=== PATIENT | female | born 1950 | race Caucasian/White ===

== ENCOUNTER 2022-09-24 10:57 | Outpatient (OUT) | payer MEDICARE, SELFPAY ==
--- NOTE | 2022-09-24 10:59 | VEIN_ITS ---
Patient: KENAN CHASE Exam Date: 09/24/2022 : 1950 Gender:F Ordering : DR ALFRED GRIFFITH M.D. Admission #: [id number] Family : Order #: [id number] CLICK HERE TO VIEW EXAM RADIOLOGY REPORT PROCEDURE: [facility] - OFFICE VISIT FOLLOW UP COMPARISON: None. PROGRESS NOTES: The patient reports that some improvement in left anterior espana wound, but wound has not cleared. The patient has been cleaning wound area and applying hydrocortisone cream and antibiotic cream. Physical exam demonstrates a 1.5 cm oval lesion with yellowish scab and mild surrounding erythema; no pus or drainage. IMPRESSION: 1. Since wound has persisted, patient will be placed on an antibiotic (Keflex 500 mg p.o. b.i.d. times 10 days). 2. Patient will be following up with wound clinic for left leg issues. Patient was instructed to have wound center also assess her right leg if wound is still present. Patient will follow-up with us at the veins center as needed. Nurse notes, history and physical were reviewed and confirmed, see attached forms. The nurse was present throughout the physical exam and consultation Dictated by: Kedar Reich M.D. on 09/24/2022 at 11:45 Approved by: Kedar Reich M.D. on 09/24/2022 at 11:49
== END 2022-09-24 10:58 ==
LOC: VC 10:57
PROVIDERS: PCP Radiology Diagnostic Radiology; Visit Provider Radiology Diagnostic Radiology
DX: I83.813 Varicose veins of bilateral lower extremities with pain (principal)
CPT/HCPCS: G0463

== ENCOUNTER 2022-09-30 10:51 | Outpatient (OUT) | payer MEDICARE, SELFPAY | END 2022-09-30 10:52 | disposition home or self-care (01) | LOC: WC 10:51 | PROVIDERS: PCP Family Medicine; Visit Provider Podiatrist Foot & Ankle Surgery | DX: L89.512 Pressure ulcer of right ankle, stage 2 (principal) | CPT/HCPCS: 11042; A6213 ==

== ENCOUNTER 2022-10-10 10:39 | Outpatient (OUT) | payer MEDICARE, SELFPAY | END 2022-10-10 10:40 | disposition home or self-care (01) | LOC: WC 10:39 | PROVIDERS: PCP Family Medicine; Visit Provider Podiatrist Foot & Ankle Surgery | DX: L89.512 Pressure ulcer of right ankle, stage 2 (principal); M13.80 Other specified arthritis, unspecified site; R09.89 Other specified symptoms and signs involving the circulatory and respiratory systems; K21.9 Gastro-esophageal reflux disease without esophagitis; I10 Essential (primary) hypertension; E03.9 Hypothyroidism, unspecified; I87.2 Venous insufficiency (chronic) (peripheral); W01.198A Fall on same level from slipping, tripping and stumbling with subsequent striking against other object, initial encounter | CPT/HCPCS: 97605 ==

== ENCOUNTER 2022-10-24 10:57 | Outpatient (OUT) | payer MEDICARE, SELFPAY | END 2022-10-24 10:58 | disposition home or self-care (01) | LOC: WC 10:57 | PROVIDERS: PCP Family Medicine; Visit Provider Podiatrist Foot & Ankle Surgery | DX: L89.512 Pressure ulcer of right ankle, stage 2 (principal) | CPT/HCPCS: A6213; G0463 ==

== ENCOUNTER 2022-10-31 10:15 | Outpatient (OUT) | payer MEDICARE, SELFPAY | END 2022-10-31 10:16 | disposition home or self-care (01) | LOC: WC 10:15 | PROVIDERS: PCP Family Medicine; Visit Provider Podiatrist Foot & Ankle Surgery | DX: L89.512 Pressure ulcer of right ankle, stage 2 (principal) | CPT/HCPCS: A6213; G0463 ==

== ENCOUNTER 2022-11-18 13:16 | Outpatient (OUT) | payer MEDICARE, SELFPAY | END 2022-11-18 13:17 | disposition home or self-care (01) | LOC: WC 13:16 | PROVIDERS: PCP Family Medicine; Visit Provider Podiatrist Foot & Ankle Surgery | DX: L89.512 Pressure ulcer of right ankle, stage 2 (principal) | CPT/HCPCS: A6213; G0463 ==

== ENCOUNTER 2022-11-27 11:12 | Outpatient (OUT) | payer MEDICARE, SELFPAY ==
[2022-11-27 11:45] LABS: Bacteria Urine TRACE #/HPF (NONE SEEN); Cast Seen? NONE SEEN #/LPF (NONE SEEN); Crystals Seen? None Seen #/HPF (None Seen); Mucus Urine NONE SEEN (NONE SEEN); RBC Urine 0-2 #/HPF (0-2); Squamous Epithelial Cell Urine FEW #/LPF (NONE/RARE); Urine Culture Indicated ALREADY ORDERED
== END 2022-11-27 11:13 | disposition home or self-care (01) ==
LOC: LAB 11:14
PROVIDERS: PCP Family Medicine; Visit Provider Family Medicine
DX: N39.0 Urinary tract infection, site not specified (principal)
CPT/HCPCS: 81001; 87086

== ENCOUNTER 2022-12-05 09:10 | Outpatient (OUT) | payer MEDICARE, SELFPAY | END 2022-12-05 09:11 | disposition home or self-care (01) | LOC: WC 09:10 | PROVIDERS: PCP Family Medicine; Visit Provider Podiatrist Foot & Ankle Surgery | DX: L89.512 Pressure ulcer of right ankle, stage 2 (principal) | CPT/HCPCS: 11042; A6213 ==

== ENCOUNTER 2023-01-02 10:14 | Outpatient (OUT) | payer MEDICARE, SELFPAY | END 2023-01-02 10:15 | disposition home or self-care (01) | LOC: WC 10:14 | PROVIDERS: PCP Family Medicine; Visit Provider Podiatrist Foot & Ankle Surgery | DX: L89.512 Pressure ulcer of right ankle, stage 2 (principal) | CPT/HCPCS: A6213; G0463 ==

== ENCOUNTER 2023-01-07 07:37 | Outpatient (RCR) | payer MEDICARE, SELFPAY ==
[2023-01-07 10:50] VITALS: BP 131/84; PULSE 100; RESP 20; TEMP 36.2; O2SAT 97
--- NOTE | 2023-01-07 11:08 | PC.NURSE ---
1050: Pt to [facility] amb. using walker to ambulate. Seated on edge of bed. VSS. Pt. removes bottoms and to supine position on bed. Using sterile technique, pt. straight cath'd for moderate amount clear yellow urine. Speicimen collected and sent to lab. Pt. tolerated with minimal c/o discomfort. Given wash cloth and towel to clean perineum. 1108: Pt. d/c'd amb. to home. Denies c/o.
== END 2023-01-17 23:59 | disposition home or self-care (01) ==
LOC: INF 07:37
PROVIDERS: PCP Family Medicine; Visit Provider Family Medicine
DX: R30.0 Dysuria (principal); R35.89 Other polyuria
CPT/HCPCS: 51701; 87086

== ENCOUNTER 2023-01-27 15:39 | Outpatient (OUT) | payer MEDICARE, SELFPAY | END 2023-01-27 15:40 | disposition home or self-care (01) | LOC: WC 15:39 | PROVIDERS: PCP Family Medicine; Visit Provider Podiatrist Foot & Ankle Surgery | DX: L89.512 Pressure ulcer of right ankle, stage 2 (principal); L89.892 Pressure ulcer of other site, stage 2 | CPT/HCPCS: 11042; A6213 ==

== ENCOUNTER 2023-02-03 10:18 | Outpatient (OUT) | payer MEDICARE, SELFPAY ==
--- NOTE | 2023-02-03 10:27 | MR_ITS ---
The [address] [address] Patient Name: KENAN CHASE MRN: [id number] date: 1950 Sex: F Assigned Patient Location: MRI Current Patient Location: MRI Accession/Order Number: [id number] Exam Date: 02/03/2023 10:45 Report Date: 02/03/2023 14:38 At the request of: SARA VICK Procedure: MR lumbar spine wo con Exam: MR scan of the lumbar spine without contrast. TECHNIQUE: Sagittal T1, DONNA T2, STIR, axial T1 and T2 images without contrast performed through the lumbar spine. COMPARISON: MR scan performed 12/09/2021. FINDINGS: Facet screws and Hollins rods T11, T12, L1, L3, and L4. Left lateral threaded screws and plate L2, L3. Fusion of the L4 and L5 vertebral bodies. Large air-fluid level within the disc space at L5-S1. Bilateral laminectomy defect L2, L3, L4. Bilateral laminotomy defect L2, L3, L4. Bilateral foraminal stenosis L5-S1. L5-S1: Facet arthropathy and diffuse disc bulge and trefoil thecal sac. L4-L5: No evidence of stenosis. L3-L4: No evidence of stenosis. L2-L3: No evidence of stenosis. L1-L2: No evidence of stenosis. When compared to the prior examination the air-fluid level within the disc space at L5-S1 is new. The large disc protrusion is new. MR/MR lumbar spine wo con IMPRESSION: 1. Large central disc protrusion at the L5-S1 level superimposed on facet arthropathy and trefoil thecal sac. 2. Bilateral foraminal stenosis L5-S1. 3. Extensive postsurgical change lumbar spine without central spinal canal stenosis. Electronically authenticated by: Madeleine IRAHETA Date: 02/03/2023 14:38
== END 2023-02-03 10:19 | disposition home or self-care (01) ==
LOC: MRI 10:18
PROVIDERS: PCP Family Medicine; Visit Provider Family Medicine
DX: M48.061 Spinal stenosis, lumbar region without neurogenic claudication (principal); M51.27 Other intervertebral disc displacement, lumbosacral region; M48.07 Spinal stenosis, lumbosacral region
CPT/HCPCS: 72148

== ENCOUNTER 2023-02-16 11:16 | Outpatient (OUT) | payer MEDICARE, SELFPAY | END 2023-02-16 11:17 | disposition home or self-care (01) | LOC: WC 11:17 | PROVIDERS: PCP Family Medicine; Visit Provider Physician Assistant | DX: L89.892 Pressure ulcer of other site, stage 2 (principal); L89.512 Pressure ulcer of right ankle, stage 2 | CPT/HCPCS: 11042; A6213 ==

== ENCOUNTER 2023-03-10 09:39 | Outpatient (OUT) | payer MEDICARE, SELFPAY | END 2023-03-10 09:40 | disposition home or self-care (01) | LOC: WC 09:39 | PROVIDERS: PCP Family Medicine; Visit Provider Podiatrist Foot & Ankle Surgery | DX: L89.512 Pressure ulcer of right ankle, stage 2 (principal); L84 Corns and callosities; I73.89 Other specified peripheral vascular diseases | CPT/HCPCS: 11042; A6213 ==

== ENCOUNTER 2023-04-06 13:19 | Outpatient (OUT) | payer MEDICARE, SELFPAY | END 2023-04-06 13:20 | disposition home or self-care (01) | LOC: WC 13:19 | PROVIDERS: PCP Family Medicine; Visit Provider Physician Assistant | DX: L97.512 Non-pressure chronic ulcer of other part of right foot with fat layer exposed (principal); L89.512 Pressure ulcer of right ankle, stage 2 | CPT/HCPCS: 11042; A6213 ==

== ENCOUNTER 2023-04-28 10:57 | Outpatient (OUT) | payer MEDICARE, SELFPAY ==
--- OUTSIDE RECORDS SUMMARY | 2023-04-28 11:01 | XMS_ITS | CCD ---
Author Name Unknown Address [address] [place] [address] [facility] Care Team Providers Care Auto Winder Name Role Phone Praveen Lopez Unavailable Unavailable BRUCE MATHEW Unavailable Unavailable SARA VICK Unavailable Unavailable PHYSICIAN, DEFAULT Unavailable Unavailable PHYSICIAN, DEFAULT Unavailable Unavailable SARA VICK Unavailable Unavailable Sara Vick~[phone] UNKNOWN Admitting Unavailable Sara Vick~[phone] UNKNOWN Attending Unavailable Sara Vick~[phone] UNKNOWN Referring Unavailable Sara Vick Primary Care Provider [phone] Trino Yoo Attending Provider Larry Brown Unavailable Sara Vick Primary Care Physician [phone] Lynn Salas Unavailable Unavailable Liam, Flor Unavailable Unavailable ADELE FLEMING Attending Unavailable SARA VICK Primary Care Unavailable MD Sara Vick Primary Care Provider [phone] MD Sara Vick Attending Provider DEEPALI JANSEN Consulting Unavailable DEEPALI JANSEN Admitting Unavailable DEEPALI JANSEN Attending Unavailable DR SARA OVERTON Primary Care Unavailable ADELE FLEMING Attending Unavailable ADELE FLEMING Admitting Unavailable DR SARA OVERTON Primary Care Unavailable ADELE FLEMING Admitting Unavailable ADELE FLEMING Attending Unavailable DR SARA OVERTON Primary Care Unavailable DR SARA OVERTON Consulting Unavailable NICANOR Mohan, DR RUIZ Primary Care Unavailable DR SARA OVERTON Admitting Unavailable NICANOR Mohan, DR RUIZ Attending Unavailable ANABEL, SHAWANDA Admitting Unavailable ANABEL, SHAWANDA Attending Unavailable ANABEL, SHAWANDA Consulting Unavailable HOY ., DR RUIZ Primary Care Unavailable READERSARA Consulting Unavailable HIGHLANDER, PETER D Admitting Unavailable HIGHLANDER, PETER D Attending Unavailable HOY ., DR RUIZ Primary Care Unavailable HIGHLANDER, PETER D Admitting Unavailable HIGHLANDER, PETER D Attending Unavailable HOY ., DR RUIZ Primary Care Unavailable WEST, DR ALFRED Deal Consulting Unavailable WEST, DR ALFRED Deal Admitting Unavailable WEST, DR ALFRED Deal Attending Unavailable HOY ., DR RUIZ Primary Care Unavailable WEST, DR ALFRED Deal Consulting Unavailable WEST, DR ALFRED Deal Admitting Unavailable WEST, DR ALFRED Deal Attending Unavailable HOY ., DR RUIZ Primary Care Unavailable WEST, DR ALFRED Deal Attending Unavailable WEST, DR ALFRED Deal Consulting Unavailable WEST, DR ALFRED Deal Admitting Unavailable HOY ., DR RUIZ Primary Care Unavailable WEST, DR ALFRED Deal Attending Unavailable WEST, DR ALFRED Deal Consulting Unavailable WEST, DR ALFRED Deal Admitting Unavailable HOY ., DR RUIZ Primary Care Unavailable WEST, DR ALFRED eDal Attending Unavailable WEST, DR ALFRED Deal Consulting Unavailable WEST, DR ALFRED Deal Admitting Unavailable HOY ., DR RUIZ Primary Care Unavailable WEST, DR ALFRED Deal Consulting Unavailable WEST, DR ALFRED Deal Admitting Unavailable WEST, DR ALFRED Deal Attending Unavailable HOY ., DR RUIZ Primary Care Unavailable ZIEBER, DR JULIO Wu Consulting Unavailable WEST, DR ALFRED Deal Consulting Unavailable ELZBIETA, DEEPALI Admitting Unavailable ELZBIETADEEPALI Attending Unavailable HOY ., DR RUIZ Primary Care Unavailable ELZBIETADEEPALI Consulting Unavailable HIGHLANDER, ADELE Means Attending Unavailable HIGHLANDER, PETER D Admitting Unavailable HOY ., DR RUIZ Primary Care Unavailable WEST, DR ALFRED Deal Attending Unavailable WEST, DR ALFRED Deal Consulting Unavailable WEST, DR AFLRED Deal Admitting Unavailable HOY ., DR RUIZ Primary Care Unavailable ZIEBER, DR JULIO Wu Consulting Unavailable WEST, DR ALFRED Deal Attending Unavailable WEST, DR ALFRED Deal Consulting Unavailable WEST, DR ALFRED Deal Admitting Unavailable HOY ., DR RUIZ Primary Care Unavailable REINECK, DR AKIL Salvador Consulting Unavailabl e REINECK, DR AKIL Salvador Admitting Unavailabl e REINECK, DR AKIL Salvador Attending Unavailabl e HOY ., DR RUIZ Primary Care Unavailable MARI LORENZO Consulting Unavailable HOY ., DR RUIZ Consulting Unavailable HOY ., DR SARA Admitting Unavailable HOY ., DR RUIZ Attending Unavailable HOY ., DR RUIZ Primary Care Unavailable HIGHLANDER, PETER D Admitting Unavailable HIGHLANDER, PETER D Attending Unavailable HOY ., DR RUIZ Primary Care Unavailable HIGHLANDER, PETER D Admitting Unavailable HIGHLANDER, PETER D Attending Unavailable HOY ., DR RUIZ Primary Care Unavailable HIGHLANDER, PETER D Attending Unavailable HIGHLANDER, PETER D Admitting Unavailable HOY ., DR RUIZ Primary Care Unavailable HIGHLANDER, PETER D Admitting Unavailable HIGHLANDER, PETER D Attending Unavailable HOY ., DR RUIZ Primary Care Unavailable HIGHLANDER, PETER D Admitting Unavailable HIGHLANDER, PETER D Attending Unavailable HIGHLANDER, PETER D Consulting Unavailable HOY ., DR RUIZ Primary Care Unavailable MAGNOLIA ., NIKHIL PARKS Consulting Unavailable EARL TAYLOR Consulting Unavailable GENESIS II, DENIS Consulting Unavailable ERICK ., PO Admitting Unavailable ERICK ., PO Attending Unavailable ZIEBER, DR JULIO Wu Consulting Unavailable HOY ., DR RUIZ Primary Care Unavailable ERICK ., PO Consulting Unavailable HIGHLANDER, PETER D Admitting Unavailable HIGHLANDER, PETER D Attending Unavailable HIGHLANDER, PETER D Consulting Unavailable HOY ., DR RUIZ Primary Care Unavailable HOY ., DR RUIZ Consulting Unavailable HOY ., DR RUIZ Admitting Unavailable HOY ., DR RUIZ Attending Unavailable HOY ., DR RUIZ Primary Care Unavailable HIGHLANDER, PETER D Attending Unavailable HIGHLANDER, PETER D Admitting Unavailable WEST, DR ALFRED Deal Consulting Unavailable HOY ., DR RUIZ Primary Care Unavailable ZIEBER, DR JULIO Wu Consulting Unavailable HIGHLANDER, PETER D Consulting Unavailable HIGHLANDER, PETER D Attending Unavailable HIGHLANDER, PETER D Admitting Unavailable ZIEBER, DR JULIO Wu Consulting Unavailable HOY ., DR RUIZ Primary Care Unavailable HIGHLANDER, PETER D Consulting Unavailable PERFECTO BURCH Referring Unavailable PERFECTO BURCH Attending Unavailable ASRA VIKC Primary Care Unavailable PERFECTO BURCH Attending Unavailable SARA VICK Primary Care Unavailable Sorin DICKERSON Referring Unavailable PERFECTO BURCH Attending Unavailable SARA VICK Primary Care Unavailable PERFECTO BURCH Referring Unavailable Sara Vick MD Primary Care Provider Julio Ferrara Consulting Unavailable Gunner Alcazarinder S Admitting Unavailable Francisco Alcazar S Attending Unavailable Julio Ferrara Consulting Unavailable Hepzibah, Julio Consulting Unavailable Hepzibah, Julio Consulting Unavailable Hepzibah, Julio Consulting Unavailable Hepzibah, Julio Consulting Unavailable Hepzibah, Julio Consulting Unavailable Hepzibah, Julio Consulting Unavailable Hepzibah, Julio Consulting Unavailable Wm Nagy Attending Unavailable Flavio Castillo Attending Unavailable Alley Naranjo Admitting Unavailable WindJacque cramericia Attending Unavailable Jose A Alley Referring Unavailable Dominique Shane Unavailable MD Sara Vick Primary Care Provider [phone] Larry Brown Attending Provider Sara Vick Primary Care Unavailable Larry Brown Attending Unavailable Larry Brown Admitting Unavailable Sara Vick Primary Care Unavailable Sara Vick Admitting Unavailable Sara Vick Attending Unavailable Sara Vick Primary Care Unavailable Deepali Jansen Attending Unavailable Deepali Jansen Admitting Unavailable Sara Vick Primary Care Unavailable Larry Brown Attending Unavailable Larry Brown Admitting Unavailable Unavailable Unavailable Unavailable Allergies Allergy Classification Reported Allergen(s) Allergy Type Date of Onset Reaction(s) Facility (1 source) Sulfa Antibiotics 06-19-19 18 [facility] (6 sources) Sulfonamides (Antibiotic); Translations: [SULFA (SULFONAMIDE ANTIBIOTICS)] Propensity to adverse reactions to drug (disorder) 07-17-19 07 [facility] Repository (3 sources) Sulfonamides (Antibiotic) Drug allergy (disorder) 08-02-19 10 [facility] Repository (4 sources) Sulfamethoxazole; Translations: [sulfamethoxazole ] Drug Allergy Cutaneous eruption (morphologic abnormality) [facility] Repository (2 sources) Sulfur; Translations: [Sulfur] Drug Allergy [facility] Repository (14 sources) Sulfacetamide Drug Allergy 09-19-19 Rash [employer] Other (2 sources) metroNIDAZOLE Drug Allergy 09-19-19 23 Dyspepsia [facility] Medications Current Medications Medication Drug Class(es) Dates Sig (Normalized) Sig (Original) acetaminophen 325 mg oral tablet (3 sources) Start: 09-14-2019 take 2 tablets by mouth every four hours as needed for pain Tylenol 325 mg Tab 650 mg = 2 tab(s), Oral, q4hr, PRN Breakthrough Pain, Refills(s) 0 Start Date: 09/14/19 Status: Ordered Start: 06-18-2017 take 2 tablets by mo [facility] every four hours as needed for pain Tylenol Tablet 325 MG 2 tablet Tablet Oral Give 2 tablet by mouth every 4 hours as needed for take as needed for mild pain or fever 06/18/2017 20:15:00 acetaminophen 325 mg / HYDROcodone bitartrate 5 mg oral tablet (10 sources) Opioid Agonist Start: 04-23-2023 take 1 tablet by mouth once daily as needed HYDROcodone-Acetaminophen 5-325 MG 1 tablet as needed Orally once daily (*do not fill until 04/23/22) for 30 days G89.29 Chronic pain Apr, Active Start: 03-25-2023 Hydrocodone-Ac etaminophen Active 1 TAB PO As Directed March 25, 2023 12:00am Start: 03-06-2023 take 1 tablet by donna once daily as needed HYDROcodone-Acetaminophen 5-325 MG 1 tab let as needed Orally daily (*do not fill until 03/12/2023) for 30 days Feb, Active Start: 02-10-2023 take 1 tablet by donna th every twenty-four hours HYDROcodone-Acetaminophen 5-325 MG 1 tab let as needed Orally daily for 30 days G89.29 Chronic pain Jan, Active Start: 12-12-2022 take 1 tablet by donna every twenty-four hours HYDROcodone-Acetaminophen 5-325 MG 1 tab let as needed Orally daily for 30 days Dec, Active Start: 03-08-2022 [place] 325 mg-5 mg oral tablet 1 tab(s), Oral, q4hr for pain, 12 tab(s), Refill(s) 0, [facility]/pharmacy #[id number], 172, cm, 03/08/22 13:49:00 EST, Height/Length Dosing, 103.6, kg, 03/08/22 13:49:00 EST, Weight Dosing Start Date: 03/08/22 Status: Ordered Albuterol (Eqv-Ventolin HFA) 90 mcg/inh inhalation aerosol (1 source) Start: 07-26-2022 take 2 puff(s) by inhalation every six hours Albuterol (Eqv-Ventolin HFA) 90 mcg/inh inhalation aerosol 2 puff(s), Inhalation, q6hr Shortness of breath or wheezing, Refill(s) 0 Start Date: 07/26/22 Status: Ordered alendronic acid 70 mg oral tablet (15 sources) Bisphosphonate Start: 07-08-2022 alendronate 70 MG tablet take 1 tablet by mouth once damion y Alendronate Sodium 70 MG 1 tablet 30 minutes before the first food, beverage or medicine of the day with plain water Orally Active aspirin 81 mg delayed release oral tablet (15 sources) Platelet Aggregation Inhibitor, Nonsteroidal Anti-inflammatory Drug Start: 07-27-2022 take 1 tablet by mouth once daily aspirin 81 mg Oral EC Tab 81 mg = 1 tab(s), Oral, Daily, # 30 tab(s), Refills(s) 0, Pharmacy: [facility]/pharmacy #[id number], 172.7, cm, 07/26/22 11:43:00 EDT, Height/Length Dosing, 93.5, kg, 07/27/22 10:37:00 EDT, Weight Dosing Start Date: 07/27/22 Status: Ordered Start: 05-08-2020 End: 09-10-2022 take 81 mg by mouth twice daily Aspirin Discontinued 81 MG PO Twice daily 0 May 08, 2020 12:00am September 10, 2022 10:47am Start: 05-02-2020 Aspirin 81 MG 1 tablet daily, starting day after discharge from hospital Orally twice a day for 14 days *DO NOT START PRIOR TO SURGERY. To be used post op TKA for DVT prophylaxis Apr, Not-Taking/PRN Biscolax Suppository (1 source) Start: 06-18-2017 Biscolax Suppository 1 suppository Suppository Rectal Insert 1 suppository rectally every 24 hours as needed for CONSTIPATION IF MIRALAX NOT EFFECTIVE 06/18/2017 17:15:00 cefadroxil 500 mg oral capsule (1 source) Cephalosporin Antibacterial Start: 07-26-2022 take 1 capsule by mouth every twelve hours cefadroxil 500 mg Cap 500 mg = 1 cap(s), Oral, q12hr, Refills(s) 0 Start Date: 07/26/22 Status: Ordered cetirizine hydrochloride 10 mg oral tablet (1 source) Histamine-1 Receptor Antagonist Start: 06-18-2017 take 1 tablet by mouth every twenty-four hours as needed ZyrTEC Allergy Tablet 10 MG 10 mg Tablet Oral Give 10 mg by mouth every 24 hours as needed for take as needed for allergy symptoms take as needed at bedtime 06/18/2017 20:15:00 cholecalciferol 0.025 mg oral capsule (19 sources) Vitamin D Start: 04-24-2020 take 1 capsule by mouth once daily Cholecalciferol (Vitamin D3) (Vitamin D3) 25 mcg (1,000 unit) Capsule Active 25 MCG PO Daily April 24, 2020 12:00am Start: 06-19-2017 take 1 tablet by donna once daily Vitamin D3 Tablet 2000 UNIT 1 tablet Tablet Oral Give 1 tablet by mouth one time a day for supplement 06/19/2017 9:00:00 take 1 capsule by mo [facility] every twenty-four hours Vitamin D3 50 MCG (2000 UT) 1 capsule Orally Once a day Active Collagenase 250 UNIT/GM (9 sources) Collagenase 250 UNIT/GM 1 application Externally Once a day Active cyclobenzaprine hydrochloride 10 mg oral tablet (1 source) Muscle Relaxant Start: take 1 tablet by mouth every eight hours as needed for muscle spasms Cyclobenzaprine HCl Tablet 10 MG 10 mg Tablet Oral GIVE ONE TAB BY MOUTH EVERY 8 HOURS NEEDED FOR MUSCLE SPASMS 06/18/2017 20:30:00 diclofenac sodium 75 mg delayed release oral tablet (1 source) Nonsteroidal Anti-inflammatory Drug Start: take 1 tablet by mouth twice daily Diclofenac Sodium Tablet Delayed Release 75 MG 1 tablet Tablet Delayed Release Oral GIVE ONE TAB BY MOUTH TWICE DAILY FOR ANTI INFLAMMATORY 06/19/2017 9:00:00 Diff-Stat Capsule (1 source) Start: take 1 capsule by mouth once daily Diff-Stat Capsule 1 capsule Capsule Oral Give 1 capsule orally one time a day for Prophylatic 06/19/2017 9:00:00 esomeprazole 40 mg delayed release oral capsule (12 sources) Proton Pump Inhibitor take 1 capsule by mouth every twenty-four hours NexIUM 40 MG 1 capsule Orally Once a day Active gabapentin 600 mg oral tablet (20 sources) Anti-epileptic Agent Start: 01-05-2 021 take 1200 mg by mouth twice daily Gabapentin Active 1200 MG PO Twice daily April 24, 2020 12:00am Start: 06-19-2017 take 1 tablet by donna th twice daily gabapentin 600 mg Tab 600 mg = 1 tab(s), Oral, BID Start Date: 06/26/17 Status: Ordered hydrOXYzine pamoate 25 mg oral capsule (2 sources) Antihistamine Start: 05-08-2020 take 1 capsule by mouth every six hours Hydroxyzine Pamoate (Vistaril) 25 mg capsule Active 25 MG PO Q6H May 08, 2020 12:00am lidocaine 0.05 mg/mg medicated patch (8 sources) Antiarrhythmic, Amide Local Anesthetic Start: 12-12-2022 Lidoderm 5 % 1 patch remove after 12 hours Externally Once a day for 30 days Nov, Active losartan potassium 100 mg oral tablet (20 sources) Angiotensin 2 Receptor Mike Start: 06-19-2017 take 100 mg by mouth once daily Losartan Active 100 MG PO Daily April 24, 2020 12:00am Losartan [facility] um Active meloxicam 15 mg oral tablet (20 sources) Nonsteroidal Anti-inflammatory Drug Start: 07-01-2018 take 15 mg by mouth once daily Meloxicam Active 15 MG PO Daily April 24, 2020 12:00am pantoprazole 40 mg delayed release oral tablet (20 sources) Proton Pump Inhibitor Start: 09-14-2019 take 40 mg by mouth once daily Pantoprazole Active 40 MG PO Daily April 24, 2020 12:00am Start: 06-19-2017 take 1 tablet by donna th once daily Pantoprazole Sodium Tablet Delayed Release 40 MG 40 mg Tablet Delayed Release Oral GIVE ONE TAB BY MOUTH EVERY DAY FOR ULCER MEDICATIONS 06/19/2017 9:00:00 polyethylene glycol 3350 (1 source) Osmotic Laxative Start: 06-19-2017 take 17 g by mouth once daily for constipation GlycoLax Powder 17 gram Powder Oral Give 17 gram by mouth one time a day for constipation (in Liquid) 06/19/2017 9:00:00 purified protein derivative of tuberculin (2 sources) Tuberculosis Skin Test, Skin Test Antigen Start: 06-18-2017 End: 07-02-2017 Tuberculin PPD Solution 5 UNIT/0.1ML 0.1 ml Solution Intradermal Inject 0.1 ml intradermally one time a day every 9 day(s) for PPD Test for 2 Weeks Read in 48 hours. Repeat in 9 days if no reaction. 06/18/2017 21:00:00 07/02/2017 20:59:00 Start: 06-18-2017 End: 06-20-2017 Tuberculin PPD Solution 5 UN IT/0.1ML 0.1 ml Solution Intradermal Inject 0.1 ml intradermally one time a day every 9 day(s) for PPD Test for 2 Weeks Read in 48 hours. Repeat in 9 days if no reaction. 06/18/2017 21:00:00 06/20/2017 0:07:00 Aborted levothyroxine sodium 0.125 mg oral tablet (20 sources) l-Thyroxine Start: 04-24-2020 take 125 ug by mouth once daily Levothyroxine Active 125 MCG PO Daily April 24, 2020 12:00am Start: 06-26-2017 take 1 capsule by mo [facility] once daily levothyroxine 125 mcg (0.125 mg) oral capsule 125 microgram = 1 cap(s), Oral, Daily Start Date: 06/26/17 Status: Ordered Start: 06-19-2017 take 1 tablet by donna once daily for thyroid dysfunction Synthroid Tablet 125 MCG 125 mcg Tablet Oral GIVE ONE TAB BY MOUTH EVERY DAY FOR THYROID AGENT 06/19/2017 6:00:00 take 1 tablet by donna once daily in the morning Levothyroxine Sodium 125 MCG 1 tablet in the morning on an empty stomach Orally Once a day Active tiZANidine 4 mg oral tablet (16 sources) Central alpha-2 Adrenergic Agonist Start: 07-26-2022 take 2 tablets by mouth every eight hours as needed for muscle spasms tiZANidine 4 mg Tab 8 mg = 2 tab(s), Oral, q8hr, PRN Spasm, Refills(s) 0 Start Date: 07/26/22 Status: Ordered Start: 06-19-2017 take 2 tablets by mo ut twice daily Zanaflex Tablet 4 MG 2 tablet Tablet Oral GIVE 2 TABS (8MG) BY MOUTH TWICE DAILY FOR MUSCLOSKELETAL 06/19/2017 9:00:00 take 1 capsule by mo [facility] every eight hours tiZANidine HCl 4 MG 1 capsule as needed Orally Three times a day Active traMADol hydrochloride 50 mg oral tablet (1 source) Opioid Agonist Start: 06-18-2017 take 1 tablet by mouth every twelve hours as needed for pain TraMADol HCl Tablet 50 MG 1 tablet Tablet Oral Give 1 tablet by mouth every 12 hours as needed for as needed for pain 06/18/2017 20:30:00 vitamin b12 1 mg/ml injectable solution (18 sources) Vitamin B12 Start: 04-24-2020 inject 1000 ug by subcutaneous injection every 30 days Cyanocobalamin (Vitamin B-12) Active 1000 MCG SUBCUT Q30D April 24, 2020 12:00am Start: 09-14-2019 cyanocobalamin 1000 mcg/mL Inj 1,000 microgram, IntraMuscular, qMonth, Refills(s) 0 Start Date: 09/14/19 Status: Ordered Cyanocobalamin 1 000 MCG/ML 1 ml Orally 1 x per month injection Active Completed/Discontinued Medications Medication Drug Class(es) Dates Sig (Normalized) Sig (Original) acetaminophen 325 mg / oxyCODONE hydrochloride 5 mg oral tablet (3 sources) Opioid Agonist Start: 05-08-2020 End: 09-10-2022 take 1 tablet by mouth every four to six hours Oxycodone-Acetamino phen (Percocet) 5-325 mg tablet Discontinued 1 - 2 TAB PO EVERY 4-6 HOURS 40 7 May 08, 2020 September 10, 2022 10:49am Start: 06-18-2017 take 1 tablet by donna th every six hours as needed for pain and pain, then take 2 tablets by mouth every six hours as needed for pain and pain Percocet Tablet 5-325 MG Tablet Oral Give 1 tablet by mouth every 6 hours as needed for as needed for pain do not exceed 12 tablets a day AND Give 2 tablet by mouth every 6 hours as needed for as needed for pain do not exceed 12 tablets a day 06/18/2017 20:15:00 ciprofloxacin 500 mg oral tablet (2 sources) Quinolone Antimicrobial Start: 05-07-2020 End: 09-10-2022 take 500 mg by mouth twice daily Ciprofloxacin Hcl Discontinued 500 MG PO Twice daily May 07, 2020 12:00am September 10, 2022 10:47am docusate sodium 100 mg oral capsule (2 sources) Start: 05-08-2020 End: 09-10-2022 take 1 capsule by mouth twice daily Docusate Sodium (Dok) 100 mg Capsule Discontinued 100 MG PO Twice daily 0 May 08, 2020 12:00am September 10, 2022 10:48am furosemide 20 mg oral tablet (20 sources) Loop Diuretic Start: 04-24-2020 End: 03-25-2023 Furosemide Discontinued 20 MG PO As Directed April 24, 2020 12:00am March 25, 2023 10:11am Start: 07-01-2018 take 1 tablet by donna th every other week furosemide 20 mg Tab See Instructions, 1 tab(s) Oral q 2 weeks, Refills(s) 0 Start Date: 07/01/18 Status: Ordered ibuprofen 800 mg oral tablet (4 sources) Nonsteroidal Anti-inflammatory Drug Start: 04-24-2020 End: 09-10-2022 take 800 mg by mouth four times daily Ibuprofen Discontinued 800 MG PO Four times daily April 24, 2020 12:00am September 10, 2022 10:49am Vitamin D3 1000 intl units oral tablet (2 sources) Start: 09-20-2019 take 1 tablet by mouth once daily Vitamin D3 1000 intl units oral tablet 1,000 International_Unit = 1 tab(s), Oral, Daily Start Date: 09/20/19 Status: Ordered Problems Active Problems Problem Classification Problem Date Documented Da te Episodic/Chronic Abdominal hernia (2 sources) Hiatal hernia 07-01-2013 Episodic Allergic reactions (2 sources) Vesicular eczema 09-14-2019 Episodic Anxiety disorders (4 sources) Anxiety; Translations: [Mixed anxiety and depressive disorder] 07-01-2013 Chronic Chronic ulcer of skin (16 sources) Pressure ulcer of right ankle, stage 2; Translations: [Pressure ulcer of right ankle, stage 1] Onset: 2 Chronic Complication of device; implant or graft (5 sources) Mechanical complication of internal joint prosthesis; Translations: [Pain due to internal orthopedic prosthetic devices, implants and grafts, sequela] Onset: 3 06-26-2017 Episodic Complications of surgical procedures or medical care (4 sources) Other complications of procedures, not elsewhere classified, initial encounter; Translations: [OTH COMPLICATIONS PROC NEC INITIAL] Onset: 3 Episodic Conditions associated with dizziness or vertigo (1 source) Dizziness and giddiness; Translations: [Dizziness and giddiness] Onset: 3 Episodic Deficiency and other anemia (1 source) Iron deficiency anemia; Translations: [Iron deficiency anemia, unspecified] Onset: 3 Episodic Diabetes mellitus with complications (5 sources) Type 2 diabetes mellitus with foot ulcer; Translations: [Type 2 diabetes mellitus with other skin ulcer] Onset: 3 Chronic Esophageal disorders (3 sources) Gastroesophageal reflux disease; Translations: [Gastro-esophageal reflux disease without esophagitis] Onset: 3 01-13-2017 Chronic Essential hypertension (6 sources) Hypertensive disorder; Translations: [Essential hypertension] Onset: 3 07-01-2013 Chronic Joint disorders and dislocations; trauma-related (2 sources) Dislocation of hip joint; Translations: [Unspecified dislocation of unspecified hip, initial encounter] Onset: 2 Episodic Nutritional deficiencies (2 sources) Cobalamin deficiency 09-14-2019 Episodic Osteoarthritis (17 sources) Osteoarthritis of right knee joint; Translations: [Unilateral primary osteoarthritis, right knee] Onset: 3 07-01-2013 Chronic Other aftercare (1 source) 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; Translations: [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] Onset: 3 Episodic Other bone disease and musculoskeletal deformities (2 sources) 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 Other circulatory disease (1 source) Other specified symptoms and signs involving the circulatory and respiratory systems; Translations: [OTH SPEC SX SIGNS INVLV CIRC RS] Onset: 3 Episodic Other connective tissue disease (12 sources) History of right total knee replacement; Translations: [Presence of right artificial knee joint] Chronic Other connective tissue disease (2 sources) History of total knee arthroplasty; Translations: [Presence of right artificial knee joint] 05-08-2020 Chronic Other connective tissue disease (1 source) Presence of right artificial knee joint; Translations: [PRESENCE RT ARTIFICIAL KNEE JOINT] Onset: 3 Chronic Other connective tissue disease (1 source) Presence of left artificial hip joint; Translations: [PRESENCE LEFT ARTIFICIAL HIP JOINT] Onset: 3 Chronic Other connective tissue disease (2 sources) Impingement syndrome of shoulder region 09-14-2019 Episodic Other diseases of veins and lymphatics (14 sources) Peripheral venous insufficiency; Translations: [Venous insufficiency (chronic) (peripheral)] 09-14-2019 Episodic Other diseases of veins and lymphatics (5 sources) Venous insufficiency (chronic) (peripheral); Translations: [VENOUS INSUFF CHRONIC PERIPHERAL] Onset: 3 Episodic Other fractures (12 sources) Closed fracture of one rib; Translations: [Fracture of one rib, left side, initial encounter for closed fracture] Episodic Other nervous system disorders (12 sources) Chronic pain; Translations: [Other chronic pain] Chronic Other nervous system disorders (6 sources) Other chronic pain Chronic Other nervous system disorders (2 sources) Neuropathy 10-05-2017 Chronic Other nervous system disorders (1 source) Other specified polyneuropathies; Translations: [OTHER SPECIFIED POLYNEUROPATHIES] Onset: 3 Chronic Other nervous system disorders (1 source) Other chronic pain; Translations: [Other chronic pain] Onset: 3 Chronic Other nervous system disorders (2 sources) Numbness 01-13-2017 Episodic Other non-epithelial cancer of skin (2 sources) Carcinoma in situ of skin of scalp 10-11-2019 Episodic Other non-traumatic joint disorders (1 source) Other specified arthritis, unspecified site; Translations: [OTHER SPECIFIED ARTHRITIS UNS SITE] Onset: 3 Chronic Other nutritional; endocrine; and metabolic disorders (2 sources) Body mass index 30+ - obesity 09-20-2019 Chronic Other nutritional; endocrine; and metabolic disorders (1 source) Morbid obesity; Translations: [Morbid (severe) obesity due to excess calories] Onset: 3 Chronic Other skin disorders (1 source) Disorder of the skin and subcutaneous tissue, unspecified; Translations: [DISORDER SKIN AND SUBQ TISSUE UNS] Onset: 3 Episodic Other skin disorders (1 source) Scar conditions and fibrosis of skin; Translations: [Scar conditions and fibrosis of skin] Onset: 4 Episodic Peripheral and visceral atherosclerosis (2 sources) Peripheral vascular disease 09-14-2019 Chronic Phlebitis; thrombophlebitis and thromboembolism (8 sources) Phlebitis and thrombophlebitis of superficial vessels of left lower extremity; Translations: [Phlebitis and thrombophlebitis of superficial vessels of right lower extremity] Onset: 3 Episodic Rehabilitation care; fitting of prostheses; and adjustment of devices (1 source) Procedure carried out on subject; Translations: [Encounter for fitting and adjustment of other specified devices] Onset: 3 Chronic Residual codes; unclassified (2 sources) Insomnia 09-14-2019 Episodic Residual codes; unclassified (1 source) Acquired absence of other specified parts of digestive tract; Translations: [ACQ ABSENCE OTH PART DIGESTV TRACT] Onset: 3 Episodic Rheumatoid arthritis and related disease (2 sources) Ankylosing spondylitis 09-14-2019 Chronic Spondylosis; intervertebral disc disorders; other back problems (20 sources) Solitary sacroiliitis; Translations: [Sacroiliitis, not elsewhere classified] Onset: 2 Chronic Spondylosis; intervertebral disc disorders; other back problems (20 sources) Lumbar radiculopathy; Translations: [Radiculopathy, lumbar region] Episodic Superficial injury; contusion (12 sources) Contusion of elbow; Translations: [Contusion of left elbow, initial encounter] Episodic Thyroid disorders (8 sources) Hypothyroidism; Translations: [Hypothyroidism, unspecified] Onset: 3 09-14-2019 Chronic Unclassified (3 sources) CONTACT W/AND (SUSP) EXPOS COVID-19; Translations: [CONTACT W/AND (SUSP) EXPOS COVID-19] Onset: 2 Unclassified (1 source) Low back pain, unspecified; Translations: [Low back pain, unspecified] Onset: 3 Varicose veins of lower extremity (20 sources) Pain co-occurrent and due to varicose veins of bilateral legs; Translations: [Varicose veins of bilateral lower extremities with pain] Onset: 3 09-14-2019 Episodic Comment on above: right leg Past or Other Problems Problem Classification Problem Date Documented Da te Episodic/Chronic Coagulation and hemorrhagic disorders (1 source) Spontaneous ecchymoses; Translations: [SPONTANEOUS ECCHYMOSES] Onset: 03-10-2022 Episodic Deficiency and other anemia (1 source) Anemia, unspecified; Translations: [ANEMIA UNSPECIFIED] Onset: 03-10-2022 Episodic Diabetes mellitus without complication (1 source) Other abnormal glucose; Translations: [OTHER ABNORMAL GLUCOSE] Onset: 05-24-2022 Episodic E Codes: Struck by; against (1 source) Striking against or struck by other objects, initial encounter; Translations: [STRIKING AGNST/STRUCK OTH OBJ INIT] Onset: 10-09-2021 Episodic Malaise and fatigue (1 source) Other fatigue; Translations: [OTHER FATIGUE] Onset: 05-24-2022 Episodic Open wounds of extremities (1 source) Puncture wound without foreign body of right lesser toe(s) without damage to nail, initial encounter; Translations: [PUNCT NO FB RT LSR TOE NO DM NL INT] Onset: 10-09-2021 Episodic Other circulatory disease (4 sources) Hemorrhage, not elsewhere classified; Translations: [HEMORRHAGE NOT ELSEWHERE CLASSIFIED] Onset: 03-06-2022 Episodic Other connective tissue disease (4 sources) Pain in right foot; Translations: [PAIN IN RIGHT FOOT] Onset: 04-22-2022 Episodic Other connective tissue disease (3 sources) Pain in right toe(s); Translations: [PAIN IN RIGHT TOES] Onset: 10-07-2021 Episodic Other nervous system disorders (3 sources) Anesthesia of skin; Translations: [ANESTHESIA OF SKIN] Onset: 05-21-2022 Episodic Other non-traumatic joint disorders (5 sources) Pain in right ankle and joints of right foot; Translations: [PAIN IN RIGHT ANKLE] Onset: 03-31-2022 Episodic Other screening for suspected conditions (not mental disorders or infectious disease) (1 source) Encounter for screening for malignant neoplasm of colon; Translations: [ENC SCREEN MALIG NEOPLASM COLON] Onset: 05-24-2022 Episodic Skin and subcutaneous tissue infections (1 source) Cellulitis of right lower limb; Translations: [CELLULITIS OF RIGHT LOWER LIMB] Onset: 10-09-2021 Episodic Unclassified (2 sources) herpes 07-03-2010 Unclassified (2 sources) pinched nerve in back L 4-5 07-03-2010 Unclassified (1 source) CONTACT W/AND (SUSP) EXPOS COVID-19; Translations: [CONTACT W/AND (SUSP) EXPOS COVID-19] Onset: 01-03-2022 Results Test Name Value Interpretation Reference Range Facility ED Note-Physicianon 11-26-19 ED Note-Physician [facility] Comment on above: Result Comment: Elec tronically Signed By: Jaylyn HART, Sathya Stewart\.br\Date and Time Signed: 11/22/22 14:13 EDT\.br\Electronically Co-Signed By: Flavio Castillo MD\.br\Date and Time Co-Signed: 11/25/22 13:23 EDT Consent for Treatmenton Consent for Treatment [id number]#1.00CD:127 Normal [facility] Discharge Instructionson Discharge Instructions [id number]#1.00CD:127 Normal [facility] ED Clinical Summaryon 2022 ED Clinical Summary Normal [facility] ED Patient Education Noteon 11-22-2022 ED Patient Education Note Normal [facility] ED Patient Summaryon 023 ED Patient Summary Normal [facility] Neurology Forms- Texton Neurology Forms- Text [id number]#1.00CD:127 Normal [facility] EEGon 09-11-2022 EEG Normal [facility] Comment on above: Result Comment: Elec tronically Signed By: Jonathan Powell DO\.br\Date and Time Signed: 09/11/22 10:41 EDT Consent for Treatmenton 08-19 Consent for Treatment [id number]#1.00CD:127 Normal [facility] Physician Orderon 09-03-2022 Physician Order [id number]#1.00CD:127 Normal [facility] VC CONSULT FOLLOWUPon 2022 VC CONSULT FOLLOWUP Patient: LEELEE CEDILLO Exam Date: 08/08/2022 : 1950 Gender:F Ordering : DR ALFRED UMAÑA M.D. Admission #: [id number] Family : Order #: [id number] CLICK HERE TO VIEW EXAM RADIOLOGY REPORT PROCEDURE: VEIN CENTER CONSULTATION FOLLOWUP VEIN CENTER - OFFICE VISIT FOLLOW UP COMPARISON: VC CONSULT FOLLOWUP, 06/19/2022. VC CONSULT FOLLOWUP, 06/10/2022. PROGRESS NOTES: The patient reports interval development of an area of redness pain and scab in region that underwent injection sclerotherapy. Physical exam demonstrates a 1 cm eschar anterior mid left calf with a surrounding 6 cm area of erythema. No swelling. Findings are consistent with a skin ulceration likely related to the injection sclerotherapy. This appears to be healing well without evidence cellulitis. Ultrasound demonstrates an underlying thrombosed superficial varicose vein, consistent with prior injections with micro foam chemical ablation. . The patient was given some 4 x 4 dressings and told to put a dressing over the eschar with paper tape to prevent rubbing on her compression stocking. The patient was asked to call or return to the office for any worsening of her symptoms. IMPRESSION: 1. Development of a 1 cm skin ulceration related to an injection sclerotherapy left anterior mid lower leg. No definite findings to suggest cellulitis PLAN: Follow-up as needed Nurse notes, history and physical were reviewed and confirmed, see attached forms. The nurse was present throughout the physical exam and consultation Dictated by: Alfred Umaña MD on 08/08/2022 at 10:03 Approved by: Alfred Umaña MD on 08/08/2022 at 10:59 Normal [facility] VC EXT VENOUS LT LIMITEDon 0 08-08-2022 VC EXT VENOUS LT LIMITED Patient: LEELEE CEDILLO Exam Date: 08/08/2022 : 1950 Gender:F Ordering : DR ALFRED UMAÑA M.D. Admission #: [id number] Family : Order #: [id number] CLICK HERE TO VIEW EXAM RADIOLOGY REPORT PROCEDURE: VEIN CENTER EXTREMITY VENOUS LEFT LIMITED COMPARISON: VC EXT VENOUS LT LIMITED, 06/19/2022. INDICATIONS: Phlebitis and thrombophlebitis of superficial veins of left lower extremity I80.02 TECHNIQUE: Lower extremity malin scale and Duplex Doppler evaluation of the deep venous system from the inguinal ligament through the calf veins. FINDINGS: REGION: Left lower extremity. THROMBI: Negative for DVT. Chemically induced thrombus in varicose vein along anterior left lower leg. No DVT. COMPRESSIBILITY: Non-compressible segments. FLOW: Absent flow corresponding to thrombus *Exam performed in accordance with [facility] practice guidelines- Peripheral venous ultrasound, July 14, 2009. CONCLUSION: Post ablation occlusion of the treated superficial varicose vein. No deep vein thrombus Dictated by: Alfred Umaña MD on 08/08/2022 at 09:42 Approved by: Alfred Umaña MD on 08/08/2022 at 09:43 Normal [facility] Coding Summary.on 07-29-2022 Coding Summary. Normal [facility] Insurance Correspondenceon 0 07-29-2022 Insurance Correspondence [id number]#1.00CD:127 Normal [facility] Insurance Correspondence Off iceon 07-29-2022 Insurance Correspondence Office [id number]#1.00CD:127 Normal [facility] Discharge Instructionson Discharge Instructions [id number]#1.00CD:127 Normal [facility] VyrG1rig 07-28-2022 HbA1c (Bld) [Mass fraction] 5.3 % Normal <=5.9 [facility] Comment on above: Performed By: #### 2 [id number], [id number], 1825296, 5323487, [id number], [id number] ####[facility] [address] [place] [address] Insurance Correspondenceon 0 07-28-2022 Insurance Correspondence [id number]#[id number]:127 Normal [facility] C. diff by PCRon 07-27-2022 Clostridium difficile by PCR Negative Normal Negative [facility] Comment on above: Order Comment: Order added by Discern Expert. Result Comment: This test result should be correlated with clinical presentations and medical history by a healthcare provider to determine its clinical significance. Performed By: #### 3 [id number], [id number], [id number] ####[facility] [address] [place] [address] CDiff PCRon 07-27-2022 Cdiff Specimen Acceptable Acceptable Normal [facility] Comment on above: Performed By: #### 3 [id number], [id number], [id number] ####[facility] [address] [place] [address] Order Cancelled No, PCR to follow Normal [facility] Comment on above: Performed By: #### 3 [id number], [id number], [id number] ####[facility] [address] [place] [address] CHEMISTRYOrdered By: SYSTEM SYSTEM on 07-27-2022 Anion gap [Moles/Vol] 9 mmol/L Normal 6 - 16 mEq/L [facility]isol Chloride [Moles/Vol] 106 mmol/L Normal 101 - 111 mmol/L [facility] Cholesterol [Mass/Vol] 160 mg/dL Normal 120 - 200 mg/dL [facility] Cholesterol in HDL [Mass/Vol] 52 mg/dL Invalid Interpretation Code [facility] Cholesterol in LDL [Mass/Vol] 91 mg/dL Normal <=129mg/dL [facility] Cholesterol in VLDL [Mass/Vol] 17 mg/dL Normal 7 - 40 mg/dL [facility]isol CO2 [Moles/Vol] 26 mmol/L Normal 21 - 31 mmol/L [facility] Remisol Free T4 [Mass/Vol] 1.91 ng/dL High 0.58 - 1.64 ng/dL [facility] Potassium [Moles/Vol] 4.0 mmol/L Normal 3.5 - 5.3 mmol/L [facility] Sodium [Moles/Vol] 137 mmol/L Normal 135 - 145 mmol/L [facility] Triglyceride [Mass/Vol] 83 mg/dL Normal <=149mg/dL [facility] TSH Qn 0.16 m[IU]/L Low 0.34 - 5.60 mcIU/mL [facility] Consultation Noteon 07-28-19 Consultation Note Normal [facility] Comment on above: Result Comment: Elec tronically Signed By: Smita Ramos RN\.br\Date and Time Signed: 07/27/22 07:14 EDT\.br\Electronically Co-Signed By: Jonathan Powell DO\.br\Date and Time Co-Signed: 07/27/22 10:23 EDT EMS Documentationon 07-28-19 EMS Documentation Normal [facility] EMS Documentation Normal [facility] EMS Documentation Normal [facility] Enteric Panel by PCRon 07-27 C. coli+jejuni+upsali ensis DNA VIVIANA+non-probe Ql (Stl) Not detected Normal [facility] Comment on above: Result Comment: Test ing was performed utilizing reverse cone trucker (RT), polymerase chain reaction (PCR), and array hybridization to detect specific gastrointestinal microbial nucleic acid gene sequences associated with the following pathogenic bacteria and viruses:Campylobacter Group (composed of C. coli, C. jejuni, and C. dianna), Salmonella species, Shigella species (including S. dysenteriae, S. boydii, S. sonnei and S. flexneri), Vibrio Group (composed of V. cholera and V. parahaemolyticus), Yersinia enterocolitica, Norovirus GI/GII, and Rotavirus A. In addition, EPdetects Shiga toxin 1 gene and Shiga toxin 2 gene virulence markers. Shiga toxin producing E. coli (STEC) typically harbor one or both genes that encode for Shiga toxins 1 and 2.Campylobacter group, Salmonella species, Shigella species, Vibrio group, Rotavirus A, Shiga Toxin 1, Shiga Toxin 2, Norovirus GI/GII, and Yersinia enterocolitica were tested by Verigene nulcleic acid test. Performed By: #### 3 [id number], [id number], [id number] ####[place] [address] [place] [id number] E. coli stx1+stx2 genes VIVIANA+non-probe Ql (Stl) Negative Normal [facility] Comment on above: Performed By: #### 3 [id number], [id number], [id number] ####[facility] [address] [place] [address] Enteric Panel Intrl QC Pass Normal [facility] Comment on above: Result Comment: Test ing was performed utilizing reverse cone trucker (RT), polymerase chain reaction (PCR), and array hybridization to detect specific gastrointestinal microbial nucleic acid gene sequences associated with the following pathogenic bacteria and viruses:Campylobacter Group (composed of C. coli, C. jejuni, and C. dianna), Salmonella species, Shigella species (including S. dysenteriae, S. boydii, S. sonnei and S. flexneri), Vibrio Group (composed of V. cholera and V. parahaemolyticus), Yersinia enterocolitica, Norovirus GI/GII, and Rotavirus A. In addition, EPdetects Shiga toxin 1 gene and Shiga toxin 2 gene virulence markers. Shiga toxin producing E. coli (STEC) typically harbor one or both genes that encode for Shiga toxins 1 and 2. Performed By: #### 3 [id number], [id number], [id number] ####[place] [address] Norovirus genogroup I+II RNA VIVIANA+non-probe Ql (Stl) Not detected Normal [facility] Comment on above: Performed By: #### 3 [id number], [id number], [id number] ####[place] [address] Rotavirus A RNA VIVIANA+non-probe Ql (Stl) Not detected Normal [facility] Comment on above: Performed By: #### 3 [id number], [id number], [id number] ####[place] [address] S. enterica+bongori DNA VIVIANA+non-probe Ql (Stl) Not detected Normal [facility] Comment on above: Result Comment: This test result should be correlated with clinical presentations and medical history by a healthcare provider to determine its clinical significance. Performed By: #### 3 [id number], [id number], [id number] ####[place] [id number] Shigella species+EIEC invasion plasmid antigen H ipaH gene VIVIANA+non-probe Ql (Stl) Not detected Normal [facility] Comment on above: Performed By: #### 3 [id number], [id number], [id number] ####[place] [address] V. cholerae+parahaemo lyticus+vulnificus DNA VIVIANA+non-probe Ql (Stl) Not detected Normal [facility] Comment on above: Performed By: #### 3 [id number], [id number], [id number] ####[facility] [address] [place] [address] Y. enterocolitica DNA VIVIANA+non-probe Ql (Stl) Not detected Normal [facility] Comment on above: Performed By: #### 3 [id number], [id number], [id number] ####[facility] [address] [place] [address] Free T4on 07-27-2022 Free T4 [Mass/Vol] 1.91 ng/dL High 0.58-1.64 [facility] Comment on above: Order Comment: Free T4 added by Discern Rule due to a TSH result of <0.34 or >5.60. Performed By: #### 2 473013, 0243986, 6181530, 4012807, 579418886, [id number] ####[facility] [address] [place] [address] HEMATOLOGYOrdered By: Tonya Martin on 07-27-2022 WBC corrected for nucl RBC Auto (Bld) [#/Vol] 7.8 E9/L Normal 4.0 - 11.0 E9/L [facility] HemeAuto[facility] Inpatient Clinical Summaryon 07-27-2022 Inpatient Clinical Summary Normal [facility] Inpatient Patient Summaryon 07-27-2022 Inpatient Patient Summary Normal [facility] Inpatient Patient Summary Normal [facility] Interdisciplinary Note - Oumar e Manageron 07-27-2022 Interdisciplinary Note - Dynamics Ax Solution Architect Normal [facility] Comment on above: Result Comment: Elec tronically Signed By: Tonya Matias\Date and Time Signed: 07/27/22 12:04 EDT Interdisciplinary Note - Pipe n 07-27-2022 Interdisciplinary Note - OT Normal [facility] Interdisciplinary Note - PTo n 07-27-2022 Interdisciplinary Note - PT PT eval completed; pt scores 16/24 on the AM-PAC 6-Clicks 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 Pt is able to safely perform bed <> chair transfers as she was doing prior to admission and has no further PT needs at this time. Normal [facility] Lipid Panelon 07-27-2022 Cholesterol in LDL [Mass/Vol] 91 mg/dL Normal <=129 [facility] Comment on above: Performed By: #### 2 432880, 5203907, 4673897, 9587362, 318134496, [id number] ####[facility] [address] [place] [address] Cholesterol [Mass/Vol] 160 mg/dL Normal 120-200 [facility] Comment on above: Performed By: #### 2 217566, 7310345, 3935199, 5353302, 755678538, 42419177 ####[facility] [address] [place] [address] Cholesterol in HDL [Mass/Vol] 52 mg/dL Invalid Interpretation Code [facility] Comment on above: Result Comment: HDL > or equal to 60 mg/dL: Low cardiovascular riskHDL < 40 mg/dL : High cardiovascular risk Performed By: #### 2 333669, 0909694, 1823572, 0959742, [id number], 70723102 ####[facility] [address] [place] [address] Cholesterol in VLDL [Mass/Vol] 17 mg/dL Normal 7-40 [facility] Comment on above: Performed By: #### 2 796238, 4981259, 1415267, 6271663, 312012100, 45227575 ####[facility] [address] [place] [address] Triglyceride [Mass/Vol] 83 mg/dL Normal <=149 [facility] Comment on above: Performed By: #### 2 733323, 3884382, 6190612, 9919423, 042656543, 73820820 ####[facility] [address] [place] [address] Lyteson 07-27-2022 Anion gap [Moles/Vol] 9 mmol/L Normal 6-16 [facility] Comment on above: Performed By: #### 2 686527, 4439624, 4477542, 1928753, 119141583, 16138965 ####[facility] [address] [place] [address] Chloride [Moles/Vol] 106 mmol/L Normal 101-111 [facility] Comment on above: Performed By: #### 2 141676, 4486038, 5683547, 6156142, 215316152, 58995194 ####[facility] [address] [place] [address] CO2 [Moles/Vol] 26 mmol/L Normal 21-31 [facility] Comment on above: Performed By: #### 2 142852, 9921336, 3393843, 7884535, 589848069, 36712104 ####[facility] [address] [place] [address] Potassium [Moles/Vol] 4.0 mmol/L Normal 3.5-5.3 [facility] Comment on above: Performed By: #### 2 729522, 7662399, 2584152, 9786330, 831678433, 20194257 ####[facility] [address] [place] [address] Sodium [Moles/Vol] 137 mmol/L Normal 135-145 [facility] Comment on above: Performed By: #### 2 888601, 6201375, 1538025, 6020132, 059320502, 66535717 ####[facility] [address] [place] [address] MRA Head w/o Contraston MRA Head w/o Contrast Normal [facility] MRI Brain w/o Contraston MRI Brain w/o Contrast Normal [facility] Monitor Recordon 07-27-2022 Monitor Record [id number]#[id number]:127 Normal [facility] Monitor Record [id number]#[id number]:127 Normal [facility] Patient Education - Texton 0 07-27-2022 Patient Education - Text Normal [facility] RAD - MRI Screening Formon 0 07-27-2022 RAD - MRI Screening Form [id number]#1.00CD:127 Normal [facility] TSH With T4fr Reflexon 07-27 TSH Qn 0.16 m[IU]/L Low 0.34-5.60 [facility] Comment on above: Performed By: #### 2 040412, 8001576, 6128459, 3824001, [id number], [id number] ####[facility] [address] [place] [address] Troponin 9 Hr.on 07-27-2022 Troponin I.cardiac [Mass/Vol] 6.70 pg/mL Low 10.10-27.1 0 [facility] Comment on above: Result Comment: The 95% CI (Confidence Interval) PPV (Positive Predictive Value) for myocardial infarction in females is 38 pg/mL, in males 51 pg/mL. The results should be used in conjunction with clinical conditions of myocardial infarction.(Access High Sensitivity Troponin I Instructions For Use, [employer], November 2017) Performed By: #### 1 [id number] ####[place] [address] [place] [address] WBCon 07-27-2022 WBC corrected for nucl RBC Auto (Bld) [#/Vol] 7.8 E9/L Normal 4.0-11.0 [facility] Comment on above: Performed By: #### 2 837351, 9577371, 1609894, 7947843, [id number], 86154087 ####[facility] [address] [place] [address] Auto Diffon 07-26-2022 Basophils/100 WBC (Bld) 0.5 % Normal 0.0-2.0 [facility] Comment on above: Order Comment: Order Added by Discern Expert. Performed By: #### 2 769694, 1120597, 0864296, 7713455, 90750480, [id number] ####[facility] [address] [place] [address] Basophils/Leukocyt es Auto (Bld) [Pure # fraction] 0.1 E9/L Normal 0.0-0.2 [facility] Comment on above: Order Comment: Order Added by Discern Expert. Performed By: #### 2 796143, 4474758, 6297983, 4678532, 28221497, 87040220 ####[address] [address] Eosinophils/100 WBC (Bld) 0.5 % Normal 0.0-8.0 [facility] Comment on above: Order Comment: Order Added by Discern Expert. Performed By: #### 2 978144, 2843024, 6119349, 3953185, 18631728, 81291099 ####[address] [address] Eosinophils/Leukoc ytes Auto (Bld) [Pure # fraction] 0.1 E9/L Normal 0.0-0.5 [facility] Comment on above: Order Comment: Order Added by Discern Expert. Performed By: #### 2 751091, 8392226, 7142131, 2951730, 75875279, 84733571 ####[address] [address] Lymphocytes/100 WBC (Bld) 14.5 % Normal 14.0-50.0 [facility] Comment on above: Order Comment: Order Added by Discern Expert. Performed By: #### 2 583947, 4336079, 3693283, 9497023, 35722680, 14187195 ####[address] [address] Lymphocytes/Leukoc ytes Auto (Bld) [Pure # fraction] 2.1 E9/L Normal 1.0-4.0 [facility] Comment on above: Order Comment: Order Added by Ham Expert. Performed By: #### 2 549304, 2533063, 2205386, 0035380, 67936274, 70762867 ####[address] [address] Monocytes/100 WBC (Bld) 6.5 % Normal 4.0-14.0 [facility] Comment on above: Order Comment: Order Added by Discern Expert. Performed By: #### 2 898334, 1078336, 2473307, 6332661, 66095094, 71806043 ####[facility] [address] [place] [address] Monocytes/Leukocyt es Auto (Bld) [Pure # fraction] 0.9 E9/L Normal 0.2-1.0 [facility] Comment on above: Order Comment: Order Added by Discern Expert. Performed By: #### 2 197996, 3653566, 2632269, 5760470, 46286694, 95057572 ####[facility] [address] [place] [address] Neutrophils/100 WBC (Bld) 78.0 % High 36.0-75.0 [facility] Comment on above: Order Comment: Order Added by Discern Expert. Performed By: #### 2 490014, 8444529, 0534068, 5589045, 45746467, 92015749 ####[facility] [address] [place] [address] Neutrophils/Leukoc ytes Auto (Bld) [Pure # fraction] 11.4 E9/L High 2.0-7.5 [facility] Comment on above: Order Comment: Order Added by Discern Expert. Performed By: #### 2 715979, 4381120, 3879967, 2299544, 29893820, 47184724 ####[facility] [address] [place] [address] BMPon 07-26-2022 Creatinine [Mass/Vol] 0.8 mg/dL Normal 0.5-1.3 [facility] Comment on above: Performed By: #### 2 905566, 1299976, 7190551, 1440191, 93003505, 88219102 ####[facility] [address] [place] [address] Urea nitrogen [Mass/Vol] 11 mg/dL Normal 5-21 [facility] Comment on above: Performed By: #### 2 724497, 4895307, 8565064, 3961054, 05449665, 80477455 ####[facility] [address] [place] [address] Urea nitrogen/Creatinin e [Mass ratio] 14 No Units Normal 10-20 [facility] Comment on above: Performed By: #### 2 863340, 1476673, 4631268, 0858085, 58505808, 14884911 ####[facility] [address] [place] [address] Anion gap [Moles/Vol] 13 mmol/L Normal 6-16 [facility] Comment on above: Performed By: #### 2 939027, 8059869, 4022947, 3600100, 01545027, 56506113 ####[facility] [address] [place] [address] Calcium [Mass/Vol] 9.3 mg/dL Normal 8.9-11.1 [facility] Comment on above: Performed By: #### 2 980020, 1436829, 9111500, 4689965, 66729776, 87423791 ####[facility] [address] [place] [address] Chloride [Moles/Vol] 101 mmol/L Normal 101-111 [facility] Comment on above: Performed By: #### 2 045890, 0872655, 8591512, 8636932, 74715421, 93395740 ####[facility] [address] [place] [address] CO2 [Moles/Vol] 27 mmol/L Normal 21-31 [facility] Comment on above: Performed By: #### 2 187024, 3036178, 0952295, 4745065, 13516094, 92463014 ####[facility] [address] [place] [address] Glucose [Mass/Vol] 88 mg/dL Normal 55-199 [facility] Comment on above: Result Comment: If t his glucose result represents a fasting glucose, interpretation should refer to the following reference range: 55-99 mg/dL Performed By: #### 2 068798, 0872180, 4355757, 8760584, 05742881, 13213699 ####[facility] [address] [place] [address] Potassium [Moles/Vol] 3.6 mmol/L Normal 3.5-5.3 [facility] Comment on above: Performed By: #### 2 329947, 2616270, 4775504, 0606315, 85161759, 36115392 ####[facility] [address] [place] [address] Sodium [Moles/Vol] 137 mmol/L Normal 135-145 [facility] Comment on above: Performed By: #### 2 357317, 0870583, 6097662, 9618110, 62923927, 94553884 ####[facility] [address] [place] [address] CBC w/ Auto Diffon 3 Erythrocyte distribution width (RBC) [Ratio] 13.9 % Normal 10.9-14.2 [facility] Comment on above: Performed By: #### 2 562950, 8391322, 7366050, 7222930, 89476054, 78253575 ####[address] [place] [address] Hematocrit (Bld) [Volume fraction] 47.0 % High 34.0-46.0 [facility] Comment on above: Performed By: #### 2 159131, 2836725, 0698108, 3226180, 88050824, 78607507 ####[facility] [address] [place] [address] Hemoglobin (Bld) [Mass/Vol] 15.3 g/dL Normal 12.0-16.0 [facility] Comment on above: Performed By: #### 2 243476, 2992424, 2357072, 1388758, 05932959, 35275993 ####[facility] [address] [place] [address] MCH (RBC) [Entitic mass] 29.2 pg Normal 27.0-34.0 [facility] Comment on above: Performed By: #### 2 400854, 7923911, 6964767, 8274200, 51356822, 52736880 ####[address] [address] MCHC (RBC) [Mass/Vol] 32.7 g/dL Normal 31.4-36.0 [facility] Comment on above: Performed By: #### 2 441006, 8985403, 2202220, 3247443, 72731899, 82255432 ####[address] [address] MCV (RBC) [Entitic vol] 89.3 fL Normal 80.0-100.0 [facility] Comment on above: Performed By: #### 2 768031, 1835135, 8230610, 1599301, 83809602, 18223532 ####[address] [address] Platelet mean volume (Bld) [Entitic vol] 6.7 fL Normal 6.4-10.8 [facility] Comment on above: Performed By: #### 2 819959, 6783890, 3723891, 5281421, 47558101, 49894255 ####[address] [address] Platelets (Bld) [#/Vol] 324.0 E9/L Normal 150.0-500. 0 [facility] Comment on above: Performed By: #### 2 297135, 8372358, 4732404, 5046103, 02885420, 29393496 ####[address] [address] RBC (Bld) [#/Vol] 5.3 E12/L Normal 4.3-5.9 [facility] Comment on above: Performed By: #### 2 491569, 3200693, 5388575, 8740225, 79862795, 64887629 ####[facility] [address] [place] [address] WBC corrected for nucl RBC Auto (Bld) [#/Vol] 14.6 E9/L High 4.0-11.0 [facility] Comment on above: Performed By: #### 2 181244, 9960752, 7779582, 2215683, 59737825, 65880581 ####[facility] [address] [place] [address] CHEMISTRYOrdered By: SYSTEM SYSTEM on 07-26-2022 Troponin I.cardiac [Mass/Vol] 6.70 pg/mL Low 10.10 - 27.10 pg/mL FT Remisol Troponin I.cardiac [Mass/Vol] 5.40 pg/mL Low 10.10 - 27.10 pg/mL [facility] Troponin I.cardiac [Mass/Vol] 6.00 pg/mL Low 10.10 - 27.10 pg/mL [facility] Anion gap [Moles/Vol] 13 mmol/L Normal 6 - 16 mEq/L [facility] Calcium [Mass/Vol] 9.3 mg/dL Normal 8.9 - 11. 1 mg/dL [facility] Chloride [Moles/Vol] 101 mmol/L Normal 101 - 111 mmol/L [facility] CO2 [Moles/Vol] 27 mmol/L Normal 21 - 31 mmol/L [facility] Creatinine [Mass/Vol] 0.8 mg/dL Normal 0.5 - 1.3 mg/dL [facility] GFR/1.73 sq M.predicted among blacks MDRD (S/P/Bld) [Vol rate/Area] mL/min/1.73 m2 Normal >=59mL/min /1.73 m2 FT Chem S GFR/1.73 sq M.predicted among non-blacks MDRD (S/P/Bld) [Vol rate/Area] mL/min/1.73 m2 Normal >=59mL/min /1.73 m2 [facility] Chem S Glucose [Mass/Vol] 88 mg/dL Normal 55 - 199 mg/dL [facility] Magnesium [Mass/Vol] 2.0 mg/dL Normal 1.3 - 2.4 mg/dL [facility] Remisol Potassium [Moles/Vol] 3.6 mmol/L Normal 3.5 - 5.3 mmol/L [facility] Remisol Sodium [Moles/Vol] 137 mmol/L Normal 135 - 145 mmol/L [facility] Remisol Urea nitrogen [Mass/Vol] 11 mg/dL Normal 5 - 21 mg/dL [facility] Remisol Urea nitrogen/Creatinin e [Mass ratio] 14 mg/mg Normal 10 - 20 [facility] Remisol CHEMISTRYOrdered By: Lab ROP User on 07-26-2022 Glucose [Mass/Vol] 106 mg/dL High 55 - 99 mg/dL [facility] POC Subsection Comment on above: Result Comment: Parker wills RN/ POC Device SN [id number] Invalid Interpretation Code [facility] POC Subsection POC User ID [id number] Invalid Interpretation Code [facility] POC Subsection POC Username SHANKAR ABARCA Invalid Interpretation Code [facility] POC Subsection CT Head or Brain w/o Contras ton 07-26-2022 CT Head or Brain w/o Contrast Normal [facility] Capillary Glucose POCon Glucose [Mass/Vol] 106 mg/dL High 55-99 [facility] Comment on above: Result Comment: Parker wills RN/ Performed By: #### 2 [id number] ####[facility] [address] [place] [address] Consent for Treatmenton Consent for Treatment [id number]:127 Normal [facility] ED Clinical Summaryon 2022 ED Clinical Summary Normal [facility] ED Note-Physicianon 07-27-19 ED Note-Physician Normal [facility] Comment on above: Result Comment: Elec tronically Signed By: Yaritza Cedeño PA-C\.br\Date and Time Signed: 07/26/22 14:17 EDT\.br\Electronically Co-Signed By: Lance Wu M.D.\.br\Date and Time Co-Signed: 07/26/22 15:36 EDT ED Patient Education Noteon 07-26-2022 ED Patient Education Note Normal [facility] ED Patient Summaryon 023 ED Patient Summary Normal [facility] HEMATOLOGYOrdered By: SYSTEM SYSTEM on 07-26-2022 Basophils/100 WBC (Bld) 0.5 % Normal 0.0 - 2.0 % [facility] HemeAutoSS Basophils/Leukocyt es Auto (Bld) [Pure # fraction] 0.1 E9/L Normal 0.0 - 0.2 E9/L [facility] HemeAutoSS Eosinophils/100 WBC (Bld) 0.5 % Normal 0.0 - 8.0 % [facility] HemeAutoSS Eosinophils/Leukoc ytes Auto (Bld) [Pure # fraction] 0.1 E9/L Normal 0.0 - 0.5 E9/L [facility] HemeAutoSS Lymphocytes/100 WBC (Bld) 14.5 % Normal 14.0 - 50.0 % [facility] HemeAutoSS Lymphocytes/Leukoc ytes Auto (Bld) [Pure # fraction] 2.1 E9/L Normal 1.0 - 4.0 E9/L [facility] HemeAutoSS Monocytes/100 WBC (Bld) 6.5 % Normal 4.0 - 14.0 % [facility] HemeAutoSS Monocytes/Leukocyt es Auto (Bld) [Pure # fraction] 0.9 E9/L Normal 0.2 - 1.0 E9/L [facility] HemeAutoSS Neutrophils/100 WBC (Bld) 78.0 % High 36.0 - 75.0 % [facility] HemeAutoSS Neutrophils/Leukoc ytes Auto (Bld) [Pure # fraction] 11.4 E9/L High 2.0 - 7.5 E9/L [facility] HemeAutoSS HEMATOLOGYOrdered By: Orlin Suh on 07-26-2022 Erythrocyte distribution width (RBC) [Ratio] 13.9 % Normal 10.9 - 14.2 % [facility] HemeAutoSS Hematocrit (Bld) [Volume fraction] 47.0 % High 34.0 - 46.0 % [facility] HemeAutoSS Hemoglobin (Bld) [Mass/Vol] 15.3 g/dL Normal 12.0 - 16.0 gm/dL [facility] HemeAutoSS MCH (RBC) [Entitic mass] 29.2 pg Normal 27.0 - 34.0 pg [facility] HemeAutoSS MCHC (RBC) [Mass/Vol] 32.7 g/dL Normal 31.4 - 36.0 gm/dL FT HemeAutoSS MCV (RBC) [Entitic vol] 89.3 fL Normal 80.0 - 100.0 fL [facility] HemeAutoSS Platelet mean volume (Bld) [Entitic vol] 6.7 fL Normal 6.4 - 10.8 fL [facility] HemeAutoSS Platelets (Bld) [#/Vol] 324.0 E9/L Normal 150.0 - 500.0 E9/L [facility] HemeAutoSS RBC (Bld) [#/Vol] 5.3 E12/L Normal 4.3 - 5.9 E12/L [facility] HemeAutoSS WBC corrected for nucl RBC Auto (Bld) [#/Vol] 14.6 E9/L High 4.0 - 11.0 E9/L [facility] HemeAutoSS Magnesiumon 07-26-2022 Magnesium [Mass/Vol] 2.0 mg/dL Normal 1.3-2.4 [facility] Comment on above: Performed By: #### 2 544912, 1983447, 1512140, 8936213, 80306372, 23511219 ####[facility] [address] [place] [address] Monitor Recordon 07-26-2022 Monitor Record [id number]:127 Normal [facility] Pre-Arrival Noteon 3 Pre-Arrival Note Normal [facility] Troponin 0 Hr.on 07-26-2022 Troponin I.cardiac [Mass/Vol] 6.60 pg/mL Low 10.10-27.1 0 [facility] Comment on above: Order Comment: pt st ill in imaging, will check back later [id number] 07/26/2022 12:32:06 EDT Result Comment: The 95% CI (Confidence Interval) PPV (Positive Predictive Value) for myocardial infarction in females is 38 pg/mL, in males 51 pg/mL. The results should be used in conjunction with clinical conditions of myocardial infarction.(Access High Sensitivity Troponin I Instructions For Use, Christy [employer], November 2017) Performed By: #### 2 423720, 3681450, 1048622, 9572993, 53455186, 76382157 ####[facility] [address] [place] [address] Troponin 3 Hr.on 07-26-2022 Troponin I.cardiac [Mass/Vol] 6.00 pg/mL Low 10.10-27.1 0 [facility] Comment on above: Result Comment: The 95% CI (Confidence Interval) PPV (Positive Predictive Value) for myocardial infarction in females is 38 pg/mL, in males 51 pg/mL. The results should be used in conjunction with clinical conditions of myocardial infarction.(Access High Sensitivity Troponin I Instructions For Use, [employer], November 2017) Performed By: #### 1 0297919 ####[address] [address] Troponin 6 Hr.on 07-26-2022 Troponin I.cardiac [Mass/Vol] 5.40 pg/mL Low 10.10-27.1 0 [facility] Comment on above: Result Comment: The 95% CI (Confidence Interval) PPV (Positive Predictive Value) for myocardial infarction in females is 38 pg/mL, in males 51 pg/mL. The results should be used in conjunction with clinical conditions of myocardial infarction.(Access High Sensitivity Troponin I Instructions For Use, [employer], November 2017) Performed By: #### 1 [id number] ####[address] [address] UA With Cult Reflexon 2022 Bacteria LM Ql (Urine sed) TRACE Normal Trace [facility] Comment on above: Performed By: #### 1 0326957 ####[address] [address] Bilirubin Ql (U) Negative Normal Negative [facility] Comment on above: Performed By: #### 1 6799577 ####[address] [address] Clarity (U) CLEAR Normal Clear [facility] Comment on above: Performed By: #### 1 4832905 ####[address] [address] Color (U) YELLOW Normal Yellow [facility] Comment on above: Performed By: #### 1 2332501 ####[facility] [address] [place] [address] Epithelial cells.squamous LM.HPF (Urine sed) [#/Area] 3-4 Normal 0-2 [facility] Comment on above: Performed By: #### 1 9257552 ####[facility] [address] [place] [address] Glucose Test strip (U) [Mass/Vol] Negative Normal Negative [facility] Comment on above: Performed By: #### 1 4707523 ####[facility] [address] [place] [address] Hemoglobin Ql (U) Negative Normal Negative [facility] Comment on above: Performed By: #### 1 5840453 ####[address] [address] Ketones (U) [Mass/Vol] Negative Normal Negative [facility] Comment on above: Performed By: #### 1 6977043 ####[facility] [address] [place] [address] [place].plasma/Lit hium.RBC (Bld) [Mass ratio] 0-3 Normal 0-3 [facility] Comment on above: Performed By: #### 1 8121200 ####[address] [address] Nitrite Ql (U) Negative Normal Negative [facility] Comment on above: Performed By: #### 1 9686914 ####[facility] [address] [place] [address] pH (U) 6.5 [pH] Invalid Interpretation Code 5.0-9.0 [facility] Comment on above: Performed By: #### 1 8598316 ####[facility] [address] [place] [address] Protein (U) [Mass/Vol] Negative Normal Negative [facility] Comment on above: Performed By: #### 1 4568937 ####[facility] [place] [address] Specific gravity (U) [Rel density] <=1.005 Invalid Interpretation Code 1.005-1.03 0 [facility] Comment on above: Performed By: #### 1 0284649 ####[place] [address] Type of Urine collection method Clean Catch Normal [facility] Comment on above: Performed By: #### 1 5912699 ####[place] [address] Urobilinogen Qn (U) 0.2 {Malu'U}/dL Normal 0.0-1.0 [facility] Comment on above: Performed By: #### 1 6183418 ####[place] [address] WBC Auto Ql (U) TRACE Abnormal Negative [facility] Comment on above: Performed By: #### 1 7065102 ####[place] [address] WBC LM.HPF (Urine sed) [#/Area] 0-5 Normal 0-5 [facility] Comment on above: Performed By: #### 1 8728172 ####[place] [address] URINALYSISOrdered By: Katerina Parker on 07-26-2022 Bacteria LM Ql (Urine sed) Trace /HPF Normal Trace/HPF [facility] UA Auto SS Bilirubin Ql (U) Negative (07/26/22 4:49 PM) Normal Negative [facility] UA Auto SS Clarity (U) Clear (07/26/22 4:49 PM) Normal Clear FT UA Auto SS Color (U) Yellow (07/26/22 4:49 PM) Normal Yellow [facility] UA Auto SS Epithelial cells.squamous LM.HPF (Urine sed) [#/Area] 3-4 /HPF Normal 0-2/HPF FT UA Auto SS Glucose Test strip (U) [Mass/Vol] Negative (07/26/22 4:49 PM) Normal Negative [facility] UA Auto SS Hemoglobin Ql (U) Negative (07/26/22 4:49 PM) Normal Negative [facility] UA Auto SS Ketones (U) [Mass/Vol] Negative (07/26/22 4:49 PM) Normal Negative [facility] UA Auto SS [place].plasma/Lit hium.RBC (Bld) [Mass ratio] 0-3 /HPF Normal 0-3/HPF [facility] UA Auto SS Nitrite Ql (U) Negative (07/26/22 4:49 PM) Normal Negative [facility] UA Auto SS pH (U) 6.5 *NA* (07/26/22 4:49 PM) Invalid Interpretation Code 5.0 - 9.0 [facility] UA Auto SS Protein (U) [Mass/Vol] Negative (07/26/22 4:49 PM) Normal Negative [facility] UA Auto SS Specific gravity (U) [Rel density] <=1.005 *NA* (07/26/22 4:49 PM) Invalid Interpretation Code 1.005 - 1.030 FT UA Auto SS UA Spec Desc Clean Catch (07/26/22 4:49 PM) Normal FT UA Auto SS Urobilinogen Qn (U) 0.1231444 {Malu'U}/dL Normal 0.0 - 1.0 EU/dL [facility] UA Auto SS WBC Auto Ql (U) Trace *ABN* (07/26/22 4:49 PM) Invalid Interpretation Code Negative [facility] UA Auto SS WBC LM.HPF (Urine sed) [#/Area] 0-5 /HPF Normal 0-5/HPF [facility] UA Auto SS XR Chest Single Viewon 07-26 XR Chest Single View Normal [facility] eGFRon 07-26-2022 GFR/1.73 sq M.predicted among blacks MDRD (S/P/Bld) [Vol rate/Area] mL/min/{1.73_m2} Normal >=59 [facility] Comment on above: Order Comment: Order added by Discern Expert. Result Comment: eGFR is race adjusted. AA=. Performed By: #### 2 658763, 2085281, 1192806, 9125985, 18141019, 32049446 ####[facility] [address] [place] [address] GFR/1.73 sq M.predicted among non-blacks MDRD (S/P/Bld) [Vol rate/Area] mL/min/{1.73_m2} Normal >=59 [facility] Comment on above: Order Comment: Order added by Discern Expert. Result Comment: [place] gina kidney disease could be indicated at eGFR's of less than 60 mL/min/1.73m2. Kidney failure is indicated at less than 15 mL/min/1.73m2. Performed By: #### 2 606251, 1720120, 9016959, 1198986, 03038863, 98122456 ####[facility] [address] [place] [address] SURGICAL PATH REPORTon 07-25 SURGICAL PATH REPORT [facility] Department of Pathology [address] [place] [phone] Name: LEELEE CEDILLO : 1950 Financial [id number] Number: Gender Female [facility]atio [facility] : n: Admit 71 years Attending ADELE FLEMING Age: Provider: Ordering ADELE FLEMING Provider: Consulti Surgical Pathology Report ng: ACCESSION: COLLECTED DATE/TIME: RECEIVED DATE/TIME: PATHOLOGIST: [id number] 07/24/2022 12:16 EDT 07/24/2022 12:16 EDT MICHELINE STERN MD Final Diagnosis Report for [facility] [place] [place] RIGHT ANKLE, PUNCH BIOPSY: - FRAGMENT OF FIBROSTROMAL TISSUE WITH PATCHY ACUTE AND CHRONIC INFLAMMATION AND REACTIVE CHANGES. - NO EVIDENCE OF MALIGNANCY. MICHELINE STERN PATHOLOGIST (Electronic Signature) Date Verified 07/25/2022 VB Clinical Data PRE-OP DIAGNOSIS: Not specified POST-OP DIAGNOSIS: Non-pressure chronic ulcer right ankle PROCEDURES: Surgical debridement of right ankle ulcer SPECIMEN: Right ankle punch biopsy / Ambulatory surgery Gross Description Labeled right ankle ulcer bx. Received in formalin is a single ovoid segment of yuen pink soft tissue measuring 0.5 x 0.4 x 0.4 cm. The specimen is bisected transversely and entirely submitted in one cassette. MP:alexa 07/24/2022 Tissue pathology report for: [facility], [address] [place] [address]; ____ Print 07/25/2022 15:48 EDT Number: Date/Time: [facility] Department of Pathology [address] [place] [phone] Name: LEELEE CEDILLO : 1950 Financial [id number] Number: Gender Female [facility] : n: Admit 71 years Attending ADELE FLEMING Age: Provider: Ordering ADELE FLEMING Provider: Consulti Surgical Pathology Report ng: ACCESSION: COLLECTED DATE/TIME: RECEIVED DATE/TIME: PATHOLOGIST: [id number] 07/24/2022 12:16 EDT 07/24/2022 12:16 EDT LEENA RUFF, MICHELINE Gross Description PATHOLOGY SERVICES PROVIDED BY [employer] (CLIA #[id number]) in cooperation with [facility] at [address] [place] [address] ( CLIA #[id number]) Microscopic Diagnosis The final diagnosis is based on a microscopic exam of computer help desk representative sections. Codes CPT CODE: 13262 ____ Print 07/25/2022 15:48 EDT Number: Date/Time: [facility] Comment on above: Performed By: #### 9 [id number] #### [facility] Services [address] [place] [address] Administrative Operations Coordinator: Jared Oh MD POINT OF CARE GLUCOSEon 04-0 Glucose [Mass/Vol] 114 mg/dL Critically high 74-106 [facility] Comment on above: Performed By: #### P OCGLUC #### [facility] [address] [address] [address] Salvador Yung Glucose [Mass/Vol] 112 mg/dL Critically high 74-106 [facility] Comment on above: Performed By: #### P OCGLUC #### [facility] [address] [address] [address] Salvador Yung EMS Documentationon 07-21-19 23 EMS Documentation Normal [facility] Covid-19 PCR (CVDTBH)on 06-20 SARS-CoV-2 (COVID-19) RNA VIVIANA+probe Ql (Unsp spec) Not detected Normal NOT DETECTED [facility] Comment on above: Result Comment: This test is not yet approved or cleared by the [place] FDA. When there are no FDA-approved or cleared tests available, and other criteria are met, FDA can make tests available under an emergency access mechanism called an Emergency Use Authorization (EUA). The EUA for this test is supported by the [employer] of Health and Human Service's (HHS's) declaration that circumstances exist to justify the emergency use of in vitro diagnostics for the detection and/or diagnosis of the virus that causes COVID-19. This EUA will remain in effect (meaning this test can be used) for the duration of the COVID-19 declaration justifying emergency of IVDs, unless it is terminated or revoked by FDA (after which the test may no longer be used). When diagnostic testing is negative, the possibility of a false negative should be considered in the context of a patient's recent exposures and the presence of clinical signs and symptoms consistent with SARS-CoV-2. Performed By: #### C VDTBH #### [facility] [address] [place] [address] Dr. Salvador Yung PROF CHEM 8 (BAS METB)on Anion gap [Moles/Vol] 12.0 mmol/L Normal [facility] Comment on above: Performed By: #### B MP #### [facility] [address] [place] [address] Dr. Salvador Yung Calcium [Mass/Vol] 9.4 mg/dL Normal 8.5-10.1 [facility] Comment on above: Performed By: #### B MP #### [facility] [address] [place] [address] Dr. Salvador Yung Chloride [Moles/Vol] 100 mmol/L Normal 98-107 [facility] Comment on above: Performed By: #### B MP #### [facility] [address] [place] [address] Dr. Salvador Yung CO2 [Moles/Vol] 29.8 mmol/L Normal 21.0-32.0 [facility] Comment on above: Performed By: #### B MP #### [facility] [address] [place] [address] Dr. Salvador Yung Creatinine [Mass/Vol] 0.91 mg/dL Normal 0.55-1.02 [facility] Comment on above: Performed By: #### B MP #### [facility] [address] [place] [address] Dr. Salvador Yung EGFR-AF TURKS AND CAICOS ISLANDER >60 Normal >=60 [facility] Comment on above: Performed By: #### B MP #### [facility] [address] [place] [address] Dr. Salvador Yung EGFR-NON AF TURKS AND CAICOS ISLANDER >60 Normal >=60 [facility] Comment on above: Performed By: #### B MP #### [facility] [address] [place] [address] Dr. Salvador Yung Glucose [Mass/Vol] 82 mg/dL Normal 74-106 [facility] Comment on above: Performed By: #### B MP #### [facility] [address] [place] [address] Dr. Salvador Yung Potassium [Moles/Vol] 3.8 mmol/L Normal 3.5-5.1 [facility] Comment on above: Performed By: #### B MP #### [facility] [address] [address] [address] Salvador Yung Sodium [Moles/Vol] 138 mmol/L Normal 136-145 [facility] Comment on above: Performed By: #### B MP #### [facility] [address] [place], [place] [address] Dr. Salvador Yung Urea nitrogen [Mass/Vol] 12.0 mg/dL Normal 7.0-18.0 [facility] Comment on above: Performed By: #### B MP #### [facility] [address] [address] [address] Salvador Yung Urea nitrogen/Creatinin e [Mass ratio] 13.2 mg/mg Normal [facility] Comment on above: Performed By: #### B MP #### [facility] [address] [address] [address] Salvador Yung VC INJ SCL JESSICA INSECT CONTROL AIDE VEINSon 0 07-01-2022 VC INJ SCL JESSICA INSECT CONTROL AIDE VEINS Patient: LEELEE CEDILLO Exam Date: 07/01/2022 : 1950 Gender:F Ordering : DR ALFRED UMAÑA M.D. Admission #: [id number] Family : Order #: [id number] CLICK HERE TO VIEW EXAM RADIOLOGY REPORT PROCEDURE: VEIN CENTER INJECTION SCLEROSING SOLUTION MULTIPLE VEINS SAME COMPARISON: None. INDICATIONS: Pain co-occurrent and due to varicose veins of bilateral legs i83.813 PROCEDURE NOTE: The risks and benefits of the procedure were explained at length to the patient and informed written consent was obtained. Jameson Marinelli R.N. was present and assisted. The procedure was performed under sterile technique. The patient's leg was wrapped with Coban and postprocedural verbal and written instructions provided. SCLEROSANT: 2 cc, 0.5% polidocanol VEIN(S) INJECTED: 37 veins in the left leg VISUALIZATION: Ultrasound was not used to visualize the sclerosant ANESTHESIA Supercooled air COMPLICATIONS: None CONCLUSION: 1. Technically successful sclerotherapy as described Dictated by: Julio Lobato M.D. on 07/01/2022 at 15:22 Approved by: Julio Lobato M.D. on 07/01/2022 at 15:22 Normal [facility] VC CONSULT FOLLOWUPon 2022 VC CONSULT FOLLOWUP Patient: LEELEE CEDILLO Exam Date: 06/19/2022 : 1950 Gender:F Ordering : DR ALFRED UMAÑA M.D. Admission #: [id number] Family : Order #: [id number] CLICK HERE TO VIEW EXAM RADIOLOGY REPORT PROCEDURE: VEIN CENTER CONSULTATION FOLLOWUP VEIN CENTER - OFFICE VISIT FOLLOW UP COMPARISON: VC CONSULT FOLLOWUP, 06/10/2022. VC CONSULT FOLLOWUP, 05/28/2022. PROGRESS NOTES: The patient reports no problems following micro foam chemical ablation of the left leg. The patient did wear her compression stocking. The patient did not require oral analgesics. The patient is unable to walk regularly as instructed. Physical exam demonstrates multiple thrombosed varicose veins. No areas of erythema or warmth to suggest cellulitis on either leg. No areas of active ulceration. Moderate diffuse bilateral reticular and spider veins Review of the ultrasound performed the same day demonstrates occlusive thrombus extending throughout the treated left leg varicose veins. No deep vein thrombus. The patient expressed a desire to proceed with treatment of reticular and spider veins with injection sclerotherapy. IMPRESSION: 1. Successful ablation of left leg varicose veins 2. Persistent bilateral reticular and spider veins PLAN: Injection sclerotherapy Nurse notes, history and physical were reviewed and confirmed, see attached forms. The nurse was present throughout the physical exam and consultation Dictated by: Alfred Umaña MD on 06/19/2022 at 14:15 Approved by: Alfred Umaña MD on 06/19/2022 at 14:17 Normal [facility] VC EXT VENOUS LT LIMITEDon 0 06-19-2022 VC EXT VENOUS LT LIMITED Patient: LEELEE CEDILLO Exam Date: 06/19/2022 : 1950 Gender:F Ordering : DR ALFRED UMAÑA M.D. Admission #: [id number] Family : Order #: [id number] CLICK HERE TO VIEW EXAM RADIOLOGY REPORT PROCEDURE: VEIN CENTER EXTREMITY VENOUS LEFT LIMITED COMPARISON: None. INDICATIONS: Phlebitis of superficial veins of lower extremity I80.02 TECHNIQUE: Lower extremity malin scale and Duplex Doppler evaluation of the deep venous system from the inguinal ligament through the calf veins. FINDINGS: REGION: Left lower extremity. THROMBI: Negative for DVT. Varithena induced thrombus visualized at prox/med calf and mid/med thigh. COMPRESSIBILITY: Non-compressible segments corresponding to thrombus. FLOW: Absent flow corresponding to thrombus OTHER: No patent varicose veins remain *Exam performed in accordance with [facility] practice guidelines- Peripheral venous ultrasound, July 14, 2009. CONCLUSION: Post ablation occlusion of treated left leg varicose veins Dictated by: Alfred Umaña MD on 06/19/2022 at 14:14 Approved by: Alfred Umaña MD on 06/19/2022 at 14:15 Normal [facility] VC INJ FOAM SCLERO W US MLTI on 06-13-2022 VC INJ FOAM SCLERO W US MLTI Patient: LEELEE CEDILLO Exam Date: 06/13/2022 : 1950 Gender:F Ordering : DR ALFRED UMAÑA M.D. Admission #: [id number] Family : Order #: [id number] CLICK HERE TO VIEW EXAM RADIOLOGY REPORT PROCEDURE: VEIN CENTER INJECTION FOAM SCLEROSING SOLUTION WITH ULTRASOUND MULTIPLE VEINS COMPARISON: VC INJ FOAM SCLERO W US MLTI, 06/03/2022. Pre-operative Diagnosis: CEAP class C6 venous insufficiency with pain, tenderness, edema and incompetent left saphenous vein and varicose veins, chronic venous insufficiency left leg secondary to venous incompetence Post-operative Diagnosis: CEAP class C6 venous insufficiency with pain, tenderness, edema and incompetent left saphenous vein and varicose veins, chronic venous insufficiency left leg secondary to venous incompetence Procedure Performed: 1. Ultrasound-guided microfoam chemical ablation with Varithena(r) 2. Intraoperative ultrasound guidance Physician: Alfred Umaña M.D. Anesthesia: None Indications for Procedure: Presents with 40 year history leg pain swelling varicose veins resulting in venous stasis ulcerations along the ankle. The patient referred by wound clinic. Patient failed conservative medical therapy including medical compression stockings, exercise and analgesics. Prior procedures include intravenous laser ablation. Multiple incompetent varicosities of the left leg. Duplex scan showed reflux and enlarged diameters up to 5 mm. The patient underwent informed consent including management options where the complications of infection, bleeding, pain, and skin injury were discussed. Particular attention was spent discussing thrombus extension and deep vein thrombosis as well as the possibility of pulmonary embolus and treatment with oral or injectable blood thinners. Procedure: The patient walked to the procedure room. All applicable staff donned appropriate apparel. A procedure timeout was performed to confirm correct patient, correct extremity, correct procedure, and correct room set-up including presence of all applicable supplies, devices, and drugs. A duplex ultrasound, performed by myself confirmed the location and incompetence of left leg varicose veins and their course marked on the skin together with the dilated tributaries. The extent of treatment of the vein and the associated varicosities was determined through ultrasound mapping. The patient was placed on the operating room table. The limb was prepped. The skin was punctured with a butterfly needle through the skin with the venous access needle and advanced under ultrasound guidance. The target limb was positioned at 45 degrees of elevation in relation to the torso utilizing a foam. The Varithena(r) canister was previously activated and the canister was primed and purged as required in the instructions for use. Following injections were made 6 mL aliquot of Varithena(r) was drawn into a sterile syringe. Injection into a 4 mm vein distal medial left lower leg 4 mL aliquot of Varithena(r) was drawn into a sterile syringe. Injection into a 5 mm varicose vein left medial proximal lower leg 4 mL aliquot of Varithena(r) was drawn into a sterile syringe. Injection into a 4 mm varicose vein left distal anterior thigh Varithena(r) was slowly administered at 0.5-1.0 cc/second with close observation by ultrasound of its course in the injected veins. A total volume of 14 mL of Varithena(r) was used. During administration of Varithena(r), the patient was asked to dorsiflex the ankle to limit flow of Varithena(r) into perforating veins. Once appropriate spasm had been confirmed in the treated veins, the vascular catheter was removed from the leg and light pressure was applied over the puncture site for hemostasis The common femoral and deep superficial veins were then evaluated for flow and compressibility prior to dressing placement. The lower extremity was kept elevated at 45 degrees above the horizontal and cording material was applied over the saphenous segments and tributaries to allow for eccentric compression over the target vessels including the targeted saphenous vein(s). A multilayer dressing was applied consisting of foam pads, coban and thigh-high 20-30 mm Hg compression elastic support hose were placed on the patient. The leg was lowered only after compression had been applied and the patient was immediately ambulatory. The patient ambulated 10 minutes under supervision and was without apparent concerns at time of release Post-care instructions include advising patient to keep post-treatment bandages in place and dry for 48 hours, avoid extended periods of inactivity, avoid heavy exercise for one week, wear compression stockings on the treated leg continuously for two weeks, to walk daily for 10 minutes over the next month. The patient was instructed to take an anti-inflammatory medicine as needed and to follow up for color duple (more content not included)... Normal [facility] VC CONSULT FOLLOWUPon 2022 VC CONSULT FOLLOWUP Patient: LEELEE CEDILLO Exam Date: 06/10/2022 : 1950 Gender:F Ordering : DR ALFRED UMAÑA M.D. Admission #: [id number] Family : Order #: [id number] CLICK HERE TO VIEW EXAM RADIOLOGY REPORT PROCEDURE: VEIN CENTER CONSULTATION FOLLOWUP VEIN CENTER - OFFICE VISIT FOLLOW UP COMPARISON: VC CONSULT FOLLOWUP, 05/28/2022. PROGRESS NOTES: The patient reports improvement in right leg symptoms. There has been interval reduction in varicosities. The patient has followed our recommendations to walk 20-30 minutes once or twice per day since the procedure. Physical exam demonstrates decrease in superficial varicosities of the right leg. Persistent varicosities are identified along the left leg. Review of the ultrasound performed the same day demonstrates occlusive thrombus extending throughout the treated vein, see separate report, consistent with a successful ablation. No thrombus extending into or beyond the saphenofemoral junction. The patient expressed a desire to proceed with treatment of remaining incompetent varicosities. The patient was informed that treatment was a process and would require several procedures/sessions. IMPRESSION: 1. Successful ablation of the treated right incompetent branch saphenous veins. 2. Persistent incompetent veins and lower extremity symptoms PLAN: Microfoam chemical ablation of left lower extremity incompetent branch saphenous varicosities. Nurse notes, history and physical were reviewed and confirmed, see attached forms. The nurse was present throughout the physical exam and consultation Dictated by: Julio Lobato M.D. on 06/10/2022 at 12:33 Approved by: Julio Lobato M.D. on 06/10/2022 at 12:36 Normal [facility] VC EXT VENOUS RT LIMITEDon 0 06-10-2022 VC EXT VENOUS RT LIMITED Patient: LEELEE CEDILLO Exam Date: 06/10/2022 : 1950 Gender:F Ordering : DR ALFRED UMAÑA M.D. Admission #: [id number] Family : Order #: [id number] CLICK HERE TO VIEW EXAM RADIOLOGY REPORT PROCEDURE: VEIN CENTER EXTREMITY VENOUS RIGHT LIMITED COMPARISON: VC EXT VENOUS RT LIMITED, 05/28/2022. INDICATIONS: Phlebitis of superficial veins of lower extremity I80.01 TECHNIQUE: Lower extremity malin scale and Duplex Doppler evaluation of the deep venous system from the inguinal ligament through the calf veins. FINDINGS: REGION: Right lower extremity. THROMBI: Negative for DVT. Varithena induced thrombus visualized at dist/med calf, mid/med calf, lat/dist calf, and dist/med thigh. COMPRESSIBILITY: Non-compressible AND partially compressible segments. FLOW: Areas of no flow. OTHER: No patent varicose veins remain CONCLUSION: 1. Successful post ablation occlusion of treated right leg branch saphenous varicosities. Dictated by: Julio Lobato M.D. on 06/10/2022 at 12:31 Approved by: Julio Lobato M.D. on 06/10/2022 at 12:33 Normal [facility] VC INJ FOAM SCLERO W US MLTI on 06-03-2022 VC INJ FOAM SCLERO W US MLTI Patient: LEELEE CEDILLO Exam Date: 06/03/2022 : 1950 Gender:F Ordering : DR ALFRED UMAÑA M.D. Admission #: [id number] Family : Order #: [id number] CLICK HERE TO VIEW EXAM RADIOLOGY REPORT PROCEDURE: VEIN CENTER INJECTION FOAM SCLEROSING SOLUTION WITH ULTRASOUND MULTIPLE VEINS COMPARISON: None. 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 Ultrasound-guided microfoam chemical ablation with Varithena(r) 2. Intraoperative ultrasound guidance Physician: Alfred Umaña M.D. Anesthesia: None Indications for Procedure: 71-year-old female presents with a 40 year history leg pain swelling varicose veins: And venous stasis ulceration along ankle. The patient was referred by the wound clinic. The patient failed conservative medical therapy including medical compression stockings, exercise and analgesics. Prior procedures include intravenous laser ablation Multiple incompetent varicosities of the right leg. Duplex scan showed reflux and enlarged diameters up to 6 mm. The patient underwent informed consent including management options where the complications of infection, bleeding, pain, and skin injury were discussed. Particular attention was spent discussing thrombus extension and deep vein thrombosis as well as the possibility of pulmonary embolus and treatment with oral or injectable blood thinners. Procedure: The patient walked to the procedure room. All applicable staff donned appropriate apparel. A procedure timeout was performed to confirm correct patient, correct extremity, correct procedure, and correct room set-up including presence of all applicable supplies, devices, and drugs. A duplex ultrasound, performed by myself confirmed the location and incompetence of right leg varicose veins and their course marked on the skin together with the dilated tributaries. The extent of treatment of the vein and the associated varicosities was determined through ultrasound mapping. The patient was placed on the operating room table. The limb was prepped. The skin was punctured with a butterfly needle through the skin with the venous access needle and advanced under ultrasound guidance. The target limb was positioned at 45 degrees of elevation in relation to the torso utilizing a foam pad. The Varithena(r) canister was previously activated and the canister was primed and purged as required in the instructions for use. Following injections were made: 2 mL aliquot of Varithena(r) was drawn into a sterile syringe. Injection into a 3 mm varicose vein distal medial right lower leg/ankle 3 mL aliquot of Varithena(r) was drawn into a sterile syringe. Injection into a 3 mm varicose vein mid medial right lower leg 2 mL aliquot of Varithena(r) was drawn into a sterile syringe. Injection into a 3 mm varicose vein lateral distal right leg 6 mL aliquot of Varithena(r) was drawn into a sterile syringe. Injection into a 6 mm varicose vein medial distal right thigh Varithena(r) was slowly administered at 0.5-1.0 cc/second with close observation by ultrasound of its course in the injected veins. A total volume of 13 mL of Varithena(r) was used. During administration of Varithena(r), the patient was asked to dorsiflex the ankle to limit flow of Varithena(r) into perforating veins. Once appropriate spasm had been confirmed in the treated veins, the vascular catheter was removed from the leg and light pressure was applied over the puncture site for hemostasis The common femoral and deep superficial veins were then evaluated for flow and compressibility prior to dressing placement. The lower extremity was kept elevated at 45 degrees above the horizontal and cording material was applied over the saphenous segments and tributaries to allow for eccentric compression over the target vessels including the targeted saphenous vein(s). A multilayer dressing was applied consisting of foam pads, coban and thigh-high 20-30 mm Hg compression elastic support hose were placed on the patient. The leg was lowered only after compression had been applied and the patient was immediately ambulatory. The patient ambulated 10 minutes under supervision and was without apparent concerns at time of release Post-care instructions include advising patient to keep post-treatment bandages in place and dry for 48 hours, avoid extended periods of inactivity, avoid heavy exercise for one week, wear compression stockings on the treated l (more content not included)... Normal [facility] VC CONSULT FOLLOWUPon 2022 VC CONSULT FOLLOWUP Patient: LEELEE CEDILLO Exam Date: 05/28/2022 : 1950 Gender:F Ordering : DR ALFRED UMAÑA M.D. Admission #: [id number] Family : Order #: [id number] CLICK HERE TO VIEW EXAM RADIOLOGY REPORT PROCEDURE: VEIN CENTER CONSULTATION FOLLOWUP VEIN CENTER - OFFICE VISIT FOLLOW UP COMPARISON: None. PROGRESS NOTES: The patient reports severe right hip pain following the procedure, the patient did go to the emergency room. The patient had x-rays and had no fracture or dislocation. Patient was upset ER did not performed injections. The patient subsequently was seen by her primary care physician, Dr. Hoy and had injections for the pain. Patient did wear her compression stocking. The patient had difficulty due to her pain. The patient continues to use walker and does not drive due to pain. Physical exam demonstrates no areas of bruising. No warmth or erythema to suggest cellulitis or thrombophlebitis. No active ulceration. Multiple patent varicose veins are observed. Review of the ultrasound performed the same day demonstrates occlusive thrombus extending throughout the treated right small saphenous vein with heat induced thrombus 2.6 cm from the saphenous popliteal junction. There has been extension of thrombus occluding and incompetent perforating vein which no longer needs treated. Residual varicose veins are identified measuring up to 5 mm. The patient expressed a desire to proceed with treatment of incompetent varicose veins with micro foam chemical ablation. IMPRESSION: 1. Successful ablation of the right small saphenous vein and associated incompetent perforating vein 2. Persistent right leg varicose veins PLAN: Micro foam chemical ablation right leg Nurse notes, history and physical were reviewed and confirmed, see attached forms. The nurse was present throughout the physical exam and consultation Dictated by: Alfred Umaña MD on 05/28/2022 at 11:42 Approved by: Alfred Umaañ MD on 05/28/2022 at 11:44 Normal [facility] VC EXT VENOUS RT LIMITEDon 0 05-28-2022 VC EXT VENOUS RT LIMITED Patient: LEELEE CEDILLO Exam Date: 05/28/2022 : 1950 Gender:F Ordering : DR ALFRED UMAÑA M.D. Admission #: [id number] Family : Order #: [id number] CLICK HERE TO VIEW EXAM RADIOLOGY REPORT PROCEDURE: VEIN CENTER EXTREMITY VENOUS RIGHT LIMITED COMPARISON: None. INDICATIONS: Phlebitis and thrombophlebitis of superficial veins of right lower extremity I80.01 TECHNIQUE: Lower extremity malin scale and Duplex Doppler evaluation of the deep venous system from the inguinal ligament through the calf veins. FINDINGS: REGION: Right lower extremity. THROMBI: Negative for DVT. Heat induced thrombus in right SSV 2.6 cm from SPJ and extends to distal lower leg. Thrombus in metals sales representative distal medial lower leg 2.8 mm from PTV. COMPRESSIBILITY: Non-compressible segments corresponding to thrombus. FLOW: Absent flow corresponding to thrombus. *Exam performed in accordance with [facility] practice guidelines- Peripheral venous ultrasound, July 14, 2009. CONCLUSION: Post ablation occlusion of the right small saphenous vein with heat induced thrombus 2.6 cm from the saphenous popliteal junction. Incidental occlusion of an associated incompetent perforating vein Dictated by: Alfred Umaña MD on 05/28/2022 at 11:29 Approved by: Alfred Umaña MD on 05/28/2022 at 11:30 Normal [facility] CBC AUTO DIFFon 05-21-2022 BASO # 0.1 103/ul Normal 0.0-0.1 [facility] Comment on above: Performed By: #### C BC #### [facility] [address] [place] [address] Dr. Salvador Yung Basophils/100 WBC (Bld) 0.6 % Normal 0.2-2.0 [facility] Comment on above: Performed By: #### C BC #### [facility] [address] [place] [address] Dr. Salvador Yung EO # 0.1 103/ul Normal 0.0-0.7 [facility] Comment on above: Performed By: #### C BC #### [facility] [address] [place] [address] Dr. Salvador Yung Eosinophils/100 WBC (Bld) 0.6 % Critically low 0.9-7.0 [facility] Comment on above: Performed By: #### C BC #### [facility] [address] [place] [address] Dr. Salvador Yung Erythrocyte distribution width (RBC) [Ratio] 12.4 % Normal 11.0-15.0 [facility] Comment on above: Performed By: #### C BC #### [facility] [address] [place] [address] Dr. Salvador Yung Hematocrit (Bld) [Volume fraction] 43.1 % Normal 36.0-48.0 [facility] Comment on above: Performed By: #### C BC #### [facility] [address] [place] [address] Dr. Salvador Yung Hemoglobin (Bld) [Mass/Vol] 13.8 g/dL Normal 12.0-16.0 [facility] Comment on above: Performed By: #### C BC #### [facility] [address] [place] [address] Dr. Salvador Yung IG # 0.06 10e3/ul Critically high 0.00-0.03 [facility] Comment on above: Performed By: #### C BC #### [facility] [address] [place] [address] Dr. Salvador Yung IG % 0.7 % Critically high 0.0-0.5 [facility] Comment on above: Performed By: #### C BC #### [facility] [address] [place] [address] Dr. Salvador Yung LYMPH # 1.7 103/ul Normal 1.2-3.8 [facility] Comment on above: Performed By: #### C BC #### [facility] [address] [place] [address] Dr. Salvador Yung Lymphocytes/100 WBC (Bld) 20.2 % Critically low 20.5-60.0 [facility] Comment on above: Performed By: #### C BC #### [facility] [address] [place] [address] Dr. Salvador Yung MANUAL DIFF REQ NO Normal [facility] Comment on above: Performed By: #### C BC #### [facility] [address] [place] [address] Dr. Salvador Yung MCH (RBC) [Entitic mass] 30.1 pg Normal 26.7-34.0 [facility] Comment on above: Performed By: #### C BC #### [facility] [address] [place] [address] Dr. Salvador Yung MCHC (RBC) [Mass/Vol] 32.0 g/dL Normal 29.9-35.2 [facility] Comment on above: Performed By: #### C BC #### [facility] [address] [place] [address] Dr. Salvador Yung MCV (RBC) [Entitic vol] 93.9 fL Normal 81.0-99.0 [facility] Comment on above: Performed By: #### C BC #### [facility] [address] [place] [address] Dr. Salvador Yung MONO # 0.5 103/ul Normal 0.3-0.8 [facility] Comment on above: Performed By: #### C BC #### [facility] [address] [place] [address] Dr. Salvador Yung Monocytes/100 WBC (Bld) 6.1 % Normal 1.7-12.0 [facility] Comment on above: Performed By: #### C BC #### [facility] [address] [place] [address] Dr. Salvador Yung NEUT # 6.1 103/ul Normal 1.4-6.5 [facility] Comment on above: Performed By: #### C BC #### [facility] [address] [place] [address] Dr. Salvador Yung Neutrophils/100 WBC (Bld) 71.8 % Normal 43.0-75.0 [facility] Comment on above: Performed By: #### C BC #### [facility] [address] [place] [address] Dr. Salvador Yung Platelet mean volume (Bld) [Entitic vol] 8.2 fL Critically low 9.5-13.5 [facility] Comment on above: Performed By: #### C BC #### [facility] [address] [place] [address] Dr. Salvador Yung PLT 246 103/ul Normal 150-450 [facility] Comment on above: Performed By: #### C BC #### [facility] [address] [place] [address] Dr. Salvador Yung RBC 4.59 106/ul Normal 4.20-5.40 [facility] Comment on above: Performed By: #### C BC #### [facility] [address] [place] [address] Dr. Salvador Yung WBC 8.5 103/ul Normal 4.0-11.0 [facility] Comment on above: Performed By: #### C BC #### [facility] [address] [place] [address] Dr. Salvador Yung FREE T3on 05-21-2022 FREE T3 2.14 pg/mlL Critically low 2.18-3.98 [facility] Comment on above: Performed By: #### P OCGLUC #### [facility] [address] [address] [address] Salvador Yung GLYCOHEMOGLOBIN A1Con 2022 ADA RECOMMENDATION SEE BELOW Normal [facility] Comment on above: Result Comment: ADA RECOMMENDED LIMIT 4.0 - 6.0 ADA THERAPEUTIC TARGET < 7.0 ACTION SUGGESTED > 7.0 Performed By: #### P OCGLUC #### [facility] [address] [address] [address] Salvador Yung Glucose [Mass/Vol] 100 mg/dL Normal [facility] Comment on above: Performed By: #### P OCGLUC #### [facility] [address] [place] [address] Dr. Salvador Yung HbA1c (Bld) [Mass fraction] 5.1 % Normal 4.5-6.2 [facility] Comment on above: Performed By: #### P OCGLUC #### [facility] [address] [place] [address] Dr. Salvador Yung LIPID PROFILEon 05-21-2022 CHOL-HDL RATIO NORM SEE BELOW Normal [facility] Comment on above: Result Comment: 3.3 - 4.4 LOW RISK 4.4 - 7.1 AVERAGE RISK 7.1 - 11.0 MODERATE RISK >11.0 HIGH RISK Performed By: #### P OCGLUC #### [facility] [address] [address] [address] Salvador Yung Cholesterol [Mass/Vol] 164 mg/dL Normal <=200 [facility] Comment on above: Performed By: #### P OCGLUC #### [facility] [address] [address] [address] Salvador Yung Cholesterol in HDL [Mass/Vol] 61 mg/dL Critically high 40-60 [facility] Comment on above: Performed By: #### P OCGLUC #### [facility] [address] [place] [address] Dr. Salvador Yung Cholesterol in LDL [Mass/Vol] 90.2 mg/dL Normal [facility] Comment on above: Performed By: #### P OCGLUC #### [facility] [address] [address] [address] Salvador Yung Cholesterol.total/ Cholesterol in HDL [Mass ratio] 2.7 {ratio} Normal [facility] Comment on above: Performed By: #### P OCGLUC #### [facility] [address] [address] [address] Salvador Yung HDL NORMAL > or = 60 mg/dl - LO W CARDIOVASCULAR RISK <40 mg/dl - HIGH CARDIOVASCULAR RISK Normal [facility] Comment on above: Performed By: #### P OCGLUC #### [facility] [address] [address] [address] Salvador Yung LDL CALC NORMAL SEE BELOW Normal [facility] Comment on above: Result Comment: <100 mg/dl OPTIMAL 100 - 129 mg/dl NEAR OR ABOVE OPTIMAL 130 - 159 mg/dl BORDERLINE HIGH 160 - 189 mg/dl HIGH >190 mg/dl VERY HIGH Performed By: #### P OCGLUC #### [facility] [address] [address] [address] Salvador Yung Triglyceride [Mass/Vol] 64 mg/dL Normal <=150 [facility] Comment on above: Performed By: #### P OCGLUC #### [facility] [address] [address] [address] Salvador Yung VLDL CALC 12.8 mg/dL Normal [facility] Comment on above: Performed By: #### P OCGLUC #### [facility] [address] [address] [address] Salvador Yung PROF 14(COMP METB)on 023 Albumin [Mass/Vol] 3.2 g/dL Critically low 3.4-5.0 [facility] Comment on above: Performed By: #### P OCGLUC #### [facility] [address] [address] [address] Salvador Yung Albumin/Globulin [Mass ratio] 0.7 {ratio} Normal [facility] Comment on above: Performed By: #### P OCGLUC #### [facility] [address] [address] [address] Salvador Yung ALP [Catalytic activity/Vol] 68 U/L Normal 46-116 [facility] Comment on above: Performed By: #### P OCGLUC #### [facility] [address] [place] [address] Dr. Salvador Yung ALT [Catalytic activity/Vol] 25 U/L Normal 14-59 [facility] Comment on above: Performed By: #### P OCGLUC #### [facility] [address] [place] [address] Dr. Salvador Yung Anion gap [Moles/Vol] 11.8 mmol/L Normal [facility] Comment on above: Performed By: #### P OCGLUC #### [facility] [address] [place] [address] Dr. Salvador Yung AST [Catalytic activity/Vol] 20 U/L Normal 15-37 [facility] Comment on above: Performed By: #### P OCGLUC #### [facility] [address] [place] [address] Dr. Salvador Yung Bilirubin [Mass/Vol] 0.5 mg/dL Normal 0.2-1.0 [facility] Comment on above: Performed By: #### P OCGLUC #### [facility] [address] [place] [address] Dr. Salvador Yung Calcium [Mass/Vol] 8.9 mg/dL Normal 8.5-10.1 [facility] Comment on above: Performed By: #### P OCGLUC #### [facility] [address] [place] [address] Dr. Salvador Yung Chloride [Moles/Vol] 105 mmol/L Normal 98-107 [facility] Comment on above: Performed By: #### P OCGLUC #### [facility] [address] [place] [address] Dr. Salvador Yung CO2 [Moles/Vol] 29.9 mmol/L Normal 21.0-32.0 [facility] Comment on above: Performed By: #### P OCGLUC #### [facility] [address] [place] [address] Dr. Salvador Yung Creatinine [Mass/Vol] 0.74 mg/dL Normal 0.55-1.02 [facility] Comment on above: Performed By: #### P OCGLUC #### [facility] [address] [address] [address] Salvador Yung EGFR-AF TURKS AND CAICOS ISLANDER >60 Normal >=60 [facility] Comment on above: Performed By: #### P OCGLUC #### [facility] [address] [address] [address] Salvador Yung EGFR-NON AF TURKS AND CAICOS ISLANDER >60 Normal >=60 [facility] Comment on above: Performed By: #### P OCGLUC #### [facility] [address] [place] [address] Dr. Salvador Yung Globulin (S) [Mass/Vol] 4.3 g/dL Normal [facility] Comment on above: Performed By: #### P OCGLUC #### [facility] [address] [place] [address] Dr. Salvador Yung Glucose [Mass/Vol] 88 mg/dL Normal 74-106 [facility] Comment on above: Performed By: #### P OCGLUC #### [facility] [address] [place] [address] Dr. Salvador Yung Potassium [Moles/Vol] 3.7 mmol/L Normal 3.5-5.1 [facility] Comment on above: Performed By: #### P OCGLUC #### [facility] [address] [place] [address] Dr. Salvador Yung Protein [Mass/Vol] 7.5 g/dL Normal 6.4-8.2 [facility] Comment on above: Performed By: #### P OCGLUC #### [facility] [address] [address] [address] Salvador Yung Sodium [Moles/Vol] 143 mmol/L Normal 136-145 [facility] Comment on above: Performed By: #### P OCGLUC #### [facility] [address] [place] [address] Dr. Salvador Yung Urea nitrogen [Mass/Vol] 11.0 mg/dL Normal 7.0-18.0 [facility] Comment on above: Performed By: #### P OCGLUC #### [facility] [address] [place] [address] Dr. Salvador Yung Urea nitrogen/Creatinin e [Mass ratio] 14.9 mg/mg Normal [facility] Comment on above: Performed By: #### P OCGLUC #### [facility] [address] [place] [address] Dr. Salvador Yung T4on 05-21-2022 T4 [Mass/Vol] 11.60 ug/dL Normal 4.80-13.90 [facility] Comment on above: Performed By: #### P OCGLUC #### [facility] [address] [place] [address] Dr. Salvador Yung TSHon 05-21-2022 TSH 0.165 uIU/mL Critically low 0.358-3.74 0 [facility] Comment on above: Performed By: #### P OCGLUC #### [facility] [address] [place] [address] Dr. Salvador Yung VC ENDOVENOUS ABL 1ST V RTon 05-21-2022 VC ENDOVENOUS ABL 1ST V RT Patient: LEELEE CEDILLO Exam Date: 05/21/2022 : 1950 Gender:F Ordering : DR ALFRED UMAÑA M.D. Admission #: [id number] Family : Order #: [id number] CLICK HERE TO VIEW EXAM RADIOLOGY REPORT PROCEDURE: VEIN CENTER ENDOVENOUS ABLATION FIRST VEIN RIGHT SMALL SAPHENOUS VEIN COMPARISON: None. INDICATIONS: Pain co-occurrent and due to varicose veins of bilateral legs I83.813 OPERATIVE REPORT: The risks and benefits of the procedure had been previously discussed, and were rediscussed at length. Informed written consent was obtained by me and Jameson avila. Time out procedure was performed. The right lower extremity was prepared and draped in the usual sterile fashion to allow knee flexion in the sterile field. Duplex ultrasound probe was draped in a sterile cover, sterile transmission gel was used. Venous mapping was performed with the areas of dilation and large tributaries marked. The total length was 34 cm from the entry 3 cm above the lateral malleolus to the distal thigh, this was a thigh extension. The diameter of the small saphenous vein ranged from 5-7 mm. A 30 gauge needle and 1% buffered lidocaine was used to anesthetize the entry site. A 4 mm incision was made with a scalpel and the saphenous vein was entered percutaneously under direct ultrasound guidance with a micropuncture set, 2 sticks were successful in gaining access. A micro-guide wire was inserted and the needle removed. A micro-set including a dilator was inserted over the microwire and the needle and dilator were removed. A 0.018 guide wire was inserted through the micro-set and threaded through the saphenous vein. The dilator was removed and an introducer sheath was inserted over the wire. The dilator and wire were removed and the 600 micron fiber was introduced and placed and positioned so that it extended beyond the sheath. Final position of the fiber was determined by ultrasound guidance and duplex imaging. Tumescent anesthetic was delivered by ultrasound guidance. 175 cc of fluid was delivered along the entire course of the saphenous vein. The solution consisted of 500 cc of normal saline with 20mL of 1% lidocaine and 10 mL of sodium bicarbonate. A final positioning check was made. The energy source was turned on by means of the foot pedal and the fiber and sheath were withdrawn. The total number of Joules delivered was 1623. The laser was active for 203 seconds under continuous pulse, average laser use of 8 J. Laser start time 1:41 p.m. May 21, 2022. Laser stop time 1:45 p.m. May 21, 2022. A duplex ultrasound revealed compressibility and flow at the saphenofemoral junction immediately after the procedure. Hemostasis at the access site was achieved. The skin incision of the saphenous vein was closed with a 4 x 4. A compression stocking was applied. Postop instructions were given. A follow up appointment was recommended and scheduled. The patient tolerated the procedure well and was discharged in good condition. CONCLUSION: 1. Technically successful endovenous laser ablation of the right small saphenous vein. Dictated by: Alfred Umaña MD on 05/21/2022 at 13:49 Approved by: Alfred Umaña MD on 05/21/2022 at 13:51 Normal [facility] VITAMIN D 25 OHon 05-21-2022 VIT D 25-OH 25.1 ng/mL Normal [facility] Comment on above: Performed By: #### V ITAD #### [facility] [address] [place], [place] [address] Dr. Salvador Yung VIT D RANGES SEE BELOW Normal [facility] Comment on above: Result Comment: <20 ng/mL Vit D deficient 20 - <30 ng/mL Vit D insufficient 30 - 100 ng/mL Vit D sufficient >100 ng/mL Potential Toxicity Performed By: #### V ITAD #### [facility] [address] [place], [place] [address] Dr. Salvador Yung XR HIP LT 2 3V W PELVISon XR HIP LT 2 3V W PELVIS EXAM: XR HIP LT 2 3V W PELVIS HISTORY: Pain in lower limb COMPARISON: None. TECHNIQUE: An AP view of the pelvis, and 2 additional views of the left hip are performed. FINDINGS: There has been a left total hip arthroplasty. The orthopedic hardware is intact. The bones are demineralized. There is no acute fracture. There is mild joint space narrowing within the right hip. There is partial imaging of orthopedic hardware within the lower lumbar spine. Unremarkable soft tissues. IMPRESSION: Postoperative changes to the lower lumbar spine and left hip. No acute bony abnormality. Electronically authenticated by: MARI LORENZO Date: 2022-05-21 16:26 Normal [facility] VC COMP CONSULTATIONon 05-01 VC COMP CONSULTATION Patient: LEELEE CEDILLO Exam Date: 05/01/2022 : 1950 Gender:F Ordering : DR. ADELE JimPMaribel Admission #: [id number] Family : Order #: [id number] CLICK HERE TO VIEW EXAM CORRECTION to PLAN #3. Corrected on: 05/01/2022; RADIOLOGY REPORT PROCEDURE: VC VEIN CENTER CONSULTATION VEIN CENTER - OFFICE VISIT INITIAL COMPARISON: None. PROGRESS NOTES: [age] year old female who presents with a 40 year history of dilated veins, leg pain and cramping, swelling. The patient's right leg symptoms are worse than the left. There has been a progression of symptoms recently. This increases with standing and prolonged leg dependency. The patient describes an improvement with rest and elevation. The patient denies any signs and symptoms to suggest arterial ischemia. The patient describes a family history varicose veins on maternal side. The patient has drinking and smoking history of occasional alcohol consumption. Patient has a past medical history significant for prior vein stripping, arthritis, hypertension, hypothyroidism. The patient denies a history of deep venous thrombus or pulmonary embolus. See separate history and physical for medication list. Prior vein stripping of great saphenous vein bilaterally in the with 2nd treatment in the . No prior treatment for varicose or spider veins. Current use of compression stockings. After review of nurse notes, history and physical exam I discussed at length the pathophysiology of venous hypertension and possible treatments, therapies and strategies available. We discussed at length the importance of elevating the lower extremities above the level of the heart, increased physical activity and compression stocking use. Ultrasound venous reflux study performed today was discussed at length with the patient. The report demonstrates dilated, incompetent right small saphenous vein, right lower extremity incompetent metals sales representative veins, and bilateral lower extremity incompetent branch saphenous varicosities. Absent great saphenous vein bilaterally consistent with history of prior vein stripping.. PHYSICAL EXAM: The right leg demonstrates multiple varicosities, numerous reticular and spider veins, large open lateral distal lower extremity ulceration with slightly more cephalad scabbed over wound, moderate edema at this time (patient describes much more extensive edema), mild skin discoloration. The left leg demonstrates multiple varicosities, numerous reticular and spider veins, no ulceration, mild edema, no skin discoloration. Both thighs, legs and feet were symmetrically warm to the touch. Good posterior tibial and dorsalis pedis pulses were present bilaterally. IMPRESSION: 1. Bilateral lower extremity venous insufficiency, right greater than left 2. Bilateral lower extremity varicose veins 3. Right greater than left lower extremity subcutaneous edema 4. No flow significant arterial disease 5. CEAP: C6, EC, AP, AR PLAN: 1. Continued use of compression stockings 2. Elevated legs and increased physical activity symptomatic relief 3. Endovenous laser ablation of right small saphenous vein and metals sales representative vein. 4. Microfoam chemical ablation of dilated, incompetent branch saphenous varicosities bilaterally. 5. Sclerotherapy of numerous reticular and spider veins bilaterally. Nurse notes, history and physical were reviewed and confirmed, see attached forms. The nurse was present throughout the physical exam and consultation Dictated by: Julio Lobato M.D. on 05/01/2022 at 14:29 Approved by: Julio Lobato M.D. on 05/01/2022 at 14:45 Dictated by: Julio Lobaot M.D. on 05/01/2022 at 15:27 Approved by: Julio Lobato M.D. on 05/01/2022 at 15:27 Normal [facility] VC VENOUS REFLUX SAMI LMTon 0 05-01-2022 VC VENOUS REFLUX SMAI LMT Patient: LEELEE CEDILLO Exam Date: 05/01/2022 : 1950 Gender:F Ordering : DR. ADELE FLEMING D.P.M. Admission #: [id number] Family : DR ALFRED UMAÑA M.D. Order #: [id number] CLICK HERE TO VIEW EXAM RADIOLOGY REPORT PROCEDURE: VEIN CENTER ULTRASOUND VENOUS REFLUX BILATERAL LIMTED COMPARISON: None. INDICATIONS: Pain co-occurrent and due to varicose veins of bilateral legs TECHNIQUE: Duplex imaging of the lower extremity to assess the deep and superficial venous system for the presence of deep or superficial venous incompetence and to document the location and severity of disease. The study includes evaluation of the great saphenous vein (GSV), anterior accessory saphenous vein (AASV) and small saphenous vein (SSV). Patient scanned in reverse Trendelenburg and standing. FINDINGS: RIGHT LOWER EXTREMITY: Saphenofemoral Junction Reflux: Yes 6.9mm 3.7 sec GSV: Diam (mm) Reflux/ Time (sec) Proximal Thigh N/A Mid Thigh N/A Distal Thigh N/A Prox Calf N/A Mid Calf N/A Saphenopopliteal Junction Reflux: 5.7mm Yes 2.1 SSV: Proximal Calf 5.3 Yes 1.4 Mid Calf 5.1 Yes 0.5 AASV: Not present Proximal Thigh Mid Thigh Distal Thigh Thrombi: No acute or chronic thrombus visualized Compressibility: Normal Flow: Normal Preforator: Lateral ankle (area of wound) 3.8mm with 1.2s reflux. Dist/med calf 2.8mm with 0s reflux. Mid/med calf 2.5mm with 0s reflux. Tech Note: Incompetent SPJ and SSV. GSV has been previously stripped. Patent varicose vein prox/med calf 3.5mm with 0.8s reflux. Patent varicose vein dist/med thigh 4.6mm with 0.6s reflux. Patent varicose vein mid/med thigh 7.4mm with 0.6s reflux. LEFT LOWER EXTREMITY: Saphenofemoral Junction Reflux: Yes 5.1 mm 0.4 sec GSV: Diam (mm) Reflux/Time (sec) Proximal Thigh N/A Mid Thigh N/A Distal Thigh N/A Prox Calf N/A Mid Calf N/A Saphenopopliteal Junction Relux: 4.6 mm No SSV: Proximal Calf 3.0 Yes 0.6 Mid Calf 2.8 No AASV: Proximal Thigh 3.5 Yes 0.4 Mid Thigh Distal Thigh Thrombi: No acute or chronic thrombus visualized Compressibility: Normal Flow: Normal Bareback Rider: Dist/med calf 2.6mm with 0s reflux. Mid/med calf 3.5mm with 0s reflux. Tech Note: GSV has been previously stripped. Patent varicose vein mid/med calf 2.3mm with 0.5s reflux. Patent varicose vein prox/med calf 3.4mm with 1.2s reflux. Patent varicose vein dist/med thigh 5.4mm with 0.8s reflux. CONCLUSION: 1. Dilated, incompetent right small saphenous vein. 2. Dilated, incompetent metals sales representative veins and bilateral lower extremity branch saphenous varicosities. 3. Consultation for endovenous laser ablation is recommended. Dictated by: Julio Lobato M.D. on 05/01/2022 at 14:06 Approved by: Julio Lobato M.D. on 05/01/2022 at 14:28 Normal [facility] Coding Summary.on 03-11-2022 Coding Summary. Normal [facility] ED Traumaon 03-09-2022 ED Trauma [id number]#[id number]:127 Normal [facility] Consent for Procedure/Surger yon 03-08-2022 Consent for Procedure/Surgery [id number]#[id number]:127 Normal [facility] Consent for Treatmenton 02-18 Consent for Treatment [id number]#1.00CD:127 Normal [facility] Discharge Instructionson Discharge Instructions [id number]#1.00CD:127 Normal [facility] ED Clinical Summaryon 2021 ED Clinical Summary Normal [facility] ED Note-Physicianon 03-08-20 ED Note-Physician Normal [facility] Comment on above: Result Comment: Elec tronically Signed By: Wm Nagy DO.br\Date and Time Signed: 03/08/22 21:11 EST ED Patient Education Noteon 03-08-2022 ED Patient Education Note Normal [facility] ED Patient Summaryon 022 ED Patient Summary Normal [facility] EMS Documentationon 03-08-20 EMS Documentation Normal [facility] EMS Documentation Normal [facility] Monitor Recordon 03-08-2022 Monitor Record [id number]:127 Normal [facility] Monitor Record [id number]:127 Normal [facility] Pre-Arrival Noteon Pre-Arrival Note Normal [facility] Respiratory Therapy Noteson 03-08-2022 Respiratory Therapy Notes conscious sedation on Eaton, Leelee. Used co2 monitor and one liter of 02. patient maintained 38 co2 and 99 O2. Last approx 40 min. Normal [facility] XR Hip 2-3 Views Left + Pelv yasir 03-08-2022 XR Hip 2-3 Views Left + Pelvis Normal [facility] XR Hip 2-3 Views Left + Pelvis Normal [facility] BLEEDING TIMEon 03-06-2022 BLEEDING TIME 10.5 min Critically high 1.0-8.0 [facility] Comment on above: Performed By: #### B LTM #### [facility] [address] [place] [address] Dr. Salvador Yung CBC AUTO DIFFon 03-06-2022 BASO # 0.1 103/ul Normal 0.0-0.1 [facility] Comment on above: Performed By: #### C BC #### [facility] [address] [address] [address] Salvador Yung Basophils/100 WBC (Bld) 0.7 % Normal 0.2-2.0 [facility] Comment on above: Performed By: #### C BC #### [facility] [address] [address] [address] Salvador Yung EO # 0.1 103/ul Normal 0.0-0.7 [facility] Comment on above: Performed By: #### C BC #### [facility] [address] [address] [address] Salvador Yung Eosinophils/100 WBC (Bld) 0.7 % Critically low 0.9-7.0 [facility] Comment on above: Performed By: #### C BC #### [facility] [address] [place] [address] Dr. Salvador Yung Erythrocyte distribution width (RBC) [Ratio] 12.9 % Normal 11.0-15.0 [facility] Comment on above: Performed By: #### C BC #### [facility] [address] [place] [address] Dr. Salvador Yung Hematocrit (Bld) [Volume fraction] 41.3 % Normal 36.0-48.0 [facility] Comment on above: Performed By: #### C BC #### [facility] [address] [place] [address] Dr. Salvador Yung Hemoglobin (Bld) [Mass/Vol] 13.7 g/dL Normal 12.0-16.0 [facility] Comment on above: Performed By: #### C BC #### [facility] [address] [place] [address] Dr. Salvador Yung IG # 0.05 10e3/ul Critically high 0.00-0.03 [facility] Comment on above: Performed By: #### C BC #### [facility] [address] [place] [address] Dr. Salvador Yung IG % 0.7 % Critically high 0.0-0.5 [facility] Comment on above: Performed By: #### C BC #### [facility] [address] [place] [address] Dr. Salvador Yung LYMPH # 1.4 103/ul Normal 1.2-3.8 [facility] Comment on above: Performed By: #### C BC #### [facility] [address] [place] [address] Dr. Salvador Yung Lymphocytes/100 WBC (Bld) 18.9 % Critically low 20.5-60.0 [facility] Comment on above: Performed By: #### C BC #### [facility] [address] [place] [address] Dr. Salvador Yung MANUAL DIFF REQ NO Normal [facility] Comment on above: Performed By: #### C BC #### [facility] [address] [place] [address] Dr. Salvador Yung MCH (RBC) [Entitic mass] 30.3 pg Normal 26.7-34.0 [facility] Comment on above: Performed By: #### C BC #### [facility] [address] [place] [address] Dr. Salvador Yung MCHC (RBC) [Mass/Vol] 33.2 g/dL Normal 29.9-35.2 [facility] Comment on above: Performed By: #### C BC #### [facility] [address] [place] [address] Dr. Salvador Yung MCV (RBC) [Entitic vol] 91.4 fL Normal 81.0-99.0 [facility] Comment on above: Performed By: #### C BC #### [facility] [address] [place] [address] Dr. Salvador Yung MONO # 0.7 103/ul Normal 0.3-0.8 [facility] Comment on above: Performed By: #### C BC #### [facility] [address] [place] [address] Dr. Salvador Yung Monocytes/100 WBC (Bld) 9.9 % Normal 1.7-12.0 [facility] Comment on above: Performed By: #### C BC #### [facility] [address] [place] [address] Dr. Salvador Yung NEUT # 5.2 103/ul Normal 1.4-6.5 [facility] Comment on above: Performed By: #### C BC #### [facility] [address] [place] [address] Dr. Salvador Yung Neutrophils/100 WBC (Bld) 69.1 % Normal 43.0-75.0 [facility] Comment on above: Performed By: #### C BC #### [facility] [address] [place] [address] Dr. Salvador Yung Platelet mean volume (Bld) [Entitic vol] 7.9 fL Critically low 9.5-13.5 [facility] Comment on above: Performed By: #### C BC #### [facility] [address] [place] [address] Dr. Salvador Yung PLT 223 103/ul Normal 150-450 [facility] Comment on above: Performed By: #### C BC #### [facility] [address] [place] [address] Dr. Salvador Yung RBC 4.52 106/ul Normal 4.20-5.40 [facility] Comment on above: Performed By: #### C BC #### [facility] [address] [place] [address] Dr. Salvador Yung WBC 7.5 103/ul Normal 4.0-11.0 [facility] Comment on above: Performed By: #### C BC #### [facility] [address] [place] [address] Dr. Salvador Yung IRONon 03-06-2022 Iron [Mass/Vol] 83.0 ug/dL Normal 50.0-170.0 [facility] Comment on above: Performed By: #### I ESTEFANY #### [facility] [address] [place] [address] Dr. Salvador Yung PROTIMEon 03-06-2022 INR Coag (PPP) [Relative time] 0.95 {INR} Normal [facility] Comment on above: Performed By: #### P TT, PT #### [facility] [address] [place], [place] [address] Dr. Salvador Yung INR GUIDELINES SEE BELOW Normal [facility] Comment on above: Result Comment: YOJANA RED INR: 2.0 - 3.0 CONDITIONS NOT LISTED BELOW 2.5 - 3.5 FOR PROSTHETIC HEART VALVE REPLACEMENT 2.5 - 3.5 RECURRENT THROMBOSIS Performed By: #### P TT, PT #### [facility] [address] [id number] [address] Salvador Yung PT Coag (PPP) [Time] 10.3 s Normal 9.0-11.6 [facility] Comment on above: Performed By: #### P TT, PT #### [facility] [address] [address] [address] Salvador Yung PTTon 03-06-2022 aPTT Coag (Bld) [Time] 22.1 s Critically low 22.3-36.2 [facility] Comment on above: Performed By: #### P TT, PT #### [facility] [address] [place] [address] Dr. Salvador Yung SCREENING MAMMOGRAM W/DANIEL, BILATERAL*on 02-28-2022 SCREENING MAMMOGRAM W/DANIEL, BILATERAL* CLINICAL HISTORY: Screening Mammogram COMPARISON: 02/26/2021, 11/24/2019, and 08/23/2018. TECHNIQUE: 2D and 3D Tomosynthesis of the right and left breasts was performed. FINDINGS: There are scattered fibroglandular densities within each breast, with stable asymmetry, a few small groups of microcalcifications, biopsy clips within the left breast. There are no suspicious masses, areas of suspicious microcalcifications or areas of architectural distortion identified. No evidence of skin thickening. IMPRESSION: BIRADS 2 : BENIGN FINDINGS, NORMAL INTERVAL FOLLOW UP. Board certified radiologist. Accredited by the ACR and FDA. MAMMOGRAPHY IS VERY IMPORTANT TO YOUR HEALTH. CURRENT [employer] AND [employer] AND [employer] GUIDELINES RECOMMENDS ANNUAL MAMMOGRAPHY BEGINNING AT AGE 41. THIS FACILITY USUALLY USES A REMINDER SYSTEM TO ENSURE ALL POSITIONS RECEIVED REMINDER NOTIFICATIONS AT THE TIME BASED ON THE RECOMMENDATIONS OF THIS EXAM. Report reported and signed by Julio Martines on 02/28/2022 1602 Normal [place] [employer] Covid-19 PCR (CVDTB)on 12-19 SARS-CoV-2 (COVID-19) RNA VIVIANA+probe Ql (Unsp spec) Not detected Normal NOT DETECTED [facility] Comment on above: Result Comment: This test is not yet approved or cleared by the [place] FDA. When there are no FDA-approved or cleared tests available, and other criteria are met, FDA can make tests available under an emergency access mechanism called an Emergency Use Authorization (EUA). The EUA for this test is supported by the [place] of Health and Human Service's (HHS's) declaration that circumstances exist to justify the emergency use of in vitro diagnostics for the detection and/or diagnosis of the virus that causes COVID-19. This EUA will remain in effect (meaning this test can be used) for the duration of the COVID-19 declaration justifying emergency of IVDs, unless it is terminated or revoked by FDA (after which the test may no longer be used). When diagnostic testing is negative, the possibility of a false negative should be considered in the context of a patient's recent exposures and the presence of clinical signs and symptoms consistent with SARS-CoV-2. Performed By: #### P OCGLUC #### [facility] [address] [place] [address] Dr. Salvador Yung MRI [facility] CONon 12-11-19 MRI [facility] CON HISTORY: Chronic low back pain with left leg pain. Prior low back surgery. Lumbar disc disease. MRI [facility] CON: 12/09/2021 10:11 AM EDT COMPARISON: MRI lumbar spine 12/19/2016. TECHNIQUE: Sagittal T1, T2, STIR, axial T1 and axial T2-weighted images of the lumbar spine were obtained. FINDINGS: There appears to be a mild rotatory dextroconvex scoliosis of the lumbar spine. There are postsurgical changes now seen from prior laminectomies at the L2-L3 through the L4-L5 level. There are postsurgical changes again seen from remote posterior fusion surgery at the L4-L5 level with solid osseous fusion across this disc space. There is also partial osseous fusion across the L3-L4 disc space. There are posterior rods and pedicle screws now seen at the T11, T12, L1, L3, and L4 levels. There are also intervertebral disc spacers within the T12-L1 and L2-L3 level. There has been development of reversal of the normal lumbar lordosis. No compression fracture is seen. There has been development of moderate-severe discogenic disease at the L5-S1 level with adjacent Schmorl's node deformities and a large amount of type 1 Modic endplate change at this level. There is mild prevertebral soft tissue edema. No paraspinal fluid collection is seen. The bone marrow signal intensity appears age appropriate. L1-L2 level: There is a small posterior osteophyte, but this does not appear to cause significant spinal canal stenosis or foraminal narrowing. L2-L3 level: A small left foraminal osteophyte appears to cause mild left foraminal narrowing. No right foraminal narrowing or central spinal canal stenosis is seen. L3-L4 level: No recurrent disc protrusion, spinal canal stenosis, or foraminal narrowing is seen. L4-L5 level: No recurrent disc protrusion or spinal canal stenosis is seen. A posterior osteophyte appears to combine with facet joint hypertrophy to cause mild bilateral foraminal narrowing. L5-S1 level: There is a new posterior disc bulge which appears to combine with disc space narrowing and severe facet joint arthropathy to cause severe bilateral foraminal narrowing and mild spinal canal stenosis. There are facet joint effusions bilaterally. No paraspinal fluid collection is seen. Since the prior MRI there has been development of clumping of the nerve roots within the thecal sac from the L1-L2 level through the L3-L4 level. IMPRESSION: 1. Since the prior MRI of 12/19/2016 there has been development of moderate-severe discogenic disease at the L5-S1 level with adjacent Schmorl's node deformities and a large amount of adjacent type 1 Modic endplate change which may be a source of pain. A diffuse disc bulge at this level now combines with disc space narrowing and severe facet joint arthropathy to cause severe bilateral foraminal narrowing and mild spinal canal stenosis at this level. No other spinal canal stenosis of the lumbar spine is seen. 2. There are extensive postsurgical changes from prior posterior decompression and posterior fusion surgery at the visualized T11 level through the L5 level as described above without evidence of recurrent disc protrusion or spinal canal stenosis at these levels. 3. 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 Electronically authenticated by: SARA LAUREN Date: 2021-12-10 12:11 Normal [facility] COVID-19 Positive/Negativeon 05-04-2020 COVID-19 Positive/Negative Negative Negative [facility] Comment on above: Testing for SARS-CoV -2 by RT-PCRThis test was developed and its performance characteristics determined by [employer] ([place]) and validated at the [facility]. This test has not been FDA cleared or approved. This test has been authorized by FDA under an Emergency Use Authorization (EUA). This test has been validated in accordance with the FDA's Guidance Document (Policy for Diagnostics Testing in Laboratories Certified to Perform High Complexity Testing under CLIA prior to Emergency Use Authorization for Coronavirus Disease-2019 during the Public Health Emergency) issued on July 21, 2019. This test is only authorized for the duration of time the declaration that circumstances exist justifying the authorization of the emergency use of in vitro diagnostic tests for detection of SARS-CoV-2 virus and/or diagnosis of COVID-19 infection under section 564(b)(1) of the Act, 21 U.S.C. 360bbb-3(b)(1), unless the authorization is terminated or revoked sooner. Otheron 05-04-2020 Coronavirus 2019 PCR Interp N/A [facility] Automated basophil %on 04-24 Basophils/100 WBC (Bld) 0.6 % [facility] Automated basophil counton 0 04-24-2020 Basophils (Bld) [#/Vol] 0.0 10*3/uL 0.0-0.2 [facility] Automated blood lymphocyte c ount (number/volume)on 04-24-2020 Lymphocytes (Bld) [#/Vol] 1.0 10*3/uL 1.00-4.8 [facility] Automated blood lymphocyte c ount as percentage of total leukocyteson 04-24-2020 Lymphocytes/100 WBC (Bld) 17.0 % [facility] Automated blood monocyte cou nton 04-24-2020 Monocytes (Bld) [#/Vol] 0.3 10*3/uL 0.0-0.8 [facility] Automated blood platelet cou nt (count/volume)on 04-24-2020 Platelets (Bld) [#/Vol] 224 10*3/uL 150-450 [facility] Automated blood platelet vikki n volume measurementon 04-24-2020 Platelet mean volume (Bld) [Entitic vol] 7.2 fL 6.3-10.7 [facility] Automated eosinophil %on Eosinophils/100 WBC (Bld) 3.5 % [facility] Automated eosinophil counton 04-24-2020 Eosinophils (Bld) [#/Vol] 0.2 10*3/uL 0.0-0.45 [facility] Automated erythrocyte distri bution width ratioon 04-24-2020 Erythrocyte distribution width (RBC) [Ratio] 13.0 % 11.9-15.3 [facility] Automated erythrocyte mean c orpuscular hemoglobin (mass per erythrocyte)on 04-24-2020 MCH (RBC) [Entitic mass] 27.7 pg 24.7-34.3 [facility] Automated erythrocyte mean c orpuscular hemoglobin concentration measurement (mass/volon 04-24-2020 MCHC (RBC) [Mass/Vol] 33.2 g/dL 32.0-35.0 [facility] Automated erythrocyte mean c orpuscular volumeon 04-24-2020 MCV (RBC) [Entitic vol] 83.3 fL 80-100 [facility] Automated erythrocytes count in urine sediment (number/area)on 04-24-2020 RBC Auto (Urine sed) [#/Area] None seen [HPF] [facility] Automated leukocytes count i n urine sediment (number/area)on 04-24-2020 WBC Auto (Urine sed) [#/Area] 0-1 [HPF] [facility] Automated monocyte %on 04-24 Monocytes/100 WBC (Bld) 6.1 % [facility] Automated neutrophil %on Neutrophils/100 WBC (Bld) 72.8 % [facility] Automated urine color determ inationon 04-24-2020 Color (U) Yellow Yellow [facility] Blood erythrocytes automated count (number/volume)on 04-24-2020 RBC (Bld) [#/Vol] 4.50 10*6/uL 3.60-5.00 [facility] Blood hemoglobin measurement (mass/volume)on 04-24-2020 Hemoglobin (Bld) [Mass/Vol] 12.5 g/dL 11.8-15.4 [facility] Blood leukocytes automated c ount (number/volume)on 04-24-2020 WBC (Bld) [#/Vol] 5.7 10*3/uL 3.8-11.6 [facility] Blood neutrophil count by au tomated method (number/volume)on 04-24-2020 Neutrophils (Bld) [#/Vol] 4.2 10*3/uL 1.8-7.7 [facility] Estimated glomerular filtrat ion rate (GFR) non- Americanon 04-24-2020 GFR/1.73 sq M predicted among non-blacks MDRD (S/P/Bld) [Vol rate/Area] mL/min/{1.73_m2} [facility] Hematocrit [Volume Fraction] of Blood by Automated counton 04-24-2020 Hematocrit (Bld) [Volume fraction] 37.5 % 34.0-46.4 [facility] Otheron 04-24-2020 GFR/1.73 sq M.predicted MDRD (S/P/Bld) [Vol rate/Area] mL/min/{1.73_m2} [facility] Comment on above: GFR estimated refere nce range: According to KDOQI guidelines, <60 ml/min/1.73m2 is sufficient to diagnose a patient with chronic kidney disease. Nucleated RBC/100 WBC (Bld) [Ratio] 0.1 % 0-0.5 [facility] Creatinine Clearance (Chem N/A [facility] Serum or plasma calcium kelly urement (mass/volume)on 04-24-2020 Calcium [Mass/Vol] 9.3 mg/dL 8.2-10.2 [facility] Serum or plasma chloride vikki surement (moles/volume)on 04-24-2020 Chloride [Moles/Vol] 101 mmol/L 95-114 [facility] Serum or plasma creatinine m easurement with calculation of estimated glomerular filtron 04-24-2020 Creatinine [Mass/Vol] 0.88 mg/dL 0.44-1.03 [facility] Serum or plasma glucose kelly urement (mass/volume)on 04-24-2020 Glucose [Mass/Vol] 116 mg/dL 70-100 [facility] Comment on above: ADA recommended refe rence rangeRandom Glucose Reference Range is dependent on time and content of last meal. Glucose of more than 200 mg/dL in a nonstressed, ambulatory subject supports the diagnosis of Diabetes Mellitus. Serum or plasma potassium me asurement (moles/volume)on 04-24-2020 Potassium [Moles/Vol] 3.8 mmol/L 3.5-5.1 [facility] Serum or plasma sodium measu rement (moles/volume)on 04-24-2020 Sodium [Moles/Vol] 136 mmol/L 136-146 [facility] Serum or plasma total carbon dioxide measurement (moles/volume)on 04-24-2020 CO2 [Moles/Vol] 23.1 mmol/L 22.0-30.0 [facility] Serum or plasma urea nitroge n measurement (mass/volume)on 04-24-2020 Urea nitrogen [Mass/Vol] 10 mg/dL 9-23 [facility] Specific gravity of Urine by Automated test stripon 04-24-2020 Specific gravity (U) [Rel density] 1.007 1.001-1.03 0 [facility] Squamous epithelial cells de tection in urine sediment by light microscopyon 04-24-2020 Epithelial cells.squamous LM Ql (Urine sed) None seen [HPF] [facility] Urinalysison 04-24-2020 Hyaline casts LM Ql (Urine sed) None seen [LPF] [facility] Urine bacteria detection by automated methodon 04-24-2020 Bacteria Auto Ql (U) None seen None Seen [facility] Urine clarity by refractomet ry automatedon 04-24-2020 Clarity Refractometry automated (U) Clear Clear [facility] Urine glucose measurement by automated test strip (mass/volume)on 04-24-2020 Glucose Auto test strip (U) [Mass/Vol] Normal mg/dL Normal [facility] Urine hemoglobin detection b y automated test stripon 04-24-2020 Hemoglobin Auto test strip Ql (U) Negative Negative [facility] Urine ketones measurement by automated test strip (mass/volume)on 04-24-2020 Ketones (U) [Mass/Vol] Negative Negative [facility] Urine leukocyte esterase det ection by automated test stripon 04-24-2020 Leukocyte esterase Auto test strip Ql (U) 1+ Negative [facility] Urine nitrite detection by t est stripon 04-24-2020 Nitrite Ql (U) Negative Negative [facility] Urine pH measurement by auto mated test stripon 04-24-2020 pH (U) 5.5 [pH] 5.0-9.0 [facility] Urine protein measurement by automated test strip (mass/volume)on 04-24-2020 Protein (U) [Mass/Vol] Negative Negative [facility] Urine total bilirubin detect ion by test stripon 04-24-2020 Bilirubin Ql (U) Negative Negative [facility] Urine urobilinogen measureme nt by automated test strip (mass/volume)on 04-24-2020 Urobilinogen (U) [Mass/Vol] Normal mg/dL Normal [facility] CT L-SPINE WO CONTRASTon CT L-SPINE WO CONTRAST Patient Name: LEELEE CEDILLO STUDY: CT L-SPINE WO CONTRAST;; 10/13/2018 12:05 pm INDICATION: Low back pain LUMBAGO. COMPARISON: None. ACCESSION NUMBER(S): [id number] ORDERING CLINICIAN: HAMLET GILMAN TECHNIQUE: Axial sections of the lumbar spine was performed without intravenous contrast administration. Coronal and sagittal reconstructions were performed. FINDINGS: S shaped scoliosis of the lumbar spine noted. Pre and paravertebral soft tissues are unremarkable. Pre and paravertebral soft tissues are unremarkable. 2.3 mm anterolisthesis of L1 on L2, 2.5 mm retrolisthesis of L4 on L5. Sequelae of previous transpedicular screws noted at L5. Left lateral fusion noted from L1-L3, with transversely oriented screws and vertical supporting rods with intervening metallic strut, there is bone graft in the left side of the L1 vertebral body extending into the disc space at L1-L2. Mild kyphosis noted in this region at L1-L2. The left lateral screws at the level of L1 are noted extending into the T12-L1 disc space and abutting the inferior aspect of the T12 vertebral body showing chronic endplate changes. Chronic erosions/end plate changes also noted in the superior aspect of the L1 vertebral body. L1 vertebral body shows mild chronic decrease in the height. Laminectomy changes noted from L2 L4. At T12-L1 mild degenerative changes noted without any significant central spinal canal or neural foramina stenosis. At L1-L2 chronic endplate changes noted in the inferior aspect of the L1 and superior aspect of the L2 vertebral body. Chronic decrease in the height of L2 vertebral body. Degenerative disc disease at L1-L2 noted causing mild encroachment of the spinal canal, in combination with facet joint arthropathy noted causing [id number] left neural foramina narrowing. Transpedicular screws of L2 extending into the disc space at L1-L2, right greater than the left, with lucency around the right transpedicular screw, best noted on axial slice 33, also lucency noted around the proximal portion of the left transpedicular screw, noted on axial slice 36, likely related to loosening. At L2-L3 there is a disc graft noted, disc osteophyte, scoliosis in combination with mild facet joint arthropathy noted causing moderate left lateral recess stenosis, severe left neural foramina narrowing. Mild chronic decrease in the left side of the L3 vertebral body. At L3-L4 scoliosis, mild disc osteophyte in combination noted causing mild right lateral recess stenosis, right neural foramina narrowing. At L4-L5 scoliosis, disc osteophyte, mild facet joint arthropathy in combination noted causing moderate right lateral recess, mild left lateral recess stenosis and moderate left neural foramina narrowing. At L5-S1 scoliosis, degenerated disc, mild facet joint arthropathy in combination noted causing moderate left lateral recess, left neural foramina and [id number] right neural foramina narrowing. IMPRESSION: Postoperative and degenerative changes as described above. At T12-L1, the left sided supporting screws of L1 vertebral body are extending into the disc space at T12-L1 and abutting the inferior aspect of the T12 vertebral body with chronic endplate erosive changes. The transpedicular screws near the superior aspect of the L2 vertebral body are extending into the disc space at L1-L2, with surrounding lucencies, related to loosening. Electronically signed by: PATRICIA MURRAY MD [facility] SPINE, ENTIRE THORACIC/LUMBA R, INCLUDE SKULL, CERVICAL ANSD SACRAL SPINE WHEN PERFORMED 2 OR 3 VIEWon 10-13-2018 SPINE, ENTIRE THORACIC/LUMBAR, INCLUDE SKULL, CERVICAL ANSD SACRAL SPINE WHEN PERFORMED 2 OR 3 VIEW Patient Name: LEELEE CEDILLO STUDY: SPINE, ENTIRE THORACIC/LUMBAR, INCLUDE SKULL, CERVICAL ANSD SACRAL SPINE WHEN PERFORMED 2 OR 3 VIEW; SPINE, LUMBOSACRAL CMPLT(BENDING); 10/13/2018 12:05 pm INDICATION: LUMBAGO. COMPARISON: None ACCESSION NUMBER(S): [id number]; [id number] ORDERING CLINICIAN: HAMLET GILMAN FINDINGS: Long radiograph of the thoracic and lumbar spine, frontal and lateral Lumbar spine five views Patient status post lumbar fusion. This includes posterior fusion hardware L2 to the L4 level. There is also extreme lateral fusion L1-L3 . The lateral fusion hardware looks to project through the T12-L1 disc space eroding into the T12 endplate. There is a moderate scoliosis. Focal kyphosis across the upper lumbar spine at the extreme lateral hardware noted. This is of uncertain acuity. Likely previous laminectomies L2-L4. The upper thoracic spine demonstrates a mild scoliosis but no other gross osseous abnormality. IMPRESSION: Scoliosis with lumbar fusion L1-L4. Potential hardware complication of the extreme lateral fusion from L1-L3 with the screws looking to erode into the T12-L1 disc space. There is also focal kyphosis of the upper lumbar spine at the level of the X-lat fusion. This is of uncertain acuity. Electronically signed by: ADELE BA MD [facility] SPINE, LUMBOSACRAL; CMPLT(BE NDING)on 10-13-2018 SPINE, LUMBOSACRAL; CMPLT(BENDING) Patient Name: LEELEE CEDILLO STUDY: SPINE, ENTIRE THORACIC/LUMBAR, INCLUDE SKULL, CERVICAL ANSD SACRAL SPINE WHEN PERFORMED 2 OR 3 VIEW; SPINE, LUMBOSACRAL CMPLT(BENDING); 10/13/2018 12:05 pm INDICATION: LUMBAGO. COMPARISON: None ACCESSION NUMBER(S): [id number]; [id number] ORDERING CLINICIAN: HAMLET GILMAN FINDINGS: Long radiograph of the thoracic and lumbar spine, frontal and lateral Lumbar spine five views Patient status post lumbar fusion. This includes posterior fusion hardware L2 to the L4 level. There is also extreme lateral fusion L1-L3 . The lateral fusion hardware looks to project through the T12-L1 disc space eroding into the T12 endplate. There is a moderate scoliosis. Focal kyphosis across the upper lumbar spine at the extreme lateral hardware noted. This is of uncertain acuity. Likely previous laminectomies L2-L4. The upper thoracic spine demonstrates a mild scoliosis but no other gross osseous abnormality. IMPRESSION: Scoliosis with lumbar fusion L1-L4. Potential hardware complication of the extreme lateral fusion from L1-L3 with the screws looking to erode into the T12-L1 disc space. There is also focal kyphosis of the upper lumbar spine at the level of the X-lat fusion. This is of uncertain acuity. Electronically signed by: ADELE BA MD [facility] DX-XR Knee Complete 4+ Views Left IMPORTon 01-12-2017 DX-XR Knee Complete 4+ Views Left IMPORT Images were obtained outside of [facility] [id number] Normal [facility] DX-XR Knee Complete 4+ Views Right IMPORTon 01-12-2017 DX-XR Knee Complete 4+ Views Right IMPORT Images were obtained outside of [facility] [id number] Normal [facility] DX-XR Spine Lumbosacral 2 or 3 Views IMPORTon 01-12-2017 DX-XR Spine Lumbosacral 2 or 3 Views IMPORT Images were obtained outside of [facility] [id number] [facility] CNOVon 01-07-2017 CNOV Office Visit (ALIS) LEELEE CEDILLO ([id number]) 1950 FDate Time Provider Department01/07/17 2:50 PM BRUCE MATHEW During your visit today, we recorded the following information about you: Pulse Respiration Blood pressure Weight 77/minute 20/minute 158/74 107.5 kg Height 1.753 Bay Mathew MD 01/07/2017 5:[address] [facility] SURGERY OUTPATIENT CONSULTSERVICE DATE: 01/07/2017PCP: Sara Vick [facility] PROVIDER:Sara Vick MD[address] [facility] [place] [id number] requested for an opinion regarding the evaluation and treatment ofLeelee Cedillo. My final impression and recommendations will be communicatedback to the requesting physician by way of the shared medical record or lettervia US mail.Josh Cedillo is a 66 year old female presenting alone.CHIEF COMPLAINT: Low back pain, radiating left anterior thigh pain to the kneeHISTORY OF PRESENT ILLNESSPRECIPITATING EVENT: None. She did fall and sustained rib fractures inDecember 2016DURATION OF SYMPTOMS: Initial onset of pain was in June 2016 with a repeatflareup in October 2016.The patient initially presented with lower back pain that radiates down to theleft groin and down to the anterior aspect left leg down to the knee. Pain isachy, burning and numbing at 4/10. She has numbness in both feet does notpresent for a long time due to neuropathy.PAIN EVALUATION 01/07/2017 Pain Score: 4 Pain Location: Back Description: Aching;Burning;Numbness Duration Amount of Time: 3 Duration Units: Months Frequency: Continuous Intervention: Medication;Reposition;Relaxatio n;Pillow support;PositioningPain Radiation: Low back into the anterior aspect of left thigh and kneeAggravating Factors: BENDING OVER, WALKING, STANDING, DIFFICULTY WITH SHOE ANDSOCK DONNING ON THE LEFT. She admits to all limp favoring the left lowerextremity which is ipsilateral side of the left total hip replacementAlleviating Factors: ICE, TYLENOLPain Ratio: Pain in the back is greater than in the legDERMATOMAL DISTRIBUTION:Not applicableAMBULATORY STATUS: 04/23 MILESTANDING UPRIGHT: 2 MINUTESARM WEAKNESS: NOHAND CLUMSINESS: NOHANDWRITING DIFFICULTY: LEFT, NOIMBALANCE: WORSENING SINCE October 2016FUNCTIONAL STATUS: Walk indoors, such as around the house (1.75 METs)Do light work around the house, such as dusting or washing dishes (2.70 METs)Take care of self, that is eating, dressing, bathing, using the toilet (2.75METs)Walk a block or two on level ground (2.75 METs)Do moderate work around the house such as vacuuming, sweeping floors, orcarrying in groceries (3.50 METs)PREVIOUS CONSERVATIVE TREATMENTS:PT X 7 VISITS HELPED A LITTLE SINCE NOVEMBER 2016.PREVIOUS SPINAL SURGERY:SURGERY #1: L4-[address] GILMAN 2013 FOR BACK PAIN.PED RED FLAGSYesNoYesNoYesNoNoYesYesNoN Girish No-Significant Injury to SpineNo-Use of Steroids for Prolonged DurationNo-Loss of Bowel/Bladder Control, Genital/Anal NumbnessNo-Recent Use of Intravenous (IV) DrugsYES-Difficulty Keeping Balance when WalkingNo-Progressive Weakness in Arms/LegsNo-History of Any Type of CancerYES-Unable to Find Position of ComfortYES-Pain at Night that Disturbs SleepNo-Recent Elevated Temp with Unknown CauseNo-Diagnosed with OsteoporosisNo-Unintentional Weight Loss or GainURINARY URGENCY*PED (Patient Entered Data) osteoporosis flag will display for females 55 yearsor older and males 75 years or older.ACTIVE PROBLEM LISTOther Specified Acquired HypothyroidismObesityHair LossStatus post rotator cuff surgery, rightH/O: RCT (rotator cuff tear),rightHistory of Tear of Meniscus of Knee JointStatus Post Foot SurgeryVitamin B DeficiencyHla B27 (Hla B27 Positive)Uveitis, historyAutoimmune ThyroiditisUnspecified Essential HypertensionFracture Closed, Fibula, ShaftPAST MEDICAL HISTORYDiagnosis Date- 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- Back pain- Fracture closed, fibula, shaft and ankle.- Hair loss 06/18/2011- History of tear of meniscus of knee joint 07/01/2011- HLA B27 (HLA B27 positive) 07/01/2011- Left hip pain- Obesity 06/18/2011- Other specified acquired hypothyroidism 06/18/2011- Status post foot surgery 07/01/2011 Details not available- Status post rotator cuff surgery, right 07/01/2011- Unspecified essential hypertension Essential hypertension- Unspecified hypothyroidism Hypothyroidism- Uveitis, history 07/01/2011- Vitamin B deficiency 07/01/2011 on replacement rx per EndocrinologyPAST SURGICAL HISTORYProcedure Laterality Date- BACK SURGERY HX 2013 L4-5 PSFI, [facility] GILMAN FROM [facility] IN [place]- BUNIONECTOMY, LAPIDUS-TYPE- KNEE SCOPE,DIAGNOSTIC 10/24/11 Arthroscopy, knee- LAPAROSCOPIC CHOLEYCYSTECTOMY 2003 Cholecystectomy, lap- LIGATE FALLOPIAN TUBE Tubal ligation- PAST SURGICAL HISTORY OF 2006 R foot fracture.- PAST SURGICAL HISTORY OF vein stripping about 3 times.- REPAIR ROTATOR CUFF,ACUTE 2010 Rotator cuff repair, R shoulder.- TOTAL HIP REPLACEMENT left hipFAMILY HISTORYProblem Relation Age of Onset- Breast Cancer Mother age 52- COPD Father age 75- Diabetes Brother- Hypertension Brother- Diabetes Brother- None Brother- Brain aneurysm [OTHER] Daughter age 27- None DaughterSocial History Marital status: Spouse name: Years of education: HS Number of children: 2Occupational 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 [employer]*tameka lora*Social History Main Topics Smoking status: Never Smoker Alcohol use: Yes 9.0 oz/week 6 Cans of Beer (12oz) per week Drug use: No Sexual activity: Not Currently Partners with: MaleALLERGIESAllergen Reactions- Sulfa (Sulfonamide *MEDICATIONS:pantoprazole DR (PROTONIX) 40 mg tablet Take 40 mg by mouth once daily.gabapentin (NEURONTIN) 600 mg tablet Take 600 mg by mouth twice daily.diclofenac, EC, (VOLTAREN) 75 mg EC tablet Take 75 mg by mouth twice daily.tiZANidine HCl 4 mg capsule Take 4 mg by mouth daily at bedtime.levothyroxine (SYNTHROID) 125 mcg tablet Take 1 tablet by mouth once daily.losartan 100 mg ORAL tablet Take 1 tablet by mouth once daily.REVIEW OF SYSTEMS:Review of SystemsConstitutional Negative for Fevers, Night Sweats, Weight Gain, Weight Loss and FatigueEyes Negative for Change in vison not corrected by glasses and Vision loss orchangeHent Negative for Hearing Loss, Difficulty Swallowing, Tinnitus and Recent changein speech or voiceCardiovascular Negative for Chest Pain, Lightheadedness and Leg pain with walkingRespiratory Negative for SOB at rest, SOB with exertion, Cough, Wheezing and SnoringGI Negative for Blood in Stool, Abdominal Pain, Diarrhea, Constipation,Nausea/Vomiting and HeartburnGU Negative for Urgency, Impotence, Incontinence and Sexual DysfunctionEndocrine Negative for Heat Intolerance, Excessive Thirst and Menstrual CycleIrregularitiesMusculoskele chris Positive for Stiff Joints Negative for Back Pain, Joint Swelling and Muscle PainIntegumentary Negative for Rashes, Itching, Other Lesions and Hair ChangesHeme/Lymph Positive for Swelling of Arm or Leg Negative for Prolonged Bleeding and Easy BruisingAllergy/Immunologic Negative for Nasal Congestion and Swollen NodesNeurologic Positive for Numbness/Tingling Negative for Memory Problems, Headache, Weakness, Double Vision, TroubleSwallowing and Slurred SpeechPsychiatric Negative for Stress or Conflicts, Depression, Anxiety, Irritability,Hallucinations and DelusionsPatient's Review of Systems has been reviewed with the patient and updated asappropriate.OBJECTIVE:PHYSICA L EXAMBP 158/74 Pulse 77 Resp 20 Ht 175.3 cm (5' 9ANDquot;) Wt 107.5 kg (237lb) BMI 35 kg/m3MNTGWZU APPEARANCE: Well nourished, well developed, and no apparent distress.NEURO PSYCH: Patient oriented to person, place, and time. Mood pleasant. Benignaffect.CARDIOVASCULAR: Palpable 2+ radial and 1+ dorsalis pedis pulses. No edemanoted. No varicosities.SKIN: Head, neck, trunk, and extremities dry, intact and without lesions.Well-healed lumbar incision. Right first MTP fusion incision. Post gadoliniumcontrast skin reactionLYMPHATICS: No palpable nodes in cervical or axillae areas. Groin exam deferred.MUSCULOSKELETAL VISUAL INSPECTION CERVICAL: WNL THORACIC: WNL LUMBAR: WNL with flexion 30? and extension 10? short of neutral PALPATION: SPINOUS PROCESS: No pain except for lumbosacral region. PARASPINALS: No pain.MUSCLE BULK: Normal and symmetrical in the upper ANDamp; lower extremities.MUSCLE TONE: Normal.MOTOR:5/5 in all muscles of the upper extremities5/5 in all muscle groups of the lower extremities with exception of left flexor3/5, left knee extension and flexion 4-4+, right ADF 5 minus and left is 4/5.Right EHL is not testable due to MTP fusion and left EHL 4/5.SENSORY: Normal sensory examGAIT: Normal. Unable to perform heel and toeREFLEXES: + 1 in the upper extremities. Absent DTRs in the lower extremities.PROPRIOCEPTION: Not tested.LONG TRACT SIGNS: No clonus. No Hoffmans.STRAIGHT LEG TEST: Ipsilateral: Negative. Contralateral: Negative. Positiveipsilateral left-sided femoral stretch testL'HERMITTES SIGN: Negative on the right. Negative on the left.SPURLING'S TEST: Negative on the right. Negative on the left.EXTREMITIES: No gross deformity or laxity with normal range of motion withoutpainPELVIS: No hip irritabilitySTATION: stable.ADDITIONAL LONG TRACT SIGNS: Babinski: absent Escape sign: Not performedADDITIONAL EXAMINATION:not performedWaddell Signs: not performedKP: DiminishedOAARS report was reviewed. PercocetMEDICAL RECORDSReviewed at the index visit:Progress note from Dr. Marin dated 01/02/2017 was reviewed. Mention ofappointment with Dr. Dickerson [id number]. This was her third referral as ofJanuary 20, 2017. A fourth referral was made to our office.Progress note from Dr. Marin dated December 24, 2016 regarding rash on her backand MRI findingsNEURO TESTS:NoneDATA REVIEWImaging and outside records reviewed and findings are as followsThe [facility] with and without. Status post L4-5 lumbar laminectomy withinstrumented fusion. Not mentioned left L34 disc herniation with caudalmigration affecting the left L4 root. Moderate L2-3 and moderate to severeL3-4 lumbar stenosisFisher TitusLumbar x-rays. November 29, 2016. Nonweightbearing view. Left L3-4 disc spacecollapse. Status post L L4-5 lumbar laminectomy and fusion with hispresentation. L3-4 retrolisthesis.ASSESSMENT/PLANI MPRESSION:(M51.16) Lumbar disc herniation with radiculopathy (primaryencounter diagnosis)(E53.9) Vitamin B deficiency(H20.9) Uveitis, history(Z98.890) Status post rotator cuff surgery, right(Z98.890) Status post foot surgery(E66.9) Obesity, unspecified classification, unspecified obesity type,unspecified whether serious comorbidity present(Z15.89) HLA B27 (HLA B27 positive)(Z87.828) History of tear of meniscus of knee joint(L65.9) Hair loss(Z87.39) H/O: RCT (rotator cuff tear),right(E06.3) Autoimmune thyroiditis(S82.402S) Closed fracture of shaft of left fibula, unspecified fracturemorphology, sequela(Z98.1) S/P laminectomy with spinal fusion(M25.561, M25.562, G89.29) Chronic pain of both knees(M48.06) Lumbar stenosis with neurogenic claudication(M43.10) 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 The patient is not at risk fordeveloping any major neurological deficit or bowel or bladder dysfunction basedon the current assessment.I would like her to undergo lumbar transforaminal epidurals injection of leftL4 root. If this cannot be done, L3-4 interlaminar left-sided bias injectionmay be of benefit. She had her conservative treatments fail to provide anymeaningful relief, she will recent candidate for either isolated left L3-4discectomy versus L2-4 laminectomy with discectomy following OLIF L3-4.Risks and complications of the lumbar discectomy surgery were discussedincluding but limited to bleeding, infection, damage to nerves, soft tissue,vessels, deep venous thrombosis, pulmonary embolus, heart attack, stroke,, nerve and cord injury, paralysis, worsening pain, paresthesias,weakness, durotomy, earlier degenerative disc changes, recurrent discherniation and potential resolution of the disc herniation at the time of thesurgery despite the ongoing pain, and need for further surgery.#2 BMI greater than 35Complications of being overweight was discussed including but not limited toharmful effects on cardiovascular, pulmonary, orthopedic systems includingdegenerative joint conditions, increased operative and perioperativecomplications such as wound healing as well as decreased overall quality oflife. The patient was strongly advised to work diligently on the weight loss.She was offered a weight loss clinic referral which she declined.#3 bilateral foot neuropathyObservationSylvia Nguyen is not a candidate for surgery at this time, will continue withmedical management of his/her condition and has a condition that requiresfurther workup.1. Imaging: Lumbar X-Ray2. Consults: Medical Spine Intervention3. Follow up: Following aboveSIGNATURE: Bruce Mathew MD PATIENT NAME: Leelee Alicea: January 07, 2017 : 3:17 PM PAGER:Bruce Mathew MD 01/07/2017 3:53 PM SignedLUMBAR DISC HERNIATIONReferring Provider: SARA VICK [[id number]]Allergies As of Date: 01/07/2017 Noted Allergy ReactionSULFA (SULFONAMIDE ANTIBIOTICS) 07/16/2006Date Reviewed: 01/07/2017Reviewed by: Bruce Mathew - Fully AssessedReason for Visit: Consult [173] Cmt: low back pain, numbness left leg, s/p L Lami/PSF Dr Gonzales Visit Diagnosis:Lumbar disc herniation with radiculopathy [M51.16] Other Visit Diagnoses:Vitamin B deficiency [E53.9] Uveitis, history [H20.9] Status post rotator cuff surgery, right [Z98.890] Status post foot surgery [Z98.890] Obesity, unspecified classification, unspecified obesity type, unspecified whether serious comorbidity present [E66.9] HLA B27 (HLA B27 positive) [Z15.89] History of tear of meniscus of knee joint [Z87.828] Hair loss [L65.9] H/O: RCT (rotator cuff tear),right [Z87.39] Autoimmune thyroiditis [E06.3] Closed fracture of shaft of left fibula, unspecified fracture morphology, sequela [S82.402S] S/P laminectomy with spinal fusion [Z98.1] Chronic pain of both knees [M25.561, M25.562, G89.29] Lumbar stenosis with neurogenic claudication [M48.06] Retrolisthesis of vertebrae [M43.10] BMI 35.0-35.9,adult [Z68.35]Order(s):CONSULT TO PAIN MGT ANESTHESIA [[id number]] Order #: [id number]: 1 XR LUMBAR LIMITED 2V AP/LAT [[id number]] Order #: [id number] FUTURE XR KNEE GENERAL 4V AP BOTH/PA BOTH/LAT/MERC LT [[id number]] Order #: [id number] FUTURE XR KNEE GENERAL 4V AP BOTH/PA BOTH/LAT/MERC RT [[id number]] Order #: [id number] FUTUREPrescriptions as of 01/07/2017 Sig: PANTOPRAZOLE 40 MG TABLET,DEL* Take 40 mg by mouth once damion* GABAPENTIN 600 MG TABLET Take 600 mg by mouth twice da* DICLOFENAC SODIUM 75 MG TABLE* Take 75 mg by mouth twice gwen* TIZANIDINE 4 MG CAPSULE Take 4 mg by mouth daily at b* LEVOTHYROXINE 125 MCG TABLET Take 1 tablet by mouth once d* * LOSARTAN 100 MG TABLET Take 1 tablet by mouth once d*Problem List As Of Date 01/07/2017 Noted Resolved Other specified acquired hypothyroidism [E03.8] INVALID FOR* Obesity [E66.9] INVALID FOR* Hair loss [L65.9] INVALID FOR* Status post rotator cuff surgery, right [Z98.89*INVALID FOR* H/O: RCT (rotator cuff tear),right [Z87.39] INVALID FOR* History of tear of meniscus of knee joint [Z87.*INVALID FOR* Status post foot surgery [Z98.890] INVALID FOR* More... Vitamin B deficiency [E53.9] INVALID FOR* More... HLA B27 (HLA B27 positive) [Z15.89] INVALID FOR* Uveitis, history [H20.9] INVALID FOR* Autoimmune thyroiditis [E06.3] INVALID FOR* More... Unspecified essential hypertension [I10] INVALID FOR* More... Fracture closed, fibula, shaft [S82.409A] INVALID FOR* More... Other instructions from your clinician: LUMBAR DISC HERNIATIONMedications Discontinued During This Encounter ALPRAZolam (XANAX) 0.25 mg tablet 07/03/2014 01/07/2017 Class: Historical Med Route: ORAL Sig: Take 1 tablet by mouth three times daily as needed. Disc: Reason for discontinue is not on file. esomeprazole (NEXIUM) 40 mg ORAL cap* 0 06/18/2011 01/07/2017 Class: Med Update Route: ORAL Sig: Take 1 capsule by mouth twice daily before meals. Disc: Erroneous entry Estradiol 0.5 mg ORAL tablet 0 06/18/2011 01/07/2017 Class: Med Update Route: ORAL Sig: Take 1 tablet by mouth once daily. Disc: Reason for discontinue is not on file. naproxen (NAPROSYN) 500 mg ORAL tabl* 0 06/18/2011 01/07/2017 Class: Med Update Route: ORAL Sig: Take 1 tablet by mouth twice daily as needed. FOR PAIN. TAKE WITH FOOD. Disc: Reason for discontinue is not on file. VALTREX 500 MG TAB 0 07/16/2006 01/07/2017 Class: Med Update Route: ORAL Sig: Take one(1) tablet daily. Disc: Reason for discontinue is not on file.Follow-up and Disposition History RecordedEncounter Number: [id number] Status:Closed by BRUCE MATHEW MD on 01/07/17 Normal [facility] PROGRESSon 01-07-2017 PROGRESS HNO ID: [id number] thor: Bruce MathewService: (none)Author Type: PhysicianType: Progress NotesFiled: 01/07/2017 5:15 PMNote Text:SPINE SURGERY OUTPATIENT CONSULTSERVICE DATE: 01/07/2017PCP: Sara Vick MDREFERRING PROVIDER:Sara Vick MD[address] [facility] [id number] requested for an opinion regarding the evaluation and treatmentof Leelee Cedillo. My final impression and recommendations will becommunicated back to the requesting physician by way of the shared medicalrecord or letter via US mail.Josh Cedillo is a 66 year old female presenting alone.CHIEF COMPLAINT: Low back pain, radiating left anterior thigh pain to thekneeHISTORY OF PRESENT ILLNESSPRECIPITATING EVENT: None. She did fall and sustained rib fractures inDecember 2016DURATION OF SYMPTOMS: Initial onset of pain was in June 2016 with arepeat flareup in October 2016.The patient initially presented with lower back pain that radiates down tothe left groin and down to the anterior aspect left leg down to the knee.Pain is achy, burning and numbing at 4/10. She has numbness in both feetdoes not present for a long time due to neuropathy.PAIN EVALUATION 01/07/2017 Pain Score: 4 Pain Location: Back Description: Aching;Burning;Numbness Duration Amount of Time: 3 Duration Units: Months Frequency: Continuous Intervention: Medication;Reposition;Relaxatio n;Pillow support;PositioningPain Radiation: Low back into the anterior aspect of left thigh and kneeAggravating Factors: BENDING OVER, WALKING, STANDING, DIFFICULTY WITH SHOEAND SOCK DONNING ON THE LEFT. She admits to all limp favoring the leftlower extremity which is ipsilateral side of the left total hipreplacementAlleviating Factors: ICE, TYLENOLPain Ratio: Pain in the back is greater than in the legDERMATOMAL DISTRIBUTION:Not applicableAMBULATORY STATUS: 04/23 MILESTANDING UPRIGHT: 2 MINUTESARM WEAKNESS: NOHAND CLUMSINESS: NOHANDWRITING DIFFICULTY: LEFT, NOIMBALANCE: WORSENING SINCE October 2016FUNCTIONAL STATUS: Walk indoors, such as around the house (1.75 METs)Do light work around the house, such as dusting or washing dishes (2.70METs)Take care of self, that is eating, dressing, bathing, using the toilet(2.75 METs)Walk a block or two on level ground (2.75 METs)Do moderate work around the house such as vacuuming, sweeping floors, orcarrying in groceries (3.50 METs)PREVIOUS CONSERVATIVE TREATMENTS:PT X 7 VISITS HELPED A LITTLE SINCE NOVEMBER 2016.PREVIOUS SPINAL SURGERY:SURGERY #1: L4-[address] GILMAN 2013 FOR BACK PAIN.PED RED FLAGSYesNoYesNoYesNoNoYesYesNoN Girish No-Significant Injury to SpineNo-Use of Steroids for Prolonged DurationNo-Loss of Bowel/Bladder Control, Genital/Anal NumbnessNo-Recent Use of Intravenous (IV) DrugsYES-Difficulty Keeping Balance when WalkingNo-Progressive Weakness in Arms/LegsNo-History of Any Type of CancerYES-Unable to Find Position of ComfortYES-Pain at Night that Disturbs SleepNo-Recent Elevated Temp with Unknown CauseNo-Diagnosed with OsteoporosisNo-Unintentional Weight Loss or GainURINARY URGENCY*PED (Patient Entered Data) osteoporosis flag will display for females 55years or older and males 75 years or older.ACTIVE PROBLEM LISTOther Specified Acquired HypothyroidismObesityHair LossStatus post rotator cuff surgery, rightH/O: RCT (rotator cuff tear),rightHistory of Tear of Meniscus of Knee JointStatus Post Foot SurgeryVitamin B DeficiencyHla B27 (Hla B27 Positive)Uveitis, historyAutoimmune ThyroiditisUnspecified Essential HypertensionFracture Closed, Fibula, ShaftPAST MEDICAL HISTORYDiagnosis Date- 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- Back pain- Fracture closed, fibula, shaft and ankle.- Hair loss 06/18/2011- History of tear of meniscus of knee joint 07/01/2011- HLA B27 (HLA B27 positive) 07/01/2011- Left hip pain- Obesity 06/18/2011- Other specified acquired hypothyroidism 06/18/2011- Status post foot surgery 07/01/2011 Details not available- Status post rotator cuff surgery, right 07/01/2011- Unspecified essential hypertension Essential hypertension- Unspecified hypothyroidism Hypothyroidism- Uveitis, history 07/01/2011- Vitamin B deficiency 07/01/2011 on replacement rx per EndocrinologyPAST SURGICAL HISTORYProcedure Laterality Date- BACK SURGERY HX 2013 L4-5 PSFI, DR. GILMAN FROM [facility] IN [place]- BUNIONECTOMY, LAPIDUS-TYPE- KNEE SCOPE,DIAGNOSTIC 10/24/11 Arthroscopy, knee- LAPAROSCOPIC CHOLEYCYSTECTOMY 2003 Cholecystectomy, lap- LIGATE FALLOPIAN TUBE Tubal ligation- PAST SURGICAL HISTORY OF 2006 R foot fracture.- PAST SURGICAL HISTORY OF vein stripping about 3 times.- REPAIR ROTATOR CUFF,ACUTE 2010 Rotator cuff repair, R shoulder.- TOTAL HIP REPLACEMENT left hipFAMILY HISTORYProblem Relation Age of Onset- Breast Cancer Mother age 52- COPD Father age 75- Diabetes Brother- Hypertension Brother- Diabetes Brother- None Brother- Brain aneurysm [OTHER] Daughter age 27- None DaughterSocial History Marital status: Spouse name: Years of education: HS Number of children: 2Occupational 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*Social History Main Topics Smoking status: Never Smoker Alcohol use: Yes 9.0 oz/week 6 Cans of Beer (12oz) per week Drug use: No Sexual activity: Not Currently Partners with: MaleALLERGIESAllergen Reactions- Sulfa (Sulfonamide *MEDICATIONS:pantoprazole DR (PROTONIX) 40 mg tablet Take 40 mg by mouth once daily.gabapentin (NEURONTIN) 600 mg tablet Take 600 mg by mouth twice daily.diclofenac, EC, (VOLTAREN) 75 mg EC tablet Take 75 mg by mouth twicedaily.tiZANidine HCl 4 mg capsule Take 4 mg by mouth daily at bedtime.levothyroxine (SYNTHROID) 125 mcg tablet Take 1 tablet by mouth oncedaily.losartan 100 mg ORAL tablet Take 1 tablet by mouth once daily.REVIEW OF SYSTEMS:Review of SystemsConstitutional Negative for Fevers, Night Sweats, Weight Gain, Weight Loss and FatigueEyes Negative for Change in vison not corrected by glasses and Vision loss orchangeHent Negative for Hearing Loss, Difficulty Swallowing, Tinnitus and Recentchange in speech or voiceCardiovascular Negative for Chest Pain, Lightheadedness and Leg pain with walkingRespiratory Negative for SOB at rest, SOB with exertion, Cough, Wheezing and SnoringGI Negative for Blood in Stool, Abdominal Pain, Diarrhea, Constipation,Nausea/Vomiting and HeartburnGU Negative for Urgency, Impotence, Incontinence and Sexual DysfunctionEndocrine Negative for Heat Intolerance, Excessive Thirst and Menstrual CycleIrregularitiesMusculoskele chris Positive for Stiff Joints Negative for Back Pain, Joint Swelling and Muscle PainIntegumentary Negative for Rashes, Itching, Other Lesions and Hair ChangesHeme/Lymph Positive for Swelling of Arm or Leg Negative for Prolonged Bleeding and Easy BruisingAllergy/Immunologic Negative for Nasal Congestion and Swollen NodesNeurologic Positive for Numbness/Tingling Negative for Memory Problems, Headache, Weakness, Double Vision, TroubleSwallowing and Slurred SpeechPsychiatric Negative for Stress or Conflicts, Depression, Anxiety, Irritability,Hallucinations and DelusionsPatient's Review of Systems has been reviewed with the patient and updatedas appropriate.OBJECTIVE:PHYSICAL EXAMBP 158/74 Pulse 77 Resp 20 Ht 175.3 cm (5' 9 ) Wt 107.5 kg (237lb) BMI 35 kg/t8MZVAEYI APPEARANCE: Well nourished, well developed, and no apparentdistress.NEURO PSYCH: Patient oriented to person, place, and time. Mood pleasant.Benign affect.CARDIOVASCULAR: Palpable 2+ radial and 1+ dorsalis pedis pulses. No edemanoted. No varicosities.SKIN: Head, neck, trunk, and extremities dry, intact and without lesions.Well-healed lumbar incision. Right first MTP fusion incision. Postgadolinium contrast skin reactionLYMPHATICS: No palpable nodes in cervical or axillae areas. Groin examdeferred.MUSCULOSKELETAL VISUAL INSPECTION CERVICAL: WNL THORACIC: WNL LUMBAR: WNL with flexion 30? and extension 10? short of neutral PALPATION: SPINOUS PROCESS: No pain except for lumbosacral region. PARASPINALS: No pain.MUSCLE BULK: Normal and symmetrical in the upper AND lower extremities.MUSCLE TONE: Normal.MOTOR:5/5 in all muscles of the upper extremities5/5 in all muscle groups of the lower extremities with exception of leftflexor 3/5, left knee extension and flexion 4-4+, right ADF 5 minus andleft is 4/5. Right EHL is not testable due to MTP fusion and left EHL4/5.SENSORY: Normal sensory examGAIT: Normal. Unable to perform heel and toeREFLEXES: + 1 in the upper extremities. Absent DTRs in the lowerextremities.PROPRIOCEPTION : Not tested.LONG TRACT SIGNS: No clonus. No Hoffmans.STRAIGHT LEG TEST: Ipsilateral: Negative. Contralateral: Negative.Positive ipsilateral left-sided femoral stretch testL'HERMITTES SIGN: Negative on the right. Negative on the left.SPURLING'S TEST: Negative on the right. Negative on the left.EXTREMITIES: No gross deformity or laxity with normal range of motionwithout painPELVIS: No hip irritabilitySTATION: stable.ADDITIONAL LONG TRACT SIGNS: Babinski: absent Escape sign: Not performedADDITIONAL EXAMINATION:not performedWaddell Signs: not performedKP: DiminishedOAARS report was reviewed. PercocetMEDICAL RECORDSReviewed at the index visit:Progress note from Dr. Marin dated 01/02/2017 was reviewed. Mention ofappointment with Dr. Dickerson [id number]. This was her third referral as ofJanuary 20, 2017. A fourth referral was made to our office.Progress note from Dr. Marin dated December 24, 2016 regarding rash on herback and MRI findingsNEURO TESTS:NoneDATA REVIEWImaging and outside records reviewed and findings are as followsThe [facility] with and without. Status post L4-5 lumbar laminectomywith instrumented fusion. Not mentioned left L34 disc herniation withcaudal migration affecting the left L4 root. Moderate L2-3 and moderateto severe L3-4 lumbar stenosisFisher TitusLumbar x-rays. November 29, 2016. Nonweightbearing view. Left L3-4 discspace collapse. Status post L L4-5 lumbar laminectomy and fusion with hispresentation. L3-4 retrolisthesis.ASSESSMENT/PLANI MPRESSION:(M51.16) Lumbar disc herniation with radiculopathy (primaryencounter diagnosis)(E53.9) Vitamin B deficiency(H20.9) Uveitis, history(Z98.890) Status post rotator cuff surgery, right(Z98.890) Status post foot surgery(E66.9) Obesity, unspecified classification, unspecified obesity type,unspecified whether serious comorbidity present(Z15.89) HLA B27 (HLA B27 positive)(Z87.828) History of tear of meniscus of knee joint(L65.9) Hair loss(Z87.39) H/O: RCT (rotator cuff tear),right(E06.3) Autoimmune thyroiditis(S82.402S) Closed fracture of shaft of left fibula, unspecified fracturemorphology, sequela(Z98.1) S/P laminectomy with spinal fusion(M25.561, M25.562, G89.29) Chronic pain of both knees(M48.06) Lumbar stenosis with neurogenic claudication(M43.10) 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 The patient is not atrisk for developing any major neurological deficit or bowel or bladderdysfunction based on the current assessment.I would like her to undergo lumbar transforaminal epidurals injection ofleft L4 root. If this cannot be done, L3-4 interlaminar left-sided biasinjection may be of benefit. She had her conservative treatments fail toprovide any meaningful relief, she will recent candidate for eitherisolated left L3-4 discectomy versus L2-4 laminectomy with discectomyfollowing OLIF L3-4.Risks and complications of the lumbar discectomy surgery were discussedincluding but limited to bleeding, infection, damage to nerves, softtissue, vessels, deep venous thrombosis, pulmonary embolus, heart attack,stroke, , nerve and cord injury, paralysis, worsening pain,paresthesias, weakness, durotomy, earlier degenerative disc changes,recurrent disc herniation and potential resolution of the disc herniationat the time of the surgery despite the ongoing pain, and need for furthersurgery.#2 BMI greater than 35Complications of being overweight was discussed including but not limitedto harmful effects on cardiovascular, pulmonary, orthopedic systemsincluding degenerative joint conditions, increased operative andperioperative complications such as wound healing as well as decreasedoverall quality of life. The patient was strongly advised to workdiligently on the weight loss. She was offered a weight loss clinicreferral which she declined.#3 bilateral foot neuropathyObservationSylvia Nguyen is not a candidate for surgery at this time, will continuewith medical management of his/her condition and has a condition thatrequires further workup.1. Imaging: Lumbar X-Ray2. Consults: Medical Spine Intervention3. Follow up: Following aboveSIGNATURE: Bruce Mathew MD PATIENT NAME: Leelee KamaraATE: January 07, 2017 : 3:17 PM PAGER: Normal [facility] MR-MRI L-SPINE WO/W CON IMPO RTon 12-19-2016 MR-MRI L-SPINE WO/W CON IMPORT Images were obtained outside of [facility] [id number] Normal [facility] DX-XR Hip 2-3 Views Left + P cristine IMPORTon 11-29-2016 DX-XR Hip 2-3 Views Left + Pelvis IMPORT Images were obtained outside of [facility] [id number] Normal [facility] DX-XR Spine Lumbosacral Mini mum 4 Views IMPORTon 11-29-2016 DX-XR Spine Lumbosacral Minimum 4 Views IMPORT Images were obtained outside of [facility] [id number] Normal [facility] Vital Signs Date Time Vital Sign Value Performing Clinician Facility 04-03-2023 10:15-0500 Body height 175.26 cm Larry Brown Other [facility] [employer] Other 04-03-2023 10:15-0500 Diastolic blood pressure 74 mm[Hg] Larry Brown Other [facility] Other 04-03-2023 10:15-0500 SaO2% (BldA) [Mass fraction] 99 % Larry Brown Other [facility] Other 04-03-2023 10:15-0500 Systolic blood pressure 118 mm[Hg] Larry Brown Other [facility] [employer] Other 03-25-2023 11:05-0500 Diastolic blood pressure 75 mm[Hg] MD Sara Vick Work Phone: [facility] 03-25-2023 11:05-0500 Heart rate 72 /min MD Sara Vick Work Phone: [facility] 03-25-2023 11:05-0500 Respiratory rate 18 /min MD Sara Vick Work Phone: [facility] 03-25-2023 11:05-0500 SaO2% (BldA) [Mass fraction] 97 % MD Sara Vick Work Phone: [facility] 03-25-2023 11:05-0500 Systolic blood pressure 146 mm[Hg] MD Sara Vick Work Phone: [facility] 03-25-2023 10:27-0500 Inhaled oxygen flow rate 3 L/min MD Sara Vick Work Phone: [facility] 03-25-2023 10:14-0500 Body height 173.99 cm MD Sara Vick Work Phone: [facility] 03-25-2023 10:14-0500 Body weight 88.45 kg MD Sara Vick Work Phone: [facility] 01-27-2023 14:30-0400 Body height 175.26 cm Dominique Shane Other [facility] Other 01-27-2023 14:30-0400 Diastolic blood pressure 70 mm[Hg] Dominique Shane Other [facility] Other 01-27-2023 14:30-0400 SaO2% (BldA) [Mass fraction] 98 % Dominique Shane Other [facility] Other 01-27-2023 14:30-0400 Systolic blood pressure 118 mm[Hg] Dominique Shane Other [facility] Other 01-09-2023 10:15-0400 Body height 175.26 cm Larry Brown Other [facility] Other 01-09-2023 10:15-0400 Body mass index (BMI) [Ratio] 29.56 kg/m2 Larryrandy Brown Other [facility] Other 01-09-2023 10:15-0400 Body weight 90.81 kg Larry Brown Other [facility] Other 01-09-2023 10:15-0400 Diastolic blood pressure 78 mm[Hg] Larry Brown Other [facility] Other 01-09-2023 10:15-0400 SaO2% (BldA) [Mass fraction] 98 % Larry Brown Other [facility] Other 01-09-2023 10:15-0400 Systolic blood pressure 130 mm[Hg] Larry Brown Other [facility] Other 12-12-2022 09:30-0400 Body height 175.26 cm Larry Brown Other [facility] Other 12-12-2022 09:30-0400 Body mass index (BMI) [Ratio] 29.77 kg/m2 Larry Brown Other [facility] Other 12-12-2022 09:30-0400 Body weight 91.45 kg Larry Brown Other [facility] Other 12-12-2022 09:30-0400 Diastolic blood pressure 74 mm[Hg] Larry Brown Other [facility] Other 12-12-2022 09:30-0400 SaO2% (BldA) [Mass fraction] 99 % Larry Brown Other [facility] Other 12-12-2022 09:30-0400 Systolic blood pressure 122 mm[Hg] Larry Brown Other [facility] Other 09-19-2022 12:00-0400 Body height 175.26 cm Larry Brown Other [facility] Other 09-19-2022 12:00-0400 Body mass index (BMI) [Ratio] 30.8 kg/m2 Larry Brown Other [facility] Other 09-19-2022 12:00-0400 Body weight 94.62 kg Larry Brown Other [facility] Other 09-19-2022 12:00-0400 SaO2% (BldA) [Mass fraction] 95 % Larry Brown Other [facility] [employer] Other 09-18-2022 10:40-0400 Body height 172.7 cm Perfecto Burch MD Work Phone: [facility] 09-18-2022 10:40-0400 Body mass index (BMI) [Ratio] 31.26 kg/m2 Perfecto Burch MD Work Phone: [facility] 09-18-2022 10:40-0400 Body temperature 96.4 [degF] Perfecto Burch MD Work Phone: [facility] 09-18-2022 10:40-0400 Body weight 93.26 kg Perfecto Burch MD Work Phone: [facility] 07-27-2022 15:38-0400 Hourly Rounding [facility] 07-27-2022 15:38-0400 Promise to Return [facility] 07-27-2022 14:38-0400 Hourly Rounding [facility] 07-27-2022 14:38-0400 Promise to Return [facility] 07-27-2022 13:38-0400 Hourly Rounding [facility] 07-27-2022 13:38-0400 Promise to Return [facility] 07-27-2022 12:08-0400 Heart rate 106 /min [facility] 07-27-2022 12:08-0400 SaO2% (BldA) [Mass fraction] 100 % [facility] 07-27-2022 12:07-0400 Diastolic blood pressure 79 mm[Hg] [facility] 07-27-2022 12:07-0400 Mean blood pressure 103 mm[Hg] [facility] 07-27-2022 12:07-0400 Systolic blood pressure 151 mm[Hg] [facility] 07-27-2022 12:06-0400 Body temperature 97.16 [degF] [facility] 07-27-2022 07:46-0400 Heart rate 82 /min [facility] 07-27-2022 07:46-0400 SaO2% (BldA) [Mass fraction] 97 % [facility] 07-27-2022 07:46-0400 Diastolic blood pressure 81 mm[Hg] [facility] 07-27-2022 07:46-0400 Mean blood pressure 116 mm[Hg] [facility] 07-27-2022 07:46-0400 Systolic blood pressure 186 mm[Hg] [facility] 07-27-2022 07:45-0400 Body temperature 97.52 [degF] [facility] 07-27-2022 01:46-0400 Heart rate 89 /min [facility] 07-27-2022 01:46-0400 SaO2% (BldA) [Mass fraction] 96 % [facility] 07-27-2022 01:45-0400 Diastolic blood pressure 67 mm[Hg] [facility] 07-27-2022 01:45-0400 Mean blood pressure 89 mm[Hg] [facility] 07-27-2022 01:45-0400 Systolic blood pressure 134 mm[Hg] [facility] 07-27-2022 01:45-0400 Body temperature 98.06 [degF] [facility] 07-27-2022 01:45-0400 Blood Pressure Location [facility] 07-27-2022 01:45-0400 Respiratory rate 18 /min [facility] 07-26-2022 20:00-0400 Respiratory rate 16 /min [facility] 07-26-2022 17:20-0400 Blood Pressure Location [facility] 07-26-2022 17:20-0400 Heart rate 78 /min [facility] 07-26-2022 15:30-0400 Respiratory rate 12 /min [facility] 07-26-2022 15:00-0400 Mean blood pressure 122 mm[Hg] [facility] 07-26-2022 15:00-0400 Respiratory rate 8 /min [facility] 07-26-2022 14:30-0400 Mean blood pressure 112 mm[Hg] [facility] 07-26-2022 14:30-0400 Respiratory rate 12 /min [facility] 07-26-2022 13:30-0400 Mean blood pressure 95 mm[Hg] [facility] 07-26-2022 11:35-0400 gluc 105 mg/dL [facility] 07-26-2022 11:35-0400 gluc Francisco [facility] 07-26-2022 11:35-0400 Heart rate 72 /min [facility] 07-26-2022 11:35-0400 Respiratory rate 18 /min Franciscoalberto Alc[facility] 05-02-2022 10:00-0500 Body height 175.26 cm Larry Carrilloky Other [facility] [employer] Other 05-02-2022 10:00-0500 Body mass index (BMI) [Ratio] 31.89 kg/m2 Larry Carrilloky Other [facility] Other 05-02-2022 10:00-0500 Body weight 97.98 kg Larry Carrilloky Other [facility] [facility] Other 05-02-2022 10:00-0500 Diastolic blood pressure 80 mm[Hg] Larry Brown Other [facility] [facility] Other 05-02-2022 10:00-0500 Systolic blood pressure 134 mm[Hg] Larry Brown Other [facility] Other 03-08-2022 17:00-0500 Diastolic blood pressure 117 mm[Hg] [facility] 03-08-2022 17:00-0500 Mean blood pressure 131 mm[Hg] W[facility] 03-08-2022 17:00-0500 SaO2% (BldA) [Mass fraction] 95 % [facility] 03-08-2022 17:00-0500 Systolic blood pressure 160 mm[Hg] [facility] 03-08-2022 16:30-0500 Diastolic blood pressure 85 mm[Hg] [facility] 03-08-2022 16:30-0500 Heart rate 75 /min [facility] 03-08-2022 16:30-0500 Mean blood pressure 94 mm[Hg] [facility] 03-08-2022 16:30-0500 Respiratory rate 15 /min [facility] 03-08-2022 16:30-0500 SaO2% (BldA) [Mass fraction] 98 % [facility] 03-08-2022 16:30-0500 Systolic blood pressure 112 mm[Hg] [facility] 03-08-2022 16:10-0500 Diastolic blood pressure 74 mm[Hg] [facility] 03-08-2022 16:10-0500 Heart rate 93 /min [facility] 03-08-2022 16:10-0500 Mean blood pressure 90 mm[Hg] [facility] 03-08-2022 16:10-0500 Respiratory rate 14 /min [facility] 03-08-2022 16:10-0500 SaO2% (BldA) [Mass fraction] 98 % [facility] 03-08-2022 16:10-0500 Systolic blood pressure 122 mm[Hg] [facility] 03-08-2022 15:15-0500 Respiratory rate 18 /min [facility] 03-08-2022 15:00-0500 Hourly Rounding [facility] 03-08-2022 15:00-0500 Promise to Return [facility] 03-08-2022 14:45-0500 Respiratory rate 20 /min [facility] 03-08-2022 14:15-0500 Respiratory rate 20 /min [facility] 03-08-2022 14:14-0500 Hourly Rounding [facility] 03-08-2022 14:14-0500 Promise to Return [facility] 03-08-2022 13:54-0500 Heart rate 99 /min [facility] 03-08-2022 13:37-0500 Body temperature 97.7 [degF] [facility] 03-08-2022 13:37-0500 Heart rate 104 /min [facility] 03-08-2022 13:00-0500 Hourly Rounding [facility] 03-08-2022 13:00-0500 Promise to Return [facility] 03-07-2022 11:00-0500 Body height 175.26 cm Larry Brown Other [facility] [facility] Other 03-07-2022 11:00-0500 Body mass index (BMI) [Ratio] 32.54 kg/m2 Larry Brown Other [facility] Other 03-07-2022 11:00-0500 Body weight 99.97 kg Larry Brown Other [facility] Other 03-07-2022 11:00-0500 SaO2% (BldA) [Mass fraction] 99 % Larry Brown Other [facility] Other 06-20-2017 09:19-0500 PAIN LEVEL 0 {score} Praveen Whatleypara Garnavillo Bynum 06-20-2017 06:29-0500 PAIN LEVEL 0 {score} Valdominga Whatleypara Garnavillo Bynum 06-20-2017 06:25-0500 PAIN LEVEL 6 {score} Valdominga Whatleypara Garnavillo Bynum 06-20-2017 06:21-0500 Body Temperature 98.1 [degF] Praveen Matamorosa Garnavillo Bynum 06-20-2017 06:21-0500 BP Diastolic 78 mm[Hg] Valji Chacortapara Garnavillo Bynum 06-20-2017 06:21-0500 BP Systolic 143 mm[Hg] Valji Chacortapara Garnavillo Bynum 06-20-2017 06:21-0500 Pulse (Heart Rate) 90 /min Praveen Matamorosa Celestino Vill a 06-20-2017 06:21-0500 Pulse Oximetry 99 % Valdominga Whatleypara Garnavillo Bynum 06-20-2017 06:21-0500 Respiratory Rate 20 /min Praveen Bynum 06-20-2017 00:38-0500 PAIN LEVEL 0 {score} Praveen Bynum 06-19-2017 20:44-0500 PAIN LEVEL 9 {score} Praveen Bynum 06-19-2017 20:43-0500 PAIN LEVEL 8 {score} Praveen Bynum 06-19-2017 18:47-0500 Body Temperature 97.9 [degF] Praveen Bynum 06-19-2017 18:46-0500 Body Temperature 97.9 [degF] Praveen Bynum 06-19-2017 18:46-0500 BP Diastolic 81 mm[Hg] Praveen Bynum 06-19-2017 18:46-0500 BP Systolic 144 mm[Hg] Praveen Bynum 06-19-2017 18:46-0500 Pulse (Heart Rate) 91 /min Praveen hernandez 06-19-2017 18:46-0500 Pulse Oximetry 99 % Praveen Bynum 06-19-2017 18:46-0500 Respiratory Rate 19 /min Praveen Bynum 06-19-2017 18:45-0500 Body Temperature 97.9 [degF] Praveen Bynum 06-19-2017 18:45-0500 BP Diastolic 81 mm[Hg] Praveen Bynum 06-19-2017 18:45-0500 BP Systolic 144 mm[Hg] Praveen Bynum 06-19-2017 18:45-0500 Pulse (Heart Rate) 91 /min Praveen hernandez 06-19-2017 18:45-0500 Pulse Oximetry 99 % Praveen Bynum 06-19-2017 18:45-0500 Respiratory Rate 19 /min Praveen Bynum 06-19-2017 16:04-0500 Height 175.26 cm Pravene Bynum 06-19-2017 15:43-0500 Body Temperature 98 [degF] Praveen Bynum 06-19-2017 15:43-0500 BP Diastolic 74 mm[Hg] Praveen Bynum 06-19-2017 15:43-0500 BP Systolic 140 mm[Hg] Praveen Bynum 06-19-2017 15:43-0500 Pulse (Heart Rate) 88 /min Praveen hernandez 06-19-2017 15:43-0500 Pulse Oximetry 98 % Praveen Bynum 06-19-2017 15:43-0500 Respiratory Rate 18 /min Praveen Bynum 06-19-2017 09:24-0500 PAIN LEVEL 0 {score} Praveen Bynum 06-19-2017 09:24-0500 Body Temperature 98 [degF] Praveen Bynum 06-19-2017 09:24-0500 Body Temperature 98 [degF] Praveen Bynum 06-19-2017 08:09-0500 Weight 103.69 kg Praveen Bynum 06-19-2017 08:06-0500 PAIN LEVEL 0 {score} Praveen Bynum 06-19-2017 08:05-0500 Body Temperature 98 [degF] Praveen Bynum 06-19-2017 08:05-0500 BP Diastolic 78 mm[Hg] Praveen Bynum 06-19-2017 08:05-0500 BP Systolic 152 mm[Hg] Praveen Bynum 06-19-2017 08:05-0500 Pulse (Heart Rate) 98 /min Praveen hernandez 06-19-2017 08:05-0500 Pulse Oximetry 98 % Praveen Bynum 06-19-2017 08:05-0500 Respiratory Rate 20 /min Praveen Bynum 06-19-2017 06:40-0500 PAIN LEVEL 5 {score} Praveen Bynum 06-19-2017 00:34-0500 PAIN LEVEL 0 {score} Praveen Bynum 06-19-2017 00:34-0500 PAIN LEVEL 0 {score} Praveen Bynum 06-19-2017 00:26-0500 Body Temperature 100 [degF] Praveen Bynum 06-19-2017 00:26-0500 BP Diastolic 77 mm[Hg] Praveen Bynum 06-19-2017 00:26-0500 BP Systolic 156 mm[Hg] Praveen Bynum 06-19-2017 00:26-0500 Height 162.56 cm Praveen Bynum 06-19-2017 00:26-0500 Pulse (Heart Rate) 98 /min Praveen hernandez 06-19-2017 00:26-0500 Pulse Oximetry 98 % Praveen Bynum 06-19-2017 00:26-0500 Respiratory Rate 18 /min Praveen Bynum 06-19-2017 00:26-0500 Weight 109.68 kg Praveen Bynum 06-19-2017 00:22-0500 Body Temperature 100 [degF] Praveen Bynum 06-18-2017 23:11-0500 PAIN LEVEL 3 {score} Praveen Bynum Encounters Encounter Date Encounter Type Care Provider Facility Start: 04-24-2023 ambulatory Sara Vick Facility: [facility] Start: 04-16-2023 End: 04-16-2023 ambulatory Dominique Shane Other [facility] [employer] Other Start: 04-16-2023 Telephone encounter Dominiquevanna Shane [facility] Start: 04-03-2023 End: 04-03-2023 ambulatory Larry Brown Other [employer] Other Start: 04-03-2023 Office outpatient vi sit 15 minutes Larry Brown [facility] [place] Start: 03-25-2023 (PROC) [facility] Start: 03-25-2023 End: 03-25-2023 ambulatory Sara Vick Facility:[facility] Start: 03-25-2023 End: 03-25-2023 Admission to same day surgery center MD Sara Vick Work Phone: [facility] Work Phone: Start: 03-25-2023 End: 03-25-2023 ambulatory MD Sara Vick Work Phone: [facility] Work Phone: Start: 02-10-2023 End: 02-10-2023 ambulatory Dominique Shane Other [employer] Other Start: 02-10-2023 Telephone encounter Dominique Shane [facility] Start: 01-27-2023 End: 01-27-2023 ambulatory Dominique Shane Other [employer] Other Start: 01-27-2023 Office outpatient vi sit 25 minutes Dominique Shane [facility] [place] Start: 01-27-2023 Telephone encounter Larry Stephanie [facility] Start: 01-09-2023 End: 01-09-2023 ambulatory Larry Stephanie Other [employer] Other Start: 01-09-2023 Office outpatient vi sit 25 minutes Larry Stephanie [facility] [place] Start: 12-12-2022 End: 12-12-2022 ambulatory Larry Stephanie Other [employer] Other Start: 12-12-2022 Office outpatient vi sit 25 minutes Larry Stephanie [facility] [place] Start: 11-22-2022 End: 11-22-2022 Emergency department patient visit Flavio Castillo Facility[facility] Start: 09-19-2022 End: 09-19-2022 ambulatory Larry Stephanie Other [employer] Other Start: 09-19-2022 Office outpatient vi sit 25 minutes Larry SHERWOOD [facility] [place] Start: 09-18-2022 ambulatory [facility] Start: 09-18-2022 End: 09-18-2022 Office outpatient new 30 minutes Perfecto Burch MD Work Phone: [facility] Comment on above: 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, sequela (Primary Dx) Start: 09-18-2022 End: 09-18-2022 Subsequent hospital visit by physician Perfecto Burch MD Work Phone: [facility] Start: 09-17-2022 ambulatory ADELE FLEMING Faci lity:[facility] Start: 09-10-2022 End: 09-10-2022 ambulatory Sara Vick Facility:[facility] Start: 09-09-2022 End: 09-10-2022 ambulatory ADELE FLEMING Facility: Start: 09-08-2022 End: 09-09-2022 ambulatory Alley Naranjo Facility:[facility] Start: 08-18-2022 End: 08-19-2022 ambulatory ADELE FLEMING Facility:[facility] Start: 08-13-2022 ambulatory [facility] Start: 08-12-2022 End: 08-13-2022 ambulatory ADELE FLEMING Facility:[facility] Start: 08-08-2022 End: 08-09-[address] ALFRED UMAÑA Facility: Start: 08-01-2022 End: 08-02-2022 ambulatory ADELE FLEMING Facility:[facility] Start: 07-26-2022 End: 07-27-2022 ambulatory Julio Ferrara Facility:[facility] Start: 07-26-2022 End: 07-27-2022 Observation Francisco S Otton[facility] Start: 07-25-2022 Encounter for preprocedural cardiovascular examination ADELE FLEMING [facility] Start: 07-25-2022 Encounter for preprocedural laboratory examination [facility] Start: 07-24-2022 End: 07-25-2022 ambulatory ADELE FLEMING Facility:[facility] Start: 07-24-2022 End: 07-24-2022 ambulatory ADELE Means [facility] Facility:[facility] Start: 07-18-2022 End: 07-19-2022 ambulatory ADELE Means [facility] Facility:[facility] Start: 07-18-2022 End: 07-19-2022 Encounter for preprocedural cardiovascular examination ADELE Means [facility] Facility:[facility] Start: 07-08-2022 End: 07-09-2022 ambulatory ADELE Means [facility] Facility:[facility] Start: 07-01-2022 End: 07-02-[address] ALFRED UMAÑA Facility:[facility] Start: 06-24-2022 End: 06-25-2022 [facility]ulatory [facility] Start: 06-19-2022 End: 06-20-[address] ALFRED UMAÑA Facility:[facility] Start: 06-19-2022 End: 06-19-2022 ambulatory Sara Vick Facility:[facility] Start: 06-19-2022 End: 06-19-2022 ambulatory MD Sara Vick Work Phone: [facility] Work Phone: Start: 06-19-2022 End: 06-19-2022 Discharged Recurring MD Sara Vick Work Phone: [facility] [place] Work Phone: Start: 06-13-2022 End: 06-14-[address] ALFRED UMAÑA Facility:[facility] Start: 06-10-2022 End: 06-11-[address] ALFRED UMAÑA Facility:[facility] Start: 06-09-2022 End: 06-10-2022 ambulatory ADELE FLEMING Facility:[facility] Start: 06-03-2022 End: 06-04-[address] ALFRED UMAÑA Facility:[facility] Start: 05-28-2022 End: 05-29-[address] ALFRED UMAÑA Facility:[facility] Start: 05-21-2022 End: 05-21-[address] AKIL ALEJANDRA Facility:[facility] Start: 05-21-2022 End: 05-22-[address] ALFRED UMAÑA Facility:[facility] Start: 05-21-2022 End: 05-22-[address] SARA VICK . Facility:[facility] Start: 05-02-2022 End: 05-02-2022 ambulatory Larry Stephanie Other [employer] Other Start: 05-02-2022 Office outpatient vi sit 25 minutes Larry Carrilloky [facility] [place] Start: 05-01-2022 End: 05-02-2022 ambulatory ADELE Means [facility] Facility:[facility] Start: 04-22-2022 End: 04-23-2022 ambulatory ADELE Means [facility] Facility:[facility] Start: 04-14-2022 End: 04-15-2022 ambulatory DEEPALI JANSEN Facility:[facility] Start: 04-08-2022 (PROC) PROCEDURE Larry Stephanie [facility] Start: 04-08-2022 End: 04-08-2022 ambulatory Larry Brown Other [employer] Other Start: 03-31-2022 End: 04-01-[address] ALFRED UMAÑA Facility:[facility] Start: 03-08-2022 End: 03-08-2022 Emergency department patient visit Wm Nagy Facility:[facility] Start: 03-08-2022 End: 03-08-2022 Emergency department patient visit Wm Nagy [facility] Start: 03-07-2022 End: 03-07-2022 ambulatory Larry Stephanie Other [employer] Other Start: 03-07-2022 Office consultation new/estab patient 60 min Larry Stephanie [facility] Start: 03-06-2022 End: 03-07-[address] SARA VICK . Facility:[facility] Start: 01-03-2022 End: 01-03-[address] SARA VICK . Facility:[facility] Start: 12-09-2021 End: 12-10-2021 ambulatory SHAWANDA LITTLE Facility:[facility] Start: 11-05-2021 End: 11-06-2021 ambulatory ADELE Means [facility] Facility:[facility] Start: 10-07-2021 End: 10-07-2021 ambulatory PO SUAREZ . Facility: Start: 05-04-2020 End: 05-04-2020 Patient encounter procedure Sara Hoy -Pre-Surgical Testing Start: 05-02-2020 Registered Recurring Sara Vick -P hysical Therapy [place] Start: 04-24-2020 End: 04-24-2020 Patient encounter procedure Sara Hoy -Pre-Surgical Testing Start: 02-01-2020 End: 02-01-2020 Patient encounter procedure Sara Hoy -XRay [facility] Start: 06-29-2018 Patient encounter procedure Sara~[id number] UNKNOWN Hoy Facility:[facility] Start: 12-11-2017 End: 12-12-2017 Patient encounter DEFAULT PHYSICIAN Facility:[facility] Start: 01-07-2017 End: 01-07-2017 Ambulatory BRUCE MATHEW [facility] Procedures Date Procedure Procedure Detail Performing Clinician Start: 03-25-2023 Local anesthetic sac ral epidural block MD Sara Vick Work Phone: Start: 02-01-2020 Plain X-ray of femur Do uglas Hoy Start: 02-01-2020 X-ray of right knee Juliet glas [place] Start: 05-11-2017 Injection of sacroil iac joint using fluoroscopic guidance Wm Nagy Comment on above: left ~ 80 % relief d ay 3 X2 weeks , pain starting to increase Start: 03-09-2017 Transforaminal Epidu ral Steroid Injection 2 Wm Nagy Comment on above: Bilateral L3- 50% re lief starting one week after procedure Start: 02-02-2017 Transforminal epidur al steroid injection 3 Wm Nagy Comment on above: Left L3, L4 40% reli ef for couple weeks Start: 02-09-2014 Dilation and curetta ge of uterus Wm Nagy Start: 07-25-2013 lumbar fusion L4-5 Joyce Nagy Start: 06-20-2013 Epidural injection o f lumbar spine using fluoroscopic guidance Wm Nagy Comment on above: L4-5 70-80% relief a nd lasted 1.5 weeks Start: 04-28-2013 Epidural injection o f lumbar spine using fluoroscopic guidance Verid Comment on above: L5-S1 50% relief Start: 02-21-2013 Injection of facet j oint using fluoroscopic guidance Verid Comment on above: bilateral L3-S1 FJI 50% relief Start: 01-21-2013 Injection of facet j oint using fluoroscopic guidance Verid Comment on above: bilateral L3-S1 FJI 0% relief that day, next day 40% relief and 50-60% relief Start: 01-03-2013 Epidural injection o f lumbar spine using fluoroscopic guidance Verid Comment on above: L5-S1 50% relief Start: 09-02-2012 Epidural injection o f lumbar spine using fluoroscopic guidance Verid Comment on above: L5-S1 left,, no reli ef, increased pain Start: 04-20-2011 Excision of ganglion cyst Wmkeshawn Nagy Start: 07-03-2010 Decompression of med marcus nerve Wmkeshawn Nagy Start: 07-03-2010 Repair of musculoten dinous cuff of shoulder Wmkeshawn Nagy Start: 04-20-2007 Cholecystectomy Wm lara foot surgery right x3 [place]hawn Nagy left GLORIA Wm Yakov Ligation of fallopian tube K josep Nagy Lumbar and lumbosacr al fusion by posterior technique Wm[place]hawn Nagy Comment on above: [address] Gilman, cleaned infection out 2nd surgery, infection spread removal of rib and higher fusion (3rd surgery) right knee scope wit h partial meniscectomy Wm Yakov Plan of Treatment Date Care Activity Detail Author Start: 03-25-2023 [facility] Start: 01-28-2022 COVID-19 VACCINE (5 - Booster for Pfizer series) COVID-19 VACCINE (5 - Booster for Pfizer series) [facility] Start: 08-24-2019 Screening for malign ant neoplasm of breast MAMMOGRAM SCREENING DISCUSSION [facility] Start: 12-20-2001 Zoster vaccine hzv l jane for subcutaneous use ZOSTER (SHINGLES) VACCINE (1 of 2) [facility] Start: 12-20-1996 Screening for malign ant neoplasm of colon COLORECTAL CANCER SCREENING DISCUSSION [facility] Start: 1991 Lipid panel LIPID SCREENING [facility] Start: 12-20-1972 Screening for malign ant neoplasm of cervix CERVICAL CANCER SCREENING DISCUSSION [facility] Start: 12-20-1970 Third diphtheria, tetanus and acellular pertussis (DTaP) vaccination TDAP (ADULT) [facility] Start: 1950 Hepatitis C screening HEPATITI S C VIRUS SCREENING [facility] Start: 1950 Screening for osteoporosis DEXA SCAN DISCUSSION [facility] Start: 1950 Tetanus vaccination TETANUS [facility] Patient Education Stephanie Non Diagn ostic Block [facility] Work Phone: Patient referral [facility] Work Phone: XR Knee - left 3 Views XR KNEE L EFT 3 VIEWS Imaging Routine Pain in prosthetic joint, sequela Ordered: 09/16/2022 [facility] Comment on above: Ordered: 09/16/2022 XR Pelvis and Hip - left Views XR HIP WITH PELVIS LEFT Imaging Routine Pain in prosthetic joint, sequela 09/18/2022 10:11 AM EDT [facility] Work Phone: Immunizations Immunization Date Immunization Notes Care Provider Fa cility 07-12-2020 COVID-19, mRNA, LNP- S, PF, 30 mcg/0.3 mL dose Wm Nagy [facility] Comment on above: Reason for Medicatio n: Prophylaxis 06-14-2020 COVID-19, mRNA, LNP- S, PF, 30 mcg/0.3 mL dose Wm Nagy [facility] Comment on above: Reason for Medicatio n: Prophylaxis 02-18-2018 pneumococcal polysaccharide vaccine, 23 valent Wm Nagy [facility] 06-18-2017 tuberculin skin test ; unspecified formulation Praveen Bynum 02-05-2017 pneumococcal conjuga te vaccine, 13 valent [facility] 10-20-2012 pneumococcal polysaccharide vaccine, 23 valent Wm Nagy [facility] Payers Date Payer Category Payer Private Health Insurance 2022 Self-pay [id number] 2020 Unknown [id number] 2018 Medicare MEDICARE HUMANA HMO PPO MEDICARE HU[employer]NA HMO PPO [id number] 2018-Present [address] [address] [place] [address] [id number] 1959 Private Health Insurance [id number] 1951 Unknown [id number] ..1.321051.3.579.2 .727 1951 Unknown [id number] .840.1.720966.3.579.2 .159 1951 Unknown [id number] 2.840.1.345831.3.579.2 .593 1951 Unknown [id number] .840.1.113565.3.579.2 .593 1951 Unknown [id number] 2.840.1.414072.3.579.2 .593 1951 Unknown [id number] 2.16.840.1.294830.3.579.2 .593 1951 Unknown [id number] 2.16.840.1.977748.3.579.2 .593 1951 Unknown [id number] 2.16.840.1.719871.3.579.2 .593 1951 Unknown [id number] 2.16.840.1.116141.3.579.2 .593 1951 Unknown [id number] 2.16.840.1.135163.3.579.2 .593 1951 Unknown [id number] 2.16.840.1.880495.3.579.2 .593 1951 Unknown [id number] 2.16.840.1.112651.3.579.2 .593 1951 Unknown [id number] 2.16.840.1.971658.3.579.2 .593 1951 Unknown [id number] 2.16.840.1.695133.3.579.2 .593 1951 Unknown [id number] 2.16.840.1.071174.3.579.2 .593 1951 Unknown [id number] 2.16.840.1.622042.3.579.2 .593 1951 Unknown [id number] 2.16.840.1.972412.3.579.2 .593 1951 Unknown [id number] 2.16.840.1.112764.3.579.2 .593 1951 Unknown [id number] 2.16.840.1.296103.3.579.2 .593 1951 Unknown [id number] 2.16.840.1.899109.3.579.2 .593 1951 Unknown [id number] 2.16.840.1.020931.3.579.2 .593 1951 Unknown [id number] 2.16.840.1.986370.3.579.2 .593 1951 Unknown [id number] 2.16.840.1.718084.3.579.2 .593 1951 Unknown [id number] 2.16.840.1.307860.3.579.2 .593 1951 Unknown [id number] 2.16.840.1.371293.3.579.2 .593 1951 Unknown [id number] 2.16.840.1.679489.3.579.2 .593 1951 Unknown [id number] 2.16.840.1.404220.3.579.2 .593 1951 Unknown [id number] 2.16.840.1.908480.3.579.2 .593 1951 Unknown [id number] 2.16.840.1.831345.3.579.2 .593 1951 Unknown [id number] 2.16.840.1.136505.3.579.2 .593 1951 Unknown [id number] 2.16.840.1.196390.3.579.2 .593 1951 Unknown [id number] 2.16.840.1.808191.3.579.2 .983 1951 Unknown [id number] 2.16.840.1.939336.3.579.2 .983 1951 Unknown [id number] 2.16.840.1.613076.3.579.2 .983 1951 Unknown [id number] 2.16.840.1.311804.3.579.2 .727 1951 Unknown [id number] 2.16.840.1.175914.3.579.2 .727 1951 Unknown [id number] 2.16.840.1.340737.3.579.2 .727 1951 Unknown [id number] 2.16.840.1.680479.3.579.2 .727 Unknown Unknown [id number] Unknown [id number] Unknown [id number] 2.16.840.1.417712.3.579.2 .531 Unknown [id number] 2.16.840.1.939185.3.579.2 .531 Unknown [id number] 2.16.840.1.219323.3.579.2 .531 Unknown [id number] 2.16.840.1.272568.3.579.2 .531 Social History Date Type Detail Facility Start: 06-18-2017 Unknown if ever smoked [employer] Start: 04-24-2020 End: 05-07-2020 Tobacco smoking status NHIS Never smoked tobacco (finding) [facility] Start: 1950 Sex Assigned At Female F [facility] Sex Assigned At [facility] Start: 09-18-2022 Tobacco use and exposure Smokeless tobacco non-user [facility] Start: 09-18-2022 Alcohol intake Current drinke r of alcohol (finding) [facility] Start: 09-18-2022 Alcohol Comment occasional [facility] Start: 1950 Sex Assigned At Not on file [facility] Procedure Code Equipment Code Equipment Origin al Text Equipment Identifier Dates Arthroplasty, knee, total, minimally invasive Orthopaedic cement, non-medicated [id number] FDA Start: 05-07-2020 Arthroplasty, knee, total, minimally invasive Uncoated knee femur prosthesis, metallic [id number] FDA Start: 05-07-2020 Arthroplasty, knee, total, minimally invasive Tibial insert [id number] FDA Start: 05-07-2020 Arthroplasty, knee, total, minimally invasive Uncoated knee tibia prosthesis, metallic [id number] FDA Start: 05-07-2020 Arthroplasty, knee, total, minimally invasive Polyethylene patella prosthesis ()[id number] FDA Start: 05-07-2020 Goals Date Patient Goal Desired Activity /State Functional Status Date Assessment Result Facility 07-26-2022 Functional Status No [facility] 07-26-2022 Functional Status [facility] 03-08-2022 Functional Status No [facility] Clinical Notes 10-07-2021 to 04-16-2023 Note Date & Type Note Facility 04-16-2023 Evaluation note Encounter Date Diagnosis Assessment Notes Mar, Lumbar radiculopathy (ICD-10 - M54.16) 72 year old female evaluated via telephonic call for follow up and medication refill for chronic pain. She voices complaints of low back pain with intermittent radiation down the right lower extremity. She continues taking [place] with relief and is requesting a refill of this today. I discussed different treatment options in detail with the patient. She feels medication is managing her pain and does not wish to proceed with injections at this time. I encouraged the patient to start physical therapy as previously discussed. She can also continue taking medications as prescribed and I will refill her [place] as she feels this provides an element of relief. Mar, Sacroiliitis (ICD-10 - M46.1) Stable, continue medication management for the time being. Consider SI joint injections in the future if needed Mar, Lumbosacral spondylosis (ICD-10 - M47.817) Consider proceeding with a bilateral lumbar facet medial branch nerve blocks in the future if needed. Mar, Lumbar degenerative disc disease (ICD-10 - M51.36) Stable, follow up in 2 weeks for medication refill 28 Dec, 2023 Chronic pain (ICD-10 - G89.29) Continue medication management. [facility] Other 12-15-2023 Evaluation note* Encounter Date Diagnosis Assessment Notes Treatment Notes Treatment Clinical Notes Mar, Lumbar radiculopathy (ICD-10 - M54.16) 72 year old female here for follow up status post caudal epidural steroid injection under fluoroscopic guidance. Patient reports 70% relief of her lower extremity pain following the procedure. She voices complaints of low back pain today. Clinically her back pain presents as a combination of lumbosacral spondylosis and sacroiliitis. I offered to proceed with interventional treatment options to help relieve her back pain, she would like to hold off for the time being. She can continue Hydrocodone/Acetamin ophen as needed. In the meantime I will refer her to physical therapy for core muscle strengthening. Mar, Sacroiliitis (ICD-10 - M46.1) Stable, continue medication management for the time being. Consider SI joint injections in the future if needed Mar, Lumbosacral spondylosis (ICD-10 - M47.817) Consider proceeding with a bilateral lumbar facet medial branch nerve blocks in the future if needed. Mar, Lumbar degenerative disc disease (ICD-10 - M51.36) Stable, follow up in 2 weeks for medication refill Mar, Chronic pain (ICD-10 - G89.29) Continue medication management. [facility] Other 10-24-2023 Evaluation note* Encounter Date Diagnosis Assessment Notes Treatment Notes Treatment Clinical Notes Jan, Lumbar radiculopathy (ICD-10 - M54.16) [facility] Other 10-10-2023 Evaluation note* Encounter Date Diagnosis Assessment Notes Treatment Notes Treatment Clinical Notes Jan, Lumbar radiculopathy (ICD-10 - M54.16) 72 y/o female here for follow up. She voices complaints of low back pain with radiation down bilateral lower extremities, worse on the right. She also notes significant burning pain in bilateral feet. She rates her pain 3/10 today. We discussed different treatment options and patient would like to repeat the L5 transforaminal steroid injection. She states that her foot wound is healing well, there is only a small spot now. She has not received any steroids recently. I will consult with Dr Brown regarding this. Meanwhile, I will refill her [place] as it does provide an element of relief. Jan, Sacroiliitis (ICD-10 - M46.1) Stable, continue medication management Jan, Lumbosacral spondylosis (ICD-10 - M47.817) Consider proceeding with a bilateral lumbar facet medial branch nerve blocks in the future if needed. Jan, Lumbar degenerative disc disease (ICD-10 - M51.36) Stable, follow up in 4 weeks. Jan, Chronic pain (ICD-10 - G89.29) Patient has continued need for Hydrocodone/Acetamin ophen. OARRS report processed and reviewed and shows no violations. 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 Hydrocodone/Acetamin ophen was refilled today, opioid risk assessment was done as well as pill count. Patient is compliant with opioid medication. The patient denies any opioid related side effects. [facility] Other 09-22-2023 Evaluation note* Encounter Date Diagnosis Assessment Notes Treatment Notes Treatment Clinical Notes Dec, Lumbar radiculopathy (ICD-10 - M54.16) 72 year old female here for follow up and medication refill for chronic pain. She voices complaints of low back pain with radiation down bilateral lower extremities, worse on the right. She also notes significant burning pain in bilateral feet. She notes 2 steroid injections with her PCP in the last week, she also has a healing wound to the right ankle therefore we will not proceed with any steroid injections at this time. In the meantime she can continue Hydrocodone/Aceta minophen as needed. Dec, Sacroiliitis (ICD-10 - M46.1) Stable, continue medication management Dec, Lumbosacral spondylosis (ICD-10 - M47.817) Consider proceeding with a bilateral lumbar facet medial branch nerve blocks in the future if needed. Dec, Lumbar degenerative disc disease (ICD-10 - M51.36) Stable, follow up in 4 weeks. Dec, Chronic pain (ICD-10 - G89.29) Patient has continued need for Hydrocodone/Aceta minophen. OARRS report processed and reviewed and shows no violations. Patient was educated on the risks and benefits of fdc opioid use. Hydrocodone/Aceta minophen was refilled today, opioid risk assessment was done as well as pill count. Patient is compliant with opioid medication. The patient denies any opioid related side effects. Patients last urine drug screen was positive for alcohol, she is counselled against consuming alcohol. [employer] Other 08-25-2023 Evaluation note* Encounter Date Diagnosis Assessment Notes Treatment Notes Treatment Clinical Notes Nov, Lumbar radiculopathy (ICD-10 - M54.16) 71 year old female here for follow up to discuss chronic pain. She was last seen 2.5 months ago. She voices complaints of low back pain, more on the right with radiation down the posterior aspect of bilateral lower extremities to the calves. she states her legs feel numb at night. Discussed with patient different treatment options, she continues to have an open wound although it is slowly healing. She does not return back to the wound care center until the middle of next month. In the future we can consider repeating the epidural steroid injections to help relieve her lower extremity pain. She can continue Lidocaine patches as needed. I will add a low dose of Hydrocodone/Aceta minophen as needed. Nov, Sacroiliitis (ICD-10 - M46.1) Stable, start Hydrocodone/Aceta minophen as needed Nov, Lumbosacral spondylosis (ICD-10 - M47.817) Consider proceeding with a bilateral lumbar facet medial branch nerve blocks in the future if needed. Nov, Lumbar degenerative disc disease (ICD-10 - M51.36) Stable, follow up in 4 weeks. [employer] Other 06-02-2023 Evaluation note* Encounter Date Diagnosis Assessment Notes Treatment Notes Treatment Clinical Notes Sep, Lumbar radiculopathy (ICD-10 - M54.16) 71 year old female here for follow up status post bilateral L5 transforaminal epidural steroid injection under fluoroscopic guidance. Patient reports 80% pain relief as well as improved walking, standing and daily functions following procedure. She voices complaints of low back pain today with intermittent radiation into the outer aspect of the right thigh to the knee. She currently has open areas to the bilateral lower extremities, once these are healed we can consider an SI joint injection vs a caudal epidural steroid injection. She can follow up in 1 month. Sep, Sacroiliitis (ICD-10 - M46.1) Patient currently has open areas to the bilateral lower extremties. once these are healed we can consider an SI joint injection if needed Sep, Lumbosacral spondylosis (ICD-10 - M47.817) Consider proceeding with a bilateral lumbar facet medial branch nerve blocks in the future if needed. [employer] Other 06-01-2023 History of Present illness Narrative* Connie Ramirez LPN - 09/18/2022 10:10 AM EDT Ortho Nurse - Patient Intake Room#: 1--Visit today to have left hip pain evaluated. She had a Left GLORIA done in 10-18-[address] Dickerson. She has had this hip dislocation of this hip 3 times---2017, and 03-08-2022. Her pain in this hip is 3 today. She does have a history of back problems and has had many surgeries for her back. The last surgery for her back was . Date: 09/18/2022 10:58 AM Patient: Leelee Cedillo MR#: [id number] : 1950 Age: 71 y.o. Referring Physician: Sorin Dickerson DO Insurance: Payor: MEDICARE [employer] PPO / Plan: MEDICARE [employer] HMO PPO / Product Type: *No Product type* / Chief Complaint Patient presents with Left Hip - Pain, New Patient Visit Vitals Temp 96.4 F (35.8 C) (Temporal) Ht 1.727 m (5' 8 ) Wt 93.3 kg (205 lb 9.6 oz) BMI 31.26 kg/m Pain Presence of Pain: complains of pain/discomfort Pain Location: hip, left Select Pain Scale: DVPRS (Defense and Veterans Pain Rating Scale) (Adult- Cognitively Intact) Pain Location: hip, left Select Pain Scale: DVPRS (Defense and Veterans Pain Rating Scale) (Adult- Cognitively Intact) Recent Labs No results found for: CRP No results found for: SEDRATE No results found for: WBC, WBCCOUNT, WBCFETAL, HGB, HCT, PLATELET, MCV History Past Medical History: Diagnosis Date Anemia Essential hypertension, benign GERD (gastroesophageal reflux disease) Hypothyroidism Neuropathy Past Surgical History: Procedure Laterality Date KNEE REPLACEMENT Right 04/2020 BACK SURGERY 2014 HIP REPLACEMENT Left 10/18/2012 SHOULDER SURGERY Right 2010 rotator cuff repair GALL BLADDER SURGERY 1999 BACK SURGERY [id number]- FOOT SURGERY [id number] Family History: Her family history is not on file. Social History: Her reports that she has never smoked. She has never used smokeless tobacco. She reports current alcohol use. No history on file for drug use. Additional Social History Y N Notes Do you live alone? [] [x] Who lives with you: Daughter Do you have children? [x] [] How many: 1 Do you currently work? [] [x] What type of work do you do: Do you have stairs in the home? [] [x] How many do you have to climb to enter your home: 2 What services do you currently receive at home? [] [x] Name: Do you have transportation to go to outpatient therapy if needed? [x] [] What Equipment do you have at home? [x] [] [x]Walker, []Crutches, []Commode Chair, [x]Shower []Chair, [x]cane, []bracing Are you followed by a gas regulator repairer helper? [] [x] Name: Are you followed by pain management? [x] [] Name: Dr. Low---[place] Are you followed by any other specialists? [x] [] Name: Dr. Pond-- [place] Outpatient Medications Prior to Visit Medication Sig Dispense Refill alendronate 70 MG tablet Cholecalciferol 50 MCG (1999) capsule 1 capsule. furOSEmide 20 MG tablet 1 tablet Orally Once a day as needed for 30 days gabapentin 600 MG tablet Take 1 tablet by mouth 2 times daily. Levothyroxine 125 MCG tablet 1 tablet in the morning on an empty stomach Orally Once a day for 30 day(s) losartan 100 MG tablet 1 tablet Orally Once a day for 30 day(s) Meloxicam 15 MG tablet 1 tablet Orally Once a day for 30 day(s) Pantoprazole [address] tablet DR 1 tablet Orally Once a day for 30 day(s) tizanidine 4 MG capsule Take 1 capsule by mouth. No facility-administered medications prior to visit. Allergies: She is allergic to sulfacetamide and flagyl [metronidazole]. Y N Are you allergic to any metals? [] [x] If yes, what metals: Review of Systems System Y N Symptoms Constitutional [] [x] Weight Loss [] [x] Weight Gain [] [x] Chronic Fever [] [x] Insomnia Eyes [] [x] Resent Vision Change [] [x] Cataracts [] [x] Glaucoma [] [x] Any Hx of Metal Fragments in the Eye ENT [] [x] Loss of hearing [] [x] Hearing Aids [x] [x] Seasonal Allergies [] [x] Dental Issues Cardiovascular [] [x] Chest Pain [] [x] Angina [] [x] Stent [x] [] Hypertension [] [x] Heart Murmur [] [x] Irregular Pulse [] [x] Pacemaker [] [x] Palpitations [] [x] High cholesteral Respiratory [] [x] Wheezing [] [x] Shortness of Breath [] [x] Pneumonia [] [x] Bronchitis [] [x] Sleep Apnea [] [x] COPD [] [x] Date/ LOC of last CXR: Gastrointestinal [x] [] Heartburn [x] [] Indigestion [] [x] Constipation [] [x] Ulcer [] [x] GI Stomach Bleed [] [x] Diarrhea [] [x] Colon Cancer [x] [] Acid Reflux [] [x] Blood in Stools Musculoskeletal [] [x] Arthritis [] [x] Muscle Weakness [x] [] Joint Pain [x] [] Back Pain [] [x] Fibromyalgia [] [x] Bone Infection [] [x] Swelling - Multiple Joints [] [x] Reflex Sympathetic Dystrophy Skin [] [x] Chronic Rash [x] [] Ulcers Right Lower ankle--treated [] [x] Eczema [] [x] Psoriasis [] [x] Skin Cancer [] [x] Melanoma Neurologic [] [x] Numbness [] [x] Weakness or loss of sensation in arms or legs [] [x] Leg Pain / Sciatica [] [x] Headaches [] [x] Loss of bowel or bladder control Psychiatric [] [x] Anxiety [x] [x] Claustrophobia [] [x] Other Psychiatric Problems Hematologic [] [x] Easy Bruising [] [x] Easy Bleeding [x] [] Blood Transfusion Date: 2012 Endocrine [x] [] Hypothyroid [] [x] Hyperthyroid [] [x] Hot Flashes [] [x] Hormone Replacement [] [x] Prednisone Use Does pt have dentures? no * Perfecto Burch MD - 09/18/2022 10:10 AM EDT HPI: Patient is here today for evaluation of her left hip pain. She is a new patient for me. A pleasant 71 y.o. female with a history of progressive decline, physical function and decreased quality of life secondary to the hip pain. History of left GLORIA on 10/18/[address] Dickerson, subsequent three hip dislocations - 2 dislocations in 2018 after extensive back operation as well as in 2021 after bending over the bathtub cleaning it. Reports multiple back operations with last one being in Dec, 2018. She is here today for a 2nd opinion evaluation. Her pain is a 3/10 upon exam. PHYSICAL EXAM: This is an alert, oriented, and age-appropriate female. She is in no distress. Pleasant and cooperative. EXTREMITIES: Lower extremities have no gross deformity. Normal stability. 5/5 motor. Intact sensation. Normal coordination. Skin intact. Left hip demonstrates full rotation. No lateral tenderness. No palpable defects. Lumbar pain. Contralateral hip has full and supple motion. Nopain. No impingement. No instability. Normal neurovascular status in lower extremities bilaterally. IMAGING: Plain film radiographs were reviewed. AP hip and pelvis films demonstrate a left total hiparthroplasty, component appears to be subsided since original operation, appears to be stable position with not having changed since imaging in 2017. Films also demonstrate significant posterior tilt. IMPRESSION: 1.) History of left GLORIA on 10/18/[address] Dickerson. 2.) History of three hip dislocations, left GLORIA. 3.) Spinapelvic stiffness. 4.) Known back degeneration - multiple back operations. PLAN: I reviewed my findings with Leelee. We discussed the diagnosis, radiographs, physical exam findings and treatment options. We discussed her significant posterior pelvic position and its correlation with hip dislocations. Currently, hip revision is not emergently warranted and has elevated risks of 25% for complication. Her dislocations are likely related to posterior pelvic tilt, extensive back degeneration, extreme flexing and creates episodes of instability. I encouraged her to be attentive to avoidance of specific movements or activities that creates to much flexion. Should a hip dislocation occur with no activities, then we would consider hip revision. I also encouraged her to continue back management. She understands the plan of care. All questions were answered to her satisfaction. Next appointment will be left open to her. I have reviewed the findings of my clinical staff below and agree with their assessment. Vitals: 09/18/22 1040 Temp: 96.4 degrees F (35.8 degrees C) TempSrc: Temporal Weight: 93.3 kg (205 lb 9.6 oz) Height: 1.727 m (5' 8 ) Pain Presence of Pain: complains of pain/discomfort Pain Location: hip, left Select Pain Scale: DVPRS (Defense and Veterans Pain Rating Scale) (Adult- Cognitively Intact) Pain Location: hip, left Select Pain Scale: DVPRS (Defense and Veterans Pain Rating Scale) (Adult- Cognitively Intact) Recent Labs No results found for: CRP No results found for: SEDRATE No results found for: WBC, WBCCOUNT, WBCFETAL, HGB, HCT, PLATELET, MCV Past Medical History: Diagnosis Date Anemia Essential hypertension, benign GERD (gastroesophageal reflux disease) Hypothyroidism Neuropathy Past Surgical History: Procedure Laterality Date KNEE REPLACEMENT Right 04/2020 BACK SURGERY 2014 HIP REPLACEMENT Left 10/18/2012 SHOULDER SURGERY Right 2010 rotator cuff repair GALL BLADDER SURGERY 1999 BACK SURGERY [id number]--2018 FOOT SURGERY [id number] No family history on file. Social History Socioeconomic History Marital status: Tobacco Use Smoking status: Never Smokeless tobacco: Never Vaping Use Vaping Use: Never used Substance and Sexual Activity Alcohol use: Yes Comment: occasional Current Outpatient Medications: alendronate 70 MG tablet, , Disp: , Rfl: Cholecalciferol 50 MCG (1999 [place]) capsule, 1 capsule., Disp: , Rfl: furOSEmide 20 MG tablet, 1 tablet Orally Once a day as needed for 30 days, Disp: , Rfl: gabapentin 600 MG tablet, Take 1 tablet by mouth 2 times daily., Disp: , Rfl: Levothyroxine 125 MCG tablet, 1 tablet in the morning on an empty stomach Orally Once a day for 30 day(s), Disp: , Rfl: losartan 100 MG tablet, 1 tablet Orally Once a day for 30 day(s), Disp: , Rfl: Meloxicam 15 MG tablet, 1 tablet Orally Once a day for 30 day(s), Disp: , Rfl: Pantoprazole [address] tablet DR, 1 tablet Orally Once a day for 30 day(s), Disp: , Rfl: tizanidine 4 MG capsule, Take 1 capsule by mouth., Disp: , Rfl: Allergies Allergen Reactions Sulfacetamide Rash Flagyl [Metronidazole] [facility]:Result Comment: Electronically Signed By: Rachel SALTER\.br\Date and Time Signed: 07/27/22 15:21 EDT\.br\Electronically Co-Signed By: Ottoniel RUFF, Francisco Beck\.br\Date and Time Co- Signed: 07/27/22 17:04 [id number] Hospital Discharge instructions Patient Education 07/27/2022 15:20:26 Near-Syncope Near-Syncope Near-syncope is when you suddenly feel like you might pass out (faint), but you do not actually lose consciousness. This may also be referred to as presyncope. During an episode of near-syncope, you may: Feel dizzy, weak, or light-headed. Feel nauseous. See all white or all black in your field of vision, or see spots. Have cold, clammy skin. This condition is caused by a sudden decrease in blood flow to the brain. This decrease can result from various causes, but most of those causes are not dangerous. However, near-syncope may be a signof a serious medical problem, so it is important to seek medical care. Follow these instructions at home: Medicines Take szux-[id number] and prescription medicines only as told by your health care provider. If you are taking blood pressure or heart medicine, get up slowly and take several minutes to sit and then stand. This can reduce dizziness. General instructions Pay attention to any changes in your symptoms. Talk with your health care provider about your symptoms. You may need to have testing to understandthe cause of your near-syncope. If you start to feel like you might faint, lie down right away and raise (elevate) your feet above the level of your heart. Breathe deeply and steadily. Wait until all of the symptoms have passed. Have someone stay with you until you feel stable. Do not drive, use machinery, or play sports until your health care provider says it is okay. Drink enough fluid to keep your urine pale yellow. Keep all follow-up visits as told by your health care provider. This is important. Get help right away if you: Have a seizure. Have unusual pain in your chest, abdomen, or back. Faint once or repeatedly. Have a severe headache. Are bleeding from your mouth or rectum, or you have black or tarry stool. Have a very fast or irregular heartbeat (palpitations). Are confused. Have trouble walking. Have severe weakness. Have vision problems. These symptoms may represent a serious problem that is an emergency. Do not wait to see if your symptoms will go away. Get medical help right away. Call your local emergency services (911 in the [place] Do not drive yourself to the hospital. Summary Near-syncope is when you suddenly feel like you might pass out (faint), but you do not actually lose consciousness. This condition is caused by a sudden decrease in blood flow to the brain. This decrease can result from various causes, but most of those causes are not dangerous. Near-syncope may be a sign of a serious medical problem, so it is important to seek medical care. This information is not intended to replace advice given to you by your health care provider. Make sure you discuss any questions you have with your health care provider. Document Released: 04/06/2006 Document Revised: 07/29/2019 Document Reviewed: 02/23/2019 [employer] Patient Education 2020 [employer] 07/27/2022 15:20:26 Vasovagal Syncope, Pediatric Vasovagal Syncope, Pediatric Syncope, also called fainting or passing out, is a temporary loss of consciousness. It occurs when the blood flow to the brain is reduced. Vasovagal syncope, which is also called neurocardiogenic syncope, is a fainting spell in which the blood flow to the brain is reduced because of a sudden drop in heart rate and blood pressure. Vasovagal syncope often occurs in response to fear or some other type of emotional or physical stress.. This type of fainting spell is generally considered harmless. However, injuries can occur if a child falls during a fainting spell. What are the causes? This condition is caused by a sudden decrease in blood pressure and heart rate, usually in responseto a trigger. Many factors and situations can trigger an episode. Some common triggers include: Pain. Fear. Seeing blood. This may occur during medical procedures, such as when blood is being drawn from a vein. Common activities, such as coughing, swallowing, stretching, or going to the bathroom. Emotional stress. Being in a confined space. Standing for a long time, especially in a warm environment. Lack of sleep or rest. Not eating for a long time. Not drinking enough liquids. Recent illness. Using drugs that affect blood pressure, such as alcohol, marijuana, cocaine, opiates, or inhalants. What are the signs or symptoms? Before the fainting episode, your child may: Feel dizzy or light-headed. Become pale. Sense that he or she is going to faint. Feel like the room is spinning. Only see directly ahead (tunnel vision). Feel nauseous. See spots or slowly lose vision. Hear ringing in the ears. Have a headache. Feel warm and sweaty. Feel a sensation of pins and needles. During the fainting spell, your child will generally be unconscious for no longer than a couple minutes before waking up and returning to normal. Getting up too quickly before his or her body can recover can cause your child to faint again. Some twitching or jerky movements may occur during the fainting spell. How is this diagnosed? Your child's health care provider will ask about your child's symptoms, take a medical history, andperform a physical exam. Most times, your child's health care provider will make a diagnosis based on your explanation of the event plus an electrocardiogram (ECG). Other tests may be done to rule out other causes. These may include: Blood tests. Other tests to check the heart, such as: ?Echocardiogram. ?Holter monitor. This is a wearable device that performs a prolonged ECG that monitors your child'sheart over days to weeks. ?Electrophysiology study. This tests the electrical activity of the heart to find the cause of an abnormal heart rhythm (arrhythmia) A test to check the response of your child's body to changes in position (tilt table test). This may be done when other causes have been ruled out. How is this treated? Most cases of this condition do not require treatment. Your child's health care provider may recommend ways to help your child to avoid fainting triggers and may provide home strategies to prevent fainting. These may include having your child: Drink additional fluids if he or she is exposed to a possible trigger. Add more salt to his or her diet. Sit or lie down if he or she has warning signs of an oncoming episode. Perform certain exercises. Wear compression stockings. If your child's fainting spells continue, he or she may be given medicines to help reduce further episodes of fainting. In some cases, surgery to place a pacemaker is done, but this is rare. Follow these instructions at home: Eating and drinking Have your child eat regular meals and avoid skipping meals. Have your child drink enough fluid to keep his or her urine clear or pale yellow. Have your child avoid caffeine. Increase salt in your child's diet as told by your child's health care provider. Lifestyle Have your child avoid hot tubs and saunas. Try to make sure that your child gets enough sleep at night. General instructions Teach your child to identify the warning signs of vasovagal syncope. Have your child sit or lie down at the first warning sign of a fainting spell. If sitting, your child should put his or her head down between his or her legs. If lying down, your child should swing his or her legs up in the air to increase blood flow to the brain. Tell your child to avoid prolonged standing. If your child has to stand for a long time, he or she should do movements such as: ?Crossing his or her legs. ?Flexing and stretching his or her leg muscles. ?Squatting. ?Moving his or her legs. Give aija-waa-asqaruc and prescription medicines only as told by your child's health care provider. Keep all follow-up visits as told by your child's health care provider. This is important. Get help right away if: Your child faints. Your child hits his or her head or is injured after fainting. Your child has chest pain or shortness of breath. Your child has a racing or irregular heartbeat (palpitations). Summary Syncope, also called fainting or passing out, is a temporary loss of consciousness. This condition is caused by a sudden decrease in blood pressure and heart rate, usually in responseto a trigger, such as pain, fear, or illness. Most cases of this condition do not require treatment. This information is not intended to replace advice given to you by your health care provider. Make sure you discuss any questions you have with your health care provider. Document Released: 01/13/2009 Document Revised: 03/19/2018 Document Reviewed: 05/12/2017 [employer] Patient Education 2020 [employer]. Follow Up Care 07/26/2022 11:32:57 With:Sara Vick Address: [address] [place] [phone]- Business (1) When: Unknown Comments:Call for followup appointment 7-10 days With:Josias RUFF, CARLOS Thacker Address: [address] [place] [phone]- When:2 to 4 weeks [facility]04-09-2023 Evaluation + Plan noteExtracted from: Title:Discharge Note Author:Evert SALTER Date:07/27/22 Discharge To, Anticipated II - Home with responsible caregiver Discharge Diet(s): Fat Modified- Low cholesterol (07/27/22 15:18:00) Prescriptions aspirin 81 mg Oral EC Tab, 81 mg= 1 tab(s), Oral, Daily Home Albuterol (Eqv-Ventolin HFA) 90 mcg/inh inhalation aerosol, 2 puff(s), Inhalation, q6hr, PRN alendronate 70 mg Tab, 70 mg= 1 tab(s), Oral, qWeek cefadroxil 500 mg Cap, 500 mg= 1 cap(s), Oral, q12hr cyanocobalamin 1000 mcg/mL Inj, 1000 mcg, IntraMuscular, qMonth furosemide 20 mg Tab, See Instructions gabapentin 600 mg Tab, 600 mg= 1 tab(s), Oral, BID levothyroxine 125 mcg (0.125 mg) oral capsule, 125 mcg= 1 cap(s), Oral, Daily losartan 100 mg Tab, 100 mg= 1 tab(s), Oral, Daily Mobic 15 mg Tab Pantoprazole [address] Tab, 40 mg= 1 tab(s), Oral, Daily tiZANidine 4 mg Tab, 8 mg= 2 tab(s), Oral, q8hr, PRN Tylenol 325 mg Tab, 650 mg= 2 tab(s), Oral, q4hr, PRN Vitamin D3 1000 intl units oral tablet, 1000 International_Unit= 1 tab(s), Oral, Daily With When Contact Information Sara Vick [address] [facility] [place] [address]- Business (1) Additional Instructions: Call for followup appointment 7-10 days Josias RUFF, CARLOS Thacker Within 2 to 4 weeks [address] [place] [address]- Additional Instructions: Near-Syncope Vasovagal Syncope, Pediatric Extracted from: Title:Consult Note- Neurology Author:Smita Ramos RN Date:07/27/22 ASSESSMENT: 1. Near syncope (not full syncope), seemingly vasovagal, with associated tremulousness (and nausea) or convulsive component. Triggered by act of bowel movement (Valsalva). Do not suspect cerebrovascular cause or seizure related cause. 2. CT head reveals a mall focal hypodensity of the left frontal white matter adjacent to the head of the caudate. This could represent a chronic ischemic infarction. Low suspicion that it is acute or subacute. It might bottom turning lathe turner to just be some focal white matter change. LDL 91. PLAN: 1. MRI brain without contrast. If it reveals any cerebrovascular disease then aspirin 81 mg daily should be started and there should be consideration for the remainder of the stroke work-up, including checking A1c, echocardiogram, etc. 2. MRA of head 1. Postural dizziness with presyncope (R42: Dizziness and giddiness) 2. Hypertension (I10: Essential (primary) hypertension) 3. hypothroid (E03.9: Hypothyroidism, unspecified) 4. MARIE (iron deficiency anemia) (D50.9: Iron deficiency anemia, unspecified) 5. Encounter for management of wound VAC (Z46.89: Encounter for fitting and adjustment of other specified devices) 6. Osteoarthritis (M19.90: Unspecified osteoarthritis, unspecified site) 7. Morbid obesity (E66.01: Morbid (severe) obesity due to excess calories) Dislocation, hip (S73.006A: Unspecified dislocation of unspecified hip, initial encounter) Extracted from: Title:Admission H & P Author:Pat SALTER Date:07/26/22 PLAN: 1. Postural dizziness with presyncope (R42: Dizziness and giddiness) Near syncope but no LOC. No fall. No blood thinners. ?seizure, vs vasovagal vs TIA/CVA -CT brain which showed 1.2 cm of hypoattenuation of the periventricular white matter of the left front lobe ??? chronic vs subacute ischemia -Consult neurology -MRI/MRA brain pending. -Granddaughter ? possible seizure activity as episode was witnessed by her. ?? convulsions and slummed over -EEG pending. -Seizure precautions. Neuro checks. Telemetry -Allow permissive HTN today. -Trend Troponin levels 2. Hypertension (I10: Essential (primary) hypertension) Hold Lasix for now. Losartan. 3. hypothroid (E03.9: Hypothyroidism, unspecified) Levothyroxine. TSH/T4 pending 4. MARIE (iron deficiency anemia) (D50.9: Iron deficiency anemia, unspecified) -Controlled. Hgb on admission stable. 5. Encounter for management of wound VAC (Z46.89: Encounter for fitting and adjustment of other specified devices) recent right foot surgery in [place] w/podiatry secondary to non healing food wound. Currently has wound vac intact to this operative site. 6. Osteoarthritis (M19.90: Unspecified osteoarthritis, unspecified site) osteoarthritis status post left hip replacement Has chronic back pain. 7. Morbid obesity (E66.01: Morbid (severe) obesity due to excess calories) -BMI 70.73 -[employer] on diet, exercise, weight loss and lifestyle modifications DVT Prophylaxis: SCDs. Disposition: Observation status will likely require <2 midnight stays for further work up and treatment of above. Orders: acetaminophen, 650 mg = 2 tab(s), Tab, Oral, q6hr PRN Pain, Routine, Start date 07/26/22 15:39:00 EDT Al hydroxide/Mg hydroxide/simethicone, 30 mL, Susp-Oral, Oral, q6hr PRN Indigestion, STAT, Start date 07/26/22 15:39:00 EDT hydrALAZINE, 10 mg = 0.5 mL, Injection, IV Push, q6hr PRN Other (see comment), Routine, Start date 07/26/22 15:39:00 EDT ibuprofen, 800 mg = 1 tab(s), Tab, Oral, TID PRN Pain, Routine, Start date 07/26/22 15:39:00 EDT lorazepam, 1 mg = 0.5 mL, Injection, IV Push, Once PRN Other (see comment), Routine, Start date 07/26/22 16:59:00 EDT, 07/26/22 16:59:00 EDT Sodium Chloride 0.9% intravenous solution 1,000 mL, 1,000 mL, IV, 75 mL/hr, for 1 dose(s), Stop date 07/27/22 4:56:00 EDT, Routine, Start date 07/26/22 15:39:00 EDT, 13.3 hour(s), Total volume (mL): 1,000, 211 kg, 3.18, m2 Ambulate with Assistance Below the Knee Intermittent Pneumatic Compression Device Cardiac Monitoring Communication Order Communication Order Physician to Nursing Consult to Neurology Digital Signage Comment Education Fall Risk EEG Evaluate Need For Continued Telemetry HgbA1c Intake and Output Lipid Panel MRA Head w/o Contrast MRI Brain w/ + w/o Contrast Notify Provider Vital Signs Notify Provider Vital Signs Occupational Therapy Evaluate Patient, Develop a Plan of Care and Implement Plan Physical Therapy Evaluate Patient, Develop a Plan of Care and Implement Plan Precautions Precautions Pulse Oximetry Regular Diet Resuscitation Status - Full Stroke Communication Stroke Quality Measures Troponin 3 Hr. Troponin 6 Hr. Troponin 9 Hr. TSH With T4fr Reflex UA With Cult Reflex Vital Signs Weight Extracted from: Title:ED Note Author:Yaritza Cedeño PA-C Anil e:07/26/22 1. Near syncope (R55: Syncop e and collapse) 2. Convulsion (R56.9: Unspecified convulsions) Orders: oxycodone, 5 mg = 1 tab(s), Tab, Oral, Once, Stop date 07/26/22 13:55:00 EDT, STAT, Start date 07/26/22 13:55:00 EDT, 07/26/22 13:55:00 EDT Sodium Chloride 0.9% intravenous solution 1,000 mL, 1,000 mL, IV, bolus, STAT, Start date 07/26/22 12:31:00 EDT, Total volume (mL): 1,000, Bolus Dose: 1,000 mL, 211 kg, 3.18, m2 Automated Diff Basic Metabolic Panel CBC w/ Auto Diff CT Head or Brain w/o Contrast ED Cardiac Monitoring ED Physician consult Hospitalist for continued care eGFR Magnesium Level Oxygen Saturation Oxygen Therapy Saline Lock Insert Troponin 0 Hr. XR Chest Single View 71-year-old female presents to the ED with complaint of near syncopal event, Valium for concern for convulsions and possible seizure-like activity, second episode. In the ED patient is afebrile, vital signs are stable, no acute distress. Reports that she is back to baseline at this time. Labs reviewed and noted, leukocytosis of 14.6, otherwise essentially unremarkable. EKG shows no acute ST elevation or depression. NIH stroke scale of 0. CT head does show small area of concern for subacute ischemic event versus chronic ischemia versus encephalomalacia. Recommends MRI for further evaluation. Due to the patient's presentation, second episode of this occurrence, and the abnormal CT findings I do recommend admission to the medicine team for further evaluation. Patient and hospitalist are agreeable to plan. Diagnostic Tests Pending * HgbA1c 07/27/22 [facility]04-08-2023 [facility] SpringfieldComment on above:Result Comment: Electronically Signed By: Rachel SALTER\.br\Date and Time Signed: 07/26/22 17:03 EDT\.br\Electronically Co- Signed By: Francisco Alcazar MD\.br\Date and Time Co-Signed: 07/26/22 17:46 EDT 05-02-2022 Evaluation note* Encounter Date Diagnosis Assessment Notes Treatment Notes Treatment Clinical Notes Apr, Lumbar radiculopathy (ICD-10 - M54.16) 71 year old female here for follow up status post bilateral L5 transforaminal epidural steroid injection under fluoroscopic guidance. Patient reports 60-70% pain relief as well as improved walking, standing and daily functions following procedure. She voices continued complaints of low back pain today. She notes minimal intermittent radiation down bilateral lower extremities however she feels this is tolerable at this time. Overall, she appears to be doing well. I recommend she increase her activities as tolerated. She is counseled against any excessive bending or twisting. She is advised to call the office if their pain returns. Apr, Sacroiliitis (ICD-10 - M46.1) Consider SI joint injection in the future if needed Apr, Lumbosacral spondylosis (ICD-10 - M47.817) Consider lumbar facet medial branch nerve blocks in the future if needed Apr, Chronic pain (ICD-10 - G89.29) Follow up as needed. Apr, Lumbar degenerative disc disease (ICD-10 - M51.36) Continue with current treatment plan. Apr, Miriam Mckeon has an open sore on right ankle which she states she is [facility] up [facility]. I do not recommend futher injections until this is healed to prevent further infection or complication. Her pain appears to be stable at this time. She is encouraged to call the office if her pain increases in the future. [employer] Other [phone] NotePROCEDURE: XR FOOT RT MIN 3 VIEWS, XR ANKLE RT MIN 3 VIEWS HISTORY: Pain in right foot ; follow-up lateral right foot ulcer COMPARISON: XR foot right 10/07/2021, XR ankle right 03/31/2022 FINDINGS: BONES:Prior osteotomy and bone staple repair of the first toe proximal phalanx and screw repair of the first metatarsal. Suspect remote fracture and healing of the third metatarsal. Surgical resection of the head of the second proximal phalanx versus remote trauma. SOFT TISSUES:Mild soft tissue swelling lateral to the head of the fifth metatarsal. EFFUSION:None visible. OTHER: Negative. IMPRESSION: 1. Stable surgical changes and sequela of remote trauma. 2. Mild soft tissue swelling lateral to the head of the fifth metatarsal. No convincing underlying bone abnormality to suggest osteomyelitis. Electronically authenticated by: JULIO LOBATO Date: 2022-04-23 13:00[facility]01-04[facility] NotePROCEDURE: XR FOOT RT MIN 3 VIEWS, XR ANKLE RT MIN 3 VIEWS HISTORY: Pain in right foot ; follow-up lateral right foot ulcer COMPARISON: XR foot right 10/07/2021, XR ankle right 03/31/2022 FINDINGS: BONES:Prior osteotomy and bone staple repair of the first toe proximal phalanx and screw repair of the first metatarsal. Suspect remote fracture and healing of the third metatarsal. Surgical resection of the head of the second proximal phalanx versus remote trauma. SOFT TISSUES:Mild soft tissue swelling lateral to the head of the fifth metatarsal. EFFUSION:None visible. OTHER: Negative. IMPRESSION: 1. Stable surgical changes and sequela of remote trauma. 2. Mild soft tissue swelling lateral to the head of the fifth metatarsal. No convincing underlying bone abnormality to suggest osteomyelitis. Electronically authenticated by: JULIO LOBATO Date: 2022-04-23 13:00[facility]12-12-2022 NotePROCEDURE: XR ANKLE RT MIN 3 VIEWS COMPARISON: None. HISTORY: Pain of right ankle joint FINDINGS: BONES:No acute fracture or dislocation. No focal lytic or sclerotic changes. Mild to moderate enthesopathic spurring of the calcaneus. Degenerative changes with joint space narrowing and marginal osteophyte formation SOFT TISSUES:Soft tissue calcifications and surgical clips. Defect along the lateral ankle EFFUSION:None visible. OTHER: Negative. IMPRESSION: Soft tissue injury No acute fracture or plain film evidence of osteomyelitis Electronically authenticated by: ALFRED UMAÑA Date: 2022-03-31 18:19[id number] [facility] Discharge instructions Patient Education 03/08/2022 17:44:27 How to Use a Knee Immobilizer How to Use a Knee Immobilizer A knee immobilizer is used to support and protect an injured or painful knee. You may also have to wear it after knee surgery. A knee immobilizer keeps your knee from moving or bending while it is healing. Wear and remove your knee immobilizer only as told by your health care provider. In general, your immobilizer should: Have straps, hooks, or tapes that fasten snugly around your leg. Not feel too tight or too loose. What are the risks? Generally, knee immobilizers are safe to wear. However, problems may occur, including: Skin irritation that may lead to infection. Making your condition worse if you wear the immobilizer in the wrong way. How to use a knee immobilizer Different immobilizers will have different instructions for use. Your health care provider will show you or tell you: How to put on the immobilizer. How to adjust the immobilizer. When and how often to wear the immobilizer. How to remove the immobilizer. If you will need any assistive devices in addition to the immobilizer, such as crutches or a cane. Follow these instructions at home: While resting, raise (elevate) your leg above the level of your heart. Pillows can be used for support. Doing this reduces throbbing and helps with healing. Loosen the immobilizer if your toes tingle or if you notice other symptoms or signs that it is too tight, such as: ?Swelling. ?Numbness. ?Color change in your foot or ankle. ?More pain. Keep the immobilizer clean. If the immobilizer is not waterproof: ?Do not let it get wet. ?Cover it with a watertight covering when you take a bath or a shower. If your health care provider says that you may remove the immobilizer: ?Take it off before bathing. ?Check for any skin irritation. ?Use a towel to dry the area completely before you put the immobilizer back on. Contact a health care provider if: Your knee immobilizer breaks or needs to be replaced. You have more pain or swelling in your knee, foot, or ankle. Your knee immobilizer is not helping. Your knee immobilizer makes your knee pain worse. Summary A knee immobilizer is used to support and protect an injured or painful knee. You may also have to wear it after knee surgery. Generally, knee immobilizers are safe to wear. Different immobilizers will have different instructions for use. Follow the instructions from your health care provider. Contact your health care provider if you have more swelling or pain, if your knee immobilizer breaks, or if your knee immobilizer does not help your knee pain. This information is not intended to replace advice given to you by your health care provider. Make sure you discuss any questions you have with your health care provider. Document Released: 04/06/2006 Document Revised: 04/15/2017 Document Reviewed: 03/23/2017 [employer] Patient Education 2020 [employer] 03/08/2022 17:44:27 Hip Dislocation Hip Dislocation Hip dislocation happens when the ball at the top of the thigh bone (femur) moves out of its normal position in the socket of the pelvis. This happens because of a severe force to the hip or the area that surrounds it. The hip may dislocate in a forward or backward direction. Backward dislocation (posterior dislocation) is most common. Hip dislocation may involve a broken (fractured) bone. It can also involve damage to nerves, tissues that connect bones together (ligaments), or tissues that connect muscles to bones (tendons). Hip dislocation is an emergency that requires immediate medical treatment. What are the causes? This condition is often caused by a hard, direct hit to a bent knee that forces the femur back against the hip joint. This type of injury is most commonly caused by a car crash. This injury may also be caused by: Falls, especially falls from a height. Contact sports. Industrial accidents. What increases the risk? The following factors may make you more likely to dislocate your hip: Having an artificial (prosthetic) hip. Being overweight or obese. Lacking hip strength and flexibility. Having an abnormality of the hip joint that was present at (congenital). Having a condition that causes you to be at an increased risk for falling. Participating in contact sports. What are the signs or symptoms? Symptoms of this condition may include: Severe pain in the hip area. Pain may get worse when you move or when you try to use your hip to support (bear) your weight. Not being able to move the hip. The leg on the side of the dislocated hip appearing shorter than the other leg. Inward turning of the foot on the side of the dislocated hip. Loss of feeling in the lower leg, foot, or ankle. How is this diagnosed? This condition is diagnosed based on your medical history and a physical exam. You may: Have X-rays to confirm the diagnosis. Be examined by a health care provider who specializes in bone disorders (orthopedist). How is this treated? This condition is treated by moving the ball of your femur back into your hip socket (reduction). Your health care provider may perform a reduction by hand (closed reduction) as a procedure in a hospital setting or clinic. In some cases, you may need to have surgery to move the ball of your femur back into the hip socket (surgical reduction). Your health care provider may perform surgical reduction if: You have a fracture. You have bone fragments in your joint. You have damaged blood vessels or nerves. Manual reduction was not successful. After your reduction, treatment may include: Crutches. A splint. Physical therapy to help strengthen the muscles that hold your hip joint in place. Follow these instructions at home: Medicines Take [id number] and prescription medicines only as told by your health care provider. Ask your health care provider if the medicine prescribed to you: ?Requires you to avoid driving or using heavy machinery. ?Can cause constipation. You may need to take actions to prevent or treat constipation, such as: ?Drink enough fluid to keep your urine pale yellow. ?Take [id number] or prescription medicines. ?Eat foods that are high in fiber, such as beans, whole grains, and fresh fruits and vegetables. ?Limit foods that are high in fat and processed sugars, such as fried or sweet foods. If you have a splint: Do not put pressure on any part of the splint until it is fully hardened. This may take several hours. Wear the splint as told by your health care provider. Remove it only as told by your health care provider. Loosen the splint if your toes tingle, become numb, or turn cold and blue. Keep the splint clean and dry. Check the skin around it every day. Tell your health care provider about any concerns. Bathing If the splint is not waterproof: ?Do not let it get wet. ?Cover it with a watertight covering when you take a bath or shower. Do not take baths, swim, or use a hot tub until your health care provider approves. Ask your healthcare provider if you may take showers. You may only be allowed to take sponge baths. Managing pain, stiffness, and swelling If directed, put ice on the injured area: ?If you have a removable splint, remove it as told by your health care provider. ?Put ice in a plastic bag. ?Place a towel between your skin and the bag or the splint and the bag. ?Leave the ice on for 20 minutes, 2 3 times a day. Wear compression stockings or wraps as told by your health care provider. Move your toes often to reduce stiffness and swelling. Activity Do not use your hip to bear weight until your health care provider says that you can. Use crutches or a walker as told by your health care provider. Do not lift anything that is heavier than 10 lb (4.5 kg), or the limit that you are told, until your health care provider says that it is safe. Return to your normal activities as told by your health care provider. Ask your health care provider what activities are safe for you. If physical therapy was prescribed, do exercises as told by your health care provider. Driving Ask your health care provider when it is safe to drive if you have a splint on your hip. Do not drive for 24 hours if you were given a sedative. General instructions Do not use any products that contain nicotine or tobacco, such as cigarettes, e- cigarettes, and chewing tobacco. These can delay bone healing. If you need help quitting, ask your health care provider. Keep all follow-up visits as told by your health care provider. This is important. Contact a health care provider if you have: Pain that gets worse or does not get better with medicine. Swelling or red skin on your hip area or your leg. A tingling sensation in any part of your hip, leg, or foot. Get help right away if you: Feel like your hip has dislocated again. Have severe pain in your hip or groin. Have numbness or weakness in your leg. Cannot move any part of your hip or leg. If you have symptoms of a hip dislocation, do not wait to see if the symptoms will go away. Get medical help right away. Call your local emergency services (911 in the [place] Do not drive yourself [facility]. Summary Hip dislocation happens when the ball at the top of the thigh bone (femur) moves out of its normal position in the socket of the pelvis. This condition is often caused by a hard, direct hit to a bent knee that forces the femur back against the hip joint. This condition is treated by moving the ball of your femur back into your hip socket (reduction). Hip dislocation is corrected by closed reduction or by surgery. This information is not intended to replace advice given to you by your health care provider. Make sure you discuss any questions you have with your health care provider. Document Released: 12/30/2001 Document Revised: 12/29/2018 Document Reviewed: 12/30/2018 [employer] Patient Education 2020 [employer]. Follow Up Care 03/08/2022 13:37:46 With:Sorin DICKERSON Address: [address] [place] [id number] Business (1) When:03/11/2022 17:44:09 Comments:Call to establish follow-up care. Wear brace until follow-up with orthopedic surgery. With:Sara Vick Address: [address] [place] [address] [place] [phone]- Business (1) When:03/11/2022 17:43:29 Comments:Call the office of your primary care doctor to arrange for follow-up within the above-stated timeframe. Follow-up with your primary care doctor about this ED visit. You should review your labs, imaging, and diagnoses from this ED visit with your primary care physician. If you were prescribed medications you should discuss possible side-effects and drug interactions with your pharmacist. Call 911 or go to the nearest Emergency Department if you develop any new or worsening symptoms. [facility]11-19-2022 Evaluation + Plan noteExtracted from: Title:ED Note Author:Wm Nagy DO Date:05/08/21 Dislocation, hip (S73.006A: Unspecified dislocation of unspecified hip, initial encounter) Ordered: acetaminophen-hydrocodone, 1 tab(s), Oral, q4hr for pain, 12 tab(s), Refill(s) 0, [facility]/pharmacy #[id number], 172, cm, 03/08/22 13:49:00 EST, Height/Length Dosing, 103.6, kg, 03/08/22 13:49:00 EST, Weight Dosing Orders: morphine, 4 mg = 2 mL, Injection, IV Push, Once, Stop date 03/08/22 14:14:00 EST, STAT, Start date 03/08/22 14:14:00 EST, 03/08/22 14:14:00 EST ondansetron, 4 mg = 2 mL, Injection, IV Push, Once, Stop date 03/08/22 14:14:00 EST, STAT, Start date 03/08/22 14:14:00 EST, 03/08/22 14:14:00 EST propofol, 100 mg = 10 mL, Emulsion, IV, Once, Stop date 03/08/22 15:34:00 EST, STAT, Start date 03/08/22 15:34:00 EST, 03/08/22 15:34:00 EST Sodium Chloride 0.9% intravenous solution, Soln-IV, Misc, Once, Stop date 03/08/22 15:38:30 EST, Physician Stop, 03/08/22 15:38:30 EST Sodium Chloride 0.9% intravenous solution, 1,000 mL, IV, Stop date 03/08/22 15:40:00 EST, Start date 03/08/22 15:40:00 EST Capnography XR Hip 2-3 Views Left + Pelvis XR Hip 2-3 Views Left + Pelvis [facility]11-18-2022 Evaluation note* Encounter Date Diagnosis Assessment Notes Treatment Notes Treatment Clinical Notes Feb, Chronic pain (ICD-10 - G89.29) Follow up after procedure. Feb, Lumbar radiculopathy (ICD-10 - M54.16) 71 year old female presents with complaints of low back pain with radiation down bilateral lower extremities to the feet. She states pain started 5-6 months ago with no known inciting trauma. Prior to examining the patient I reviewed recent progress notes from the refering provider, Dr. Baker. I independently reviewed her recent lumbar spine MRI which shows extensive hardware, a disc bulge at L5-S1 and advanced arthritis. History, physical examination and available images are consistent with lumbar degenerative disc disease, lumbar radiculopathy, sacroiliitis lumbosacral spondylosis. Anatomy of spine discussed in detail with patient in regards to patients condition. Discussed with patient different treatment options, patient is a candidate for an L5, S1 transforaminal epidural steroid injection bilaterally. Risks and benefits of procedure explained to patient; patient verbalizes understanding. Feb, Lumbar degenerative disc disease (ICD-10 - M51.36) Stable, proceed with treatment plan. Feb, Lumbosacral spondylosis (ICD-10 - M47.817) Consider lumbar facet medial branch nerve blocks in the future if needed Feb, Sacroiliitis (ICD-10 - M46.1) Consider SI joint injection in the future if needed Feb, Other Medical deci lidia making shows a new problem to me with further workup planned or suggested with the potential for extensive treatment options that were considered with the most applicable given this patient's situation as noted above. Treatment options considered include a combination of physical therapy approaches, pharmacologic management, and interventional procedures. Those most applicable to the patient were discussed at this time. Risk of complications and/or morbidity and mortality is high given that acute and chronic pain poses a threat to life and bodily function if undertreated, poorly treated or with failure to maintain adequate treatment and timely followup. Given the serious and fluctuating nature of pain with extensive consideration for whenever pain changes, there always remains the possibility of prolonged functional impairment requiring constant patient reassessment and high-level medical decision making. The amount and complexity of data reviewed is high given that patient labs, radiology reports, and other test were obtained, reviewed and summarized as applicable from the physician portal and/or outside medical records. Pertinent positive and negative findings were considered in medical decision-making. [employer] Other 06-20-2022 NotePROCEDURE: XR FOOT RT MIN 3 VIEWS HISTORY: Pain in third digit and, over a foot; third toe blister, erythema on dorsum of foot COMPARISON: None. FINDINGS: BONES:Bone staple within first proximal phalanx and 2 screws within first metatarsal consistent with prior surgical repair. Prior resection versus posttreatment changes involving head of the second proximal phalanx. Suspect old healed fractures of the second and third metatarsals. Moderate degenerative changes the first metatarsophalangeal joint. SOFT TISSUES:No visible soft tissue swelling. EFFUSION:None visible. OTHER: Negative. IMPRESSION: 1. Postsurgical changes, evidence remote healed trauma, and moderate degenerative joint disease. 2. No findings to account for patient's soft tissue abnormalities. Electronically authenticated by: JULIO LOBATO Date: 2021-10-07 11:44[facility] noteNo InformationNort [employer] Other Evaluation noteNo assessment information available [facility] Work Phone: Evaluation note* Diagnosis Pain in prosthetic joint, sequela- Primary [facility] - [facility]* Type Description Date Medical History DJD-spine Medical History HTN Medical History Hypothyroidism Medical History Right leg neuropathy-unclear the etiology Medical History Obesity Medical History Herpes Medical History Herniated disc w/ DJD of spine Medical History CVI Medical History pseudomonas aeruginosa Medical History c diff Surgical History cholecystectomy Surgical History Left hip replacement 10/2012 Surgical History mulitple venous interventions Surgical History mulitple podiatric procedures o n right foot Surgical History Rotator cuff surgery Surgical History Sclerotherapy right LE 02/2013 Surgical History Sclerotherapy right LE 02/2014 Surgical History right total knee arthroplasty 2 021 Surgical History back surgeries x5 [facility] gen kori gilman 2018 [employer] Other History general Narrative - Reported* Type Description Date Medical History DJD-spine Medical History HTN Medical History Hypothyroidism Medical History Right leg neuropathy-unclear the etiology Medical History Obesity Medical History Herpes Medical History Herniated disc w/ DJD of spine Medical History CVI Medical History pseudomonas aeruginosa Medical History c diff Surgical History cholecystectomy Surgical History Left hip replacement 10/2012 Surgical History mulitple venous interventions Surgical History mulitple podiatric procedures o n right foot Surgical History Rotator cuff surgery Surgical History Sclerotherapy right LE 02/2013 Surgical History Sclerotherapy right LE 02/2014 Surgical History right total knee arthroplasty 2 021 Surgical History back surgeries x5 [facility] gen boldendr gilman 2018 Hospitalization History see above [employer] Other Hospital course Narrative No data available for this section [facility] data available for this [facility] Advance Directives No Advanced Directives Records Found Directive Description Status Cardiopulmonary Resuscitation ADVANCED DIRECTIVE : CPR-Full Code Current and Verified Advance Directive Response Recorded Date/ Time Advance Directives No February 12, 2017 10:06am Advance Directive Response Recorded Date/ Time Advance Directives No February 12, 2017 11:06am Summary Purpose Family History No Family History Records Found Relationship Condition Age at Onset Recorded Date/T jessica father Pulmonary emphysema Unknown Not Specified Malignant neoplasm of breast Unknown brother Diabetes mellitus Unknown Chief Complaint and Reason for Visit Chief Complaint M17.11 Knee Pain Chief Complaint Knee Pain Post-Op R TKA Knee Pain Chief Complaint L hip Chief Complaint Back Pain Assessments No Assessments Information AvailableNo Assessments Information Available Reason for Referral Specialty Diagnoses / Procedures Referred By Contac t Referred To Contact Diagnoses Pain in prosthetic joint, sequela Procedures XR HIP WITH PELVIS LEFT Perfecto Burch MD [address] [place] [id number] Referral ID Status Reason Start Date Expiration Date V isits Requested Visits Authorized [id number] New Request 09/18/2022 10/13/2023 1 1 Specialty Diagnoses / Procedures Referred By Contac t Referred To Contact Diagnoses Pain in prosthetic joint, sequela Procedures XR KNEE LEFT 3 VIEWS Perfecto Burch MD [address] [place] [id number] Referral ID Status Reason Start Date Expiration Date V isits Requested Visits Authorized [id number] New Request 09/16/2022 10/11/2023 1 1 Additional Source Comments INFORMATION SOURCE (unrecogn ized section and content) DATE CREATED AUTHOR 10/14/2017 [facility] DATE CREATED AUTHOR AUTHOR'S ORGANIZ ATION 12/13/2017 [facility] DATE CREATED AUTHOR AUTHOR'S ORGANIZ ATION 07/10/2018 [place] [facility] DATE CREATED AUTHOR AUTHOR'S ORGANIZ ATION 02/25/2019 [facility] DATE CREATED AUTHOR AUTHOR'S ORGANIZ ATION 03/01/2022 [facility]ical Specialist DATE CREATED AUTHOR AUTHOR'S ORGANIZ ATION 07/26/2022 [facility] DATE CREATED AUTHOR AUTHOR'S ORGANIZ ATION 09/27/2022 [facility] pital DATE CREATED AUTHOR AUTHOR'S ORGANIZ ATION 09/27/2022 [facility] DATE CREATED AUTHOR AUTHOR'S ORGANIZ ATION 11/26/2022 [place] [facility] DATE CREATED AUTHOR AUTHOR'S ORGANIZ ATION 04/25/2023 [facility] REASON FOR VISIT (unrecogniz ed section and content) Specialty Diagnoses / Procedures Referred By Contac t Referred To Contact Diagnoses Pain in prosthetic joint, sequela Procedures XR HIP WITH PELVIS LEFT Perfecto Burch MD [address] [place] [address] Referral ID Status Reason Start Date Expiration Date V isits Requested Visits Authorized [id number] New Request 09/18/2022 10/13/2023 1 1 Reason Comments Pain New Patient Patient Care team informatio n (unrecognized section and content) Team Status: Active Member Role Status Dates Sara Vick MD Primary Care Provider Active Team Status: Inactive Member Role Status Dates Sara Vick MD Primary Care Provider, Attending Pr ashanti 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 Relationship Specialty Start Date End Date Sara Vick MD [address] [facility] [place] [address] PCP - General Family Medicine 04/09/22 [employer] Relationship Specialty Start Date End Date Sara Vick MD [address] [place] [address] PCP - General Family Medicine 04/09/22 Team Status: Inactive Member Role Status Dates Sara Vick MD Primary Care Provider Active Larry Brown MD Attending Provider Active Goals (unrecognized section and content) Goals may be documented in a n alternate section FOR RECORDS PERTAINING TO PATIENTS WHO ARE OR HAVE BEEN ENROLLED IN A CHEMICAL DEPENDENCY/SUBSTANCEABUSE PROGRAM, SOME INFORMATION MAY BE OMITTED. This clinical summary was aggregated from multiple sources. Caution should be exercised in using it in the provision of clinical care. This summary normalizes information from multiple sources, and as a consequence, information in this document may materially change the coding, format and clinical context of patient data. In addition, data may be omitted in some cases. CLINICAL DECISIONS SHOULD BE BASED ON THE PRIMARY CLINICAL RECORDS. [employer] provides no warranty or guarantee of the accuracy or completeness of information in this document.
== END 2023-04-28 10:58 | disposition home or self-care (01) ==
LOC: WC 10:58
PROVIDERS: PCP Family Medicine; Visit Provider Podiatrist Foot & Ankle Surgery
DX: L89.512 Pressure ulcer of right ankle, stage 2 (principal)
CPT/HCPCS: 11042

== ENCOUNTER 2023-05-22 09:30 | Outpatient (OUT) | payer MEDICARE, SELFPAY | END 2023-05-22 09:31 | disposition home or self-care (01) | LOC: WC 09:30 | PROVIDERS: PCP Family Medicine; Visit Provider Podiatrist Foot & Ankle Surgery | DX: L89.512 Pressure ulcer of right ankle, stage 2 (principal); L97.512 Non-pressure chronic ulcer of other part of right foot with fat layer exposed | CPT/HCPCS: G0463 ==

== ENCOUNTER 2023-05-26 06:53 | Outpatient (OUT) | payer MEDICARE, SELFPAY ==
--- NOTE | 2023-05-26 06:55 | US_ITS ---
The [address] [address] Patient Name: KENAN CHASE MRN: [id number] date: 1950 Sex: F Assigned Patient Location: [place] Current Patient Location: [place] Accession/Order Number: [id number] Exam Date: 05/26/2023 06:56 Report Date: 05/26/2023 08:17 At the request of: SARA VICK Procedure: US renal bladder EXAM: US renal bladder HISTORY: . Dysuria R30.0 . COMPARISON: None. TECHNIQUE: Grayscale and color imaging was performed FINDINGS: Scanning of the right kidney demonstrates right kidney measure 9.1 x 4 x 5.1 cm. Color-flow is noted. No solid renal cortical masses or hydronephrosis is noted. Left kidney measures 9.3 x 4.5 x 4.3 cm. Color-flow is noted. No solid renal cortical masses or hydronephrosis is noted. Scanning of the bladder demonstrates a normal-appearing bladder. No masses are noted. Bladder volume was 123 cc. Post void residual was 33 cc. Left ureteral jet was identified. A right ureteral jet was not appreciated. US/US renal bladder IMPRESSION: 1. Normal-appearing kidneys. 2. Normal-appearing filled bladder. 3. Post void residual was 33 cc for a post void residual of 27%. Electronically authenticated by: ALFRED MORTENSEN Date: 05/26/2023 08:17
--- OUTSIDE RECORDS SUMMARY | 2023-05-26 06:55 | XMS_ITS | CCD ---
Author Name Unknown Address [address] [place] [address] Organization [facility] Care Team Providers Care 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 Name Role Phone Praveen Lopez Unavailable Unavailable BRUCE MATHEW Unavailable Unavailable SARA VICK Unavailable Unavailable PHYSICIAN, DEFAULT Unavailable Unavailable PHYSICIAN, DEFAULT Unavailable Unavailable SARA VICK Unavailable Unavailable Sara Vick~[phone] UNKNOWN Admitting Unavailable Sara Vick~[phone] UNKNOWN Attending Unavailable Sara Vick~[phone] UNKNOWN Referring Unavailable Sara Vick Primary Care Provider Trino Yoo Attending Provider Larry Brown Unavailable Sara Vick Primary Care Physician Lynn Salas Unavailable Unavailable Liam, Flor Unavailable Unavailable ADELE FLEMING Attending Unavailable SARA VICK Primary Care Unavailable MD Sara Vick Primary Care Provider [phone] MD Sara Vick Attending Provider DEEPALI [...] PETER D Attending Unavailable HOY ., DR RUZI Primary Care Unavailable WEST, DR ALFRED [employer] Consulting Unavailable WEST, DR ALFRED Deal Admitting [...] BURCH Referring Unavailable PERFECTO BURCH Attending Unavailable SARA VICK Primary Care Unavailable PERFECTO BURCH Attending Unavailable SARA VICK Primary Care Unavailable Sorin DICKERSON Referring Unavailable PERFECTO BURCH Attending Unavailable SARA VICK Primary Care Unavailable PERFECTO BURCH Referring Unavailable Sara Vick MD Primary Care Provider Julio Ferrara Consulting Unavailable Gunner Alcazarinder S Admitting Unavailable Francisco Alcazar S Attending Unavailable Julio Ferrara Consulting Unavailable Argyle, Julio Consulting Unavailable Argyle, Julio Consulting Unavailable Argyle, Julio Consulting Unavailable Argyle, Julio Consulting Unavailable Argyle, Julio Consulting Unavailable Argyle, Julio Consulting Unavailable Argyle, Julio Consulting Unavailable Wm Nagy Attending Unavailable Flavio Castillo Attending Unavailable Windnagel, Alley Admitting Unavailable Windnagel, Alley Attending Unavailable Windnasunita, Alley Referring Unavailable Dominique Shane Unavailable MD Sara Vick Primary Care Provider [phone] MD Larry Brown Attending Provider Kiran Kessler Unavailable [phone] HAILEY Jansen Attending Provider MD Kiran Kessler Attending Provider Sara Vick Primary Care Unavailable Kiran Kessler Admitting UnavailKiran Carrero Attending Unavailabl e Sara Vick Attending Unavailable Sara Vick Admitting Unavailable Sara Vick Primary Care Unavailable Sara Vick Primary Care Unavailable Deepali Jansen Admitting Unavailable Deepali Jansen Attending Unavailable Stephanie, Larry S Admitting Unavailable Jacques Brownif S Attending Unavailable Sara Vick Primary Care Unavailable Sara Vick Primary Care Unavailable Stephanie, Larry S Admitting Unavailable Larry Brown S Attending Unavailable Unavailable Unavailable Unavailable Allergies Allergy Classification Reported Allergen(s) Allergy Type Date of Onset Reaction(s) Facility (1 source) [facility] Sulfonamides (Antibiotic); Translations: [SULFA (SULFONAMIDE ANTIBIOTICS)] Propensity to adverse reactions to drug (disorder) 07-17-19 07 [facility] [place] [facility] (3 sources) Sulfonamides (Antibiotic) Drug allergy (disorder) 08-02-19 10 [facility] Repository (4 sources) Sulfamethoxazole; Translations: [sulfamethoxazole ] Drug Allergy Cutaneous eruption (morphologic abnormality) [facility] Repository (2 sources) Sulfur; Translations: [Sulfur] Drug Allergy [facility] Repository (16 sources) Sulfacetamide Drug Allergy 09-19-19 23 Rash [place] Other (2 sources) metroNIDAZOLE Drug Allergy 09-19-19 23 Dyspepsia [facility] Medications Current Medications Medication Drug Class(es) Dates Sig (Normalized) Sig (Original) acetaminophen 325 mg oral tablet (3 sources) Start: 09-14-2019 take 2 tablets by mouth every four hours as needed for pain Tylenol 325 mg Tab 650 mg = 2 tab(s), Oral, q4hr, PRN Breakthrough Pain, Refills(s) 0 Start Date: 09/14/19 Status: Ordered Start: 06-18-2017 take 2 tablets by mo uth every four hours as needed for pain Tylenol Tablet 325 MG 2 tablet Tablet Oral Give 2 tablet by mouth every 4 hours as needed for take as needed for mild pain or fever 06/18/2017 20:15:00 acetaminophen 325 mg / HYDROcodone bitartrate 5 mg oral tablet (13 sources) Opioid Agonist Start: 05-18-2023 take 1 tablet by mouth once daily as needed HYDROcodone-Acetaminophen 5-325 MG 1 tablet as needed Orally once daily (*do not fill until 05/24/23) for 30 days G89.29 Chronic pain Apr, Active Start: 04-23-2023 take 1 tablet by donna th once daily as needed HYDROcodone-Acetaminophen 5-325 MG 1 tab let as needed Orally once daily (*do not fill until 04/23/22) for 30 days G89.29 Chronic pain Apr, Active Start: 03-25-2023 Hydrocodone-Ac etaminophen Active 1 TAB PO As Directed March 25, 2023 12:00am Start: 03-06-2023 take 1 tablet by donna th once daily as needed HYDROcodone-Acetaminophen 5-325 MG 1 tab let as needed Orally daily (*do not fill until 03/12/2023) for 30 days Feb, Active Start: 02-10-2023 take 1 tablet by donna th every twenty-four hours HYDROcodone-Acetaminophen 5-325 MG 1 tab let as needed Orally daily for 30 days G89.29 Chronic pain Jan, Active Start: 12-12-2022 take 1 tablet by donna th every twenty-four hours HYDROcodone-Acetaminophen 5-325 MG 1 tab let as needed Orally daily for 30 days Dec, Active Start: 03-08-2022 [place] 325 mg-5 mg oral tablet 1 tab(s), Oral, q4hr for pain, 12 tab(s), Refill(s) 0, [facility]/pharmacy #[id number], 172, cm, 03/08/22 13:49:00 EST, Height/Length [...] Ordered alendronic acid 70 mg oral tablet (17 sources) Bisphosphonate Start: 07-08-2022 alendronate 70 MG tablet take 1 tablet by mouth once damion y Alendronate Sodium 70 MG 1 tablet 30 minutes before the first food, beverage or medicine of the day with plain water Orally Active aspirin 81 mg delayed release oral tablet (18 sources) Platelet Aggregation Inhibitor, Nonsteroidal Anti-inflammatory Drug Start: 07-27-2022 take 1 tablet by mouth once daily aspirin 81 mg Oral EC Tab 81 mg = 1 tab(s), Oral, Daily, # 30 tab(s), Refills(s) 0, Pharmacy: [facility]/pharmacy #[id number], 172.7, cm, 07/26/22 11:43:00 EDT, Height/Length [...] 06/18/2017 20:15:00 cholecalciferol 0.025 mg oral capsule (20 sources) Vitamin D Start: 04-24-2020 take 1 [...] supplement 06/19/2017 9:00:00 take 1 capsule by [facility] every twenty-four hours Vitamin D3 50 MCG (2000 UT) 1 capsule Orally Once a day Active Collagenase 250 UNIT/GM (11 sources) Collagenase 250 UNIT/GM 1 application Externally [...] 06/19/2017 9:00:00 Diff-Stat Capsule (1 source) Start: 018 take 1 capsule by mouth once daily Diff-Stat Capsule 1 capsule Capsule Oral Give 1 capsule orally one time a day for Prophylatic 06/19/2017 9:00:00 esomeprazole 40 mg delayed release oral capsule (14 sources) Proton Pump Inhibitor take 1 capsule by mouth every twenty-four hours NexIUM 40 MG 1 capsule Orally Once a day Active gabapentin 600 mg oral tablet (20 sources) Anti-epileptic Agent Start: 021 take 1200 mg by mouth twice daily Gabapentin Active 1200 MG PO Twice daily April 24, 2020 12:00am Start: 06-19-2017 take 1 tablet by donna th twice daily gabapentin 600 mg Tab 600 mg = 1 tab(s), Oral, BID Start Date: 06/26/17 Status: Ordered hydrOXYzine pamoate 25 mg oral capsule (3 sources) Antihistamine Start: 05-08-2020 take 1 capsule by mouth every six hours Hydroxyzine Pamoate (Vistaril) 25 mg capsule Active 25 MG PO Q6H May 08, 2020 12:00am lidocaine 0.05 mg/mg medicated patch (10 sources) Antiarrhythmic, Amide Local Anesthetic Start: 12-12-2022 Lidoderm 5 % 1 patch remove after 12 hours Externally Once a day for 30 days Nov, Active losartan potassium 100 mg oral tablet (20 sources) Angiotensin 2 Receptor Mike Start: 06-19-2017 take 100 mg by mouth once daily Losartan Active 100 MG PO Daily April 24, 2020 12:00am Losartan Potassi um Active meloxicam 15 mg oral tablet [...] Start: 06-26-2017 take 1 capsule by mo [facility] once daily levothyroxine 125 mcg (0.125 mg) [...] day Active tiZANidine 4 mg oral tablet (18 sources) Central alpha-2 Adrenergic Agonist Start: 07-26-2022 take 2 tablets by mouth every eight hours as needed for muscle spasms tiZANidine 4 mg Tab 8 mg = 2 tab(s), Oral, q8hr, PRN Spasm, Refills(s) 0 Start Date: 07/26/22 Status: Ordered Start: 06-19-2017 take 2 tablets by [facility] twice daily Zanaflex Tablet 4 MG 2 tablet Tablet Oral GIVE 2 TABS (8MG) BY MOUTH TWICE DAILY FOR MUSCLOSKELETAL 06/19/2017 9:00:00 take 1 capsule by [facility] every eight hours tiZANidine HCl 4 MG [...] 20:30:00 vitamin b12 1 mg/ml injectable solution (20 sources) Vitamin B12 Start: 04-24-2020 inject 1000 [...] / oxyCODONE hydrochloride 5 mg oral tablet (4 sources) Opioid Agonist Start: 05-08-2020 End: 09-10-2022 take 1 tablet by mouth every four to six hours Oxycodone-Acetamino phen (Percocet) 5-325 mg tablet Discontinued 1 - 2 TAB PO EVERY 4-6 HOURS 40 7 May 08, 2020 September 10, 2022 10:49am Start: 06-18-2017 take 1 tablet by [facility] every six hours as needed for pain [...] 06/18/2017 20:15:00 ciprofloxacin 500 mg oral tablet (3 sources) Quinolone Antimicrobial Start: 05-07-2020 End: 09-10-2022 take 500 mg by mouth twice daily Ciprofloxacin Hcl Discontinued 500 MG PO Twice daily May 07, 2020 12:00am September 10, 2022 10:47am docusate sodium 100 mg oral capsule (3 sources) Start: 05-08-2020 End: 09-10-2022 take 1 [...] Status: Ordered ibuprofen 800 mg oral tablet (5 sources) Nonsteroidal Anti-inflammatory Drug Start: 04-24-2020 End: [...] deficiencies (2 sources) Cobalamin deficiency 09-14-2019 Episodic Open wounds of extremities (2 sources) Puncture wound without foreign body of right lesser toe(s) without damage to nail, initial encounter; Translations: [Unspecified open wound, right lower leg, initial encounter] Onset: 2 Episodic Osteoarthritis (19 sources) Osteoarthritis of right knee joint; Translations: [Unilateral primary osteoarthritis, right knee] Onset: 3 07-01-2013 Chronic Other aftercare (1 source) 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; Translations: [OTH CARPENTER/LABOR CURRENT DRUG THERAPY] Onset: 3 Episodic Other bone disease and musculoskeletal deformities (2 sources) 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 Other circulatory disease (1 source) Other specified symptoms and signs involving the circulatory and respiratory systems; Translations: [OTH SPEC SX SIGNS INVLV CIRC RS] Onset: 3 Episodic Other connective tissue disease (14 sources) History of right total knee replacement; Translations: [Presence of right artificial knee joint] Chronic Other connective tissue disease (3 sources) History of total knee arthroplasty; Translations: [...] Episodic Other diseases of veins and lymphatics (16 sources) Peripheral venous insufficiency; Translations: [Venous insufficiency (chronic) (peripheral)] 09-14-2019 Episodic Other diseases of veins and lymphatics (5 sources) Venous insufficiency (chronic) (peripheral); Translations: [VENOUS INSUFF CHRONIC PERIPHERAL] Onset: 3 Episodic Other diseases of veins and lymphatics (1 source) Other specified disorders of veins Episodic Other fractures (14 sources) Closed fracture of one rib; Translations: [Fracture of one rib, left side, initial encounter for closed fracture] Episodic Other nervous system disorders (14 sources) Chronic pain; Translations: [Other chronic pain] Chronic Other nervous system disorders (7 sources) Other chronic pain Chronic Other nervous [...] [Radiculopathy, lumbar region] Episodic Superficial injury; contusion (14 sources) Contusion of elbow; Translations: [Contusion of [...] fatigue; Translations: [OTHER FATIGUE] Onset: 05-24-2022 Episodic Other circulatory disease (4 sources) Hemorrhage, [...] Test Name Value Interpretation Reference Range Facility US arterial pvr rest Vito US arterial pvr rest LE [facility] [place] [address] Ultrasound Report Signed Patient: Leelee Cedillo MR#: [id number] 56 : 1950 Acct:[id number] Age/Sex: 72 / F ADM Date: 05/22/23 Loc: Room: Type: [employer] Attending Dr: Kiran Kessler MD Ordering Provider: Kiran Kessler MD Date of Service: 05/22/23 US/US arterial pvr rest LE: I70.213 Copies to: Kiran Kessler MD LOWER EXTREMITY SEGMENTAL ARTERIAL DOPSCAN (PVR) INDICATION: Leg pain PROCEDURE: Right arm blood pressure is 145 , left is 139 . Pressures throughout the right leg are 218 at the high thigh, at the 183 low thigh, 160 at the calf, 144 at the ankle using the posterior tibial artery, and 144 at the ankle using the dorsalis pedis artery with ankle- brachial index of 0.99 0.99 . Pressures throughout the left leg are 181 at the high thigh, at the 171 low thigh, 158 at the calf and 135 at the ankle using the posterior tibial artery, and 144 at the ankle using the dorsalis pedis artery with ankle-brachial index of 0.93 0.99 . Wave forms by plethysmography are normal. US/US arterial pvr rest LE IMPRESSION: NO HEMODYNAMICALLY SIGNIFICANT PERIPHERAL VASCULAR OCCLUSIVE DISEASE AT REST IN EITHER LOWER EXTREMITY. Impression dictated by: Drake Bates M.D.05/25/2023 10:58 AM Dictation Location: [place] [address] Tech: Katy Leone Transcribed By: LISBETH 05/25/23 1058 Dictated By: Drake Bates MD 05/25/23 1057 Signed By: 05/25/23 1058 Normal [facility] US venous duplex LE BIon US venous duplex LE BI [facility] Main [address] [address] Ultrasound Report Signed Patient: Leelee Cedillo MR#: [id number] 57 : 1950 Acct:[id number] Age/Sex: 72 / F ADM Date: 05/22/23 Loc: Room: Type: [employer] Attending Dr: Kiran Kessler MD Ordering Provider: Kiran Kessler MD Date of Service: 05/22/23 US/US venous duplex LE BI: I70.213,I83.813 Copies to: Kiran Kessler MD Bilateral lower extremity full functional venous duplex examination Indication for study: Painful varicose veins PROCEDURE: Color-flow duplex scanning is used to to interrogate the venous anatomy of both lower extremities. There is no evidence for deep vein thrombosis in either leg. Bilaterally the common femoral vein, femoral vein, and popliteal veins show good compressibility, color-flow, and augmentation. In the patient's right lower extremity there is greater than 5 seconds of reflux at the saphenofemoral junction emptying into collateral veins as the greater saphenous vein has previously been stripped. No significant doula incompetence is noted. The lesser saphenous vein also appears to been closed previously. In the patient's left lower extremity there is greater than 5 seconds of reflux in the saphenofemoral junction emptying into collaterals around a previously stripped greater saphenous vein. There is a isolated thigh varix noted which is 2 to 4 mm in diameter. The lesser saphenous vein is normal in size with no reflux. US/US venous duplex LE BI IMPRESSION: No evidence for deep vein thrombosis in either leg. There is been bilateral saphenous intervention. Post-rest also reflux into collaterals at the saphenofemoral junction. There is a solitary large varix in the left thigh noted which is 2 to 4 mm in diameter. Impression dictated by: rDake Bates M.D.05/25/2023 10:57 AM Dictation Location: [place] [address] Tech: Katy Leone Transcribed By: LISBETH 05/25/23 105 Dictated By: Drake Bates MD 05/25/23 105 Signed By: 05/25/23 1057 [facility] ED Note-Physicianon 11-26-19 ED Note-Physician [facility] Comment on above: Result Comment: Elec tronically Signed By: Sathya De La O PA-C\.br\Date and Time Signed: 11/22/22 14:13 EDT\.br\Electronically Co-Signed By: Flavio Castillo MD\.br\Date and Time Co-Signed: 11/25/22 13:23 EDT Consent for Treatmenton Consent for Treatment [id number]#1.00CD:[address] [facility] Discharge Instructionson Discharge Instructions [id number]#1.00CD:[address] [facility] ED Clinical Summaryon 2022 ED Clinical Summary [address] [facility] ED Patient Education Noteon 11-22-2022 ED Patient Education Note Normal [facility] ED Patient Summaryon 023 ED Patient Summary [facility] Neurology Forms- [facility] Neurology Forms- Text [id number]#1.00CD:127 [facility] EEGon 09-11-2022 EEG [facility] Comment on above: Result Comment: Elec tronically Signed By: Jonathan Powell DO\.br\Date and Time Signed: 09/11/22 10:41 EDT Consent for Treatmenton 08-19 Consent for Treatment [id number]#1.00CD:[address] [facility] Physician Orderon 09-03-2022 Physician Order [id number]#1.00CD:[address] [facility] VC CONSULT FOLLOWUPon 2022 VC CONSULT FOLLOWUP Patient: LEELEE CEDILLO Exam Date: 08/08/2022 : 1950 Gender:F Ordering : DR ALFRED UMAÑA M.D. Admission #: [id number] Family : Order #: [id number] CLICK HERE TO VIEW EXAM RADIOLOGY REPORT [...] Umaña MD on 08/08/2022 at 10:59 Normal [facility] VC EXT VENOUS LT LIMITEDon 0 08-08-2022 VC EXT VENOUS LT LIMITED Patient: LEELEE CEDILLO Exam Date: 08/08/2022 : 1950 Gender:F Ordering : DR ALFRED UMAÑA M.D. Admission #: [id number] Family : Order #: [id number] CLICK HERE TO VIEW EXAM RADIOLOGY REPORT [...] to thrombus *Exam performed in accordance with [facility] practice guidelines- Peripheral venous ultrasound, July 14, 2009. CONCLUSION: Post ablation occlusion of the treated superficial varicose vein. No deep vein thrombus Dictated by: Alfred Umaña MD on 08/08/2022 at 09:42 Approved by: Alfred Umaña MD on 08/08/2022 at 09:43 Normal [facility] Coding Summary.on 07-29-[address] [facility] Insurance Correspondenceon 0 07-29-2022 Insurance Correspondence [id number]#1.00CD:[address] [facility] Insurance Correspondence Off iceon 07-29-2022 Insurance Correspondence Office [id number]#1.00CD:[address] [facility] Discharge Instructionson Discharge Instructions [id number]#1.00CD:[address] [facility] [id number] 07-28-2022 HbA1c (Bld) [Mass fraction] 5.3 % Normal <=5.9 [facility] Comment on above: Performed By: #### 2 [id number], [id number], [id number] ####[facility] [address] [place] [address] Insurance Correspondenceon 0 07-28-2022 Insurance Correspondence [id number]#1.00CD:[address] [facility] C. diff by PCRon 07-27-2022 Clostridium difficile by PCR Negative Normal Negative [facility] Comment on above: Order Comment: Order added by Discern Expert. Result Comment: This test result should be correlated with clinical presentations and medical history by a healthcare provider to determine its clinical significance. Performed By: #### 3 [id number], [id number], [id number] ####[facility] [address] [place] [address] CDiff PCRon 07-27-2022 Cdiff Specimen Acceptable Acceptable Normal [facility] Comment on above: Performed By: #### 3 [id number], [id number], [id number] ####[facility] [address] [place] [address] Order Cancelled No, PCR to follow Normal [facility] Comment on above: Performed By: #### 3 [id number], [id number], [id number] ####[facility] [address] [place] [address] CHEMISTRYOrdered By: SYSTEM SYSTEM on 07-27-2022 Anion [...] Remisol Consultation Noteon 07-28-[address] [facility] Comment on above: Result Comment: Elec tronically Signed By: Smita Ramos RN\.br\Date and Time Signed: 07/27/22 07:14 EDT\.br\Electronically Co-Signed By: Jonathan Powell DO\.br\Date and Time Co-Signed: 07/27/22 10:23 EDT EMS Documentationon 07-28-[address] [facility] EMS Documentation Normal [facility] EMS Documentation Normal [facility] Enteric Panel by PCRon 07-27 C. coli+jejuni+upsali ensis DNA VIVIANA+non-probe Ql (Stl) Not detected Normal [facility] Comment on above: Result Comment: Test ing was performed utilizing reverse underwater welder (RT), polymerase chain reaction (PCR), and array [...] nulcleic acid test. Performed By: #### 3 [id number], [id number], [id number] ####[place] [address] [place] [address] E. coli stx1+stx2 genes VIVIANA+non-probe Ql (Stl) Negative Normal [facility] Comment on above: Performed By: #### 3 [id number], [id number], [id number] ####[place] [place] [address] Enteric Panel Intrl QC Pass Normal [facility] Comment on above: Result Comment: Test ing was performed utilizing reverse underwater welder (RT), polymerase chain reaction (PCR), and array [...] 1 and 2. Performed By: #### 3 [id number], [id number], [id number] ####[facility] [address] [place] [address] Norovirus genogroup I+II RNA VIVIANA+non-probe Ql (Stl) Not detected Normal [facility] Comment on above: Performed By: #### 3 [id number], [id number], [id number] ####[facility] [address] [place] [address] Rotavirus A RNA VIVIANA+non-probe Ql (Stl) Not detected Normal [facility] Comment on above: Performed By: #### 3 [id number], [id number], [id number] ####[facility] [address] [place] [address] S. enterica+bongori DNA VIVIANA+non-probe Ql (Stl) Not detected Normal [facility] Comment on above: Result Comment: This test result should be correlated with clinical presentations and medical history by a healthcare provider to determine its clinical significance. Performed By: #### 3 [id number], [id number], [id number] ####[facility] [address] [place], [place] [address] Shigella species+EIEC invasion plasmid antigen H ipaH gene VIVIANA+non-probe Ql (Stl) Not detected Normal [facility] Comment on above: Performed By: #### 3 [id number], [id number], [id number] ####[facility] [address] [place], [place] [address] V. cholerae+parahaemo lyticus+vulnificus DNA VIVIANA+non-probe Ql (Stl) Not detected Normal [facility] Comment on above: Performed By: #### 3 [id number], [id number], [id number] ####[place] [id number] Y. enterocolitica DNA VIVIANA+non-probe Ql (Stl) Not detected Normal [facility] Comment on above: Performed By: #### 3 [id number], [id number], [id number] ####[facility] [address] [place], [place] [address] Free T4on 07-27-2022 Free T4 [Mass/Vol] 1.91 ng/dL High 0.58-1.64 [facility] Comment on above: Order Comment: Free T4 added by Discern Rule due to a TSH result of <0.34 or >5.60. Performed By: #### 2 [id number], [id number], [id number], [id number], [id number], [id number] ####[place] [id number] HEMATOLOGYOrdered By: Tonya Martin on 07-27-2022 WBC corrected for nucl RBC Auto (Bld) [#/Vol] 7.8 E9/L Normal 4.0 - 11.0 E9/L [facility] HemeAutoSS Inpatient Clinical Summaryon 07-27-2022 Inpatient Clinical Summary Normal [facility] Inpatient Patient Summaryon 07-27-2022 Inpatient Patient Summary Normal [facility] Inpatient Patient Summary Normal [facility] Interdisciplinary Note - Oumar e Manageron 07-27-2022 Interdisciplinary Note - Data Entry Manager Normal [facility] Comment on above: Result Comment: Elec tronically Signed By: Tonya Matiasbr\Date and Time Signed: 07/27/22 12:04 EDT Interdisciplinary Note - Pipe n 07-27-2022 Interdisciplinary Note - OT Normal 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 Pt is able to safely perform bed <> chair transfers as she was doing prior to admission and has no further PT needs at this time. Normal [facility] Lipid Panelon 07-27-2022 Cholesterol in LDL [Mass/Vol] 91 mg/dL Normal <=129 [facility] [facility] Comment on above: Performed By: #### 2 214701, 3040621, 3723556, 6482530, 540887038, 44860986 ####[facility] [address] [place] [address] Cholesterol [Mass/Vol] 160 mg/dL Normal 120-200 [facility] Comment on above: Performed By: #### 2 410155, 2969398, 8006380, 4014115, 255711100, 51263394 ####[facility] [address] [place] [address] Cholesterol in HDL [Mass/Vol] 52 mg/dL Invalid Interpretation Code [facility] Comment on above: Result Comment: HDL > or equal to 60 mg/dL: Low cardiovascular riskHDL < 40 mg/dL : High cardiovascular risk Performed By: #### 2 728173, 8968185, 0994237, 7505105, 762463640, 23257559 ####[facility] [address] [place] [address] Cholesterol in VLDL [Mass/Vol] 17 mg/dL Normal 7-40 [facility] Comment on above: Performed By: #### 2 837783, 5097699, 4902301, 0273307, 599694695, 46110291 ####[facility] [address] [place] [address] Triglyceride [Mass/Vol] 83 mg/dL Normal <=149 [facility] Comment on above: Performed By: #### 2 153777, 2285037, 2489859, 3773601, 549569492, 93815973 ####[facility] [address] [place] [address] Lyteson 07-27-2022 Anion gap [Moles/Vol] 9 mmol/L Normal 6-16 [facility] Comment on above: Performed By: #### 2 206910, 6485751, 7419332, 9751763, 413268964, 84259422 ####[facility] [address] [place] [address] Chloride [Moles/Vol] 106 mmol/L Normal 101-111 [facility] Comment on above: Performed By: #### 2 589449, 4241734, 6366117, 5600703, 772577796, 24729130 ####[facility] [address] [place] [address] CO2 [Moles/Vol] 26 mmol/L Normal 21-31 [facility] Comment on above: Performed By: #### 2 271031, 5863349, 9606064, 9465213, 844703751, 28505446 ####[facility] [address] [place] [address] Potassium [Moles/Vol] 4.0 mmol/L Normal 3.5-5.3 [facility] Comment on above: Performed By: #### 2 530745, 4198705, 8732299, 2423227, 884596503, 06150909 ####[facility] [address] [place] [address] Sodium [Moles/Vol] 137 mmol/L Normal 135-145 [facility] Comment on above: Performed By: #### 2 796592, 2284297, 0370385, 7164946, 467752515, 34116262 ####[facility] [address] [place] [address] MRA Head w/o Contraston 04-0 MRA Head w/o Contrast Normal [facility] MRI Brain w/o Contraston MRI Brain w/o Contrast Normal [facility] Monitor Recordon 07-27-2022 Monitor Record [id number]#1.00CD:[address] [facility] Monitor Record [id number]#1.00CD:[address] [facility] Patient Education - Texton 0 07-27-2022 Patient Education - Text Normal [facility] RAD - MRI Screening Formon 0 07-27-2022 RAD - MRI Screening Form [id number]#1.00CD:[address] [facility] TSH With T4fr Reflexon 07-27 TSH Qn 0.16 m[IU]/L Low 0.34-5.60 [facility] Comment on above: Performed By: #### 2 444809, 7970811, 5575965, 0991257, 828432434, 01474296 ####[facility] [address] [place] [address] Troponin 9 Hr.on 07-27-2022 Troponin I.cardiac [Mass/Vol] 6.70 pg/mL Low 10.10-27.[address] [facility] Comment on above: Result Comment: The 95% CI (Confidence Interval) PPV (Positive Predictive Value) for myocardial infarction in females is 38 pg/mL, in males 51 pg/mL. The results should be used in conjunction with clinical conditions of myocardial infarction.([employer] High Sensitivity Troponin I Instructions For Use, Christy Larry, November 2017) Performed By: #### 1 5089594 ####[facility] [address] [place] [address] WBCon 07-27-2022 WBC corrected for nucl RBC Auto (Bld) [#/Vol] 7.8 E9/L Normal 4.0-11.0 [facility] Comment on above: Performed By: #### 2 171709, 0587840, 2785409, 6580403, 239380988, 78412412 ####[address] [place] [address] Auto Diffon 07-26-2022 Basophils/100 WBC (Bld) 0.5 % Normal 0.0-2.0 [facility] Comment on above: Order Comment: Order Added by Discern Expert. Performed By: #### 2 164648, 4285802, 8795063, 6317597, 62315794, 31804732 ####[address] [address] Basophils/Leukocyt es Auto (Bld) [Pure # fraction] 0.1 E9/L Normal 0.0-0.2 [facility] Comment on above: Order Comment: Order Added by Discern Expert. Performed By: #### 2 504793, 5850598, 3943142, 9200743, 25220977, 55585126 ####[address] [address] Eosinophils/100 WBC (Bld) 0.5 % Normal 0.0-8.0 [facility] Comment on above: Order Comment: Order Added by Discern Expert. Performed By: #### 2 631000, 5902738, 8604465, 7240595, 39078290, 14798448 ####[address] [address] Eosinophils/Leukoc ytes Auto (Bld) [Pure # fraction] 0.1 E9/L Normal 0.0-0.5 [facility] Comment on above: Order Comment: Order Added by Discern Expert. Performed By: #### 2 255516, 1384012, 6285806, 4588124, 10277518, 33092894 ####[address] [address] Lymphocytes/100 WBC (Bld) 14.5 % Normal 14.0-50.0 [facility] Comment on above: Order Comment: Order Added by Discern Expert. Performed By: #### 2 228035, 1376198, 6725522, 9641432, 22907868, 27616116 ####[address] [address] Lymphocytes/Leukoc ytes Auto (Bld) [Pure # fraction] 2.1 E9/L Normal 1.0-4.0 [facility] Comment on above: Order Comment: Order Added by Discern Expert. Performed By: #### 2 409505, 9312261, 1348443, 8244843, 35344411, 43952027 ####[address] [address] Monocytes/100 WBC (Bld) 6.5 % Normal 4.0-14.0 [facility] Comment on above: Order Comment: Order Added by Discern Expert. Performed By: #### 2 228945, 5324521, 1937520, 7781871, 19316269, 69770995 ####[address] [address] Monocytes/Leukocyt es Auto (Bld) [Pure # fraction] 0.9 E9/L Normal 0.2-1.0 [facility] Comment on above: Order Comment: Order Added by Discern Expert. Performed By: #### 2 009264, 2902064, 0729531, 4955341, 64844747, 83741343 ####[address] [address] Neutrophils/100 WBC (Bld) 78.0 % High 36.0-75.0 [facility] Comment on above: Order Comment: Order Added by Discern Expert. Performed By: #### 2 403593, 6801445, 9597008, 2164364, 76107652, 45657724 ####[address] [address] Neutrophils/Leukoc ytes Auto (Bld) [Pure # fraction] 11.4 E9/L High 2.0-7.5 [facility] Comment on above: Order Comment: Order Added by Discern Expert. Performed By: #### 2 249524, 0085283, 0078588, 1115261, 73565704, 92860591 ####[address] [place] [address] BMPon 07-26-2022 Creatinine [Mass/Vol] 0.8 mg/dL Normal 0.5-1.3 [facility] Comment on above: Performed By: #### 2 943313, 4007730, 9101872, 1334146, 37732166, 79133607 ####[facility] [address] [place] [address] Urea nitrogen [Mass/Vol] 11 mg/dL Normal 5-21 [facility] Comment on above: Performed By: #### 2 935926, 6951309, 6431480, 8643187, 90607635, 63779195 ####[facility] [address] [place] [address] Urea nitrogen/Creatinin e [Mass ratio] 14 No Units Normal 10-20 [facility] Comment on above: Performed By: #### 2 949764, 7574714, 8464758, 7753370, 64728013, 91279868 ####[facility] [address] [place] [address] Anion gap [Moles/Vol] 13 mmol/L Normal 6-16 [facility] Comment on above: Performed By: #### 2 543702, 5508828, 7691906, 8164492, 05519987, 21699938 ####[facility] [address] [place] [address] Calcium [Mass/Vol] 9.3 mg/dL Normal 8.9-11.1 [facility] Comment on above: Performed By: #### 2 467337, 9791425, 9234727, 2228661, 31635722, 10250127 ####[facility] [address] [place] [address] Chloride [Moles/Vol] 101 mmol/L Normal 101-111 [facility] Comment on above: Performed By: #### 2 052076, 0502160, 8001666, 2698112, 47381179, 56239988 ####[facility] [address] [place] [address] CO2 [Moles/Vol] 27 mmol/L Normal 21-31 [facility] Comment on above: Performed By: #### 2 636723, 0413885, 0264511, 9607496, 27623130, 35516164 ####[facility] [address] [place] [address] Glucose [Mass/Vol] 88 mg/dL Normal 55-199 [facility] Comment on above: Result Comment: If t his glucose result represents a fasting glucose, interpretation should refer to the following reference range: 55-99 mg/dL Performed By: #### 2 339185, 0616224, 9973017, 6421342, 17416966, 52489448 ####[facility] [address] [place] [address] Potassium [Moles/Vol] 3.6 mmol/L Normal 3.5-5.3 [facility] Comment on above: Performed By: #### 2 145008, 3993515, 5051853, 0984163, 90862987, 41476378 ####[facility] [address] [place] [address] Sodium [Moles/Vol] 137 mmol/L Normal 135-145 [facility] Comment on above: Performed By: #### 2 736122, 6233887, 0392267, 5746394, 34065175, 00603166 ####[facility] [address] [place] [address] CBC w/ Auto Diffon 3 Erythrocyte distribution width (RBC) [Ratio] 13.9 % Normal 10.9-14.2 [facility] Comment on above: Performed By: #### 2 119086, 5093246, 0063864, 1076740, 10277074, 51572114 ####[facility] [address] [place] [address] Hematocrit (Bld) [Volume fraction] 47.0 % High 34.0-46.0 [facility] Comment on above: Performed By: #### 2 725917, 4500195, 5537175, 0374216, 57156120, 45239558 ####[address] [address] Hemoglobin (Bld) [Mass/Vol] 15.3 g/dL Normal 12.0-16.0 [facility] Comment on above: Performed By: #### 2 072396, 3575984, 4027319, 1659769, 76406986, 86835752 ####[address] [address] MCH (RBC) [Entitic mass] 29.2 pg Normal 27.0-34.0 [facility] Comment on above: Performed By: #### 2 707875, 0538587, 1101548, 5576933, 12538507, 69129545 ####[address] [address] MCHC (RBC) [Mass/Vol] 32.7 g/dL Normal 31.4-36.0 [facility] Comment on above: Performed By: #### 2 688496, 1648886, 8998575, 9643319, 59597512, 88070797 ####[address] [address] MCV (RBC) [Entitic vol] 89.3 fL Normal 80.0-100.0 [facility] Comment on above: Performed By: #### 2 000798, 3602657, 1514807, 7624712, 90603360, 11367814 ####[address] [address] Platelet mean volume (Bld) [Entitic vol] 6.7 fL Normal 6.4-10.8 [facility] Comment on above: Performed By: #### 2 387030, 5305081, 4044631, 9437144, 53300804, 31845562 ####[address] [address] Platelets (Bld) [#/Vol] 324.0 E9/L Normal 150.0-500. 0 [facility] Comment on above: Performed By: #### 2 719605, 0853598, 6086554, 5997204, 52206571, 74123046 ####[facility] [address] [place] [address] RBC (Bld) [#/Vol] 5.3 E12/L Normal 4.3-5.9 [facility] Comment on above: Performed By: #### 2 847718, 3650839, 6226445, 0154214, 05350547, 03231019 ####[facility] [address] [place] [address] WBC corrected for nucl RBC Auto (Bld) [#/Vol] 14.6 E9/L High 4.0-11.0 [facility] Comment on above: Performed By: #### 2 833021, 0861714, 9315159, 9310052, 05348087, 25661836 ####[facility] [address] [place] [address] CHEMISTRYOrdered By: SYSTEM SYSTEM on 07-26-2022 Troponin I.cardiac [Mass/Vol] 6.70 pg/mL Low 10.10 - 27.10 pg/mL [facility] Remisol Troponin I.cardiac [Mass/Vol] 5.40 pg/mL Low 10.10 - 27.10 pg/mL [facility] Remisol Troponin I.cardiac [Mass/Vol] 6.00 pg/mL Low 10.10 - 27.10 pg/mL [facility] Anion gap [Moles/Vol] 13 mmol/L Normal 6 - 16 mEq/L [facility] Calcium [Mass/Vol] 9.3 mg/dL Normal 8.9 - 11. 1 mg/dL [facility] Chloride [Moles/Vol] 101 mmol/L Normal 101 - 111 mmol/L [facility] CO2 [Moles/Vol] 27 mmol/L Normal 21 - 31 mmol/L [facility] Creatinine [Mass/Vol] 0.8 mg/dL Normal 0.5 - 1.3 mg/dL [facility] GFR/1.73 sq M.predicted among blacks MDRD (S/P/Bld) [Vol rate/Area] mL/min/1.73 m2 Normal >=59mL/min /1.73 m2 [facility] Chem S GFR/1.73 sq M.predicted among non-blacks MDRD (S/P/Bld) [Vol rate/Area] mL/min/1.73 m2 Normal >=59mL/min /1.73 m2 [facility] Chem S Glucose [Mass/Vol] 88 mg/dL Normal 55 - 199 mg/dL [facility] Remisol Magnesium [Mass/Vol] 2.0 mg/dL Normal 1.3 - 2.4 mg/dL [facility] Remisol Potassium [Moles/Vol] 3.6 mmol/L Normal 3.5 - 5.3 mmol/L [facility] Remisol Sodium [Moles/Vol] 137 mmol/L Normal 135 - 145 mmol/L [facility] Remisol Urea nitrogen [Mass/Vol] 11 mg/dL Normal 5 - 21 mg/dL [facility] Remisol Urea nitrogen/Creatinin e [Mass ratio] 14 mg/mg Normal 10 - 20 [facility] Remisol CHEMISTRYOrdered By: Lab ROP User on 07-26-2022 Glucose [Mass/Vol] 106 mg/dL High 55 - 99 mg/dL [facility] POC Subsection Comment on above: Result Comment: Parker IGL POC Device SN [id number] Invalid Interpretation Code [facility] POC Subsection POC User ID [id number] Invalid Interpretation Code [facility] POC Subsection POC Username SHANKAR ABARCA Invalid Interpretation Code [facility] POC Subsection CT Head or Brain w/o Contras ton 07-26-2022 CT Head or Brain w/o Contrast Normal [facility] Capillary Glucose POCon Glucose [Mass/Vol] 106 mg/dL High 55-99 [facility] Comment on above: Result Comment: Parker GIL Performed By: #### 2 [id number] ####[facility] [address] [place] [address] Consent for Treatmenton Consent for Treatment [id number]#[id number]:[address] [facility] ED Clinical Summaryon 2022 ED Clinical Summary Normal [facility] ED Note-Physicianon 07-27-19 ED Note-Physician Normal [facility] Comment on above: Result Comment: Elec tronically Signed By: Yaritza Cedeño PA-C\.br\Date and Time Signed: 07/26/22 14:17 EDT\.br\Electronically Co-Signed By: Lance Wu M.D.\.br\Date and Time Co-Signed: 07/26/22 15:36 EDT ED Patient Education Noteon 07-26-2022 ED Patient Education Note Normal [facility] ED Patient Summaryon ED Patient Summary Normal [facility] HEMATOLOGYOrdered By: SYSTEM SYSTEM on 07-26-2022 Basophils/100 [...] 13.9 % Normal 10.9 - 14.2 % [facility] HemeAutoSS Hematocrit (Bld) [Volume fraction] 47.0 % High 34.0 - 46.0 % [facility] HemeAutoSS Hemoglobin (Bld) [Mass/Vol] 15.3 g/dL Normal 12.0 - 16.0 gm/dL [facility] HemeAutoSS MCH (RBC) [Entitic mass] 29.2 pg Normal 27.0 - 34.0 pg [facility] HemeAutoSS MCHC (RBC) [Mass/Vol] 32.7 g/dL Normal 31.4 - 36.0 gm/dL FT HemeAutoSS MCV (RBC) [Entitic vol] 89.3 fL Normal 80.0 - 100.0 fL [facility] HemeAutoSS Platelet mean volume (Bld) [Entitic vol] 6.7 fL Normal 6.4 - 10.8 fL [facility] HemeAutoSS Platelets (Bld) [#/Vol] 324.0 E9/L Normal 150.0 - 500.0 E9/L [facility] HemeAutoSS RBC (Bld) [#/Vol] 5.3 E12/L Normal 4.3 - 5.9 E12/L [facility] HemeAutoSS WBC corrected for nucl RBC Auto (Bld) [#/Vol] 14.6 E9/L High 4.0 - 11.0 E9/L [facility] HemeAutoSS Magnesiumon 07-26-2022 Magnesium [Mass/Vol] 2.0 mg/dL Normal 1.3-2.4 [facility] Comment on above: Performed By: #### 2 113393, 6615512, 6803791, 5364455, 06060196, 84448549 ####[facility] [address] [place] [address] Monitor Recordon 07-26-2022 Monitor Record [id number]#[id number]:[address] [facility] Pre-Arrival Noteon 3 Pre-Arrival Note Normal [facility] Troponin 0 Hr.on 07-26-2022 Troponin I.cardiac [Mass/Vol] 6.60 pg/mL Low 10.10-27.[address] [facility] Comment on above: Order Comment: pt st ill in imaging, will check back later [id number] 07/26/2022 12:32:06 EDT Result Comment: The 95% CI (Confidence Interval) PPV (Positive Predictive Value) for myocardial infarction in females is 38 pg/mL, in males 51 pg/mL. The results should be used in conjunction with clinical conditions of myocardial infarction.([employer] High Sensitivity Troponin I Instructions For Use, [employer], November 2017) Performed By: #### 2 874165, 8620050, 3985842, 1210948, 44954719, 64447632 ####[facility] [address] [place] [address] Troponin 3 Hr.on 07-26-2022 Troponin I.cardiac [Mass/Vol] 6.00 pg/mL Low 10.10-27.[address] [facility] Comment on above: Result Comment: The 95% CI (Confidence Interval) PPV (Positive Predictive Value) for myocardial infarction in females is 38 pg/mL, in males 51 pg/mL. The results should be used in conjunction with clinical conditions of myocardial infarction.([employer] High Sensitivity Troponin I Instructions For Use, [employer], November 2017) Performed By: #### 1 5137269 ####[facility] [address] [place] [address] Troponin 6 Hr.on 07-26-2022 Troponin I.cardiac [Mass/Vol] 5.40 pg/mL Low 10.10-27.[address] [facility] Comment on above: Result Comment: The 95% CI (Confidence Interval) PPV (Positive Predictive Value) for myocardial infarction in females is 38 pg/mL, in males 51 pg/mL. The results should be used in conjunction with clinical conditions of myocardial infarction.(Access High Sensitivity Troponin I Instructions For Use, [employer] 2017) Performed By: #### 1 0521862 ####[facility] [address] [place] [address] UA With Cult Reflexon 2022 Bacteria LM Ql (Urine sed) TRACE Normal Trace [facility] Comment on above: Performed By: #### 1 6116208 ####[facility] [address] [place] [address] Bilirubin Ql (U) Negative Normal Negative [facility] Comment on above: Performed By: #### 1 3414270 ####[address] [address] Clarity (U) CLEAR Normal Clear [facility] Comment on above: Performed By: #### 1 8929189 ####[address] [address] Color (U) YELLOW Normal Yellow [facility] Comment on above: Performed By: #### 1 0652563 ####[address] [address] Epithelial cells.squamous LM.HPF (Urine sed) [#/Area] 3-4 Normal 0-2 [facility] Comment on above: Performed By: #### 1 9786801 ####[address] [address] Glucose Test strip (U) [Mass/Vol] Negative Normal Negative [facility] Comment on above: Performed By: #### 1 0201194 ####[address] [address] Hemoglobin Ql (U) Negative Normal Negative [facility] Comment on above: Performed By: #### 1 5432264 ####[address] [address] Ketones (U) [Mass/Vol] Negative Normal Negative [facility] Comment on above: Performed By: #### 1 9707509 ####[facility] [address] [place] [address] Buckshot.plasma/Lit hium.RBC (Bld) [Mass ratio] 0-3 Normal 0-3 [facility] Comment on above: Performed By: #### 1 7887671 ####[address] [place] [address] Nitrite Ql (U) Negative Normal Negative [facility] Comment on above: Performed By: #### 1 3284587 ####[place] [address] pH (U) 6.5 [pH] Invalid Interpretation Code 5.0-9.0 [facility] Comment on above: Performed By: #### 1 3212758 ####[address] [address] Protein (U) [Mass/Vol] Negative Normal Negative [facility] Comment on above: Performed By: #### 1 3983391 ####[address] Specific gravity (U) [Rel density] <=1.005 Invalid Interpretation Code 1.005-1.[address] [facility] Comment on above: Performed By: #### 1 3084308 ####[place] [address] Type of Urine collection method Clean Catch Normal [facility] Comment on above: Performed By: #### 1 7858166 ####[place] Urobilinogen Qn (U) 0.2 {Malu'U}/dL Normal 0.0-1.0 [facility] Comment on above: Performed By: #### 1 2992790 ####[address] [address] WBC Auto Ql (U) TRACE Abnormal Negative [facility] Comment on above: Performed By: #### 1 8208357 ####[address] [place] [address] WBC LM.HPF (Urine sed) [#/Area] 0-5 Normal 0-5 [facility] Comment on above: Performed By: #### 1 0836140 ####[address] [address] URINALYSISOrdered By: Katerina Parker on 07-26-2022 Bacteria LM Ql (Urine sed) Trace /HPF Normal Trace/HPF [facility] UA Auto SS Bilirubin Ql (U) Negative (07/26/22 4:49 PM) Normal Negative [facility] UA Auto SS Clarity (U) Clear (07/26/22 4:49 PM) Normal Clear [facility] UA Auto SS Color (U) Yellow (07/26/22 4:49 PM) Normal Yellow [facility] UA Auto SS Epithelial cells.squamous LM.HPF (Urine sed) [#/Area] 3-4 /HPF Normal 0-2/HPF [facility] UA Auto SS Glucose Test strip (U) [Mass/Vol] Negative (07/26/22 4:49 PM) Normal Negative [facility] UA Auto SS Hemoglobin Ql (U) Negative (07/26/22 4:49 PM) Normal Negative [facility] UA Auto SS Ketones (U) [Mass/Vol] Negative (07/26/22 4:49 PM) Normal Negative [facility] UA Auto SS Buckshot.plasma/Lit hium.RBC (Bld) [Mass ratio] 0-3 /HPF Normal [...] Desc Clean Catch (07/26/22 4:49 PM) Normal [facility] UA Auto SS Urobilinogen Qn (U) 0.0136603 {Malu'U}/dL Normal 0.0 - 1.0 EU/dL [facility] UA Auto SS WBC Auto Ql (U) Trace *ABN* (07/26/22 4:49 PM) Invalid Interpretation Code Negative [facility] UA Auto SS WBC LM.HPF (Urine sed) [#/Area] 0-5 /HPF Normal 0-5/HPF [facility] UA Auto SS XR Chest Single Viewon 07-26 XR Chest Single View Normal [facility] eGFRon 07-26-2022 GFR/1.73 sq M.predicted among blacks MDRD (S/P/Bld) [Vol rate/Area] mL/min/{1.73_m2} Normal >=59 [facility] Comment on above: Order Comment: Order added by Discern Expert. Result Comment: eGFR is race adjusted. AA=. Performed By: #### 2 068094, 1897893, 2238261, 7530045, 62406455, 31490261 ####[facility] [address] [place] [address] GFR/1.73 sq M.predicted among non-blacks MDRD (S/P/Bld) [Vol rate/Area] mL/min/{1.73_m2} Normal >=59 [facility] Comment on above: Order Comment: Order added by Discern Expert. Result Comment: [employer] gina kidney disease could be indicated at eGFR's of less than 60 mL/min/1.73m2. Kidney failure is indicated at less than 15 mL/min/1.73m2. Performed By: #### 2 905398, 4122430, 0272015, 6362847, 45394410, 69102776 ####[facility] [address] [place] [address] SURGICAL PATH REPORTon 07-25 SURGICAL PATH REPORT [facility] Department of Pathology [address] [place] [phone] Name: LEELEE CEDILLO : 1950 [facility] [id number]: [address] Female [facility] : n: Admit 71 years Attending ADELE FLEMING Age: Provider: Ordering ADELE FLEMING Provider: Consulti Surgical Pathology Report ng: ACCESSION: COLLECTED DATE/TIME: RECEIVED DATE/TIME: PATHOLOGIST: [id number] 07/24/2022 12:16 EDT 07/24/2022 12:16 EDT MICHELINE STERN MD Final Diagnosis Report for [facility] [place] RIGHT ANKLE, PUNCH BIOPSY: - FRAGMENT [...] MP:alexa 07/24/2022 Tissue pathology report for: [facility], [address] [place] [address]; ____ Print 07/25/2022 15:48 EDT Number: Date/Time: [facility] Department of Pathology [address] [place] [phone] Name: LEELEE CEDILLO : 1950 [facility] [id number] Number: Gender [facility] n: Admit 71 years Attending ADELE FLEMING Age: Provider: Ordering ADELE FLEMING Provider: Consulti Surgical Pathology Report ng: ACCESSION: COLLECTED DATE/TIME: RECEIVED DATE/TIME: PATHOLOGIST: [id number] 07/24/2022 12:16 EDT 07/24/2022 12:16 EDT MICHELINE STERN MD Gross Description PATHOLOGY SERVICES PROVIDED BY [employer] (CLIA #[id number]) in cooperation with [facility] at [address] [place] [address] ( CLIA #[id number]) Microscopic Diagnosis The final diagnosis is based on a microscopic exam of automobile rental representative sections. Codes CPT CODE: 51248 ____ Print 07/25/2022 15:48 EDT Number: Date/Time: Normal [facility] Comment on above: Performed By: #### 9 [id number] #### [facility] Services [address] [id number] Anthropological Linguist: Jared Oh MD POINT OF CARE GLUCOSEon Glucose [Mass/Vol] 114 mg/dL Critically high 74-106 [facility] Comment on above: Performed By: #### P OCGLUC #### [facility] [address] [address] [address] Salvador Yung Glucose [Mass/Vol] 112 mg/dL Critically high 74-106 [facility] Comment on above: Performed By: #### P OCGLUC #### [facility] [address] [place] [address] Dr. Salvador Yung EMS Documentationon 07-21-[address] [facility] Covid-19 PCR (CVDTB)on 06-20 SARS-CoV-2 (COVID-19) RNA VIVIANA+probe Ql (Unsp spec) Not detected Normal NOT DETECTED [facility] Comment on above: Result Comment: This test is not yet approved or cleared by the [place] FDA. When there are no FDA-approved or cleared tests available, and other criteria are met, FDA can make tests available under an emergency access mechanism called an Emergency Use Authorization (EUA). The EUA for this test is supported by the [place] of Health and Human Service's (HHS's) declaration [...] consistent with SARS-CoV-2. Performed By: #### C VDTB #### [facility] [address] [place] [address] Dr. Salvador Yung PROF CHEM 8 (BAS METB)on Anion gap [Moles/Vol] 12.0 mmol/L Normal [facility] Comment on above: Performed By: #### B MP #### [facility] [address] [place] [address] Dr. Salvador Yung Calcium [Mass/Vol] 9.4 mg/dL Normal 8.5-10.1 [facility] Comment on above: Performed By: #### B MP #### [facility] [address] [place] [address] Dr. Salvador Yung Chloride [Moles/Vol] 100 mmol/L Normal 98-107 [facility] Comment on above: Performed By: #### B MP #### [facility] [address] [place] [address] Dr. Salvador Yung CO2 [Moles/Vol] 29.8 mmol/L Normal 21.0-32.0 [facility] Comment on above: Performed By: #### B MP #### [facility] [address] [place] [address] Dr. Salvador Yung Creatinine [Mass/Vol] 0.91 mg/dL Normal 0.55-1.02 [facility] Comment on above: Performed By: #### B MP #### [facility] [address] [place] [address] Dr. Salvador Yung EGFR-AF LATVIAN >60 Normal >=60 [facility] Comment on above: Performed By: #### B MP #### [facility] [address] [place] [address] Dr. Salvador Yung EGFR-NON AF LATVIAN >60 Normal >=60 [facility] Comment on above: Performed By: #### B MP #### [facility] [address] [address] [address] Salvador Yung Glucose [Mass/Vol] 82 mg/dL Normal 74-106 [facility] Comment on above: Performed By: #### B MP #### [facility] [address] [address] [address] Salvador Yung Potassium [Moles/Vol] 3.8 mmol/L Normal 3.5-5.1 [facility] Comment on above: Performed By: #### B MP #### [facility] [address] [address] [address] Salvador Yung Sodium [Moles/Vol] 138 mmol/L Normal 136-145 [facility] Comment on above: Performed By: #### B MP #### [facility] [address] [address] [address] Salvador Yung Urea nitrogen [Mass/Vol] 12.0 mg/dL Normal 7.0-18.0 [facility] Comment on above: Performed By: #### B MP #### [facility] [address] [address] [address] Salvador Yung Urea nitrogen/Creatinin e [Mass ratio] 13.2 mg/mg Normal [facility] Comment on above: Performed By: #### B MP #### [facility] [address] [address] [address] Salvador Yung VC INJ SCL JESSICA CONFIGURATION MANAGEMENT ARCHITECT VEINSon 0 07-01-2022 VC INJ SCL JESSICA [employer]URATION MANAGEMENT ARCHITECT VEINS Patient: LEELEE CEDILLO Exam Date: 07/01/2022 : 1950 Gender:F Ordering : DR ALFRED UMAÑA M.D. Admission #: [id number] Family : Order #: [id number] CLICK HERE TO VIEW EXAM RADIOLOGY REPORT [...] Lobato M.D. on 07/01/2022 at 15:22 Normal [facility] VC CONSULT FOLLOWUPon 2022 VC CONSULT FOLLOWUP Patient: LEELEE CEDILLO Exam Date: 06/19/2022 : 1950 Gender:F Ordering : DR ALFRED UMAÑA M.D. Admission #: [id number] Family : Order #: [id number] CLICK HERE TO VIEW EXAM RADIOLOGY REPORT [...] Umaña MD on 06/19/2022 at 14:17 Normal [facility] VC EXT VENOUS LT LIMITEDon 0 06-19-2022 VC EXT VENOUS LT LIMITED Patient: LEELEE CEDILLO. Exam Date: 06/19/2022 : 1950 Gender:F Ordering : DR ALFRED UMAÑA M.D. Admission #: [id number] Family : Order #: [id number] CLICK HERE TO VIEW EXAM RADIOLOGY REPORT [...] Umaña MD on 06/19/2022 at 14:15 Normal [facility] VC INJ FOAM SCLERO W US MLTI on 06-13-2022 VC INJ FOAM SCLERO W US MLTI Patient: LEELEE CEDILLO Exam Date: 06/13/2022 : 1950 Gender:F Ordering : DR ALFRED UMAÑA M.D. Admission #: [id number] Family : Order #: [id number] CLICK HERE TO VIEW EXAM RADIOLOGY REPORT [...] duple (more content not included)... Normal [facility] VC CONSULT FOLLOWUPon 2022 VC CONSULT FOLLOWUP Patient: LEELEE CEDILLO Exam Date: 06/10/2022 : 1950 Gender:F Ordering : DR ALFRED UMAÑA M.D. Admission #: [id number] Family : Order #: [id number] CLICK HERE TO VIEW EXAM RADIOLOGY REPORT [...] Julio Lobato M.D. on 06/10/2022 at 12:36 [facility] VC EXT VENOUS RT LIMITEDon 0 06-10-2022 VC EXT VENOUS RT LIMITED Patient: LEELEE CEDILLO Exam Date: 06/10/2022 : 1950 Gender:F Ordering : DR ALFRED UMAÑA M.D. Admission #: [id number] Family : Order #: [id number] CLICK HERE TO VIEW EXAM RADIOLOGY REPORT [...] Lobato M.D. on 06/10/2022 at 12:33 Normal [facility] VC INJ FOAM SCLERO W US MLTI on 06-03-2022 VC INJ FOAM SCLERO W US MLTI Patient: LEELEE CEDILLO Exam Date: 06/03/2022 : 1950 Gender:F Ordering : DR ALFRED UMAÑA M.D. Admission #: [id number] Family : Order #: [id number] CLICK HERE TO VIEW EXAM RADIOLOGY REPORT PROCEDURE: VEIN CENTER INJECTION FOAM SCLEROSING SOLUTION WITH ULTRASOUND MULTIPLE VEINS COMPARISON: None. Pre-operative Diagnosis: CEAP class C6 venous insufficiency with pain, tenderness, edema and incompetent right small saphenous vein and doula vein, incompetent varicose veins, venous insufficiency right leg secondary to venous incompetence Post-operative Diagnosis: CEAP class C6 venous insufficiency with pain, tenderness, edema and incompetent right small saphenous vein and doula vein, incompetent varicose veins, venous insufficiency right [...] l (more content not included)... Normal [facility] VC CONSULT FOLLOWUPon 2022 VC CONSULT FOLLOWUP Patient: LEELEE CEDILLO Exam Date: 05/28/2022 : 1950 Gender:F Ordering : DR ALFRED UMAÑA M.D. Admission #: [id number] Family : Order #: [id number] CLICK HERE TO VIEW EXAM RADIOLOGY REPORT [...] seen by her primary care physician, Dr. Vick and had injections for the pain. Patient [...] on 05/28/2022 at 11:42 Approved by: Alfred Umaña MD on 05/28/2022 at 11:44 Normal [facility] VC EXT VENOUS RT LIMITEDon 0 05-28-2022 VC EXT VENOUS RT LIMITED Patient: LEELEE CEDILLO Exam Date: 05/28/2022 : 1950 Gender:F Ordering : DR ALFRED UMAÑA M.D. Admission #: [id number] Family : Order #: [id number] CLICK HERE TO VIEW EXAM RADIOLOGY REPORT [...] extends to distal lower leg. Thrombus in doula distal medial lower leg 2.8 mm from PTV. COMPRESSIBILITY: Non-compressible segments corresponding to thrombus. FLOW: Absent flow corresponding to thrombus. *Exam performed in accordance with [facility] practice guidelines- Peripheral venous ultrasound, July 14, 2009. CONCLUSION: Post ablation occlusion of the right small saphenous vein with heat induced thrombus 2.6 cm from the saphenous popliteal junction. Incidental occlusion of an associated incompetent perforating vein Dictated by: Alfred Umaña MD on 05/28/2022 at 11:29 Approved by: Alfred Umaña MD on 05/28/2022 at 11:30 Normal [facility] CBC AUTO DIFFon 05-21-2022 BASO # 0.1 103/ul Normal 0.0-0.1 [facility] Comment on above: Performed By: #### C BC #### [facility] [address] [place] [address] Dr. Salvador Yung Basophils/100 WBC (Bld) 0.6 % Normal 0.2-2.0 [facility] Comment on above: Performed By: #### C BC #### [facility] [address] [place] [address] Dr. Salvador Yung EO # 0.1 103/ul Normal 0.0-0.7 [facility] Comment on above: Performed By: #### C BC #### [facility] [address] [place] [address] Dr. Salvador Yung Eosinophils/100 WBC (Bld) 0.6 % Critically low 0.9-7.0 [facility] Comment on above: Performed By: #### C BC #### [facility] [address] [place] [address] Dr. Salvador Yung Erythrocyte distribution width (RBC) [Ratio] 12.4 % Normal 11.0-15.0 [facility] Comment on above: Performed By: #### C BC #### [facility] [address] [place] [address] Dr. Salvador Yung Hematocrit (Bld) [Volume fraction] 43.1 % Normal 36.0-48.0 [facility] Comment on above: Performed By: #### C BC #### [facility] [address] [place] [address] Dr. Salvador Yung Hemoglobin (Bld) [Mass/Vol] 13.8 g/dL Normal 12.0-16.0 [facility] Comment on above: Performed By: #### C BC #### [facility] [address] [place] [address] Dr. Salvador Yung IG # 0.06 10e3/ul Critically high 0.00-0.03 [facility] Comment on above: Performed By: #### C BC #### [facility] [address] [place] [address] Dr. Salvador Yung IG % 0.7 % Critically high 0.0-0.5 [facility] Comment on above: Performed By: #### C BC #### [facility] [address] [place] [address] Dr. Salvador Yung LYMPH # 1.7 103/ul Normal 1.2-3.8 [facility] Comment on above: Performed By: #### C BC #### [facility] [address] [place] [address] Dr. Salvador Yung Lymphocytes/100 WBC (Bld) 20.2 % Critically low 20.5-60.0 [facility] Comment on above: Performed By: #### C BC #### [facility] [address] [place] [address] Dr. Salvador Yung MANUAL DIFF REQ NO Normal [facility] Comment on above: Performed By: #### C BC #### [facility] [address] [place] [address] Dr. Salvador Yung MCH (RBC) [Entitic mass] 30.1 pg Normal 26.7-34.0 [facility] Comment on above: Performed By: #### C BC #### [facility] [address] [address] [address] Salvador Yung MCHC (RBC) [Mass/Vol] 32.0 g/dL Normal 29.9-35.2 [facility] Comment on above: Performed By: #### C BC #### [facility] [address] [place] [address] Dr. Salvador Yung MCV (RBC) [Entitic vol] 93.9 fL Normal 81.0-99.0 [facility] Comment on above: Performed By: #### C BC #### [facility] [address] [place] [address] Dr. Salvador Yung MONO # 0.5 103/ul Normal 0.3-0.8 [facility] Comment on above: Performed By: #### C BC #### [facility] [address] [place] [address] Dr. Salvador Yung Monocytes/100 WBC (Bld) 6.1 % Normal 1.7-12.0 [facility] Comment on above: Performed By: #### C BC #### [facility] [address] [place] [address] Dr. Salvador Yung NEUT # 6.1 103/ul Normal 1.4-6.5 [facility] Comment on above: Performed By: #### C BC #### [facility] [address] [place] [address] Dr. Salvador Yung Neutrophils/100 WBC (Bld) 71.8 % Normal 43.0-75.0 [facility] Comment on above: Performed By: #### C BC #### [facility] [address] [place] [address] Dr. Salvador Yung Platelet mean volume (Bld) [Entitic vol] 8.2 fL Critically low 9.5-13.5 [facility] Comment on above: Performed By: #### C BC #### [facility] [address] [place] [address] Dr. Salvador Yung PLT 246 103/ul Normal 150-450 [facility] Comment on above: Performed By: #### C BC #### [facility] [address] [place] [address] Dr. Salvador Yung RBC 4.59 106/ul Normal 4.20-5.40 [facility] Comment on above: Performed By: #### C BC #### [facility] [address] [place] [address] Dr. Salvador Yung WBC 8.5 103/ul Normal 4.0-11.0 [facility] Comment on above: Performed By: #### C BC #### [facility] [address] [place] [address] Dr. Salvador Yung FREE T3on 05-21-2022 FREE T3 2.14 pg/mlL Critically low 2.18-3.98 [facility] Comment on above: Performed By: #### P OCGLUC #### [facility] [address] [place] [address] Dr. Salvador Yung GLYCOHEMOGLOBIN A1Con 2022 ADA RECOMMENDATION SEE BELOW Normal [facility] Comment on above: Result Comment: ADA RECOMMENDED LIMIT 4.0 - 6.0 ADA THERAPEUTIC TARGET < 7.0 ACTION SUGGESTED > 7.0 Performed By: #### P OCGLUC #### [facility] [address] [place] [address] Dr. Salvador Yung Glucose [Mass/Vol] 100 mg/dL Normal [facility] Comment on above: Performed By: #### P OCGLUC #### [facility] [address] [place] [address] Dr. Salvador Yung HbA1c (Bld) [Mass fraction] 5.1 % Normal 4.5-6.2 [facility] Comment on above: Performed By: #### P OCGLUC #### [facility] [address] [place] [address] Dr. Salvador Yung LIPID PROFILEon 05-21-2022 CHOL-HDL RATIO NORM SEE BELOW Normal [facility] Comment on above: Result Comment: 3.3 - 4.4 LOW RISK 4.4 - 7.1 AVERAGE RISK 7.1 - 11.0 MODERATE RISK >11.0 HIGH RISK Performed By: #### P OCGLUC #### [facility] [address] [place] [address] Dr. Salvador Yung Cholesterol [Mass/Vol] 164 mg/dL Normal <=200 [facility] Comment on above: Performed By: #### P OCGLUC #### [facility] [address] [address] [address] Salvador Yung Cholesterol in HDL [Mass/Vol] 61 mg/dL Critically high 40-60 [facility] Comment on above: Performed By: #### P OCGLUC #### [facility] [address] [address] [address] Salvador Yung Cholesterol in LDL [Mass/Vol] 90.2 mg/dL Normal [facility] Comment on above: Performed By: #### P OCGLUC #### [facility] [address] [address] [address] Salvador Yung Cholesterol.total/ Cholesterol in HDL [Mass ratio] 2.7 {ratio} Normal [facility] Comment on above: Performed By: #### P OCGLUC #### [facility] [address] [place] [address] Dr. Salvador Yung HDL NORMAL > or = 60 mg/dl - LO W CARDIOVASCULAR RISK <40 mg/dl - HIGH CARDIOVASCULAR RISK Normal [facility] Comment on above: Performed By: #### P OCGLUC #### [facility] [address] [place] [address] Dr. Salvador Yung LDL CALC NORMAL SEE BELOW Normal [facility] Comment on above: Result Comment: <100 mg/dl OPTIMAL 100 - 129 mg/dl NEAR OR ABOVE OPTIMAL 130 - 159 mg/dl BORDERLINE HIGH 160 - 189 mg/dl HIGH >190 mg/dl VERY HIGH Performed By: #### P OCGLUC #### [facility] [address] [address] [address] Salvador Yung Triglyceride [Mass/Vol] 64 mg/dL Normal <=150 [facility] Comment on above: Performed By: #### P OCGLUC #### [facility] [address] [place] [address] Dr. Salvador Yung VLDL CALC 12.8 mg/dL Normal [facility] Comment on above: Performed By: #### P OCGLUC #### [facility] [address] [address] [address] Salvador Yung PROF 14(COMP METB)on 023 Albumin [Mass/Vol] 3.2 g/dL Critically low 3.4-5.0 [facility] Comment on above: Performed By: #### P OCGLUC #### [facility] [address] [address] [address] Salvador Yung Albumin/Globulin [Mass ratio] 0.7 {ratio} Normal [facility] Comment on above: Performed By: #### P OCGLUC #### [facility] [address] [address] [address] Salvador Yung ALP [Catalytic activity/Vol] 68 U/L Normal 46-116 [facility] Comment on above: Performed By: #### P OCGLUC #### [facility] [address] [place] [address] Dr. Salvador Yung ALT [Catalytic activity/Vol] 25 U/L Normal 14-59 [facility] Comment on above: Performed By: #### P OCGLUC #### [facility] [address] [place] [address] Dr. Salvador Yung Anion gap [Moles/Vol] 11.8 mmol/L Normal [facility] Comment on above: Performed By: #### P OCGLUC #### [facility] [address] [place] [address] Dr. Salvador Yung AST [Catalytic activity/Vol] 20 U/L Normal 15-37 [facility] Comment on above: Performed By: #### P OCGLUC #### [facility] [address] [place] [address] Dr. Salvador Yung Bilirubin [Mass/Vol] 0.5 mg/dL Normal 0.2-1.0 [facility] Comment on above: Performed By: #### P OCGLUC #### [facility] [address] [place] [address] Dr. Salvador Yung Calcium [Mass/Vol] 8.9 mg/dL Normal 8.5-10.1 [facility] Comment on above: Performed By: #### P OCGLUC #### [facility] [address] [place], [place] [id number] Dr. Salvador Yung Chloride [Moles/Vol] 105 mmol/L Normal 98-107 [facility] Comment on above: Performed By: #### P OCGLUC #### [facility] [address] [address] [address] Salvador Yung CO2 [Moles/Vol] 29.9 mmol/L Normal 21.0-32.0 [facility] Comment on above: Performed By: #### P OCGLUC #### [facility] [address] [address] [address] Salvador Yung Creatinine [Mass/Vol] 0.74 mg/dL Normal 0.55-1.02 [facility] Comment on above: Performed By: #### P OCGLUC #### [facility] [address] [place] [address] Dr. Salvador Yung EGFR-AF LATVIAN >60 Normal >=60 [facility] Comment on above: Performed By: #### P OCGLUC #### [facility] [address] [address] [address] Salvador Yung EGFR-NON AF LATVIAN >60 Normal >=60 [facility] Comment on above: Performed By: #### P OCGLUC #### [facility] [address] [address] [address] Salvador Yung Globulin (S) [Mass/Vol] 4.3 g/dL Normal [facility] Comment on above: Performed By: #### P OCGLUC #### [facility] [address] [address] [address] Salvador Yung Glucose [Mass/Vol] 88 mg/dL Normal 74-106 [facility] Comment on above: Performed By: #### P OCGLUC #### [facility] [address] [address] [address] Salvador Yung Potassium [Moles/Vol] 3.7 mmol/L Normal 3.5-5.1 [facility] Comment on above: Performed By: #### P OCGLUC #### [facility] [address] [place] [address] Dr. Salvador Yung Protein [Mass/Vol] 7.5 g/dL Normal 6.4-8.2 [facility] Comment on above: Performed By: #### P OCGLUC #### [facility] [address] [place] [address] Dr. Salvador Yung Sodium [Moles/Vol] 143 mmol/L Normal 136-145 [facility] Comment on above: Performed By: #### P OCGLUC #### [facility] [address] [place] [address] Dr. Salvador Yung Urea nitrogen [Mass/Vol] 11.0 mg/dL Normal 7.0-18.0 [facility] Comment on above: Performed By: #### P OCGLUC #### [facility] [address] [place] [address] Dr. Salvador Yung Urea nitrogen/Creatinin e [Mass ratio] 14.9 mg/mg Normal [facility] Comment on above: Performed By: #### P OCGLUC #### [facility] [address] [place] [address] Dr. Salvador Yung T4on 05-21-2022 T4 [Mass/Vol] 11.60 ug/dL Normal 4.80-13.90 [facility] Comment on above: Performed By: #### P OCGLUC #### [facility] [address] [place] [address] Dr. Salvador Yung TSHon 05-21-2022 TSH 0.165 uIU/mL Critically low 0.358-3.74 0 [facility] Comment on above: Performed By: #### P OCGLUC #### [facility] [address] [place] [address] Dr. Salvador Yung VC ENDOVENOUS ABL 1ST V RTon 05-21-2022 VC ENDOVENOUS ABL 1ST V RT Patient: LEELEE CEDILLO Exam Date: 05/21/2022 : 1950 Gender:F Ordering : DR ALFRED UMAÑA M.D. Admission #: [id number] Family : Order #: [id number] CLICK HERE TO VIEW EXAM RADIOLOGY REPORT PROCEDURE: VEIN CENTER ENDOVENOUS ABLATION FIRST VEIN RIGHT SMALL SAPHENOUS VEIN COMPARISON: None. INDICATIONS: Pain co-occurrent and due to varicose veins of bilateral legs I83.813 OPERATIVE REPORT: The risks and benefits of the procedure had been previously discussed, and were rediscussed at length. Informed written consent was obtained by and Jameson avila. Time out procedure was [...] Umaña MD on 05/21/2022 at 13:51 Normal [facility] VITAMIN D 25 OHon 05-21-2022 VIT D 25-OH 25.1 ng/mL Normal [facility] Comment on above: Performed By: #### V ITAD #### [facility] [address] [place] [address] Dr. Salvador Yung VIT D RANGES SEE BELOW [facility] Comment on above: Result Comment: <20 ng/mL Vit D deficient 20 - <30 ng/mL Vit D insufficient 30 - 100 ng/mL Vit D sufficient >100 ng/mL Potential Toxicity Performed By: #### V ITAD #### [facility] [address] [place] [address] Dr. Salvador Yung XR HIP LT 2 [...] by: MARI LORENZO Date: 2022-05-21 16:26 Normal [facility] VC COMP CONSULTATIONon 05-01 VC COMP CONSULTATION Patient: LEELEE CEDILLO Exam Date: 05/01/2022 : 1950 Gender:F Ordering : DR. ADELE FLEMING DKimberleeP.MKimberlee Admission #: [id number] Family : Order #: [id number] CLICK HERE TO VIEW EXAM CORRECTION to [...] small saphenous vein, right lower extremity incompetent doula veins, and bilateral lower extremity incompetent branch [...] arterial disease 5. CEAP: C6, EC, AP, FL PLAN: 1. Continued use of compression stockings 2. Elevated legs and increased physical activity symptomatic relief 3. Endovenous laser ablation of right small saphenous vein and doula vein. 4. Microfoam chemical ablation of dilated, [...] on 05/01/2022 at 14:45 Dictated by: Julio Lobato M.D. on 05/01/2022 at 15:27 Approved by: Julio Lobato M.D. on 05/01/2022 at 15:27 Normal [facility] [facility]OUS REFLUX SAMI LMTon 0 05-01-2022 VC VENOUS REFLUX SAMI LMT Patient: LEELEE CEDILLO Exam Date: 05/01/2022 : 1950 Gender:F Ordering : DR. ADELE JimPMaribel Admission #: [id number] Family : DR ALFRED UMAÑA M.D. Order #: [id number] CLICK HERE TO VIEW EXAM RADIOLOGY REPORT [...] chronic thrombus visualized Compressibility: Normal Flow: Normal Home Care Specialist: Dist/med calf 2.6mm with 0s reflux. Mid/med calf 3.5mm with 0s reflux. Tech Note: GSV has been previously stripped. Patent varicose vein mid/med calf 2.3mm with 0.5s reflux. Patent varicose vein prox/med calf 3.4mm with 1.2s reflux. Patent varicose vein dist/med thigh 5.4mm with 0.8s reflux. CONCLUSION: 1. Dilated, incompetent right small saphenous vein. 2. Dilated, incompetent doula veins and bilateral lower extremity branch saphenous varicosities. 3. Consultation for endovenous laser ablation is recommended. Dictated by: Julio Lobato M.D. on 05/01/2022 at 14:06 Approved by: Julio Lobato M.D. on 05/01/2022 at 14:28 Normal [facility] Coding Summary.on 03-11-[address] [facility] ED Traumaon 03-09-2022 ED Trauma [id number]#[id number]:[address] [facility] Consent for Procedure/Surger yon 03-08-2022 Consent for Procedure/Surgery [id number]#[id number]:[address] [facility] Consent for Treatmenton 02-18 Consent for Treatment [id number]#1.00CD:[address] [facility] Discharge Instructionson Discharge Instructions [id number]#[id number]:[address] [facility] ED Clinical Summaryon [address] [facility] ED Note-Physicianon 03-08-20 ED Note-Physician Normal [facility] Comment on above: Result Comment: Elec tronically Signed By: Wm Nagy DO.br\Date and Time Signed: 03/08/22 21:11 EST ED Patient Education Noteon 03-08-2022 ED Patient Education Note Normal [facility] ED Patient Summaryon 0[address] [facility] EMS Documentationon 03-08-[address] [facility] EMS Documentation Normal [facility] Monitor Recordon 03-08-2022 Monitor Record [id number]#[id number]:[address] [facility] Monitor Record [id number]#1.00CD:[address] [facility] Pre-Arrival Noteon Pre-Arrival Note Normal [facility] Respiratory Therapy Noteson 03-08-2022 Respiratory Therapy Notes conscious sedation on Eaton, Leelee. Used co2 monitor and one liter of 02. patient maintained 38 co2 and 99 O2. Last approx [address] [facility] XR Hip 2-3 Views Left + Pelv yasir 03-08-2022 XR Hip 2-3 Views Left + Pelvis Normal [facility] XR Hip 2-3 Views Left + Pelvis Normal [facility] BLEEDING TIMEon 03-06-2022 BLEEDING TIME 10.5 min Critically high 1.0-8.0 [facility] Comment on above: Performed By: #### B LTM #### [facility] [address] [address] [address] Salvador Yung CBC AUTO DIFFon 03-06-2022 BASO # 0.1 103/ul Normal 0.0-0.1 [facility] Comment on above: Performed By: #### C BC #### [facility] [address] [address] [address] Salvador Yung Basophils/100 WBC (Bld) 0.7 % Normal 0.2-2.0 [facility] Comment on above: Performed By: #### C BC #### [facility] [address] [place] [address] Dr. Salvador Yung EO # 0.1 103/ul Normal 0.0-0.7 [facility] Comment on above: Performed By: #### C BC #### [facility] [address] [address] [address] Salvador Yung Eosinophils/100 WBC (Bld) 0.7 % Critically low 0.9-7.0 [facility] Comment on above: Performed By: #### C BC #### [facility] [address] [address] [address] Salvador Yung Erythrocyte distribution width (RBC) [Ratio] 12.9 % Normal 11.0-15.0 [facility] Comment on above: Performed By: #### C BC #### [facility] [address] [place] [address] Dr. Salvador Yung Hematocrit (Bld) [Volume fraction] 41.3 % Normal 36.0-48.0 [facility] Comment on above: Performed By: #### C BC #### [facility] [address] [place] [address] Dr. Salvador Yung Hemoglobin (Bld) [Mass/Vol] 13.7 g/dL Normal 12.0-16.0 [facility] Comment on above: Performed By: #### C BC #### [facility] [address] [place] [address] Dr. Salvador Yung IG # 0.05 10e3/ul Critically high 0.00-0.03 [facility] Comment on above: Performed By: #### C BC #### [facility] [address] [place] [address] Dr. Salvador Yung IG % 0.7 % Critically high 0.0-0.5 [facility] Comment on above: Performed By: #### C BC #### [facility] [address] [place] [address] Dr. Salvador Yung LYMPH # 1.4 103/ul Normal 1.2-3.8 [facility] Comment on above: Performed By: #### C BC #### [facility] [address] [place] [address] Dr. Salvador Yung Lymphocytes/100 WBC (Bld) 18.9 % Critically low 20.5-60.0 [facility] Comment on above: Performed By: #### C BC #### [facility] [address] [place] [address] Dr. Salvador Yung MANUAL DIFF REQ NO Normal [facility] Comment on above: Performed By: #### C BC #### [facility] [address] [place] [address] Dr. Salvador Yung MCH (RBC) [Entitic mass] 30.3 pg Normal 26.7-34.0 [facility] Comment on above: Performed By: #### C BC #### [facility] [address] [place] [address] Dr. Salvador Yung MCHC (RBC) [Mass/Vol] 33.2 g/dL Normal 29.9-35.2 [facility] Comment on above: Performed By: #### C BC #### [facility] [address] [place] [address] Dr. Salvador Yung MCV (RBC) [Entitic vol] 91.4 fL Normal 81.0-99.0 [facility] Comment on above: Performed By: #### C BC #### [facility] [address] [place] [address] Dr. Salvador Yung MONO # 0.7 103/ul Normal 0.3-0.8 [facility] Comment on above: Performed By: #### C BC #### [facility] [address] [place] [address] Dr. Salvador Yung Monocytes/100 WBC (Bld) 9.9 % Normal 1.7-12.0 [facility] Comment on above: Performed By: #### C BC #### [facility] [address] [place] [address] Dr. Salvador Yung NEUT # 5.2 103/ul Normal 1.4-6.5 [facility] Comment on above: Performed By: #### C BC #### [facility] [address] [place] [address] Dr. Salvador Yung Neutrophils/100 WBC (Bld) 69.1 % Normal 43.0-75.0 [facility] Comment on above: Performed By: #### C BC #### [facility] [address] [place] [address] Dr. Salvador Yung Platelet mean volume (Bld) [Entitic vol] 7.9 fL Critically low 9.5-13.5 [facility] Comment on above: Performed By: #### C BC #### [facility] [address] [place] [address] Dr. Salvador Yung PLT 223 103/ul Normal 150-450 [facility] Comment on above: Performed By: #### C BC #### [facility] [address] [place] [address] Dr. Salvador Yung RBC 4.52 106/ul Normal 4.20-5.40 [facility] Comment on above: Performed By: #### C BC #### [facility] [address] [place] [address] Dr. Salvador Yung WBC 7.5 103/ul Normal 4.0-11.0 [facility] Comment on above: Performed By: #### C BC #### [facility] [address] [place] [address] Dr. Salvador Yung IRONon 03-06-2022 Iron [Mass/Vol] 83.0 ug/dL Normal 50.0-170.0 [facility] Comment on above: Performed By: #### I ESTEFANY #### [facility] [address] [place] [address] Dr. Salvador Yung PROTIMEon 03-06-2022 INR Coag (PPP) [Relative time] 0.95 {INR} Normal [facility] Comment on above: Performed By: #### P TT, PT #### [facility] [address] [place] [address] Dr. Salvador Yung INR GUIDELINES SEE BELOW Normal [facility] Comment on above: Result Comment: YOJANA RED INR: 2.0 - 3.0 CONDITIONS NOT LISTED BELOW 2.5 - 3.5 FOR PROSTHETIC HEART VALVE REPLACEMENT 2.5 - 3.5 RECURRENT THROMBOSIS Performed By: #### P TT, PT #### [facility] [address] [place] [address] Dr. Salvador Yung PT Coag (PPP) [Time] 10.3 s Normal 9.0-11.6 [facility] Comment on above: Performed By: #### P TT, PT #### [facility] [address] [place] [address] Dr. Salvador Yung PTTon 03-06-2022 aPTT Coag (Bld) [Time] 22.1 s Critically low 22.3-36.2 [facility] Comment on above: Performed By: #### P TT, PT #### [facility] [address] [place] [address] Dr. Salvador Yung SCREENING MAMMOGRAM W/DANIEL, BILATERAL*on [...] IS VERY IMPORTANT TO YOUR HEALTH. CURRENT [employer] GUIDELINES RECOMMENDS ANNUAL MAMMOGRAPHY BEGINNING AT AGE 41. THIS FACILITY USUALLY USES A REMINDER SYSTEM TO ENSURE ALL POSITIONS RECEIVED REMINDER NOTIFICATIONS AT THE TIME BASED ON THE RECOMMENDATIONS OF THIS EXAM. Report reported and signed by Julio Martines on 02/28/2022 1602 Normal [facility] Covid-19 PCR (CVDTBH)on 12-19 SARS-CoV-2 (COVID-19) RNA VIVIANA+probe Ql (Unsp spec) Not detected Normal NOT DETECTED [facility] Comment on above: Result Comment: This test is not yet approved or cleared by the [place] FDA. When there are no FDA-approved or cleared tests available, and other criteria are met, FDA can make tests available under an emergency access mechanism called an Emergency Use Authorization (EUA). The EUA for this test is supported by the [place] of Health and Human Service's (HHS's) declaration [...] SARS-CoV-2. Performed By: #### P OCGLUC #### [facility] [address] [place] [address] Dr. Salvador Yung MRI LSKENTWOOD WO CONon 12-11-19 MRI LSPINE WO CON HISTORY: Chronic low back pain with left leg pain. Prior low back surgery. Lumbar disc disease. MRI LSPINE WO CON: 12/09/2021 10:11 AM EDT COMPARISON: MRI [...] SARA LAUREN Date: 2021-12-10 12:11 Normal [facility] COVID-19 Positive/Negativeon 05-04-2020 COVID-19 Positive/Negative Negative Negative [facility] Comment on above: Testing for SARS-CoV -2 by RT-PCRThis test was developed and its performance characteristics determined by [employer] and validated at the [facility]. This test has not been FDA cleared [...] Otheron 05-04-2020 Coronavirus 2019 PCR Interp N/A [facility] Automated basophil %on 04-24 Basophils/100 WBC (Bld) 0.6 % [facility] Automated basophil counton 0 04-24-2020 Basophils (Bld) [#/Vol] 0.0 10*3/uL 0.0-0.2 [facility] Automated blood lymphocyte c ount (number/volume)on 04-24-2020 Lymphocytes (Bld) [#/Vol] 1.0 10*3/uL 1.00-4.8 [facility] Automated blood lymphocyte c ount as percentage of total leukocyteson 04-24-2020 Lymphocytes/100 WBC (Bld) 17.0 % [facility] Automated blood monocyte cou nton 04-24-2020 Monocytes (Bld) [#/Vol] 0.3 10*3/uL 0.0-0.8 [facility] Automated blood platelet cou nt (count/volume)on 04-24-2020 Platelets (Bld) [#/Vol] 224 10*3/uL 150-450 [facility] Automated blood platelet vikki n volume measurementon 04-24-2020 Platelet mean volume (Bld) [Entitic vol] 7.2 fL 6.3-10.7 [facility] Automated eosinophil %on Eosinophils/100 WBC (Bld) 3.5 % [facility] Automated eosinophil counton 04-24-2020 Eosinophils (Bld) [#/Vol] 0.2 10*3/uL 0.0-0.45 [facility] Automated erythrocyte distri bution width ratioon 04-24-2020 Erythrocyte distribution width (RBC) [Ratio] 13.0 % 11.9-15.3 [facility] Automated erythrocyte mean c orpuscular hemoglobin (mass per erythrocyte)on 04-24-2020 MCH (RBC) [Entitic mass] 27.7 pg 24.7-34.3 [facility] Automated erythrocyte mean c orpuscular hemoglobin concentration measurement (mass/volon 04-24-2020 MCHC (RBC) [Mass/Vol] 33.2 g/dL 32.0-35.0 [facility] Automated erythrocyte mean c orpuscular volumeon 04-24-2020 MCV (RBC) [Entitic vol] 83.3 fL 80-100 [facility] Automated erythrocytes count in urine sediment (number/area)on 04-24-2020 RBC Auto (Urine sed) [#/Area] None seen [HPF] [facility] Automated leukocytes count i n urine sediment (number/area)on 04-24-2020 WBC Auto (Urine sed) [#/Area] 0-1 [HPF] [facility] Automated monocyte %on 04-24 Monocytes/100 WBC (Bld) 6.1 % [facility] Automated neutrophil %on Neutrophils/100 WBC (Bld) 72.8 % [facility] Automated urine color determ inationon 04-24-2020 Color (U) Yellow Yellow [facility] Blood erythrocytes automated count (number/volume)on 04-24-2020 RBC (Bld) [#/Vol] 4.50 10*6/uL 3.60-5.00 [facility] Blood hemoglobin measurement (mass/volume)on 04-24-2020 Hemoglobin (Bld) [Mass/Vol] 12.5 g/dL 11.8-15.4 [facility] Blood leukocytes automated c ount (number/volume)on 04-24-2020 WBC (Bld) [#/Vol] 5.7 10*3/uL 3.8-11.6 [facility] Blood neutrophil count by au tomated method (number/volume)on 04-24-2020 Neutrophils (Bld) [#/Vol] 4.2 10*3/uL 1.8-7.7 [facility] Estimated glomerular filtrat ion rate (GFR) non- Americanon 04-24-2020 GFR/1.73 sq M predicted among non-blacks MDRD (S/P/Bld) [Vol rate/Area] mL/min/{1.73_m2} [facility] Hematocrit [Volume Fraction] of Blood by Automated counton 04-24-2020 Hematocrit (Bld) [Volume fraction] 37.5 % 34.0-46.4 [facility] Otheron 04-24-2020 GFR/1.73 sq M.predicted MDRD (S/P/Bld) [Vol rate/Area] mL/min/{1.73_m2} [facility] Comment on above: GFR estimated refere nce range: According to KDOQI guidelines, <60 ml/min/1.73m2 is sufficient to diagnose a patient with chronic kidney disease. Nucleated RBC/100 WBC (Bld) [Ratio] 0.1 % 0-0.5 [facility] Creatinine Clearance (Chem N/A [facility] Serum or plasma calcium kelly urement (mass/volume)on 04-24-2020 Calcium [Mass/Vol] 9.3 mg/dL 8.2-10.2 [facility] Serum or plasma chloride vikki surement (moles/volume)on 04-24-2020 Chloride [Moles/Vol] 101 mmol/L 95-114 [facility] Serum or plasma creatinine m easurement with calculation of estimated glomerular filtron 04-24-2020 Creatinine [Mass/Vol] 0.88 mg/dL 0.44-1.03 [facility] Serum or plasma glucose kelly urement (mass/volume)on 04-24-2020 Glucose [Mass/Vol] 116 mg/dL 70-100 [facility] Comment on above: ADA recommended refe rence rangeRandom Glucose Reference Range is dependent on time and content of last meal. Glucose of more than 200 mg/dL in a nonstressed, ambulatory subject supports the diagnosis of Diabetes Mellitus. Serum or plasma potassium me asurement (moles/volume)on 04-24-2020 Potassium [Moles/Vol] 3.8 mmol/L 3.5-5.1 [facility] Serum or plasma sodium measu rement (moles/volume)on 04-24-2020 Sodium [Moles/Vol] 136 mmol/L 136-146 [facility] Serum or plasma total carbon dioxide measurement (moles/volume)on 04-24-2020 CO2 [Moles/Vol] 23.1 mmol/L 22.0-30.[address] [facility] Serum or plasma urea nitroge n measurement (mass/volume)on 04-24-2020 Urea nitrogen [Mass/Vol] 10 mg/dL 9-23 [facility] Specific gravity of Urine by Automated test stripon 04-24-2020 Specific gravity (U) [Rel density] 1.007 1.001-1.03 0 [facility] Squamous epithelial cells de tection in urine sediment by light microscopyon 04-24-2020 Epithelial cells.squamous LM Ql (Urine sed) None seen [HPF] [facility] Urinalysison 04-24-2020 Hyaline casts LM Ql (Urine sed) None seen [LPF] [facility] Urine bacteria detection by automated methodon 04-24-2020 Bacteria Auto Ql (U) None seen None Seen [facility] Urine clarity by refractomet ry automatedon 04-24-2020 Clarity Refractometry automated (U) Clear Clear [facility] Urine glucose measurement by automated test strip (mass/volume)on 04-24-2020 Glucose Auto test strip (U) [Mass/Vol] Normal mg/dL Normal [facility] Urine hemoglobin detection b y automated test stripon 04-24-2020 Hemoglobin Auto test strip Ql (U) Negative Negative [facility] Urine ketones measurement by automated test strip (mass/volume)on 04-24-2020 Ketones (U) [Mass/Vol] Negative Negative [facility] Urine leukocyte esterase det ection by automated test stripon 04-24-2020 Leukocyte esterase Auto test strip Ql (U) 1+ Negative [facility] Urine nitrite detection by t est stripon 04-24-2020 Nitrite Ql (U) Negative Negative [facility] Urine pH measurement by auto mated test stripon 04-24-2020 pH (U) 5.5 [pH] 5.0-9.0 [facility] Urine protein measurement by automated test strip (mass/volume)on 04-24-2020 Protein (U) [Mass/Vol] Negative Negative [facility] Urine total bilirubin detect ion by test stripon 04-24-2020 Bilirubin Ql (U) Negative Negative [facility] Urine urobilinogen measureme nt by automated test strip (mass/volume)on 04-24-2020 Urobilinogen (U) [Mass/Vol] Normal mg/dL Normal [facility] CT L-SPINE WO CONTRASTon CT L-SPINE WO CONTRAST Patient Name: LEELEE CEDILLO STUDY: CT L-SPINE WO CONTRAST;; 10/13/2018 12:05 pm INDICATION: Low back pain LUMBAGO. COMPARISON: None. ACCESSION NUMBER(S): [id number] ORDERING CLINICIAN: HAMLET GILMAN TECHNIQUE: Axial sections [...] combination with facet joint arthropathy noted causing zkmy-ev-mzwxyvvn left neural foramina narrowing. Transpedicular screws of [...] left lateral recess, left neural foramina and dtxv-qe-cgjprcjh right neural foramina narrowing. IMPRESSION: Postoperative and [...] loosening. Electronically signed by: PATRICIA MURRAY MD Normal [facility] SPINE, ENTIRE THORACIC/LUMBA R, INCLUDE SKULL, CERVICAL [...] pm INDICATION: LUMBAGO. COMPARISON: None ACCESSION NUMBER(S): [id number]; [id number] ORDERING CLINICIAN: HAMLET GILMAN FINDINGS: Long radiograph [...] acuity. Electronically signed by: ADELE BA MD Normal [facility] SPINE, LUMBOSACRAL; CMPLT(BE NDING)on 10-13-2018 SPINE, LUMBOSACRAL; CMPLT(BENDING) Patient Name: LEELEE CEDILLO STUDY: SPINE, ENTIRE THORACIC/LUMBAR, INCLUDE SKULL, CERVICAL ANSD SACRAL SPINE WHEN PERFORMED 2 OR 3 VIEW; SPINE, LUMBOSACRAL CMPLT(BENDING); 10/13/2018 12:05 pm INDICATION: LUMBAGO. COMPARISON: None ACCESSION NUMBER(S): [id number]; [id number] ORDERING CLINICIAN: HAMLET GILMAN FINDINGS: Long radiograph [...] acuity. Electronically signed by: ADELE BA MD Normal [facility] DX-XR Knee Complete 4+ Views Left IMPORTon 01-12-2017 DX-XR Knee Complete 4+ Views Left IMPORT Images were obtained outside of [facility] [id number] Normal [facility] DX-XR Knee Complete 4+ Views Right IMPORTon 01-12-2017 DX-XR Knee Complete 4+ Views Right IMPORT Images were obtained outside of [facility] [id number] Normal [facility] DX-XR Spine Lumbosacral 2 or 3 Views IMPORTon 01-12-2017 DX-XR Spine Lumbosacral 2 or 3 Views IMPORT Images were obtained outside of [facility] [id number] Normal [facility] CNOVon 01-07-2017 CNOV Office Visit (NEUSFT) LEELEE CEDILLO ([id number]) 1950 FDate Time Provider Department01/07/17 2:50 PM BRUCE MATHEW During your visit today, we recorded the following information about you: Pulse Respiration Blood pressure Weight 77/minute 20/minute 158/74 107.5 kg Height 1.753 Bay Mathew MD 01/07/2017 5:15 PM [facility] SURGERY OUTPATIENT CONSULTSERVICE DATE: 01/07/2017PCP: BOBO SueroLAWRENCE PROVIDER:Sara Vick [id number] [facility] [id number] requested for an opinion regarding the evaluation [...] SURGICAL HISTORYProcedure Laterality Date- BACK SURGERY HX 2014 L4-5 PSFI, [facility] 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 Mention ofappointment with Dr. Dickerson [id number]. This was her third referral as ofJanuary 20, 2017. A fourth referral was made to our office.Progress note from Dr. Marin dated December 24, 2016 regarding rash on her backand MRI findingsNEURO TESTS:NoneDATA REVIEWImaging and outside records reviewed and [facility] without. Status post [...] Medical Spine Intervention3. Follow up: Following aboveSIGNATURE: Burce Mathew MD PATIENT NAME: Leelee Alicea: January 07, 2017 : 3:17 PM PAGER:Bruce Mathew MD 01/07/2017 3:53 PM SignedLUMBAR DISC HERNIATIONReferring Provider: SARA VICK [[id number]]Allergies As of Date: 01/07/2017 Noted Allergy ReactionSULFA [...] TO PAIN MGT ANESTHESIA [[id number]] Order #: [id number]: 1 XR LUMBAR LIMITED 2V AP/LAT [[id number]] Order #: [id number] FUTURE XR KNEE GENERAL 4V AP BOTH/PA BOTH/LAT/MERC LT [[id number]] Order #: [id number] FUTURE XR KNEE GENERAL 4V AP BOTH/PA BOTH/LAT/MERC RT [[id number]] Order #: [id number] FUTUREPrescriptions as of 01/07/2017 Sig: PANTOPRAZOLE 40 [...] on file.Follow-up and Disposition History RecordedEncounter Number: [id number] Status:Closed by BRUCE MATHEW MD on 01/07/17 [facility] PROGRESSon 01-07-2017 PROGRESS HNO ID: [id number] thor: Bruce MathewService: (none)Author Type: PhysicianType: Progress NotesFiled: 01/07/2017 5:15 PMNote Text:SPINE SURGERY OUTPATIENT CONSULTSERVICE DATE: 01/07/2017PCP: BOBO SueroEFERRING PROVIDER:Sara Vick [id number] [facility] [id number] requested for an opinion regarding the evaluation [...] HX 2013 L4-5 PSFI, [facility]. 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 Mention ofappointment with Dr. Dickerson [id number]. This was her third referral as ofJanuary 20, 2017. A fourth referral was made to our office.Progress note from Dr. Marin dated December 24, 2016 regarding rash on herback and MRI findingsNEURO TESTS:NoneDATA REVIEWImaging and outside records reviewed and findings are as [facility] and without. Status post [...] Alicea: January 07, 2017 : 3:17 PM PAGER: Normal [facility] MR-MRI L-SPINE WO/W CON IMPO RTon 12-19-2016 MR-MRI L-SPINE WO/W CON IMPORT Images were obtained outside of [facility] [id number] Normal [facility] DX-XR Hip 2-3 Views Left + P cristine IMPORTon 11-29-2016 DX-XR Hip 2-3 Views Left + Pelvis IMPORT Images were obtained outside of [facility] [id number] Normal [facility] DX-XR Spine Lumbosacral Mini mum 4 Views IMPORTon 11-29-2016 DX-XR Spine Lumbosacral Minimum 4 Views IMPORT Images were obtained outside of [facility] [id number] Normal [facility] Vital Signs Date Time Vital Sign Value Performing Clinician Facility 05-15-2023 09:00-0500 Body weight 90.18 kg Larry Stephanie Other [facility] Other 05-15-2023 09:00-0500 Diastolic blood pressure 86 mm[Hg] Larry Brown Other [facility] Other 05-15-2023 09:00-0500 SaO2% (BldA) [Mass fraction] 99 % Larry Brown Other [facility] Other 05-15-2023 09:00-0500 Systolic blood pressure 148 mm[Hg] Larry Brown Other [facility] Other 05-13-2023 11:15-0500 Body height 175.26 cm Kiran Kessler Other [facility] Other 05-13-2023 11:15-0500 Body mass index (BMI) [Ratio] 29.24 kg/m2 Kiran Kessler Other [facility] Other 05-13-2023 11:15-0500 Body temperature 96.9 [degF] iKran Kessler Other [facility] Other 05-13-2023 11:15-0500 Body weight 89.81 kg Kiran Kessler Other [facility] Other 05-13-2023 11:15-0500 Diastolic blood pressure 80 mm[Hg] Kiran Kessler Other [facility] Other 05-13-2023 11:15-0500 SaO2% (BldA) [Mass fraction] 99 % Kiran Kessler Other [facility] Other 05-13-2023 11:15-0500 Systolic blood pressure 140 mm[Hg] Kiran Kessler Other [facility] Other 04-03-2023 10:15-0500 Body height 175.26 cm Larry Stephanie Other [facility] Other 04-03-2023 10:15-0500 Diastolic blood pressure 74 mm[Hg] Larry Brown Other [facility] Other 04-03-2023 10:15-0500 SaO2% (BldA) [Mass fraction] 99 % Larryrandy Brown Other [facility] Other 04-03-2023 10:15-0500 Systolic blood pressure 118 mm[Hg] Larry Brown Other [facility] Other 03-25-2023 11:05-0500 Diastolic blood pressure 75 mm[Hg] MD Sara Vick Work Phone: [facility] 03-25-2023 11:05-0500 Heart rate 72 /min MD Sara Vick Work Phone: [facility] 03-25-2023 11:05-0500 Respiratory rate 18 /min MD Sara Vick Work Phone: [facility] 03-25-2023 11:05-0500 SaO2% (BldA) [Mass fraction] 97 % MD Sara Vick Work Phone: [facility] 03-25-2023 11:05-0500 Systolic blood pressure 146 mm[Hg] MD Sara Vick Work Phone: [facility] 03-25-2023 10:27-0500 Inhaled oxygen flow rate 3 L/min MD Sara Vick Work Phone: [facility] 03-25-2023 10:14-0500 Body height 173.99 cm MD Sara Vick Work Phone: [facility] 03-25-2023 10:14-0500 Body weight 88.45 kg MD Sara Vick Work Phone: [facility] 01-27-2023 14:30-0400 Body height 175.26 cm Dominique Shane Other [facility] Other 01-27-2023 14:30-0400 Diastolic blood pressure 70 mm[Hg] Dominique Shane Other [facility] Other 01-27-2023 14:30-0400 SaO2% (BldA) [Mass fraction] 98 % Dominique Shane Other [facility] Other 01-27-2023 14:30-0400 Systolic blood pressure 118 mm[Hg] Dominique Shane Other [facility] Other 01-09-2023 10:15-0400 Body height 175.26 cm Larry Brown Other [facility] Other 01-09-2023 10:15-0400 Body mass index (BMI) [Ratio] 29.56 kg/m2 Larry Brown Other [facility] Other 01-09-2023 10:15-0400 Body weight 90.81 kg Larry Brown Other [facility] Other 01-09-2023 10:15-0400 Diastolic blood pressure 78 mm[Hg] Larry Brown Other [facility] Other 01-09-2023 10:15-0400 SaO2% (BldA) [Mass fraction] 98 % Larry Brown Other [facility] Other 01-09-2023 10:15-0400 Systolic blood pressure 130 mm[Hg] Larry Brown Other [facility] Other 12-12-2022 09:30-0400 Body height 175.26 cm Larry Brown Other [facility] Other 12-12-2022 09:30-0400 Body mass index (BMI) [Ratio] 29.77 kg/m2 Larry Brown Other [facility] Other 12-12-2022 09:30-0400 Body weight 91.45 kg Larry Brown Other [facility] Other 12-12-2022 09:30-0400 Diastolic blood pressure 74 mm[Hg] Larry Brown Other [facility] Other 12-12-2022 09:30-0400 SaO2% (BldA) [Mass fraction] 99 % Larry Brown Other [facility] Other 12-12-2022 09:30-0400 Systolic blood pressure 122 mm[Hg] Larry Brown Other [facility] Other 09-19-2022 12:00-0400 Body height 175.26 cm Larry Brown Other [facility] Other 09-19-2022 12:00-0400 Body mass index (BMI) [Ratio] 30.8 kg/m2 Larry Brown Other [facility] Other 09-19-2022 12:00-0400 Body weight 94.62 kg Larry Brown Other [facility] Other 09-19-2022 12:00-0400 SaO2% (BldA) [Mass fraction] 95 % Larry Brown Other [facility] Other 09-18-2022 10:40-0400 Body height 172.7 cm Perfecto Burch MD Work Phone: [facility] 09-18-2022 10:40-0400 Body mass index (BMI) [Ratio] 31.26 kg/m2 Perfecto Burch MD Work Phone: [facility] 09-18-2022 10:40-0400 Body temperature 96.4 [degF] Perfecto Burch MD Work Phone: [facility] 09-18-2022 10:40-0400 Body weight 93.26 kg Perfecto Burch MD Work Phone: [facility] 07-27-2022 15:38-0400 Hourly Rounding Francisco Ottoniel [facility] 07-27-2022 15:38-0400 Promise to Return Francisco Ottoniel [facility] 07-27-2022 14:38-0400 Hourly Rounding Francisco Ottoniel [facility] 07-27-2022 14:38-0400 Promise to Return Francisco Ottoniel [facility] 07-27-2022 13:38-0400 Hourly Rounding Francisco Ottoniel [facility] 07-27-2022 13:38-0400 Promise to Return Francisco Ottoniel [facility] 07-27-2022 12:08-0400 Heart rate 106 /min Francisco Ottoniel [facility] 07-27-2022 12:08-0400 SaO2% (BldA) [Mass fraction] 100 % Francisco Ottoniel [facility] 07-27-2022 12:07-0400 Diastolic blood pressure 79 mm[Hg] Francisco Ottoniel [facility] 07-27-2022 12:07-0400 Mean blood pressure 103 mm[Hg] Francisco Ottoniel [facility] 07-27-2022 12:07-0400 Systolic blood pressure 151 mm[Hg] Francisco Ottoniel [facility] 07-27-2022 12:06-0400 Body temperature 97.16 [degF] Francisco Ottoniel [facility] 07-27-2022 07:46-0400 Heart rate 82 /min Francisco Ottoniel [facility] 07-27-2022 07:46-0400 SaO2% (BldA) [Mass fraction] 97 % Francisco Ottoniel [facility] 07-27-2022 07:46-0400 Diastolic blood pressure 81 mm[Hg] Francisco Ottoniel [facility] 07-27-2022 07:46-0400 Mean blood pressure 116 mm[Hg] Francisco Ottoniel [facility] 07-27-2022 07:46-0400 Systolic blood pressure 186 mm[Hg] Francisco Ottoniel [facility] 07-27-2022 07:45-0400 Body temperature 97.52 [degF] Francisco Ottoniel [facility] 07-27-2022 01:46-0400 Heart rate 89 /min Francisco Ottoniel [facility] 07-27-2022 01:46-0400 SaO2% (BldA) [Mass fraction] 96 % Francisco Ottoniel [facility] 07-27-2022 01:45-0400 Diastolic blood pressure 67 mm[Hg] Francisco Ottoniel [facility] 07-27-2022 01:45-0400 Mean blood pressure 89 mm[Hg] Francisco Ottoniel [facility] 07-27-2022 01:45-0400 Systolic blood pressure 134 mm[Hg] Francisco Ottoniel [facility] 07-27-2022 01:45-0400 Body temperature 98.06 [degF] Francisco Ottoniel [facility] 07-27-2022 01:45-0400 Blood Pressure Location Francisco Ottoniel [facility] 07-27-2022 01:45-0400 Respiratory rate 18 /min Francisco Ottoniel [facility] 07-26-2022 20:00-0400 Respiratory rate 16 /min Francisco Ottoniel [facility] 07-26-2022 17:20-0400 Blood Pressure Location Francisco Ottoniel [facility] 07-26-2022 17:20-0400 Heart rate 78 /min Francisco Ottoniel [facility] 07-26-2022 15:30-0400 Respiratory rate 12 /min Francisco Ottoniel [facility] 07-26-2022 15:00-0400 Mean blood pressure 122 mm[Hg] Francisco Ottoniel [facility] 07-26-2022 15:00-0400 Respiratory rate 8 /min Francisco Ottoniel [facility] 07-26-2022 14:30-0400 Mean blood pressure 112 mm[Hg] Francisco Ottoniel [facility] 07-26-2022 14:30-0400 Respiratory rate 12 /min Francisco Ottoniel [facility] 07-26-2022 13:30-0400 Mean blood pressure 95 mm[Hg] Francisco Ottoniel [facility] 07-26-2022 11:35-0400 gluc 105 mg/dL Francisco Ottoniel [facility] 07-26-2022 11:35-0400 gluc Francisco Ottoniel [facility] 07-26-2022 11:35-0400 Heart rate 72 /min Francisco Ottoniel [facility] 07-26-2022 11:35-0400 Respiratory rate 18 /min Francisco Ottoniel [facility] 05-02-2022 10:00-0500 Body height 175.26 cm Larry Brown Other [facility] Other 05-02-2022 10:00-0500 Body mass index (BMI) [Ratio] 31.89 kg/m2 Larry Brown Other [facility] Other 05-02-2022 10:00-0500 Body weight 97.98 kg Larry Brown Other [facility] Other 05-02-2022 10:00-0500 Diastolic blood pressure 80 mm[Hg] Larry Brown Other [facility] Other 05-02-2022 10:00-0500 Systolic blood pressure 134 mm[Hg] Larry Brown Other [facility] Other 03-08-2022 17:00-0500 Diastolic blood pressure 117 mm[Hg] Wm Yakov [facility] 03-08-2022 17:00-0500 Mean blood pressure 131 mm[Hg] Wm Yakov [facility] 03-08-2022 17:00-0500 SaO2% (BldA) [Mass fraction] 95 % Wm Yakov [facility] 03-08-2022 17:00-0500 Systolic blood pressure 160 mm[Hg] Wm Yakov [facility] 03-08-2022 16:30-0500 Diastolic blood pressure 85 mm[Hg] Wm Yakov [facility] 03-08-2022 16:30-0500 Heart rate 75 /min Wm Yakov [facility] 03-08-2022 16:30-0500 Mean blood pressure 94 mm[Hg] Wm Yakov [facility] 03-08-2022 16:30-0500 Respiratory rate 15 /min Wm Yakov [facility] 03-08-2022 16:30-0500 SaO2% (BldA) [Mass fraction] 98 % Wm Yakov [facility] 03-08-2022 16:30-0500 Systolic blood pressure 112 mm[Hg] Wm Yakov [facility] 03-08-2022 16:10-0500 Diastolic blood pressure 74 mm[Hg] Wm Yakov [facility] 03-08-2022 16:10-0500 Heart rate 93 /min Wm Yakov [facility] 03-08-2022 16:10-0500 Mean blood pressure 90 mm[Hg] Wm Yakov [facility] 03-08-2022 16:10-0500 Respiratory rate 14 /min Wm Yakov [facility] 03-08-2022 16:10-0500 SaO2% (BldA) [Mass fraction] 98 % Wm Yakov [facility] 03-08-2022 16:10-0500 Systolic blood pressure 122 mm[Hg] Wm Yakov [facility] 03-08-2022 15:15-0500 Respiratory rate 18 /min Wm Yakov [facility] 03-08-2022 15:00-0500 Hourly Rounding Wm Yakov [facility] 03-08-2022 15:00-0500 Promise to Return Wm Yakov [facility] 03-08-2022 14:45-0500 Respiratory rate 20 /min Wm Yakov [facility] 03-08-2022 14:15-0500 Respiratory rate 20 /min Wm Yakov [facility] 03-08-2022 14:14-0500 Hourly Rounding Wm Yakov [facility] 03-08-2022 14:14-0500 Promise to Return Wm Yakov [facility] 03-08-2022 13:54-0500 Heart rate 99 /min Wm Nagy [facility] 03-08-2022 13:37-0500 Body temperature 97.7 [degF] Wm Nagy [facility] 03-08-2022 13:37-0500 Heart rate 104 /min Wm Nagy [facility] 03-08-2022 13:00-0500 Hourly Rounding Wm Nagy [facility] 03-08-2022 13:00-0500 Promise to Return Wm Nagy [facility] 03-07-2022 11:00-0500 Body height 175.26 cm Larry Brown Other [facility] Other 03-07-2022 11:00-0500 Body mass index (BMI) [Ratio] 32.54 kg/m2 Larry Brown Other [facility] Other 03-07-2022 11:00-0500 Body weight 99.97 kg Larry Brown Other [facility] Other 03-07-2022 11:00-0500 SaO2% (BldA) [Mass fraction] 99 % Larry Brown Other [facility] Other 06-20-2017 09:19-0500 PAIN LEVEL 0 {score} Praveen Bynum 06-20-2017 06:29-0500 PAIN LEVEL 0 {score} Praveen Bynum 06-20-2017 06:25-0500 PAIN LEVEL 6 {score} Praveen Bynum 06-20-2017 06:21-0500 Body Temperature 98.1 [degF] Praveen Bynum 06-20-2017 06:21-0500 BP Diastolic 78 mm[Hg] Praveen Bynum 06-20-2017 06:21-0500 BP Systolic 143 mm[Hg] Praveen Bynum 06-20-2017 06:21-0500 Pulse (Heart Rate) 90 /min Praveen hernandez 06-20-2017 06:21-0500 Pulse Oximetry 99 % Praveen Bynum 06-20-2017 06:21-0500 Respiratory Rate 20 /min Praveen Bynum 06-20-2017 00:38-0500 PAIN LEVEL 0 {score} Praveen Bynum 06-19-2017 20:44-0500 PAIN LEVEL 9 {score} Praveen Bynum 06-19-2017 20:43-0500 PAIN LEVEL 8 {score} Praveen yBnum 06-19-2017 18:47-0500 Body Temperature 97.9 [degF] Praveen [...] Praveen Bynum 06-19-2017 16:04-0500 Height 175.26 cm Praveen Bynum 06-19-2017 15:43-0500 Body Temperature 98 [degF] [...] Bynum 06-19-2017 09:24-0500 Body Temperature 98 [degF] Prvaeen Bynum 06-19-2017 08:09-0500 Weight 103.69 kg Praveen [...] Date Encounter Type Care Provider Facility Start: 05-22-2023 End: 05-22-2023 ambulatory Sara Vick Facility:[facility] Start: 05-22-2023 End: 05-22-2023 ambulatory MD Sara Vick Work Phone: [facility] Work Phone: Start: 05-22-2023 End: 05-22-2023 Patient encounter procedure MD Sara Vick Work Phone: [facility] [place] Work Phone: Start: 05-20-2023 ambulatory Sara Vick Facility: [facility] Start: 05-20-2023 Registered Recurring MD Gideon Vick Work Phone: [facility]-Clinical [employer] Special[employer] [address] Start: 05-15-2023 End: 05-15-2023 ambulatory Larry Brown Other [facility] Other Start: 05-15-2023 Office outpatient vi sit 25 minutes Larryrandy Brown [facility] [place] Start: 05-13-2023 End: 05-13-2023 ambulatory Kiran Kessler Other [facility] Other Start: 05-13-2023 Office outpatient ne w 60 minutes Kiran Kessler [facility] Start: 04-16-2023 End: 04-16-2023 ambulatory Dominique Shane Other [facility] Other Start: 04-16-2023 Telephone encounter Dominique Shane [facility] Start: 04-03-2023 End: 04-03-2023 ambulatory Larry Brown Other [facility] Other Start: 04-03-2023 Office outpatient vi sit 15 minutes Larry Stephanie [facility] [place] Start: 04-03-2023 End: 04-03-2023 Patient encounter procedure MD Sara Vick Work Phone: [facility] [place] Work Phone: Start: 03-25-2023 (PROC) PROCEDURE Larry Brown [facility] Start: 03-25-2023 End: 03-25-2023 ambulatory Sara Vick Facility:[facility] Start: 03-25-2023 End: 03-25-2023 Admission to same day surgery center MD Sara Vick Work Phone: [facility]-Digestive [facility] Work Phone: Start: 03-25-2023 End: 03-25-2023 ambulatory MD Sara Vick Work Phone: [facility] Work Phone: Start: 03-06-2023 End: 03-06-2023 Patient encounter procedure MD Sara Vick Work Phone: [facility] [place] Work Phone: Start: 02-10-2023 End: 02-10-2023 ambulatory Dominique Shane Other [facility] Other Start: 02-10-2023 Telephone encounter Dominique Shane [facility] Start: 01-27-2023 End: 01-27-2023 ambulatory Dominique Shane Other [facility] Other Start: 01-27-2023 Office outpatient vi sit 25 minutes Dominique Shane [facility] [place] Start: 01-27-2023 Telephone encounter Larryrandy Brown [facility] Start: 01-09-2023 End: 01-09-2023 ambulatory Larry Brown Other [facility] Other Start: 01-09-2023 Office outpatient vi sit 25 minutes Larryrandy Brown [facility] [place] Start: 12-12-2022 End: 12-12-2022 ambulatory Larry Brown Other [facility] Other Start: 12-12-2022 Office outpatient vi sit 25 minutes Larryrandy Brown [facility] [place] Start: 11-22-2022 End: 11-22-2022 Emergency department patient visit Flavio Castillo Facility[place] Start: 09-19-2022 End: 09-19-2022 ambulatory Larry Brown Other [facility] Other Start: 09-19-2022 Office outpatient vi sit 25 minutes Larry Stephanie [facility] [place] Start: 09-18-2022 ambulatory [facility] Start: 09-18-2022 End: 09-18-2022 Office outpatient new 30 minutes Perfecto Burch MD Work Phone: [facility] Comment on above: 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, sequela (Primary Dx) Start: 09-18-2022 End: 09-18-2022 Subsequent hospital visit by physician Perfecto Burch MD Work Phone: [facility] Start: 09-17-2022 ambulatory ADELE FLEMING Faci lity:[facility] Start: 09-10-2022 End: 09-10-2022 ambulatory Larry Brown Facility:[facility] Start: 09-09-2022 End: 09-10-2022 ambulatory ADELE FLEMING Facility:[facility] Start: 09-08-2022 End: 09-09-2022 ambulatory Alley Naranjo Facility:[facility] Start: 08-18-2022 End: 08-19-2022 ambulatory ADELE FLEMING Facility:[facility] Start: 08-13-2022 ambulatory [facility] Start: 08-12-2022 End: 08-13-2022 ambulatory ADELE FLEMING Facility:[facility] Start: 08-08-2022 End: 08-09-[address] ALFRED UMAÑA Facility:[facility] Start: 08-01-2022 End: 08-02-2022 ambulatory ADELE FLEMING Facility:[facility] Start: 07-26-2022 End: 07-27-2022 ambulatory Julio Ferrara Facility:[facility] Start: 07-26-2022 End: 07-27-2022 Observation Francisco Alcazar [facility] Start: 07-25-2022 Encounter for preprocedural cardiovascular examination ADELE FLEMING [facility] Start: 07-25-2022 Encounter for preprocedural laboratory examination ADELE FLEMING [facility] Start: 07-24-2022 End: 07-25-2022 ambulatory ADELE FLEMING Facility:[facility] Start: 07-24-2022 End: 07-24-2022 ambulatory ADELE Clary FLEMING Facility:[facility] Start: 07-18-2022 End: 07-19-2022 ambulatory ADELE FLEMING Facility:[facility] Start: 07-18-2022 End: 07-19-2022 Encounter for preprocedural cardiovascular examination ADELE FLEMING Facility:[facility] Start: 07-08-2022 End: 07-09-2022 ambulatory ADELE FLEMING Facility:[facility] Start: 07-01-2022 End: 07-02-[address] ALFRED UMAÑA Facility:[facility] Start: 06-24-2022 End: 06-25-2022 ambulatory ADELE FLEMING Facility:[facility] Start: 06-19-2022 End: 06-20-[address] ALFRED UMAÑA Facility:[facility] Start: 06-19-2022 End: 06-19-2022 ambulatory Sara Vick Facility:[facility] Start: 06-19-2022 End: 06-19-2022 ambulatory MD Sara Vick Work Phone: [facility] Work Phone: Start: 06-19-2022 End: 06-19-2022 Discharged Recurring MD Sara Vick Work Phone: [facility]-Physical Therapy [place] Work Phone: Start: 06-13-2022 End: 06-14-2022 ambulatory [...] Facility:[facility] Start: 05-02-2022 End: 05-02-2022 ambulatory Larry Brown Other [facility] Other Start: 05-02-2022 Office outpatient vi sit 25 minutes Larry Brown [facility] [place] Start: 05-01-2022 End: 05-02-2022 ambulatory ADELE Means [facility] Facility:[facility] Start: 04-22-2022 End: 04-23-2022 ambulatory [facility] Facility:[facility] Start: 04-14-2022 End: 04-15-2022 ambulatory DEEPALI JANSEN Facility:[facility] Start: 04-08-2022 (PROC) PROCEDURE Larry Brown [facility] Start: 04-08-2022 End: 04-08-2022 ambulatory Larry Brown Other [facility] Other Start: 03-31-2022 End: 04-01-[address] ALFRED UMAÑA Facility:[facility] Start: 03-08-2022 End: 03-08-2022 Emergency department patient visit Wm Nagy Facility:[facility] Start: 03-08-2022 End: 03-08-2022 Emergency department patient visit Wm Nagy [facility] Start: 03-07-2022 End: 03-07-2022 ambulatory Larry Brown Other [facility] Other Start: 03-07-2022 Office consultation new/estab patient 60 min Larry Brown [facility] [place] Start: 03-06-2022 End: 03-07-[address] SARA VICK . Facility:[facility] Start: 01-03-2022 End: 01-03-[address] SARA VICK . Facility:[facility] Start: 12-09-2021 End: 12-10-2021 ambulatory SHAWANDA LITTLE Facility:[facility] Start: 11-05-2021 End: 11-06-2021 ambulatory ADELE Clary OVIEDOJEANE Facility:[facility] Start: 10-07-2021 End: 10-07-2021 ambulatory PO SUAREZ . Facility:[facility] Start: 05-04-2020 End: 05-04-2020 Patient encounter procedure Sara Hoy -Pre-Surgical Testing Start: 05-02-2020 Registered Recurring Sara Vick -P hysical Therapy [place] Start: 04-24-2020 End: 04-24-2020 Patient encounter procedure Sara Hoy -Pre-Surgical Testing Start: 02-01-2020 End: 02-01-2020 Patient encounter procedure Sara Hoy -[facility] Start: 06-29-2018 Patient encounter procedure Sara~[id number] UNKNOWN Hoy Facility:[facility] Start: 12-11-2017 End: 12-12-2017 Patient encounter DEFAULT PHYSICIAN Facility:[facility] Start: 01-07-2017 End: 01-07-[address] [facility] [place] Procedures Date Procedure Procedure Detail Performing Clinician Start: 03-25-2023 Local anesthetic sac ral epidural block MD Sara Vick Work Phone: Start: 02-01-2020 Plain X-ray of femur Do uglas [place] Start: 02-01-2020 X-ray of right knee Juliet glas [place] Start: 05-11-2017 Injection of sacroil iac joint [...] f lumbar spine using fluoroscopic guidance Wm Yakov Comment on above: L5-S1 50% relief Start: 02-21-2013 Injection of facet j oint using fluoroscopic guidance Wm SpotMe Comment on above: bilateral L3-S1 FJI 50% relief Start: 01-21-2013 Injection of facet j oint using fluoroscopic guidance Wm Yakov Comment on above: bilateral L3-S1 FJI 0% relief that day, next day 40% relief and 50-60% relief Start: 01-03-2013 Epidural injection o f lumbar spine using fluoroscopic guidance Wm Nagy Comment on above: L5-S1 50% relief Start: 09-02-2012 Epidural injection o f lumbar spine using fluoroscopic guidance Wm Nagy Comment on above: L5-S1 left,, no reli ef, increased pain Start: 04-20-2011 Excision of ganglion cyst [place] Nagy Start: 07-03-2010 Decompression of med marcus nerve [place] Nagy Start: 07-03-2010 Repair of musculoten dinous cuff of shoulder Wm Nagy Start: 04-20-2007 Cholecystectomy Wm lara foot surgery right x3 [place] Nagy left GLORIA [place] Nagy Ligation of fallopian tube K josep Nagy Lumbar and lumbosacr al fusion by posterior technique Wm Yakov Comment on above: [address] Gilman, cleaned infection out 2nd surgery, infection spread removal of rib and higher fusion (3rd surgery) right knee scope wit h partial meniscectomy Wm Yakov Plan of Treatment Date Care Activity Detail Author Start: 05-22-2023 Pulse volume recorde r pneumoplethysmography US arterial pvr rest [facility] Start: 05-22-2023 [facility] Start: 05-22-2023 Duplex scan of lower limb vein s US venous duplex LE [facility] Start: 05-22-2023 US Lower extremity v ein - bilateral [facility] Start: 03-25-2023 [facility] Start: 01-28-2022 COVID-19 VACCINE (5 - Booster for Pfizer series) COVID-19 VACCINE (5 - Booster for Pfizer series) [facility] Start: 08-24-2019 Screening for malign ant neoplasm of breast MAMMOGRAM SCREENING DISCUSSION [facility] Start: 12-20-2001 Zoster vaccine hzv l jane for subcutaneous use ZOSTER (SHINGLES) VACCINE (1 of 2) [facility] Start: 12-20-1996 Screening for malign ant neoplasm of colon COLORECTAL CANCER SCREENING DISCUSSION [facility] Start: 1991 Lipid panel LIPID SCREENING [facility] Start: 12-20-1972 Screening for malign ant neoplasm of cervix CERVICAL CANCER SCREENING DISCUSSION [facility] Start: 12-20-1970 Third diphtheria, te tanus and acellular pertussis (DTaP) vaccination TDAP (ADULT) [facility] Start: 1950 Hepatitis C screening HEPATITI S C VIRUS SCREENING [facility] Start: 1950 Screening for osteoporosis DEX A SCAN DISCUSSION [facility] Start: 1950 Tetanus vaccination TETANUS [facility] Patient Education Stephanie Non Diagn ostic Block [facility] Work Phone: Patient referral [facility] Work Phone: XR Knee - left 3 Views XR KNEE L EFT 3 VIEWS Imaging Routine Pain in prosthetic joint, sequela Ordered: 09/16/2022 [facility] Comment on above: Ordered: 09/16/2022 XR Pelvis and Hip - left Views X R HIP WITH PELVIS LEFT Imaging Routine Pain in prosthetic joint, sequela 09/18/2022 10:11 AM EDT [facility] Work Phone: Immunizations Immunization Date Immunization Notes Care Provider Fa cility 07-12-2020 COVID-19, mRNA, LNP- S, PF, 30 mcg/0.3 mL dose Wm Nagy [facility] Comment on above: Reason for Medicatio n: Prophylaxis 06-14-2020 COVID-19, mRNA, LNP- S, PF, 30 mcg/0.3 mL dose Wm Nagy [facility] Comment on above: Reason for Medicatio n: Prophylaxis 02-18-2018 pneumococcal polysaccharide vaccine, 23 valent W[facility] [place] 06-18-2017 tuberculin skin test ; unspecified formulation Praveen Tirado Bynum 02-05-2017 pneumococcal conjuga te vaccine, 13 valent Wm Nagy [facility] 10-20-2012 pneumococcal polysaccharide vaccine, 23 valent [facility] [place] Payers Date Payer Category Payer Private Health Insurance 2022 Self-pay [id number] 2020 Unknown [id number] 2018 Medicare MEDICARE HUMANA HMO PPO MEDICARE HU[employer]NA HMO PPO [id number] 2018-Present [address] [place] [address] [id number] .[id number] 1959 Private Health Insurance [id number] 1951 Unknown [id number] 2.16.840.1.770080.3.579.2 .727 1951 Unknown [id number] 2.16.840.1.392994.3.579.2 .159 1951 Unknown [id number] 2.16.840.1.152608.3.579.2 .593 1951 Unknown [id number] 2.16.840.1.072869.3.579.2 .593 1951 Unknown [id number] 2.16.840.1.629988.3.579.2 .593 1951 Unknown [id number] 2.16.840.1.631914.3.579.2 .593 1951 Unknown [id number] 2.16.840.1.359635.3.579.2 .593 1951 Unknown [id number] 2.16.840.1.070667.3.579.2 .593 1951 Unknown [id number] 2.16.840.1.332448.3.579.2 .593 1951 Unknown [id number] 2.16.840.1.983161.3.579.2 .593 1951 Unknown [id number] 2.16.840.1.958239.3.579.2 .593 1951 Unknown [id number] 2.16.840.1.124557.3.579.2 .593 1951 Unknown [id number] 2.16.840.1.759608.3.579.2 .593 1951 Unknown [id number] 2.16.840.1.658177.3.579.2 .593 1951 Unknown [id number] 2.16.840.1.161957.3.579.2 .593 1951 Unknown [id number] 2.16.840.1.479631.3.579.2 .593 1951 Unknown [id number] 2.16.840.1.741191.3.579.2 .593 1951 Unknown [id number] 2.16.840.1.233289.3.579.2 .593 1951 Unknown [id number] 2.16.840.1.850419.3.579.2 .593 1951 Unknown [id number] 2.16.840.1.518732.3.579.2 .593 1951 Unknown [id number] 2.16.840.1.540030.3.579.2 .593 1951 Unknown [id number] 2.16.840.1.206235.3.579.2 .593 1951 Unknown [id number] 2.16.840.1.656829.3.579.2 .593 1951 Unknown [id number] 2.16.840.1.666819.3.579.2 .593 1951 Unknown [id number] 2.16.840.1.280024.3.579.2 .593 1951 Unknown [id number] 2.16.840.1.605745.3.579.2 .593 1951 Unknown [id number] 2.16.840.1.202042.3.579.2 .593 1951 Unknown [id number] 2.16.840.1.401051.3.579.2 .593 1951 Unknown [id number] 2.16.840.1.951107.3.579.2 .593 1951 Unknown [id number] 2.16.840.1.902893.3.579.2 .593 1951 Unknown [id number] 2.16.840.1.153086.3.579.2 .593 1951 Unknown [id number] 2.16.840.1.078454.3.579.2 .983 1951 Unknown [id number] 2.16.840.1.567388.3.579.2 .983 1951 Unknown [id number] 2.16.840.1.687021.3.579.2 .983 1951 Unknown [id number] 2.16.840.1.793416.3.579.2 .727 1951 Unknown [id number] 2.16.840.1.782152.3.579.2 .727 1951 Unknown [id number] 2.16.840.1.639151.3.579.2 .727 1951 Unknown [id number] 2.16840.1.419368.3.579.2 .727 Unknown Unknown [id number] Unknown [id number] Unknown [id number] 2.16840.1.207348.3.579.2 .531 Unknown [id number] 2.16840.1.609703.3.579.2 .531 Unknown [id number] 2.16840.1.706207.3.579.2 .531 Unknown [id number] 2.16840.1.685564.3.579.2 .531 Unknown [id number] 2.16840.1.404123.3.579.2 .531 Social History Date Type Detail Facility Start: 06-18-2017 Unknown if ever smoked [employer] Start: 04-24-2020 End: 05-07-2020 Tobacco smoking status NHIS Never smoked tobacco (finding) [facility] Start: 1950 Sex Assigned At Female F [facility] Sex Assigned At [facility] Start: 09-18-2022 Tobacco use and exposure Smokeless tobacco non-user [employer] Start: 09-18-2022 Alcohol intake Current drinke r of alcohol (finding) [employer] [facility] Start: 09-18-2022 Alcohol Comment occasional [facility] Start: 1950 Sex Assigned At Not on file [facility] [employer] [facility] Procedure Code Equipment Code Equipment Origin al Text Equipment Identifier Dates Arthroplasty, knee, total, minimally invasive Orthopaedic cement, non-medicated ()[id number] FDA Start: 05-07-2020 Arthroplasty, knee, total, minimally invasive Uncoated knee femur prosthesis, metallic ()[id number] FDA Start: 05-07-2020 Arthroplasty, knee, total, minimally invasive Tibial insert ()[id number] FDA Start: 05-07-2020 Arthroplasty, knee, total, minimally invasive Uncoated knee tibia prosthesis, metallic ()[id number] FDA Start: 05-07-2020 Arthroplasty, knee, total, minimally invasive Polyethylene patella prosthesis ()[id number] FDA Start: 05-07-2020 Goals Date Patient Goal Desired Activity /State Functional Status Date Assessment Result Facility 07-26-2022 Functional Status No [facility] 07-26-2022 Functional Status [facility] 03-08-2022 Functional Status No [facility] Clinical Notes 10-07-2021 to 05-15-2023 Note Date & Type Note Facility 05-15-2023 Evaluation note Encounter Date Diagnosis Assessment Notes Apr, Lumbar radiculopathy (ICD-10 - M54.16) 77 year old female here for follow up and medication refill for chronic pain. Patient voices complaints of left sided low back pain, denying radicular symptoms. Overall, she is doing very well following her recent caudal epidural steroid injection. In the future if her axial back pain persists we can consider SI vs lumbar facet medial branch RFA. In the meantime, she can continue taking [place] as needed all as well as Gabapentin as prescribed. Apr, Sacroiliitis (ICD-10 - M46.1) Stable, continue medication management for the time being. Apr, Lumbosacral spondylosis (ICD-10 - M47.817) Consider proceeding with a bilateral lumbar facet medial branch nerve blocks in the future if needed. Apr, Lumbar degenerative disc disease (ICD-10 - M51.36) Stable, follow up in 4 weeks for medication refill Apr, Chronic pain (ICD-10 - G89.29) Continue medication management. Apr, Other This documentation is being amended on 05/18/23 due to an internal data corruption event that occurred on 05/14/23. This data corruption event was NOT the result of any breach, fraud, or malicious third republican actors and no personal patient information was compromised. [facility] Other 01-24-2024 Evaluation note* Encounter Date Diagnosis Assessment Notes Treatment Notes Treatment Clinical Notes Apr, Venous stasis (ICD-10 - I87.8) Apr, Wound of right lower extremity, initial encounter (ICD-10 - S81.801A) This patient has suggested we start with arterial evaluation with PVRs to evaluate her arterial status to her lower extremities this may explain delayed wound healing as her peripheral pulses are diminished. Will also order full functional venous duplex to evaluate the valves in her legs. I will see her back and we will go over these results to formulate a plan for her care. She understands agrees with plan all questions were addressed. [facility] Other 12-28-2023 Evaluation note* Encounter Date Diagnosis Assessment Notes Treatment Notes Treatment Clinical Notes Mar, Lumbar radiculopathy (ICD-10 - M54.16) 72 year old female evaluated via telephonic call for follow up and medication refill for chronic pain. She voices complaints of low back pain with intermittent radiation down the right lower extremity. She continues taking [place] with relief and is requesting a refill of this today. I discussed different treatment options in detail with the patient. She feels medication is managing her pain and does not wish to proceed with injections at this time. I encouraged the patient to start physical therapy as previously discussed. She can also continue taking medications as prescribed and I will refill her S[place]ieve as she feels this provides an element [...] pain (ICD-10 - G89.29) Continue medication management. [facility] Other 12-15-2023 Evaluation note* Encounter Date Diagnosis [...] pain (ICD-10 - G89.29) Continue medication management. [facility] Other 10-24-2023 Evaluation note* Encounter Date Diagnosis Assessment Notes Treatment Notes Treatment Clinical Notes Jan, Lumbar radiculopathy (ICD-10 - M54.16) [facility] Other 10-10-2023 Evaluation note* Encounter Date Diagnosis [...] regarding this. Meanwhile, I will refill her S[place]ieve as it does provide an element of [...] educated on the risks and benefits of correction opioid use. Hydrocodone/Acetamin ophen was refilled today, opioid risk assessment was done as well as pill count. Patient is compliant with opioid medication. The patient denies any opioid related side effects. [facility] Other 09-22-2023 Evaluation note* Encounter Date Diagnosis [...] educated on the risks and benefits of correction opioid use. Hydrocodone/Aceta minophen was refilled today, opioid risk assessment was done as well as pill count. Patient is compliant with opioid medication. The patient denies any opioid related side effects. Patients last urine drug screen was positive for alcohol, she is counselled against consuming alcohol. [facility] Other 08-25-2023 Evaluation note* Encounter Date Diagnosis [...] M51.36) Stable, follow up in 4 weeks. [facility] Other 06-02-2023 Evaluation note* Encounter Date Diagnosis [...] nerve blocks in the future if needed. [facility] Other 06-01-2023 History of Present illness Narrative* Connie Ramirez LPN - 09/18/2022 10:10 AM EDT Ortho Nurse - Patient Intake Room#: 1--Visit today to have left hip pain evaluated. She had a Left GLORIA done in 10-18-[address] Dickerson. 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 Her pain in this hip is 3 today. She does have a history of back problems and has had many surgeries for her back. The last surgery for her back was . Date: 09/18/2022 10:58 AM Patient: Leelee Cedillo MR#: [id number] : 1950 Age: 71 y.o. Referring Physician: Sorin Dickerson DO Insurance: Payor: MEDICARE HUMANA HMO PPO / Plan: MEDICARE HUMANA HMO PPO [...] Date KNEE REPLACEMENT Right 04/2020 BACK SURGERY 2013 HIP REPLACEMENT Left 10/18/2012 SHOULDER SURGERY Right 2010 rotator cuff repair GALL BLADDER SURGERY 1999 BACK SURGERY 8-2454-8-2018- FOOT SURGERY [id number] Family History: Her family history is not [...] [x]cane, []bracing Are you followed by a spreader? [] [x] Name: Are you followed by pain management? [x] [] Name: Dr. Low---[place] Are you followed by any other specialists? [x] [] Name: Dr. Pond-- [place] [facility] Medications Prior to Visit Medication Sig Dispense Refill alendronate 70 MG tablet Cholecalciferol 50 MCG (1999 [place]) capsule 1 capsule. furOSEmide 20 MG tablet [...] back operations with last one being in Sept, 2019. She is here today for a 2nd [...] HIP REPLACEMENT Left 10/18/2012 SHOULDER SURGERY Right 2011 rotator cuff repair GALL BLADDER SURGERY 2000 BACK SURGERY 1-5299-5-2017--2018 FOOT SURGERY [id number] No family history on file. Social History Socioeconomic History Marital status: Tobacco Use Smoking status: Never Smokeless tobacco: Never Vaping Use Vaping Use: Never used Substance and Sexual Activity Alcohol use: Yes Comment: occasional Current Outpatient Medications: alendronate 70 MG tablet, , Disp: , Rfl: Cholecalciferol 50 MCG (1999) capsule, 1 capsule., Disp: , Rfl: furOSEmide [...] Rash Flagyl [Metronidazole] Dyspepsia documented in this [facility]04-09-2023 [facility]:Result Comment: Electronically Signed By: Rachel SALTER\.br\Date and Time Signed: 07/27/22 15:21 EDT\.br\Electronically Co-Signed By: Francisco Alcazar MD\.br\Date and Time Co- Signed: 07/27/22 17:04 [id number] Hospital Discharge instructions Patient Education 07/27/2022 15:20:26 [...] Follow these instructions at home: Medicines Take vpgd-dvf-ttzhkqj and prescription medicines only as told by [...] 04/06/2006 Document Revised: 07/29/2019 Document Reviewed: 02/23/2019 [employer] Patient Education 2020 [employer] 07/27/2022 15:20:26 Vasovagal Syncope, Pediatric Vasovagal Syncope, [...] ?Squatting. ?Moving his or her legs. Give omqy-kkg-pbpaiem and prescription medicines only as told by [...] 01/13/2009 Document Revised: 03/19/2018 Document Reviewed: 05/12/2017 [employer] Patient Education 2020 [employer] Follow Up Care 07/26/2022 11:32:57 With:Sara Vick Address: [address] [place] [phone]- Business (1) When: Unknown Comments:Call for followup appointment 7-10 days With:Julio Ferrara MD, NEU Address: [address] [place] [address]- When:2 to 4 weeks [facility]04-09-2023 Evaluation + Plan noteExtracted from: Title:Discharge [...] With When Contact Information Sara Vick [address] [place] [address]- Business (1) Additional Instructions: Call for followup appointment 7-10 days Josias RUFF, CARLOS Thacker Within 2 to [address] [place] [address]- Additional Instructions: Near-Syncope Vasovagal Syncope, Pediatric Extracted [...] it is acute or subacute. 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 Currently has wound vac intact to this operative site. 6. Osteoarthritis (M19.90: Unspecified osteoarthritis, unspecified site) osteoarthritis status post left hip replacement Has chronic back pain. 7. Morbid obesity (E66.01: Morbid (severe) obesity due to excess calories) -BMI 70.73 -Housing Director on diet, exercise, weight loss and lifestyle [...] plan. Diagnostic Tests Pending * HgbA1c 07/27/22 [facility]04-08-[address] [facility] [address] [facility] CenterComment on above:Result Comment: Electronically Signed By: Rachel [...] M51.36) Continue with current treatment plan. Apr, Miiram Mckeon has an open sore on right ankle which she states she is following up [facility]. I do not recommend futher injections until this is healed to prevent further infection or complication. Her pain appears to be stable at this time. She is encouraged to call the office if her pain increases in the future. [facility] Other 01-04-2023 NotePROCEDURE: XR FOOT RT MIN 3 VIEWS, [...] Electronically authenticated by: JULIO LOBATO Date: 2022-04-23 13:00[facility]01-04-2023 NotePROCEDURE: XR FOOT RT MIN 3 VIEWS, [...] Electronically authenticated by: JULIO LOBATO Date: 2022-04-23 13:00[facility]12-12-2022 NotePROCEDURE: XR ANKLE RT MIN 3 VIEWS [...] Electronically authenticated by: ALFRED UMAÑA Date: 2022-03-31 18:19[facility]11-19-2022 Hospital Discharge instructions Patient Education 03/08/2022 17:44:27 [...] 04/06/2006 Document Revised: 04/15/2017 Document Reviewed: 03/23/2017 [employer] Patient Education 2020 [employer] 03/08/2022 17:44:27 Hip Dislocation Hip Dislocation Hip [...] Follow these instructions at home: Medicines Take dkhy-vkq-kkawnuj and prescription medicines only as told by your health care provider. Ask your health care provider if the medicine prescribed to you: ?Requires you to avoid driving or using heavy machinery. ?Can cause constipation. You may need to take actions to prevent or treat constipation, such as: ?Drink enough fluid to keep your urine pale yellow. ?Take cwhc-lvz-oujljgg or prescription medicines. ?Eat foods that are [...] in the [place] Do not drive yourself [facility]. Summary Hip dislocation happens when the [...] 12/30/2001 Document Revised: 12/29/2018 Document Reviewed: 12/30/2018 [employer] Patient Education 2020 [employer] Follow Up Care 03/08/2022 13:37:46 With:Sorin DICKERSON Address: [address] [place] [id number] Business (1) When:03/11/2022 17:44:09 Comments:Call to establish follow-up care. Wear brace until follow-up with orthopedic surgery. With:Sara Vick Address: [address] [place] [address] [place] [address] Business (1) When:03/11/2022 17:43:29 Comments:Call the office [...] you develop any new or worsening symptoms. [facility]11-19-2022 Evaluation + Plan noteExtracted from: Title:ED Note Author:Wm Nagy DO Date:05/08/21 Dislocation, hip (S73.006A: Unspecified dislocation of unspecified hip, initial encounter) Ordered: acetaminophen-hydrocodone, 1 tab(s), Oral, q4hr for pain, 12 tab(s), Refill(s) 0, [id number], 172, cm, 03/08/22 13:49:00 EST, Height/Length [...] XR Hip 2-3 Views Left + Pelvis [facility]11-18-2022 Evaluation note* Encounter Date Diagnosis Assessment [...] negative findings were considered in medical decision-making. [facility] Other 06-20-2022 NotePROCEDURE: XR FOOT RT MIN [...] Electronically authenticated by: JULIO LOBATO Date: 2021-10-07 11:44[facility] noteNo InformationNortGeisinger [facility] [employer] Other Evaluation noteNo assessment information available [facility] Work Phone: Evaluation note* Diagnosis Pain in prosthetic joint, sequela- Primary documented in this encounter [facility] - Reported* Type Description Date [...] 2 021 Surgical History back surgeries x5 [facility] gen kori gilman 2018 [employer] Other Hisounh general Narrative - Reported* Type Description Date [...] 2 021 Surgical History back surgeries x5 [facility] gen kori gilman 2019 Hospitalization History see above [facility] Other Hislura general Narrative - Reported* Type Description Date [...] 2 021 Surgical History back surgeries x5 [facility] carisa-dr gilman 2018 Surgical History lazer surgery on her lt leg veins and she also had sclero tx on b/l legs 2022 Hospitalization History see above [facility] Other Hospital course Narrative No data available for this section [facility] No data available for this section [facility] Advance Directives No Advanced Directives Records [...] Complaint L hip Chief Complaint Back Pain Chief Complaint Med Refill For Chron ic Pain Back Pain Follow Up After Caudal Epidural Ankle scar therapy i70.213 i83.813 Assessments No Assessments Information AvailableNo Assessments Information Available Reason for Referral Specialty Diagnoses / Procedures Referred By Bryonac t Referred To Contact Diagnoses Pain in prosthetic joint, sequela Procedures XR HIP WITH PELVIS LEFT Perfecto Burch MD [address] [place] [address] Referral ID Status Reason Start Date Expiration Date V isits Requested Visits Authorized [id number] New Request 09/18/2022 10/13/2023 1 1 Specialty Diagnoses / Procedures Referred By Contac t Referred To Contact Diagnoses Pain in prosthetic joint, sequela Procedures XR KNEE LEFT 3 VIEWS Perfecto Burch MD [address] [place] [id number] Referral ID Status Reason Start Date Expiration Date V isits Requested Visits Authorized [id number] New Request 09/16/2022 10/11/2023 1 1 Additional Source Comments INFORMATION SOURCE (unrecogn ized section and content) DATE CREATED AUTHOR 10/14/2017 [facility] DATE CREATED AUTHOR AUTHOR'S ORGANIZ ATION 12/13/2017 [facility] DATE CREATED AUTHOR AUTHOR'S ORGANIZ ATION 07/10/[address] [facility] [facility] DATE CREATED AUTHOR AUTHOR'S ORGANIZ ATION 02/25/2019 [facility] DATE CREATED AUTHOR AUTHOR'S ORGANIZ ATION 03/01/2022 [facility] d[facility] Specialist DATE CREATED AUTHOR AUTHOR'S ORGANIZ ATION 07/26/2022 [facility] DATE CREATED AUTHOR AUTHOR'S ORGANIZ ATION 09/27/2022 [facility] DATE CREATED AUTHOR AUTHOR'S ORGANIZ ATION [facility]20[facility] DATE CREATED AUTHOR AUTHOR'S ORGANIZ ATION 11/26/2022 Ramirez Valentin [facility] DATE CREATED AUTHOR AUTHOR'S ORGANIZ ATION 05/25/[address] [facility] REASON FOR VISIT (unrecogniz ed section and content) Specialty Diagnoses / Procedures Referred By Maximiliano t Referred To Contact Diagnoses Pain in prosthetic joint, sequela Procedures XR HIP WITH PELVIS LEFT Perfecto Burch MD [address] [place] [address] Referral ID Status Reason Start Date Expiration Date V isits Requested Visits Authorized [id number] New Request 09/18/2022 10/13/2023 1 1 Reason Comments Pain New Patient Patient Care team informatio n (unrecognized section and content) Team Status: Active Member Role Status Dates Sara Vick MD Primary Care Provider Active Team Status: Inactive Member Role Status Dates Sara Vick MD Primary Care Provider, Attending Pr ashanti Active 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 Relationship Specialty Start Date End Date Sara Vick MD [address] [place] [address] [place] [address] PCP - General Family Medicine 04/09/22 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 Relationship Specialty Start Date End Date Sara Vick MD [address] [place] [address] [place] [address] PCP - General Family Medicine 04/09/22 Team Status: Inactive Member Role Status Dates Sara Vick MD Primary Care Provider Active Larry Brown MD Attending Provider Active Team Status: Inactive Member Role Status Dates Larry Brown MD Attending Provider Active Sta rt: March 06, 2023 End: March 06, 2023 Team Status: Inactive Member Role Status Dates Sara Vick MD Primary Care Provider Active Start: March 25, 2023 End: March 25, 2023 Larry Brown MD Attending Provider Active Sta rt: March 25, 2023 End: March 25, 2023 Team Status: Inactive Member Role Status Freeman Brown MD Attending Provider Active Sta rt: April 03, 2023 End: April 03, 2023 Team Status: Active Member Role Status Freeman Vick MD Primary Care Provider Active Start: May 20, 2023 Deepali Jansen PA-C Attending Provider Active Start: May 20, 2023 Team Status: Inactive Member Role Status Freeman Vcik MD Primary Care Provider Active Start: May 22, 2023 End: May 22, 2023 Kiran Kessler MD Attending Provider Active Start: May 22, 2023 End: May 22, 2023 Goals (unrecognized section and content) Goals may [...] BE BASED ON THE PRIMARY CLINICAL RECORDS. [facility] [employer] [facility]. provides no warranty or guarantee of the accuracy or completeness of information in this document.
== END 2023-05-26 06:54 | disposition home or self-care (01) ==
LOC: US 06:53
PROVIDERS: PCP Family Medicine; Visit Provider Family Medicine
DX: R30.0 Dysuria (principal)
CPT/HCPCS: 76770

== ENCOUNTER 2023-06-03 11:43 | Outpatient (OUT) | payer MEDICARE, SELFPAY ==
--- OUTSIDE RECORDS SUMMARY | 2023-06-03 11:48 | XMS_ITS | CCD ---
Author Name Unknown Address [address] [place] [address] [facility] Care Team Providers Care Color Maker Name Role Phone Praveen Lopez Unavailable Unavailable BRUCE MATHEW Unavailable Unavailable SARA VICK Unavailable Unavailable PHYSICIAN, DEFAULT Unavailable Unavailable PHYSICIAN, DEFAULT Unavailable Unavailable SARA VICK Unavailable Unavailable Sara Vick~[phone] UNKNOWN Admitting Unavailable Sara Vick~[phone] UNKNOWN Attending Unavailable Sara Vick~[phone] UNKNOWN Referring Unavailable Sara Vick Primary Care Provider Trino Yoo Attending Provider [phone] Larry Brown Unavailable Sara Vick Primary Care Physician Lynn Salas Unavailable Unavailable Liam, Flor Unavailable Unavailable ADELE FLEMING Attending Unavailable SARA VICK Primary Care Unavailable MD Sara Vick Primary Care Provider [phone] MD Sara Vick Attending Provider DEEPALI [...] S Attending Unavailable Julio Ferrara Consulting Unavailable Pierce, Julio Consulting Unavailable Pierce, Julio Consulting Unavailable Pierce, Julio Consulting Unavailable Pierce, Julio Consulting Unavailable Pierce, Julio Consulting Unavailable Pierce, Julio Consulting Unavailable Pierce, Julio Consulting Unavailable Wm Nagy Attending Unavailable Flavio Castillo Attending Unavailable Windnagel, Alley Admitting Unavailable Windnagel, Alley Attending Unavailable Windnasunita, Alley Referring Unavailable Dominique Shane Unavailable MD Sara Vick Primary Care Provider [phone] MD Larry Brown Attending Provider [phone] Kiran Kessler Unavailable HAILEY Jansen Attending Provider MD Kiran Kessler Attending Provider Sara Vick Primary Care Unavailable Deepali Jansen Admitting Unavailable Deepali Jansen Attending Unavailable Stephanie, Larry S Admitting Unavailable Larry Brown S Attending Unavailable Sara Vick Primary Care Unavailable Sara Vick Primary Care Unavailable Stephanie, Larry S Admitting Unavailable Stephanie, Larry S Attending Unavailable Sara Vick Primary Care Unavailable Kiran Kessler Admitting UnavailKiran Carrero Attending Unavailabl e Sara Vick Attending Unavailable Sara Vick M Admitting Unavailable Nicanor Sara M Primary Care Unavailable Unavailable Unavailable Unavailable Allergies Allergy Classification Reported Allergen(s) Allergy Type Date of Onset Reaction(s) Facility (1 source) Sulfa Antibiotics 06-19-19 18 [facility] (6 sources) Sulfonamides (Antibiotic); Translations: [SULFA (SULFONAMIDE ANTIBIOTICS)] Propensity to adverse reactions to drug (disorder) 07-17-19 07 Rash [facility] Repository (3 sources) Sulfonamides (Antibiotic) Drug allergy (disorder) 08-02-19 10 [facility] Repository (4 sources) Sulfamethoxazole; Translations: [sulfamethoxazole ] Drug Allergy Cutaneous eruption (morphologic abnormality) [facility] Repository (2 sources) Sulfur; Translations: [Sulfur] Drug Allergy [facility] Repository (16 sources) Sulfacetamide Drug Allergy 09-19-19 23 Rash [facility] Other (2 sources) metroNIDAZOLE Drug Allergy 09-19-19 23 Dyspepsia [facility] (1 source) Sulfacetamide Drug Allergy 05-18-19 24 [facility] Repository Medications Current Medications Medication Drug Class(es) Dates [...] for 30 days Dec, Active Start: 03-08-2022 [place] 325 mg-5 mg oral tablet 1 tab(s), Oral, q4hr for pain, 12 tab(s), Refill(s) 0, [facility]/pharmacy #[id number], 172, cm, 03/08/22 13:49:00 EST, Height/Length [...] Daily, # 30 tab(s), Refills(s) 0, Pharmacy: [facility]/pharmacy #[id number], 172.7, cm, 07/26/22 11:43:00 EDT, Height/Length [...] supplement 06/19/2017 9:00:00 take 1 capsule by [facility] every twenty-four hours Vitamin D3 50 [...] oral tablet (20 sources) Anti-epileptic Agent Start: take 1200 mg by mouth twice daily [...] 12:00am Start: 06-26-2017 take 1 capsule by [facility] once daily levothyroxine 125 mcg (0.125 [...] Start: 06-19-2017 take 2 tablets by mo [facility] twice daily Zanaflex Tablet 4 MG 2 tablet Tablet Oral GIVE 2 TABS (8MG) BY MOUTH TWICE DAILY FOR MUSCLOSKELETAL 06/19/2017 9:00:00 take 1 capsule by [facility] every eight hours tiZANidine HCl 4 [...] 10:49am Start: 06-18-2017 [facility] as needed [...] Translations: [Dizziness and giddiness] Onset: 3 Episodic Coronary atherosclerosis and other heart disease (1 source) Coronary atherosclerosis and other heart disease; Translations: [Atherosclerosis of hoh arteries of extremities with intermittent claudication, bilateral legs] Onset: 4 Deficiency and other anemia (1 source) Iron [...] 07-01-2013 Chronic Other aftercare (1 source) Other terminal worker (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) drug therapy; 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] Onset: 3 Episodic Other [...] rest Vito US arterial pvr rest LE [facility] [place] [address] Ultrasound Report Signed Patient: Leelee Cedillo MR#: [id number] 56 : 1950 Acct:[id number] Age/Sex: 72 / F ADM Date: 05/22/23 Loc: Room: Type: [facility] Attending Dr: Kiran Kessler MD Ordering Provider: [...] Drake Bates M.D.05/25/2023 10:58 AM Dictation Location: [place] [address] Tech: Katy Leone Transcribed By: LISBETH 05/25/23 1058 Dictated By: Drake Bates MD 05/25/23 1057 Signed By: 05/25/23 1058 Normal [facility] US venous duplex LE BIon US venous duplex LE BI [facility] [place] [address] Ultrasound Report Signed Patient: Leelee Cedillo MR#: [id number] 56 : 1950 Acct:[id number] Age/Sex: 72 / F ADM Date: 05/22/23 Loc: Room: Type: [facility] Attending Dr: Kiran Kessler MD Ordering Provider: [...] vein has previously been stripped. No significant buckle and button maker incompetence is noted. The lesser saphenous vein [...] 4 mm in diameter. Impression dictated by: Drake Bates M.D.05/25/2023 10:57 AM Dictation Location: [place] [address] Tech: Katy Leone Transcribed By: LISBETH 05/25/23 105 Dictated By: Drake Bates MD 05/25/23 105 Signed By: 05/25/23 105 [facility] ED Note-Physicianon 11-26-19 ED Note-Physician Normal [facility] Comment on above: Result Comment: Elec tronically Signed By: Sathya De La O PA-C\.br\Date and Time Signed: 11/22/22 14:13 EDT\.br\Electronically Co-Signed By: Flavio Castillo MD\.br\Date and Time Co-Signed: 11/25/22 13:23 EDT Consent for Treatmenton Consent for Treatment [id number]#1.00CD:127 Normal [facility] Discharge Instructionson Discharge Instructions [id number]#1.00CD:127 Normal [facility] ED Clinical Summaryon 2022 ED Clinical Summary [facility] ED Patient Education Noteon 11-22-2022 ED Patient Education Note Normal [facility] ED Patient Summaryon 023 ED Patient Summary Normal [facility] Neurology Forms- Texton Neurology Forms- Text [id number]#1.00CD:127 Normal [facility] EEGon 09-11-2022 EEG [facility] Comment on above: Result Comment: Elec tronically Signed By: Jonathan Powell DO\.br\Date and Time Signed: 09/11/22 10:41 EDT Consent for Treatmenton 08-19 Consent for Treatment [id number]#1.00CD:127 Normal [facility] Physician Orderon 09-03-2022 Physician Order [id number]#1.00CD:127 Normal [facility] VC CONSULT FOLLOWUPon 2022 VC CONSULT FOLLOWUP Patient: LEELEE CEDILLO Exam Date: 08/08/2022 : 1950 Gender:F Ordering : DR ALFRED UMAÑA M.D. Admission #: [id number] Family : Order #: [id number] CLICK HERE TO VIEW EXAM RADIOLOGY REPORT [...] Umaña MD on 08/08/2022 at 10:59 Normal [facility] VC EXT VENOUS LT LIMITEDon 0 08-08-2022 VC EXT VENOUS LT LIMITED Patient: LEELEE CEDILLO Exam Date: 08/08/2022 : 1950 Gender:F Ordering : DR ALFRED UMAÑA M.D. Admission #: [id number] Family : Order #: [id number] CLICK HERE TO VIEW EXAM RADIOLOGY REPORT [...] Umaña MD on 08/08/2022 at 09:43 Normal [facility] Coding Summary.on 07-29-2022 Coding Summary. Normal [facility] Insurance Correspondenceon 0 07-29-2022 Insurance Correspondence [id number]#1.00CD:127 Normal [facility] Insurance Correspondence Off iceon 07-29-2022 Insurance Correspondence Office [id number]#1.00CD:127 Normal [facility] Discharge Instructionson Discharge Instructions [id number]#1.00CD:127 Normal [facility] XnfH0reo 07-28-2022 HbA1c (Bld) [Mass fraction] 5.3 % Normal <=5.9 [facility] Comment on above: Performed By: #### 2 917535, 9928568, 1048969, 1520109, 667812416, 60479649 ####[facility] [address] [place] [address] Insurance Correspondenceon 0 07-28-2022 Insurance Correspondence [id number]#1.00CD:127 Normal [facility] C. diff by PCRon 07-27-2022 Clostridium difficile by PCR Negative Normal Negative [facility] Comment on above: Order Comment: Order added by Discern Expert. Result Comment: This test result should be correlated with clinical presentations and medical history by a healthcare provider to determine its clinical significance. Performed By: #### 3 [id number], [id number], [id number] ####[facility] [address] [place] [address] CDiff PCRon 07-27-2022 Cdiff Specimen Acceptable Acceptable Normal [facility] Comment on above: Performed By: #### 3 [id number], [id number], [id number] ####[facility] [address] [place] [address] Order Cancelled No, PCR to follow Normal [facility] Comment on above: Performed By: #### 3 [id number], [id number], [id number] ####[facility] [address] [place] [address] CHEMISTRYOrdered By: SYSTEM SYSTEM on 07-27-2022 Anion [...] Remisol Consultation Noteon 07-28-19 Consultation Note Normal [facility] Comment on above: Result Comment: Elec tronically Signed By: Smita Ramos RN\.br\Date and Time Signed: 07/27/22 07:14 EDT\.br\Electronically Co-Signed By: Jonathan Powell DO\.br\Date and Time Co-Signed: 07/27/22 10:23 EDT EMS Documentationon 07-28-19 EMS Documentation Normal [facility] EMS Documentation Normal [facility] EMS Documentation Normal [facility] Enteric Panel by PCRon 07-27 C. coli+jejuni+upsali ensis DNA VIVIANA+non-probe Ql (Stl) Not detected Normal [facility] Comment on above: Result Comment: Test ing was performed utilizing reverse consumer education specialist (RT), polymerase chain reaction (PCR), and array [...] nulcleic acid test. Performed By: #### 3 [id number], 4240794475, [id number] ####[place] [address] [place] [address] E. coli stx1+stx2 genes VIVIANA+non-probe Ql (Stl) Negative Normal [facility] Comment on above: Performed By: #### 3 039015469, 8077174970, [id number] ####[facility] [address] [place] [address] Enteric Panel Intrl QC Pass Normal [facility] Comment on above: Result Comment: Test ing was performed utilizing reverse consumer education specialist (RT), polymerase chain reaction (PCR), and array [...] 1 and 2. Performed By: #### 3 [id number], [id number], [id number] ####[facility] [address] [place] [address] Norovirus genogroup I+II RNA VIVIANA+non-probe Ql (Stl) Not detected Normal [facility] Comment on above: Performed By: #### 3 668952535, 8417028815, 246889268 ####[facility] [address] [place] [address] Rotavirus A RNA VIVIANA+non-probe Ql (Stl) Not detected Normal [facility] Comment on above: Performed By: #### 3 878964507, 6548251419, 658207849 ####[facility] [address] [place] [address] S. enterica+bongori DNA VIVIANA+non-probe Ql (Stl) Not detected Normal [facility] Comment on above: Result Comment: This test result should be correlated with clinical presentations and medical history by a healthcare provider to determine its clinical significance. Performed By: #### 3 [id number], 9705318193, 823522407 ####[facility] [address] [place] [address] Shigella species+EIEC invasion plasmid antigen H ipaH gene VIVIANA+non-probe Ql (Stl) Not detected Normal [facility] Comment on above: Performed By: #### 3 259297679, 6116886467, 840973657 ####[facility] [address] [place] [address] V. cholerae+parahaemo lyticus+vulnificus DNA VIVIANA+non-probe Ql (Stl) Not detected Normal [facility] Comment on above: Performed By: #### 3 148969826, 9602046436, 556356197 ####[place] [address] Y. enterocolitica DNA VIVIANA+non-probe Ql (Stl) Not detected Normal [facility] Comment on above: Performed By: #### 3 033853670, 4626622738, 012094272 ####[facility] [address] [place] [address] Free T4on 07-27-2022 Free T4 [Mass/Vol] 1.91 ng/dL High 0.58-1.64 [facility] Comment on above: Order Comment: Free T4 added by Discern Rule due to a TSH result of <0.34 or >5.60. Performed By: #### 2 863786, 8363233, 9398025, 8352205, 906948128, 77067148 ####[facility] [address] [place] [address] HEMATOLOGYOrdered By: Tonya Martin on 07-27-2022 WBC corrected for nucl RBC Auto (Bld) [#/Vol] 7.8 E9/L Normal 4.0 - 11.0 E9/L [facility] HemeAutoSS Inpatient Clinical Summaryon 04-09-2023 Inpatient Clinical Summary Normal [facility] Inpatient Patient Summaryon 07-27-2022 Inpatient Patient Summary Normal [facility] Inpatient Patient Summary Normal [facility] Interdisciplinary Note - Oumar e Manageron 07-27-2022 Interdisciplinary Note - Piano Builder Normal [facility] Comment on above: Result Comment: Elec tronically Signed By: Tonya Matias\Date and Time Signed: 07/27/22 12:04 EDT Interdisciplinary Note - Pipe n 07-27-2022 Interdisciplinary Note - OT Normal [facility] Interdisciplinary Note - PTo n 07-27-2022 Interdisciplinary Note - PT PT eval completed; pt scores 16/24 on the AM-PAC 6-Clicks 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 Pt is able to safely perform bed <> chair transfers as she was doing prior to admission and has no further PT needs at this time. Normal [facility] Lipid Panelon 07-27-2022 Cholesterol in LDL [Mass/Vol] 91 mg/dL Normal <=129 [facility] Comment on above: Performed By: #### 2 649171, 1937842, 9091966, 6414121, 827439768, 64338782 ####[facility] [address] [place] [address] Cholesterol [Mass/Vol] 160 mg/dL Normal 120-200 [facility] Comment on above: Performed By: #### 2 418019, 9355382, 4705692, 8385247, 445141021, 78379648 ####[facility] [address] [place] [address] Cholesterol in HDL [Mass/Vol] 52 mg/dL Invalid Interpretation Code [facility] Comment on above: Result Comment: HDL > or equal to 60 mg/dL: Low cardiovascular riskHDL < 40 mg/dL : High cardiovascular risk Performed By: #### 2 279525, 8728151, 0822264, 2920142, 951146257, 48799621 ####[facility] [address] [place] [address] Cholesterol in VLDL [Mass/Vol] 17 mg/dL Normal 7-40 [facility] Comment on above: Performed By: #### 2 574880, 1075351, 7083693, 6262109, 020068456, 80651538 ####[facility] [address] [place] [address] Triglyceride [Mass/Vol] 83 mg/dL Normal <=149 [facility] Comment on above: Performed By: #### 2 269061, 4124027, 3872723, 4953642, 162728760, 52793777 ####[facility] [address] [place] [address] Lyteson 07-27-2022 Anion gap [Moles/Vol] 9 mmol/L Normal 6-16 [facility] Comment on above: Performed By: #### 2 268728, 2742383, 0544452, 3835151, 773773397, 52347568 ####[facility] [address] [place] [address] Chloride [Moles/Vol] 106 mmol/L Normal 101-111 [facility] Comment on above: Performed By: #### 2 342672, 1327475, 1603169, 8687484, 124617517, 06954264 ####[facility] [address] [place] [address] CO2 [Moles/Vol] 26 mmol/L Normal 21-31 [facility] Comment on above: Performed By: #### 2 709899, 3599711, 1334763, 3031410, 603453696, 61572672 ####[facility] [address] [place] [address] Potassium [Moles/Vol] 4.0 mmol/L Normal 3.5-5.3 [facility] Comment on above: Performed By: #### 2 208163, 5675792, 4467847, 1604129, 187508544, 70729397 ####[facility] [address] [place] [address] Sodium [Moles/Vol] 137 mmol/L Normal 135-145 [facility] Comment on above: Performed By: #### 2 371477, 8463671, 6481211, 7697790, 158507626, 94971571 ####[facility] [address] [place] [address] MRA Head w/o Contraston - MRA Head w/o Contrast Normal [facility] MRI Brain w/o Contraston MRI Brain w/o Contrast Normal [facility] Monitor Recordon 07-27-2022 Monitor Record [id number]#[id number]:127 Normal [facility] Monitor Record [id number]#1.00CD:127 Normal [facility] Patient Education - Texton 0 07-27-2022 Patient Education - Text Normal [facility] RAD - MRI Screening Formon 0 07-27-2022 RAD - MRI Screening Form [id number]#[id number]:127 Normal [facility] TSH With T4fr Reflexon 07-27 TSH Qn 0.16 m[IU]/L Low 0.34-5.60 [facility] Comment on above: Performed By: #### 2 353484, 8451081, 5381750, 4862435, 014364480, 83304499 ####[facility] [address] [place] [address] Troponin 9 Hr.on 07-27-2022 Troponin I.cardiac [Mass/Vol] 6.70 pg/mL Low 10.10-27.1 0 [facility] Comment on above: Result Comment: The 95% CI (Confidence Interval) PPV (Positive Predictive Value) for myocardial infarction in females is 38 pg/mL, in males 51 pg/mL. The results should be used in conjunction with clinical conditions of myocardial infarction.(Access High Sensitivity Troponin I Instructions For Use, Christy Upton, November 2017) Performed By: #### 1 [id number] ####[facility] [address] [place] [address] WBCon 07-27-2022 WBC corrected for nucl RBC Auto (Bld) [#/Vol] 7.8 E9/L Normal 4.0-11.0 [facility] Comment on above: Performed By: #### 2 790446, 1384297, 2727467, 6224058, 475724656, 92358270 ####[facility] [address] [place] [address] Auto Diffon 07-26-2022 Basophils/100 WBC (Bld) 0.5 % Normal 0.0-2.0 [facility] Comment on above: Order Comment: Order Added by Discern Expert. Performed By: #### 2 811933, 7272834, 4634056, 8064189, 90350038, 27141749 ####[address] [address] Basophils/Leukocyt es Auto (Bld) [Pure # fraction] 0.1 E9/L Normal 0.0-0.2 [facility] Comment on above: Order Comment: Order Added by Discern Expert. Performed By: #### 2 536152, 1540608, 9700250, 4580045, 49728740, 28616030 ####[address] [address] Eosinophils/100 WBC (Bld) 0.5 % Normal 0.0-8.0 [facility] Comment on above: Order Comment: Order Added by Discern Expert. Performed By: #### 2 415694, 9364535, 5695281, 4720577, 71232243, 78179841 ####[address] [address] Eosinophils/Leukoc ytes Auto (Bld) [Pure # fraction] 0.1 E9/L Normal 0.0-0.5 [facility] Comment on above: Order Comment: Order Added by Discern Expert. Performed By: #### 2 512550, 2548146, 3455709, 4778911, 09594481, 71927266 ####[place] [address] [place] [address] Lymphocytes/100 WBC (Bld) 14.5 % Normal 14.0-50.0 [facility] Comment on above: Order Comment: Order Added by Discern Expert. Performed By: #### 2 879802, 8418753, 8908334, 1611605, 00005971, 61545044 ####[facility] [address] [place] [address] Lymphocytes/Leukoc ytes Auto (Bld) [Pure # fraction] 2.1 E9/L Normal 1.0-4.0 [facility] Comment on above: Order Comment: Order Added by Discern Expert. Performed By: #### 2 169188, 2557675, 1601013, 2150013, 45326593, 90582211 ####[place] [address] [place] [address] Monocytes/100 WBC (Bld) 6.5 % Normal 4.0-14.0 [facility] Comment on above: Order Comment: Order Added by Ham Expert. Performed By: #### 2 226007, 9692617, 8320914, 1774423, 27397239, 27744025 ####[address] [address] Monocytes/Leukocyt es Auto (Bld) [Pure # fraction] 0.9 E9/L Normal 0.2-1.0 [facility] Comment on above: Order Comment: Order Added by Ham Expert. Performed By: #### 2 153792, 4885483, 3689649, 1417350, 32292255, 46940220 ####[place] [address] [place] [address] Neutrophils/100 WBC (Bld) 78.0 % High 36.0-75.0 [facility] Comment on above: Order Comment: Order Added by Discern Expert. Performed By: #### 2 083414, 1125260, 3696498, 3738458, 10351013, 69546848 ####[place] [address] [place] [address] Neutrophils/Leukoc ytes Auto (Bld) [Pure # fraction] 11.4 E9/L High 2.0-7.5 [facility] Comment on above: Order Comment: Order Added by Discern Expert. Performed By: #### 2 629320, 7889917, 3073328, 5511257, 23328911, 83836901 ####[facility] [address] [place] [address] BMPon 07-26-2022 Creatinine [Mass/Vol] 0.8 mg/dL Normal 0.5-1.3 [facility] Comment on above: Performed By: #### 2 980305, 1571717, 7692726, 6831322, 88725828, 53107455 ####[facility] [address] [place] [address] Urea nitrogen [Mass/Vol] 11 mg/dL Normal 5-21 [facility] Comment on above: Performed By: #### 2 572883, 3367540, 4426933, 2776849, 43731855, 63427100 ####[facility] [address] [place] [address] Urea nitrogen/Creatinin e [Mass ratio] 14 No Units Normal 10-20 [facility] Comment on above: Performed By: #### 2 537789, 0269314, 5002668, 8881697, 33433649, 55842164 ####[facility] [address] [place] [address] Anion gap [Moles/Vol] 13 mmol/L Normal 6-16 [facility] Comment on above: Performed By: #### 2 255489, 8487338, 1869706, 1868425, 11264339, 07356344 ####[facility] [address] [place] [address] Calcium [Mass/Vol] 9.3 mg/dL Normal 8.9-11.1 [facility] Comment on above: Performed By: #### 2 433031, 9421618, 4839466, 5557411, 62624232, 72918665 ####[facility] [address] [place] [address] Chloride [Moles/Vol] 101 mmol/L Normal 101-111 [facility] Comment on above: Performed By: #### 2 138620, 4004472, 9367098, 4786598, 70852146, 38927679 ####[facility] [address] [place] [address] CO2 [Moles/Vol] 27 mmol/L Normal 21-31 [facility] Comment on above: Performed By: #### 2 056325, 4853240, 9078749, 2660464, 41581899, 54275805 ####[facility] [address] [place] [address] Glucose [Mass/Vol] 88 mg/dL Normal 55-199 [facility] Comment on above: Result Comment: If t his glucose result represents a fasting glucose, interpretation should refer to the following reference range: 55-99 mg/dL Performed By: #### 2 592482, 7967975, 2926022, 2858577, 21515056, 95790434 ####[facility] [address] [place] [address] Potassium [Moles/Vol] 3.6 mmol/L Normal 3.5-5.3 [facility] Comment on above: Performed By: #### 2 124499, 0976873, 4332588, 5767065, 97415138, 16536801 ####[facility] [address] [place] [address] Sodium [Moles/Vol] 137 mmol/L Normal 135-145 [facility] Comment on above: Performed By: #### 2 081503, 7387105, 7906964, 7842789, 33458922, 75208862 ####[facility] [address] [place] [address] CBC w/ Auto Diffon 3 Erythrocyte distribution width (RBC) [Ratio] 13.9 % Normal 10.9-14.2 [facility] Comment on above: Performed By: #### 2 066182, 6475077, 8540198, 4067381, 09141864, 96384275 ####[facility] [address] [place] [address] Hematocrit (Bld) [Volume fraction] 47.0 % High 34.0-46.0 [facility] Comment on above: Performed By: #### 2 [id number], 8356355, 3548646, 4657895, 10212543, 56600455 ####[facility] [address] [place] [address] Hemoglobin (Bld) [Mass/Vol] 15.3 g/dL Normal 12.0-16.0 [facility] Comment on above: Performed By: #### 2 473174, 8057020, 3532531, 6711064, 11061175, 88997978 ####[address] [address] MCH (RBC) [Entitic mass] 29.2 pg Normal 27.0-34.0 [facility] Comment on above: Performed By: #### 2 924464, 7148364, 2084907, 9864555, 13182980, 66165338 ####[address] [address] MCHC (RBC) [Mass/Vol] 32.7 g/dL Normal 31.4-36.0 [facility] Comment on above: Performed By: #### 2 426015, 4043109, 0814139, 8780367, 20368070, 46262826 ####[address] [address] MCV (RBC) [Entitic vol] 89.3 fL Normal 80.0-100.0 [facility] Comment on above: Performed By: #### 2 524541, 9707182, 4752815, 4626430, 50788418, 95763958 ####[address] [address] Platelet mean volume (Bld) [Entitic vol] 6.7 fL Normal 6.4-10.8 [facility] Comment on above: Performed By: #### 2 085032, 9931247, 5608966, 5309862, 50257455, 64023319 ####[facility] [address] [place] [address] Platelets (Bld) [#/Vol] 324.0 E9/L Normal 150.0-500. 0 [facility] Comment on above: Performed By: #### 2 731407, 0125467, 7443019, 6813112, 29864984, 99740807 ####[facility] [address] [place] [address] RBC (Bld) [#/Vol] 5.3 E12/L Normal 4.3-5.9 [facility] Comment on above: Performed By: #### 2 667448, 1050707, 0596415, 5517452, 12655538, 54407240 ####[facility] [address] [place] [address] WBC corrected for nucl RBC Auto (Bld) [#/Vol] 14.6 E9/L High 4.0-11.0 [facility] Comment on above: Performed By: #### 2 696101, 4838493, 1128783, 5539975, 54270684, 26292297 ####[facility] [address] [place] [address] CHEMISTRYOrdered By: SYSTEM SYSTEM on 07-26-2022 Troponin I.cardiac [Mass/Vol] 6.70 pg/mL Low 10.10 - 27.10 pg/mL [facility] Remisol Troponin I.cardiac [Mass/Vol] 5.40 pg/mL Low 10.10 - 27.10 pg/mL [facility] Remisol Troponin I.cardiac [Mass/Vol] 6.00 pg/mL Low 10.10 - 27.10 pg/mL [facility] Remisol Anion gap [Moles/Vol] 13 mmol/L Normal 6 - 16 mEq/L [facility] Remisol Calcium [Mass/Vol] 9.3 mg/dL Normal 8.9 - 11. 1 mg/dL [facility]isol Chloride [Moles/Vol] 101 mmol/L Normal 101 - 111 mmol/L [facility] Remisol CO2 [Moles/Vol] 27 mmol/L Normal 21 - 31 mmol/L [facility] Remisol Creatinine [Mass/Vol] 0.8 mg/dL Normal 0.5 - 1.3 mg/dL [facility] Remisol GFR/1.73 sq M.predicted among blacks MDRD (S/P/Bld) [Vol rate/Area] mL/min/1.73 m2 Normal >=59mL/min /1.73 m2 [facility] Chem S GFR/1.73 sq M.predicted among non-blacks MDRD (S/P/Bld) [Vol rate/Area] mL/min/1.73 m2 Normal >=59mL/min /1.73 m2 [facility] Chem S Glucose [Mass/Vol] 88 mg/dL Normal 55 - 199 mg/dL [facility] Remisol Magnesium [Mass/Vol] 2.0 mg/dL Normal 1.3 - 2.4 mg/dL [facility] Remisol Potassium [Moles/Vol] 3.6 mmol/L Normal 3.5 - 5.3 mmol/L [facility] Remisol Sodium [Moles/Vol] 137 mmol/L Normal 135 - 145 mmol/L [facility] Remisol Urea nitrogen [Mass/Vol] 11 mg/dL Normal 5 - 21 mg/dL [facility] Remisol Urea nitrogen/Creatinin e [Mass ratio] 14 mg/mg Normal 10 - 20 [facility] Remisol CHEMISTRYOrdered By: Lab ROP User on 07-26-2022 Glucose [Mass/Vol] 106 mg/dL High 55 - 99 mg/dL [facility] POC Subsection Comment on above: Result Comment: Parker GIL POC Device SN [id number] Invalid Interpretation Code [facility] POC Subsection POC User ID [id number] Invalid Interpretation Code [facility] POC Subsection POC Username SHANKAR ABARCA Invalid Interpretation Code [facility] POC Subsection CT Head or Brain w/o Contras ton 07-26-2022 CT Head or Brain w/o Contrast Normal [facility] Capillary Glucose POCon Glucose [Mass/Vol] 106 mg/dL High 55-99 [facility] Comment on above: Result Comment: Parker GIL Performed By: #### 2 [id number] ####[facility] [address] [place] [address] Consent for Treatmenton Consent for Treatment [id number]:127 Normal [facility] ED Clinical Summaryon 2022 ED Clinical Summary Normal [facility] ED Note-Physicianon 07-27-19 ED Note-Physician Normal [facility] Comment on above: Result Comment: Elec tronically Signed By: Yaritza Cedeño PA-C\.br\Date and Time Signed: 07/26/22 14:17 EDT\.br\Electronically Co-Signed By: Lance Wu M.D.\.br\Date and Time Co-Signed: 07/26/22 15:36 EDT ED Patient Education Noteon 07-26-2022 ED Patient Education Note Normal [facility] ED Patient Summaryon 023 ED Patient Summary Normal [facility] HEMATOLOGYOrdered By: SYSTEM SYSTEM on 07-26-2022 Basophils/100 [...] 78.0 % High 36.0 - 75.0 % FT HemeAutoSS Neutrophils/Leukoc ytes Auto (Bld) [Pure # fraction] 11.4 E9/L High 2.0 - 7.5 E9/L [facility] HemeAutoSS HEMATOLOGYOrdered By: Orlin Suh on 07-26-2022 Erythrocyte distribution width (RBC) [Ratio] 13.9 % Normal 10.9 - 14.2 % [facility] HemeAutoSS Hematocrit (Bld) [Volume fraction] 47.0 % High 34.0 - 46.0 % [facility] HemeAutoSS Hemoglobin (Bld) [Mass/Vol] 15.3 g/dL Normal 12.0 - 16.0 gm/dL FT HemeAutoSS MCH (RBC) [Entitic mass] 29.2 pg Normal 27.0 - 34.0 pg FT HemeAutoSS MCHC (RBC) [Mass/Vol] 32.7 g/dL Normal [...] 14.6 E9/L High 4.0 - 11.0 E9/L FT HemeAutoSS Magnesiumon 07-26-2022 Magnesium [Mass/Vol] 2.0 mg/dL Normal 1.3-2.4 [facility] Comment on above: Performed By: #### 2 020860, 2201052, 7394789, 0119778, 21688336, 79701834 ####[facility] [address] [place] [address] Monitor Recordon 07-26-2022 Monitor Record [id number]:127 Normal [facility] Pre-Arrival Noteon 3 Pre-Arrival Note Normal [facility] Troponin 0 Hr.on 07-26-2022 Troponin I.cardiac [Mass/Vol] 6.60 pg/mL Low 10.10-27.1 0 [facility] Comment on above: Order Comment: pt st ill in imaging, will check back later [email or web address] 07/26/2022 12:32:06 EDT Result Comment: The 95% CI (Confidence Interval) PPV (Positive Predictive Value) for myocardial infarction in females is 38 pg/mL, in males 51 pg/mL. The results should be used in conjunction with clinical conditions of myocardial infarction.(Access High Sensitivity Troponin I Instructions For Use, [employer], November 2017) Performed By: #### 2 639935, 5387930, 8112300, 1714440, 82142934, 31452725 ####[facility] [address] [place] [address] Troponin 3 Hr.on 07-26-2022 Troponin I.cardiac [Mass/Vol] 6.00 pg/mL Low 10.10-27.1 0 [facility] Comment on above: Result Comment: The 95% CI (Confidence Interval) PPV (Positive Predictive Value) for myocardial infarction in females is 38 pg/mL, in males 51 pg/mL. The results should be used in conjunction with clinical conditions of myocardial infarction.(Access High Sensitivity Troponin I Instructions For Use, [employer], November 2017) Performed By: #### 1 [id number] ####[facility] [address] [place] [address] Troponin 6 Hr.on 07-26-2022 Troponin I.cardiac [Mass/Vol] 5.40 pg/mL Low 10.10-27.1 0 [facility] Comment on above: Result Comment: The 95% CI (Confidence Interval) PPV (Positive Predictive Value) for myocardial infarction in females is 38 pg/mL, in males 51 pg/mL. The results should be used in conjunction with clinical conditions of myocardial infarction.(Access High Sensitivity Troponin I Instructions For Use, [employer], November 2017) Performed By: #### 1 [id number] ####[facility] [address] [place] [address] UA With Cult Reflexon 2022 Bacteria LM Ql (Urine sed) TRACE Normal Trace [facility] Comment on above: Performed By: #### 1 5041525 ####[facility] [address] [place] [address] Bilirubin Ql (U) Negative Normal Negative [facility] Comment on above: Performed By: #### 1 2457278 ####[address] [address] Clarity (U) CLEAR Normal Clear [facility] Comment on above: Performed By: #### 1 4890165 ####[address] [address] Color (U) YELLOW Normal Yellow [facility] Comment on above: Performed By: #### 1 5455339 ####[address] [address] Epithelial cells.squamous LM.HPF (Urine sed) [#/Area] 3-4 Normal 0-2 [facility] Comment on above: Performed By: #### 1 8271558 ####[address] [address] Glucose Test strip (U) [Mass/Vol] Negative Normal Negative [facility] Comment on above: Performed By: #### 1 [id number] ####[facility] [address] [place] [address] Hemoglobin Ql (U) Negative Normal Negative [facility] Comment on above: Performed By: #### 1 5327257 ####[facility] [address] [place] [address] Ketones (U) [Mass/Vol] Negative Normal Negative [facility] Comment on above: Performed By: #### 1 6065912 ####[address] [place] [address] [place].plasma/Lit hium.RBC (Bld) [Mass ratio] 0-3 Normal 0-3 [facility] Comment on above: Performed By: #### 1 4341743 ####[address] [address] Nitrite Ql (U) Negative Normal Negative [facility] Comment on above: Performed By: #### 1 9139142 ####[address] [address] pH (U) 6.5 [pH] Invalid Interpretation Code 5.0-9.0 [facility] Comment on above: Performed By: #### 1 2161586 ####[address] [address] Protein (U) [Mass/Vol] Negative Normal Negative [facility] Comment on above: Performed By: #### 1 1024781 ####[address] [address] Specific gravity (U) [Rel density] <=1.005 Invalid Interpretation Code 1.005-1.03 0 [facility] Comment on above: Performed By: #### 1 3241951 ####[address] [address] Type of Urine collection method Clean Catch Normal [facility] Comment on above: Performed By: #### 1 3481038 ####[address] [address] Urobilinogen Qn (U) 0.2 {Malu'U}/dL Normal 0.0-1.0 [facility] Comment on above: Performed By: #### 1 7926232 ####[address] [address] WBC Auto Ql (U) TRACE Abnormal Negative [facility] Comment on above: Performed By: #### 1 5143018 ####[address] [address] WBC LM.HPF (Urine sed) [#/Area] 0-5 Normal 0-5 [facility] Comment on above: Performed By: #### 1 6403386 ####[address] [address] URINALYSISOrdered By: Katerina Parker on 07-26-2022 Bacteria LM Ql (Urine sed) Trace /HPF Normal Trace/HPF [facility] UA Auto SS Bilirubin Ql (U) Negative [...] PM) Normal Negative [facility] UA Auto SS [place].plasma/Lit hium.RBC (Bld) [Mass ratio] 0-3 /HPF Normal [...] PM) Invalid Interpretation Code 1.005 - 1.030 [facility] UA Auto SS UA Spec Desc Clean Catch (07/26/22 4:49 PM) Normal [facility] UA Auto SS Urobilinogen Qn (U) 0.8926031 {Malu'U}/dL Normal 0.0 - 1.0 EU/dL [facility] UA Auto SS WBC Auto Ql (U) Trace *ABN* (07/26/22 4:49 PM) Invalid Interpretation Code Negative [facility] UA Auto SS WBC LM.HPF (Urine sed) [#/Area] 0-5 /HPF Normal 0-5/HPF [facility] UA Auto SS XR Chest Single Viewon 07-26 XR Chest Single View Normal [facility] eGFRon 07-26-2022 GFR/1.73 sq M.predicted among blacks MDRD (S/P/Bld) [Vol rate/Area] mL/min/{1.73_m2} Normal >=59 [facility] Comment on above: Order Comment: Order added by Discern Expert. Result Comment: eGFR is race adjusted. AA=. Performed By: #### 2 834582, 3877723, 5991386, 3557428, 46544584, 57644858 ####[facility] [address] [place] [address] GFR/1.73 sq M.predicted among non-blacks MDRD (S/P/Bld) [Vol rate/Area] mL/min/{1.73_m2} Normal >=59 [facility] Comment on above: Order Comment: Order added by Discern Expert. Result Comment: Economic Manager gina kidney disease could be indicated at eGFR's of less than 60 mL/min/1.73m2. Kidney failure is indicated at less than 15 mL/min/1.73m2. Performed By: #### 2 981607, 0007129, 1937897, 2876026, 89266024, 11349657 ####[facility] [address] [place] [address] SURGICAL PATH REPORTon 07-25 SURGICAL PATH REPORT [facility] Department of Pathology [address] [place] [phone] Name: LEELEE CEDILLO : 1950 [facility] [id number] Number: Gender [facility] n: Admit 71 years Attending ADELE FLEMING Age: Provider: Ordering ADELE FLEMING Provider: Consulti Surgical Pathology Report ng: ACCESSION: COLLECTED DATE/TIME: RECEIVED DATE/TIME: PATHOLOGIST: [id number] 07/24/2022 12:16 EDT 07/24/2022 12:16 EDT STERN MD, ZEJIN Final Diagnosis Report for [facility] [place] [place] RIGHT ANKLE, PUNCH BIOPSY: - FRAGMENT [...] MP:alexa 07/24/2022 Tissue pathology report for: [facility], [address] [place] [address]; ____ Print 07/25/2022 15:48 EDT Number: Date/Time: [facility] Department of Pathology [address] [place] [phone] Name: LEELEE CEDILLO : 1950 [facility] [id number] Number: [facility] : n: Admit 71 years Attending ADELE FLEMING Age: Provider: Ordering ADELE FLEMING Provider: Consulti Surgical Pathology Report ng: ACCESSION: COLLECTED DATE/TIME: RECEIVED DATE/TIME: PATHOLOGIST: [id number] 07/24/2022 12:16 EDT 07/24/2022 12:16 EDT MICHELINE STERN MD Gross Description PATHOLOGY SERVICES PROVIDED BY [employer] (CLIA #[id number]) in cooperation with [facility] at [address] [place] [address] ( CLIA #[id number]) Microscopic Diagnosis The final diagnosis is based on a microscopic exam of service liaison representative sections. Codes CPT CODE: 55851 ____ Print 07/25/2022 15:48 EDT Number: Date/Time: Normal [facility] Comment on above: Performed By: #### 9 [id number] #### [facility] Laboratory Services [address] [place] [address] Manganese Wheeler: Jared Oh MD POINT OF CARE GLUCOSEon 0 Glucose [Mass/Vol] 114 mg/dL Critically high 74-106 [facility] Comment on above: Performed By: #### P OCGLUC #### [facility] [address] [place] [address] Dr. Salvador Yung Glucose [Mass/Vol] 112 mg/dL Critically high 74-106 [facility] Comment on above: Performed By: #### P OCGLUC #### [facility] [address] [place] [address] Dr. Salvador Yung EMS Documentationon 07-21-19 23 EMS Documentation Normal [facility] Covid-19 PCR (CVDTBH)on 06-20 SARS-CoV-2 (COVID-19) RNA VIVIANA+probe Ql (Unsp spec) Not detected Normal NOT DETECTED [facility] Comment on above: Result Comment: This test is not yet approved or cleared by the [place] FDA. When there are no FDA-approved or cleared tests available, and other criteria are met, FDA can make tests available under an emergency access mechanism called an Emergency Use Authorization (EUA). The EUA for this test is supported by the Pre Sales Network Engineer of Health and Human Service's (HHS's) declaration [...] SARS-CoV-2. Performed By: #### C VDTB #### [facility] [address] [place] [address] Dr. Salvador Yung PROF CHEM 8 (BAS METB)on Anion gap [Moles/Vol] 12.0 mmol/L Normal [facility] Comment on above: Performed By: #### B MP #### [facility] [address] [place] [address] Dr. Salvador Yung Calcium [Mass/Vol] 9.4 mg/dL Normal 8.5-10.1 [facility] Comment on above: Performed By: #### B MP #### [facility] [address] [place] [address] Dr. Salvador Yung Chloride [Moles/Vol] 100 mmol/L Normal 98-107 [facility] Comment on above: Performed By: #### B MP #### [facility] [address] [place] [address] Dr. Salvador Yung CO2 [Moles/Vol] 29.8 mmol/L Normal 21.0-32.0 [facility] Comment on above: Performed By: #### B MP #### [facility] [address] [place] [address] Dr. Salvador Yung Creatinine [Mass/Vol] 0.91 mg/dL Normal 0.55-1.02 [facility] Comment on above: Performed By: #### B MP #### [facility] [address] [place] [address] Dr. Salvador Yung EGFR-AF FILIPINO >60 Normal >=60 [facility] Comment on above: Performed By: #### B MP #### [facility] [address] [address] [address] Salvador Yung EGFR-NON AF FILIPINO >60 Normal >=60 [facility] Comment on above: Performed By: #### B MP #### [facility] [address] [address] [address] Salvador Yung Glucose [Mass/Vol] 82 mg/dL Normal 74-106 [facility] Comment on above: Performed By: #### B MP #### [facility] [address] [address] [address] Salvador Yung Potassium [Moles/Vol] 3.8 mmol/L Normal 3.5-5.1 [facility] Comment on above: Performed By: #### B MP #### [facility] [address] [address] [address] Salvador Yung Sodium [Moles/Vol] 138 mmol/L Normal 136-145 [facility] Comment on above: Performed By: #### B MP #### [facility] [address] [address] [address] Salvador Yung Urea nitrogen [Mass/Vol] 12.0 mg/dL Normal 7.0-18.0 [facility] Comment on above: Performed By: #### B MP #### [facility] [address] [address] [address] Salvador Yung Urea nitrogen/Creatinin e [Mass ratio] 13.2 mg/mg Normal [facility] Comment on above: Performed By: #### B MP #### [facility] [address] [address] [address] Salvador Yung VC INJ SCL JESSICA PRESSURIZATION MECHANIC VEINSon 0 07-01-2022 VC INJ SCL JESSICA PRESSURIZATION MECHANIC VEINS Patient: LEELEE CEDILLO Exam Date: 07/01/2022 : 1950 Gender:F Ordering : DR ALFRED UMAÑA M.D. Admission #: [id number] Family : Order #: [id number] CLICK HERE TO VIEW EXAM RADIOLOGY REPORT [...] Lobato M.D. on 07/01/2022 at 15:22 Normal [facility] VC CONSULT FOLLOWUPon 2022 VC CONSULT FOLLOWUP Patient: LEELEE CEDILLO Exam Date: 06/19/2022 : 1950 Gender:F Ordering : DR ALFRED UMAÑA M.D. Admission #: [id number] Family : Order #: [id number] CLICK HERE TO VIEW EXAM RADIOLOGY REPORT [...] Umaña MD on 06/19/2022 at 14:17 Normal [facility] VC EXT VENOUS LT LIMITEDon 0 06-19-2022 VC EXT VENOUS LT LIMITED Patient: LEELEE CEDILLO Exam Date: 06/19/2022 : 1950 Gender:F Ordering : DR ALFRED UMAÑA M.D. Admission #: [id number] Family : Order #: [id number] CLICK HERE TO VIEW EXAM RADIOLOGY REPORT [...] Umaña MD on 06/19/2022 at 14:15 Normal [facility] VC INJ FOAM SCLERO W US MLTI on 06-13-2022 VC INJ FOAM SCLERO W US MLTI Patient: LEELEE CEDILLO Exam Date: 06/13/2022 : 1950 Gender:F Ordering : DR ALFRED UMAÑA M.D. Admission #: [id number] Family : Order #: [id number] CLICK HERE TO VIEW EXAM RADIOLOGY REPORT [...] duple (more content not included)... Normal [facility] VC CONSULT FOLLOWUPon 2022 VC CONSULT FOLLOWUP Patient: LEELEE CEDILLO Exam Date: 06/10/2022 : 1950 Gender:F Ordering : DR ALFRED UMAÑA M.D. Admission #: [id number] Family : Order #: [id number] CLICK HERE TO VIEW EXAM RADIOLOGY REPORT [...] Lobato M.D. on 06/10/2022 at 12:36 Normal [facility] VC EXT VENOUS RT LIMITEDon 0 06-10-2022 VC EXT VENOUS RT LIMITED Patient: LEELEE CEDILLO Exam Date: 06/10/2022 : 1950 Gender:F Ordering : DR ALFRED UMAÑA M.D. Admission #: [id number] Family : Order #: [id number] CLICK HERE TO VIEW EXAM RADIOLOGY REPORT [...] Lobato M.D. on 06/10/2022 at 12:33 Normal [facility] VC INJ FOAM SCLERO W US MLTI on 06-03-2022 VC INJ FOAM SCLERO W US MLTI Patient: LEELEE CEDILLO Exam Date: 06/03/2022 : 1950 Gender:F Ordering : DR ALFRED UMAÑA M.D. Admission #: [id number] Family : Order #: [id number] CLICK HERE TO VIEW EXAM RADIOLOGY REPORT PROCEDURE: VEIN CENTER INJECTION FOAM SCLEROSING SOLUTION WITH ULTRASOUND MULTIPLE VEINS COMPARISON: None. Pre-operative Diagnosis: CEAP class C6 venous insufficiency with pain, tenderness, edema and incompetent right small saphenous vein and buckle and button maker vein, incompetent varicose veins, venous insufficiency right leg secondary to venous incompetence Post-operative Diagnosis: CEAP class C6 venous insufficiency with pain, tenderness, edema and incompetent right small saphenous vein and buckle and button maker vein, incompetent varicose veins, venous insufficiency right [...] treated l (more content not included)... Normal [facility] VC CONSULT FOLLOWUPon 2022 VC CONSULT FOLLOWUP Patient: LEELEE CEDILLO Exam Date: 05/28/2022 : 1950 Gender:F Ordering : DR ALFRED UMAÑA M.D. Admission #: [id number] Family : Order #: [id number] CLICK HERE TO VIEW EXAM RADIOLOGY REPORT [...] Umaña MD on 05/28/2022 at 11:44 Normal [facility] VC EXT VENOUS RT LIMITEDon 0 05-28-2022 VC EXT VENOUS RT LIMITED Patient: LEELEE CEDILLO Exam Date: 05/28/2022 : 1950 Gender:F Ordering : DR ALFRED UMAÑA M.D. Admission #: [id number] Family : Order #: [id number] CLICK HERE TO VIEW EXAM RADIOLOGY REPORT [...] extends to distal lower leg. Thrombus in buckle and button maker distal medial lower leg 2.8 mm from [...] MD on 05/28/2022 at 11:30 Normal [facility] CBC AUTO DIFFon 05-21-2022 BASO # 0.1 103/ul Normal 0.0-0.1 [facility] Comment on above: Performed By: #### C BC #### [facility] [address] [place] [address] Dr. Salvador Yung Basophils/100 WBC (Bld) 0.6 % Normal 0.2-2.0 [facility] Comment on above: Performed By: #### C BC #### [facility] [address] [address] [address] Salvador Yung EO # 0.1 103/ul Normal 0.0-0.7 [facility] Comment on above: Performed By: #### C BC #### [facility] [address] [place] [address] Dr. Salvador Yung Eosinophils/100 WBC (Bld) 0.6 % Critically low 0.9-7.0 [facility] Comment on above: Performed By: #### C BC #### [facility] [address] [place] [address] Dr. Salvador Yung Erythrocyte distribution width (RBC) [Ratio] 12.4 % Normal 11.0-15.0 [facility] Comment on above: Performed By: #### C BC #### [facility] [address] [place] [address] Dr. Salvador Yung Hematocrit (Bld) [Volume fraction] 43.1 % Normal 36.0-48.0 [facility] Comment on above: Performed By: #### C BC #### [facility] [address] [place] [address] Dr. Salvador Yung Hemoglobin (Bld) [Mass/Vol] 13.8 g/dL Normal 12.0-16.0 [facility] Comment on above: Performed By: #### C BC #### [facility] [address] [place] [address] Dr. Salvador Yung IG # 0.06 10e3/ul Critically high 0.00-0.03 [facility] Comment on above: Performed By: #### C BC #### [facility] [address] [place] [address] Dr. Salvador Yung IG % 0.7 % Critically high 0.0-0.5 [facility] Comment on above: Performed By: #### C BC #### [facility] [address] [place] [address] Dr. Salvador Yung LYMPH # 1.7 103/ul Normal 1.2-3.8 [facility] Comment on above: Performed By: #### C BC #### [facility] [address] [place] [address] Dr. Salvador Yung Lymphocytes/100 WBC (Bld) 20.2 % Critically low 20.5-60.0 [facility] Comment on above: Performed By: #### C BC #### [facility] [address] [place] [address] Dr. Salvador Yung MANUAL DIFF REQ NO Normal [facility] Comment on above: Performed By: #### C BC #### [facility] [address] [address] [address] Salvador Yung MCH (RBC) [Entitic mass] 30.1 pg Normal 26.7-34.0 [facility] Comment on above: Performed By: #### C BC #### [facility] [address] [place] [address] Dr. Salvador Yung MCHC (RBC) [Mass/Vol] 32.0 g/dL Normal 29.9-35.2 [facility] Comment on above: Performed By: #### C BC #### [facility] [address] [place] [address] Dr. Salvador Yung MCV (RBC) [Entitic vol] 93.9 fL Normal 81.0-99.0 [facility] Comment on above: Performed By: #### C BC #### [facility] [address] [place] [address] Dr. Salvador Yung MONO # 0.5 103/ul Normal 0.3-0.8 [facility] Comment on above: Performed By: #### C BC #### [facility] [address] [place] [address] Dr. Salvador Yung Monocytes/100 WBC (Bld) 6.1 % Normal 1.7-12.0 [facility] Comment on above: Performed By: #### C BC #### [facility] [address] [place] [address] Dr. Salvador Yung NEUT # 6.1 103/ul Normal 1.4-6.5 [facility] Comment on above: Performed By: #### C BC #### [facility] [address] [place] [address] Dr. Salvador Yung Neutrophils/100 WBC (Bld) 71.8 % Normal 43.0-75.0 [facility] Comment on above: Performed By: #### C BC #### [facility] [address] [place] [address] Dr. Salvador Yung Platelet mean volume (Bld) [Entitic vol] 8.2 fL Critically low 9.5-13.5 [facility] Comment on above: Performed By: #### C BC #### [facility] [address] [address] [address] Salvador Yung PLT 246 103/ul Normal 150-450 [facility] Comment on above: Performed By: #### C BC #### [facility] [address] [address] [address] Salvador Yung RBC 4.59 106/ul Normal 4.20-5.40 [facility] Comment on above: Performed By: #### C BC #### [facility] [address] [address] [address] Salvador Yung WBC 8.5 103/ul Normal 4.0-11.0 [facility] Comment on above: Performed By: #### C BC #### [facility] [address] [place] [address] Dr. Salvador Yung FREE T3on 05-21-2022 FREE T3 2.14 pg/mlL Critically low 2.18-3.98 [facility] Comment on above: Performed By: #### P OCGLUC #### [facility] [address] [place] [address] Dr. Salvador Yung GLYCOHEMOGLOBIN A1Con 2022 ADA RECOMMENDATION SEE BELOW Normal [facility] Comment on above: Result Comment: ADA RECOMMENDED LIMIT 4.0 - 6.0 ADA THERAPEUTIC TARGET < 7.0 ACTION SUGGESTED > 7.0 Performed By: #### P OCGLUC #### [facility] [address] [place] [address] Dr. Salvador Yung Glucose [Mass/Vol] 100 mg/dL Normal [facility] Comment on above: Performed By: #### P OCGLUC #### [facility] [address] [place] [address] Dr. Salvador Yung HbA1c (Bld) [Mass fraction] 5.1 % Normal 4.5-6.2 [facility] Comment on above: Performed By: #### P OCGLUC #### [facility] [address] [place] [address] Dr. Salvador Yung LIPID PROFILEon 05-21-2022 CHOL-HDL RATIO NORM SEE BELOW Normal [facility] Comment on above: Result Comment: 3.3 - 4.4 LOW RISK 4.4 - 7.1 AVERAGE RISK 7.1 - 11.0 MODERATE RISK >11.0 HIGH RISK Performed By: #### P OCGLUC #### [facility] [address] [address] [address] Salvador Yung Cholesterol [Mass/Vol] 164 mg/dL Normal <=200 [facility] Comment on above: Performed By: #### P OCGLUC #### [facility] [address] [address] [address] Salvador Yung Cholesterol in HDL [Mass/Vol] 61 mg/dL Critically high 40-60 [facility] Comment on above: Performed By: #### P OCGLUC #### [facility] [address] [place] [address] Dr. Salvador Yung Cholesterol in LDL [Mass/Vol] 90.2 mg/dL Normal [facility] Comment on above: Performed By: #### P OCGLUC #### [facility] [address] [place] [address] Dr. Salvador Yung Cholesterol.total/ Cholesterol in HDL [Mass ratio] 2.7 {ratio} Normal [facility] Comment on above: Performed By: #### P OCGLUC #### [facility] [address] [place] [address] Dr. Salvadro Yung HDL NORMAL > or = 60 mg/dl - LO W CARDIOVASCULAR RISK <40 mg/dl - HIGH CARDIOVASCULAR RISK Normal [facility] Comment on above: Performed By: #### P OCGLUC #### [facility] [address] [address] [address] Salvador Yung LDL CALC NORMAL SEE BELOW Normal [facility] Comment on above: Result Comment: <100 mg/dl OPTIMAL 100 - 129 mg/dl NEAR OR ABOVE OPTIMAL 130 - 159 mg/dl BORDERLINE HIGH 160 - 189 mg/dl HIGH >190 mg/dl VERY HIGH Performed By: #### P OCGLUC #### [facility] [address] [place] [address] Dr. Salvador Yung Triglyceride [Mass/Vol] 64 mg/dL Normal <=150 [facility] Comment on above: Performed By: #### P OCGLUC #### [facility] [address] [address] [address] Salvador Yung VLDL CALC 12.8 mg/dL Normal [facility] Comment on above: Performed By: #### P OCGLUC #### [facility] [address] [address] [address] Salavdor Yung PROF 14(COMP METB)on 023 Albumin [Mass/Vol] 3.2 g/dL Critically low 3.4-5.0 [facility] Comment on above: Performed By: #### P OCGLUC #### [facility] [address] [address] [address] Salvador Yung Albumin/Globulin [Mass ratio] 0.7 {ratio} Normal [facility] Comment on above: Performed By: #### P OCGLUC #### [facility] [address] [place] [address] Dr. Salvador Yung ALP [Catalytic activity/Vol] 68 U/L Normal 46-116 [facility] Comment on above: Performed By: #### P OCGLUC #### [facility] [address] [place] [address] Dr. Salvador Yung ALT [Catalytic activity/Vol] 25 U/L Normal 14-59 [facility] Comment on above: Performed By: #### P OCGLUC #### [facility] [address] [place] [address] Dr. Salavdor Yung Anion gap [Moles/Vol] 11.8 mmol/L Normal [facility] Comment on above: Performed By: #### P OCGLUC #### [facility] [address] [place] [address] Dr. Salvador Yung AST [Catalytic activity/Vol] 20 U/L Normal 15-37 [facility] Comment on above: Performed By: #### P OCGLUC #### [facility] [address] [place] [address] Dr. Salvador Yung Bilirubin [Mass/Vol] 0.5 mg/dL Normal 0.2-1.0 [facility] Comment on above: Performed By: #### P OCGLUC #### [facility] [address] [place] [address] Dr. Salvador Yung Calcium [Mass/Vol] 8.9 mg/dL Normal 8.5-10.1 [facility] Comment on above: Performed By: #### P OCGLUC #### [facility] [address] [address] [address] Salvador Yung Chloride [Moles/Vol] 105 mmol/L Normal 98-107 [facility] Comment on above: Performed By: #### P OCGLUC #### [facility] [address] [address] [address] Salvador Yung CO2 [Moles/Vol] 29.9 mmol/L Normal 21.0-32.0 [facility] Comment on above: Performed By: #### P OCGLUC #### [facility] [address] [place] [address] Dr. Salvador Yung Creatinine [Mass/Vol] 0.74 mg/dL Normal 0.55-1.02 [facility] Comment on above: Performed By: #### P OCGLUC #### [facility] [address] [address] [address] Salvador Yung EGFR-AF FILIPINO >60 Normal >=60 [facility] Comment on above: Performed By: #### P OCGLUC #### [facility] [address] [address] [address] Salvador Yung EGFR-NON AF FILIPINO >60 Normal >=60 [facility] Comment on above: Performed By: #### P OCGLUC #### [facility] [address] [address] [address] Salvador Yung Globulin (S) [Mass/Vol] 4.3 g/dL Normal [facility] Comment on above: Performed By: #### P OCGLUC #### [facility] [address] [address] [address] Salvador Yung Glucose [Mass/Vol] 88 mg/dL Normal 74-106 [facility] Comment on above: Performed By: #### P OCGLUC #### [facility] [address] [address] [address] Salvador Yung Potassium [Moles/Vol] 3.7 mmol/L Normal 3.5-5.1 [facility] Comment on above: Performed By: #### P OCGLUC #### [facility] [address] [place] [address] Dr. Salvador Yung Protein [Mass/Vol] 7.5 g/dL Normal 6.4-8.2 [facility] Comment on above: Performed By: #### P OCGLUC #### [facility] [address] [place] [address] Dr. Salvador Yung Sodium [Moles/Vol] 143 mmol/L Normal 136-145 [facility] Comment on above: Performed By: #### P OCGLUC #### [facility] [address] [place] [address] Dr. Salvador Yung Urea nitrogen [Mass/Vol] 11.0 mg/dL Normal 7.0-18.0 [facility] Comment on above: Performed By: #### P OCGLUC #### [facility] [address] [place] [address] Dr. Salvador Yung Urea nitrogen/Creatinin e [Mass ratio] 14.9 mg/mg Normal [facility] Comment on above: Performed By: #### P OCGLUC #### [facility] [address] [place] [address] Dr. Salvador Yung T4on 05-21-2022 T4 [Mass/Vol] 11.60 ug/dL Normal 4.80-13.90 [facility] Comment on above: Performed By: #### P OCGLUC #### [facility] [address] [place] [address] Dr. Salvador Yung TSHon 05-21-2022 TSH 0.165 uIU/mL Critically low 0.358-3.74 0 [facility] Comment on above: Performed By: #### P OCGLUC #### [facility] [address] [place] [address] Dr. Salvador Yung VC ENDOVENOUS ABL 1ST V RTon 05-21-2022 VC ENDOVENOUS ABL 1ST V RT Patient: LEELEE CEDILLO Exam Date: 05/21/2022 : 1950 Gender:F Ordering : DR ALFRED UMAÑA M.D. Admission #: [id number] Family : Order #: [id number] CLICK HERE TO VIEW EXAM RADIOLOGY REPORT PROCEDURE: VEIN CENTER ENDOVENOUS ABLATION FIRST VEIN RIGHT SMALL SAPHENOUS VEIN COMPARISON: None. INDICATIONS: Pain co-occurrent and due to varicose veins of bilateral legs I83.813 OPERATIVE REPORT: The risks and benefits of the procedure had been previously discussed, and were rediscussed at length. Informed written consent was obtained by and Jameson Marinelli assisted. Time out procedure was performed. The right [...] MD on 05/21/2022 at 13:51 Normal [facility] VITAMIN D 25 OHon 05-21-2022 VIT D 25-OH 25.1 ng/mL Normal [facility] Comment on above: Performed By: #### V ITAD #### [facility] [address] [place] [address] Dr. Salvador Yung VIT D RANGES SEE BELOW Normal [facility] Comment on above: Result Comment: <20 ng/mL Vit D deficient 20 - <30 ng/mL Vit D insufficient 30 - 100 ng/mL Vit D sufficient >100 ng/mL Potential Toxicity Performed By: #### V ITAD #### [facility] [address] [place] [address] Dr. Salvador Yung XR HIP LT 2 [...] by: MARI LORENZO Date: 2022-05-21 16:26 Normal [facility] VC COMP CONSULTATIONon 05-01 VC COMP CONSULTATION Patient: LEELEE CEDILLO Exam Date: 05/01/2022 : 1950 Gender:F Ordering : DR. ADELE FLEMING D.P.M. Admission #: [id number] Family : Order #: [id number] CLICK HERE [...] small saphenous vein, right lower extremity incompetent buckle and button maker veins, and bilateral lower extremity incompetent branch [...] ablation of right small saphenous vein and buckle and button maker vein. 4. Microfoam chemical ablation of dilated, [...] Lobato M.D. on 05/01/2022 at 15:27 Normal [facility] VC VENOUS REFLUX SAMI LMTon 0 05-01-2022 VC VENOUS REFLUX SAMI LMT Patient: LEELEE CEDILLO Exam Date: 05/01/2022 : 1950 Gender:F Ordering : DR. ADELE FLEMING D.P.M. Admission #: [id number] Family : DR ALFRED UMAÑA M.D. Order #: [id number] CLICK HERE TO VIEW EXAM RADIOLOGY REPORT [...] chronic thrombus visualized Compressibility: Normal Flow: Normal Senior Analyst Developer: Dist/med calf 2.6mm with 0s reflux. Mid/med calf 3.5mm with 0s reflux. Tech Note: GSV has been previously stripped. Patent varicose vein mid/med calf 2.3mm with 0.5s reflux. Patent varicose vein prox/med calf 3.4mm with 1.2s reflux. Patent varicose vein dist/med thigh 5.4mm with 0.8s reflux. CONCLUSION: 1. Dilated, incompetent right small saphenous vein. 2. 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 3. Consultation for endovenous laser ablation is recommended. Dictated by: Julio Lobato M.D. on 05/01/2022 at 14:06 Approved by: Julio Lobato M.D. on 05/01/2022 at 14:28 Normal [facility] Coding Summary.on 03-11-2022 Coding Summary. Normal [facility] ED Traumaon 03-09-2022 ED Trauma [id number]#1.00CD:127 Normal [facility] Consent for Procedure/Surger yon 03-08-2022 Consent for Procedure/Surgery [id number]#1.00CD:127 Normal [facility] Consent for Treatmenton 02-18 Consent for Treatment [id number]#1.00CD:127 Normal [facility] Discharge Instructionson Discharge Instructions [id number]#1.00CD:127 Normal [facility] ED Clinical Summaryon 2021 ED Clinical Summary Normal [facility] ED Note-Physicianon 03-08-20 ED Note-Physician Normal [facility] Comment on above: Result Comment: Elec tronically Signed By: Wm Nagy DO.br\Date and Time Signed: 03/08/22 21:11 EST ED Patient Education Noteon 03-08-2022 ED Patient Education Note Normal [facility] ED Patient Summaryon 022 ED Patient Summary Normal [facility] EMS Documentationon 03-08-20 EMS Documentation Normal [facility] EMS Documentation Normal [facility] Monitor Recordon 03-08-2022 Monitor Record [id number]#1.00CD:127 Normal [facility] Monitor Record [id number]#1.00CD:127 Normal [facility] Pre-Arrival Noteon Pre-Arrival Note Normal [facility] Respiratory Therapy Noteson 03-08-2022 Respiratory Therapy Notes conscious sedation on Nguyen, Leelee. Used co2 monitor and one liter of 02. patient maintained 38 co2 and 99 O2. Last approx 40 min. Normal [facility] XR Hip 2-3 Views Left + Pelv yasir 03-08-2022 XR Hip 2-3 Views Left + Pelvis Normal [facility] XR Hip 2-3 Views Left + Pelvis Normal [facility] BLEEDING TIMEon 03-06-2022 BLEEDING TIME 10.5 min Critically high 1.0-8.0 [facility] Comment on above: Performed By: #### B LTM #### [facility] [address] [place] [address] Dr. Salvador Yung CBC AUTO DIFFon 03-06-2022 BASO # 0.1 103/ul Normal 0.0-0.1 [facility] Comment on above: Performed By: #### C BC #### [facility] [address] [place] [address] Dr. Salvador Yung Basophils/100 WBC (Bld) 0.7 % Normal 0.2-2.0 [facility] Comment on above: Performed By: #### C BC #### [facility] [address] [place] [address] Dr. Salvador Yung EO # 0.1 103/ul Normal 0.0-0.7 [facility] Comment on above: Performed By: #### C BC #### [facility] [address] [place] [address] Dr. Salvador Yung Eosinophils/100 WBC (Bld) 0.7 % Critically low 0.9-7.0 [facility] Comment on above: Performed By: #### C BC #### [facility] [address] [place] [address] Dr. Salvador Yung Erythrocyte distribution width (RBC) [Ratio] 12.9 % Normal 11.0-15.0 [facility] Comment on above: Performed By: #### C BC #### [facility] [address] [place] [address] Dr. Salvador Yung Hematocrit (Bld) [Volume fraction] 41.3 % Normal 36.0-48.0 [facility] Comment on above: Performed By: #### C BC #### [facility] [address] [address] [address] Salvador Yung Hemoglobin (Bld) [Mass/Vol] 13.7 g/dL Normal 12.0-16.0 [facility] Comment on above: Performed By: #### C BC #### [facility] [address] [address] [address] Salvador Yung IG # 0.05 10e3/ul Critically high 0.00-0.03 [facility] Comment on above: Performed By: #### C BC #### [facility] [address] [place] [address] Dr. Salvador Yung IG % 0.7 % Critically high 0.0-0.5 [facility] Comment on above: Performed By: #### C BC #### [facility] [address] [place] [address] Dr. Salvador Yung LYMPH # 1.4 103/ul Normal 1.2-3.8 [facility] Comment on above: Performed By: #### C BC #### [facility] [address] [place] [address] Dr. Salvador Yung Lymphocytes/100 WBC (Bld) 18.9 % Critically low 20.5-60.0 [facility] Comment on above: Performed By: #### C BC #### [facility] [address] [place] [address] Dr. Salvador Yung MANUAL DIFF REQ NO Normal [facility] Comment on above: Performed By: #### C BC #### [facility] [address] [place] [address] Dr. Salvador Yung MCH (RBC) [Entitic mass] 30.3 pg Normal 26.7-34.0 [facility] Comment on above: Performed By: #### C BC #### [facility] [address] [place] [address] Dr. Salvador Yung MCHC (RBC) [Mass/Vol] 33.2 g/dL Normal 29.9-35.2 [facility] Comment on above: Performed By: #### C BC #### [facility] [address] [address] [address] Salvador Yung MCV (RBC) [Entitic vol] 91.4 fL Normal 81.0-99.0 [facility] Comment on above: Performed By: #### C BC #### [facility] [address] [address] [address] Salvador Yung MONO # 0.7 103/ul Normal 0.3-0.8 [facility] Comment on above: Performed By: #### C BC #### [facility] [address] [address] [address] Salvador Yung Monocytes/100 WBC (Bld) 9.9 % Normal 1.7-12.0 [facility] Comment on above: Performed By: #### C BC #### [facility] [address] [address] [address] Salvador Yung NEUT # 5.2 103/ul Normal 1.4-6.5 [facility] Comment on above: Performed By: #### C BC #### [facility] [address] [address] [address] Salvador Yung Neutrophils/100 WBC (Bld) 69.1 % Normal 43.0-75.0 [facility] Comment on above: Performed By: #### C BC #### [facility] [address] [address] [address] Salvador Yung Platelet mean volume (Bld) [Entitic vol] 7.9 fL Critically low 9.5-13.5 [facility] Comment on above: Performed By: #### C BC #### [facility] [address] [address] [address] Salvador Yung PLT 223 103/ul Normal 150-450 [facility] Comment on above: Performed By: #### C BC #### [facility] [address] [address] [address] Salvador Yung RBC 4.52 106/ul Normal 4.20-5.40 [facility] Comment on above: Performed By: #### C BC #### [facility] [address] [place] [address] Dr. Salvador Yung WBC 7.5 103/ul Normal 4.0-11.0 [facility] Comment on above: Performed By: #### C BC #### [facility] [address] [place] [address] Dr. Salvador Yung IRONon 03-06-2022 Iron [Mass/Vol] 83.0 ug/dL Normal 50.0-170.0 [facility] Comment on above: Performed By: #### I ESTEFANY #### [facility] [address] [place] [address] Dr. Salvador Yung PROTIMEon 03-06-2022 INR Coag (PPP) [Relative time] 0.95 {INR} Normal [facility] Comment on above: Performed By: #### P TT, PT #### [facility] [address] [place] [address] Dr. Salvador Yung INR GUIDELINES SEE BELOW Normal [facility] Comment on above: Result Comment: YOJANA RED INR: 2.0 - 3.0 CONDITIONS NOT LISTED BELOW 2.5 - 3.5 FOR PROSTHETIC HEART VALVE REPLACEMENT 2.5 - 3.5 RECURRENT THROMBOSIS Performed By: #### P TT, PT #### [facility] [address] [place] [address] Dr. Salvador Yung PT Coag (PPP) [Time] 10.3 s Normal 9.0-11.6 [facility] Comment on above: Performed By: #### P TT, PT #### [facility] [address] [place] [address] Dr. Salvador Yung PTTon 03-06-2022 aPTT Coag (Bld) [Time] 22.1 s Critically low 22.3-36.2 [facility] Comment on above: Performed By: #### P TT, PT #### [facility] [address] [place] [address] Dr. Salvador Yung SCREENING MAMMOGRAM W/DANIEL, BILATERAL*on [...] IS VERY IMPORTANT TO YOUR HEALTH. CURRENT [place] [employer] GUIDELINES RECOMMENDS ANNUAL MAMMOGRAPHY BEGINNING AT AGE 41. THIS FACILITY USUALLY USES A REMINDER SYSTEM TO ENSURE ALL POSITIONS RECEIVED REMINDER NOTIFICATIONS AT THE TIME BASED ON THE RECOMMENDATIONS OF THIS EXAM. Report reported and signed by Julio Martines on 02/28/2022 1602 Normal [facility] Electrical Engineer Covid-19 PCR (CVDTBH)on 12-19 SARS-CoV-2 (COVID-19) RNA VIVIANA+probe Ql (Unsp spec) Not detected Normal NOT DETECTED [facility] Comment on above: Result Comment: This test is not yet approved or cleared by the [place] FDA. When there are no FDA-approved or cleared tests available, and other criteria are met, FDA can make tests available under an emergency access mechanism called an Emergency Use Authorization (EUA). The EUA for this test is supported by the [employer] Engineer of Health and Human Service's (HHS's) declaration [...] SARS-CoV-2. Performed By: #### P OCGLUC #### [facility] [address] [place] [address] Dr. Salvador Yung MRI LSPINE WO CONon 12-11-19 22 MRI LSPINE WO CON HISTORY: Chronic low back pain with left leg pain. Prior low back surgery. Lumbar disc disease. MRI [facility] WO CON: 12/09/2021 10:11 AM EDT COMPARISON: [...] SARA LAUREN Date: 2021-12-10 12:11 Normal [facility] COVID-19 Positive/Negativeon 05-04-2020 COVID-19 Positive/Negative Negative Negative [facility] Comment on above: Testing for SARS-CoV -2 by RT-PCRThis test was developed and its performance characteristics determined by [employer] ([employer]) and validated at the [facility]. This test has not been FDA [...] Otheron 05-04-2020 Coronavirus 2019 PCR Interp N/A [facility] Automated basophil %on 04-24 Basophils/100 WBC (Bld) 0.6 % [facility] Automated basophil counton 0 04-24-2020 Basophils (Bld) [#/Vol] 0.0 10*3/uL 0.0-0.[address] [facility] Automated blood lymphocyte c ount (number/volume)on 04-24-2020 Lymphocytes (Bld) [#/Vol] 1.0 10*3/uL 1.00-4.[address] [facility] Automated blood lymphocyte c ount as percentage of total leukocyteson 04-24-2020 Lymphocytes/100 WBC (Bld) 17.0 % [facility] Automated blood monocyte cou nton 04-24-2020 Monocytes (Bld) [#/Vol] 0.3 10*3/uL 0.0-0.[address] [facility] Automated blood platelet cou nt (count/volume)on 04-24-2020 Platelets (Bld) [#/Vol] 224 10*3/uL 150-[address] [facility] Automated blood platelet vikki n volume measurementon 04-24-2020 Platelet mean volume (Bld) [Entitic vol] 7.2 fL 6.3-10.[address] [facility] Automated eosinophil %on Eosinophils/100 WBC (Bld) 3.5 % [facility] Automated eosinophil counton 04-24-2020 Eosinophils (Bld) [#/Vol] 0.2 10*3/uL 0.0-0.[address] [facility] Automated erythrocyte distri bution width ratioon 04-24-2020 Erythrocyte distribution width (RBC) [Ratio] 13.0 % 11.9-15.[address] [facility] Automated erythrocyte mean c orpuscular hemoglobin (mass per erythrocyte)on 04-24-2020 MCH (RBC) [Entitic mass] 27.7 pg 24.7-34.[address] [facility] Automated erythrocyte mean c orpuscular hemoglobin concentration measurement (mass/volon 04-24-2020 MCHC (RBC) [Mass/Vol] 33.2 g/dL 32.0-35.[address] [facility] Automated erythrocyte mean c orpuscular volumeon 04-24-2020 MCV (RBC) [Entitic vol] 83.3 fL 80-[address] [facility] Automated erythrocytes count in urine sediment (number/area)on 04-24-2020 RBC Auto (Urine sed) [#/Area] None seen [HPF] [facility] Automated leukocytes count i n urine sediment (number/area)on 04-24-2020 WBC Auto (Urine sed) [#/Area] 0-1 [HPF] [facility] Automated monocyte %on 04-24 Monocytes/100 WBC (Bld) 6.1 % [facility] Automated neutrophil %on Neutrophils/100 WBC (Bld) 72.8 % [facility] Automated urine color determ inationon 04-24-2020 Color (U) Yellow Yellow [facility] Blood erythrocytes automated count (number/volume)on 04-24-2020 RBC (Bld) [#/Vol] 4.50 10*6/uL 3.60-5.00 [facility] Blood hemoglobin measurement (mass/volume)on 04-24-2020 Hemoglobin (Bld) [Mass/Vol] 12.5 g/dL 11.8-15.[address] [facility] Blood leukocytes automated c ount (number/volume)on 04-24-2020 WBC (Bld) [#/Vol] 5.7 10*3/uL 3.8-11.6 [facility] Blood neutrophil count by au tomated method (number/volume)on 04-24-2020 Neutrophils (Bld) [#/Vol] 4.2 10*3/uL 1.8-7.[address] [facility] Estimated glomerular filtrat ion rate (GFR) non- Americanon 04-24-2020 GFR/1.73 sq M predicted among non-blacks MDRD (S/P/Bld) [Vol rate/Area] mL/min/{1.73_m2} [facility] Hematocrit [Volume Fraction] of Blood by Automated counton 04-24-2020 Hematocrit (Bld) [Volume fraction] 37.5 % 34.0-46.[address] [facility] Otheron 04-24-2020 GFR/1.73 sq M.predicted MDRD (S/P/Bld) [Vol rate/Area] mL/min/{1.73_m2} [facility] Comment on above: GFR estimated refere nce range: According to KDOQI guidelines, <60 ml/min/1.73m2 is sufficient to diagnose a patient with chronic kidney disease. Nucleated RBC/100 WBC (Bld) [Ratio] 0.1 % 0-0.[address] [facility] Creatinine Clearance (Chem N/A [facility] Serum or plasma calcium kelly urement (mass/volume)on 04-24-2020 Calcium [Mass/Vol] 9.3 mg/dL 8.2-10.2 [facility] Serum or plasma chloride vikki surement (moles/volume)on 04-24-2020 Chloride [Moles/Vol] 101 mmol/L 95-[address] [facility] Serum or plasma creatinine m easurement with calculation of estimated glomerular filtron 04-24-2020 Creatinine [Mass/Vol] 0.88 mg/dL 0.44-1.[address] [facility] Serum or plasma glucose kelly urement (mass/volume)on 04-24-2020 Glucose [Mass/Vol] 116 mg/dL 70-100 [facility] Comment on above: ADA recommended refe rence rangeRandom Glucose Reference Range is dependent on time and content of last meal. Glucose of more than 200 mg/dL in a nonstressed, ambulatory subject supports the diagnosis of Diabetes Mellitus. Serum or plasma potassium me asurement (moles/volume)on 04-24-2020 Potassium [Moles/Vol] 3.8 mmol/L 3.5-5.[address] [facility] Serum or plasma sodium measu rement (moles/volume)on 04-24-2020 Sodium [Moles/Vol] 136 mmol/L 136-146 [facility] Serum or plasma total carbon dioxide measurement (moles/volume)on 04-24-2020 CO2 [Moles/Vol] 23.1 mmol/L 22.0-30.0 [facility] Serum or plasma urea nitroge n measurement (mass/volume)on 04-24-2020 Urea nitrogen [Mass/Vol] 10 mg/dL 9-[address] [facility] Specific gravity of Urine by Automated test stripon 04-24-2020 Specific gravity (U) [Rel density] 1.007 1.001-1.[address] [facility] Squamous epithelial cells de tection in urine sediment by light microscopyon 04-24-2020 Epithelial cells.squamous LM Ql (Urine sed) None seen [HPF] [facility] Urinalysison 04-24-2020 Hyaline casts LM Ql (Urine sed) None seen [LPF] [facility] Urine bacteria detection by automated methodon 04-24-2020 Bacteria Auto Ql (U) None seen None Seen [facility] Urine clarity by refractomet ry automatedon 04-24-2020 Clarity Refractometry automated (U) Clear Clear [facility] Urine glucose measurement by automated test strip (mass/volume)on 04-24-2020 Glucose Auto test strip (U) [Mass/Vol] Normal mg/dL Normal [facility] Urine hemoglobin detection b y automated test stripon 04-24-2020 Hemoglobin Auto test strip Ql (U) Negative Negative [facility] Urine ketones measurement by automated test strip (mass/volume)on 04-24-2020 Ketones (U) [Mass/Vol] Negative Negative [facility] Urine leukocyte esterase det ection by automated test stripon 04-24-2020 Leukocyte esterase Auto test strip Ql (U) 1+ Negative [facility] Urine nitrite detection by t est stripon 04-24-2020 Nitrite Ql (U) Negative Negative [facility] Urine pH measurement by auto mated test stripon 04-24-2020 pH (U) 5.5 [pH] 5.0-9.[address] [facility] Urine protein measurement by automated test strip (mass/volume)on 04-24-2020 Protein (U) [Mass/Vol] Negative Negative [facility] Urine total bilirubin detect ion by test stripon 04-24-2020 Bilirubin Ql (U) Negative Negative [facility] Urine urobilinogen measureme nt by automated test strip (mass/volume)on 04-24-2020 Urobilinogen (U) [Mass/Vol] Normal mg/dL Normal [facility] CT L-SPINE WO CONTRASTon CT L-SPINE WO CONTRAST Patient Name: LEELEE CEDILLO STUDY: CT L-SPINE WO CONTRAST;; 10/13/2018 12:05 pm INDICATION: Low back pain LUMBAGO. COMPARISON: None. ACCESSION NUMBER(S): [id number] ORDERING CLINICIAN: HAMLET GILMAN TECHNIQUE: Axial sections [...] combination with facet joint arthropathy noted causing ehrv-bj-[id number] left neural foramina narrowing. Transpedicular screws of [...] left lateral recess, left neural foramina and ezco-il-gzqgepzi right neural foramina narrowing. IMPRESSION: Postoperative and [...] loosening. Electronically signed by: PATRICIA MURRAY MD [facility] SPINE, ENTIRE THORACIC/LUMBA R, INCLUDE SKULL, CERVICAL [...] pm INDICATION: LUMBAGO. COMPARISON: None ACCESSION NUMBER(S): [id number]; [id number] ORDERING CLINICIAN: HAMLET GILMAN FINDINGS: Long radiograph [...] Electronically signed by: ADELE BA MD Normal [facility] SPINE, LUMBOSACRAL; CMPLT(BE NDING)on 10-13-2018 SPINE, LUMBOSACRAL; CMPLT(BENDING) Patient Name: LEELEE CEDILLO STUDY: SPINE, ENTIRE THORACIC/LUMBAR, INCLUDE SKULL, CERVICAL ANSD SACRAL SPINE WHEN PERFORMED 2 OR 3 VIEW; SPINE, LUMBOSACRAL CMPLT(BENDING); 10/13/2018 12:05 pm INDICATION: LUMBAGO. COMPARISON: None ACCESSION NUMBER(S): [id number]; [id number] ORDERING CLINICIAN: HAMLET GILMAN FINDINGS: Long radiograph [...] Electronically signed by: ADELE BA MD Normal [facility] DX-XR Knee Complete 4+ Views Left IMPORTon 01-12-2017 DX-XR Knee Complete 4+ Views Left IMPORT Images were obtained outside of [facility] [id number] [facility] DX-XR Knee Complete 4+ Views Right IMPORTon 01-12-2017 DX-XR Knee Complete 4+ Views Right IMPORT Images were obtained outside of [facility] [id number] Normal [facility] DX-XR Spine Lumbosacral 2 or 3 Views IMPORTon 01-12-2017 DX-XR Spine Lumbosacral 2 or 3 Views IMPORT Images were obtained outside of [facility] [id number] [facility] CNOVon 01-07-2017 CNOV Office Visit (NEUSMARIA D) LEELEE CEDILLO ([id number]) 1950 FDate Time Provider Department01/07/17 2:50 PM BRUCE MATHEW During your visit today, we recorded the following information about you: Pulse Respiration Blood pressure Weight 77/minute 20/minute 158/74 107.5 kg Height 1.753 Bay Mathew MD 01/07/2017 5:[address] [facility] SURGERY OUTPATIENT CONSULTSERVICE DATE: 01/07/2017PCP: BOBO SueroLAWRENCE PROVIDER:Sara Vick MD[address] [facility] [id number] requested for an opinion regarding the evaluation [...] HX 2013 L4-5 PSFI, DR. 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 Mention ofappointment with Dr. Dickerson [id number]. This was her third referral as ofJanuary 20, 2017. A fourth referral was made to our office.Progress note from Dr. Marin dated December 24, 2016 regarding rash on her backand MRI findingsNEURO TESTS:NoneDATA REVIEWImaging and outside records reviewed and findings are as followsThe [facility] with and without. Status [...] Spine Intervention3. Follow up: Following aboveSIGNATURE: Bruce Mtahew MD PATIENT NAME: Leelee KamaraATE: January 07, 2017 : 3:17 PM PAGER:Bruce Mathew MD 01/07/2017 3:53 PM SignedLUMBAR DISC HERNIATIONReferring Provider: SARA VICK [[id number]]Allergies As of Date: 01/07/2017 Noted Allergy ReactionSULFA [...] TO PAIN MGT ANESTHESIA [[id number]] Order #: [id number]: 1 XR LUMBAR LIMITED 2V AP/LAT [[id number]] Order #: [id number] FUTURE XR KNEE GENERAL 4V AP BOTH/PA BOTH/LAT/MERC LT [[id number]] Order #: [id number] FUTURE XR KNEE GENERAL 4V AP BOTH/PA BOTH/LAT/MERC RT [[id number]] Order #: [id number] FUTUREPrescriptions as of 01/07/2017 Sig: PANTOPRAZOLE [id number] [...] on file.Follow-up and Disposition History RecordedEncounter Number: [id number] Status:Closed by BRUCE MATHEW MD on 01/07/17 [facility] PROGRESSon 01-07-2017 PROGRESS HNO ID: [id number] thor: Bruce MathewService: (none)Author Type: PhysicianType: Progress NotesFiled: 01/07/2017 5:15 PMNote Text:SPINE SURGERY OUTPATIENT CONSULTSERVICE DATE: 01/07/2017PCP: BOBO SueroEFERRMYLES PROVIDER:Sara Vick MD[address] [facility] [phone] requested for an opinion regarding the evaluation [...] HX 2013 L4-5 PSFI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 Mention ofappointment with Dr. Dickerson [id number]. This was her third referral as ofJanuary 20, 2017. A fourth referral was made to our office.Progress note from Dr. Marin dated December 24, 2016 regarding rash on herback and MRI findingsNEURO TESTS:NoneDATA REVIEWImaging and outside records reviewed and findings are as followsThe [facility] with and without. Status [...] 07, 2017 : 3:17 PM PAGER: Normal [facility] MR-MRI L-SPINE WO/W CON IMPO RTon 12-19-2016 MR-MRI L-SPINE WO/W CON IMPORT Images were obtained outside of [facility] [id number] Normal [facility] DX-XR Hip 2-3 Views Left + P cristine IMPORTon 11-29-2016 DX-XR Hip 2-3 Views Left + Pelvis IMPORT Images were obtained outside of [facility] [id number] [facility] DX-XR Spine Lumbosacral Mini mum 4 Views IMPORTon 11-29-2016 DX-XR Spine Lumbosacral Minimum 4 Views IMPORT Images were obtained outside of [facility] [id number] [facility] Vital Signs Date Time Vital Sign Value Performing Clinician Facility 05-15-2023 09:00-0500 Body weight 90.18 kg Larry Brown Other [facility] Other 05-15-2023 09:00-0500 Diastolic blood pressure 86 mm[Hg] Larry Brown Other [facility] Other 05-15-2023 09:00-0500 SaO2% (BldA) [Mass fraction] 99 % Larry Brown Other [facility] Other 05-15-2023 09:00-0500 Systolic blood pressure 148 mm[Hg] Larry Brown Other [facility] Other 05-13-2023 11:15-0500 Body height 175.26 cm Kiran Kessler Other [facility] Other 05-13-2023 11:15-0500 Body mass index (BMI) [Ratio] 29.24 kg/m2 Kiran Kessler Other [facility] Other 05-13-2023 11:15-0500 Body temperature 96.9 [degF] Kiran Pineda [facility] Other 05-13-2023 11:15-0500 Body weight 89.81 kg Kiran Mendozajudy Other [facility] Other 05-13-2023 11:15-0500 Diastolic blood pressure 80 mm[Hg] Kiran Mendozajudy Other [facility] Other 05-13-2023 11:15-0500 SaO2% (BldA) [Mass fraction] 99 % Kiran Mendozajudy Other [facility] Other 05-13-2023 11:15-0500 Systolic blood pressure 140 mm[Hg] Kiran Mendozajudy Other [facility] Other 04-03-2023 10:15-0500 Body height 175.26 cm Larry Brown Other [facility] Other 04-03-2023 10:15-0500 Diastolic blood pressure 74 mm[Hg] Larry Brown Other [facility] Other 04-03-2023 10:15-0500 SaO2% (BldA) [Mass fraction] 99 % Larry Brown Other [facility] Other 04-03-2023 10:15-0500 Systolic blood pressure 118 mm[Hg] Larry Brown Other [facility] Other 03-25-2023 11:05-0500 Diastolic blood pressure 75 mm[Hg] MD Sara Vick Work Phone: [facility] 03-25-2023 11:05-0500 Heart rate 72 /min MD Sara Vick Work Phone: [facility] 03-25-2023 11:05-0500 Respiratory rate 18 /min MD Sara Vick Work Phone: [facility] 03-25-2023 11:05-0500 SaO2% (BldA) [Mass fraction] 97 % MD Sara Vick Work Phone: [facility] 03-25-2023 11:05-0500 Systolic blood pressure 146 mm[Hg] MD Sara Vick Work Phone: [facility] 03-25-2023 10:27-0500 Inhaled oxygen flow rate 3 L/min MD Sara Vick Work Phone: [facility] 03-25-2023 10:14-0500 Body height 173.99 cm MD Sara Vcik Work Phone: [facility] 03-25-2023 10:14-0500 Body weight 88.45 kg MD Sara Vick Work Phone: [facility] 01-27-2023 14:30-0400 Body height 175.26 cm Dominique Shane Other [facility] Other 01-27-2023 14:30-0400 Diastolic blood pressure 70 mm[Hg] Dominique Shane Other [facility] Other 01-27-2023 14:30-0400 SaO2% (BldA) [Mass fraction] 98 % Dominique Shane Other [facility] Other 01-27-2023 14:30-0400 Systolic blood pressure 118 mm[Hg] Dominique Shane Other [facility] Other 01-09-2023 10:15-0400 Body height 175.26 cm Larry Brown Other [facility] Other 01-09-2023 10:15-0400 Body mass index (BMI) [Ratio] 29.56 kg/m2 Larry Brown Other [facility] Other 01-09-2023 10:15-0400 Body weight 90.81 kg Larry Brown Other [facility] Other 01-09-2023 10:15-0400 Diastolic blood pressure 78 mm[Hg] Larry Stephanie Other [facility] Other 01-09-2023 10:15-0400 SaO2% (BldA) [Mass fraction] 98 % Larry Stephanie Other [facility] Other 01-09-2023 10:15-0400 Systolic blood pressure 130 mm[Hg] Larry Stephanie Other [facility] Other 12-12-2022 09:30-0400 Body height 175.26 cm Larry Brown Other [facility] Other 12-12-2022 09:30-0400 Body mass index (BMI) [Ratio] 29.77 kg/m2 Larry Brown Other [facility] Other 12-12-2022 09:30-0400 Body weight 91.45 kg Larry Brown Other [facility] Other 12-12-2022 09:30-0400 Diastolic blood pressure 74 mm[Hg] Larry Stephanie Other [facility] Other 12-12-2022 09:30-0400 SaO2% (BldA) [Mass fraction] 99 % Larry Brown Other [facility] Other 12-12-2022 09:30-0400 Systolic blood pressure 122 mm[Hg] Larry Brown Other [facility] Other 09-19-2022 12:00-0400 Body height 175.26 cm Larry Brown Other [facility] Other 09-19-2022 12:00-0400 Body mass index (BMI) [Ratio] 30.8 kg/m2 Larry Brown Other [facility] Other 09-19-2022 12:00-0400 Body weight 94.62 kg Larry Brown Other [facility] Other 09-19-2022 12:00-0400 SaO2% (BldA) [Mass fraction] 95 % Larry Brown Other [facility] Other 09-18-2022 10:40-0400 Body height 172.7 cm Perfecto Burch MD Work Phone: [facility] [employer] 09-18-2022 10:40-0400 Body mass index (BMI) [Ratio] 31.26 kg/m2 Perfecto Burch MD Work Phone: [employer] 09-18-2022 10:40-0400 Body temperature 96.4 [degF] Perfecto Burch MD Work Phone: [employer] [facility] 09-18-2022 10:40-0400 Body weight 93.26 kg Perfecto Burch MD Work Phone: [facility] 07-27-2022 15:38-0400 Hourly Rounding Francisco Alcazar [facility] 07-27-2022 15:38-0400 Promise to Return Francisco Alcazar [facility] 07-27-2022 14:38-0400 Hourly Rounding Francisco Ottoniel [facility] 07-27-2022 14:38-0400 Promise to Return Francisco Ottoniel [facility] 07-27-2022 13:38-0400 Hourly Rounding Francisco Ottoniel [facility] 07-27-2022 13:38-0400 Promise to Return Francisco Ottoniel [facility] 07-27-2022 12:08-0400 Heart rate 106 /min Francisco Ottoniel [facility] 07-27-2022 12:08-0400 SaO2% (BldA) [Mass fraction] 100 % Francisco Ottoniel [facility] 07-27-2022 12:07-0400 Diastolic blood pressure 79 mm[Hg] Francisco Ottoniel [facility] 07-27-2022 12:07-0400 Mean blood pressure 103 mm[Hg] Francisco Ottoniel [facility] 07-27-2022 12:07-0400 Systolic blood pressure 151 mm[Hg] Francisco Ottoniel [facility] 07-27-2022 12:06-0400 Body temperature 97.16 [degF] Francisco Ottoniel [facility] 07-27-2022 07:46-0400 Heart rate 82 /min Francisco Ottoniel [facility] 07-27-2022 07:46-0400 SaO2% (BldA) [Mass fraction] 97 % Francisco Ottoniel [facility] 07-27-2022 07:46-0400 Diastolic blood pressure 81 mm[Hg] Francisco Ottoniel [facility] 07-27-2022 07:46-0400 Mean blood pressure 116 mm[Hg] Francisco Ottoniel [facility] 07-27-2022 07:46-0400 Systolic blood pressure 186 mm[Hg] Francisco Ottoniel [facility] 07-27-2022 07:45-0400 Body temperature 97.52 [degF] Francisco Ottoniel [facility] 07-27-2022 01:46-0400 Heart rate 89 /min Francisco Ottoniel [facility] 07-27-2022 01:46-0400 SaO2% (BldA) [Mass fraction] 96 % Francisco Ottoniel [facility] 07-27-2022 01:45-0400 Diastolic blood pressure 67 mm[Hg] Francisco Ottoniel [facility] 07-27-2022 01:45-0400 Mean blood pressure 89 mm[Hg] Francisco Ottoniel [facility] 07-27-2022 01:45-0400 Systolic blood pressure 134 mm[Hg] Francisco Ottoniel [facility] 07-27-2022 01:45-0400 Body temperature 98.06 [degF] Francisco Ottoniel [facility] 07-27-2022 01:45-0400 Blood Pressure Location Francisco Ottoniel [facility] 07-27-2022 01:45-0400 Respiratory rate 18 /min Francisco Ottoniel [facility] 07-26-2022 20:00-0400 Respiratory rate 16 /min Francisco Ottoniel [facility] 07-26-2022 17:20-0400 Blood Pressure Location Francisco Ottoniel [facility] 07-26-2022 17:20-0400 Heart rate 78 /min Francisco Ottoniel [facility] 07-26-2022 15:30-0400 Respiratory rate 12 /min Francisco Ottoniel [facility] 07-26-2022 15:00-0400 Mean blood pressure 122 mm[Hg] Francisco Ottoniel [facility] 07-26-2022 15:00-0400 Respiratory rate 8 /min Francisco Ottoniel [facility] 07-26-2022 14:30-0400 Mean blood pressure 112 mm[Hg] Francisco Ottoniel [facility] 07-26-2022 14:30-0400 Respiratory rate 12 /min Francisco Ottoniel [facility] 07-26-2022 13:30-0400 Mean blood pressure 95 mm[Hg] Francisco Ottoniel [facility] 07-26-2022 11:35-0400 gluc 105 mg/dL Francisco Ottoniel [facility] 07-26-2022 11:35-0400 gluc Francisco Ottoniel [facility] 07-26-2022 11:35-0400 Heart rate 72 /min Francisco Ottoniel [facility] 07-26-2022 11:35-0400 Respiratory rate 18 /min Francisco Ottoniel [facility] 05-02-2022 10:00-0500 Body height 175.26 cm Larry Brown Other [facility] Other 05-02-2022 10:00-0500 Body mass index (BMI) [Ratio] 31.89 kg/m2 Larry Brown Other [facility] Other 05-02-2022 10:00-0500 Body weight 97.98 kg Larry Brown Other [facility] Other 05-02-2022 10:00-0500 Diastolic blood pressure 80 mm[Hg] Larry Brown Other [facility] Other 05-02-2022 10:00-0500 Systolic blood pressure 134 mm[Hg] Larry Brown Other [facility] Other 03-08-2022 17:00-0500 Diastolic blood pressure 117 mm[Hg] Wm Yakov [facility] 03-08-2022 17:00-0500 Mean blood pressure 131 mm[Hg] Wm Yakov [facility] 03-08-2022 17:00-0500 SaO2% (BldA) [Mass fraction] 95 % Wm Yakov [facility] 03-08-2022 17:00-0500 Systolic blood pressure 160 mm[Hg] Wm Yakov [facility] 03-08-2022 16:30-0500 Diastolic blood pressure 85 mm[Hg] Wm Yakov [facility] 03-08-2022 16:30-0500 Heart rate 75 /min Wm Yakov [facility] 03-08-2022 16:30-0500 Mean blood pressure 94 mm[Hg] Wm Yakov [facility] 03-08-2022 16:30-0500 Respiratory rate 15 /min Wm Yakov [facility] 03-08-2022 16:30-0500 SaO2% (BldA) [Mass fraction] 98 % Wm Yakov [facility] 03-08-2022 16:30-0500 Systolic blood pressure 112 mm[Hg] Wm Yakov [facility] 03-08-2022 16:10-0500 Diastolic blood pressure 74 mm[Hg] Wm Yakov [facility] 03-08-2022 16:10-0500 Heart rate 93 /min Wm Yakov [facility] 03-08-2022 16:10-0500 Mean blood pressure 90 mm[Hg] Wm Yakov [facility] 03-08-2022 16:10-0500 Respiratory rate 14 /min Wm Yakov [facility] 03-08-2022 16:10-0500 SaO2% (BldA) [Mass fraction] 98 % Wm Yakov [facility] 03-08-2022 16:10-0500 Systolic blood pressure 122 mm[Hg] Wm Yakov [facility] 03-08-2022 15:15-0500 Respiratory rate 18 /min Wm Yakov [facility] 03-08-2022 15:00-0500 Hourly Rounding Wm Yakov [facility] 03-08-2022 15:00-0500 Promise to Return Wm Yakov [facility] 03-08-2022 14:45-0500 Respiratory rate 20 /min Wm Yakov [facility] 03-08-2022 14:15-0500 Respiratory rate 20 /min Wm Yakov [facility] 03-08-2022 14:14-0500 Hourly Rounding Wm Nagy [facility] 03-08-2022 14:14-0500 Promise to Return Wm Nagy [facility] 03-08-2022 13:54-0500 Heart rate 99 /min Wm Yakov [facility] 03-08-2022 13:37-0500 Body temperature 97.7 [degF] Wm Nagy [facility] 03-08-2022 13:37-0500 Heart rate 104 /min Wm Nagy [facility] 03-08-2022 13:00-0500 Hourly Rounding Wm Nagy [facility] 03-08-2022 13:00-0500 Promise to Return Wm Nagy [facility] 03-07-2022 11:00-0500 Body height 175.26 cm Larry Stephanie Other [facility] 03-07-2022 11:00-0500 Body mass index (BMI) [Ratio] 32.54 kg/m2 Larry Brown Other [facility] Other 03-07-2022 11:00-0500 Body weight 99.97 kg Larry Brown Other [facility] Other 03-07-2022 11:00-0500 SaO2% (BldA) [Mass fraction] 99 % Larry Brown Other [facility] Other 06-20-2017 09:19-0500 PAIN LEVEL 0 {score} Praveen John Celestino Bynum 06-20-2017 06:29-0500 PAIN LEVEL 0 {score} [...] 06-19-2017 18:46-0500 BP Diastolic 81 mm[Hg] Praveen Carlsona 06-19-2017 18:46-0500 BP Systolic 144 mm[Hg] Praveen Carlsona 06-19-2017 18:46-0500 Pulse (Heart Rate) 91 /min Praveen hernandez 06-19-2017 18:46-0500 Pulse Oximetry 99 % Praveen Carlsona 06-19-2017 18:46-0500 Respiratory Rate 19 /min Praveen Carlsona 06-19-2017 18:45-0500 Body Temperature 97.9 [degF] Praveen Bynum 06-19-2017 18:45-0500 BP Diastolic 81 mm[Hg] Praveen Carlsona 06-19-2017 18:45-0500 BP Systolic 144 mm[Hg] Praveen Bynum 06-19-2017 18:45-0500 Pulse (Heart Rate) 91 /min Praveen hernandez 06-19-2017 18:45-0500 Pulse Oximetry 99 % Praveen Bynum 06-19-2017 18:45-0500 Respiratory Rate 19 /min Praveen Bynum 06-19-2017 16:04-0500 Height 175.26 cm Praveen Bynum 06-19-2017 15:43-0500 Body Temperature 98 [degF] Praveen Bynum 06-19-2017 15:43-0500 BP Diastolic 74 mm[Hg] Valji Munjapara [place] Bynum 06-19-2017 15:43-0500 BP Systolic 140 mm[Hg] [...] Start: 05-22-2023 End: 05-22-2023 ambulatory Sara Vick Facility:[facility] Start: 05-22-2023 End: 05-22-2023 ambulatory MD Sara Vick Work Phone: [facility] Work Phone: Start: 05-22-2023 End: 05-22-2023 Patient encounter procedure MD Sara Vick Work Phone: [facility] [place] Work Phone: Start: 05-20-2023 End: 05-20-2023 ambulatory Sara Vick Facility:[facility] Start: 05-20-2023 Registered Recurring MD Gideon Vick Work Phone: [facility] [employer] Start: 05-15-2023 End: 05-15-2023 ambulatory Larry Brown Other [employer] Other Start: 05-15-2023 Office outpatient vi sit 25 minutes Larry Brown [facility] [place] Start: 05-13-2023 End: 05-13-2023 ambulatory Kiran Kessler Other [facility] Other Start: 05-13-2023 Office outpatient ne w 60 minutes Kiran Kessler [facility] Start: 04-16-2023 End: 04-16-2023 ambulatory Dominique Shane Other [employer] Other Start: 04-16-2023 Telephone encounter Dominique Shane [facility] Start: 04-03-2023 End: 04-03-2023 ambulatory Larry Brown Other [employer] Other Start: 04-03-2023 Office outpatient vi sit 15 minutes Larry Stephanie [facility] [place] Start: 04-03-2023 End: 04-03-2023 Patient encounter procedure MD Sara Vick Work Phone: [facility] [place] Work Phone: Start: 03-25-2023 (PROC) PROCEDURE Larry Brown [facility] Start: 03-25-2023 End: 03-25-2023 ambulatory Sara Vick Facility:[facility] Start: 03-25-2023 End: 03-25-2023 Admission to same day surgery center MD Sara Vick Work Phone: [facility] Work Phone: Start: 03-25-2023 End: 03-25-2023 ambulatory MD Sara Vick Work Phone: [facility] Work Phone: Start: 03-06-2023 End: 03-06-2023 Patient encounter procedure MD Sara Vick Work Phone: [facility] [place] Work Phone: Start: 02-10-2023 End: 02-10-2023 ambulatory Dominique Shane Other [facility] Other Start: 02-10-2023 Telephone encounter Dominique Shane [facility] Start: 01-27-2023 End: 01-27-2023 ambulatory Dominique Shane Other [facility] Other Start: 01-27-2023 Office outpatient vi sit 25 minutes Dominique Shane [facility] [place] Start: 01-27-2023 Telephone encounter Larry Brown [facility] Start: 01-09-2023 End: 01-09-2023 ambulatory Larry Brown Other [facility] Other Start: 01-09-2023 Office outpatient vi sit 25 minutes Larry Stephanie [facility] [place] Start: 12-12-2022 End: 12-12-2022 ambulatory Larry Stephanie Other [facility] Other Start: 12-12-2022 Office outpatient vi sit 25 minutes Larry Stephanie [facility] [place] Start: 11-22-2022 End: 11-22-2022 Emergency department patient visit Flavio Castillo Facility:[facility] Start: 09-19-2022 End: 09-19-2022 ambulatory Larry Stephanie Other [facility] Other Start: 09-19-2022 Office outpatient vi sit 25 minutes Larry Stephanie [facility] [place] Start: 09-18-2022 ambulatory [facility] Start: 09-18-2022 End: 09-18-2022 Office outpatient new 30 minutes Perfecto Burch MD Work Phone: 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, sequela (Primary Dx) Start: 09-18-2022 End: 09-18-2022 Subsequent hospital visit by physician Perfecto Burch MD Work Phone: [facility] Start: 09-17-2022 ambulatory ADELE FLEMING Faci lity:[facility]1 Start: 09-10-2022 End: 09-10-2022 ambulatory Larry S Stephanie Facility:[facility] Start: 09-09-2022 End: 09-10-2022 ambulatory ADELE FLEMING Facility:[facility] Start: 09-08-2022 End: 09-09-2022 ambulatory Alley Naranjo Facility:[facility] Start: 08-18-2022 End: 08-19-2022 ambulatory ADELE FLEMING Facility:[facility] Start: 08-13-2022 ambulatory [facility] Start: 08-12-2022 End: 08-13-2022 ambulatory ADELE FLEMING Facility:[facility] Start: 08-08-2022 End: 08-09-[address] ALFRED UMAÑA Facility:[facility] Start: 08-01-2022 End: 08-02-2022 ambulatory ADELE FLEMING Facility:[facility] Start: 07-26-2022 End: 07-27-2022 ambulatory Julio Ferrara Facility:[facility] Start: 07-26-2022 End: 07-27-2022 Observation Francisco Alcazar [facility] Start: 07-25-2022 Encounter for preprocedural cardiovascular examination [facility] Start: 07-25-2022 Encounter for preprocedural laboratory examination [facility] Clary [facility] Start: 07-24-2022 End: 07-25-2022 ambulatory ADELE FLEMING Facility:[facility] Start: 07-24-2022 End: 07-24-2022 ambulatory ADELE FLEMING Facility:[facility] Start: 07-18-2022 End: 07-19-2022 ambulatory ADELE FLEMING Facility:[facility] Start: 07-18-2022 End: 07-19-2022 Encounter for preprocedural cardiovascular examination ADELE FLEMING Facility:[facility] Start: 07-08-2022 End: 07-09-2022 ambulatory ADELE FLEMING Facility:[facility] Start: 07-01-2022 End: 07-02-[address] ALFRED UMAÑA Facility:[facility] Start: 06-24-2022 End: 06-25-2022 ambulatory ADELE FLEMING Facility:[facility] Start: 06-19-2022 End: 06-20-[address] ALFRED UMAÑA Facility:[facility] Start: 06-19-2022 End: 06-19-2022 ambulatory Sara Vick Facility:[facility] Start: 06-19-2022 End: 06-19-2022 ambulatory MD Sara Vick Work Phone: [facility] Work Phone: Start: 06-19-2022 End: 06-19-2022 Discharged Recurring MD Sara Vick Work Phone: [facility]-Physical Therapy [place] Work Phone: Start: 06-13-2022 [...] 05-02-2022 End: 05-02-2022 ambulatory Larry Brown Other [facility] Other Start: 05-02-2022 Office outpatient vi sit 25 minutes Larry Brown [facility] [place] Start: 05-01-2022 End: 05-02-2022 ambulatory ADELE Means [facility] Facility:[facility] Start: 04-22-2022 End: 04-23-2022 ambulatory ADELE Means [facility] Facility:[facility] Start: 04-14-2022 End: 04-15-2022 ambulatory DEEPALI JANSEN Facility:[facility] Start: 04-08-2022 (PROC) PROCEDURE Larry Brown [facility] Start: 04-08-2022 End: 04-08-2022 ambulatory Larry Brown Other [facility] Other Start: 03-31-2022 End: 04-01-[address] ALFRED UMAÑA Facility:[facility] Start: 03-08-2022 End: 03-08-2022 Emergency department patient visit Wm Nagy Facility:[facility] Start: 03-08-2022 End: 03-08-2022 Emergency department patient visit Wm Nagy [facility] Start: 03-07-2022 End: 03-07-2022 ambulatory Larry Brown Other [place] [employer] Other Start: 03-07-2022 Office consultation new/estab patient 60 min Larryrandy Brown [facility] [place] Start: 03-06-2022 End: 03-07-[address] SARA VICK . Facility:[facility] Start: 01-03-2022 End: 01-03-[address] SARA VICK . Facility:[facility] Start: 12-09-2021 End: 12-10-2021 ambulatory SHAWANDA LITTLE Facility:[facility] Start: 11-05-2021 End: 11-06-2021 ambulatory ADELE FLEMING Facility:[facility] Start: 10-07-2021 End: 10-07-2021 ambulatory PO SUAREZ . Facility: Start: 05-04-2020 End: 05-04-2020 Patient encounter procedure Sara Hoy -Pre-Surgical Testing Start: 05-02-2020 Registered Recurring Sara Vick -P hysical Therapy [place] Start: 04-24-2020 End: 04-24-2020 Patient encounter procedure Sara Hocarolina -Pre-Surgical Testing Start: 02-01-2020 End: 02-01-2020 Patient encounter procedure Sara Hoy -XRay [facility] Start: 06-29-2018 Patient encounter procedure Sara~[id number] UNKNOWN Hoy Facility:[facility] Start: 12-11-2017 End: 12-12-2017 Patient encounter DEFAULT PHYSICIAN Facility:[facility] Start: 01-07-2017 End: 01-07-2017 Ambulatory BRUCE MATHEW [facility] [place] Procedures Date Procedure Procedure Detail Performing Clinician Start: 03-25-2023 Local anesthetic sac ral epidural block MD Sara Vick Work Phone: Start: 02-01-2020 Plain X-ray of femur Do uglas Nicanor Start: 02-01-2020 X-ray of right knee Juliet glas Nicanor Start: 05-11-2017 Injection of sacroil iac joint using fluoroscopic guidance Wm Nagy Comment on above: left ~ 80 % relief d ay 3 X2 weeks , pain starting to increase Start: 03-09-2017 Transforaminal Epidu ral Steroid Injection 2 Wm [employer] Comment on above: Bilateral L3- 50% re lief starting one week after procedure Start: 02-02-2017 Transforminal epidur al steroid injection 3 Wm [employer] Comment on above: Left L3, L4 40% reli ef for couple weeks Start: 02-09-2014 Dilation and curetta ge of uterus Mw [employer] Start: 07-25-2013 lumbar fusion L4-5 Joyce azucena [employer] Start: 06-20-2013 Epidural injection o f lumbar spine using fluoroscopic guidance [employer] Comment on above: L4-5 70-80% relief a nd lasted 1.5 weeks Start: 04-28-2013 Epidural injection o f lumbar spine using fluoroscopic guidance [employer] Comment on above: L5-S1 50% relief Start: 02-21-2013 Injection of facet j oint using fluoroscopic guidance [employer] Comment on above: bilateral L3-S1 FJI 50% relief Start: 01-21-2013 Injection of facet j oint using fluoroscopic guidance [employer] Comment on above: bilateral L3-S1 FJI 0% relief that day, next day 40% relief and 50-60% relief Start: 01-03-2013 Epidural injection o f lumbar spine using fluoroscopic guidance [employer] Comment on above: L5-S1 50% relief Start: 09-02-2012 Epidural injection o f lumbar spine using fluoroscopic guidance [employer] Comment on above: L5-S1 left,, no reli ef, increased pain Start: 04-20-2011 Excision of ganglion cyst Wm [employer] Start: 07-03-2010 Decompression of med marcus nerve Wm [employer] Start: 07-03-2010 Repair of musculoten dinous cuff of shoulder Wm Nagy Start: 04-20-2007 Cholecystectomy Wm lara foot surgery right x3 Wm Nagy left GLORIA Wm Nagy Ligation of fallopian tube K josep Nagy Lumbar and lumbosacr al fusion by posterior technique Wm Nagy Comment on above: [address] Gilman, cleaned infection out 2nd surgery, infection spread removal of rib and higher fusion (3rd surgery) right knee scope wit h partial meniscectomy Wm Nagy Plan of Treatment Date Care Activity Detail Author Start: 05-22-2023 Pulse volume recorde r pneumoplethysmography US arterial pvr rest [facility] Start: 05-22-2023 [facility] Start: 05-22-2023 Duplex scan of lower limb vein s US venous duplex LE [facility] Start: 05-22-2023 US Lower extremity v ein - bilateral [facility] Start: 03-25-2023 [facility] Start: 01-28-2022 COVID-19 VACCINE (5 - Booster for Pfizer series) COVID-19 VACCINE (5 - Booster for Pfizer series) [facility] Start: 08-24-2019 Screening for malign ant neoplasm of breast MAMMOGRAM SCREENING DISCUSSION [facility] Start: 12-20-2001 Zoster vaccine hzv l jane for subcutaneous use ZOSTER (SHINGLES) VACCINE (1 of 2) [facility] Start: 12-20-1996 Screening for malign ant neoplasm of colon COLORECTAL CANCER SCREENING DISCUSSION [facility] Start: 1991 Lipid panel LIPID SCREENING [facility] Start: 12-20-1972 Screening for malign ant neoplasm of cervix CERVICAL CANCER SCREENING DISCUSSION [facility] Start: 12-20-1970 Third diphtheria, te tanus and acellular pertussis (DTaP) vaccination TDAP (ADULT) [facility] Start: 1950 Hepatitis C screening HEPATITI S C VIRUS SCREENING [facility] Start: 1950 Screening for osteoporosis DEX A SCAN DISCUSSION [facility] Start: 1950 Tetanus vaccination TETANUS [facility] Patient Education Stephanie Non Diagn ostic Block [facility] Work Phone: Patient referral [facility] Work Phone: XR Knee - left 3 Views XR KNEE L EFT 3 VIEWS Imaging Routine Pain in prosthetic joint, sequela Ordered: 09/16/2022 [facility] Comment on above: Ordered: 09/16/2022 XR Pelvis and Hip - left Views X R HIP WITH PELVIS LEFT Imaging Routine Pain in prosthetic joint, sequela 09/18/2022 10:11 AM EDT [facility] Work Phone: Immunizations Immunization Date Immunization Notes Care Provider Fa cility 07-12-2020 COVID-19, mRNA, LNP- S, PF, 30 mcg/0.3 mL dose Wm Yakov [facility] Comment on above: Reason for Medicatio n: Prophylaxis 06-14-2020 COVID-19, mRNA, LNP- S, PF, 30 mcg/0.3 mL dose Wm Yakov [facility] Comment on above: Reason for Medicatio n: Prophylaxis 02-18-2018 pneumococcal polysaccharide vaccine, 23 valent Wm Nagy [facility] 06-18-2017 tuberculin skin test ; unspecified formulation Praveen Bynum 02-05-2017 pneumococcal conjuga te vaccine, 13 valent Wm Nagy [facility] 10-20-2012 pneumococcal polysaccharide vaccine, 23 valent Wm Nagy [facility] Payers Date Payer Category Payer Private Health Insurance 2022 Self-pay [id number] 2020 Unknown [id number] 2018 Medicare MEDICARE HU[employer]NA HMO PPO MEDICARE HU[employer]NA HMO PPO [id number] 2018-Present [address] [address] [place] [address] [id number] 1959 Private Health Insurance [id number] 1951 Unknown [id number] 2.16.840.1.762278.3.579.2 .727 1951 Unknown [id number] 2.16.840.1.033060.3.579.2 .159 1951 Unknown [id number] 2.16.840.1.149855.3.579.2 .593 1951 Unknown [id number] 2.16.840.1.425017.3.579.2 .593 1951 Unknown [id number] 2.16.840.1.409194.3.579.2 .593 1951 Unknown [id number] 2.16.840.1.115330.3.579.2 .593 1951 Unknown [id number] 2.16.840.1.552187.3.579.2 .593 1951 Unknown [id number] 2.16.840.1.553423.3.579.2 .593 1951 Unknown [id number] 2.16.840.1.792703.3.579.2 .593 1951 Unknown [id number] 2.16.840.1.367379.3.579.2 .593 1951 Unknown [id number] 2.16.840.1.528118.3.579.2 .593 1951 Unknown [id number] 2.16.840.1.027017.3.579.2 .593 1951 Unknown [id number] 2.16.840.1.690167.3.579.2 .593 1951 Unknown [id number] 2.16.840.1.072126.3.579.2 .593 1951 Unknown [id number] 2.16.840.1.532917.3.579.2 .593 1951 Unknown [id number] 2.16.840.1.044254.3.579.2 .593 1951 Unknown [id number] 2.16.840.1.300377.3.579.2 .593 1951 Unknown [id number] 2.16.840.1.052652.3.579.2 .593 1951 Unknown [id number] 2.16.840.1.180813.3.579.2 .593 1951 Unknown [id number] 2.16.840.1.946913.3.579.2 .593 1951 Unknown [id number] 2.16.840.1.286200.3.579.2 .593 1951 Unknown [id number] 2.16.840.1.918144.3.579.2 .593 1951 Unknown [id number] 2.16.840.1.959184.3.579.2 .593 1951 Unknown [id number] 2.16.840.1.482333.3.579.2 .593 1951 Unknown [id number] 2.16.840.1.809503.3.579.2 .593 1951 Unknown [id number] 2.16.840.1.521383.3.579.2 .593 1951 Unknown [id number] 2.16.840.1.373622.3.579.2 .593 1951 Unknown [id number] 2.16.840.1.007557.3.579.2 .593 1951 Unknown [id number] 2.16.840.1.071465.3.579.2 .593 1951 Unknown [id number] 2.16.840.1.707441.3.579.2 .593 1951 Unknown [id number] 2.16.840.1.832355.3.579.2 .593 1951 Unknown [id number] 2.16.840.1.355693.3.579.2 .983 1951 Unknown [id number] 2.16.840.1.190610.3.579.2 .983 1951 Unknown [id number] 2.16.840.1.178524.3.579.2 .983 1951 Unknown [id number] 2.16.840.1.862675.3.579.2 .727 1951 Unknown [id number] 2.16.840.1.502553.3.579.2 .727 1951 Unknown [id number] 2.16.840.1.501946.3.579.2 .727 1950 Unknown [id number] 2.16.840.1.527244.3.579.2 .727 Unknown Unknown [id number] Unknown [id number] Unknown [id number] 2.16.840.1.942098.3.579.2 .531 Unknown [id number] 2.16.840.1.544866.3.579.2 .531 Unknown [id number] 2.16.840.1.050860.3.579.2 .531 Unknown [id number] 2.16.840.1.935315.3.579.2 .531 Unknown [id number] 2.16.840.1.900471.3.579.2 .531 Social History Date Type Detail Facility Start: 06-18-2017 Unknown if ever smoked [employer] Start: 04-24-2020 End: 05-07-2020 Tobacco smoking status NHIS Never smoked tobacco (finding) [facility] Start: 1950 Sex Assigned At Female F [facility] Sex Assigned At [facility] Start: 09-18-2022 Tobacco use and exposure Smokeless tobacco non-user [facility] [employer] [facility] Start: 09-18-2022 Alcohol intake Current drinke r of alcohol (finding) [employer] [facility] Start: 09-18-2022 Alcohol Comment occasional [employer] [facility] Start: 1950 Sex Assigned At Not on file A [employer] [facility] Procedure Code Equipment Code Equipment Origin al Text Equipment Identifier Dates Arthroplasty, knee, total, minimally invasive Orthopaedic cement, non-medicated ()[id number] FDA Start: 05-07-2020 Arthroplasty, knee, total, minimally invasive Uncoated knee femur prosthesis, metallic ()[id number] FDA Start: 05-07-2020 Arthroplasty, knee, total, minimally invasive Tibial insert ()[id number] FDA Start: 05-07-2020 Arthroplasty, knee, total, minimally invasive Uncoated knee tibia prosthesis, metallic ()[id number] FDA Start: 05-07-2020 Arthroplasty, knee, total, minimally invasive Polyethylene patella prosthesis ()[id number] FDA Start: 05-07-2020 Goals Date Patient Goal Desired Activity /State Functional Status Date Assessment Result Facility 07-26-[address] [facility] 07-26-[address] [facility] 03-08-[address] [facility] Clinical Notes 06-20-2022 to 05-15-2023 Note Date & Type Note [...] In the meantime, she can continue taking [place] as needed all as well as Gabapentin [...] of any breach, fraud, or malicious third constitution party actors and no personal patient information was compromised. [facility] Other 01-24-2024 Evaluation note* Encounter Date Diagnosis [...] agrees with plan all questions were addressed. [facility] Other 12-28-2023 Evaluation note* Encounter Date Diagnosis Assessment Notes Treatment Notes Treatment Clinical Notes Mar, Lumbar radiculopathy (ICD-10 - M54.16) 72 year old female evaluated via telephonic call for follow up and medication refill for chronic pain. She voices complaints of low back pain with intermittent radiation down the right lower extremity. She continues taking [place] with relief and is requesting a refill of this today. I discussed different treatment options in detail with the patient. She feels medication is managing her pain and does not wish to proceed with injections at this time. I encouraged the patient to start physical therapy as previously discussed. She can also continue taking medications as prescribed and I will refill her [place] as she feels this provides an element [...] pain (ICD-10 - G89.29) Continue medication management. [facility] Other 12-15-2023 Evaluation note* Encounter Date Diagnosis [...] pain (ICD-10 - G89.29) Continue medication management. [facility] Other 10-24-2023 Evaluation note* Encounter Date Diagnosis Assessment Notes Treatment Notes Treatment Clinical Notes Jan, Lumbar radiculopathy (ICD-10 - M54.16) [facility] 10-10-2023 Evaluation note* Encounter Date Diagnosis [...] regarding this. 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 Hydrocodone/Acetamin ophen was refilled today, opioid risk assessment was done as well as pill count. Patient is compliant with opioid medication. The patient denies any opioid related side effects. [facility] Other 09-22-2023 Evaluation note* Encounter Date Diagnosis [...] educated on the risks and benefits of group home opioid use. Hydrocodone/Aceta minophen was refilled today, opioid risk assessment was done as well as pill count. Patient is compliant with opioid medication. The patient denies any opioid related side effects. Patients last urine drug screen was positive for alcohol, she is counselled against consuming alcohol. [facility] Other 08-25-2023 Evaluation note* Encounter Date Diagnosis [...] M51.36) Stable, follow up in 4 weeks. [facility] Other 06-02-2023 Evaluation note* Encounter Date Diagnosis [...] nerve blocks in the future if needed. [facility] Other 06-01-2023 History of Present illness Narrative* [...] 09/18/2022 10:58 AM Patient: Leelee Cedillo MR#: [id number] : 1950 Age: 71 y.o. Referring Physician: Sorin Dickerson DO Insurance: Payor: MEDICARE [employer]NA [employer] PPO / Plan: MEDICARE HU[employer]NA HMO PPO [...] repair GALL BLADDER SURGERY 1999 BACK SURGERY [id number]- FOOT SURGERY [id number] Family History: Her family history is not [...] [x]cane, []bracing Are you followed by a snowmaker? [] [x] Name: Are you followed by pain management? [x] [] Name: Dr. Low---Viktoria Are you followed by any other specialists? [x] [] Name: Dr. Pond-- Daisymaria r Outpatient Medications Prior to Visit Medication Sig Dispense Refill alendronate 70 MG tablet Cholecalciferol 50 MCG (2000 UT) capsule 1 capsule. furOSEmide 20 MG [...] with not having changed since imaging in 2016. Films also demonstrate significant posterior tilt. IMPRESSION: [...] repair GALL BLADDER SURGERY 1999 BACK SURGERY [id number]- FOOT SURGERY [id number] No family history on file. Social History Socioeconomic History Marital status: Tobacco Use Smoking status: Never Smokeless tobacco: Never Vaping Use Vaping Use: Never used Substance and Sexual Activity Alcohol use: Yes Comment: occasional Current Outpatient Medications: alendronate 70 MG tablet, , Disp: , Rfl: Cholecalciferol 50 MCG (2000 UT) capsule, 1 capsule., Disp: , Rfl: [...] Rash Flagyl [Metronidazole] [facility]Comment on above:Result Comment: Electronically Signed By: Rachel SALTER\.br\Date and Time Signed: 07/27/22 15:21 EDT\.br\Electronically Co-Signed By: Francisco Alcazar MD\.br\Date and Time Co- Signed: 07/27/22 17:04 [id number] Hospital Discharge instructions Patient Education 07/27/2022 15:20:26 [...] Follow these instructions at home: Medicines Take jwrc-wth-gizvmty and prescription medicines only as told by [...] 04/06/2006 Document Revised: 07/29/2019 Document Reviewed: 02/23/2019 [employer] Patient Education 2020 [employer]. 07/27/2022 15:20:26 Vasovagal Syncope, Pediatric Vasovagal Syncope, [...] ?Squatting. ?Moving his or her legs. Give nhic-nbi-erzgvtz and prescription medicines only as told by [...] 01/13/2009 Document Revised: 03/19/2018 Document Reviewed: 05/12/2017 [employer] Patient Education 2020 [employer]. Follow Up Care 07/26/2022 11:32:57 With:Sara Vick Address: [address] [place] [address]- Business (1) When: Unknown Comments:Call for followup appointment 7-10 days With:Julio Ferrara MD, NEU Address: [address] [place] [phone]- When:2 to 4 weeks [facility]04-09-2023 Evaluation + Plan noteExtracted from: Title:Discharge Note Author:LÁZARO TIAN Evert santiago Date:07/27/22 Discharge To, Anticipated II - Home [...] Oral, Daily With When Contact Information Sara Jasvircarolina [address] [place] [address] [place] [address]- Business (1) Additional Instructions: Call for followup appointment 7-10 days Julio Ferrara MD, NEU Within 2 to [address] [place] [phone]- Additional Instructions: Near-Syncope Vasovagal Syncope, Pediatric Extracted [...] it is acute or subacute. It might heel turner to just be some focal white [...] specified devices) recent right foot surgery in [place] w/podiatry secondary to non healing food wound. Currently has wound vac intact to this operative site. 6. Osteoarthritis (M19.90: Unspecified osteoarthritis, unspecified site) osteoarthritis status post left hip replacement Has chronic back pain. 7. Morbid obesity (E66.01: Morbid (severe) obesity due to excess calories) -BMI 70.73 -[place]her on diet, exercise, weight loss and lifestyle [...] plan. Diagnostic Tests Pending * HgbA1c 07/27/22 [facility]04-08-[address] Psychiatric CenterComment on above:Result Comment: Electronically Signed By: [...] if her pain increases in the future. [employer] Other [id number] NotePROCEDURE: XR FOOT RT MIN 3 VIEWS, [...] Electronically authenticated by: JULIO LOBATO Date: 2022-04-23 13:00[facility]01-04-2023 NotePROCEDURE: XR FOOT RT MIN 3 [...] Electronically authenticated by: JULIO LOBATO Date: 2022-04-23 13:00[facility]12-12-2022 NotePROCEDURE: XR ANKLE RT MIN 3 [...] authenticated by: ALFRED UMAÑA Date: 2022-03-31 18:19[id number] Hospital Discharge instructions Patient Education 03/08/2022 17:44:27 [...] 04/06/2006 Document Revised: 04/15/2017 Document Reviewed: 03/23/2017 [employer] Patient Education 2020 [employer]. 03/08/2022 17:44:27 Hip Dislocation Hip Dislocation Hip [...] Follow these instructions at home: Medicines Take qdua-hit-osgoohe and prescription medicines only as told by your health care provider. Ask your health care provider if the medicine prescribed to you: ?Requires you to avoid driving or using heavy machinery. ?Can cause constipation. You may need to take actions to prevent or treat constipation, such as: ?Drink enough fluid to keep your urine pale yellow. ?Take gkpc-olm-mhdiede or prescription medicines. ?Eat foods that are [...] in the [place] Do not drive yourself [facility]. Summary Hip dislocation happens when the ball [...] 12/30/2001 Document Revised: 12/29/2018 Document Reviewed: 12/30/2018 [employer] Patient Education [facility] Follow Up Care 03/08/2022 13:37:46 With:Sorin DICKERSON Address: [address] [place] [phone] Business (1) When:03/11/2022 17:44:09 Comments:Call to establish follow-up care. Wear brace until follow-up with orthopedic surgery. With:Sara Vick Address: [address] [place] [id number] Business (1) When:03/11/2022 17:43:29 Comments:Call the office [...] you develop any new or worsening symptoms. [facility]11-19-2022 Evaluation + Plan noteExtracted from: Title:ED Note Author:Wm Nagy DO Date:05/08/21 Dislocation, hip (S73.006A: Unspecified dislocation of unspecified hip, initial encounter) Ordered: acetaminophen-hydrocodone, 1 tab(s), Oral, q4hr for pain, 12 tab(s), Refill(s) 0, [facility]/pharmacy #[id number], 172, cm, 03/08/22 13:49:00 EST, Height/Length [...] XR Hip 2-3 Views Left + Pelvis [facility]11-18-2022 Evaluation note* Encounter Date Diagnosis Assessment Notes [...] future if needed Feb, Other Medical deci lidai making shows a new problem to me [...] negative findings were considered in medical decision-making. [facility]ame Other 06-20-2022 NotePROCEDURE: XR FOOT RT MIN [...] authenticated by: JULIO LOBATO Date: 2021-10-07 11:44[facility]Evaluation noteNo InformationNort 5app Other Evaluation noteNo assessment information available [facility] Work Phone: Evaluation note* Diagnosis Pain in prosthetic joint, sequela- [facility] - [facility] Type Description [...] 2 021 Surgical History back surgeries x5 [facility] gen kori gilman 2018 Adsame Other [facility] general Narrative - Reported* Type Description Date [...] 2 021 Surgical History back surgeries x5 [facility] gen kori gilman 2018 Hospitalization History see above Adsame Other [employer] general Narrative - Reported* Type Description Date [...] 2 021 Surgical History back surgeries x5 [facility] carisa-dr gilman 2018 Surgical History lazer surgery on her lt leg veins and she also had sclero tx on b/l legs 2022 Hospitalization History see above Adsame Other Hospital course Narrative No data available for this section [facility] No data available for this section [facility] Advance Directives No Advanced Directives Records Found [...] Referral Specialty Diagnoses / Procedures Referred By Maximiliano t Referred To Contact Diagnoses Pain in prosthetic joint, sequela Procedures XR HIP WITH PELVIS LEFT Perfecto Burch MD [address] [place] [address] Referral ID Status Reason Start Date Expiration Date V isits Requested Visits Authorized [id number] New Request 09/18/2022 10/13/2023 1 1 Specialty Diagnoses / Procedures Referred By Maximiliano t Referred To Contact Diagnoses Pain in prosthetic joint, sequela Procedures XR KNEE LEFT 3 VIEWS Perfecto Burch MD [address] [place] [id number] Referral ID Status Reason Start Date Expiration Date V isits Requested Visits Authorized [id number] New Request 09/16/2022 10/11/2023 1 1 Additional Source Comments INFORMATION SOURCE (unrecogn ized section and content) DATE CREATED AUTHOR 10/14/2017 [facility] DATE CREATED AUTHOR AUTHOR'S ORGANIZ ATION 12/13/2017 [facility] DATE CREATED AUTHOR AUTHOR'S ORGANIZ ATION 07/10/2018 Ramirez Josephine [facility] DATE CREATED AUTHOR AUTHOR'S ORGANIZ ATION 02/25/2019 [facility] ical Center DATE CREATED AUTHOR AUTHOR'S ORGANIZ ATION 03/01/2022 [facility] dical Specialist DATE CREATED AUTHOR AUTHOR'S ORGANIZ ATION 07/26/2022 [facility] DATE CREATED AUTHOR AUTHOR'S ORGANIZ ATION 09/27/2022 [facility] DATE CREATED AUTHOR AUTHOR'S ORGANIZ ATION 09/27/2022 [facility] DATE CREATED AUTHOR AUTHOR'S ORGANIZ ATION 11/26/2022 Ramirez Josephine [facility] DATE CREATED AUTHOR AUTHOR'S ORGANIZ ATION 05/29/2023 [facility] REASON FOR VISIT (unrecogniz ed section and content) Specialty Diagnoses / Procedures Referred By Maximiliano dee Referred To Contact Diagnoses Pain in prosthetic joint, sequela Procedures XR HIP WITH PELVIS LEFT Perfecto Burch MD [address] [place] [address] Referral ID Status Reason Start Date Expiration Date V isits Requested Visits Authorized [id number] New Request 09/18/2022 10/13/2023 1 1 Reason Comments Pain New Patient Patient Care team informatio n (unrecognized section and content) Team Status: Active Member Role Status Dates Sara Vick MD Primary Care Provider Active Team Status: Inactive Member Role Status Dates Sara Vick MD Primary Care Provider, Attending Alvin burrell Active Color Maker Relationship Specialty Start Date End Date Sara Vick MD [address] [place] [place] [address] PCP - General Family Medicine 04/09/22 Color Maker Relationship Specialty Start Date End Date Sara Vick MD [address] [place] [address] PCP - General Family Medicine 04/09/22 Team Status: Inactive Member Role Status Dates Sara Vick MD Primary Care Provider Active Larry Brown MD Attending Provider Active Team Status: Inactive Member Role Status Freeman Brown MD Attending Provider Active Sta rt: March 06, 2023 End: March 06, 2023 Team Status: Inactive Member Role Status Freeman Vick MD Primary Care Provider Active Start: March 25, 2023 End: March 25, 2023 Larry Brown MD Attending Provider Active Sta rt: March 25, 2023 End: March 25, 2023 Team Status: Inactive Member Role Status Freeman Brown MD Attending Provider Active Sta rt: April 03, 2023 End: April 03, 2023 Team Status: Active Member Role Status Dates Sara Vick MD Primary Care Provider Active Start: May 20, 2023 Deepali Jansen PA-C Attending Provider Active Start: May 20, 2023 Team Status: Inactive Member Role Status Freeman Vick MD Primary [...] BE BASED ON THE PRIMARY CLINICAL RECORDS. [facility] [employer] [facility]. provides no warranty or guarantee of the accuracy or completeness of information in this document.
[2023-06-03 12:15] LABS: Bilirubin Urine NEGATIVE (NEGATIVE); Blood Urine NEGATIVE (NEGATIVE); Clarity Urine CLEAR (CLEAR); Color Urine LT. YELLOW (YELLOW); Glucose Urine UA NEGATIVE (NEGATIVE); Ketones Urine NEGATIVE (NEGATIVE); Leukocyte Esterase Urine SMALL (NEGATIVE); Nitrite Urine NEGATIVE (NEGATIVE); Protein Urine NEGATIVE (NEG/TRACE); Specific Gravity Urine 1.015 (1.005-1.025); Urobilinogen Urine 0.2 EU/dL (0.2-1.0)
[2023-06-03 12:25] LABS: Bacteria Urine SMALL #/HPF (NONE SEEN); Mucus Urine NONE SEEN (NONE SEEN); RBC Urine NONE SEEN #/HPF (0-2); Squamous Epithelial Cell Urine FEW #/LPF (NONE/RARE)
== END 2023-06-03 11:44 | disposition home or self-care (01) ==
LOC: LAB 11:44
PROVIDERS: PCP Family Medicine; Visit Provider Family Medicine
DX: R30.0 Dysuria (principal)
CPT/HCPCS: 81001; 87086; 87150; 87186

== ENCOUNTER 2023-06-26 10:36 | Outpatient (OUT) | payer MEDICARE, SELFPAY ==
--- OUTSIDE RECORDS SUMMARY | 2023-06-26 10:49 | XMS_ITS | CCD ---
Author Name Unknown Address [address] [place] [address] Organization [facility] Care Team Providers Care Sonogram Technician Name Role Phone Praveen Lopez Unavailable Unavailable PHYSICIAN, DEFAULT Unavailable Unavailable PHYSICIAN, DEFAULT Unavailable Unavailable SARA VICK Unavailable Unavailable Sara Vick~[phone] UNKNOWN Admitting Unavailable Sara Vick~[phone] UNKNOWN Attending Unavailable Sara Vick~[phone] UNKNOWN Referring Unavailable Sara Vick Primary Care Provider Trino Yoo Attending Provider Larry Brown Unavailable Sara Vick Primary Care Physician Lynn Salas Unavailable Unavailable Holleran, Flor Unavailable Unavailable ADELE FLEMING Attending Unavailable SARA VICK Primary Care Unavailable MD Sara Vick Primary Care Provider [phone] MD Sara Vick Attending Provider DEEPALI JANSEN Consulting Unavailable DEEPALI JANSEN Admitting Unavailable DEEPALI JANSEN Attending Unavailable DR SARA OVERTON Primary Care Unavailable ADELE FLEMING Attending Unavailable ADELE FLEMING Admitting Unavailable NICANOR .DR RUIZ Primary Care Unavailable ADELE FLEMING Admitting Unavailable ADELE FLEMING Attending Unavailable DR SARA OVERTON Primary Care Unavailable NICANOR ., DR RUIZ Consulting Unavailable INCANOR .DR RUIZ Primary Care Unavailable NICANOR .DR RUIZ Admitting Unavailable NICANOR ., DR RUIZ Attending Unavailable SHAWANDA LITTLE Admitting Unavailable SHAWANDA LITTLE Attending Unavailable SHAWANDA LITTLE Consulting Unavailable DR SARA OVERTON Primary Care Unavailable SARA LAUREN Consulting Unavailable ADELE FLEMING Admitting Unavailable ADELE FLEMING Attending Unavailable DR SARA OVERTON Primary Care Unavailable HIGHLANDER, ADELE Means Admitting Unavailable HIGHLANDER, ADELE Means Attending Unavailable HOY ., DR RUIZ Primary [...] HOY ., DR RUIZ Primary Care Unavailable SHAHZADEBER, DR JULIO Wu Consulting Unavailable WEST, DR ALFRED Deal Consulting Unavailable ELZBIETA, DEEPALI Admitting Unavailable ELZBIETADEEPALI Attending Unavailable HOY ., DR RUIZ Primary Care Unavailable ELZBIETADEEPALI Consulting Unavailable HIGHLANDER, ADELE Means Attending Unavailable HIGHLANDER, ADELE Means Admitting Unavailable HOY ., DR RUIZ Primary Care Unavailable WEST, DR ALFRED Deal Attending Unavailable WEST, DR ALFRED Deal Consulting Unavailable WEST, DR ALFRED Deal Admitting Unavailable HOY ., DR RUIZ Primary Care Unavailable [facility], DR JULIO Wu Consulting Unavailable WEST, DR [...] ., DR RUIZ Primary Care Unavailable HIGHLANDER, ADELE Means Admitting Unavailable HIGHLANDER, ADELE Means Attending Unavailable HOY ., DR RUIZ Primary Care Unavailable HIGHLANDER, ADELE D Admitting Unavailable HIGHLANDER, PETER D Attending [...] Referring Unavailable PERFECTO BURCH Attending Unavailable SARA IVCK Primary Care Unavailable PERFECTO BURCH Attending Unavailable SARA VICK Primary Care Unavailable Sorin DICKERSON Referring Unavailable PERFECTO BURCH Attending Unavailable SARA VICK Primary Care Unavailable PERFECTO BURCH Referring Unavailable Sara Vick MD Primary Care Provider [phone] Julio Ferrara Consulting Unavailable Francisco Alcazar Admitting Unavailable Francisco Alcazar S Attending Unavailable Houston, Julio Consulting Unavailable Houston, Julio Consulting Unavailable Houston, Julio Consulting Unavailable Houston, Julio Consulting Unavailable Houston, Julio Consulting Unavailable Houston, Julio Consulting Unavailable Houston, Julio Consulting Unavailable Houston, Julio Consulting Unavailable Wm Nagy Attending Unavailable Flavio Castillo Attending Unavailable Windnagel, Alley Admitting Unavailable Windnagel, Alley Attending Unavailable Windnagel, Alley Referring Unavailable AcostaBernicegy Unavailable MD Sara Vick Primary Care Provider [phone] MD Larry Brown Attending Provider [phone] Kiran Kessler Unavailable [phone] HAILEY Jansen Attending Provider [phone] MD Kiran Kessler Attending Provider Sara Vick Primary Care Unavailable Deepali Jansen Admitting Unavailable Deepali Jansen Attending Unavailable Larry Brown Admitting Unavailable Larry Brown Attending Unavailable Sara Vick Primary Care Unavailable Sara Vick Primary Care Unavailable Larry Brown S Admitting Unavailable Larry Brown Attending Unavailable Sara Vick Primary Care Unavailable Kiran Kessler Admitting UnavailKiran Carrero Attending Unavailabl e Sara Vick Attending Unavailable Sara Vick Admitting Unavailable Sara Vick Primary Care Unavailable Sara Vick MD Primary Care Provider [phone] SARA VICK Referring Unavailable GHANSHYAM LOMBARDI Attending Unavailable SARA VICK Primary Care Unavailable SARA VICK Primary Care Unavailable ROS CEDEÑO Referring Unavailable Unavailable Unavailable Unavailable Allergies Allergy Classification Reported Allergen(s) Allergy Type Date of Onset Reaction(s) Facility (1 source) Sulfa Antibiotics 06-19-19 18 [facility] (3 sources) Sulfonamides (Antibiotic) Drug allergy (disorder) 08-02-19 10 [facility] Repository (4 sources) Sulfamethoxazole; Translations: [sulfamethoxazole ] Drug Allergy Cutaneous eruption (morphologic abnormality) [facility] Repository (2 sources) Sulfur; Translations: [Sulfur] Drug Allergy [facility] Repository (8 sources) Sulfonamides (Antibiotic); Translations: [Sulfa (Sulfonamide Antibiotics)] Allergy to substance 07-17-19 07 [facility] (16 sources) Sulfacetamide Drug Allergy 09-19-19 23 Rash [facility] Other (2 sources) metroNIDAZOLE Drug Allergy 09-19-19 23 DyspMDVIPia 20x200 (1 source) Sulfacetamide Drug Allergy 05-18-19 24 [facility] Repository Medications Current Medications Medication Drug [...] for 30 days Dec, Active Start: 03-08-2022 Jaroso 325 mg-5 mg oral tablet 1 tab(s), Oral, q4hr for pain, 12 tab(s), Refill(s) 0, [facility]/pharmacy #[id number], 172, cm, 03/08/22 13:49:00 EST, [...] Daily, # 30 tab(s), Refills(s) 0, Pharmacy: [facility]/pharmacy #[id number], 172.7, cm, 07/26/22 11:43:00 EDT, [...] 1 tablet by donna th once daily Vitamin D3 Tablet 2000 UNIT 1 tablet Tablet Oral Give 1 tablet by mouth one time a day for supplement 06/19/2017 9:00:00 take 1 capsule by mo [facility] every twenty-four hours Vitamin D3 50 MCG [...] sodium 75 mg delayed release oral tablet (3 sources) Nonsteroidal Anti-inflammatory Drug Start: take 1 tablet by mouth twice daily Diclofenac Sodium Tablet Delayed Release 75 MG 1 tablet Tablet Delayed Release Oral GIVE ONE TAB BY MOUTH TWICE DAILY FOR ANTI INFLAMMATORY 06/19/2017 9:00:00 Comment on above: Take 75 mg by mouth twice daily. Diff-Stat Capsule (1 source) Start: take 1 [...] Oral, BID Start Date: 06/26/17 Status: Ordered Comment on above: Take 600 mg by mouth twice daily. hydrOXYzine pamoate 25 mg oral capsule (3 sources) Antihistamine Start: 05-08-19 21 take 1 capsule by mouth every six hours Hydroxyzine Pamoate (Vistaril) 25 mg capsule Active 25 MG PO Q6H May 08, 2020 12:00am lidocaine 0.05 mg/mg medicated patch (10 sources) Antiarrhythmic, Amide Local Anesthetic Start: 12-13-19 23 Lidoderm 5 % 1 patch remove after 12 hours Externally Once a day for 30 days Nov, Active meloxicam 15 mg oral tablet (20 sources) Nonsteroidal Anti-inflammatory Drug Start: 07-02-19 19 take 15 mg by mouth once daily Meloxicam Active 15 MG PO Daily April 24, 2020 12:00am pantoprazole 40 mg delayed release oral tablet (20 sources) Proton Pump Inhibitor Start: 09-14-19 20 take 40 mg by mouth once daily Pantoprazole Active 40 MG PO Daily April 24, 2020 12:00am Start: 06-19-2017 take 1 tablet by donna th once daily Pantoprazole Sodium Tablet Delayed Release 40 MG 40 mg Tablet Delayed Release Oral GIVE ONE TAB BY MOUTH EVERY DAY FOR ULCER MEDICATIONS 06/19/2017 9:00:00 Comment on above: Take 40 mg by mouth once daily. polyethylene glycol 3350 (1 source) Osmotic Laxative Start: take 17 g by mouth once daily for constipation GlycoLax Powder 17 gram Powder Oral Give 17 gram by mouth one time a day for constipation (in Liquid) 06/19/2017 9:00:00 purified protein derivative of tuberculin (2 sources) Tuberculosis Skin Test, Skin Test Antigen Start: End: Tuberculin PPD Solution 5 UNIT/0.1ML 0.1 ml [...] mg oral tablet (20 sources) l-Thyroxine Start: 06-26-2017 take 1 capsule by mouth once daily levothyroxine 125 mcg (0.125 mg) oral capsule 125 microgram = 1 cap(s), Oral, Daily Start Date: 06/26/17 Status: Ordered Start: 06-19-2017 take 1 tablet by donna once daily for thyroid dysfunction Synthroid Tablet 125 MCG 125 mcg Tablet Oral GIVE ONE TAB BY MOUTH EVERY DAY FOR THYROID AGENT 06/19/2017 6:00:00 Start: 07-03-2014 take 1 tablet by mouth once da arnold levothyroxine (SYNTHROID) 125 mcg tablet Take 1 tablet by mouth once daily. 90 tablet 3 07/03/2014 Active take 1 tablet by donna th once daily in the morning Levothyroxine Sodium 125 MCG 1 tablet in the morning on an empty stomach Orally Once a day Active Comment on above: Take 1 tablet by donna th once daily. tiZANidine 4 mg oral tablet (20 sources) Central alpha-2 Adrenergic Agonist Start: 07-26-2022 take 2 tablets by mouth every eight hours as needed for muscle spasms tiZANidine 4 mg Tab 8 mg = 2 tab(s), Oral, q8hr, PRN Spasm, Refills(s) 0 Start Date: 07/26/22 Status: Ordered Start: 06-19-2017 take 2 tablets by mo uth twice daily Zanaflex Tablet 4 MG 2 tablet Tablet Oral GIVE 2 TABS (8MG) BY MOUTH TWICE DAILY FOR MUSCLOSKELETAL 06/19/2017 9:00:00 take 1 capsule by mo ut once daily at bedtime tiZANidine HCl 4 mg capsule Take 4 mg by mouth daily at bedtime. 0 Active take 1 capsule by mo uth every eight hours tiZANidine HCl 4 MG 1 capsule as needed Orally Three times a day Active Comment on above: Take 4 mg by mouth d aily at bedtime. traMADol hydrochloride 50 mg oral tablet (1 source) Opioid Agonist Start: 06-19-19 18 take 1 tablet by mouth every twelve hours as needed for pain TraMADol HCl Tablet 50 MG 1 tablet Tablet Oral Give 1 tablet by mouth every 12 hours as needed for as needed for pain 06/18/2017 20:30:00 vitamin b12 1 mg/ml injectable solution (20 sources) Vitamin B12 Start: 04-24-19 21 inject 1000 ug by subcutaneous injection every [...] Start: 07-01-2018 take 1 tablet by donna every other week furosemide 20 mg Tab See Instructions, 1 tab(s) Oral q 2 weeks, Refills(s) 0 Start Date: 07/01/18 Status: Ordered ibuprofen 800 mg oral tablet (5 sources) Nonsteroidal Anti-inflammatory Drug Start: 04-24-2020 End: 09-10-2022 take 800 mg by mouth four times daily Ibuprofen Discontinued 800 MG PO Four times daily April 24, 2020 12:00am September 10, 2022 10:49am losartan potassium 100 mg oral tablet (20 sources) Angiotensin 2 Receptor Mike Start: 06-18-2011 take 1 tablet by mouth once daily losartan 100 mg ORAL tablet Take 1 tablet by mouth once daily. 0 06/18/2011 Active Losartan America garcia Active Comment on above: Take 1 tablet by donna th once daily. Vitamin D3 1000 intl units oral tablet [...] and other heart disease; Translations: [Atherosclerosis of eyak arteries of extremities with intermittent claudication, bilateral [...] esophagitis] Onset: 3 01-13-2017 Chronic Essential hypertension (8 sources) Hypertensive disorder; Translations: [Essential hypertension] Onset: 7 07-01-2013 Chronic Joint disorders and dislocations; trauma-related (2 sources) Dislocation of hip joint; Translations: [Unspecified dislocation of unspecified hip, initial encounter] Onset: 2 Episodic Open wounds of extremities (2 sources) Puncture wound without foreign body of right lesser toe(s) without damage to nail, initial encounter; Translations: [Unspecified open wound, right lower leg, initial encounter] Onset: 2 Episodic Osteoarthritis (19 sources) Osteoarthritis of right knee joint; Translations: [Unilateral primary osteoarthritis, right knee] Onset: 3 07-01-2013 Chronic Other aftercare (1 source) Other intermediate (current) drug therapy; Translations: [OTH ASSISTED CURRENT DRUG THERAPY] Onset: 3 Episodic Other [...] to excess calories] Onset: 3 Chronic Other nutritional; endocrine; and metabolic disorders (2 sources) Obesity; Translations: [Obesity, unspecified] Onset: 2 06-18-2011 Chronic Other skin disorders (1 source) Disorder [...] sources) Lumbar radiculopathy; Translations: [Radiculopathy, lumbar region] Onset: 4 Episodic Superficial injury; contusion (14 sources) Contusion of elbow; Translations: [Contusion of left elbow, initial encounter] Episodic Thyroid disorders (12 sources) Hypothyroidism; Translations: [Hypothyroidism, unspecified] Onset: 2 09-14-2019 Chronic Unclassified (3 sources) CONTACT W/AND [...] Other Problems Problem Classification Problem Date Documented Date Episodic/Chronic Coagulation and hemorrhagic disorders (1 source) [...] AGNST/STRUCK OTH OBJ INIT] Onset: 10-09-2021 Episodic Fracture of lower limb (2 sources) Closed fracture of shaft of fibula; Translations: [Unspecified fracture of shaft of unspecified fibula, initial encounter for closed fracture] Onset: 01-07-2017 01-07-2017 Episodic Inflammation; infection of eye (except that caused by tuberculosis or sexually transmitteddisease) (2 sources) Uveitis; 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] Onset: 07-01-2011 07-01-2011 Episodic Malaise and fatigue (1 source) Other fatigue; Translations: [OTHER FATIGUE] Onset: 05-24-2022 Episodic Nutritional deficiencies (4 sources) Cobalamin deficiency; Translations: [Vitamin B deficiency] Onset: 07-01-2011 09-14-2019 Episodic Other circulatory disease (4 sources) Hemorrhage, not elsewhere classified; Translations: [HEMORRHAGE NOT ELSEWHERE CLASSIFIED] Onset: 03-06-2022 Episodic Other connective tissue disease (4 sources) Pain in right foot; Translations: [PAIN IN RIGHT FOOT] Onset: 04-22-2022 Episodic Other connective tissue disease (3 sources) Pain in right toe(s); Translations: [PAIN IN RIGHT TOES] Onset: 10-07-2021 Episodic Other connective tissue disease (2 sources) Personal history of other diseases of the musculoskeletal system and connective tissue; Translations: [Personal history of other musculoskeletal disorders] Onset: 07-01-2011 07-01-2011 Episodic Other injuries and conditions due to external causes (2 sources) H/O: knee problem; Translations: [Personal history of other (healed) physical injury and trauma] Onset: 07-01-2011 07-01-2011 Episodic Other nervous system disorders (3 sources) [...] SCREEN MALIG NEOPLASM COLON] Onset: 05-24-2022 Episodic Other skin disorders (2 sources) Loss of hair; Translations: [Nonscarring hair loss, unspecified] Onset: 06-18-2011 06-18-2011 Episodic Residual codes; unclassified (2 sources) History of operative procedure on foot; Translations: [Other specified postprocedural states] Onset: 07-01-2011 04-15-2021 Episodic Residual codes; unclassified (2 sources) Human leukocyte antigen B27 test positive; Translations: [Genetic susceptibility to other disease] Onset: 07-01-2011 07-01-2011 Episodic Skin and subcutaneous tissue infections (1 source) Cellulitis of right lower limb; Translations: [CELLULITIS OF RIGHT LOWER LIMB] Onset: 10-09-2021 Episodic Unclassified (2 sources) herpes 07-03-2010 Unclassified (2 sources) pinched nerve in back L 4-5 07-03-2010 Unclassified (1 source) CONTACT W/AND (SUSP) EXPOS COVID-19; Translations: [CONTACT W/AND (SUSP) EXPOS COVID-19] Onset: 01-03-2022 Results Test Name Value Interpretation Reference Range Facility CNOVon 06-24-2023 CNOV Office Visit ([facility] ) LEELEE CEDILLO ([id number]) 1950 F Date Time Provider Department 06/24/23 1:40 PM GHANSHYAM LOMBARDI [facility] During your visit today, we recorded the following information about you: Pulse Respiration Blood pressure Weight 93/minute 18/minute 115/56 87.4 kg Height 1.727 m Ghanshyam Lombardi MD 06/24/2023 1:45 PM Signed Staff note: Patient seen and examined Patient with severe back and leg pain Complex history of multiple spine fusion c/b infection, requiring extension surgery (lateral corpectomy) Now with MECHANICAL back pain and leg pain, worse when getting out of bed, Difficulty with walking Exam 5/5 aside from BL HF 4/5 and right DF/PF 4/5 No umn signs Areflexic Forward posture of exam Instability of gait due to pain, likely Normal UE exam Imaging reveals previous hardware and instability at 5.1 disc, kyphotic upright, 35-40 degrees lordotic supine Plan 5.1 ALIF, revision posterior We discussed the minimum criteria for elective surgery: A. Imaging fits with history and examination and has surgical correctable findings B. Conservative modalities have been trialed in a meaningful way that have failed to provide relief C. The pain is significant enough to interfere with QOL and undergoing an irreversible surgical procedure makes sense to the patient from a symptom severity standpoint A and B were confirmed by me, C was confirmed by the patient. With this in mind it is reasonable to proceed with: As above CT lumbar spine MRI thoracic spine due to severe gait instability I had a long discussion with the patient in the office today, they had many appropriate questions, all were answered to their satisfaction, no guarantees were offer nor implied in our discussion. 30 minutes spent Ghanshyam Lombardi MD Referring Provider: SARA VICK [[id number]] Allergies As of Date: 06/24/2023 Noted Allergy Reaction SULFA (SULFONAMIDE ANTIBIOTICS) 07/16/2006 Date Reviewed: 06/24/2023 Reviewed by: Kaur Manzano MA - Fully Assessed Reason for Visit: New Patient [172] Primary Visit Diagnosis:Adjacent segment disease of lumbar spine with history of fusion procedure [M51.36, Z98.1] Other Visit Diagnosis:Chronic bilateral low back pain with bilateral sciatica [M54.42, M54.41, G89.29] Order(s):MRI THORACIC SPINE WO IVCON [[id number]] Order #: [id number] FUTURE CT LUMBAR SPINE WO IVCON [[id number]] Order #: [id number] FUTURE Prescriptions as of 06/24/2023 - pantoprazole DR (PROTONIX) 40 mg tablet Take 40 mg by mouth once daily. - gabapentin (NEURONTIN) 600 mg tablet Take 600 mg by mouth twice daily. - diclofenac, EC, (VOLTAREN) 75 mg EC tablet Take 75 mg by mouth twice daily. - tiZANidine HCl 4 mg capsule Take 4 mg by mouth daily at bedtime. - levothyroxine (SYNTHROID) 125 mcg tablet Take 1 tablet by mouth once daily. - losartan 100 mg ORAL tablet Take 1 tablet by mouth once daily. Problem List As Of Date 06/24/2023 Noted Resolved Other specified acquired hypothyroidism [E03.8] 06/18/2011 Obesity [E66.9] 06/18/2011 Hair loss [L65.9] 06/18/2011 Status post rotator cuff surgery, right [Z98.89*07/01/2011 H/O: RCT (rotator cuff tear),right [Z87.39] 07/01/2011 History of tear of meniscus of knee joint [Z87.*07/01/2011 Status post foot surgery [Z98.890] 07/01/2011 Vitamin B deficiency [E53.9] 07/01/2011 HLA B27 (HLA B27 positive) [Z15.89] 07/01/2011 Uveitis, history [H20.9] 07/01/2011 Autoimmune thyroiditis [E06.3] 07/01/2011 Unspecified essential hypertension [I10] 01/07/2017 Fracture closed, fibula, shaft [S82.409A] 01/07/2017 Encounter Status:Closed by GHANSHYAM LOMBARDI on 06/24/23 Normal [facility] XR LUMBAR 4V AP/LAT/ FLEX/EX Ton 06-24-2023 XR LUMBAR 4V AP/LAT/ FLEX/EXT * * *Final Report* * * DATE OF EXAM: Jun 24 2023 12:40PM ELSA 5231 - XR LUMBAR 4V AP/LAT/ FLEX/EXT / PROCEDURE REASON: Fusion of spine of thoracolumbar region * * * * Physician Interpretation * * * * HISTORY: Fusion of spine of thoracolumbar region . TECHNIQUE: XR SCOLIOSIS 2V PA STAND/LAT, XR LUMBAR 4V AP/LAT/ FLEX/EXT Laterality: NOT APPLICABLE Number of different views (projections): 2 (accession [id number]), 4 (accession [id number]) COMPARISON: Radiographs dated 09/23/2021 RESULT: Counting reference: Lumbosacral junction. For the purposes of this report, L4-5 is considered the level of the iliac crest and there are 5 lumbar-type vertebrae. Anatomic Variants: None. Again seen are the postoperative changes with T11-L4 fusion. Hardware is intact with no evidence of loosening. No listhesis. No change in alignment of the lumbar spine with flexion or extension. No evidence of acute spinal fracture or dislocation. There are multilevel degenerative changes with disc space narrowing, marginal endplate osteophytes and facet joint hypertrophy. Partial visualization of the left total hip arthroplasty. Degenerative changes at the bilateral sacroiliac and right hip joints and pubic symphysis. No other significant abnormality. - IMPRESSION: Postoperative changes with no evidence of hardware complication. Grip Assembler: ELAINE Transcribe Date/Time: Jun 24 2023 12:52P Dictated by : LATASHA QUEZADA MD This examination was interpreted and the report reviewed and electronically signed by: LATASHA QUEZADA MD on Jun 24 2023 12:55PM EST [id number] Normal [facility] XR Lumbar spine Views W flex ion and W extensionon 06-24-2023 [facility] XR SCOLIOSIS 2V PA STAND/LAT on 06-24-2023 XR SCOLIOSIS 2V PA STAND/LAT * * *Final Report* * * DATE OF EXAM: Jun 24 2023 12:39PM ELSA 5251 - XR SCOLIOSIS 2V PA STAND/LAT / PROCEDURE REASON: Fusion of spine of thoracolumbar region * * * * Physician Interpretation * * * * HISTORY: Fusion of spine of thoracolumbar region . TECHNIQUE: XR SCOLIOSIS 2V PA STAND/LAT, XR LUMBAR 4V AP/LAT/ FLEX/EXT Laterality: NOT APPLICABLE Number of different views (projections): 2 (accession [id number]), 4 (accession [id number]) COMPARISON: Radiographs dated 09/23/2021 RESULT: Counting reference: Lumbosacral junction. For the purposes of this report, L4-5 is considered the level of the iliac crest and there are 5 lumbar-type vertebrae. Anatomic Variants: None. Again seen are the postoperative changes with T11-L4 fusion. Hardware is intact with no evidence of loosening. No listhesis. No change in alignment of the lumbar spine with flexion or extension. No evidence of acute spinal fracture or dislocation. There are multilevel degenerative changes with disc space narrowing, marginal endplate osteophytes and facet joint hypertrophy. Partial visualization of the left total hip arthroplasty. Degenerative changes at the bilateral sacroiliac and right hip joints and pubic symphysis. No other significant abnormality. - IMPRESSION: Postoperative changes with no evidence of hardware complication. Grip Assembler: PSCFranklyn Transcribe Date/Time: Jun 24 2023 12:52P Dictated by : LATASHA QUEZADA MD This examination was interpreted and the report reviewed and electronically signed by: LATASHA QUEZADA MD on Jun 24 2023 12:55PM EST [id number] Normal [facility] XR Thoracic and lumbar spine Views for scoliosis W standingon 06-24-2023 [facility] US arterial pvr rest Vito US arterial pvr rest LE [facility] [address] Ultrasound Report Signed Patient: Leelee Cedillo MR#: [id number] 56 : 1950 Acct:[id number] Age/Sex: 72 / F ADM Date: 05/22/23 Loc: Room: Type: [facility] Attending Dr: Kiran Kessler MD Ordering [...] Drake Bates M.D.05/25/2023 10:58 AM Dictation Location: [place] [address] Tech: Katy Leone Transcribed By: LISBETH 05/25/23 1058 Dictated By: Drake Bates MD 05/25/23 1057 Signed By: 05/25/23 1058 Normal [facility] US venous duplex LE BIon US venous duplex LE BI [facility] Main [place] [address] [place] [address] Ultrasound Report Signed Patient: Leelee Cedillo MR#: [id number] 57 : 1950 Acct:[id number] Age/Sex: 72 / F ADM Date: 05/22/23 Loc: Room: Type: [facility] Attending Dr: Kiran Kessler MD Ordering [...] vein has previously been stripped. No significant chalk cutter incompetence is noted. The lesser saphenous vein [...] Drake Bates M.D.05/25/2023 10:57 AM Dictation Location: [place] [address] Tech: Katy Leone Transcribed By: LISBETH 05/25/23 105 Dictated By: Drake Bates MD 05/25/23 1055 Signed By: 05/25/23 1057 [facility] ED Note-Physicianon 11-26-19 ED Note-Physician [facility] Comment on above: Result Comment: Elec tronically Signed By: Sathya De La O PA-C\.br\Date and Time Signed: 11/22/22 14:13 EDT\.br\Electronically Co-Signed By: Flavio Castillo MD\.br\Date and Time Co-Signed: 11/25/22 13:23 EDT Consent for Treatmenton Consent for Treatment [id number]#1.0 0CD:127 Normal [facility] Discharge Instructionson Discharge Instructions [id number]#1. 00CD:127 Normal [facility] ED Clinical Summaryon 2022 ED Clinical Summary Normal [facility] ED Patient Education Noteon 11-22-2022 ED Patient Education Note Normal [facility] ED Patient Summaryon 023 ED Patient Summary Normal [facility] Neurology Forms- Texton Neurology Forms- Text [id number]#1. 00CD:127 Normal [facility] EEGon 09-11-2022 EEG [facility] Comment on above: Result Comment: Elec tronically Signed By: Jonathan Powell DO\.br\Date and Time Signed: 09/11/22 10:41 EDT Consent for Treatmenton 08-19 Consent for Treatment [id number]#1.0 0CD:127 Normal [facility] Physician Orderon 09-03-2022 Physician Order [id number]#1.0 0CD:127 Normal [facility] VC CONSULT FOLLOWUPon 2022 VC CONSULT FOLLOWUP Patient: ITZEL CEDILLO Exam Date: 08/08/2022 : 1950 Gender:F Ordering : DR ALFRED UMAÑA M.D. Admission #: [id number] Family : Order #: [id number] CLICK HERE TO VIEW EXAM RADIOLOGY REPORT [...] Umaña MD on 08/08/2022 at 10:59 Normal [facility] VC EXT VENOUS LT LIMITEDon 0 08-08-2022 VC EXT VENOUS LT LIMITED Patient: LEELEE CEDILLO Exam Date: 08/08/2022 : 1950 Gender:F Ordering : DR ALFRED UMAÑA M.D. Admission #: [id number] Family : Order #: [id number] CLICK HERE TO VIEW EXAM RADIOLOGY REPORT [...] Umaña MD on 08/08/2022 at 09:43 Normal [facility] Coding Summary.on 07-29-2022 Coding Summary. Normal [facility] Insurance Correspondenceon 0 07-29-2022 Insurance Correspondence [id number]#1.0 0CD:127 Normal [facility] Insurance Correspondence Off iceon 07-29-2022 Insurance Correspondence Office [id number]#1. 00CD:127 Normal [facility] Discharge Instructionson Discharge Instructions [id number]#1. 00CD:127 Normal [facility] LbuL2mhu 07-28-2022 HbA1c (Bld) [Mass fraction] 5.3 % Normal <=5.9 [facility] Comment on above: Performed By: #### 2 207171, 4588251, 9285977, 0979156, 643031980, 27843599 ####[facility] [address] [place] [address] Insurance Correspondenceon 0 07-28-2022 Insurance Correspondence [id number]#1. 00CD:127 Normal [facility] C. diff by PCRon 07-27-2022 Clostridium difficile by PCR Negative Normal Negative [facility] Comment on above: Order Comment: Order added by Discern Expert. Result Comment: This test result should be correlated with clinical presentations and medical history by a healthcare provider to determine its clinical significance. Performed By: #### 3 [id number], [id number], [id number] ####[facility] [address] [place] [address] CDiff PCRon 07-27-2022 Cdiff Specimen Acceptable Acceptable Normal [facility] Comment on above: Performed By: #### 3 [id number], [id number], [id number] ####[facility] [address] [place] [address] Order Cancelled No, PCR to follow Normal Fi [facility] Comment on above: Performed By: #### 3 [id number], [id number], [id number] ####[facility] [address] [place] [address] CHEMISTRYOrdered By: SYSTEM SYSTEM on 07-27-2022 Anion gap [Moles/Vol] 9 mmol/L Normal 6 - 16 mEq/L [facility] Chloride [Moles/Vol] 106 mmol/L Normal 101 - 1 11 mmol/L [facility] Cholesterol [Mass/Vol] 160 mg/dL [...] T4 [Mass/Vol] 1.91 ng/dL High 0.58 - 1. 64 ng/dL [facility] Potassium [Moles/Vol] 4.0 mmol/L Normal 3.5 - 5.3 mmol/L [facility] Sodium [Moles/Vol] 137 mmol/L Normal 135 - 145 mmol/L [facility] Triglyceride [Mass/Vol] 83 mg/dL Normal <=149mg/dL [facility] TSH Qn 0.16 m[IU]/L Low 0.34 - 5.60 mcIU/mL [facility] Consultation Noteon 07-28-19 Consultation Note Normal [facility] Comment on above: Result Comment: Elec tronically Signed By: Smita Ramos RN\.br\Date and Time Signed: 07/27/22 07:14 EDT\.br\Electronically Co-Signed By: Jonathan Powell DO\.br\Date and Time Co-Signed: 07/27/22 10:23 EDT EMS Documentationon 07-28-19 EMS Documentation Normal [facility] EMS Documentation Normal [facility] EMS Documentation Normal [facility] Enteric Panel by PCRon 07-27 C. coli+jejuni+upsaliens is DNA VIVIANA+non-probe Ql (Stl) Not detected Normal [facility] Comment on above: Result Comment: Test ing was performed utilizing reverse casing trimmer (RT), polymerase chain reaction (PCR), and array [...] nulcleic acid test. Performed By: #### 3 [id number], [id number], [id number] ####[address] [place] [address] E. coli stx1+stx2 genes VIVIANA+non-probe Ql (Stl) Negative Normal [facility] Comment on above: Performed By: #### 3 [id number], [id number], 440610693 ####[address] [place] [address] Enteric Panel Intrl QC Pass Normal [facility] Comment on above: Result Comment: Test ing was performed utilizing reverse casing trimmer (RT), polymerase chain reaction (PCR), and array [...] 1 and 2. Performed By: #### 3 [id number], [id number], [id number] ####[address] [place] [address] Norovirus genogroup I+II RNA VIVIANA+non-probe Ql (Stl) Not detected Normal [facility] Comment on above: Performed By: #### 3 [id number], 3927898760, 854950669 ####[address] [place] [address] Rotavirus A RNA VIVIANA+non-probe Ql (Stl) Not detected Normal [facility] Comment on above: Performed By: #### 3 157936798, 1645653635, 096157237 ####[address] [place] [address] S. enterica+bongori DNA VIVIANA+non-probe Ql (Stl) Not detected Normal [facility] Comment on above: Result Comment: This test result should be correlated with clinical presentations and medical history by a healthcare provider to determine its clinical significance. Performed By: #### 3 [id number], [id number], [id number] ####[facility] [address] [place] [address] Shigella species+EIEC invasion plasmid antigen H ipaH gene VIVIANA+non-probe Ql (Stl) Not detected Normal [facility] Comment on above: Performed By: #### 3 [id number], 8109018817, 478936065 ####[facility] [address] [place] [address] V. cholerae+parahaemolyt icus+vulnificus DNA VIVIANA+non-probe Ql (Stl) Not detected Normal [facility] Comment on above: Performed By: #### 3 [id number], 9699041663, 258007700 ####[facility] [address] [place] [address] Y. enterocolitica DNA VIVIANA+non-probe Ql (Stl) Not detected Normal [facility] Comment on above: Performed By: #### 3 [id number], 9131156506, 672210358 ####[facility] [address] [place] [address] Free T4on 07-27-2022 Free T4 [Mass/Vol] 1.91 ng/dL High 0.58-1.64 [facility] Comment on above: Order Comment: Free T4 added by Discern Rule due to a TSH result of <0.34 or >5.60. Performed By: #### 2 108134, 2813870, 6502327, 7115256, 865709697, 60596249 ####[facility] [id number] HEMATOLOGYOrdered By: Tonya Martin on 07-27-2022 WBC corrected for nucl RBC Auto (Bld) [#/Vol] 7.8 E9/L Normal 4.0 - 11.0 E9/L [facility] HemeAutoSS Inpatient Clinical Summaryon 07-27-2022 Inpatient Clinical Summary Normal [facility] Inpatient Patient Summaryon 07-27-2022 Inpatient Patient Summary Normal [facility] Inpatient Patient Summary Normal [facility] Interdisciplinary Note - Oumar e Manageron 07-27-2022 Interdisciplinary Note - Viner Operator Normal [facility] Comment on above: Result Comment: Elec tronically Signed By: Tonya Matias\Date and Time Signed: 07/27/22 12:04 EDT Interdisciplinary Note - Pipe n 07-27-2022 Interdisciplinary Note - OT Normal [facility] Interdisciplinary Note - PTo n 07-27-2022 Interdisciplinary Note - PT PT eval completed; pt scores 16/24 on the AM-PAC 6-Clicks 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 Pt is able to safely perform bed <> chair transfers as she was doing prior to admission and has no further PT needs at this time. Normal [facility] Lipid Panelon 07-27-2022 Cholesterol in LDL [Mass/Vol] 91 mg/dL Normal <=129 [facility] Comment on above: Performed By: #### 2 359964, 6257059, 5897379, 9106033, 821667377, 76871825 ####[facility] [address] [place] [address] Cholesterol [Mass/Vol] 160 mg/dL Normal 120-200 [facility] Comment on above: Performed By: #### 2 363590, 6513343, 0133312, 4251299, 816044083, 73911123 ####[facility] [address] [place] [address] Cholesterol in HDL [Mass/Vol] 52 mg/dL Invalid Interpretation Code [facility] Comment on above: Result Comment: HDL > or equal to 60 mg/dL: Low cardiovascular riskHDL < 40 mg/dL : High cardiovascular risk Performed By: #### 2 152505, 4478875, 3077476, 2507882, 591537460, 15223890 ####[facility] [address] [place] [address] Cholesterol in VLDL [Mass/Vol] 17 mg/dL Normal 7-40 [facility] Comment on above: Performed By: #### 2 619808, 4819313, 7939996, 3968290, 719985868, 06529041 ####[facility] [address] [place] [address] Triglyceride [Mass/Vol] 83 mg/dL Normal <=149 [facility] Comment on above: Performed By: #### 2 338790, 5337658, 1102714, 1974827, 480232887, 18910895 ####[facility] [address] [place] [address] Lyteson 07-27-2022 Anion gap [Moles/Vol] 9 mmol/L Normal 6-16 [facility] Comment on above: Performed By: #### 2 223672, 4265205, 3878149, 4977752, 625391953, 99422707 ####[facility] [address] [place] [address] Chloride [Moles/Vol] 106 mmol/L Normal 101-111 [facility] Comment on above: Performed By: #### 2 708586, 1792380, 5171924, 7438333, 979367359, 80809792 ####[facility] [address] [place] [address] CO2 [Moles/Vol] 26 mmol/L Normal 21-31 [facility] Comment on above: Performed By: #### 2 358626, 9975668, 3057389, 1545683, 461334066, 14820548 ####[facility] [address] [place] [address] Potassium [Moles/Vol] 4.0 mmol/L Normal 3.5-5.3 [facility] Comment on above: Performed By: #### 2 502354, 0337149, 8965671, 0608430, 352089699, 75803872 ####[facility] [address] [place] [address] Sodium [Moles/Vol] 137 mmol/L Normal 135-145 [facility] Comment on above: Performed By: #### 2 019608, 0250941, 5980388, 9062140, 539384988, 35902055 ####[facility] [address] [place] [address] MRA Head w/o Contraston 04-0 MRA Head w/o Contrast Normal [facility] MRI Brain w/o Contraston MRI Brain w/o Contrast Normal [facility] Monitor Recordon 07-27-2022 Monitor Record [id number]#1. 00CD:127 Normal [facility] Monitor Record [id number]#1. 00CD:127 Normal [facility] Patient Education - Texton 0 07-27-2022 Patient Education - Text Normal [facility] RAD - MRI Screening Formon 0 07-27-2022 RAD - MRI Screening Form [id number]#1. 00CD:127 Normal [facility] TSH With T4fr Reflexon 07-27 TSH Qn 0.16 m[IU]/L Low 0.34-5.60 [facility] Comment on above: Performed By: #### 2 344272, 2295717, 9108136, 9619196, 058997725, 92129622 ####[facility] [address] [place] [address] Troponin 9 Hr.on 07-27-2022 Troponin I.cardiac [Mass/Vol] 6.70 pg/mL Low 10.10-27.10 [facility] Comment on above: Result Comment: The 95% CI (Confidence Interval) PPV (Positive Predictive Value) for myocardial infarction in females is 38 pg/mL, in males 51 pg/mL. The results should be used in conjunction with clinical conditions of myocardial infarction.(Access High Sensitivity Troponin I Instructions For Use, Christy Larry, November 2017) Performed By: #### 1 [id number] ####[facility] [address] [place] [address] WBCon 07-27-2022 WBC corrected for nucl RBC Auto (Bld) [#/Vol] 7.8 E9/L Normal 4.0-11.0 [facility] Comment on above: Performed By: #### 2 373436, 9315864, 4251263, 4289124, 587718644, 24810445 ####[address] [address] Auto Diffon 07-26-2022 Basophils/100 WBC (Bld) 0.5 % Normal 0.0-2.0 [facility] Comment on above: Order Comment: Order Added by Discern Expert. Performed By: #### 2 003009, 5017749, 0529473, 6587488, 85706771, 56776433 ####[address] [address] Basophils/Leukocytes Auto (Bld) [Pure # fraction] 0.1 E9/L Normal 0.0-0.2 [facility] Comment on above: Order Comment: Order Added by Discern Expert. Performed By: #### 2 831493, 0429286, 9913827, 0787939, 57384763, 44587251 ####[address] [address] Eosinophils/100 WBC (Bld) 0.5 % Normal 0.0-8.0 [facility] Comment on above: Order Comment: Order Added by Discern Expert. Performed By: #### 2 279174, 8193144, 2455422, 1320016, 26458463, 32101581 ####[address] [address] Eosinophils/Leukocyte s Auto (Bld) [Pure # fraction] 0.1 E9/L Normal 0.0-0.5 [facility] Comment on above: Order Comment: Order Added by Discern Expert. Performed By: #### 2 948555, 0129948, 7120834, 9317816, 03723595, 75075186 ####[address] [address] Lymphocytes/100 WBC (Bld) 14.5 % Normal 14.0-50.0 [facility] Comment on above: Order Comment: Order Added by Discern Expert. Performed By: #### 2 554059, 5401562, 4453318, 2233241, 79122910, 22203610 ####[address] [address] Lymphocytes/Leukocyte s Auto (Bld) [Pure # fraction] 2.1 E9/L Normal 1.0-4.0 [facility] Comment on above: Order Comment: Order Added by Discern Expert. Performed By: #### 2 021992, 5215659, 5763803, 5503563, 06824578, 76628032 ####[address] [address] Monocytes/100 WBC (Bld) 6.5 % Normal 4.0-14.0 [facility] Comment on above: Order Comment: Order Added by Discern Expert. Performed By: #### 2 732388, 0336108, 1671515, 7146305, 99287816, 69399835 ####[address] [address] Monocytes/Leukocytes Auto (Bld) [Pure # fraction] 0.9 E9/L Normal 0.2-1.0 [facility] Comment on above: Order Comment: Order Added by Discern Expert. Performed By: #### 2 212915, 8349974, 0211729, 5989376, 52387522, 48289205 ####[address] [address] Neutrophils/100 WBC (Bld) 78.0 % High 36.0-75.0 [facility] Comment on above: Order Comment: Order Added by Discern Expert. Performed By: #### 2 722335, 0760369, 6403349, 2103793, 39183721, 74709618 ####[address] [place] [address] Neutrophils/Leukocyte s Auto (Bld) [Pure # fraction] 11.4 E9/L High 2.0-7.5 [facility] Comment on above: Order Comment: Order Added by Discern Expert. Performed By: #### 2 297951, 8137143, 9795372, 5403113, 58921635, 55043004 ####[address] [place] [address] BMPon 07-26-2022 Creatinine [Mass/Vol] 0.8 mg/dL Normal 0.5-1.3 [facility] Comment on above: Performed By: #### 2 587630, 9478909, 5796200, 0890400, 53098378, 75248852 ####[facility] [address] [place] [address] Urea nitrogen [Mass/Vol] 11 mg/dL Normal 5-21 [facility] Comment on above: Performed By: #### 2 743434, 3287729, 8648789, 3094302, 10946272, 08815417 ####[facility] [address] [place] [address] Urea nitrogen/Creatinine [Mass ratio] 14 No Units Normal 10-20 [facility] Comment on above: Performed By: #### 2 048089, 7493942, 4890299, 7367257, 37135207, 59980338 ####[facility] [address] [place] [address] Anion gap [Moles/Vol] 13 mmol/L Normal 6-16 [facility] Comment on above: Performed By: #### 2 155395, 8796365, 7602242, 5433733, 39998656, 40822104 ####[facility] [address] [place] [address] Calcium [Mass/Vol] 9.3 mg/dL Normal 8.9-11.1 [facility] Comment on above: Performed By: #### 2 340296, 0400010, 4630570, 8848567, 50908628, 57875205 ####[facility] [address] [place] [address] Chloride [Moles/Vol] 101 mmol/L Normal 101-111 [facility] Comment on above: Performed By: #### 2 942046, 5531619, 3247388, 0516989, 63285007, 37824143 ####[facility] [address] [place] [address] CO2 [Moles/Vol] 27 mmol/L Normal 21-31 [facility] Comment on above: Performed By: #### 2 555326, 3907368, 1439587, 6646043, 74220368, 20157425 ####[facility] [address] [place] [address] Glucose [Mass/Vol] 88 mg/dL Normal 55-199 [facility] Comment on above: Result Comment: If t his glucose result represents a fasting glucose, interpretation should refer to the following reference range: 55-99 mg/dL Performed By: #### 2 544366, 0733366, 0111358, 6403783, 98670131, 90663897 ####[facility] [address] [place] [address] Potassium [Moles/Vol] 3.6 mmol/L Normal 3.5-5.3 [facility] Comment on above: Performed By: #### 2 023440, 9087150, 3465979, 4840113, 61415452, 30994362 ####[facility] [address] [place] [address] Sodium [Moles/Vol] 137 mmol/L Normal 135-145 [facility] Comment on above: Performed By: #### 2 757525, 6791754, 4502410, 9884391, 92876890, 48383558 ####[facility] [address] [place] [address] CBC w/ Auto Diffon 3 Erythrocyte distribution width (RBC) [Ratio] 13.9 % Normal 10.9-14.2 [facility] Comment on above: Performed By: #### 2 562128, 9359665, 5616428, 7563608, 01472129, 12175144 ####[facility] [address] [place] [address] Hematocrit (Bld) [Volume fraction] 47.0 % High 34.0-46.0 [facility] Comment on above: Performed By: #### 2 648774, 8918884, 3494021, 3559067, 61350410, 46454632 ####[address] [address] Hemoglobin (Bld) [Mass/Vol] 15.3 g/dL Normal 12.0-16.0 [facility] Comment on above: Performed By: #### 2 516687, 1486792, 0158914, 6936540, 24427436, 85336727 ####[address] [address] MCH (RBC) [Entitic mass] 29.2 pg Normal 27.0-34.0 [facility] Comment on above: Performed By: #### 2 655188, 3594359, 0036981, 8519244, 58944302, 88038634 ####[address] [address] MCHC (RBC) [Mass/Vol] 32.7 g/dL Normal 31.4-36.0 [facility] Comment on above: Performed By: #### 2 342966, 2466487, 0209343, 0731166, 67251029, 31979145 ####[address] [address] MCV (RBC) [Entitic vol] 89.3 fL Normal 80.0-100.0 [facility] Comment on above: Performed By: #### 2 209761, 7626366, 7142873, 4562845, 61534109, 62359240 ####[address] [address] Platelet mean volume (Bld) [Entitic vol] 6.7 fL Normal 6.4-10.8 [facility] Comment on above: Performed By: #### 2 086641, 7396974, 5210967, 0284787, 85503695, 74794104 ####[address] [address] Platelets (Bld) [#/Vol] 324.0 E9/L Normal 150.0-500.0 [facility] Comment on above: Performed By: #### 2 947507, 3017751, 0632910, 9255089, 82721747, 68938410 ####[facility] [address] [place] [address] RBC (Bld) [#/Vol] 5.3 E12/L Normal 4.3-5.9 [facility] Comment on above: Performed By: #### 2 677437, 4145100, 1311723, 4939883, 95058324, 98968410 ####[facility] [address] [place] [address] WBC corrected for nucl RBC Auto (Bld) [#/Vol] 14.6 E9/L High 4.0-11.0 [facility] Comment on above: Performed By: #### 2 952713, 7492854, 7853780, 8368686, 18168510, 83941939 ####[facility] [address] [place] [address] CHEMISTRYOrdered By: SYSTEM SYSTEM on 07-26-2022 Troponin I.cardiac [Mass/Vol] 6.70 pg/mL Low 10.10 - 27.10 pg/mL [facility] Troponin I.cardiac [Mass/Vol] 5.40 pg/mL Low 10.10 - 27.10 pg/mL [facility] Remisol Troponin I.cardiac [Mass/Vol] 6.00 pg/mL Low 10.10 - 27.10 pg/mL [facility] Anion gap [Moles/Vol] 13 mmol/L Normal 6 - 16 mEq/L [facility] Calcium [Mass/Vol] 9.3 mg/dL Normal 8.9 - 11. 1 mg/dL [facility] Chloride [Moles/Vol] 101 mmol/L Normal 101 - 1 11 mmol/L [facility] CO2 [Moles/Vol] 27 mmol/L Normal 21 - 31 mmol/L [facility] Creatinine [Mass/Vol] 0.8 mg/dL Normal 0.5 - 1.3 mg/dL [facility] GFR/1.73 sq M.predicted among blacks MDRD (S/P/Bld) [Vol rate/Area] mL/min/1.73 m2 Normal >=59mL/min/1 .73 m2 [facility] Chem S GFR/1.73 sq M.predicted among non-blacks MDRD (S/P/Bld) [Vol rate/Area] mL/min/1.73 m2 Normal >=59mL/min/1 .73 m2 [facility] Chem S Glucose [Mass/Vol] 88 mg/dL Normal 55 - 199 mg/dL [facility] Remisol Magnesium [Mass/Vol] 2.0 mg/dL Normal 1.3 - 2 .4 mg/dL [facility] Remisol Potassium [Moles/Vol] 3.6 mmol/L Normal 3.5 - 5.3 mmol/L [facility] Remisol Sodium [Moles/Vol] 137 mmol/L Normal 135 - 145 mmol/L [facility] Remisol Urea nitrogen [Mass/Vol] 11 mg/dL Normal 5 - 21 mg/dL [facility] Remisol Urea nitrogen/Creatinine [Mass ratio] 14 mg/mg Normal 10 - 20 [facility] Remisol CHEMISTRYOrdered By: Lab ROP User on 07-26-2022 Glucose [Mass/Vol] 106 mg/dL High 55 - 99 mg/dL [facility] POC Subsection Comment on above: Result Comment: [facility] POC Device SN [id number] Invalid Interpretation Code [facility] POC Subsection POC User ID [id number] Invalid Interpretation Code [facility] POC Subsection POC Username SHANKAR ABARCA Invalid Interpretation Code [facility] POC Subsection CT Head or Brain w/o Contras ton 07-26-2022 CT Head or Brain w/o Contrast Normal [facility] Capillary Glucose POCon Glucose [Mass/Vol] 106 mg/dL High 55-99 [facility] Comment on above: Result Comment: Parker GIL Performed By: #### 2 [id number] ####[facility] [address] [place] [address] Consent for Treatmenton Consent for Treatment [id number] 0CD:127 Normal [facility] ED Clinical Summaryon 2022 ED [facility]-19 ED Note-Physician Normal [facility] Comment on above: Result Comment: Elec tronically Signed By: Yaritza Cedeño PA-C\.br\Date and Time Signed: 07/26/22 14:17 EDT\.br\Electronically Co-Signed By: Lance Wu M.D.\.br\Date and Time Co-Signed: 07/26/22 15:36 EDT ED Patient Education Noteon 07-26-2022 ED Patient Education Note Normal [facility] ED Patient Summaryon ED Patient Summary Normal [facility] HEMATOLOGYOrdered By: SYSTEM SYSTEM on 07-26-2022 Basophils/100 WBC (Bld) 0.5 % Normal 0.0 - 2.0 % [facility] HemeAutoSS Basophils/Leukocytes Auto (Bld) [Pure # fraction] 0.1 E9/L Normal 0.0 - 0.2 E9/L [facility] HemeAutoSS Eosinophils/100 WBC (Bld) 0.5 % Normal 0.0 - 8.0 % [facility] HemeAutoSS Eosinophils/Leukocyte s Auto (Bld) [Pure # fraction] 0.1 E9/L Normal 0.0 - 0.5 E9/L [facility] HemeAutoSS Lymphocytes/100 WBC (Bld) 14.5 % Normal 14.0 - 50.0 % [facility] HemeAutoSS Lymphocytes/Leukocyte s Auto (Bld) [Pure # fraction] 2.1 E9/L Normal 1.0 - 4.0 E9/L [facility] HemeAutoSS Monocytes/100 WBC (Bld) 6.5 % Normal 4.0 - 14.0 % [facility] HemeAutoSS Monocytes/Leukocytes Auto (Bld) [Pure # fraction] 0.9 E9/L Normal 0.2 - 1.0 E9/L [facility] HemeAutoSS Neutrophils/100 WBC (Bld) 78.0 % High 36.0 - 75.0 % [facility] HemeAutoSS Neutrophils/Leukocyte s Auto (Bld) [Pure # fraction] 11.4 E9/L [...] 07-26-2022 Magnesium [Mass/Vol] 2.0 mg/dL Normal 1.3-2.4 [facility] Comment on above: Performed By: #### 2 [id number], [id number], [id number], [id number], [id number], [id number] ####[facility] [address] [place] [address] Monitor Recordon 07-26-2022 Monitor Record [id number]:127 Normal [facility] Pre-Arrival Noteon 3 Pre-Arrival Note Normal [facility] Troponin 0 Hr.on 07-26-2022 Troponin I.cardiac [Mass/Vol] 6.60 pg/mL Low 10.10-27.10 [facility] Comment on above: Order Comment: pt st ill in imaging, will check back later [id number] 07/26/2022 12:32:06 EDT Result Comment: The 95% CI (Confidence Interval) PPV (Positive Predictive Value) for myocardial infarction in females is 38 pg/mL, in males 51 pg/mL. The results should be used in conjunction with clinical conditions of myocardial infarction.(Access High Sensitivity Troponin I Instructions For Use, [employer], November 2017) Performed By: #### 2 [id number], [id number], [id number], [id number], [id number], [id number] ####[facility] [address] [place] [address] Troponin 3 Hr.on 07-26-2022 Troponin I.cardiac [Mass/Vol] 6.00 pg/mL Low 10.10-27.10 [facility] Comment on above: Result Comment: The 95% CI (Confidence Interval) PPV (Positive Predictive Value) for myocardial infarction in females is 38 pg/mL, in males 51 pg/mL. The results should be used in conjunction with clinical conditions of myocardial infarction.(Mass Mosaic High Sensitivity Troponin I Instructions For Use, [employer], November 2017) Performed By: #### 1 [id number] ####[facility] [address] [place] [address] Troponin 6 Hr.on 07-26-2022 Troponin I.cardiac [Mass/Vol] 5.40 pg/mL Low 10.10-27.10 [facility] Comment on above: Result Comment: The 95% CI (Confidence Interval) PPV (Positive Predictive Value) for myocardial infarction in females is 38 pg/mL, in males 51 pg/mL. The results should be used in conjunction with clinical conditions of myocardial infarction.(Access High Sensitivity Troponin I Instructions For Use, [employer] display technologiesNovember 2017) Performed By: #### 1 [id number] ####[facility] [address] [place] [address] UA With Cult Reflexon 2022 Bacteria LM Ql (Urine sed) TRACE Normal Trace [facility] Comment on above: Performed By: #### 1 [id number] ####[facility] [address] [place] [address] Bilirubin Ql (U) Negative Normal Negative [facility] Comment on above: Performed By: #### 1 [id number] ####[facility] [address] [place] [address] Clarity (U) CLEAR Normal Clear [facility] Comment on above: Performed By: #### 1 [id number] ####[address] [address] Color (U) YELLOW Normal Yellow [facility] Comment on above: Performed By: #### 1 [id number] ####[address] [address] Epithelial cells.squamous LM.HPF (Urine sed) [#/Area] 3-4 Normal 0-2 [facility] Comment on above: Performed By: #### 1 [id number] ####[facility] [address] [place] [address] Glucose Test strip (U) [Mass/Vol] Negative Normal Negative [facility] Comment on above: Performed By: #### 1 [id number] ####[facility] [address] [place] [address] Hemoglobin Ql (U) Negative Normal Negative [facility] Comment on above: Performed By: #### 1 [id number] ####[facility] [address] [place] [address] Ketones (U) [Mass/Vol] Negative Normal Negative [facility] Comment on above: Performed By: #### 1 [id number] ####[facility] [address] [place] [address] [place].plasma/Lithiu m.RBC (Bld) [Mass ratio] 0-3 Normal 0-3 [facility] Comment on above: Performed By: #### 1 [id number] ####[facility] [address] [place] [address] Nitrite Ql (U) Negative Normal Negative [facility] Comment on above: Performed By: #### 1 [id number] ####[place] [id number] pH (U) 6.5 [pH] Invalid Interpretation Code 5.0-9.0 [facility] Comment on above: Performed By: #### 1 [id number] ####[address] [address] Protein (U) [Mass/Vol] Negative Normal Negative [facility] Comment on above: Performed By: #### 1 [id number] ####[place] [address] Specific gravity (U) [Rel density] <=1.005 Invalid Interpretation Code 1.005-1.030 [facility] Comment on above: Performed By: #### 1 [id number] ####[address] [address] Type of Urine collection method Clean Catch Normal [facility] Comment on above: Performed By: #### 1 [id number] ####[place] [address] Urobilinogen Qn (U) 0.2 {Malu'U}/dL Normal 0.0-1.0 [facility] Comment on above: Performed By: #### 1 [id number] ####[address] [address] WBC Auto Ql (U) TRACE Abnormal Negative [facility] Comment on above: Performed By: #### 1 [id number] ####[address] [address] WBC LM.HPF (Urine sed) [#/Area] 0-5 Normal 0-5 [facility] Comment on above: Performed By: #### 1 [id number] ####[address] [address] URINALYSISOrdered By: Katerina Parker on 07-26-2022 Bacteria [...] [#/Area] 3-4 /HPF Normal 0-2/HPF [facility] UA Aut o SS Glucose Test strip (U) [Mass/Vol] Negative (07/26/22 4:49 PM) Normal Negative [facility] UA Auto SS Hemoglobin Ql (U) Negative (07/26/22 4:49 PM) Normal Negative [facility] UA Auto SS Ketones (U) [Mass/Vol] Negative (07/26/22 4:49 PM) Normal Negative [facility] UA Auto SS [place].plasma/Lithiu m.RBC (Bld) [Mass ratio] 0-3 /HPF Normal 0-3/HPF [...] [facility] UA Auto SS Urobilinogen Qn (U) 0.9683216 {Malu'U}/dL Normal 0.0 - 1.0 EU/dL [facility] UA Auto SS WBC Auto Ql (U) Trace *ABN* (07/26/22 4:49 PM) Invalid Interpretation Code Negative [facility] UA Auto SS WBC LM.HPF (Urine sed) [#/Area] 0-5 /HPF Normal 0-5/HPF [facility] UA Auto SS XR Chest Single Viewon 07-26 XR Chest Single View Normal [facility] eGFRon 07-26-2022 GFR/1.73 sq M.predicted among blacks MDRD (S/P/Bld) [Vol rate/Area] mL/min/{1.73_m2} Normal >=59 [facility] Comment on above: Order Comment: Order added by Discern Expert. Result Comment: eGFR is race adjusted. AA=. Performed By: #### 2 [id number], 1994310, 2908290, 9748511, [id number], [id number] ####[facility] [address] [place] [address] GFR/1.73 sq M.predicted among non-blacks MDRD (S/P/Bld) [Vol rate/Area] mL/min/{1.73_m2} Normal >=59 [facility] Comment on above: Order Comment: Order added by Discern Expert. Result Comment: Cotton Expert gina kidney disease could be indicated at eGFR's of less than 60 mL/min/1.73m2. Kidney failure is indicated at less than 15 mL/min/1.73m2. Performed By: #### 2 769724, 0111384, 4691030, 7992745, [id number], [id number] ####[facility] [address] [place] [address] SURGICAL PATH REPORTon 07-25 SURGICAL PATH REPORT [facility] Department of Pathology [address] [place] [id number] Name: LEELEE CEDILLO : 1950 [facility] [id number] Number: Gender Female [facility] : n: Admit 71 years Attending ADELE FLEMING Age: Provider: Ordering ADELE FLEMING Provider: Consulti Surgical Pathology Report ng: ACCESSION: COLLECTED DATE/TIME: RECEIVED DATE/TIME: PATHOLOGIST: [id number] 07/24/2022 12:16 EDT 07/24/2022 12:16 JAMEST MICHELINE STERN MD Final Diagnosis Report for [facility] [place], [place] RIGHT ANKLE, PUNCH BIOPSY: - FRAGMENT [...] MP:alexa 07/24/2022 Tissue pathology report for: [facility], [address] [place] [address]; ____ ____ Print 07/25/2022 15:48 EDT Number: Date/Time: [facility] Department of Pathology [address] [place] [id number] Name: LEELEE CEDILLO : 1950 [facility] [id number] Number: [facility] : n: Admit 71 years Attending ADELE FLEIMNG Age: Provider: Ordering ADELE FLEMING Provider: Consulti Surgical Pathology Report ng: ACCESSION: COLLECTED DATE/TIME: RECEIVED DATE/TIME: PATHOLOGIST: [id number] 07/24/2022 12:16 EDT 07/24/2022 12:16 EDT MICHELINE STERN MD Gross Description PATHOLOGY SERVICES PROVIDED BY [employer] (CLIA #[id number]) in cooperation with [facility] at [address] [place] [address] ( CLIA #[id number]) Microscopic Diagnosis The final diagnosis is based on a microscopic exam of jewelry sales representative sections. Codes CPT CODE: 01020 ____ ____ Print 07/25/2022 15:48 EDT Number: Date/Time: Normal [facility] Comment on above: Performed By: #### 9 [id number] #### [facility] Laboratory Services [address] [place] [id number] [employer] Fighter Pilot: Jared Oh MD POINT OF CARE GLUCOSEon Glucose [Mass/Vol] 114 mg/dL Critically high [address] [facility] Comment on above: Performed By: #### P OCGLUC #### [facility] Laboratory [address] [place] [address] [address] Salvador Yung Glucose [Mass/Vol] 112 mg/dL Critically high -106 [facility] Comment on above: Performed By: #### P OCGLUC #### [facility] [address] [place] [address] [address] Salvador Yung EMS Documentationon 07-21-19 23 EMS Documentation Normal [facility] Covid-19 PCR (CVDTB)on 06-20 SARS-CoV-2 (COVID-19) RNA VIVIANA+probe Ql (Unsp spec) Not detected Normal NOT DETECTED [facility] Comment on above: Result Comment: This test is not yet approved or cleared by the [place] FDA. When there are no FDA-approved or cleared tests available, and other criteria are met, FDA can make tests available under an emergency access mechanism called an Emergency Use Authorization (EUA). The EUA for this test is supported by the [employer] of Health and Human Service's (HHS's) declaration [...] SARS-CoV-2. Performed By: #### C VDTB #### [facility] [address] [place] [address] Dr. Salvador Yung PROF CHEM 8 (BAS METB)on Anion gap [Moles/Vol] 12.0 mmol/L Normal [facility] Comment on above: Performed By: #### B MP #### [facility] [address] [place] [address] Dr. Salvador Yung Calcium [Mass/Vol] 9.4 mg/dL Normal 8.5-10.1 [facility] Comment on above: Performed By: #### B MP #### [facility] [address] [place] [address] Dr. Salvador Yung Chloride [Moles/Vol] 100 mmol/L Normal 98-107 [facility] Comment on above: Performed By: #### B MP #### [facility] [address] [place] [address] Dr. Salvadro Yung CO2 [Moles/Vol] 29.8 mmol/L Normal 21.0-32.0 [facility] Comment on above: Performed By: #### B MP #### [facility] [address] [place] [address] Dr. Salvador Yung Creatinine [Mass/Vol] 0.91 mg/dL Normal 0.55-1.02 [facility] Comment on above: Performed By: #### B MP #### [facility] [address] [place] [address] Dr. Salvador Yung EGFR-AF KOSOVAN >60 Normal >=60 [facility] Comment on above: Performed By: #### B MP #### [facility] [address] [place] [address] Dr. Salvador Yung EGFR-NON AF KOSOVAN >60 Normal >=60 [facility] Comment on above: Performed By: #### B MP #### [facility] [address] [place] [address] [address] Salvador Yung Glucose [Mass/Vol] 82 mg/dL Normal 74-106 [facility] Comment on above: Performed By: #### B MP #### [facility] [address] [place] [address] [address] Salvador Yung Potassium [Moles/Vol] 3.8 mmol/L Normal 3.5-5.1 [facility] Comment on above: Performed By: #### B MP #### [facility] [address] [place] [address] [address] Salvador Yung Sodium [Moles/Vol] 138 mmol/L Normal 136-145 [facility] Comment on above: Performed By: #### B MP #### [facility] [address] [place] [address] [address] Salvador Yung Urea nitrogen [Mass/Vol] 12.0 mg/dL Normal 7.0-18.0 [facility] Comment on above: Performed By: #### B MP #### [facility] [address] [place] [address] [address] Salvador Yung Urea nitrogen/Creatinine [Mass ratio] 13.2 mg/mg Normal [facility] Comment on above: Performed By: #### B MP #### [facility] [address] [place] [address] [address] Salvador Yung VC INJ SCL JESSICA CHAIN MAKER MACHINE VEINSon 0 07-01-2022 VC INJ SCL JESSICA CHAIN MAKER MACHINE VEINS Patient: LEELEE CEDILLO Exam Date: 07/01/2022 : 1950 Gender:F Ordering : DR ALFRED UMAÑA M.D. Admission #: [id number] Family : Order #: [id number] CLICK HERE TO VIEW EXAM RADIOLOGY REPORT [...] Lobato M.D. on 07/01/2022 at 15:22 Normal [facility] VC CONSULT FOLLOWUPon 2022 VC CONSULT FOLLOWUP Patient: ITZEL CEDILLO Exam Date: 06/19/2022 : 1950 Gender:F Ordering : DR ALFRED UMAÑA M.D. Admission #: [id number] Family : Order #: [id number] CLICK HERE TO VIEW EXAM RADIOLOGY REPORT [...] Umaña MD on 06/19/2022 at 14:17 Normal [facility] VC EXT VENOUS LT LIMITEDon 0 3-02-2023 VC EXT VENOUS LT LIMITED Patient: LEELEE CEDILLO. Exam Date: 06/19/2022 : 1950 Gender:F Ordering : DR ALFRED UMAÑA M.D. Admission #: [id number] Family : Order #: [id number] CLICK HERE TO VIEW EXAM RADIOLOGY REPORT [...] Umaña MD on 06/19/2022 at 14:15 Normal [facility] VC INJ FOAM SCLERO W US MLTI on 06-13-2022 VC INJ FOAM SCLERO W US MLTI Patient: LEELEE CEDILLO Exam Date: 06/13/2022 : 1950 Gender:F Ordering : DR ALFRED UMAÑA M.D. Admission #: [id number] Family : Order #: [id number] CLICK HERE TO VIEW EXAM RADIOLOGY REPORT [...] duple (more content not included)... Normal [facility] VC CONSULT FOLLOWUPon 2022 VC CONSULT FOLLOWUP Patient: ITZEL CEDILLO Exam Date: 06/10/2022 : 1950 Gender:F Ordering : DR ALFRED UMAÑA M.D. Admission #: [id number] Family : Order #: [id number] CLICK HERE TO VIEW EXAM RADIOLOGY REPORT [...] Lobato M.D. on 06/10/2022 at 12:36 Normal [facility] VC EXT VENOUS RT LIMITEDon 0 06-10-2022 VC EXT VENOUS RT LIMITED Patient: LEELEE CEDILLO Exam Date: 06/10/2022 : 1950 Gender:F Ordering : DR ALFRED UMAÑA M.D. Admission #: [id number] Family : Order #: [id number] CLICK HERE TO VIEW EXAM RADIOLOGY REPORT [...] Lobato M.D. on 06/10/2022 at 12:33 Normal [facility] VC INJ FOAM SCLERO W US MLTI on 06-03-2022 VC INJ FOAM SCLERO W US MLTI Patient: LEELEE CEDILLO Exam Date: 06/03/2022 : 1950 Gender:F Ordering : DR ALFRED UMAÑA M.D. Admission #: [id number] Family : Order #: [id number] CLICK HERE TO VIEW EXAM RADIOLOGY REPORT PROCEDURE: VEIN CENTER INJECTION FOAM SCLEROSING SOLUTION WITH ULTRASOUND MULTIPLE VEINS COMPARISON: None. 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 Normal [facility] VC CONSULT FOLLOWUPon 2022 VC CONSULT FOLLOWUP Patient: ITZEL CEDILLOKimberlee Exam Date: 05/28/2022 : 1950 Gender:F Ordering : DR ALFRED UMAÑA M.D. Admission #: [id number] Family : Order #: [id number] CLICK HERE TO VIEW EXAM RADIOLOGY REPORT [...] the physical exam and consultation Dictated by: lAfred Umaña MD on 05/28/2022 at 11:42 Approved by: Alfred Umaña MD on 05/28/2022 at 11:44 Normal [facility] VC EXT VENOUS RT LIMITEDon 0 05-28-2022 VC EXT VENOUS RT LIMITED Patient: LEELEE CEDILLO Exam Date: 05/28/2022 : 1950 Gender:F Ordering : DR ALFRED UMAÑA M.D. Admission #: [id number] Family : Order #: [id number] CLICK HERE TO VIEW EXAM RADIOLOGY REPORT [...] extends to distal lower leg. Thrombus in chalk cutter distal medial lower leg 2.8 mm from [...] MD on 05/28/2022 at 11:30 Normal [facility] CBC AUTO DIFFon 05-21-2022 BASO # 0.1 103/ul Normal 0.0-0.1 [facility] Comment on above: Performed By: #### C BC #### [facility] [address] [place] [address] Dr. Salvador Yung Basophils/100 WBC (Bld) 0.6 % Normal 0.2-2.0 [facility] Comment on above: Performed By: #### C BC #### [facility] [address] [place] [address] Dr. Salvador Yung EO # 0.1 103/ul Normal 0.0-0.7 [facility] Comment on above: Performed By: #### C BC #### [facility] [address] [address] [address] Salvador Yung Eosinophils/100 WBC (Bld) 0.6 % Critically low 0.9-7.0 [facility] Comment on above: Performed By: #### C BC #### [facility] [address] [place] [address] Dr. Salvador Yung Erythrocyte distribution width (RBC) [Ratio] 12.4 % Normal 11.0-15.0 [facility] Comment on above: Performed By: #### C BC #### [facility] [address] [place] [address] Dr. Salvador Yung Hematocrit (Bld) [Volume fraction] 43.1 % Normal 36.0-48.0 [facility] Comment on above: Performed By: #### C BC #### [facility] [address] [place] [address] Dr. Salvador Yung Hemoglobin (Bld) [Mass/Vol] 13.8 g/dL Normal 12.0-16.0 [facility] Comment on above: Performed By: #### C BC #### [facility] [address] [place] [address] Dr. Salvador Yung IG # 0.06 10e3/ul Critically high 0.00-0.03 [facility] Comment on above: Performed By: #### C BC #### [facility] [address] [place] [address] Dr. Salvador Yung IG % 0.7 % Critically high 0.0-0.5 [facility] Comment on above: Performed By: #### C BC #### [facility] [address] [place] [address] Dr. Salvador Yung LYMPH # 1.7 103/ul Normal 1.2-3.8 [facility] Comment on above: Performed By: #### C BC #### [facility] [address] [place] [address] Dr. Salvador Yung Lymphocytes/100 WBC (Bld) 20.2 % Critically low 20.5-60.0 [facility] Comment on above: Performed By: #### C BC #### [facility] [address] [place] [address] Dr. Salvador Yung MANUAL DIFF REQ NO Normal [facility] Comment on above: Performed By: #### C BC #### [facility] [address] [place] [address] Dr. Salvador Yung MCH (RBC) [Entitic mass] 30.1 pg Normal 26.7-34.0 [facility] Comment on above: Performed By: #### C BC #### [facility] [address] [address] [address] Salvador Yung MCHC (RBC) [Mass/Vol] 32.0 g/dL Normal 29.9-35.2 [facility] Comment on above: Performed By: #### C BC #### [facility] [address] [address] [address] Salvador Yung MCV (RBC) [Entitic vol] 93.9 fL Normal 81.0-99.0 [facility] Comment on above: Performed By: #### C BC #### [facility] [address] [address] [address] Salvador Yung MONO # 0.5 103/ul Normal 0.3-0.8 [facility] Comment on above: Performed By: #### C BC #### [facility] [address] [place] [address] Dr. Salvador Yung Monocytes/100 WBC (Bld) 6.1 % Normal 1.7-12.0 [facility] Comment on above: Performed By: #### C BC #### [facility] [address] [place] [address] Dr. Salvador Yung NEUT # 6.1 103/ul Normal 1.4-6.5 [facility] Comment on above: Performed By: #### C BC #### [facility] [address] [place] [address] Dr. Salvador Yung Neutrophils/100 WBC (Bld) 71.8 % Normal 43.0-75.0 [facility] Comment on above: Performed By: #### C BC #### [facility] [address] [place] [address] Dr. Salvador Yung Platelet mean volume (Bld) [Entitic vol] 8.2 fL Critically low 9.5-13.5 [facility] Comment on above: Performed By: #### C BC #### [facility] [address] [place] [address] Dr. Salvador Yung PLT 246 103/ul Normal 150-450 [facility] Comment on above: Performed By: #### C BC #### [facility] [address] [address] [address] Salvador Yung RBC 4.59 106/ul Normal 4.20-5.40 [facility] Comment on above: Performed By: #### C BC #### [facility] [address] [address] [address] Salvador Yung WBC 8.5 103/ul Normal 4.0-11.0 [facility] Comment on above: Performed By: #### C BC #### [facility] [address] [address] [address] Salvador Yung FREE T3on 05-21-2022 FREE T3 2.14 pg/mlL Critically low 2.18-3.98 [facility] Comment on above: Performed By: #### P OCGLUC #### [facility] [address] [place] [address] Dr. Salvador Yung GLYCOHEMOGLOBIN A1Con 2022 ADA RECOMMENDATION SEE BELOW Normal [facility] Comment on above: Result Comment: ADA RECOMMENDED LIMIT 4.0 - 6.0 ADA THERAPEUTIC TARGET < 7.0 ACTION SUGGESTED > 7.0 Performed By: #### P OCGLUC #### [facility] [address] [place] [address] Dr. Salvador Yung Glucose [Mass/Vol] 100 mg/dL Normal [facility] Comment on above: Performed By: #### P OCGLUC #### [facility] [address] [place] [address] Dr. Salvador Yung HbA1c (Bld) [Mass fraction] 5.1 % Normal 4.5-6.2 [facility] Comment on above: Performed By: #### P OCGLUC #### [facility] [address] [place] [address] Dr. Salvador Yung LIPID PROFILEon 05-21-2022 CHOL-HDL RATIO NORM SEE BELOW Normal [facility] Comment on above: Result Comment: 3.3 - 4.4 LOW RISK 4.4 - 7.1 AVERAGE RISK 7.1 - 11.0 MODERATE RISK >11.0 HIGH RISK Performed By: #### P OCGLUC #### [facility] [address] [place] [address] Dr. Salvador Yung Cholesterol [Mass/Vol] 164 mg/dL Normal <=200 [facility] Comment on above: Performed By: #### P OCGLUC #### [facility] [address] [address] [address] Salvador Yung Cholesterol in HDL [Mass/Vol] 61 mg/dL Critically high 40-60 [facility] Comment on above: Performed By: #### P OCGLUC #### [facility] [address] [address] [address] Salvador Yung Cholesterol in LDL [Mass/Vol] 90.2 mg/dL Normal [facility] Comment on above: Performed By: #### P OCGLUC #### [facility] [address] [address] [address] Salvador Yung Cholesterol.total/Cho lesterol in HDL [Mass ratio] 2.7 {ratio} Normal [facility] Comment on above: Performed By: #### P OCGLUC #### [facility] [address] [address] [address] Salvador Yung HDL NORMAL > or = 60 mg/dl - LO W CARDIOVASCULAR RISK <40 mg/dl - HIGH CARDIOVASCULAR RISK Normal [facility] Comment on above: Performed By: #### P OCGLUC #### [facility] [address] [address] [address] Salvador Yung LDL CALC NORMAL SEE BELOW Normal [facility] Comment on above: Result Comment: <100 mg/dl OPTIMAL 100 - 129 mg/dl NEAR OR ABOVE OPTIMAL 130 - 159 mg/dl BORDERLINE HIGH 160 - 189 mg/dl HIGH >190 mg/dl VERY HIGH Performed By: #### P OCGLUC #### [facility] [address] [address] [address] Salvador Yung Triglyceride [Mass/Vol] 64 mg/dL Normal <=150 [facility] Comment on above: Performed By: #### P OCGLUC #### [facility] [address] [address] [address] Salvador Yung VLDL CALC 12.8 mg/dL Normal [facility] Comment on above: Performed By: #### P OCGLUC #### [facility] [address] [address] [address] Salvador Yung PROF 14(COMP METB)on 023 Albumin [Mass/Vol] 3.2 g/dL Critically low 3.4-5.0 [facility] Comment on above: Performed By: #### P OCGLUC #### [facility] [address] [place] [address] Dr. Salvador Yung Albumin/Globulin [Mass ratio] 0.7 {ratio} Normal [facility] Comment on above: Performed By: #### P OCGLUC #### [facility] [address] [place] [address] Dr. Salvador Yung ALP [Catalytic activity/Vol] 68 U/L Normal 46-116 [facility] Comment on above: Performed By: #### P OCGLUC #### [facility] [address] [place] [address] Dr. Salvador Yung ALT [Catalytic activity/Vol] 25 U/L Normal 14-59 [facility] Comment on above: Performed By: #### P OCGLUC #### [facility] [address] [place] [address] Dr. Salvador Yung Anion gap [Moles/Vol] 11.8 mmol/L Normal [facility] Comment on above: Performed By: #### P OCGLUC #### [facility] [address] [place] [address] Dr. Salvador Yung AST [Catalytic activity/Vol] 20 U/L Normal 15-37 [facility] Comment on above: Performed By: #### P OCGLUC #### [facility] [address] [place] [address] Dr. Salvador Yung Bilirubin [Mass/Vol] 0.5 mg/dL Normal 0.2-1.0 [facility] Comment on above: Performed By: #### P OCGLUC #### [facility] [address] [place] [address] Dr. Salvador Yung Calcium [Mass/Vol] 8.9 mg/dL Normal 8.5-10.1 [facility] Comment on above: Performed By: #### P OCGLUC #### [facility] [address] [address] [address] Salvador Yung Chloride [Moles/Vol] 105 mmol/L Normal 98-107 [facility] Comment on above: Performed By: #### P OCGLUC #### [facility] [address] [address] [address] Salvador Yung CO2 [Moles/Vol] 29.9 mmol/L Normal 21.0-32.0 [facility] Comment on above: Performed By: #### P OCGLUC #### [facility] [address] [address] [address] Salvador Yung Creatinine [Mass/Vol] 0.74 mg/dL Normal 0.55-1.02 [facility] Comment on above: Performed By: #### P OCGLUC #### [facility] [address] [address] [address] Salvador Yung EGFR-AF [place] >60 Normal >=60 [facility] Comment on above: Performed By: #### P OCGLUC #### [facility] [address] [address] [address] Salvador Yung EGFR-NON AF [place] >60 Normal >=60 [facility] Comment on above: Performed By: #### P OCGLUC #### [facility] [address] [address] [address] Salvador Yung Globulin (S) [Mass/Vol] 4.3 g/dL Normal [facility] Comment on above: Performed By: #### P OCGLUC #### [facility] [address] [address] [address] Salvador Yung Glucose [Mass/Vol] 88 mg/dL Normal 74-106 [facility] Comment on above: Performed By: #### P OCGLUC #### [facility] [address] [address] [address] Salvador Yung Potassium [Moles/Vol] 3.7 mmol/L Normal 3.5-5.1 [facility] Comment on above: Performed By: #### P OCGLUC #### [facility] [address] [address] [address] Salvador Yung Protein [Mass/Vol] 7.5 g/dL Normal 6.4-8.2 [facility] Comment on above: Performed By: #### P OCGLUC #### [facility] [address] [address] [address] Salvador Yung Sodium [Moles/Vol] 143 mmol/L Normal 136-145 [facility] Comment on above: Performed By: #### P OCGLUC #### [facility] [address] [address] [address] Salvador Yung Urea nitrogen [Mass/Vol] 11.0 mg/dL Normal 7.0-18.0 [facility] Comment on above: Performed By: #### P OCGLUC #### [facility] [address] [address] [address] Salvador Yung Urea nitrogen/Creatinine [Mass ratio] 14.9 mg/mg Normal [facility] Comment on above: Performed By: #### P OCGLUC #### [facility] [address] [address] [address] Salvador Yung T4on 05-21-2022 T4 [Mass/Vol] 11.60 ug/dL Normal 4.80-13.90 [facility] Comment on above: Performed By: #### P OCGLUC #### [facility] [address] [place] [address] Dr. Salvador Yung TSHon 05-21-2022 TSH 0.165 uIU/mL Critically low 0.358-3.740 [facility] Comment on above: Performed By: #### P OCGLUC #### [facility] [address] [address] [address] Salvador Yung VC ENDOVENOUS ABL 1ST V RTon 05-21-2022 VC ENDOVENOUS ABL 1ST V RT Patient: LEELEE CEDILLO Exam Date: 05/21/2022 : 1950 Gender:F Ordering : DR ALFRED UMAÑA M.D. Admission #: [id number] Family : Order #: [id number] CLICK HERE TO VIEW EXAM RADIOLOGY REPORT [...] Umaña MD on 05/21/2022 at 13:51 Normal [facility] VITAMIN D 25 OHon 05-21-2022 VIT D 25-OH 25.1 ng/mL Normal [facility] Comment on above: Performed By: #### V ITAD #### [facility] [address] [place] [address] Dr. Salvador Yung VIT D RANGES SEE BELOW [place] Comment on above: Result Comment: <20 ng/mL Vit D deficient 20 - <30 ng/mL Vit D insufficient 30 - 100 ng/mL Vit D sufficient >100 ng/mL Potential Toxicity Performed By: #### V ITAD #### [facility] [address] [place] [address] Dr. Salvador Yung XR HIP LT 2 [...] by: MARI LORENZO Date: 2022-05-21 16:26 Normal [facility] VC COMP CONSULTATIONon 05-01 VC COMP CONSULTATION Patient: REAGAN CEDILLO Exam Date: 05/01/2022 : 1950 Gender:F Ordering : DR. ADELE NailsAlaina. Admission #: [id number] Family : Order #: [id number] CLICK HERE [...] small saphenous vein, right lower extremity incompetent chalk cutter veins, and bilateral lower extremity incompetent branch [...] arterial disease 5. CEAP: C6, EC, AP, DC PLAN: 1. Continued use of compression stockings 2. Elevated legs and increased physical activity symptomatic relief 3. Endovenous laser ablation of right small saphenous vein and chalk cutter vein. 4. Microfoam chemical ablation of dilated, [...] Lobato M.D. on 05/01/2022 at 15:27 Normal [facility] VC VENOUS REFLUX SAMI LMTon 0 05-01-2022 VC VENOUS REFLUX SAMI LMT Patient: LEELEE CEDILLO Exam Date: 05/01/2022 : 1950 Gender:F Ordering : DR. ADELE FLEMING D.P.MKimberlee Admission #: [id number] Family : DR ALFRED UMAÑA M.D. Order #: [id number] CLICK HERE TO VIEW EXAM RADIOLOGY REPORT [...] chronic thrombus visualized Compressibility: Normal Flow: Normal Floor Runner: Dist/med calf 2.6mm with 0s reflux. Mid/med calf 3.5mm with 0s reflux. Tech Note: GSV has been previously stripped. Patent varicose vein mid/med calf 2.3mm with 0.5s reflux. Patent varicose vein prox/med calf 3.4mm with 1.2s reflux. Patent varicose vein dist/med thigh 5.4mm with 0.8s reflux. CONCLUSION: 1. Dilated, incompetent right small saphenous vein. 2. 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 3. Consultation for endovenous laser ablation is recommended. Dictated by: Julio Lobato M.D. on 05/01/2022 at 14:06 Approved by: Julio Lobato M.D. on 05/01/2022 at 14:28 [place] Coding Summary.on 03-11-2022 Coding Summary. Normal [facility] ED Traumaon 03-09-2022 ED Trauma [id number]#1. 00CD:127 [facility] Consent for Procedure/Surger yon 03-08-2022 Consent for Procedure/Surgery [id number]#1. 00CD:127 Normal [facility] Consent for Treatmenton 02-18 Consent for Treatment [id number]#1.0 0CD:127 [facility] Discharge Instructionson Discharge Instructions [id number]#1. 00CD:127 [facility] ED Clinical Summaryon 2021 ED Clinical Summary Normal [facility] ED Note-Physicianon 03-08-20 ED Note-Physician [facility] Comment on above: Result Comment: Elec tronically Signed By: Wm Nagy DO.br\Date and Time Signed: 03/08/22 21:11 EST ED Patient Education Noteon 03-08-2022 ED Patient Education Note Normal [facility] ED Patient Summaryon 022 ED Patient Summary [facility] EMS Documentationon 03-08-20 EMS Documentation Normal [facility] EMS Documentation Normal [facility] Monitor Recordon 03-08-2022 Monitor Record [id number]#1. 00CD:127 [facility] Monitor Record [id number]#1. 00CD:127 Normal [facility] Pre-Arrival Noteon 2 Pre-Arrival Note Normal [facility] Respiratory Therapy Noteson 03-08-2022 Respiratory Therapy Notes conscious sedation on Eaton, Leelee. Used co2 monitor and one liter of 02. patient maintained 38 co2 and 99 O2. Last approx 40 min. Normal [facility] XR Hip 2-3 Views Left + Pelv yasir 03-08-2022 XR Hip 2-3 Views Left + Pelvis Normal [facility] XR Hip 2-3 Views Left + Pelvis Normal [facility] BLEEDING TIMEon 03-06-2022 BLEEDING TIME 10.5 min Critically high 1.0-8.0 [facility] Comment on above: Performed By: #### B LTM #### [facility] [address] [place] [address] Dr. Salvador Yung CBC AUTO DIFFon 03-06-2022 BASO # 0.1 103/ul Normal 0.0-0.1 [facility] Comment on above: Performed By: #### C BC #### [facility] [address] [place] [address] Dr. Salvador Yung Basophils/100 WBC (Bld) 0.7 % Normal 0.2-2.0 [facility] Comment on above: Performed By: #### C BC #### [facility] [address] [place] [address] Dr. Salvador Yung EO # 0.1 103/ul Normal 0.0-0.7 [facility] Comment on above: Performed By: #### C BC #### [facility] [address] [place] [address] Dr. Salvador Yung Eosinophils/100 WBC (Bld) 0.7 % Critically low 0.9-7.0 [facility] Comment on above: Performed By: #### C BC #### [facility] [address] [place] [address] Dr. Salvador Yung Erythrocyte distribution width (RBC) [Ratio] 12.9 % Normal 11.0-15.0 [facility] Comment on above: Performed By: #### C BC #### [facility] [address] [place] [address] Dr. Salvador Yung Hematocrit (Bld) [Volume fraction] 41.3 % Normal 36.0-48.0 [facility] Comment on above: Performed By: #### C BC #### [facility] [address] [place] [address] Dr. Salvador Yung Hemoglobin (Bld) [Mass/Vol] 13.7 g/dL Normal 12.0-16.0 [facility] Comment on above: Performed By: #### C BC #### [facility] [address] [place] [address] Dr. Salvador Yung IG # 0.05 10e3/ul Critically high 0.00-0.03 [facility] Comment on above: Performed By: #### C BC #### [facility] [address] [place] [address] Dr. Salvador Yung IG % 0.7 % Critically high 0.0-0.5 [facility] Comment on above: Performed By: #### C BC #### [facility] [address] [place] [address] Dr. Salvador Yung LYMPH # 1.4 103/ul Normal 1.2-3.8 [facility] Comment on above: Performed By: #### C BC #### [facility] [address] [place] [address] Dr. Salvador Yung Lymphocytes/100 WBC (Bld) 18.9 % Critically low 20.5-60.0 [facility] Comment on above: Performed By: #### C BC #### [facility] [address] [place] [address] Dr. Savlador Yung MANUAL DIFF REQ NO Normal [facility] Comment on above: Performed By: #### C BC #### [facility] [address] [place] [address] Dr. Salvador Yung MCH (RBC) [Entitic mass] 30.3 pg Normal 26.7-34.0 [facility] Comment on above: Performed By: #### C BC #### [facility] [address] [place] [address] Dr. Salvador Yung MCHC (RBC) [Mass/Vol] 33.2 g/dL Normal 29.9-35.2 [facility] Comment on above: Performed By: #### C BC #### [facility] [address] [place] [address] Dr. Salvador Yung MCV (RBC) [Entitic vol] 91.4 fL Normal 81.0-99.0 [facility] Comment on above: Performed By: #### C BC #### [facility] [address] [place] [address] Dr. Salvador Yung MONO # 0.7 103/ul Normal 0.3-0.8 [facility] Comment on above: Performed By: #### C BC #### [facility] [address] [place] [address] Dr. Salvador Yung Monocytes/100 WBC (Bld) 9.9 % Normal 1.7-12.0 [facility] Comment on above: Performed By: #### C BC #### [facility] [address] [place] [address] Dr. Salvador Yung NEUT # 5.2 103/ul Normal 1.4-6.5 [facility] Comment on above: Performed By: #### C BC #### [facility] [address] [place] [address] Dr. Salvador Yung Neutrophils/100 WBC (Bld) 69.1 % Normal 43.0-75.0 [facility] Comment on above: Performed By: #### C BC #### [facility] [address] [place] [address] Dr. Salvador Yung Platelet mean volume (Bld) [Entitic vol] 7.9 fL Critically low 9.5-13.5 [facility] Comment on above: Performed By: #### C BC #### [facility] [address] [place] [address] Dr. Salvador Yung PLT 223 103/ul Normal 150-450 [facility] Comment on above: Performed By: #### C BC #### [facility] [address] [place] [address] Dr. Salvador Yung RBC 4.52 106/ul Normal 4.20-5.40 [facility] Comment on above: Performed By: #### C BC #### [facility] [address] [place] [address] Dr. Salvador Yung WBC 7.5 103/ul Normal 4.0-11.0 [facility] Comment on above: Performed By: #### C BC #### [facility] [address] [address] [address] Salvador Yung IRONon 03-06-2022 Iron [Mass/Vol] 83.0 ug/dL Normal 50.0-170.0 [facility] Comment on above: Performed By: #### I ESTEFANY #### [facility] [address] [place] [address] Dr. Salvador Yung PROTIMEon 03-06-2022 INR Coag (PPP) [Relative time] 0.95 {INR} Normal [facility] Comment on above: Performed By: #### P TT, PT #### [facility] [address] [place] [address] Dr. Salvador Yung INR GUIDELINES SEE BELOW Normal [facility] Comment on above: Result Comment: YOJANA RED INR: 2.0 - 3.0 CONDITIONS NOT LISTED BELOW 2.5 - 3.5 FOR PROSTHETIC HEART VALVE REPLACEMENT 2.5 - 3.5 RECURRENT THROMBOSIS Performed By: #### P TT, PT #### [facility] [address] [place] [address] Dr. Salvador Yung PT Coag (PPP) [Time] 10.3 s Normal 9.0-11.6 [facility] Comment on above: Performed By: #### P TT, PT #### [facility] [address] [place] [address] Dr. Salvador Yung PTTon 03-06-2022 aPTT Coag (Bld) [Time] 22.1 s Critically low 22.3-36.2 [facility] Comment on above: Performed By: #### P TT, PT #### [facility] [address] [place] [address] Dr. Salvador Yung SCREENING MAMMOGRAM W/DANIEL, BILATERAL*on [...] IS VERY IMPORTANT TO YOUR HEALTH. CURRENT [place] [employer] GUIDELINES RECOMMENDS ANNUAL MAMMOGRAPHY BEGINNING AT AGE 41. THIS FACILITY USUALLY USES A REMINDER SYSTEM TO ENSURE ALL POSITIONS RECEIVED REMINDER NOTIFICATIONS AT THE TIME BASED ON THE RECOMMENDATIONS OF THIS EXAM. Report reported and signed by Julio Martines on 02/28/2022 1602 Normal [facility] Specialist Covid-19 PCR (CVDTBH)on 12-19 SARS-CoV-2 (COVID-19) RNA VIVIANA+probe Ql (Unsp spec) Not detected Normal NOT DETECTED [facility] Comment on above: Result Comment: This test is not yet approved or cleared by the [place] FDA. When there are no FDA-approved or cleared tests available, and other criteria are met, FDA can make tests available under an emergency access mechanism called an Emergency Use Authorization (EUA). The EUA for this test is supported by the [employer] of Health and Human Service's (HHS's) declaration [...] SARS-CoV-2. Performed By: #### P OCGLUC #### [facility] [address] [place] [address] Dr. Salvador Yung MRI LSPINE WO CONon 12-11-19 MRI LSPINE WO CON [...] SARA LAUREN Date: 2021-12-10 12:11 Normal [facility] COVID-19 Positive/Negativeon 05-04-2020 COVID-19 Positive/Negative Negative Negative [facility] Comment on above: Testing for SARS-CoV -2 by RT-PCRThis test was developed and its performance characteristics determined by [employer] and validated at the [facility]. This test has not been FDA [...] Otheron 05-04-2020 Coronavirus 2019 PCR Interp N/A [facility] Automated basophil %on 04-24 Basophils/100 WBC (Bld) 0.6 % [facility] Automated basophil counton 0 04-24-2020 Basophils (Bld) [#/Vol] 0.0 10*3/uL 0.0-0.2 [facility] Automated blood lymphocyte c ount (number/volume)on 04-24-2020 Lymphocytes (Bld) [#/Vol] 1.0 10*3/uL 1.00-4.8 [facility] Automated blood lymphocyte c ount as percentage of total leukocyteson 04-24-2020 Lymphocytes/100 WBC (Bld) 17.0 % [facility] Automated blood monocyte cou nton 04-24-2020 Monocytes (Bld) [#/Vol] 0.3 10*3/uL 0.0-0.8 [facility] Automated blood platelet cou nt (count/volume)on 04-24-2020 Platelets (Bld) [#/Vol] 224 10*3/uL 150-450 [facility] Automated blood platelet vikki n volume measurementon 04-24-2020 Platelet mean volume (Bld) [Entitic vol] 7.2 fL 6.3-10.7 [facility] Automated eosinophil %on Eosinophils/100 WBC (Bld) 3.5 % [facility] Automated eosinophil counton 04-24-2020 Eosinophils (Bld) [#/Vol] 0.2 10*3/uL 0.0-0.45 [facility] Automated erythrocyte distri bution width ratioon 04-24-2020 Erythrocyte distribution width (RBC) [Ratio] 13.0 % 11.9-15.3 [facility] Automated erythrocyte mean c orpuscular hemoglobin (mass per erythrocyte)on 04-24-2020 MCH (RBC) [Entitic mass] 27.7 pg 24.7-34.3 [facility] Automated erythrocyte mean c orpuscular hemoglobin concentration measurement (mass/volon 04-24-2020 MCHC (RBC) [Mass/Vol] 33.2 g/dL 32.0-35.0 [facility] Automated erythrocyte mean c orpuscular volumeon 04-24-2020 MCV (RBC) [Entitic vol] 83.3 fL 80-100 [facility] Automated erythrocytes count in urine sediment (number/area)on 04-24-2020 RBC Auto (Urine sed) [#/Area] None seen [HPF] [facility] Automated leukocytes count i n urine sediment (number/area)on 04-24-2020 WBC Auto (Urine sed) [#/Area] 0-1 [HPF] [facility] Automated monocyte %on 04-24 Monocytes/100 WBC (Bld) 6.1 % [facility] Automated neutrophil %on Neutrophils/100 WBC (Bld) 72.8 % [facility] Automated urine color determ inationon 04-24-2020 Color (U) Yellow Yellow [facility] Blood erythrocytes automated count (number/volume)on 04-24-2020 RBC (Bld) [#/Vol] 4.50 10*6/uL 3.60-5.00 [facility] Blood hemoglobin measurement (mass/volume)on 04-24-2020 Hemoglobin (Bld) [Mass/Vol] 12.5 g/dL 11.8-15.4 [facility] Blood leukocytes automated c ount (number/volume)on 04-24-2020 WBC (Bld) [#/Vol] 5.7 10*3/uL 3.8-11.6 [facility] Blood neutrophil count by au tomated method (number/volume)on 04-24-2020 Neutrophils (Bld) [#/Vol] 4.2 10*3/uL 1.8-7.7 [facility] Estimated glomerular filtrat ion rate (GFR) non- Americanon 04-24-2020 GFR/1.73 sq M predicted among non-blacks MDRD (S/P/Bld) [Vol rate/Area] mL/min/{1.73_m2} [facility] Hematocrit [Volume Fraction] of Blood by Automated counton 04-24-2020 Hematocrit (Bld) [Volume fraction] 37.5 % 34.0-46.4 [facility] Otheron 04-24-2020 GFR/1.73 sq M.predicted MDRD (S/P/Bld) [Vol rate/Area] mL/min/{1.73_m2} [facility] Comment on above: GFR estimated refere nce range: According to KDOQI guidelines, <60 ml/min/1.73m2 is sufficient to diagnose a patient with chronic kidney disease. Nucleated RBC/100 WBC (Bld) [Ratio] 0.1 % 0-0.5 [facility] Creatinine Clearance (Chem N/A [facility] Serum or plasma calcium kelly urement (mass/volume)on 04-24-2020 Calcium [Mass/Vol] 9.3 mg/dL 8.2-10.2 [facility] Serum or plasma chloride vikki surement (moles/volume)on 04-24-2020 Chloride [Moles/Vol] 101 mmol/L 95-114 [facility] Serum or plasma creatinine m easurement with calculation of estimated glomerular filtron 04-24-2020 Creatinine [Mass/Vol] 0.88 mg/dL 0.44-1.03 [facility] Serum or plasma glucose klely urement (mass/volume)on 04-24-2020 Glucose [Mass/Vol] 116 mg/dL 70-100 [facility] Comment on above: ADA recommended refe rence rangeRandom Glucose Reference Range is dependent on time and content of last meal. Glucose of more than 200 mg/dL in a nonstressed, ambulatory subject supports the diagnosis of Diabetes Mellitus. Serum or plasma potassium me asurement (moles/volume)on 04-24-2020 Potassium [Moles/Vol] 3.8 mmol/L 3.5-5.1 [facility] Serum or plasma sodium measu rement (moles/volume)on 04-24-2020 Sodium [Moles/Vol] 136 mmol/L 136-146 [facility] Serum or plasma total carbon dioxide measurement (moles/volume)on 04-24-2020 CO2 [Moles/Vol] 23.1 mmol/L 22.0-30.0 [facility] Serum or plasma urea nitroge n measurement (mass/volume)on 04-24-2020 Urea nitrogen [Mass/Vol] 10 mg/dL 9-23 [facility] Specific gravity of Urine by Automated test stripon 04-24-2020 Specific gravity (U) [Rel density] 1.007 1.001-1.030 [facility] Squamous epithelial cells de tection in urine sediment by light microscopyon 04-24-2020 Epithelial cells.squamous LM Ql (Urine sed) None seen [HPF] [facility] Urinalysison 04-24-2020 Hyaline casts LM Ql (Urine sed) None seen [LPF] [facility] Urine bacteria detection by automated methodon 04-24-2020 Bacteria Auto Ql (U) None seen None Seen [facility] Urine clarity by refractomet ry automatedon 04-24-2020 Clarity Refractometry automated (U) Clear Clear [facility] Urine glucose measurement by automated test strip (mass/volume)on 04-24-2020 Glucose Auto test strip (U) [Mass/Vol] Normal mg/dL Normal [facility] Urine hemoglobin detection b y automated test stripon 04-24-2020 Hemoglobin Auto test strip Ql (U) Negative Negative [facility] Urine ketones measurement by automated test strip (mass/volume)on 04-24-2020 Ketones (U) [Mass/Vol] Negative Negative [facility] Urine leukocyte esterase det ection by automated test stripon 04-24-2020 Leukocyte esterase Auto test strip Ql (U) 1+ Negative [facility] Urine nitrite detection by t est stripon 04-24-2020 Nitrite Ql (U) Negative Negative [facility] Urine pH measurement by auto mated test stripon 04-24-2020 pH (U) 5.5 [pH] 5.0-9.0 [facility] Urine protein measurement by automated test strip (mass/volume)on 04-24-2020 Protein (U) [Mass/Vol] Negative Negative [facility] Urine total bilirubin detect ion by test stripon 04-24-2020 Bilirubin Ql (U) Negative Negative [facility] Urine urobilinogen measureme nt by automated test strip (mass/volume)on 04-24-2020 Urobilinogen (U) [Mass/Vol] Normal mg/dL Normal [facility] CT L-SPINE WO CONTRASTon CT L-SPINE WO CONTRAST Patient Name: LEELEE CEDILLO STUDY: CT L-SPINE WO CONTRAST;; 10/13/2018 12:05 pm INDICATION: Low back pain LUMBAGO. COMPARISON: None. ACCESSION NUMBER(S): [id number] ORDERING CLINICIAN: HAMLET GILMAN TECHNIQUE: Axial sections [...] combination with facet joint arthropathy noted causing onfe-cf-yalsqogm left neural foramina narrowing. Transpedicular screws of [...] left lateral recess, left neural foramina and wtwx-rr-dxlyhpci right neural foramina narrowing. IMPRESSION: Postoperative and [...] Electronically signed by: PATRICIA MURRAY MD Normal [facility] SPINE, ENTIRE THORACIC/LUMBA R, INCLUDE [...] pm INDICATION: LUMBAGO. COMPARISON: None ACCESSION NUMBER(S): [id number]; [id number] ORDERING CLINICIAN: HAMLET GILMAN FINDINGS: Long radiograph [...] Electronically signed by: ADELE BA MD Normal [facility] SPINE, LUMBOSACRAL; CMPLT(BE NDING)on 10-13-2018 SPINE, LUMBOSACRAL; CMPLT(BENDING) Patient Name: LEELEE CEDILLO STUDY: SPINE, ENTIRE THORACIC/LUMBAR, INCLUDE SKULL, CERVICAL ANSD SACRAL SPINE WHEN PERFORMED 2 OR 3 VIEW; SPINE, LUMBOSACRAL CMPLT(BENDING); 10/13/2018 12:05 pm INDICATION: LUMBAGO. COMPARISON: None ACCESSION NUMBER(S): [id number]; [id number] ORDERING CLINICIAN: HAMLET GILMAN FINDINGS: Long radiograph [...] Electronically signed by: ADELE BA MD Normal [facility] Vital Signs Date Time Vital Sign Value Performing Clinician Facility 06-24-2023 13:130500 Body height 172.7 cm Ghanshyam Lombardi MD Work Phone: [facility] 06-24-2023 13:13-0500 Body weight 87.4 kg Ghanshyam Lombardi MD Work Phone: [facility] 06-24-2023 13:13-0500 Diastolic blood pressure 56 mm[Hg] Ghanshyam Lombardi MD Work Phone: [facility] 06-24-2023 13:13-0500 Heart rate 93 /min Ghanshyam Lombardi MD Work Phone: [facility] 06-24-2023 13:13-0500 Respiratory rate 18 /min Ghanshyam Lombardi MD Work Phone: [facility] 06-24-2023 13:13-0500 SaO2% (BldA) [Mass fraction] 97 % Ghanshyam Lombardi MD Work Phone: [facility] 06-24-2023 13:13-0500 Systolic blood pressure 115 mm[Hg] Ghanshyam Lombardi MD Work Phone: [facility] 05-15-2023 09:00-0500 Body weight 90.18 kg Larry Stephanie Other [facility] Other 05-15-2023 09:00-0500 Diastolic blood pressure 86 mm[Hg] Larryrandy Brown Other [facility] Other 05-15-2023 09:00-0500 SaO2% (BldA) [Mass fraction] 99 % Larry Carrilloky Other [facility] Other 05-15-2023 09:00-0500 Systolic blood pressure 148 mm[Hg] Larry Stephanie Other [facility] Other 05-13-2023 11:15-0500 Body height 175.26 cm Kiran Kessler Other [facility] Other 05-13-2023 11:15-0500 Body mass index (BMI) [Ratio] 29.24 kg/m2 Kiran Kessler Other [facility] Other 05-13-2023 11:15-0500 Body temperature 96.9 [degF] Kiran Kessler Other [facility] Other 05-13-2023 11:15-0500 Body weight 89.81 kg Kiran Kessler Other [facility] Other 05-13-2023 11:15-0500 Diastolic blood pressure 80 mm[Hg] Kiran Kessler Other [facility] Other 05-13-2023 11:15-0500 SaO2% (BldA) [Mass fraction] 99 % Kiran Kessler Other [facility] Other 05-13-2023 11:15-0500 Systolic blood pressure 140 mm[Hg] Kiran Kessler Other [facility] Other 04-03-2023 10:15-0500 Body height 175.26 cm Larry Brown Other [facility] Other 04-03-2023 10:15-0500 Diastolic blood pressure 74 mm[Hg] Larry Brown Other [facility] Other 04-03-2023 10:15-0500 SaO2% (BldA) [Mass fraction] 99 % Larry Brown Other [facility] Other 04-03-2023 10:15-0500 Systolic blood pressure 118 mm[Hg] Larry Brown Other [facility] Other 03-25-2023 11:05-0500 Diastolic blood pressure 75 mm[Hg] MD Sara Vick Work Phone: [facility] 03-25-2023 11:05-0500 Heart rate 72 /min MD Sara Vick Work Phone: [facility] 03-25-2023 11:05-0500 Respiratory rate 18 /min MD Sara Vick Work Phone: [facility] 03-25-2023 11:05-0500 SaO2% (BldA) [Mass fraction] 97 % MD Sara Vick Work Phone: [facility] 03-25-2023 11:05-0500 Systolic blood pressure 146 mm[Hg] MD Sara Vick Work Phone: [facility] 03-25-2023 10:27-0500 Inhaled oxygen flow rate 3 L/min MD Sara Vick Work Phone: [facility] 03-25-2023 10:14-0500 Body height 173.99 cm MD Sara Vick Work Phone: [facility] 03-25-2023 10:14-0500 Body weight 88.45 kg MD Sara Vick Work Phone: [facility] 01-27-2023 14:30-0400 Body height 175.26 cm Dominique Shane Other [facility] Other 01-27-2023 14:30-0400 Diastolic blood pressure 70 mm[Hg] Dominique Shane Other [facility] Other 01-27-2023 14:30-0400 SaO2% (BldA) [Mass fraction] 98 % Dominique Shane Other [facility] Other 01-27-2023 14:30-0400 Systolic blood pressure 118 mm[Hg] Dominique Shane Other [facility] Other 01-09-2023 10:15-0400 Body height 175.26 cm Larry Brown Other [facility] Other 01-09-2023 10:15-0400 Body mass index (BMI) [Ratio] 29.56 kg/m2 Larry Brown Other [facility] Other 01-09-2023 10:15-0400 Body weight 90.81 kg Larry Brown Other [facility] Other 01-09-2023 10:15-0400 Diastolic blood pressure 78 mm[Hg] Larry Brown Other [facility] Other 01-09-2023 10:15-0400 SaO2% (BldA) [Mass fraction] 98 % Larry Brown Other [facility] Other 01-09-2023 10:15-0400 Systolic blood pressure 130 mm[Hg] Larry Brown Other [facility] Other 12-12-2022 09:30-0400 Body height 175.26 cm Larry Brown Other [facility] Other 12-12-2022 09:30-0400 Body mass index (BMI) [Ratio] 29.77 kg/m2 Larry Brown Other [facility] Other 12-12-2022 09:30-0400 Body weight 91.45 kg Larry Brown Other [facility] Other 12-12-2022 09:30-0400 Diastolic blood pressure 74 mm[Hg] Larry Brown Other [facility] Other 12-12-2022 09:30-0400 SaO2% (BldA) [Mass fraction] 99 % Larry Brown Other [facility] Other 12-12-2022 09:30-0400 Systolic blood pressure 122 mm[Hg] Larry Brown Other [facility] Other 09-19-2022 12:00-0400 Body height 175.26 cm Larry Brown Other [facility] Other 09-19-2022 12:00-0400 Body mass index (BMI) [Ratio] 30.8 kg/m2 Larry Brown Other [facility] Other 09-19-2022 12:00-0400 Body weight 94.62 kg Larry Brown Other [facility] Other 09-19-2022 12:00-0400 SaO2% (BldA) [Mass fraction] 95 % Larry Brown Other [employer] Other 09-18-2022 10:40-0400 Body height 172.7 cm Perfecto Burch MD Work Phone: [facility] 09-18-2022 10:40-0400 Body mass index (BMI) [Ratio] 31.26 kg/m2 Perfecto Burch MD Work Phone: [facility] 09-18-2022 10:40-0400 Body temperature 96.4 [degF] Perfecto Burch MD Work Phone: [facility] 09-18-2022 10:40-0400 Body weight 93.26 kg Perfecto Burch MD Work Phone: [facility] 07-27-2022 15:38-0400 Hourly Rounding Francisco Ottoniel [facility] 07-27-2022 15:38-0400 Promise to Return Francisco Ottoniel [facility] 07-27-2022 14:38-0400 Hourly Rounding Francisco Ottoniel [facility] 07-27-2022 14:38-0400 Promise to Return Francisco Ottoniel [facility] 07-27-2022 13:38-0400 Hourly Rounding Francisco Ottoniel [facility] 07-27-2022 13:38-0400 Promise to Return Francisco Ottoniel [facility] 07-27-2022 12:08-0400 Heart rate 106 /min Francisco Ottoniel [facility] 07-27-2022 12:08-0400 SaO2% (BldA) [Mass fraction] 100 % Francicso Ottoniel [facility] 07-27-2022 12:07-0400 Diastolic blood pressure 79 mm[Hg] Francisco Ottoniel [facility] 07-27-2022 12:07-0400 Mean blood pressure 103 mm[Hg] Francisco Ottoniel [facility] 07-27-2022 12:07-0400 Systolic blood pressure 151 mm[Hg] Francisco Ottoniel [facility] 07-27-2022 12:06-0400 Body temperature 97.16 [degF] Francisco Ottoniel [facility] 07-27-2022 07:46-0400 Heart rate 82 /min Francisco Ottoniel [facility] 07-27-2022 07:46-0400 SaO2% (BldA) [Mass fraction] 97 % Francisco Ottoniel [facility] 07-27-2022 07:46-0400 Diastolic blood pressure 81 mm[Hg] Francisco Ottoniel [facility] 07-27-2022 07:46-0400 Mean blood pressure 116 mm[Hg] Francisco Ottoniel [facility] 07-27-2022 07:46-0400 Systolic blood pressure 186 mm[Hg] Francisco Ottoniel [facility] 07-27-2022 07:45-0400 Body temperature 97.52 [degF] Francisco Ottoniel [facility] 07-27-2022 01:46-0400 Heart rate 89 /min Francisco Ottoniel [facility] 07-27-2022 01:46-0400 SaO2% (BldA) [Mass fraction] 96 % Francisco Ottoniel [facility] 07-27-2022 01:45-0400 Diastolic blood pressure 67 mm[Hg] Francisco Ottoniel [facility] 07-27-2022 01:45-0400 Mean blood pressure 89 mm[Hg] Francisco Ottoniel [facility] 07-27-2022 01:45-0400 Systolic blood pressure 134 mm[Hg] Francisco Ottoniel [facility] 07-27-2022 01:45-0400 Body temperature 98.06 [degF] Francisco Ottoniel [facility] 07-27-2022 01:45-0400 Blood Pressure Location Francisco Ottoniel [facility] 07-27-2022 01:45-0400 Respiratory rate 18 /min Francisco Ottoniel [facility] 07-26-2022 20:00-0400 Respiratory rate 16 /min Francisco Ottoniel [facility] 07-26-2022 17:20-0400 Blood Pressure Location Francisco Ottoniel [facility] 07-26-2022 17:20-0400 Heart rate 78 /min Francisco Ottoniel [facility] 07-26-2022 15:30-0400 Respiratory rate 12 /min Francisco Ottoniel [facility] 07-26-2022 15:00-0400 Mean blood pressure 122 mm[Hg] Francisco Ottoniel [facility] 07-26-2022 15:00-0400 Respiratory rate 8 /min Francisco Ottoniel [facility] 07-26-2022 14:30-0400 Mean blood pressure 112 mm[Hg] Francisco Ottoniel [facility] 07-26-2022 14:30-0400 Respiratory rate 12 /min Francisco Ottoniel [facility] 07-26-2022 13:30-0400 Mean blood pressure 95 mm[Hg] Francisco Ottoniel [facility] 07-26-2022 11:35-0400 gluc 105 mg/dL Francisco Ottoniel [facility] 07-26-2022 11:35-0400 gluc Francisco Ottoniel [facility] 07-26-2022 11:35-0400 Heart rate 72 /min Francisco Ottoniel [facility] 07-26-2022 11:35-0400 Respiratory rate 18 /min Francisco Ottoniel [facility] 05-02-2022 10:00-0500 Body height 175.26 cm Larry Brown Other [facility] Other 05-02-2022 10:00-0500 Body mass index (BMI) [Ratio] 31.89 kg/m2 Larry Carrilloky Other [facility] Other 05-02-2022 10:00-0500 Body weight 97.98 kg Larry Carrilloky Other [facility] Other 05-02-2022 10:00-0500 Diastolic blood pressure 80 mm[Hg] Larry Brown Other [facility] Other 05-02-2022 10:00-0500 Systolic blood pressure 134 mm[Hg] Larry Brown Other [facility] Other 03-08-2022 17:00-0500 Diastolic blood pressure 117 mm[Hg] Wm Yakov [facility] 03-08-2022 17:00-0500 Mean blood pressure 131 mm[Hg] Wm Yakov [facility] 03-08-2022 17:00-0500 SaO2% (BldA) [Mass fraction] 95 % Wm Yakov [facility] 03-08-2022 17:00-0500 Systolic blood pressure 160 mm[Hg] Wm Yakov [facility] 03-08-2022 16:30-0500 Diastolic blood pressure 85 mm[Hg] Wm Yakov [facility] 03-08-2022 16:30-0500 Heart rate 75 /min Wm Yakov [facility] 03-08-2022 16:30-0500 Mean blood pressure 94 mm[Hg] Wm Yakov [facility] 03-08-2022 16:30-0500 Respiratory rate 15 /min Wm Yakov [facility] 03-08-2022 16:30-0500 SaO2% (BldA) [Mass fraction] 98 % Wm Yakov [facility] 03-08-2022 16:30-0500 Systolic blood pressure 112 mm[Hg] Wm Yakov [facility] 03-08-2022 16:10-0500 Diastolic blood pressure 74 mm[Hg] Wm Yakov [facility] 03-08-2022 16:10-0500 Heart rate 93 /min Wm Yakov [facility] 03-08-2022 16:10-0500 Mean blood pressure 90 mm[Hg] Wm Yakov [facility] 03-08-2022 16:10-0500 Respiratory rate 14 /min Wm Yakov [facility] 03-08-2022 16:10-0500 SaO2% (BldA) [Mass fraction] 98 % Wm Yakov [facility] 03-08-2022 16:10-0500 Systolic blood pressure 122 mm[Hg] Wm Yakov [facility] 03-08-2022 15:15-0500 Respiratory rate 18 /min Wm Yakov [facility] 03-08-2022 15:00-0500 Hourly Rounding Wm Yakov [facility] 03-08-2022 15:00-0500 Promise to Return Wm Yakov [facility] 03-08-2022 14:45-0500 Respiratory rate 20 /min Wm Yakov [facility] 03-08-2022 14:15-0500 Respiratory rate 20 /min Wm Yakov [facility] 03-08-2022 14:14-0500 Hourly Rounding Wm Yakov [facility] 03-08-2022 14:14-0500 Promise to Return Wm Yakov [facility] 03-08-2022 13:54-0500 Heart rate 99 /min Wm Nagy [facility] 03-08-2022 13:37-0500 Body temperature 97.7 [degF] Wm Nagy [facility] 03-08-2022 13:37-0500 Heart rate 104 /min Wm Nagy [facility] 03-08-2022 13:00-0500 Hourly Rounding Wm Nagy [facility] 03-08-2022 13:00-0500 Promise to Return Wm Nagy [facility] 03-07-2022 11:00-0500 Body height 175.26 cm Larry Stephanie Other [facility] Other 03-07-2022 11:00-0500 Body mass index (BMI) [Ratio] 32.54 kg/m2 Larry Carrilloky Other [facility] Other 03-07-2022 11:00-0500 Body weight 99.97 kg Larry Stephanie Other [facility] Other 03-07-2022 11:00-0500 SaO2% (BldA) [Mass fraction] 99 % Larry Stephanie Other [facility] Other 06-20-2017 09:19-0500 PAIN LEVEL 0 {score} Praveen Bynum 06-20-2017 06:29-0500 PAIN LEVEL 0 {score} Praveen Bynum 06-20-2017 06:25-0500 PAIN LEVEL 6 {score} Praveen Carlsona 06-20-2017 06:21-0500 Body Temperature 98.1 [degF] Praveen [...] 06-19-2017 15:43-0500 BP Diastolic 74 mm[Hg] Praveen Carlsona 06-19-2017 15:43-0500 BP Systolic 140 mm[Hg] Praveen Carlsona 06-19-2017 15:43-0500 Pulse (Heart Rate) 88 /min [...] Date Encounter Type Care Provider Facility Start: 06-24-2023 End: 06-24-2023 ambulatory SARA VICK Facility: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); Chronic bilateral low back pain with bilateral sciatica Start: 06-24-2023 End: 06-24-2023 Subsequent hospital visit by physician [facility] Comment on above: 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] Start: 05-22-2023 End: 05-22-2023 ambulatory Sara Vick Facility:[facility] Start: 05-22-2023 End: 05-22-2023 ambulatory MD Sara Vick Work Phone: [facility] Work Phone: Start: 05-22-2023 End: 05-22-2023 Patient encounter procedure MD Sara Vick Work Phone: [facility] [place] Work Phone: Start: 05-20-2023 End: 05-20-2023 ambulatory Sara Vick Facility:[facility] Start: 05-20-2023 Registered Recurring MD Gideon Vick Work Phone: [facility] Supervisor [facility] Start: 05-15-2023 End: 05-15-2023 ambulatory Larry Brown Other [employer] Other Start: 05-15-2023 Office outpatient vi sit 25 minutes Larry Brown [facility] Start: 05-13-2023 End: 05-13-2023 ambulatory Kiran Kessler Other [facility] Other Start: 05-13-2023 Office outpatient ne w 60 minutes Kiran Kessler [facility] Start: 04-16-2023 End: 04-16-2023 ambulatory Dominique Shane Other [facility] Other Start: 04-16-2023 Telephone encounter Dominique Shane [facility] Start: 04-03-2023 End: 04-03-2023 ambulatory Larry Brown Other [facility] Other Start: 04-03-2023 Office outpatient vi sit 15 minutes Larry Brown [facility] Start: 04-03-2023 End: 04-03-2023 Patient encounter procedure MD Sara Vick Work Phone: [facility] Work Phone: Start: 03-25-2023 (PROC) PROCEDURE Larry Brown [facility] Start: 03-25-2023 End: 03-25-2023 ambulatory Sara Vick Facility:[facility] Start: 03-25-2023 End: 03-25-2023 Admission to same day surgery center MD Sara Vick Work Phone: [facility] Work Phone: Start: 03-25-2023 End: 03-25-2023 ambulatory MD Sara Vick Work Phone: [facility] Work Phone: Start: 03-06-2023 End: 03-06-2023 Patient encounter procedure MD Sara Vick Work Phone: [facility] Work Phone: Start: 02-10-2023 End: 02-10-2023 ambulatory Dominique Shane Other [facility] Other Start: 02-10-2023 Telephone encounter Dominique Shane [facility] Start: 01-27-2023 End: 01-27-2023 ambulatory Dominique Shane Other [facility] Other Start: 01-27-2023 Office outpatient vi sit 25 minutes Dominique Shane [facility] Start: 01-27-2023 Telephone encounter Larry Brown [facility] Start: 01-09-2023 End: 01-09-2023 ambulatory Larry Stephanie Other [facility] Other Start: 01-09-2023 Office outpatient vi sit 25 minutes Larry Stephanie [facility] Start: 12-12-2022 End: 12-12-2022 ambulatory Larry Stephanie Other [facility] Other Start: 12-12-2022 Office outpatient vi sit 25 minutes Larry Stephanie [facility] Start: 11-22-2022 End: 11-22-2022 Emergency department patient visit Flavio Castillo Facility[place] Start: 09-19-2022 End: 09-19-2022 ambulatory Larry Stephanie Other [employer] Other Start: 09-19-2022 Office outpatient vi sit 25 minutes Larry Stephanie [facility] Start: 09-18-2022 ambulatory PERFECTO BURCH [facility] Start: 09-18-2022 End: 09-18-2022 Office outpatient new 30 minutes Perfecto Burch MD Work Phone: [facility] Comment on above: 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, sequela (Primary Dx) Start: 09-18-2022 End: 09-18-2022 Subsequent hospital visit by physician Perfecto Burch MD Work Phone: [facility]iology Start: 09-17-2022 ambulatory ADELE FLEMING Faci lity:H1 Start: 09-10-2022 End: 09-10-2022 ambulatory Larry Ebony Brown Facility:[facility] Start: 09-09-2022 End: 09-10-2022 ambulatory ADELE FLEMING Facility: Start: 09-08-2022 End: 09-09-2022 ambulatory Alley Naranjo Facility[place] Start: 08-18-2022 End: 08-19-2022 ambulatory ADELE FLEMING Facility:[facility]1 Start: 08-13-2022 ambulatory [facility] Start: 08-12-2022 End: 08-13-2022 ambulatory ADELE FLEMING Facility:[facility]1 Start: 08-08-2022 End: 08-09-[address] ALFRED UMAÑA Facility:H1 Start: 08-01-2022 End: 08-02-2022 ambulatory ADELE FLEMING Facility:[facility]1 Start: 07-26-2022 End: 07-27-2022 ambulatory Julio Ferrara Facility:[facility] Start: 07-26-2022 End: 07-27-2022 Observation Francisco S Ottoniel [facility] Start: 07-25-2022 Encounter for preprocedural cardiovascular examination [facility] Clary [facility] Start: 07-25-2022 Encounter for preprocedural laboratory examination [facility] Clary [facility] Start: 07-24-2022 End: 07-25-2022 ambulatory ADELE FLEMING Facility:[facility] Start: 07-24-2022 End: 07-24-2022 ambulatory ADELE FLEMING [...] Start: 06-19-2022 End: 06-19-2022 ambulatory Sara Vick Facility:[facility] Start: 06-19-2022 End: 06-19-2022 ambulatory MD Sara Vick Work Phone: [facility] Work Phone: Start: 06-19-2022 End: 06-19-2022 Discharged Recurring MD Sara Vick Work Phone: [facility] Work Phone: Start: [...] 05-02-2022 End: 05-02-2022 ambulatory Larry Brown Other [employer] Other Start: 05-02-2022 Office outpatient vi sit 25 minutes Larry Brown [facility] [place] Start: 05-01-2022 End: 05-02-2022 ambulatory ADELE FLEMING Facility:[facility]1 Start: 04-22-2022 End: 04-23-2022 ambulatory ADELE FLEMING Facility:[facility] Start: 04-14-2022 End: 04-15-2022 ambulatory DEEPALI JANSEN Facility:[facility]1 Start: 04-08-2022 (PROC) PROCEDURE Larry Kebede [place] Start: 04-08-2022 End: 04-08-2022 ambulatory Larry Brown Other [employer] Other Start: 03-31-2022 End: 04-01-[address] ALFRED UMAÑA Facility: Start: 03-08-2022 End: 03-08-2022 Emergency department patient visit Wm Nagy Facility:[facility] Start: 03-08-2022 End: 03-08-2022 Emergency department patient visit Wm Nagy [facility] Start: 03-07-2022 End: 03-07-2022 ambulatory Larry Brown Other [facility] [employer] Other Start: 03-07-2022 Office consultation new/estab patient 60 min Larry Brown [facility] [place] Start: 03-06-2022 End: 03-07-[address] SARA VICK . Facility: Start: 01-03-2022 End: 01-03-[address] SARA VICK . Facility: Start: 12-09-2021 End: 12-10-2021 ambulatory SHAWANDA LITTLE Facility: Start: 11-05-2021 End: 11-06-2021 ambulatory ADELE FLEMING Facility: Start: 10-07-2021 End: 10-07-2021 ambulatory PO SUAREZ . Facility: Start: 05-04-2020 End: 05-04-2020 Patient encounter procedure Sara Hoy -Pre-Surgical Testing Start: 05-02-2020 Registered Recurring Sara Vick -P hysical Therapy [place] Start: 04-24-2020 End: 04-24-2020 Patient encounter procedure Sara Hoy -Pre-Surgical Testing Start: 02-01-2020 End: 02-01-2020 Patient encounter procedure Sara Hoy -XRay [facility] Start: 06-29-2018 Patient encounter procedure Sara~[id number] EMILY Tayy Facility:[facility] Start: 12-11-2017 End: 12-12-2017 Patient encounter DEFAULT PHYSICIAN Facility:[facility] Procedures Date Procedure Procedure Detail Performing Clinician Start: 06-24-2023 End: 06-24-2023 Radex spine lumbosacral minimum 4 views Ros Cedeño APRN.[employer]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 Work Phone: Start: 03-25-2023 Local anesthetic sac ral epidural block MD Sara Vick Work Phone: Start: 02-01-2020 Plain X-ray of femur Do karan Nicanor Start: 02-01-2020 X-ray of right knee Juliet penelope Vick Start: 05-11-2017 Injection of sacroil iac joint using fluoroscopic guidance Wm Yakov Comment on above: left ~ 80 % relief d ay 3 X2 weeks , pain starting to increase Start: 03-09-2017 Transforaminal Epidu ral Steroid Injection 2 Wm [employer] Comment on above: Bilateral L3- 50% re lief starting one week after procedure Start: 02-02-2017 Transforminal epidur al steroid injection 3 [employer] Comment on above: Left L3, L4 40% reli ef for couple weeks Start: 02-09-2014 Dilation and curetta ge of uterus Wm Yakov Start: 07-25-2013 lumbar fusion L4-5 Joyce zeng [employer] Start: 06-20-2013 Epidural injection o f lumbar spine using fluoroscopic guidance Daric Comment on above: L4-5 70-80% relief a nd lasted 1.5 weeks Start: 04-28-2013 Epidural injection o f lumbar spine using fluoroscopic guidance Wm J. Hilburn Comment on above: L5-S1 50% relief Start: 02-21-2013 Injection of facet j oint using fluoroscopic guidance [employer] Comment on above: bilateral L3-S1 FJI 50% relief Start: 01-21-2013 Injection of facet j oint using fluoroscopic guidance Daric Comment on above: bilateral L3-S1 FJI 0% relief that day, next day 40% relief and 50-60% relief Start: 01-03-2013 Epidural injection o f lumbar spine using fluoroscopic guidance Daric Comment on above: L5-S1 50% relief Start: 09-02-2012 Epidural injection o f lumbar spine using fluoroscopic guidance Wm Nagy Comment on above: L5-S1 left,, no reli ef, increased pain Start: 07-01-2011 History of repair of musculotendinous cuff of shoulder Status post rotator cuff surgery, right Ghanshyam Lombardi MD Work Phone: Start: 04-20-2011 Excision of ganglion cyst Wm Yakov Start: 07-03-2010 Decompression of med marcus nerve Wm Nagy Start: 07-03-2010 Repair of musculoten dinous cuff of shoulder Wmkeshawn Nagy Start: 04-20-2007 Cholecystectomy Wm Frida lara foot surgery right x3 Wm Yakov left GLORIA Wmkeshawn Nagy Ligation of fallopian tube K josep Nagy Lumbar and lumbosacr al fusion by posterior technique Wm Yakov Comment on above: [address] Gilman, cleaned infection out 2nd surgery, infection spread removal of rib and higher fusion (3rd surgery) right knee scope wit h partial meniscectomy Wm Nagy Plan of Treatment Date Care Activity Detail Author Start: 06-23-2024 BP Controlled (<130/80) BP Controlled (<130/80) [facility] Start: 05-22-2023 Pulse volume recorder pneumoplethysmography US arterial pvr rest LE [facility] Start: 05-22-2023 [facility] Start: 05-22-2023 Duplex scan of lower limb veins US venous duplex LE BI [facility] Start: 05-22-2023 US Lower extremity vein - bilateral [facility] Start: 04-20-2023 Advance Directive Discussion Advance Directive Discussion [facility] Start: 04-20-2023 Depression Assessment Depression Assessment [facility] Start: 03-25-2023 [facility] Start: 11-11-2023 Screening for malignant neoplasm of breast Mammogram Screening [facility] Start: 12-19-2022 Covid-19 Vaccine ( season) Covid-19 Vaccine ( season) [facility] Start: 12-19-2022 Influenza vaccination Influenza Vaccine (#1) [facility] Start: 01-28-2022 COVID-19 VACCINE (5 - Booster for Pfizer series) COVID-19 VACCINE (5 - Booster for Pfizer series) [facility] Start: 08-24-2019 Screening for malignant neoplasm of breast MAMMOGRAM SCREENING DISCUSSION [facility] Start: 12-20-2016 Screening for osteoporosis Bone Density Screening [facility] Start: 06-17-2014 Diabetes Screening Diabetes Screening [facility] Start: 2011 RSV Vaccine (1 - 1-dose 60+ series) RSV Vaccine (1 - 1-dose 60+ series) [facility] Start: 12-20-2001 Shingrix Vaccine (1 of 2) Shingrix Vaccine (1 of 2) [facility] Start: 12-20-2001 Zoster vaccine hzv live for subcutaneous use ZOSTER (SHINGLES) VACCINE (1 of 2) [facility] Start: 12-20-1996 Lipid panel Lipid Screening [facility] Start: 12-20-1996 Screening for malignant neoplasm of colon [facility] Start: 1991 Lipid panel LIPID SCREENING [facility] Start: 12-20-1972 Screening for malignant neoplasm of cervix CERVICAL CANCER SCREENING DISCUSSION [facility] Start: 12-20-1970 Third diphtheria, tetanus and acellular pertussis (DTaP) vaccination TDAP (ADULT) [facility] Start: 12-20-1970 Urine microalbumin profile DTaP,Tdap,Td Vaccine (1 - Tdap) [facility] Start: 12-20-1969 Annual PCP Team Chronic Disease Visit Annual PCP Team Chronic Disease Visit [facility] Start: 1950 Hepatitis C screening HEPATITIS C VIRUS SCREENING [facility] Start: 1950 Screening for osteoporosis DEXA SCAN DISCUSSION [facility] Start: 1950 Tetanus vaccination TETANUS [facility] End: 07-23-2024 CT Lumbar spine WO contrast CT LUMBAR SPINE WO IVCON Radiology Routine Chronic bilateral low back pain with bilateral sciatica 1 Occurrences starting 06/24/2023 until 07/23/2024 [facility] Work Phone: Comment on above: 1 Occurrences starting 06/24/2023 until 07/23/2024 End: 07-23-2024 MR Thoracic spine WO contrast MRI THORACIC SPINE WO IVCON Radiology Routine 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 1 Occurrences starting 06/24/2023 until 07/23/2024 [facility] Work Phone: Comment on above: 1 Occurrences starting 06/24/2023 until 07/23/2024 Patient Education Stephanie Non Diagn ostic Block [facility] Work Phone: Patient referral [facility] Work Phone: XR Knee - left 3 Views XR KNEE L EFT 3 VIEWS Imaging Routine Pain in prosthetic joint, sequela Ordered: 09/16/2022 20x200 Comment on above: Ordered: 09/16/2022 XR Pelvis and Hip - left Views X R HIP WITH PELVIS LEFT Imaging Routine Pain in prosthetic joint, sequela 09/18/2022 10:11 AM EDT 20x200 Work Phone: [facility] Immun[facility] Immunization Date Immunization Notes Care Provider [facility] 02-11-2022 influenza virus vacc ine, unspecified formulation Ghanshyam Lombardi MD Work Phone: [facility] 07-12-2020 COVID-19, mRNA, LNP- S, PF, 30 mcg/0.3 mL dose Wm Nagy [facility] Comment on above: Reason for Medicatio n: Prophylaxis 06-14-2020 COVID-19, mRNA, LNP- S, PF, 30 mcg/0.3 mL dose Wm Nagy [facility] Comment on above: Reason for Medicatio n: Prophylaxis 02-18-2018 pneumococcal polysaccharide vaccine, 23 valent Wm Nagy [facility] 06-18-2017 tuberculin skin test ; unspecified formulation Praveen Bynum 02-05-2017 pneumococcal conjuga te vaccine, 13 valantony Burk Yakov [facility] [place] 10-20-2012 pneumococcal polysaccharide vaccine, 23 valent Wm Nagy [facility] [place] Payers Date Payer Category Payer Private Health Insurance 2022 Self-pay [id number] 2020 Unknown [id number] 2018 Medicare [id number] 1959 Private Health Insurance [id number] 1951 Unknown [id number] 2.16.84 0.1.243615.3.579.2.727 1951 Unknown [id number] 2.16.8 40.1.466229.3.579.2.159 1951 Unknown [id number] 2.16.84 0.1.163728.3.579.2.593 1951 Unknown [id number] 2.16.84 0.1.131236.3.579.2.593 1951 Unknown [id number] 2.16.84 0.1.995016.3.579.2.593 1951 Unknown [id number] 2.16.84 0.1.239027.3.579.2.593 1951 Unknown [id number] 2.16.84 0.1.753570.3.579.2.593 1951 Unknown [id number] 2.16.84 0.1.474345.3.579.2.593 1951 Unknown [id number] 2.16.84 0.1.752159.3.579.2.593 1951 Unknown [id number] 2.16.84 0.1.899254.3.579.2.593 1951 Unknown [id number] 2.16.84 0.1.859431.3.579.2.593 1951 Unknown [id number] 2.16.84 0.1.541454.3.579.2.593 1951 Unknown [id number] 2.16.84 0.1.163112.3.579.2.593 1951 Unknown [id number] 2.16.84 0.1.385039.3.579.2.593 1951 Unknown [id number] 2.16.84 0.1.978889.3.579.2.593 1951 Unknown [id number] 2.16.84 0.1.591113.3.579.2.593 1951 Unknown [id number] 2.16.84 0.1.237344.3.579.2.593 1951 Unknown [id number] 2.16.84 0.1.448347.3.579.2.593 1951 Unknown [id number] 2.16.84 0.1.779773.3.579.2.593 1951 Unknown [id number] 2.16.84 0.1.413346.3.579.2.593 1951 Unknown [id number] 2.16.84 0.1.527360.3.579.2.593 1951 Unknown [id number] 2.16.84 0.1.719759.3.579.2.593 1951 Unknown [id number] 2.16.84 0.1.929904.3.579.2.593 1951 Unknown [id number] 2.16.84 0.1.757724.3.579.2.593 1951 Unknown [id number] 2.16.84 0.1.867744.3.579.2.593 1951 Unknown [id number] 2.16.84 0.1.749303.3.579.2.593 1951 Unknown [id number] 2.16.84 0.1.723646.3.579.2.593 1951 Unknown [id number] 2.16.84 0.1.902021.3.579.2.593 1951 Unknown [id number] 2.16.84 0.1.446481.3.579.2.593 1951 Unknown [id number] 2.16.84 0.1.586960.3.579.2.593 1951 Unknown [id number] 2.16.84 0.1.432684.3.579.2.593 1951 Unknown [id number] 2.16.8 40.1.366746.3.579.2.983 1951 Unknown [id number] 2.16.8 40.1.069438.3.579.2.983 1951 Unknown [id number] 2.16.8 40.1.047803.3.579.2.983 1951 Unknown [id number] 2.16.8 40.1.068976.3.579.2.727 1951 Unknown [id number] 2.16.8 40.1.089399.3.579.2.727 1951 Unknown [id number] 2.16.8 40.1.659251.3.579.2.727 1951 Unknown [id number] 2.16.8 40.1.530640.3.579.2.727 Unknown Unknown [id number] Unknown [id number] 2.16.8 40.1.979352.3.579.2.531 Unknown [id number] 2.16.8 40.1.249916.3.579.2.531 Unknown [id number] 2.16.8 40.1.629822.3.579.2.531 Unknown [id number] 2.16.8 40.1.717864.3.579.2.531 Unknown [id number] 2.16.8 40.1.945728.3.579.2.531 Social History Date Type Detail Facility Start: 06-18-2017 Unknown if ever smoked [employer] Start: 04-24-2020 End: 06-24-2023 Tobacco smoking status NHIS Never smoked tobacco (finding) [facility] Start: 1950 Sex Assigned At Female F [facility] Start: 06-24-2023 Sex Assigned At F [facility] Start: 09-18-2022 Tobacco use and exposure Smokeless tobacco non-user [facility] [facility] Start: 09-18-2022 End: 06-24-2023 Alcohol intake Current drinker of alcohol (finding) [facility] [facility] Start: 09-18-2022 Alcohol Comment occasional [employer] [facility] Start: 1950 Sex Assigned At Not on file [facility] [email or web address] Start: 06-24-2023 Alcohol intake [facility] National Score (1-100), lower number is lower risk 62 [facility] Medical Equipment Procedure Code Equipment Code Equipment Origin al Text Equipment Identifier Dates Arthroplasty, knee, total, minimally invasive Orthopaedic cement, non-medicated [id number] FDA Start: 05-07-2020 Arthroplasty, knee, total, minimally invasive Uncoated knee femur prosthesis, metallic [id number] FDA Start: 05-07-2020 Arthroplasty, knee, total, minimally invasive Tibial insert ()[id number] FDA Start: 05-07-2020 Arthroplasty, knee, total, minimally invasive Uncoated knee tibia prosthesis, metallic ()[id number] FDA Start: 05-07-2020 Arthroplasty, knee, total, minimally invasive Polyethylene patella prosthesis ()[id number] FDA Start: 05-07-2020 Goals Date Patient Goal Desired Activity /State Functional Status Date Assessment Result Facility 07-26-2022 Functional Status No [facility] 07-26-2022 Functional Status [facility] 03-08-2022 Functional Status No [facility] Clinical Notes 10-07-2021 to 06-24-2023 Ghanshyam Lombardi MD - 06/24/2023 1:40 PM EST Note Date & Type Note Facility 06-24-2023 Note HNO ID: [id number] Author: GHANSHYAM LOMBARDI MD Service: ? Author Type: Physician Type: Progress Notes Filed: 06/24/2023 13:45 Note Text: Staff note: Patient seen and examined Patient with severe back and leg pain Complex history of multiple spine fusion c/b infection, requiring extension surgery (lateral corpectomy) Now with MECHANICAL back pain and leg pain, worse when getting out of bed, Difficulty with walking Exam 5/5 aside from BL HF 4/5 and right DF/PF 4/5 No umn signs Areflexic Forward posture of exam Instability of gait due to pain, likely Normal UE exam Imaging reveals previous hardware and instability at 5.1 disc, kyphotic upright, 35-40 degrees lordotic supine Plan 5.1 ALIF, revision posterior We discussed the minimum criteria for elective surgery: A. Imaging fits with history and examination and has surgical correctable findings B. Conservative modalities have been trialed in a meaningful way that have failed to provide relief C. The pain is significant enough to interfere with QOL and undergoing an irreversible surgical procedure makes sense to the patient from a symptom severity standpoint A and B were confirmed by me, C was confirmed by the patient. With this in mind it is reasonable to proceed with: As above CT lumbar spine MRI thoracic spine due to severe gait instability I had a long discussion with the patient in the office today, they had many appropriate questions, all were answered to their satisfaction, no guarantees were offer nor implied in our discussion. 30 minutes spent Ghanshyam Lombardi MD [facility] 06-24-2023 History of Present illness Narrative Staff note: Patient seen and examined Patient with severe back and leg pain Complex history of multiple spine fusion c/b infection, requiring extension surgery (lateral corpectomy) Now with MECHANICAL back pain and leg pain, worse when getting out of bed, Difficulty with walking Exam 5/5 aside from BL HF 4/5 and right DF/PF 4/5 No umn signs Areflexic Forward posture of exam Instability of gait due to pain, likely Normal UE exam Imaging reveals previous hardware and instability at 5.1 disc, kyphotic upright, 35-40 degrees lordotic supine Plan 5.1 ALIF, revision posterior We discussed the minimum criteria for elective surgery: A. Imaging fits with history and examination and has surgical correctable findings B. Conservative modalities have been trialed in a meaningful way that have failed to provide relief C. The pain is significant enough to interfere with QOL and undergoing an irreversible surgical procedure makes sense to the patient from a symptom severity standpoint A and B were confirmed by me, C was confirmed by the patient. With this in mind it is reasonable to proceed with: As above CT lumbar spine MRI thoracic spine due to severe gait instability I had a long discussion with the patient in the office today, they had many appropriate questions, all were answered to their satisfaction, no guarantees were offer nor implied in our discussion. 30 minutes spent Ghanshyam Lombardi MD documented in this encounter [facility] 05-15-2023 Evaluation note Encounter Date Diagnosis Assessment [...] In the meantime, she can continue taking Jaroso as needed all as well as Gabapentin [...] of any breach, fraud, or malicious third libertarian actors and no personal patient information was compromised. [employer] Other 01-24-2024 Evaluation note* Encounter Date Diagnosis [...] agrees with plan all questions were addressed. [employer] Other 12-28-2023 Evaluation note* Encounter Date Diagnosis Assessment Notes Treatment Notes Treatment Clinical Notes Mar, Lumbar radiculopathy (ICD-10 - M54.16) 72 year old female evaluated via telephonic call for follow up and medication refill for chronic pain. She voices complaints of low back pain with intermittent radiation down the right lower extremity. She continues taking Jaroso with relief and is requesting a refill of this today. I discussed different treatment options in detail with the patient. She feels medication is managing her pain and does not wish to proceed with injections at this time. I encouraged the patient to start physical therapy as previously discussed. She can also continue taking medications as prescribed and I will refill her Jaroso as she feels this provides an element [...] pain (ICD-10 - G89.29) Continue medication management. [employer] Other 12-15-2023 Evaluation note* Encounter Date Diagnosis [...] pain (ICD-10 - G89.29) Continue medication management. [employer] Other 10-24-2023 Evaluation note* Encounter Date Diagnosis Assessment Notes Treatment Notes Treatment Clinical Notes Jan, Lumbar radiculopathy (ICD-10 - M54.16) [employer] Other 10-10-2023 Evaluation note* Encounter Date Diagnosis [...] regarding this. 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 Hydrocodone/Acetamin ophen was refilled today, opioid risk assessment was done as well as pill count. Patient is compliant with opioid medication. The patient denies any opioid related side effects. [employer] Other 09-22-2023 Evaluation note* Encounter Date Diagnosis [...] educated on the risks and benefits of intermediate opioid use. Hydrocodone/Aceta minophen was refilled today, opioid risk assessment was done as well as pill count. Patient is compliant with opioid medication. The patient denies any opioid related side effects. Patients last urine drug screen was positive for alcohol, she is counselled against consuming alcohol. [employer] Other 08-25-2023 Evaluation note* Encounter Date Diagnosis [...] M51.36) Stable, follow up in 4 weeks. [employer] Other 06-02-2023 Evaluation note* Encounter Date Diagnosis [...] nerve blocks in the future if needed. [employer] Other 06-01-2023 History of Present illness Narrative* [...] 09/18/2022 10:58 AM Patient: Leelee Cedillo MR#: [id number] : 1950 Age: 71 y.o. Referring Physician: Sorin Dickerson DO Insurance: Payor: MEDICARE [employer] HMO PPO / Plan[facility] / Product Type: *No Product type* [...] repair GALL BLADDER SURGERY 1999 BACK SURGERY [id number]- FOOT SURGERY [id number] Family History: Her family history is not [...] [x]cane, []bracing Are you followed by a wire wheeler? [] [x] Name: Are you followed by [...] repair GALL BLADDER SURGERY 1999 BACK SURGERY [id number]- FOOT SURGERY [id number] No family history on file. Social History [...] Rash Flagyl [Metronidazole] Dyspepsia [facility] [facility]:Result Comment: Electronically Signed By: Rachel SALTER\.br\Date and Time Signed: 07/27/22 15:21 EDT\.br\Electronically Co-Signed By: Ottoniel RUFF, Francisco Beck\.br\Date and Time Co- Signed: 07/27/22 17:04 [id number] Hospital Discharge instructions Patient Education 07/27/2022 15:20:26 [...] Follow these instructions at home: Medicines Take zibs-jqu-zdtcjqh and prescription medicines only as told by [...] 04/06/2006 Document Revised: 07/29/2019 Document Reviewed: 02/23/2019 [employer] Patient Education 2020 [employer]. 07/27/2022 15:20:26 Vasovagal Syncope, Pediatric Vasovagal Syncope, [...] ?Squatting. ?Moving his or her legs. Give rrfl-kxx-smvznmz and prescription medicines only as told by [...] 01/13/2009 Document Revised: 03/19/2018 Document Reviewed: 05/12/2017 [employer] Patient Education [employer]. Follow Up Care 07/26/2022 11:32:57 With:Sara Vick Address: [address] [place] [phone] Business (1) When: Unknown Comments:Call for followup appointment 7-10 days With:Julio Ferrara MD, NEU Address: [address] [place] [phone] When:2 to 4 weeks [facility] [facility] Evaluation + Plan noteExtracted from: Title:Discharge Note [...] Daily With When Contact Information Sara Vick [facility] [place] [address]- [facility] (1) Additional Instructions: Call for followup appointment 7-10 days Josias RUFF, CARLOS Thacker Within 2 to 4 weeks [address] [place] [address]- Additional Instructions: Near-Syncope Vasovagal Syncope, Pediatric Extracted [...] it is acute or subacute. It might hospitalist nocturnist physician to just be some focal white matter [...] specified devices) recent right foot surgery in [place] w/podiatry secondary to non healing food wound. Currently has wound vac intact to this operative site. 6. Osteoarthritis (M19.90: Unspecified osteoarthritis, unspecified site) osteoarthritis status post left hip replacement Has chronic back pain. 7. 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 Diagnostic Tests Pending * HgbA1c 07/27/22 [facility]04-08-2023 NoteFisher [facility] CenterComment on above:Result Comment: Electronically Signed [...] if her pain increases in the future. [employer] Other 01-04-2023 NotePROCEDURE: XR FOOT RT MIN [...] Electronically authenticated by: JULIO LOBATO Date: 2022-04-23 13:00[facility]01-04-2023 NotePROCEDURE: XR FOOT RT MIN 3 [...] Electronically authenticated by: JULIO LOBATO Date: 2022-04-23 13:00[facility]12-12-2022 NotePROCEDURE: XR ANKLE RT MIN 3 [...] authenticated by: ALFRED UMAÑA Date: 2022-03-31 18:19[facility] [id number] Hospital Discharge instructions Patient Education 03/08/2022 17:44:27 [...] 04/06/2006 Document Revised: 04/15/2017 Document Reviewed: 03/23/2017 [employer] Patient Education 2020 [employer]. 03/08/2022 17:44:27 Hip Dislocation Hip Dislocation Hip [...] Follow these instructions at home: Medicines Take fmhl-kjw-bckiwgn and prescription medicines only as told by your health care provider. Ask your health care provider if the medicine prescribed to you: ?Requires you to avoid driving or using heavy machinery. ?Can cause constipation. You may need to take actions to prevent or treat constipation, such as: ?Drink enough fluid to keep your urine pale yellow. ?Take tqel-jkt-dwyboza or prescription medicines. ?Eat foods that are [...] in the [place] Do not drive yourself [facility]. Summary Hip dislocation happens [...] 12/30/2001 Document Revised: 12/29/2018 Document Reviewed: 12/30/2018 [employer] Patient Education 2020 [employer]. Follow Up Care 03/08/2022 13:37:46 With:Sorin DICKERSON Address: [address] [place] [address] [address] [place] [address]- Business (1) When:03/11/2022 17:44:09 Comments:Call to establish follow-up care. Wear brace until follow-up with orthopedic surgery. With:Sara Vick Address: [facility] [facility] [place] [address]- Business (1) When:03/11/2022 17:43:29 Comments:Call the office [...] you develop any new or worsening symptoms. [facility]11-19-2022 Evaluation + Plan noteExtracted from: Title:ED Note Author:Wm Nagy DO Date:05/08/21 Dislocation, hip (S73.006A: Unspecified dislocation of unspecified hip, initial encounter) Ordered: acetaminophen-hydrocodone, 1 tab(s), Oral, q4hr for pain, 12 tab(s), Refill(s) 0, [facility]/pharmacy #[id number], 172, cm, 03/08/22 13:49:00 EST, [...] XR Hip 2-3 Views Left + Pelvis [facility]11-18-2022 Evaluation note* Encounter Date Diagnosis Assessment Notes [...] negative findings were considered in medical decision-making. [employer] Other 06-20-2022 NotePROCEDURE: XR FOOT RT MIN [...] authenticated by: JULIO LOBATO Date: 2021-10-07 11:44[facility] CenterEvaluation noteNo InformationNort License Acquisitions Other Evaluation noteNo assessment information available [facility] Work Phone: Evaluation note* Diagnosis Pain in prosthetic joint, sequela- Primary [facility] Diagnosis Adjacent segment disease of lumbar spine with history of fusion procedure- Primary Chronic bilateral low back pain with bilateral sciatica [facility] Diagnosis 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) documented in this encounter [facility] general Narrative - Reported* Type Description Date [...] 2 021 Surgical History back surgeries x5 [facility] [employer] kori gilman 2018 [employer] Other [employer] general Narrative - Reported* Type Description Date [...] 2 021 Surgical History back surgeries x5 [facility] [employer] yuandr gilman 2019 Hospitalization History see above [employer] Other [employer] general Narrative - Reported* Type Description Date [...] 2 021 Surgical History back surgeries x5 [facility] mariseladr gilman 2019 Surgical History lazer surgery on her lt leg veins and she also had sclero tx on b/l legs 2022 Hospitalization History see above [employer] Other Hospital course Narrative No data available for this section [facility] No data available for this section [facility] for referral (narrative)* Diagnostic Procedure Only (Routine) - Closed Specialty Diagnoses / Procedures Referred By Contac t Referred To Contact XR IMAGING Diagnoses Fusion of spine of thoracolumbar region Procedures XR SCOLIOSIS PA STAND/LAT 2V RADEX ENTIR THRC LMBR CRV SAC SPI W/SKULL 2/3 VW Ros Cedeño APRN.BUS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 [address] [place] [address] Xr Imaging [place] [address] Referral ID Status Reason Start Date Expiration Date V isits Requested Visits Authorized [id number] Closed Auto-Generate d Referral 02/25/2023 03/26/2024 1 1 * Diagnostic Procedure Only (Routine) - Closed Specialty Diagnoses / Procedures Referred By Maximiliano dee Referred To Contact XR IMAGING Diagnoses Fusion of spine of thoracolumbar region Procedures XR LUMBAR MOTION 4V AP/LAT/ FLEX/EXT RADEX SPINE LUMBOSACRAL MINIMUM 4 VIEWS Ros Cedeño PERSONAL CARE AIDE.BUS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 [address] [place] [phone] Xr Imaging [facility] Referral ID Status Reason Start Date Expiration Date V isits Requested Visits Authorized [id number] Closed Auto-Generate d Referral 02/25/2023 03/26/2024 1 1 [facility] for visit Narrative* Diagnostic Procedure Only (Routine) - Closed Specialty Diagnoses / Procedures Referred By Bryonac t Referred To Contact XR IMAGING Diagnoses Fusion of spine of thoracolumbar region Procedures XR SCOLIOSIS PA STAND/LAT 2V RADEX ENTIR THRC LMBR CRV SAC SPI W/SKULL 2/3 VW Ros Cedeño APRN.BUS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 [address] [place] [phone] Xr Imaging [facility]95 Referral ID Status Reason Start Date Expiration Date V isits Requested Visits Authorized [id number] Closed Auto-Generate d Referral 02/25/2023 03/26/2024 1 1 [facility] Advance Directives No Advanced [...] Referred By Contac t Referred To Contact CT IMAGING Diagnoses Chronic bilateral low back pain with bilateral sciatica Procedures CT LUMBAR SPINE WO IVCON CT LUMBAR SPINE W/O CONTRAST MATERIAL Ghanshyam Lombardi MD [address] [facility] [place] [id number] Ct Imaging [facility] Referral ID Status Reason Start Date Expiration Date Visits Requested Visits Authorized [id number] Pending Review Auto-Generat ed Referral 06/24/2023 07/23/2024 1 1 Specialty Diagnoses / Procedures Referred By Contac t Referred To Contact MR IMAGING Diagnoses 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 Procedures MRI THORACIC SPINE WO IVCON MRI SPINAL CANAL THORACIC W/O CONTRAST MATRL Ghanshyam Lombardi MD [address] [place] [address] Mr Imaging [facility]95 Referral ID Status Reason Start Date Expiration Date Visits Requested Visits Authorized [id number] Pending Review Auto-Generat ed Referral 06/24/2023 07/23/2024 1 1 Specialty Diagnoses / Procedures Referred By Contac t Referred To Contact Diagnoses Pain in prosthetic joint, sequela Procedures XR HIP WITH PELVIS LEFT Perfecto Burch MD [address] [place] [address] Referral ID Status Reason Start Date Expiration Date V isits Requested Visits Authorized [id number] New Request 09/18/2022 10/13/2023 1 1 Specialty Diagnoses / Procedures Referred By Contac t Referred To Contact Diagnoses Pain in prosthetic joint, sequela Procedures XR KNEE LEFT 3 VIEWS Perfecto Burch MD [address] [place] [address] Referral ID Status Reason Start Date Expiration Date V isits Requested Visits Authorized [id number] New Request 09/16/2022 10/11/2023 1 1 Additional Source Comments INFORMATION SOURCE (unrecogn ized section and content) DATE CREATED AUTHOR 12/13/2017 [facility] DATE CREATED AUTHOR AUTHOR'S ORGANIZ ATION 07/10/2018 [facility] DATE CREATED AUTHOR AUTHOR'S ORGANIZ ATION 02/25/2019 [facility] DATE CREATED AUTHOR AUTHOR'S ORGANIZ ATION 03/01/2022 [facility] dical Specialist DATE CREATED AUTHOR AUTHOR'S ORGANIZ ATION 07/26/2022 [facility] DATE CREATED AUTHOR AUTHOR'S ORGANIZ ATION 09/27/2022 [facility] DATE CREATED AUTHOR AUTHOR'S ORGANIZ ATION 09/27/2022 [facility] DATE CREATED AUTHOR AUTHOR'S ORGANIZ ATION 11/26/2022 [facility] DATE CREATED AUTHOR AUTHOR'S ORGANIZ ATION 05/29/2023 [facility] DATE CREATED AUTHOR AUTHOR'S ORGANIZ ATION 06/25/2023 [facility] REASON FOR VISIT (unrecogniz ed section and content) Specialty Diagnoses / Procedures Referred By Contac t Referred To Contact Diagnoses Pain in prosthetic joint, sequela Procedures XR HIP WITH PELVIS LEFT Perfecto Burch MD [address] [place] [address] Referral ID Status Reason Start Date Expiration Date V isits Requested Visits Authorized [id number] New Request 09/18/2022 10/13/2023 1 1 Reason Comments Pain New Patient Reason Comments New Patient Patient Care team informatio n (unrecognized section and content) Team Status: Active Member Role Status Dates Sara Vick MD Primary Care Provider Active Team Status: Inactive Member Role Status Dates Sara Vick MD Primary Care Provider, Attending Pr dustyer Active Sonogram Technician Relationship Specialty Start Date End Date Sara Vick MD [address] [place] [address] PCP - General Family Medicine 04/09/22 Sonogram Technician Relationship Specialty Start Date End Date Sara Vick MD [address] [place] [address] PCP - General Family Medicine 04/09/22 Team [...] May 22, 2023 End: May 22, 2023 Sonogram Technician Relationship Specialty Start Date End Date Sara Vick MD PCP - General Family Medicine 06/09/11 Sonogram Technician Relationship Specialty Start Date End Date Sara Vick MD PCP - General Family Medicine 06/09/11 Goals (unrecognized section and content) Goals may be documented in a n alternate section Source Comments (unrecognize d section and content) In the event this informatio n is protected by the Federal Confidentiality of Alcohol and Drug Abuse Patient Records regulations: The Federal rules restrict any use of the information to criminally investigate or prosecute any alcohol or drug abuse patient.[facility] the event this information is protected by the Federal Confidentiality of Alcohol and Drug Abuse Patient Records regulations: The Federal rules restrict any use of the information to criminally investigate or prosecute any alcohol or drug abuse patient.[facility] FOR RECORDS PERTAINING TO PATIENTS WHO ARE [...] BE BASED ON THE PRIMARY CLINICAL RECORDS. [facility] [employer] [facility]. provides no warranty or guarantee of the accuracy or completeness of information in this document.
== END 2023-06-26 10:37 | disposition home or self-care (01) ==
LOC: WC 10:36
PROVIDERS: PCP Family Medicine; Visit Provider Podiatrist Foot & Ankle Surgery
DX: L89.512 Pressure ulcer of right ankle, stage 2 (principal); L97.512 Non-pressure chronic ulcer of other part of right foot with fat layer exposed
CPT/HCPCS: G0463

== ENCOUNTER 2023-07-20 12:18 | Outpatient (OUT) | payer MEDICARE, SELFPAY ==
--- NOTE | 2023-07-20 12:33 | XR_ITS ---
The [address] [address] Patient Name: KENAN CHASE MRN: [id number] date: 1950 Sex: F Assigned Patient Location: [facility] Current Patient Location: Accession/Order Number: [id number] Exam Date: 07/20/2023 12:45 Report Date: 07/21/2023 08:08 At the request of: SARA VICK Procedure: XR shoulder LT min 2V PROCEDURE: XR shoulder LT min 2V HISTORY: [id number] acute left shoulder pain for several weeks; no known injury COMPARISON: None. FINDINGS: BONES:Mild narrowing of the acromioclavicular joint with prominent undersurface osteophyte. Unremarkable humeral head and glenoid. SOFT TISSUES:No visible soft tissue swelling. EFFUSION:None visible. OTHER: Negative. XR/XR shoulder LT min 2V IMPRESSION: 1. Degenerative changes of the acromioclavicular joints which would predispose to rotator cuff injury. 2. No acute bone abnormality. Electronically authenticated by: JULIO LOBATO Date: 07/21/2023 08:08
--- OUTSIDE RECORDS SUMMARY | 2023-07-20 12:36 | XMS_ITS | CCD ---
Author Organization [facility] Care Team Providers Care Criminalist Technician Name Role Phone Praveen Lopez Unavailable Unavailable PHYSICIAN, DEFAULT Unavailable Unavailable PHYSICIAN, DEFAULT Unavailable Unavailable SARA VICK Unavailable Unavailable Sara Vick~[phone] UNKNOWN Admitting Unavailable Sara Vick~[phone] UNKNOWN Attending Unavailable Sara Vick~[phone] UNKNOWN Referring Unavailable Sara Vick Primary Care Provider [phone] Trino Yoo Attending Provider [phone] Larry Brown Unavailable Sara Vick Primary Care Physician [phone] Lynn Salas Unavailable Unavailable Liam Flor Unavailable Unavailable ADELE FLEMING Attending Unavailable SARA VICK Primary Care Unavailable MD Sara Vick Primary Care Provider MD Sara Vick Attending Provider DEEPALI JANSEN Consulting Unavailable DEEPALI JANSEN Admitting Unavailable DEEPALI JANSEN Attending Unavailable DR SARA OVERTON Primary Care Unavailable ADELE FLEMING Attending Unavailable ADELE FLEMING Admitting Unavailable NICANOR ., DR RUIZ Primary Care Unavailable ADELE FLEMING Admitting Unavailable ADELE FLEMING Attending Unavailable NICANOR Mohan, DR RUIZ Primary Care Unavailable NICANOR ., DR RUIZ Consulting Unavailable NICANOR ., DR RUIZ Primary Care Unavailable NICANOR ., DR RUIZ Admitting Unavailable NICANOR Mohan, DR RUIZ Attending Unavailable SHAWANDA LITTLE Admitting Unavailable SHAWANDA LITTLE Attending Unavailable SHAWANDA LITTLE Consulting Unavailable DR SARA OVERTON Primary Care Unavailable SARA LAUREN Consulting Unavailable ADELE FLEMING Admitting Unavailable HIGHLANDER, ADELE Means Attending Unavailable HOY ., DR RUIZ Primary Care Unavailable HIGHLANDER, ADELE Means Admitting Unavailable HIGHLANDER, ADELE Means Attending Unavailable HOY ., DR RUZI Primary Care Unavailable WEST, DR ALFRED Deal [...] Unavailable WEST, DR ALFRED Deal Consulting Unavailable ELZBIETADEEPALI Admitting Unavailable ELZBIETA, DEEPALI Attending Unavailable HOY ., DR RUIZ Primary Care Unavailable DEEPALI JANSEN Consulting Unavailable HIGHLANDER, ADELE Means Attending Unavailable HIGHLANDER, ADELE Means Admitting Unavailable HOY ., DR RUIZ Primary Care Unavailable WEST, DR ALFRED Deal Attending Unavailable WEST, DR ALFRED Deal Consulting Unavailable WEST, DR ALFRED Deal Admitting Unavailable HOY ., DR RUIZ Primary Care Unavailable [facility], DR JULIO Wu Consulting Unavailable WEST, DR ALFRED Deal Attending Unavailable WEST, DR ALFRED Deal Consulting Unavailable WEST, DR ALFRED Deal Admitting Unavailable HOY ., DR RUIZ Primary Care Unavailable RACHELLEECK, DR AKIL Salvador Consulting Unavailabl e REINECK, [...] Unavailable Sara Vick MD Primary Care Provider [phone] Julio Ferrara Consulting Unavailable Francisco Alcazar S Admitting Unavailable Francisco Alcazar S Attending Unavailable Harriman, Julio Consulting Unavailable Harriman, Julio Consulting Unavailable Harriman, Julio Consulting Unavailable Harriman, Julio Consulting Unavailable Harriman, Julio Consulting Unavailable Harriman, Julio Consulting Unavailable Harriman, Julio Consulting Unavailable Harriman, Julio Consulting Unavailable Wm Nagy Attending Unavailable Flavio Castillo Attending Unavailable Alley Naranjo Admitting Unavailable Alley Naranjo Attending Unavailable Umang Naranjoa Referring Unavailable ShaneDominique Unavailable MD Sara Vick Primary Care Provider [phone] MD Larry Brown Attending Provider [phone] Kiran Kessler Unavailable HAILEY Jansen Attending Provider [phone] MD Kirna Kessler Attending Provider [phone] Sara Vick Primary Care Unavailable Deepali Jansen Admitting Unavailable Deepali Jansen Attending Unavailable Larry Brown Admitting Unavailable Larry Brown Attending Unavailable Hoy, Sara M Primary Care Unavailable Hocarolina, Sara M Primary Care Unavailable Larry Brown Admitting Unavailable Larry Brown Attending Unavailable Nicanor, Sara M Primary Care Unavailable Kiran Kessler Admitting Unavailabl Kiran Hendrix Attending Unavailabl e Hoy, Sara M Attending Unavailable Hoy, Sara M Admitting Unavailable Hoy, Sara M Primary Care Unavailable Sara Vick MD Primary Care Provider [phone] ROS CEDEÑO Referring Unavailable HOY, SARA M Primary Care Unavailable GHANSHYAM LOMBARDI Attending Unavailable HOY, SARA M Primary Care Unavailable HOY, SARA M Referring Unavailable COCOE GHANSHYAM Referring Unavailable HOY, SARA M Primary Care Unavailable ANNIE JIMENEZ Attending Unavailable Unavailable Unavailable Unavailable Allergies Allergy Classification Reported Allergen(s) Allergy Type Date of Onset Reaction(s) Facility (1 source) Sulfa Antibiotics 06-19-19 18 [facility] (3 sources) Sulfonamides (Antibiotic) Drug allergy (disorder) 08-02-19 10 [facility] Repository (4 sources) Sulfamethoxazole; Translations: [sulfamethoxazole ] Drug Allergy Cutaneous eruption (morphologic abnormality) [facility] Repository (2 sources) Sulfur; Translations: [Sulfur] Drug Allergy [facility] Repository (9 sources) Sulfonamides (Antibiotic); Translations: [Sulfa (Sulfonamide Antibiotics)] Allergy to substance 07-17-[address] [facility] (16 sources) Sulfacetamide Drug Allergy 09-19-19 23 [employer] Other (2 sources) metroNIDAZOLE Drug Allergy 09-19-19 Dyspepsia [facility] (1 source) Sulfacetamide Drug Allergy 05-18-19 [facility] Repository Medications Current Medications Medication Drug Class(es) [...] 12:00am Start: 03-06-2023 take 1 tablet by odnna th once daily as needed HYDROcodone-Acetaminophen 5-325 [...] for 30 days Dec, Active Start: 03-08-2022 Phil Campbell 325 mg-5 mg oral tablet 1 tab(s), Oral, q4hr for pain, 12 tab(s), Refill(s) 0, [id number], 172, cm, 03/08/22 13:49:00 EST, Height/Length [...] Daily, # 30 tab(s), Refills(s) 0, Pharmacy: [facility] #[id number], 172.7, cm, 07/26/22 11:43:00 EDT, Height/Length [...] 06/19/2017 9:00:00 take 1 capsule by mo [facility] every twenty-four hours Vitamin D3 50 MCG [...] sodium 75 mg delayed release oral tablet (4 sources) Nonsteroidal Anti-inflammatory Drug Start: take 1 [...] Start: 06-19-2017 take 1 tablet by donna twice daily gabapentin 600 mg Tab 600 [...] 1 tablet by donna th once daily for thyroid dysfunction Synthroid Tablet [...] Comment on above: Take 1 tablet by [facility] once daily. tiZANidine 4 mg oral tablet (20 sources) Central alpha-2 Adrenergic Agonist Start: 07-26-2022 take 2 tablets by mouth every eight hours as needed for muscle spasms tiZANidine 4 mg Tab 8 mg = 2 tab(s), Oral, q8hr, PRN Spasm, Refills(s) 0 Start Date: 07/26/22 Status: Ordered Start: 06-19-2017 take 2 tablets by [facility] daily Zanaflex Tablet 4 MG 2 tablet Tablet Oral GIVE 2 TABS (8MG) BY MOUTH TWICE DAILY FOR MUSCLOSKELETAL 06/19/2017 9:00:00 take 1 capsule by [facility] once daily at bedtime tiZANidine HCl 4 mg capsule Take 4 mg by mouth daily at bedtime. 0 Active take 1 capsule by [facility] every eight hours tiZANidine HCl 4 [...] on above: Take 1 tablet by donna once daily. 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 therapy; Translations: [OTH CUSTODIAL CURRENT DRUG THERAPY] Onset: 3 Episodic Other [...] chronic pain] Chronic Other nervous system disorders (8 sources) Other chronic pain; Translations: [Chronic bilateral low back pain with bilateral sciatica] Onset: 4 Chronic Other nervous system disorders (2 sources) [...] Chronic Other nutritional; endocrine; and metabolic disorders (3 sources) Obesity; Translations: [Obesity, unspecified] Onset: 2 [...] left elbow, initial encounter] Episodic Thyroid disorders (14 sources) Hypothyroidism; Translations: [Hypothyroidism, unspecified] Onset: 2 [...] Onset: 10-09-2021 Episodic Fracture of lower limb (3 sources) Closed fracture of shaft of fibula; Translations: [Unspecified fracture of shaft of unspecified fibula, initial encounter for closed fracture] Onset: 01-07-2017 01-07-2017 Episodic Inflammation; infection of eye (except that caused by tuberculosis or sexually transmitteddisease) (3 sources) Uveitis; 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] Onset: 07-01-2011 07-01-2011 Episodic Malaise and fatigue (1 source) Other fatigue; Translations: [OTHER FATIGUE] Onset: 05-24-2022 Episodic Nutritional deficiencies (5 sources) Cobalamin deficiency; Translations: [Vitamin B deficiency] [...] Onset: 10-07-2021 Episodic Other connective tissue disease (3 sources) Personal history of other diseases of the musculoskeletal system and connective tissue; Translations: [Personal history of other musculoskeletal disorders] Onset: 07-01-2011 07-01-2011 Episodic Other injuries and conditions due to external causes (3 sources) H/O: knee problem; Translations: [Personal history [...] COLON] Onset: 05-24-2022 Episodic Other skin disorders (3 sources) Loss of hair; Translations: [Nonscarring hair loss, unspecified] Onset: 06-18-2011 06-18-2011 Episodic Residual codes; unclassified (3 sources) History of operative procedure on foot; Translations: [Other specified postprocedural states] Onset: 07-01-2011 04-15-2021 Episodic Residual codes; unclassified (3 sources) Human leukocyte antigen B27 test positive; [...] Test Name Value Interpretation Reference Range Facility CT LUMBAR SPINE WO IVCONon 0 07-13-2023 CT LUMBAR SPINE WO IVCON * * *Final Report* * * DATE OF EXAM: Jul 13 2023 11:11AM [facility] 0508 - CT LUMBAR SPINE WO IVCON / PROCEDURE REASON: multiple diagnoses * * * * Physician Interpretation * * * * RESULT: EXAMINATION: CT LUMBAR SPINE WO IVCON CLINICAL HISTORY: Chronic bilateral low back pain with bilateral sciatica TECHNIQUE: Spiral, high resolution axial unenhanced images were obtained from the thoracolumbar junction to the sacrum with sagittal and coronal planar reconstructions. MQ: [id number]_3 CT Radiation dose: Integrated Dose-Length Product (DLP) for this visit = 937 mGy*cm. CT Dose Reduction Employed: Automated exposure control (AEC) COMPARISON: MRI lumbar spine 02/03/2023 and additional prior studies. RESULT: Counting reference: Lumbosacral junction. For the purposes of this report, L4-5 is considered the level of the iliac crest and assume there are 5 lumbar-type vertebrae. Anatomic variant: None. Preschool Special Education Teacher (topogram) images: Left femoroacetabular arthroplasty. Alignment: Mild dextrocurvature apex right at L2-3. Reversal of normal lumbar lordosis. Accentuated lordosis at L5-S1 with distraction across the anterior interspace. Bone marrow /fracture: Postsurgical change from laminectomies at L2-3, L3-4 and L4-5. Bony fusion across and L1-L2 and L3-L5 interspaces and fusion across the facet joints from T12-L5. Widened anterior interspace at L5-S1 with prominent endplate sclerosis and vacuum disc phenomenon. Prominent anterior osteophyte formation at S1-S2. Instrumented posterior fusion with bilateral pedicle screws T11-L1 and L3-L4, with fixation rods at these levels. Additionally there is left lateral approach hardware fixation at L1-2 with the superior screw extending across the L1-2 interspace. Oblique screw fixation T12-L1 with slight purchase of the superior L1 and inferior T12 and endplates. No significant periprosthetic lucency. Hardware is intact. Grafts at L2-3 interspace and along the left L1 margin. Ghost tracts at L5 bilaterally. No acute fracture. Paraspinal soft tissues: Disruption of posterior soft tissues from prior laminectomy. Atrophy of dorsal paraspinous musculature. Small hiatal hernia. Canal and foramina: Suboptimal visualization of the spinal canal due to beam hardening artifact from metallic hardware, within this constraint, following findings are identified: Lower thoracic spine: The visualized lower thoracic bony canal and foramina are patent. L1-L2: Canal and foramina are patent. L2-L3: Moderate left foraminal narrowing from facet hypertrophy. Canal and right foramen are patent. L3-L4: Mild right foraminal narrowing from facet hypertrophy. Canal and left foramen are patent. L4-L5: Mild bilateral foraminal narrowing from facet hypertrophy. Canal is patent. L5-S1: As mentioned above, prominent endplate sclerosis with accentuated lordosis and widening of the disc space anteriorly with vacuum disc phenomenon. Prominent disc osteophyte complex which is partially calcified, resulting in severe canal stenosis along with posterior ligamentous hypertrophy. Severe bilateral neural foraminal narrowing. Sacrum and iliac wings: Bone graft donor site in the bilateral laura/fascia. Mild sacroiliac degenerative joint changes bilaterally. IMPRESSION: Postsurgical changes from multilevel laminectomy and instrumented fusion as discussed, with intact hardware. Accentuated lordosis at L5-S1 with prominent endplate degenerative change, and vacuum disc phenomenon, severe canal and bilateral foraminal stenosis at L5-S1. No acute osseous abnormality. Anatomic Lumbar Variant: None. L4-5 is considered the level of the iliac crest and assume there are 5 lumbar-type vertebrae. Transcribe Date/Time: Jul 13 2023 12:05P Dictated by: MICHAEL VICTOR MD This examination was interpreted and the report reviewed and electronically signed by: MICHAEL VICTOR MD on Jul 13 2023 12:17PM EST Thank you for allowing us to participate in the care of your patient. Should there be any questions regarding this interpretation, please call [phone]. If you are unable to reach us at the number above, please feel free to contact [facility] at [phone]. [id number] Normal [facility] CT Lumbar spine WO contrasto n 07-13-2023 [facility] CNOVon 06-24-2023 CNOV Office Visit (SPNSMN ) LEELEE CEDILLO ([id number]) 1950 F Date Time Provider Department 06/24/23 [...] Ghanshyam Lombardi MD Referring Provider: SARA VICK [[id number]] Allergies As of Date: 06/24/2023 Noted Allergy Reaction SULFA (SULFONAMIDE ANTIBIOTICS) 07/16/2006 Date Reviewed: 06/24/2023 Reviewed by: Kaur Manzano MA - Fully Assessed Reason for Visit: New Patient [172] Primary Visit Diagnosis:Adjacent segment disease of lumbar spine with history of fusion procedure [M51.36, Z98.1] Other Visit Diagnosis:Chronic bilateral low back pain with bilateral sciatica [M54.42, M54.41, G89.29] Order(s):MRI THORACIC SPINE WO IVCON [[id number]] Order #: [id number] FUTURE CT LUMBAR SPINE WO IVCON [[id number]] Order #: [id number] FUTURE Prescriptions as of 06/24/2023 - pantoprazole [...] Status:Closed by GHANSHYAM LOMBARDI on 06/24/23 Normal [facility] XR LUMBAR 4V AP/LAT/ FLEX/EX Ton [...] Number of different views (projections): 2 (accession [id number]), 4 (accession [id number]) COMPARISON: Radiographs dated 09/23/2021 RESULT: Counting reference: [...] changes with no evidence of hardware complication. Camera Operator: ELAINE Transcribe Date/Time: Jun 24 2023 12:52P Dictated by : LATASHA QUEZADA MD This examination was interpreted and the report reviewed and electronically signed by: LATASHA QUEZADA MD on Jun 24 2023 12:55PM EST [id number] Normal [facility] XR Lumbar spine Views W flex ion and W extensionon 06-24-2023 [facility] XR SCOLIOSIS 2V PA STAND/LAT on 06-24-2023 [...] Number of different views (projections): 2 (accession [id number]), 4 (accession [id number]) COMPARISON: Radiographs dated 09/23/2021 RESULT: Counting reference: [...] changes with no evidence of hardware complication. Camera Operator: PSCB Transcribe Date/Time: Jun 24 2023 12:52P Dictated by : LATASHA QUEZADA MD This examination was interpreted and the report reviewed and electronically signed by: LATASHA QUEZADA MD on Jun 24 2023 12:55PM EST [id number] Normal [facility] XR Thoracic and lumbar spine Views for scoliosis W standingon 06-24-2023 [facility] US arterial pvr rest Vito US arterial pvr rest LE [facility] [place] [address] Ultrasound Report Signed Patient: Leelee Cedillo MR#: [id number] 56 : 1950 Acct:[id number] Age/Sex: 72 / F ADM Date: 05/22/23 Loc: Room: Type: [facility] Attending Dr: Kiran Kessler MD Ordering [...] Drake Bates M.D.05/25/2023 10:58 AM Dictation Location: [place] [address] Tech: Katy Leone Transcribed By: LISBETH 05/25/23 1058 Dictated By: Drake Bates MD 05/25/23 1057 Signed By: 05/25/[address] [facility] US venous duplex LE BIon US venous duplex LE BI [facility] [address] [place] [address] [place], [place] [id number] Ultrasound Report Signed Patient: Leelee Cedillo MR#: [id number] 56 : 1950 Acct:[id number] Age/Sex: 72 / F ADM Date: 05/22/23 Loc: Room: Type: [facility] Attending Dr: Kiran Kessler MD Ordering [...] vein has previously been stripped. No significant tire maker incompetence is noted. The lesser saphenous [...] Drake Bates M.D.05/25/2023 10:57 AM Dictation Location: [place] [address] Tech: Katy Leone Transcribed By: LISBETH 05/25/23 1057 Dictated By: Drake Bates MD 05/25/23 1055 Signed By: 05/25/23 1057 [facility] ED Note-Physicianon 11-26-19 ED Note-Physician Normal [facility] Comment on above: Result Comment: Elec tronically Signed By: Sathya De La O PA-C\.br\Date and Time Signed: 11/22/22 14:13 EDT\.br\Electronically Co-Signed By: Flavio Castillo MD\.br\Date and Time Co-Signed: 11/25/22 13:23 EDT Consent for Treatmenton Consent for Treatment [id number]#1.0 0CD:127 Normal [facility] Discharge Instructionson Discharge Instructions [id number]#1. 00CD:127 Normal [facility] ED Clinical Summaryon 2022 ED Clinical Summary Normal [facility] ED Patient Education Noteon 11-22-2022 ED Patient Education Note Normal [facility] ED Patient Summaryon 023 ED Patient Summary Normal [facility] Neurology Forms- [employer] Neurology Forms- Text [id number]#1. 00CD:127 Normal [facility] EEGon 09-11-2022 EEG [facility] Comment on above: Result Comment: Elec tronically Signed By: Jonathan Powell DO\.br\Date and Time Signed: 09/11/22 10:41 EDT Consent for Treatmenton 08-19 Consent for Treatment [id number]#1.0 0CD:127 Normal [facility] Physician Orderon 09-03-2022 Physician Order [id number]#1.0 0CD:127 Normal [facility] VC CONSULT FOLLOWUPon 2022 VC CONSULT FOLLOWUP Patient: ITZEL CEDILLO Exam Date: 08/08/2022 : 1950 Gender:F Ordering : DR ALFRED UMAÑA M.D. Admission #: [id number] Family : Order #: [id number] CLICK HERE TO VIEW EXAM RADIOLOGY REPORT [...] Umaña MD on 08/08/2022 at 10:59 Normal [facility] VC EXT VENOUS LT LIMITEDon 0 08-08-2022 VC EXT VENOUS LT LIMITED Patient: LEELEE CEDILLO Exam Date: 08/08/2022 : 1950 Gender:F Ordering : DR ALFRED UMAÑA M.D. Admission #: [id number] Family : Order #: [id number] CLICK HERE TO VIEW EXAM RADIOLOGY REPORT [...] Umaña MD on 08/08/2022 at 09:43 Normal [facility] Coding Summary.on 07-29-2022 Coding Summary. Normal [facility] Insurance Correspondenceon 0 07-29-2022 Insurance Correspondence [id number]#1.0 0CD:127 Normal [facility] Insurance Correspondence Off iceon 07-29-2022 Insurance Correspondence Office [id number]#1. 00CD:127 Normal [facility] Discharge Instructionson Discharge Instructions [id number]#1. 00CD:127 Normal [facility] BvpH3bkl 07-28-2022 HbA1c (Bld) [Mass fraction] 5.3 % Normal <=5.9 [facility] Comment on above: Performed By: #### 2 [id number], [id number] ####[facility] [address] [place] [address] Insurance Correspondenceon 0 07-28-2022 Insurance Correspondence [id number]#1. 00CD:127 Normal [facility] C. diff by PCRon 07-27-2022 Clostridium difficile by PCR Negative Normal Negative [facility] Comment on above: Order Comment: Order added by Discern Expert. Result Comment: This test result should be correlated with clinical presentations and medical history by a healthcare provider to determine its clinical significance. Performed By: #### 3 [id number], [id number] ####[facility] [address] [place] [address] CDiff PCRon 07-27-2022 Cdiff Specimen Acceptable Acceptable Normal [facility] Comment on above: Performed By: #### 3 [id number], [id number] ####[facility] [address] [place] [address] Order Cancelled No, PCR to follow Normal Fi [facility] Comment on above: Performed By: #### 3 [id number], [id number], [id number] ####[facility] [address] [place] [address] CHEMISTRYOrdered By: SYSTEM SYSTEM on 07-27-2022 Anion [...] 0.16 m[IU]/L Low 0.34 - 5.60 mcIU/mL [facility] [place]isol Consultation Noteon 07-28-19 Consultation Note Normal [facility] Comment on above: Result Comment: Elec tronically Signed By: Smita Ramos RN\.br\Date and Time Signed: 07/27/22 07:14 EDT\.br\Electronically Co-Signed By: Jonathan Powell DO\.br\Date and Time Co-Signed: 07/27/22 10:23 EDT EMS Documentationon 07-28-19 EMS Documentation Normal [facility] EMS Documentation Normal [facility] EMS Documentation Normal [facility] Enteric Panel by PCRon 07-27 C. coli+jejuni+upsaliens is DNA VIVIANA+non-probe Ql (Stl) Not detected Normal [facility] Comment on above: Result Comment: Test ing was performed utilizing reverse billing auditor (RT), polymerase chain reaction (PCR), and array [...] nulcleic acid test. Performed By: #### 3 [id number], [id number], [id number] ####[facility] [address] [place] [address] E. coli stx1+stx2 genes VIVIANA+non-probe Ql (Stl) Negative Normal [facility] Comment on above: Performed By: #### 3 [id number], [id number] ####[facility] [address] [place] [address] Enteric Panel Intrl QC Pass Normal [facility] Comment on above: Result Comment: Test ing was performed utilizing reverse billing auditor (RT), polymerase chain reaction (PCR), and array [...] 1 and 2. Performed By: #### 3 [id number], [id number], [id number] ####[facility] [address] [place] [address] Norovirus genogroup I+II RNA VIVIANA+non-probe Ql (Stl) Not detected Normal [facility] Comment on above: Performed By: #### 3 [id number], [id number] ####[place] [address] [place] [address] Rotavirus A RNA VIVIANA+non-probe Ql (Stl) Not detected Normal [facility] Comment on above: Performed By: #### 3 [id number], [id number], [id number] ####[place] [address] [place] [id number] S. enterica+bongori DNA VIVIANA+non-probe Ql (Stl) Not detected Normal [facility] Comment on above: Result Comment: This test result should be correlated with clinical presentations and medical history by a healthcare provider to determine its clinical significance. Performed By: #### 3 [id number], [id number], [id number] ####[facility] [address] [place] [id number] Shigella species+EIEC invasion plasmid antigen H ipaH gene VIVIANA+non-probe Ql (Stl) Not detected Normal [facility] Comment on above: Performed By: #### 3 [id number], [id number], [id number] ####[place] 7294857 V. cholerae+parahaemolyt icus+vulnificus DNA VIVIANA+non-probe Ql (Stl) Not detected Normal [facility] Comment on above: Performed By: #### 3 [id number], [id number], [id number] ####[place] 7294857 Y. enterocolitica DNA VIVIANA+non-probe Ql (Stl) Not detected Normal [facility] Comment on above: Performed By: #### 3 [id number], [id number], [id number] ####[place] 7294857 Free T4on 07-27-2022 Free T4 [Mass/Vol] 1.91 ng/dL High 0.58-1.64 [facility] Comment on above: Order Comment: Free T4 added by Discern Rule due to a TSH result of <0.34 or >5.60. Performed By: #### 2 844990, 9196965, 0615930, 9095394, 731161234, 28581952 ####[facility] [address] [place] [id number] HEMATOLOGYOrdered By: Tonya Martin on 07-27-2022 WBC corrected for nucl RBC Auto (Bld) [#/Vol] 7.8 E9/L Normal 4.0 - 11.0 E9/L [facility] HemeAutoSS Inpatient Clinical Summaryon 07-27-2022 Inpatient Clinical Summary Normal [facility] Inpatient Patient Summaryon 07-27-2022 Inpatient Patient Summary Normal [facility] Inpatient Patient Summary Normal [facility] Interdisciplinary Note - Oumar e Manageron 04-09-2023 Interdisciplinary Note - President And Chief Executive Officer Normal [facility] Comment on above: Result Comment: Elec tronically Signed By: Tonya Matias\Date and Time Signed: 07/27/22 12:04 EDT Interdisciplinary Note - Pipe n 07-27-2022 Interdisciplinary Note - OT Normal [facility] Interdisciplinary Note - PTo n 07-27-2022 Interdisciplinary Note - PT PT eval completed; pt scores 16/24 on the AM-PAC 6-Clicks 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 Pt is able to safely perform bed <> chair transfers as she was doing prior to admission and has no further PT needs at this time. Normal [facility] Lipid Panelon 07-27-2022 Cholesterol in LDL [Mass/Vol] 91 mg/dL Normal <=129 [facility] Comment on above: Performed By: #### 2 766774, 7681148, 1721861, 2971891, 138273007, 69958176 ####[facility] [address] [place] [address] Cholesterol [Mass/Vol] 160 mg/dL Normal 120-200 [facility] Comment on above: Performed By: #### 2 750070, 4870454, 0548722, 6774856, 197215362, 82113174 ####[facility] [address] [place] [address] Cholesterol in HDL [Mass/Vol] 52 mg/dL Invalid Interpretation Code [facility] Comment on above: Result Comment: HDL > or equal to 60 mg/dL: Low cardiovascular riskHDL < 40 mg/dL : High cardiovascular risk Performed By: #### 2 262460, 7394432, 5973574, 5283614, 056982995, 57977583 ####[facility] [address] [place] [address] Cholesterol in VLDL [Mass/Vol] 17 mg/dL Normal 7-40 [facility] Comment on above: Performed By: #### 2 464940, 2447742, 2442249, 2501220, 707041274, 60434735 ####[facility] [address] [place] [address] Triglyceride [Mass/Vol] 83 mg/dL Normal <=149 [facility] Comment on above: Performed By: #### 2 038607, 1065408, 4563486, 8262606, 711252737, 38514274 ####[facility] [address] [place] [address] Lyteson 07-27-2022 Anion gap [Moles/Vol] 9 mmol/L Normal 6-16 [facility] Comment on above: Performed By: #### 2 489464, 7241259, 3990788, 1163115, 634449805, 87308661 ####[facility] [address] [place] [address] Chloride [Moles/Vol] 106 mmol/L Normal 101-111 [facility] Comment on above: Performed By: #### 2 009404, 0634441, 9640589, 8200711, 940021126, 73362369 ####[facility] [address] [place] [address] CO2 [Moles/Vol] 26 mmol/L Normal 21-31 [facility] Comment on above: Performed By: #### 2 106447, 6176490, 8067915, 7171720, 403716921, 69171465 ####[facility] [address] [place] [address] Potassium [Moles/Vol] 4.0 mmol/L Normal 3.5-5.3 [facility] Comment on above: Performed By: #### 2 142108, 9097880, 8184158, 0854009, 015479573, 70888594 ####[facility] [address] [place] [address] Sodium [Moles/Vol] 137 mmol/L Normal 135-145 [facility] Comment on above: Performed By: #### 2 462264, 2037166, 9066638, 3308933, 061087098, 56565703 ####[facility] [address] [facility] [place] [address] MRA Head w/o Contraston 04-0 9-2023 MRA Head w/o Contrast Normal [facility] MRI Brain w/o Contraston MRI Brain w/o Contrast Normal [facility] Monitor Recordon 07-27-2022 Monitor Record [id number]#1. 00CD:127 Normal [facility] Monitor Record [id number]#1. 00CD:127 Normal [facility] Patient Education - Texton 0 07-27-2022 Patient Education - Text Normal [facility] RAD - MRI Screening Formon 0 07-27-2022 RAD - MRI Screening Form [id number]#1. 00CD:127 Normal [facility] TSH With T4fr Reflexon 07-27 TSH Qn 0.16 m[IU]/L Low 0.34-5.60 [facility] Comment on above: Performed By: #### 2 188600, 0280341, 6604400, 8539210, 451794389, 65268050 ####[facility] [address] [place] [address] Troponin 9 Hr.on 07-27-2022 Troponin I.cardiac [Mass/Vol] 6.70 pg/mL Low 10.10-27.10 [facility] Comment on above: Result Comment: The 95% CI (Confidence Interval) PPV (Positive Predictive Value) for myocardial infarction in females is 38 pg/mL, in males 51 pg/mL. The results should be used in conjunction with clinical conditions of myocardial infarction.([employer] High Sensitivity Troponin I Instructions For Use, Christy [place], November 2017) Performed By: #### 1 [id number] ####[facility] [address] [place] [address] WBCon 07-27-2022 WBC corrected for nucl RBC Auto (Bld) [#/Vol] 7.8 E9/L Normal 4.0-11.0 [facility] Comment on above: Performed By: #### 2 974682, 0682495, 3238523, 2663821, 657079760, 32279400 ####[place] [address] [place] [address] Auto Diffon 07-26-2022 Basophils/100 WBC (Bld) 0.5 % Normal 0.0-2.0 [facility] Comment on above: Order Comment: Order Added by Discern Expert. Performed By: #### 2 852218, 9219760, 2631957, 7969568, 89369100, 25584396 ####[address] [address] Basophils/Leukocytes Auto (Bld) [Pure # fraction] 0.1 E9/L Normal 0.0-0.2 [facility] Comment on above: Order Comment: Order Added by Discern Expert. Performed By: #### 2 460585, 9686602, 6097213, 2546953, 57187688, 70578232 ####[address] [address] Eosinophils/100 WBC (Bld) 0.5 % Normal 0.0-8.0 [facility] Comment on above: Order Comment: Order Added by Discern Expert. Performed By: #### 2 565179, 2437906, 5480834, 9408192, 05355290, 51481758 ####[address] [address] Eosinophils/Leukocyte s Auto (Bld) [Pure # fraction] 0.1 E9/L Normal 0.0-0.5 [facility] Comment on above: Order Comment: Order Added by Discern Expert. Performed By: #### 2 534006, 1178973, 7988982, 1737960, 37449924, 76005274 ####[address] [address] Lymphocytes/100 WBC (Bld) 14.5 % Normal 14.0-50.0 [facility] Comment on above: Order Comment: Order Added by Discern Expert. Performed By: #### 2 208155, 0676965, 8819764, 6310059, 23524272, 91929196 ####[address] [address] Lymphocytes/Leukocyte s Auto (Bld) [Pure # fraction] 2.1 E9/L Normal 1.0-4.0 [facility] Comment on above: Order Comment: Order Added by Discern Expert. Performed By: #### 2 675588, 7881496, 0891587, 8617921, 67182440, 12747952 ####[address] [address] Monocytes/100 WBC (Bld) 6.5 % Normal 4.0-14.0 [facility] Comment on above: Order Comment: Order Added by Discern Expert. Performed By: #### 2 388701, 9807535, 3244041, 1296796, 06995914, 18622183 ####[address] [address] Monocytes/Leukocytes Auto (Bld) [Pure # fraction] 0.9 E9/L Normal 0.2-1.0 [facility] Comment on above: Order Comment: Order Added by Discern Expert. Performed By: #### 2 202791, 0327624, 5232749, 0660958, 54115969, 64303115 ####[address] [address] Neutrophils/100 WBC (Bld) 78.0 % High 36.0-75.0 [facility] Comment on above: Order Comment: Order Added by Discern Expert. Performed By: #### 2 143786, 6291726, 9774600, 2641736, 55578168, 31618375 ####[place] [address] [place] [address] Neutrophils/Leukocyte s Auto (Bld) [Pure # fraction] 11.4 E9/L High 2.0-7.5 [facility] Comment on above: Order Comment: Order Added by Discern Expert. Performed By: #### 2 189219, 9034464, 5011591, 2740898, 92979944, 59574133 ####[facility] [address] [place] [address] BMPon 07-26-2022 Creatinine [Mass/Vol] 0.8 mg/dL Normal 0.5-1.3 [facility] Comment on above: Performed By: #### 2 971461, 5410617, 3261450, 7962446, 77067806, 85996586 ####[facility] [address] [place] [address] Urea nitrogen [Mass/Vol] 11 mg/dL Normal 5-21 [facility] Comment on above: Performed By: #### 2 718068, 3712271, 9482917, 4505984, 80588371, 04644883 ####[facility] [address] [place] [address] Urea nitrogen/Creatinine [Mass ratio] 14 No Units Normal 10-20 [facility] Comment on above: Performed By: #### 2 024938, 0766230, 0111677, 8955014, 01639453, 37218389 ####[facility] [address] [place] [address] Anion gap [Moles/Vol] 13 mmol/L Normal 6-16 [facility] Comment on above: Performed By: #### 2 552365, 5776626, 3476202, 7468339, 38533202, 64070768 ####[facility] [address] [place] [address] Calcium [Mass/Vol] 9.3 mg/dL Normal 8.9-11.1 [facility] Comment on above: Performed By: #### 2 326003, 6341345, 6039454, 1594941, 24982617, 64536710 ####[facility] [address] [place] [address] Chloride [Moles/Vol] 101 mmol/L Normal 101-111 [facility] Comment on above: Performed By: #### 2 600576, 4347031, 0163406, 3733663, 85654664, 56264871 ####[facility] [address] [place] [address] CO2 [Moles/Vol] 27 mmol/L Normal 21-31 [facility] Comment on above: Performed By: #### 2 364330, 4364061, 5628149, 5630587, 66131456, 46678934 ####[facility] [address] [place] [address] Glucose [Mass/Vol] 88 mg/dL Normal 55-199 [facility] Comment on above: Result Comment: If t his glucose result represents a fasting glucose, interpretation should refer to the following reference range: 55-99 mg/dL Performed By: #### 2 974903, 2046102, 5568439, 9145423, 73043410, 81920440 ####[facility] [address] [place] [address] Potassium [Moles/Vol] 3.6 mmol/L Normal 3.5-5.3 [place] [facility] Comment on above: Performed By: #### 2 585554, 1460443, 6266937, 9090773, 55876003, 51381823 ####[facility] [address] [place] [address] Sodium [Moles/Vol] 137 mmol/L Normal 135-145 [facility] Comment on above: Performed By: #### 2 400104, 8208940, 4453847, 9512527, 28523443, 13852217 ####[facility] [address] [place] [address] CBC w/ Auto Diffon 3 Erythrocyte distribution width (RBC) [Ratio] 13.9 % Normal 10.9-14.2 [facility] Comment on above: Performed By: #### 2 468900, 7143649, 7579000, 6379469, 67430744, 83594920 ####[facility] [address] [place] [address] Hematocrit (Bld) [Volume fraction] 47.0 % High 34.0-46.0 [facility] Comment on above: Performed By: #### 2 461812, 7627188, 7132710, 7794658, 87153467, 96005415 ####[facility] [address] [place] [address] Hemoglobin (Bld) [Mass/Vol] 15.3 g/dL Normal 12.0-16.0 [facility] Comment on above: Performed By: #### 2 445832, 5029845, 7942822, 6007328, 91175348, 19022422 ####[facility] [address] [place] [address] MCH (RBC) [Entitic mass] 29.2 pg Normal 27.0-34.0 [facility] Comment on above: Performed By: #### 2 294006, 5868264, 1623215, 5046983, 05984816, 37410138 ####[address] [address] MCHC (RBC) [Mass/Vol] 32.7 g/dL Normal 31.4-36.0 [place] [facility] Comment on above: Performed By: #### 2 170212, 5551016, 1074872, 9028111, 31860307, 51556875 ####[address] [address] MCV (RBC) [Entitic vol] 89.3 fL Normal 80.0-100.0 [facility] Comment on above: Performed By: #### 2 506034, 7786808, 1905269, 3622300, 05852397, 96686872 ####[facility] [address] [place] [address] Platelet mean volume (Bld) [Entitic vol] 6.7 fL Normal 6.4-10.8 [facility] Comment on above: Performed By: #### 2 398575, 8554621, 8658081, 6670740, 26035237, 23053328 ####[address] [address] Platelets (Bld) [#/Vol] 324.0 E9/L Normal 150.0-500.0 [facility] Comment on above: Performed By: #### 2 768831, 2450708, 2757361, 2290299, 63014809, 97045085 ####[facility] [address] [place] [address] RBC (Bld) [#/Vol] 5.3 E12/L Normal 4.3-5.9 [facility] Comment on above: Performed By: #### 2 126002, 8507328, 3563537, 8571947, 87259817, 56577829 ####[facility] [address] [place] [address] WBC corrected for nucl RBC Auto (Bld) [#/Vol] 14.6 E9/L High 4.0-11.0 [facility] Comment on above: Performed By: #### 2 117411, 6099394, 7988469, 2452086, 65927050, 39379117 ####[facility] [address] [place] [address] CHEMISTRYOrdered By: SYSTEM SYSTEM on 07-26-2022 Troponin [...] 101 - 1 11 mmol/L [facility] Remisol CO2 [Moles/Vol] 27 mmol/L Normal 21 - 31 mmol/L [facility] Remisol Creatinine [Mass/Vol] 0.8 mg/dL Normal 0.5 - 1.3 mg/dL [facility] Remisol GFR/1.73 sq M.predicted among blacks MDRD (S/P/Bld) [Vol rate/Area] mL/min/1.73 m2 Normal >=59mL/min/1 .73 m2 [facility] Chem S GFR/1.73 sq M.predicted among non-blacks MDRD (S/P/Bld) [Vol rate/Area] mL/min/1.73 m2 Normal >=59mL/min/1 .73 m2 [facility] Chem S Glucose [Mass/Vol] 88 mg/dL Normal 55 - 199 mg/dL [facility] Remisol Magnesium [Mass/Vol] 2.0 mg/dL Normal 1.3 - 2 .4 mg/dL [facility] Remisol Potassium [Moles/Vol] 3.6 mmol/L Normal 3.5 - 5.3 mmol/L [facility] Remisol Sodium [Moles/Vol] 137 mmol/L Normal 135 - 145 mmol/L [facility] Remisol Urea nitrogen [Mass/Vol] 11 mg/dL Normal 5 - 21 mg/dL [facility] Remisol Urea nitrogen/Creatinine [Mass ratio] 14 mg/mg Normal 10 - 20 [facility] Remisol CHEMISTRYOrdered By: Lab ROP User on 07-26-2022 Glucose [Mass/Vol] 106 mg/dL High 55 - 99 mg/dL [facility] POC Subsection Comment on above: Result Comment: Parker GIL POC Device SN [id number] Invalid Interpretation Code [facility] POC Subsection POC User ID [id number] Invalid Interpretation Code [facility] POC Subsection POC Username SHANKAR ABARCA Invalid Interpretation Code [facility] [place] Subsection CT Head or Brain w/o Contras ton 07-26-2022 CT Head or Brain w/o Contrast Normal [facility] Capillary Glucose POCon Glucose [Mass/Vol] 106 mg/dL High 55-99 [facility] Comment on above: Result Comment: Parker GIL Performed By: #### 2 [id number] ####[facility] [address] [place] [address] Consent for Treatmenton Consent for Treatment [id number] 0CD:127 Normal [facility] ED Clinical Summaryon 2022 ED [facility]-27-19 ED Note-Physician Normal [facility] Comment on above: Result Comment: Elec tronically Signed By: Yaritza Cedeño PA-C\.br\Date and Time Signed: 07/26/22 14:17 EDT\.br\Electronically Co-Signed By: Lance Wu M.D.\.br\Date and Time Co-Signed: 07/26/22 15:36 EDT ED Patient Education Noteon 07-26-2022 ED Patient Education Note Normal [facility] ED Patient Summaryon 023 ED Patient Summary Normal [facility] HEMATOLOGYOrdered By: SYSTEM SYSTEM on [...] 14.6 E9/L High 4.0 - 11.0 E9/L [facility] HemeAutoSS Magnesiumon 07-26-2022 Magnesium [Mass/Vol] 2.0 mg/dL Normal 1.3-2.4 [facility] Comment on above: Performed By: #### 2 956943, 2205485, 2905526, 2491740, 94820475, 17758473 ####[facility] [address] [place] [address] Monitor Recordon 07-26-2022 Monitor Record [id number]#1. 00CD:127 Normal [facility] Pre-Arrival Noteon 3 Pre-Arrival Note Normal [facility] Troponin 0 Hr.on 07-26-2022 Troponin I.cardiac [Mass/Vol] 6.60 pg/mL Low 10.10-27.10 [facility] Comment on above: Order Comment: pt st ill in imaging, will check back later [id number] 07/26/2022 12:32:06 EDT Result Comment: The 95% CI (Confidence Interval) PPV (Positive Predictive Value) for myocardial infarction in females is 38 pg/mL, in males 51 pg/mL. The results should be used in conjunction with clinical conditions of myocardial infarction.([employer] High Sensitivity Troponin I Instructions For Use, [employer], November 2017) Performed By: #### 2 890491, 8079706, 1855801, 8060150, 38370132, 68857931 ####[facility] [address] [place] [address] Troponin 3 Hr.on 07-26-2022 Troponin I.cardiac [Mass/Vol] 6.00 pg/mL Low 10.10-27.10 [facility] Comment on above: Result Comment: The 95% CI (Confidence Interval) PPV (Positive Predictive Value) for myocardial infarction in females is 38 pg/mL, in males 51 pg/mL. The results should be used in conjunction with clinical conditions of myocardial infarction.([employer] High Sensitivity Troponin I Instructions For Use, [employer], November 2017) Performed By: #### 1 [id number] ####[facility] [address] [place] [address] Troponin 6 Hr.on 07-26-2022 Troponin I.cardiac [Mass/Vol] 5.40 pg/mL Low 10.10-27.10 [facility] Comment on above: Result Comment: The 95% CI (Confidence Interval) PPV (Positive Predictive Value) for myocardial infarction in females is 38 pg/mL, in males 51 pg/mL. The results should be used in conjunction with clinical conditions of myocardial infarction.([employer] High Sensitivity Troponin I Instructions For Use, [employer] [place] 2017) Performed By: #### 1 8342857 ####[facility] [address] [place] [address] UA With Cult Reflexon 2022 Bacteria LM Ql (Urine sed) TRACE Normal Trace [facility] Comment on above: Performed By: #### 1 1000901 ####[facility] [address] [place] [address] Bilirubin Ql (U) Negative Normal Negative [facility] Comment on above: Performed By: #### 1 3616502 ####[address] [address] Clarity (U) CLEAR Normal Clear [facility] Comment on above: Performed By: #### 1 8807330 ####[address] [address] Color (U) YELLOW Normal Yellow [facility] Comment on above: Performed By: #### 1 3203098 ####[address] [address] Epithelial cells.squamous LM.HPF (Urine sed) [#/Area] 3-4 Normal 0-2 [facility] Comment on above: Performed By: #### 1 6581311 ####[address] [address] Glucose Test strip (U) [Mass/Vol] Negative Normal Negative [facility] Comment on above: Performed By: #### 1 4560546 ####[address] [address] Hemoglobin Ql (U) Negative Normal Negative [facility] Comment on above: Performed By: #### 1 0037614 ####[facility] [address] [place] [address] Ketones (U) [Mass/Vol] Negative Normal Negative [facility] Comment on above: Performed By: #### 1 4488577 ####[facility] [address] [place] [address] [place].plasma/Lithiu m.RBC (Bld) [Mass ratio] 0-3 Normal 0-3 [facility] Comment on above: Performed By: #### 1 1616889 ####[address] [place] [address] Nitrite Ql (U) Negative Normal Negative [facility] Comment on above: Performed By: #### 1 2546356 ####[address] [address] pH (U) 6.5 [pH] Invalid Interpretation Code 5.0-9.0 [facility] Comment on above: Performed By: #### 1 1734547 ####[address] [address] Protein (U) [Mass/Vol] Negative Normal Negative [facility] Comment on above: Performed By: #### 1 3074973 ####[address] [address] Specific gravity (U) [Rel density] <=1.005 Invalid Interpretation Code 1.005-1.030 [facility] Comment on above: Performed By: #### 1 2473143 ####[address] [address] Type of Urine collection method Clean Catch Normal [facility] Comment on above: Performed By: #### 1 9165300 ####[address] [address] Urobilinogen Qn (U) 0.2 {Malu'U}/dL Normal 0.0-1.0 [facility] Comment on above: Performed By: #### 1 1877322 ####[address] [address] WBC Auto Ql (U) TRACE Abnormal Negative [facility] Comment on above: Performed By: #### 1 3396819 ####[address] [address] WBC LM.HPF (Urine sed) [#/Area] 0-5 Normal 0-5 [facility] Comment on above: Performed By: #### 1 7655279 ####[address] [address] URINALYSISOrdered By: Katerina Parker on 07-26-2022 Bacteria LM Ql (Urine sed) Trace /HPF Normal Trace/HPF [facility] UA Auto SS Bilirubin Ql (U) Negative [...] PM) Normal Negative [facility] UA Auto SS [place].plasma/Lithiu m.RBC (Bld) [Mass ratio] 0-3 /HPF Normal [...] [facility] UA Auto SS Urobilinogen Qn (U) 0.5041955 {Malu'U}/dL Normal 0.0 - 1.0 EU/dL [facility] UA Auto SS WBC Auto Ql (U) Trace *ABN* (07/26/22 4:49 PM) Invalid Interpretation Code Negative [facility] UA Auto SS WBC LM.HPF (Urine sed) [#/Area] 0-5 /HPF Normal 0-5/HPF [facility] UA Auto SS XR Chest Single Viewon 07-26 XR Chest Single View Normal [facility] eGFRon 07-26-2022 GFR/1.73 sq M.predicted among blacks MDRD (S/P/Bld) [Vol rate/Area] mL/min/{1.73_m2} Normal >=59 [facility] Comment on above: Order Comment: Order added by Discern Expert. Result Comment: eGFR is race adjusted. AA=. Performed By: #### 2 [id number], [id number] ####[facility] [address] [place] [address] GFR/1.73 sq M.predicted among non-blacks MDRD (S/P/Bld) [Vol rate/Area] mL/min/{1.73_m2} Normal >=59 [facility] Comment on above: Order Comment: Order added by Discern Expert. Result Comment: Airport Operations Specialist gina kidney disease could be indicated at eGFR's of less than 60 mL/min/1.73m2. Kidney failure is indicated at less than 15 mL/min/1.73m2. Performed By: #### 2 [id number], [id number] ####[facility] [address] [place] [address] SURGICAL PATH REPORTon 07-25 SURGICAL PATH REPORT [facility] Department of Pathology [address] [place] [id number] Name: LEELEE CEDILLO : 1950 [facility] [id number] Number: Gender Female [facility] : n: Admit 71 years Attending ADELE FLEMING Age: Provider: Ordering ADELE FLEMING Provider: Consulti Surgical Pathology Report ng: ACCESSION: COLLECTED DATE/TIME: RECEIVED DATE/TIME: PATHOLOGIST: [id number] 07/24/2022 12:16 EDT 07/24/2022 12:16 EDT MICHELINE STERN MD Final Diagnosis Report for [facility] [place] RIGHT ANKLE, PUNCH BIOPSY: - FRAGMENT [...] MP:alexa 07/24/2022 Tissue pathology report for: [facility], [address] [place] [address]; ____ ____ Print 07/25/2022 15:48 EDT Number: Date/Time: [facility] Department of Pathology [address] [place] [id number] Name: LEELEE CEDILLO : 1950 [facility] [id number] Number: [facility] : n: Admit 71 years Attending ADELE FLEMING Age: Provider: Ordering ADELE FLEMING Provider: Consulti Surgical Pathology Report ng: ACCESSION: COLLECTED DATE/TIME: RECEIVED DATE/TIME: PATHOLOGIST: [id number] 07/24/2022 12:16 EDT 07/24/2022 12:16 EDT LEENA RUFF, MICHELINE Gross Description PATHOLOGY SERVICES PROVIDED BY [employer] (CLIA #[id number]) in cooperation with [facility] at [address] [place] [address] ( CLIA #[id number]) Microscopic Diagnosis The final diagnosis is based on a microscopic exam of community representative sections. Codes CPT CODE: 90328 ____ ____ Print 07/25/2022 15:48 EDT Number: Date/Time: Normal [facility] Comment on above: Performed By: #### 9 [id number] #### [facility] Laboratory Services [address] [id number] Diving Judge: Jared Oh MD POINT OF CARE GLUCOSEon Glucose [Mass/Vol] 114 mg/dL Critically high 74-106 [facility] Comment on above: Performed By: #### P OCGLUC #### [facility] [address] [address] [address] Salvador Yung Glucose [Mass/Vol] 112 mg/dL Critically high 74-106 [facility] Comment on above: Performed By: #### P OCGLUC #### [facility] [address] [address] [address] Salvador Yung EMS Documentationon 07-21-19 23 EMS Documentation Normal [facility] SARS-CoV-2 (COVID-19) RNA VIVIANA+probe Ql (Unsp spec) Not detected Normal NOT DETECTED [facility] Comment on above: Result Comment: This test is not yet approved or cleared by the [place] FDA. When there are no FDA-approved or cleared tests available, and other criteria are met, FDA can make tests available under an emergency access mechanism called an Emergency Use Authorization (EUA). The EUA for this test is supported by the [place] General Superintendent of Health and Human Service's (HHS's) declaration [...] SARS-CoV-2. Performed By: #### C VDTB #### [facility] [address] [place] [address] Dr. Salvador Yung PROF CHEM 8 (BAS METB)on Anion gap [Moles/Vol] 12.0 mmol/L Normal [facility] Comment on above: Performed By: #### B MP #### [facility] [address] [place] [address] Dr. Salvador Yung Calcium [Mass/Vol] 9.4 mg/dL Normal 8.5-10.1 [facility] Comment on above: Performed By: #### B MP #### [facility] [address] [place] [address] Dr. Salvador Yung Chloride [Moles/Vol] 100 mmol/L Normal 98-107 [facility] Comment on above: Performed By: #### B MP #### [facility] [address] [place] [address] Dr. Salvador Yung CO2 [Moles/Vol] 29.8 mmol/L Normal 21.0-32.0 [facility] Comment on above: Performed By: #### B MP #### [facility] [address] [place] [address] Dr. Salvador Yung Creatinine [Mass/Vol] 0.91 mg/dL Normal 0.55-1.02 [facility] Comment on above: Performed By: #### B MP #### [facility] [address] [place] [address] Dr. Salvador Yung EGFR-AF WALLISIAN >60 Normal >=60 [facility] Comment on above: Performed By: #### B MP #### [facility] [address] [place] [address] Dr. Salvador Yung EGFR-NON AF WALLISIAN >60 Normal >=60 [facility] Comment on above: Performed By: #### B MP #### [facility] [address] [address] [address] Salvador Yung Glucose [Mass/Vol] 82 mg/dL Normal 74-106 [facility] Comment on above: Performed By: #### B MP #### [facility] [address] [address] [address] Salvador Yung Potassium [Moles/Vol] 3.8 mmol/L Normal 3.5-5.1 [facility] Comment on above: Performed By: #### B MP #### [facility] [address] [address] [address] Salvador Yung Sodium [Moles/Vol] 138 mmol/L Normal 136-145 [facility] Comment on above: Performed By: #### B MP #### [facility] [address] [address] [address] Salvador Yung Urea nitrogen [Mass/Vol] 12.0 mg/dL Normal 7.0-18.0 [facility] Comment on above: Performed By: #### B MP #### [facility] [address] [address] [address] Salvador Yung Urea nitrogen/Creatinine [Mass ratio] 13.2 mg/mg Normal [facility] Comment on above: Performed By: #### B MP #### [facility] [address] [address] [address] Salvador Yung VC INJ SCL JESSICA PROCUREMENT OFFICER VEINSon 0 07-01-2022 VC INJ SCL JESSICA PROCUREMENT OFFICER VEINS Patient: LEELEE CEDILLO Exam Date: 07/01/2022 : 1950 Gender:F Ordering : DR ALFRED UMAÑA M.D. Admission #: [id number] Family : Order #: [id number] CLICK HERE TO VIEW EXAM RADIOLOGY REPORT [...] Lobato M.D. on 07/01/2022 at 15:22 Normal [facility] VC CONSULT FOLLOWUPon 2022 VC CONSULT FOLLOWUP Patient: ITZEL CEDILLO Exam Date: 06/19/2022 : 1950 Gender:F Ordering : DR ALFRED UMAÑA M.D. Admission #: [id number] Family : Order #: [id number] CLICK HERE TO VIEW EXAM RADIOLOGY REPORT [...] Umaña MD on 06/19/2022 at 14:17 Normal [facility] VC EXT VENOUS LT LIMITEDon 0 06-19-2022 VC EXT VENOUS LT LIMITED Patient: LEELEE CEDILLO. Exam Date: 06/19/2022 : 1950 Gender:F Ordering : DR ALFRED UMAÑA M.D. Admission #: [id number] Family : Order #: [id number] CLICK HERE TO VIEW EXAM RADIOLOGY REPORT [...] Umaña MD on 06/19/2022 at 14:15 Normal [facility] VC INJ FOAM SCLERO W US MLTI on 06-13-2022 VC INJ FOAM SCLERO W US MLTI Patient: LEELEE CEDILLO Exam Date: 06/13/2022 : 1950 Gender:F Ordering : DR ALFRED UMAÑA M.D. Admission #: [id number] Family : Order #: [id number] CLICK HERE TO VIEW EXAM RADIOLOGY REPORT [...] duple (more content not included)... Normal [facility] VC CONSULT FOLLOWUPon 2022 VC CONSULT FOLLOWUP Patient: ITZEL CEDILLO Exam Date: 06/10/2022 : 1950 Gender:F Ordering : DR ALFRED UMAÑA M.D. Admission #: [id number] Family : Order #: [id number] CLICK HERE TO VIEW EXAM RADIOLOGY REPORT [...] Lobato M.D. on 06/10/2022 at 12:36 Normal [facility] VC EXT VENOUS RT LIMITEDon 0 06-10-2022 VC EXT VENOUS RT LIMITED Patient: LEELEE CEDILLO Exam Date: 06/10/2022 : 1950 Gender:F Ordering : DR ALFRED UMAÑA M.D. Admission #: [id number] Family : Order #: [id number] CLICK HERE TO VIEW EXAM RADIOLOGY REPORT [...] Lobato M.D. on 06/10/2022 at 12:33 Normal [facility] VC INJ FOAM SCLERO W US MLTI on 06-03-2022 VC INJ FOAM SCLERO W US MLTI Patient: LEELEE CEDILLO Exam Date: 06/03/2022 : 1950 Gender:F Ordering : DR ALFRED UMAÑA M.D. Admission #: [id number] Family : Order #: [id number] CLICK HERE TO VIEW EXAM RADIOLOGY REPORT PROCEDURE: VEIN CENTER INJECTION FOAM SCLEROSING SOLUTION WITH ULTRASOUND MULTIPLE VEINS COMPARISON: None. 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 Normal [facility] VC CONSULT FOLLOWUPon 2022 VC CONSULT FOLLOWUP Patient: ITZEL CEDILLOKimberlee Exam Date: 05/28/2022 : 1950 Gender:F Ordering : DR ALFRED UMAÑA M.D. Admission #: [id number] Family : Order #: [id number] CLICK HERE TO VIEW EXAM RADIOLOGY REPORT [...] Umaña MD on 05/28/2022 at 11:44 Normal [facility] VC EXT VENOUS RT LIMITEDon 0 05-28-2022 VC EXT VENOUS RT LIMITED Patient: LEELEE CEDILLO Exam Date: 05/28/2022 : 1950 Gender:F Ordering : DR ALFRED UMAÑA M.D. Admission #: [id number] Family : Order #: [id number] CLICK HERE TO VIEW EXAM RADIOLOGY REPORT [...] extends to distal lower leg. Thrombus in tire maker distal medial lower leg 2.8 mm [...] MD on 05/28/2022 at 11:30 Normal [facility] CBC AUTO DIFFon 05-21-2022 BASO # 0.1 103/ul Normal 0.0-0.1 [facility] Comment on above: Performed By: #### C BC #### [facility] [address] [address] [address] Salvador Yung Basophils/100 WBC (Bld) 0.6 % Normal 0.2-2.0 [facility] Comment on above: Performed By: #### C BC #### [facility] [address] [address] [address] Salvador Yung EO # 0.1 103/ul Normal 0.0-0.7 [facility] Comment on above: Performed By: #### C BC #### [facility] [address] [address] [address] Salvador Yung Eosinophils/100 WBC (Bld) 0.6 % Critically low 0.9-7.0 [facility] Comment on above: Performed By: #### C BC #### [facility] [address] [address] [address] Savlador Yung Erythrocyte distribution width (RBC) [Ratio] 12.4 % Normal 11.0-15.0 [facility] Comment on above: Performed By: #### C BC #### [facility] [address] [address] [address] Salvador Yung Hematocrit (Bld) [Volume fraction] 43.1 % Normal 36.0-48.0 [facility] Comment on above: Performed By: #### C BC #### [facility] [address] [address] [address] Salvador Yung Hemoglobin (Bld) [Mass/Vol] 13.8 g/dL Normal 12.0-16.0 [facility] Comment on above: Performed By: #### C BC #### [facility] [address] [place] [address] Dr. Salvador Yung IG # 0.06 10e3/ul Critically high 0.00-0.03 [facility] Comment on above: Performed By: #### C BC #### [facility] [address] [place] [address] Dr. Salvador Yung IG % 0.7 % Critically high 0.0-0.5 [facility] Comment on above: Performed By: #### C BC #### [facility] [address] [place] [address] Dr. Salvador Yung LYMPH # 1.7 103/ul Normal 1.2-3.8 [facility] Comment on above: Performed By: #### C BC #### [facility] [address] [place] [address] Dr. Salvador Yung Lymphocytes/100 WBC (Bld) 20.2 % Critically low 20.5-60.0 [facility] Comment on above: Performed By: #### C BC #### [facility] [address] [place] [address] Dr. Salvador Yung MANUAL DIFF REQ NO Normal [facility] Comment on above: Performed By: #### C BC #### [facility] [address] [place] [address] Dr. Salvador Yung MCH (RBC) [Entitic mass] 30.1 pg Normal 26.7-34.0 [facility] Comment on above: Performed By: #### C BC #### [facility] [address] [address] [address] Salvador Yung MCHC (RBC) [Mass/Vol] 32.0 g/dL Normal 29.9-35.2 [facility] Comment on above: Performed By: #### C BC #### [facility] [address] [address] [address] Salvador Yung MCV (RBC) [Entitic vol] 93.9 fL Normal 81.0-99.0 [facility] Comment on above: Performed By: #### C BC #### [facility] [address] [place] [address] Dr. Salvador Yung MONO # 0.5 103/ul Normal 0.3-0.8 [facility] Comment on above: Performed By: #### C BC #### [facility] [address] [place] [address] Dr. Salvador Yung Monocytes/100 WBC (Bld) 6.1 % Normal 1.7-12.0 [facility] Comment on above: Performed By: #### C BC #### [facility] [address] [place] [address] Dr. Salvador Yung NEUT # 6.1 103/ul Normal 1.4-6.5 [facility] Comment on above: Performed By: #### C BC #### [facility] [address] [place] [address] Dr. Salvador Yung Neutrophils/100 WBC (Bld) 71.8 % Normal 43.0-75.0 [facility] Comment on above: Performed By: #### C BC #### [facility] [address] [place] [address] Dr. Salvador Yung Platelet mean volume (Bld) [Entitic vol] 8.2 fL Critically low 9.5-13.5 [facility] Comment on above: Performed By: #### C BC #### [facility] [address] [place] [address] Dr. Salvador Yung PLT 246 103/ul Normal 150-450 [facility] Comment on above: Performed By: #### C BC #### [facility] [address] [address] [address] Salvador Yung RBC 4.59 106/ul Normal 4.20-5.40 [facility] Comment on above: Performed By: #### C BC #### [facility] [address] [address] [address] Salvador Yung WBC 8.5 103/ul Normal 4.0-11.0 [facility] Comment on above: Performed By: #### C BC #### [facility] [address] [address] [address] Salvador Yung FREE T3on 05-21-2022 FREE T3 2.14 pg/mlL Critically low 2.18-3.98 [facility] Comment on above: Performed By: #### P OCGLUC #### [facility] [address] [place] [address] Dr. Salvador Yung GLYCOHEMOGLOBIN A1Con 2022 ADA RECOMMENDATION SEE BELOW Normal [facility] Comment on above: Result Comment: ADA RECOMMENDED LIMIT 4.0 - 6.0 ADA THERAPEUTIC TARGET < 7.0 ACTION SUGGESTED > 7.0 Performed By: #### P OCGLUC #### [facility] [address] [place] [address] Dr. Salvador Yung Glucose [Mass/Vol] 100 mg/dL Normal [facility] Comment on above: Performed By: #### P OCGLUC #### [facility] [address] [place] [address] Dr. Salvador Yung HbA1c (Bld) [Mass fraction] 5.1 % Normal 4.5-6.2 [facility] Comment on above: Performed By: #### P OCGLUC #### [facility] [address] [place] [address] Dr. Salvador uYng LIPID PROFILEon 05-21-2022 CHOL-HDL RATIO NORM SEE BELOW Normal [facility] Comment on above: Result Comment: 3.3 - 4.4 LOW RISK 4.4 - 7.1 AVERAGE RISK 7.1 - 11.0 MODERATE RISK >11.0 HIGH RISK Performed By: #### P OCGLUC #### [facility] [address] [address] [address] Salvador Yung Cholesterol [Mass/Vol] 164 mg/dL Normal <=200 [facility] Comment on above: Performed By: #### P OCGLUC #### [facility] [address] [address] [address] Salvador Yung Cholesterol in HDL [Mass/Vol] 61 mg/dL Critically high 40-60 [facility] Comment on above: Performed By: #### P OCGLUC #### [facility] [address] [address] [address] Salvador Yung Cholesterol in LDL [Mass/Vol] 90.2 mg/dL Normal [facility] Comment on above: Performed By: #### P OCGLUC #### [facility] [address] [address] [address] Salvador Yung Cholesterol.total/Cho lesterol in HDL [Mass ratio] 2.7 {ratio} Normal [facility] Comment on above: Performed By: #### P OCGLUC #### [facility] [address] [address] [address] Salvador Yung HDL NORMAL > or = 60 mg/dl - LO W CARDIOVASCULAR RISK <40 mg/dl - HIGH CARDIOVASCULAR RISK Normal [facility] Comment on above: Performed By: #### P OCGLUC #### [facility] [address] [address] [address] Salvador Yung LDL CALC NORMAL SEE BELOW Normal [facility] Comment on above: Result Comment: <100 mg/dl OPTIMAL 100 - 129 mg/dl NEAR OR ABOVE OPTIMAL 130 - 159 mg/dl BORDERLINE HIGH 160 - 189 mg/dl HIGH >190 mg/dl VERY HIGH Performed By: #### P OCGLUC #### [facility] [address] [address] [address] Salvador Yung Triglyceride [Mass/Vol] 64 mg/dL Normal <=150 [facility] Comment on above: Performed By: #### P OCGLUC #### [facility] [address] [address] [address] Salvador Yung VLDL CALC 12.8 mg/dL Normal [facility] Comment on above: Performed By: #### P OCGLUC #### [facility] [address] [address] [address] Salvador Yung PROF 14(COMP METB)on 023 Albumin [Mass/Vol] 3.2 g/dL Critically low 3.4-5.0 [facility] Comment on above: Performed By: #### P OCGLUC #### [facility] [address] [address] [address] Salvador Yung Albumin/Globulin [Mass ratio] 0.7 {ratio} Normal [facility] Comment on above: Performed By: #### P OCGLUC #### [facility] [address] [address] [address] Salvador Yung ALP [Catalytic activity/Vol] 68 U/L Normal 46-116 [facility] Comment on above: Performed By: #### P OCGLUC #### [facility] [address] [place] [address] Dr. Salvador Yung ALT [Catalytic activity/Vol] 25 U/L Normal 14-59 [facility] Comment on above: Performed By: #### P OCGLUC #### [facility] [address] [address] [address] Salvador Yung Anion gap [Moles/Vol] 11.8 mmol/L Normal [facility] Comment on above: Performed By: #### P OCGLUC #### [facility] [address] [address] [address] Salvador Yung AST [Catalytic activity/Vol] 20 U/L Normal 15-37 [facility] Comment on above: Performed By: #### P OCGLUC #### [facility] [address] [address] [address] Salvador Yung Bilirubin [Mass/Vol] 0.5 mg/dL Normal 0.2-1.0 [facility] Comment on above: Performed By: #### P OCGLUC #### [facility] [address] [address] [address] Salvador Yung Calcium [Mass/Vol] 8.9 mg/dL Normal 8.5-10.1 [facility] Comment on above: Performed By: #### P OCGLUC #### [facility] [address] [address] [address] Salvador Yung Chloride [Moles/Vol] 105 mmol/L Normal 98-107 [facility] Comment on above: Performed By: #### P OCGLUC #### [facility] [address] [address] [address] Salvador Yung CO2 [Moles/Vol] 29.9 mmol/L Normal 21.0-32.0 [facility] Comment on above: Performed By: #### P OCGLUC #### [facility] [address] [address] [address] Salvador Yung Creatinine [Mass/Vol] 0.74 mg/dL Normal 0.55-1.02 [facility] Comment on above: Performed By: #### P OCGLUC #### [facility] [address] [address] [address] Salvador Yung EGFR-AF WALLISIAN >60 Normal >=60 [facility] Comment on above: Performed By: #### P OCGLUC #### [facility] [address] [address] [address] Salvador Yung EGFR-NON AF WALLISIAN >60 Normal >=60 [facility] Comment on above: Performed By: #### P OCGLUC #### [facility] [address] [address] [address] Salvador Yung Globulin (S) [Mass/Vol] 4.3 g/dL Normal [facility] Comment on above: Performed By: #### P OCGLUC #### [facility] [address] [address] [address] Salvador Yung Glucose [Mass/Vol] 88 mg/dL Normal 74-106 [facility] Comment on above: Performed By: #### P OCGLUC #### [facility] [address] [address] [address] Salvador Yung Potassium [Moles/Vol] 3.7 mmol/L Normal 3.5-5.1 [facility] Comment on above: Performed By: #### P OCGLUC #### [facility] [address] [address] [address] Salvador Yung Protein [Mass/Vol] 7.5 g/dL Normal 6.4-8.2 [facility] Comment on above: Performed By: #### P OCGLUC #### [facility] [address] [address] [address] Salvador Yung Sodium [Moles/Vol] 143 mmol/L Normal 136-145 [facility] Comment on above: Performed By: #### P OCGLUC #### [facility] [address] [address] [address] Salvador Yung Urea nitrogen [Mass/Vol] 11.0 mg/dL Normal 7.0-18.0 [facility] Comment on above: Performed By: #### P OCGLUC #### [facility] [address] [place] [address] Dr. Salvador Yung Urea nitrogen/Creatinine [Mass ratio] 14.9 mg/mg Normal [facility] Comment on above: Performed By: #### P OCGLUC #### [facility] [address] [address] [address] Salvador Yung T4on 05-21-2022 T4 [Mass/Vol] 11.60 ug/dL Normal 4.80-13.90 [facility] Comment on above: Performed By: #### P OCGLUC #### [facility] [address] [place] [address] Dr. Salvador Yung TSHon 05-21-2022 TSH 0.165 uIU/mL Critically low 0.358-3.740 [facility] Comment on above: Performed By: #### P OCGLUC #### [facility] [address] [address] [address] Salvador Yung VC ENDOVENOUS ABL 1ST V RTon 05-21-2022 VC ENDOVENOUS ABL 1ST V RT Patient: LEELEE CEDILLO Exam Date: 05/21/2022 : 1950 Gender:F Ordering : DR ALFRED UMAÑA M.D. Admission #: [id number] Family : Order #: [id number] CLICK HERE TO VIEW EXAM RADIOLOGY REPORT [...] Umaña MD on 05/21/2022 at 13:51 Normal [facility] VITAMIN D 25 OHon 05-21-2022 VIT D 25-OH 25.1 ng/mL Normal [facility] Comment on above: Performed By: #### V ITAD #### [facility] [address] [place] [address] Dr. Salvador Yung VIT D RANGES SEE BELOW Normal [facility] Comment on above: Result Comment: <20 ng/mL Vit D deficient 20 - <30 ng/mL Vit D insufficient 30 - 100 ng/mL Vit D sufficient >100 ng/mL Potential Toxicity Performed By: #### V ITAD #### [facility] [address] [address] [address] Salvador Yung XR HIP LT 2 [...] MARI LORENZO Date: 2022-05-21 16:26 Normal [facility] VC COMP CONSULTATIONon 05-01 VC COMP CONSULTATION Patient: REAGAN CEDILLO Exam Date: 05/01/2022 : 1950 Gender:F Ordering : DR. ADELE JimPMaribel Admission #: [id number] Family : Order #: [id number] CLICK HERE [...] small saphenous vein, right lower extremity incompetent tire maker veins, and bilateral lower extremity incompetent [...] arterial disease 5. CEAP: C6, EC, AP, NH PLAN: 1. Continued use of compression stockings 2. Elevated legs and increased physical activity symptomatic relief 3. Endovenous laser ablation of right small saphenous vein and tire maker vein. 4. Microfoam chemical ablation of [...] Lobato M.D. on 05/01/2022 at 15:27 Normal [facility] VC VENOUS REFLUX SAMI LMTon 0 05-01-2022 VC VENOUS REFLUX SAMI LMT Patient: LEELEE CEDILLO Exam Date: 05/01/2022 : 1950 Gender:F Ordering : DR. ADELE FLEMING D.P.MKimberlee Admission #: [id number] Family : DR ALFRED UMAÑA M.D. Order #: [id number] CLICK HERE TO VIEW EXAM RADIOLOGY REPORT [...] chronic thrombus visualized Compressibility: Normal Flow: Normal Delivery Assistant: Dist/med calf 2.6mm with 0s reflux. Mid/med calf 3.5mm with 0s reflux. Tech Note: GSV has been previously stripped. Patent varicose vein mid/med calf 2.3mm with 0.5s reflux. Patent varicose vein prox/med calf 3.4mm with 1.2s reflux. Patent varicose vein dist/med thigh 5.4mm with 0.8s reflux. CONCLUSION: 1. Dilated, incompetent right small saphenous vein. 2. 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 3. Consultation for endovenous laser ablation is recommended. Dictated by: Julio Lobato M.D. on 05/01/2022 at 14:06 Approved by: Julio Lobato M.D. on 05/01/2022 at 14:28 Normal [facility] Coding Summary.on 03-11-2022 Coding Summary. Normal [facility] ED Traumaon 03-09-2022 ED Trauma [id number]. 00CD:127 Normal [facility] Consent for Procedure/Surger yon 03-08-2022 Consent for Procedure/Surgery [id number]#1. 00CD:127 Normal [facility] Consent for Treatmenton 02-18 Consent for Treatment [id number] 0CD:127 [facility] Discharge Instructionson Discharge Instructions [id number]#1. 00CD:127 Normal [facility] ED Clinical Summaryon 2021 ED Clinical Summary Normal [facility] ED Note-Physicianon 03-08-20 ED Note-Physician Normal [facility] Comment on above: Result Comment: Elec tronically Signed By: Wm Nagy DO.br\Date and Time Signed: 03/08/22 21:11 EST ED Patient Education Noteon 03-08-2022 ED Patient Education Note Normal [facility] ED Patient Summaryon 022 ED Patient Summary Normal [facility] EMS Documentationon 03-08-20 EMS Documentation Normal [facility] EMS Documentation Normal [facility] Monitor Recordon 03-08-2022 Monitor Record [id number]#1. 00CD:127 Normal [facility] Monitor Record [id number]#1. 00CD:127 Normal [facility] Pre-Arrival Noteon Pre-Arrival Note Normal [facility] Respiratory Therapy Noteson 03-08-2022 Respiratory Therapy Notes conscious sedation on Eaton, Leelee. Used co2 monitor and one liter of 02. patient maintained 38 co2 and 99 O2. Last approx 40 min. Normal [facility] XR Hip 2-3 Views Left + Pelv yasir 03-08-2022 XR Hip 2-3 Views Left + Pelvis Normal [facility] XR Hip 2-3 Views Left + Pelvis Normal [facility] BLEEDING TIMEon 03-06-2022 BLEEDING TIME 10.5 min Critically high 1.0-8.0 [facility] Comment on above: Performed By: #### B LTM #### [facility] [address] [address] [address] Salvador Yung CBC AUTO DIFFon 03-06-2022 BASO # 0.1 103/ul Normal 0.0-0.1 [facility] Comment on above: Performed By: #### C BC #### [facility] [address] [place] [address] Dr. Salvador Yung Basophils/100 WBC (Bld) 0.7 % Normal 0.2-2.0 [facility] Comment on above: Performed By: #### C BC #### [facility] [address] [place] [address] Dr. Salvador Yung EO # 0.1 103/ul Normal 0.0-0.7 [facility] Comment on above: Performed By: #### C BC #### [facility] [address] [place] [address] Dr. Salvador Yung Eosinophils/100 WBC (Bld) 0.7 % Critically low 0.9-7.0 [facility] Comment on above: Performed By: #### C BC #### [facility] [address] [place] [address] Dr. Salvador Yung Erythrocyte distribution width (RBC) [Ratio] 12.9 % Normal 11.0-15.0 [facility] Comment on above: Performed By: #### C BC #### [facility] [address] [place] [address] Dr. Salvador Yung Hematocrit (Bld) [Volume fraction] 41.3 % Normal 36.0-48.0 [facility] Comment on above: Performed By: #### C BC #### [facility] [address] [address] [address] Salvador Yung Hemoglobin (Bld) [Mass/Vol] 13.7 g/dL Normal 12.0-16.0 [facility] Comment on above: Performed By: #### C BC #### [facility] [address] [place] [address] Dr. Salvador Yung IG # 0.05 10e3/ul Critically high 0.00-0.03 [facility] Comment on above: Performed By: #### C BC #### [facility] [address] [place] [address] Dr. Salvador Yung IG % 0.7 % Critically high 0.0-0.5 [facility] Comment on above: Performed By: #### C BC #### [facility] [address] [place] [address] Dr. Salvador Yung LYMPH # 1.4 103/ul Normal 1.2-3.8 [facility] Comment on above: Performed By: #### C BC #### [facility] [address] [place] [address] Dr. Salvadro Yung Lymphocytes/100 WBC (Bld) 18.9 % Critically low 20.5-60.0 [facility] Comment on above: Performed By: #### C BC #### [facility] [address] [place] [address] Dr. Salvador Yung MANUAL DIFF REQ NO Normal [facility] Comment on above: Performed By: #### C BC #### [facility] [address] [place] [address] Dr. Salvador Yung MCH (RBC) [Entitic mass] 30.3 pg Normal 26.7-34.0 [facility] Comment on above: Performed By: #### C BC #### [facility] [address] [place] [address] Dr. Salvador Yung MCHC (RBC) [Mass/Vol] 33.2 g/dL Normal 29.9-35.2 [facility] Comment on above: Performed By: #### C BC #### [facility] [address] [place] [address] Dr. Salvador Yung MCV (RBC) [Entitic vol] 91.4 fL Normal 81.0-99.0 [facility] Comment on above: Performed By: #### C BC #### [facility] [address] [place] [address] Dr. Salvador Yung MONO # 0.7 103/ul Normal 0.3-0.8 [facility] Comment on above: Performed By: #### C BC #### [facility] [address] [place] [address] Dr. Salvador Yung Monocytes/100 WBC (Bld) 9.9 % Normal 1.7-12.0 [facility] Comment on above: Performed By: #### C BC #### [facility] [address] [place] [address] Dr. Salvador Yung NEUT # 5.2 103/ul Normal 1.4-6.5 [facility] Comment on above: Performed By: #### C BC #### [facility] [address] [place] [address] Dr. Salvador Yung Neutrophils/100 WBC (Bld) 69.1 % Normal 43.0-75.0 [facility] Comment on above: Performed By: #### C BC #### [facility] [address] [place] [address] Dr. Salvador Yung Platelet mean volume (Bld) [Entitic vol] 7.9 fL Critically low 9.5-13.5 [facility] Comment on above: Performed By: #### C BC #### [facility] [address] [place] [address] Dr. Salvador Yung PLT 223 103/ul Normal 150-450 [facility] Comment on above: Performed By: #### C BC #### [facility] [address] [place] [address] Dr. Salvador Yung RBC 4.52 106/ul Normal 4.20-5.40 [facility] Comment on above: Performed By: #### C BC #### [facility] [address] [place] [address] Dr. Salvador Yung WBC 7.5 103/ul Normal 4.0-11.0 [facility] Comment on above: Performed By: #### C BC #### [facility] [address] [address] [address] Salvador Yung IRONon 03-06-2022 Iron [Mass/Vol] 83.0 ug/dL Normal 50.0-170.0 [facility] Comment on above: Performed By: #### I ESTEFANY #### [facility] [address] [place] [address] Dr. Salvador Yung PROTIMEon 03-06-2022 INR Coag (PPP) [Relative time] 0.95 {INR} Normal [facility] Comment on above: Performed By: #### P TT, PT #### [facility] [address] [place] [address] Dr. Salvador Yung INR GUIDELINES SEE BELOW Normal [facility] Comment on above: Result Comment: YOJANA RED INR: 2.0 - 3.0 CONDITIONS NOT LISTED BELOW 2.5 - 3.5 FOR PROSTHETIC HEART VALVE REPLACEMENT 2.5 - 3.5 RECURRENT THROMBOSIS Performed By: #### P TT, PT #### [facility] [address] [place] [address] Dr. Salvador Yung PT Coag (PPP) [Time] 10.3 s Normal 9.0-11.6 [facility] Comment on above: Performed By: #### P TT, PT #### [facility] [address] [place] [address] Dr. Salvador Yung PTTon 03-06-2022 aPTT Coag (Bld) [Time] 22.1 s Critically low 22.3-36.2 [facility] Comment on above: Performed By: #### P TT, PT #### [facility] [address] [place] [address] Dr. Salvador Yung SCREENING MAMMOGRAM W/DANIEL, BILATERAL*on [...] IS VERY IMPORTANT TO YOUR HEALTH. CURRENT [employer] GUIDELINES RECOMMENDS ANNUAL MAMMOGRAPHY BEGINNING AT AGE 41. THIS FACILITY USUALLY USES A REMINDER SYSTEM TO ENSURE ALL POSITIONS RECEIVED REMINDER NOTIFICATIONS AT THE TIME BASED ON THE RECOMMENDATIONS OF THIS EXAM. Report reported and signed by Julio Martines on 02/28/2022 1602 Normal [facility] Special[facility] Covid-19 PCR (CVDTBH)on 12-19 SARS-CoV-2 (COVID-19) RNA VIVIANA+probe Ql (Unsp spec) Not detected Normal NOT DETECTED [facility] Comment on above: Result Comment: This test is not yet approved or cleared by the [place] FDA. When there are no FDA-approved or cleared tests available, and other criteria are met, FDA can make tests available under an emergency access mechanism called an Emergency Use Authorization (EUA). The EUA for this test is supported by the [place] [employer] Superintendent of Health and Human Service's (HHS's) declaration [...] SARS-CoV-2. Performed By: #### P OCGLUC #### [facility] [address] [place] [address] Dr. Salvador Yung MRI LSPINE WO CONon [...] SARA LAUREN Date: 2021-12-10 12:11 Normal [facility] COVID-19 Positive/Negativeon 05-04-2020 COVID-19 Positive/Negative Negative Negative [facility] Comment on above: Testing for SARS-CoV -2 by RT-PCRThis test was developed and its performance characteristics determined by [employer] [facility] and validated at the [facility]. This test has not been FDA cleared [...] Otheron 05-04-2020 Coronavirus 2019 PCR Interp N/A [facility] Automated basophil %on 04-24 Basophils/100 WBC (Bld) 0.6 % [facility] Automated basophil counton 0 04-24-2020 Basophils (Bld) [#/Vol] 0.0 10*3/uL 0.0-0.2 [facility] Automated blood lymphocyte c ount (number/volume)on 04-24-2020 Lymphocytes (Bld) [#/Vol] 1.0 10*3/uL 1.00-4.8 [facility] Automated blood lymphocyte c ount as percentage of total leukocyteson 04-24-2020 Lymphocytes/100 WBC (Bld) 17.0 % [facility] Automated blood monocyte cou nton 04-24-2020 Monocytes (Bld) [#/Vol] 0.3 10*3/uL 0.0-0.8 [facility] Automated blood platelet cou nt (count/volume)on 04-24-2020 Platelets (Bld) [#/Vol] 224 10*3/uL 150-450 [facility] Automated blood platelet vikki n volume measurementon 04-24-2020 Platelet mean volume (Bld) [Entitic vol] 7.2 fL 6.3-10.7 [facility] Automated eosinophil %on Eosinophils/100 WBC (Bld) 3.5 % [facility] Automated eosinophil counton 04-24-2020 Eosinophils (Bld) [#/Vol] 0.2 10*3/uL 0.0-0.45 [facility] Automated erythrocyte distri bution width ratioon 04-24-2020 Erythrocyte distribution width (RBC) [Ratio] 13.0 % 11.9-15.3 [facility] Automated erythrocyte mean c orpuscular hemoglobin (mass per erythrocyte)on 04-24-2020 MCH (RBC) [Entitic mass] 27.7 pg 24.7-34.3 [facility] Automated erythrocyte mean c orpuscular hemoglobin concentration measurement (mass/volon 04-24-2020 MCHC (RBC) [Mass/Vol] 33.2 g/dL 32.0-35.0 [facility] Automated erythrocyte mean c orpuscular volumeon 04-24-2020 MCV (RBC) [Entitic vol] 83.3 fL 80-100 [facility] Automated erythrocytes count in urine sediment (number/area)on 04-24-2020 RBC Auto (Urine sed) [#/Area] None seen [HPF] [facility] Automated leukocytes count i n urine sediment (number/area)on 04-24-2020 WBC Auto (Urine sed) [#/Area] 0-1 [HPF] [facility] Automated monocyte %on 04-24 Monocytes/100 WBC (Bld) 6.1 % [facility] Automated neutrophil %on Neutrophils/100 WBC (Bld) 72.8 % [facility] Automated urine color determ inationon 04-24-2020 Color (U) Yellow Yellow [facility] Blood erythrocytes automated count (number/volume)on 04-24-2020 RBC (Bld) [#/Vol] 4.50 10*6/uL 3.60-5.00 [facility] Blood hemoglobin measurement (mass/volume)on 04-24-2020 Hemoglobin (Bld) [Mass/Vol] 12.5 g/dL 11.8-15.4 [facility] Blood leukocytes automated c ount (number/volume)on 04-24-2020 WBC (Bld) [#/Vol] 5.7 10*3/uL 3.8-11.6 [facility] Blood neutrophil count by au tomated method (number/volume)on 04-24-2020 Neutrophils (Bld) [#/Vol] 4.2 10*3/uL 1.8-7.7 [facility] Estimated glomerular filtrat ion rate (GFR) non- Americanon 04-24-2020 GFR/1.73 sq M predicted among non-blacks MDRD (S/P/Bld) [Vol rate/Area] mL/min/{1.73_m2} [facility] Hematocrit [Volume Fraction] of Blood by Automated counton 04-24-2020 Hematocrit (Bld) [Volume fraction] 37.5 % 34.0-46.4 [facility] Otheron 04-24-2020 GFR/1.73 sq M.predicted MDRD (S/P/Bld) [Vol rate/Area] mL/min/{1.73_m2} [facility] Comment on above: GFR estimated refere nce range: According to KDOQI guidelines, <60 ml/min/1.73m2 is sufficient to diagnose a patient with chronic kidney disease. Nucleated RBC/100 WBC (Bld) [Ratio] 0.1 % 0-0.5 [facility] Creatinine Clearance (Chem N/A [facility] Serum or plasma calcium kelly urement (mass/volume)on 04-24-2020 Calcium [Mass/Vol] 9.3 mg/dL 8.2-10.2 [facility] Serum or plasma chloride vikki surement (moles/volume)on 04-24-2020 Chloride [Moles/Vol] 101 mmol/L 95-114 [facility] Serum or plasma creatinine m easurement with calculation of estimated glomerular filtron 04-24-2020 Creatinine [Mass/Vol] 0.88 mg/dL 0.44-1.03 [facility] Serum or plasma glucose kelly urement (mass/volume)on 04-24-2020 Glucose [Mass/Vol] 116 mg/dL 70-100 [facility] Comment on above: ADA recommended refe rence rangeRandom Glucose Reference Range is dependent on time and content of last meal. Glucose of more than 200 mg/dL in a nonstressed, ambulatory subject supports the diagnosis of Diabetes Mellitus. Serum or plasma potassium me asurement (moles/volume)on 04-24-2020 Potassium [Moles/Vol] 3.8 mmol/L 3.5-5.1 [facility] Serum or plasma sodium measu rement (moles/volume)on 04-24-2020 Sodium [Moles/Vol] 136 mmol/L 136-146 [facility] Serum or plasma total carbon dioxide measurement (moles/volume)on 04-24-2020 CO2 [Moles/Vol] 23.1 mmol/L 22.0-30.0 [facility] Serum or plasma urea nitroge n measurement (mass/volume)on 04-24-2020 Urea nitrogen [Mass/Vol] 10 mg/dL 9-23 [facility] Specific gravity of Urine by Automated test stripon 04-24-2020 Specific gravity (U) [Rel density] 1.007 1.001-1.030 [facility] Squamous epithelial cells de tection in urine sediment by light microscopyon 01-05-2021 Epithelial cells.squamous LM Ql (Urine sed) None seen [HPF] [facility] Urinalysison 04-24-2020 Hyaline casts LM Ql (Urine sed) None seen [LPF] [facility] Urine bacteria detection by automated methodon 04-24-2020 Bacteria Auto Ql (U) None seen None Seen [facility] Urine clarity by refractomet ry automatedon 04-24-2020 Clarity Refractometry automated (U) Clear Clear [facility] Urine glucose measurement by automated test strip (mass/volume)on 04-24-2020 Glucose Auto test strip (U) [Mass/Vol] Normal mg/dL Normal [facility] Urine hemoglobin detection b y automated test stripon 04-24-2020 Hemoglobin Auto test strip Ql (U) Negative Negative [facility] Urine ketones measurement by automated test strip (mass/volume)on 04-24-2020 Ketones (U) [Mass/Vol] Negative Negative [facility] Urine leukocyte esterase det ection by automated test stripon 04-24-2020 Leukocyte esterase Auto test strip Ql (U) 1+ Negative [facility] Urine nitrite detection by t est stripon 04-24-2020 Nitrite Ql (U) Negative Negative [facility] Urine pH measurement by auto mated test stripon 04-24-2020 pH (U) 5.5 [pH] 5.0-9.0 [facility] Urine protein measurement by automated test strip (mass/volume)on 04-24-2020 Protein (U) [Mass/Vol] Negative Negative [facility] Urine total bilirubin detect ion by test stripon 04-24-2020 Bilirubin Ql (U) Negative Negative [facility] Urine urobilinogen measureme nt by automated test strip (mass/volume)on 04-24-2020 Urobilinogen (U) [Mass/Vol] Normal mg/dL Normal [facility] CT L-SPINE WO CONTRASTon CT L-SPINE WO CONTRAST Patient Name: LEELEE CEDILLO STUDY: CT L-SPINE WO CONTRAST;; 10/13/2018 12:05 pm INDICATION: Low back pain LUMBAGO. COMPARISON: None. ACCESSION NUMBER(S): [id number] ORDERING CLINICIAN: HAMLET MUKUL TECHNIQUE: Axial sections of the lumbar spine [...] combination with facet joint arthropathy noted causing [id number]-[id number] left neural foramina narrowing. Transpedicular screws of [...] left lateral recess, left neural foramina and [id number] right neural foramina narrowing. IMPRESSION: Postoperative and [...] Electronically signed by: PATRICIA MURRAY MD Normal [facility] SPINE, ENTIRE THORACIC/LUMBA R, INCLUDE SKULL, CERVICAL [...] pm INDICATION: LUMBAGO. COMPARISON: None ACCESSION NUMBER(S): [id number]; [id number] ORDERING CLINICIAN: HAMLET GILMAN FINDINGS: Long radiograph [...] Electronically signed by: ADELE BA MD Normal [facility] SPINE, LUMBOSACRAL; CMPLT(BE NDING)on 10-13-2018 SPINE, LUMBOSACRAL; CMPLT(BENDING) Patient Name: LEELEE CEDILLO STUDY: SPINE, ENTIRE THORACIC/LUMBAR, INCLUDE SKULL, CERVICAL ANSD SACRAL SPINE WHEN PERFORMED 2 OR 3 VIEW; SPINE, LUMBOSACRAL CMPLT(BENDING); 10/13/2018 12:05 pm INDICATION: LUMBAGO. COMPARISON: None ACCESSION NUMBER(S): [id number]; [id number] ORDERING CLINICIAN: HAMLET GILMAN FINDINGS: Long radiograph [...] Electronically signed by: ADELE BA MD Normal [facility] Vital Signs Date Time Vital Sign Value Performing Clinician Facility 06-24-2023 13:130500 Body height 172.7 cm Ghanshyam Lombardi MD Work Phone: [facility] 06-24-2023 13:13-0500 Body weight 87.4 kg Ghanshyam Lombardi MD Work Phone: [facility] 06-24-2023 13:13-0500 Diastolic blood pressure 56 mm[Hg] Ghanshyam Lombardi MD Work Phone: [facility] 06-24-2023 13:13-0500 Heart rate 93 /min Ghanshyam Lombardi MD Work Phone: [facility] 06-24-2023 13:13-0500 Respiratory rate 18 /min Ghanshyam Lombardi MD Work Phone: [facility] 06-24-2023 13:13-0500 SaO2% (BldA) [Mass fraction] 97 % Ghanshyam Lombardi MD Work Phone: [facility] 06-24-2023 13:13-0500 Systolic blood pressure 115 mm[Hg] Ghanshyam Lombardi MD Work Phone: [facility] 05-15-2023 09:00-0500 Body weight 90.18 kg Larry Stephanie Other [facility] Other 05-15-2023 09:00-0500 Diastolic blood pressure 86 mm[Hg] Larryrandy Brown Other [facility] Other 05-15-2023 09:00-0500 SaO2% (BldA) [Mass fraction] 99 % Larry Stephanie Other [facility] Other 05-15-2023 09:00-0500 Systolic blood pressure 148 mm[Hg] Larryrandy Brown Other [facility] Other 05-13-2023 11:15-0500 Body height 175.26 cm Kiran Kessler Other [facility] Other 05-13-2023 11:15-0500 Body mass index (BMI) [Ratio] 29.24 kg/m2 Kiran Kessler Other [facility] Other 05-13-2023 11:15-0500 Body temperature 96.9 [degF] Kiran Kessler Other [facility] Other 05-13-2023 11:15-0500 Body weight 89.81 kg Kiran Kessler Other [facility] Other 05-13-2023 11:15-0500 Diastolic blood pressure 80 mm[Hg] Kiran Mendozajudy Other [facility] Other 05-13-2023 11:15-0500 SaO2% (BldA) [Mass fraction] 99 % Kiran Mendozajudy Other [facility] Other 05-13-2023 11:15-0500 Systolic blood pressure 140 mm[Hg] Kiran Mendozajudy Other [facility] Other 04-03-2023 10:15-0500 Body height 175.26 cm Larry Stephanie Other [facility] Other 04-03-2023 10:15-0500 Diastolic blood pressure 74 mm[Hg] Larry Brown Other [facility] Other 04-03-2023 10:15-0500 SaO2% (BldA) [Mass fraction] 99 % Larryrandy Brown Other [facility] Other 04-03-2023 10:15-0500 Systolic blood pressure 118 mm[Hg] Larry Brown Other [facility] Other 03-25-2023 11:05-0500 Diastolic blood pressure 75 mm[Hg] MD Sara Vick Work Phone: [facility] 03-25-2023 11:05-0500 Heart rate 72 /min MD Sara Vick Work Phone: [facility] 03-25-2023 11:05-0500 Respiratory rate 18 /min MD Sara Vick Work Phone: [facility] 03-25-2023 11:05-0500 SaO2% (BldA) [Mass fraction] 97 % MD Sara Vick Work Phone: [facility] 03-25-2023 11:05-0500 Systolic blood pressure 146 mm[Hg] MD Sara Vick Work Phone: [facility] 03-25-2023 10:27-0500 Inhaled oxygen flow rate 3 L/min MD Sara Vick Work Phone: [facility] 03-25-2023 10:14-0500 Body height 173.99 cm MD Sara Vick Work Phone: [facility] 03-25-2023 10:14-0500 Body weight 88.45 kg MD Sara Vick Work Phone: [facility] 01-27-2023 14:30-0400 Body height 175.26 cm Dominique Shane Other [facility] Other 01-27-2023 14:30-0400 Diastolic blood pressure 70 mm[Hg] Dominique Shane Other [facility] Other 01-27-2023 14:30-0400 SaO2% (BldA) [Mass fraction] 98 % Dominique Shane Other [facility] Other 01-27-2023 14:30-0400 Systolic blood pressure 118 mm[Hg] Dominique Shane Other [facility] Other 01-09-2023 10:15-0400 Body height 175.26 cm Larry Brown Other [facility] Other 01-09-2023 10:15-0400 Body mass index (BMI) [Ratio] 29.56 kg/m2 Larry Brown Other [facility] Other 01-09-2023 10:15-0400 Body weight 90.81 kg Larry Brown Other [facility] Other 01-09-2023 10:15-0400 Diastolic blood pressure 78 mm[Hg] Larry Brown Other [facility] Other 01-09-2023 10:15-0400 SaO2% (BldA) [Mass fraction] 98 % Larry Brown Other [facility] Other 01-09-2023 10:15-0400 Systolic blood pressure 130 mm[Hg] Larry Brown Other [facility] Other 12-12-2022 09:30-0400 Body height 175.26 cm Larry Brown Other [facility] Other 12-12-2022 09:30-0400 Body mass index (BMI) [Ratio] 29.77 kg/m2 Larry Brown Other [facility] Other 12-12-2022 09:30-0400 Body weight 91.45 kg Larry Brown Other [facility] Other 12-12-2022 09:30-0400 Diastolic blood pressure 74 mm[Hg] Larry Brown Other [facility] Other 12-12-2022 09:30-0400 SaO2% (BldA) [Mass fraction] 99 % Larry Brown Other [employer] Other 12-12-2022 09:30-0400 Systolic blood pressure 122 mm[Hg] Larry Brown Other [employer] Other 09-19-2022 12:00-0400 Body height 175.26 cm Larry Brown Other [facility] [employer] Other 09-19-2022 12:00-0400 Body mass index (BMI) [Ratio] 30.8 kg/m2 Larry Brown Other [facility] [employer] Other 09-19-2022 12:00-0400 Body weight 94.62 kg Larry Brown Other [facility] [employer] Other 09-19-2022 12:00-0400 SaO2% (BldA) [Mass fraction] 95 % Larry Brown Other [facility] [employer] Other 09-18-2022 10:40-0400 Body height 172.7 cm Perfecto Burch MD Work Phone: [facility] 09-18-2022 10:40-0400 Body mass index (BMI) [Ratio] 31.26 kg/m2 Perfecto Burch MD Work Phone: [facility] 09-18-2022 10:40-0400 Body temperature 96.4 [degF] Perfecto Burch MD Work Phone: [facility] 09-18-2022 10:40-0400 Body weight 93.26 kg Perfecto Burch MD Work Phone: [facility] 07-27-2022 15:38-0400 Hourly Rounding Francisco Ottoniel [facility] 07-27-2022 15:38-0400 Promise to Return Francisco Ottoniel [facility] 07-27-2022 14:38-0400 Hourly Rounding Francisco Ottoniel [facility] 07-27-2022 14:38-0400 Promise to Return Francisco Ottoniel [facility] 07-27-2022 13:38-0400 Hourly Rounding Francisco Ottoniel [facility] 07-27-2022 13:38-0400 Promise to Return Francisco Ottoniel [facility] 07-27-2022 12:08-0400 Heart rate 106 /min Francisco Ottoniel [facility] 07-27-2022 12:08-0400 SaO2% (BldA) [Mass fraction] 100 % Francisco Ottoniel [facility] 07-27-2022 12:07-0400 Diastolic blood pressure 79 mm[Hg] Francisco Ottoniel [facility] 07-27-2022 12:07-0400 Mean blood pressure 103 mm[Hg] Francisco Ottoniel [facility] 07-27-2022 12:07-0400 Systolic blood pressure 151 mm[Hg] Francisco Ottoniel [facility] 07-27-2022 12:06-0400 Body temperature 97.16 [degF] Francisco Ottoniel [facility] 07-27-2022 07:46-0400 Heart rate 82 /min Francisco Ottoniel [facility] 07-27-2022 07:46-0400 SaO2% (BldA) [Mass fraction] 97 % Francisco Ottoniel [facility] 07-27-2022 07:46-0400 Diastolic blood pressure 81 mm[Hg] Francisco Ottoniel [facility] 07-27-2022 07:46-0400 Mean blood pressure 116 mm[Hg] Francisco Ottoniel [facility] 07-27-2022 07:46-0400 Systolic blood pressure 186 mm[Hg] Francisco Ottoniel [facility] 07-27-2022 07:45-0400 Body temperature 97.52 [degF] Francisco Ottoniel [facility] 07-27-2022 01:46-0400 Heart rate 89 /min Francisco Ottoniel [facility] 07-27-2022 01:46-0400 SaO2% (BldA) [Mass fraction] 96 % Francisco Ottoniel [facility] 07-27-2022 01:45-0400 Diastolic blood pressure 67 mm[Hg] Francisco Ottoniel [facility] 07-27-2022 01:45-0400 Mean blood pressure 89 mm[Hg] Francisco Ottoniel [facility] 07-27-2022 01:45-0400 Systolic blood pressure 134 mm[Hg] Francisco Ottoniel [facility] 07-27-2022 01:45-0400 Body temperature 98.06 [degF] Francisco Ottoniel [facility] 07-27-2022 01:45-0400 Blood Pressure Location Francisco Ottoniel [facility] 07-27-2022 01:45-0400 Respiratory rate 18 /min Francisco Ottoniel [facility] 07-26-2022 20:00-0400 Respiratory rate 16 /min Francisco Ottoniel [facility] 07-26-2022 17:20-0400 Blood Pressure Location Francisco Ottoniel [facility] 07-26-2022 17:20-0400 Heart rate 78 /min Francisco Ottoniel [facility] 07-26-2022 15:30-0400 Respiratory rate 12 /min Francisco Ottoniel [facility] 07-26-2022 15:00-0400 Mean blood pressure 122 mm[Hg] Francisco Ottoniel [facility] 07-26-2022 15:00-0400 Respiratory rate 8 /min Francisco Ottoniel [facility] 07-26-2022 14:30-0400 Mean blood pressure 112 mm[Hg] Francisco Ottoniel [facility] 07-26-2022 14:30-0400 Respiratory rate 12 /min Francisco Ottoniel [facility] 07-26-2022 13:30-0400 Mean blood pressure 95 mm[Hg] Francisco Ottoniel [facility] 07-26-2022 11:35-0400 gluc 105 mg/dL Francisco Ottoniel [facility] 07-26-2022 11:35-0400 gluc Francisco Ottoniel [facility] 07-26-2022 11:35-0400 Heart rate 72 /min Francisco Ottoniel [facility] 07-26-2022 11:35-0400 Respiratory rate 18 /min Francisco Ottoniel [facility] 05-02-2022 10:00-0500 Body height 175.26 cm Larry Brown Other [facility] [employer] Other 05-02-2022 10:00-0500 Body mass index (BMI) [Ratio] 31.89 kg/m2 Larry Carrilloky Other [facility] [employer] Other 05-02-2022 10:00-0500 Body weight 97.98 kg Larry Carrilloky Other [facility] [employer] Other 05-02-2022 10:00-0500 Diastolic blood pressure 80 mm[Hg] Larry Brown Other [facility] [employer] Other 05-02-2022 10:00-0500 Systolic blood pressure 134 mm[Hg] Larry Brown Other [facility] [employer] Other 03-08-2022 17:00-0500 Diastolic blood pressure 117 mm[Hg] Wm Yakov [facility] 03-08-2022 17:00-0500 Mean blood pressure 131 mm[Hg] Wm Yakov [facility] 03-08-2022 17:00-0500 SaO2% (BldA) [Mass fraction] 95 % Wm Yakov [facility] 03-08-2022 17:00-0500 Systolic blood pressure 160 mm[Hg] Mw Yakov [facility] 03-08-2022 16:30-0500 Diastolic blood pressure 85 mm[Hg] Wm Yakov [facility] 03-08-2022 16:30-0500 Heart rate 75 /min Wm Yakov [facility] 03-08-2022 16:30-0500 Mean blood pressure 94 mm[Hg] Wm Yakov [facility] 03-08-2022 16:30-0500 Respiratory rate 15 /min Wm Yakov [facility] 03-08-2022 16:30-0500 SaO2% (BldA) [Mass fraction] 98 % Wm Yakov [facility] 03-08-2022 16:30-0500 Systolic blood pressure 112 mm[Hg] Wm Yakov [facility] 03-08-2022 16:10-0500 Diastolic blood pressure 74 mm[Hg] Wm Yakov [facility] 03-08-2022 16:10-0500 Heart rate 93 /min Wm Yakov [facility] 03-08-2022 16:10-0500 Mean blood pressure 90 mm[Hg] Wm Yakov [facility] 03-08-2022 16:10-0500 Respiratory rate 14 /min Wm Yakov [facility] 03-08-2022 16:10-0500 SaO2% (BldA) [Mass fraction] 98 % Wm Yakov [facility] 03-08-2022 16:10-0500 Systolic blood pressure 122 mm[Hg] Wm Yakov [facility] 03-08-2022 15:15-0500 Respiratory rate 18 /min Wm Yakov [facility] 03-08-2022 15:00-0500 Hourly Rounding Wm Yakov [facility] 03-08-2022 15:00-0500 Promise to Return Wm Yakov [facility] 03-08-2022 14:45-0500 Respiratory rate 20 /min Wm Yakov [facility] 03-08-2022 14:15-0500 Respiratory rate 20 /min Wm Yakov [facility] 03-08-2022 14:14-0500 Hourly Rounding Wm Yakov [facility] 03-08-2022 14:14-0500 Promise to Return Wm Yakov [facility] 03-08-2022 13:54-0500 Heart rate 99 /min Wm Nagy [facility] 03-08-2022 13:37-0500 Body temperature 97.7 [degF] Wm Nagy [facility] 03-08-2022 13:37-0500 Heart rate 104 /min Wm Nagy [facility] 03-08-2022 13:00-0500 Hourly Rounding Wm Nagy [facility] 03-08-2022 13:00-0500 Promise to Return Wm Nagy [facility] 03-07-2022 11:00-0500 Body height 175.26 cm Larry Carrilloky Other [facility] [employer] Other 03-07-2022 11:00-0500 Body mass index (BMI) [Ratio] 32.54 kg/m2 Larry Stephanie Other [employer] Other 03-07-2022 11:00-0500 Body weight 99.97 kg Larry Brown Other [employer] Other 03-07-2022 11:00-0500 SaO2% (BldA) [Mass fraction] 99 % Larry Brown Other [employer] Other 06-20-2017 09:19-0500 PAIN LEVEL 0 {score} Praveen Whatleykrissyalexys Bynum 06-20-2017 06:29-0500 PAIN LEVEL 0 {score} Praveen Lopez [place] 06-20-2017 06:25-0500 PAIN LEVEL 6 {score} Praveen Bynum 06-20-2017 06:21-0500 Body Temperature 98.1 [degF] Praveen Bnyum 06-20-2017 06:21-0500 BP Diastolic 78 mm[Hg] Praveen [...] Date Encounter Type Care Provider Facility Start: 07-15-2023 End: 07-15-2023 ambulatory ANNIE JIMENEZ Not Available Start: 07-13-2023 End: 07-13-2023 ambulatory GHANSHYAM LOMBARDI Facility:[facility] Start: 07-13-2023 End: 07-13-2023 Subsequent hospital visit by physician [facility] Dasia Work Phone: Radiology Comment on above: Chronic bilateral lo w back pain with bilateral sciatica [M54.42, M54.41, G89.29] Start: 06-29-2023 End: 06-29-2023 ambulatory ANNIE JIMENEZ Not Available Start: 06-24-2023 End: 06-24-2023 ambulatory GHANSHYAM LOMBARDI Facility:[facility] Start: 06-24-2023 End: 06-24-2023 Patient encounter procedure Ghanshyam Lombardi MD Work Phone: [facility] [place] Comment on above: 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 Start: 05-22-2023 End: 05-22-2023 ambulatory MD Sara Vick Work Phone: [facility] Work Phone: Start: 05-22-2023 End: 05-22-2023 Patient encounter procedure MD Sara Vick Work Phone: [facility]-Ultrasound [facility] [place] Work Phone: Start: 05-20-2023 End: 05-20-2023 ambulatory Sara Vick Facility:[facility] Start: 05-20-2023 Registered Recurring MD Gideon Vick Work Phone: [facility]-[employer] [address] Start: 05-15-2023 End: 05-15-2023 ambulatory Larry Brown Other [employer] Other Start: 05-15-2023 Office outpatient vi sit 25 minutes Larry Brown [facility] Start: 05-13-2023 End: 05-13-2023 ambulatory Kiran Kessler Other [employer] Other Start: 05-13-2023 Office outpatient ne w 60 minutes Kiran Kessler [facility] Start: 04-16-2023 End: 04-16-2023 ambulatory Dominique Shane Other [employer] Other Start: 04-16-2023 Telephone encounter Dominique Shane [facility] Start: 04-03-2023 End: 04-03-2023 ambulatory Larryrandy Brown Other [employer] Other Start: 04-03-2023 Office outpatient vi sit 15 minutes Larry Brown [facility] Start: 04-03-2023 End: 04-03-2023 Patient encounter procedure MD Sara Vick Work Phone: Replaced By [facility] [place] Work Phone: Start: 03-25-2023 (PROC) PROCEDURE Larry Brown [facility] Start: 03-25-2023 End: 03-25-2023 ambulatory Sara Vick Facility:[facility] Start: 03-25-2023 End: 03-25-2023 Admission to same day surgery center MD Sara Vick Work Phone: [facility]-Digestive Health Work Phone: Start: 03-25-2023 End: 03-25-2023 ambulatory MD Sara Vick Work Phone: [facility] Work Phone: Start: 03-06-2023 End: 03-06-2023 Patient encounter procedure MD Sara Vick Work Phone: Replaced By [facility] [place] Work Phone: Start: 02-10-2023 End: 02-10-2023 ambulatory Dominique Shane Other [employer] Other Start: 02-10-2023 Telephone encounter Dominique Shane [facility] Start: 01-27-2023 End: 01-27-2023 ambulatory Dominique Shane Other [employer] Other Start: 01-27-2023 Office outpatient vi sit 25 minutes Dominique Shane [facility] Start: 01-27-2023 Telephone encounter Larry Stephanie [facility] Start: 01-09-2023 End: 01-09-2023 ambulatory Larry Stephanie Other [employer] Other Start: 01-09-2023 Office outpatient vi sit 25 minutes Larry Stephanie [facility] Start: 12-12-2022 End: 12-12-2022 ambulatory Larry Stephanie Other [employer] Other Start: 12-12-2022 Office outpatient vi sit 25 minutes Larry Stephanie [facility] Start: 11-22-2022 End: 11-22-2022 Emergency department patient visit [facility] Start: 09-19-2022 End: 09-19-2022 ambulatory Larry Stephanie Other [employer] Other Start: 09-19-2022 Office outpatient vi sit 25 minutes Larry Stephanie [facility] Start: 09-18-2022 ambulatory PERFECTO BURCH [facility] Start: 09-18-2022 End: 09-18-2022 Office outpatient new 30 minutes Perfecto Burch MD Work Phone: [facility] Comment on above: 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, sequela (Primary Dx) Start: 09-18-2022 End: 09-18-2022 Subsequent hospital visit by physician Perfecto Burch MD Work Phone: [facility] Start: 09-17-2022 ambulatory ADELE FLEMING Faci lity:[facility] Start: 09-10-2022 End: 09-10-2022 ambulatory Larry Brown Facility:[facility] Start: 09-09-2022 End: 09-10-2022 ambulatory ADELE FLEMING Facility:[facility] Start: 09-08-2022 End: 09-09-2022 ambulatory Alley Naranjo [facility] Start: 08-18-2022 End: 08-19-2022 ambulatory ADELE FLEMING Facility:[facility] Start: 08-13-2022 ambulatory PERFECTO BURCH [facility] Start: 08-12-2022 End: 08-13-2022 ambulatory ADELE FLEMING Facility:[facility] Start: 08-08-2022 End: 08-09-[address] ALFRED UMAÑA Facility:[facility] Start: 08-01-2022 End: 08-02-2022 ambulatory ADELE FLEMING Facility:[facility] Start: 07-26-2022 End: 07-27-2022 ambulatory Julio Ferrara [facility] Start: 07-26-2022 End: 07-27-2022 Observation Francisco S Ottoniel [facility] Start: 07-25-2022 Encounter for preprocedural cardiovascular examination ADELE FLEMING [facility] Start: 07-25-2022 Encounter for preprocedural laboratory examination ADELE FLEMING [facility] Start: 07-24-2022 End: 07-25-2022 ambulatory ADELE [...] Start: 06-19-2022 End: 06-19-2022 ambulatory Sara Vick Facility:[facility] Start: 06-19-2022 End: 06-19-2022 ambulatory MD Sara Vick Work Phone: [facility] Work Phone: Start: 06-19-2022 End: 06-19-2022 Discharged Recurring MD Sara Vick Work Phone: [facility] [place] Work Phone: Start: 06-13-2022 End: 06-14-2022 ambulatory [...] 05-02-2022 End: 05-02-2022 ambulatory Larry Brown Other [employer] Other Start: 05-02-2022 Office outpatient vi sit 25 minutes Larry Brown [facility] [place] Start: 05-01-2022 End: 05-02-2022 ambulatory ADELE FLEMING Facility:[facility] Start: 04-22-2022 End: 04-23-2022 ambulatory ADELE FLEMING Facility:[facility] Start: 04-14-2022 End: 04-15-2022 ambulatory DEEPALI JANSEN Facility:[facility] Start: 04-08-2022 (PROC) PROCEDURE Larry Clayie [facility] Start: 04-08-2022 End: 04-08-2022 ambulatory Larry Brown Other [employer] Other Start: 03-31-2022 End: 04-01-[address] ALFRED UMAÑA Facility:[facility] Start: 03-08-2022 End: 03-08-2022 Emergency department patient visit Wm Nagy [place] Start: 03-08-2022 End: 03-08-2022 Emergency department patient visit Wm Nagy [facility] Start: 03-07-2022 End: 03-07-2022 ambulatory Larry Brown Other [employer] Other Start: 03-07-2022 Office consultation new/estab patient 60 min Larry Brown [facility] Start: 03-06-2022 End: 03-07-[address] SARA VICK . Facility:[facility] Start: 01-03-2022 End: 01-03-[address] SARA VICK . Facility:[facility] Start: 12-09-2021 End: 12-10-2021 ambulatory SHAWANDA LITTLE Facility:[facility] Start: 11-05-2021 End: 11-06-2021 ambulatory ADELE FLEMING Facility:[facility] Start: 10-07-2021 End: 10-07-2021 ambulatory PO SUAREZ . Facility:[facility] Start: 05-04-2020 End: 05-04-2020 Patient encounter procedure Sara Vick -Pre-Surgical Testing Start: 05-02-2020 Registered Recurring Sara Vick -P hysical Therapy [facility] [place] Start: 04-24-2020 End: 04-24-2020 Patient encounter procedure Sara Vick -Pre-Surgical Testing Start: 02-01-2020 End: 02-01-2020 Patient encounter procedure Sara Vick -[facility] Start: 06-29-2018 Patient encounter procedure Sara~[id number] UNKNOWN Hoy [place] Start: 12-11-2017 End: 12-12-2017 Patient encounter DEFAULT PHYSICIAN Facility:[facility] Procedures Date Procedure Procedure Detail Performing Clinician Start: 07-13-2023 Ct lumbar spine w/o contrast material Ghanshyam Lombardi MD Work Phone: Start: 06-24-2023 End: 06-24-2023 Radex spine lumbosacral minimum 4 views Ros Cedeño [employer]DIRECTOR OF [employer]UC[employer] Work Phone: Start: 03-25-2023 Local anesthetic sac [...] Yakov Comment on above: bilateral L3-S1 FJI 50% relief Start: 01-21-2013 Injection of facet j oint using fluoroscopic guidance Wm Yakov Comment on above: bilateral L3-S1 FJI 0% relief that day, next day 40% relief and 50-60% relief Start: 01-03-2013 Epidural injection o f lumbar spine using fluoroscopic guidance iPling Comment on above: L5-S1 50% relief Start: 09-02-2012 Epidural injection o f lumbar spine using fluoroscopic guidance Wm Yakov Comment on above: L5-S1 left,, no reli ef, increased pain Start: 07-01-2011 History of repair of musculotendinous cuff of shoulder Status post rotator cuff surgery, right Ghanshyam Lombardi MD Work Phone: Start: 04-20-2011 Excision of ganglion cyst [place] [...] right knee scope wit h partial meniscectomy [place] Nagy Plan of Treatment Date Care Activity Detail Author Start: 06-23-2024 BP Controlled (<130/80) BP Controlled (<130/80) [facility] Start: 05-22-2023 Pulse volume recorder pneumoplethysmography US arterial pvr rest LE [facility] Start: 05-22-2023 [facility] Start: 05-22-2023 Duplex scan of lower limb veins US venous duplex LE BI [facility] Start: 05-22-2023 US Lower extremity vein - bilateral [facility] Start: 04-20-2023 Advance Directive Discussion Advance Directive Discussion [facility] Start: 04-20-2023 Depression Assessment Depression Assessment [facility] Start: 03-25-2023 [facility] Start: 02-28-2023 Screening for malignant neoplasm of breast Mammogram Screening [facility] Start: 12-19-2022 Covid-19 Vaccine () Covid-19 Vaccine () [facility] Start: 12-19-2022 Influenza vaccination Influenza Vaccine (#1) [facility] Start: 01-28-2022 COVID-19 VACCINE (5 - Booster for Pfizer series) COVID-19 VACCINE (5 - Booster for Pfizer series) [facility] Start: 08-24-2019 Screening for malignant neoplasm of breast MAMMOGRAM SCREENING DISCUSSION [facility] Start: 12-20-2016 Screening for osteoporosis Bone Density Screening [facility] Start: 06-17-2014 Diabetes Screening Diabetes Screening [facility] Start: 2011 RSV Vaccine (1 - 1-dose 60+ series) RSV Vaccine (1 - 1-dose 60+ series) [facility] Start: 12-20-2001 Shingrix Vaccine (1 of 2) Shingrix Vaccine (1 of 2) [facility] Start: 12-20-2001 Zoster vaccine hzv live for subcutaneous use ZOSTER (SHINGLES) VACCINE (1 of 2) [facility] Start: 12-20-1996 Lipid panel Lipid Screening [facility] Start: 12-20-1996 Screening for malignant neoplasm of colon [facility] Start: 1991 Lipid panel LIPID SCREENING [facility] Start: 12-20-1972 Screening for malignant neoplasm of cervix CERVICAL CANCER SCREENING DISCUSSION [facility] Start: 12-20-1970 Third diphtheria, tetanus and acellular pertussis (DTaP) vaccination TDAP (ADULT) [facility] Start: 12-20-1970 Urine microalbumin profile DTaP,Tdap,Td Vaccine (1 - Tdap) [facility] Start: 12-20-1969 Annual PCP Team Chronic Disease Visit Annual PCP Team Chronic Disease Visit [facility] Start: 1950 Hepatitis C screening HEPATITIS C VIRUS SCREENING [facility] Start: 1950 Screening for osteoporosis DEXA SCAN DISCUSSION [facility] Start: 1950 Tetanus vaccination TETANUS [facility] End: 07-23-2024 CT Lumbar spine WO contrast CT LUMBAR SPINE WO IVCON Radiology Routine Chronic bilateral low back pain with bilateral sciatica 1 Occurrences starting 06/24/2023 until 07/23/2024 [facility] Work Phone: Comment on above: 1 Occurrences starting 06/24/2023 until 07/23/2024 End: 07-23-2024 MR Thoracic spine WO contrast MRI THORACIC SPINE WO IVCON Radiology Routine 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 1 Occurrences starting 06/24/2023 until 07/23/2024 [facility] Work Phone: Comment on above: 1 Occurrences starting 06/24/2023 until 07/23/2024 Patient Education Stephanie Non Diagn ostic Block [facility] Work Phone: Patient referral [facility] Work Phone: XR Knee - left 3 Views XR KNEE L EFT 3 VIEWS Imaging Routine Pain in prosthetic joint, sequela Ordered: 09/16/2022 [facility] Comment on above: Ordered: 09/16/2022 XR Pelvis and Hip - left Views X R HIP WITH PELVIS LEFT Imaging Routine Pain in prosthetic joint, sequela 09/18/2022 10:11 AM EDT [facility] Work Phone: [facility] Immunizations Immunization Date Immunization Notes Care Provider Fa cili 02-11-2022 influenza virus vacc ine, unspecified formulation Ghanshyam Lombardi MD Work Phone: [facility] 07-12-2020 COVID-19, mRNA, LNP- S, PF, 30 mcg/0.3 mL dose Wm Nagy [facility] Comment on above: Reason for Medicatio n: Prophylaxis 06-14-2020 COVID-19, mRNA, LNP- S, PF, 30 mcg/0.3 mL dose Wm Nagy [facility] Comment on above: Reason for Medicatio n: Prophylaxis 02-18-2018 pneumococcal polysaccharide vaccine, 23 valent Wm Nagy [facility] 06-18-2017 tuberculin skin test ; unspecified formulation Praveen Lopez [place] 02-05-2017 pneumococcal conjuga te vaccine, 13 valent Wm Nagy [facility] 10-20-2012 pneumococcal polysaccharide vaccine, 23 valent Wm Nagy [facility] Payers Date Payer Category Payer Private Health Insurance 2022 Self-pay [id number] 2020 Unknown [id number] 2018 Medicare [id number] 1959 Private Health Insurance [id number] 1951 Unknown [id number] 2.16.84 0.1.913962.3.579.2.727 1950 Unknown [id number] 2.16.8 40.1.131078.3.579.2.159 1951 Unknown [id number] 2.16.84 0.1.580409.3.579.2.593 1951 Unknown [id number] 2.16.84 0.1.905281.3.579.2.593 1951 Unknown [id number] 2.16.84 0.1.572717.3.579.2.593 1951 Unknown [id number] 2.16.84 0.1.370994.3.579.2.593 1951 Unknown [id number] 2.16.84 0.1.449148.3.579.2.593 1951 Unknown [id number] 2.16.84 0.1.578850.3.579.2.593 1951 Unknown [id number] 2.16.84 0.1.973556.3.579.2.593 1951 Unknown [id number] 2.16.84 0.1.562794.3.579.2.593 1951 Unknown [id number] 2.16.84 0.1.998596.3.579.2.593 1951 Unknown [id number] 2.16.84 0.1.635179.3.579.2.593 1951 Unknown [id number] 2.16.84 0.1.776312.3.579.2.593 1951 Unknown [id number] 2.16.84 0.1.778478.3.579.2.593 1951 Unknown [id number] 2.16.84 0.1.204429.3.579.2.593 1951 Unknown [id number] 2.16.84 0.1.775058.3.579.2.593 1951 Unknown [id number] 2.16.84 0.1.398441.3.579.2.593 1951 Unknown [id number] 2.16.84 0.1.215441.3.579.2.593 1951 Unknown [id number] 2.16.84 0.1.774078.3.579.2.593 1951 Unknown [id number] 2.16.84 0.1.187287.3.579.2.593 1951 Unknown [id number] 2.16.84 0.1.951124.3.579.2.593 1951 Unknown [id number] 2.16.84 0.1.247932.3.579.2.593 1951 Unknown [id number] 2.16.84 0.1.623890.3.579.2.593 1951 Unknown [id number] 2.16.84 0.1.706843.3.579.2.593 1951 Unknown [id number] 2.16.84 0.1.276481.3.579.2.593 1951 Unknown [id number] 2.16.84 0.1.904183.3.579.2.593 1951 Unknown [id number] 2.16.84 0.1.516629.3.579.2.593 1951 Unknown [id number] 2.16.84 0.1.301957.3.579.2.593 1951 Unknown [id number] 2.16.84 0.1.728566.3.579.2.593 1951 Unknown [id number] 2.16.84 0.1.737425.3.579.2.593 1951 Unknown [id number] 2.16.84 0.1.633459.3.579.2.593 1951 Unknown [id number] 2.16.8 40.1.260355.3.579.2.983 1951 Unknown [id number] 2.16.8 40.1.026432.3.579.2.983 1951 Unknown [id number] 2.16.8 40.1.859918.3.579.2.983 1951 Unknown [id number] 2.16.8 40.1.749948.3.579.2.727 1951 Unknown [id number] 2.16.8 40.1.392590.3.579.2.727 1951 Unknown [id number] 2.16.8 40.1.032657.3.579.2.727 1951 Unknown [id number] 2.16.8 40.1.130950.3.579.2.727 1951 Unknown [id number] 2.16.84 0.1.499732.3.579.2.1259 1951 Unknown [id number] 2.16.84 0.1.480017.3.579.2.1259 Unknown Unknown [id number] Unknown [id number] 2.16.8 40.1.152166.3.579.2.531 Unknown [id number] 2.16.8 40.1.019041.3.579.2.531 Unknown [id number] 2.16.8 40.1.293210.3.579.2.531 Unknown [id number] 2.16.8 40.1.269034.3.579.2.531 Unknown [id number] 2.16.8 40.1.832586.3.579.2.531 Social History Date Type Detail Facility Start: 06-18-2017 Unknown if ever smoked [facility] Start: 04-24-2020 End: 06-24-2023 Tobacco smoking status NHIS Never smoked tobacco (finding) [facility] Start: 1950 Sex Assigned At Female F [facility] Start: 06-24-2023 Sex Assigned At F [facility] Start: 09-18-2022 Tobacco use and exposure Smokeless tobacco non-user [facility] Start: 09-18-2022 End: 06-24-2023 Alcohol intake [facility] Start: 09-18-2022 Alcohol Comment occasional [facility] Start: 1950 Sex Assigned At Not on file [facility] Start: 06-24-2023 Alcohol intake [facility] National Score (1-100), lower number is lower risk 62 [facility] Medical Equipment Procedure Code Equipment Code Equipment Origin al Text Equipment Identifier Dates Arthroplasty, knee, total, minimally invasive Orthopaedic cement, non-medicated ()[id number] FDA Start: 05-07-2020 Arthroplasty, knee, total, minimally invasive Uncoated knee femur prosthesis, metallic ()[id number] FDA Start: 05-07-2020 Arthroplasty, knee, total, minimally invasive Tibial insert ()[id number] FDA Start: 05-07-2020 Arthroplasty, knee, total, minimally invasive Uncoated knee tibia prosthesis, metallic ()[id number] FDA Start: 05-07-2020 Arthroplasty, knee, total, minimally invasive Polyethylene patella prosthesis ()[id number] FDA Start: 05-07-2020 Goals Date Patient Goal Desired Activity /State Functional Status Date Assessment Result Facility 07-26-2022 Functional Status No [facility] 07-26-2022 Functional Status [facility] 03-08-2022 Functional Status No [facility] Clinical Notes 10-07-2021 to 07-13-2023 Torrie Abraham RT(R) - 07/13/2023 10:40 AM Ghanshyam Coto MD - 06/24/2023 1:40 PM EST Note Date & Type Note Facility 07-13-2023 Note HNO ID: [id number] Author: TORRIE ABRAHAM RT(R) Service: Radiology Author Type: Technologist Type: Progress Notes Filed: 07/13/2023 10:53 Note Text: Radiology Service Progress Note PATIENT NAME: Leelee Cedillo DATE OF SERVICE: July 13, 2023 TIME: 10:44 AM PATIENT IDENTITY VERIFICATION COMPLETED USING TWO (2) IDENTIFIERS: Name and Date of confirmed by patient verbally and Name and Date of confirmed by identification band. FALL SCREENING: Has the patient had 2 falls in the last year or 1 fall with injury or currently using an Ambulatory Assistive Device (Walker, Cane, Wheelchair, Crutches, etc.)? No PATIENT GENDER DATA: Female. status: : No status: NO. PATIENT RELEVANT IMPLANT DATA REVIEWED: Not Applicable PATIENT PRESENTS WITH AN IMPLANTABLE OR ATTACHED HOG GRADER: No RADIOLOGY DEPARTMENT: CT; Exam(s) Completed: Spine PERIPHERAL IV DATA: Not applicable SIGNED BY: RT Se(R) July 13, 2023 10:44 AM [facility] 07-13-2023 History of Present illness Narrative Radiology Service Progress Note PATIENT NAME: Leelee Cedillo DATE OF SERVICE: July 13, 2023 TIME: 10:44 AM PATIENT IDENTITY VERIFICATION COMPLETED USING TWO (2) IDENTIFIERS: Name and Date of confirmed by patient verbally and Name and Date of confirmed by identification band. FALL SCREENING: Has the patient had 2 falls in the last year or 1 fall with injury or currently using an Ambulatory Assistive Device (Walker, Cane, Wheelchair, Crutches, etc.)? No PATIENT GENDER DATA: Female. status: : No status: NO. PATIENT RELEVANT IMPLANT DATA REVIEWED: Not Applicable PATIENT PRESENTS WITH AN IMPLANTABLE OR ATTACHED HOG GRADER: No RADIOLOGY DEPARTMENT: CT; Exam(s) Completed: Spine PERIPHERAL IV DATA: Not applicable SIGNED BY: RT Se(Bryce) July 13, 2023 10:44 AM documented in this encounter [facility] 06-24-2023 Note HNO ID: [id number] Author: GHANSHYAM LOMBARDI MD Service: ? Author [...] discussion. 30 minutes spent Ghanshyam Lombardi MD [facility] 06-24-2023 History of Present illness Narrative [...] Ghanshyam Lombardi MD documented in this encounter [facility] 05-15-2023 Evaluation note Encounter Date Diagnosis Assessment [...] In the meantime, she can continue taking Phil Campbell as needed all as well as Gabapentin [...] and no personal patient information was compromised. [facility] Other 01-24-2024 Evaluation note* Encounter Date Diagnosis [...] agrees with plan all questions were addressed. [facility] Other 12-28-2023 Evaluation note* Encounter Date Diagnosis Assessment Notes Treatment Notes Treatment Clinical Notes Mar, Lumbar radiculopathy (ICD-10 - M54.16) 72 year old female evaluated via telephonic call for follow up and medication refill for chronic pain. She voices complaints of low back pain with intermittent radiation down the right lower extremity. She continues taking Phil Campbell with relief and is requesting a refill of this today. I discussed different treatment options in detail with the patient. She feels medication is managing her pain and does not wish to proceed with injections at this time. I encouraged the patient to start physical therapy as previously discussed. She can also continue taking medications as prescribed and I will refill her Phil Campbell as she feels this provides an element [...] pain (ICD-10 - G89.29) Continue medication management. [facility] Other 12-15-2023 Evaluation note* Encounter Date Diagnosis [...] pain (ICD-10 - G89.29) Continue medication management. [facility] Other 10-24-2023 Evaluation note* Encounter Date Diagnosis Assessment Notes Treatment Notes Treatment Clinical Notes Jan, Lumbar radiculopathy (ICD-10 - M54.16) [facility] Other 10-10-2023 Evaluation note* Encounter Date Diagnosis [...] regarding this. Meanwhile, I will refill her Phil Campbell as it does provide an element of [...] educated on the risks and benefits of snf opioid use. Hydrocodone/Acetamin ophen was refilled today, opioid risk assessment was done as well as pill count. Patient is compliant with opioid medication. The patient denies any opioid related side effects. [facility] Other 09-22-2023 Evaluation note* Encounter Date Diagnosis [...] educated on the risks and benefits of termite treater helper opioid use. Hydrocodone/Aceta minophen was refilled today, opioid risk assessment was done as well as pill count. Patient is compliant with opioid medication. The patient denies any opioid related side effects. Patients last urine drug screen was positive for alcohol, she is counselled against consuming alcohol. [facility] Other 08-25-2023 Evaluation note* Encounter Date Diagnosis [...] M51.36) Stable, follow up in 4 weeks. [facility] Other 06-02-2023 Evaluation note* Encounter Date Diagnosis [...] nerve blocks in the future if needed. [facility] Other 06-01-2023 History of Present illness Narrative* Connie RamirezLAZARO - 09/18/2022 10:10 AM EDT Ortho Nurse [...] 09/18/2022 10:58 AM Patient: Leelee Cedillo MR#: [id number] : 1950 Age: 71 y.o. Referring Physician: [...] repair GALL BLADDER SURGERY 1999 BACK SURGERY 6-4622-4-2018- FOOT SURGERY [id number] Family History: Her family history is not [...] [x]cane, []bracing Are you followed by a clipper counters? [] [x] Name: Are you followed by [...] repair GALL BLADDER SURGERY 1999 BACK SURGERY 9-4612-8-2017- FOOT SURGERY [id number] No family history on file. Social History [...] Rash Flagyl [Metronidazole] Dyspepsia [facility]Result Comment: Electronically Signed By: Rachel SALTER\.br\Date and Time Signed: 07/27/22 15:21 EDT\.br\Electronically Co-Signed By: Ottoniel RUFF, Francisco Beck\.br\Date and Time Co- Signed: 07/27/22 17:04 [id number] Hospital Discharge instructions Patient Education 07/27/2022 15:20:26 [...] Follow these instructions at home: Medicines Take kdnt-esc-laeznal and prescription medicines only as told by [...] 04/06/2006 Document Revised: 07/29/2019 Document Reviewed: 02/23/2019 [employer] Patient Education 2020 [employer]. 07/27/2022 15:20:26 Vasovagal Syncope, Pediatric Vasovagal Syncope, [...] ?Squatting. ?Moving his or her legs. Give mbho-qwx-ebjmxsq and prescription medicines only as told by [...] 01/13/2009 Document Revised: 03/19/2018 Document Reviewed: 05/12/2017 [employer] Patient Education 2020 [employer]. Follow Up Care 07/26/2022 11:32:57 With:Sara Nicanor Address: [address] [place] [address]- Business (1) When: Unknown Comments:Call for followup appointment 7-10 days With:Josias RUFF, CARLOS Thacker Address: [address] [place] [address]- When:2 to 4 weeks [facility]04-09-2023 Evaluation + Plan noteExtracted from: Title:Discharge Note [...] Daily With When Contact Information Sara Vick [address] [place] [phone]- Business (1) Additional Instructions: Call for followup appointment 7-10 days Josias RUFF, CARLOS Thacker Within 2 to 4 weeks [address] [place] [address]- Additional Instructions: Near-Syncope Vasovagal Syncope, Pediatric Extracted [...] is acute or subacute. It might turn down worker to just be some focal white matter [...] specified devices) recent right foot surgery in [facility]/podiatry secondary to non healing food wound. Currently has wound vac intact to this operative site. 6. Osteoarthritis (M19.90: Unspecified osteoarthritis, unspecified site) osteoarthritis status post left hip replacement Has chronic back pain. 7. Morbid obesity (E66.01: Morbid (severe) obesity due to excess calories) -BMI 70.73 -Signal Supervisor on diet, exercise, weight loss and lifestyle [...] plan. Diagnostic Tests Pending * HgbA1c 07/27/22 [facility]04-08-20[facility]Comment on above:Result Comment: Electronically Signed [...] M51.36) Continue with current treatment plan. Apr, Other Linda has an open sore on right ankle which she states she is following up [facility]. I do not recommend futher injections until this is healed to prevent further infection or complication. Her pain appears to be stable at this time. She is encouraged to call the office if her pain increases in the future. [facility] [facility] Other [id number] NotePROCEDURE: XR FOOT RT MIN 3 VIEWS, [...] Electronically authenticated by: JULIO LOBATO Date: 2022-04-23 13:00[facility]01-04-2023 NotePROCEDURE: XR FOOT RT MIN 3 [...] Electronically authenticated by: JULIO LOBATO Date: 2022-04-23 13:00[facility] [id number] NotePROCEDURE: XR ANKLE RT MIN 3 VIEWS [...] authenticated by: ALFRED UMAÑA Date: 2022-03-31 18:19[facility] [id number] Hospital Discharge instructions Patient Education 03/08/2022 17:44:27 [...] 04/06/2006 Document Revised: 04/15/2017 Document Reviewed: 03/23/2017 [employer] Patient Education 2020 [employer]acs. 03/08/2022 17:44:27 Hip Dislocation Hip Dislocation Hip [...] Follow these instructions at home: Medicines Take pili-xsr-xbyhlad and prescription medicines only as told by your health care provider. Ask your health care provider if the medicine prescribed to you: ?Requires you to avoid driving or using heavy machinery. ?Can cause constipation. You may need to take actions to prevent or treat constipation, such as: ?Drink enough fluid to keep your urine pale yellow. ?Take aryj-kml-ikdiwyb or prescription medicines. ?Eat foods that are [...] in the [place] Do not drive yourself [facility]. Summary Hip dislocation happens when the [...] 12/30/2001 Document Revised: 12/29/2018 Document Reviewed: 12/30/2018 [employer] Patient Education 2020 [employer]. Follow Up Care 03/08/2022 13:37:46 With:Sorin DICKERSON Address: [address] [place] [address] [address] [place] [address]- Business (1) When:03/11/2022 17:44:09 Comments:Call to establish follow-up care. Wear brace until follow-up with orthopedic surgery. With:Sara Vick Address: [address] [place] [address] [place] [address]- Business (1) When:03/11/2022 17:43:29 Comments:Call the office [...] you develop any new or worsening symptoms. [facility]11-19-2022 Evaluation + Plan noteExtracted from: Title:ED Note Author:Wm Nagy DO Date:05/08/21 Dislocation, hip (S73.006A: Unspecified dislocation of unspecified hip, initial encounter) Ordered: acetaminophen-hydrocodone, 1 tab(s), Oral, q4hr for pain, 12 tab(s), Refill(s) 0, [id number], 172, cm, 03/08/22 13:49:00 EST, Height/Length [...] XR Hip 2-3 Views Left + Pelvis [facility]11-18-2022 Evaluation note* Encounter Date Diagnosis Assessment Notes [...] negative findings were considered in medical decision-making. [facility] [facility] Other [id number] NotePROCEDURE: XR FOOT RT MIN 3 VIEWS [...] Electronically authenticated by: JULIO LOBATO Date: 2021-10-07 11:44[facility] noteNo InformationNort Fluid Other Evaluation noteNo assessment information available [facility] Work Phone: Evaluation note* Diagnosis Pain in prosthetic joint, sequela- Primary [facility]* Diagnosis Adjacent segment disease of lumbar spine with history of fusion procedure- Primary Chronic bilateral low back pain with bilateral sciatica documented in this encounter [facility] note* Diagnosis 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 carisa-dr gilman 2019 [place] [facility] Other History general Narrative - Reported* Type [...] 2 021 Surgical History back surgeries x5 [facility] [employer] yuandr gilman 2019 Hospitalization History see above [facility] Other Hisxonr general Narrative - Reported* Type Description Date [...] 2 021 Surgical History back surgeries x5 [facility] gen kori gilman 2018 Surgical History lazer surgery on her lt leg veins and she also had sclero tx on b/l legs 2022 Hospitalization History see above [facility] Other Hospital course Narrative No data available for this section [facility] No data available for this section [facility] for [facility] (narrative)* Diagnostic Procedure Only (Routine) - Closed Specialty Diagnoses / Procedures Referred By Maximiliano t Referred To Contact XR IMAGING Diagnoses Fusion of spine of thoracolumbar region Procedures XR SCOLIOSIS PA STAND/LAT 2V RADEX ENTIR THRC LMBR CRV SAC SPI W/SKULL 2/3 VW Ros Cedeño, ATHLETIC TRAINING INTERNSHIP.DIRECTOR OF GRADUATE MEDICAL EDUCATION [address] [place] [address] Xr [facility] [place] [address] Referral ID Status Reason Start Date Expiration Date V isits Requested Visits Authorized [id number] Closed Auto-Generate d Referral 02/25/2023 03/26/2024 1 1 * Diagnostic Procedure Only (Routine) - Closed Specialty Diagnoses / Procedures Referred By Contac t Referred To Contact XR IMAGING Diagnoses Fusion of spine of thoracolumbar region Procedures XR LUMBAR MOTION 4V AP/LAT/ FLEX/EXT RADEX SPINE LUMBOSACRAL MINIMUM 4 VIEWS Ros Cedeño APRN.DIRECTOR OF GRADUATE MEDICAL EDUCATION [address] [place] [address] X[facility] [place] [address] Referral ID Status Reason Start Date Expiration Date V isits Requested Visits Authorized [id number] Closed Auto-Generate d Referral 02/25/2023 03/26/2024 1 1 [facility]* Diagnostic Procedure Only (Routine) - Closed Specialty Diagnoses / Procedures Referred By Contac t Referred To Contact XR IMAGING Diagnoses Fusion of spine of thoracolumbar region Procedures XR SCOLIOSIS PA STAND/LAT 2V RADEX ENTIR THRC LMBR CRV SAC SPI W/SKULL 2/3 VW Ros Cedeño APRN.DIRECTOR OF GRADUATE MEDICAL EDUCATION [address] [place] [address] X[facility] [place] [address] Referral ID Status Reason Start Date Expiration Date V isits Requested Visits Authorized [id number] Closed Auto-Generate d Referral 02/25/2023 03/26/2024 1 1 [facility] Advance Directives No Advanced Directives Records Found [...] SPINE W/O CONTRAST MATERIAL Ghanshyam Lombardi MD [address] [facility] [place] [address] [facility] [place] [address] Referral ID Status Reason Start Date Expiration Date Visits Requested Visits Authorized [id number] Pending Review Auto-Generat ed Referral 06/24/2023 07/23/2024 1 1 Specialty Diagnoses / Procedures Referred By Contac t Referred To Contact MR IMAGING Diagnoses 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 Procedures MRI THORACIC SPINE WO IVCON MRI SPINAL CANAL THORACIC W/O CONTRAST MATRL Ghanshyam Lombardi MD [address] [place] [address] Mr Imaging [place] [address] Referral ID Status Reason Start Date Expiration Date Visits Requested Visits Authorized [id number] Pending Review Auto-Generat ed Referral 06/24/2023 07/23/2024 1 1 Specialty Diagnoses / Procedures Referred By Contac t Referred To Contact Diagnoses Pain in prosthetic joint, sequela Procedures XR HIP WITH PELVIS LEFT Perfecto Burch MD [address] [place] [id number] Referral ID Status Reason Start Date Expiration Date V isits Requested Visits Authorized [id number] New Request 09/18/2022 10/13/2023 1 1 Specialty Diagnoses / Procedures Referred By Contac t Referred To Contact Diagnoses Pain in prosthetic joint, sequela Procedures XR KNEE LEFT 3 VIEWS Perfecto Burch MD [address] [place] [id number] Referral ID Status Reason Start Date Expiration Date V isits Requested Visits Authorized [id number] New Request 09/16/2022 10/11/2023 1 1 Additional Source Comments INFORMATION SOURCE (unrecogn ized section and content) DATE CREATED AUTHOR 12/13/2017 [facility] DATE CREATED AUTHOR AUTHOR'S ORGANIZ ATION 07/10/2018 [place] [facility] DATE CREATED AUTHOR AUTHOR'S ORGANIZ ATION 02/25/2019 [facility] DATE CREATED AUTHOR AUTHOR'S ORGANIZ ATION 03/01/2022 [facility] dical Specialist DATE CREATED AUTHOR AUTHOR'S ORGANIZ ATION 07/26/2022 [facility] DATE CREATED AUTHOR AUTHOR'S ORGANIZ ATION 09/27/2022 [facility] DATE CREATED AUTHOR AUTHOR'S ORGANIZ ATION 09/27/2022 [facility] DATE CREATED AUTHOR AUTHOR'S ORGANIZ ATION 11/26/2022 [place] [facility] DATE CREATED AUTHOR AUTHOR'S ORGANIZ ATION 05/29/2023 [facility] DATE CREATED AUTHOR AUTHOR'S ORGANIZ ATION 07/14/2023 [facility] DATE CREATED AUTHOR AUTHOR'S ORGANIZ ATION 07/17/2023 [facility] dical Specialists EPIC REASON FOR VISIT (unrecogniz ed section and content) Specialty Diagnoses / Procedures Referred By Contac t Referred To Contact Diagnoses Pain in prosthetic joint, sequela Procedures XR HIP WITH PELVIS LEFT Perfecto Burch MD [address] [place] [address] Referral ID Status Reason Start Date Expiration Date V isits Requested Visits Authorized [id number] New Request 09/18/2022 10/13/2023 1 1 Reason Comments Pain New Patient Reason Comments New Patient Specialty Diagnoses / Procedures Referred By Contac t Referred To Contact CT IMAGING Diagnoses Chronic bilateral low back pain with bilateral sciatica Procedures CT LUMBAR SPINE WO IVCON CT LUMBAR SPINE W/O CONTRAST MATERIAL Ghanshyam Lombardi MD [address] [place] [address] [place] [address] Referral ID Status Reason Start Date Expiration Date V isits Requested Visits Authorized [id number] Closed Auto-Generate d Referral 07/11/2023 08/10/2023 2 1 Patient Care team informatio n (unrecognized section and content) Team Status: Active Member Role Status Dates Sara Vick MD Primary Care Provider Active Team Status: Inactive Member Role Status Dates Sara Vick MD Primary Care Provider, Attending Pr ovider Active Criminalist Technician Relationship Specialty Start Date End Date Sara Vick MD [address] [place] [address] PCP - General Family Medicine 04/09/22 Criminalist Technician Relationship Specialty Start Date End Date Sara Vick MD [address] [place] [address] PCP - General Family Medicine 04/09/22 Team [...] May 22, 2023 End: May 22, 2023 Criminalist Technician Relationship Specialty Start Date End Date Sara Vick MD PCP - General Family Medicine 06/09/11 Criminalist Technician Relationship Specialty Start Date End Date Sara Vick MD PCP - General Family Medicine 06/09/11 Criminalist Technician Relationship Specialty Start Date End Date [...] or prosecute any alcohol or drug abuse patient.[facility] the event this information is protected by the Federal Confidentiality of Alcohol and Drug Abuse Patient Records regulations: The Federal rules restrict any use of the information to criminally investigate or prosecute any alcohol or drug abuse patient.[facility] CampusIn the event this information is protected by the Federal Confidentiality of Alcohol and Drug Abuse Patient Records regulations: The Federal rules restrict any use of the information to criminally investigate or prosecute any alcohol or drug abuse patient.[facility] FOR RECORDS PERTAINING TO PATIENTS WHO ARE [...] BE BASED ON THE PRIMARY CLINICAL RECORDS. [facility] provides no warranty or guarantee of the accuracy or completeness of information in this document.
== END 2023-07-20 12:19 | disposition home or self-care (01) ==
LOC: RAD 12:21
PROVIDERS: PCP Family Medicine; Visit Provider Family Medicine
DX: M75.40 Impingement syndrome of unspecified shoulder (principal); M19.012 Primary osteoarthritis, left shoulder
CPT/HCPCS: 73030

== ENCOUNTER 2023-10-20 10:22 | Outpatient (OUT) | payer MEDICARE, SELFPAY ==
--- OUTSIDE RECORDS SUMMARY | 2023-10-20 10:27 | XMS_ITS ---
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 Name Role Phone Praveen Lopez Unavailable Unavailable PHYSICIAN, DEFAULT Unavailable Unavailable PHYSICIAN, DEFAULT Unavailable Unavailable SARA VICK Unavailable Unavailable Nixon Vicklas~[id number] UNKNOWN Admitting Unavailable Jasviry, Sara~[id number] UNKNOWN Attending Unavailable Sara Vick~[id number] UNKNOWN Referring Unavailable Sara Vick Primary Care Provider Trino Yoo Attending Provider Larry Brown Unavailable Sara Vick Primary Care Physician Lynn Salas Unavailable Unavailable Holleran Flor Unavailable Unavailable ADELE FLEMING Attending Unavailable SARA VICK Primary Care Unavailable MD Sara Vick Primary Care Provider [phone] MD Sara Vick Attending Provider [phone] DEEPALI JANSEN Consulting Unavailable DEEPALI JANSEN Admitting Unavailable DEEPALI JANSEN Attending Unavailable NICANOR Mohan, DR RUIZ Primary Care Unavailable ADELE FLEMING Attending Unavailable ADELE FLEMING Admitting Unavailable NICANOR ., DR RUIZ Primary Care Unavailable ADELE FLEMING Admitting Unavailable ADELE FLEMING Attending Unavailable HOY ., DR RUIZ Primary Care Unavailable NICANOR ., DR RUIZ Consulting Unavailable NICANOR ., DR RUIZ Primary Care Unavailable DR SARA OVERTON Admitting Unavailable NICANOR ., DR RUIZ Attending Unavailable SHAWANDA LITTLE Admitting Unavailable SHAWANDA LITTLE Attending Unavailable SHAWANDA LITTLE Consulting Unavailable HOCarolina ., DR RUIZ Primary Care Unavailable SARA LAUREN Consulting Unavailable BERNADETTE PETER Clary Admitting Unavailable ADELE FLEMING Attending Unavailable NICANOR ., DR RUIZ Primary Care Unavailable ADELE FLEMING Admitting Unavailable ADELE FLEMING Attending Unavailable HOY ., DR RUIZ Primary [...] HOY ., DR RUIZ Primary Care Unavailable ELZBIETA, DEEPALI Consulting Unavailable HIGHLANDER, PETER D Attending Unavailable HIGHLANDER, PETER D Admitting Unavailable HOY ., DR RUIZ Primary Care Unavailable WEST, DR ALFRED Deal Attending Unavailable WEST, DR ALFRED Deal Consulting Unavailable WEST, DR ALFRED Deal Admitting Unavailable HOY ., DR RUIZ Primary Care Unavailable ZIEB, DR JULIO Wu Consulting Unavailable WEST, DR ALFRED Deal Attending Unavailable WEST, DR ALFRED Deal Consulting Unavailable WEST, DR ALFRED Deal Admitting Unavailable HOY ., DR RUIZ Primary Care Unavailable [place], DR AKIL Salvador Consulting Unavailabl e REINHAL, DR AKIL Salvador Admitting Unavailabl e [place], DR AKIL Salvador Attending Unavailabl e NICANOR ., DR RUIZ Primary Care Unavailable MARI [...] Attending Unavailable HIGHLANDER, PETER D Admitting Unavailable MORTON, DR ALFRED Deal Consulting Unavailable HOY ., [...] Unavailable Sara Vick MD Primary Care Provider [phone] Josias Julio Consulting Unavailable Ottoniel, Francisco S Admitting Unavailable Ottoniel, Francisco S Attending Unavailable Butner, Julio Consulting Unavailable Butner, Julio Consulting Unavailable Butner, Julio Consulting Unavailable Butner, Julio Consulting Unavailable Butner, Julio Consulting Unavailable Butner, Julio Consulting Unavailable Butner, Julio Consulting Unavailable Butner, Julio Consulting Unavailable Wm Nagy Attending Unavailable Flavio Castillo Attending Unavailable Alley Naranjo Admitting Unavailable Alley Naranjo Attending Unavailable Alley Naranjo Referring Unavailable Dominique Shane Unavailable MD Sara Vick Primary Care Provider MD Larry Brown Attending Provider Kiran Kessler Unavailable HAILEY Jansen Attending Provider MD Kiran Kessler Attending Provider Sara Vick MD Primary Care Provider [phone] Sara Vick Primary Care Unavailable Larry Brown Admitting Unavailable Larry Brown Attending Unavailable Nicanor, Sara M Primary Care Unavailable Deepali Jansen Admitting Unavailable Deepali Jansen Attending Unavailable Sara Vick M Primary Care Unavailable Kiran Kessler Admitting Unavailabl e Kiran Kessler Attending Unavailabl e Sara Vick M Primary Care Unavailable Larry Brown Admitting Unavailable Larry Brown Attending Unavailable MD Sara Vick Primary Care Provider [phone] HAILEY Jansen Attending Provider MD Kiran Kessler Attending Provider PELLE GHANSHYAM Referring Unavailable HOY, SARA M Primary Care Unavailable PELLE, GHANSHYAM Referring Unavailable HOY, SARA M Primary Care Unavailable HOY, SARA M Primary Care Unavailable HOY, SARA M Referring Unavailable MEÑO LOMBARDIINIC Attending Unavailable HOY, SARA M Primary Care Unavailable ROS CEDEÑO Referring Unavailable ANNIE JIMENEZ Attending Unavailable ANNIE JIMENEZ Referring Unavailable Unavailable Unavailable Unavailable Allergies Allergy Classification Reported Allergen(s) Allergy Type Date of Onset Reaction(s) Facility (1 source) Sulfa Antibiotics 06-19-19 18 Celest[facility] (3 sources) Sulfonamides (Antibiotic) Drug allergy (disorder) 08-02-19 10 [facility] Repository (4 sources) Sulfamethoxazole; Translations: [sulfamethoxazole ] Drug Allergy Cutaneous eruption (morphologic abnormality) [facility] Repository (2 sources) Sulfur; Translations: [Sulfur] Drug Allergy [facility] Repository (11 sources) Sulfonamides (Antibiotic); Translations: [Sulfa (Sulfonamide Antibiotics)] Allergy to substance 07-17-19 07 Esteban [facility] (17 sources) Sulfacetamide Drug Allergy 09-19-19 23 Esteban [facility] Other (2 sources) [facility] Drug Allergy 09-19-19 [facility] (1 source) Sulfacetamide Drug Allergy 07-01-19 [facility] Repository Encounters Encounter Date Encounter Type Care Provider Facility Start: 08-08-2023 End: 08-08-2023 ambulatory GHANSHYAM PELLE Facility:[facility] Start: 08-08-2023 End: 08-08-2023 Subsequent hospital visit by physician Mri 6 Radio Main Q (I-Stat/1.5t/3t) Work Phone: MRI Q Comment on above: 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, Z98.1] Start: 08-07-2023 End: 08-07-2023 ambulatory MD Sara Vick Work Phone: [facility] Work Phone: Start: 08-07-2023 End: 08-07-2023 Patient encounter procedure MD Sara Vick Work Phone: Pending [facility] [place] Work Phone: Start: 08-05-2023 End: 08-06-2023 ambulatory ANNIE Rowell PRINTY Not Available Start: 07-15-2023 End: 07-15-2023 ambulatory ANNIE PRINTY Not Available Start: 07-13-2023 End: 07-13-2023 ambulatory GHANSHYAM PELLE Facility:[facility] Start: 07-13-2023 End: 07-13-2023 Subsequent hospital visit by physician Dona [facility] Dasia Work Phone: Radiology Comment on above: Chronic bilateral lo w back pain with bilateral sciatica [M54.42, M54.41, G89.29] Start: 07-01-2023 End: 07-01-2023 Patient encounter procedure MD Sara Vick Work Phone: [facility] Work Phone: Start: 06-30-2023 End: 06-30-2023 Patient encounter procedure MD Sara Vick Work Phone: [facility] Work Phone: Start: 06-29-2023 End: 06-29-2023 ambulatory ANNIE Sorin JIMENEZ Not Available Start: 06-24-2023 End: 06-24-2023 ambulatory SARA VICK Facility:[facility] Start: 06-24-2023 End: 06-24-2023 Patient encounter procedure Ghanshyam Lombardi MD Work Phone: [facility] [place] Comment on above: 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); Chronic bilateral low back pain with bilateral sciatica Start: 06-24-2023 End: 06-24-2023 Subsequent hospital visit by physician Xr Main Qb1 Radiology Comment on above: 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] Start: 05-22-2023 End: 05-22-2023 ambulatory Sara Vick Facility:[facility] Start: 05-22-2023 End: 05-22-2023 ambulatory MD Sara Vick Work Phone: [facility] Work Phone: Start: 05-22-2023 End: 05-22-2023 Patient encounter procedure MD Sara Vick Work Phone: [facility]Ultrasound [place] Work Phone: Start: 05-20-2023 End: 05-20-2023 ambulatory Sara Vick Facility:[facility] Start: 05-20-2023 End: 05-20-2023 Discharged Recurring MD Sara Vick Work Phone: [facility]-[employer] [address] Start: 05-20-2023 Registered Recurring MD Gideon Vick Work Phone: [facility] [address] Start: 05-18-2023 Patient encounter procedure MD Sara Vick Work Phone: [facility]- Start: 05-15-2023 End: 05-15-2023 ambulatory Larry Brown Other [facility] Other Start: 05-15-2023 Office outpatient vi sit 25 minutes Larryrandy Brown [facility] [place] Start: 05-15-2023 End: 05-15-2023 Patient encounter procedure MD Sara Vick Work Phone: [facility]- Start: 05-13-2023 End: 05-13-2023 ambulatory Kiran Checo Other [facility] Other Start: 05-13-2023 Office outpatient ne w 60 minutes Kiran Kessler [facility] Start: 05-13-2023 End: 05-13-2023 Patient encounter procedure MD Sara Vick Work Phone: [facility]- Start: 04-16-2023 End: 04-16-2023 ambulatory Dominique Shane Other [facility] Other Start: 04-16-2023 Telephone encounter Dominique Shane [facility] Start: 04-03-2023 End: 04-03-2023 ambulatory Larry Brown Other [facility] Other Start: 04-03-2023 Office outpatient vi sit 15 minutes Larryrandy Brown [facility] [place] Start: 04-03-2023 End: 04-03-2023 Patient encounter procedure MD Sara Vick Work Phone: [facility] [place] Work Phone: Start: 03-25-2023 (PROC) [facility] Start: 03-25-2023 End: 03-25-2023 ambulatory Sara Vick Facility:[facility] Start: 03-25-2023 End: 03-25-2023 Admission to same day surgery center MD Sara Vick Work Phone: [facility]-Digestive Health Work Phone: Start: 03-25-2023 End: 03-25-2023 ambulatory MD Sara Vick Work Phone: [facility] Work Phone: Start: 03-06-2023 End: 03-06-2023 Patient encounter procedure MD Sara Vick Work Phone: [facility] [place] Work Phone: Start: 02-10-2023 End: 02-10-2023 ambulatory Dominique Shane Other [facility] Other Start: 02-10-2023 Telephone encounter Dominique Shane [facility] Start: 01-27-2023 End: 01-27-2023 ambulatory Dominique Shane Other [facility] Other Start: 01-27-2023 Office outpatient vi sit 25 minutes Dominique Shane [facility] [place] Start: 01-27-2023 Telephone encounter Larry Stephanie [facility] Start: 01-09-2023 End: 01-09-2023 ambulatory Larry Stephanie Other [facility] Other Start: 01-09-2023 Office outpatient vi sit 25 minutes Larry Stephanie [facility] [place] Start: 12-12-2022 End: 12-12-2022 ambulatory Larry Stephanie Other [facility] Other Start: 12-12-2022 Office outpatient vi sit 25 minutes Larry Stephanie [facility] [place] Start: 11-22-2022 End: 11-22-2022 Emergency department patient visit Flavio Denis Facility:[facility] [place] Start: 09-19-2022 End: 09-19-2022 ambulatory Larry Stephanie Other [facility] Other Start: 09-19-2022 Office outpatient vi sit 25 minutes Larry [facility] [place] Start: 09-18-2022 ambulatory [facility] Start: 09-18-2022 End: 09-18-2022 Office outpatient new 30 minutes Perfecto Burch MD Work Phone: [facility] Comment on above: 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, sequela (Primary Dx) Start: 09-18-2022 End: 09-18-2022 Subsequent hospital visit by physician Perfecto Burch MD Work Phone: [facility] Start: 09-17-2022 ambulatory ADELE FLEMING Faci lity:[facility] Start: 09-10-2022 End: 09-10-2022 ambulatory Sara Vick Facility:[facility] Start: 09-09-2022 End: 09-10-2022 ambulatory ADELE FLEMING Facility:[facility] Start: 09-08-2022 End: 09-09-2022 ambulatory Alley Naranjo Facility:[facility] [place] Start: 08-18-2022 End: 08-19-2022 ambulatory ADELE FLEMING Facility:[facility] Start: 08-13-2022 ambulatory [facility] Start: 08-12-2022 End: 08-13-2022 ambulatory ADELE FLEMING Facility:[facility] Start: 08-08-2022 End: 08-09-[address] ALFRED UMAÑA Facility:[facility] Start: 08-01-2022 End: 08-02-2022 ambulatory ADELE FLEMING Facility:[facility] Start: 07-26-2022 End: 07-27-2022 ambulatory Julio Ferrara Facility:[facility] [place] Start: 07-26-2022 End: 07-27-2022 Observation Francisco Alcazar [facility] Start: 07-25-2022 Encounter for preprocedural cardiovascular examination ADELE FLEMING [facility] Start: 07-25-2022 Encounter for preprocedural laboratory examination ADELE Means [facility] Start: 07-24-2022 End: 07-25-2022 ambulatory ADELE Clary FLEMING Facility:[facility] Start: 07-24-2022 End: 07-24-2022 ambulatory ADELE Clary FLEMING Facility:[facility] Start: 07-18-2022 End: 07-19-2022 [facility] Start: 07-18-2022 End: 07-19-2022 Encounter for preprocedural cardiovascular examination ADELE FLEMING Facility:[facility] Start: 07-08-2022 End: 07-09-2022 ambulatory ADELE Clary FLEMING Facility:[facility] Start: 07-01-2022 End: 07-02-[address] ALFRED UMAÑA Facility:[facility] Start: 06-24-2022 End: 06-25-2022 ambulatory AEDLE LFEMING Facility:[facility] Start: 06-19-2022 End: 06-20-[address] ALFRED UMAÑA Facility:[facility] Start: 06-19-2022 End: 06-19-2022 ambulatory MD Sara Vick Work Phone: [facility] Work Phone: Start: 06-19-2022 End: 06-19-2022 Discharged Recurring MD Sara Vick Work Phone: [facility]Physical Therapy [place] Work Phone: Start: 06-13-2022 End: 06-14-2022 ambulatory [...] 05-02-2022 End: 05-02-2022 ambulatory Larry Brown Other [facility] Other Start: 05-02-2022 Office outpatient vi sit 25 minutes Larry Brown [facility] [place] Start: 05-01-2022 End: 05-02-2022 ambulatory ADELE Means [facility] Facility:[facility] Start: 04-22-2022 End: 04-23-2022 ambulatory ADELE Means [facility] Facility:[facility] Start: 04-14-2022 End: 04-15-2022 ambulatory DEEPALI JANSEN Facility:[facility] Start: 04-08-2022 (PROC) PROCEDURE Larry Brown [facility] Start: 04-08-2022 End: 04-08-2022 ambulatory Larry Brown Other [facility] Other Start: 03-31-2022 End: 04-01-[address] ALFRED UMAÑA Facility:[facility] Start: 03-08-2022 End: 03-08-2022 Emergency department patient visit Wm Nagy Facility:[facility] [place] Start: 03-08-2022 End: 03-08-2022 Emergency department patient visit Wm Nagy [facility] Start: 03-07-2022 End: 03-07-2022 ambulatory Larry Brown Other [facility] Other Start: 03-07-2022 Office consultation new/estab patient 60 min Larry Brown [facility] [place] Start: 03-06-2022 End: 03-07-[address] SARA VICK . Facility:[facility] Start: 01-03-2022 End: 01-03-[address] SARA VICK . Facility:[facility] Start: 12-09-2021 End: 12-10-2021 ambulatory SHAWANDA LITTLE Facility:[facility] Start: 11-05-2021 End: 11-06-2021 ambulatory ADELE Means [facility] Facility:[facility] Start: 10-07-2021 End: 10-07-2021 ambulatory PO SUAREZ . Facility: Start: 05-04-2020 End: 05-04-2020 Patient encounter procedure Sara Vick -Pre-Surgical Testing Start: 05-02-2020 Registered Recurring Sara Vick -P hysical Therapy [place] Start: 04-24-2020 End: 04-24-2020 Patient encounter procedure Sara Vick -Pre-Surgical Testing Start: 02-01-2020 End: 02-01-2020 Patient encounter procedure Sara Vick -[facility] Start: 06-29-2018 Patient encounter procedure Sara~[id number] UNKNOWN Hoy Facility:[facility] [place] Start: 12-11-2017 End: 12-12-2017 Patient encounter DEFAULT PHYSICIAN Facility:[facility] Medical Equipment Procedure Code Equipment Code Equipment Origin al Text Equipment Identifier Dates Arthroplasty, knee, total, minimally invasive Orthopaedic cement, non-medicated [id number] FDA Start: 05-07-2020 Arthroplasty, knee, total, minimally invasive Uncoated knee femur prosthesis, metallic ()[id number] FDA Start: 05-07-2020 Arthroplasty, knee, total, minimally invasive Tibial insert [id number] FDA Start: 05-07-2020 Arthroplasty, knee, total, minimally invasive Uncoated knee tibia prosthesis, metallic ()[id number] FDA Start: 05-07-2020 Arthroplasty, knee, total, minimally invasive Polyethylene patella prosthesis [id number] FDA Start: 05-07-2020 Goals Date Patient Goal Desired Activity /State Immunizations Immunization Date Immunization Notes Care Provider Marisabel sharif 02-11-2022 Influenza, injectabl e, Madin [place] Canine Kidney, preservative free, quadrivalent MD Sara Vick Work Phone: [facility] 02-11-2022 influenza virus vacc ine, unspecified formulation Ghanshyam Lombardi MD Work Phone: [facility] 12-03-2021 COVID-19 Comirnaty (Pfizer) Tri-Sucrose 12+ MD Sara Vick Work Phone: [facility] 03-25-2021 COVID-19 mRNA, Comir nicolle (Pfizer) MD Sara Vick Work Phone: [facility] 07-12-2020 COVID-19, mRNA, LNP- S, PF, 30 mcg/0.3 mL dose Wm Nagy [facility] Comment on above: Reason for Medicatio n: Prophylaxis 06-14-2020 COVID-19, mRNA, LNP- S, PF, 30 mcg/0.3 mL dose Wm Nagy [facility] Comment on above: Reason for Medicatio n: Prophylaxis 02-08-2020 Seasonal trivalent influenza vaccine, adjuvanted, preservative free MD Sara Vick Work Phone: [facility] 02-23-2018 influenza, injectabl e, madin josephine canine kidney, preservative free MD Sara Vick Work Phone: [facility] 02-18-2018 pneumococcal polysaccharide vaccine, 23 valantony Nagy [facility] 06-18-2017 tuberculin skin test ; unspecified formulation Meghandominga Whatleyjamal [facility] 02-24-2017 pneumococcal polysaccharide vaccine, 23 valent MD Sara Vick Work Phone: [facility] 02-05-2017 influenza, high dose seasonal, preservative-free MD Sara Vick Work Phone: [facility] 02-05-2017 pneumococcal conjuga te vaccine, 13 valantony Nagy [facility] 02-02-2016 influenza, seasonal, injectable, preservative free MD Sara Vick Work Phone: [facility] 10-20-2012 pneumococcal polysaccharide vaccine, 23 valantony Nagy [facility] [place] Medications Current Medications Medication Drug Class(es) Dates [...] / HYDROcodone bitartrate 5 mg oral tablet (17 sources) Opioid Agonist Start: 08-07-2023 take 1 tablet by mouth once daily Hydrocodone-Acetaminophen Active 1 TAB PO Daily 7 August 07, 2023 Start: 06-29-2023 End: 08-07-2023 take 1 tablet by mouth once daily Hydrocodone-Acetaminophen Discontinued 1 TAB PO Daily June 30, 2023 August 07, 2023 11:54am Start: 05-18-2023 take 1 tablet by donna th once [...] G89.29 Chronic pain Apr, Active Start: 03-25-2023 End: 06-29-2023 Hydrocodone-Acetaminophen Di scontinued 1 TAB PO As Directed March 25, 2023 1:00am June 29, 2023 1:17pm Start: 03-06-2023 take 1 tablet by donna th once daily as needed HYDROcodone-Acetaminophen 5-325 MG 1 tab let as needed Orally daily (*do not fill until 03/12/2023) for 30 days Feb, Active Start: 10-24-2023 take 1 tablet by donna th every twenty-four hours HYDROcodone-Acetaminophen 5-325 MG 1 tab let as needed Orally daily for 30 days G89.29 Chronic pain Jan, Active Start: 12-12-2022 take 1 tablet by donna th every twenty-four hours HYDROcodone-Acetaminophen 5-325 MG 1 tab let as needed Orally daily for 30 days Dec, Active Start: 03-08-2022 [place] 325 mg-5 mg oral tablet 1 tab(s), Oral, q4hr for pain, 12 tab(s), Refill(s) 0, [facility]/pharmacy #[id number], 172, cm, 03/08/22 13:49:00 EST, [...] Ordered alendronic acid 70 mg oral tablet (18 sources) Bisphosphonate Start: 06-29-2023 take 1 tablet by mouth once daily Alendronate Active 70 MG PO Daily June 29, 2023 12:00am [employer] tablet 30 minutes before the first food, beverage or medicine of the day with plain water Orally; Note: Source Status: Taking; Start: 07-08-2022 alendronate 70 MG tablet take 1 tablet by donna th once daily Alendronate Sodium 70 MG 1 tablet 30 minutes before the first food, beverage or medicine of the day with plain water Orally Active aspirin 81 mg delayed release oral tablet (19 sources) Platelet Aggregation Inhibitor, Nonsteroidal Anti-inflammatory Drug Start: 07-27-2022 take 1 tablet by mouth once daily aspirin 81 mg Oral EC Tab 81 mg = 1 tab(s), Oral, Daily, # 30 tab(s), Refills(s) 0, Pharmacy: [facility]/pharmacy #[id number], 172.7, cm, 07/26/22 11:43:00 EDT, Height/Length Dosing, 93.5, kg, 07/27/22 10:37:00 EDT, Weight Dosing Start Date: 07/27/22 Status: Ordered Start: 05-08-2020 End: 09-10-2022 take 81 mg by mouth twice daily Aspirin Discontinued 81 MG PO Twice daily 0 May 08, 2020 1:00am September 10, 2022 11:47am Start: 05-02-2020 Aspirin 81 MG 1 tablet [...] 25 MCG PO Daily April 24, 2020 1:00am Start: 06-19-2017 take 1 tablet by donna once daily Vitamin D3 Tablet 2000 UNIT 1 tablet Tablet Oral Give 1 tablet by mouth one time a day for supplement 06/19/2017 9:00:00 take 1 capsule by mo [facility] every twenty-four hours Vitamin D3 50 MCG (2000 UT) 1 capsule Orally Once a day Active collagenase 0.25 unt/mg topical ointment (1 source) Collagen-specific Enzyme Start: 06-29-2023 Collagenase Clostridium Histo. Active 1 APPLIC TOPICAL Daily June 29, 2023 12:00am Collagenase 250 UNIT/GM (11 sources) Collagenase 250 UNIT/GM 1 application Externally Once a day Active cyclobenzaprine hydrochloride 10 mg oral tablet (1 source) Muscle Relaxant Start: 06-18-2017 take 1 tablet by mouth every eight hours as needed for muscle spasms Cyclobenzaprine HCl Tablet 10 MG 10 mg Tablet Oral GIVE ONE TAB BY MOUTH EVERY 8 HOURS NEEDED FOR MUSCLE SPASMS 06/18/2017 20:30:00 diclofenac sodium 75 mg delayed release oral tablet (5 sources) Nonsteroidal Anti-inflammatory Drug Start: 06-19-2017 take 1 tablet by mouth twice daily Diclofenac Sodium Tablet Delayed Release 75 MG 1 tablet Tablet Delayed Release Oral GIVE ONE TAB BY MOUTH TWICE DAILY FOR ANTI INFLAMMATORY 06/19/2017 9:00:00 Comment on above: Take 75 mg by mouth twice daily. Diff-Stat Capsule (1 source) Start: 06-19-2017 take 1 capsule by mouth once daily Diff-Stat Capsule 1 capsule Capsule Oral Give 1 capsule orally one time a day for Prophylatic 06/19/2017 9:00:00 esomeprazole 40 mg delayed release oral capsule (14 sources) Proton Pump Inhibitor take 1 capsule by mouth every twenty-four hours NexIUM 40 MG 1 capsule Orally Once a day Active furosemide 20 mg oral tablet (20 sources) Loop Diuretic Start: 06-29-2023 take 1 tablet by mouth every other week Furosemide Active 20 MG PO .every 2 weeks June 29, 2023 12:00am [employer] tablet Orally every 2 weeks; Note: Source Status: Taking; Provider: Stephanie Juarez ( ) Start: 04-24-2020 End: 03-25-2023 Furosemide Discontinued 20 M G PO As Directed April 24, 2020 12:00am March 25, 2023 10:11am Start: 07-01-2018 End: 03-25-2023 Furosemide Discontinued 20 M G PO As Directed April 24, 2020 1:00am March 25, 2023 11:11am lidocaine 0.05 mg/mg medicated patch (11 sources) Antiarrhythmic, Amide Local Anesthetic Start: 06-29-2023 apply 1 dose topically once daily Lidocaine (Lidoderm) 5 % adhesive patch,medicated Active 1 PATCH TOPICAL Daily June 29, 2023 12:00am leave on most painful area for up to 12 hrs Start: 12-12-2022 Lidoderm 5 % 1 patch remove after 12 hours Externally Once a day for 30 days Nov, Active meloxicam 15 mg oral tablet (20 sources) Nonsteroidal Anti-inflammatory Drug Start: 07-01-2018 End: 06-29-2023 take 0.5-1 tablets by mouth once daily Meloxicam Active 0 PO Daily June 29, 2023 1:14pm 1/2-1 tablet orally daily; pantoprazole 40 mg delayed release oral tablet (20 sources) Proton Pump Inhibitor Start: 09-14-2019 take 40 mg by mouth once daily Pantoprazole Active 40 MG PO Daily April 24, 2020 1:00am Start: 06-19-2017 take 1 tablet by donna once daily Pantoprazole Sodium Tablet Delayed Release [...] 07/03/2014 Active take 1 tablet by donna once daily in the morning Levothyroxine Sodium 125 MCG 1 tablet in the morning on an empty stomach Orally Once a day Active Comment on above: Take 1 tablet by donna once daily. tiZANidine 4 mg oral capsule (20 sources) Central alpha-2 Adrenergic Agonist Start: 06-29-2023 take 0.5-1 tablets by mouth twice daily as needed Tizanidine Active 0 PO .COMPLEX June 29, 2023 12:00am 1/2-1 tablet orally twice daily PRN; Start: 07-26-2022 take 2 tablets by [facility] every eight hours as needed for muscle spasms tiZANidine 4 mg Tab 8 mg = 2 tab(s), Oral, q8hr, PRN Spasm, Refills(s) 0 Start Date: 07/26/22 Status: Ordered Start: 06-19-2017 take 2 tablets by mo [facility] twice daily Zanaflex Tablet 4 MG 2 tablet Tablet Oral GIVE 2 TABS (8MG) BY MOUTH TWICE DAILY FOR MUSCLOSKELETAL 06/19/2017 9:00:00 take 1 capsule by mo [facility] once daily at bedtime tiZANidine HCl 4 mg capsule Take 4 mg by mouth daily at bedtime. 0 Active take 1 capsule by mo [facility] every eight hours tiZANidine HCl [...] 1000 MCG SUBCUT Q30D April 24, 2020 1:00am Start: 09-14-2019 cyanocobalamin 1000 mcg/mL Inj 1,000 microgram, IntraMuscular, qMonth, Refills(s) 0 Start Date: 09/14/19 Status: Ordered Cyanocobalamin 1 000 MCG/ML 1 ml Orally 1 x per month injection Active Completed/Discontinued Medications Medication Drug Class(es) Dates Sig (Normalized) Sig (Original) acetaminophen 325 mg / oxyCODONE hydrochloride 5 mg oral tablet (5 sources) Opioid Agonist Start: 05-08-2020 End: 09-10-2022 take 1 tablet by mouth every four to six hours Oxycodone-Acetamino phen (Percocet) 5-325 mg tablet Discontinued 1 - 2 TAB PO EVERY 4-6 HOURS 40 7 May 08, 2020 September 10, 2022 11:49am Start: 06-18-2017 take 1 tablet by donna [...] 06/18/2017 20:15:00 ciprofloxacin 500 mg oral tablet (4 sources) Quinolone Antimicrobial Start: 05-07-2020 End: 09-10-2022 take 500 mg by mouth twice daily Ciprofloxacin Hcl Discontinued 500 MG PO Twice daily May 07, 2020 1:00am September 10, 2022 11:47am docusate sodium 100 mg oral capsule (4 sources) Start: 05-08-2020 End: 09-10-2022 take 1 capsule by mouth twice daily Docusate Sodium (Dok) 100 mg Capsule Discontinued 100 MG PO Twice daily 0 May 08, 2020 1:00am September 10, 2022 11:48am gabapentin 600 mg oral tablet (20 sources) Anti-epileptic Agent Start: 04-24-2020 End: 06-29-2023 take 1200 mg by mouth twice daily Gabapentin Discontinued 1200 MG PO Twice daily April 24, 2020 1:00am June 29, 2023 1:13pm Start: 06-19-2017 take 1 tablet by donna th twice daily Gabapentin Active 600 MG PO Twice daily June 29, 2023 12:00am [employer] tab(s) Orally bid (*do not fill until 05/31/23); Note: Source Status: Refill; Refills: 0; Comment on above: Take 600 mg by mouth twice daily. hydrOXYzine pamoate 25 mg oral capsule (4 sources) Antihistamine Start: 05-08-19 End: 06-29-19 take 1 capsule by mouth every six hours Hydroxyzine Pamoate (Vistaril) 25 mg capsule Discontinued 25 MG PO Q6H May 08, 2020 1:00am June 29, 2023 1:17pm ibuprofen 800 mg oral tablet (6 sources) Nonsteroidal Anti-inflammatory Drug Start: 04-24-19 End: 09-11-19 23 take 800 mg by mouth four times daily Ibuprofen Discontinued 800 MG PO Four times daily April 24, 2020 1:00am September 10, 2022 11:49am losartan potassium 100 mg oral tablet (20 sources) Angiotensin 2 Receptor Mike Start: 06-18-19 12 take 1 tablet by mouth once daily losartan 100 mg ORAL tablet Take 1 tablet by mouth once daily. 0 06/18/2011 Active Losartan Potassi um Active Comment on above: Take 1 tablet by donna th once daily. Vitamin D3 1000 intl units oral tablet (2 sources) Start: 09-20-2019 take 1 tablet by mouth once daily Vitamin D3 1000 intl units oral tablet 1,000 International_Unit = 1 tab(s), Oral, Daily Start Date: 09/20/19 Status: Ordered Payers Date Payer Category Payer Unknown [id number] 2022 Self-pay [id number] 2022 Unknown [id number] 2022 Private Health Insurance 2018 Medicare [id number] 1959 Private Health Insurance [id number] 1950 Unknown [id number] 2.16.84 0.1.535558.3.579.2.727 1950 Unknown [id number] 2.16.8 40.1.108883.3.579.2.159 1950 Unknown [id number] 2.16.84 0.1.632836.3.579.2.593 1950 Unknown [id number] 2.16.84 0.1.889313.3.579.2.593 1951 Unknown [id number] 2.16.84 0.1.236780.3.579.2.593 1951 Unknown [id number] 2.16.84 0.1.366418.3.579.2.593 1951 Unknown [id number] 2.16.84 0.1.732162.3.579.2.593 1951 Unknown [id number] 2.16.84 0.1.737784.3.579.2.593 1951 Unknown [id number] 2.16.84 0.1.500303.3.579.2.593 1951 Unknown [id number] 2.16.84 0.1.249331.3.579.2.593 1951 Unknown [id number] 2.16.84 0.1.267683.3.579.2.593 1951 Unknown [id number] 2.16.84 0.1.772172.3.579.2.593 1951 Unknown [id number] 2.16.84 0.1.854561.3.579.2.593 1951 Unknown [id number] 2.16.84 0.1.788458.3.579.2.593 1951 Unknown [id number] 2.16.84 0.1.774703.3.579.2.593 1951 Unknown [id number] 2.16.84 0.1.366814.3.579.2.593 1951 Unknown [id number] 2.16.84 0.1.559368.3.579.2.593 1951 Unknown [id number] 2.16.84 0.1.114519.3.579.2.593 1951 Unknown [id number] 2.16.84 0.1.864945.3.579.2.593 1951 Unknown [id number] 2.16.84 0.1.309484.3.579.2.593 1951 Unknown [id number] 2.16.84 0.1.279390.3.579.2.593 1951 Unknown [id number] 2.16.84 0.1.417249.3.579.2.593 1951 Unknown [id number] 2.16.84 0.1.813811.3.579.2.593 1951 Unknown [id number] 2.16.84 0.1.487009.3.579.2.593 1951 Unknown [id number] 2.16.84 0.1.773580.3.579.2.593 1951 Unknown [id number] 2.16.84 0.1.076931.3.579.2.593 1951 Unknown [id number] 2.16.84 0.1.928263.3.579.2.593 1951 Unknown [id number] 2.16.84 0.1.739739.3.579.2.593 1951 Unknown [id number] 2.16.84 0.1.792626.3.579.2.593 1951 Unknown [id number] 2.16.84 0.1.850625.3.579.2.593 1951 Unknown [id number] 2.16.84 0.1.686222.3.579.2.593 1951 Unknown [id number] 2.16.8 40.1.610694.3.579.2.983 1951 Unknown [id number] 2.16.8 40.1.569731.3.579.2.983 1950 Unknown [id number] 2.16.8 40.1.405973.3.579.2.983 1951 Unknown [id number] 2.16.8 40.1.530011.3.579.2.727 1951 Unknown [id number] 2.16.8 40.1.141042.3.579.2.727 1951 Unknown [id number] 2.16.8 40.1.895696.3.579.2.727 1951 Unknown [id number] 2.16.8 40.1.749786.3.579.2.727 1951 Unknown [id number] 2.16.84 0.1.524631.3.579.2.1259 1951 Unknown [id number] 2.16.84 0.1.847391.3.579.2.1259 1951 Unknown [id number] 2.16.84 0.1.801275.3.579.2.1259 Unknown Unknown [id number] Unknown [id number] 2.16.8 40.1.556324.3.579.2.531 Unknown [id number] 2.16.8 40.1.873425.3.579.2.531 Unknown [id number] 2.16.8 40.1.237572.3.579.2.531 Unknown [id number] 2.16.8 40.1.166569.3.579.2.531 Plan of Treatment Date Care Activity Detail Author Start: 08-04-2024 Screening for malignant neoplasm of breast Mammogram Screening [facility] Start: 06-23-2024 BP Controlled (<130/80) BP Controlled (<130/80) [facility] Start: 12-20-2023 Influenza vaccination Influenza Vaccine (Season Ended) [facility] Start: 05-22-2023 Pulse volume recorder pneumoplethysmography US arterial pvr rest [facility] Start: 05-22-2023 [facility] Start: 05-22-2023 Duplex scan of lower limb veins US venous duplex LE BI [facility] Start: 05-22-2023 US Lower extremity vein - bilateral [facility] Start: 04-20-2023 Advance Directive Discussion Advance Directive Discussion [facility] Start: 04-20-2023 Behavioral Health Screening Behavioral Health Screening [facility] Start: 04-20-2023 Depression Assessment Depression Assessment [facility] Start: 03-25-2023 [facility] Start: 02-28-2023 Screening for malignant neoplasm of breast Mammogram Screening [facility] Start: 12-19-2022 Covid-19 Vaccine () Covid-19 Vaccine () [facility] Start: 12-19-2022 Influenza vaccination Influenza Vaccine (#1) [facility] Start: 01-28-2022 COVID-19 VACCINE (5 - Booster for Pfizer series) COVID-19 VACCINE (5 - Booster for Pfizer series) [facility] Start: 08-24-2019 Screening for malignant neoplasm of breast MAMMOGRAM SCREENING DISCUSSION [facility] Start: 12-20-2016 Screening for osteoporosis Bone Density Screening [facility] Start: 06-17-2014 Diabetes Screening Diabetes Screening [facility] Start: 2011 RSV Vaccine (1 - 1-dose 60+ series) RSV Vaccine (1 - 1-dose 60+ series) [facility] Start: 12-20-2001 Shingrix Vaccine (1 of 2) Shingrix Vaccine (1 of 2) [facility] Start: 12-20-2001 Zoster vaccine hzv live for subcutaneous use ZOSTER (SHINGLES) VACCINE (1 of 2) [facility] Start: 12-20-1996 Lipid panel Lipid Screening [facility] Start: 12-20-1996 Screening for malignant neoplasm of colon [facility] Start: 1991 Lipid panel LIPID SCREENING [facility] Start: 12-20-1972 Screening for malignant neoplasm of cervix CERVICAL CANCER SCREENING DISCUSSION [facility] Start: 12-20-1970 Third diphtheria, tetanus and acellular pertussis (DTaP) vaccination TDAP (ADULT) [facility] Start: 12-20-1970 Urine microalbumin profile DTaP,Tdap,Td Vaccine (1 - Tdap) [facility] Start: 12-20-1969 Annual PCP Team Chronic Disease Visit Annual PCP Team Chronic Disease Visit [facility] Start: 1950 Hepatitis C screening HEPATITIS C VIRUS SCREENING [facility] Start: 1950 Screening for osteoporosis DEXA SCAN DISCUSSION [facility] Start: 1950 Tetanus vaccination TETANUS [facility] End: 07-23-2024 CT Lumbar spine WO contrast CT LUMBAR SPINE WO IVCON Radiology Routine Chronic bilateral low back pain with bilateral sciatica 1 Occurrences starting 06/24/2023 until 07/23/2024 [facility] Work Phone: Comment on above: 1 Occurrences starting 06/24/2023 until 07/23/2024 End: 07-23-2024 MR Thoracic spine WO contrast MRI THORACIC SPINE WO IVCON Radiology Routine 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 1 Occurrences starting 06/24/2023 until 07/23/2024 [facility] Work Phone: Comment on above: 1 Occurrences starting 06/24/2023 until 07/23/2024 Patient Education Stephanie Non Diagn ostic Block [facility] Work Phone: Patient referral [facility] Work Phone: XR Knee - left 3 Views XR KNEE L EFT 3 VIEWS Imaging Routine Pain in prosthetic joint, sequela Ordered: 09/16/2022 [facility] Comment on above: Ordered: 09/16/2022 XR Pelvis and Hip - left Views X R HIP WITH PELVIS LEFT Imaging Routine Pain in prosthetic joint, sequela 09/18/2022 10:11 AM EDT [facility] Work Phone: [facility] Problems Active Problems Problem Classification Problem Date [...] esophagitis] Onset: 3 01-13-2017 Chronic Essential hypertension (10 sources) Hypertensive disorder; Translations: [Essential hypertension] Onset: [...] leg, initial encounter] Onset: 2 Episodic Osteoarthritis (20 sources) Osteoarthritis of right knee joint; Translations: [Unilateral primary osteoarthritis, right knee] Onset: 3 07-01-2013 Chronic Other aftercare (1 source) Other care home (current) drug therapy; Translations: [OTH ASSISTED CURRENT [...] knee joint] Chronic Other connective tissue disease (4 sources) History of total knee arthroplasty; Translations: [...] syndrome of shoulder region 09-14-2019 Episodic Other connective tissue disease (1 source) Arthrodesis status; Translations: [Adjacent segment disease of lumbar spine with history of fusion procedure] Onset: 4 Episodic Other diseases of veins and lymphatics (17 sources) Peripheral venous insufficiency; Translations: [Venous insufficiency [...] closed fracture] Episodic Other nervous system disorders (15 sources) Chronic pain; Translations: [Other chronic pain] 08-07-2023 Chronic Other nervous system disorders (10 sources) Other chronic pain; Translations: [Other chronic pain] Onset: 4 Chronic Other nervous system disorders [...] Chronic Other nutritional; endocrine; and metabolic disorders (4 sources) Obesity; Translations: [Obesity, unspecified] Onset: 2 06-18-2011 Chronic Other skin disorders (1 source) Disorder of the skin and subcutaneous tissue, unspecified; Translations: [DISORDER SKIN AND SUBQ TISSUE UNS] Onset: 3 Episodic Other skin disorders (1 source) Scar conditions and fibrosis of skin; Translations: [Scar conditions and fibrosis of skin] Onset: 4 Episodic Peripheral and visceral atherosclerosis (3 sources) Peripheral vascular disease; Translations: [Atherosclerosis of [place] arteries of extremities with intermittent claudication, bilateral legs] Onset: 4 09-14-2019 Chronic Phlebitis; thrombophlebitis and thromboembolism (8 [...] left elbow, initial encounter] Episodic Thyroid disorders (17 sources) Hypothyroidism; Translations: [Hypothyroidism, unspecified] Onset: 2 09-14-2019 Chronic Unclassified (3 sources) CONTACT W/AND (SUSP) EXPOS COVID-19; Translations: [CONTACT W/AND (SUSP) EXPOS COVID-19] Onset: 2 Varicose veins of lower extremity (20 sources) [...] Onset: 10-09-2021 Episodic Fracture of lower limb (4 sources) Closed fracture of shaft of fibula; Translations: [Unspecified fracture of shaft of unspecified fibula, initial encounter for closed fracture] Onset: 01-07-2017 01-07-2017 Episodic Inflammation; infection of eye (except that caused by tuberculosis or sexually transmitteddisease) (4 sources) Uveitis; 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] Onset: 07-01-2011 07-01-2011 Episodic Malaise and fatigue (1 source) Other fatigue; Translations: [OTHER FATIGUE] Onset: 05-24-2022 Episodic Nutritional deficiencies (6 sources) Cobalamin deficiency; Translations: [Vitamin B deficiency] [...] Onset: 10-07-2021 Episodic Other connective tissue disease (4 sources) Personal history of other diseases of the musculoskeletal system and connective tissue; Translations: [Personal history of other musculoskeletal disorders] Onset: 07-01-2011 07-01-2011 Episodic Other injuries and conditions due to external causes (4 sources) H/O: knee problem; Translations: [Personal history [...] COLON] Onset: 05-24-2022 Episodic Other skin disorders (4 sources) Loss of hair; Translations: [Nonscarring hair loss, unspecified] Onset: 06-18-2011 06-18-2011 Episodic Residual codes; unclassified (4 sources) History of operative procedure on foot; Translations: [Other specified postprocedural states] Onset: 07-01-2011 04-15-2021 Episodic Residual codes; unclassified (4 sources) Human leukocyte antigen B27 test positive; [...] [CONTACT W/AND (SUSP) EXPOS COVID-19] Onset: 01-03-2022 Procedures Date Procedure Procedure Detail Performing Clinician Start: 08-08-2023 Mri spinal canal tho racic w/o contrast matrl Ghanshyam Lombardi MD Work Phone: Start: 07-13-2023 Ct lumbar spine w/o contrast material Ghanshyam Lombardi MD Work Phone: Start: 06-24-2023 End: 06-24-2023 Radex spine lumbosacral minimum 4 views Ros Cedeño [employer] Work Phone: Start: 05-22-2023 Pulse volume recorde r pneumoplethysmography MD Sara Vick Work Phone: Start: 05-22-2023 Duplex scan of lower limb veins MD Sara Vick Work Phone: Start: 03-25-2023 Local anesthetic sac ral epidural block MD Sara Vick Work Phone: Start: 02-01-2020 Plain X-ray of femur Do karan Vick Start: 02-01-2020 X-ray of right knee Juliet penelope Vick Start: 05-11-2017 Injection of sacroil iac joint using fluoroscopic guidance Wm Nagy Comment on above: left ~ 80 % relief d ay 3 X2 weeks , pain starting to increase Start: 03-09-2017 Transforaminal Epidu ral Steroid Injection 2 [facility] [place] Comment on above: Bilateral L3- 50% re lief starting one week after procedure Start: 02-02-2017 Transforminal epidur al steroid injection 3 Wm [place] Comment on above: Left L3, L4 40% reli ef for couple weeks Start: 02-09-2014 Dilation and curetta ge of uterus Wm Yakov Start: 07-25-2013 lumbar fusion L4-5 ULTRA Testingshahid azucena [place] Start: 06-20-2013 Epidural injection o f lumbar spine using fluoroscopic guidance [employer] Comment on above: L4-5 70-80% relief a nd lasted 1.5 weeks Start: 04-28-2013 Epidural injection o f lumbar spine using fluoroscopic guidance [facility] Comment on above: L5-S1 50% relief Start: 02-21-2013 Injection of facet j oint using fluoroscopic guidance [employer] Comment on above: bilateral L3-S1 FJI 50% relief Start: 01-21-2013 Injection of facet j oint using fluoroscopic guidance [employer] Comment on above: bilateral L3-S1 FJI 0% relief that day, next day 40% relief and 50-60% relief Start: 01-03-2013 Epidural injection o f lumbar spine using fluoroscopic guidance [employer] Comment on above: L5-S1 50% relief Start: 09-02-2012 Epidural injection o f lumbar spine using fluoroscopic guidance [employer] Comment on above: L5-S1 left,, no reli ef, increased pain Start: 07-01-2011 History of repair of musculotendinous cuff of shoulder Status post rotator cuff surgery, right Ghanshyam Lombardi MD Work Phone: Start: 04-20-2011 Excision of ganglion cyst Wm Nagy Start: 07-03-2010 Decompression of median nerve Wm Nagy Start: 07-03-2010 Repair of [...] scope wit h partial meniscectomy Wm Nagy Results Test Name Value Interpretation Reference Range Facility MR Thoracic spine WO contras ton 08-08-2023 [facility] MRI THORACIC SPINE WO IVCONo n 08-08-2023 MRI THORACIC SPINE WO IVCON * * *Final Report* * * DATE OF EXAM: Aug 08 2023 4:14PM QBM 0325 - MRI THORACIC SPINE WO IVCON / PROCEDURE REASON: multiple diagnoses * * * * Physician Interpretation * * * * EXAMINATION: MRI THORACIC SPINE WO IVCON CLINICAL HISTORY: 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 MQ: [id number] COMPARISON: CT lumbar spine dated 07/12/2023. RESULT: Counting reference: Craniocervical and lumbosacral junctions. For the purposes of this report, L4-5 is considered the level of the iliac crest and assume there are 5 lumbar-type vertebrae. Anatomic variant: None. Localizer images: Left shoulder joint effusion. Alignment: Levoscoliosis. Posterior spinal fusion hardware extending from T11 into lumbar spine partially visualized. Artifacts limit evaluation of the lower thoracic spine. Cord: The visualized cord is within normal limits of signal intensity and morphology. Bone marrow signal/fracture: Small T1 hyperintense hemangiomas of T8, T9 vertebral bodies. No evidence of pathologic marrow infiltration. No evidence of prior fracture. Thoracic paraspinal soft tissues: The paraspinal soft tissues are within normal limits. Canal and foramina: Small disc bulges at T3-T4, T4-5, T5-6, T6-T7, T7-T8, no canal or neural foraminal stenosis. The thoracic canal and foramina are patent. IMPRESSION: 1. Evaluation of the lower thoracic spine from T11 is limited due to the susceptibility artifact within of the hardware. 2. Within the limitation, no canal stenosis or neural foraminal stenosis. No cord signal abnormality. Anatomic Thoracic/Lumbar Variant: None. L4-5 is considered the level of the iliac crest and assume there are 5 lumbar-type vertebrae. Website Optimization Strategist: ELAINE Transcribe Date/Time: Aug 08 2023 9:09P Dictated by : HARRY JONES MD This examination was interpreted and the report reviewed and electronically signed by: HARRY JONES MD on Aug 08 2023 9:14PM EST [id number] Normal [facility] BI MAMMOGRAM SCREENING TOMOS YNTHESIS BILATERALon 08-05-2023 BI MAMMOGRAM SCREENING TOMOSYNTHESIS BILATERAL This is a summary report. The complete report is available in the patient's medical record. If you cannot access the medical record, please contact the sending organization for a detailed fax or copy. BI MAMMOGRAM SCREENING TOMOSYNTHESIS BILATERAL:08/05/2023 11:05 AM CLINICAL HISTORY:screen. COMPARISONS: January 23, 20262016 through February 28, 2022. TECHNIQUE: Routine full field 3D breast tomosynthesis was performed bilaterally. CAD analysis was performed and used in the interpretation. FINDINGS: Scattered fibroglandular densities are noted with stable asymmetry. There are no developing masses, suspicious microcalcifications, or areas of architectural distortion identified on today's examination. There is no significant change when compared to the prior examinations identified, given differences in technique and positioning. IMPRESSION: BI-RADS 1- NEGATIVE. ROUTINE FOLLOW-UP MAMMOGRAPHY IS SUGGESTED IN ONE YEAR. DENSITY: Scattered fibroglandular densities. Board Certified Radiologists. Accredited by the ACR and FDA. MAMMOGRAPHY IS VERY IMPORTANT TO YOUR HEALTH. THE [place] [employer] GUIDELINES RECOMMEND THAT WOMEN 40 YEARS OF AGE AND OLDER SHOULD HAVE A MAMMOGRAM EVERY YEAR. A REMINDER LETTER WILL BE SENT AT THE APPROPRIATE TIME. ELECTRONICALLY SIGNED BY: DO Umu Conklin Not Available Comment on above: Order Comment: U/S a nd spot compression if indicated CT LUMBAR SPINE WO IVCONon 0 07-13-2023 [...] are 5 lumbar-type vertebrae. Anatomic variant: None. Wire Coiner (topogram) images: Left femoroacetabular arthroplasty. Alignment: Mild [...] any questions regarding this interpretation, please call [phone]. If you are unable to reach us at the number above, please feel free to contact [facility] at [phone]. [id number] Normal [facility] CT Lumbar spine WO contrasto n 07-13-2023 [facility] CNOVon 06-24-2023 CNOV Office Visit (SPNSMN ) LEELEE CEDILLO ([id number]) 1950 F Date Time Provider Department 06/24/23 [...] Ghanshyam Lombardi MD Referring Provider: SARA VICK [[id number]] Allergies As of Date: 06/24/2023 Noted Allergy Reaction SULFA (SULFONAMIDE ANTIBIOTICS) 07/16/2006 Date Reviewed: 06/24/2023 Reviewed by: Kaur Manzano MA - Fully Assessed Reason for Visit: New Patient [[id number]] Primary Visit Diagnosis:Adjacent segment disease of lumbar spine with history of fusion procedure [M51.36, Z98.1] Other Visit Diagnosis:Chronic bilateral low back pain with bilateral sciatica [M54.42, M54.41, G89.29] Order(s):MRI THORACIC SPINE WO IVCON [[id number]] Order #: [id number] FUTURE CT LUMBAR SPINE WO IVCON [[id number]] Order #: [id number] FUTURE Prescriptions as of 06/24/2023 - pantoprazole [...] by GHANSHYAM LOMBARDI on 06/24/23 Normal [facility] No Panel Informationon 06-23 [facility] XR LUMBAR 4V AP/LAT/ FLEX/EX Ton 06-24-2023 [...] Number of different views (projections): 2 (accession [id number]), 4 (accession [id number]) COMPARISON: Radiographs dated 09/23/2021 RESULT: Counting reference: [...] changes with no evidence of hardware complication. Website Optimization Strategist: PSCB Transcribe Date/Time: Jun 24 2023 12:52P Dictated by : LATASHA QUEZADA MD This examination was interpreted and the report reviewed and electronically signed by: LATASHA QUEZADA MD on Jun 24 2023 12:55PM EST [id number] Normal [facility] XR SCOLIOSIS 2V PA STAND/LAT on [...] Number of different views (projections): 2 (accession [id number]), 4 (accession [id number]) COMPARISON: Radiographs dated 09/23/2021 RESULT: Counting reference: [...] changes with no evidence of hardware complication. Website Optimization Strategist: PSCFranklyn Transcribe Date/Time: Jun 24 2023 12:52P Dictated by : LATASHA QUEZADA MD This examination was interpreted and the report reviewed and electronically signed by: LATASHA QUEZADA MD on Jun 24 2023 12:55PM EST [id number] Normal [facility] US arterial pvr rest Vito US arterial pvr rest [facility] [place] [address] Ultrasound Report Signed Patient: Leelee Cedillo MR#: [id number] 56 : 1950 Acct:[id number] Age/Sex: 72 / F ADM Date: 05/22/23 Loc: UL Room: Type: DEP CLI Attending Dr: Kiran Kessler MD Ordering Provider: [...] Drake Bates M.D.05/25/2023 10:58 AM Dictation Location: [place] [address] Tech: Katy Leone Transcribed By: LISBETH 05/25/23 1058 Dictated By: Drake Bates MD 05/25/23 1057 Signed By: 05/25/23 1058 Normal [facility] US venous duplex LE BIon US venous duplex LE BI [facility] [place] [address] Ultrasound Report Signed Patient: Leelee Cedillo MR#: [id number] 57 : 1950 Acct:[id number] Age/Sex: 72 / F ADM Date: 05/22/23 Loc: UL Room: Type: DEP CLI Attending Dr: Kiran Kessler MD Ordering Provider: [...] vein has previously been stripped. No significant precision inspector incompetence is noted. The lesser saphenous vein [...] Drake Bates M.D.05/25/2023 10:57 AM Dictation Location: [place] [address] Tech: Katy Leone Transcribed By: LISBETH 05/25/23 1057 Dictated By: Drake Bates MD 05/25/23 1055 Signed By: 05/25/23 1057 Normal [facility] ED Note-Physicianon 11-26-19 ED Note-Physician Normal [facility] Comment on above: Result Comment: Elec tronically Signed By: Sathya De La O PA-C\.br\Date and Time Signed: 11/22/22 14:13 EDT\.br\Electronically Co-Signed By: Flavio Castillo MD\.br\Date and Time Co-Signed: 11/25/22 13:23 EDT Consent for Treatmenton Consent for Treatment [id number]#1.0 0CD:127 Normal [facility] Discharge Instructionson Discharge Instructions [id number]#1. 00CD:127 Normal [facility] ED Clinical Summaryon 2022 ED Clinical Summary Normal Stefania wu [facility] ED Patient Education Noteon 11-22-2022 ED Patient Education Note Normal [facility] ED Patient Summaryon 023 ED Patient Summary Normal [facility] Neurology Forms- Texton Neurology Forms- Text [id number]#1. 00CD:127 Normal [facility] EEGon 09-11-2022 EEG [facility] Comment on above: Result Comment: Elec tronically Signed By: Jonathan Powell DO\.br\Date and Time Signed: 09/11/22 10:41 EDT Consent for Treatmenton 08-19 Consent for Treatment [id number]#1.0 0CD:127 Normal [facility] Physician Orderon 09-03-2022 Physician Order [id number]#1.0 0CD:127 Normal [facility] VC CONSULT FOLLOWUPon 2022 VC CONSULT FOLLOWUP Patient: ITZEL CEDILLO Exam Date: 08/08/2022 : 1950 Gender:F Ordering : DR ALFRED UMAÑA M.D. Admission #: [id number] Family : Order #: [id number] CLICK HERE TO VIEW EXAM RADIOLOGY REPORT [...] Alfred Umaña MD on 08/08/2022 at 10:59 [facility] EXT VENOUS LT LIMITEDon 0 08-08-2022 VC EXT VENOUS LT LIMITED Patient: LEELEE CEDILLO Exam Date: 08/08/2022 : 1950 Gender:F Ordering : DR ALFRED UMAÑA M.D. Admission #: [id number] Family : Order #: [id number] CLICK HERE TO VIEW EXAM RADIOLOGY REPORT [...] Alfred Umaña MD on 08/08/2022 at 09:43 [facility] Coding Summary.on 07-29-2022 Coding Summary. Normal [facility] Insurance Correspondenceon 0 07-29-2022 Insurance Correspondence [id number]#1.0 0CD:127 Normal [facility] Insurance Correspondence Off iceon 07-29-2022 Insurance Correspondence Office [id number]#1. 00CD:127 Normal [facility] Discharge Instructionson Discharge Instructions [id number]#1. 00CD:127 Normal [facility] QumB5xfy 07-28-2022 HbA1c (Bld) [Mass fraction] 5.3 % Normal <=5.9 [facility] Comment on above: Performed By: #### 2 409320, 8470809, 1956614, 4630330, 092515189, 66833459 ####[facility] [address] [place] [id number] Insurance Correspondenceon 0 07-28-2022 Insurance Correspondence [id number]#1. 00CD:127 Normal [facility] C. diff by PCRon 07-27-2022 Clostridium difficile by PCR Negative Normal Negative [facility] Comment on above: Order Comment: Order added by Discern Expert. Result Comment: This test result should be correlated with clinical presentations and medical history by a healthcare provider to determine its clinical significance. Performed By: #### 3 [id number], [id number], [id number] ####[facility] [address] [place] [address] CDiff PCRon 07-27-2022 Cdiff Specimen Acceptable Acceptable Normal [facility] Comment on above: Performed By: #### 3 [id number], [id number], [id number] ####[facility] [address] [place] [address] Order Cancelled No, PCR to follow Normal [facility] Comment on above: Performed By: #### 3 [id number], [id number], 976742352 ####[facility] [address] [place] [address] CHEMISTRYOrdered By: SYSTEM SYSTEM on 07-27-2022 Anion [...] Remisol Consultation Noteon 07-28-19 Consultation Note Normal [facility] Comment on above: Result Comment: Elec tronically Signed By: Rachel MEEHAN, Smita Reardon\.br\Date and Time Signed: 07/27/22 07:14 EDT\.br\Electronically Co-Signed By: Jonathan Powell DO\.br\Date and Time Co-Signed: 07/27/22 10:23 EDT EMS Documentationon 07-28-19 EMS Documentation Normal [facility] Enteric Panel by PCRon 07-27 C. coli+jejuni+upsaliens is DNA VIVIANA+non-probe Ql (Stl) Not detected Normal [facility] Comment on above: Result Comment: Test ing was performed utilizing reverse senior clinical project manager (RT), polymerase chain reaction (PCR), and array [...] nulcleic acid test. Performed By: #### 3 [id number], [id number], 779345672 ####[facility] [address] [place] [address] E. coli stx1+stx2 genes VIVIANA+non-probe Ql (Stl) Negative Normal [facility] Comment on above: Performed By: #### 3 [id number], [id number], [id number] ####[facility] [address] [place] [address] Enteric Panel Intrl QC Pass Normal [facility] Comment on above: Result Comment: Test ing was performed utilizing reverse senior clinical project manager (RT), polymerase chain reaction (PCR), and array [...] 1 and 2. Performed By: #### 3 [id number], [id number], 054824264 ####[place] [address] [place] [address] Norovirus genogroup I+II RNA VIVIANA+non-probe Ql (Stl) Not detected Normal [facility] Comment on above: Performed By: #### 3 [id number], [id number], 982808879 ####[place] [address] Rotavirus A RNA VIVIANA+non-probe Ql (Stl) Not detected Normal [facility] Comment on above: Performed By: #### 3 [id number], [id number], 638703932 ####[place] [address] S. enterica+bongori DNA VIVIANA+non-probe Ql (Stl) Not detected Normal [facility] Comment on above: Result Comment: This test result should be correlated with clinical presentations and medical history by a healthcare provider to determine its clinical significance. Performed By: #### 3 [id number], [id number], 888995826 ####[place] [address] Shigella species+EIEC invasion plasmid antigen H ipaH gene VIVIANA+non-probe Ql (Stl) Not detected Normal [facility] Comment on above: Performed By: #### 3 [id number], 6348488126, 909924783 ####[place] [address] V. cholerae+parahaemolyt icus+vulnificus DNA VIVIANA+non-probe Ql (Stl) Not detected Normal [facility] Comment on above: Performed By: #### 3 714852320, [id number], 988193992 ####[place] [address] Y. enterocolitica DNA VIVIANA+non-probe Ql (Stl) Not detected Normal [facility] Comment on above: Performed By: #### 3 051021806, [id number], 312214550 ####[facility] [address] [place] [address] Free T4on 07-27-2022 Free T4 [Mass/Vol] 1.91 ng/dL High 0.58-1.64 [facility] Comment on above: Order Comment: Free T4 added by Discern Rule due to a TSH result of <0.34 or >5.60. Performed By: #### 2 656772, 6530749, 6035994, 4949769, 784300327, 17172632 ####[facility] [address] [place] [address] HEMATOLOGYOrdered By: Tonya Martin on 07-27-2022 WBC corrected for nucl RBC Auto (Bld) [#/Vol] 7.8 E9/L Normal 4.0 - 11.0 E9/L [facility] [place] [place] HemeAutoSS Inpatient Clinical Summaryon 07-27-2022 Inpatient Clinical Summary Normal [facility] Inpatient Patient Summaryon 07-27-2022 Inpatient Patient Summary Normal [facility] Interdisciplinary Note - Oumar e Manageron 07-27-2022 Interdisciplinary Note - Systems Mgr Normal [facility] Comment on above: Result Comment: Elec tronically Signed By: Tonya Matias\Date and Time Signed: 07/27/22 12:04 EDT Interdisciplinary Note - Pipe n 07-27-2022 Interdisciplinary Note - OT Normal [facility] Interdisciplinary Note - PTo n 07-27-2022 Interdisciplinary Note - PT PT eval completed; pt scores 16/24 on the AM-PAC 6-Clicks 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 Pt is able to safely perform bed <> chair transfers as she was doing prior to admission and has no further PT needs at this time. Normal [facility] Lipid Panelon 07-27-2022 Cholesterol [Mass/Vol] 160 mg/dL Normal 120-200 [facility] Comment on above: Performed By: #### 2 441222, 3060342, 2357959, 4643422, 981922175, 64527656 ####[facility] [address] [place] [address] Cholesterol in HDL [Mass/Vol] 52 mg/dL Invalid Interpretation Code [facility] Comment on above: Result Comment: HDL > or equal to 60 mg/dL: Low cardiovascular riskHDL < 40 mg/dL : High cardiovascular risk Performed By: #### 2 138200, 6545157, 4981534, 7916756, 550120250, 90286181 ####[facility] [address] [place] [address] Cholesterol in LDL [Mass/Vol] 91 mg/dL Normal <=129 [facility] Comment on above: Performed By: #### 2 424680, 5826892, 0079867, 8417346, 305564788, 92835651 ####[facility] [address] [place] [address] Cholesterol in VLDL [Mass/Vol] 17 mg/dL Normal 7-40 [facility] Comment on above: Performed By: #### 2 979078, 3055768, 4359822, 3415054, 739078896, 58424397 ####[facility] [address] [place] [address] Triglyceride [Mass/Vol] 83 mg/dL Normal <=149 [facility] Comment on above: Performed By: #### 2 111227, 8454521, 9024074, 2621948, 418538528, 47998065 ####[facility] [address] [place] [address] Lyteson 07-27-2022 Anion gap [Moles/Vol] 9 mmol/L Normal 6-16 [facility] Comment on above: Performed By: #### 2 815153, 9817714, 2978258, 9945468, 556044768, 32695251 ####[facility] [address] [place] [address] Chloride [Moles/Vol] 106 mmol/L Normal 101-111 [facility] Comment on above: Performed By: #### 2 449395, 9973189, 1381741, 2142520, 038529004, 60287817 ####[facility] [address] [place] [address] CO2 [Moles/Vol] 26 mmol/L Normal 21-31 [facility] Comment on above: Performed By: #### 2 881180, 3923275, 3366819, 7485209, 336366011, 80014903 ####[facility] [address] [place] [address] Potassium [Moles/Vol] 4.0 mmol/L Normal 3.5-5.3 [facility] Comment on above: Performed By: #### 2 885582, 2980222, 0677137, 2392127, 484930256, 44371246 ####[facility] [address] [place] [address] Sodium [Moles/Vol] 137 mmol/L Normal 135-145 [facility] Comment on above: Performed By: #### 2 666965, 3243493, 9901233, 2707327, 312878384, 70491405 ####[facility] [address] [place] [address] MRA Head w/o Contraston -0 MRA Head w/o Contrast Normal [facility] MRI Brain w/o Contraston MRI Brain w/o Contrast Normal [facility] Monitor Recordon 07-27-2022 Monitor Record [id number]#1. 00CD:127 Normal [facility] Monitor Record [id number]#1. 00CD:127 Normal [facility] Patient Education - Texton 0 07-27-2022 Patient Education - Text Normal [facility] RAD - MRI Screening Formon 0 07-27-2022 RAD - MRI Screening Form [id number]#1. 00CD:127 Normal [facility] TSH With T4fr Reflexon 07-27 TSH Qn 0.16 m[IU]/L Low 0.34-5.60 [facility] Comment on above: Performed By: #### 2 403938, 1698859, 8832596, 9175306, 736487577, 31188842 ####[facility] [address] [place] [address] Troponin 9 Hr.on 07-27-2022 Troponin I.cardiac [Mass/Vol] 6.70 pg/mL Low 10.10-27.10 [facility] Comment on above: Result Comment: The 95% CI (Confidence Interval) PPV (Positive Predictive Value) for myocardial infarction in females is 38 pg/mL, in males 51 pg/mL. The results should be used in conjunction with clinical conditions of myocardial infarction.(Access High Sensitivity Troponin I Instructions For Use, [employer], November 2017) Performed By: #### 1 [id number] ####[facility] [address] [place] [address] WBCon 07-27-2022 WBC corrected for nucl RBC Auto (Bld) [#/Vol] 7.8 E9/L Normal 4.0-11.0 [facility] Comment on above: Performed By: #### 2 085048, 9364290, 5197319, 9516027, 723091399, 04717456 ####[facility] [address] [place] [address] Auto Diffon 07-26-2022 Basophils/100 WBC (Bld) 0.5 % Normal 0.0-2.0 [facility] Comment on above: Order Comment: Order Added by Discern Expert. Performed By: #### 2 184506, 0121390, 7269109, 3077399, 98955806, 10935131 ####[facility] [address] [place] [address] Basophils/Leukocytes Auto (Bld) [Pure # fraction] 0.1 E9/L Normal 0.0-0.2 [facility] Comment on above: Order Comment: Order Added by Discern Expert. Performed By: #### 2 911736, 9552840, 6709115, 4977654, 78095229, 93729626 ####[address] [address] Eosinophils/100 WBC (Bld) 0.5 % Normal 0.0-8.0 [facility] Comment on above: Order Comment: Order Added by Discern Expert. Performed By: #### 2 814274, 3255281, 2357930, 6266996, 35746310, 16235699 ####[address] [address] Eosinophils/Leukocyte s Auto (Bld) [Pure # fraction] 0.1 E9/L Normal 0.0-0.5 [facility] Comment on above: Order Comment: Order Added by Discern Expert. Performed By: #### 2 710899, 6214511, 9831362, 6072964, 73668776, 95917265 ####[address] [address] Lymphocytes/100 WBC (Bld) 14.5 % Normal 14.0-50.0 [facility] Comment on above: Order Comment: Order Added by Discern Expert. Performed By: #### 2 983089, 1053625, 7619606, 6108427, 62029286, 13292268 ####[address] [address] Lymphocytes/Leukocyte s Auto (Bld) [Pure # fraction] 2.1 E9/L Normal 1.0-4.0 [facility] Comment on above: Order Comment: Order Added by Discern Expert. Performed By: #### 2 388376, 6957600, 0929597, 6184790, 78800788, 20133667 ####[address] [address] Monocytes/100 WBC (Bld) 6.5 % Normal 4.0-14.0 [facility] Comment on above: Order Comment: Order Added by Discern Expert. Performed By: #### 2 277970, 8554229, 0021563, 8145957, 84770532, 82292506 ####[place] [address] [place] [address] Monocytes/Leukocytes Auto (Bld) [Pure # fraction] 0.9 E9/L Normal 0.2-1.0 [facility] Comment on above: Order Comment: Order Added by Discern Expert. Performed By: #### 2 299352, 3666021, 2922654, 7827290, 80008139, 15513275 ####[place] [address] [place] [address] Neutrophils/100 WBC (Bld) 78.0 % High 36.0-75.0 [facility] Comment on above: Order Comment: Order Added by Discern Expert. Performed By: #### 2 946377, 0776020, 2306373, 9084857, 50221496, 31455158 ####[place] [address] [place] [address] Neutrophils/Leukocyte s Auto (Bld) [Pure # fraction] 11.4 E9/L High 2.0-7.5 [facility] Comment on above: Order Comment: Order Added by Discern Expert. Performed By: #### 2 858613, 2531978, 7769848, 4624121, 03309964, 63069811 ####[place] [address] [place] [address] BMPon 07-26-2022 Anion gap [Moles/Vol] 13 mmol/L Normal 6-16 [facility] Comment on above: Performed By: #### 2 951478, 8909476, 3027385, 0731148, 50326901, 68057056 ####[place] [address] [place] [address] Calcium [Mass/Vol] 9.3 mg/dL Normal 8.9-11.1 [facility] Comment on above: Performed By: #### 2 306568, 3100182, 4104028, 5375932, 52086077, 42255957 ####[place] [address] [place] [address] Chloride [Moles/Vol] 101 mmol/L Normal 101-111 [facility] Comment on above: Performed By: #### 2 781556, 9841945, 1698895, 4624698, 03754259, 73403426 ####[facility] [address] [place] [address] CO2 [Moles/Vol] 27 mmol/L Normal 21-31 [facility] Comment on above: Performed By: #### 2 662200, 0152234, 0713513, 6949913, 35312055, 06082474 ####[facility] [address] [place] [address] Creatinine [Mass/Vol] 0.8 mg/dL Normal 0.5-1.3 [facility] Comment on above: Performed By: #### 2 060759, 8635553, 2561519, 0617847, 23501736, 85387637 ####[facility] [address] [place] [address] Glucose [Mass/Vol] 88 mg/dL Normal 55-199 [facility] Comment on above: Result Comment: If t his glucose result represents a fasting glucose, interpretation should refer to the following reference range: 55-99 mg/dL Performed By: #### 2 202498, 3441599, 6027244, 0299849, 31011043, 76745182 ####[facility] [address] [place] [address] Potassium [Moles/Vol] 3.6 mmol/L Normal 3.5-5.3 [facility] Comment on above: Performed By: #### 2 696984, 2496336, 9765491, 2057185, 25372178, 05288528 ####[facility] [address] [place] [address] Sodium [Moles/Vol] 137 mmol/L Normal 135-145 [facility] Comment on above: Performed By: #### 2 208715, 5215124, 4977891, 1752696, 58997101, 11035367 ####[facility] [address] [place] [address] Urea nitrogen [Mass/Vol] 11 mg/dL Normal 5-21 [facility] Comment on above: Performed By: #### 2 122422, 4054287, 9514722, 6554155, 67681554, 15739322 ####[facility] [address] [place] [address] Urea nitrogen/Creatinine [Mass ratio] 14 No Units Normal 10-20 [facility] Comment on above: Performed By: #### 2 509153, 3198609, 3921142, 2689265, 80942657, 60190358 ####[facility] [address] [place] [address] CBC w/ Auto Diffon 3 Erythrocyte distribution width (RBC) [Ratio] 13.9 % Normal 10.9-14.2 [facility] Comment on above: Performed By: #### 2 113807, 6985592, 8597419, 6649453, 48233753, 23251115 ####[facility] [address] [place] [address] Hematocrit (Bld) [Volume fraction] 47.0 % High 34.0-46.0 [facility] Comment on above: Performed By: #### 2 927384, 5348713, 3081450, 1014307, 70540295, 29300611 ####[facility] [address] [place] [address] Hemoglobin (Bld) [Mass/Vol] 15.3 g/dL Normal 12.0-16.0 [facility] Comment on above: Performed By: #### 2 389250, 3046995, 6880002, 8133864, 49678814, 94159204 ####[facility] [address] [place] [address] MCH (RBC) [Entitic mass] 29.2 pg Normal 27.0-34.0 [facility] Comment on above: Performed By: #### 2 315246, 0916115, 1863037, 4377550, 31542724, 97221428 ####[address] [address] MCHC (RBC) [Mass/Vol] 32.7 g/dL Normal 31.4-36.0 [facility] Comment on above: Performed By: #### 2 806219, 7971617, 2062914, 6604887, 46465470, 99165839 ####[address] [address] MCV (RBC) [Entitic vol] 89.3 fL Normal 80.0-100.0 [facility] Comment on above: Performed By: #### 2 723233, 6656414, 1789604, 8125938, 38270671, 29609009 ####[address] [address] Platelet mean volume (Bld) [Entitic vol] 6.7 fL Normal 6.4-10.8 [facility] Comment on above: Performed By: #### 2 690220, 3597894, 5152258, 3912671, 15290363, 57927472 ####[address] [address] Platelets (Bld) [#/Vol] 324.0 E9/L Normal 150.0-500.0 [facility] Comment on above: Performed By: #### 2 235922, 4431999, 3499442, 9750208, 50946806, 29740557 ####[address] [address] RBC (Bld) [#/Vol] 5.3 E12/L Normal 4.3-5.9 [facility] Comment on above: Performed By: #### 2 905903, 9474746, 9615511, 1187355, 29770717, 85680974 ####[address] [address] WBC corrected for nucl RBC Auto (Bld) [#/Vol] 14.6 E9/L High 4.0-11.0 [facility] Comment on above: Performed By: #### 2 146262, 8003094, 2237607, 5688752, 20152946, 80941120 ####[facility] [address] [place] [address] CHEMISTRYOrdered By: SYSTEM SYSTEM on 07-26-2022 Anion gap [Moles/Vol] 13 mmol/L Normal 6 - 16 mEq/L [facility] Remisol Calcium [Mass/Vol] 9.3 mg/dL Normal 8.9 - 11. 1 mg/dL [facility] Remisol Chloride [Moles/Vol] 101 mmol/L Normal 101 - 1 11 mmol/L [facility] Remisol CO2 [Moles/Vol] 27 mmol/L Normal 21 - 31 mmol/L [facility] Remisol Creatinine [Mass/Vol] 0.8 mg/dL Normal 0.5 - 1.3 mg/dL [facility] Remisol GFR/1.73 sq M.predicted among blacks MDRD (S/P/Bld) [Vol rate/Area] mL/min/1.73 m2 Normal >=59mL/min/1 .73 m2 [facility] S GFR/1.73 sq M.predicted among non-blacks MDRD (S/P/Bld) [Vol rate/Area] mL/min/1.73 m2 Normal >=59mL/min/1 .73 m2 [facility] [place] Chem S Glucose [Mass/Vol] 88 mg/dL Normal 55 - 199 mg/dL [facility] Remisol Magnesium [Mass/Vol] 2.0 mg/dL Normal 1.3 - 2 .4 mg/dL [facility] Remisol Potassium [Moles/Vol] 3.6 mmol/L Normal 3.5 - 5.3 mmol/L [facility] Remisol Sodium [Moles/Vol] 137 mmol/L Normal 135 - 145 mmol/L [facility] Remisol Troponin I.cardiac [Mass/Vol] 6.00 pg/mL Low 10.10 - 27.10 pg/mL [facility] Remisol Troponin I.cardiac [Mass/Vol] 5.40 pg/mL Low 10.10 - 27.10 pg/mL [facility] Remisol Troponin I.cardiac [Mass/Vol] 6.70 pg/mL Low 10.10 - 27.10 pg/mL [facility] [place] Remisol Urea nitrogen [Mass/Vol] 11 mg/dL Normal 5 - 21 mg/dL [facility] [place] Remisol Urea nitrogen/Creatinine [Mass ratio] 14 mg/mg Normal 10 - 20 [facility] [place] Remisol CHEMISTRYOrdered By: Lab ROP User on 07-26-2022 Glucose [Mass/Vol] 106 mg/dL High 55 - 99 mg/dL [facility] [place] POC Subsection Comment on above: Result Comment: [place] GIL POC Device SN [id number] Invalid Interpretation Code [facility] [place] POC Subsection POC User ID [id number] Invalid Interpretation Code [facility] [place] POC Subsection POC Username SHANKAR ABARCA Invalid Interpretation Code [facility] [place] POC Subsection CT Head or Brain w/o Contras ton 07-26-2022 CT Head or Brain w/o Contrast Normal [facility] Capillary Glucose POCon Glucose [Mass/Vol] 106 mg/dL High 55-99 [facility] Comment on above: Result Comment: [facility] GIL Performed By: #### 2 [id number] ####[facility] [address] [place] [address] Consent for Treatmenton Consent for Treatment [id number]#1.0 0CD:127 Normal [facility] ED Clinical Summaryon 2022 ED Clinical Summary Normal [facility] ED Note-Physicianon 07-27-19 ED Note-Physician Normal [facility] Comment on above: Result Comment: Elec tronically Signed By: Yaritza Cedeño PA-C\.br\Date and Time Signed: 07/26/22 14:17 EDT\.br\Electronically Co-Signed By: Lance Wu M.D.\.br\Date and Time Co-Signed: 07/26/22 15:36 EDT ED Patient Education Noteon 07-26-2022 ED Patient Education Note Normal [facility] ED Patient Summaryon 023 ED Patient Summary Normal [facility] HEMATOLOGYOrdered By: SYSTEM SYSTEM on 07-26-2022 [...] 32.7 g/dL Normal 31.4 - 36.0 gm/dL [facility] HemeAutoSS MCV (RBC) [Entitic vol] 89.3 fL Normal 80.0 - 100.0 fL [facility] HemeAutoSS Platelet mean volume (Bld) [Entitic vol] 6.7 fL Normal 6.4 - 10.8 fL [facility] HemeAutoSS Platelets (Bld) [#/Vol] 324.0 E9/L Normal 150.0 - 500.0 E9/L [facility] HemeAutoSS RBC (Bld) [#/Vol] 5.3 E12/L Normal 4.3 - 5.9 E12/L [facility] HemeAutoSS WBC corrected for nucl RBC Auto (Bld) [#/Vol] 14.6 E9/L High 4.0 - 11.0 E9/L [facility] [place] HemeAutoSS Magnesiumon 07-26-2022 Magnesium [Mass/Vol] 2.0 mg/dL Normal 1.3-2.4 [facility] Comment on above: Performed By: #### 2 [id number], [id number], [id number], [id number], [id number], [id number] ####[facility] [address] [place] [address] Monitor Recordon 07-26-2022 Monitor Record [id number]. [id number]:[id number] Normal [facility] Pre-Arrival Noteon 3 Pre-Arrival Note Normal [facility] Troponin 0 Hr.on 07-26-2022 Troponin I.cardiac [Mass/Vol] 6.60 pg/mL Low 10.10-27.10 [facility] Comment on above: Order Comment: pt st ill in imaging, will check back later [id number] 07/26/2022 12:32:06 EDT Result Comment: The 95% CI (Confidence Interval) PPV (Positive Predictive Value) for myocardial infarction in females is 38 pg/mL, in males 51 pg/mL. The results should be used in conjunction with clinical conditions of myocardial infarction.(Access High Sensitivity Troponin I Instructions For Use, Christy Dahlgren, November 2017) Performed By: #### 2 [id number], [id number], [id number], [id number], [id number], [id number] ####[facility] [address] [place] [address] Troponin 3 Hr.on 07-26-2022 Troponin I.cardiac [Mass/Vol] 6.00 pg/mL Low 10.10-27.10 [facility] Comment on above: Result Comment: The 95% CI (Confidence Interval) PPV (Positive Predictive Value) for myocardial infarction in females is 38 pg/mL, in males 51 pg/mL. The results should be used in conjunction with clinical conditions of myocardial infarction.(Access High Sensitivity Troponin I Instructions For Use, dotSyntax, November 2017) Performed By: #### 1 [id number] ####[address] [address] Troponin 6 Hr.on 07-26-2022 Troponin I.cardiac [Mass/Vol] 5.40 pg/mL Low 10.10-27.10 [facility] Comment on above: Result Comment: The 95% CI (Confidence Interval) PPV (Positive Predictive Value) for myocardial infarction in females is 38 pg/mL, in males 51 pg/mL. The results should be used in conjunction with clinical conditions of myocardial infarction.([employer] High Sensitivity Troponin I Instructions For Use, dotSyntax, November 2017) Performed By: #### 1 [id number] ####[facility] [address] [place] [address] UA With Cult Reflexon 2022 Bacteria LM Ql (Urine sed) TRACE Normal Trace [facility] Comment on above: Performed By: #### 1 [id number] ####[address] [address] Bilirubin Ql (U) Negative Normal Negative [facility] Comment on above: Performed By: #### 1 [id number] ####[facility] [address] [place] [address] Clarity (U) CLEAR Normal Clear [facility] Comment on above: Performed By: #### 1 [id number] ####[address] [address] Color (U) YELLOW Normal Yellow [facility] Comment on above: Performed By: #### 1 [id number] ####[address] [address] Epithelial cells.squamous LM.HPF (Urine sed) [#/Area] 3-4 Normal 0-2 [facility] Comment on above: Performed By: #### 1 [id number] ####[facility] [address] [place] [address] Glucose Test strip (U) [Mass/Vol] Negative Normal Negative [facility] Comment on above: Performed By: #### 1 [id number] ####[facility] [address] [place] [address] Hemoglobin Ql (U) Negative Normal Negative [facility] Comment on above: Performed By: #### 1 [id number] ####[facility] [address] [place] [address] Ketones (U) [Mass/Vol] Negative Normal Negative [facility] Comment on above: Performed By: #### 1 [id number] ####[address] [place] [address] Wilber.plasma/Lithiu m.RBC (Bld) [Mass ratio] 0-3 Normal 0-3 [facility] Comment on above: Performed By: #### 1 [id number] ####[facility] [address] [place] [address] Nitrite Ql (U) Negative Normal Negative [facility] Comment on above: Performed By: #### 1 [id number] ####[address] [place] [address] pH (U) 6.5 [pH] Invalid Interpretation Code 5.0-9.0 [facility] Comment on above: Performed By: #### 1 [id number] ####[facility] [address] [place] [address] Protein (U) [Mass/Vol] Negative Normal Negative [facility] Comment on above: Performed By: #### 1 [id number] ####[address] [place] [address] Specific gravity (U) [Rel density] <=1.005 Invalid Interpretation Code 1.005-1.030 [facility] Comment on above: Performed By: #### 1 [id number] ####[facility] [address] [place] [address] Type of Urine collection method Clean Catch Normal [facility] Comment on above: Performed By: #### 1 [id number] ####[facility] [address] [place] [address]457 Urobilinogen Qn (U) 0.2 {Malu'U}/dL Normal 0.0-1.0 [facility] Comment on above: Performed By: #### 1 [id number] ####[facility] [address] [place] [address]457 WBC Auto Ql (U) TRACE Abnormal Negative [facility] Comment on above: Performed By: #### 1 [id number] ####[facility] [address] [place] [address]457 WBC LM.HPF (Urine sed) [#/Area] 0-5 Normal 0-5 [facility] Comment on above: Performed By: #### 1 [id number] ####[facility] [address] [place], [place] [address] URINALYSISOrdered By: Katerina Parker on 07-26-2022 Bacteria [...] PM) Normal Negative [facility] UA Auto SS Wilber.plasma/Lithiu m.RBC (Bld) [Mass ratio] 0-3 /HPF Normal 0-3/HPF [facility] UA Auto SS Nitrite Ql (U) Negative (07/26/22 4:49 PM) Normal Negative [facility] UA Auto SS pH (U) 6.5 *NA* (07/26/22 4:49 PM) Invalid Interpretation Code 5.0 - 9.0 [facility] UA Auto SS Protein (U) [Mass/Vol] Negative (07/26/22 4:49 PM) Normal Negative [facility] [place] UA Auto SS Specific gravity (U) [Rel density] <=1.005 *NA* (07/26/22 4:49 PM) Invalid Interpretation Code 1.005 - 1.030 [facility] [place] UA Auto SS UA Spec Desc Clean Catch (07/26/22 4:49 PM) Normal [facility] [place] UA Auto SS Urobilinogen Qn (U) 0.3078390 {Malu'U}/dL Normal 0.0 - 1.0 EU/dL [facility] [place] UA Auto SS WBC Auto Ql (U) Trace *ABN* (07/26/22 4:49 PM) Invalid Interpretation Code Negative [facility] [place] UA Auto SS WBC LM.HPF (Urine sed) [#/Area] 0-5 /HPF Normal 0-5/HPF [facility] [place] UA Auto SS XR Chest Single Viewon 07-26 XR Chest Single View Normal [facility] eGFRon 07-26-2022 GFR/1.73 sq M.predicted among blacks MDRD (S/P/Bld) [Vol rate/Area] mL/min/{1.73_m2} Normal >=59 [facility] Comment on above: Order Comment: Order added by Discern Expert. Result Comment: eGFR is race adjusted. AA=. Performed By: #### 2 [id number], [id number], 4387211, 5638884, [id number], [id number] ####[facility] [address] [place] [address] GFR/1.73 sq M.predicted among non-blacks MDRD (S/P/Bld) [Vol rate/Area] mL/min/{1.73_m2} Normal >=59 [facility] Comment on above: Order Comment: Order added by Discern Expert. Result Comment: Investigator Internal Affairs gina kidney disease could be indicated at eGFR's of less than 60 mL/min/1.73m2. Kidney failure is indicated at less than 15 mL/min/1.73m2. Performed By: #### 2 [id number], [id number], [id number], [id number], [id number], [id number] ####[facility] [address] [place] [address] SURGICAL PATH REPORTon 07-25 SURGICAL PATH REPORT [facility] Department of Pathology [address] [place] [id number] Name: LEELEE CEDILLO : 1950 [employer] [id number] Number: Gender Female Nimesh MARTINEZ OSWALDO : n: Admit 71 years Attending ADELE FLEMING Age: Provider: Ordering ADELE FLEMING Provider: Consulti Surgical Pathology Report ng: ACCESSION: COLLECTED DATE/TIME: RECEIVED DATE/TIME: PATHOLOGIST: [id number] 07/24/2022 12:16 EDT 07/24/2022 12:16 EDT MICHELINE STERN MD Final Diagnosis Report for [facility], [place] RIGHT ANKLE, PUNCH BIOPSY: - FRAGMENT [...] transversely and entirely submitted in one cassette. MP:b 07/24/2022 Tissue pathology report for: [facility], [address] [place] [address], [place], [place] [address]; ____ ____ Print 07/25/2022 15:48 EDT Number: Date/Time: [facility] Department of Pathology [id number] [place] [address] [phone] Name: LEELEE CEDILLO : 1950 [facility] [id number] Number: Gender Female Nimesh SOWEVUE : n: Admit 71 years Attending ADELE FLEMING Age: Provider: Ordering ADELE FLEMING Provider: Consulti Surgical Pathology Report ng: ACCESSION: COLLECTED DATE/TIME: RECEIVED DATE/TIME: PATHOLOGIST: [id number] 07/24/2022 12:16 EDT 07/24/2022 12:16 EDT LEENA RUFF, MICHELINE Gross Description PATHOLOGY SERVICES PROVIDED BY [employer] (CLIA #[id number]) in cooperation with [facility] at [address] [place] [address] ( CLIA #[id number]) Microscopic Diagnosis The final diagnosis is based on a microscopic exam of event representative sections. Codes CPT CODE: 72124 ____ ____ Print 07/25/2022 15:48 EDT Number: Date/Time: Normal [facility] Comment on above: Performed By: #### 9 [id number] #### [facility] [address] [place] [address] Cartridge Filler: Jared Oh MD POINT OF CARE GLUCOSEon 04-0 Glucose [Mass/Vol] 112 mg/dL Critically high 74-106 [facility] Comment on above: Performed By: #### P OCGLUC #### [facility] [address] [place] [address] Dr. Salvador Yung Glucose [Mass/Vol] 114 mg/dL Critically high 74-106 [facility] Comment on above: Performed By: #### P OCGLUC #### [facility] [address] [place], [place] [id number] Dr. Salvador Yung EMS Documentationon 07-21-19 EMS Documentation Normal [facility] Covid-19 PCR (CVDTBH)on 06-20 SARS-CoV-2 (COVID-19) RNA VIVIANA+probe Ql (Unsp spec) Not detected Normal NOT DETECTED [facility] Comment on above: Result Comment: This test is not yet approved or cleared by the [place] FDA. When there are no FDA-approved or cleared tests available, and other criteria are met, FDA can make tests available under an emergency access mechanism called an Emergency Use Authorization (EUA). The EUA for this test is supported by the Skid Wrapper of Health and Human Service's (HHS's) declaration [...] SARS-CoV-2. Performed By: #### C VDTBH #### [facility] [address] [place], [place] [address] Dr. Salvador Yung PROF CHEM 8 (BAS METB)on Anion gap [Moles/Vol] 12.0 mmol/L Normal [facility] Comment on above: Performed By: #### B MP #### [facility] [address] [place] [address] Dr. Salvador Yung Calcium [Mass/Vol] 9.4 mg/dL Normal 8.5-10.1 [facility] Comment on above: Performed By: #### B MP #### [facility] [address] [address] [address] Salvador Yung Chloride [Moles/Vol] 100 mmol/L Normal 98-107 [facility] Comment on above: Performed By: #### B MP #### [facility] [address] [address] [address] Salvador Yung CO2 [Moles/Vol] 29.8 mmol/L Normal 21.0-32.0 [facility] Comment on above: Performed By: #### B MP #### [facility] [address] [place] [address] Dr. Salvador Yung Creatinine [Mass/Vol] 0.91 mg/dL Normal 0.55-1.[address] [facility] Comment on above: Performed By: #### B MP #### [facility] [address] [address] [address] Salvador Yung EGFR-AF NORWEGIAN >60 Normal >=60 [facility] Comment on above: Performed By: #### B MP #### [facility] [address] [place] [address] Dr. Salvador Yung EGFR-NON AF NORWEGIAN >60 Normal >=60 [facility] Comment on above: Performed By: #### B MP #### [facility] [address] [address] [address] Salvador Yung Glucose [Mass/Vol] 82 mg/dL Normal 74-106 [facility] Comment on above: Performed By: #### B MP #### [facility] [address] [address] [address] Salvador Yung Potassium [Moles/Vol] 3.8 mmol/L Normal 3.5-5.1 [facility] Comment on above: Performed By: #### B MP #### [facility] [address] [place] [address] Dr. Salvador Yung Sodium [Moles/Vol] 138 mmol/L Normal 136-145 [facility] Comment on above: Performed By: #### B MP #### [facility] [address] [place], [place] [address] Dr. Salvador Yung Urea nitrogen [Mass/Vol] 12.0 mg/dL Normal 7.0-18.[address] [facility] Comment on above: Performed By: #### B MP #### [facility] [address] [place], [place] [address] Dr. Salvador Yung Urea nitrogen/Creatinine [Mass ratio] 13.2 mg/mg Normal [facility] Comment on above: Performed By: #### B MP #### [facility] [address] [place], [place] [address] Dr. Salvador Yung VC INJ SCL JESSICA RADIO REPAIRMAN VEINSon 0 07-01-2022 VC INJ SCL JESSICA RADIO REPAIRMAN VEINS Patient: LEELEE CEDILLO Exam Date: 07/01/2022 : 1950 Gender:F Ordering : DR ALFRED UMAÑA M.D. Admission #: [id number] Family : Order #: [id number] CLICK HERE TO VIEW EXAM RADIOLOGY REPORT [...] Lobato M.D. on 07/01/2022 at 15:[address] [facility] VC CONSULT FOLLOWUPon 2022 VC CONSULT FOLLOWUP Patient: ITZEL CEDILLO Exam Date: 06/19/2022 : 1950 Gender:F Ordering : DR ALFRED UMAÑA M.D. Admission #: [id number] Family : Order #: [id number] CLICK HERE TO VIEW EXAM RADIOLOGY REPORT [...] Umaña MD on 06/19/2022 at 14:[address] [facility] VC EXT VENOUS LT LIMITEDon 0 06-19-2022 VC EXT VENOUS LT LIMITED Patient: LEELEE CEDILLO Exam Date: 06/19/2022 : 1950 Gender:F Ordering : DR ALFRED UMAÑA M.D. Admission #: [id number] Family : Order #: [id number] CLICK HERE TO VIEW EXAM RADIOLOGY REPORT [...] Umaña MD on 06/19/2022 at 14:[address] [facility] VC INJ FOAM SCLERO W US MLTI on 06-13-2022 VC INJ FOAM SCLERO W US MLTI Patient: LEELEE CEDILLO Exam Date: 06/13/2022 : 1950 Gender:F Ordering : DR ALFRED UMAÑA M.D. Admission #: [id number] Family : Order #: [id number] CLICK HERE TO VIEW EXAM RADIOLOGY REPORT [...] duple (more content not included)... Normal [facility] VC CONSULT FOLLOWUPon 2022 VC CONSULT FOLLOWUP Patient: ITZEL CEDILLO SHA Fuentes Exam Date: 06/10/2022 : 1950 Gender:F Ordering : DR ALFRED UMAÑA M.D. Admission #: [id number] Family : Order #: [id number] CLICK HERE TO VIEW EXAM RADIOLOGY REPORT [...] Lobato M.D. on 06/10/2022 at 12:[address] [facility] VC EXT VENOUS RT LIMITEDon 0 06-10-2022 VC EXT VENOUS RT LIMITED Patient: EATLEELEE ROSALES Exam Date: 06/10/2022 : 1950 Gender:F Ordering : DR ALFRED UMAÑA M.D. Admission #: [id number] Family : Order #: [id number] CLICK HERE TO VIEW EXAM RADIOLOGY REPORT [...] Julio Lobato M.D. on 06/10/2022 at 12:33 [facility] VC INJ FOAM SCLERO W US MLTI on 06-03-2022 VC INJ FOAM SCLERO W US MLTI Patient: LEELEE CEDILLO Exam Date: 06/03/2022 : 1950 Gender:F Ordering : DR ALFRED UMAÑA M.D. Admission #: [id number] Family : Order #: [id number] CLICK HERE TO VIEW EXAM RADIOLOGY REPORT PROCEDURE: VEIN CENTER INJECTION FOAM SCLEROSING SOLUTION WITH ULTRASOUND MULTIPLE VEINS COMPARISON: None. Pre-operative Diagnosis: CEAP class C6 venous insufficiency with pain, tenderness, edema and incompetent right small saphenous vein and precision inspector vein, incompetent varicose veins, venous insufficiency right leg secondary to venous incompetence Post-operative Diagnosis: CEAP class C6 venous insufficiency with pain, tenderness, edema and incompetent right small saphenous vein and precision inspector vein, incompetent varicose veins, venous insufficiency right [...] l (more content not included)... Normal [facility] VC CONSULT FOLLOWUPon 2022 VC CONSULT FOLLOWUP Patient: ITZEL CEDILLO Exam Date: 05/28/2022 : 1950 Gender:F Ordering : DR ALFRED UMAÑA M.D. Admission #: [id number] Family : Order #: [id number] CLICK HERE TO VIEW EXAM RADIOLOGY REPORT [...] Umaña MD on 05/28/2022 at 11:[address] [facility] VC EXT VENOUS RT LIMITEDon 0 05-28-2022 VC EXT VENOUS RT LIMITED Patient: LEELEE CEDILLO Exam Date: 05/28/2022 : 1950 Gender:F Ordering : DR ALFRED UMAÑA M.D. Admission #: [id number] Family : Order #: [id number] CLICK HERE TO VIEW EXAM RADIOLOGY REPORT [...] extends to distal lower leg. Thrombus in precision inspector distal medial lower leg 2.8 mm from [...] MD on 05/28/2022 at 11:30 Normal [facility] CBC AUTO DIFFon 05-21-2022 BASO # 0.1 103/ul Normal 0.0-0.[address] [facility] Comment on above: Performed By: #### C BC #### [facility] [address] [place] [address] Dr. Salvador Yung Basophils/100 WBC (Bld) 0.6 % Normal 0.2-2.[address] [facility] Comment on above: Performed By: #### C BC #### [facility] [address] [address] [address] Salvador Yung EO # 0.1 103/ul Normal 0.0-0.[address] [facility] Comment on above: Performed By: #### C BC #### [facility] [address] [place] [address] Dr. Salvador Yung Eosinophils/100 WBC (Bld) 0.6 % Critically low 0.9-7.[address] [facility] Comment on above: Performed By: #### C BC #### [facility] [address] [place] [address] Dr. Salvador Yung Erythrocyte distribution width (RBC) [Ratio] 12.4 % Normal 11.0-15.[address] [facility] Comment on above: Performed By: #### C BC #### [facility] [address] [place] [address] Dr. Salvador Yung Hematocrit (Bld) [Volume fraction] 43.1 % Normal 36.0-48.[address] [facility] Comment on above: Performed By: #### C BC #### [facility] [address] [place] [address] Dr. Salvador Yung Hemoglobin (Bld) [Mass/Vol] 13.8 g/dL Normal 12.0-16.[address] [facility] Comment on above: Performed By: #### C BC #### [facility] [address] [place] [address] Dr. Salvador Yung IG # 0.06 10e3/ul Critically high 0.00-0.03 [facility] Comment on above: Performed By: #### C BC #### [facility] [address] [place] [address] Dr. Salvador Yung IG % 0.7 % Critically high 0.0-0.5 [facility] Comment on above: Performed By: #### C BC #### [facility] [address] [place] [address] Dr. Salvador Yung LYMPH # 1.7 103/ul Normal 1.2-3.[address] [facility] Comment on above: Performed By: #### C BC #### [facility] [address] [place] [address] Dr. Salvador Yung Lymphocytes/100 WBC (Bld) 20.2 % Critically low 20.5-60.[address] [facility] Comment on above: Performed By: #### C BC #### [facility] [address] [place] [address] Dr. Salvador Yung MANUAL DIFF REQ NO Normal [facility] Comment on above: Performed By: #### C BC #### [facility] [address] [place] [address] Dr. Salvador Yung MCH (RBC) [Entitic mass] 30.1 pg Normal 26.7-34.[address] [facility] Comment on above: Performed By: #### C BC #### [facility] [address] [place] [address] Dr. Salvador Yung MCHC (RBC) [Mass/Vol] 32.0 g/dL Normal 29.9-35.[address] [facility] Comment on above: Performed By: #### C BC #### [facility] [address] [place] [address] Dr. Salvador Yung MCV (RBC) [Entitic vol] 93.9 fL Normal 81.0-99.0 [facility] Comment on above: Performed By: #### C BC #### [facility] [address] [place] [address] Dr. Salvador Yung MONO # 0.5 103/ul Normal 0.3-0.[address] [facility] Comment on above: Performed By: #### C BC #### [facility] [address] [place] [address] Dr. Salvador Yung Monocytes/100 WBC (Bld) 6.1 % Normal 1.7-12.[address] [facility] Comment on above: Performed By: #### C BC #### [facility] [address] [place] [address] Dr. Salvador Yung NEUT # 6.1 103/ul Normal 1.4-6.5 [facility] Comment on above: Performed By: #### C BC #### [facility] [address] [place] [address] Dr. Salvador Yung Neutrophils/100 WBC (Bld) 71.8 % Normal 43.0-75.[address] [facility] Comment on above: Performed By: #### C BC #### [facility] [address] [place] [address] Dr. Salvador Yung Platelet mean volume (Bld) [Entitic vol] 8.2 fL Critically low 9.5-13.[address] [facility] Comment on above: Performed By: #### C BC #### [facility] [address] [place] [address] Dr. Salvador Yung PLT 246 103/ul Normal 150-450 [facility] Comment on above: Performed By: #### C BC #### [facility] [address] [place] [address] Dr. Salvador Yung RBC 4.59 106/ul Normal 4.20-5.40 [facility] Comment on above: Performed By: #### C BC #### [facility] [address] [place] [address] Dr. Salvador Yung WBC 8.5 103/ul Normal 4.0-11.0 [facility] Comment on above: Performed By: #### C BC #### [facility] [address] [place] [address] Dr. Salvador Yung FREE T3on 05-21-2022 FREE T3 2.14 pg/mlL Critically low 2.18-3.98 [facility] Comment on above: Performed By: #### P OCGLUC #### [facility] [address] [address] [address] Salvador Yung GLYCOHEMOGLOBIN A1Con 2022 ADA RECOMMENDATION SEE BELOW Normal [facility] Comment on above: Result Comment: ADA RECOMMENDED LIMIT 4.0 - 6.0 ADA THERAPEUTIC TARGET < 7.0 ACTION SUGGESTED > 7.0 Performed By: #### P OCGLUC #### [facility] [address] [address] [address] Salvador Yung Glucose [Mass/Vol] 100 mg/dL Normal [facility] Comment on above: Performed By: #### P OCGLUC #### [facility] [address] [place] [address] Dr. Salvador Yung HbA1c (Bld) [Mass fraction] 5.1 % Normal 4.5-6.[address] [facility] Comment on above: Performed By: #### P OCGLUC #### [facility] [address] [place] [address] Dr. Salvador Yung LIPID PROFILEon 05-21-2022 CHOL-HDL RATIO NORM SEE BELOW Normal [facility] Comment on above: Result Comment: 3.3 - 4.4 LOW RISK 4.4 - 7.1 AVERAGE RISK 7.1 - 11.0 MODERATE RISK >11.0 HIGH RISK Performed By: #### P OCGLUC #### [facility] [address] [place] [address] Dr. Salvador Yung Cholesterol [Mass/Vol] 164 mg/dL Normal <=[address] [facility] Comment on above: Performed By: #### P OCGLUC #### [facility] [address] [place] [address] Dr. Salvador Yung Cholesterol in HDL [Mass/Vol] 61 mg/dL Critically high 40-[address] [facility] Comment on above: Performed By: #### P OCGLUC #### [facility] [address] [place] [address] Dr. Salvador Yung Cholesterol in LDL [Mass/Vol] 90.2 mg/dL Normal [facility] Comment on above: Performed By: #### P OCGLUC #### [facility] [address] [place] [address] Dr. Salvador Yung Cholesterol.total/Cho lesterol in HDL [Mass ratio] 2.7 {ratio} Normal [facility] Comment on above: Performed By: #### P OCGLUC #### [facility] [address] [address] [address] Salvador Yung HDL NORMAL > or = 60 mg/dl - LO W CARDIOVASCULAR RISK <40 mg/dl - HIGH CARDIOVASCULAR RISK Normal [facility] Comment on above: Performed By: #### P OCGLUC #### [facility] [address] [address] [address] Salvador Yung LDL CALC NORMAL SEE BELOW Normal [facility] Comment on above: Result Comment: <100 mg/dl OPTIMAL 100 - 129 mg/dl NEAR OR ABOVE OPTIMAL 130 - 159 mg/dl BORDERLINE HIGH 160 - 189 mg/dl HIGH >190 mg/dl VERY HIGH Performed By: #### P OCGLUC #### [facility] [address] [address] [address] Salvador Yung Triglyceride [Mass/Vol] 64 mg/dL Normal <=[address] [facility] Comment on above: Performed By: #### P OCGLUC #### [facility] [address] [address] [address] Salvador Yung VLDL CALC 12.8 mg/dL Normal [facility] Comment on above: Performed By: #### P OCGLUC #### [facility] [address] [address] [address] Salvador Yung PROF 14(COMP METB)on 023 Albumin [Mass/Vol] 3.2 g/dL Critically low 3.4-5.0 Th [facility] Comment on above: Performed By: #### P OCGLUC #### [facility] [address] [address] [address] Salvador Yung Albumin/Globulin [Mass ratio] 0.7 {ratio} Normal [facility] Comment on above: Performed By: #### P OCGLUC #### [facility] [address] [address] [address] Salvador Yung ALP [Catalytic activity/Vol] 68 U/L Normal 46-[address] [facility] Comment on above: Performed By: #### P OCGLUC #### [facility] [address] [address] [address] Salvador Yung ALT [Catalytic activity/Vol] 25 U/L Normal 14-[address] [facility] Comment on above: Performed By: #### P OCGLUC #### [facility] [address] [address] [address] Salvador Yung Anion gap [Moles/Vol] 11.8 mmol/L Normal [facility] Comment on above: Performed By: #### P OCGLUC #### [facility] [address] [address] [address] Salvador Yung AST [Catalytic activity/Vol] 20 U/L Normal 15-[address] [facility] Comment on above: Performed By: #### P OCGLUC #### [facility] [address] [address] [address] Salvador Yung Bilirubin [Mass/Vol] 0.5 mg/dL Normal 0.2-1.[address] [facility] Comment on above: Performed By: #### P OCGLUC #### [facility] [address] [address] [address] Salvador Yung Calcium [Mass/Vol] 8.9 mg/dL Normal 8.5-10.1 [facility] Comment on above: Performed By: #### P OCGLUC #### [facility] [address] [address] [address] Salvador Yung Chloride [Moles/Vol] 105 mmol/L Normal 98-[address] [facility] Comment on above: Performed By: #### P OCGLUC #### [facility] [address] [address] [address] Salvador Yung CO2 [Moles/Vol] 29.9 mmol/L Normal 21.0-32.0 [facility] Comment on above: Performed By: #### P OCGLUC #### [facility] [address] [address] [address] Salvador Yung Creatinine [Mass/Vol] 0.74 mg/dL Normal 0.55-1.[address] [facility] Comment on above: Performed By: #### P OCGLUC #### [facility] [address] [address] [address] Salvador Yung EGFR-AF [place] >60 Normal >=60 [facility] Comment on above: Performed By: #### P OCGLUC #### [facility] [address] [address] [address] Salvador Yung EGFR-NON AF [place] >60 Normal >=60 [facility] Comment on above: Performed By: #### P OCGLUC #### [facility] [address] [address] [address] Salvador Yung Globulin (S) [Mass/Vol] 4.3 g/dL Normal [facility] Comment on above: Performed By: #### P OCGLUC #### [facility] [address] [address] [address] Salvador Yung Glucose [Mass/Vol] 88 mg/dL Normal 74-106 [facility] Comment on above: Performed By: #### P OCGLUC #### [facility] [address] [address] [address] Salvador Yung Potassium [Moles/Vol] 3.7 mmol/L Normal 3.5-5.[address] [facility] Comment on above: Performed By: #### P OCGLUC #### [facility] [address] [address] [address] Salvador Yung Protein [Mass/Vol] 7.5 g/dL Normal 6.4-8.2 [facility] Comment on above: Performed By: #### P OCGLUC #### [facility] [address] [address] [address] Salvador Yung Sodium [Moles/Vol] 143 mmol/L Normal 136-145 [facility] Comment on above: Performed By: #### P OCGLUC #### [facility] [address] [address] [address] Salvador Yung Urea nitrogen [Mass/Vol] 11.0 mg/dL Normal 7.0-18.[address] [facility] Comment on above: Performed By: #### P OCGLUC #### [facility] [address] [place] [address] Dr. Salvador Yung Urea nitrogen/Creatinine [Mass ratio] 14.9 mg/mg Normal [facility] Comment on above: Performed By: #### P OCGLUC #### [facility] [address] [place] [address] Dr. Salvador Yung T4on 05-21-2022 T4 [Mass/Vol] 11.60 ug/dL Normal 4.80-13.[address] [facility] Comment on above: Performed By: #### P OCGLUC #### [facility] [address] [place] [address] Dr. Salvador Yung TSHon 05-21-2022 TSH 0.165 uIU/mL Critically low 0.358-3.740 [facility] Comment on above: Performed By: #### P OCGLUC #### [facility] [address] [place] [address] Dr. Salvador Yung VC ENDOVENOUS ABL 1ST V RTon 05-21-2022 VC ENDOVENOUS ABL 1ST V RT Patient: LEELEE CEDILLO Exam Date: 05/21/2022 : 1950 Gender:F Ordering : DR ALFRED UMAÑA M.D. Admission #: [id number] Family : Order #: [id number] CLICK HERE TO VIEW EXAM RADIOLOGY REPORT [...] MD on 05/21/2022 at 13:51 Normal [facility] VITAMIN D 25 OHon 05-21-2022 VIT D 25-OH 25.1 ng/mL Normal [facility] Comment on above: Performed By: #### V ITAD #### [facility] [address] [place] [address] Dr. Salvador Yung VIT D RANGES SEE BELOW Normal [facility] Comment on above: Result Comment: <20 ng/mL Vit D deficient 20 - <30 ng/mL Vit D insufficient 30 - 100 ng/mL Vit D sufficient >100 ng/mL Potential Toxicity Performed By: #### V ITAD #### [facility] [address] [address] [address] Salvador Yung XR HIP LT 2 [...] MARI LORENZO Date: 2022-05-21 16:26 Normal [facility] VC COMP CONSULTATIONon 05-01 VC COMP CONSULTATION Patient: REAGAN CEDILLO Exam Date: 05/01/2022 : 1950 Gender:F Ordering : DR. ADELE FLEMING DKimberleePMaribel Admission #: [id number] Family : Order #: [id number] CLICK HERE [...] small saphenous vein, right lower extremity incompetent precision inspector veins, and bilateral lower extremity incompetent branch [...] arterial disease 5. CEAP: C6, EC, AP, ID PLAN: 1. Continued use of compression stockings 2. Elevated legs and increased physical activity symptomatic relief 3. Endovenous laser ablation of right small saphenous vein and precision inspector vein. 4. Microfoam chemical ablation of dilated, [...] Lobato M.D. on 05/01/2022 at 15:27 Normal [facility] VC VENOUS REFLUX SAMI LMTon 0 05-01-2022 VC VENOUS REFLUX SAMI LMT Patient: LEELEE CEDILLO Exam Date: 05/01/2022 : 1950 Gender:F Ordering : DR. ADELE JimPMaribel Admission #: [id number] Family : DR ALFRED UMAÑA M.D. Order #: [id number] CLICK HERE TO VIEW EXAM RADIOLOGY REPORT [...] chronic thrombus visualized Compressibility: Normal Flow: Normal [employer]: Dist/med calf 2.6mm with 0s reflux. Mid/med calf 3.5mm with 0s reflux. Tech Note: GSV has been previously stripped. Patent varicose vein mid/med calf 2.3mm with 0.5s reflux. Patent varicose vein prox/med calf 3.4mm with 1.2s reflux. Patent varicose vein dist/med thigh 5.4mm with 0.8s reflux. CONCLUSION: 1. Dilated, incompetent right small saphenous vein. 2. Dilated, incompetent precision inspector veins and bilateral lower extremity branch saphenous varicosities. 3. Consultation for endovenous laser ablation is recommended. Dictated by: Julio Lobato M.D. on 05/01/2022 at 14:06 Approved by: Julio Lobato M.D. on 05/01/2022 at 14:[address] [facility] Coding Summary.on 03-11-2022 Coding Summary. Normal [facility] ED Traumaon 03-09-2022 ED Trauma [id number]#1. 00CD:127 Normal [facility] Consent for Procedure/Surger yon 03-08-2022 Consent for Procedure/Surgery [id number]#1. 00CD:127 Normal [facility] Consent for Treatmenton 02-18 Consent for Treatment [id number]#1.0 0CD:127 [facility] [place] Discharge Instructionson Discharge Instructions [id number]#1. 00CD:127 Normal [facility] ED Clinical Summaryon 2021 ED Clinical Summary Normal [facility] ED Note-Physicianon 03-08-20 ED Note-Physician Normal [facility] Comment on above: Result Comment: Elec tronically Signed By: Yakov MCGINNIS, Wm Collins.br\Date and Time Signed: 03/08/22 21:11 EST ED Patient Education Noteon 03-08-2022 ED Patient Education Note Normal [facility] ED Patient Summaryon 022 ED Patient Summary Normal [facility] EMS Documentationon 03-08-20 EMS Documentation Normal [facility] Monitor Recordon 03-08-2022 Monitor Record [id number]#1. 00CD:127 Normal [facility] Monitor Record [id number]#1. 00CD:127 Normal [facility] Pre-Arrival Noteon Pre-Arrival Note Normal [facility] Respiratory Therapy Noteson 03-08-2022 Respiratory Therapy Notes conscious sedation on Eaton, Leelee. Used co2 monitor and one liter of 02. patient maintained 38 co2 and 99 O2. Last approx 40 min. Normal [facility] XR Hip 2-3 Views Left + Pelv yasir 03-08-2022 XR Hip 2-3 Views Left + Pelvis Normal [facility] XR Hip 2-3 Views Left + Pelvis Normal [facility] BLEEDING TIMEon 03-06-2022 BLEEDING TIME 10.5 min Critically high 1.0-8.0 [facility] Comment on above: Performed By: #### B LTM #### [facility] [address] [place] [address] Dr. Salvador Yung CBC AUTO DIFFon 03-06-2022 BASO # 0.1 103/ul Normal 0.0-0.[address] [facility] Comment on above: Performed By: #### C BC #### [facility] [address] [place] [address] Dr. Salvador Yung Basophils/100 WBC (Bld) 0.7 % Normal 0.2-2.[address] [facility] Comment on above: Performed By: #### C BC #### [facility] [address] [place] [address] Dr. Salvador Yung EO # 0.1 103/ul Normal 0.0-0.[address] [facility] Comment on above: Performed By: #### C BC #### [facility] [address] [place] [address] Dr. Salvador Yung Eosinophils/100 WBC (Bld) 0.7 % Critically low 0.9-7.[address] [facility] Comment on above: Performed By: #### C BC #### [facility] [address] [place] [address] Dr. Salvador Yung Erythrocyte distribution width (RBC) [Ratio] 12.9 % Normal 11.0-15.[address] [facility] Comment on above: Performed By: #### C BC #### [facility] [address] [place] [address] Dr. Salvador Yung Hematocrit (Bld) [Volume fraction] 41.3 % Normal 36.0-48.[address] [facility] Comment on above: Performed By: #### C BC #### [facility] [address] [place] [address] Dr. Salvador Yung Hemoglobin (Bld) [Mass/Vol] 13.7 g/dL Normal 12.0-16.[address] [facility] Comment on above: Performed By: #### C BC #### [facility] [address] [place] [address] Dr. Salvador Yung IG # 0.05 10e3/ul Critically high 0.00-0.03 [facility] Comment on above: Performed By: #### C BC #### [facility] [address] [place] [address] Dr. Salvador Yung IG % 0.7 % Critically high 0.0-0.5 [facility] Comment on above: Performed By: #### C BC #### [facility] [address] [place] [address] Dr. Salvador Yung LYMPH # 1.4 103/ul Normal 1.2-3.[address] [facility] Comment on above: Performed By: #### C BC #### [facility] [address] [place] [address] Dr. Salvador Yung Lymphocytes/100 WBC (Bld) 18.9 % Critically low 20.5-60.[address] [facility] Comment on above: Performed By: #### C BC #### [facility] [address] [place] [address] Dr. Salvador Yung MANUAL DIFF REQ NO Normal [facility] Comment on above: Performed By: #### C BC #### [facility] [address] [place] [address] Dr. Salvador Yung MCH (RBC) [Entitic mass] 30.3 pg Normal 26.7-34.[address] [facility] Comment on above: Performed By: #### C BC #### [facility] [address] [place] [address] Dr. Salvador Yung MCHC (RBC) [Mass/Vol] 33.2 g/dL Normal 29.9-35.[address] [facility] Comment on above: Performed By: #### C BC #### [facility] [address] [place] [address] Dr. Salvador Yung MCV (RBC) [Entitic vol] 91.4 fL Normal 81.0-99.[address] [facility] Comment on above: Performed By: #### C BC #### [facility] [address] [place] [address] Dr. Salvador Yung MONO # 0.7 103/ul Normal 0.3-0.[address] [facility] Comment on above: Performed By: #### C BC #### [facility] [address] [place] [address] Dr. Salvador Yung Monocytes/100 WBC (Bld) 9.9 % Normal 1.7-12.[address] [facility] Comment on above: Performed By: #### C BC #### [facility] [address] [place] [address] Dr. Salvador Yung NEUT # 5.2 103/ul Normal 1.4-6.[address] [facility] Comment on above: Performed By: #### C BC #### [facility] [address] [address] [address] Salvador Yung Neutrophils/100 WBC (Bld) 69.1 % Normal 43.0-75.[address] [facility] Comment on above: Performed By: #### C BC #### [facility] [address] [address] [address] Salvador Yung Platelet mean volume (Bld) [Entitic vol] 7.9 fL Critically low 9.5-13.[address] [facility] Comment on above: Performed By: #### C BC #### [facility] [address] [place] [address] Dr. Salvador Yung PLT 223 103/ul Normal 150-450 [facility] Comment on above: Performed By: #### C BC #### [facility] [address] [place] [address] Dr. Salvador Yung RBC 4.52 106/ul Normal 4.20-5.[address] [facility] Comment on above: Performed By: #### C BC #### [facility] [address] [place] [address] Dr. Salvador Yung WBC 7.5 103/ul Normal 4.0-11.0 [facility] Comment on above: Performed By: #### C BC #### [facility] [address] [place] [address] Dr. Salvador Yung IRONon 03-06-2022 Iron [Mass/Vol] 83.0 ug/dL Normal 50.0-170.0 [facility] Comment on above: Performed By: #### I ESTEFANY #### [facility] [address] [place] [address] Dr. Salvador Yung PROTIMEon 03-06-2022 INR Coag (PPP) [Relative time] 0.95 {INR} Normal [facility] Comment on above: Performed By: #### P TT, PT #### [facility] [address] [place] [address] Dr. Salvador Yung INR GUIDELINES SEE BELOW Normal [facility] Comment on above: Result Comment: YOJANA RED INR: 2.0 - 3.0 CONDITIONS NOT LISTED BELOW 2.5 - 3.5 FOR PROSTHETIC HEART VALVE REPLACEMENT 2.5 - 3.5 RECURRENT THROMBOSIS Performed By: #### P TT, PT #### [facility] [address] [place], [place] [address] Dr. Salvador Yung PT Coag (PPP) [Time] 10.3 s Normal 9.0-11.6 [facility] Comment on above: Performed By: #### P TT, PT #### [facility] [address] [place], [place] [address] Dr. Salvador Yung PTTon 03-06-2022 aPTT Coag (Bld) [Time] 22.1 s Critically low 22.3-36.[address] [facility] Comment on above: Performed By: #### P TT, PT #### [facility] [address] [place], [place] [address] Dr. Salvador Yung SCREENING MAMMOGRAM W/DANIEL, BILATERAL*on [...] IS VERY IMPORTANT TO YOUR HEALTH. CURRENT [place] [employer] GUIDELINES RECOMMENDS ANNUAL MAMMOGRAPHY BEGINNING AT AGE 40. THIS FACILITY USUALLY USES A REMINDER SYSTEM TO ENSURE ALL POSITIONS RECEIVED REMINDER NOTIFICATIONS AT THE TIME BASED ON THE RECOMMENDATIONS OF THIS EXAM. Report reported and signed by Julio Martines on 02/28/2022 1602 Normal [facility] Covid-19 PCR (CVDTBH)on 12-19 SARS-CoV-2 (COVID-19) RNA VIVIANA+probe Ql (Unsp spec) Not detected Normal NOT DETECTED [facility] Comment on above: Result Comment: This test is not yet approved or cleared by the [place] FDA. When there are no FDA-approved or cleared tests available, and other criteria are met, FDA can make tests available under an emergency access mechanism called an Emergency Use Authorization (EUA). The EUA for this test is supported by the [employer] of Health and Human Service's (HHS's) declaration [...] SARS-CoV-2. Performed By: #### P OCGLUC #### [facility] [address] [place] [address] Dr. Salvador Yung MRI [facility]ST[facility]OMA WO CONon 12-11-19 MRI [facility] WO CON HISTORY: Chronic low back pain with left leg pain. Prior low back surgery. Lumbar disc disease. MRI LSTACOMA WO CON: 12/09/2021 10:11 AM EDT COMPARISON: [...] by: SARA LAUREN Date: 2021-12-10 12:[address] [facility] COVID-19 Positive/Negativeon 05-04-2020 COVID-19 Positive/Negative Negative Negative [facility] Comment on above: Testing for SARS-CoV -2 by RT-PCRThis test was developed and its performance characteristics determined by [employer] ([employer]) and validated at the [facility]. This test has not been FDA cleared [...] Otheron 05-04-2020 Coronavirus 2019 PCR Interp N/A [facility] Automated basophil %on 04-24 Basophils/100 WBC (Bld) 0.6 % [facility] Automated basophil counton 0 04-24-2020 Basophils (Bld) [#/Vol] 0.0 10*3/uL 0.0-0.2 [facility] Automated blood lymphocyte c ount (number/volume)on 04-24-2020 Lymphocytes (Bld) [#/Vol] 1.0 10*3/uL 1.00-4.8 [facility] Automated blood lymphocyte c ount as percentage of total leukocyteson 04-24-2020 Lymphocytes/100 WBC (Bld) 17.0 % [facility] Automated blood monocyte cou nton 04-24-2020 Monocytes (Bld) [#/Vol] 0.3 10*3/uL 0.0-0.8 [facility] Automated blood platelet cou nt (count/volume)on 04-24-2020 Platelets (Bld) [#/Vol] 224 10*3/uL 150-450 [facility] Automated blood platelet vikki n volume measurementon 04-24-2020 Platelet mean volume (Bld) [Entitic vol] 7.2 fL 6.3-10.7 [facility] Automated eosinophil %on Eosinophils/100 WBC (Bld) 3.5 % [facility] Automated eosinophil counton 04-24-2020 Eosinophils (Bld) [#/Vol] 0.2 10*3/uL 0.0-0.45 [facility] Automated erythrocyte distri bution width ratioon 04-24-2020 Erythrocyte distribution width (RBC) [Ratio] 13.0 % 11.9-15.3 [facility] Automated erythrocyte mean c orpuscular hemoglobin (mass per erythrocyte)on 04-24-2020 MCH (RBC) [Entitic mass] 27.7 pg 24.7-34.3 [facility] Automated erythrocyte mean c orpuscular hemoglobin concentration measurement (mass/volon 04-24-2020 MCHC (RBC) [Mass/Vol] 33.2 g/dL 32.0-35.0 [facility] Automated erythrocyte mean c orpuscular volumeon 04-24-2020 MCV (RBC) [Entitic vol] 83.3 fL 80-100 [facility] Automated erythrocytes count in urine sediment (number/area)on 04-24-2020 RBC Auto (Urine sed) [#/Area] None seen [HPF] [facility] Automated leukocytes count i n urine sediment (number/area)on 04-24-2020 WBC Auto (Urine sed) [#/Area] 0-1 [HPF] [facility] Automated monocyte %on 04-24 Monocytes/100 WBC (Bld) 6.1 % [facility] Automated neutrophil %on Neutrophils/100 WBC (Bld) 72.8 % [facility] Automated urine color determ inationon 04-24-2020 Color (U) Yellow Yellow [facility] Blood erythrocytes automated count (number/volume)on 04-24-2020 RBC (Bld) [#/Vol] 4.50 10*6/uL 3.60-5.00 [facility] Blood hemoglobin measurement (mass/volume)on 04-24-2020 Hemoglobin (Bld) [Mass/Vol] 12.5 g/dL 11.8-15.4 [facility] Blood leukocytes automated c ount (number/volume)on 04-24-2020 WBC (Bld) [#/Vol] 5.7 10*3/uL 3.8-11.6 [facility] Blood neutrophil count by au tomated method (number/volume)on 04-24-2020 Neutrophils (Bld) [#/Vol] 4.2 10*3/uL 1.8-7.7 [facility] Estimated glomerular filtrat ion rate (GFR) non- Americanon 04-24-2020 GFR/1.73 sq M predicted among non-blacks MDRD (S/P/Bld) [Vol rate/Area] mL/min/{1.73_m2} [facility] Hematocrit [Volume Fraction] of Blood by Automated counton 04-24-2020 Hematocrit (Bld) [Volume fraction] 37.5 % 34.0-46.4 [facility] Otheron 04-24-2020 GFR/1.73 sq M.predicted MDRD (S/P/Bld) [Vol rate/Area] mL/min/{1.73_m2} [facility] Comment on above: GFR estimated refere nce range: According to KDOQI guidelines, <60 ml/min/1.73m2 is sufficient to diagnose a patient with chronic kidney disease. Nucleated RBC/100 WBC (Bld) [Ratio] 0.1 % 0-0.5 [facility] Creatinine Clearance (Chem N/A [facility] Serum or plasma calcium kelly urement (mass/volume)on 04-24-2020 Calcium [Mass/Vol] 9.3 mg/dL 8.2-10.2 [facility] Serum or plasma chloride vikki surement (moles/volume)on 04-24-2020 Chloride [Moles/Vol] 101 mmol/L 95-114 [facility] Serum or plasma creatinine m easurement with calculation of estimated glomerular filtron 04-24-2020 Creatinine [Mass/Vol] 0.88 mg/dL 0.44-1.03 [facility] Serum or plasma glucose kelly urement [...] (moles/volume)on 04-24-2020 Potassium [Moles/Vol] 3.8 mmol/L 3.5-5.1 [facility] Serum or plasma sodium measu rement (moles/volume)on 04-24-2020 Sodium [Moles/Vol] 136 mmol/L 136-146 [facility] Serum or plasma total carbon dioxide measurement (moles/volume)on 04-24-2020 CO2 [Moles/Vol] 23.1 mmol/L 22.0-30.0 [facility] Serum or plasma urea nitroge n measurement (mass/volume)on 04-24-2020 Urea nitrogen [Mass/Vol] 10 mg/dL 9-23 [facility] Specific gravity of Urine by Automated test stripon 04-24-2020 Specific gravity (U) [Rel density] 1.007 1.001-1.030 [facility] Squamous epithelial cells de tection in urine sediment by light microscopyon 04-24-2020 Epithelial cells.squamous LM Ql (Urine sed) None seen [HPF] [facility] Urinalysison 04-24-2020 Hyaline casts LM Ql (Urine sed) None seen [LPF] [facility] Urine bacteria detection by automated methodon 04-24-2020 Bacteria Auto Ql (U) None seen None Seen [facility] Urine clarity by refractomet ry automatedon 04-24-2020 Clarity Refractometry automated (U) Clear Clear [facility] Urine glucose measurement by automated test strip (mass/volume)on 04-24-2020 Glucose Auto test strip (U) [Mass/Vol] Normal mg/dL Normal [facility] Urine hemoglobin detection b y automated test stripon 04-24-2020 Hemoglobin Auto test strip Ql (U) Negative Negative [facility] Urine ketones measurement by automated test strip (mass/volume)on 04-24-2020 Ketones (U) [Mass/Vol] Negative Negative [facility] Urine leukocyte esterase det ection by automated test stripon 04-24-2020 Leukocyte esterase Auto test strip Ql (U) 1+ Negative [facility] Urine nitrite detection by t est stripon 04-24-2020 Nitrite Ql (U) Negative Negative [facility] Urine pH measurement by auto mated test stripon 04-24-2020 pH (U) 5.5 [pH] 5.0-9.0 [facility] Urine protein measurement by automated test strip (mass/volume)on 04-24-2020 Protein (U) [Mass/Vol] Negative Negative [facility] Urine total bilirubin detect ion by test stripon 04-24-2020 Bilirubin Ql (U) Negative Negative [facility] Urine urobilinogen measureme nt by automated test strip (mass/volume)on 04-24-2020 Urobilinogen (U) [Mass/Vol] Normal mg/dL Normal [facility] CT L-SPINE WO CONTRASTon CT L-SPINE WO CONTRAST Patient Name: LEELEE CEDILLO STUDY: CT L-SPINE WO CONTRAST;; 10/13/2018 12:05 pm INDICATION: Low back pain LUMBAGO. COMPARISON: None. ACCESSION NUMBER(S): [id number] ORDERING CLINICIAN: HAMLET GILMAN TECHNIQUE: Axial sections [...] combination with facet joint arthropathy noted causing [id number] left neural foramina narrowing. Transpedicular screws of [...] left lateral recess, left neural foramina and [id number] right neural foramina narrowing. IMPRESSION: Postoperative and [...] Electronically signed by: PATRICIA MURRAY MD [facility] SPINE, ENTIRE THORACIC/LUMBA R, INCLUDE SKULL, CERVICAL ANSD SACRAL SPINE WHEN PERFORMED 2 OR 3 VIEWon 10-13-2018 SPINE, ENTIRE THORACIC/LUMBAR, INCLUDE SKULL, CERVICAL ANSD SACRAL SPINE WHEN PERFORMED 2 OR 3 VIEW Patient Name: LEELEE CEDLILO STUDY: SPINE, ENTIRE THORACIC/LUMBAR, INCLUDE SKULL, CERVICAL ANSD SACRAL SPINE WHEN PERFORMED 2 OR 3 VIEW; SPINE, LUMBOSACRAL CMPLT(BENDING); 10/13/2018 12:05 pm INDICATION: LUMBAGO. COMPARISON: None ACCESSION NUMBER(S): [id number]; [id number] ORDERING CLINICIAN: HAMLET GILMAN FINDINGS: Long radiograph [...] acuity. Electronically signed by: ADELE BA MD [facility] SPINE, LUMBOSACRAL; CMPLT(BE NDING)on 10-13-2018 SPINE, LUMBOSACRAL; CMPLT(BENDING) Patient Name: LEELEE CEDILLO STUDY: SPINE, ENTIRE THORACIC/LUMBAR, INCLUDE SKULL, CERVICAL ANSD SACRAL SPINE WHEN PERFORMED 2 OR 3 VIEW; SPINE, LUMBOSACRAL CMPLT(BENDING); 10/13/2018 12:05 pm INDICATION: LUMBAGO. COMPARISON: None ACCESSION NUMBER(S): [id number]; [id number] ORDERING CLINICIAN: HAMLET GILMAN FINDINGS: Long radiograph [...] Electronically signed by: ADELE BA MD [facility] Social History Date Type Detail Facility Start: 06-24-2023 Sex Assigned At F [facility] Start: 06-24-2023 Alcohol intake [facility] Start: 09-18-2022 Tobacco use and exposure Smokeless tobacco non-user [facility] Start: 09-18-2022 End: 06-24-2023 Alcohol intake Current drinker of alcohol (finding) [facility] Start: 09-18-2022 Alcohol Comment occasional [facility] Start: 04-24-2020 End: 06-24-2023 Tobacco smoking status NHIS Never smoked tobacco (finding) [facility] Start: 06-18-2017 Unknown if ever smoked [employer] Start: 1950 Sex Assigned At Female F [facility] Start: 1950 Sex Assigned At Not on file A [employer] National Score (1-100), lower number is lower risk [facility] Vital Signs Date Time Vital Sign Value Performing Clinician Facility 08-07-2023 11:44-0400 Diastolic blood pressure 86 mm[Hg] MD Sara Vick Work Phone: [facility] 08-07-2023 11:44-0400 Heart rate 67 /min MD Sara Vick Work Phone: [facility] 08-07-2023 11:44-0400 SaO2% (BldA) [Mass fraction] 99 % MD Sara Vick Work Phone: [facility] 08-07-2023 11:44-0400 Systolic blood pressure 132 mm[Hg] MD Sara Vick Work Phone: [facility] 07-01-2023 10:26-0400 Body height 172.72 cm MD Sara Vick Work Phone: [facility] 07-01-2023 10:26-0400 Body mass index (BMI) [Ratio] 29.5 kg/m2 MD Sara Vick Work Phone: [facility] 07-01-2023 10:26-0400 Body temperature 97.2 [degF] MD Sara Vick Work Phone: [facility] 07-01-2023 [id number] Body weight 87.99 kg MD Sara Vick Work Phone: [facility] 07-01-2023 10:26-0400 Diastolic blood pressure 78 mm[Hg] MD Sara Vick Work Phone: [facility] 07-01-2023 10:26-0400 Heart rate 78 /min MD Sara Vick Work Phone: [facility] 07-01-2023 10:26-0400 SaO2% (BldA) [Mass fraction] 98 % MD Sara Vick Work Phone: [facility] 07-01-2023 10:26-0400 Systolic blood pressure 120 mm[Hg] MD Sara Vick Work Phone: [facility] 06-30-2023 14:39-0400 Diastolic blood pressure 70 mm[Hg] MD Sara Vick Work Phone: [facility] 06-30-2023 14:39-0400 Heart rate 75 /min MD Sara Vick Work Phone: [facility] 06-30-2023 14:39-0400 SaO2% (BldA) [Mass fraction] 99 % MD Sara Vick Work Phone: [facility] 06-30-2023 14:39-0400 Systolic blood pressure 110 mm[Hg] MD Sara Vick Work Phone: [facility] 06-24-2023 13:13-0500 Body height 172.7 cm Ghanshyam Lombardi MD Work Phone: [facility] 06-24-2023 13:13-0500 Body weight 87.4 kg Ghanshyam Lombardi MD Work Phone: [facility] 06-24-2023 13:13-0500 Diastolic blood pressure 56 mm[Hg] Ghanshyam Lombardi MD Work Phone: [facility] 06-24-2023 13:13-0500 Heart rate 93 /min Ghanshyam Lombardi MD Work Phone: [facility] 06-24-2023 13:13-0500 Respiratory rate 18 /min Ghanshyam Lombardi MD Work Phone: [facility] 06-24-2023 13:13-0500 SaO2% (BldA) [Mass fraction] 97 % Ghanshyam Lombardi MD Work Phone: [facility] 06-24-2023 13:13-0500 Systolic blood pressure 115 mm[Hg] Ghanshyam Lombardi MD Work Phone: [facility] 05-15-2023 09:00-0500 Body weight 90.18 kg Larry Brown Other [facility] [employer] Other 05-15-2023 09:00-0500 Body weight 90.17 kg MD Sara Vick Work Phone: [facility] 05-15-2023 09:00-0500 Diastolic blood pressure 86 mm[Hg] Larry Brown Other [facility] 05-15-2023 09:00-0500 SaO2% (BldA) [Mass fraction] 99 % Larry Brown Other [facility] [employer] Other 05-15-2023 09:00-0500 Systolic blood pressure 148 mm[Hg] Larry Brown Other [facility] 05-13-2023 11:15-0500 Body height 175.26 cm Kiran Mendozajudy Other [facility] 05-13-2023 11:15-0500 Body mass index (BMI) [Ratio] 29.24 kg/m2 Kiran Checo Other [facility] [employer] Other 05-13-2023 11:15-0500 Body temperature 96.9 [degF] Kiran Checo Other [facility] [employer] Other 05-13-2023 11:15-0500 Body weight 89.81 kg Kiran Checo Other [facility] 05-13-2023 11:15-0500 Diastolic blood pressure 80 mm[Hg] Kiran Kessler Other [facility] 05-13-2023 11:15-0500 SaO2% (BldA) [Mass fraction] 99 % Kiran Checo Other [facility] [employer] Other 05-13-2023 11:15-0500 Systolic blood pressure 140 mm[Hg] Kiran Checo Other [facility] 04-03-2023 10:15-0500 Body height 175.26 cm Larry Brown Other [employer] Other 04-03-2023 10:15-0500 Diastolic blood pressure 74 mm[Hg] Larry Brown Other [employer] Other 04-03-2023 10:15-0500 SaO2% (BldA) [Mass fraction] 99 % Larry Brown Other [employer] Other 04-03-2023 10:15-0500 Systolic blood pressure 118 mm[Hg] Larry Brown Other [facility] [employer] Other 03-25-2023 11:05-0500 Diastolic blood pressure 75 mm[Hg] MD Sara Vick Work Phone: [facility] 03-25-2023 11:05-0500 Heart rate 72 /min MD Sara Vick Work Phone: [facility] 03-25-2023 11:05-0500 Respiratory rate 18 /min MD Sara Vick Work Phone: [facility] 03-25-2023 11:05-0500 SaO2% (BldA) [Mass fraction] 97 % MD Sara Vick Work Phone: [facility] 03-25-2023 11:05-0500 Systolic blood pressure 146 mm[Hg] MD Sara Vick Work Phone: [facility] 03-25-2023 10:27-0500 Inhaled oxygen flow rate 3 L/min MD Sara Vick Work Phone: [facility] 03-25-2023 10:14-0500 Body height 173.99 cm MD Sara Vick Work Phone: [facility] 03-25-2023 10:14-0500 Body weight 88.45 kg MD Sara Vick Work Phone: [facility] 01-27-2023 14:30-0400 Body height 175.26 cm Dominique Shane Other [employer] Other 01-27-2023 14:30-0400 Diastolic blood pressure 70 mm[Hg] Dominique Shane Other [employer] Other 01-27-2023 14:30-0400 SaO2% (BldA) [Mass fraction] 98 % Dominique Shane Other [employer] Other 01-27-2023 14:30-0400 Systolic blood pressure 118 mm[Hg] Dominique Shane Other [employer] Other 01-09-2023 10:15-0400 Body height 175.26 cm Larry Brown Other [employer] Other 01-09-2023 10:15-0400 Body mass index (BMI) [Ratio] 29.56 kg/m2 Larry Brown Other [employer] Other 01-09-2023 10:15-0400 Body weight 90.81 kg Larry Brown Other [employer] Other 01-09-2023 10:15-0400 Diastolic blood pressure 78 mm[Hg] Larry Brown Other [employer] Other 01-09-2023 10:15-0400 SaO2% (BldA) [Mass fraction] 98 % Larry Brown Other [employer] Other 01-09-2023 10:15-0400 Systolic blood pressure 130 mm[Hg] Larry Brown Other [facility] Other 12-12-2022 09:30-0400 Body height 175.26 cm Larry Brown Other [employer] Other 12-12-2022 09:30-0400 Body mass index (BMI) [Ratio] 29.77 kg/m2 Larry Brown Other [employer] Other 12-12-2022 09:30-0400 Body weight 91.45 kg Larry Brown Other [employer] Other 12-12-2022 09:30-0400 Diastolic blood pressure 74 mm[Hg] Larry Brown Other [employer] Other 12-12-2022 09:30-0400 SaO2% (BldA) [Mass fraction] 99 % Larry Brown Other [employer] Other 12-12-2022 09:30-0400 Systolic blood pressure 122 mm[Hg] Larry Brown Other [employer] Other 09-19-2022 12:00-0400 Body height 175.26 cm Larry Brown Other [employer] Other 09-19-2022 12:00-0400 Body mass index (BMI) [Ratio] 30.8 kg/m2 Larry Brown Other [employer] Other 09-19-2022 12:00-0400 Body weight 94.62 kg Larry Brown Other [employer] Other 09-19-2022 12:00-0400 SaO2% (BldA) [Mass fraction] 95 % Larry Brown Other [employer] Other 09-18-2022 10:40-0400 Body height 172.7 cm Perfecto Burch MD Work Phone: [employer] 09-18-2022 10:40-0400 Body mass index (BMI) [Ratio] 31.26 kg/m2 Perfecto Burch MD Work Phone: [employer] 09-18-2022 10:40-0400 Body temperature 96.4 [degF] Perfecto Burch MD Work Phone: [employer] 09-18-2022 10:40-0400 Body weight 93.26 kg Perfecto Burch MD Work Phone: [facility] 07-27-2022 15:38-0400 Hourly Rounding [facility] 07-27-2022 15:38-0400 Promise to Return [facility] 07-27-2022 14:38-0400 Hourly Rounding [facility] 07-27-2022 14:38-0400 Promise to Return [facility] 07-27-2022 13:38-0400 Hourly Rounding [facility] 07-27-2022 13:38-0400 Promise to Return [facility] 07-27-2022 12:08-0400 Heart rate 106 /min [facility] 07-27-2022 12:08-0400 SaO2% (BldA) [Mass fraction] 100 % [facility] 07-27-2022 12:07-0400 Diastolic blood pressure 79 mm[Hg] [facility] 07-27-2022 12:07-0400 Mean blood pressure 103 mm[Hg] [facility] 07-27-2022 12:07-0400 Systolic blood pressure 151 mm[Hg] [facility] 07-27-2022 12:06-0400 Body temperature 97.16 [degF] [facility] 07-27-2022 07:46-0400 Heart rate 82 /min [facility] 07-27-2022 07:46-0400 SaO2% (BldA) [Mass fraction] 97 % [facility] 07-27-2022 07:46-0400 Diastolic blood pressure 81 mm[Hg] [facility] 07-27-2022 07:46-0400 Mean blood pressure 116 mm[Hg] [facility] 07-27-2022 07:46-0400 Systolic blood pressure 186 mm[Hg] [facility] 07-27-2022 07:45-0400 Body temperature 97.52 [degF] [facility] 07-27-2022 01:46-0400 Heart rate 89 /min [facility] 07-27-2022 01:46-0400 SaO2% (BldA) [Mass fraction] 96 % [facility] 07-27-2022 01:45-0400 Diastolic blood pressure 67 mm[Hg] [facility] 07-27-2022 01:45-0400 Mean blood pressure 89 mm[Hg] [facility] 07-27-2022 01:45-0400 Systolic blood pressure 134 mm[Hg] [facility] 07-27-2022 01:45-0400 Body temperature 98.06 [degF] [facility] 07-27-2022 01:45-0400 Blood Pressure Location [facility] 07-27-2022 01:45-0400 Respiratory rate 18 /min [facility] 07-26-2022 20:00-0400 Respiratory rate 16 /min [facility] 07-26-2022 17:20-0400 Blood Pressure Location [facility] 07-26-2022 17:20-0400 Heart rate 78 /min [facility] 07-26-2022 15:30-0400 Respiratory rate 12 /min [facility] 07-26-2022 15:00-0400 Mean blood pressure 122 mm[Hg] [facility] 07-26-2022 15:00-0400 Respiratory rate 8 /min [facility] 07-26-2022 14:30-0400 Mean blood pressure 112 mm[Hg] [facility] 07-26-2022 13:30-0400 Mean blood pressure 95 mm[Hg] [facility] 07-26-2022 11:35-0400 gluc 105 mg/dL [facility] 07-26-2022 11:35-0400 gluc [facility] 07-26-2022 11:35-0400 Heart rate 72 /min [facility] 07-26-2022 11:35-0400 Respiratory rate 18 /min [facility] 05-02-2022 10:00-0500 Body height 175.26 cm Larry Brown Other [employer] [facility] 05-02-2022 10:00-0500 Body mass index (BMI) [Ratio] 31.89 kg/m2 Larry Brown Other [employer] Other 05-02-2022 10:00-0500 Body weight 97.98 kg Larry Brown Other [employer] Other 05-02-2022 10:00-0500 Diastolic blood pressure 80 mm[Hg] Larry Brown Other [employer] Other 05-02-2022 10:00-0500 Systolic blood pressure 134 mm[Hg] Larry Brown Other [employer] Other 03-08-2022 17:00-0500 Diastolic blood pressure 117 mm[Hg] [facility] 03-08-2022 17:00-0500 Mean blood pressure 131 mm[Hg] Wm Nagy [facility] 03-08-2022 17:00-0500 SaO2% (BldA) [Mass fraction] 95 % Wm Nagy [facility] 03-08-2022 17:00-0500 Systolic blood pressure 160 mm[Hg] Wm Yakov [facility] 03-08-2022 16:30-0500 Diastolic blood pressure 85 mm[Hg] Wm Yakov [facility] 03-08-2022 16:30-0500 Heart rate 75 /min Wm Nagy [facility] 03-08-2022 16:30-0500 Mean blood pressure 94 mm[Hg] [facility] 03-08-2022 16:30-0500 Respiratory rate 15 /min [facility] 03-08-2022 16:30-0500 SaO2% (BldA) [Mass fraction] 98 % Wm Yakov [facility] 03-08-2022 16:30-0500 Systolic blood pressure 112 mm[Hg] Wm Yakov [facility] 03-08-2022 16:10-0500 Diastolic blood pressure 74 mm[Hg] Wm Yakov [facility] 03-08-2022 16:10-0500 Heart rate 93 /min W[facility] 03-08-2022 16:10-0500 Mean blood pressure 90 mm[Hg] W[facility] 03-08-2022 16:10-0500 Respiratory rate 14 /min [facility] 03-08-2022 16:10-0500 Systolic blood pressure 122 mm[Hg] W[facility] 03-08-2022 15:15-0500 Respiratory rate 18 /min W[facility] 03-08-2022 15:00-0500 Hourly Rounding Wm Yakov [facility] 03-08-2022 15:00-0500 Promise to Return Wm Yakov [facility] 03-08-2022 14:45-0500 Respiratory rate 20 /min [facility] 03-08-2022 14:14-0500 Hourly Rounding Wm Yakov [facility] 03-08-2022 14:14-0500 Promise to Return Wm Nagy [facility] 03-08-2022 13:54-0500 Heart rate 99 /min Wm Nagy [facility] 03-08-2022 13:37-0500 Body temperature 97.7 [degF] Wm Nagy [facility] 03-08-2022 13:37-0500 Heart rate 104 /min Wm Nagy [facility] 03-08-2022 13:00-0500 Hourly Rounding Wm Nagy [facility] 03-08-2022 13:00-0500 Promise to Return Wm Nagy [facility] 03-07-2022 11:00-0500 Body height 175.26 cm Larry Carrilloky Other [employer] [facility] 03-07-2022 11:00-0500 Body mass index (BMI) [Ratio] 32.54 kg/m2 Larry Carrilloky Other [employer] 03-07-2022 11:00-0500 Body weight 99.97 kg Larry Stephanie Other [employer] 03-07-2022 11:00-0500 SaO2% (BldA) [Mass fraction] 99 % Larry Carrilloky Other [employer] Other 06-20-2017 09:19-0500 PAIN LEVEL 0 {score} Praveen Lopez Celestino Bynum 06-20-2017 06:29-0500 PAIN LEVEL 0 {score} Praveen Bynum 06-20-2017 06:25-0500 PAIN LEVEL 6 {score} Praveen Bynum 06-20-2017 06:21-0500 Body Temperature 98.1 [degF] Praveen Bynum 06-20-2017 06:21-0500 BP Diastolic 78 mm[Hg] Praveen Bynum 06-20-2017 06:21-0500 BP Systolic 143 mm[Hg] Praveen Bynum 06-20-2017 06:21-0500 Pulse (Heart Rate) 90 /min Praveen reardon 06-20-2017 06:21-0500 Pulse Oximetry 99 % Praveen Bynum 06-20-2017 06:21-0500 Respiratory Rate 20 /min Praveen Bynum 06-20-2017 00:38-0500 PAIN LEVEL 0 {score} Praveen Bynum 06-19-2017 20:44-0500 PAIN LEVEL 9 {score} Praveen Carlsona 06-19-2017 20:43-0500 PAIN LEVEL 8 {score} Praveen Bynum 06-19-2017 18:47-0500 Body Temperature 97.9 [degF] Praveen Carlsona 06-19-2017 18:46-0500 BP Diastolic 81 mm[Hg] Praveen Carlsona 06-19-2017 18:46-0500 BP Systolic 144 mm[Hg] Praveen Carlsona 06-19-2017 18:46-0500 Pulse (Heart Rate) 91 /min Praveen reardon 06-19-2017 18:46-0500 Pulse Oximetry 99 % Praveen Bynum 06-19-2017 18:46-0500 Respiratory Rate 19 /min Praveen Bynum 06-19-2017 16:04-0500 Height 175.26 cm Praveen Bynum 06-19-2017 15:43-0500 Body Temperature 98 [degF] Praveen Bynum 06-19-2017 15:43-0500 BP Diastolic 74 mm[Hg] Praveen Bynum 06-19-2017 15:43-0500 BP Systolic 140 mm[Hg] Praveen Bynum 06-19-2017 15:43-0500 Pulse (Heart Rate) 88 /min Praveen reardon 06-19-2017 15:43-0500 Pulse Oximetry 98 % Praveen [...] 08:05-0500 Pulse (Heart Rate) 98 /min Praveen reardon 06-19-2017 08:05-0500 Pulse Oximetry 98 % Praveen Bynum 06-19-2017 08:05-0500 Respiratory Rate 20 /min Praveen Bynum 06-19-2017 06:40-0500 PAIN LEVEL 5 {score} Praveen Bynum 06-19-2017 00:34-0500 PAIN LEVEL 0 {score} Praveen Bynum 06-19-2017 00:26-0500 BP Diastolic 77 mm[Hg] Praveen Bynum 06-19-2017 00:26-0500 BP Systolic 156 mm[Hg] Praveen Bynum 06-19-2017 00:26-0500 Height 162.56 cm Praveen Bynum 06-19-2017 00:26-0500 Pulse (Heart Rate) 98 /min Praveen reardon 06-19-2017 00:26-0500 Pulse Oximetry 98 % Praveen yBnum 06-19-2017 00:26-0500 Respiratory Rate 18 /min Praveen Bynum 06-19-2017 00:26-0500 Weight 109.68 kg Praveen Bynum 06-19-2017 00:22-0500 Body Temperature 100 [degF] [facility] 06-18-2017 23:11-0500 PAIN LEVEL 3 {score} [facility] Functional Status Date Assessment Result Facility 07-26-2022 Functional Status No [facility] 07-26-2022 Functional Status [facility] 03-08-2022 Functional Status No [facility] Clinical Notes 10-07-2021 to 08-08-2023 Flor Ziegler, RT(R) - 08/08/2023 3:40 PM Torrie Pendleton RT(R) - 07/13/2023 10:40 AM Ghanshyam Coto MD - 06/24/2023 1:40 PM EST Note Date & Type Note Facility 08-08-2023 Note HNO ID: [id number] Author: FLOR ZIEGLER RT(R) Service: Radiology Author Type: Technologist Type: Progress Notes Filed: 08/08/2023 15:59 Note Text: Radiology Service Progress Note PATIENT NAME: Leelee Cedillo DATE OF SERVICE: August 08, 2023 TIME: 3:59 PM PATIENT IDENTITY VERIFICATION COMPLETED USING TWO (2) IDENTIFIERS: Name and Date of confirmed by patient verbally and Name and Date of confirmed by identification band. FALL SCREENING: Has the patient had 2 falls in the last year or 1 fall with injury or currently using an Ambulatory Assistive Device (Walker, Cane, Wheelchair, Crutches, etc.)? Yes, Patient High Risk for Falls What interventions were put in place to prevent falls during this visit? Non-Skid Socks Used, Yellow Falls Risk Wristband Applied, Instructed Patient to Call for Help if Needed, Offered Assistance with Transfers/Clothing, Instructed Patient to Remain Seated (Not on Exam Table) Until Exam, and Increased Observations by Caregivers PATIENT GENDER DATA: Female. status: : No status: NO. PATIENT RELEVANT IMPLANT DATA REVIEWED: Yes PATIENT PRESENTS WITH AN IMPLANTABLE OR ATTACHED COMMUNICATIONS DIRECTOR: No RADIOLOGY DEPARTMENT: MR; Exam(s) Completed: Spine: Thoracic spine PERIPHERAL IV DATA: Not applicable SIGNED BY: RT Felipa(R) August 08, 2023 3:59 PM [facility] 08-08-2023 History of Present illness Narrative Radiology Service Progress Note PATIENT NAME: Leelee Cedillo DATE OF SERVICE: August 08, 2023 TIME: 3:59 PM PATIENT IDENTITY VERIFICATION COMPLETED USING TWO (2) IDENTIFIERS: Name and Date of confirmed by patient verbally and Name and Date of confirmed by identification band. FALL SCREENING: Has the patient had 2 falls in the last year or 1 fall with injury or currently using an Ambulatory Assistive Device (Walker, Cane, Wheelchair, Crutches, etc.)? Yes, Patient High Risk for Falls What interventions were put in place to prevent falls during this visit? Non-Skid Socks Used, Yellow Falls Risk Wristband Applied, Instructed Patient to Call for Help if Needed, Offered Assistance with Transfers/Clothing, Instructed Patient to Remain Seated (Not on Exam Table) Until Exam, and Increased Observations by Caregivers PATIENT GENDER DATA: Female. status: : No status: NO. PATIENT RELEVANT IMPLANT DATA REVIEWED: Yes PATIENT PRESENTS WITH AN IMPLANTABLE OR ATTACHED COMMUNICATIONS DIRECTOR: No RADIOLOGY DEPARTMENT: MR; Exam(s) Completed: Spine: Thoracic spine PERIPHERAL IV DATA: Not applicable SIGNED BY: RT Felipa(Bryce) August 08, 2023 3:59 PM documented in this encounter [facility] 07-13-2023 Note HNO ID: [id number] Author: TORRIE ABRAHAM RT(Bryce) Service: Radiology Author Type: Technologist Type: Progress [...] PATIENT PRESENTS WITH AN IMPLANTABLE OR ATTACHED COMMUNICATIONS DIRECTOR: No RADIOLOGY DEPARTMENT: CT; Exam(s) Completed: Spine PERIPHERAL IV DATA: Not applicable SIGNED BY: RT Se(Bryce) July 13, 2023 10:44 AM [facility] 07-13-2023 History of Present illness Narrative [...] PATIENT PRESENTS WITH AN IMPLANTABLE OR ATTACHED COMMUNICATIONS DIRECTOR: No RADIOLOGY DEPARTMENT: CT; Exam(s) Completed: Spine PERIPHERAL IV DATA: Not applicable SIGNED BY: RT Se(R) July 13, 2023 10:44 AM documented in this encounter [facility] 06-24-2023 Note HNO ID: [id number] Author: GHANSHYAM LOMBARDI MD Service: ? Author [...] 30 minutes spent Ghanshyam Lombardi MD [facility] 06-24-2023 History of Present illness Narrative [...] Ghanshyam Lombardi MD documented in this encounter [facility] 05-15-2023 Evaluation note Encounter Date Diagnosis Assessment [...] In the meantime, she can continue taking [place] as needed all as well as Gabapentin [...] and no personal patient information was compromised. [facility] 01-24-2024 Evaluation note* Encounter Date Diagnosis [...] agrees with plan all questions were addressed. [facility] Other 12-28-2023 Evaluation note* Encounter Date Diagnosis Assessment Notes Treatment Notes Treatment Clinical Notes Mar, Lumbar radiculopathy (ICD-10 - M54.16) 72 year old female evaluated via telephonic call for follow up and medication refill for chronic pain. She voices complaints of low back pain with intermittent radiation down the right lower extremity. She continues taking [place] with relief and is requesting a refill of this today. I discussed different treatment options in detail with the patient. She feels medication is managing her pain and does not wish to proceed with injections at this time. I encouraged the patient to start physical therapy as previously discussed. She can also continue taking medications as prescribed and I will refill her [place] as she feels this provides an element [...] pain (ICD-10 - G89.29) Continue medication management. [facility] 12-15-2023 Evaluation note* Encounter Date Diagnosis [...] pain (ICD-10 - G89.29) Continue medication management. [facility] 10-24-2023 Evaluation note* Encounter Date Diagnosis Assessment Notes Treatment Notes Treatment Clinical Notes Jan, Lumbar radiculopathy (ICD-10 - M54.16) [facility] 10-10-2023 Evaluation note* Encounter Date Diagnosis [...] regarding this. Meanwhile, I will refill her [place] as it does provide an element of [...] educated on the risks and benefits of care home opioid use. Hydrocodone/Acetamin ophen was refilled today, opioid risk assessment was done as well as pill count. Patient is compliant with opioid medication. The patient denies any opioid related side effects. [facility] 09-22-2023 Evaluation note* Encounter Date Diagnosis [...] educated on the risks and benefits of care home opioid use. Hydrocodone/Aceta minophen was refilled today, opioid risk assessment was done as well as pill count. Patient is compliant with opioid medication. The patient denies any opioid related side effects. Patients last urine drug screen was positive for alcohol, she is counselled against consuming alcohol. [employer] Other 08-25-2023 Evaluation note* Encounter Date Diagnosis [...] M51.36) Stable, follow up in 4 weeks. [employer] Other 06-02-2023 Evaluation note* Encounter Date Diagnosis [...] nerve blocks in the future if needed. [employer] Other 06-01-2023 History of Present illness Narrative* [...] 09/18/2022 10:58 AM Patient: Leelee Cedillo MR#: [id number] : 1950 Age: 71 y.o. Referring Physician: [...] repair GALL BLADDER SURGERY 1999 BACK SURGERY 6-2502-3-2018- FOOT SURGERY [id number] Family History: Her family history is not [...] [x]cane, []bracing Are you followed by a fueler? [] [x] Name: Are you followed by [...] repair GALL BLADDER SURGERY 1999 BACK SURGERY 2-7115-2-2017- FOOT SURGERY [id number] No family history on file. Social History [...] Rash Flagyl [Metronidazole] Dyspepsia [facility]Result Comment: Electronically Signed By: Rachel SALTER\.br\Date and Time Signed: 07/27/22 15:21 EDT\.br\Electronically Co-Signed By: Francisco Alcazar MD\.br\Date and Time Co- Signed: 07/27/22 17:04 [id number] Hospital Discharge instructions Patient Education 07/27/2022 15:20:26 [...] Follow these instructions at home: Medicines Take ftcz-eqk-oepmllk and prescription medicines only as told by [...] 04/06/2006 Document Revised: 07/29/2019 Document Reviewed: 02/23/2019 [employer] Patient Education 2020 [employer] 07/27/2022 15:20:26 Vasovagal Syncope, Pediatric Vasovagal [...] ?Squatting. ?Moving his or her legs. Give qqtu-nun-hpipnfw and prescription medicines only as told by [...] 01/13/2009 Document Revised: 03/19/2018 Document Reviewed: 05/12/2017 [employer] Patient Education 2020 [employer]. Follow Up Care 07/26/2022 11:32:57 With:Sara Taycarolina Address: [address] [place] [phone]- Business (1) When: Unknown Comments:Call for followup appointment 7-10 days With:Josias RUFF, CARLOS Thacker Address: [address] [place] [address]- When:2 to 4 weeks [facility]04-09-2023 Evaluation + Plan noteExtracted from: Title:Discharge [...] Oral, Daily With When Contact Information Sara Nicanor [address] [place] [phone]- Business (1) Additional Instructions: Call for followup appointment 7-10 days Josias RUFF, CARLOS Thacker Within 2 to 4 weeks [address] [place] [address]- Additional Instructions: Near-Syncope Vasovagal Syncope, Pediatric Extracted [...] it is acute or subacute. It might returner to just be some focal white matter [...] specified devices) recent right foot surgery in [place] w/podiatry secondary to non healing food wound. Currently has wound vac intact to this operative site. 6. Osteoarthritis (M19.90: Unspecified osteoarthritis, unspecified site) osteoarthritis status post left hip replacement Has chronic back pain. 7. 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 Diagnostic Tests Pending * HgbA1c 07/27/22 [facility]04-08-2023 NoteGerman HospitalComment on above:Result Comment: Electronically Signed By: [...] if her pain increases in the future. [employer] Other [id number] NotePROCEDURE: XR FOOT RT MIN 3 VIEWS, [...] Electronically authenticated by: JULIO LOBATO Date: 2022-04-23 13:00[facility]01-04-2023 NotePROCEDURE: XR FOOT RT MIN 3 [...] Electronically authenticated by: JULIO LOBATO Date: 2022-04-23 13:00[facility]12-12-2022 NotePROCEDURE: XR ANKLE RT MIN 3 [...] authenticated by: ALFRED UMAÑA Date: 2022-03-31 18:19[facility] Discharge instructions Patient Education 03/08/2022 17:44:27 [...] 04/06/2006 Document Revised: 04/15/2017 Document Reviewed: 03/23/2017 [employer] Patient Education 2020 [employer] 03/08/2022 17:44:27 Hip Dislocation Hip Dislocation [...] Follow these instructions at home: Medicines Take gkde-wbz-qkywkhn and prescription medicines only as told by your health care provider. Ask your health care provider if the medicine prescribed to you: ?Requires you to avoid driving or using heavy machinery. ?Can cause constipation. You may need to take actions to prevent or treat constipation, such as: ?Drink enough fluid to keep your urine pale yellow. ?Take zbvh-ygk-snjoqqn or prescription medicines. ?Eat foods that are [...] in the [place] Do not drive yourself [facility]. Summary Hip dislocation happens when the ball [...] 12/30/2001 Document Revised: 12/29/2018 Document Reviewed: 12/30/2018 [employer] Patient Education 2020 [employer]. Follow Up Care 03/08/2022 13:37:46 With:Sorin DICKERSON Address: [address] [place] [phone] Business (1) When:03/11/2022 17:44:09 Comments:Call to establish follow-up care. Wear brace until follow-up with orthopedic surgery. With:Sara Vick Address: [address] [place] [address] [place] [address]- Business (1) When:03/11/2022 17:43:29 Comments:Call the office [...] you develop any new or worsening symptoms. [facility]11-19-2022 Evaluation + Plan noteExtracted from: Title:ED Note Author:Wm Nagy DO Date:05/08/21 Dislocation, hip (S73.006A: Unspecified dislocation of unspecified hip, initial encounter) Ordered: acetaminophen-hydrocodone, 1 tab(s), Oral, q4hr for pain, 12 tab(s), Refill(s) 0, [facility]/pharmacy #[id number], 172, cm, 03/08/22 13:49:00 EST, [...] XR Hip 2-3 Views Left + Pelvis [facility]11-18-2022 Evaluation note* Encounter Date Diagnosis Assessment [...] negative findings were considered in medical decision-making. [employer] Other 06-20-2022 NotePROCEDURE: XR FOOT RT MIN [...] Electronically authenticated by: JULIO LOBATO Date: 2021-10-07 11:44[facility] noteNo InformationNosaint [facility] [employer] Other Evaluation noteNo assessment information available [facility] Work Phone: Evaluation note* Diagnosis Pain in prosthetic joint, sequela- Primary [facility] Diagnosis Adjacent segment disease of lumbar spine with history of fusion procedure- Primary Chronic bilateral low back pain with bilateral sciatica documented in this encounter [place] note* Diagnosis 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) documented in this encounter [place] note* Diagnosis Chronic bilateral low back pain with bilateral sciatica documented in this encounter [place] note* Diagnosis Onset Date Resolution Status Chronic pain acute Lumbar degenerative disc disease acute Lumbar radiculopathy acute Lumbosacral spondylosis acut e Sacroiliitis acute 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 acute Chronic pain acute Lumbar degenerative disc disease acute Lumbar radiculopathy acute Lumbosacral spondylosis acut e Sacroiliitis acute [facility] Work Phone: Evaluation note* Diagnosis 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 documented in this encounter [facility] general Narrative - Reported* Type Description Date [...] 2 021 Surgical History back surgeries x5 [facility] [employer] kori gilman 2018 [employer] Other History general Narrative - Reported* Type [...] 2 021 Surgical History back surgeries x5 [facility] [employer] yuandr gilman 2019 Hospitalization History see above [facility] Other Hisjzxc general Narrative - Reported* Type Description Date [...] 2 021 Surgical History back surgeries x5 [facility] [employer] yuandr gilman 2018 Surgical History lazer surgery on her lt leg veins and she also had sclero tx on b/l legs 2022 Hospitalization History see above [facility] Other Hospital course Narrative No data available for this section [facility] No data available for this section [facility] (narrative)* Diagnostic Procedure Only (Routine) - Closed Specialty Diagnoses / Procedures Referred By Contac t Referred To Contact XR IMAGING Diagnoses Fusion of spine of thoracolumbar region Procedures XR SCOLIOSIS PA STAND/LAT 2V RADEX ENTIR THRC LMBR CRV SAC SPI W/SKULL 2/3 VW oRs Cedeño APRN.[employer] [address] [place] [id number] [place] [address] Referral ID Status Reason Start Date Expiration Date V isits Requested Visits Authorized [id number] Closed Auto-Generate d Referral 02/25/2023 03/26/2024 1 1 * Diagnostic Procedure Only (Routine) - Closed Specialty Diagnoses / Procedures [facility] Referred To Contact XR IMAGING Diagnoses Fusion of spine of thoracolumbar region Procedures XR LUMBAR MOTION 4V AP/LAT/ FLEX/EXT RADEX SPINE LUMBOSACRAL MINIMUM 4 VIEWS Ros Cedeño APRN.[employer] [address] [place] [id number] Xr Imaging [facility] Referral ID Status Reason Start Date Expiration Date V isits Requested Visits Authorized [id number] Closed Auto-Generate d Referral 02/25/2023 03/26/2024 1 1 [facility] for referral (narrative)* Diagnostic Procedure Only (Routine) - Closed Specialty Diagnoses / Procedures Referred [facility] Referred To Contact MR IMAGING Diagnoses 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 Procedures MRI THORACIC SPINE WO IVCON MRI SPINAL CANAL THORACIC W/O CONTRAST Ghanshyam Parker MD [address] [place] [address] Mr Imaging [place] [address] Referral ID Status Reason Start Date Expiration Date V isits Requested Visits Authorized [id number] Closed Auto-Generate d Referral 08/07/2023 09/07/2023 1 1 [facility] for visit Narrative* Diagnostic Procedure Only (Routine) - Closed Specialty Diagnoses / Procedures Referred By Maximiliano dee Referred To Contact XR IMAGING Diagnoses Fusion of spine of thoracolumbar region Procedures XR SCOLIOSIS PA STAND/LAT 2V RADEX ENTIR THRC LMBR CRV SAC SPI W/SKULL 2/3 VW Ros Cedeño, FORESTRY HUNTER.[employer] [address] [place] [address] Xr Imaging [place] [address] Referral ID Status Reason Start Date Expiration Date V isits Requested Visits Authorized [id number] Closed Auto-Generate d Referral 02/25/2023 03/26/2024 1 1 [facility] Advance Directives No Advanced Directives Records Found [...] of breast Unknown brother Diabetes mellitus Unknown Relationship Condition Age at Onset Recorded Date/T jessica father Pulmonary emphysema Unknown Not Specified Malignant neoplasm of breast Unknown brother Diabetes mellitus Unknown father Unknown family member Family history of other condition Unknow n Unknown Malignant neoplasm Unknown Chief Complaint and Reason for Visit Chief Complaint M17.11 Knee Pain Chief Complaint Knee Pain Post-Op R TKA Knee Pain Chief Complaint L hip Chief Complaint Back Pain Chief Complaint Med Refill For Chron ic Pain Back Pain Follow Up After Caudal Epidural Ankle scar therapy i70.213 i83.813 Chief Complaint Referred By Dr. Tiffanie Louie For Venous Med Refill Ankle scar therapy i70.213 i83.813 med refill 4 WK FOLLOW UP; PVR'S, FF ULTRASOUND DONE AT [facility] MED REFILL FOR CHRONIC PAIN Reason for Visit Chronic pain Lumbar degenerative disc disease Lumbar radiculopathy Lumbosacral spondylosis Sacroiliitis Varicose veins of bilateral lower extremities with pain Chronic pain Lumbar degenerative disc disease Lumbar radiculopathy Lumbosacral spondylosis Sacroiliitis Assessments No Assessments Information AvailableNo Assessments Information Available Reason for Referral Specialty Diagnoses / Procedures Referred By Maximiliano dee Referred To Contact CT IMAGING Diagnoses Chronic bilateral low back pain with bilateral sciatica Procedures CT LUMBAR SPINE WO IVCON CT LUMBAR SPINE W/O CONTRAST MATERIAL Ghanshyam Lombardi MD [address] [place] [address] Ct Imaging [place] [address] Referral ID Status Reason Start Date Expiration Date Visits Requested Visits Authorized [id number] Pending Review Auto-Generat ed Referral 06/24/2023 07/23/2024 1 1 Specialty Diagnoses / Procedures Referred By Contac t Referred To Contact MR IMAGING Diagnoses 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 Procedures MRI THORACIC SPINE WO IVCON MRI SPINAL CANAL THORACIC W/O CONTRAST MATRL Ghanshyam Lombardi MD [address] [place] [address] Mr Imaging [place] [address] Referral ID Status Reason Start Date Expiration Date Visits Requested Visits Authorized [id number] Pending Review Auto-Generat ed Referral 06/24/2023 07/23/2024 1 1 Specialty Diagnoses / Procedures Referred By Contac t Referred To Contact Diagnoses Pain in prosthetic joint, sequela Procedures XR HIP WITH PELVIS LEFT Perfecto Burch MD [address] [place] [address] Referral ID Status Reason Start Date Expiration Date V isits Requested Visits Authorized [id number] New Request 09/18/2022 10/13/2023 1 1 Specialty Diagnoses / Procedures Referred By Contac t Referred To Contact Diagnoses Pain in prosthetic joint, sequela Procedures XR KNEE LEFT 3 VIEWS Perfecto Burch MD [address] [place] [address] Referral ID Status Reason Start Date Expiration Date V isits Requested Visits Authorized [id number] New Request 09/16/2022 10/11/2023 1 1 Additional Source Comments INFORMATION SOURCE (unrecogn ized section and content) DATE CREATED AUTHOR 12/13/2017 [facility] DATE CREATED AUTHOR AUTHOR'S ORGANIZ ATION 07/10/2018 [facility] DATE CREATED AUTHOR AUTHOR'S ORGANIZ ATION 02/25/2019 [facility] DATE CREATED AUTHOR AUTHOR'S ORGANIZ ATION 03/01/2022 [facility] dical Specialist DATE CREATED AUTHOR AUTHOR'S ORGANIZ ATION 07/26/2022 [facility] DATE CREATED AUTHOR AUTHOR'S ORGANIZ ATION 09/27/2022 [facility] DATE CREATED AUTHOR AUTHOR'S ORGANIZ ATION 09/27/2022 [facility] DATE CREATED AUTHOR AUTHOR'S ORGANIZ ATION 11/26/2022 Ramirez Valentin [facility] ical Center DATE CREATED AUTHOR AUTHOR'S ORGANIZ ATION 07/29/2023 [facility] DATE CREATED AUTHOR AUTHOR'S ORGANIZ ATION 08/09/2023 [facility] DATE CREATED AUTHOR AUTHOR'S ORGANIZ ATION 08/09/2023 [facility] dical Specialists EPIC REASON FOR VISIT (unrecogniz ed section and content) Specialty Diagnoses / Procedures Referred By Contac t Referred To Contact Diagnoses Pain in prosthetic joint, sequela Procedures XR HIP WITH PELVIS LEFT Perfecto Burch MD [address] [place] [phone] Referral ID Status Reason Start Date Expiration Date V isits Requested Visits Authorized [id number] New Request 09/18/2022 10/13/2023 1 1 Reason Comments Pain New Patient Reason Comments New Patient Specialty Diagnoses / Procedures Referred By Contac t Referred To Contact CT IMAGING Diagnoses Chronic bilateral low back pain with bilateral sciatica Procedures CT LUMBAR SPINE WO IVCON CT LUMBAR SPINE W/O CONTRAST MATERIAL Ghanshyam Lombardi MD [address] [place] [address] Ct Imaging [place] [address] Referral ID Status Reason Start Date Expiration Date V isits Requested Visits Authorized [id number] Closed Auto-Generate d Referral 07/11/2023 08/10/2023 2 1 Specialty Diagnoses / Procedures Referred By Contac t Referred To Contact Radiology / RADIO MRI MAIN Q Diagnoses Other intervertebral disc degeneration, lumbar region Arthrodesis status Lumbago with sciatica, left side Lumbago with sciatica, right side Other chronic pain MRI Thoracic WO IVCON MRI THORACIC SPINE WO IVCON Procedures MRI SPINAL CANAL THORACIC W/O CONTRAST MATRL MRI WO CARLOS SEMAC [address] Ghanshyam Lombardi MD [address] [place] [address] Radio [facility] Main [address] [place] [phone] Referral ID Status Reason Start Date Expiration Date Visits Re quested Visits Authorized [id number] Closed 08/07/2023 09/07/2023 1 1 Patient Care team informatio n (unrecognized section and content) Team Status: Active Member Role Status Freeman Vick MD Primary Care Provider Active Team Status: Inactive Member Role Status Freeman Vick MD Primary Care Provider, Attending Pr ashanti Active 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 Start Date End Date Sara Vick MD [address] [place] [phone] PCP - General Family Medicine 04/09/22 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 Start Date End Date Sara Vick MD [address] [place] [phone] PCP - General Family Medicine 04/09/22 Team Status: Inactive Member Role Status Freeman Vick MD Primary Care Provider Active Larry [...] May 22, 2023 End: May 22, 2023 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 Start Date End Date Sara Vick MD PCP - [facility] Family Medicine 06/09/11 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 Start Date End Date Sraa Vick MD PCP - General Family Medicine 06/09/11 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 Start Date End Date Sara Vick MD PCP - [facility] Medicine 06/09/11 Team Status: Inactive Member Role Status Dates Kiran Kessler MD Attending Provider Active Start: May 13, 2023 End: May 13, 2023 Team Status: Inactive Member Role Status Dates Larry Brown MD Attending Provider Active Sta rt: May 15, 2023 End: May 15, 2023 Team Status: Active Member Role Status Dates Provider Conversion Attending Provider Active St art: May 18, 2023 Team Status: Inactive Member Role Status Dates Sara Vick MD Primary Care Provider Active Start: May 20, 2023 End: May 20, 2023 Deepali Jansen PA-C Attending Provider Active Start: May 20, 2023 End: May 20, 2023 Team Status: Inactive Member Role Status Dates Sara Vick MD Primary Care Provider Active Start: June 30, 2023 End: June 30, 2023 Dominique Shane NP Attending Provider Active Start: June 30, 2023 End: June 30, 2023 Team Status: Inactive Member Role Status Dates Sara Vick MD Primary Care Provider Active Start: July 01, 2023 End: July 01, 2023 Kiran Kessler MD Attending Provider Active Start: July 01, 2023 End: July 01, 2023 Team Status: Inactive Member Role Status Dates Sara Vick MD Primary Care Provider Active Start: August 07, 2023 End: August 07, 2023 Larry Brown MD Attending Provider Active Sta rt: August 07, 2023 End: August 07, 2023 Goals (unrecognized section and content) Goals may be documented in a n alternate section Source Comments (unrecognize d section and content) In the event this informatio n is protected by the Federal Confidentiality of Alcohol and Drug Abuse Patient Records regulations: The Federal rules restrict any use of the information to criminally investigate or prosecute any alcohol or drug abuse patient.[facility] CenterIn the event this information is protected by the Federal Confidentiality of Alcohol and Drug Abuse Patient Records regulations: The Federal rules restrict any use of the information to criminally investigate or prosecute any alcohol or drug abuse patient.[facility] CenterIn the event this information is protected by the Federal Confidentiality of Alcohol and Drug Abuse Patient Records regulations: The Federal rules restrict any use of the information to criminally investigate or prosecute any alcohol or drug abuse patient.[facility] CenterIn the event this information is protected by the Federal Confidentiality of Alcohol and Drug Abuse Patient Records regulations: The Federal rules restrict any use of the information to criminally investigate or prosecute any alcohol or drug abuse patient.[facility] FOR RECORDS PERTAINING TO PATIENTS WHO ARE [...] BE BASED ON THE PRIMARY CLINICAL RECORDS. [facility] [employer] [facility]. provides no warranty or guarantee of the accuracy or completeness of information in this document.
[2023-10-20 10:58] LABS: Basophils Percent Auto 0.5 % (0.2-2.0); Eosinophils Absolute Auto 0.1 10^3/uL (0.0-0.7); Eosinophils Percent Auto 1.3 % (0.9-7.0); Hematocrit 42.5 % (36.0-48.0); Hemoglobin 13.9 g/dL (12.0-16.0); Immature Granulocytes Abs Auto 0.04 10^3/uL (0.00-0.03); Immature Granulocytes Pct Auto 0.5 % (0.0-0.5); Lymphocytes Absolute Auto 1.8 10^3/uL (1.2-3.8); Lymphocytes Percent Auto 22.5 % (20.5-60.0); Mean Corpuscular HGB Conc 32.7 g/dL (29.9-35.2); Mean Corpuscular Hemoglobin 29.7 pg (26.7-34.0); Mean Corpuscular Volume 90.8 fL (81.0-99.0); Mean Platelet Volume 8.7 fL (9.5-13.5); Monocytes Absolute Auto 0.5 10^3/uL (0.3-0.8); Monocytes Percent Auto 6.4 % (1.7-12.0); Neutrophils Absolute Auto 5.4 10^3/uL (1.4-6.5); Neutrophils Percent Auto 68.8 % (43.0-75.0); Platelet Count 248 10^3/uL (150-450); Red Blood Count 4.68 10^6/uL (4.20-5.40); Red Cell Distribution Width 12.4 % (11.0-15.0); White Blood Count 7.8 10^3/uL (4.0-11.0)
[2023-10-20 11:13] LABS: Estimated Average Glucose 97 mg/dL
[2023-10-20 11:27] LABS: Alanine Aminotransferase 21 U/L (14-59); Albumin Globulin Ratio 0.8; Albumin Level 3.3 g/dL (3.4-5.0); Alkaline Phosphatase 76 U/L (46-116); Anion Gap 12.1; Aspartate Amino Transferase 19 U/L (15-37); BUN Creatinine Ratio 11.8; Bilirubin Total 0.5 mg/dL (0.2-1.0); Calcium 9.1 mg/dL (8.5-10.1); Carbon Dioxide 28.7 mmol/L (21.0-32.0); Chloride 103 mmol/L (98-107); Chol HDL Ratio 2.9; Cholesterol 190 mg/dL (<=200); Estimated GFR (African America >60 (>=60); Estimated GFR (Non-African Ame >60 (>=60); Free T3 2.48 pg/mL (2.18-3.98); Globulin 4.1 g/dL; Glucose 93 mg/dL (74-106); HDL Cholesterol 65 mg/dL (40-60); Potassium 3.8 mmol/L (3.5-5.1); Sodium 140 mmol/L (136-145); Total Protein 7.4 g/dL (6.4-8.2); Triglycerides 85 mg/dL (<=150)
== END 2023-10-20 10:23 | disposition home or self-care (01) ==
LOC: LAB 10:23
PROVIDERS: PCP Family Medicine; Visit Provider Family Medicine
DX: G47.00 Insomnia, unspecified (principal); E11.621 Type 2 diabetes mellitus with foot ulcer; E78.5 Hyperlipidemia, unspecified; Z12.11 Encounter for screening for malignant neoplasm of colon; T14.8XXA Other injury of unspecified body region, initial encounter; Z79.899 Other long term (current) drug therapy; E03.9 Hypothyroidism, unspecified
CPT/HCPCS: 36415; 80053; 80061; 83036; 84436; 84443; 84481; 85025

== ENCOUNTER 2024-02-15 10:29 | Outpatient (OUT) | payer MEDICARE, SELFPAY ==
[2024-02-15 11:05] LABS: Bilirubin Urine NEGATIVE (NEGATIVE); Blood Urine TRACE-I (NEGATIVE); Clarity Urine CLEAR (CLEAR); Color Urine LT. YELLOW (YELLOW); Glucose Urine UA NEGATIVE (NEGATIVE); Ketones Urine NEGATIVE (NEGATIVE); Leukocyte Esterase Urine MODERATE (NEGATIVE); Nitrite Urine NEGATIVE (NEGATIVE); Protein Urine NEGATIVE (NEG/TRACE); Urobilinogen Urine 0.2 EU/dL (0.2-1.0)
[2024-02-16 04:08] LABS: Vitamin B12 790 pg/mL (232-1245)
== END 2024-02-15 10:30 | disposition home or self-care (01) ==
LOC: LAB 10:31
PROVIDERS: PCP Family Medicine; Visit Provider Family Medicine
DX: E53.8 Deficiency of other specified B group vitamins (principal); R32 Unspecified urinary incontinence
CPT/HCPCS: 36415; 81003; 82607; 82746; 87086

== ENCOUNTER 2024-06-01 08:48 | Outpatient (OUT) | payer MEDICARE, SELFPAY | END 2024-06-01 08:49 | disposition home or self-care (01) | LOC: WC 08:49 | PROVIDERS: PCP Family Medicine; Visit Provider Physician Assistant | DX: L89.892 Pressure ulcer of other site, stage 2 (principal); L97.521 Non-pressure chronic ulcer of other part of left foot limited to breakdown of skin | CPT/HCPCS: 11043 ==

== ENCOUNTER 2024-06-15 10:10 | Outpatient (OUT) | payer MEDICARE, SELFPAY ==
--- OUTSIDE RECORDS SUMMARY | 2024-06-15 10:22 | XMS_ITS | CCD ---
Author Organization [facility] Care Team Providers Care 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 Name Role Phone Praveen Lopez Unavailable Unavailable PHYSICIAN, DEFAULT Unavailable Unavailable PHYSICIAN, DEFAULT Unavailable Unavailable SARA VICK Unavailable Unavailable Sara Vick~[phone] UNKNOWN Admitting Unavailable Sara Vick~[phone] UNKNOWN Attending Unavailable Sara Vick~[phone] UNKNOWN Referring Unavailable Sara Vick Primary Care Provider Trino Yoo Attending Provider Larry Brown Unavailable Sara Vick Primary Care Physician Lynn Salas Unavailable Unavailable Flor Wheeler Unavailable Unavailable ADELE FLEMING Attending Unavailable SARA VICK Primary Care Unavailable MD Sara Vick Primary Care Provider MD Sara Vick Attending Provider [phone] DEEPALI JANSEN Consulting Unavailable DEEPALI JANSEN Admitting Unavailable DEEPALI JANSEN Attending Unavailable DR SARA OVERTON Primary Care Unavailable ADELE FLEMING Attending Unavailable ADELE FLEMING Admitting Unavailable DR SARA OVERTON Primary Care Unavailable ADELE FLEMING Admitting Unavailable ADELE FLEMING Attending Unavailable DR SARA OVERTON Primary Care Unavailable NICANOR Mohan, DR RUIZ Consulting Unavailable NICANOR Mohan, DR RUIZ Primary Care Unavailable NICANOR Mohan, DR RUIZ Admitting Unavailable NICANOR Mohan, DR [...] Deal Consulting Unavailable ELZBIETA, DEEPALI Admitting Unavailable ELZBIETA, DEEPALI Attending Unavailable HOY ., DR RUIZ Primary Care Unavailable ELZBIETADEEPALI HANSEN Consulting Unavailable HIGHLJEANE, ADELE Means Attending Unavailable HIGHLANDER, ADELE Means Admitting Unavailable HOY ., DR RUIZ Primary Care Unavailable WEST, DR ALFRED Deal Attending Unavailable WEST, DR ALFRED Deal Consulting Unavailable WEST, DR ALFRED Deal Admitting Unavailable HOY ., DR RUIZ Primary Care Unavailable SHAHZADCHAGO, DR JULIO Wu Consulting Unavailable WEST, DR [...] HOY ., DR RUIZ Primary Care Unavailable HIGHLJEANE, ADELE Means Admitting Unavailable HIGHLANDER, ADELE Means [...] Unavailable Sara Vick MD Primary Care Provider [phone] Julio Ferrara Consulting Unavailable Francisco Alcazar S Admitting Unavailable Francisco Alcazar S Attending Unavailable Towanda, Julio Consulting Unavailable Towanda, Julio Consulting Unavailable Towanda, Julio Consulting Unavailable Towanda, Julio Consulting Unavailable Towanda, Julio Consulting Unavailable Towanda, Julio Consulting Unavailable Towanda, Julio Consulting Unavailable Towanda, Julio Consulting Unavailable Wm Nagy Attending Unavailable Flavio Castillo Attending Unavailable Alley Naranjo Admitting Unavailable Alley Naranjo Attending Unavailable Jose A, Alley Referring Unavailable Dominique Shane Unavailable MD Sara Vick Primary Care Provider MD Larry Brown Attending Provider Kiran Kessler Unavailable HAILEY Jansen Attending Provider MD Kiran Kessler Attending Provider Sara Vick MD Primary Care Provider [phone] Sara Vick Primary Care Unavailable Stephanie, Larry S Admitting Unavailable Larry Brown S Attending Unavailable Hoy, Sara M Primary Care Unavailable Deepali Jansen Admitting Unavailable Deepali Jansen Attending Unavailable Sara Vick M Primary Care Unavailable Kiran Kessler Admitting Unavailabl Kiran Hendrix Attending Unavailabl e Hoy, Sara M Primary Care Unavailable Stephanie, Larry S Admitting Unavailable Larry Brown S Attending Unavailable MD Sara Vick Primary Care Provider [phone] HAILEY Jansen Attending Provider MD Kiran Kessler Attending Provider [phone] ANNIE JIMENEZ Attending Unavailable ANNIE JIMENEZ Referring Unavailable АЛЕКСАНДР, ROS Referring Unavailable HOY, SARA M Primary Care Unavailable HOY, SARA M Primary Care Unavailable PELLE, GHANSHYAM Referring Unavailable HOY, SARA M Primary Care Unavailable PELLE, GHANSHYAM Referring Unavailable HOY, SARA M Primary Care Unavailable PELLE, GHANSHYAM Attending Unavailable HOY, SARA M Referring Unavailable HOY, SARA M Primary Care Unavailable Unavailable Unavailable Unavailable Allergies Allergy Classification Reported Allergen(s) Allergy Type Date of Onset Reaction(s) Facility (1 source) Sulfa Antibiotics 06-19-19 18 [facility] (3 sources) Sulfonamides (Antibiotic) Drug allergy (disorder) 08-02-19 10 [facility] Repository (4 sources) Sulfamethoxazole; Translations: [sulfamethoxazole ] Drug Allergy Cutaneous eruption (morphologic abnormality) [facility] (2 sources) Sulfur; Translations: [Sulfur] Drug Allergy [facility] Repository (11 sources) Sulfonamides (Antibiotic); Translations: [Sulfa (Sulfonamide Antibiotics)] Allergy to substance 07-17-19 07 Rash [facility] (17 sources) Sulfacetamide Drug Allergy 09-19-19 23 [facility] Other (2 sources) metroNIDAZOLE Drug Allergy 09-19-19 23 Dyspepsia [facility] (1 source) Sulfacetamide Drug Allergy 07-01-19 24 [facility] Repository Medications Current Medications Medication Drug [...] for 30 days Dec, Active Start: 03-08-2022 [place] 325 mg-5 mg oral tablet 1 tab(s), Oral, q4hr for pain, 12 tab(s), Refill(s) 0, [facility]/pharmacy #[id number], 172, cm, 03/08/22 13:49:00 EST, [...] 70 MG tablet take 1 tablet by once daily Alendronate Sodium 70 MG 1 [...] Daily, # 30 tab(s), Refills(s) 0, Pharmacy: [facility]/pharmacy #[id number], 172.7, cm, 07/26/22 11:43:00 EDT, [...] 06/19/2017 9:00:00 take 1 capsule by mo [facility] every twenty-four hours Vitamin D3 50 [...] 1:00am Start: 06-19-2017 take 1 tablet by [facility] once daily Pantoprazole Sodium Tablet Delayed Release [...] Skin Test, Skin Test Antigen Start: End: 03-15-2 018 Tuberculin PPD Solution 5 UNIT/0.1ML 0.1 ml [...] PRN; Start: 07-26-2022 take 2 tablets by mo [facility] every eight hours as needed for muscle spasms tiZANidine 4 mg Tab 8 mg = 2 tab(s), Oral, q8hr, PRN Spasm, Refills(s) 0 Start Date: 07/26/22 Status: Ordered Start: 06-19-2017 take 2 tablets by mo [facility] twice daily Zanaflex Tablet 4 MG 2 tablet Tablet Oral GIVE 2 TABS (8MG) BY MOUTH TWICE DAILY FOR MUSCLOSKELETAL 06/19/2017 9:00:00 take 1 capsule by [facility] once daily at bedtime tiZANidine HCl 4 mg capsule Take 4 mg by mouth daily at bedtime. 0 Active take 1 capsule by [facility] every eight hours tiZANidine HCl 4 [...] Capsule Discontinued 100 MG PO Twice daily May 08, 2020 1:00am September 10, 2022 [...] Nonsteroidal Anti-inflammatory Drug Start: 04-24-19 End: 09-11-19 take 800 mg by mouth four times daily Ibuprofen Discontinued 800 MG PO Four times daily April 24, 2020 1:00am September 10, 2022 11:49am losartan potassium 100 mg oral tablet (20 sources) Angiotensin 2 Receptor Mike Start: 06-18-19 take 1 tablet by mouth once daily losartan 100 mg ORAL tablet Take 1 tablet by mouth once daily. 0 06/18/2011 Active Losartan Sawi um Active Comment on above: Take 1 tablet by once daily. Vitamin D3 1000 intl units [...] 07-01-2013 Chronic Other aftercare (1 source) Other intermodal customer service (current) drug therapy; Translations: [OTH CHOCOLATE TEMPERER CURRENT DRUG THERAPY] Onset: 3 Episodic Other [...] sources) Peripheral vascular disease; Translations: [Atherosclerosis of algaaciq arteries of extremities with intermittent claudication, bilateral [...] MR Thoracic spine WO contras ton 08-08-2023 [facility] MRI THORACIC SPINE WO IVCONo [...] and assume there are 5 lumbar-type vertebrae. 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 THE [place] [employer] GUIDELINES RECOMMEND THAT WOMEN 40 YEARS OF AGE AND OLDER SHOULD HAVE A MAMMOGRAM EVERY YEAR. A REMINDER LETTER WILL BE SENT AT THE APPROPRIATE TIME. ELECTRONICALLY SIGNED BY: Claudia Clark, Normal Not Available Comment on above: Order Comment: U/S a nd spot compression if indicated CT LUMBAR SPINE WO IVCONon 0 07-13-2023 CT LUMBAR SPINE WO IVCON * * *Final Report* * * DATE OF EXAM: Jul 13 2023 11:11AM [facility] 0508 - CT LUMBAR SPINE WO IVCON [...] are 5 lumbar-type vertebrae. Anatomic variant: None. Rate Quoting Operator (topogram) images: Left femoroacetabular arthroplasty. Alignment: Mild [...] any questions regarding this interpretation, please call [phone]. If you are unable to reach us at the number above, please feel free to contact [facility] eRadiology at [phone]. [id number] Normal [facility] CT Lumbar spine WO contrasto n 07-13-2023 [facility] CNOVon 06-24-2023 CNOV Office Visit (SPNSMN ) LEELEE CEDILLO ([id number]) 1950 F Date Time Provider Department 06/24/23 1:40 PM GHANSHYAM LOMBARDI NSMN During your visit today, we recorded the [...] Ghanshyam Lombardi MD Referring Provider: SARA VICK [[id number]] Allergies As of Date: 06/24/2023 Noted Allergy Reaction SULFA (SULFONAMIDE ANTIBIOTICS) 07/16/2006 Date Reviewed: 06/24/2023 Reviewed by: Kaur Manzano MA - Fully Assessed Reason for Visit: New Patient [172] Primary Visit Diagnosis:Adjacent segment disease of lumbar spine with history of fusion procedure [M51.36, Z98.1] Other Visit Diagnosis:Chronic bilateral low back pain with bilateral sciatica [M54.42, M54.41, G89.29] Order(s):MRI THORACIC SPINE WO IVCON [[id number]] Order #: [id number] FUTURE CT LUMBAR SPINE WO IVCON [[id number]] Order #: [id number] FUTURE Prescriptions as of 06/24/2023 - pantoprazole [...] Number of different views (projections): 2 (accession [id number]), 4 (accession [id number]) COMPARISON: Radiographs dated 09/23/2021 RESULT: Counting reference: [...] changes with no evidence of hardware complication. 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: [facility] Transcribe Date/Time: Jun 24 2023 12:52P Dictated by : LATASHA QUEZADA MD This examination was interpreted and the report reviewed and electronically signed by: LATASHA QUEZADA MD on Jun 24 2023 12:55PM EST [id number] Normal [facility] XR Lumbar spine Views W flex ion and W extensionon 06-24-2023 [facility] XR SCOLIOSIS 2V PA STAND/LAT on 06-24-2023 [...] Number of different views (projections): 2 (accession [id number]), 4 (accession [id number]) COMPARISON: Radiographs dated 09/23/2021 RESULT: Counting reference: [...] changes with no evidence of hardware complication. 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: [employer] Transcribe Date/Time: Jun 24 2023 12:52P Dictated by : LTAASHA QUEZADA MD This examination was interpreted and the report reviewed and electronically signed by: LATASHA QUEZADA MD on Jun 24 2023 12:55PM EST [id number] Normal [facility] XR Thoracic and lumbar spine Views for scoliosis W standingon 06-24-2023 [facility] US arterial pvr rest Vito US arterial pvr rest [facility] [place] [address] Ultrasound Report Signed Patient: Leelee Cedillo MR#: [id number] 56 : 1950 Acct:[id number] Age/Sex: 72 / F ADM Date: 05/22/23 [...] Drake Bates M.D.05/25/2023 10:58 AM Dictation Location: [place] [address] Tech: Katy Leone Transcribed By: LISBETH 05/25/23 1058 Dictated By: Drake Bates MD 05/25/23 1057 Signed By: 05/25/23 1058 Normal [facility] US venous duplex LE BIon US venous duplex LE BI [facility] [place] [address] Ultrasound Report Signed Patient: Leelee Cedillo MR#: [id number] 56 : 1950 Acct:[id number] Age/Sex: 72 / F ADM Date: 05/22/23 [...] vein has previously been stripped. No significant solid waste manager incompetence is noted. The lesser saphenous vein [...] Drake Bates M.D.05/25/2023 10:57 AM Dictation Location: [place] [address] Tech: Katy Leone Transcribed By: LISBETH 05/25/23 1057 Dictated By: Drake Bates MD 05/25/23 1055 Signed By: 05/25/23 1057 Normal [facility] ED Note-Physicianon 11-26-19 ED Note-Physician Normal [facility] Comment on above: Result Comment: Elec tronically Signed By: Sathya De La O PA-C\.br\Date and Time Signed: 11/22/22 14:13 EDT\.br\Electronically Co-Signed By: Flavio Castillo MD\.br\Date and Time Co-Signed: 11/25/22 13:23 EDT Consent for Treatmenton Consent for Treatment [id number]#1.0 0CD:127 Normal [facility] Discharge Instructionson Discharge Instructions [id number]#1. 00CD:127 Normal [facility] ED Clinical Summaryon 2022 ED Clinical Summary Normal Stefania wu [facility] ED Patient Education Noteon 11-22-2022 ED Patient Education Note Normal [facility] ED Patient Summaryon 023 ED Patient Summary Normal [facility] Neurology Forms- Texton Neurology Forms- Text [id number]#1. 00CD:127 Normal [facility] EEGon 09-11-2022 EEG [facility] Comment on above: Result Comment: Elec tronically Signed By: Jonathan Powell DO\.br\Date and Time Signed: 09/11/22 10:41 EDT Consent for Treatmenton 08-19 Consent for Treatment [id number]#1.0 0CD:127 Normal [facility] Physician Orderon 09-03-2022 Physician Order [id number]#1.0 0CD:127 Normal [facility] VC CONSULT FOLLOWUPon 2022 VC CONSULT FOLLOWUP Patient: ITZEL CEDILLO Exam Date: 08/08/2022 : 1950 Gender:F Ordering : DR ALFRED UMAÑA M.D. Admission #: [id number] Family : Order #: [id number] CLICK HERE TO VIEW EXAM RADIOLOGY REPORT [...] Umaña MD on 08/08/2022 at 10:59 Normal [facility] EXT VENOUS LT LIMITEDon 0 08-08-2022 VC EXT VENOUS LT LIMITED Patient: LEELEE CEDILLO Exam Date: 08/08/2022 : 1950 Gender:F Ordering : DR ALFRED UMAÑA M.D. Admission #: [id number] Family : Order #: [id number] CLICK HERE TO VIEW EXAM RADIOLOGY REPORT [...] Umaña MD on 08/08/2022 at 09:43 Normal [facility] Coding Summary.on 07-29-2022 Coding Summary. Normal [facility] Insurance Correspondenceon 0 07-29-2022 Insurance Correspondence [id number]#1.0 0CD:127 Normal [facility] Insurance Correspondence Off iceon 07-29-2022 Insurance Correspondence Office [id number]#1. 00CD:127 Normal [facility] Discharge Instructionson Discharge Instructions [id number]#1. 00CD:127 Normal [facility] PzzF8oam 07-28-2022 HbA1c (Bld) [Mass fraction] 5.3 % Normal <=5.9 [facility] Comment on above: Performed By: #### 2 156632, 1722988, 8533230, 1696894, [id number], [id number] ####[facility] [address] [place] [address] Insurance Correspondenceon 0 07-28-2022 Insurance Correspondence [id number]#1. 00CD:127 Normal [facility] C. diff by PCRon 07-27-2022 Clostridium difficile by PCR Negative Normal Negative [facility] Comment on above: Order Comment: Order added by Discern Expert. Result Comment: This test result should be correlated with clinical presentations and medical history by a healthcare provider to determine its clinical significance. Performed By: #### 3 [id number], [id number], [id number] ####[facility] [address] [facility] [address] CDiff PCRon 07-27-2022 Cdiff Specimen Acceptable Acceptable Normal [facility] Comment on above: Performed By: #### 3 [id number], [id number], [id number] ####[facility] [address] [facility] [place] [address] Order Cancelled No, PCR to follow Normal [facility] Comment on above: Performed By: #### 3 [id number], [id number], [id number] ####[facility] [address] [place] [id number] CHEMISTRYOrdered By: SYSTEM SYSTEM on 07-27-2022 Anion [...] Remisol Consultation Noteon 07-28-19 Consultation Note Normal [facility] Comment on above: Result Comment: Elec tronically Signed By: Rachel MEEHAN, Smita Reardon\.br\Date and Time Signed: 07/27/22 07:14 EDT\.br\Electronically Co-Signed By: Jonathan Powell DO\.br\Date and Time Co-Signed: 07/27/22 10:23 EDT EMS Documentationon 07-28-19 EMS Documentation Normal [facility] EMS Documentation Normal [facility] EMS Documentation Normal [facility] Enteric Panel by PCRon 07-27 C. coli+jejuni+upsaliens is DNA VIVIANA+non-probe Ql (Stl) Not detected Normal [facility] Comment on above: Result Comment: Test ing was performed utilizing reverse interactive designer (RT), polymerase chain reaction (PCR), and array [...] nulcleic acid test. Performed By: #### 3 [id number], [id number], [id number] ####[place] [address] [place] [address] E. coli stx1+stx2 genes VIVIANA+non-probe Ql (Stl) Negative Normal [facility] Comment on above: Performed By: #### 3 [id number], [id number], [id number] ####[place] [address] [place] [address] Enteric Panel Intrl QC Pass Normal [facility] Comment on above: Result Comment: Test ing was performed utilizing reverse interactive designer (RT), polymerase chain reaction (PCR), and array [...] 1 and 2. Performed By: #### 3 [id number], [id number], [id number] ####[place] [address] Norovirus genogroup I+II RNA VIVIANA+non-probe Ql (Stl) Not detected Normal [facility] Comment on above: Performed By: #### 3 [id number], [id number], [id number] ####[place] [address] Rotavirus A RNA VIVIANA+non-probe Ql (Stl) Not detected Normal [facility] Comment on above: Performed By: #### 3 [id number], [id number], [id number] ####[place] [address] S. enterica+bongori DNA VIVIANA+non-probe Ql (Stl) Not detected Normal [facility] Comment on above: Result Comment: This test result should be correlated with clinical presentations and medical history by a healthcare provider to determine its clinical significance. Performed By: #### 3 [id number], [id number], [id number] ####[place] [address] Shigella species+EIEC invasion plasmid antigen H ipaH gene VIVIANA+non-probe Ql (Stl) Not detected Normal [facility] Comment on above: Performed By: #### 3 [id number], [id number], [id number] ####[place] [address] V. cholerae+parahaemolyt icus+vulnificus DNA VIVIANA+non-probe Ql (Stl) Not detected Normal [facility] Comment on above: Performed By: #### 3 [id number], [id number], [id number] ####[facility] [address] [place] [address] Y. enterocolitica DNA VIVIANA+non-probe Ql (Stl) Not detected Normal [facility] Comment on above: Performed By: #### 3 [id number], [id number], [id number] ####[facility] [address] [place] [address] Free T4on 07-27-2022 Free T4 [Mass/Vol] 1.91 ng/dL High 0.58-1.64 [facility] Comment on above: Order Comment: Free T4 added by Discern Rule due to a TSH result of <0.34 or >5.60. Performed By: #### 2 709138, 1840985, 1890537, 5183533, 709957126, 94893437 ####[facility] [address] [place] [address] HEMATOLOGYOrdered By: Tonya Martin on 07-27-2022 WBC corrected for nucl RBC Auto (Bld) [#/Vol] 7.8 E9/L Normal 4.0 - 11.0 E9/L [facility] HemeAutoSS Inpatient Clinical Summaryon 07-27-2022 Inpatient Clinical Summary Normal [facility] Inpatient Patient Summaryon 07-27-2022 Inpatient Patient Summary Normal [facility] Inpatient Patient Summary Normal [facility] Interdisciplinary Note - Oumar e Manageron 07-27-2022 Interdisciplinary Note - Dispatch Specialist Normal [facility] Comment on above: Result Comment: Elec tronically Signed By: Tonya Matias.alicja\Date and Time Signed: 07/27/22 12:04 EDT Interdisciplinary Note - Pipe n 07-27-2022 Interdisciplinary Note - OT Normal [facility] Interdisciplinary Note - PTo n 07-27-2022 Interdisciplinary Note - PT PT eval completed; pt scores 16/24 on the AM-PAC 6-Clicks 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 Pt is able to safely perform bed <> chair transfers as she was doing prior to admission and has no further PT needs at this time. Normal [facility] Lipid Panelon 07-27-2022 Cholesterol in LDL [Mass/Vol] 91 mg/dL Normal <=129 [facility] Comment on above: Performed By: #### 2 231263, 0257192, 4032088, 8592402, [id number], 09645839 ####[facility] [address] [place] [address] Cholesterol [Mass/Vol] 160 mg/dL Normal 120-200 [facility] Comment on above: Performed By: #### 2 622231, 0540992, 3977995, 7071751, 971599220, 02608076 ####[facility] [address] [place] [address] Cholesterol in HDL [Mass/Vol] 52 mg/dL Invalid Interpretation Code [facility] Comment on above: Result Comment: HDL > or equal to 60 mg/dL: Low cardiovascular riskHDL < 40 mg/dL : High cardiovascular risk Performed By: #### 2 235134, 8703105, 3417418, 9897307, 506453236, 94872982 ####[facility] [address] [place] [address] Cholesterol in VLDL [Mass/Vol] 17 mg/dL Normal 7-40 [facility] Comment on above: Performed By: #### 2 042396, 1520722, 0563060, 9817404, 219994604, 58832753 ####[facility] [address] [place] [address] Triglyceride [Mass/Vol] 83 mg/dL Normal <=149 [facility] Comment on above: Performed By: #### 2 318311, 8503219, 1197531, 7489893, 468945546, 11528046 ####[facility] [address] [place] [address] Lyteson 07-27-2022 Anion gap [Moles/Vol] 9 mmol/L Normal 6-16 [facility] Comment on above: Performed By: #### 2 927589, 1032555, 7551158, 3603498, 953944262, 33070616 ####[facility] [address] [place] [address] Chloride [Moles/Vol] 106 mmol/L Normal 101-111 [facility] Comment on above: Performed By: #### 2 297076, 6910895, 4690272, 2313230, 260607021, 41998426 ####[facility] [address] [place] [address] CO2 [Moles/Vol] 26 mmol/L Normal 21-31 [facility] Comment on above: Performed By: #### 2 465795, 1853227, 1551168, 9169913, 739086772, 36710673 ####[facility] [address] [place] [address] Potassium [Moles/Vol] 4.0 mmol/L Normal 3.5-5.3 [facility] Comment on above: Performed By: #### 2 772733, 7414759, 0329538, 0653419, 379313840, 09895413 ####[facility] [address] [place] [address] Sodium [Moles/Vol] 137 mmol/L Normal 135-145 [facility] Comment on above: Performed By: #### 2 048691, 7277703, 7782051, 0647199, 861351926, [id number] ####[facility] [address] [place] [address] MRA Head w/o Contraston MRA Head w/o Contrast Normal [facility] MRI Brain w/o Contraston MRI Brain w/o Contrast Normal [facility] Monitor Recordon 07-27-2022 Monitor Record [id number]#1. 00CD:127 Normal [facility] Monitor Record [id number]#1. 00CD:127 Normal [facility] Patient Education - Texton 0 07-27-2022 Patient Education - Text Normal [facility] RAD - MRI Screening Formon 0 07-27-2022 RAD - MRI Screening Form [id number]#1. 00CD:127 Normal [facility] TSH With T4fr Reflexon 07-27 TSH Qn 0.16 m[IU]/L Low 0.34-5.60 [facility] Comment on above: Performed By: #### 2 822501, 5570899, 7830069, 3869351, 609780631, 32010995 ####[facility] [address] [place] [address] Troponin 9 Hr.on 07-27-2022 Troponin I.cardiac [Mass/Vol] 6.70 pg/mL Low 10.10-27.10 [facility] Comment on above: Result Comment: The 95% CI (Confidence Interval) PPV (Positive Predictive Value) for myocardial infarction in females is 38 pg/mL, in males 51 pg/mL. The results should be used in conjunction with clinical conditions of myocardial infarction.([facility] High Sensitivity Troponin I Instructions For Use, amBX, November 2017) Performed By: #### 1 [id number] ####[facility] [address] [place] [address] WBCon 07-27-2022 WBC corrected for nucl RBC Auto (Bld) [#/Vol] 7.8 E9/L Normal 4.0-11.0 [facility] Comment on above: Performed By: #### 2 059366, 0306188, 8650633, 2405799, 291562524, 62938080 ####[facility] [address] [place] [address] Auto Diffon 07-26-2022 Basophils/100 WBC (Bld) 0.5 % Normal 0.0-2.0 [facility] Comment on above: Order Comment: Order Added by Discern Expert. Performed By: #### 2 328501, 6071728, 9195682, 3316615, 92813403, 98283531 ####[facility] [address] [place] [address] Basophils/Leukocytes Auto (Bld) [Pure # fraction] 0.1 E9/L Normal 0.0-0.2 [facility] Comment on above: Order Comment: Order Added by Discern Expert. Performed By: #### 2 881612, 6393160, 7236616, 1211321, 10704606, 33963264 ####[facility] [address] [place] [address] Eosinophils/100 WBC (Bld) 0.5 % Normal 0.0-8.0 [facility] Comment on above: Order Comment: Order Added by Discern Expert. Performed By: #### 2 541337, 5756034, 4627724, 4319021, 84992241, 67703816 ####[address] [address] Eosinophils/Leukocyte s Auto (Bld) [Pure # fraction] 0.1 E9/L Normal 0.0-0.5 [facility] Comment on above: Order Comment: Order Added by Ham Expert. Performed By: #### 2 269004, 9445013, 5882364, 4275770, 97005843, 57667625 ####[address] [address] Lymphocytes/100 WBC (Bld) 14.5 % Normal 14.0-50.0 [facility] Comment on above: Order Comment: Order Added by Ham Expert. Performed By: #### 2 941897, 5484796, 3405242, 5714211, 21553126, 30781531 ####[address] [address] Lymphocytes/Leukocyte s Auto (Bld) [Pure # fraction] 2.1 E9/L Normal 1.0-4.0 [facility] Comment on above: Order Comment: Order Added by Ham Expert. Performed By: #### 2 844598, 2207587, 4111969, 6533900, 84323627, 97879275 ####[address] [place] [address] Monocytes/100 WBC (Bld) 6.5 % Normal 4.0-14.0 [facility] Comment on above: Order Comment: Order Added by Discern Expert. Performed By: #### 2 987667, 2559666, 4974222, 5855955, 80774460, 13021746 ####[facility] [address] [place] [address] Monocytes/Leukocytes Auto (Bld) [Pure # fraction] 0.9 E9/L Normal 0.2-1.0 [facility] Comment on above: Order Comment: Order Added by Discern Expert. Performed By: #### 2 639461, 3264515, 3747372, 5567275, 30615547, 69671875 ####[facility] [address] [place] [address] Neutrophils/100 WBC (Bld) 78.0 % High 36.0-75.0 [facility] Comment on above: Order Comment: Order Added by Discern Expert. Performed By: #### 2 847468, 1830435, 9565895, 7264041, 36243110, 27704341 ####[facility] [address] [place] [address] Neutrophils/Leukocyte s Auto (Bld) [Pure # fraction] 11.4 E9/L High 2.0-7.5 [facility] Comment on above: Order Comment: Order Added by Discern Expert. Performed By: #### 2 987234, 9697126, 3399804, 5175417, 08872307, 40218437 ####[facility] [address] [place] [address] BMPon 07-26-2022 Creatinine [Mass/Vol] 0.8 mg/dL Normal 0.5-1.3 [facility] Comment on above: Performed By: #### 2 264058, 9061705, 0365784, 2655962, 39633896, 45936956 ####[facility] [address] [place] [address] Urea nitrogen [Mass/Vol] 11 mg/dL Normal 5-21 [facility] Comment on above: Performed By: #### 2 829767, 1621949, 4537120, 8792804, 67973574, 44895513 ####[facility] [address] [place] [address] Urea nitrogen/Creatinine [Mass ratio] 14 No Units Normal 10-20 [facility] Comment on above: Performed By: #### 2 902624, 0466597, 1515486, 9157928, 18214516, 69664781 ####[facility] [address] [facility] [address] Anion gap [Moles/Vol] 13 mmol/L Normal 6-16 [facility] Comment on above: Performed By: #### 2 464377, 3434692, 3230994, 8483743, 96867875, 39651439 ####[facility] [address] [place] [address] Calcium [Mass/Vol] 9.3 mg/dL Normal 8.9-11.1 [facility] Comment on above: Performed By: #### 2 222961, 9702526, 8408384, 7284382, 75450382, 51330618 ####[facility] [address] [place] [address] Chloride [Moles/Vol] 101 mmol/L Normal 101-111 [facility] Comment on above: Performed By: #### 2 813934, 6522379, 0316689, 8988898, 12916424, 66123280 ####[facility] [address] [place] [address] CO2 [Moles/Vol] 27 mmol/L Normal 21-31 [facility] Comment on above: Performed By: #### 2 880418, 1345772, 2499542, 0972679, 04341964, 31511361 ####[facility] [address] [place] [address] Glucose [Mass/Vol] 88 mg/dL Normal 55-199 [facility] Comment on above: Result Comment: If t his glucose result represents a fasting glucose, interpretation should refer to the following reference range: 55-99 mg/dL Performed By: #### 2 348424, 7701348, 3881191, 4741433, 28994204, 78051944 ####[facility] [address] [place] [address] Potassium [Moles/Vol] 3.6 mmol/L Normal 3.5-5.3 [facility] Comment on above: Performed By: #### 2 435266, 3629353, 7734189, 0376053, 11842017, 24013815 ####[facility] [address] [place] [address] Sodium [Moles/Vol] 137 mmol/L Normal 135-145 [facility] Comment on above: Performed By: #### 2 489239, 9538347, 7668708, 8919413, 73695685, 31351233 ####[address] [address] CBC w/ Auto Diffon 3 Erythrocyte distribution width (RBC) [Ratio] 13.9 % Normal 10.9-14.2 [facility] Comment on above: Performed By: #### 2 794300, 3938556, 3137454, 0801865, 44284224, 01237052 ####[facility] [address] [place] [address] Hematocrit (Bld) [Volume fraction] 47.0 % High 34.0-46.0 [facility] Comment on above: Performed By: #### 2 324322, 1455407, 5749276, 1422158, 89898708, 66361712 ####[facility] [address] [place] [address] Hemoglobin (Bld) [Mass/Vol] 15.3 g/dL Normal 12.0-16.0 [facility] Comment on above: Performed By: #### 2 599395, 9727954, 8547645, 2859271, 27264548, 57175880 ####[facility] [address] [place] [address] MCH (RBC) [Entitic mass] 29.2 pg Normal 27.0-34.0 [facility] Comment on above: Performed By: #### 2 326279, 5765699, 0695237, 2891021, 55951679, 15908878 ####[address] [address] MCHC (RBC) [Mass/Vol] 32.7 g/dL Normal 31.4-36.0 [facility] Comment on above: Performed By: #### 2 093301, 7727340, 3052570, 7785609, 25229793, 17506859 ####[address] [address] MCV (RBC) [Entitic vol] 89.3 fL Normal 80.0-100.0 [facility] Comment on above: Performed By: #### 2 718255, 5823700, 4166796, 7340931, 36084267, 67395563 ####[address] [address] Platelet mean volume (Bld) [Entitic vol] 6.7 fL Normal 6.4-10.8 [facility] Comment on above: Performed By: #### 2 483501, 2564431, 7390112, 4238530, 88977823, 24324444 ####[address] [address] Platelets (Bld) [#/Vol] 324.0 E9/L Normal 150.0-500.0 [facility] Comment on above: Performed By: #### 2 740336, 6757050, 9051267, 4791476, 96572588, 94533809 ####[address] [address] RBC (Bld) [#/Vol] 5.3 E12/L Normal 4.3-5.9 [facility] Comment on above: Performed By: #### 2 723236, 6054537, 5267119, 0272178, 54772516, 40278129 ####[facility] [address] [place] [address] WBC corrected for nucl RBC Auto (Bld) [#/Vol] 14.6 E9/L High 4.0-11.0 [facility] Comment on above: Performed By: #### 2 584041, 2982490, 2032006, 0033433, 91817657, 02704066 ####[facility] [address] [place] [address] CHEMISTRYOrdered By: SYSTEM SYSTEM on 07-26-2022 Troponin [...] Normal >=59mL/min/1 .73 m2 FT Chem S Glucose [Mass/Vol] 88 mg/dL Normal 55 - 199 mg/dL [facility] Remisol Magnesium [Mass/Vol] 2.0 mg/dL Normal 1.3 - 2 .4 mg/dL [facility] Remisol Potassium [Moles/Vol] 3.6 mmol/L Normal 3.5 - 5.3 mmol/L [facility] Remisol Sodium [Moles/Vol] 137 mmol/L Normal 135 - 145 mmol/L [facility] Remisol Urea nitrogen [Mass/Vol] 11 mg/dL Normal 5 - 21 mg/dL [facility] Remisol Urea nitrogen/Creatinine [Mass ratio] 14 mg/mg Normal 10 - 20 [facility] Remisol CHEMISTRYOrdered By: Lab ROP User on 07-26-2022 Glucose [Mass/Vol] 106 mg/dL High 55 - 99 mg/dL [facility] POC Subsection Comment on above: Result Comment: Parker wills RN/ POC Device SN [id number] Invalid Interpretation Code [facility] POC Subsection POC User ID [id number] Invalid Interpretation Code [facility] POC Subsection POC Username SHANKAR ABARCA Invalid Interpretation Code [facility] POC Subsection CT Head or Brain w/o Contras ton 07-26-2022 CT Head or Brain w/o Contrast Normal [facility] Capillary Glucose POCon Glucose [Mass/Vol] 106 mg/dL High 55-99 [facility] Comment on above: Result Comment: Parker wills RN/ Performed By: #### 2 [id number] ####[facility] [address] [place] [address] Consent for Treatmenton Consent for Treatment [id number] 0CD:127 Normal [facility] ED Clinical Summaryon 2022 ED Clinical Summary Normal [facility] ED Note-Physicianon 07-27-19 ED Note-Physician Normal [facility] Comment on above: Result Comment: Elec tronically Signed By: Yaritza Cedeño PA-C\.br\Date and Time Signed: 07/26/22 14:17 EDT\.br\Electronically Co-Signed By: Lance Wu M.D.\.br\Date and Time Co-Signed: 07/26/22 15:36 EDT ED Patient Education Noteon 07-26-2022 ED Patient Education Note Normal [facility] ED Patient Summaryon 023 ED Patient Summary Normal [facility] HEMATOLOGYOrdered By: SYSTEM SYSTEM on 07-26-2022 Basophils/100 [...] 14.6 E9/L High 4.0 - 11.0 E9/L [facility] HemeAutoSS Magnesiumon 07-26-2022 Magnesium [Mass/Vol] 2.0 mg/dL Normal 1.3-2.4 [facility] Comment on above: Performed By: #### 2 881585, 7051434, 1622298, 0022532, 00644579, 77329158 ####[facility] [address] [place] [address] Monitor Recordon 07-26-2022 Monitor Record [id number]:127 Normal [facility] Pre-Arrival Noteon 3 Pre-Arrival Note Normal [facility] Troponin 0 Hr.on 07-26-2022 Troponin I.cardiac [Mass/Vol] 6.60 pg/mL Low 10.10-27.10 [facility] Comment on above: Order Comment: pt st ill in imaging, will check back later [id number] 07/26/2022 12:32:06 EDT Result Comment: The 95% CI (Confidence Interval) PPV (Positive Predictive Value) for myocardial infarction in females is 38 pg/mL, in males 51 pg/mL. The results should be used in conjunction with clinical conditions of myocardial infarction.([facility] High Sensitivity Troponin I Instructions For Use, Christy Alrry, November 2017) Performed By: #### 2 629220, 4683816, 9826449, 3881840, 58678487, 86431432 ####[facility] [address] [place] [address] Troponin 3 Hr.on 07-26-2022 Troponin I.cardiac [Mass/Vol] 6.00 pg/mL Low 10.10-27.10 [facility] Comment on above: Result Comment: The 95% CI (Confidence Interval) PPV (Positive Predictive Value) for myocardial infarction in females is 38 pg/mL, in males 51 pg/mL. The results should be used in conjunction with clinical conditions of myocardial infarction.([facility] High Sensitivity Troponin I Instructions For Use, amBX, November 2017) Performed By: #### 1 0267063 ####[address] [address] Troponin 6 Hr.on 07-26-2022 Troponin I.cardiac [Mass/Vol] 5.40 pg/mL Low 10.10-27.10 [facility] Comment on above: Result Comment: The 95% CI (Confidence Interval) PPV (Positive Predictive Value) for myocardial infarction in females is 38 pg/mL, in males 51 pg/mL. The results should be used in conjunction with clinical conditions of myocardial infarction.([facility] High Sensitivity Troponin I Instructions For Use, amBX, November 2017) Performed By: #### 1 2085132 ####[address] [address] UA With Cult Reflexon 2022 Bacteria LM Ql (Urine sed) TRACE Normal Trace [facility] Comment on above: Performed By: #### 1 6786154 ####[address] [address] Bilirubin Ql (U) Negative Normal Negative [facility] Comment on above: Performed By: #### 1 7283523 ####[address] [address] Clarity (U) CLEAR Normal Clear [facility] Comment on above: Performed By: #### 1 8801599 ####[address] [address] Color (U) YELLOW Normal Yellow [facility] Comment on above: Performed By: #### 1 1876978 ####[facility] [address] [place] [address] Epithelial cells.squamous LM.HPF (Urine sed) [#/Area] 3-4 Normal 0-2 [facility] Comment on above: Performed By: #### 1 6532529 ####[address] [place] [address] Glucose Test strip (U) [Mass/Vol] Negative Normal Negative [facility] Comment on above: Performed By: #### 1 2479407 ####[address] [address] Hemoglobin Ql (U) Negative Normal Negative [facility] Comment on above: Performed By: #### 1 8444142 ####[address] [address] Ketones (U) [Mass/Vol] Negative Normal Negative [facility] Comment on above: Performed By: #### 1 2651048 ####[address] [address] [place].plasma/Lithiu m.RBC (Bld) [Mass ratio] 0-3 Normal 0-3 [facility] Comment on above: Performed By: #### 1 4211964 ####[address] [address] Nitrite Ql (U) Negative Normal Negative [facility] Comment on above: Performed By: #### 1 4464753 ####[address] [address] pH (U) 6.5 [pH] Invalid Interpretation Code 5.0-9.0 [facility] Comment on above: Performed By: #### 1 5797106 ####[address] [address] Protein (U) [Mass/Vol] Negative Normal Negative [facility] Comment on above: Performed By: #### 1 3682223 ####[address] [address] Specific gravity (U) [Rel density] <=1.005 Invalid Interpretation Code 1.005-1.030 [facility] Comment on above: Performed By: #### 1 2423649 ####[facility] [address] [place] [address] Type of Urine collection method Clean Catch Normal [facility] Comment on above: Performed By: #### 1 5380434 ####[facility] [address] [place] [address]57 Urobilinogen Qn (U) 0.2 {Malu'U}/dL Normal 0.0-1.0 [facility] Comment on above: Performed By: #### 1 9911963 ####[facility] [address] [place] [address] WBC Auto Ql (U) TRACE Abnormal Negative [facility] Comment on above: Performed By: #### 1 7557566 ####[place] [address] WBC LM.HPF (Urine sed) [#/Area] 0-5 Normal 0-5 [facility] Comment on above: Performed By: #### 1 4456653 ####[place] [address] URINALYSISOrdered By: Katerina Parker on 07-26-2022 Bacteria [...] PM) Normal Negative [facility] UA Auto SS [place].plasma/Lithiu m.RBC (Bld) [Mass ratio] 0-3 /HPF Normal [...] FT UA Auto SS Urobilinogen Qn (U) 0.6703310 {Malu'U}/dL Normal 0.0 - 1.0 EU/dL [facility] UA Auto SS WBC Auto Ql (U) Trace *ABN* (07/26/22 4:49 PM) Invalid Interpretation Code Negative [facility] UA Auto SS WBC LM.HPF (Urine sed) [#/Area] 0-5 /HPF Normal 0-5/HPF [facility] UA Auto SS XR Chest Single Viewon 07-26 XR Chest Single View Normal [facility] eGFRon 07-26-2022 GFR/1.73 sq M.predicted among blacks MDRD (S/P/Bld) [Vol rate/Area] mL/min/{1.73_m2} Normal >=59 [facility] Comment on above: Order Comment: Order added by Discern Expert. Result Comment: eGFR is race adjusted. AA=. Performed By: #### 2 635410, 8851051, 0725280, 7230474, 06999898, 89667376 ####[facility] [address] [place] [address] GFR/1.73 sq M.predicted among non-blacks MDRD (S/P/Bld) [Vol rate/Area] mL/min/{1.73_m2} Normal >=59 [facility] Comment on above: Order Comment: Order added by Discern Expert. Result Comment: Superintendent Tests gina kidney disease could be indicated at eGFR's of less than 60 mL/min/1.73m2. Kidney failure is indicated at less than 15 mL/min/1.73m2. Performed By: #### 2 879871, 6951743, 9705993, 7178934, 24132517, 54325426 ####[facility] [address] [place] [address] SURGICAL PATH REPORTon 07-25 SURGICAL PATH REPORT [facility] Department of Pathology [address] [place] [phone] Name: LEELEE CEDILLO : 1950 [facility] [id number] Number: Gender [facility] : n: Admit 71 years Attending ADELE FLEMING Age: Provider: Ordering ADELE FLEMING Provider: Consulti Surgical Pathology Report ng: ACCESSION: COLLECTED DATE/TIME: RECEIVED DATE/TIME: PATHOLOGIST: [id number] 07/24/2022 12:16 EDT 07/24/2022 12:16 EDT MICHELINE STERN MD Final Diagnosis Report for [facility] [place] RIGHT ANKLE, PUNCH BIOPSY: - FRAGMENT [...] MP:alexa 07/24/2022 Tissue pathology report for: [facility], [address] [place] [address]; ____ ____ Print 07/25/2022 15:48 EDT Number: Date/Time: [facility] Department of Pathology [address] [place], [place] [address] [phone] Name: LEELEE CEDILLO : 1950 [employer] [id number] Number: Gender Female [employer] OSWALDO : n: Admit 71 years Attending ADELE FLEMING Age: Provider: Ordering ADELE FLEMING Provider: Consulti Surgical Pathology Report ng: ACCESSION: COLLECTED DATE/TIME: RECEIVED DATE/TIME: PATHOLOGIST: [id number] 07/24/2022 12:16 EDT 07/24/2022 12:16 EDT LEENA RUFF, MICHELINE Gross Description PATHOLOGY SERVICES PROVIDED BY [employer] (CLIA #[id number]) in cooperation with [facility] at [address] [place] [address] ( CLIA #[id number]) Microscopic Diagnosis The final diagnosis is based on a microscopic exam of sales representative graphic art sections. Codes CPT CODE: 05193 ____ ____ Print 07/25/2022 15:48 EDT Number: Date/Time: [facility] Comment on above: Performed By: #### 9 [id number] #### [facility] Laboratory Services [address] [place] [address] Mural Artist: Jared Oh MD POINT OF CARE GLUCOSEon 04-0 Glucose [Mass/Vol] 114 mg/dL Critically high 74-106 [facility] Comment on above: Performed By: #### P OCGLUC #### [facility] [address] [place] [address] [address] Salvador Yung Glucose [Mass/Vol] 112 mg/dL Critically high 74-106 [facility] Comment on above: Performed By: #### P OCGLUC #### [facility] [address] [address] [address] Salvador Yung EMS Documentationon 07-21-19 EMS Documentation Normal [facility] Covid-19 PCR (CVDTBH)on 06-20 SARS-CoV-2 (COVID-19) RNA VIVIANA+probe Ql (Unsp spec) Not detected Normal NOT DETECTED [facility] Comment on above: Result Comment: This test is not yet approved or cleared by the [place] FDA. When there are no FDA-approved or cleared tests available, and other criteria are met, FDA can make tests available under an emergency access mechanism called an Emergency Use Authorization (EUA). The EUA for this test is supported by the [employer] Test of Health and Human Service's (HHS's) declaration [...] SARS-CoV-2. Performed By: #### C VDTBH #### [facility] [address] [place], [place] [address] Dr. Salvador Yung PROF CHEM 8 (BAS METB)on Anion gap [Moles/Vol] 12.0 mmol/L Normal [facility] Comment on above: Performed By: #### B MP #### [facility] [address] [address] [address] Salvador Yung Calcium [Mass/Vol] 9.4 mg/dL Normal 8.5-10.1 [facility] Comment on above: Performed By: #### B MP #### [facility] [address] [address] [address] Salvador Yung Chloride [Moles/Vol] 100 mmol/L Normal 98-107 [facility] Comment on above: Performed By: #### B MP #### [facility] [address] [address] [address] Salvador Yung CO2 [Moles/Vol] 29.8 mmol/L Normal 21.0-32.0 [facility] Comment on above: Performed By: #### B MP #### [facility] [address] [address] [address] Salvador Yung Creatinine [Mass/Vol] 0.91 mg/dL Normal 0.55-1.02 [facility] Comment on above: Performed By: #### B MP #### [facility] [address] [address] [address] Salvador Yung EGFR-AF VIETNAMESE >60 Normal >=60 [facility] Comment on above: Performed By: #### B MP #### [facility] [address] [address] [address] Salvadro Yung EGFR-NON AF VIETNAMESE >60 Normal >=60 [facility] Comment on above: Performed By: #### B MP #### [facility] [address] [address] [address] Salvador Yung Glucose [Mass/Vol] 82 mg/dL Normal 74-106 [facility] Comment on above: Performed By: #### B MP #### [facility] [address] [address] [address] Salvador Yung Potassium [Moles/Vol] 3.8 mmol/L Normal 3.5-5.1 [facility] Comment on above: Performed By: #### B MP #### [facility] [address] [address] [address] Salvador Yung Sodium [Moles/Vol] 138 mmol/L Normal 136-145 [facility] Comment on above: Performed By: #### B MP #### [facility] [address] [address] [address] Salvador Yung Urea nitrogen [Mass/Vol] 12.0 mg/dL Normal 7.0-18.0 [facility] Comment on above: Performed By: #### B MP #### [facility] [address] [address] [address] Salvador Yung Urea nitrogen/Creatinine [Mass ratio] 13.2 mg/mg Normal [facility] Comment on above: Performed By: #### B MP #### [facility] [address] [address] [address] Salvador Yung VC INJ SCL [facility] VEINSon 0 07-01-2022 VC INJ SCL [facility] Patient: LEELEE CEDILLO Exam Date: 07/01/2022 : 1950 Gender:F Ordering : DR ALFRED UMAÑA M.D. Admission #: [id number] Family : Order #: [id number] CLICK HERE TO VIEW EXAM RADIOLOGY REPORT [...] Lobato M.D. on 07/01/2022 at 15:22 Normal [facility] VC CONSULT FOLLOWUPon 2022 VC CONSULT FOLLOWUP Patient: ITZEL CEDILOL Exam Date: 06/19/2022 : 1950 Gender:F Ordering : DR ALFRED UMAÑA M.D. Admission #: [id number] Family : Order #: [id number] CLICK HERE TO VIEW EXAM RADIOLOGY REPORT [...] Umaña MD on 06/19/2022 at 14:17 Normal [facility] VC EXT VENOUS LT LIMITEDon 0 06-19-2022 VC EXT VENOUS LT LIMITED Patient: LEELEE CEDILLO Exam Date: 06/19/2022 : 1950 Gender:F Ordering : DR ALFRED UMAÑA M.D. Admission #: [id number] Family : Order #: [id number] CLICK HERE TO VIEW EXAM RADIOLOGY REPORT [...] Umaña MD on 06/19/2022 at 14:15 Normal [facility] VC INJ FOAM SCLERO W US MLTI on 06-13-2022 VC INJ FOAM SCLERO W US MLTI Patient: LEELEE CEDILLO Exam Date: 06/13/2022 : 1950 Gender:F Ordering : DR ALFRED UMAÑA M.D. Admission #: [id number] Family : Order #: [id number] CLICK HERE TO VIEW EXAM RADIOLOGY REPORT [...] duple (more content not included)... Normal [facility] VC CONSULT FOLLOWUPon 2022 VC CONSULT FOLLOWUP Patient: ITZEL CEDILLO Exam Date: 06/10/2022 : 1950 Gender:F Ordering : DR ALFRED UMAÑA M.D. Admission #: [id number] Family : Order #: [id number] CLICK HERE TO VIEW EXAM RADIOLOGY REPORT [...] Lobato M.D. on 06/10/2022 at 12:36 Normal [facility] VC EXT VENOUS RT LIMITEDon 0 06-10-2022 VC EXT VENOUS RT LIMITED Patient: LEELEE CEDILLO Exam Date: 06/10/2022 : 1950 Gender:F Ordering : DR ALFRED UMAÑA M.D. Admission #: [id number] Family : Order #: [id number] CLICK HERE TO VIEW EXAM RADIOLOGY REPORT [...] Lobato M.D. on 06/10/2022 at 12:33 Normal [facility] VC INJ FOAM SCLERO W US MLTI on 06-03-2022 VC INJ FOAM SCLERO W US MLTI Patient: LEELEE CEDILLO Exam Date: 06/03/2022 : 1950 Gender:F Ordering : DR ALFRED UMAÑA M.D. Admission #: [id number] Family : Order #: [id number] CLICK HERE TO VIEW EXAM RADIOLOGY REPORT PROCEDURE: VEIN CENTER INJECTION FOAM SCLEROSING SOLUTION WITH ULTRASOUND MULTIPLE VEINS COMPARISON: None. Pre-operative Diagnosis: CEAP class C6 venous insufficiency with pain, tenderness, edema and incompetent right small saphenous vein and solid waste manager vein, incompetent varicose veins, venous insufficiency right leg secondary to venous incompetence Post-operative Diagnosis: CEAP class C6 venous insufficiency with pain, tenderness, edema and incompetent right small saphenous vein and solid waste manager vein, incompetent varicose veins, venous insufficiency right [...] l (more content not included)... Normal [facility] VC CONSULT FOLLOWUPon 2022 VC CONSULT FOLLOWUP Patient: ITZEL CEDILLO Exam Date: 05/28/2022 : 1950 Gender:F Ordering : DR ALFRED UMAÑA M.D. Admission #: [id number] Family : Order #: [id number] CLICK HERE TO VIEW EXAM RADIOLOGY REPORT [...] Umaña MD on 05/28/2022 at 11:44 Normal [facility] VC EXT VENOUS RT LIMITEDon 0 05-28-2022 VC EXT VENOUS RT LIMITED Patient: LEELEE CEDILLO Exam Date: 05/28/2022 : 1950 Gender:F Ordering : DR ALFRED UMAÑA M.D. Admission #: [id number] Family : Order #: [id number] CLICK HERE TO VIEW EXAM RADIOLOGY REPORT [...] extends to distal lower leg. Thrombus in solid waste manager distal medial lower leg 2.8 mm from [...] MD on 05/28/2022 at 11:30 Normal [facility] CBC AUTO DIFFon 05-21-2022 BASO # 0.1 103/ul Normal 0.0-0.1 [facility] Comment on above: Performed By: #### C BC #### [facility] [address] [address] [address] Salvador Yung Basophils/100 WBC (Bld) 0.6 % Normal 0.2-2.0 [facility] Comment on above: Performed By: #### C BC #### [facility] [address] [place] [address] Dr. Salvador Yung EO # 0.1 103/ul Normal 0.0-0.7 [facility] Comment on above: Performed By: #### C BC #### [facility] [address] [place] [address] Dr. Salvador Yung Eosinophils/100 WBC (Bld) 0.6 % Critically low 0.9-7.0 [facility] Comment on above: Performed By: #### C BC #### [facility] [address] [place] [address] Dr. Salvador Yung Erythrocyte distribution width (RBC) [Ratio] 12.4 % Normal 11.0-15.0 [facility] Comment on above: Performed By: #### C BC #### [facility] [address] [place] [address] Dr. Salvador Yung Hematocrit (Bld) [Volume fraction] 43.1 % Normal 36.0-48.0 [facility] Comment on above: Performed By: #### C BC #### [facility] [address] [place] [address] Dr. Salvador Yung Hemoglobin (Bld) [Mass/Vol] 13.8 g/dL Normal 12.0-16.0 [facility] Comment on above: Performed By: #### C BC #### [facility] [address] [place] [address] Dr. Salvador Yung IG # 0.06 10e3/ul Critically high 0.00-0.03 [facility] Comment on above: Performed By: #### C BC #### [facility] [address] [place] [address] Dr. Salvador Yung IG % 0.7 % Critically high 0.0-0.5 [facility] Comment on above: Performed By: #### C BC #### [facility] [address] [place] [address] Dr. Salvador Yung LYMPH # 1.7 103/ul Normal 1.2-3.8 [facility] Comment on above: Performed By: #### C BC #### [facility] [address] [place] [address] Dr. Salvador Yung Lymphocytes/100 WBC (Bld) 20.2 % Critically low 20.5-60.0 [facility] Comment on above: Performed By: #### C BC #### [facility] [address] [place] [address] Dr. Salvador Yung MANUAL DIFF REQ NO Normal [facility] Comment on above: Performed By: #### C BC #### [facility] [address] [place] [address] Dr. Salvador Yung MCH (RBC) [Entitic mass] 30.1 pg Normal 26.7-34.0 [facility] Comment on above: Performed By: #### C BC #### [facility] [address] [place] [address] Dr. Salvador Yung MCHC (RBC) [Mass/Vol] 32.0 g/dL Normal 29.9-35.2 [facility] Comment on above: Performed By: #### C BC #### [facility] [address] [place] [address] Dr. Salvador Yung MCV (RBC) [Entitic vol] 93.9 fL Normal 81.0-99.0 [facility] Comment on above: Performed By: #### C BC #### [facility] [address] [place] [address] Dr. Salvador Yung MONO # 0.5 103/ul Normal 0.3-0.8 [facility] Comment on above: Performed By: #### C BC #### [facility] [address] [place] [address] Dr. Salvador Yung Monocytes/100 WBC (Bld) 6.1 % Normal 1.7-12.0 [facility] Comment on above: Performed By: #### C BC #### [facility] [address] [place] [address] Dr. Salvador Yung NEUT # 6.1 103/ul Normal 1.4-6.5 [facility] Comment on above: Performed By: #### C BC #### [facility] [address] [place] [address] Dr. Salvador Yung Neutrophils/100 WBC (Bld) 71.8 % Normal 43.0-75.0 [facility] Comment on above: Performed By: #### C BC #### [facility] [address] [place] [address] Dr. Salvador Yung Platelet mean volume (Bld) [Entitic vol] 8.2 fL Critically low 9.5-13.5 [facility] Comment on above: Performed By: #### C BC #### [facility] [address] [place] [address] Dr. Salvador Yung PLT 246 103/ul Normal 150-450 [facility] Comment on above: Performed By: #### C BC #### [facility] [address] [place] [address] Dr. Salvador Yung RBC 4.59 106/ul Normal 4.20-5.40 [facility] Comment on above: Performed By: #### C BC #### [facility] [address] [place] [address] Dr. Salvador Yung WBC 8.5 103/ul Normal 4.0-11.0 [facility] Comment on above: Performed By: #### C BC #### [facility] [address] [place] [address] Dr. Salvador Yung FREE T3on 05-21-2022 FREE T3 2.14 pg/mlL Critically low 2.18-3.98 [facility] Comment on above: Performed By: #### P OCGLUC #### [facility] [address] [address] [address] Salvador Yung GLYCOHEMOGLOBIN A1Con 2022 ADA RECOMMENDATION SEE BELOW Normal [facility] Comment on above: Result Comment: ADA RECOMMENDED LIMIT 4.0 - 6.0 ADA THERAPEUTIC TARGET < 7.0 ACTION SUGGESTED > 7.0 Performed By: #### P OCGLUC #### [facility] [address] [address] [address] Salvador Yung Glucose [Mass/Vol] 100 mg/dL Normal [facility] Comment on above: Performed By: #### P OCGLUC #### [facility] [address] [place] [address] Dr. Salvador Yung HbA1c (Bld) [Mass fraction] 5.1 % Normal 4.5-6.2 [facility] Comment on above: Performed By: #### P OCGLUC #### [facility] [address] [place] [address] Dr. Salvador Yung LIPID PROFILEon 05-21-2022 CHOL-HDL RATIO NORM SEE BELOW Normal [facility] Comment on above: Result Comment: 3.3 - 4.4 LOW RISK 4.4 - 7.1 AVERAGE RISK 7.1 - 11.0 MODERATE RISK >11.0 HIGH RISK Performed By: #### P OCGLUC #### [facility] [address] [address] [address] Salvador Yung Cholesterol [Mass/Vol] 164 mg/dL Normal <=200 [facility] Comment on above: Performed By: #### P OCGLUC #### [facility] [address] [address] [address] Salvador Yung Cholesterol in HDL [Mass/Vol] 61 mg/dL Critically high 40-60 [facility] Comment on above: Performed By: #### P OCGLUC #### [facility] [address] [address] [address] Salvador Yung Cholesterol in LDL [Mass/Vol] 90.2 mg/dL Normal [facility] Comment on above: Performed By: #### P OCGLUC #### [facility] [address] [address] [address] Salvador Yung Cholesterol.total/Cho lesterol in HDL [Mass ratio] 2.7 {ratio} Normal [facility] Comment on above: Performed By: #### P OCGLUC #### [facility] [address] [address] [address] Salvador Yung HDL NORMAL > or = 60 mg/dl - LO W CARDIOVASCULAR RISK <40 mg/dl - HIGH CARDIOVASCULAR RISK Normal [facility] Comment on above: Performed By: #### P OCGLUC #### [facility] [address] [address] [address] Salvador Yung LDL CALC NORMAL SEE BELOW Normal [facility] Comment on above: Result Comment: <100 mg/dl OPTIMAL 100 - 129 mg/dl NEAR OR ABOVE OPTIMAL 130 - 159 mg/dl BORDERLINE HIGH 160 - 189 mg/dl HIGH >190 mg/dl VERY HIGH Performed By: #### P OCGLUC #### [facility] [address] [address] [address] Salvador Yung Triglyceride [Mass/Vol] 64 mg/dL Normal <=150 [facility] Comment on above: Performed By: #### P OCGLUC #### [facility] [address] [address] [address] Salvador Yung VLDL CALC 12.8 mg/dL Normal [facility] Comment on above: Performed By: #### P OCGLUC #### [facility] [address] [address] [address] Salvador Yung PROF 14(COMP METB)on 023 Albumin [Mass/Vol] 3.2 g/dL Critically low 3.4-5.0 [facility] Comment on above: Performed By: #### P OCGLUC #### [facility] [address] [place] [address] Dr. Salvador Yung Albumin/Globulin [Mass ratio] 0.7 {ratio} Normal [facility] Comment on above: Performed By: #### P OCGLUC #### [facility] [address] [address] [address] Salvador Yung ALP [Catalytic activity/Vol] 68 U/L Normal 46-116 [facility] Comment on above: Performed By: #### P OCGLUC #### [facility] [address] [place] [address] Dr. Salvador Yung ALT [Catalytic activity/Vol] 25 U/L Normal 14-59 [facility] Comment on above: Performed By: #### P OCGLUC #### [facility] [address] [address] [address] Salvador Yung Anion gap [Moles/Vol] 11.8 mmol/L Normal [facility] Comment on above: Performed By: #### P OCGLUC #### [facility] [address] [place] [address] Dr. Salvador Yung AST [Catalytic activity/Vol] 20 U/L Normal 15-37 [facility] Comment on above: Performed By: #### P OCGLUC #### [facility] [address] [address] [address] Salvador Yung Bilirubin [Mass/Vol] 0.5 mg/dL Normal 0.2-1.0 [facility] Comment on above: Performed By: #### P OCGLUC #### [facility] [address] [place] [address] Dr. Salvador Yung Calcium [Mass/Vol] 8.9 mg/dL Normal 8.5-10.1 [facility] Comment on above: Performed By: #### P OCGLUC #### [facility] [address] [place] [address] Dr. Salvador Yung Chloride [Moles/Vol] 105 mmol/L Normal 98-107 [facility] Comment on above: Performed By: #### P OCGLUC #### [facility] [address] [place] [address] Dr. Salvador Yung CO2 [Moles/Vol] 29.9 mmol/L Normal 21.0-32.0 [facility] Comment on above: Performed By: #### P OCGLUC #### [facility] [address] [place] [address] Dr. Salvador Yung Creatinine [Mass/Vol] 0.74 mg/dL Normal 0.55-1.02 [facility] Comment on above: Performed By: #### P OCGLUC #### [facility] [address] [address] [address] Salvador Yung EGFR-AF VIET[place]ESE >60 Normal >=60 [facility] Comment on above: Performed By: #### P OCGLUC #### [facility] [address] [address] [address] Salvador Yung EGFR-NON AF VIETNAMESE >60 Normal >=60 [facility] Comment on above: Performed By: #### P OCGLUC #### [facility] [address] [address] [address] Salvador Yung Globulin (S) [Mass/Vol] 4.3 g/dL Normal [facility] Comment on above: Performed By: #### P OCGLUC #### [facility] [address] [place] [address] Dr. Salvador Yung Glucose [Mass/Vol] 88 mg/dL Normal 74-106 [facility] Comment on above: Performed By: #### P OCGLUC #### [facility] [address] [address] [address] Salvador Yung Potassium [Moles/Vol] 3.7 mmol/L Normal 3.5-5.1 [facility] Comment on above: Performed By: #### P OCGLUC #### [facility] [address] [address] [address] Salvador Yung Protein [Mass/Vol] 7.5 g/dL Normal 6.4-8.2 [facility] Comment on above: Performed By: #### P OCGLUC #### [facility] [address] [address] [address] Salvador Yung Sodium [Moles/Vol] 143 mmol/L Normal 136-145 [facility] Comment on above: Performed By: #### P OCGLUC #### [facility] [address] [address] [address] Salvador Yung Urea nitrogen [Mass/Vol] 11.0 mg/dL Normal 7.0-18.0 [facility] Comment on above: Performed By: #### P OCGLUC #### [facility] [address] [address] [address] Salvador Yung Urea nitrogen/Creatinine [Mass ratio] 14.9 mg/mg Normal [facility] Comment on above: Performed By: #### P OCGLUC #### [facility] [address] [place] [address] Dr. Salvador Yung T4on 05-21-2022 T4 [Mass/Vol] 11.60 ug/dL Normal 4.80-13.90 [facility] Comment on above: Performed By: #### P OCGLUC #### [facility] [address] [place] [address] Dr. Salvador Yung TSHon 05-21-2022 TSH 0.165 uIU/mL Critically low 0.358-3.740 [facility] Comment on above: Performed By: #### P OCGLUC #### [facility] [address] [place] [address] Dr. Salvador Yung VC ENDOVENOUS ABL 1ST V RTon 05-21-2022 VC ENDOVENOUS ABL 1ST V RT Patient: LEELEE CEDILLO Exam Date: 05/21/2022 : 1950 Gender:F Ordering : DR ALFRED UMAÑA M.D. Admission #: [id number] Family : Order #: [id number] CLICK HERE TO VIEW EXAM RADIOLOGY REPORT [...] MD on 05/21/2022 at 13:51 Normal [facility] VITAMIN D 25 OHon 05-21-2022 VIT D 25-OH 25.1 ng/mL Normal [facility] Comment on above: Performed By: #### V ITAD #### [facility] [address] [place], [place] [address] Dr. Salvador Yung VIT D RANGES SEE BELOW Normal [facility] Comment on above: Result Comment: <20 ng/mL Vit D deficient 20 - <30 ng/mL Vit D insufficient 30 - 100 ng/mL Vit D sufficient >100 ng/mL Potential Toxicity Performed By: #### V ITAD #### [facility] [address] [address] [address] Salvador Yung XR HIP LT 2 [...] MARI LORENZO Date: 2022-05-21 16:26 Normal [facility] VC COMP CONSULTATIONon 05-01 VC COMP CONSULTATION Patient: REAGAN CEDILLO Exam Date: 05/01/2022 : 1950 Gender:F Ordering : DR. ADELE FLEMING D.P.MKimberlee Admission #: [id number] Family : Order #: [id number] CLICK HERE [...] small saphenous vein, right lower extremity incompetent solid waste manager veins, and bilateral lower extremity incompetent branch [...] arterial disease 5. CEAP: C6, EC, AP, SD PLAN: 1. Continued use of compression stockings 2. Elevated legs and increased physical activity symptomatic relief 3. Endovenous laser ablation of right small saphenous vein and solid waste manager vein. 4. Microfoam chemical ablation of dilated, [...] Lobato M.D. on 05/01/2022 at 15:27 Normal [facility] VC VENOUS REFLUX SAMI LMTon 0 05-01-2022 VC VENOUS REFLUX SAMI LMT Patient: LEELEE CEDILLO Exam Date: 05/01/2022 : 1950 Gender:F Ordering : DR. ADELE FLEMING D.P.M. Admission #: [id number] Family : DR ALFRED UMAÑA M.D. Order #: [id number] CLICK HERE TO VIEW EXAM RADIOLOGY REPORT [...] chronic thrombus visualized Compressibility: Normal Flow: Normal Surgical Tech: Dist/med calf 2.6mm with 0s reflux. Mid/med calf 3.5mm with 0s reflux. Tech Note: GSV has been previously stripped. Patent varicose vein mid/med calf 2.3mm with 0.5s reflux. Patent varicose vein prox/med calf 3.4mm with 1.2s reflux. Patent varicose vein dist/med thigh 5.4mm with 0.8s reflux. CONCLUSION: 1. Dilated, incompetent right small saphenous vein. 2. 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 3. Consultation for endovenous laser ablation is recommended. Dictated by: Julio Lobato M.D. on 05/01/2022 at 14:06 Approved by: Julio Lobato M.D. on 05/01/2022 at 14:28 Normal [facility] Coding Summary.on 03-11-2022 Coding Summary. Normal [facility] ED Traumaon 03-09-2022 ED Trauma [id number]#1. 00CD:127 Normal [facility] Consent for Procedure/Surger yon 03-08-2022 Consent for Procedure/Surgery [id number]#1. 00CD:127 Normal [facility] Consent for Treatmenton 02-18 Consent for Treatment [id number] 0CD:127 Normal [facility] Discharge Instructionson Discharge Instructions [id number]#1. 00CD:127 Normal [facility] ED Clinical Summaryon 2021 ED Clinical Summary Normal [facility] ED Note-Physicianon 03-08-20 ED Note-Physician Normal [facility] Comment on above: Result Comment: Elec tronically Signed By: Wm Nagy DO.br\Date and Time Signed: 03/08/22 21:11 EST ED Patient Education Noteon 03-08-2022 ED Patient Education Note Normal [facility] ED Patient Summaryon 022 ED Patient Summary Normal [facility] EMS Documentationon 03-08-20 EMS Documentation Normal [facility] EMS Documentation Normal [facility] Monitor Recordon 03-08-2022 Monitor Record [id number]#1. 00CD:127 Normal [facility] Monitor Record [id number]#1. 00CD:127 Normal [facility] Pre-Arrival Noteon Pre-Arrival Note Normal [facility] Respiratory Therapy Noteson 03-08-2022 Respiratory Therapy Notes conscious sedation on Eaton, Leelee. Used co2 monitor and one liter of 02. patient maintained 38 co2 and 99 O2. Last approx 40 min. Normal [facility] XR Hip 2-3 Views Left + Pelv yasir 03-08-2022 XR Hip 2-3 Views Left + Pelvis Normal [facility] XR Hip 2-3 Views Left + Pelvis Normal [facility] BLEEDING TIMEon 03-06-2022 BLEEDING TIME 10.5 min Critically high 1.0-8.0 [facility] Comment on above: Performed By: #### B LTM #### [facility] [address] [place] [address] Dr. Salvador Yung CBC AUTO DIFFon 03-06-2022 BASO # 0.1 103/ul Normal 0.0-0.1 [facility] Comment on above: Performed By: #### C BC #### [facility] [address] [address] [address] Salvador Yung Basophils/100 WBC (Bld) 0.7 % Normal 0.2-2.0 [facility] Comment on above: Performed By: #### C BC #### [facility] [address] [address] [address] Salvador Yung EO # 0.1 103/ul Normal 0.0-0.7 [facility] Comment on above: Performed By: #### C BC #### [facility] [address] [address] [address] Salvador Yung Eosinophils/100 WBC (Bld) 0.7 % Critically low 0.9-7.0 [facility] Comment on above: Performed By: #### C BC #### [facility] [address] [place] [address] Dr. Salvador Yung Erythrocyte distribution width (RBC) [Ratio] 12.9 % Normal 11.0-15.0 [facility] Comment on above: Performed By: #### C BC #### [facility] [address] [place] [address] Dr. Salvador Yung Hematocrit (Bld) [Volume fraction] 41.3 % Normal 36.0-48.0 [facility] Comment on above: Performed By: #### C BC #### [facility] [address] [place] [address] Dr. Salvador Yung Hemoglobin (Bld) [Mass/Vol] 13.7 g/dL Normal 12.0-16.0 [facility] Comment on above: Performed By: #### C BC #### [facility] [address] [place] [address] Dr. Salvador Yung IG # 0.05 10e3/ul Critically high 0.00-0.03 [facility] Comment on above: Performed By: #### C BC #### [facility] [address] [place] [address] Dr. Salvador Yung IG % 0.7 % Critically high 0.0-0.5 [facility] Comment on above: Performed By: #### C BC #### [facility] [address] [place] [address] Dr. Salvador Yung LYMPH # 1.4 103/ul Normal 1.2-3.8 [facility] Comment on above: Performed By: #### C BC #### [facility] [address] [place] [address] Dr. Salvador Yung Lymphocytes/100 WBC (Bld) 18.9 % Critically low 20.5-60.0 [facility] Comment on above: Performed By: #### C BC #### [facility] [address] [place] [address] Dr. Salvador Yung MANUAL DIFF REQ NO Normal [facility] Comment on above: Performed By: #### C BC #### [facility] [address] [place] [address] Dr. Salvador Yung MCH (RBC) [Entitic mass] 30.3 pg Normal 26.7-34.0 [facility] Comment on above: Performed By: #### C BC #### [facility] [address] [place] [address] Dr. Salvador Yung MCHC (RBC) [Mass/Vol] 33.2 g/dL Normal 29.9-35.2 [facility] Comment on above: Performed By: #### C BC #### [facility] [address] [place] [address] Dr. Salvador Yung MCV (RBC) [Entitic vol] 91.4 fL Normal 81.0-99.0 [facility] Comment on above: Performed By: #### C BC #### [facility] [address] [place] [address] Dr. Salvador Yung MONO # 0.7 103/ul Normal 0.3-0.8 [facility] Comment on above: Performed By: #### C BC #### [facility] [address] [place] [address] Dr. Salvador Yung Monocytes/100 WBC (Bld) 9.9 % Normal 1.7-12.0 [facility] Comment on above: Performed By: #### C BC #### [facility] [address] [address] [address] Salvador Yung NEUT # 5.2 103/ul Normal 1.4-6.5 [facility] Comment on above: Performed By: #### C BC #### [facility] [address] [address] [address] Salvador Yung Neutrophils/100 WBC (Bld) 69.1 % Normal 43.0-75.0 [facility] Comment on above: Performed By: #### C BC #### [facility] [address] [place] [address] Dr. Salvador Yung Platelet mean volume (Bld) [Entitic vol] 7.9 fL Critically low 9.5-13.5 [facility] Comment on above: Performed By: #### C BC #### [facility] [address] [place] [address] Dr. Salvador Yung PLT 223 103/ul Normal 150-450 [facility] Comment on above: Performed By: #### C BC #### [facility] [address] [place] [address] Dr. Salvador Yung RBC 4.52 106/ul Normal 4.20-5.40 [facility] Comment on above: Performed By: #### C BC #### [facility] [address] [place] [address] Dr. Salvador Yung WBC 7.5 103/ul Normal 4.0-11.0 [facility] Comment on above: Performed By: #### C BC #### [facility] [address] [place] [address] Dr. Salvador Yung IRONon 03-06-2022 Iron [Mass/Vol] 83.0 ug/dL Normal 50.0-170.0 [facility] Comment on above: Performed By: #### I ESTEFANY #### [facility] [address] [place] [address] Dr. Salvador Yung PROTIMEon 03-06-2022 INR Coag (PPP) [Relative time] 0.95 {INR} Normal [facility] Comment on above: Performed By: #### P TT, PT #### [facility] [address] [address] [address] Salvador Yung INR GUIDELINES SEE BELOW Normal [facility] Comment on above: Result Comment: YOJANA RED INR: 2.0 - 3.0 CONDITIONS NOT LISTED BELOW 2.5 - 3.5 FOR PROSTHETIC HEART VALVE REPLACEMENT 2.5 - 3.5 RECURRENT THROMBOSIS Performed By: #### P TT, PT #### [facility] [address] [address] [address] Salvador Yung PT Coag (PPP) [Time] 10.3 s Normal 9.0-11.6 [facility] Comment on above: Performed By: #### P TT, PT #### [facility] [address] [address] [address] Salvador Yung PTTon 03-06-2022 aPTT Coag (Bld) [Time] 22.1 s Critically low 22.3-36.2 [facility] Comment on above: Performed By: #### P TT, PT #### [facility] [address] [address] [address] Salvador Yung SCREENING MAMMOGRAM W/DANIEL, BILATERAL*on [...] IS VERY IMPORTANT TO YOUR HEALTH. CURRENT [employer] GUIDELINES RECOMMENDS ANNUAL MAMMOGRAPHY BEGINNING AT AGE 41. THIS FACILITY USUALLY USES A REMINDER SYSTEM TO ENSURE ALL POSITIONS RECEIVED REMINDER NOTIFICATIONS AT THE TIME BASED ON THE RECOMMENDATIONS OF THIS EXAM. Report reported and signed by Julio Martines on 02/28/2022 1602 Normal [facility] Specialist Covid-19 PCR (CVDTBH)on 12-19 SARS-CoV-2 (COVID-19) RNA VIVIANA+probe Ql (Unsp spec) Not detected Normal NOT DETECTED [facility] Comment on above: Result Comment: This test is not yet approved or cleared by the [place] FDA. When there are no FDA-approved or cleared tests available, and other criteria are met, FDA can make tests available under an emergency access mechanism called an Emergency Use Authorization (EUA). The EUA for this test is supported by the [employer] of Health and Human Service's (HHS's) declaration [...] SARS-CoV-2. Performed By: #### P OCGLUC #### [facility] [address] [place] [address] Dr. Salvador Yung MRI [facility] CONon 12-10- 22 MRI [facility] CON HISTORY: Chronic low back pain with left leg pain. Prior low back surgery. Lumbar disc disease. MRI [facility] CON: 12/09/2021 10:11 AM EDT COMPARISON: MRI [...] SARA LAUREN Date: 2021-12-10 12:11 Normal [facility] COVID-19 Positive/Negativeon 05-04-2020 COVID-19 Positive/Negative Negative Negative [facility] Comment on above: Testing for SARS-CoV -2 by RT-PCRThis test was developed and its performance characteristics determined by [employer] and validated at the [facility]. This test has not been FDA [...] Otheron 05-04-2020 Coronavirus 2019 PCR Interp N/A [facility] Automated basophil %on 04-24 Basophils/100 WBC (Bld) 0.6 % [facility] Automated basophil counton 0 04-24-2020 Basophils (Bld) [#/Vol] 0.0 10*3/uL 0.0-0.2 [facility] Automated blood lymphocyte c ount (number/volume)on 04-24-2020 Lymphocytes (Bld) [#/Vol] 1.0 10*3/uL 1.00-4.8 [facility] Automated blood lymphocyte c ount as percentage of total leukocyteson 04-24-2020 Lymphocytes/100 WBC (Bld) 17.0 % [facility] Automated blood monocyte cou nton 04-24-2020 Monocytes (Bld) [#/Vol] 0.3 10*3/uL 0.0-0.8 [facility] Automated blood platelet cou nt (count/volume)on 04-24-2020 Platelets (Bld) [#/Vol] 224 10*3/uL 150-450 [facility] Automated blood platelet vikki n volume measurementon 04-24-2020 Platelet mean volume (Bld) [Entitic vol] 7.2 fL 6.3-10.7 [facility] Automated eosinophil %on Eosinophils/100 WBC (Bld) 3.5 % [facility] Automated eosinophil counton 04-24-2020 Eosinophils (Bld) [#/Vol] 0.2 10*3/uL 0.0-0.45 [facility] Automated erythrocyte distri bution width ratioon 04-24-2020 Erythrocyte distribution width (RBC) [Ratio] 13.0 % 11.9-15.3 [facility] Automated erythrocyte mean c orpuscular hemoglobin (mass per erythrocyte)on 04-24-2020 MCH (RBC) [Entitic mass] 27.7 pg 24.7-34.3 [facility] Automated erythrocyte mean c orpuscular hemoglobin concentration measurement (mass/volon 04-24-2020 MCHC (RBC) [Mass/Vol] 33.2 g/dL 32.0-35.0 [facility] Automated erythrocyte mean c orpuscular volumeon 04-24-2020 MCV (RBC) [Entitic vol] 83.3 fL 80-100 [facility] Automated erythrocytes count in urine sediment (number/area)on 04-24-2020 RBC Auto (Urine sed) [#/Area] None seen [HPF] [facility] Automated leukocytes count i n urine sediment (number/area)on 04-24-2020 WBC Auto (Urine sed) [#/Area] 0-1 [HPF] [facility] Automated monocyte %on 04-24 Monocytes/100 WBC (Bld) 6.1 % [facility] Automated neutrophil %on Neutrophils/100 WBC (Bld) 72.8 % [facility] Automated urine color determ inationon 04-24-2020 Color (U) Yellow Yellow [facility] Blood erythrocytes automated count (number/volume)on 04-24-2020 RBC (Bld) [#/Vol] 4.50 10*6/uL 3.60-5.00 [facility] Blood hemoglobin measurement (mass/volume)on 04-24-2020 Hemoglobin (Bld) [Mass/Vol] 12.5 g/dL 11.8-15.4 [facility] Blood leukocytes automated c ount (number/volume)on 04-24-2020 WBC (Bld) [#/Vol] 5.7 10*3/uL 3.8-11.6 [facility] Blood neutrophil count by au tomated method (number/volume)on 04-24-2020 Neutrophils (Bld) [#/Vol] 4.2 10*3/uL 1.8-7.7 [facility] Estimated glomerular filtrat ion rate (GFR) non- Americanon 04-24-2020 GFR/1.73 sq M predicted among non-blacks MDRD (S/P/Bld) [Vol rate/Area] mL/min/{1.73_m2} [facility] Hematocrit [Volume Fraction] of Blood by Automated counton 04-24-2020 Hematocrit (Bld) [Volume fraction] 37.5 % 34.0-46.4 [facility] Otheron 04-24-2020 GFR/1.73 sq M.predicted MDRD (S/P/Bld) [Vol rate/Area] mL/min/{1.73_m2} [facility] Comment on above: GFR estimated refere nce range: According to KDOQI guidelines, <60 ml/min/1.73m2 is sufficient to diagnose a patient with chronic kidney disease. Nucleated RBC/100 WBC (Bld) [Ratio] 0.1 % 0-0.5 [facility] Creatinine Clearance (Chem N/A [facility] Serum or plasma calcium kelly urement (mass/volume)on 04-24-2020 Calcium [Mass/Vol] 9.3 mg/dL 8.2-10.2 [facility] Serum or plasma chloride vikki surement (moles/volume)on 04-24-2020 Chloride [Moles/Vol] 101 mmol/L 95-114 [facility] Serum or plasma creatinine m easurement with calculation of estimated glomerular filtron 04-24-2020 Creatinine [Mass/Vol] 0.88 mg/dL 0.44-1.03 [facility] Serum or plasma glucose kelly urement (mass/volume)on 04-24-2020 Glucose [Mass/Vol] 116 mg/dL 70-100 [facility] Comment on above: ADA recommended refe rence rangeRandom Glucose Reference Range is dependent on time and content of last meal. Glucose of more than 200 mg/dL in a nonstressed, ambulatory subject supports the diagnosis of Diabetes Mellitus. Serum or plasma potassium me asurement (moles/volume)on 04-24-2020 Potassium [Moles/Vol] 3.8 mmol/L 3.5-5.1 [facility] Serum or plasma sodium measu rement (moles/volume)on 04-24-2020 Sodium [Moles/Vol] 136 mmol/L 136-146 [facility] Serum or plasma total carbon dioxide measurement (moles/volume)on 04-24-2020 CO2 [Moles/Vol] 23.1 mmol/L 22.0-30.0 [facility] Serum or plasma urea nitroge n measurement (mass/volume)on 04-24-2020 Urea nitrogen [Mass/Vol] 10 mg/dL 9-23 [facility] Specific gravity of Urine by Automated test stripon 04-24-2020 Specific gravity (U) [Rel density] 1.007 1.001-1.030 [facility] Squamous epithelial cells de tection in urine sediment by light microscopyon 04-24-2020 Epithelial cells.squamous LM Ql (Urine sed) None seen [HPF] [facility] Urinalysison 04-24-2020 Hyaline casts LM Ql (Urine sed) None seen [LPF] [facility] Urine bacteria detection by automated methodon 04-24-2020 Bacteria Auto Ql (U) None seen None Seen [facility] Urine clarity by refractomet ry automatedon 04-24-2020 Clarity Refractometry automated (U) Clear Clear [facility] Urine glucose measurement by automated test strip (mass/volume)on 04-24-2020 Glucose Auto test strip (U) [Mass/Vol] Normal mg/dL Normal [facility] Urine hemoglobin detection b y automated test stripon 04-24-2020 Hemoglobin Auto test strip Ql (U) Negative Negative [facility] Urine ketones measurement by automated test strip (mass/volume)on 04-24-2020 Ketones (U) [Mass/Vol] Negative Negative [facility] Urine leukocyte esterase det ection by automated test stripon 04-24-2020 Leukocyte esterase Auto test strip Ql (U) 1+ Negative [facility] Urine nitrite detection by t est stripon 04-24-2020 Nitrite Ql (U) Negative Negative [facility] Urine pH measurement by auto mated test stripon 04-24-2020 pH (U) 5.5 [pH] 5.0-9.0 [facility] Urine protein measurement by automated test strip (mass/volume)on 04-24-2020 Protein (U) [Mass/Vol] Negative Negative [facility] Urine total bilirubin detect ion by test stripon 04-24-2020 Bilirubin Ql (U) Negative Negative [facility] Urine urobilinogen measureme nt by automated test strip (mass/volume)on 04-24-2020 Urobilinogen (U) [Mass/Vol] Normal mg/dL Normal [facility] CT L-SPINE WO CONTRASTon CT L-SPINE WO CONTRAST Patient Name: LEELEE CEDILLO STUDY: CT L-SPINE WO CONTRAST;; 10/13/2018 12:05 pm INDICATION: Low back pain LUMBAGO. COMPARISON: None. ACCESSION NUMBER(S): [id number] ORDERING CLINICIAN: HAMLET GILMAN TECHNIQUE: Axial sections [...] combination with facet joint arthropathy noted causing [id number] left neural foramina narrowing. Transpedicular screws of [...] left lateral recess, left neural foramina and [id number] right neural foramina narrowing. IMPRESSION: Postoperative and [...] Electronically signed by: PATRICIA MURRAY MD Normal [facility] SPINE, ENTIRE THORACIC/LUMBA R, INCLUDE SKULL, CERVICAL [...] pm INDICATION: LUMBAGO. COMPARISON: None ACCESSION NUMBER(S): [id number]; [id number] ORDERING CLINICIAN: HAMLET GILMAN FINDINGS: Long radiograph [...] Electronically signed by: ADELE BA MD Normal [facility] SPINE, LUMBOSACRAL; CMPLT(BE NDING)on 10-13-2018 SPINE, LUMBOSACRAL; CMPLT(BENDING) Patient Name: LEELEE CEDILLO STUDY: SPINE, ENTIRE THORACIC/LUMBAR, INCLUDE SKULL, CERVICAL ANSD SACRAL SPINE WHEN PERFORMED 2 OR 3 VIEW; SPINE, LUMBOSACRAL CMPLT(BENDING); 10/13/2018 12:05 pm INDICATION: LUMBAGO. COMPARISON: None ACCESSION NUMBER(S): [id number]; [id number] ORDERING CLINICIAN: HAMLET GILMAN FINDINGS: Long radiograph [...] acuity. Electronically signed by: ADELE BA MD [facility] Vital Signs Date Time Vital Sign Value Performing Clinician Facility 08-07-2023 11:44-0400 Diastolic blood pressure 86 mm[Hg] MD Sara Vick Work Phone: [facility] 08-07-2023 11:44-0400 Heart rate 67 /min MD Sara Vick Work Phone: [facility] 08-07-2023 11:44-0400 SaO2% (BldA) [Mass fraction] 99 % MD Sara Vick Work Phone: [facility] 08-07-2023 11:44-0400 Systolic blood pressure 132 mm[Hg] MD Sara iVck Work Phone: [facility] 07-01-2023 10:26-0400 Body height 172.72 cm MD Sara Vick Work Phone: [facility] 07-01-2023 10:26-0400 Body mass index (BMI) [Ratio] 29.5 kg/m2 MD Sara Vick Work Phone: [facility] 07-01-2023 [id number]:[id number] Body temperature 97.2 [degF] MD Sara Vick Work Phone: [facility] 07-01-2023 10:26-040 Body weight 87.99 kg MD Sara Vick Work Phone: [facility] 07-01-2023 10:26-0400 Diastolic blood pressure 78 mm[Hg] MD Sara Vick Work Phone: [facility] 07-01-2023 10:26-0400 Heart rate 78 /min MD Sara Vick Work Phone: [facility] 07-01-2023 10:26-0400 SaO2% (BldA) [Mass fraction] 98 % MD Sara Vick Work Phone: [facility] 07-01-2023 10:26-0400 Systolic blood pressure 120 mm[Hg] MD Sara Vick Work Phone: [facility] 06-30-2023 14:39-0400 Diastolic blood pressure 70 mm[Hg] MD Sara Vick Work Phone: [facility] 06-30-2023 14:39-0400 Heart rate 75 /min MD Sara Vick Work Phone: [facility] 06-30-2023 14:39-0400 SaO2% (BldA) [Mass fraction] 99 % MD Sara Vick Work Phone: [facility] 06-30-2023 14:39-0400 Systolic blood pressure 110 mm[Hg] MD Sara Vick Work Phone: [facility] 06-24-2023 13:13-0500 Body height 172.7 cm Ghanshyam Lombardi MD Work Phone: [facility] 06-24-2023 13:13-0500 Body weight 87.4 kg Ghanshyam Lombardi MD Work Phone: [facility] 06-24-2023 13:13-0500 Diastolic blood pressure 56 mm[Hg] Ghanshyam Lombardi MD Work Phone: [facility] 06-24-2023 13:13-0500 Heart rate 93 /min Ghanshyam Lombardi MD Work Phone: [facility] 06-24-2023 13:13-0500 Respiratory rate 18 /min Ghanshyam Lombardi MD Work Phone: [facility] 06-24-2023 13:13-0500 SaO2% (BldA) [Mass fraction] 97 % Ghanshyam Lombardi MD Work Phone: [facility] 06-24-2023 13:13-0500 Systolic blood pressure 115 mm[Hg] Ghanshyam Lombardi MD Work Phone: [facility] 05-15-2023 09:00-0500 Body weight 90.18 kg Larry Brown Other [facility] [employer] Other 05-15-2023 09:00-0500 Body weight 90.17 kg MD Sara Vick Work Phone: [facility] 05-15-2023 09:00-0500 Diastolic blood pressure 86 mm[Hg] Larry Brown Other [facility] 05-15-2023 09:00-0500 SaO2% (BldA) [Mass fraction] 99 % Larryrandy Brown Other [facility] [employer] Other 05-15-2023 09:00-0500 Systolic blood pressure 148 mm[Hg] Larry Brown Other [facility] 05-13-2023 11:15-0500 Body height 175.26 cm Kiran Kessler Other [facility] 05-13-2023 11:15-0500 Body mass index (BMI) [Ratio] 29.24 kg/m2 Kiran Kessler Other [facility] [employer] Other 05-13-2023 11:15-0500 Body temperature 96.9 [degF] Kiran Kessler Other [facility] [employer] Other 05-13-2023 11:15-0500 Body weight 89.81 kg Kiran Kessler Other [facility] 05-13-2023 11:15-0500 Diastolic blood pressure 80 mm[Hg] Kiran Kessler Other [facility] 05-13-2023 11:15-0500 SaO2% (BldA) [Mass fraction] 99 % Kiran Kessler Other [facility] [employer] Other 05-13-2023 11:15-0500 Systolic blood pressure 140 mm[Hg] Kiran Kessler Other [facility] 04-03-2023 10:15-0500 Body height 175.26 cm Larry Stephanie Other [facility] [employer] Other 04-03-2023 10:15-0500 Diastolic blood pressure 74 mm[Hg] Larryrandy Brown Other [facility] [employer] Other 04-03-2023 10:15-0500 SaO2% (BldA) [Mass fraction] 99 % Larry Stephanie Other [facility] [employer] Other 04-03-2023 10:15-0500 Systolic blood pressure 118 mm[Hg] Larryrandy Brown Other [facility] [employer] Other 03-25-2023 11:05-0500 Diastolic blood pressure 75 mm[Hg] MD Sara Vick Work Phone: [facility] 03-25-2023 11:05-0500 Heart rate 72 /min MD Sara Vick Work Phone: [facility] 03-25-2023 11:05-0500 Respiratory rate 18 /min MD Sara Vick Work Phone: [facility] 03-25-2023 11:05-0500 SaO2% (BldA) [Mass fraction] 97 % MD Sara Vick Work Phone: [facility] 03-25-2023 11:05-0500 Systolic blood pressure 146 mm[Hg] MD Sara Vick Work Phone: [facility] 03-25-2023 10:27-0500 Inhaled oxygen flow rate 3 L/min MD Sara Vick Work Phone: [facility] 03-25-2023 10:14-0500 Body height 173.99 cm MD Sara Vick Work Phone: [facility] 03-25-2023 10:14-0500 Body weight 88.45 kg MD Sara Vick Work Phone: [facility] 01-27-2023 14:30-0400 Body height 175.26 cm Dominique Shane Other [employer] Other 01-27-2023 14:30-0400 Diastolic blood pressure 70 mm[Hg] Dominique Shane Other [employer] Other 01-27-2023 14:30-0400 SaO2% (BldA) [Mass fraction] 98 % Dominique Shane Other [employer] Other 01-27-2023 14:30-0400 Systolic blood pressure 118 mm[Hg] Dominique Shane Other [employer] Other 01-09-2023 10:15-0400 Body height 175.26 cm Larry Brown Other [employer] Other 01-09-2023 10:15-0400 Body mass index (BMI) [Ratio] 29.56 kg/m2 Larry Brown Other [employer] Other 01-09-2023 10:15-0400 Body weight 90.81 kg Larry Brown Other [employer] Other 01-09-2023 10:15-0400 Diastolic blood pressure 78 mm[Hg] Larry Brown Other [employer] Other 01-09-2023 10:15-0400 SaO2% (BldA) [Mass fraction] 98 % Larry Brown Other [employer] Other 01-09-2023 10:15-0400 Systolic blood pressure 130 mm[Hg] Larry Brown Other [employer] Other 12-12-2022 09:30-0400 Body height 175.26 cm Larry Brown Other [employer] Other 12-12-2022 09:30-0400 Body mass index (BMI) [Ratio] 29.77 kg/m2 Larry Brown Other [employer] Other 12-12-2022 09:30-0400 Body weight 91.45 kg Larry Brown Other [employer] Other 12-12-2022 09:30-0400 Diastolic blood pressure 74 mm[Hg] Larry Brown Other [employer] Other 12-12-2022 09:30-0400 SaO2% (BldA) [Mass fraction] 99 % Larry Brown Other [employer] Other 12-12-2022 09:30-0400 Systolic blood pressure 122 mm[Hg] Larry Brown Other [employer] Other 09-19-2022 12:00-0400 Body height 175.26 cm Larry Brown Other [employer] Other 09-19-2022 12:00-0400 Body mass index (BMI) [Ratio] 30.8 kg/m2 Larry Brown Other [employer] Other 09-19-2022 12:00-0400 Body weight 94.62 kg Larry Brown Other [employer] Other 09-19-2022 12:00-0400 SaO2% (BldA) [Mass fraction] 95 % Larry Brown Other [employer] Other 09-18-2022 10:40-0400 Body height 172.7 cm Perfecto Burch MD Work Phone: [facility] 09-18-2022 10:40-0400 Body mass index (BMI) [Ratio] 31.26 kg/m2 Perfecto Burch MD Work Phone: [facility] 09-18-2022 10:40-0400 Body temperature 96.4 [degF] Perfecto Burch MD Work Phone: [facility] 09-18-2022 10:40-0400 Body weight 93.26 kg Perfecto Burch MD Work Phone: [facility] 07-27-2022 15:38-0400 Hourly Rounding [facility] 07-27-2022 15:38-0400 Promise to Return Francisco [facility] 07-27-2022 14:38-0400 Hourly [address] [facility] 07-27-2022 14:38-0400 Promise to Return [facility] 07-27-2022 13:38-0400 Hourly Rounding [facility] 07-27-2022 13:38-0400 Promise to Return [facility] 07-27-2022 12:08-0400 Heart rate 106 /min [facility] 07-27-2022 12:08-0400 SaO2% (BldA) [Mass fraction] 100 % [facility] 07-27-2022 12:07-0400 Diastolic blood pressure 79 mm[Hg] [facility] 07-27-2022 12:07-0400 Mean blood pressure 103 mm[Hg] [facility] 07-27-2022 12:07-0400 Systolic blood pressure 151 mm[Hg] [facility] 07-27-2022 12:06-0400 Body temperature 97.16 [degF] [facility] 07-27-2022 07:46-0400 Heart rate 82 /min [facility] 07-27-2022 07:46-0400 SaO2% (BldA) [Mass fraction] 97 % [facility] 07-27-2022 07:46-0400 Diastolic blood pressure 81 mm[Hg] [facility] 07-27-2022 07:46-0400 Mean blood pressure 116 mm[Hg] [facility] 07-27-2022 07:46-0400 Systolic blood pressure 186 mm[Hg] [facility] 07-27-2022 07:45-0400 Body temperature 97.52 [degF] [facility] 07-27-2022 01:46-0400 Heart rate 89 /min [facility] 07-27-2022 01:46-0400 SaO2% (BldA) [Mass fraction] 96 % [facility] 07-27-2022 01:45-0400 Diastolic blood pressure 67 mm[Hg] [facility] 07-27-2022 01:45-0400 Mean blood pressure 89 mm[Hg] [facility] 07-27-2022 01:45-0400 Systolic blood pressure 134 mm[Hg] [facility] 07-27-2022 01:45-0400 Body temperature 98.06 [degF] [facility] 07-27-2022 01:45-0400 Blood Pressure Location [facility] 07-27-2022 01:45-0400 Respiratory rate 18 /min [facility] 07-26-2022 20:00-0400 Respiratory rate 16 /min [facility] 07-26-2022 17:20-0400 Blood Pressure Location [facility] 07-26-2022 17:20-0400 Heart rate 78 /min [facility] 07-26-2022 15:30-0400 Respiratory rate 12 /min [facility] 07-26-2022 15:00-0400 Mean blood pressure 122 mm[Hg] [facility] 07-26-2022 15:00-0400 Respiratory rate 8 /min [facility] 07-26-2022 14:30-0400 Mean blood pressure 112 mm[Hg] [facility] 07-26-2022 14:30-0400 Respiratory rate 12 /min [facility] 07-26-2022 13:30-0400 Mean blood pressure 95 mm[Hg] [facility] 07-26-2022 11:35-0400 gluc 105 mg/dL [facility] 07-26-2022 11:35-0400 gluc Francisco Ottoniel [facility] 07-26-2022 11:35-0400 Heart rate 72 /min Francisco Ottoniel [facility] 07-26-2022 11:35-0400 Respiratory rate 18 /min Francisco Ottoniel [facility] 05-02-2022 10:00-0500 Body height 175.26 cm Larry Stephanie Other [employer] [facility] [employer] Other 05-02-2022 10:00-0500 Body mass index (BMI) [Ratio] 31.89 kg/m2 Larry Brown Other [employer] Other 05-02-2022 10:00-0500 Body weight 97.98 kg Larry Brown Other [employer] Other 05-02-2022 10:00-0500 Diastolic blood pressure 80 mm[Hg] Larry Brown Other [facility] [employer] Other 05-02-2022 10:00-0500 Systolic blood pressure 134 mm[Hg] Larry Brown Other [facility] [employer] Other 03-08-2022 17:00-0500 Diastolic blood pressure 117 mm[Hg] Wm Yakov [facility] 03-08-2022 17:00-0500 Mean blood pressure 131 mm[Hg] Wm Yakov [facility] 03-08-2022 17:00-0500 SaO2% (BldA) [Mass fraction] 95 % Wm Yakov [facility] 03-08-2022 17:00-0500 Systolic blood pressure 160 mm[Hg] Wm Yakov [facility] 03-08-2022 16:30-0500 Diastolic blood pressure 85 mm[Hg] Wm Yakov [facility] 03-08-2022 16:30-0500 Heart rate 75 /min Wm Yakov [facility] 03-08-2022 16:30-0500 Mean blood pressure 94 mm[Hg] Wm Yakov [facility] 03-08-2022 16:30-0500 Respiratory rate 15 /min Wm Yakov [facility] 03-08-2022 16:30-0500 SaO2% (BldA) [Mass fraction] 98 % Wm Yakov [facility] 03-08-2022 16:30-0500 Systolic blood pressure 112 mm[Hg] Wm Yakov [facility] 03-08-2022 16:10-0500 Diastolic blood pressure 74 mm[Hg] Wm Yakov [facility] 03-08-2022 16:10-0500 Heart rate 93 /min Wm Yakov [facility] 03-08-2022 16:10-0500 Mean blood pressure 90 mm[Hg] Wm Yakov [facility] 03-08-2022 16:10-0500 Respiratory rate 14 /min Wm Yakov [facility] 03-08-2022 16:10-0500 SaO2% (BldA) [Mass fraction] 98 % Wm Yakov [facility] 03-08-2022 16:10-0500 Systolic blood pressure 122 mm[Hg] Wm Yakov [facility] 03-08-2022 15:15-0500 Respiratory rate 18 /min Wm Yakov [facility] 03-08-2022 15:00-0500 Hourly Rounding Wm Yakov [facility] 03-08-2022 15:00-0500 Promise to Return Wm Yakov [facility] 03-08-2022 14:45-0500 Respiratory rate 20 /min Wm Yakov [facility] 03-08-2022 14:15-0500 Respiratory rate 20 /min Wm Yakov [facility] 03-08-2022 14:14-0500 Hourly Rounding Wm Yakov [facility] 03-08-2022 14:14-0500 Promise to Return Wm Yakov [facility] 03-08-2022 13:54-0500 Heart rate 99 /min Wm Nagy [facility] 03-08-2022 13:37-0500 Body temperature 97.7 [degF] Wm Nagy [facility] 03-08-2022 13:37-0500 Heart rate 104 /min Wm Nagy [facility] 03-08-2022 13:00-0500 Hourly [address] Wm Nagy [facility] 03-08-2022 13:00-0500 Promise to Return Wm Nagy [facility] 03-07-2022 11:00-0500 Body height 175.26 cm Larry Carrilloky Other [employer] Other 03-07-2022 11:00-0500 Body mass index (BMI) [Ratio] 32.54 kg/m2 Larry Stephanie Other [employer] Other 03-07-2022 11:00-0500 Body weight 99.97 kg Larry Carrilloky Other [employer] Other 03-07-2022 11:00-0500 SaO2% (BldA) [Mass fraction] 99 % Larryrandy Brown Other [employer] Other 06-20-2017 09:19-0500 PAIN LEVEL 0 {score} [...] 06-19-2017 18:45-0500 BP Systolic 144 mm[Hg] Praveen Carlsona 06-19-2017 18:45-0500 Pulse (Heart Rate) 91 /min Praveen reardon 06-19-2017 18:45-0500 Pulse Oximetry 99 % Praveen Bynum 06-19-2017 18:45-0500 Respiratory Rate 19 /min Praveen Bynum 06-19-2017 16:04-0500 Height 175.26 cm Praveen Carlsona 06-19-2017 15:43-0500 Body Temperature 98 [degF] Praveen Bynum 06-19-2017 15:43-0500 BP Diastolic 74 mm[Hg] Praveen Carlsona 06-19-2017 15:43-0500 BP Systolic 140 mm[Hg] Praveen Carlsona 06-19-2017 15:43-0500 Pulse (Heart Rate) 88 /min Praveen reardon 06-19-2017 15:43-0500 Pulse Oximetry 98 % Praveen Bynum 06-19-2017 15:43-0500 Respiratory Rate 18 /min Praveen Bynum 06-19-2017 09:24-0500 PAIN LEVEL 0 {score} Praveen Carlsona 06-19-2017 09:24-0500 Body Temperature 98 [degF] Praveen [...] Date Encounter Type Care Provider Facility Start: 10-30-2023 End: 10-30-2023 ambulatory SARA VICK Facility:[facility] Start: 08-08-2023 End: 08-08-2023 ambulatory GHANSHYAM LOMBARDI Facility:[facility] Start: 08-08-2023 End: 08-08-2023 Subsequent hospital visit by physician Mri 6 Radio Main Q (I-Stat/1.5t/3t) Work Phone: MRI Q Comment on above: 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, 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] Start: 08-07-2023 End: 08-07-2023 ambulatory MD Sara Vick Work Phone: [facility] Work Phone: Start: 08-07-2023 End: 08-07-2023 Patient encounter procedure MD Sara Vick Work Phone: [facility] [place] Work Phone: Start: 08-05-2023 End: 08-06-2023 ambulatory ANNIE J PRINTY Not Available Start: 07-15-2023 End: 07-15-2023 ambulatory ANNIE PRINTY Not Available Start: 07-13-2023 End: 07-13-2023 ambulatory GHANSHYAMEVELINE LOMBARDI Facility:[facility] Start: 07-13-2023 End: 07-13-2023 Subsequent hospital visit by physician [facility] Dasia Work Phone: Radiology Comment on above: Chronic bilateral lo w back pain with bilateral sciatica [M54.42, M54.41, G89.29] Start: 07-01-2023 End: 07-01-2023 Patient encounter procedure MD Sara Vick Work Phone: [facility] Work Phone: Start: 06-30-2023 End: 06-30-2023 Patient encounter procedure MD Sara Vick Work Phone: [facility] Work Phone: Start: 06-29-2023 End: 06-29-2023 ambulatory ANNIE J PRINTY Not Available Start: 06-24-2023 End: 06-24-2023 Patient encounter procedure Ghanshyam Lombardi MD Work Phone: [facility] Comment on above: 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); Chronic bilateral low back pain with bilateral sciatica Start: 06-24-2023 End: 06-24-2023 ambulatory GHANSHYAM LOMBARDI Facility:[facility] Start: 06-24-2023 End: 06-24-2023 Subsequent hospital visit by physician Xr Main Qb1 Radiology Comment on above: 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] Start: 05-22-2023 End: 05-22-2023 ambulatory Sara Vick Facility:[facility] Start: 05-22-2023 End: 05-22-2023 ambulatory MD Saar Vick Work Phone: [facility] Work Phone: Start: 05-22-2023 End: 05-22-2023 Patient encounter procedure MD Sara Vick Work Phone: [facility]Ul[facility]ound [facility] [place] Work Phone: Start: 05-20-2023 End: 05-20-2023 ambulatory Sara Vick Facility:[facility] Start: 05-20-2023 End: 05-20-2023 Discharged Recurring MD Sara Vick Work Phone: [facility] [address] Start: 05-20-2023 Registered Recurring MD Gideon Vick Work Phone: [facility] [address] Start: 05-18-2023 Patient encounter procedure MD Sara Vick Work Phone: [facility]- Start: 05-15-2023 End: 05-15-2023 ambulatory Larry Brown Other [employer] Other Start: 05-15-2023 Office outpatient vi sit 25 minutes Larry Brown [facility] [place] Start: 05-15-2023 End: 05-15-2023 Patient encounter procedure MD Sara Vick Work Phone: [facility]- Start: 05-13-2023 End: 05-13-2023 ambulatory Kiran Kessler Other [employer] Other Start: 05-13-2023 Office outpatient ne w 60 minutes Kiran Kessler [facility] Start: 05-13-2023 End: 05-13-2023 Patient encounter procedure MD Sara Vick Work Phone: [facility]- Start: 04-16-2023 End: 04-16-2023 ambulatory Dominique Shane Other [employer] Other Start: 04-16-2023 Telephone encounter Dominique Shane [facility] Start: 04-03-2023 End: 04-03-2023 ambulatory Larry Brown Other [employer] Other Start: 04-03-2023 Office outpatient vi sit 15 minutes Larry Brown [facility] [place] Start: 04-03-2023 End: 04-03-2023 Patient encounter procedure MD Sara Vick Work Phone: [facility] [place] Work Phone: Start: 03-25-2023 (PROC) PROCEDURE Larry Brown [facility] Start: 03-25-2023 End: 03-25-2023 ambulatory Sara Vick Facility:[facility] Start: 03-25-2023 End: 03-25-2023 Admission to same day surgery center MD Sara Vick Work Phone: [facility] Work Phone: Start: 03-25-2023 End: 03-25-2023 ambulatory MD Sara Vick Work Phone: [facility] Work Phone: Start: 03-06-2023 End: 03-06-2023 Patient encounter procedure MD Sara Vick Work Phone: [facility] [place] Work Phone: Start: 02-10-2023 End: 02-10-2023 ambulatory Dominique Shane Other [employer] Other Start: 02-10-2023 Telephone encounter Dominique Shane [facility] Start: 01-27-2023 End: 01-27-2023 ambulatory Dominique Shane Other [employer] Other Start: 01-27-2023 Office outpatient vi sit 25 minutes Dominique Shane [facility] [place] Start: 01-27-2023 Telephone encounter Larry Stephanie [facility] Start: 01-09-2023 End: 01-09-2023 ambulatory Larry Stephanie Other [employer] Other Start: 01-09-2023 Office outpatient vi sit 25 minutes Larry Stephanie [facility] [place] Start: 12-12-2022 End: 12-12-2022 ambulatory Larry Stephanie Other [employer] Other Start: 12-12-2022 Office outpatient vi sit 25 minutes Larry Stephanie [facility] [place] Start: 11-22-2022 End: 11-22-2022 Emergency department patient visit [facility] Facility:[facility] Start: 09-19-2022 End: 09-19-2022 ambulatory Larry Stephanie Other [employer] Other Start: 09-19-2022 Office outpatient vi sit 25 minutes Larry Stephanie [facility] [place] Start: 09-18-2022 ambulatory PERFECTO BURCH [facility] Start: 09-18-2022 End: 09-18-2022 Office outpatient new 30 minutes Perfecto Burch MD Work Phone: [facility] Comment on above: 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, sequela (Primary Dx) Start: 09-18-2022 End: 09-18-2022 Subsequent hospital visit by physician Perfecto Burch MD Work Phone: [facility] Start: 09-17-2022 ambulatory ADELE FLEMING Faci lity:[facility] Start: 09-10-2022 End: 09-10-2022 ambulatory Sara Vick Facility:[facility] Start: 09-09-2022 End: 09-10-2022 ambulatory ADELE FLEMING Facility:[facility] Start: 09-08-2022 End: 09-09-2022 ambulatory Alley Naranjo Facility:[facility] Start: 08-18-2022 End: 08-19-2022 ambulatory ADELE FLEMING Facility:[facility] Start: 08-13-2022 ambulatory PERFECTO BURCH [facility] Start: 08-12-2022 End: 08-13-2022 ambulatory ADELE FLEMING Facility:[facility] Start: 08-08-2022 End: 08-09-[address] ALFRED UMAÑA Facility:[facility] Start: 08-01-2022 End: 08-02-2022 ambulatory ADELE FLEMING Facility:[facility] Start: 07-26-2022 End: 07-27-2022 ambulatory Julio Ferrara Facility:[facility] Start: 07-26-2022 End: 07-27-[address] [facility] Start: 07-25-2022 Encounter for preprocedural cardiovascular examination ADELE FLEMING [facility] Start: 07-25-2022 Encounter for preprocedural laboratory examination ADELE FLEMING [facility] Start: 07-24-2022 End: 07-25-2022 ambulatory [...] 06-19-2022 ambulatory MD Sara Vick Work Phone: [facility] Work Phone: Start: 06-19-2022 End: 06-19-2022 Discharged Recurring MD Sara Vick Work Phone: [facility] [place] Work Phone: Start: 06-13-2022 End: 06-14-2022 ambulatory [...] 05-02-2022 End: 05-02-2022 ambulatory Larry Brown Other [employer] Other Start: 05-02-2022 Office outpatient vi sit 25 minutes Larry Brown [facility] Start: 05-01-2022 End: 05-02-2022 ambulatory ADELE FLEMING Facility:[facility] Start: 04-22-2022 End: 04-23-2022 ambulatory ADELE FLEMING Facility:[facility] Start: 04-14-2022 End: 04-15-2022 ambulatory DEEPALI JANSEN Facility:[facility] Start: 04-08-2022 (PROC) PROCEDURE Larry Beck [facility] Start: 04-08-2022 End: 04-08-2022 ambulatory Larry Brown Other [employer] Other Start: 03-31-2022 End: 04-01-[address] ALFRED UMAÑA Facility:[facility] Start: 03-08-2022 End: 03-08-2022 Emergency department patient visit Wm Nagy Facility:[facility] Start: 03-08-2022 End: 03-08-2022 Emergency department patient visit Wm Nagy [facility] Start: 03-07-2022 End: 03-07-2022 ambulatory Larry Brown Other [employer] Other Start: 03-07-2022 Office consultation new/estab patient 60 min Larry Brown [facility] [place] Start: 03-06-2022 End: 03-07-[address] SARA VICK . Facility:[facility] Start: 01-03-2022 End: 01-03-[address] SARA VICK . Facility:[facility] Start: 12-09-2021 End: 12-10-2021 ambulatory SHAWANDA LITTLE Facility:[facility] Start: 11-05-2021 End: 11-06-2021 ambulatory ADELE Means [facility] Facility:[facility] Start: 10-07-2021 End: 10-07-2021 ambulatory PO SUAREZ . Facility:[facility] Start: 05-04-2020 End: 05-04-2020 Patient encounter procedure Sara Hoy -Pre-Surgical Testing Start: 05-02-2020 Registered Recurring Sara Vick -P hysical Therapy [place] Start: 04-24-2020 End: 04-24-2020 Patient encounter procedure Sara Hoy -Pre-Surgical Testing Start: 02-01-2020 End: 02-01-2020 Patient encounter procedure Sara Vick -XRay [facility] Start: 06-29-2018 Patient encounter procedure Sara~[id number] UNKNOWN Hoy Facility:[facility] Start: 12-11-2017 End: 12-12-2017 Patient encounter DEFAULT PHYSICIAN Facility:[facility] Procedures Date Procedure Procedure Detail Performing Clinician Start: 08-08-2023 Mri spinal canal tho racic w/o contrast matrl Ghanshyam Lombardi MD Work Phone: Start: 07-13-2023 Ct lumbar spine w/o contrast material Ghanshyam Lombardi MD Work Phone: Start: 06-24-2023 End: 06-24-2023 Radex spine lumbosacral minimum 4 views Ros Cedeño [employer] ARCHITECT.TRANSPORTATION COORDINATOR Work Phone: Start: 05-22-2023 Pulse volume recorde r pneumoplethysmography MD Sara Vick Work Phone: Start: 05-22-2023 Duplex scan of lower limb veins MD Sara Vick Work Phone: Start: 03-25-2023 Local anesthetic sac ral epidural block MD Sara Vick Work Phone: Start: 02-01-2020 Plain X-ray of femur Do karan Vick Start: 02-01-2020 X-ray of right knee Juliet Vick Start: 05-11-2017 Injection of sacroil iac [...] for malignant neoplasm of breast Mammogram Screening [facility] Start: 06-23-2024 BP Controlled (<130/80) BP Controlled (<130/80) [facility] Start: 12-20-2023 Influenza vaccination Influenza Vaccine (Season Ended) [facility] Start: 05-22-2023 Pulse volume recorder pneumoplethysmography US arterial pvr rest [facility] Start: 05-22-2023 [facility] Start: 05-22-2023 Duplex scan of lower limb veins US venous duplex LE [facility] Start: 05-22-2023 US Lower extremity vein - bilateral [facility] Start: 04-20-2023 Advance Directive Discussion Advance Directive Discussion [facility] Start: 04-20-2023 Behavioral Health Screening Behavioral Health Screening [facility] Start: 04-20-2023 Depression Assessment Depression Assessment [facility] Start: 03-25-2023 [facility] Start: 02-28-2023 Screening for malignant neoplasm of breast Mammogram Screening [facility] Start: 12-19-2022 Covid-19 Vaccine ( season) Covid-19 Vaccine () [facility] Start: 12-19-2022 Influenza vaccination Influenza Vaccine (#1) [facility] Start: 01-28-2022 COVID-19 VACCINE (5 - Booster for Pfizer series) COVID-19 VACCINE (5 - Booster for Pfizer series) [facility] Start: 08-24-2019 Screening for malignant neoplasm of breast MAMMOGRAM SCREENING DISCUSSION [facility] Start: 12-20-2016 Screening for osteoporosis Bone Density Screening [facility] Start: 06-17-2014 Diabetes Screening Diabetes Screening [facility] Start: 2011 RSV Vaccine (1 - 1-dose 60+ series) RSV Vaccine (1 - 1-dose 60+ series) [facility] Start: 12-20-2001 Shingrix Vaccine (1 of 2) Shingrix Vaccine (1 of 2) [facility] Start: 12-20-2001 Zoster vaccine hzv live for subcutaneous use ZOSTER (SHINGLES) VACCINE (1 of 2) [facility] Start: 12-20-1996 Lipid panel Lipid Screening [facility] Start: 12-20-1996 Screening for malignant neoplasm of colon [facility] Start: 1991 Lipid panel LIPID SCREENING [facility] Start: 12-20-1972 Screening for malignant neoplasm of cervix CERVICAL CANCER SCREENING DISCUSSION [facility] Start: 12-20-1970 Third diphtheria, tetanus and acellular pertussis (DTaP) vaccination TDAP (ADULT) [facility] Start: 12-20-1970 Urine microalbumin profile DTaP,Tdap,Td Vaccine (1 - Tdap) [facility] Start: 12-20-1969 Annual PCP Team Chronic Disease Visit Annual PCP Team Chronic Disease Visit [facility] Start: 1950 Hepatitis C screening HEPATITIS C VIRUS SCREENING [facility] Start: 1950 Screening for osteoporosis DEXA SCAN DISCUSSION [facility] Start: 1950 Tetanus vaccination TETANUS [facility] End: 07-23-2024 CT Lumbar spine WO contrast CT LUMBAR SPINE WO IVCON Radiology Routine Chronic bilateral low back pain with bilateral sciatica 1 Occurrences starting 06/24/2023 until 07/23/2024 [facility] Work Phone: Comment on above: 1 Occurrences starting 06/24/2023 until 07/23/2024 End: 07-23-2024 MR Thoracic spine WO contrast MRI THORACIC SPINE WO IVCON Radiology Routine 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 1 Occurrences starting 06/24/2023 until 07/23/2024 [facility] Work Phone: Comment on above: 1 Occurrences starting 06/24/2023 until 07/23/2024 Patient Education Stephanie Non Diagn ostic Block [facility] Work Phone: Patient referral [facility] Work Phone: XR Knee - left 3 Views XR KNEE L EFT 3 VIEWS Imaging Routine Pain in prosthetic joint, sequela Ordered: 09/16/2022 [facility] Comment on above: Ordered: 09/16/2022 XR Pelvis and Hip - left Views X R HIP WITH PELVIS LEFT Imaging Routine Pain in prosthetic joint, sequela 09/18/2022 10:11 AM EDT [facility] Work Phone: [facility] Immunizations Immunization Date Immunization Notes Care Provider Fa cili 02-11-2022 Influenza, injectabl e, Madin Garrett Canine Kidney, preservative free, quadrivalent MD Sara Vick Work Phone: [facility] 02-11-2022 influenza virus vacc ine, unspecified formulation Ghanshyam Lombardi MD Work Phone: [facility] 12-03-2021 COVID-19 Comirnaty (Pfizer) Tri-Sucrose 12+ MD Sara Vick Work Phone: [facility] 03-25-2021 COVID-19 mRNA, Comir nicolle (Pfizer) MD Sara Vick Work Phone: [facility] 07-12-2020 COVID-19, mRNA, LNP- S, PF, 30 mcg/0.[address] [facility] Comment on above: Reason for Medicatio n: Prophylaxis 06-14-2020 COVID-19, mRNA, LNP- S, PF, 30 mcg/0.[address] [facility] Comment on above: Reason for Medicatio n: Prophylaxis 02-08-2020 Seasonal trivalent influenza vaccine, adjuvanted, preservative free MD Sara Vick Work Phone: [facility] 02-23-2018 influenza, injectabl e, madin josephine canine kidney, preservative free MD Sara Vick Work Phone: [facility] 02-18-2018 pneumococcal polysaccharide vaccine, 23 valent W[facility] 06-18-2017 tuberculin skin test ; unspecified formulation Praveen Bynum 02-24-2017 pneumococcal polysaccharide vaccine, 23 valent MD Sara Vick Work Phone: [facility] 02-05-2017 influenza, high dose seasonal, preservative-free MD Sara Vick Work Phone: [facility] 02-05-2017 pneumococcal conjuga te vaccine, 13 valent [facility] 02-02-2016 influenza, seasonal, injectable, preservative free MD Sara Vick Work Phone: [facility] 10-20-2012 pneumococcal polysaccharide vaccine, 23 valent Wm Nagy [facility] Payers Date Payer Category Payer Unknown [id number] 2022 Self-pay [id number] 2022 Unknown [id number] 2022 Private Health Insurance 2018 Medicare [id number] 1959 Private Health Insurance [id number] 1951 Unknown [id number] 2.16.84 0.1.958756.3.579.2.727 1951 Unknown [id number] 2.16.8 40.1.136069.3.579.2.159 1951 Unknown [id number] 2.16.84 0.1.819728.3.579.2.593 1951 Unknown [id number] 2.16.84 0.1.509561.3.579.2.593 1951 Unknown [id number] 2.16.84 0.1.975347.3.579.2.593 1951 Unknown [id number] 2.16.84 0.1.867073.3.579.2.593 1951 Unknown [id number] 2.16.84 0.1.208685.3.579.2.593 1951 Unknown [id number] 2.16.84 0.1.436681.3.579.2.593 1951 Unknown [id number] 2.16.84 0.1.797006.3.579.2.593 1951 Unknown [id number] 2.16.84 0.1.849747.3.579.2.593 1951 Unknown [id number] 2.16.84 0.1.755944.3.579.2.593 1951 Unknown [id number] 2.16.84 0.1.933436.3.579.2.593 1951 Unknown [id number] 2.16.84 0.1.907707.3.579.2.593 1951 Unknown [id number] 2.16.84 0.1.600627.3.579.2.593 1951 Unknown [id number] 2.16.84 0.1.143654.3.579.2.593 1951 Unknown [id number] 2.16.84 0.1.603601.3.579.2.593 1951 Unknown [id number] 2.16.84 0.1.004375.3.579.2.593 1951 Unknown [id number] 2.16.84 0.1.769697.3.579.2.593 1951 Unknown [id number] 2.16.84 0.1.885526.3.579.2.593 1951 Unknown [id number] 2.16.84 0.1.641964.3.579.2.593 1951 Unknown [id number] 2.16.84 0.1.990585.3.579.2.593 1951 Unknown [id number] 2.16.84 0.1.009472.3.579.2.593 1951 Unknown [id number] 2.16.84 0.1.643869.3.579.2.593 1951 Unknown [id number] 2.16.84 0.1.291521.3.579.2.593 1951 Unknown [id number] 2.16.84 0.1.383591.3.579.2.593 1951 Unknown [id number] 2.16.84 0.1.340569.3.579.2.593 1951 Unknown [id number] 2.16.84 0.1.371466.3.579.2.593 1951 Unknown [id number] 2.16.84 0.1.046191.3.579.2.593 1951 Unknown [id number] 2.16.84 0.1.329320.3.579.2.593 1951 Unknown [id number] 2.16.84 0.1.649298.3.579.2.593 1951 Unknown [id number] 2.16.84 0.1.988721.3.579.2.593 1951 Unknown [id number] 2.16.8 40.1.261559.3.579.2.983 1951 Unknown [id number] 2.16.8 40.1.717014.3.579.2.983 1951 Unknown [id number] 2.16.8 40.1.359560.3.579.2.983 1951 Unknown [id number] 2.16.8 40.1.588863.3.579.2.727 1951 Unknown [id number] 2.16.8 40.1.155797.3.579.2.727 1951 Unknown [id number] 2.16.8 40.1.852190.3.579.2.727 1951 Unknown [id number] 2.16.8 40.1.065582.3.579.2.727 1951 Unknown [id number] 2.16.84 0.1.370956.3.579.2.1259 1951 Unknown [id number] 2.16.84 0.1.323688.3.579.2.1259 1951 Unknown [id number] 2.16.84 0.1.590922.3.579.2.1259 Unknown Unknown [id number] Unknown [id number] 2.16.8 40.1.564687.3.579.2.531 Unknown [id number] 2.16.8 40.1.383444.3.579.2.531 Unknown [id number] 2.16.8 40.1.698274.3.579.2.531 Unknown [id number] 2.16.8 40.1.519654.3.579.2.531 Social History Date Type Detail Facility Start: 06-18-2017 Unknown if ever smoked [facility] Start: 04-24-2020 End: 06-24-2023 Tobacco smoking status [facility] Never smoked tobacco (finding) [facility] Start: 1950 Sex Assigned At Female F [facility] Start: 06-24-2023 Sex Assigned At F [facility] Start: 09-18-2022 Tobacco use and exposure Smokeless tobacco non-user [facility] Start: 09-18-2022 End: 06-24-2023 Alcohol intake Current drinker of alcohol (finding) [facility] Start: 09-18-2022 Alcohol Comment occasional [facility] Start: 1950 Sex Assigned At Not on file [facility] Start: 06-24-2023 Alcohol intake [facility] National Score (1-100), lower number is lower risk 62 [facility] Medical Equipment Procedure Code Equipment Code Equipment Origin al Text Equipment Identifier Dates Arthroplasty, knee, total, minimally invasive Orthopaedic cement, non-medicated [id number] FDA Start: 05-07-2020 Arthroplasty, knee, total, minimally invasive Uncoated knee femur prosthesis, metallic ()[id number] FDA Start: 05-07-2020 Arthroplasty, knee, total, minimally invasive Tibial insert ()[id number] FDA Start: 05-07-2020 Arthroplasty, knee, total, minimally invasive Uncoated knee tibia prosthesis, metallic ()[id number] FDA Start: 05-07-2020 Arthroplasty, knee, total, minimally invasive Polyethylene patella prosthesis ()[id number] FDA Start: 05-07-2020 Goals Date Patient Goal Desired Activity /State Functional Status Date Assessment Result Facility 07-26-2022 Functional Status No [facility] 07-26-2022 Functional Status [facility] 03-08-2022 Functional Status No [facility] Clinical Notes 10-07-2021 to 08-08-2023 Flor Ziegler, RT(R) - 08/08/2023 3:40 PM Torrie Pendleton RT(R) - 07/13/2023 10:40 AM Ghanshyam Coto MD - 06/24/2023 1:40 PM EST Note Date & Type Note Facility 08-08-2023 History of Present illness Narrative Radiology [...] PATIENT PRESENTS WITH AN IMPLANTABLE OR ATTACHED GIN OPERATOR: No RADIOLOGY DEPARTMENT: MR; Exam(s) Completed: Spine: Thoracic spine PERIPHERAL IV DATA: Not applicable SIGNED BY: BAY Leo) August 08, 2023 3:59 PM documented in this encounter [facility] 08-08-2023 Note HNO ID: [id number] Author: FLOR ZIEGLER RT (R) Service: Radiology Author Type: Technologist Type: Progress [...] PATIENT PRESENTS WITH AN IMPLANTABLE OR ATTACHED GIN OPERATOR: No RADIOLOGY DEPARTMENT: MR; Exam(s) Completed: Spine: Thoracic spine PERIPHERAL IV DATA: Not applicable SIGNED BY: RT Felipa(R) August 08, 2023 3:59 PM [facility] 07-13-2023 History of Present illness Narrative [...] PATIENT PRESENTS WITH AN IMPLANTABLE OR ATTACHED GIN OPERATOR: No RADIOLOGY DEPARTMENT: CT; Exam(s) Completed: Spine PERIPHERAL IV DATA: Not applicable SIGNED BY: RT Se(Bryce) July 13, 2023 10:44 AM documented in this encounter [facility] 07-13-2023 Note HNO ID: [id number] Author: TORRIE ABRAHAM RT(R) Service: Radiology Author [...] PATIENT PRESENTS WITH AN IMPLANTABLE OR ATTACHED GIN OPERATOR: No RADIOLOGY DEPARTMENT: CT; Exam(s) Completed: Spine PERIPHERAL IV DATA: Not applicable SIGNED BY: TorrieRT Courtney(R) July 13, 2023 10:44 AM [facility] 06-24-2023 Note HNO ID: [id number] Author: GHANSHYAM LOMBARDI MD Service: ? Author [...] Ghanshyam Lombardi MD documented in this encounter [facility] 05-15-2023 Evaluation note Encounter Date [...] In the meantime, she can continue taking [place] as needed all as well as Gabapentin [...] and no personal patient information was compromised. [facility] Other 01-24-2024 Evaluation note* Encounter Date Diagnosis [...] agrees with plan all questions were addressed. [facility] Other 12-28-2023 Evaluation note* Encounter Date Diagnosis Assessment Notes Treatment Notes Treatment Clinical Notes Mar, Lumbar radiculopathy (ICD-10 - M54.16) 72 year old female evaluated via telephonic call for follow up and medication refill for chronic pain. She voices complaints of low back pain with intermittent radiation down the right lower extremity. She continues taking [place] with relief and is requesting a refill of this today. I discussed different treatment options in detail with the patient. She feels medication is managing her pain and does not wish to proceed with injections at this time. I encouraged the patient to start physical therapy as previously discussed. She can also continue taking medications as prescribed and I will refill her [place] as she feels this provides an element [...] pain (ICD-10 - G89.29) Continue medication management. [facility] Other 12-15-2023 Evaluation note* Encounter Date Diagnosis [...] pain (ICD-10 - G89.29) Continue medication management. [facility] Other 10-24-2023 Evaluation note* Encounter Date Diagnosis Assessment Notes Treatment Notes Treatment Clinical Notes Jan, Lumbar radiculopathy (ICD-10 - M54.16) [facility] Other 10-10-2023 Evaluation note* Encounter Date Diagnosis [...] regarding this. Meanwhile, I will refill her [place] as it does provide an element of [...] educated on the risks and benefits of intermodal customer service opioid use. Hydrocodone/Acetamin ophen was refilled today, opioid risk assessment was done as well as pill count. Patient is compliant with opioid medication. The patient denies any opioid related side effects. [facility] Other 09-22-2023 Evaluation note* Encounter Date Diagnosis [...] educated on the risks and benefits of assisted opioid use. Hydrocodone/Aceta minophen was refilled today, opioid risk assessment was done as well as pill count. Patient is compliant with opioid medication. The patient denies any opioid related side effects. Patients last urine drug screen was positive for alcohol, she is counselled against consuming alcohol. [facility] Other 08-25-2023 Evaluation note* Encounter Date Diagnosis [...] M51.36) Stable, follow up in 4 weeks. [facility] Other 06-02-2023 Evaluation note* Encounter Date Diagnosis [...] nerve blocks in the future if needed. [facility] Other 06-01-2023 History of Present illness Narrative* [...] 09/18/2022 10:58 AM Patient: Leelee Cedillo MR#: [id number] : 1950 Age: 71 y.o. Referring Physician: Sorin Dickerson DO Insurance: Payor: [facility]IC[facility] / Plan: MEDICARE [employer] HMO PPO [...] repair GALL BLADDER SURGERY 1999 BACK SURGERY [id number]- FOOT SURGERY [id number] Family History: Her family history is not [...] [x]cane, []bracing Are you followed by a electric organ assembler? [] [x] Name: Are you followed by [...] repair GALL BLADDER SURGERY 1999 BACK SURGERY [id number]- FOOT SURGERY [phone] No family history on file. Social History [...] Rash Flagyl [Metronidazole] Dyspepsia [facility]:Result Comment: Electronically Signed By: Rachel SALTER\.br\Date and Time Signed: 07/27/22 15:21 EDT\.br\Electronically Co-Signed By: Ottoniel RUFF, Francisco Beck\.br\Date and Time Co- Signed: 07/27/22 17:04 [id number] Hospital Discharge instructions Patient Education 07/27/2022 15:20:26 [...] Follow these instructions at home: Medicines Take ahin-kvj-aexxxyn and prescription medicines only as told by [...] 04/06/2006 Document Revised: 07/29/2019 Document Reviewed: 02/23/2019 [employer] Patient Education 2020 [employer] 07/27/2022 15:20:26 Vasovagal Syncope, Pediatric Vasovagal [...] ?Squatting. ?Moving his or her legs. Give bqqc-odg-rllkvzb and prescription medicines only as told by [...] 01/13/2009 Document Revised: 03/19/2018 Document Reviewed: 05/12/2017 [employer] Patient Education 2020 [employer]. Follow Up Care 07/26/2022 11:32:57 With:Sara Vick Address: [address] [place] [phone]- Business (1) When: Unknown Comments:Call for followup appointment 7-10 days With:Julio Ferrara MD, NEU Address: [address] [place] [phone]- When:[address] [facility]04-09-2023 Evaluation + Plan noteExtracted from: Title:Discharge [...] With When Contact Information Sara Vick [address] [facility] [place] [address]- Business (1) Additional Instructions: Call for followup appointment 7-10 days Josias RUFF, CARLOS Thacker Within 2 to 4 weeks [address] [place] [address]- Additional Instructions: Near-Syncope Vasovagal Syncope, Pediatric Extracted [...] it is acute or subacute. It might bucket turner to just be some focal white [...] specified devices) recent right foot surgery in [facility]/podiatry secondary to non healing food wound. Currently has wound vac intact to this operative site. 6. Osteoarthritis (M19.90: Unspecified osteoarthritis, unspecified site) osteoarthritis status post left hip replacement Has chronic back pain. 7. Morbid obesity (E66.01: Morbid (severe) obesity due to excess calories) -BMI 70.73 -Vp Of Product on diet, exercise, weight loss and lifestyle [...] plan. Diagnostic Tests Pending * HgbA1c 07/27/22 [facility]04-08-2023 [facility]Access [facility] DaytonComment on above:Result Comment: Electronically Signed By: Rachel [...] if her pain increases in the future. [facility] Other [id number] NotePROCEDURE: XR FOOT RT MIN 3 VIEWS, [...] Electronically authenticated by: JULIO LOBATO Date: 2022-04-23 13:00[facility]01-04-2023 NotePROCEDURE: XR FOOT RT MIN 3 VIEWS, [...] Electronically authenticated by: JULIO LOBATO Date: 2022-04-23 13:00[facility]12-12-2022 NotePROCEDURE: XR ANKLE RT MIN 3 VIEWS [...] Electronically authenticated by: ALFRED UMAÑA Date: 2022-03-31 18:19[facility]11-19-2022 Hospital Discharge instructions Patient Education 03/08/2022 17:44:27 [...] 04/06/2006 Document Revised: 04/15/2017 Document Reviewed: 03/23/2017 [employer] Patient Education 2020 [employer] 03/08/2022 17:44:27 Hip Dislocation Hip Dislocation [...] Follow these instructions at home: Medicines Take jlon-xmi-enbbwqw and prescription medicines only as told by your health care provider. Ask your health care provider if the medicine prescribed to you: ?Requires you to avoid driving or using heavy machinery. ?Can cause constipation. You may need to take actions to prevent or treat constipation, such as: ?Drink enough fluid to keep your urine pale yellow. ?Take rgiu-opk-kydaiew or prescription medicines. ?Eat foods that are [...] in the [place] Do not drive yourself [facility]. Summary Hip dislocation happens when the [...] 12/30/2001 Document Revised: 12/29/2018 Document Reviewed: 12/30/2018 [employer] Patient Education 2020 Stevie. Follow Up Care 03/08/2022 13:37:46 With:Sorin DICKERSON Address: [address] [place] [phone] Business (1) When:03/11/2022 17:44:09 Comments:Call to establish follow-up care. Wear brace until follow-up with orthopedic surgery. With:Sara Vick Address: [address] [place] [address] [place] [address]- Business (1) When:03/11/2022 17:43:29 Comments:Call the office [...] you develop any new or worsening symptoms. [facility]11-19-2022 Evaluation + Plan noteExtracted from: Title:ED [...] XR Hip 2-3 Views Left + Pelvis [facility]11-18-2022 Evaluation note* Encounter Date Diagnosis Assessment [...] negative findings were considered in medical decision-making. [facility] Other [id number] NotePROCEDURE: XR FOOT RT MIN 3 VIEWS [...] Electronically authenticated by: JULIO LOBATO Date: 2021-10-07 11:44[facility] CenterEvaluation noteNo InformationNort Affaredelgiorno Other Evaluation noteNo assessment information available [facility] Work Phone: Evaluation note* Diagnosis Pain in prosthetic joint, sequela- Primary [facility] Diagnosis Adjacent segment disease of lumbar spine with history of fusion procedure- Primary Chronic bilateral low back pain with bilateral sciatica [facility] Diagnosis 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) documented in this encounter [facility]* Diagnosis Chronic bilateral low back pain with bilateral sciatica documented in this encounter [facility]* Diagnosis Onset Date Resolution Status Chronic pain acute Lumbar degenerative disc disease acute Lumbar radiculopathy acute Lumbosacral spondylosis acut e Sacroiliitis acute 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 acute Chronic pain acute Lumbar degenerative disc disease acute Lumbar radiculopathy acute Lumbosacral spondylosis acut e Sacroiliitis acute [facility] Work Phone: Evaluation note* Diagnosis 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 documented in this encounter [facility] general Narrative - Reported* Type Description [...] 2 021 Surgical History back surgeries x5 [facility] yuandr gilman 2018 [facility] Other [employer] general Narrative - Reported* Type Description Date [...] 2 021 Surgical History back surgeries x5 [facility] yuandr gilman 2019 Hospitalization History see above [facility] Other [facility] general Narrative - Reported* Type Description Date [...] 2 021 Surgical History back surgeries x5 [facility] carisa-dr gilman 2018 Surgical History lazer surgery on her lt leg veins and she also had sclero tx on b/l legs 2022 Hospitalization History see above [facility] Other Hospital course Narrative No data available [facility] this section [facility] No data available [facility] this section [facility] Diagnostic Procedure Only (Routine) - Closed Specialty Diagnoses / Procedures Referred By Maximiliano dee Referred To Contact XR IMAGING Diagnoses Fusion of spine of thoracolumbar region Procedures XR SCOLIOSIS PA STAND/LAT 2V RADEX ENTIR THRC LMBR CRV SAC SPI W/SKULL 2/3 VW Ros Cedeño APRN.TRANSPORTATION COORDINATOR [address] [place] [address] Xr Imaging [place] [address] Referral ID Status Reason Start Date Expiration Date V isits Requested Visits Authorized [id number] Closed Auto-Generate d Referral 02/25/2023 03/26/2024 1 1 * Diagnostic Procedure Only (Routine) - Closed Specialty Diagnoses / Procedures Referred By Maximiliano dee Referred To Contact XR IMAGING Diagnoses Fusion of spine of thoracolumbar region Procedures XR LUMBAR MOTION 4V AP/LAT/ FLEX/EXT RADEX SPINE LUMBOSACRAL MINIMUM 4 VIEWS Ros Cedeño APRN.TRANSPORTATION COORDINATOR [address] [place] [id number] X[facility] [place] [address] Referral ID Status Reason Start Date Expiration Date V isits Requested Visits Authorized [id number] Closed Auto-Generate d Referral 02/25/2023 03/26/2024 1 1 [facility] for referral (narrative)* Diagnostic Procedure Only (Routine) - Closed Specialty Diagnoses / Procedures Referred By Maximiliano t Referred To Contact MR IMAGING Diagnoses 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 Procedures MRI THORACIC SPINE WO IVCON MRI SPINAL CANAL THORACIC W/O CONTRAST MATRL Ghanshyam Lombardi MD [address] [place] [address] Mr Imaging [place] [address] Referral ID Status Reason Start Date Expiration Date V isits Requested Visits Authorized [id number] Closed Auto-Generate d Referral 08/07/2023 09/07/2023 1 1 [facility] for visit Narrative* Diagnostic Procedure Only (Routine) - Closed Specialty Diagnoses / Procedures Referred By Maximiliano t Referred To Contact XR IMAGING Diagnoses Fusion of spine of thoracolumbar region Procedures XR SCOLIOSIS PA STAND/LAT 2V RADEX ENTIR THRC LMBR CRV SAC SPI W/SKULL 2/3 VW Ros Cedeño, [employer] ARCHITECT.TRANSPORTATION COORDINATOR [address] [place] [address] Xr Imaging [place] [address] Referral ID Status Reason Start Date Expiration Date V isits Requested Visits Authorized [id number] Closed Auto-Generate d Referral 02/25/2023 03/26/2024 1 1 [facility] Advance Directives No Advanced Directives [...] FOLLOW UP; PVR'S, FF ULTRASOUND DONE AT [facility] MED REFILL FOR CHRONIC PAIN Reason for [...] SPINE W/O CONTRAST MATERIAL Ghanshyam Lombardi MD [address] [facility] [place] [address] [facility] Referral ID Status Reason Start Date Expiration Date Visits Requested Visits Authorized [id number] Pending Review Auto-Generat ed Referral 06/24/2023 07/23/2024 1 1 Specialty Diagnoses / Procedures Referred By Contac t Referred To Contact MR IMAGING Diagnoses 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 Procedures MRI THORACIC SPINE WO IVCON MRI SPINAL CANAL THORACIC W/O CONTRAST MATRL Ghanshyam Lombardi MD [address] [place] [id number] Mr [facility] Referral ID Status Reason Start Date Expiration Date Visits Requested Visits Authorized [id number] Pending Review Auto-Generat ed Referral 06/24/2023 07/23/2024 1 1 Specialty Diagnoses / Procedures Referred By Contac t Referred To Contact Diagnoses Pain in prosthetic joint, sequela Procedures XR HIP WITH PELVIS LEFT Perfecto Burch MD [address] [place] [address] Referral ID Status Reason Start Date Expiration Date V isits Requested Visits Authorized [id number] New Request 09/18/2022 10/13/2023 1 1 Specialty Diagnoses / Procedures Referred By Contac t Referred To Contact Diagnoses Pain in prosthetic joint, sequela Procedures XR KNEE LEFT 3 VIEWS Perfecto Burch MD [address] [place] [address] Referral ID Status Reason Start Date Expiration Date V isits Requested Visits Authorized [id number] New Request 09/16/2022 10/11/2023 1 1 Additional Source Comments INFORMATION SOURCE (unrecogn ized section and content) DATE CREATED AUTHOR 12/13/2017 [facility] DATE CREATED AUTHOR AUTHOR'S ORGANIZ ATION 07/10/2018 [address] [facility] [facility] ical Center DATE CREATED AUTHOR AUTHOR'S ORGANIZ ATION 02/25/2019 [facility] ical [facility] DATE CREATED AUTHOR AUTHOR'S ORGANIZ ATION 03/01/2022 [facility] dical Specialist DATE CREATED AUTHOR AUTHOR'S ORGANIZ ATION 07/26/2022 [facility] DATE CREATED AUTHOR AUTHOR'S ORGANIZ ATION 09/27/2022 [facility] DATE CREATED AUTHOR AUTHOR'S ORGANIZ ATION 09/27/2022 [facility] DATE CREATED AUTHOR AUTHOR'S ORGANIZ ATION 11/26/2022 [address] [facility] ical Center DATE CREATED AUTHOR AUTHOR'S ORGANIZ ATION 07/29/2023 [facility] DATE CREATED AUTHOR AUTHOR'S ORGANIZ ATION 08/09/2023 [facility] dical Specialists EPIC DATE CREATED AUTHOR AUTHOR'S ORGANIZ ATION 11/05/2023 [facility] REASON FOR VISIT (unrecogniz ed section and content) Specialty Diagnoses / Procedures Referred By Contac t Referred To Contact Diagnoses Pain in prosthetic joint, sequela Procedures XR HIP WITH PELVIS LEFT Perfecto Burch MD [address] [place] [address] Referral ID Status Reason Start Date Expiration Date V isits Requested Visits Authorized [id number] New Request 09/18/2022 10/13/2023 1 1 Reason Comments Pain New Patient Reason Comments New Patient Specialty Diagnoses / Procedures Referred By Contac t Referred To Contact CT IMAGING Diagnoses Chronic bilateral low back pain with bilateral sciatica Procedures CT LUMBAR SPINE WO IVCON CT LUMBAR SPINE W/O CONTRAST MATERIAL Ghanshyam Lombardi MD [address] [place] [address] Ct Imaging [facility] Referral ID Status Reason Start Date Expiration Date V isits Requested Visits Authorized [id number] Closed Auto-Generate d Referral 07/11/2023 08/10/2023 2 1 Specialty Diagnoses / Procedures Referred By Maximiliano dee Referred To Contact Radiology / RADIO MRI MAIN Q Diagnoses Other intervertebral disc degeneration, lumbar region Arthrodesis status Lumbago with sciatica, left side Lumbago with sciatica, right side Other chronic pain MRI Thoracic WO IVCON MRI THORACIC SPINE WO IVCON Procedures MRI SPINAL CANAL THORACIC W/O CONTRAST MATRL MRI WO CARLOS SEMAC A[address] Ghanshyam Lombardi MD [address] [place] [address] Radio Mri Main [address] [place] [id number] Referral ID Status Reason Start Date Expiration Date Visits Re quested Visits Authorized [id number] Closed 08/07/2023 09/07/2023 1 1 Patient Care team informatio n (unrecognized section and content) Team Status: Active Member Role Status Dates Sara Vick MD Primary Care Provider Active Team Status: Inactive Member Role Status Dates Sara Vick MD Primary Care Provider, Attending Pr dusty Active 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 Relationship Specialty Start Date End Date Sara Vick MD [address] [place] [address] PCP - General Family Medicine 04/09/22 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 Relationship Specialty Start Date End Date Sara Vick MD [address] [place] [address] PCP - General Family Medicine 04/09/22 Team [...] May 22, 2023 End: May 22, 2023 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 Relationship Specialty Start Date End Date Sara Vick MD PCP - General Family Medicine 06/09/11 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 Relationship Specialty Start Date End Date Sara Vick MD PCP - General Family Medicine 06/09/11 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 Relationship Specialty Start Date End Date Sara Vick MD PCP - General Family Medicine 06/09/11 Team Status: Inactive Member Role [...] or prosecute any alcohol or drug abuse patient.[facility] Center[facility] the event this information is protected by the Federal Confidentiality of Alcohol and Drug Abuse Patient Records regulations: The Federal rules restrict any use of the information to criminally investigate or prosecute any alcohol or drug abuse patient.[facility] CenterIn the event this information is protected by the Federal Confidentiality of Alcohol and Drug Abuse Patient Records regulations: The Federal rules restrict any use of the information to criminally investigate or prosecute any alcohol or drug abuse patient.[facility] Center[facility] the event this information is protected by the Federal Confidentiality of Alcohol and Drug Abuse Patient Records regulations: The Federal rules restrict any use of the information to criminally investigate or prosecute any alcohol or drug abuse patient.[facility] FOR RECORDS PERTAINING TO PATIENTS [...] BE BASED ON THE PRIMARY CLINICAL RECORDS. [facility]. provides no warranty or guarantee of the accuracy or completeness of information in this document.
== END 2024-06-15 10:11 | disposition home or self-care (01) ==
LOC: WC 10:10
PROVIDERS: PCP Family Medicine; Visit Provider Physician Assistant
DX: L89.892 Pressure ulcer of other site, stage 2 (principal); L97.521 Non-pressure chronic ulcer of other part of left foot limited to breakdown of skin
CPT/HCPCS: 11042

== ENCOUNTER 2024-07-06 10:28 | Outpatient (OUT) | payer MEDICARE, SELFPAY ==
--- OUTSIDE RECORDS SUMMARY | 2024-07-06 10:43 | XMS_ITS | CCD ---
Author Organization [facility] Care Team Providers Care Retail Coordinator Name Role Phone Praveen Lopez Unavailable Unavailable PHYSICIAN, DEFAULT Unavailable Unavailable PHYSICIAN, DEFAULT Unavailable Unavailable SARA VICK Unavailable Unavailable Sara Vick~[phone] UNKNOWN Admitting Unavailable Sara Vick~[phone] UNKNOWN Attending Unavailable Sara Vick~[phone] UNKNOWN Referring Unavailable Sara Vick Primary Care Provider Trino Yoo Attending Provider [phone] Larry Brown Unavailable Sara Vick Primary Care Physician Lynn Salas Unavailable Unavailable Flor Wheeler Unavailable Unavailable ADELE FLEMING Attending Unavailable SARA VICK Primary Care Unavailable MD Sara Vick Primary Care Provider MD Sara Vick Attending Provider [phone] DEEPALI JANSEN Consulting Unavailable DEEPALI JANSEN Admitting [...] DR RUIZ Primary Care Unavailable HIGHLJEANE, ADELE Maens Admitting Unavailable HIGHLANDER, ADELE Means Attending Unavailable [...] Unavailable Sara Vick MD Primary Care Provider [phone] Julio Ferrara Consulting Unavailable Francisco Alcazar S Admitting Unavailable Francisco Alcazar S Attending Unavailable Wellington, Julio Consulting Unavailable Wellington, Julio Consulting Unavailable Wellington, Julio Consulting Unavailable Wellington, Julio Consulting Unavailable Wellington, Julio Consulting Unavailable Wellington, Julio Consulting Unavailable Wellington, Julio Consulting Unavailable Wellington, Julio Consulting Unavailable Wm Nagy Attending Unavailable Flavio Castillo Attending Unavailable Alley Naranjo Admitting Unavailable Alley Naranjo Attending Unavailable Jose A, Alley Referring Unavailable Dominique Shane Unavailable MD Sara Vick Primary Care Provider MD Larry Brown Attending Provider Kiran Kessler Unavailable HAILEY Jansen Attending Provider [phone] MD Kiran Kessler Attending Provider [phone] Sara Vick MD Primary Care Provider [phone] [...] Provider [phone] HAILEY Jansen Attending Provider [phone] MD Kiran Kessler Attending Provider ANNIE JIMENEZ Attending Unavailable ANNIE JIMENEZ Referring [...] Sulfonamides (Antibiotic) Drug allergy (disorder) 08-02-19 10 [facility] Repository (4 sources) Sulfamethoxazole; Translations: [sulfamethoxazole ] Drug Allergy Cutaneous eruption (morphologic abnormality) [facility] Repository (2 sources) Sulfur; Translations: [Sulfur] Drug Allergy [facility] Repository (11 sources) Sulfonamides (Antibiotic); Translations: [Sulfa (Sulfonamide Antibiotics)] Allergy to substance 07-17-[address] [facility] (17 sources) Sulfacetamide Drug Allergy 09-19-19 23 Gravitant Other (2 sources) metroNIDAZOLE Drug Allergy 09-19-19 23 Dyspepsia [facility] (1 source) Sulfacetamide Drug Allergy 07-01-[address] [facility] Repository Medications Current Medications Medication Drug [...] for 30 days Dec, Active Start: 03-08-2022 [place] 325 mg-5 mg oral tablet 1 tab(s), Oral, q4hr for pain, 12 tab(s), Refill(s) 0, [facility]/pharmacy #[id number], 172, cm, 03/08/22 13:49:00 EST, [...] Daily, # 30 tab(s), Refills(s) 0, Pharmacy: [facility]/pharmacy #[id number], 172.7, cm, 07/26/22 11:43:00 EDT, [...] 06/19/2017 9:00:00 take 1 capsule by mo [facility] every twenty-four hours Vitamin D3 50 MCG [...] 1:00am Start: 06-19-2017 take 1 tablet by [facility] once daily Pantoprazole Sodium Tablet Delayed [...] Start: 07-26-2022 take 2 tablets by mo [facility] every eight hours as needed for muscle spasms tiZANidine 4 mg Tab 8 mg = 2 tab(s), Oral, q8hr, PRN Spasm, Refills(s) 0 Start Date: 07/26/22 Status: Ordered Start: 06-19-2017 take 2 tablets by mo [facility] twice daily Zanaflex Tablet 4 MG 2 tablet Tablet Oral GIVE 2 TABS (8MG) BY MOUTH TWICE DAILY FOR MUSCLOSKELETAL 06/19/2017 9:00:00 take 1 capsule by [facility] once daily at bedtime tiZANidine HCl 4 mg capsule Take 4 mg by mouth daily at bedtime. 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 Adjunct Faculty Instructor: [facility] Transcribe Date/Time: Aug 08 2023 9:09P Dictated by : HARRY JONES MD This examination was interpreted and the report reviewed and electronically signed by: HARRY JONES MD on Aug 08 2023 9:14PM EST [id number] Normal [facility] BI MAMMOGRAM SCREENING TOMOS YNTHESIS BILATERALon [...] IS VERY IMPORTANT TO YOUR HEALTH. THE [employer] GUIDELINES RECOMMEND THAT WOMEN 40 [...] DATE OF EXAM: Jul 13 2023 11:11AM [facility] 0508 - CT LUMBAR SPINE WO [...] are 5 lumbar-type vertebrae. Anatomic variant: None. Guest Services Officer (topogram) images: Left femoroacetabular arthroplasty. Alignment: Mild [...] any questions regarding this interpretation, please call [phone]. If you are unable to reach us at the number above, please feel free to contact [facility] eRadiology at [phone]. [id number] Normal [facility] CT Lumbar spine WO contrasto n 07-13-2023 [facility] CNOVon 06-24-2023 CNOV Office Visit (SPNSMN ) LEELEE CEDILLO ([id number]) 1950 F Date Time Provider Department 06/24/23 [...] Ghanshyam Lombardi MD Referring Provider: SARA VICK [[id number]] Allergies As of Date: 06/24/2023 Noted Allergy Reaction SULFA (SULFONAMIDE ANTIBIOTICS) 07/16/2006 Date Reviewed: 06/24/2023 Reviewed by: Kaur Manzano MA - Fully Assessed Reason for Visit: New Patient [172] Primary Visit Diagnosis:Adjacent segment disease of lumbar spine with history of fusion procedure [M51.36, Z98.1] Other Visit Diagnosis:Chronic bilateral low back pain with bilateral sciatica [M54.42, M54.41, G89.29] Order(s):MRI THORACIC SPINE WO IVCON [[id number]] Order #: [id number] FUTURE CT LUMBAR SPINE WO IVCON [[id number]] Order #: [id number] FUTURE Prescriptions as of 06/24/2023 - pantoprazole [...] Status:Closed by GHANSHYAM LOMBARDI on 06/24/23 Normal [facility] XR LUMBAR 4V AP/LAT/ FLEX/EX Ton [...] Number of different views (projections): 2 (accession [id number]), 4 (accession [id number]) COMPARISON: Radiographs dated 09/23/2021 RESULT: Counting reference: [...] changes with no evidence of hardware complication. Adjunct Faculty Instructor: [employer] Transcribe Date/Time: Jun 24 2023 12:52P Dictated by : LATASHA QUEZADA MD This examination was interpreted and the report reviewed and electronically signed by: LATASHA QUEZADA MD on Jun 24 2023 12:55PM EST [id number] Normal [facility] XR Lumbar spine Views W flex ion and W extensionon 06-24-2023 [facility] XR SCOLIOSIS 2V PA STAND/LAT on [...] Number of different views (projections): 2 (accession [id number]), 4 (accession [id number]) COMPARISON: Radiographs dated 09/23/2021 RESULT: Counting reference: [...] changes with no evidence of hardware complication. Adjunct Faculty Instructor: [employer] Transcribe Date/Time: Jun 24 2023 12:52P Dictated by : LATASHA QUEZADA MD This examination was interpreted and the report reviewed and electronically signed by: LATASHA QUEZADA MD on Jun 24 2023 12:55PM EST [id number] Normal [facility] XR Thoracic and lumbar spine Views for scoliosis W standingon 06-24-2023 [facility] US arterial pvr rest Vito US arterial pvr rest [place] [address] Ultrasound Report Signed Patient: Leelee Cedillo MR#: [id number] 56 : 1950 Acct:[id number] Age/Sex: 72 / F ADM Date: 05/22/23 [...] Drake Bates M.D.05/25/2023 10:58 AM Dictation Location: [place] [address] Tech: Katy Leone Transcribed By: LISBETH 05/25/23 1058 Dictated By: Drake Bates MD 05/25/23 1057 Signed By: 05/25/23 1058 Normal [facility] US venous duplex LE BIon US venous duplex LE BI [facility] [place] [address] Ultrasound Report Signed Patient: Leelee Cedillo MR#: [id number] 56 : 1950 Acct:[id number] Age/Sex: 72 / F ADM Date: 05/22/23 [...] vein has previously been stripped. No significant records analysis manager incompetence is noted. The lesser saphenous [...] mm in diameter. Impression dictated by: Drake Baets M.D.05/25/2023 10:57 AM Dictation Location: [place] [address] Tech: Katy Leone Transcribed By: LISBETH 05/25/23 1057 Dictated By: Drake Bates MD 05/25/23 1055 Signed By: 05/25/23 1057 Normal [facility] ED Note-Physicianon 11-26-19 ED Note-Physician Normal [facility] Comment on above: Result Comment: Elec tronically Signed By: Sathya De La O PA-C\.br\Date and Time Signed: 11/22/22 14:13 EDT\.br\Electronically Co-Signed By: Flavio Castillo MD\.br\Date and Time Co-Signed: 11/25/22 13:23 EDT Consent for Treatmenton Consent for Treatment [id number]#1.0 0CD:127 Normal [facility] Discharge Instructionson Discharge Instructions [id number]#1. 00CD:127 Normal [facility] ED Clinical Summaryon 2022 ED Clinical Summary Normal Stefania wu [facility] ED Patient Education Noteon 11-22-2022 ED Patient Education Note Normal [facility] ED Patient Summaryon 023 ED Patient Summary Normal [facility] Neurology Forms- Texton Neurology Forms- Text [id number]#1. 00CD:127 Normal [facility] EEGon 09-11-2022 EEG [facility] Comment on above: Result Comment: Elec tronically Signed By: Jonathan Powell DO\.br\Date and Time Signed: 09/11/22 10:41 EDT Consent for Treatmenton 08-19 Consent for Treatment [id number]#1.0 0CD:127 Normal [facility] Physician Orderon 09-03-2022 Physician Order [id number]#1.0 0CD:127 Normal [facility] VC CONSULT FOLLOWUPon 2022 VC CONSULT FOLLOWUP Patient: ITZEL CEDILLO Exam Date: 08/08/2022 : 1950 Gender:F Ordering : DR ALFRED UMAÑA M.D. Admission #: [id number] Family : Order #: [id number] CLICK HERE TO VIEW EXAM RADIOLOGY REPORT [...] Umaña MD on 08/08/2022 at 10:59 Normal [facility] EXT VENOUS LT LIMITEDon 0 08-08-2022 VC EXT VENOUS LT LIMITED Patient: LEELEE CEDILLO Exam Date: 08/08/2022 : 1950 Gender:F Ordering : DR ALFRED UMAÑA M.D. Admission #: [id number] Family : Order #: [id number] CLICK HERE TO VIEW EXAM RADIOLOGY REPORT [...] Umaña MD on 08/08/2022 at 09:43 Normal [facility] Coding Summary.on 07-29-2022 Coding Summary. Normal [facility] Insurance Correspondenceon 0 07-29-2022 Insurance Correspondence [id number]#1.0 0CD:127 Normal [facility] Insurance Correspondence Off iceon 07-29-2022 Insurance Correspondence Office [id number]#1. 00CD:127 Normal [facility] Discharge Instructionson Discharge Instructions [id number]#1. 00CD:127 Normal [facility] QhsH6xyk 07-28-2022 HbA1c (Bld) [Mass fraction] 5.3 % Normal <=5.9 [facility] Comment on above: Performed By: #### 2 [id number], 3523105, 0157726, 8923047, [id number], [id number] ####[facility] [address] [place] [address] Insurance Correspondenceon 0 07-28-2022 Insurance Correspondence [id number]#1. 00CD:127 Normal [facility] C. diff by PCRon 07-27-2022 Clostridium difficile by PCR Negative Normal Negative [facility] Comment on above: Order Comment: Order added by Discern Expert. Result Comment: This test result should be correlated with clinical presentations and medical history by a healthcare provider to determine its clinical significance. Performed By: #### 3 [id number], [id number], [id number] ####[facility] [address] [facility] [address] CDiff PCRon 07-27-2022 Cdiff Specimen Acceptable Acceptable Normal [facility] Comment on above: Performed By: #### 3 [id number], [id number], [id number] ####[facility] [address] [facility] [place] [address] Order Cancelled No, PCR to follow Normal Fi [facility] Comment on above: Performed By: #### 3 [id number], [id number], [id number] ####[facility] [address] [place] [id number] CHEMISTRYOrdered By: SYSTEM SYSTEM on 07-27-2022 Anion [...] Remisol Consultation Noteon 07-28-19 Consultation Note Normal [facility] Comment on above: Result Comment: Elec tronically Signed By: Rachel MEEHAN, Smita Reardon\.br\Date and Time Signed: 07/27/22 07:14 EDT\.br\Electronically Co-Signed By: Jonathan Powell DO\.br\Date and Time Co-Signed: 07/27/22 10:23 EDT EMS Documentationon 07-28-19 EMS Documentation Normal [facility] EMS Documentation Normal [facility] EMS Documentation Normal [facility] Enteric Panel by PCRon 07-27 C. coli+jejuni+upsaliens is DNA VIVIANA+non-probe Ql (Stl) Not detected Normal [facility] Comment on above: Result Comment: Test ing was performed utilizing reverse shipping packer (RT), polymerase chain reaction (PCR), and array [...] nulcleic acid test. Performed By: #### 3 [id number], [id number], [id number] ####[place] [address] [place] [address] E. coli stx1+stx2 genes VIVIANA+non-probe Ql (Stl) Negative Normal [facility] Comment on above: Performed By: #### 3 [id number], [id number], [id number] ####[place] [address] [place] [address] Enteric Panel Intrl QC Pass Normal [facility] Comment on above: Result Comment: Test ing was performed utilizing reverse shipping packer (RT), polymerase chain reaction (PCR), and array [...] 1 and 2. Performed By: #### 3 [id number], [id number], [id number] ####[place] [address] Norovirus genogroup I+II RNA VIVIANA+non-probe Ql (Stl) Not detected Normal [facility] Comment on above: Performed By: #### 3 [id number], [id number], [id number] ####[place] [address] Rotavirus A RNA VIVIANA+non-probe Ql (Stl) Not detected Normal [facility] Comment on above: Performed By: #### 3 [id number], [id number], [id number] ####[place] [address] S. enterica+bongori DNA VIVIANA+non-probe Ql (Stl) Not detected Normal [facility] Comment on above: Result Comment: This test result should be correlated with clinical presentations and medical history by a healthcare provider to determine its clinical significance. Performed By: #### 3 [id number], [id number], [id number] ####[place] [address] Shigella species+EIEC invasion plasmid antigen H ipaH gene VIVIANA+non-probe Ql (Stl) Not detected Normal [facility] Comment on above: Performed By: #### 3 [id number], [id number], [id number] ####[place] [address] V. cholerae+parahaemolyt icus+vulnificus DNA VIVIANA+non-probe Ql (Stl) Not detected Normal [facility] Comment on above: Performed By: #### 3 [id number], [id number], [id number] ####[facility] [address] [place] [address] Y. enterocolitica DNA VIVIANA+non-probe Ql (Stl) Not detected Normal [facility] Comment on above: Performed By: #### 3 [id number], [id number], [id number] ####[facility] [address] [place] [address] Free T4on 07-27-2022 Free T4 [Mass/Vol] 1.91 ng/dL High 0.58-1.64 [facility] Comment on above: Order Comment: Free T4 added by Discern Rule due to a TSH result of <0.34 or >5.60. Performed By: #### 2 461350, 7697316, 9687351, 3084095, [id number], 67675554 ####[facility] [address] [place] [address] HEMATOLOGYOrdered By: Tonya Martin on 07-27-2022 WBC corrected for nucl RBC Auto (Bld) [#/Vol] 7.8 E9/L Normal 4.0 - 11.0 E9/L [facility] HemeAutoSS Inpatient Clinical Summaryon 07-27-2022 Inpatient Clinical Summary Normal [facility] Inpatient Patient Summaryon 07-27-2022 Inpatient Patient Summary Normal [facility] Inpatient Patient Summary Normal [facility] Interdisciplinary Note - Oumar e Manageron 07-27-2022 Interdisciplinary Note - Machine Joint Cutter Normal [facility] Comment on above: Result Comment: Elec tronically Signed By: Tonya Matias.alicja\Date and Time Signed: 07/27/22 12:04 EDT Interdisciplinary Note - Pipe n 07-27-2022 Interdisciplinary Note - OT Normal [facility] Interdisciplinary Note - PTo n 07-27-2022 Interdisciplinary Note - PT PT eval completed; pt scores 16/24 on the AM-PAC 6-Clicks 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 Pt is able to safely perform bed <> chair transfers as she was doing prior to admission and has no further PT needs at this time. Normal [facility] Lipid Panelon 07-27-2022 Cholesterol in LDL [Mass/Vol] 91 mg/dL Normal <=129 [facility] Comment on above: Performed By: #### 2 349343, 5161778, 8162549, 2527496, 582370577, [id number] ####[facility] [address] [place] [address] Cholesterol [Mass/Vol] 160 mg/dL Normal 120-200 [facility] Comment on above: Performed By: #### 2 072426, 9197311, 8473544, 0382433, 307953963, 65819457 ####[facility] [address] [place] [address] Cholesterol in HDL [Mass/Vol] 52 mg/dL Invalid Interpretation Code [facility] Comment on above: Result Comment: HDL > or equal to 60 mg/dL: Low cardiovascular riskHDL < 40 mg/dL : High cardiovascular risk Performed By: #### 2 157465, 4556391, 4169801, 1698633, 130623301, 26741224 ####[facility] [address] [place] [address] Cholesterol in VLDL [Mass/Vol] 17 mg/dL Normal 7-40 [facility] Comment on above: Performed By: #### 2 719910, 3670588, 2222093, 9273654, 413368018, 88016510 ####[facility] [address] [place] [address] Triglyceride [Mass/Vol] 83 mg/dL Normal <=149 [facility] Comment on above: Performed By: #### 2 157963, 4870839, 2256818, 2415728, 042003281, 49131214 ####[facility] [address] [place] [address] Lyteson 07-27-2022 Anion gap [Moles/Vol] 9 mmol/L Normal 6-16 [facility] Comment on above: Performed By: #### 2 392301, 9932073, 7274199, 2729949, 121640223, 57241356 ####[facility] [address] [place] [address] Chloride [Moles/Vol] 106 mmol/L Normal 101-111 [facility] Comment on above: Performed By: #### 2 743042, 6425659, 9540314, 6482588, 212058093, 14272786 ####[facility] [address] [place] [address] CO2 [Moles/Vol] 26 mmol/L Normal 21-31 [facility] Comment on above: Performed By: #### 2 070574, 3188872, 9242564, 9891550, [id number], 08317297 ####[facility] [address] [place] [address] Potassium [Moles/Vol] 4.0 mmol/L Normal 3.5-5.3 [facility] Comment on above: Performed By: #### 2 625679, 6730054, 5215483, 2714566, 934557986, 81902422 ####[facility] [address] [place] [address] Sodium [Moles/Vol] 137 mmol/L Normal 135-145 [facility] Comment on above: Performed By: #### 2 153614, 2720705, 8011659, 7076830, 303489263, 38648955 ####[facility] [address] [place] [address] MRA Head w/o Contraston MRA Head w/o Contrast Normal [facility] MRI Brain w/o Contraston MRI Brain w/o Contrast Normal [facility] Monitor Recordon 07-27-2022 Monitor Record [id number]#1. 00CD:127 Normal [facility] Monitor Record [id number]#1. 00CD:127 Normal [facility] Patient Education - Texton 0 07-27-2022 Patient Education - Text Normal [facility] RAD - MRI Screening Formon 0 07-27-2022 RAD - MRI Screening Form [id number]#1. 00CD:127 Normal [facility] TSH With T4fr Reflexon 07-27 TSH Qn 0.16 m[IU]/L Low 0.34-5.60 [facility] Comment on above: Performed By: #### 2 741199, 0047071, 1370949, 1734701, 523982749, [id number] ####[facility] [address] [place] [address] Troponin 9 Hr.on 07-27-2022 Troponin I.cardiac [Mass/Vol] 6.70 pg/mL Low 10.10-27.10 [facility] Comment on above: Result Comment: The 95% CI (Confidence Interval) PPV (Positive Predictive Value) for myocardial infarction in females is 38 pg/mL, in males 51 pg/mL. The results should be used in conjunction with clinical conditions of myocardial infarction.(Access High Sensitivity Troponin I Instructions For Use, [employer], November 2017) Performed By: #### 1 [id number] ####[facility] [address] [place] [address] WBCon 07-27-2022 WBC corrected for nucl RBC Auto (Bld) [#/Vol] 7.8 E9/L Normal 4.0-11.0 [facility] Comment on above: Performed By: #### 2 252811, 5512906, 0007702, 4714061, 426873270, 52613566 ####[facility] [address] [place] [address] Auto Diffon 07-26-2022 Basophils/100 WBC (Bld) 0.5 % Normal 0.0-2.0 [facility] Comment on above: Order Comment: Order Added by Discern Expert. Performed By: #### 2 496292, 6584076, 8110191, 9288065, [id number], 83328405 ####[facility] [address] [place] [address] Basophils/Leukocytes Auto (Bld) [Pure # fraction] 0.1 E9/L Normal 0.0-0.2 [facility] Comment on above: Order Comment: Order Added by Discern Expert. Performed By: #### 2 951054, 5582164, 2063019, 7575994, 27808705, 27212523 ####[facility] [address] [place] [address] Eosinophils/100 WBC (Bld) 0.5 % Normal 0.0-8.0 [facility] Comment on above: Order Comment: Order Added by Discern Expert. Performed By: #### 2 045146, 1426066, 7843964, 4488283, 06522918, 14746888 ####[address] [address] Eosinophils/Leukocyte s Auto (Bld) [Pure # fraction] 0.1 E9/L Normal 0.0-0.5 [facility] Comment on above: Order Comment: Order Added by Ham Expert. Performed By: #### 2 636441, 7544590, 8133064, 6928462, 69973103, 14372095 ####[address] [address] Lymphocytes/100 WBC (Bld) 14.5 % Normal 14.0-50.0 [facility] Comment on above: Order Comment: Order Added by Ham Expert. Performed By: #### 2 290103, 9745974, 5134338, 2526678, 76732068, 08926068 ####[address] [address] Lymphocytes/Leukocyte s Auto (Bld) [Pure # fraction] 2.1 E9/L Normal 1.0-4.0 [facility] Comment on above: Order Comment: Order Added by Ham Expert. Performed By: #### 2 861321, 9126052, 5411932, 3096208, 51504766, 85863396 ####[address] [place] [address] Monocytes/100 WBC (Bld) 6.5 % Normal 4.0-14.0 [facility] Comment on above: Order Comment: Order Added by Discern Expert. Performed By: #### 2 583605, 5356305, 1585295, 8570612, 38633117, 18289686 ####[facility] [address] [place] [address] Monocytes/Leukocytes Auto (Bld) [Pure # fraction] 0.9 E9/L Normal 0.2-1.0 [facility] Comment on above: Order Comment: Order Added by Discern Expert. Performed By: #### 2 037057, 7523481, 2197406, 8051313, 72184448, 53421588 ####[facility] [address] [place] [address] Neutrophils/100 WBC (Bld) 78.0 % High 36.0-75.0 [facility] Comment on above: Order Comment: Order Added by Discern Expert. Performed By: #### 2 276952, 8354884, 6214444, 7395748, 19619124, 75540225 ####[facility] [address] [place] [address] Neutrophils/Leukocyte s Auto (Bld) [Pure # fraction] 11.4 E9/L High 2.0-7.5 [facility] Comment on above: Order Comment: Order Added by Discern Expert. Performed By: #### 2 766668, 4064432, 6841186, 4865675, 11150597, 12472111 ####[facility] [address] [place] [address] BMPon 07-26-2022 Creatinine [Mass/Vol] 0.8 mg/dL Normal 0.5-1.3 [facility] Comment on above: Performed By: #### 2 885544, 2625993, 3707081, 1695823, 66921979, 49629099 ####[facility] [address] [place] [address] Urea nitrogen [Mass/Vol] 11 mg/dL Normal 5-21 [facility] Comment on above: Performed By: #### 2 288577, 6407658, 9243177, 4529612, 27849155, 39830942 ####[facility] [address] [place] [address] Urea nitrogen/Creatinine [Mass ratio] 14 No Units Normal 10-20 [facility] Comment on above: Performed By: #### 2 660402, 6149342, 0817221, 9733953, 22584575, 21472540 ####[facility] [address] [place] [address] Anion gap [Moles/Vol] 13 mmol/L Normal 6-16 [facility] Comment on above: Performed By: #### 2 814477, 1240148, 7342862, 6721640, 80328950, 94230330 ####[facility] [address] [place] [address] Calcium [Mass/Vol] 9.3 mg/dL Normal 8.9-11.1 [facility] Comment on above: Performed By: #### 2 761536, 5810952, 6666057, 2139464, 99956941, 10170763 ####[facility] [address] [place] [address] Chloride [Moles/Vol] 101 mmol/L Normal 101-111 [facility] Comment on above: Performed By: #### 2 581190, 5194473, 3595114, 8001698, 39020562, 08503234 ####[facility] [address] [place] [address] CO2 [Moles/Vol] 27 mmol/L Normal 21-31 [facility] Comment on above: Performed By: #### 2 314749, 8380722, 9123922, 0801086, 55706182, 05349107 ####[facility] [address] [place] [address] Glucose [Mass/Vol] 88 mg/dL Normal 55-199 [facility] Comment on above: Result Comment: If t his glucose result represents a fasting glucose, interpretation should refer to the following reference range: 55-99 mg/dL Performed By: #### 2 094129, 7872380, 5984232, 8630462, 39785872, 08414207 ####[facility] [address] [place] [address] Potassium [Moles/Vol] 3.6 mmol/L Normal 3.5-5.3 [facility] Comment on above: Performed By: #### 2 002074, 0231598, 0261055, 1192175, 88337588, 68393577 ####[facility] [address] [place] [address] Sodium [Moles/Vol] 137 mmol/L Normal 135-145 [facility] Comment on above: Performed By: #### 2 743700, 4041733, 0720894, 9089949, 09792712, 45745197 ####[address] [address] CBC w/ Auto Diffon 3 Erythrocyte distribution width (RBC) [Ratio] 13.9 % Normal 10.9-14.2 [facility] Comment on above: Performed By: #### 2 628170, 4204498, 7484848, 7597394, 26306242, 83266030 ####[facility] [address] [place] [address] Hematocrit (Bld) [Volume fraction] 47.0 % High 34.0-46.0 [facility] Comment on above: Performed By: #### 2 188181, 3702152, 5768985, 3523660, 59189473, 59606321 ####[facility] [address] [place] [address] Hemoglobin (Bld) [Mass/Vol] 15.3 g/dL Normal 12.0-16.0 [facility] Comment on above: Performed By: #### 2 579957, 3606054, 0341643, 0643729, 65786152, 52538723 ####[facility] [address] [place] [address] MCH (RBC) [Entitic mass] 29.2 pg Normal 27.0-34.0 [facility] Comment on above: Performed By: #### 2 769678, 3275679, 2521625, 0512235, 73861650, 61726023 ####[address] [address] MCHC (RBC) [Mass/Vol] 32.7 g/dL Normal 31.4-36.0 [facility] Comment on above: Performed By: #### 2 884578, 6919699, 4632926, 1001731, 91921684, 77299742 ####[address] [address] MCV (RBC) [Entitic vol] 89.3 fL Normal 80.0-100.0 [facility] Comment on above: Performed By: #### 2 411987, 5762827, 2834244, 2472402, 85754729, 58225982 ####[address] [address] Platelet mean volume (Bld) [Entitic vol] 6.7 fL Normal 6.4-10.8 [facility] Comment on above: Performed By: #### 2 056025, 0935510, 6132683, 9637897, 98822699, 83309567 ####[address] [address] Platelets (Bld) [#/Vol] 324.0 E9/L Normal 150.0-500.0 [facility] Comment on above: Performed By: #### 2 771176, 4266124, 9461705, 3322822, 56072567, 43175114 ####[address] [address] RBC (Bld) [#/Vol] 5.3 E12/L Normal 4.3-5.9 [facility] Comment on above: Performed By: #### 2 928237, 7930069, 0578152, 0414494, 02703427, 54209041 ####[facility] [address] [place] [address] WBC corrected for nucl RBC Auto (Bld) [#/Vol] 14.6 E9/L High 4.0-11.0 [facility] Comment on above: Performed By: #### 2 650101, 2279377, 9443582, 6421177, 80739414, 15916695 ####[facility] [address] [place] [address] CHEMISTRYOrdered By: SYSTEM SYSTEM on 07-26-2022 Troponin [...] mg/dL Normal 1.3 - 2 .4 mg/dL [facility] Remisol Potassium [Moles/Vol] 3.6 mmol/L Normal 3.5 - 5.3 mmol/L [facility] Remisol Sodium [Moles/Vol] 137 mmol/L Normal 135 - 145 mmol/L [facility] Remisol Urea nitrogen [Mass/Vol] 11 mg/dL Normal 5 - 21 mg/dL [facility] Remisol Urea nitrogen/Creatinine [Mass ratio] 14 mg/mg Normal 10 - 20 [facility] Remisol CHEMISTRYOrdered By: Lab ROP User on 07-26-2022 Glucose [Mass/Vol] 106 mg/dL High 55 - 99 mg/dL [facility] POC Subsection Comment on above: Result Comment: Parker wills RN/ POC Device SN [id number] Invalid Interpretation Code [facility] POC Subsection POC User ID [id number] Invalid Interpretation Code [facility] POC Subsection POC Username SHANKAR ABARCA Invalid Interpretation Code [facility] POC Subsection CT Head or Brain w/o Contras ton 07-26-2022 CT Head or Brain w/o Contrast Normal [facility] Capillary Glucose POCon Glucose [Mass/Vol] 106 mg/dL High 55-99 [facility] Comment on above: Result Comment: Parker wills RN/ Performed By: #### 2 [id number] ####[facility] [address] [place] [address] Consent for Treatmenton Consent for Treatment [id number] 0CD:127 Normal [facility] ED Clinical Summaryon 2022 ED Clinical Summary Normal [facility] ED Note-Physicianon 07-27-19 ED Note-Physician Normal [facility] Comment on above: Result Comment: Elec tronically Signed By: Yaritza Cedeño PA-C\.br\Date and Time Signed: 07/26/22 14:17 EDT\.br\Electronically Co-Signed By: Lance Wu M.D.\.br\Date and Time Co-Signed: 07/26/22 15:36 EDT ED Patient Education Noteon 07-26-2022 ED Patient Education Note Normal [facility] ED Patient Summaryon 023 ED Patient Summary Normal [facility] HEMATOLOGYOrdered By: SYSTEM SYSTEM on 07-26-2022 [...] 14.6 E9/L High 4.0 - 11.0 E9/L [facility] HemeAutoSS Magnesiumon 07-26-2022 Magnesium [Mass/Vol] 2.0 mg/dL Normal 1.3-2.4 [facility] Comment on above: Performed By: #### 2 243821, 3981734, 3567390, 2902284, 77071450, 29909989 ####[facility] [address] [place] [address] Monitor Recordon 07-26-2022 Monitor Record [id number]:127 Normal [facility] Pre-Arrival Noteon 3 Pre-Arrival Note Normal [facility] Troponin 0 Hr.on 07-26-2022 Troponin I.cardiac [Mass/Vol] 6.60 pg/mL Low 10.10-27.10 [facility] Comment on above: Order Comment: pt st ill in imaging, will check back later [email or web address] 07/26/2022 12:32:06 EDT Result Comment: The 95% CI (Confidence Interval) PPV (Positive Predictive Value) for myocardial infarction in females is 38 pg/mL, in males 51 pg/mL. The results should be used in conjunction with clinical conditions of myocardial infarction.(Access High Sensitivity Troponin I Instructions For Use, Christy Larry, November 2017) Performed By: #### 2 880791, 5868815, 8058499, 6905928, 00167433, 27889361 ####[facility] [address] [place] [address] Troponin 3 Hr.on 07-26-2022 Troponin I.cardiac [Mass/Vol] 6.00 pg/mL Low 10.10-27.10 [facility] Comment on above: Result Comment: The 95% CI (Confidence Interval) PPV (Positive Predictive Value) for myocardial infarction in females is 38 pg/mL, in males 51 pg/mL. The results should be used in conjunction with clinical conditions of myocardial infarction.(Access High Sensitivity Troponin I Instructions For Use, [employer], November 2017) Performed By: #### 1 2149312 ####[address] [address] Troponin 6 Hr.on 07-26-2022 Troponin I.cardiac [Mass/Vol] 5.40 pg/mL Low 10.10-27.10 [facility] Comment on above: Result Comment: The 95% CI (Confidence Interval) PPV (Positive Predictive Value) for myocardial infarction in females is 38 pg/mL, in males 51 pg/mL. The results should be used in conjunction with clinical conditions of myocardial infarction.(Access High Sensitivity Troponin I Instructions For Use, [employer], November 2017) Performed By: #### 1 1224476 ####[address] [address] UA With Cult Reflexon 2022 Bacteria LM Ql (Urine sed) TRACE Normal Trace [facility] Comment on above: Performed By: #### 1 9664679 ####[address] [address] Bilirubin Ql (U) Negative Normal Negative [facility] Comment on above: Performed By: #### 1 7686085 ####[address] [address] Clarity (U) CLEAR Normal Clear [facility] Comment on above: Performed By: #### 1 4250789 ####[address] [address] Color (U) YELLOW Normal Yellow [facility] Comment on above: Performed By: #### 1 6747870 ####[facility] [address] [place] [address] Epithelial cells.squamous LM.HPF (Urine sed) [#/Area] 3-4 Normal 0-2 [facility] Comment on above: Performed By: #### 1 6958024 ####[address] [place] [address] Glucose Test strip (U) [Mass/Vol] Negative Normal Negative [facility] Comment on above: Performed By: #### 1 0389195 ####[address] [address] Hemoglobin Ql (U) Negative Normal Negative [facility] Comment on above: Performed By: #### 1 7244100 ####[address] [address] Ketones (U) [Mass/Vol] Negative Normal Negative [facility] Comment on above: Performed By: #### 1 2549341 ####[address] [address] Goss.plasma/Lithiu m.RBC (Bld) [Mass ratio] 0-3 Normal 0-3 [facility] Comment on above: Performed By: #### 1 3781928 ####[address] [address] Nitrite Ql (U) Negative Normal Negative [facility] Comment on above: Performed By: #### 1 2240667 ####[address] [address] pH (U) 6.5 [pH] Invalid Interpretation Code 5.0-9.0 [facility] Comment on above: Performed By: #### 1 6072465 ####[address] [address] Protein (U) [Mass/Vol] Negative Normal Negative [facility] Comment on above: Performed By: #### 1 4950039 ####[address] [address] Specific gravity (U) [Rel density] <=1.005 Invalid Interpretation Code 1.005-1.030 [facility] Comment on above: Performed By: #### 1 4157889 ####[facility] [address] [place] [address] Type of Urine collection method Clean Catch Normal [facility] Comment on above: Performed By: #### 1 8036025 ####[facility] [address] Urobilinogen Qn (U) 0.2 {Malu'U}/dL Normal 0.0-1.0 [facility] Comment on above: Performed By: #### 1 7148231 ####[facility] [address] [place] [address] WBC Auto Ql (U) TRACE Abnormal Negative [facility] Comment on above: Performed By: #### 1 7751831 ####[place] [address] WBC LM.HPF (Urine sed) [#/Area] 0-5 Normal 0-5 [facility] Comment on above: Performed By: #### 1 0942100 ####[place] [address] URINALYSISOrdered By: Katerina Parker on 07-26-2022 Bacteria [...] PM) Normal Negative [facility] UA Auto SS Goss.plasma/Lithiu m.RBC (Bld) [Mass ratio] 0-3 /HPF Normal [...] FT UA Auto SS Urobilinogen Qn (U) 0.0255441 {Malu'U}/dL Normal 0.0 - 1.0 EU/dL [facility] UA Auto SS WBC Auto Ql (U) Trace *ABN* (07/26/22 4:49 PM) Invalid Interpretation Code Negative [facility] UA Auto SS WBC LM.HPF (Urine sed) [#/Area] 0-5 /HPF Normal 0-5/HPF [facility] UA Auto SS XR Chest Single Viewon 07-26 XR Chest Single View Normal [facility] eGFRon 07-26-2022 GFR/1.73 sq M.predicted among blacks MDRD (S/P/Bld) [Vol rate/Area] mL/min/{1.73_m2} Normal >=59 [facility] Comment on above: Order Comment: Order added by Discern Expert. Result Comment: eGFR is race adjusted. AA=. Performed By: #### 2 711596, 3068896, 8580879, 2798386, 59226003, 88814127 ####[facility] [address] [place] [address] GFR/1.73 sq M.predicted among non-blacks MDRD (S/P/Bld) [Vol rate/Area] mL/min/{1.73_m2} Normal >=59 [facility] Comment on above: Order Comment: Order added by Discern Expert. Result Comment: Cell Maker gina kidney disease could be indicated at eGFR's of less than 60 mL/min/1.73m2. Kidney failure is indicated at less than 15 mL/min/1.73m2. Performed By: #### 2 177146, 5723888, 2160432, 9581924, 82611801, 52499969 ####[facility] [address] [place] [address] SURGICAL PATH REPORTon 07-25 SURGICAL PATH REPORT [facility] Department of Pathology [address] [place] [id number] Name: LEELEE CEDILLO : [address] [facility] [id number] Number: Gender [facility] : n: Admit 71 years Attending ADELE FLEMING Age: Provider: Ordering ADELE FLEMING Provider: Consulti Surgical Pathology Report ng: ACCESSION: COLLECTED DATE/TIME: RECEIVED DATE/TIME: PATHOLOGIST: [id number] 07/24/2022 12:16 EDT 07/24/2022 12:16 EDT MICHELINE STERN MD Final Diagnosis Report for THE [facility], [place] RIGHT ANKLE, PUNCH BIOPSY: - FRAGMENT [...] MP:alexa 07/24/2022 Tissue pathology report for: [facility], [address] [place] [address]; ____ ____ Print 07/25/2022 15:48 EDT Number: Date/Time: [facility] Department of Pathology [address] [place], [place] [id number] Name: LEELEE CEDILLO : 1950 [employer] [id number] Number: Gender Female [employer] BASILIOFrida OSWALDO : n: Admit 71 years Attending ADELE FLEMING Age: Provider: Ordering ADELE FLEMING Provider: Consulti Surgical Pathology Report ng: ACCESSION: COLLECTED DATE/TIME: RECEIVED DATE/TIME: PATHOLOGIST: [id number] 07/24/2022 12:16 EDT 07/24/2022 12:16 EDT LEENA RUFF, MICHELINE Gross Description PATHOLOGY SERVICES PROVIDED BY [employer] (CLIA #[id number]) in cooperation with [facility] at [address] [place] [address] ( CLIA #[id number]) Microscopic Diagnosis The final diagnosis is based on a microscopic exam of agricultural sales representative sections. Codes CPT CODE: 07505 ____ ____ Print 07/25/2022 15:48 EDT Number: Date/Time: [facility] Comment on above: Performed By: #### 9 [id number] #### [facility] [address] [place] [address] Wildlife Conservation Officer: Jared Oh MD POINT OF CARE GLUCOSEon 04-0 Glucose [Mass/Vol] 114 mg/dL Critically high 74-106 [facility] Comment on above: Performed By: #### P OCGLUC #### [facility] [address] [address] [address] Salvador Yung Glucose [Mass/Vol] 112 mg/dL Critically high 74-106 [facility] Comment on above: Performed By: #### P OCGLUC #### [facility] [address] [place] [address] [address] Salvador Yung EMS Documentationon 07-21-19 EMS Documentation Normal [facility] Covid-19 PCR (CVDTBH)on 06-20 SARS-CoV-2 (COVID-19) RNA VIVIANA+probe Ql (Unsp spec) Not detected Normal NOT DETECTED [facility] Comment on above: Result Comment: This test is not yet approved or cleared by the [place] FDA. When there are no FDA-approved or cleared tests available, and other criteria are met, FDA can make tests available under an emergency access mechanism called an Emergency Use Authorization (EUA). The EUA for this test is supported by the [place] of Health and Human Service's (HHS's) declaration [...] SARS-CoV-2. Performed By: #### C VDTBH #### [facility] [address] [place], [place] [address] Dr. Salvador Yung PROF CHEM 8 (BAS METB)on Anion gap [Moles/Vol] 12.0 mmol/L Normal [facility] Comment on above: Performed By: #### B MP #### [facility] [address] [address] [address] Salvador Yung Calcium [Mass/Vol] 9.4 mg/dL Normal 8.5-10.1 [facility] Comment on above: Performed By: #### B MP #### [facility] [address] [place] [address] [address] Salvador Yung Chloride [Moles/Vol] 100 mmol/L Normal 98-[address] [facility] Comment on above: Performed By: #### B MP #### [facility] [address] [place] [address] [address] Salvador Yung CO2 [Moles/Vol] 29.8 mmol/L Normal 21.0-32.0 [facility] Comment on above: Performed By: #### B MP #### [facility] [address] [place] [address] [address] Salvador Yung Creatinine [Mass/Vol] 0.91 mg/dL Normal 0.55-1.02 [facility] Comment on above: Performed By: #### B MP #### [facility] [address] [place] [address] [address] Salvador Yung EGFR-AF BHUTANESE >60 Normal >=60 [facility] Comment on above: Performed By: #### B MP #### [facility] [address] [place] [address] [address] Salvador Yung EGFR-NON AF BHUTANESE >60 Normal >=[address] [facility] Comment on above: Performed By: #### B MP #### [facility] [address] [place] [address] [address] Salvador Yung Glucose [Mass/Vol] 82 mg/dL Normal 74-106 [facility] Comment on above: Performed By: #### B MP #### [facility] [address] [place] [address] [address] Salvador Yung Potassium [Moles/Vol] 3.8 mmol/L Normal 3.5-5.1 [facility] Comment on above: Performed By: #### B MP #### [facility] [address] [place] [address] [address] Salvador Yung Sodium [Moles/Vol] 138 mmol/L Normal 136-145 [facility] Comment on above: Performed By: #### B MP #### [facility] [address] [place] [address] [address] Salvador Yung Urea nitrogen [Mass/Vol] 12.0 mg/dL Normal 7.0-18.0 [facility] Comment on above: Performed By: #### B MP #### [facility] [address] [address] [address] Salvador Yung Urea nitrogen/Creatinine [Mass ratio] 13.2 mg/mg Normal [facility] Comment on above: Performed By: #### B MP #### [facility] [address] [address] [address] Salvador Yung VC INJ SCL JESSICA SOFTWARE APPLICATION TESTER VEINSon 0 07-01-2022 VC INJ SCL JESSICA SOFTWARE APPLICATION TESTER VEINS Patient: LEELEE CEDILLO Exam Date: 07/01/2022 : 1950 Gender:F Ordering : DR ALFRED UMAÑA M.D. Admission #: [id number] Family : Order #: [id number] CLICK HERE TO VIEW EXAM RADIOLOGY REPORT [...] Lobato M.D. on 07/01/2022 at 15:22 Normal [facility] VC CONSULT FOLLOWUPon 2022 VC CONSULT FOLLOWUP Patient: ITZEL CEDILLO Exam Date: 06/19/2022 : 1950 Gender:F Ordering : DR ALFRED UMAÑA M.D. Admission #: [id number] Family : Order #: [id number] CLICK HERE TO VIEW EXAM RADIOLOGY REPORT [...] Umaña MD on 06/19/2022 at 14:17 Normal [facility] VC EXT VENOUS LT LIMITEDon 0 06-19-2022 VC EXT VENOUS LT LIMITED Patient: LEELEE CEDILLO Exam Date: 06/19/2022 : 1950 Gender:F Ordering : DR ALFRED UMAÑA M.D. Admission #: [id number] Family : Order #: [id number] CLICK HERE TO VIEW EXAM RADIOLOGY REPORT [...] Umaña MD on 06/19/2022 at 14:15 Normal [facility] VC INJ FOAM SCLERO W US MLTI on 06-13-2022 VC INJ FOAM SCLERO W US MLTI Patient: LEELEE CEDILLO Exam Date: 06/13/2022 : 1950 Gender:F Ordering : DR ALFRED UMAÑA M.D. Admission #: [id number] Family : Order #: [id number] CLICK HERE TO VIEW EXAM RADIOLOGY REPORT [...] duple (more content not included)... Normal [facility] VC CONSULT FOLLOWUPon 2022 VC CONSULT FOLLOWUP Patient: ITZEL CEDILLO Exam Date: 06/10/2022 : 1950 Gender:F Ordering : DR ALFRED UMAÑA M.D. Admission #: [id number] Family : Order #: [id number] CLICK HERE TO VIEW EXAM RADIOLOGY REPORT [...] Lobato M.D. on 06/10/2022 at 12:36 Normal [facility] VC EXT VENOUS RT LIMITEDon 0 06-10-2022 VC EXT VENOUS RT LIMITED Patient: LEELEE CEDILLO Exam Date: 06/10/2022 : 1950 Gender:F Ordering : DR ALFRED UMAÑA M.D. Admission #: [id number] Family : Order #: [id number] CLICK HERE TO VIEW EXAM RADIOLOGY REPORT [...] Lobato M.D. on 06/10/2022 at 12:33 Normal [facility] VC INJ FOAM SCLERO W US MLTI on 06-03-2022 VC INJ FOAM SCLERO W US MLTI Patient: LEELEE CEDILLO Exam Date: 06/03/2022 : 1950 Gender:F Ordering : DR ALFRED UMAÑA M.D. Admission #: [id number] Family : Order #: [id number] CLICK HERE TO VIEW EXAM RADIOLOGY REPORT PROCEDURE: VEIN CENTER INJECTION FOAM SCLEROSING SOLUTION WITH ULTRASOUND MULTIPLE VEINS COMPARISON: None. Pre-operative Diagnosis: CEAP class C6 venous insufficiency with pain, tenderness, edema and incompetent right small saphenous vein and records analysis manager vein, incompetent varicose veins, venous insufficiency right leg secondary to venous incompetence Post-operative Diagnosis: CEAP class C6 venous insufficiency with pain, tenderness, edema and incompetent right small saphenous vein and records analysis manager vein, incompetent varicose veins, venous insufficiency [...] l (more content not included)... Normal [facility] VC CONSULT FOLLOWUPon 2022 VC CONSULT FOLLOWUP Patient: ITZEL CEDILLO Exam Date: 05/28/2022 : 1950 Gender:F Ordering : DR ALFRED UMAÑA M.D. Admission #: [id number] Family : Order #: [id number] CLICK HERE TO VIEW EXAM RADIOLOGY REPORT [...] Umaña MD on 05/28/2022 at 11:44 Normal [facility] VC EXT VENOUS RT LIMITEDon 0 05-28-2022 VC EXT VENOUS RT LIMITED Patient: LEELEE CEDILLO Exam Date: 05/28/2022 : 1950 Gender:F Ordering : DR ALFRED UMAÑA M.D. Admission #: [id number] Family : Order #: [id number] CLICK HERE TO VIEW EXAM RADIOLOGY REPORT [...] extends to distal lower leg. Thrombus in records analysis manager distal medial lower leg 2.8 mm [...] MD on 05/28/2022 at 11:[address] [facility] CBC AUTO DIFFon 05-21-2022 BASO # 0.1 103/ul Normal 0.0-0.[address] [facility] Comment on above: Performed By: #### C BC #### [facility] [address] [address] [address] Salvador Yung Basophils/100 WBC (Bld) 0.6 % Normal 0.2-2.[address] [facility] Comment on above: Performed By: #### C BC #### [facility] [address] [place] [address] Dr. Salvador Yung EO # 0.1 103/ul Normal 0.0-0.[address] [facility] Comment on above: Performed By: #### C BC #### [facility] [address] [place] [address] Dr. Salvador Yung Eosinophils/100 WBC (Bld) 0.6 % Critically low 0.9-7.[address] [facility] Comment on above: Performed By: #### C BC #### [facility] [address] [place] [address] Dr. Salvador Yung Erythrocyte distribution width (RBC) [Ratio] 12.4 % Normal 11.0-15.[address] [facility] Comment on above: Performed By: #### C BC #### [facility] [address] [place] [address] Dr. Salvador Yung Hematocrit (Bld) [Volume fraction] 43.1 % Normal 36.0-48.[address] [facility] Comment on above: Performed By: #### C BC #### [facility] [address] [place] [address] Dr. Salvador Yung Hemoglobin (Bld) [Mass/Vol] 13.8 g/dL Normal 12.0-16.[address] [facility] Comment on above: Performed By: #### C BC #### [facility] [address] [place] [address] Dr. Salvador Yung IG # 0.06 10e3/ul Critically high 0.00-0.03 [facility] Comment on above: Performed By: #### C BC #### [facility] [address] [place] [address] Dr. Salvador Yung IG % 0.7 % Critically high 0.0-0.5 [facility] Comment on above: Performed By: #### C BC #### [facility] [address] [place] [address] Dr. Salvador Yung LYMPH # 1.7 103/ul Normal 1.2-3.8 [facility] Comment on above: Performed By: #### C BC #### [facility] [address] [place] [address] Dr. Salvador Yung Lymphocytes/100 WBC (Bld) 20.2 % Critically low 20.5-60.0 [facility] Comment on above: Performed By: #### C BC #### [facility] [address] [place] [address] Dr. Salvador Yung MANUAL DIFF REQ NO Normal [facility] Comment on above: Performed By: #### C BC #### [facility] [address] [place] [address] Dr. Salvador Yung MCH (RBC) [Entitic mass] 30.1 pg Normal 26.7-34.0 [facility] Comment on above: Performed By: #### C BC #### [facility] [address] [place] [address] Dr. Salvador Yung MCHC (RBC) [Mass/Vol] 32.0 g/dL Normal 29.9-35.[address] [facility] Comment on above: Performed By: #### C BC #### [facility] [address] [place] [address] Dr. Salvador Yung MCV (RBC) [Entitic vol] 93.9 fL Normal 81.0-99.0 [facility] Comment on above: Performed By: #### C BC #### [facility] [address] [place] [address] Dr. Salvador Yung MONO # 0.5 103/ul Normal 0.3-0.8 [facility] Comment on above: Performed By: #### C BC #### [facility] [address] [place] [address] Dr. Salvador Yung Monocytes/100 WBC (Bld) 6.1 % Normal 1.7-12.0 [facility] Comment on above: Performed By: #### C BC #### [facility] [address] [place] [address] Dr. Salvador Yung NEUT # 6.1 103/ul Normal 1.4-6.[address] [facility] Comment on above: Performed By: #### C BC #### [facility] [address] [place] [address] Dr. Salvador Yung Neutrophils/100 WBC (Bld) 71.8 % Normal 43.0-75.0 [facility] Comment on above: Performed By: #### C BC #### [facility] [address] [place] [address] Dr. Salvador Yung Platelet mean volume (Bld) [Entitic vol] 8.2 fL Critically low 9.5-13.5 [facility] Comment on above: Performed By: #### C BC #### [facility] [address] [place] [address] Dr. Salvador Yung PLT 246 103/ul Normal 150-[address] [facility] Comment on above: Performed By: #### C BC #### [facility] [address] [place] [address] Dr. Salvador Yung RBC 4.59 106/ul Normal 4.20-5.[address] [facility] Comment on above: Performed By: #### C BC #### [facility] [address] [place] [address] Dr. Salvador Yung WBC 8.5 103/ul Normal 4.0-11.[address] [facility] Comment on above: Performed By: #### C BC #### [facility] [address] [place] [address] Dr. Salvador Yung FREE T3on 05-21-2022 FREE T3 2.14 pg/mlL Critically low 2.18-3.98 [facility] Comment on above: Performed By: #### P OCGLUC #### [facility] [address] [address] [address] Salvador Yung GLYCOHEMOGLOBIN A1Con 2022 ADA RECOMMENDATION SEE BELOW Normal [facility] Comment on above: Result Comment: ADA RECOMMENDED LIMIT 4.0 - 6.0 ADA THERAPEUTIC TARGET < 7.0 ACTION SUGGESTED > 7.0 Performed By: #### P OCGLUC #### [facility] [address] [address] [address] Salvador Yung Glucose [Mass/Vol] 100 mg/dL Normal [facility] Comment on above: Performed By: #### P OCGLUC #### [facility] [address] [place] [address] Dr. Salvador Yung HbA1c (Bld) [Mass fraction] 5.1 % Normal 4.5-6.2 [facility] Comment on above: Performed By: #### P OCGLUC #### [facility] [address] [place] [address] Dr. Salvador Yung LIPID PROFILEon 05-21-2022 CHOL-HDL RATIO NORM SEE BELOW Normal [facility] Comment on above: Result Comment: 3.3 - 4.4 LOW RISK 4.4 - 7.1 AVERAGE RISK 7.1 - 11.0 MODERATE RISK >11.0 HIGH RISK Performed By: #### P OCGLUC #### [facility] [address] [address] [address] Salvador Yung Cholesterol [Mass/Vol] 164 mg/dL Normal <=200 [facility] Comment on above: Performed By: #### P OCGLUC #### [facility] [address] [address] [address] Salvador Yung Cholesterol in HDL [Mass/Vol] 61 mg/dL Critically high 40-60 [facility] Comment on above: Performed By: #### P OCGLUC #### [facility] [address] [address] [address] Salvador Yung Cholesterol in LDL [Mass/Vol] 90.2 mg/dL Normal [facility] Comment on above: Performed By: #### P OCGLUC #### [facility] [address] [address] [address] Salvador Yung Cholesterol.total/Cho lesterol in HDL [Mass ratio] 2.7 {ratio} Normal [facility] Comment on above: Performed By: #### P OCGLUC #### [facility] [address] [address] [address] Salvador Yung HDL NORMAL > or = 60 mg/dl - LO W CARDIOVASCULAR RISK <40 mg/dl - HIGH CARDIOVASCULAR RISK Normal [facility] Comment on above: Performed By: #### P OCGLUC #### [facility] [address] [address] [address] Salvador Yung LDL CALC NORMAL SEE BELOW Normal [facility] Comment on above: Result Comment: <100 mg/dl OPTIMAL 100 - 129 mg/dl NEAR OR ABOVE OPTIMAL 130 - 159 mg/dl BORDERLINE HIGH 160 - 189 mg/dl HIGH >190 mg/dl VERY HIGH Performed By: #### P OCGLUC #### [facility] [address] [address] [address] Salvador Yung Triglyceride [Mass/Vol] 64 mg/dL Normal <=150 [facility] Comment on above: Performed By: #### P OCGLUC #### [facility] [address] [address] [address] Salvador Yung VLDL CALC 12.8 mg/dL Normal [facility] Comment on above: Performed By: #### P OCGLUC #### [facility] [address] [address] [address] Salvador Yung PROF 14(COMP METB)on 023 Albumin [Mass/Vol] 3.2 g/dL Critically low 3.4-5.0 [facility] Comment on above: Performed By: #### P OCGLUC #### [facility] [address] [place] [address] Dr. Salvador Yung Albumin/Globulin [Mass ratio] 0.7 {ratio} Normal [facility] Comment on above: Performed By: #### P OCGLUC #### [facility] [address] [address] [address] Salvador Yung ALP [Catalytic activity/Vol] 68 U/L Normal 46-116 [facility] Comment on above: Performed By: #### P OCGLUC #### [facility] [address] [place] [address] Dr. Salvador Yung ALT [Catalytic activity/Vol] 25 U/L Normal 14-59 [facility] Comment on above: Performed By: #### P OCGLUC #### [facility] [address] [address] [address] Salvador Yung Anion gap [Moles/Vol] 11.8 mmol/L Normal [facility] Comment on above: Performed By: #### P OCGLUC #### [facility] [address] [place] [address] Dr. Salvador Yung AST [Catalytic activity/Vol] 20 U/L Normal 15-37 [facility] Comment on above: Performed By: #### P OCGLUC #### [facility] [address] [address] [address] Salvador Yung Bilirubin [Mass/Vol] 0.5 mg/dL Normal 0.2-1.0 [facility] Comment on above: Performed By: #### P OCGLUC #### [facility] [address] [place] [address] Dr. Salvador Yung Calcium [Mass/Vol] 8.9 mg/dL Normal 8.5-10.1 [facility] Comment on above: Performed By: #### P OCGLUC #### [facility] [address] [place] [address] Dr. Salvador Yung Chloride [Moles/Vol] 105 mmol/L Normal 98-107 [facility] Comment on above: Performed By: #### P OCGLUC #### [facility] [address] [place] [address] Dr. Salvador Yung CO2 [Moles/Vol] 29.9 mmol/L Normal 21.0-32.0 [facility] Comment on above: Performed By: #### P OCGLUC #### [facility] [address] [place] [address] Dr. Salvador Yung Creatinine [Mass/Vol] 0.74 mg/dL Normal 0.55-1.[address] [facility] Comment on above: Performed By: #### P OCGLUC #### [facility] [address] [address] [address] Salvador Yung EGFR-AF BHUTANESE >60 Normal >=60 [facility] Comment on above: Performed By: #### P OCGLUC #### [facility] [address] [address] [address] Salvador Yung EGFR-NON AF BHUTANESE >60 Normal >=60 [facility] Comment on above: Performed By: #### P OCGLUC #### [facility] [address] [address] [address] Salvador Yung Globulin (S) [Mass/Vol] 4.3 g/dL Normal [facility] Comment on above: Performed By: #### P OCGLUC #### [facility] [address] [place] [address] Dr. Salvador Yung Glucose [Mass/Vol] 88 mg/dL Normal 74-106 [facility] Comment on above: Performed By: #### P OCGLUC #### [facility] [address] [address] [address] Salvador Yung Potassium [Moles/Vol] 3.7 mmol/L Normal 3.5-5.1 [facility] Comment on above: Performed By: #### P OCGLUC #### [facility] [address] [address] [address] Salvador Yung Protein [Mass/Vol] 7.5 g/dL Normal 6.4-8.2 [facility] Comment on above: Performed By: #### P OCGLUC #### [facility] [address] [address] [address] Salvador Yung Sodium [Moles/Vol] 143 mmol/L Normal 136-145 [facility] Comment on above: Performed By: #### P OCGLUC #### [facility] [address] [address] [address] Salvador Yung Urea nitrogen [Mass/Vol] 11.0 mg/dL Normal 7.0-18.0 [facility] Comment on above: Performed By: #### P OCGLUC #### [facility] [address] [address] [address] Salvador Yung Urea nitrogen/Creatinine [Mass ratio] 14.9 mg/mg Normal [facility] Comment on above: Performed By: #### P OCGLUC #### [facility] [address] [place] [address] Dr. Salvador Yung T4on 05-21-2022 T4 [Mass/Vol] 11.60 ug/dL Normal 4.80-13.90 [facility] Comment on above: Performed By: #### P OCGLUC #### [facility] [address] [place] [address] Dr. Salvador Yung TSHon 05-21-2022 TSH 0.165 uIU/mL Critically low 0.358-3.740 [facility] Comment on above: Performed By: #### P OCGLUC #### [facility] [address] [place] [address] Dr. Salvador Yung VC ENDOVENOUS ABL 1ST V RTon 05-21-2022 VC ENDOVENOUS ABL 1ST V RT Patient: LEELEE CEDILLO Exam Date: 05/21/2022 : 1950 Gender:F Ordering : DR ALFRED UMAÑA M.D. Admission #: [id number] Family : Order #: [id number] CLICK HERE TO VIEW EXAM RADIOLOGY REPORT [...] MD on 05/21/2022 at 13:[address] [facility] VITAMIN D 25 OHon 05-21-2022 VIT D 25-OH 25.1 ng/mL Normal [facility] Comment on above: Performed By: #### V ITAD #### [facility] [address] [place], [place] [address] Dr. Salvador Yung VIT D RANGES SEE BELOW Normal [facility] Comment on above: Result Comment: <20 ng/mL Vit D deficient 20 - <30 ng/mL Vit D insufficient 30 - 100 ng/mL Vit D sufficient >100 ng/mL Potential Toxicity Performed By: #### V ITAD #### [facility] [address] [address] [address] Salvador Yung XR HIP LT 2 [...] MARI LORENZO Date: 2022-05-21 16:[address] [facility] VC COMP CONSULTATIONon 05-01 VC COMP CONSULTATION Patient: REAGAN CEDILLO Exam Date: 05/01/2022 : 1950 Gender:F Ordering : DR. ADELE FLEMING D.P.MKimberlee Admission #: [id number] Family : Order #: [id number] CLICK HERE [...] small saphenous vein, right lower extremity incompetent records analysis manager veins, and bilateral lower extremity incompetent [...] arterial disease 5. CEAP: C6, EC, AP, UT PLAN: 1. Continued use of compression stockings 2. Elevated legs and increased physical activity symptomatic relief 3. Endovenous laser ablation of right small saphenous vein and records analysis manager vein. 4. Microfoam chemical ablation of [...] Lobato M.D. on 05/01/2022 at 15:27 Normal [facility] VC VENOUS REFLUX SAMI LMTon 0 05-01-2022 VC VENOUS REFLUX SAMI LMT Patient: LEELEE CEDILLO Exam Date: 05/01/2022 : 1950 Gender:F Ordering : DR. ADELE FLEMING D.P.M. Admission #: [id number] Family : DR ALFRED UMAÑA M.D. 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 Mid/med calf 3.5mm with 0s reflux. Tech Note: GSV has been previously stripped. Patent varicose vein mid/med calf 2.3mm with 0.5s reflux. Patent varicose vein prox/med calf 3.4mm with 1.2s reflux. Patent varicose vein dist/med thigh 5.4mm with 0.8s reflux. CONCLUSION: 1. Dilated, incompetent right small saphenous vein. 2. Dilated, incompetent records analysis manager veins and bilateral lower extremity branch saphenous varicosities. 3. Consultation for endovenous laser ablation is recommended. Dictated by: Julio Lobato M.D. on 05/01/2022 at 14:06 Approved by: Julio Lobato M.D. on 05/01/2022 at 14:28 Normal [facility] Coding Summary.on 03-11-2022 Coding Summary. Normal [facility] ED Traumaon 03-09-2022 ED Trauma [id number]#1. 00CD:127 Normal [facility] Consent for Procedure/Surger yon 03-08-2022 Consent for Procedure/Surgery [id number]#1. 00CD:127 Normal [facility] Consent for Treatmenton 02-18 Consent for Treatment [id number]#1.0 0CD:127 Normal [facility] Discharge Instructionson Discharge Instructions [id number]#1. 00CD:127 Normal [facility] ED Clinical Summaryon 2021 ED Clinical Summary Normal [facility] ED Note-Physicianon 03-08-20 ED Note-Physician Normal [facility] Comment on above: Result Comment: Elec tronically Signed By: Wm Nagy DO.br\Date and Time Signed: 03/08/22 21:11 EST ED Patient Education Noteon 03-08-2022 ED Patient Education Note Normal [facility] ED Patient Summaryon 022 ED Patient Summary Normal [facility] EMS Documentationon 03-08-20 EMS Documentation Normal [facility] EMS Documentation Normal [facility] Monitor Recordon 03-08-2022 Monitor Record [id number]#1. 00CD:127 Normal [facility] Monitor Record [id number]#1. 00CD:127 Normal [facility] Pre-Arrival Noteon Pre-Arrival Note Normal [facility] Respiratory Therapy Noteson 03-08-2022 Respiratory Therapy Notes conscious sedation on Eaton, Leelee. Used co2 monitor and one liter of 02. patient maintained 38 co2 and 99 O2. Last approx 40 min. Normal [facility] XR Hip 2-3 Views Left + Pelv yasir 03-08-2022 XR Hip 2-3 Views Left + Pelvis Normal [facility] XR Hip 2-3 Views Left + Pelvis Normal [facility] BLEEDING TIMEon 03-06-2022 BLEEDING TIME 10.5 min Critically high 1.0-8.0 [facility] Comment on above: Performed By: #### B LTM #### [facility] [address] [place] [address] Dr. Salvador Yung CBC AUTO DIFFon 03-06-2022 BASO # 0.1 103/ul Normal 0.0-0.1 [facility] Comment on above: Performed By: #### C BC #### [facility] [address] [address] [address] Salvador Yung Basophils/100 WBC (Bld) 0.7 % Normal 0.2-2.0 [facility] Comment on above: Performed By: #### C BC #### [facility] [address] [address] [address] Salvador Yung EO # 0.1 103/ul Normal 0.0-0.7 [facility] Comment on above: Performed By: #### C BC #### [facility] [address] [address] [address] Salvador Yung Eosinophils/100 WBC (Bld) 0.7 % Critically low 0.9-7.0 [facility] Comment on above: Performed By: #### C BC #### [facility] [address] [place] [address] Dr. Salvador Yung Erythrocyte distribution width (RBC) [Ratio] 12.9 % Normal 11.0-15.0 [facility] Comment on above: Performed By: #### C BC #### [facility] [address] [place] [address] Dr. Salvador Yung Hematocrit (Bld) [Volume fraction] 41.3 % Normal 36.0-48.0 [facility] Comment on above: Performed By: #### C BC #### [facility] [address] [place] [address] Dr. Salvador Yung Hemoglobin (Bld) [Mass/Vol] 13.7 g/dL Normal 12.0-16.0 [facility] Comment on above: Performed By: #### C BC #### [facility] [address] [place] [address] Dr. Salvador Yung IG # 0.05 10e3/ul Critically high 0.00-0.03 [facility] Comment on above: Performed By: #### C BC #### [facility] [address] [place] [address] Dr. Salvador Yung IG % 0.7 % Critically high 0.0-0.5 [facility] Comment on above: Performed By: #### C BC #### [facility] [address] [place] [address] Dr. Salvador Yung LYMPH # 1.4 103/ul Normal 1.2-3.8 [facility] Comment on above: Performed By: #### C BC #### [facility] [address] [place] [address] Dr. Salvador Yung Lymphocytes/100 WBC (Bld) 18.9 % Critically low 20.5-60.0 [facility] Comment on above: Performed By: #### C BC #### [facility] Laboratory [address] [place] [address] Dr. Salvador Yung MANUAL DIFF REQ NO Normal [facility] Comment on above: Performed By: #### C BC #### [facility] [address] [place] [address] Dr. Salvador Yung MCH (RBC) [Entitic mass] 30.3 pg Normal 26.7-34.0 [facility] Comment on above: Performed By: #### C BC #### [facility] [address] [place] [address] Dr. Salvador Yung MCHC (RBC) [Mass/Vol] 33.2 g/dL Normal 29.9-35.2 [facility] Comment on above: Performed By: #### C BC #### [facility] [address] [place] [address] Dr. Salvador Yung MCV (RBC) [Entitic vol] 91.4 fL Normal 81.0-99.0 [facility] Comment on above: Performed By: #### C BC #### [facility] [address] [place] [address] Dr. Salvador Yung MONO # 0.7 103/ul Normal 0.3-0.8 [facility] Comment on above: Performed By: #### C BC #### [facility] [address] [place] [address] Dr. Salvador Yung Monocytes/100 WBC (Bld) 9.9 % Normal 1.7-12.0 [facility] Comment on above: Performed By: #### C BC #### [facility] [address] [address] [address] Salvador Yung NEUT # 5.2 103/ul Normal 1.4-6.5 [facility] Comment on above: Performed By: #### C BC #### [facility] [address] [address] [address] Salvador Yung Neutrophils/100 WBC (Bld) 69.1 % Normal 43.0-75.0 [facility] Comment on above: Performed By: #### C BC #### [facility] [address] [place] [address] Dr. Salvador Yung Platelet mean volume (Bld) [Entitic vol] 7.9 fL Critically low 9.5-13.5 [facility] Comment on above: Performed By: #### C BC #### [facility] [address] [place] [address] Dr. Salvador Yung PLT 223 103/ul Normal 150-[address] [facility] Comment on above: Performed By: #### C BC #### [facility] [address] [place] [address] Dr. Salvador Yung RBC 4.52 106/ul Normal 4.20-5.40 [facility] Comment on above: Performed By: #### C BC #### [facility] [address] [place] [address] Dr. Salvador Yung WBC 7.5 103/ul Normal 4.0-11.[address] [facility] Comment on above: Performed By: #### C BC #### [facility] [address] [place] [address] Dr. Salvador Yung IRONon 03-06-2022 Iron [Mass/Vol] 83.0 ug/dL Normal 50.0-170.0 [facility] Comment on above: Performed By: #### I ESTEFANY #### [facility] [address] [place] [address] Dr. Salvador Yung PROTIMEon 03-06-2022 INR Coag (PPP) [Relative time] 0.95 {INR} Normal [facility] Comment on above: Performed By: #### P TT, PT #### [facility] [address] [address] [address] Salvador Yung INR GUIDELINES SEE BELOW Normal [facility] Comment on above: Result Comment: YOJANA RED INR: 2.0 - 3.0 CONDITIONS NOT LISTED BELOW 2.5 - 3.5 FOR PROSTHETIC HEART VALVE REPLACEMENT 2.5 - 3.5 RECURRENT THROMBOSIS Performed By: #### P TT, PT #### [facility] [address] [address] [address] Salvador Yung PT Coag (PPP) [Time] 10.3 s Normal 9.0-11.[address] [facility] Comment on above: Performed By: #### P TT, PT #### [facility] [address] [address] [address] Salvador Yung PTTon 03-06-2022 aPTT Coag (Bld) [Time] 22.1 s Critically low 22.3-36.2 [facility] Comment on above: Performed By: #### P TT, PT #### [facility] [address] [address] [address] Salvador Yung SCREENING MAMMOGRAM W/DANIEL, BILATERAL*on [...] IS VERY IMPORTANT TO YOUR HEALTH. CURRENT [employer] GUIDELINES RECOMMENDS ANNUAL MAMMOGRAPHY BEGINNING AT AGE 41. THIS FACILITY USUALLY USES A REMINDER SYSTEM TO ENSURE ALL POSITIONS RECEIVED REMINDER NOTIFICATIONS AT THE TIME BASED ON THE RECOMMENDATIONS OF THIS EXAM. Report reported and signed by Julio Martines on 02/28/2022 1602 Normal [facility] Covid-19 PCR (CVDTBH)on 12-19 SARS-CoV-2 (COVID-19) RNA VIVIANA+probe Ql (Unsp spec) Not detected Normal NOT DETECTED [facility] Comment on above: Result Comment: This test is not yet approved or cleared by the [place] FDA. When there are no FDA-approved or cleared tests available, and other criteria are met, FDA can make tests available under an emergency access mechanism called an Emergency Use Authorization (EUA). The EUA for this test is supported by the Director Of Maintenance of Health and Human Service's (HHS's) declaration [...] SARS-CoV-2. Performed By: #### P OCGLUC #### [facility] [address] [place] [address] Dr. Salvador Yung MRI [facility] CONon 12-10- 22 MRI [facility] CON HISTORY: Chronic low back pain with left leg pain. Prior low back surgery. Lumbar disc disease. MRI [facility] CON: 12/09/2021 10:11 AM EDT COMPARISON: MRI [...] SARA LAUREN Date: 2021-12-10 12:[address] [facility] COVID-19 Positive/Negativeon 05-04-2020 COVID-19 Positive/Negative Negative Negative [facility] Comment on above: Testing for SARS-CoV -2 by RT-PCRThis test was developed and its performance characteristics determined by [employer] and validated at the [facility]. This test has not been FDA [...] Otheron 05-04-2020 Coronavirus 2019 PCR Interp N/A [facility] Automated basophil %on 04-24 Basophils/100 WBC (Bld) 0.6 % [facility] Automated basophil counton 0 04-24-2020 Basophils (Bld) [#/Vol] 0.0 10*3/uL 0.0-0.2 [facility] Automated blood lymphocyte c ount (number/volume)on 04-24-2020 Lymphocytes (Bld) [#/Vol] 1.0 10*3/uL 1.00-4.8 [facility] Automated blood lymphocyte c ount as percentage of total leukocyteson 04-24-2020 Lymphocytes/100 WBC (Bld) 17.0 % [facility] Automated blood monocyte cou nton 04-24-2020 Monocytes (Bld) [#/Vol] 0.3 10*3/uL 0.0-0.8 [facility] Automated blood platelet cou nt (count/volume)on 04-24-2020 Platelets (Bld) [#/Vol] 224 10*3/uL 150-450 [facility] Automated blood platelet vikki n volume measurementon 04-24-2020 Platelet mean volume (Bld) [Entitic vol] 7.2 fL 6.3-10.7 [facility] Automated eosinophil %on Eosinophils/100 WBC (Bld) 3.5 % [facility] Automated eosinophil counton 04-24-2020 Eosinophils (Bld) [#/Vol] 0.2 10*3/uL 0.0-0.45 [facility] Automated erythrocyte distri bution width ratioon 04-24-2020 Erythrocyte distribution width (RBC) [Ratio] 13.0 % 11.9-15.3 [facility] Automated erythrocyte mean c orpuscular hemoglobin (mass per erythrocyte)on 04-24-2020 MCH (RBC) [Entitic mass] 27.7 pg 24.7-34.3 [facility] Automated erythrocyte mean c orpuscular hemoglobin concentration measurement (mass/volon 04-24-2020 MCHC (RBC) [Mass/Vol] 33.2 g/dL 32.0-35.0 [facility] Automated erythrocyte mean c orpuscular volumeon 04-24-2020 MCV (RBC) [Entitic vol] 83.3 fL 80-100 [facility] Automated erythrocytes count in urine sediment (number/area)on 04-24-2020 RBC Auto (Urine sed) [#/Area] None seen [HPF] [facility] Automated leukocytes count i n urine sediment (number/area)on 04-24-2020 WBC Auto (Urine sed) [#/Area] 0-1 [HPF] [facility] Automated monocyte %on 04-24 Monocytes/100 WBC (Bld) 6.1 % [facility] Automated neutrophil %on Neutrophils/100 WBC (Bld) 72.8 % [facility] Automated urine color determ inationon 04-24-2020 Color (U) Yellow Yellow [facility] Blood erythrocytes automated count (number/volume)on 04-24-2020 RBC (Bld) [#/Vol] 4.50 10*6/uL 3.60-5.00 [facility] Blood hemoglobin measurement (mass/volume)on 04-24-2020 Hemoglobin (Bld) [Mass/Vol] 12.5 g/dL 11.8-15.4 [facility] Blood leukocytes automated c ount (number/volume)on 04-24-2020 WBC (Bld) [#/Vol] 5.7 10*3/uL 3.8-11.6 [facility] Blood neutrophil count by au tomated method (number/volume)on 04-24-2020 Neutrophils (Bld) [#/Vol] 4.2 10*3/uL 1.8-7.7 [facility] Estimated glomerular filtrat ion rate (GFR) non- Americanon 04-24-2020 GFR/1.73 sq M predicted among non-blacks MDRD (S/P/Bld) [Vol rate/Area] mL/min/{1.73_m2} [facility] Hematocrit [Volume Fraction] of Blood by Automated counton 04-24-2020 Hematocrit (Bld) [Volume fraction] 37.5 % 34.0-46.4 [facility] Otheron 04-24-2020 GFR/1.73 sq M.predicted MDRD (S/P/Bld) [Vol rate/Area] mL/min/{1.73_m2} [facility] Comment on above: GFR estimated refere nce range: According to KDOQI guidelines, <60 ml/min/1.73m2 is sufficient to diagnose a patient with chronic kidney disease. Nucleated RBC/100 WBC (Bld) [Ratio] 0.1 % 0-0.5 [facility] Creatinine Clearance (Chem N/A [facility] Serum or plasma calcium kelly urement (mass/volume)on 04-24-2020 Calcium [Mass/Vol] 9.3 mg/dL 8.2-10.2 [facility] Serum or plasma chloride vikki surement (moles/volume)on 04-24-2020 Chloride [Moles/Vol] 101 mmol/L 95-114 [facility] Serum or plasma creatinine m easurement with calculation of estimated glomerular filtron 04-24-2020 Creatinine [Mass/Vol] 0.88 mg/dL 0.44-1.03 [facility] Serum or plasma glucose kelly urement (mass/volume)on 04-24-2020 Glucose [Mass/Vol] 116 mg/dL 70-100 [facility] Comment on above: ADA recommended refe rence rangeRandom Glucose Reference Range is dependent on time and content of last meal. Glucose of more than 200 mg/dL in a nonstressed, ambulatory subject supports the diagnosis of Diabetes Mellitus. Serum or plasma potassium me asurement (moles/volume)on 04-24-2020 Potassium [Moles/Vol] 3.8 mmol/L 3.5-5.1 [facility] Serum or plasma sodium measu rement (moles/volume)on 04-24-2020 Sodium [Moles/Vol] 136 mmol/L 136-146 [facility] Serum or plasma total carbon dioxide measurement (moles/volume)on 04-24-2020 CO2 [Moles/Vol] 23.1 mmol/L 22.0-30.0 [facility] Serum or plasma urea nitroge n measurement (mass/volume)on 04-24-2020 Urea nitrogen [Mass/Vol] 10 mg/dL 9-23 [facility] Specific gravity of Urine by Automated test stripon 04-24-2020 Specific gravity (U) [Rel density] 1.007 1.001-1.030 [facility] Squamous epithelial cells de tection in urine sediment by light microscopyon 04-24-2020 Epithelial cells.squamous LM Ql (Urine sed) None seen [HPF] [facility] Urinalysison 04-24-2020 Hyaline casts LM Ql (Urine sed) None seen [LPF] [facility] Urine bacteria detection by automated methodon 04-24-2020 Bacteria Auto Ql (U) None seen None Seen [facility] Urine clarity by refractomet ry automatedon 04-24-2020 Clarity Refractometry automated (U) Clear Clear [facility] Urine glucose measurement by automated test strip (mass/volume)on 04-24-2020 Glucose Auto test strip (U) [Mass/Vol] Normal mg/dL Normal [facility] Urine hemoglobin detection b y automated test stripon 04-24-2020 Hemoglobin Auto test strip Ql (U) Negative Negative [facility] Urine ketones measurement by automated test strip (mass/volume)on 04-24-2020 Ketones (U) [Mass/Vol] Negative Negative [facility] Urine leukocyte esterase det ection by automated test stripon 04-24-2020 Leukocyte esterase Auto test strip Ql (U) 1+ Negative [facility] Urine nitrite detection by t est stripon 04-24-2020 Nitrite Ql (U) Negative Negative [facility] Urine pH measurement by auto mated test stripon 04-24-2020 pH (U) 5.5 [pH] 5.0-9.0 [facility] Urine protein measurement by automated test strip (mass/volume)on 04-24-2020 Protein (U) [Mass/Vol] Negative Negative [facility] Urine total bilirubin detect ion by test stripon 04-24-2020 Bilirubin Ql (U) Negative Negative [facility] Urine urobilinogen measureme nt by automated test strip (mass/volume)on 04-24-2020 Urobilinogen (U) [Mass/Vol] Normal mg/dL Normal [facility] CT L-SPINE WO CONTRASTon CT L-SPINE WO CONTRAST Patient Name: LEELEE CEDILLO STUDY: CT L-SPINE WO CONTRAST;; 10/13/2018 12:05 pm INDICATION: Low back pain LUMBAGO. COMPARISON: None. ACCESSION NUMBER(S): [id number] ORDERING CLINICIAN: HAMLET GILMAN TECHNIQUE: Axial sections [...] combination with facet joint arthropathy noted causing [id number] left neural foramina narrowing. Transpedicular screws of [...] left lateral recess, left neural foramina and [id number] right neural foramina narrowing. IMPRESSION: Postoperative and [...] Electronically signed by: PATRICIA MURRAY MD Normal [facility] SPINE, ENTIRE THORACIC/LUMBA R, INCLUDE SKULL, CERVICAL ANSD SACRAL SPINE WHEN PERFORMED 2 OR 3 VIEWon 10-13-2018 SPINE, ENTIRE THORACIC/LUMBAR, INCLUDE SKULL, CERVICAL ANSD SACRAL SPINE WHEN PERFORMED 2 OR 3 VIEW Patient Name: ELELEE CEDILLO STUDY: SPINE, ENTIRE THORACIC/LUMBAR, INCLUDE SKULL, CERVICAL ANSD SACRAL SPINE WHEN PERFORMED 2 OR 3 VIEW; SPINE, LUMBOSACRAL CMPLT(BENDING); 10/13/2018 12:05 pm INDICATION: LUMBAGO. COMPARISON: None ACCESSION NUMBER(S): [id number]; [id number] ORDERING CLINICIAN: HAMLET GILMAN FINDINGS: Long radiograph [...] Electronically signed by: ADELE BA MD Normal [facility] SPINE, LUMBOSACRAL; CMPLT(BE NDING)on 10-13-2018 SPINE, LUMBOSACRAL; CMPLT(BENDING) Patient Name: LEELEE CEDILLO STUDY: SPINE, ENTIRE THORACIC/LUMBAR, INCLUDE SKULL, CERVICAL ANSD SACRAL SPINE WHEN PERFORMED 2 OR 3 VIEW; SPINE, LUMBOSACRAL CMPLT(BENDING); 10/13/2018 12:05 pm INDICATION: LUMBAGO. COMPARISON: None ACCESSION NUMBER(S): [id number]; [id number] ORDERING CLINICIAN: HAMLET GILMAN FINDINGS: Long radiograph [...] acuity. Electronically signed by: ADELE BA MD [facility] Vital Signs Date Time Vital Sign Value Performing Clinician Facility 08-07-2023 11:44-0400 Diastolic blood pressure 86 mm[Hg] MD Sara Vick Work Phone: [facility] 08-07-2023 11:44-0400 Heart rate 67 /min MD Sara Vick Work Phone: [facility] 08-07-2023 11:44-0400 SaO2% (BldA) [Mass fraction] 99 % MD Sara Vick Work Phone: [facility] 08-07-2023 11:44-0400 Systolic blood pressure 132 mm[Hg] MD Sara Vick Work Phone: [facility] 07-01-2023 10:26-0400 Body height 172.72 cm MD Sara Vick Work Phone: [facility] 07-01-2023 10:26-0400 Body mass index (BMI) [Ratio] 29.5 kg/m2 MD Sara Vick Work Phone: [facility] 07-01-2023 [id number] Body temperature 97.2 [degF] MD Sara Vick Work Phone: [facility] 07-01-2023 10:26-040 Body weight 87.99 kg MD Sara Vick Work Phone: [facility] 07-01-2023 10:26-0400 Diastolic blood pressure 78 mm[Hg] MD Sara Vick Work Phone: [facility] 07-01-2023 10:26-0400 Heart rate 78 /min MD Sara Vick Work Phone: [facility] 07-01-2023 10:26-0400 SaO2% (BldA) [Mass fraction] 98 % MD Sara Vick Work Phone: [facility] 07-01-2023 10:26-0400 Systolic blood pressure 120 mm[Hg] MD Sara Vick Work Phone: [facility] 06-30-2023 14:39-0400 Diastolic blood pressure 70 mm[Hg] MD Sara Vick Work Phone: [facility] 06-30-2023 14:39-0400 Heart rate 75 /min MD Sara Vick Work Phone: [facility] 06-30-2023 14:39-0400 SaO2% (BldA) [Mass fraction] 99 % MD Sara Vick Work Phone: [facility] 06-30-2023 14:39-0400 Systolic blood pressure 110 mm[Hg] MD Sara Vick Work Phone: [facility] 06-24-2023 13:13-0500 Body height 172.7 cm Ghanshyam Lombardi MD Work Phone: [facility] 06-24-2023 13:13-0500 Body weight 87.4 kg Ghanshyam Lombardi MD Work Phone: [facility] 06-24-2023 13:13-0500 Diastolic blood pressure 56 mm[Hg] Ghanshyam Lombardi MD Work Phone: [facility] 06-24-2023 13:13-0500 Heart rate 93 /min Ghanshyam Lombardi MD Work Phone: [facility] 06-24-2023 13:13-0500 Respiratory rate 18 /min Ghanshyam Lombardi MD Work Phone: [facility] 06-24-2023 13:13-0500 SaO2% (BldA) [Mass fraction] 97 % Ghanshyam Lombardi MD Work Phone: [facility] 06-24-2023 13:13-0500 Systolic blood pressure 115 mm[Hg] Ghanshyam Lombardi MD Work Phone: [facility] 05-15-2023 09:00-0500 Body weight 90.18 kg Larry Brown Other [facility] [employer] Other 05-15-2023 09:00-0500 Body weight 90.17 kg MD Sara Vick Work Phone: [facility] 05-15-2023 09:00-0500 Diastolic blood pressure 86 mm[Hg] Larry Brown Other [facility] 05-15-2023 09:00-0500 SaO2% (BldA) [Mass fraction] 99 % Larryrandy Brown Other [facility] Other 05-15-2023 09:00-0500 Systolic blood pressure 148 mm[Hg] Larry Brown Other [facility] 05-13-2023 11:15-0500 Body height 175.26 cm Kiran Kessler Other [facility] 05-13-2023 11:15-0500 Body mass index (BMI) [Ratio] 29.24 kg/m2 Kiran Kessler Other [facility] Other 05-13-2023 11:15-0500 Body temperature 96.9 [degF] Kiran Kessler Other [facility] Other 05-13-2023 11:15-0500 Body weight 89.81 kg Kiran Kessler Other [facility] 05-13-2023 11:15-0500 Diastolic blood pressure 80 mm[Hg] Kiran Kessler Other [facility] 05-13-2023 11:15-0500 SaO2% (BldA) [Mass fraction] 99 % Kiran Kessler Other [facility] Other 05-13-2023 11:15-0500 Systolic blood pressure 140 mm[Hg] Kiran Kessler Other [facility] 04-03-2023 10:15-0500 Body height 175.26 cm Larry Stephanie Other [facility] Other 04-03-2023 10:15-0500 Diastolic blood pressure 74 mm[Hg] Larryrandy Brown Other [facility] Other 04-03-2023 10:15-0500 SaO2% (BldA) [Mass fraction] 99 % Larry Stephanie Other [facility] Other 04-03-2023 10:15-0500 Systolic blood pressure 118 mm[Hg] Larryrandy Brown Other [facility] Other 03-25-2023 11:05-0500 Diastolic blood pressure 75 mm[Hg] MD Sara Vick Work Phone: [facility] 03-25-2023 11:05-0500 Heart rate 72 /min MD Sara Vick Work Phone: [facility] 03-25-2023 11:05-0500 Respiratory rate 18 /min MD Sara Vick Work Phone: [facility] 03-25-2023 11:05-0500 SaO2% (BldA) [Mass fraction] 97 % MD Sara Vick Work Phone: [facility] 03-25-2023 11:05-0500 Systolic blood pressure 146 mm[Hg] MD Sara Vick Work Phone: [facility] 03-25-2023 10:27-0500 Inhaled oxygen flow rate 3 L/min MD Sara Vick Work Phone: [facility] 03-25-2023 10:14-0500 Body height 173.99 cm MD Sara Vick Work Phone: [facility] 03-25-2023 10:14-0500 Body weight 88.45 kg MD Sara Vick Work Phone: [facility] 01-27-2023 14:30-0400 Body height 175.26 cm Dominique Shane Other [employer] Other 01-27-2023 14:30-0400 Diastolic blood pressure 70 mm[Hg] Dominique Shane Other [employer] Other 01-27-2023 14:30-0400 SaO2% (BldA) [Mass fraction] 98 % Dominique Shane Other [employer] Other 01-27-2023 14:30-0400 Systolic blood pressure 118 mm[Hg] Dominique Shane Other [employer] Other 01-09-2023 10:15-0400 Body height 175.26 cm Larry Brown Other [employer] Other 01-09-2023 10:15-0400 Body mass index (BMI) [Ratio] 29.56 kg/m2 Larry Brown Other [employer] Other 01-09-2023 10:15-0400 Body weight 90.81 kg Larry Brown Other [employer] Other 01-09-2023 10:15-0400 Diastolic blood pressure 78 mm[Hg] Larry Brown Other [employer] Other 01-09-2023 10:15-0400 SaO2% (BldA) [Mass fraction] 98 % Larry Brown Other [employer] Other 01-09-2023 10:15-0400 Systolic blood pressure 130 mm[Hg] Larry Brown Other [employer] Other 12-12-2022 09:30-0400 Body height 175.26 cm Larry Brown Other [employer] Other 12-12-2022 09:30-0400 Body mass index (BMI) [Ratio] 29.77 kg/m2 Larry Brown Other [employer] Other 12-12-2022 09:30-0400 Body weight 91.45 kg Larry Brown Other [employer] Other 12-12-2022 09:30-0400 Diastolic blood pressure 74 mm[Hg] Larry Brown Other [employer] Other 12-12-2022 09:30-0400 SaO2% (BldA) [Mass fraction] 99 % Larry Brown Other [employer] Other 12-12-2022 09:30-0400 Systolic blood pressure 122 mm[Hg] Larry Brown Other [employer] Other 09-19-2022 12:00-0400 Body height 175.26 cm Larry Brown Other [employer] Other 09-19-2022 12:00-0400 Body mass index (BMI) [Ratio] 30.8 kg/m2 Larry Brown Other [employer] Other 09-19-2022 12:00-0400 Body weight 94.62 kg Larry Brown Other [employer] Other 09-19-2022 12:00-0400 SaO2% (BldA) [Mass fraction] 95 % Larry Brown Other [employer] Other 09-18-2022 10:40-0400 Body height 172.7 cm Perfecto Burch MD Work Phone: [facility] [employer] [facility] 09-18-2022 10:40-0400 Body mass index (BMI) [Ratio] 31.26 kg/m2 Perfecto Burch MD Work Phone: [facility] [employer] [facility] 09-18-2022 10:40-0400 Body temperature 96.4 [degF] Perfecto Burch MD Work Phone: [facility] [employer] [facility] 09-18-2022 10:40-0400 Body weight 93.26 kg Perfecto Burch MD Work Phone: [facility] 07-27-2022 15:38-0400 [employer] Round[employer] Francisco Ottoniel [facility] 07-27-2022 15:38-0400 Promise to Return Francisco Ottoniel [facility] 07-27-2022 14:38-0400 Hourly Rounding Francisco Ottoniel [facility] 07-27-2022 14:38-0400 Promise to Return Francisco Ottoniel [facility] 07-27-2022 13:38-0400 Hourly Rounding Francisco Ottoniel [facility] 07-27-2022 13:38-0400 Promise to Return Francisco Ottoniel [facility] 07-27-2022 12:08-0400 Heart rate 106 /min Francisco Ottoniel [facility] 07-27-2022 12:08-0400 SaO2% (BldA) [Mass fraction] 100 % Francisco Ottoniel [facility] 07-27-2022 12:07-0400 Diastolic blood pressure 79 mm[Hg] Francisco Ottoniel [facility] 07-27-2022 12:07-0400 Mean blood pressure 103 mm[Hg] Francisco Ottoniel [facility] 07-27-2022 12:07-0400 Systolic blood pressure 151 mm[Hg] Francisco Ottoniel [facility] 07-27-2022 12:06-0400 Body temperature 97.16 [degF] Francisco Ottoniel [facility] 07-27-2022 07:46-0400 Heart rate 82 /min Francisco Ottoniel [facility] 07-27-2022 07:46-0400 SaO2% (BldA) [Mass fraction] 97 % Francisco Ottoniel [facility] 07-27-2022 07:46-0400 Diastolic blood pressure 81 mm[Hg] Francisco Ottoniel [facility] 07-27-2022 07:46-0400 Mean blood pressure 116 mm[Hg] Francisco Ottoniel [facility] 07-27-2022 07:46-0400 Systolic blood pressure 186 mm[Hg] Francisco Ottoniel [facility] 07-27-2022 07:45-0400 Body temperature 97.52 [degF] Francisco Ottoniel [facility] 07-27-2022 01:46-0400 Heart rate 89 /min Franicsco Ottoniel [facility] 07-27-2022 01:46-0400 SaO2% (BldA) [Mass fraction] 96 % Francisco Ottoniel [facility] 07-27-2022 01:45-0400 Diastolic blood pressure 67 mm[Hg] Francisco Ottoniel [facility] 07-27-2022 01:45-0400 Mean blood pressure 89 mm[Hg] Francisco Ottoniel [facility] 07-27-2022 01:45-0400 Systolic blood pressure 134 mm[Hg] Francisco Ottoniel [facility] 07-27-2022 01:45-0400 Body temperature 98.06 [degF] Francisco Ottoniel [facility] 07-27-2022 01:45-0400 Blood Pressure Location Francisco Ottoniel [facility] 07-27-2022 01:45-0400 Respiratory rate 18 /min Francisco Ottoniel [facility] 07-26-2022 20:00-0400 Respiratory rate 16 /min Francisco Ottoniel [facility] 07-26-2022 17:20-0400 Blood Pressure Location Francisco Ottoniel [facility] 07-26-2022 17:20-0400 Heart rate 78 /min Francisco Ottoniel [facility] 07-26-2022 15:30-0400 Respiratory rate 12 /min Francisco Ottoniel [facility] 07-26-2022 15:00-0400 Mean blood pressure 122 mm[Hg] Francisco Ottoniel [facility] 07-26-2022 15:00-0400 Respiratory rate 8 /min Francisco Ottoniel [facility] 07-26-2022 14:30-0400 Mean blood pressure 112 mm[Hg] Francisco Ottoniel [facility] 07-26-2022 14:30-0400 Respiratory rate 12 /min Francisco Ottoniel [facility] 07-26-2022 13:30-0400 Mean blood pressure 95 mm[Hg] Francisco Ottoniel [facility] 07-26-2022 11:35-0400 gluc 105 mg/dL Francisco Ottoniel [facility] 07-26-2022 11:35-0400 gluc Francisco Ottoniel [facility] 07-26-2022 11:35-0400 Heart rate 72 /min Francisco Ottoniel [facility] 07-26-2022 11:35-0400 Respiratory rate 18 /min Francisco Ototniel [facility] 05-02-2022 10:00-0500 Body height 175.26 cm Larry Stephanie Other [facility] [employer] Other 05-02-2022 10:00-0500 Body mass index (BMI) [Ratio] 31.89 kg/m2 Larry Brown Other [employer] Other 05-02-2022 10:00-0500 Body weight 97.98 kg Larry Brown Other [employer] Other 05-02-2022 10:00-0500 Diastolic blood pressure 80 mm[Hg] Larry Brown Other [facility] [employer] Other 05-02-2022 10:00-0500 Systolic blood pressure 134 mm[Hg] Larry Brown Other [facility] [employer] Other 03-08-2022 17:00-0500 Diastolic blood pressure 117 mm[Hg] Wm Yakov [facility] 03-08-2022 17:00-0500 Mean blood pressure 131 mm[Hg] Wm Yakov [facility] 03-08-2022 17:00-0500 SaO2% (BldA) [Mass fraction] 95 % Wm Yakov [facility] 03-08-2022 17:00-0500 Systolic blood pressure 160 mm[Hg] Wm Yakov [facility] 03-08-2022 16:30-0500 Diastolic blood pressure 85 mm[Hg] Wm Yakov [facility] 03-08-2022 16:30-0500 Heart rate 75 /min Wm Yakov [facility] 03-08-2022 16:30-0500 Mean blood pressure 94 mm[Hg] Wm Yakov [facility] 03-08-2022 16:30-0500 Respiratory rate 15 /min Wm Yakov [facility] 03-08-2022 16:30-0500 SaO2% (BldA) [Mass fraction] 98 % Wm Yakov [facility] 03-08-2022 16:30-0500 Systolic blood pressure 112 mm[Hg] Wm Yakov [facility] 03-08-2022 16:10-0500 Diastolic blood pressure 74 mm[Hg] Wm Yakov [facility] 03-08-2022 16:10-0500 Heart rate 93 /min Wm Yakov [facility] 03-08-2022 16:10-0500 Mean blood pressure 90 mm[Hg] Wm Yakov [facility] 03-08-2022 16:10-0500 Respiratory rate 14 /min Wm Yakov [facility] 03-08-2022 16:10-0500 SaO2% (BldA) [Mass fraction] 98 % Wm Yakov [facility] 03-08-2022 16:10-0500 Systolic blood pressure 122 mm[Hg] Wm Yakov [facility] 03-08-2022 15:15-0500 Respiratory rate 18 /min Wm Yakov [facility] 03-08-2022 15:00-0500 Hourly Rounding Wm Yakov [facility] 03-08-2022 15:00-0500 Promise to Return Wm Yakov [facility] 03-08-2022 14:45-0500 Respiratory rate 20 /min Wm Yakov [facility] 03-08-2022 14:15-0500 Respiratory rate 20 /min Wm Yakov [facility] 03-08-2022 14:14-0500 Hourly Rounding Wm Yakov [facility] 03-08-2022 14:14-0500 Promise to Return Wm Yakov [facility] 03-08-2022 13:54-0500 Heart rate 99 /min Wm Nagy [facility] 03-08-2022 13:37-0500 Body temperature 97.7 [degF] Wm Nagy [facility] 03-08-2022 13:37-0500 Heart rate 104 /min Wm Nagy [facility] 03-08-2022 13:00-0500 Hourly Rounding Wm Nagy [facility] 03-08-2022 13:00-0500 Promise to Return Wm Nagy [facility] 03-07-2022 11:00-0500 Body height 175.26 cm Larry Carrilloky Other [employer] Other 03-07-2022 11:00-0500 Body mass index (BMI) [Ratio] 32.54 kg/m2 Larry Stephanie Other [employer] Other 03-07-2022 11:00-0500 Body weight 99.97 kg Larry Carrilloky Other [employer] Other 03-07-2022 11:00-0500 SaO2% (BldA) [Mass fraction] 99 % Larryrandy Brown Other [employer] Other 06-20-2017 09:19-0500 PAIN LEVEL 0 {score} [...] Start: 10-30-2023 End: 10-30-2023 ambulatory SARA VICK Facility:[facility] Start: 08-08-2023 End: 08-08-2023 ambulatory GHANSHYAM LOMBARDI Facility:[facility] Start: 08-08-2023 End: 08-08-2023 Subsequent hospital visit by physician Mri 6 Radio Main Q (I-Stat/1.5t/3t) Work Phone: MRI Q Comment on above: 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, 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] Start: 08-07-2023 End: 08-07-2023 ambulatory MD Sara Vick Work Phone: [facility] Work Phone: Start: 08-07-2023 End: 08-07-2023 Patient encounter procedure MD Sara Vick Work Phone: [facility] [place] Work Phone: Start: 08-05-2023 End: 08-06-2023 ambulatory ANNIE J PRINTY Not Available Start: 07-15-2023 End: 07-15-2023 ambulatory ANNIE PRINTY Not Available Start: 07-13-2023 End: 07-13-2023 ambulatory GHANSHYAMEVELINE LOMBARDI Facility:[facility] Start: 07-13-2023 End: 07-13-2023 Subsequent hospital visit by physician [facility] D[facility] Work Phone: Radiology Comment on above: Chronic bilateral lo w back pain with bilateral sciatica [M54.42, M54.41, G89.29] Start: 07-01-2023 End: 07-01-2023 Patient encounter procedure MD Sara Vick Work Phone: [facility] Work Phone: Start: 06-30-2023 End: 06-30-2023 Patient encounter procedure MD Sara Vick Work Phone: [facility] Work Phone: Start: 06-29-2023 End: 06-29-2023 ambulatory ANNIE J PRINTY Not Available Start: 06-24-2023 End: 06-24-2023 Patient encounter procedure Ghanshyam Lombardi MD Work Phone: [facility] [place] Comment on above: 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 Start: 05-22-2023 End: 05-22-2023 ambulatory MD Sara Vick Work Phone: [facility] Work Phone: Start: 05-22-2023 End: 05-22-2023 Patient encounter procedure MD Sara Vick Work Phone: [facility]Ul[facility] [place] Work Phone: Start: 05-20-2023 End: 05-20-2023 ambulatory Sara Vick Facility:[facility] Start: 05-20-2023 End: 05-20-2023 Discharged Recurring MD Sara Vick Work Phone: [facility]-[employer] [address] Start: 05-20-2023 Registered Recurring MD Gideon Vick Work Phone: [facility] [employer] [address] Start: 05-18-2023 Patient encounter procedure MD Sara Vick Work Phone: [facility]- Start: 05-15-2023 End: 05-15-2023 ambulatory Larry Brown Other [employer] Other Start: 05-15-2023 Office outpatient vi sit 25 minutes Larry Brown [facility] [place] Start: 05-15-2023 End: 05-15-2023 Patient encounter procedure MD Sara Vick Work Phone: [facility]- Start: 05-13-2023 End: 05-13-2023 ambulatory Kiran Kessler Other [employer] Other Start: 05-13-2023 Office outpatient ne w 60 minutes Kiran Kessler [facility] Start: 05-13-2023 End: 05-13-2023 Patient encounter procedure MD Sara Vick Work Phone: [facility]- Start: 04-16-2023 End: 04-16-2023 ambulatory Dominique Shane Other [employer] Other Start: 04-16-2023 Telephone encounter Dominique Shane [facility] Start: 04-03-2023 End: 04-03-2023 ambulatory Larry Brown Other [employer] Other Start: 04-03-2023 Office outpatient vi sit 15 minutes Larry Brown [facility] [place] Start: 04-03-2023 End: 04-03-2023 Patient encounter procedure MD Sara Vick Work Phone: [facility] [place] Work Phone: Start: 03-25-2023 (PROC) PROCEDURE Larry Brown [facility] Start: 03-25-2023 End: 03-25-2023 ambulatory Sara Vick Facility:[facility] Start: 03-25-2023 End: 03-25-2023 Admission to same day surgery center MD Sara Vick Work Phone: [facility] Work Phone: Start: 03-25-2023 End: 03-25-2023 ambulatory MD Sara Vick Work Phone: [facility] Work Phone: Start: 03-06-2023 End: 03-06-2023 Patient encounter procedure MD Sara Vick Work Phone: [facility] [place] Work Phone: Start: 02-10-2023 End: 02-10-2023 ambulatory Dominique Shane Other [employer] Other Start: 02-10-2023 Telephone encounter Dominique Shane [facility] Start: 01-27-2023 End: 01-27-2023 ambulatory Dominique Shane Other [employer] Other Start: 01-27-2023 Office outpatient vi sit 25 minutes Dominique Shane [facility] [place] Start: 01-27-2023 Telephone encounter Larry Stephanie [facility] Start: 01-09-2023 End: 01-09-2023 ambulatory Larry Stephanie Other [employer] Other Start: 01-09-2023 Office outpatient vi sit 25 minutes Larry Stephanie [facility] [place] Start: 12-12-2022 End: 12-12-2022 ambulatory Larry Stephanie Other [employer] Other Start: 12-12-2022 Office outpatient vi sit 25 minutes Larry Stephanie [facility] [place] Start: 11-22-2022 End: 11-22-2022 Emergency department patient visit [facility] Facility:[facility] Start: 09-19-2022 End: 09-19-2022 ambulatory Larry Stephanie Other [employer] Other Start: 09-19-2022 Office outpatient vi sit 25 minutes Larry Stephanie [facility] [place] Start: 09-18-2022 ambulatory PERFECTO BURCH [facility] Start: 09-18-2022 End: 09-18-2022 Office outpatient new 30 minutes Perfecto Burch MD Work Phone: [facility] Comment on above: 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, sequela (Primary Dx) Start: 09-18-2022 End: 09-18-2022 Subsequent hospital visit by physician Perfecto Burch MD Work Phone: [facility] Start: 09-17-2022 ambulatory ADELE FLEMING Faci lity:[facility] Start: 09-10-2022 End: 09-10-2022 ambulatory Sara Vick Facility:[facility] Start: 09-09-2022 End: 09-10-2022 ambulatory ADELE FLEMING Facility:[facility] Start: 09-08-2022 End: 09-09-2022 ambulatory Alley Naranjo Facility:[facility] Start: 08-18-2022 End: 08-19-2022 ambulatory ADELE FLEMING Facility:[facility] Start: 08-13-2022 ambulatory PERFECTO BURHC [facility] Start: 08-12-2022 End: 08-13-2022 ambulatory ADELE FLEMING Facility:[facility] Start: 08-08-2022 End: 08-09-[address] ALFRED UMAÑA Facility:[facility] Start: 08-01-2022 End: 08-02-2022 ambulatory ADELE FLEMING Facility:[facility] Start: 07-26-2022 End: 07-27-2022 ambulatory Julio Ferrara Facility:[facility] Start: 07-26-2022 End: 07-27-2022 Observation Franciscoalberto Alcazar [facility] Start: 07-25-2022 Encounter for preprocedural cardiovascular examination ADELE FLEMING [facility] Start: 07-25-2022 Encounter for preprocedural laboratory examination ADELE FLEMING [facility] Start: 07-24-2022 End: 07-25-2022 ambulatory ADELE [...] 06-19-2022 ambulatory MD Sara Vick Work Phone: [facility] Work Phone: Start: 06-19-2022 End: 06-19-2022 Discharged Recurring MD Sara Vick Work Phone: [facility] [place] Work Phone: Start: 06-13-2022 End: 06-14-2022 ambulatory [...] 05-02-2022 End: 05-02-2022 ambulatory Larry Brown Other [employer] Other Start: 05-02-2022 Office outpatient vi sit 25 minutes Larry Brown [facility] [place] Start: 05-01-2022 End: 05-02-2022 ambulatory ADELE FLEMING Facility:[facility] Start: 04-22-2022 End: 04-23-2022 ambulatory ADELE FLEMING Facility:[facility] Start: 04-14-2022 End: 04-15-2022 ambulatory DEEPALI JANSEN Facility:[facility] Start: 04-08-2022 (PROC) PROCEDURE Larry Beck [facility] Start: 04-08-2022 End: 04-08-2022 ambulatory Larry Brown Other [employer] Other Start: 03-31-2022 End: 04-01-[address] ALFRED UMAÑA Facility:[facility] Start: 03-08-2022 End: 03-08-2022 Emergency department patient visit Wm Nagy Facility:[facility] Start: 03-08-2022 End: 03-08-2022 Emergency department patient visit Wm Nagy [facility] Start: 03-07-2022 End: 03-07-2022 ambulatory Larry Brown Other [employer] Other Start: 03-07-2022 Office consultation new/estab patient 60 min Larry Brown [facility] [place] Start: 03-06-2022 End: 03-07-[address] SARA VICK . Facility:[facility] Start: 01-03-2022 End: 01-03-[address] SARA VICK . Facility:[facility] Start: 12-09-2021 End: 12-10-2021 ambulatory SHAWANDA LITTLE Facility:[facility] Start: 11-05-2021 End: 11-06-2021 ambulatory ADELE Means [facility] Facility:[facility] Start: 10-07-2021 End: 10-07-2021 ambulatory PO SUAREZ . Facility:[facility] Start: 05-04-2020 End: 05-04-2020 Patient encounter procedure Sara Hoy -Pre-Surgical Testing Start: 05-02-2020 Registered Recurring Sara Vick -P hysical Therapy [place] Start: 04-24-2020 End: 04-24-2020 Patient encounter procedure Sara Hoy -Pre-Surgical Testing Start: 02-01-2020 End: 02-01-2020 Patient encounter procedure Sara Vick -XRay [facility] Start: 06-29-2018 Patient encounter procedure Sara~[id number] UNKNOWN Hoy Facility:[facility] Start: 12-11-2017 End: 12-12-2017 Patient encounter DEFAULT PHYSICIAN Facility:[facility] Procedures Date Procedure Procedure Detail Performing Clinician Start: 08-08-2023 Mri spinal canal tho racic w/o contrast matrl Ghanshyam Lombardi MD Work Phone: Start: 07-13-2023 Ct lumbar spine w/o contrast material Ghanshyam Lombardi MD Work Phone: Start: 06-24-2023 End: 06-24-2023 Radex spine lumbosacral minimum 4 views Ros Cedeño [employer]NAGER [employer] STUDENT [employer] Work Phone: Start: 05-22-2023 Pulse volume recorde [...] for malignant neoplasm of breast Mammogram Screening [facility] Start: 06-23-2024 BP Controlled (<130/80) BP Controlled (<130/80) [facility] Start: 12-20-2023 Influenza vaccination Influenza Vaccine (Season Ended) [facility] Start: 05-22-2023 Pulse volume recorder pneumoplethysmography US arterial pvr rest [facility] Start: 05-22-2023 [facility] Start: 05-22-2023 Duplex scan of lower limb veins US venous duplex LE [facility] Start: 05-22-2023 US Lower extremity vein - bilateral [facility] Start: 04-20-2023 Advance Directive Discussion Advance Directive Discussion [facility] Start: 04-20-2023 Behavioral Health Screening Behavioral Health Screening [facility] Start: 04-20-2023 Depression Assessment Depression Assessment [facility] Start: 03-25-2023 [facility] Start: 02-28-2023 Screening for malignant neoplasm of breast Mammogram Screening [facility] Start: 12-19-2022 Covid-19 Vaccine ( season) Covid-19 Vaccine () [facility] Start: 12-19-2022 Influenza vaccination Influenza Vaccine (#1) [facility] Start: 01-28-2022 COVID-19 VACCINE (5 - Booster for Pfizer series) COVID-19 VACCINE (5 - Booster for Pfizer series) [facility] Start: 08-24-2019 Screening for malignant neoplasm of breast MAMMOGRAM SCREENING DISCUSSION [facility] Start: 12-20-2016 Screening for osteoporosis Bone Density Screening [facility] Start: 06-17-2014 Diabetes Screening Diabetes Screening [facility] Start: 2011 RSV Vaccine (1 - 1-dose 60+ series) RSV Vaccine (1 - 1-dose 60+ series) [facility] Start: 12-20-2001 Shingrix Vaccine (1 of 2) Shingrix Vaccine (1 of 2) [facility] Start: 12-20-2001 Zoster vaccine hzv live for subcutaneous use ZOSTER (SHINGLES) VACCINE (1 of 2) [facility] Start: 12-20-1996 Lipid panel Lipid Screening [facility] Start: 12-20-1996 Screening for malignant neoplasm of colon [facility] Start: 1991 Lipid panel LIPID SCREENING [facility] Start: 12-20-1972 Screening for malignant neoplasm of cervix CERVICAL CANCER SCREENING DISCUSSION [facility] Start: 12-20-1970 Third diphtheria, tetanus and acellular pertussis (DTaP) vaccination TDAP (ADULT) [facility] Start: 12-20-1970 Urine microalbumin profile DTaP,Tdap,Td Vaccine (1 - Tdap) [facility] Start: 12-20-1969 Annual PCP Team Chronic Disease Visit Annual PCP Team Chronic Disease Visit [facility] Start: 1950 Hepatitis C screening HEPATITIS C VIRUS SCREENING [facility] Start: 1950 Screening for osteoporosis DEXA SCAN DISCUSSION [facility] Start: 1950 Tetanus vaccination TETANUS [facility] End: 07-23-2024 CT Lumbar spine WO contrast CT LUMBAR SPINE WO IVCON Radiology Routine Chronic bilateral low back pain with bilateral sciatica 1 Occurrences starting 06/24/2023 until 07/23/2024 [facility] Work Phone: Comment on above: 1 Occurrences starting 06/24/2023 until 07/23/2024 End: 07-23-2024 MR Thoracic spine WO contrast MRI THORACIC SPINE WO IVCON Radiology Routine 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 1 Occurrences starting 06/24/2023 until 07/23/2024 [facility] Work Phone: Comment on above: 1 Occurrences starting 06/24/2023 until 07/23/2024 Patient Education Stephanie Non Diagn ostic Block [facility] Work Phone: Patient referral [facility] Work Phone: XR Knee - left 3 Views XR KNEE L EFT 3 VIEWS Imaging Routine Pain in prosthetic joint, sequela Ordered: 09/16/2022 [facility] Comment on above: Ordered: 09/16/2022 XR Pelvis and Hip - left Views X R HIP WITH PELVIS LEFT Imaging Routine Pain in prosthetic joint, sequela 09/18/2022 10:11 AM EDT [facility] Work Phone: [facility] Immunizations Immunization Date Immunization Notes Care Provider Fa cili 02-11-2022 Influenza, injectabl e, Madin Alma Canine Kidney, preservative free, quadrivalent MD Sara Vick Work Phone: [facility] 02-11-2022 influenza virus vacc ine, unspecified formulation Ghanshyam Lombardi MD Work Phone: [facility] 12-03-2021 COVID-19 Comirnaty (Pfizer) Tri-Sucrose 12+ MD Sara Vick Work Phone: [facility] 03-25-2021 COVID-19 mRNA, Comir nicolle (Pfizer) MD Sara Vick Work Phone: [facility] 07-12-2020 COVID-19, mRNA, LNP- S, PF, 30 mcg/0.3 mL dose Wm Nagy [facility] Comment on above: Reason for Medicatio n: Prophylaxis 06-14-2020 COVID-19, mRNA, LNP- S, PF, 30 mcg/0.3 mL dose Wm Nagy [facility] Comment on above: Reason for Medicatio n: Prophylaxis 02-08-2020 Seasonal trivalent influenza vaccine, adjuvanted, preservative free MD Sara Vick Work Phone: [facility] 02-23-2018 influenza, injectabl e, madin josephine canine kidney, preservative free MD Sara Vick Work Phone: [facility] 02-18-2018 pneumococcal polysaccharide vaccine, 23 valent Wm Nagy [facility] [place] 06-18-2017 tuberculin skin test ; unspecified formulation Praveen Bynum 02-24-2017 pneumococcal polysaccharide vaccine, 23 valent MD Sara Vick Work Phone: [facility] 02-05-2017 influenza, high dose seasonal, preservative-free MD Sara Vick Work Phone: [facility] 02-05-2017 pneumococcal conjuga te vaccine, 13 valent Wm Nagy [facility] [place] 02-02-2016 influenza, seasonal, injectable, preservative free MD Sara Vick Work Phone: [facility] 10-20-2012 pneumococcal polysaccharide vaccine, 23 valent Wm Nagy [facility] Payers Date Payer Category Payer Unknown [id number] 2022 Self-pay [id number] 2022 Unknown [id number] 2022 Private Health Insurance 2018 Medicare [id number] 1959 Private Health Insurance [id number] 1950 Unknown [id number] 2.16.84 0.1.074956.3.579.2.727 1951 Unknown [id number] 2.16.8 40.1.553672.3.579.2.159 1951 Unknown [id number] 2.16.84 0.1.109031.3.579.2.593 1951 Unknown [id number] 2.16.84 0.1.615302.3.579.2.593 1951 Unknown [id number] 2.16.84 0.1.825174.3.579.2.593 1951 Unknown [id number] 2.16.84 0.1.354333.3.579.2.593 1951 Unknown [id number] 2.16.84 0.1.418445.3.579.2.593 1951 Unknown [id number] 2.16.84 0.1.670683.3.579.2.593 1951 Unknown [id number] 2.16.84 0.1.499186.3.579.2.593 1951 Unknown [id number] 2.16.84 0.1.036031.3.579.2.593 1951 Unknown [id number] 2.16.84 0.1.368136.3.579.2.593 1951 Unknown [id number] 2.16.84 0.1.842359.3.579.2.593 1951 Unknown [id number] 2.16.84 0.1.771157.3.579.2.593 1951 Unknown [id number] 2.16.84 0.1.420157.3.579.2.593 1951 Unknown [id number] 2.16.84 0.1.863855.3.579.2.593 1951 Unknown [id number] 2.16.84 0.1.648428.3.579.2.593 1951 Unknown [id number] 2.16.84 0.1.546384.3.579.2.593 1951 Unknown [id number] 2.16.84 0.1.683435.3.579.2.593 1951 Unknown [id number] 2.16.84 0.1.872668.3.579.2.593 1951 Unknown [id number] 2.16.84 0.1.071474.3.579.2.593 1951 Unknown [id number] 2.16.84 0.1.906847.3.579.2.593 1951 Unknown [id number] 2.16.84 0.1.960242.3.579.2.593 1951 Unknown [id number] 2.16.84 0.1.563395.3.579.2.593 1951 Unknown [id number] 2.16.84 0.1.612062.3.579.2.593 1951 Unknown [id number] 2.16.84 0.1.887716.3.579.2.593 1951 Unknown [id number] 2.16.84 0.1.032123.3.579.2.593 1951 Unknown [id number] 2.16.84 0.1.338111.3.579.2.593 1951 Unknown [id number] 2.16.84 0.1.124779.3.579.2.593 1951 Unknown [id number] 2.16.84 0.1.415100.3.579.2.593 1951 Unknown [id number] 2.16.84 0.1.466001.3.579.2.593 1951 Unknown [id number] 2.16.84 0.1.981058.3.579.2.593 1951 Unknown [id number] 2.16.8 40.1.251149.3.579.2.983 1951 Unknown [id number] 2.16.8 40.1.743519.3.579.2.983 1951 Unknown [id number] 2.16.8 40.1.140129.3.579.2.983 1951 Unknown [id number] 2.16.8 40.1.852132.3.579.2.727 1951 Unknown [id number] 2.16.8 40.1.487375.3.579.2.727 1951 Unknown [id number] 2.16.8 40.1.150643.3.579.2.727 1951 Unknown [id number] 2.16.8 40.1.921479.3.579.2.727 1951 Unknown [id number] 2.16.84 0.1.363039.3.579.2.1259 1951 Unknown [id number] 2.16.84 0.1.055539.3.579.2.1259 1951 Unknown [id number] 2.16.84 0.1.165110.3.579.2.1259 Unknown Unknown [id number] Unknown [id number] 2.16.8 40.1.931711.3.579.2.531 Unknown [id number] 2.16.8 40.1.557518.3.579.2.531 Unknown [id number] 2.16.8 40.1.733413.3.579.2.531 Unknown [id number] 2.16.8 40.1.024729.3.579.2.531 Social History Date Type Detail Facility Start: 06-18-2017 Unknown if ever smoked [employer] Start: 04-24-2020 End: 06-24-2023 Tobacco smoking status PAIS Never smoked tobacco (finding) [facility] Start: 1950 Sex Assigned At Female F [facility] Start: 06-24-2023 Sex Assigned At F [facility] Start: 09-18-2022 Tobacco use and exposure Smokeless tobacco non-user [facility] Start: 09-18-2022 End: 06-24-2023 Alcohol intake Current drinker of alcohol (finding) [facility] Start: 09-18-2022 Alcohol Comment occasional [facility] Start: 1950 Sex Assigned At Not on file [facility] Start: 06-24-2023 Alcohol intake [facility] National Score (1-100), lower number is lower risk 62 [facility] Medical Equipment Procedure Code Equipment Code Equipment Origin al Text Equipment Identifier Dates Arthroplasty, knee, total, minimally invasive Orthopaedic cement, non-medicated [id number] FDA Start: 05-07-2020 Arthroplasty, knee, total, minimally invasive Uncoated knee femur prosthesis, metallic ()[id number] FDA Start: 05-07-2020 Arthroplasty, knee, total, minimally invasive Tibial insert ()[id number] FDA Start: 05-07-2020 Arthroplasty, knee, total, minimally invasive Uncoated knee tibia prosthesis, metallic ()[id number] FDA Start: 05-07-2020 Arthroplasty, knee, total, minimally invasive Polyethylene patella prosthesis ()[id number] FDA Start: 05-07-2020 Goals Date Patient Goal Desired Activity /State Functional Status Date Assessment Result Facility 07-26-2022 Functional Status No [facility] 07-26-2022 Functional Status [facility] 03-08-2022 Functional Status No [facility] Clinical Notes 10-07-2021 to 08-08-2023 Flor [...] PATIENT PRESENTS WITH AN IMPLANTABLE OR ATTACHED SNOUT PULLER: No RADIOLOGY DEPARTMENT: MR; Exam(s) Completed: Spine: Thoracic spine PERIPHERAL IV DATA: Not applicable SIGNED BY: BAY Leo) August 08, 2023 3:59 PM documented in this encounter [facility] 08-08-2023 Note HNO ID: [id number] Author: FLOR ZIEGLER RT (R) Service: Radiology [...] PATIENT PRESENTS WITH AN IMPLANTABLE OR ATTACHED SNOUT PULLER: No RADIOLOGY DEPARTMENT: MR; Exam(s) Completed: Spine: Thoracic spine PERIPHERAL IV DATA: Not applicable SIGNED BY: RT Felipa(R) August 08, 2023 3:59 PM [facility] 07-13-2023 History of Present illness Narrative [...] PATIENT PRESENTS WITH AN IMPLANTABLE OR ATTACHED SNOUT PULLER: No RADIOLOGY DEPARTMENT: CT; Exam(s) Completed: Spine PERIPHERAL IV DATA: Not applicable SIGNED BY: RT Se(Bryce) July 13, 2023 10:44 AM documented in this encounter [facility] 07-13-2023 Note HNO ID: [id number] Author: TORRIE ABRAHAM RT(R) Service: Radiology Author [...] PATIENT PRESENTS WITH AN IMPLANTABLE OR ATTACHED SNOUT PULLER: No RADIOLOGY DEPARTMENT: CT; Exam(s) Completed: Spine PERIPHERAL IV DATA: Not applicable SIGNED BY: TorrieRT Courtney(R) July 13, 2023 10:44 AM [facility] 06-24-2023 Note HNO ID: [id number] Author: GHANSHYAM LOMBARDI MD Service: ? Author [...] discussion. 30 minutes spent Ghanshyam Lombardi MD [facility] 06-24-2023 History of Present illness Narrative [...] Ghanshyam Lombardi MD documented in this encounter [facility] 05-15-2023 Evaluation note Encounter Date Diagnosis [...] In the meantime, she can continue taking [place] as needed all as well as Gabapentin [...] and no personal patient information was compromised. [facility] Other 01-24-2024 Evaluation note* Encounter Date Diagnosis [...] agrees with plan all questions were addressed. [facility] Other 12-28-2023 Evaluation note* Encounter Date Diagnosis Assessment Notes Treatment Notes Treatment Clinical Notes Mar, Lumbar radiculopathy (ICD-10 - M54.16) 72 year old female evaluated via telephonic call for follow up and medication refill for chronic pain. She voices complaints of low back pain with intermittent radiation down the right lower extremity. She continues taking [place] with relief and is requesting a refill of this today. I discussed different treatment options in detail with the patient. She feels medication is managing her pain and does not wish to proceed with injections at this time. I encouraged the patient to start physical therapy as previously discussed. She can also continue taking medications as prescribed and I will refill her [place] as she feels this provides an element [...] pain (ICD-10 - G89.29) Continue medication management. [facility] Other 12-15-2023 Evaluation note* Encounter Date Diagnosis [...] pain (ICD-10 - G89.29) Continue medication management. [facility] Other 10-24-2023 Evaluation note* Encounter Date Diagnosis Assessment Notes Treatment Notes Treatment Clinical Notes Jan, Lumbar radiculopathy (ICD-10 - M54.16) [facility] Other 10-10-2023 Evaluation note* Encounter Date Diagnosis [...] regarding this. Meanwhile, I will refill her [place] as it does provide an element of [...] educated on the risks and benefits of nursing home opioid use. Hydrocodone/Acetamin ophen was refilled today, opioid risk assessment was done as well as pill count. Patient is compliant with opioid medication. The patient denies any opioid related side effects. [facility] Other 09-22-2023 Evaluation note* Encounter Date Diagnosis [...] educated on the risks and benefits of nursing home opioid use. Hydrocodone/Aceta minophen was refilled today, opioid risk assessment was done as well as pill count. Patient is compliant with opioid medication. The patient denies any opioid related side effects. Patients last urine drug screen was positive for alcohol, she is counselled against consuming alcohol. [facility] Other 08-25-2023 Evaluation note* Encounter Date Diagnosis [...] M51.36) Stable, follow up in 4 weeks. [facility] Other 06-02-2023 Evaluation note* Encounter Date Diagnosis [...] nerve blocks in the future if needed. [facility] Other 06-01-2023 History of Present illness Narrative* [...] 09/18/2022 10:58 AM Patient: Leelee Cedillo MR#: [id number] : 1950 Age: 71 y.o. Referring Physician: Sorin Dickerson DO Insurance: Payor[facility] / Plan: MEDICARE [employer] HMO PPO [...] repair GALL BLADDER SURGERY 1999 BACK SURGERY [id number]- FOOT SURGERY [id number] Family History: Her family history is not [...] [x]cane, []bracing Are you followed by a fruit shipper? [] [x] Name: Are you followed by [...] repair GALL BLADDER SURGERY 1999 BACK SURGERY [id number]- FOOT SURGERY [phone] No family history on file. Social History [...] Rash Flagyl [Metronidazole] Dyspepsia [facility]:Result Comment: Electronically Signed By: Rachel SALTER\.br\Date and Time Signed: 07/27/22 15:21 EDT\.br\Electronically Co-Signed By: Ottoniel RUFF, Francisco Bcek\.br\Date and Time Co- Signed: 07/27/22 17:04 [id number] Hospital Discharge instructions Patient Education 07/27/2022 15:20:26 [...] Follow these instructions at home: Medicines Take gxsn-nva-nbdjubo and prescription medicines only as told by [...] 04/06/2006 Document Revised: 07/29/2019 Document Reviewed: 02/23/2019 [employer] Patient Education 2020 [employer] 07/27/2022 15:20:26 Vasovagal Syncope, Pediatric Vasovagal [...] ?Squatting. ?Moving his or her legs. Give efvq-nql-cvjydfu and prescription medicines only as told by [...] 01/13/2009 Document Revised: 03/19/2018 Document Reviewed: 05/12/2017 [employer] Patient Education 2020 [employer]. Follow Up Care 07/26/2022 11:32:57 With:Sara Vick Address: [address] [place] [id number]- Business (1) When: Unknown Comments:Call for followup appointment 7-10 days With:Julio Ferrara MD, NEU Address: [address] [place] [address]- When:2 to [address] [facility]04-09-2023 Evaluation + Plan noteExtracted from: Title:Discharge [...] With When Contact Information Sara Vick [address] [facility] [place] [address]- Business (1) Additional Instructions: Call for followup appointment 7-10 days Josias RUFF, CARLOS Thacker Within 2 to 4 weeks [address] [place] [address]- Additional Instructions: Near-Syncope Vasovagal Syncope, Pediatric Extracted [...] it is acute or subacute. It might last turner to just be some focal white [...] specified devices) recent right foot surgery in [facility]/podiatry secondary to non healing food wound. Currently has wound vac intact to this operative site. 6. Osteoarthritis (M19.90: Unspecified osteoarthritis, unspecified site) osteoarthritis status post left hip replacement Has chronic back pain. 7. 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 Diagnostic Tests Pending * HgbA1c 07/27/[address] [facility]04-08-2023 [facility] HospitalComment on above:Result Comment: Electronically Signed By: [...] if her pain increases in the future. [facility] Other [id number] NotePROCEDURE: XR FOOT RT MIN 3 VIEWS, [...] Electronically authenticated by: JULIO LOBATO Date: 2022-04-23 13:00[facility]01-04-2023 NotePROCEDURE: XR FOOT RT MIN 3 [...] Electronically authenticated by: JULIO LOBATO Date: 2022-04-23 13:00[facility]12-12-2022 NotePROCEDURE: XR ANKLE RT MIN 3 [...] Electronically authenticated by: ALFRED UMAÑA Date: 2022-03-31 18:19[facility]11-19-2022 Hospital Discharge instructions Patient Education 03/08/2022 [...] 04/06/2006 Document Revised: 04/15/2017 Document Reviewed: 03/23/2017 [employer] Patient Education 2020 [employer] 03/08/2022 17:44:27 Hip Dislocation Hip Dislocation [...] Follow these instructions at home: Medicines Take byvj-gug-istxuuw and prescription medicines only as told by your health care provider. Ask your health care provider if the medicine prescribed to you: ?Requires you to avoid driving or using heavy machinery. ?Can cause constipation. You may need to take actions to prevent or treat constipation, such as: ?Drink enough fluid to keep your urine pale yellow. ?Take vjbv-bwc-uvqxnjb or prescription medicines. ?Eat foods that are [...] in the [place] Do not drive yourself [facility]. Summary Hip dislocation happens when the ball [...] 12/30/2001 Document Revised: 12/29/2018 Document Reviewed: 12/30/2018 [employer] Patient Education 2020 [employer]. Follow Up Care 03/08/2022 13:37:46 With:Sorin DICKERSON Address: [address] [place] [address] Business (1) When:03/11/2022 17:44:09 Comments:Call to establish follow-up care. Wear brace until follow-up with orthopedic surgery. With:Sara Vick Address: [address] [place] [address] [place] [address]- Business (1) When:03/11/2022 17:43:29 Comments:Call the office [...] you develop any new or worsening symptoms. [facility]11-19-2022 Evaluation + Plan noteExtracted from: Title:ED [...] XR Hip 2-3 Views Left + Pelvis [facility]11-18-2022 Evaluation note* Encounter Date Diagnosis Assessment [...] negative findings were considered in medical decision-making. [facility] Other [id number] NotePROCEDURE: XR FOOT RT MIN 3 VIEWS [...] Electronically authenticated by: JULIO LOBATO Date: 2021-10-07 11:44[facility] CenterEvaluation noteNo InformationNort [employer] Other Evaluation noteNo assessment information available [facility] Work Phone: Evaluation note* Diagnosis Pain in prosthetic joint, sequela- Primary [facility] Diagnosis Adjacent segment disease of lumbar spine with history of fusion procedure- Primary Chronic bilateral low back pain with bilateral sciatica [facility]* Diagnosis 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) documented [facility]* Diagnosis Chronic bilateral low back pain with bilateral sciatica documented [facility]* Diagnosis Onset Date Resolution Status Chronic pain acute Lumbar degenerative disc disease acute Lumbar radiculopathy acute Lumbosacral spondylosis acut e Sacroiliitis acute 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 acute Chronic pain acute Lumbar degenerative disc disease acute Lumbar radiculopathy acute Lumbosacral spondylosis acut e Sacroiliitis acute [facility] Work Phone: Evaluation note* Diagnosis 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 documented in this encounter [facility] general Narrative - Reported* Type Description [...] 2 021 Surgical History back surgeries x5 [facility] Acquisio yuandr gilman 2018 [facility] Other [facility] general Narrative - Reported* Type Description Date [...] 2 021 Surgical History back surgeries x5 [facility] [place] Acquisio yuandr gilman 2019 Hospitalization History see above [facility] Other [facility] general Narrative - Reported* Type Description Date [...] 2 021 Surgical History back surgeries x5 [facility] carisa-dr gilman 2018 Surgical History lazer surgery on her lt leg veins and she also had sclero tx on b/l legs 2022 Hospitalization History see above [facility] Other Hospital course Narrative No data available for this section [facility] No data available for this section [facility]Reason [facility] (narrative)* Diagnostic Procedure Only (Routine) - Closed Specialty Diagnoses / Procedures Referred By Maximiliano dee Referred To Contact XR IMAGING Diagnoses Fusion of spine of thoracolumbar region Procedures XR SCOLIOSIS PA STAND/LAT 2V RADEX ENTIR THRC LMBR CRV SAC SPI W/SKULL 2/3 VW Ros Cedeño APRN.INTERNATIONAL STUDENT ADVISOR [address] [place] [address] X[facility] [place] [address] Referral ID Status Reason Start Date Expiration Date V isits Requested Visits Authorized [id number] Closed Auto-Generate d Referral 02/25/2023 03/26/2024 1 1 * Diagnostic Procedure Only (Routine) - Closed Specialty Diagnoses / Procedures Referred By Maximiliano dee Referred To Contact XR IMAGING Diagnoses Fusion of spine of thoracolumbar region Procedures XR LUMBAR MOTION 4V AP/LAT/ FLEX/EXT RADEX SPINE LUMBOSACRAL MINIMUM 4 VIEWS Ros Cedeño APRN.INTERNATIONAL STUDENT ADVISOR [address] [place] [place] [id number] [facility] [place] [address] Referral ID Status Reason Start Date Expiration Date V isits Requested Visits Authorized [id number] Closed Auto-Generate d Referral 02/25/2023 03/26/2024 1 1 [facility] for referral (narrative)* Diagnostic Procedure Only (Routine) - Closed Specialty Diagnoses / Procedures Referred By Maximiliano t Referred To Contact MR IMAGING Diagnoses 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 Procedures MRI THORACIC SPINE WO IVCON MRI SPINAL CANAL THORACIC W/O CONTRAST MATRL Ghanshyam Lombardi MD [address] [place] [address] Mr [facility] [place] [address] Referral ID Status Reason Start Date Expiration Date V isits Requested Visits Authorized [id number] Closed Auto-Generate d Referral 08/07/2023 09/07/2023 1 1 [facility] for visit Narrative* Diagnostic Procedure Only (Routine) - Closed Specialty Diagnoses / Procedures Referred By Maximiliano t Referred To Contact XR IMAGING Diagnoses Fusion of spine of thoracolumbar region Procedures XR SCOLIOSIS PA STAND/LAT 2V RADEX ENTIR THRC LMBR CRV SAC SPI W/SKULL 2/3 VW Ros Cedeño, MANAGER [employer].INTERNATIONAL STUDENT ADVISOR [address] [place] [address] [facility] [place] [address] Referral ID Status Reason Start Date Expiration Date V isits Requested Visits Authorized [id number] Closed Auto-Generate d Referral 02/25/2023 03/26/2024 1 1 [facility] Advance Directives No Advanced Directives Records [...] FOLLOW UP; PVR'S, FF ULTRAS[facility] DONE [place] [facility] [place] Reason for [...] W/O CONTRAST MATERIAL Ghanshyam Lombardi MD [address] [place] [address] Ct Imaging [facility] Referral ID Status Reason Start Date Expiration Date Visits Requested Visits Authorized [id number] Pending Review Auto-Generat ed Referral 06/24/2023 07/23/2024 1 1 Specialty Diagnoses / Procedures Referred By Contac t Referred To Contact MR IMAGING Diagnoses 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 Procedures MRI THORACIC SPINE WO IVCON MRI SPINAL CANAL THORACIC W/O CONTRAST MATRL Ghanshyam Lombardi MD [address] [place] [id number] Mr Imaging [facility] Referral ID Status Reason Start Date Expiration Date Visits Requested Visits Authorized [id number] Pending Review Auto-Generat ed Referral 06/24/2023 07/23/2024 1 1 Specialty Diagnoses / Procedures Referred By Contac t Referred To Contact Diagnoses Pain in prosthetic joint, sequela Procedures XR HIP WITH PELVIS LEFT Perfecto Burch MD [address] [place] [address] Referral ID Status Reason Start Date Expiration Date V isits Requested Visits Authorized [id number] New Request 09/18/2022 10/13/2023 1 1 Specialty Diagnoses / Procedures Referred By Contac t Referred To Contact Diagnoses Pain in prosthetic joint, sequela Procedures XR KNEE LEFT 3 VIEWS Perfecto Burch MD [address] [place] [address] Referral ID Status Reason Start Date Expiration Date V isits Requested Visits Authorized [id number] New Request 09/16/2022 10/11/2023 1 1 Additional Source Comments INFORMATION SOURCE (unrecogn ized section and content) DATE CREATED AUTHOR 12/13/2017 [facility] DATE CREATED AUTHOR AUTHOR'S ORGANIZ ATION 07/10/2018 [place] [facility] DATE CREATED AUTHOR AUTHOR'S ORGANIZ ATION 02/25/[address] [facility] ical Center DATE CREATED AUTHOR AUTHOR'S ORGANIZ ATION 03/01/2022 [facility] Me dical Specialist DATE CREATED AUTHOR AUTHOR'S ORGANIZ ATION 07/26/2022 [facility] DATE CREATED AUTHOR AUTHOR'S ORGANIZ ATION 09/27/2022 [facility] DATE CREATED AUTHOR AUTHOR'S ORGANIZ ATION 09/27/2022 [facility] DATE CREATED AUTHOR AUTHOR'S ORGANIZ ATION 11/26/2022 [place] [facility] DATE CREATED AUTHOR AUTHOR'S ORGANIZ ATION 07/29/2023 [facility] y[facility] DATE CREATED AUTHOR AUTHOR'S ORGANIZ ATION 08/09/2023 [facility] dical Specialists EPIC DATE CREATED AUTHOR AUTHOR'S ORGANIZ ATION 11/05/2023 [facility] REASON FOR VISIT (unrecogniz ed section and content) Specialty Diagnoses / Procedures Referred By Contac t Referred To Contact Diagnoses Pain in prosthetic joint, sequela Procedures XR HIP WITH PELVIS LEFT Perfecto Burch MD [address] [place] [address] Referral ID Status Reason Start Date Expiration Date V isits Requested Visits Authorized [id number] New Request 09/18/2022 10/13/2023 1 1 Reason Comments Pain New Patient Reason Comments New Patient Specialty Diagnoses / Procedures Referred By Contac t Referred To Contact CT IMAGING Diagnoses Chronic bilateral low back pain with bilateral sciatica Procedures CT LUMBAR SPINE WO IVCON CT LUMBAR SPINE W/O CONTRAST MATERIAL Ghanshyam Lombardi MD [address] [place] [address] Ct Imaging [facility] Referral ID Status Reason Start Date Expiration Date V isits Requested Visits Authorized [id number] Closed Auto-Generate d Referral 07/11/2023 08/10/2023 2 [...] A17 300 Ghanshyam Lombardi MD [address] [place] [address] [address] [employer] [address] [place] [id number] Referral ID Status Reason Start Date Expiration Date Visits Re quested Visits Authorized [id number] Closed 08/07/2023 09/07/2023 1 1 Patient Care team informatio n (unrecognized section and content) Team Status: Active Member Role Status Dates Sara Vick MD Primary Care Provider Active Team Status: Inactive Member Role Status Dates Sara Vick MD Primary Care Provider, Attending Pr dusty Active Retail Coordinator Relationship Specialty Start Date End Date Sara Vick MD [address] [place] [address] PCP - General Family Medicine 04/09/22 Retail Coordinator Relationship Specialty Start Date End Date Sara Vick MD [address] [place] [address] PCP - General Family Medicine 04/09/22 Team [...] May 22, 2023 End: May 22, 2023 Retail Coordinator Relationship Specialty Start Date End Date Sara Vick MD PCP - General Family Medicine 06/09/11 Retail Coordinator Relationship Specialty Start Date End Date Sara Vick MD PCP - General Family Medicine 06/09/11 Retail Coordinator Relationship Specialty Start Date End Date Sara [...] 20, 2023 End: May 20, 2023 Deepali Janesn PA-C Attending Provider Active Start: May 20, [...] or prosecute any alcohol or drug abuse patient.[facility] HospitalIn the event this information is protected by the Federal Confidentiality of Alcohol and Drug Abuse Patient Records regulations: The Federal rules restrict any use of the information to criminally investigate or prosecute any alcohol or drug abuse patient.[facility] HospitalIn the event this information is protected by the Federal Confidentiality of Alcohol and Drug Abuse Patient Records regulations: The Federal rules restrict any use of the information to criminally investigate or prosecute any alcohol or drug abuse patient.[facility] HospitalIn the event this information is protected by the Federal Confidentiality of Alcohol and Drug Abuse Patient Records regulations: The Federal rules restrict any use of the information to criminally investigate or prosecute any alcohol or drug abuse patient.[facility] FOR RECORDS PERTAINING TO PATIENTS WHO [...] CLINICAL RECORDS. [facility] [employer] [facility]. provides no warranty or guarantee of the accuracy or completeness of information in this document.
== END 2024-07-06 10:29 | disposition home or self-care (01) ==
LOC: WC 10:29
PROVIDERS: PCP Family Medicine; Visit Provider Physician Assistant
DX: L89.892 Pressure ulcer of other site, stage 2 (principal); L97.521 Non-pressure chronic ulcer of other part of left foot limited to breakdown of skin
CPT/HCPCS: 11042

== ENCOUNTER 2024-07-20 08:59 | Outpatient (OUT) | payer MEDICARE, SELFPAY ==
--- OUTSIDE RECORDS SUMMARY | 2024-07-20 09:22 | XMS_ITS | CCD ---
Author Organization [facility] Care Team Providers Care Office Support Specialist Name Role Phone Praveen Lopez Unavailable Unavailable PHYSICIAN, DEFAULT Unavailable Unavailable PHYSICIAN, DEFAULT Unavailable Unavailable SARA VICK Unavailable Unavailable Sara Vick~[phone] UNKNOWN Admitting Unavailable Sara Vick~[phone] UNKNOWN Attending Unavailable Sara Vick~[phone] UNKNOWN Referring Unavailable Sara Vick Primary Care Provider Trino Yoo Attending Provider Larry Brown Unavailable Sara Vick Primary Care Physician Lynn Salas Unavailable Unavailable Flor Wheeler Unavailable Unavailable ADELE FLEMING Attending Unavailable SARA VICK Primary Care Unavailable MD Sara Vick Primary Care Provider [phone] MD Sara Vick Attending Provider DEEPALI JANSEN [...] ADELE Means Attending Unavailable HOY ., DR URIZ Primary Care Unavailable WEST, DR ALFRED Deal [...] DICKERSON Referring Unavailable PERFECTO BURCH Attending Unavailable ASRA VICK Primary Care Unavailable PERFECTO BURCH Referring Unavailable Sara Vick MD Primary Care Provider [phone] Julio Ferrara Consulting Unavailable Francisco Alcazar S Admitting Unavailable Francisco Alcazar S Attending Unavailable Petrolia, Julio Consulting Unavailable Petrolia, Julio Consulting Unavailable Petrolia, Julio Consulting Unavailable Petrolia, Julio Consulting Unavailable Petrolia, Julio Consulting Unavailable Petrolia, Julio Consulting Unavailable Petrolia, Julio Consulting Unavailable Petrolia, Julio Consulting Unavailable Wm Nagy Attending Unavailable Flavio Castillo Attending Unavailable Alley Naranjo Admitting Unavailable Alley Naranjo Attending Unavailable Jose A, Alley Referring Unavailable Dominique Shane Unavailable MD Sara Vick Primary Care Provider MD Larry Brown Attending Provider [phone] Kiran Kessler Unavailable HAILEY Jansen Attending Provider MD Kiran Kessler Attending Provider Sara Vick MD Primary Care Provider [phone] Sara Vick Primary Care Unavailable Stephanie, Larry S Admitting Unavailable Larry Brown S Attending Unavailable Hoy, Sara M Primary Care Unavailable Deepali Jansen Admitting Unavailable Deepali Jansen Attending Unavailable Sara Vcik M Primary Care Unavailable Kiran Kessler Admitting Unavailabl Kiran Hendrix Attending Unavailabl e Hoy, Sara M Primary Care Unavailable Stephanie, Larry S Admitting Unavailable Larry Brown S Attending Unavailable MD Sara Vick Primary Care Provider [phone] HAILEY Jansen Attending Provider MD Kiran Kessler Attending Provider ANNIE JIMENEZ [...] Sulfonamides (Antibiotic) Drug allergy (disorder) 08-02-19 10 [facility] Repository (4 sources) Sulfamethoxazole; Translations: [sulfamethoxazole ] Drug Allergy Cutaneous eruption (morphologic abnormality) [facility] Repository (2 sources) Sulfur; Translations: [Sulfur] Drug Allergy [facility] Repository (11 sources) Sulfonamides (Antibiotic); Translations: [Sulfa (Sulfonamide Antibiotics)] Allergy to substance 07-17-19 07 Rash [facility] (17 sources) Sulfacetamide Drug Allergy 09-19-19 23 [employer] Other (2 sources) metroNIDAZOLE Drug Allergy 09-19-19 23 Dyspepsia [facility] (1 source) Sulfacetamide Drug Allergy 07-01-19 24 [facility] Repository Medications Current Medications Medication Drug Class(es) [...] for 30 days Dec, Active Start: 03-08-2022 Colton 325 mg-5 mg oral tablet 1 tab(s), Oral, q4hr for pain, 12 tab(s), Refill(s) 0, [facility]/pharmacy #[id number], 172, cm, 03/08/22 13:49:00 EST, Height/Length [...] Daily, # 30 tab(s), Refills(s) 0, Pharmacy: [facility]/pharmacy #[id number], 172.7, cm, 07/26/22 11:43:00 EDT, Height/Length [...] 06/19/2017 9:00:00 take 1 capsule by mo [facility] every twenty-four hours Vitamin D3 50 MCG [...] 1:00am Start: 06-19-2017 take 1 tablet by [facility] once daily Pantoprazole Sodium Tablet Delayed Release [...] Start: 07-26-2022 take 2 tablets by mo [facility] every eight hours as needed for muscle spasms tiZANidine 4 mg Tab 8 mg = 2 tab(s), Oral, q8hr, PRN Spasm, Refills(s) 0 Start Date: 07/26/22 Status: Ordered Start: 06-19-2017 take 2 tablets by mo [facility] twice daily Zanaflex Tablet 4 MG 2 tablet Tablet Oral GIVE 2 TABS (8MG) BY MOUTH TWICE DAILY FOR MUSCLOSKELETAL 06/19/2017 9:00:00 take 1 capsule by [facility] once daily at bedtime tiZANidine HCl 4 mg capsule Take 4 mg by mouth daily at bedtime. 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 Embedded Systems Software Developer: [facility] Transcribe Date/Time: Aug 08 2023 9:09P Dictated by : HARRY JONES MD This examination was interpreted and the report reviewed and electronically signed by: HARRY JONES MD on Aug 08 2023 9:14PM EST [id number] Normal [facility] BI MAMMOGRAM SCREENING TOMOS YNTHESIS BILATERALon 08-05-2023 [...] IS VERY IMPORTANT TO YOUR HEALTH. THE [employer] GUIDELINES RECOMMEND THAT WOMEN 40 [...] DATE OF EXAM: Jul 13 2023 11:11AM [facility] 0508 - CT LUMBAR SPINE WO [...] are 5 lumbar-type vertebrae. Anatomic variant: None. Pile Driving Technician (topogram) images: Left femoroacetabular arthroplasty. Alignment: Mild [...] any questions regarding this interpretation, please call [phone]. If you are unable to reach us at the number above, please feel free to contact [facility] eRadiology at [phone]. [id number] Normal [facility] CT Lumbar spine WO contrasto n 07-13-2023 [facility] CNOVon 06-24-2023 CNOV Office Visit (SPNSMN ) LEELEE CEDILLO ([id number]) 1950 F Date Time Provider Department 06/24/23 [...] Ghanshyam Lombardi MD Referring Provider: SARA VICK [[id number]] Allergies As of Date: 06/24/2023 Noted Allergy Reaction SULFA (SULFONAMIDE ANTIBIOTICS) 07/16/2006 Date Reviewed: 06/24/2023 Reviewed by: Kaur Manzano MA - Fully Assessed Reason for Visit: New Patient [172] Primary Visit Diagnosis:Adjacent segment disease of lumbar spine with history of fusion procedure [M51.36, Z98.1] Other Visit Diagnosis:Chronic bilateral low back pain with bilateral sciatica [M54.42, M54.41, G89.29] Order(s):MRI THORACIC SPINE WO IVCON [[id number]] Order #: [id number] FUTURE CT LUMBAR SPINE WO IVCON [[id number]] Order #: [id number] FUTURE Prescriptions as of 06/24/2023 - pantoprazole [...] Status:Closed by GHANSHYAM LOMBARDI on 06/24/23 Normal [facility] XR LUMBAR 4V AP/LAT/ FLEX/EX [...] Number of different views (projections): 2 (accession [id number]), 4 (accession [id number]) COMPARISON: Radiographs dated 09/23/2021 RESULT: Counting reference: [...] changes with no evidence of hardware complication. Embedded Systems Software Developer: [employer] Transcribe Date/Time: Jun 24 2023 12:52P Dictated by : LATASHA QUEZADA MD This examination was interpreted and the report reviewed and electronically signed by: LATASHA QUEZADA MD on Jun 24 2023 12:55PM EST [id number] Normal [facility] XR Lumbar spine Views W flex ion and W extensionon 06-24-2023 [facility] XR SCOLIOSIS 2V PA STAND/LAT [...] Number of different views (projections): 2 (accession [id number]), 4 (accession [id number]) COMPARISON: Radiographs dated 09/23/2021 RESULT: Counting reference: [...] changes with no evidence of hardware complication. Embedded Systems Software Developer: [employer] Transcribe Date/Time: Jun 24 2023 12:52P Dictated by : LATASHA QUEZADA MD This examination was interpreted and the report reviewed and electronically signed by: LATASHA QUEZADA MD on Jun 24 2023 12:55PM EST [id number] Normal [facility] XR Thoracic and lumbar spine Views for scoliosis W standingon 06-24-2023 [facility] US arterial pvr rest Vito US arterial pvr rest [facility] [place] [address] Ultrasound Report Signed Patient: Leelee Cedillo MR#: [id number] 56 : 1950 Acct:[id number] Age/Sex: 72 / F ADM Date: 05/22/23 [...] Drake Bates M.D.05/25/2023 10:58 AM Dictation Location: [place] [address] Tech: Katy Leone Transcribed By: LISBETH 05/25/23 1058 Dictated By: Drake Bates MD 05/25/23 1057 Signed By: 05/25/23 1058 Normal [facility] US venous duplex LE BIon US venous duplex LE BI [facility] [place] [address] Ultrasound Report Signed Patient: Leelee Cedillo MR#: [id number] 56 : 1950 Acct:[id number] Age/Sex: 72 / F ADM Date: 05/22/23 [...] vein has previously been stripped. No significant ice guard tester incompetence is noted. The lesser saphenous vein [...] Drake Bates M.D.05/25/2023 10:57 AM Dictation Location: [place] [address] Tech: Katy Leone Transcribed By: LISBETH 05/25/23 1057 Dictated By: Drake Bates MD 05/25/23 1055 Signed By: 05/25/23 1057 Normal [facility] ED Note-Physicianon 11-26-19 ED Note-Physician Normal [facility] Comment on above: Result Comment: Elec tronically Signed By: Sathya De La O PA-C\.br\Date and Time Signed: 11/22/22 14:13 EDT\.br\Electronically Co-Signed By: Flavio Castillo MD\.br\Date and Time Co-Signed: 11/25/22 13:23 EDT Consent for Treatmenton Consent for Treatment [id number]#1.0 0CD:127 Normal [facility] Discharge Instructionson Discharge Instructions [id number]#1. 00CD:127 Normal [facility] ED Clinical Summaryon 2022 ED Clinical Summary Normal Stefania wu [facility] ED Patient Education Noteon 11-22-2022 ED Patient Education Note Normal [facility] ED Patient Summaryon 023 ED Patient Summary Normal [facility] Neurology Forms- [employer] Neurology Forms- Text [id number]#1. 00CD:127 Normal [facility] EEGon 09-11-2022 EEG [facility] Comment on above: Result Comment: Elec tronically Signed By: Jonathan Powell DO\.br\Date and Time Signed: 09/11/22 10:41 EDT Consent for Treatmenton 08-19 Consent for Treatment [id number]#1.0 0CD:127 Normal [facility] Physician Orderon 09-03-2022 Physician Order [id number]#1.0 0CD:127 Normal [facility] VC CONSULT FOLLOWUPon 2022 VC CONSULT FOLLOWUP Patient: ITZEL CEDILLO Exam Date: 08/08/2022 : 1950 Gender:F Ordering : DR ALFRED UMAÑA M.D. Admission #: [id number] Family : Order #: [id number] CLICK HERE TO VIEW EXAM RADIOLOGY REPORT [...] Umaña MD on 08/08/2022 at 10:59 Normal [facility] EXT VENOUS LT LIMITEDon 0 08-08-2022 VC EXT VENOUS LT LIMITED Patient: LEELEE CEDILLO Exam Date: 08/08/2022 : 1950 Gender:F Ordering : DR ALFRED UMAÑA M.D. Admission #: [id number] Family : Order #: [id number] CLICK HERE TO VIEW EXAM RADIOLOGY REPORT [...] Umaña MD on 08/08/2022 at 09:43 Normal [facility] Coding Summary.on 07-29-2022 Coding Summary. Normal [facility] Insurance Correspondenceon 0 07-29-2022 Insurance Correspondence [id number]#1.0 0CD:127 Normal [facility] Insurance Correspondence Off iceon 07-29-2022 Insurance Correspondence Office [id number]#1. 00CD:127 Normal [facility] Discharge Instructionson Discharge Instructions [id number]#1. 00CD:127 Normal [facility] DuaQ4ntu 07-28-2022 HbA1c (Bld) [Mass fraction] 5.3 % Normal <=5.9 [facility] Comment on above: Performed By: #### 2 696995, 0018594, 1929505, 4956031, [id number], 32913039 ####[facility] [address] [place] [address] Insurance Correspondenceon 0 07-28-2022 Insurance Correspondence [id number]#1. 00CD:127 Normal [facility] C. diff by PCRon 07-27-2022 Clostridium difficile by PCR Negative Normal Negative [facility] Comment on above: Order Comment: Order added by Discern Expert. Result Comment: This test result should be correlated with clinical presentations and medical history by a healthcare provider to determine its clinical significance. Performed By: #### 3 [id number], [id number], [id number] ####[facility] [address] [facility] [place] [address] CDiff PCRon 07-27-2022 Cdiff Specimen Acceptable Acceptable Normal [facility] Comment on above: Performed By: #### 3 [id number], [id number], [id number] ####[facility] [address] [facility] [place] [address] Order Cancelled No, PCR to follow Normal [facility] Comment on above: Performed By: #### 3 [id number], [id number], [id number] ####[facility] [address] [place] [id number] CHEMISTRYOrdered By: SYSTEM SYSTEM on 07-27-2022 Anion [...] Noteon 07-28-19 Consultation Note Normal [facility] Comment on above: Result Comment: Elec tronically Signed By: Rachel MEEHAN, Smita Reardon\.br\Date and Time Signed: 07/27/22 07:14 EDT\.br\Electronically Co-Signed By: Jonathan Powell DO\.br\Date and Time Co-Signed: 07/27/22 10:23 EDT EMS Documentationon 07-28-19 EMS Documentation Normal [facility] EMS Documentation Normal [facility] EMS Documentation Normal [facility] Enteric Panel by PCRon 07-27 C. coli+jejuni+upsaliens is DNA VIVIANA+non-probe Ql (Stl) Not detected Normal [facility] Comment on above: Result Comment: Test ing was performed utilizing reverse insurance agency sales manager (RT), polymerase chain reaction (PCR), and [...] nulcleic acid test. Performed By: #### 3 [id number], [id number], [id number] ####[place] [address] [place] [address] E. coli stx1+stx2 genes VIVIANA+non-probe Ql (Stl) Negative Normal [facility] Comment on above: Performed By: #### 3 [id number], [id number], [id number] ####[place] [address] [place] [address] Enteric Panel Intrl QC Pass Normal [facility] Comment on above: Result Comment: Test ing was performed utilizing reverse insurance agency sales manager (RT), polymerase chain reaction (PCR), and [...] 1 and 2. Performed By: #### 3 [id number], [id number], [id number] ####[place] [address] Norovirus genogroup I+II RNA VIVIANA+non-probe Ql (Stl) Not detected Normal [facility] Comment on above: Performed By: #### 3 [id number], [id number], 290262546 ####[place] [address] Rotavirus A RNA VIVIANA+non-probe Ql (Stl) Not detected Normal [facility] Comment on above: Performed By: #### 3 [id number], 1616242886, 865538300 ####[place] [address] S. enterica+bongori DNA VIVIANA+non-probe Ql (Stl) Not detected Normal [facility] Comment on above: Result Comment: This test result should be correlated with clinical presentations and medical history by a healthcare provider to determine its clinical significance. Performed By: #### 3 [id number], [id number], [id number] ####[place] [address] Shigella species+EIEC invasion plasmid antigen H ipaH gene VIVIANA+non-probe Ql (Stl) Not detected Normal [facility] Comment on above: Performed By: #### 3 [id number], 1239188100, 356868427 ####[place] [address] V. cholerae+parahaemolyt icus+vulnificus DNA VIVIANA+non-probe Ql (Stl) Not detected Normal [facility] Comment on above: Performed By: #### 3 [id number], [id number], 628699081 ####[facility] [address] [place] [address] Y. enterocolitica DNA VIVIANA+non-probe Ql (Stl) Not detected Normal [facility] Comment on above: Performed By: #### 3 [id number], 2098696574, 831440240 ####[facility] [address] [place] [address] Free T4on 07-27-2022 Free T4 [Mass/Vol] 1.91 ng/dL High 0.58-1.64 [facility] Comment on above: Order Comment: Free T4 added by Discern Rule due to a TSH result of <0.34 or >5.60. Performed By: #### 2 112212, 1227358, 1120426, 9409554, 855224369, 36294738 ####[facility] [address] [place] [address] HEMATOLOGYOrdered By: Tonya Martin on 07-27-2022 WBC corrected for nucl RBC Auto (Bld) [#/Vol] 7.8 E9/L Normal 4.0 - 11.0 E9/L [facility] HemeAutoSS Inpatient Clinical Summaryon 07-27-2022 Inpatient Clinical Summary Normal [facility] Inpatient Patient Summaryon 07-27-2022 Inpatient Patient Summary Normal [facility] Inpatient Patient Summary Normal [facility] Interdisciplinary Note - Oumar e Manageron 07-27-2022 Interdisciplinary Note - Research Geologist Normal [facility] Comment on above: Result Comment: Elec tronically Signed By: Tonya Matias.alicja\Date and Time Signed: 07/27/22 12:04 EDT Interdisciplinary Note - Pipe n 07-27-2022 Interdisciplinary Note - OT Normal [facility] Interdisciplinary Note - PTo n 07-27-2022 Interdisciplinary Note - PT PT eval completed; pt scores 16/24 on the AM-PAC 6-Clicks 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 Pt is able to safely perform bed <> chair transfers as she was doing prior to admission and has no further PT needs at this time. Normal [facility] Lipid Panelon 07-27-2022 Cholesterol in LDL [Mass/Vol] 91 mg/dL Normal <=129 [facility] Comment on above: Performed By: #### 2 626099, 2664950, 1025197, 9599049, 335636071, 96138484 ####[facility] [address] [place] [address] Cholesterol [Mass/Vol] 160 mg/dL Normal 120-200 [facility] Comment on above: Performed By: #### 2 542191, 0612240, 2999519, 5676799, 078596273, 51482735 ####[facility] [address] [place] [address] Cholesterol in HDL [Mass/Vol] 52 mg/dL Invalid Interpretation Code [facility] Comment on above: Result Comment: HDL > or equal to 60 mg/dL: Low cardiovascular riskHDL < 40 mg/dL : High cardiovascular risk Performed By: #### 2 440268, 8294904, 2023748, 4782794, 536290171, 44906211 ####[facility] [address] [place] [address] Cholesterol in VLDL [Mass/Vol] 17 mg/dL Normal 7-40 [facility] Comment on above: Performed By: #### 2 950749, 1595430, 3216620, 4252131, 802953447, 34058865 ####[facility] [address] [place] [address] Triglyceride [Mass/Vol] 83 mg/dL Normal <=149 [facility] Comment on above: Performed By: #### 2 916765, 8161519, 9379385, 4661439, 683340667, 36616104 ####[facility] [address] [place] [address] Lyteson 07-27-2022 Anion gap [Moles/Vol] 9 mmol/L Normal 6-16 [facility] Comment on above: Performed By: #### 2 446381, 9814423, 2525125, 4416466, 062460018, 05005047 ####[facility] [address] [place] [address] Chloride [Moles/Vol] 106 mmol/L Normal 101-111 [facility] Comment on above: Performed By: #### 2 606565, 3343578, 1121617, 3381857, 225138147, 33486435 ####[facility] [address] [place] [address] CO2 [Moles/Vol] 26 mmol/L Normal 21-31 [facility] Comment on above: Performed By: #### 2 682539, 9414802, 6109803, 9071902, 227410475, 43406601 ####[facility] [address] [place] [address] Potassium [Moles/Vol] 4.0 mmol/L Normal 3.5-5.3 [facility] Comment on above: Performed By: #### 2 472578, 8413920, 2943764, 5125564, 111060348, 26137153 ####[facility] [address] [place] [address] Sodium [Moles/Vol] 137 mmol/L Normal 135-145 [facility] Comment on above: Performed By: #### 2 411862, 2374752, 7253957, 4311015, 013687849, 03569651 ####[facility] [address] [place] [address] MRA Head w/o Contraston MRA Head w/o Contrast Normal [facility] MRI Brain w/o Contraston MRI Brain w/o Contrast Normal [facility] Monitor Recordon 07-27-2022 Monitor Record [id number]#1. 00CD:127 Normal [facility] Monitor Record [id number]#1. 00CD:127 Normal [facility] Patient Education - Texton 0 07-27-2022 Patient Education - Text Normal [facility] RAD - MRI Screening Formon 0 07-27-2022 RAD - MRI Screening Form [id number]#1. 00CD:127 Normal [facility] TSH With T4fr Reflexon 07-27 TSH Qn 0.16 m[IU]/L Low 0.34-5.60 [facility] Comment on above: Performed By: #### 2 843796, 4759989, 3896543, 8250735, 834227068, 50546633 ####[facility] [address] [place] [address] Troponin 9 Hr.on 07-27-2022 Troponin I.cardiac [Mass/Vol] 6.70 pg/mL Low 10.10-27.10 [facility] Comment on above: Result Comment: The 95% CI (Confidence Interval) PPV (Positive Predictive Value) for myocardial infarction in females is 38 pg/mL, in males 51 pg/mL. The results should be used in conjunction with clinical conditions of myocardial infarction.(Access High Sensitivity Troponin I Instructions For Use, [employer], November 2017) Performed By: #### 1 [id number] ####[facility] [address] [place] [address] WBCon 07-27-2022 WBC corrected for nucl RBC Auto (Bld) [#/Vol] 7.8 E9/L Normal 4.0-11.0 [facility] Comment on above: Performed By: #### 2 002133, 8587959, 8111201, 3883946, 277327331, 18696865 ####[facility] [address] [place] [address] Auto Diffon 07-26-2022 Basophils/100 WBC (Bld) 0.5 % Normal 0.0-2.0 [facility] Comment on above: Order Comment: Order Added by Discern Expert. Performed By: #### 2 629062, 0863003, 1999319, 4179155, 97341975, 84421599 ####[facility] [address] [place] [address] Basophils/Leukocytes Auto (Bld) [Pure # fraction] 0.1 E9/L Normal 0.0-0.2 [facility] Comment on above: Order Comment: Order Added by Discern Expert. Performed By: #### 2 958674, 6120769, 0037868, 3777426, 56410293, 48597482 ####[facility] [address] [place] [address] Eosinophils/100 WBC (Bld) 0.5 % Normal 0.0-8.0 [facility] Comment on above: Order Comment: Order Added by Discern Expert. Performed By: #### 2 883010, 3016636, 3651946, 4854129, 73907310, 04469097 ####[address] [address] Eosinophils/Leukocyte s Auto (Bld) [Pure # fraction] 0.1 E9/L Normal 0.0-0.5 [facility] Comment on above: Order Comment: Order Added by Ham Expert. Performed By: #### 2 579674, 7591216, 7020566, 6252433, 41735744, 96984692 ####[address] [address] Lymphocytes/100 WBC (Bld) 14.5 % Normal 14.0-50.0 [facility] Comment on above: Order Comment: Order Added by Ham Expert. Performed By: #### 2 741836, 7342138, 8031857, 4560775, 50007292, 70877633 ####[address] [address] Lymphocytes/Leukocyte s Auto (Bld) [Pure # fraction] 2.1 E9/L Normal 1.0-4.0 [facility] Comment on above: Order Comment: Order Added by Ham Expert. Performed By: #### 2 890535, 2725942, 7426200, 3104349, 07615810, 82879144 ####[place] [address] [place] [address] Monocytes/100 WBC (Bld) 6.5 % Normal 4.0-14.0 [facility] Comment on above: Order Comment: Order Added by Discern Expert. Performed By: #### 2 465165, 1321758, 9051790, 0881639, 90447405, 95594857 ####[facility] [address] [place] [address] Monocytes/Leukocytes Auto (Bld) [Pure # fraction] 0.9 E9/L Normal 0.2-1.0 [facility] Comment on above: Order Comment: Order Added by Discern Expert. Performed By: #### 2 718638, 1814052, 8854449, 3186992, 96090605, 82859754 ####[facility] [address] [place] [address] Neutrophils/100 WBC (Bld) 78.0 % High 36.0-75.0 [facility] Comment on above: Order Comment: Order Added by Discern Expert. Performed By: #### 2 024351, 9126940, 6497428, 1889786, 54252949, 06962890 ####[facility] [address] [place] [address] Neutrophils/Leukocyte s Auto (Bld) [Pure # fraction] 11.4 E9/L High 2.0-7.5 [facility] Comment on above: Order Comment: Order Added by Discern Expert. Performed By: #### 2 665385, 2349698, 1890749, 1050377, 90219722, 82938841 ####[facility] [address] [place] [address] BMPon 07-26-2022 Creatinine [Mass/Vol] 0.8 mg/dL Normal 0.5-1.3 [facility] Comment on above: Performed By: #### 2 817935, 9667349, 8754012, 3024599, 57435435, 71096163 ####[facility] [address] [place] [address] Urea nitrogen [Mass/Vol] 11 mg/dL Normal 5-21 [facility] Comment on above: Performed By: #### 2 497776, 7618597, 8634941, 4115518, 13930519, 48185858 ####[facility] [address] [place] [address] Urea nitrogen/Creatinine [Mass ratio] 14 No Units Normal 10-20 [facility] Comment on above: Performed By: #### 2 673779, 2873385, 5044820, 1459171, 92235559, 15187629 ####[facility] [address] [place] [address] Anion gap [Moles/Vol] 13 mmol/L Normal 6-16 [facility] Comment on above: Performed By: #### 2 963222, 4421964, 2318296, 4989076, 06567908, 33687075 ####[facility] [address] [place] [address] Calcium [Mass/Vol] 9.3 mg/dL Normal 8.9-11.1 [facility] Comment on above: Performed By: #### 2 351097, 4771307, 8932884, 8530476, 92473088, 66375140 ####[facility] [address] [place] [address] Chloride [Moles/Vol] 101 mmol/L Normal 101-111 [facility] Comment on above: Performed By: #### 2 344629, 8542188, 9819195, 8391814, 24710130, 33000218 ####[facility] [address] [place] [address] CO2 [Moles/Vol] 27 mmol/L Normal 21-31 [facility] Comment on above: Performed By: #### 2 625749, 7271747, 9501256, 3387729, 93599405, 36222847 ####[facility] [address] [place] [address] Glucose [Mass/Vol] 88 mg/dL Normal 55-199 [facility] Comment on above: Result Comment: If t his glucose result represents a fasting glucose, interpretation should refer to the following reference range: 55-99 mg/dL Performed By: #### 2 035050, 8224338, 3423097, 9184460, 03735348, 37120517 ####[facility] [address] [place] [address] Potassium [Moles/Vol] 3.6 mmol/L Normal 3.5-5.3 [facility] Comment on above: Performed By: #### 2 635374, 7216008, 6624552, 8312546, 75397489, 22875092 ####[facility] [address] [place] [address] Sodium [Moles/Vol] 137 mmol/L Normal 135-145 [facility] Comment on above: Performed By: #### 2 086156, 6598527, 0941613, 3780955, 13106218, 08697596 ####[address] [address] CBC w/ Auto Diffon 3 Erythrocyte distribution width (RBC) [Ratio] 13.9 % Normal 10.9-14.2 [facility] Comment on above: Performed By: #### 2 545606, 8250550, 1663653, 3994773, 29943739, 97244838 ####[facility] [address] [place] [address] Hematocrit (Bld) [Volume fraction] 47.0 % High 34.0-46.0 [facility] Comment on above: Performed By: #### 2 886027, 3693853, 8962433, 2879421, 10056468, 53904467 ####[facility] [address] [place] [address] Hemoglobin (Bld) [Mass/Vol] 15.3 g/dL Normal 12.0-16.0 [facility] Comment on above: Performed By: #### 2 355003, 9735463, 0587409, 8556371, 34057058, 77058169 ####[facility] [address] [place] [address] MCH (RBC) [Entitic mass] 29.2 pg Normal 27.0-34.0 [facility] Comment on above: Performed By: #### 2 307905, 1598064, 7597980, 6309206, 15127598, 66628751 ####[address] [address] MCHC (RBC) [Mass/Vol] 32.7 g/dL Normal 31.4-36.0 [facility] Comment on above: Performed By: #### 2 891077, 9379602, 9151937, 8420693, 63774586, 81661947 ####[address] [address] MCV (RBC) [Entitic vol] 89.3 fL Normal 80.0-100.0 [facility] Comment on above: Performed By: #### 2 231274, 3263638, 0164626, 5987394, 49774975, 11402162 ####[address] [address] Platelet mean volume (Bld) [Entitic vol] 6.7 fL Normal 6.4-10.8 [facility] Comment on above: Performed By: #### 2 164808, 5518149, 3409319, 8008324, 36100575, 23739456 ####[address] [address] Platelets (Bld) [#/Vol] 324.0 E9/L Normal 150.0-500.0 [facility] Comment on above: Performed By: #### 2 856543, 6720528, 9895606, 4583655, 68402104, 21464987 ####[address] [address] RBC (Bld) [#/Vol] 5.3 E12/L Normal 4.3-5.9 [facility] Comment on above: Performed By: #### 2 378200, 2394737, 7424622, 0011814, 80720201, 16292271 ####[facility] [address] [place] [address] WBC corrected for nucl RBC Auto (Bld) [#/Vol] 14.6 E9/L High 4.0-11.0 [facility] Comment on above: Performed By: #### 2 066679, 8945038, 8284039, 0456054, 25419495, 82297161 ####[facility] [address] [place] [address] CHEMISTRYOrdered By: SYSTEM SYSTEM on 07-26-2022 Troponin [...] mg/dL Normal 1.3 - 2 .4 mg/dL [facility] Remisol Potassium [Moles/Vol] 3.6 mmol/L Normal 3.5 - 5.3 mmol/L [facility] Remisol Sodium [Moles/Vol] 137 mmol/L Normal 135 - 145 mmol/L [facility] Remisol Urea nitrogen [Mass/Vol] 11 mg/dL Normal 5 - 21 mg/dL [facility] Remisol Urea nitrogen/Creatinine [Mass ratio] 14 mg/mg Normal 10 - 20 [facility] Remisol CHEMISTRYOrdered By: Lab ROP User on 07-26-2022 Glucose [Mass/Vol] 106 mg/dL High 55 - 99 mg/dL [facility] POC Subsection Comment on above: Result Comment: Parker wills RN/ POC Device SN [id number] Invalid Interpretation Code [facility] POC Subsection POC User ID [id number] Invalid Interpretation Code [facility] POC Subsection POC Username SHANKAR ABARCA Invalid Interpretation Code [facility] POC Subsection CT Head or Brain w/o Contras ton 07-26-2022 CT Head or Brain w/o Contrast Normal [facility] Capillary Glucose POCon Glucose [Mass/Vol] 106 mg/dL High 55-99 [facility] Comment on above: Result Comment: Parker wills RN/ Performed By: #### 2 [id number] ####[facility] [address] [place] [address] Consent for Treatmenton Consent for Treatment [id number] 0CD:127 Normal [facility] ED Clinical Summaryon 2022 ED Clinical Summary Normal [facility] ED Note-Physicianon 07-27-19 ED Note-Physician Normal [facility] Comment on above: Result Comment: Elec tronically Signed By: Yaritza Cedeño PA-C\.br\Date and Time Signed: 07/26/22 14:17 EDT\.br\Electronically Co-Signed By: Lance Wu M.D.\.br\Date and Time Co-Signed: 07/26/22 15:36 EDT ED Patient Education Noteon 07-26-2022 ED Patient Education Note Normal [facility] ED Patient Summaryon 023 ED Patient Summary Normal [facility] HEMATOLOGYOrdered By: SYSTEM SYSTEM on 07-26-2022 Basophils/100 [...] 14.6 E9/L High 4.0 - 11.0 E9/L [facility] HemeAutoSS Magnesiumon 07-26-2022 Magnesium [Mass/Vol] 2.0 mg/dL Normal 1.3-2.4 [facility] Comment on above: Performed By: #### 2 530399, 5568658, 8397526, 3926358, 78546342, 64305185 ####[facility] [address] [place] [address] Monitor Recordon 07-26-2022 Monitor Record [id number]. 00CD:127 Normal [facility] Pre-Arrival Noteon 3 Pre-Arrival Note Normal [facility] Troponin 0 Hr.on 07-26-2022 Troponin I.cardiac [Mass/Vol] 6.60 pg/mL Low 10.10-27.10 [facility] Comment on above: Order Comment: pt st ill in imaging, will check back later [id number] 07/26/2022 12:32:06 EDT Result Comment: The 95% CI (Confidence Interval) PPV (Positive Predictive Value) for myocardial infarction in females is 38 pg/mL, in males 51 pg/mL. The results should be used in conjunction with clinical conditions of myocardial infarction.(Access High Sensitivity Troponin I Instructions For Use, Christy Larry, November 2017) Performed By: #### 2 413579, 7929261, 4282672, 5312920, 47953109, 86815968 ####[facility] [address] [place] [address] Troponin 3 Hr.on 07-26-2022 Troponin I.cardiac [Mass/Vol] 6.00 pg/mL Low 10.10-27.10 [facility] Comment on above: Result Comment: The 95% CI (Confidence Interval) PPV (Positive Predictive Value) for myocardial infarction in females is 38 pg/mL, in males 51 pg/mL. The results should be used in conjunction with clinical conditions of myocardial infarction.(Access High Sensitivity Troponin I Instructions For Use, [employer], November 2017) Performed By: #### 1 1300241 ####[address] [address] Troponin 6 Hr.on 07-26-2022 Troponin I.cardiac [Mass/Vol] 5.40 pg/mL Low 10.10-27.10 [facility] Comment on above: Result Comment: The 95% CI (Confidence Interval) PPV (Positive Predictive Value) for myocardial infarction in females is 38 pg/mL, in males 51 pg/mL. The results should be used in conjunction with clinical conditions of myocardial infarction.(Access High Sensitivity Troponin I Instructions For Use, [employer], November 2017) Performed By: #### 1 2357967 ####[address] [address] UA With Cult Reflexon 2022 Bacteria LM Ql (Urine sed) TRACE Normal Trace [facility] Comment on above: Performed By: #### 1 7058821 ####[address] [address] Bilirubin Ql (U) Negative Normal Negative [facility] Comment on above: Performed By: #### 1 5421269 ####[address] [address] Clarity (U) CLEAR Normal Clear [facility] Comment on above: Performed By: #### 1 9633170 ####[address] [address] Color (U) YELLOW Normal Yellow [facility] Comment on above: Performed By: #### 1 9803825 ####[facility] [address] [place] [address] Epithelial cells.squamous LM.HPF (Urine sed) [#/Area] 3-4 Normal 0-2 [facility] Comment on above: Performed By: #### 1 3836720 ####[address] [place] [address] Glucose Test strip (U) [Mass/Vol] Negative Normal Negative [facility] Comment on above: Performed By: #### 1 1786332 ####[address] [address] Hemoglobin Ql (U) Negative Normal Negative [facility] Comment on above: Performed By: #### 1 6794233 ####[address] [address] Ketones (U) [Mass/Vol] Negative Normal Negative [facility] Comment on above: Performed By: #### 1 0609793 ####[address] [address] Q[place]man.plasma/Lithiu m.RBC (Bld) [Mass ratio] 0-3 Normal 0-3 [facility] Comment on above: Performed By: #### 1 9493784 ####[address] [address] Nitrite Ql (U) Negative Normal Negative [facility] Comment on above: Performed By: #### 1 9520747 ####[address] [address] pH (U) 6.5 [pH] Invalid Interpretation Code 5.0-9.0 [facility] Comment on above: Performed By: #### 1 7441551 ####[address] [address] Protein (U) [Mass/Vol] Negative Normal Negative [facility] Comment on above: Performed By: #### 1 1215727 ####[address] [address] Specific gravity (U) [Rel density] <=1.005 Invalid Interpretation Code 1.005-1.030 [facility] Comment on above: Performed By: #### 1 5017340 ####[facility] [address] [place] [address] Type of Urine collection method Clean Catch Normal [facility] Comment on above: Performed By: #### 1 8112226 ####[facility] [address] [place] [address] Urobilinogen Qn (U) 0.2 {Malu'U}/dL Normal 0.0-1.0 [facility] Comment on above: Performed By: #### 1 9121658 ####[facility] [address] [place] [address] WBC Auto Ql (U) TRACE Abnormal Negative [facility] Comment on above: Performed By: #### 1 9619676 ####[place] [address] WBC LM.HPF (Urine sed) [#/Area] 0-5 Normal 0-5 [facility] Comment on above: Performed By: #### 1 1733314 ####[place] [address] URINALYSISOrdered By: Katerina Parker on 07-26-2022 Bacteria [...] PM) Normal Negative [facility] UA Auto SS Q[place].plasma/Lithiu m.RBC (Bld) [Mass ratio] 0-3 /HPF Normal [...] FT UA Auto SS Urobilinogen Qn (U) 0.3325442 {Malu'U}/dL Normal 0.0 - 1.0 EU/dL [facility] UA Auto SS WBC Auto Ql (U) Trace *ABN* (07/26/22 4:49 PM) Invalid Interpretation Code Negative [facility] UA Auto SS WBC LM.HPF (Urine sed) [#/Area] 0-5 /HPF Normal 0-5/HPF [facility] UA Auto SS XR Chest Single Viewon 07-26 XR Chest Single View Normal [facility] eGFRon 07-26-2022 GFR/1.73 sq M.predicted among blacks MDRD (S/P/Bld) [Vol rate/Area] mL/min/{1.73_m2} Normal >=59 [facility] Comment on above: Order Comment: Order added by Discern Expert. Result Comment: eGFR is race adjusted. AA=. Performed By: #### 2 415068, 1038384, 3606635, 3415615, 59525375, 25664156 ####[facility] [address] [place] [address] GFR/1.73 sq M.predicted among non-blacks MDRD (S/P/Bld) [Vol rate/Area] mL/min/{1.73_m2} Normal >=59 [facility] Comment on above: Order Comment: Order added by Discern Expert. Result Comment: Silver Solderer gina kidney disease could be indicated at eGFR's of less than 60 mL/min/1.73m2. Kidney failure is indicated at less than 15 mL/min/1.73m2. Performed By: #### 2 137220, 7879624, 7624227, 1403986, 86072487, 85490345 ####[facility] [address] [place] [address] SURGICAL PATH REPORTon 07-25 SURGICAL PATH REPORT [facility] Department of Pathology [address] [place] [phone] Name: LEELEE CEDILLO : 1950 [facility] [id number] Number: [facility] : n: Admit 71 years Attending ADELE FLEMING Age: Provider: Ordering ADELE FLEMING Provider: Consulti Surgical Pathology Report ng: ACCESSION: COLLECTED DATE/TIME: RECEIVED DATE/TIME: PATHOLOGIST: [id number] 07/24/2022 12:16 EDT 07/24/2022 12:16 EDT MICHELINE STERN MD Final Diagnosis Report for [facility] [place] [place] RIGHT ANKLE, PUNCH BIOPSY: - FRAGMENT [...] MP:alexa 07/24/2022 Tissue pathology report for: [facility], [address] [place] [address]; ____ ____ Print 07/25/2022 15:48 EDT Number: Date/Time: [facility] Department of Pathology [address] [place], [place] [id number] Name: LEELEE CEDILLO : 1950 [employer] [id number] Number: Gender Female [employer] OSWALDO : n: Admit 71 years Attending ADELE FLEMING Age: Provider: Ordering ADELE FLEMING Provider: Consulti Surgical Pathology Report ng: ACCESSION: COLLECTED DATE/TIME: RECEIVED DATE/TIME: PATHOLOGIST: [id number] 07/24/2022 12:16 EDT 07/24/2022 12:16 EDT LEENA RUFF, MICHELINE Gross Description PATHOLOGY SERVICES PROVIDED BY [employer] (CLIA #[id number]) in cooperation with [facility] at [address] [place] [address] ( CLIA #[id number]) Microscopic Diagnosis The final diagnosis is based on a microscopic exam of 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 Codes CPT CODE: 56717 ____ ____ Print 07/25/2022 15:48 EDT Number: Date/Time: [facility] Comment on above: Performed By: #### 9 [id number] #### [facility] Laboratory Services [address] [place] [address] Computer Repair Instructor: Jared Oh MD POINT OF CARE GLUCOSEon 04-0 Glucose [Mass/Vol] 114 mg/dL Critically high 74-[address] [facility] Comment on above: Performed By: #### P OCGLUC #### [facility] [address] [address] [address] Salvador Yung Glucose [Mass/Vol] 112 mg/dL Critically high 74-[address] [facility] Comment on above: Performed By: #### P OCGLUC #### [facility] [address] [address] [address] Salvador Yung EMS Documentationon 07-21-19 EMS Documentation Normal [facility] Covid-19 PCR (CVDTBH)on 06-20 SARS-CoV-2 (COVID-19) RNA [...] for this test is supported by the [place] of Health and Human Service's (HHS's) declaration [...] SARS-CoV-2. Performed By: #### C VDTBH #### [facility] [address] [place], [place] [address] Dr. Salvador Yung PROF CHEM 8 (BAS METB)on Anion gap [Moles/Vol] 12.0 mmol/L Normal [facility] Comment on above: Performed By: #### B MP #### [facility] [address] [address] [address] Salvador Yung Calcium [Mass/Vol] 9.4 mg/dL Normal 8.5-10.1 [facility] Comment on above: Performed By: #### B MP #### [facility] [address] [address] [address] Salvador Yung Chloride [Moles/Vol] 100 mmol/L Normal 98-107 [facility] Comment on above: Performed By: #### B MP #### [facility] [address] [address] [address] Salvador Yung CO2 [Moles/Vol] 29.8 mmol/L Normal 21.0-32.0 [facility] Comment on above: Performed By: #### B MP #### [facility] [address] [address] [address] Salvadro Yung Creatinine [Mass/Vol] 0.91 mg/dL Normal 0.55-1.02 [facility] [place] Comment on above: Performed By: #### B MP #### [facility] [address] [address] [address] Salvador Yung EGFR-AF SIERRA LEONEAN >60 Normal >=60 [facility] Comment on above: Performed By: #### B MP #### [facility] [address] [address] [address] Salvador Yung EGFR-NON AF SIERRA LEONEAN >60 Normal >=60 [facility] Comment on above: Performed By: #### B MP #### [facility] [address] [address] [address] Salvador Yung Glucose [Mass/Vol] 82 mg/dL Normal 74-106 [facility] Comment on above: Performed By: #### B MP #### [facility] [address] [address] [address] Salvador Yung Potassium [Moles/Vol] 3.8 mmol/L Normal 3.5-5.1 [facility] [place] Comment on above: Performed By: #### B MP #### [facility] [address] [address] [address] Salvador Yung Sodium [Moles/Vol] 138 mmol/L Normal 136-145 [facility] Comment on above: Performed By: #### B MP #### [facility] [address] [address] [address] Salvador Yung Urea nitrogen [Mass/Vol] 12.0 mg/dL Normal 7.0-18.0 [facility] [place] Comment on above: Performed By: #### B MP #### [facility] [address] [address] [address] Salvador Yung Urea nitrogen/Creatinine [Mass ratio] 13.2 mg/mg Normal [facility] [place] Comment on above: Performed By: #### B MP #### [facility] [address] [address] [address] Salvador Yung VC INJ SCL JESSICA ANNUAL CAMPAIGN MANAGER VEINSon 0 07-01-2022 VC INJ SCL JESSICA ANNUAL CAMPAIGN MANAGER VEINS Patient: LEELEE CEDILLO Exam Date: 07/01/2022 : 1950 Gender:F Ordering : DR ALFRED UMAÑA M.D. Admission #: [id number] Family : Order #: [id number] CLICK HERE TO VIEW EXAM RADIOLOGY REPORT [...] Lobato M.D. on 07/01/2022 at 15:22 Normal [facility] [place] VC CONSULT FOLLOWUPon 2022 VC CONSULT FOLLOWUP Patient: ITZEL CEDILLO Exam Date: 06/19/2022 : 1950 Gender:F Ordering : DR ALFRED UMAÑA M.D. Admission #: [id number] Family : Order #: [id number] CLICK HERE TO VIEW EXAM RADIOLOGY REPORT [...] Umaña MD on 06/19/2022 at 14:17 Normal [facility] [place] VC EXT VENOUS LT LIMITEDon 0 06-19-2022 VC EXT VENOUS LT LIMITED Patient: LEELEE CEDILLO Exam Date: 06/19/2022 : 1950 Gender:F Ordering : DR ALFRED UMAÑA M.D. Admission #: [id number] Family : Order #: [id number] CLICK HERE TO VIEW EXAM RADIOLOGY REPORT [...] Umaña MD on 06/19/2022 at 14:15 Normal [facility] [place] VC INJ FOAM SCLERO W US MLTI on 06-13-2022 VC INJ FOAM SCLERO W US MLTI Patient: LEELEE CEDILLO Exam Date: 06/13/2022 : 1950 Gender:F Ordering : DR ALFRED UMAÑA M.D. Admission #: [id number] Family : Order #: [id number] CLICK HERE TO VIEW EXAM RADIOLOGY REPORT [...] : DR ALFRED UMAÑA M.D. Admission #: [id number] Family : Order #: [id number] CLICK HERE TO VIEW EXAM RADIOLOGY REPORT [...] Lobato M.D. on 06/10/2022 at 12:36 Normal [facility] [place] VC EXT VENOUS RT LIMITEDon 0 06-10-2022 VC EXT VENOUS RT LIMITED Patient: LEELEE CEDILLO Exam Date: 06/10/2022 : 1950 Gender:F Ordering : DR ALFRED UMAÑA M.D. Admission #: [id number] Family : Order #: [id number] CLICK HERE TO VIEW EXAM RADIOLOGY REPORT [...] Lobato M.D. on 06/10/2022 at 12:33 Normal [facility] [place] VC INJ FOAM SCLERO W US MLTI on 06-03-2022 VC INJ FOAM SCLERO W US MLTI Patient: LEELEE CEDILLO Exam Date: 06/03/2022 : 1950 Gender:F Ordering : DR ALFRED UMAÑA M.D. Admission #: [id number] Family : Order #: [id number] CLICK HERE TO VIEW EXAM RADIOLOGY REPORT PROCEDURE: VEIN CENTER INJECTION FOAM SCLEROSING SOLUTION WITH ULTRASOUND MULTIPLE VEINS COMPARISON: None. Pre-operative Diagnosis: CEAP class C6 venous insufficiency with pain, tenderness, edema and incompetent right small saphenous vein and ice guard tester vein, incompetent varicose veins, venous insufficiency right leg secondary to venous incompetence Post-operative Diagnosis: CEAP class C6 venous insufficiency with pain, tenderness, edema and incompetent right small saphenous vein and ice guard tester vein, incompetent varicose veins, venous insufficiency right [...] : DR ALFRED UMAÑA M.D. Admission #: [id number] Family : Order #: [id number] CLICK HERE TO VIEW EXAM RADIOLOGY REPORT [...] Umaña MD on 05/28/2022 at 11:44 Normal [facility] [place] VC EXT VENOUS RT LIMITEDon 0 05-28-2022 VC EXT VENOUS RT LIMITED Patient: LEELEE CEDILLO Exam Date: 05/28/2022 : 1950 Gender:F Ordering : DR ALFRED UMAÑA M.D. Admission #: [id number] Family : Order #: [id number] CLICK HERE TO VIEW EXAM RADIOLOGY REPORT [...] extends to distal lower leg. Thrombus in ice guard tester distal medial lower leg 2.8 mm from [...] BASO # 0.1 103/ul Normal 0.0-0.1 [facility] Comment on above: Performed By: #### C BC #### [facility] [address] [address] [address] Salvador Yung Basophils/100 WBC (Bld) 0.6 % Normal 0.2-2.0 [facility] Comment on above: Performed By: #### C BC #### [facility] [address] [place] [address] Dr. Salvador Yung EO # 0.1 103/ul Normal 0.0-0.7 [facility] Comment on above: Performed By: #### C BC #### [facility] [address] [place] [address] Dr. Salvador Yung Eosinophils/100 WBC (Bld) 0.6 % Critically low 0.9-7.0 [facility] Comment on above: Performed By: #### C BC #### [facility] [facility] [address] [place] [address] Dr. Salvador Yung Erythrocyte distribution width (RBC) [Ratio] 12.4 % Normal 11.0-15.0 [facility] Comment on above: Performed By: #### C BC #### [facility] [address] [place] [address] Dr. Salvador Yung Hematocrit (Bld) [Volume fraction] 43.1 % Normal 36.0-48.0 [facility] Comment on above: Performed By: #### C BC #### [facility] [address] [place] [address] Dr. Salvador Yung Hemoglobin (Bld) [Mass/Vol] 13.8 g/dL Normal 12.0-16.0 [facility] Comment on above: Performed By: #### C BC #### [facility] [address] [place] [address] Dr. Salvador Yung IG # 0.06 10e3/ul Critically high 0.00-0.03 [facility] Comment on above: Performed By: #### C BC #### [facility] [address] [place] [address] Dr. Salvador Yung IG % 0.7 % Critically high 0.0-0.5 [facility] Comment on above: Performed By: #### C BC #### [facility] [address] [place] [address] Dr. Salvador Yung LYMPH # 1.7 103/ul Normal 1.2-3.8 [facility] [place] Comment on above: Performed By: #### C BC #### [facility] [address] [place] [address] Dr. Salvador Yung Lymphocytes/100 WBC (Bld) 20.2 % Critically low 20.5-60.0 [facility] [place] Comment on above: Performed By: #### C BC #### [facility] [address] [place] [address] Dr. Salvador Yung MANUAL DIFF REQ NO Normal [facility] Comment on above: Performed By: #### C BC #### [facility] [address] [place] [address] Dr. Salvador Yung MCH (RBC) [Entitic mass] 30.1 pg Normal 26.7-34.0 [facility] [place] Comment on above: Performed By: #### C BC #### [facility] [address] [place] [address] Dr. Salvador Yung MCHC (RBC) [Mass/Vol] 32.0 g/dL Normal 29.9-35.2 [facility] Comment on above: Performed By: #### C BC #### [facility] [address] [place] [address] Dr. Salvador Yung MCV (RBC) [Entitic vol] 93.9 fL Normal 81.0-99.0 [facility] [place] Comment on above: Performed By: #### C BC #### [facility] [address] [place] [address] Dr. Salvador Yung MONO # 0.5 103/ul Normal 0.3-0.8 [facility] [place] Comment on above: Performed By: #### C BC #### [facility] [address] [place] [address] Dr. Salvador Yung Monocytes/100 WBC (Bld) 6.1 % Normal 1.7-12.0 [facility] [place] Comment on above: Performed By: #### C BC #### [facility] [address] [place] [address] Dr. Salvador Yung NEUT # 6.1 103/ul Normal 1.4-6.5 [facility] Comment on above: Performed By: #### C BC #### [facility] [address] [place] [address] Dr. Salvador Yung Neutrophils/100 WBC (Bld) 71.8 % Normal 43.0-75.0 [facility] [place] Comment on above: Performed By: #### C BC #### [facility] [address] [place] [address] Dr. Salvador Yung Platelet mean volume (Bld) [Entitic vol] 8.2 fL Critically low 9.5-13.5 [facility] [place] Comment on above: Performed By: #### C BC #### [facility] [address] [place] [address] Dr. Salvador Yung PLT 246 103/ul Normal 150-450 [facility] Comment on above: Performed By: #### C BC #### [facility] [address] [place] [address] Dr. Salvador Yung RBC 4.59 106/ul Normal 4.20-5.40 [facility] Comment on above: Performed By: #### C BC #### [facility] [address] [place] [address] Dr. Salvador Ynug WBC 8.5 103/ul Normal 4.0-11.0 [facility] Comment on above: Performed By: #### C BC #### [facility] [address] [place] [address] Dr. Salvador Yung FREE T3on 05-21-2022 FREE T3 2.14 pg/mlL Critically low 2.18-3.98 [facility] Comment on above: Performed By: #### P OCGLUC #### [facility] [address] [address] [address] Salvador Yung GLYCOHEMOGLOBIN A1Con 2022 ADA RECOMMENDATION SEE BELOW Normal [facility] Comment on above: Result Comment: ADA RECOMMENDED LIMIT 4.0 - 6.0 ADA THERAPEUTIC TARGET < 7.0 ACTION SUGGESTED > 7.0 Performed By: #### P OCGLUC #### [facility] [address] [address] [address] Salvador Yung Glucose [Mass/Vol] 100 mg/dL Normal [facility] Comment on above: Performed By: #### P OCGLUC #### [facility] [address] [place] [address] Dr. Salvador Yung HbA1c (Bld) [Mass fraction] 5.1 % Normal 4.5-6.2 [facility] [place] Comment on above: Performed By: #### P OCGLUC #### [facility] [address] [place] [address] Dr. Salvador Yung LIPID PROFILEon 05-21-2022 CHOL-HDL RATIO NORM SEE BELOW Normal [facility] Comment on above: Result Comment: 3.3 - 4.4 LOW RISK 4.4 - 7.1 AVERAGE RISK 7.1 - 11.0 MODERATE RISK >11.0 HIGH RISK Performed By: #### P OCGLUC #### [facility] [address] [address] [address] Salvador Yung Cholesterol [Mass/Vol] 164 mg/dL Normal <=200 [facility] [place] Comment on above: Performed By: #### P OCGLUC #### [facility] [address] [address] [address] Salvador Yung Cholesterol in HDL [Mass/Vol] 61 mg/dL Critically high 40-60 [facility] [place] Comment on above: Performed By: #### P OCGLUC #### [facility] [address] [address] [address] Salvador Yung Cholesterol in LDL [Mass/Vol] 90.2 mg/dL Normal [facility] [place] Comment on above: Performed By: #### P OCGLUC #### [facility] [address] [address] [address] Salvador Yung Cholesterol.total/Cho lesterol in HDL [Mass ratio] 2.7 {ratio} Normal [facility] [place] Comment on above: Performed By: #### P OCGLUC #### [facility] [address] [address] [address] Salvador Yung HDL NORMAL > or = 60 mg/dl - LO W CARDIOVASCULAR RISK <40 mg/dl - HIGH CARDIOVASCULAR RISK Normal [facility] [place] Comment on above: Performed By: #### P OCGLUC #### [facility] [address] [address] [address] Salvador Yung LDL CALC NORMAL SEE BELOW Normal [facility] Comment on above: Result Comment: <100 mg/dl OPTIMAL 100 - 129 mg/dl NEAR OR ABOVE OPTIMAL 130 - 159 mg/dl BORDERLINE HIGH 160 - 189 mg/dl HIGH >190 mg/dl VERY HIGH Performed By: #### P OCGLUC #### [facility] [address] [address] [address] Salvador Yung Triglyceride [Mass/Vol] 64 mg/dL Normal <=150 [facility] [place] Comment on above: Performed By: #### P OCGLUC #### [facility] [address] [address] [address] Salvador Yung VLDL CALC 12.8 mg/dL Normal [facility] [place] Comment on above: Performed By: #### P OCGLUC #### [facility] [address] [address] [address] Salvador Yung PROF 14(COMP METB)on 023 Albumin [Mass/Vol] 3.2 g/dL Critically low 3.4-5.0 [facility] Comment on above: Performed By: #### P OCGLUC #### [facility] [address] [place] [address] Dr. Salvador Yung Albumin/Globulin [Mass ratio] 0.7 {ratio} Normal [facility] [place] Comment on above: Performed By: #### P OCGLUC #### [facility] [address] [address] [address] Salvador Yung ALP [Catalytic activity/Vol] 68 U/L Normal 46-116 [facility] [place] Comment on above: Performed By: #### P OCGLUC #### [facility] [address] [place] [address] Dr. Salvador Yung ALT [Catalytic activity/Vol] 25 U/L Normal 14-59 [facility] [place] Comment on above: Performed By: #### P OCGLUC #### [facility] [address] [address] [address] Salvador Yung Anion gap [Moles/Vol] 11.8 mmol/L Normal [facility] Comment on above: Performed By: #### P OCGLUC #### [facility] [address] [place] [address] Dr. Salvador Yung AST [Catalytic activity/Vol] 20 U/L Normal 15-37 [facility] [place] Comment on above: Performed By: #### P OCGLUC #### [facility] [address] [address] [address] Salvador Yung Bilirubin [Mass/Vol] 0.5 mg/dL Normal 0.2-1.0 [facility] [place] Comment on above: Performed By: #### P OCGLUC #### [facility] [address] [place] [address] Dr. Salvador Yung Calcium [Mass/Vol] 8.9 mg/dL Normal 8.5-10.1 [facility] Comment on above: Performed By: #### P OCGLUC #### [facility] [address] [place] [address] Dr. Salvador Yung Chloride [Moles/Vol] 105 mmol/L Normal 98-107 [facility] Comment on above: Performed By: #### P OCGLUC #### [facility] [address] [place] [address] Dr. Salvador Yung CO2 [Moles/Vol] 29.9 mmol/L Normal 21.0-32.0 [facility] Comment on above: Performed By: #### P OCGLUC #### [facility] [address] [place] [address] Dr. Salvador Yung Creatinine [Mass/Vol] 0.74 mg/dL Normal 0.55-1.02 [facility] Comment on above: Performed By: #### P OCGLUC #### [facility] [address] [address] [address] Salvador Yung EGFR-AF [employer] >60 Normal >=60 [facility] Comment on above: Performed By: #### P OCGLUC #### [facility] [address] [address] [address] Salvador Yung EGFR-NON AF [employer] [employer] >60 Normal >=60 [facility] [place] Comment on above: Performed By: #### P OCGLUC #### [facility] [address] [address] [address] Salvador Yung Globulin (S) [Mass/Vol] 4.3 g/dL Normal [facility] [place] Comment on above: Performed By: #### P OCGLUC #### [facility] [address] [place] [address] Dr. Salvador Yung Glucose [Mass/Vol] 88 mg/dL Normal 74-106 [facility] Comment on above: Performed By: #### P OCGLUC #### [facility] [address] [address] [address] Salvador Yung Potassium [Moles/Vol] 3.7 mmol/L Normal 3.5-5.1 [facility] [place] Comment on above: Performed By: #### P OCGLUC #### [facility] [address] [address] [address] Salvador Yung Protein [Mass/Vol] 7.5 g/dL Normal 6.4-8.2 [facility] Comment on above: Performed By: #### P OCGLUC #### [facility] [address] [address] [address] Salvador Yung Sodium [Moles/Vol] 143 mmol/L Normal 136-145 [facility] Comment on above: Performed By: #### P OCGLUC #### [facility] [address] [address] [address] Salvador Yung Urea nitrogen [Mass/Vol] 11.0 mg/dL Normal 7.0-18.0 [facility] [place] Comment on above: Performed By: #### P OCGLUC #### [facility] [address] [address] [address] Salvador Yung Urea nitrogen/Creatinine [Mass ratio] 14.9 mg/mg Normal [facility] [place] Comment on above: Performed By: #### P OCGLUC #### [facility] [address] [place] [address] Dr. Salvador Yung T4on 05-21-2022 T4 [Mass/Vol] 11.60 ug/dL Normal 4.80-13.90 [facility] Comment on above: Performed By: #### P OCGLUC #### [facility] [address] [place] [address] Dr. Salvador Yung TSHon 05-21-2022 TSH 0.165 uIU/mL Critically low 0.358-3.740 [facility] Comment on above: Performed By: #### P OCGLUC #### [facility] [address] [place] [address] Dr. Salvador Yung VC ENDOVENOUS ABL 1ST V RTon 05-21-2022 VC ENDOVENOUS ABL 1ST V RT Patient: LEELEE CEDILLO Exam Date: 05/21/2022 : 1950 Gender:F Ordering : DR ALFRED UMAÑA M.D. Admission #: [id number] Family : Order #: [id number] CLICK HERE TO VIEW EXAM RADIOLOGY REPORT [...] MD on 05/21/2022 at 13:51 Normal [facility] VITAMIN D 25 OHon 05-21-2022 VIT D 25-OH 25.1 ng/mL Normal [facility] Comment on above: Performed By: #### V ITAD #### [facility] [address] [place], [place] [address] Dr. Salvador Yung VIT D RANGES SEE BELOW Normal [facility] Comment on above: Result Comment: <20 ng/mL Vit D deficient 20 - <30 ng/mL Vit D insufficient 30 - 100 ng/mL Vit D sufficient >100 ng/mL Potential Toxicity Performed By: #### V ITAD #### [facility] [address] [address] [address] Salvador Yung XR HIP LT 2 [...] : DR. ADELE FLEMING D.P.MKimberlee Admission #: [id number] Family : Order #: [id number] CLICK HERE [...] small saphenous vein, right lower extremity incompetent ice guard tester veins, and bilateral lower extremity incompetent branch [...] ablation of right small saphenous vein and ice guard tester vein. 4. Microfoam chemical ablation of dilated, [...] Lobato M.D. on 05/01/2022 at 15:27 Normal [facility] VC VENOUS REFLUX SAMI LMTon 0 05-01-2022 VC VENOUS REFLUX SAMI LMT Patient: LEELEE CEDILLO Exam Date: 05/01/2022 : 1950 Gender:F Ordering : DR. ADELE FLEMING D.P.M. Admission #: [id number] Family : DR ALFRED UMAÑA M.D. Order #: [id number] CLICK HERE TO VIEW EXAM RADIOLOGY REPORT [...] chronic thrombus visualized Compressibility: Normal Flow: Normal [employer]: Dist/med calf 2.6mm with 0s reflux. Mid/med calf 3.5mm with 0s reflux. Tech Note: GSV has been previously stripped. Patent varicose vein mid/med calf 2.3mm with 0.5s reflux. Patent varicose vein prox/med calf 3.4mm with 1.2s reflux. Patent varicose vein dist/med thigh 5.4mm with 0.8s reflux. CONCLUSION: 1. Dilated, incompetent right small saphenous vein. 2. Dilated, incompetent ice guard tester veins and bilateral lower extremity branch saphenous varicosities. 3. Consultation for endovenous laser ablation is recommended. Dictated by: Julio Lobato M.D. on 05/01/2022 at 14:06 Approved by: Julio Lobato M.D. on 05/01/2022 at 14:28 Normal [facility] [place] Coding Summary.on 03-11-2022 Coding Summary. Normal [facility] ED Traumaon 03-09-2022 ED Trauma [id number]#1. 00CD:127 Normal [facility] Consent for Procedure/Surger yon 03-08-2022 Consent for Procedure/Surgery [id number]#1. 00CD:127 Normal [facility] Consent for Treatmenton 02-18 Consent for Treatment [id number]#1.0 0CD:127 Normal [facility] Discharge Instructionson Discharge Instructions [id number]#1. 00CD:127 Normal [facility] ED Clinical Summaryon 2021 ED Clinical Summary Normal [facility] ED Note-Physicianon 03-08-20 ED Note-Physician Normal [facility] Comment on above: Result Comment: Elec tronically Signed By: Wm Nagy DO.br\Date and Time Signed: 03/08/22 21:11 EST ED Patient Education Noteon 03-08-2022 ED Patient Education Note Normal [facility] ED Patient Summaryon 022 ED Patient Summary Normal [facility] EMS Documentationon 03-08-20 EMS Documentation Normal [facility] EMS Documentation Normal [facility] Monitor Recordon 03-08-2022 Monitor Record [id number]#1. 00CD:127 Normal [facility] Monitor Record [id number]#1. 00CD:127 Normal [facility] Pre-Arrival Noteon Pre-Arrival Note Normal [facility] Respiratory Therapy Noteson 03-08-2022 Respiratory Therapy Notes conscious sedation on Eaton, Leelee. Used co2 monitor and one liter of 02. patient maintained 38 co2 and 99 O2. Last approx 40 min. Normal [facility] XR Hip 2-3 Views Left + Pelv yasir 03-08-2022 XR Hip 2-3 Views Left + Pelvis Normal [facility] XR Hip 2-3 Views Left + Pelvis Normal [facility] BLEEDING TIMEon 03-06-2022 BLEEDING TIME 10.5 min Critically high 1.0-8.0 [facility] Comment on above: Performed By: #### B LTM #### [facility] [address] [place] [address] Dr. Salvador Yung CBC AUTO DIFFon 03-06-2022 BASO # 0.1 103/ul Normal 0.0-0.1 [facility] Comment on above: Performed By: #### C BC #### [facility] [address] [address] [address] Salvador Yung Basophils/100 WBC (Bld) 0.7 % Normal 0.2-2.0 [facility] [place] Comment on above: Performed By: #### C BC #### [facility] [address] [address] [address] Salvador Yung EO # 0.1 103/ul Normal 0.0-0.7 [facility] [place] Comment on above: Performed By: #### C BC #### [facility] [address] [address] [address] Salvador Yung Eosinophils/100 WBC (Bld) 0.7 % Critically low 0.9-7.0 [facility] [place] Comment on above: Performed By: #### C BC #### [facility] [address] [place] [address] Dr. Salvador Yung Erythrocyte distribution width (RBC) [Ratio] 12.9 % Normal 11.0-15.0 [facility] [place] Comment on above: Performed By: #### C BC #### [facility] [address] [place] [address] Dr. Salvador Yung Hematocrit (Bld) [Volume fraction] 41.3 % Normal 36.0-48.0 [facility] [place] Comment on above: Performed By: #### C BC #### [facility] [address] [place] [address] Dr. Salvador Yung Hemoglobin (Bld) [Mass/Vol] 13.7 g/dL Normal 12.0-16.0 [facility] [place] Comment on above: Performed By: #### C BC #### [facility] [address] [place] [address] Dr. Salvador Yung IG # 0.05 10e3/ul Critically high 0.00-0.03 [facility] Comment on above: Performed By: #### C BC #### [facility] [address] [place] [address] Dr. Salvador Yung IG % 0.7 % Critically high 0.0-0.5 [facility] Comment on above: Performed By: #### C BC #### [facility] [address] [place] [address] Dr. Salvador Yung LYMPH # 1.4 103/ul Normal 1.2-3.8 [facility] [place] Comment on above: Performed By: #### C BC #### [facility] [address] [place] [address] Dr. Salvador Yung Lymphocytes/100 WBC (Bld) 18.9 % Critically low 20.5-60.0 [facility] [place] Comment on above: Performed By: #### C BC #### [facility] [address] [place] [address] Dr. Salvador Yung MANUAL DIFF REQ NO Normal [facility] Comment on above: Performed By: #### C BC #### [facility] [address] [place] [address] Dr. Salvador Yung MCH (RBC) [Entitic mass] 30.3 pg Normal 26.7-34.0 [facility] Comment on above: Performed By: #### C BC #### [facility] [address] [place] [address] Dr. Salvador Yung MCHC (RBC) [Mass/Vol] 33.2 g/dL Normal 29.9-35.2 [facility] [place] Comment on above: Performed By: #### C BC #### [facility] [address] [place] [address] Dr. Salvador Yung MCV (RBC) [Entitic vol] 91.4 fL Normal 81.0-99.0 [facility] [place] Comment on above: Performed By: #### C BC #### [facility] [address] [place] [address] Dr. Salvador Yung MONO # 0.7 103/ul Normal 0.3-0.8 [facility] [place] Comment on above: Performed By: #### C BC #### [facility] [address] [place] [address] Dr. Salvador Yung Monocytes/100 WBC (Bld) 9.9 % Normal 1.7-12.0 [facility] Comment on above: Performed By: #### C BC #### [facility] [address] [address] [address] Salvador Yung NEUT # 5.2 103/ul Normal 1.4-6.5 [facility] [place] Comment on above: Performed By: #### C BC #### [facility] [address] [address] [address] Salvador Yung Neutrophils/100 WBC (Bld) 69.1 % Normal 43.0-75.0 [facility] [place] Comment on above: Performed By: #### C BC #### [facility] [address] [place] [address] Dr. Salvador Yung Platelet mean volume (Bld) [Entitic vol] 7.9 fL Critically low 9.5-13.5 [facility] Comment on above: Performed By: #### C BC #### [facility] [address] [place] [address] Dr. Salvador Yung PLT 223 103/ul Normal 150-450 [facility] Comment on above: Performed By: #### C BC #### [facility] [address] [place] [address] Dr. Salvador Yung RBC 4.52 106/ul Normal 4.20-5.40 [facility] Comment on above: Performed By: #### C BC #### [facility] [address] [place] [address] Dr. Salvador Yung WBC 7.5 103/ul Normal 4.0-11.0 [facility] Comment on above: Performed By: #### C BC #### [facility] [address] [place] [address] Dr. Salvador Yung IRONon 03-06-2022 Iron [Mass/Vol] 83.0 ug/dL Normal 50.0-170.0 [facility] Comment on above: Performed By: #### I ESTEFANY #### [facility] [address] [place] [address] Dr. Salvador Yung PROTIMEon 03-06-2022 INR Coag (PPP) [Relative time] 0.95 {INR} Normal [facility] [place] Comment on above: Performed By: #### P TT, PT #### [facility] [address] [address] [address] Salvador Yung INR GUIDELINES SEE BELOW Normal [facility] Comment on above: Result Comment: YOJANA RED INR: 2.0 - 3.0 CONDITIONS NOT LISTED BELOW 2.5 - 3.5 FOR PROSTHETIC HEART VALVE REPLACEMENT 2.5 - 3.5 RECURRENT THROMBOSIS Performed By: #### P TT, PT #### [facility] [address] [address] [address] Salvador Yung PT Coag (PPP) [Time] 10.3 s Normal 9.0-11.6 [facility] Comment on above: Performed By: #### P TT, PT #### [facility] [address] [address] [address] Salvador Yung PTTon 03-06-2022 aPTT Coag (Bld) [Time] 22.1 s Critically low 22.3-36.2 [facility] Comment on above: Performed By: #### P TT, PT #### [facility] [address] [address] [address] Salvador Yung SCREENING MAMMOGRAM W/DANIEL, BILATERAL*on [...] IS VERY IMPORTANT TO YOUR HEALTH. CURRENT [employer] GUIDELINES RECOMMENDS ANNUAL MAMMOGRAPHY BEGINNING AT AGE 41. THIS FACILITY USUALLY USES A REMINDER SYSTEM TO ENSURE ALL POSITIONS RECEIVED REMINDER NOTIFICATIONS AT THE TIME BASED ON THE RECOMMENDATIONS OF THIS EXAM. Report reported and signed by Julio Martines on 02/28/2022 1602 Normal [facility] Specialist Covid-19 PCR (CVDTBH)on 12-19 SARS-CoV-2 [...] for this test is supported by the [place] of Health and Human Service's (HHS's) declaration [...] P OCGLUC #### [facility] [address] [place] [address] Dr. Salvador Yung MRI [facility] CONon 12-10- 22 MRI [facility] CON HISTORY: Chronic low back pain with left leg pain. Prior low back surgery. Lumbar disc disease. MRI [facility] CON: 12/09/2021 10:11 AM EDT [...] COVID-19 Positive/Negativeon 05-04-2020 COVID-19 Positive/Negative Negative Negative [facility] Comment on above: Testing for SARS-CoV -2 by RT-PCRThis test was developed and its performance characteristics determined by [employer] and validated at the [facility]. This test has not been FDA cleared [...] Otheron 05-04-2020 Coronavirus 2019 PCR Interp N/A [facility] Automated basophil %on 04-24 Basophils/100 WBC (Bld) 0.6 % [facility] Automated basophil counton 0 04-24-2020 Basophils (Bld) [#/Vol] 0.0 10*3/uL 0.0-0.2 [facility] Automated blood lymphocyte c ount (number/volume)on 04-24-2020 Lymphocytes (Bld) [#/Vol] 1.0 10*3/uL 1.00-4.8 [facility] Automated blood lymphocyte c ount as percentage of total leukocyteson 04-24-2020 Lymphocytes/100 WBC (Bld) 17.0 % [facility] Automated blood monocyte cou nton 04-24-2020 Monocytes (Bld) [#/Vol] 0.3 10*3/uL 0.0-0.8 [facility] Automated blood platelet cou nt (count/volume)on 04-24-2020 Platelets (Bld) [#/Vol] 224 10*3/uL 150-450 [facility] Automated blood platelet vikki n volume measurementon 04-24-2020 Platelet mean volume (Bld) [Entitic vol] 7.2 fL 6.3-10.7 [facility] Automated eosinophil %on Eosinophils/100 WBC (Bld) 3.5 % [facility] Automated eosinophil counton 04-24-2020 Eosinophils (Bld) [#/Vol] 0.2 10*3/uL 0.0-0.45 [facility] Automated erythrocyte distri bution width ratioon 04-24-2020 Erythrocyte distribution width (RBC) [Ratio] 13.0 % 11.9-15.3 [facility] Automated erythrocyte mean c orpuscular hemoglobin (mass per erythrocyte)on 04-24-2020 MCH (RBC) [Entitic mass] 27.7 pg 24.7-34.3 [facility] Automated erythrocyte mean c orpuscular hemoglobin concentration measurement (mass/volon 04-24-2020 MCHC (RBC) [Mass/Vol] 33.2 g/dL 32.0-35.0 [facility] Automated erythrocyte mean c orpuscular volumeon 04-24-2020 MCV (RBC) [Entitic vol] 83.3 fL 80-100 [facility] Automated erythrocytes count in urine sediment (number/area)on 04-24-2020 RBC Auto (Urine sed) [#/Area] None seen [HPF] [facility] Automated leukocytes count i n urine sediment (number/area)on 04-24-2020 WBC Auto (Urine sed) [#/Area] 0-1 [HPF] [facility] Automated monocyte %on 04-24 Monocytes/100 WBC (Bld) 6.1 % [facility] Automated neutrophil %on Neutrophils/100 WBC (Bld) 72.8 % [facility] Automated urine color determ inationon 04-24-2020 Color (U) Yellow Yellow [facility] Blood erythrocytes automated count (number/volume)on 04-24-2020 RBC (Bld) [#/Vol] 4.50 10*6/uL 3.60-5.00 [facility] Blood hemoglobin measurement (mass/volume)on 04-24-2020 Hemoglobin (Bld) [Mass/Vol] 12.5 g/dL 11.8-15.4 [facility] Blood leukocytes automated c ount (number/volume)on 04-24-2020 WBC (Bld) [#/Vol] 5.7 10*3/uL 3.8-11.6 [facility] Blood neutrophil count by au tomated method (number/volume)on 04-24-2020 Neutrophils (Bld) [#/Vol] 4.2 10*3/uL 1.8-7.7 [facility] Estimated glomerular filtrat ion rate (GFR) non- Americanon 04-24-2020 GFR/1.73 sq M predicted among non-blacks MDRD (S/P/Bld) [Vol rate/Area] mL/min/{1.73_m2} [facility] Hematocrit [Volume Fraction] of Blood by Automated counton 04-24-2020 Hematocrit (Bld) [Volume fraction] 37.5 % 34.0-46.4 [facility] Otheron 04-24-2020 GFR/1.73 sq M.predicted MDRD (S/P/Bld) [Vol rate/Area] mL/min/{1.73_m2} [facility] Comment on above: GFR estimated refere nce range: According to KDOQI guidelines, <60 ml/min/1.73m2 is sufficient to diagnose a patient with chronic kidney disease. Nucleated RBC/100 WBC (Bld) [Ratio] 0.1 % 0-0.5 [facility] Creatinine Clearance (Chem N/A [facility] Serum or plasma calcium kelly urement (mass/volume)on 04-24-2020 Calcium [Mass/Vol] 9.3 mg/dL 8.2-10.2 [facility] Serum or plasma chloride vikki surement (moles/volume)on 04-24-2020 Chloride [Moles/Vol] 101 mmol/L 95-114 [facility] Serum or plasma creatinine m easurement with calculation of estimated glomerular filtron 04-24-2020 Creatinine [Mass/Vol] 0.88 mg/dL 0.44-1.03 [facility] Serum or plasma glucose kelly urement (mass/volume)on 04-24-2020 Glucose [Mass/Vol] 116 mg/dL 70-100 [facility] Comment on above: ADA recommended refe rence rangeRandom Glucose Reference Range is dependent on time and content of last meal. Glucose of more than 200 mg/dL in a nonstressed, ambulatory subject supports the diagnosis of Diabetes Mellitus. Serum or plasma potassium me asurement (moles/volume)on 04-24-2020 Potassium [Moles/Vol] 3.8 mmol/L 3.5-5.1 [facility] Serum or plasma sodium measu rement (moles/volume)on 04-24-2020 Sodium [Moles/Vol] 136 mmol/L 136-146 [facility] Serum or plasma total carbon dioxide measurement (moles/volume)on 04-24-2020 CO2 [Moles/Vol] 23.1 mmol/L 22.0-30.0 [facility] Serum or plasma urea nitroge n measurement (mass/volume)on 04-24-2020 Urea nitrogen [Mass/Vol] 10 mg/dL 9-23 [facility] Specific gravity of Urine by Automated test stripon 04-24-2020 Specific gravity (U) [Rel density] 1.007 1.001-1.030 [facility] Squamous epithelial cells de tection in urine sediment by light microscopyon 04-24-2020 Epithelial cells.squamous LM Ql (Urine sed) None seen [HPF] [facility] Urinalysison 04-24-2020 Hyaline casts LM Ql (Urine sed) None seen [LPF] [facility] Urine bacteria detection by automated methodon 04-24-2020 Bacteria Auto Ql (U) None seen None Seen [facility] Urine clarity by refractomet ry automatedon 04-24-2020 Clarity Refractometry automated (U) Clear Clear [facility] Urine glucose measurement by automated test strip (mass/volume)on 04-24-2020 Glucose Auto test strip (U) [Mass/Vol] Normal mg/dL Normal [facility] Urine hemoglobin detection b y automated test stripon 04-24-2020 Hemoglobin Auto test strip Ql (U) Negative Negative [facility] Urine ketones measurement by automated test strip (mass/volume)on 04-24-2020 Ketones (U) [Mass/Vol] Negative Negative [facility] Urine leukocyte esterase det ection by automated test stripon 04-24-2020 Leukocyte esterase Auto test strip Ql (U) 1+ Negative [facility] Urine nitrite detection by t est stripon 04-24-2020 Nitrite Ql (U) Negative Negative [facility] Urine pH measurement by auto mated test stripon 04-24-2020 pH (U) 5.5 [pH] 5.0-9.0 [facility] Urine protein measurement by automated test strip (mass/volume)on 04-24-2020 Protein (U) [Mass/Vol] Negative Negative [facility] Urine total bilirubin detect ion by test stripon 04-24-2020 Bilirubin Ql (U) Negative Negative [facility] Urine urobilinogen measureme nt by automated test strip (mass/volume)on 04-24-2020 Urobilinogen (U) [Mass/Vol] Normal mg/dL Normal [facility] CT L-SPINE WO CONTRASTon CT L-SPINE WO CONTRAST Patient Name: LEELEE CEDILLO STUDY: CT L-SPINE WO CONTRAST;; 10/13/2018 12:05 pm INDICATION: Low back pain LUMBAGO. COMPARISON: None. ACCESSION NUMBER(S): [id number] ORDERING CLINICIAN: HAMLET GILMAN TECHNIQUE: Axial sections [...] combination with facet joint arthropathy noted causing [id number] left neural foramina narrowing. Transpedicular screws of [...] left lateral recess, left neural foramina and [id number] right neural foramina narrowing. IMPRESSION: Postoperative and [...] Electronically signed by: PATRICIA MURRAY MD Normal [facility] SPINE, ENTIRE THORACIC/LUMBA R, INCLUDE SKULL, [...] pm INDICATION: LUMBAGO. COMPARISON: None ACCESSION NUMBER(S): [id number]; [id number] ORDERING CLINICIAN: HAMLET GILMAN FINDINGS: Long radiograph [...] Electronically signed by: ADELE BA MD Normal [facility] SPINE, LUMBOSACRAL; CMPLT(BE NDING)on 10-13-2018 SPINE, LUMBOSACRAL; CMPLT(BENDING) Patient Name: LEELEE CEDILLO STUDY: SPINE, ENTIRE THORACIC/LUMBAR, INCLUDE SKULL, CERVICAL ANSD SACRAL SPINE WHEN PERFORMED 2 OR 3 VIEW; SPINE, LUMBOSACRAL CMPLT(BENDING); 10/13/2018 12:05 pm INDICATION: LUMBAGO. COMPARISON: None ACCESSION NUMBER(S): [id number]; [id number] ORDERING CLINICIAN: HAMLET GILMAN FINDINGS: Long radiograph [...] acuity. Electronically signed by: ADELE BA MD [facility] Vital Signs Date Time Vital Sign Value Performing Clinician Facility 08-07-2023 11:44-0400 Diastolic blood pressure 86 mm[Hg] MD Sara Vick Work Phone: [facility] 08-07-2023 11:44-0400 Heart rate 67 /min MD Sara Vick Work Phone: [facility] 08-07-2023 11:44-0400 SaO2% (BldA) [Mass fraction] 99 % MD Sara Vick Work Phone: [facility] 08-07-2023 11:44-0400 Systolic blood pressure 132 mm[Hg] MD Sara Vick Work Phone: [facility] 07-01-2023 10:26-0400 Body height 172.72 cm MD Sara Vick Work Phone: [facility] 07-01-2023 10:26-0400 Body mass index (BMI) [Ratio] 29.5 kg/m2 MD Sara Vick Work Phone: [facility] 07-01-2023 10:26040 Body temperature 97.2 [degF] MD Sara Vick Work Phone: [facility] 07-01-2023 10:26-040 Body weight 87.99 kg MD Sara Vick Work Phone: [facility] 07-01-2023 10:26-0400 Diastolic blood pressure 78 mm[Hg] MD Sara Vick Work Phone: [facility] 07-01-2023 10:26-0400 Heart rate 78 /min MD Sara Vick Work Phone: [facility] 07-01-2023 10:26-0400 SaO2% (BldA) [Mass fraction] 98 % MD Sara Vick Work Phone: [facility] 07-01-2023 10:26-0400 Systolic blood pressure 120 mm[Hg] MD Sara Vick Work Phone: [facility] 06-30-2023 14:39-0400 Diastolic blood pressure 70 mm[Hg] MD Sara Vick Work Phone: [facility] 06-30-2023 14:39-0400 Heart rate 75 /min MD Sara Vick Work Phone: [facility] 06-30-2023 14:39-0400 SaO2% (BldA) [Mass fraction] 99 % MD Sara Vick Work Phone: [facility] 06-30-2023 14:39-0400 Systolic blood pressure 110 mm[Hg] MD Sara Vick Work Phone: [facility] 06-24-2023 13:13-0500 Body height 172.7 cm Ghanshyam Lombardi MD Work Phone: [facility] 06-24-2023 13:13-0500 Body weight 87.4 kg Ghanshyam Lombardi MD Work Phone: [facility] 06-24-2023 13:13-0500 Diastolic blood pressure 56 mm[Hg] Ghanshyam Lombardi MD Work Phone: [facility] 06-24-2023 13:13-0500 Heart rate 93 /min Ghanshyam Lombardi MD Work Phone: [facility] 06-24-2023 13:13-0500 Respiratory rate 18 /min Ghanshyam Lombardi MD Work Phone: [facility] 06-24-2023 13:13-0500 SaO2% (BldA) [Mass fraction] 97 % Ghanshyam Lombardi MD Work Phone: [facility] 06-24-2023 13:13-0500 Systolic blood pressure 115 mm[Hg] Ghanshyam Lombardi MD Work Phone: [facility] 05-15-2023 09:00-0500 Body weight 90.18 kg Larry Brown Other [facility] [employer] Other 05-15-2023 09:00-0500 Body weight 90.17 kg MD Sara Vick Work Phone: [facility] 05-15-2023 09:00-0500 Diastolic blood pressure 86 mm[Hg] Larry Brown Other [facility] 05-15-2023 09:00-0500 SaO2% (BldA) [Mass fraction] 99 % Larryrandy Brown Other [facility] [employer] Other 05-15-2023 09:00-0500 Systolic blood pressure 148 mm[Hg] Larry Brown Other [facility] 05-13-2023 11:15-0500 Body height 175.26 cm Kiran Kessler Other [facility] 05-13-2023 11:15-0500 Body mass index (BMI) [Ratio] 29.24 kg/m2 Kiran Kessler Other [facility] [employer] Other 05-13-2023 11:15-0500 Body temperature 96.9 [degF] Kiran Kessler Other [facility] [employer] Other 05-13-2023 11:15-0500 Body weight 89.81 kg Kiran Kessler Other [facility] 05-13-2023 11:15-0500 Diastolic blood pressure 80 mm[Hg] Kiran Kessler Other [facility] 05-13-2023 11:15-0500 SaO2% (BldA) [Mass fraction] 99 % Kiran Kessler Other [facility] [employer] Other 05-13-2023 11:15-0500 Systolic blood pressure 140 mm[Hg] Kiran Kessler Other [facility] 04-03-2023 10:15-0500 Body height 175.26 cm Larry Stephanie Other [facility] [employer] Other 04-03-2023 10:15-0500 Diastolic blood pressure 74 mm[Hg] Larryrandy Brown Other [facility] [employer] Other 04-03-2023 10:15-0500 SaO2% (BldA) [Mass fraction] 99 % Larry Stephanie Other [facility] [employer] Other 04-03-2023 10:15-0500 Systolic blood pressure 118 mm[Hg] Larryrandy Brown Other [facility] [employer] Other 03-25-2023 11:05-0500 Diastolic blood pressure 75 mm[Hg] MD Sara Vick Work Phone: [facility] 03-25-2023 11:05-0500 Heart rate 72 /min MD Sara Vick Work Phone: [facility] 03-25-2023 11:05-0500 Respiratory rate 18 /min MD Sara Vick Work Phone: [facility] 03-25-2023 11:05-0500 SaO2% (BldA) [Mass fraction] 97 % MD Sara Vick Work Phone: [facility] 03-25-2023 11:05-0500 Systolic blood pressure 146 mm[Hg] MD Sara Vick Work Phone: [facility] 03-25-2023 10:27-0500 Inhaled oxygen flow rate 3 L/min MD Sara Vick Work Phone: [facility] 03-25-2023 10:14-0500 Body height 173.99 cm MD Sara Vick Work Phone: [facility] 03-25-2023 10:14-0500 Body weight 88.45 kg MD Sara Vick Work Phone: [facility] 01-27-2023 14:30-0400 Body height 175.26 cm Dominique Shane Other [employer] Other 01-27-2023 14:30-0400 Diastolic blood pressure 70 mm[Hg] Dominique Shane Other [employer] Other 01-27-2023 14:30-0400 SaO2% (BldA) [Mass fraction] 98 % Dominique Shane Other [employer] Other 01-27-2023 14:30-0400 Systolic blood pressure 118 mm[Hg] Dominique Shane Other [employer] Other 01-09-2023 10:15-0400 Body height 175.26 cm Larry Brown Other [employer] Other 01-09-2023 10:15-0400 Body mass index (BMI) [Ratio] 29.56 kg/m2 Larry Brown Other [employer] Other 01-09-2023 10:15-0400 Body weight 90.81 kg Larry Brown Other [employer] Other 01-09-2023 10:15-0400 Diastolic blood pressure 78 mm[Hg] Larry Brown Other [employer] Other 01-09-2023 10:15-0400 SaO2% (BldA) [Mass fraction] 98 % Larry Brown Other [employer] Other 01-09-2023 10:15-0400 Systolic blood pressure 130 mm[Hg] Larry Brown Other [employer] Other 12-12-2022 09:30-0400 Body height 175.26 cm Larry Brown Other [employer] Other 12-12-2022 09:30-0400 Body mass index (BMI) [Ratio] 29.77 kg/m2 Larry Brown Other [employer] Other 12-12-2022 09:30-0400 Body weight 91.45 kg Larry Brown Other [employer] Other 12-12-2022 09:30-0400 Diastolic blood pressure 74 mm[Hg] Larry Brown Other [employer] Other 12-12-2022 09:30-0400 SaO2% (BldA) [Mass fraction] 99 % Larry Brown Other [employer] Other 12-12-2022 09:30-0400 Systolic blood pressure 122 mm[Hg] Larry Brown Other [employer] Other 09-19-2022 12:00-0400 Body height 175.26 cm Larry Brown Other [employer] Other 09-19-2022 12:00-0400 Body mass index (BMI) [Ratio] 30.8 kg/m2 Larry Brown Other [employer] Other 09-19-2022 12:00-0400 Body weight 94.62 kg Larry Brown Other [employer] Other 09-19-2022 12:00-0400 SaO2% (BldA) [Mass fraction] 95 % Larry Brown Other [employer] Other 09-18-2022 10:40-0400 Body height 172.7 cm Perfecto Burch MD Work Phone: [facility] [email or web address] [facility] 09-18-2022 10:40-0400 Body mass index (BMI) [Ratio] 31.26 kg/m2 Perfecto Burch MD Work Phone: [facility] [email or web address] [facility] 09-18-2022 10:40-0400 Body temperature 96.4 [degF] Perfecto Burch MD Work Phone: [facility] [email or web address] [facility] 09-18-2022 10:40-0400 Body weight 93.26 kg Perfecto Burch MD Work Phone: [facility] 07-27-2022 15:38-0400 Hourly Rounding Francisco Ottoniel [facility] 07-27-2022 15:38-0400 Promise to Return Francisco Ottoniel [facility] 07-27-2022 14:38-0400 Hourly Rounding Francisco Ottoniel [facility] 07-27-2022 14:38-0400 Promise to Return Francisco Ottoniel [facility] 07-27-2022 13:38-0400 Hourly Rounding Francisco Ottoniel [facility] 07-27-2022 13:38-0400 Promise to Return Francisco Ottoniel [facility] 07-27-2022 12:08-0400 Heart rate 106 /min Francisco Ottoniel [facility] 07-27-2022 12:08-0400 SaO2% (BldA) [Mass fraction] 100 % Francisco Ottoniel [facility] 07-27-2022 12:07-0400 Diastolic blood pressure 79 mm[Hg] Francisco Ottoniel [facility] 07-27-2022 12:07-0400 Mean blood pressure 103 mm[Hg] Francisco Ottoniel [facility] 07-27-2022 12:07-0400 Systolic blood pressure 151 mm[Hg] Francisco Ottoniel [facility] 07-27-2022 12:06-0400 Body temperature 97.16 [degF] Francisco Ottoniel [facility] 07-27-2022 07:46-0400 Heart rate 82 /min Francisco Ottoniel [facility] 07-27-2022 07:46-0400 SaO2% (BldA) [Mass fraction] 97 % Francisco Ottoniel [facility] 07-27-2022 07:46-0400 Diastolic blood pressure 81 mm[Hg] Francisco Ottoniel [facility] 07-27-2022 07:46-0400 Mean blood pressure 116 mm[Hg] Francisco Ottoniel [facility] 07-27-2022 07:46-0400 Systolic blood pressure 186 mm[Hg] Francisco Ottoniel [facility] 07-27-2022 07:45-0400 Body temperature 97.52 [degF] Francisco Ottoniel [facility] 07-27-2022 01:46-0400 Heart rate 89 /min Francisco Ottoniel [facility] 07-27-2022 01:46-0400 SaO2% (BldA) [Mass fraction] 96 % Francisco Ottoinel [facility] 07-27-2022 01:45-0400 Diastolic blood pressure 67 mm[Hg] Francisco Ottoniel [facility] 07-27-2022 01:45-0400 Mean blood pressure 89 mm[Hg] Francisco Ottoniel [facility] 07-27-2022 01:45-0400 Systolic blood pressure 134 mm[Hg] Francisco Ottoniel [facility] 07-27-2022 01:45-0400 Body temperature 98.06 [degF] Francisco Ottoniel [facility] 07-27-2022 01:45-0400 Blood Pressure Location Francisco Ottoniel [facility] 07-27-2022 01:45-0400 Respiratory rate 18 /min Francisco Ottoniel [facility] 07-26-2022 20:00-0400 Respiratory rate 16 /min Francisco Ottoniel [facility] 07-26-2022 17:20-0400 Blood Pressure Location Francisco Ottoniel [facility] 07-26-2022 17:20-0400 Heart rate 78 /min Francisco Ottoniel [facility] 07-26-2022 15:30-0400 Respiratory rate 12 /min Francisco Ottoniel [facility] 07-26-2022 15:00-0400 Mean blood pressure 122 mm[Hg] Francisco Ottoniel [facility] 07-26-2022 15:00-0400 Respiratory rate 8 /min Francisco Ottoniel [facility] 07-26-2022 14:30-0400 Mean blood pressure 112 mm[Hg] Francisco Ottoniel [facility] 07-26-2022 14:30-0400 Respiratory rate 12 /min Francisco Ottoniel [facility] 07-26-2022 13:30-0400 Mean blood pressure 95 mm[Hg] Francisco Ottoniel [facility] 07-26-2022 11:35-0400 gluc 105 mg/dL Francisco Ottoniel [facility] 07-26-2022 11:35-0400 gluc Francisco Ottoniel [facility] 07-26-2022 11:35-0400 Heart rate 72 /min Francisco Ottoniel [facility] 07-26-2022 11:35-0400 Respiratory rate 18 /min Francisco Ottoniel [facility] 05-02-2022 10:00-0500 Body height 175.26 cm Larry Stephanie Other [facility] [employer] Other 05-02-2022 10:00-0500 Body mass index (BMI) [Ratio] 31.89 kg/m2 Larry Brown Other [employer] Other 05-02-2022 10:00-0500 Body weight 97.98 kg Larry Brown Other [employer] Other 05-02-2022 10:00-0500 Diastolic blood pressure 80 mm[Hg] Larry Brown Other [facility] [employer] Other 05-02-2022 10:00-0500 Systolic blood pressure 134 mm[Hg] Larry Brown Other [facility] [employer] Other 03-08-2022 17:00-0500 Diastolic blood pressure 117 mm[Hg] Wm Yakov [facility] 03-08-2022 17:00-0500 Mean blood pressure 131 mm[Hg] Wm Yakov [facility] 03-08-2022 17:00-0500 SaO2% (BldA) [Mass fraction] 95 % Mw Yakov [facility] 03-08-2022 17:00-0500 Systolic blood pressure 160 mm[Hg] Wm Yakov [facility] 03-08-2022 16:30-0500 Diastolic blood pressure 85 mm[Hg] Wm Yakov [facility] 03-08-2022 16:30-0500 Heart rate 75 /min Wm Yakov [facility] 03-08-2022 16:30-0500 Mean blood pressure 94 mm[Hg] Wm Yakov [facility] 03-08-2022 16:30-0500 Respiratory rate 15 /min Wm Yakov [facility] 03-08-2022 16:30-0500 SaO2% (BldA) [Mass fraction] 98 % Wm Yakov [facility] 03-08-2022 16:30-0500 Systolic blood pressure 112 mm[Hg] Wm Yakov [facility] 03-08-2022 16:10-0500 Diastolic blood pressure 74 mm[Hg] Wm Yakov [facility] 03-08-2022 16:10-0500 Heart rate 93 /min Wm Yakov [facility] 03-08-2022 16:10-0500 Mean blood pressure 90 mm[Hg] Wm Yakov [facility] 03-08-2022 16:10-0500 Respiratory rate 14 /min Wm Yakov [facility] 03-08-2022 16:10-0500 SaO2% (BldA) [Mass fraction] 98 % Wm Yakov [facility] 03-08-2022 16:10-0500 Systolic blood pressure 122 mm[Hg] Wm Yakov [facility] 03-08-2022 15:15-0500 Respiratory rate 18 /min Wm Yakov [facility] 03-08-2022 15:00-0500 Hourly Rounding Wm Yakov [facility] 03-08-2022 15:00-0500 Promise to Return Wm Yakov [facility] 03-08-2022 14:45-0500 Respiratory rate 20 /min Wm Yakov [facility] 03-08-2022 14:15-0500 Respiratory rate 20 /min Wm Yakov [facility] 03-08-2022 14:14-0500 Hourly Rounding Wm Yakov [facility] 03-08-2022 14:14-0500 Promise to Return Wm Yakov [facility] 03-08-2022 13:54-0500 Heart rate 99 /min Wm Nagy [facility] 03-08-2022 13:37-0500 Body temperature 97.7 [degF] Wm Nagy [facility] 03-08-2022 13:37-0500 Heart rate 104 /min Wm Nagy [facility] 03-08-2022 13:00-0500 Hourly Rounding Wm Nagy [facility] 03-08-2022 13:00-0500 Promise to Return Wm Nagy [facility] 03-07-2022 11:00-0500 Body height 175.26 cm Larry Carrilloky Other [employer] Other 03-07-2022 11:00-0500 Body mass index (BMI) [Ratio] 32.54 kg/m2 Larry Stephanie Other [employer] Other 03-07-2022 11:00-0500 Body weight 99.97 kg Larry Carrilloky Other [employer] Other 03-07-2022 11:00-0500 SaO2% (BldA) [Mass fraction] 99 % Larryrandy Brown Other [employer] Other 06-20-2017 09:19-0500 PAIN LEVEL 0 {score} [...] Start: 10-30-2023 End: 10-30-2023 ambulatory SARA VICK Facility:[facility] Start: 08-08-2023 End: 08-08-2023 ambulatory GHANSHYAM LOMBARDI Facility:[facility] Start: 08-08-2023 End: 08-08-2023 Subsequent hospital visit by physician Mri 6 Radio Main Q (I-Stat/1.5t/3t) Work Phone: MRI Q Comment on above: 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, 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] Start: 08-07-2023 End: 08-07-2023 ambulatory MD Sara Vick Work Phone: [facility] Work Phone: Start: 08-07-2023 End: 08-07-2023 Patient encounter procedure MD Sara Vick Work Phone: [facility] [place] Work Phone: Start: 08-05-2023 End: 08-06-2023 ambulatory ANNIE J PRINTY Not Available Start: 07-15-2023 End: 07-15-2023 ambulatory ANNIE PRINTY Not Available Start: 07-13-2023 End: 07-13-2023 ambulatory GHANSHYAMEVELINE LOMBARDI Facility:[facility] Start: 07-13-2023 End: 07-13-2023 Subsequent hospital visit by physician [facility] Dasia Work Phone: Radiology Comment on above: Chronic bilateral lo w back pain with bilateral sciatica [M54.42, M54.41, G89.29] Start: 07-01-2023 End: 07-01-2023 Patient encounter procedure MD Sara Vick Work Phone: [facility] Work Phone: Start: 06-30-2023 End: 06-30-2023 Patient encounter procedure MD Sara Vick Work Phone: [facility] Work Phone: Start: 06-29-2023 End: 06-29-2023 ambulatory ANNIE J PRINTY Not Available Start: 06-24-2023 End: 06-24-2023 Patient encounter procedure Ghanshyam Lombardi MD Work Phone: [facility] Comment on above: 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); Chronic bilateral low back pain with bilateral sciatica Start: 06-24-2023 End: 06-24-2023 ambulatory GHANSHYAM LOMBARDI Facility:[facility] Start: 06-24-2023 End: 06-24-2023 Subsequent hospital visit by physician Xr Main Qb1 Radiology Comment on above: 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] Start: 05-22-2023 End: 05-22-2023 ambulatory Sara Vick Facility:[facility] Start: 05-22-2023 End: 05-22-2023 ambulatory MD Sara Vick Work Phone: [facility] Work Phone: Start: 05-22-2023 End: 05-22-2023 Patient encounter procedure MD Sara Vick Work Phone: [facility]Ul[facility]ound [facility] [place] Work Phone: Start: 05-20-2023 End: 05-20-2023 ambulatory Sara Vick Facility:[facility] Start: 05-20-2023 End: 05-20-2023 Discharged Recurring MD Sara Vick Work Phone: [facility] Start: 05-20-2023 Registered Recurring MD Gideon Vick Work Phone: [facility] [address] Start: 05-18-2023 Patient encounter procedure MD Sara Vick Work Phone: [facility]- Start: 05-15-2023 End: 05-15-2023 ambulatory Larry Brown Other [employer] Other Start: 05-15-2023 Office outpatient vi sit 25 minutes Larry Brown [facility] [place] Start: 05-15-2023 End: 05-15-2023 Patient encounter procedure MD Sara Vick Work Phone: [facility]- Start: 05-13-2023 End: 05-13-2023 ambulatory Kiran Kessler Other [employer] Other Start: 05-13-2023 Office outpatient ne w 60 minutes Kiran Kessler [facility] Start: 05-13-2023 End: 05-13-2023 Patient encounter procedure MD Sara Vick Work Phone: [facility]- Start: 04-16-2023 End: 04-16-2023 ambulatory Dominique Shane Other [employer] Other Start: 04-16-2023 Telephone encounter Dominique Shane [facility] Start: 04-03-2023 End: 04-03-2023 ambulatory Larry Brown Other [employer] Other Start: 04-03-2023 Office outpatient vi sit 15 minutes Larry Brown [facility] [place] Start: 04-03-2023 End: 04-03-2023 Patient encounter procedure MD Sara Vick Work Phone: [facility] [place] Work Phone: Start: 03-25-2023 (PROC) PROCEDURE Larry Brown [facility] Start: 03-25-2023 End: 03-25-2023 ambulatory Sara Vick Facility:[facility] Start: 03-25-2023 End: 03-25-2023 Admission to same day surgery center MD Sara Vick Work Phone: [facility] Work Phone: Start: 03-25-2023 End: 03-25-2023 ambulatory MD Sara Vick Work Phone: [facility] Work Phone: Start: 03-06-2023 End: 03-06-2023 Patient encounter procedure MD Sara Vick Work Phone: [facility] [place] Work Phone: Start: 02-10-2023 End: 02-10-2023 ambulatory Dominique Shane Other [employer] Other Start: 02-10-2023 Telephone encounter Dominique Shane [facility] Start: 01-27-2023 End: 01-27-2023 ambulatory Dominique Shane Other [employer] Other Start: 01-27-2023 Office outpatient vi sit 25 minutes Dominique Shane [facility] [place] Start: 01-27-2023 Telephone encounter Larry Stephanie [facility] Start: 01-09-2023 End: 01-09-2023 ambulatory Larry Stephanie Other [employer] Other Start: 01-09-2023 Office outpatient vi sit 25 minutes Larry Stephanie [facility] [place] Start: 12-12-2022 End: 12-12-2022 ambulatory Larry Stephanie Other [employer] Other Start: 12-12-2022 Office outpatient vi sit 25 minutes Larry Stephanie [facility] [place] Start: 11-22-2022 End: 11-22-2022 Emergency department patient visit [facility] Facility:[facility] Start: 09-19-2022 End: 09-19-2022 ambulatory Larry Stephanie Other [employer] Other Start: 09-19-2022 Office outpatient vi sit 25 minutes Larry Stephanie [facility] [place] Start: 09-18-2022 ambulatory PERFECTO BURCH [facility] Start: 09-18-2022 End: 09-18-2022 Office outpatient new 30 minutes Perfecto Burch MD Work Phone: [facility] Comment on above: 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, sequela (Primary Dx) Start: 09-18-2022 End: 09-18-2022 Subsequent hospital visit by physician Perfecto Burch MD Work Phone: [facility] Start: 09-17-2022 ambulatory ADELE FLEMING Faci lity:[facility] Start: 09-10-2022 End: 09-10-2022 ambulatory Sara Vick Facility:[facility] Start: 09-09-2022 End: 09-10-2022 ambulatory ADELE FLEMING Facility:[facility] Start: 09-08-2022 End: 09-09-2022 ambulatory Alley Naranjo Facility:[facility] Start: 08-18-2022 End: 08-19-2022 ambulatory ADELE FLEMING Facility:[facility] Start: 08-13-2022 ambulatory PERFECTO BURCH [facility] Start: 08-12-2022 End: 08-13-2022 ambulatory ADELE FLEMING Facility:[facility] Start: 08-08-2022 End: 08-09-[address] ALFRED UMAÑA Facility:[facility] Start: 08-01-2022 End: 08-02-2022 ambulatory ADELE FLEMING Facility:[facility] Start: 07-26-2022 End: 07-27-2022 ambulatory Julio Ferrara Facility:[facility] Start: 07-26-2022 End: 07-27-2022 Observation Franciscoalberto Alcazar [facility] Start: 07-25-2022 Encounter for preprocedural cardiovascular examination ADELE FLEMING [facility] Start: 07-25-2022 Encounter for preprocedural laboratory examination ADELE FLEMING [facility] Start: 07-24-2022 End: 07-25-2022 ambulatory ADELE FLEMING [...] 06-19-2022 ambulatory MD Sara Vick Work Phone: [facility] Work Phone: Start: 06-19-2022 End: 06-19-2022 Discharged Recurring MD Sara Vick Work Phone: [facility] [place] Work Phone: Start: 06-13-2022 End: 06-14-2022 ambulatory [...] 05-02-2022 End: 05-02-2022 ambulatory Larry Brown Other [employer] Other Start: 05-02-2022 Office outpatient vi sit 25 minutes Larry Brown [facility] [place] Start: 05-01-2022 End: 05-02-2022 ambulatory ADELE FLEMING Facility:[facility] Start: 04-22-2022 End: 04-23-2022 ambulatory ADELE FLEMING Facility:[facility] Start: 04-14-2022 End: 04-15-2022 ambulatory DEEPALI JANSEN Facility:[facility] Start: 04-08-2022 (PROC) PROCEDURE Larry Beck [facility] Start: 04-08-2022 End: 04-08-2022 ambulatory Larry Brown Other [employer] Other Start: 03-31-2022 End: 04-01-[address] ALFRED UMAÑA Facility:[facility] Start: 03-08-2022 End: 03-08-2022 Emergency department patient visit Wm Nagy Facility:[facility] Start: 03-08-2022 End: 03-08-2022 Emergency department patient visit Wm Nagy [facility] Start: 03-07-2022 End: 03-07-2022 ambulatory Larry Brown Other [employer] Other Start: 03-07-2022 Office consultation new/estab patient 60 min Larry Brown [facility] [place] Start: 03-06-2022 End: 03-07-[address] SARA VICK . Facility:[facility] Start: 01-03-2022 End: 01-03-[address] SARA VICK . Facility:[facility] Start: 12-09-2021 End: 12-10-2021 ambulatory SHAWANDA LITTLE Facility:[facility] Start: 11-05-2021 End: 11-06-2021 ambulatory ADELE Means [facility] Facility:[facility] Start: 10-07-2021 End: 10-07-2021 ambulatory PO SUAREZ . Facility:[facility] Start: 05-04-2020 End: 05-04-2020 Patient encounter procedure Sara Hoy -Pre-Surgical Testing Start: 05-02-2020 Registered Recurring Sara Vick -P hysical Therapy [facility] [place] Start: 04-24-2020 End: 04-24-2020 Patient encounter procedure Sara Hoy -Pre-Surgical Testing Start: 02-01-2020 End: 02-01-2020 Patient encounter procedure Sara Vick -X[facility] Start: 06-29-2018 Patient encounter procedure Sara~[id number] UNKNOWN Hoy Facility:[facility] Start: 12-11-2017 End: 12-12-2017 Patient encounter DEFAULT PHYSICIAN Facility:[facility] Procedures Date Procedure Procedure Detail Performing Clinician Start: 08-08-2023 Mri spinal canal tho racic w/o contrast matrl Ghanshyam Lombardi MD Work Phone: Start: 07-13-2023 Ct lumbar spine w/o contrast material Ghanshyam Lombardi MD Work Phone: Start: 06-24-2023 End: 06-24-2023 Radex spine lumbosacral minimum 4 views Ros Cedeño [employer] Work Phone: Start: 05-22-2023 Pulse volume recorde [...] for malignant neoplasm of breast Mammogram Screening [facility] Start: 06-23-2024 BP Controlled (<130/80) BP Controlled (<130/80) [facility] Start: 12-20-2023 Influenza vaccination Influenza Vaccine (Season Ended) [facility] Start: 05-22-2023 Pulse volume recorder pneumoplethysmography US arterial pvr rest [facility] Start: 05-22-2023 [facility] Start: 05-22-2023 Duplex scan of lower limb veins US venous duplex LE [facility] Start: 05-22-2023 US Lower extremity vein - bilateral [facility] Start: 04-20-2023 Advance Directive Discussion Advance Directive Discussion [facility] Start: 04-20-2023 Behavioral Health Screening Behavioral Health Screening [facility] Start: 04-20-2023 Depression Assessment Depression Assessment [facility] Start: 03-25-2023 [facility] Start: 02-28-2023 Screening for malignant neoplasm of breast Mammogram Screening [facility] Start: 12-19-2022 Covid-19 Vaccine ( season) Covid-19 Vaccine () [facility] Start: 12-19-2022 Influenza vaccination Influenza Vaccine (#1) [facility] Start: 01-28-2022 COVID-19 VACCINE (5 - Booster for Pfizer series) COVID-19 VACCINE (5 - Booster for Pfizer series) [facility] Start: 08-24-2019 Screening for malignant neoplasm of breast MAMMOGRAM SCREENING DISCUSSION [facility] Start: 12-20-2016 Screening for osteoporosis Bone Density Screening [facility] Start: 06-17-2014 Diabetes Screening Diabetes Screening [facility] Start: 2011 RSV Vaccine (1 - 1-dose 60+ series) RSV Vaccine (1 - 1-dose 60+ series) [facility] Start: 12-20-2001 Shingrix Vaccine (1 of 2) Shingrix Vaccine (1 of 2) [facility] Start: 12-20-2001 Zoster vaccine hzv live for subcutaneous use ZOSTER (SHINGLES) VACCINE (1 of 2) [facility] Start: 12-20-1996 Lipid panel Lipid Screening [facility] Start: 12-20-1996 Screening for malignant neoplasm of colon [facility] Start: 1991 Lipid panel LIPID SCREENING [facility] Start: 12-20-1972 Screening for malignant neoplasm of cervix CERVICAL CANCER SCREENING DISCUSSION [facility] Start: 12-20-1970 Third diphtheria, tetanus and acellular pertussis (DTaP) vaccination TDAP (ADULT) [facility] Start: 12-20-1970 Urine microalbumin profile DTaP,Tdap,Td Vaccine (1 - Tdap) [facility] Start: 12-20-1969 Annual PCP Team Chronic Disease Visit Annual PCP Team Chronic Disease Visit [facility] Start: 1950 Hepatitis C screening HEPATITIS C VIRUS SCREENING [facility] Start: 1950 Screening for osteoporosis DEXA SCAN DISCUSSION [facility] Start: 1950 Tetanus vaccination TETANUS [facility] End: 07-23-2024 CT Lumbar spine WO contrast CT LUMBAR SPINE WO IVCON Radiology Routine Chronic bilateral low back pain with bilateral sciatica 1 Occurrences starting 06/24/2023 until 07/23/2024 [facility] Work Phone: Comment on above: 1 Occurrences starting 06/24/2023 until 07/23/2024 End: 07-23-2024 MR Thoracic spine WO contrast MRI THORACIC SPINE WO IVCON Radiology Routine 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 1 Occurrences starting 06/24/2023 until 07/23/2024 [facility] Work Phone: Comment on above: 1 Occurrences starting 06/24/2023 until 07/23/2024 Patient Education Stephanie Non Diagn ostic Block [facility] Work Phone: Patient referral [facility] Work Phone: XR Knee - left 3 Views XR KNEE L EFT 3 VIEWS Imaging Routine Pain in prosthetic joint, sequela Ordered: 09/16/2022 [facility] Comment on above: Ordered: 09/16/2022 XR Pelvis and Hip - left Views X R HIP WITH PELVIS LEFT Imaging Routine Pain in prosthetic joint, sequela 09/18/2022 10:11 AM EDT [facility] Work Phone: [facility] Immunizations Immunization Date Immunization Notes Care Provider Fa cili 02-11-2022 Influenza, injectabl e, Madin [place] Canine Kidney, preservative free, quadrivalent MD Sara Vick Work Phone: [facility] 02-11-2022 influenza virus vacc ine, unspecified formulation Ghanshyam Lombardi MD Work Phone: [facility] 12-03-2021 COVID-19 Comirnaty (Pfizer) Tri-Sucrose 12+ MD Sara Vick Work Phone: [facility] 03-25-2021 COVID-19 mRNA, Comir nicolle (Pfizer) MD Sara Vick Work Phone: [facility] 07-12-2020 COVID-19, mRNA, LNP- S, PF, 30 mcg/0.3 mL dose Wm Nagy [facility] Comment on above: Reason for Medicatio n: Prophylaxis 06-14-2020 COVID-19, mRNA, LNP- S, PF, 30 mcg/0.3 mL dose Wm Nagy [facility] Comment on above: Reason for Medicatio n: Prophylaxis 02-08-2020 Seasonal trivalent influenza vaccine, adjuvanted, preservative free MD Sara Vick Work Phone: [facility] 02-23-2018 influenza, injectabl e, madin josephine canine kidney, preservative free MD Sara Vick Work Phone: [facility] 02-18-2018 pneumococcal polysaccharide vaccine, 23 valent Wm Nagy [facility] 06-18-2017 tuberculin skin test ; unspecified formulation Praveen Bynum 02-24-2017 pneumococcal polysaccharide vaccine, 23 valent MD Sara Vick Work Phone: [facility] 02-05-2017 influenza, high dose seasonal, preservative-free MD Sara Vick Work Phone: [facility] 02-05-2017 pneumococcal conjuga te vaccine, 13 valent Wm Nagy [facility] 02-02-2016 influenza, seasonal, injectable, preservative free MD Sara Vick Work Phone: [facility] 10-20-2012 pneumococcal polysaccharide vaccine, 23 valent Wm Nagy [facility] Payers Date Payer Category Payer Unknown [id number] 2022 Self-pay [id number] 2022 Unknown [id number] 2022 Private Health Insurance 2018 Medicare [id number] 1959 Private Health Insurance [id number] 1950 Unknown [id number] 2.16.84 0.1.263882.3.579.2.727 1950 Unknown [id number] 2.16.8 40.1.393972.3.579.2.159 1951 Unknown [id number] 2.16.84 0.1.954411.3.579.2.593 1951 Unknown [id number] 2.16.84 0.1.545742.3.579.2.593 1951 Unknown [id number] 2.16.84 0.1.979414.3.579.2.593 1951 Unknown [id number] 2.16.84 0.1.547695.3.579.2.593 1951 Unknown [id number] 2.16.84 0.1.552458.3.579.2.593 1951 Unknown [id number] 2.16.84 0.1.241599.3.579.2.593 1951 Unknown [id number] 2.16.84 0.1.647970.3.579.2.593 1951 Unknown [id number] 2.16.84 0.1.336881.3.579.2.593 1951 Unknown [id number] 2.16.84 0.1.299526.3.579.2.593 1951 Unknown [id number] 2.16.84 0.1.650301.3.579.2.593 1951 Unknown [id number] 2.16.84 0.1.193825.3.579.2.593 1951 Unknown [id number] 2.16.84 0.1.312553.3.579.2.593 1951 Unknown [id number] 2.16.84 0.1.625257.3.579.2.593 1951 Unknown [id number] 2.16.84 0.1.040392.3.579.2.593 1951 Unknown [id number] 2.16.84 0.1.791514.3.579.2.593 1951 Unknown [id number] 2.16.84 0.1.663136.3.579.2.593 1951 Unknown [id number] 2.16.84 0.1.281153.3.579.2.593 1951 Unknown [id number] 2.16.84 0.1.080447.3.579.2.593 1951 Unknown [id number] 2.16.84 0.1.191809.3.579.2.593 1951 Unknown [id number] 2.16.84 0.1.948464.3.579.2.593 1951 Unknown [id number] 2.16.84 0.1.757180.3.579.2.593 1951 Unknown [id number] 2.16.84 0.1.511324.3.579.2.593 1951 Unknown [id number] 2.16.84 0.1.834517.3.579.2.593 1951 Unknown [id number] 2.16.84 0.1.121234.3.579.2.593 1951 Unknown [id number] 2.16.84 0.1.003163.3.579.2.593 1951 Unknown [id number] 2.16.84 0.1.287923.3.579.2.593 1951 Unknown [id number] 2.16.84 0.1.965287.3.579.2.593 1951 Unknown [id number] 2.16.84 0.1.970767.3.579.2.593 1951 Unknown [id number] 2.16.84 0.1.231883.3.579.2.593 1951 Unknown [id number] 2.16.8 40.1.597530.3.579.2.983 1951 Unknown [id number] 2.16.8 40.1.701044.3.579.2.983 1951 Unknown [id number] 2.16.8 40.1.673459.3.579.2.983 1951 Unknown [id number] 2.16.8 40.1.328829.3.579.2.727 1951 Unknown [id number] 2.16.8 40.1.066364.3.579.2.727 1951 Unknown [id number] 2.16.8 40.1.242458.3.579.2.727 1951 Unknown [id number] 2.16.8 40.1.384737.3.579.2.727 1951 Unknown [id number] 2.16.84 0.1.417878.3.579.2.1259 1951 Unknown [id number] 2.16.84 0.1.863574.3.579.2.1259 1951 Unknown [id number] 2.16.84 0.1.633560.3.579.2.1259 Unknown Unknown [id number] Unknown [id number] Unknown [id number] 2.16.8 40.1.802688.3.579.2.531 Unknown [id number] 2.16.8 40.1.282681.3.579.2.531 Unknown [id number] 2.16.8 40.1.755071.3.579.2.531 Unknown [id number] 2.16.8 40.1.477442.3.579.2.531 Social History Date Type Detail Facility Start: 06-18-2017 Unknown if ever smoked [employer] Start: 04-24-2020 End: 06-24-2023 Tobacco smoking status LAIS Never smoked tobacco (finding) [facility] Start: 1950 Sex Assigned At Female F [facility] Start: 06-24-2023 Sex Assigned [address] F [facility] Start: 09-18-2022 Tobacco use and exposure Smokeless tobacco non-user [facility] Start: 09-18-2022 End: 06-24-2023 Alcohol intake Current drinker of alcohol (finding) [facility] Start: 09-18-2022 Alcohol Comment occasional [facility] Start: 1950 Sex Assigned At Not on file [facility] Start: 06-24-2023 Alcohol intake [facility] National Score (1-100), lower number is lower risk 62 [facility] Medical Equipment Procedure Code Equipment Code Equipment Origin al Text Equipment Identifier Dates Arthroplasty, knee, total, minimally invasive Orthopaedic cement, non-medicated ()[id number] FDA Start: 05-07-2020 Arthroplasty, knee, total, minimally invasive Uncoated knee femur prosthesis, metallic ()[id number] FDA Start: 05-07-2020 Arthroplasty, knee, total, minimally invasive Tibial insert ()[id number] FDA Start: 05-07-2020 Arthroplasty, knee, total, minimally invasive Uncoated knee tibia prosthesis, metallic ()[id number] FDA Start: 05-07-2020 Arthroplasty, knee, total, minimally invasive Polyethylene patella prosthesis ()[id number] FDA Start: 05-07-2020 Goals Date Patient Goal Desired Activity /State Functional Status Date Assessment Result Facility 07-26-2022 Functional Status No [facility] 07-26-2022 Functional Status [facility] 03-08-2022 Functional Status No [facility] Clinical Notes 10-07-2021 to 08-08-2023 Flor [...] PATIENT PRESENTS WITH AN IMPLANTABLE OR ATTACHED RAG WASHER: No RADIOLOGY DEPARTMENT: MR; Exam(s) Completed: Spine: Thoracic spine PERIPHERAL IV DATA: Not applicable SIGNED BY: BAY Leo) August 08, 2023 3:59 PM documented in this encounter [facility] 08-08-2023 Note HNO ID: [id number] Author: FLOR ZIEGLER RT (R) Service: Radiology [...] PATIENT PRESENTS WITH AN IMPLANTABLE OR ATTACHED RAG WASHER: No RADIOLOGY DEPARTMENT: MR; Exam(s) Completed: Spine: Thoracic spine PERIPHERAL IV DATA: Not applicable SIGNED BY: RT Felipa(R) August 08, 2023 3:59 PM [facility] 07-13-2023 History of Present illness Narrative Radiology [...] PATIENT PRESENTS WITH AN IMPLANTABLE OR ATTACHED RAG WASHER: No RADIOLOGY DEPARTMENT: CT; Exam(s) Completed: Spine PERIPHERAL IV DATA: Not applicable SIGNED BY: RT Se(Bryce) July 13, 2023 10:44 AM documented in this encounter [facility] 07-13-2023 Note HNO ID: [id number] Author: TORRIE ABRAHAM RT(R) Service: Radiology Author [...] PATIENT PRESENTS WITH AN IMPLANTABLE OR ATTACHED RAG WASHER: No RADIOLOGY DEPARTMENT: CT; Exam(s) Completed: Spine PERIPHERAL IV DATA: Not applicable SIGNED BY: TorrieRT Courtney(R) July 13, 2023 10:44 AM [facility] 06-24-2023 Note HNO ID: [id number] Author: GHANSHYAM LOMBARDI MD Service: ? Author [...] discussion. 30 minutes spent Ghanshyam Lombardi MD [facility] 06-24-2023 History of Present illness Narrative Staff [...] Ghanshyam Lombardi MD documented in this encounter [facility] 05-15-2023 Evaluation note Encounter Date [...] In the meantime, she can continue taking Colton as needed all as well as Gabapentin [...] and no personal patient information was compromised. [employer] Other 01-24-2024 Evaluation note* Encounter Date Diagnosis [...] agrees with plan all questions were addressed. [employer] Other 12-28-2023 Evaluation note* Encounter Date Diagnosis Assessment Notes Treatment Notes Treatment Clinical Notes Mar, Lumbar radiculopathy (ICD-10 - M54.16) 72 year old female evaluated via telephonic call for follow up and medication refill for chronic pain. She voices complaints of low back pain with intermittent radiation down the right lower extremity. She continues taking Colton with relief and is requesting a refill of this today. I discussed different treatment options in detail with the patient. She feels medication is managing her pain and does not wish to proceed with injections at this time. I encouraged the patient to start physical therapy as previously discussed. She can also continue taking medications as prescribed and I will refill her Colton as she feels this provides an element [...] pain (ICD-10 - G89.29) Continue medication management. [facility] Other 12-15-2023 Evaluation note* Encounter Date Diagnosis [...] pain (ICD-10 - G89.29) Continue medication management. [facility] Other 10-24-2023 Evaluation note* Encounter Date Diagnosis Assessment Notes Treatment Notes Treatment Clinical Notes Jan, Lumbar radiculopathy (ICD-10 - M54.16) [facility] Other 10-10-2023 Evaluation note* Encounter Date Diagnosis [...] regarding this. 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 Hydrocodone/Acetamin ophen was refilled today, opioid risk assessment was done as well as pill count. Patient is compliant with opioid medication. The patient denies any opioid related side effects. 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 Hydrocodone/Aceta minophen was refilled today, opioid risk assessment was done as well as pill count. Patient is compliant with opioid medication. The patient denies any opioid related side effects. Patients last urine drug screen was positive for alcohol, she is counselled against consuming alcohol. [facility] Other 08-25-2023 Evaluation note* Encounter Date Diagnosis [...] M51.36) Stable, follow up in 4 weeks. [facility] Other 06-02-2023 Evaluation note* Encounter Date Diagnosis [...] nerve blocks in the future if needed. [facility] Other 06-01-2023 History of Present illness Narrative* [...] 09/18/2022 10:58 AM Patient: Leelee Cedillo MR#: [id number] : 1950 Age: 71 y.o. Referring Physician: Sorin Dickerson DO Insurance: Payor: [employer]ICARE [employer] PPO / Plan: MEDICARE [employer] HMO PPO [...] repair GALL BLADDER SURGERY 1999 BACK SURGERY [id number]- FOOT SURGERY [id number] Family History: Her family history is not [...] [x]cane, []bracing Are you followed by a hemotherapist? [] [x] Name: Are you followed by [...] repair GALL BLADDER SURGERY 1999 BACK SURGERY [id number]- FOOT SURGERY [phone] No family history on file. Social History [...] Rash Flagyl [Metronidazole] Dyspepsia [facility]:Result Comment: Electronically Signed By: Rachel SALTER\.br\Date and Time Signed: 07/27/22 15:21 EDT\.br\Electronically Co-Signed By: Ottoniel RUFF, Francisco Beck\.br\Date and Time Co- Signed: 07/27/22 17:04 [id number] Hospital Discharge instructions Patient Education 07/27/2022 15:20:26 [...] Follow these instructions at home: Medicines Take zpdx-chv-jsuaiub and prescription medicines only as told by [...] 04/06/2006 Document Revised: 07/29/2019 Document Reviewed: 02/23/2019 [employer] Patient Education 2020 [employer] 07/27/2022 15:20:26 Vasovagal Syncope, Pediatric Vasovagal [...] ?Squatting. ?Moving his or her legs. Give kgma-zoo-myxztxe and prescription medicines only as told by [...] 01/13/2009 Document Revised: 03/19/2018 Document Reviewed: 05/12/2017 [employer] Patient Education 2020 [employer]. Follow Up Care 07/26/2022 11:32:57 With:Sara Vick Address: [address] [place] [address]- Business (1) When: Unknown Comments:Call for followup appointment 7-10 days With:Julio Ferrara MD, NEU Address: [address] [place] [phone]- When:2 to 4 weeks [facility]04-09-2023 Evaluation + Plan noteExtracted from: Title:Discharge Note [...] With When Contact Information Sara Vick [address] [place] [address]- Business (1) Additional Instructions: Call for followup appointment 7-10 days Josias RUFF, CARLOS Thacker Within 2 to 4 weeks [address] [place] [address]- Additional Instructions: Near-Syncope Vasovagal Syncope, Pediatric Extracted [...] it is acute or subacute. It might youth probation officer to just be some focal white matter [...] devices) recent right foot surgery in [facility]/podiatry secondary to non healing food wound. Currently has wound vac intact to this operative site. 6. Osteoarthritis (M19.90: Unspecified osteoarthritis, unspecified site) osteoarthritis status post left hip replacement Has chronic back pain. 7. 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 Diagnostic Tests Pending * HgbA1c 07/27/22 [facility]04-08-20[facility] MiamisburgComment on above:Result Comment: Electronically Signed By: Rachel [...] if her pain increases in the future. [facility] Other [id number] NotePROCEDURE: XR FOOT RT MIN 3 VIEWS, [...] Electronically authenticated by: JULIO LOBATO Date: 2022-04-23 13:00[facility]01-04-2023 NotePROCEDURE: XR FOOT RT MIN 3 VIEWS, [...] Electronically authenticated by: JULIO LOBATO Date: 2022-04-23 13:00[facility]12-12-2022 NotePROCEDURE: XR ANKLE RT MIN 3 VIEWS [...] Electronically authenticated by: ALFRED UMAÑA Date: 2022-03-31 18:19[facility]11-19-2022 Hospital Discharge instructions Patient Education 03/08/2022 17:44:27 [...] 04/06/2006 Document Revised: 04/15/2017 Document Reviewed: 03/23/2017 [employer] Patient Education 2020 [employer] 03/08/2022 17:44:27 Hip Dislocation Hip Dislocation [...] Follow these instructions at home: Medicines Take cwkv-klt-lfqozfj and prescription medicines only as told by your health care provider. Ask your health care provider if the medicine prescribed to you: ?Requires you to avoid driving or using heavy machinery. ?Can cause constipation. You may need to take actions to prevent or treat constipation, such as: ?Drink enough fluid to keep your urine pale yellow. ?Take dtgs-glv-vzonpld or prescription medicines. ?Eat foods that are [...] in the [place] Do not drive yourself [facility]. Summary Hip dislocation happens when the [...] 12/30/2001 Document Revised: 12/29/2018 Document Reviewed: 12/30/2018 [employer] Patient Education 2020 [employer]. Follow Up Care 03/08/2022 13:37:46 With:Sorin DICKERSON Address: [address] [place] [phone] Business (1) When:03/11/2022 17:44:09 Comments:Call to establish follow-up care. Wear brace until follow-up with orthopedic surgery. With:Sara Vick Address: [address] [place] [address] [place] [address]- Business (1) When:03/11/2022 17:43:29 Comments:Call the office [...] you develop any new or worsening symptoms. [facility]11-19-2022 Evaluation + Plan noteExtracted from: Title:ED Note [...] XR Hip 2-3 Views Left + Pelvis [facility]11-18-2022 Evaluation note* Encounter Date Diagnosis Assessment Notes [...] negative findings were considered in medical decision-making. [facility] Other [id number] NotePROCEDURE: XR FOOT RT MIN 3 VIEWS [...] Electronically authenticated by: JULIO LOBATO Date: 2021-10-07 11:44[facility] [place] noteNo InformationNort Noemalife Other Evaluation noteNo assessment information available [facility] Work Phone: Evaluation note* Diagnosis Pain in prosthetic joint, sequela- Primary [facility] Diagnosis Adjacent segment disease of lumbar spine with history of fusion procedure- Primary Chronic bilateral low back pain with bilateral sciatica [facility] Diagnosis 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) documented in this [facility]* Diagnosis Chronic bilateral low back pain with bilateral sciatica documented in this [facility]* Diagnosis Onset Date Resolution Status Chronic pain acute Lumbar degenerative disc disease acute Lumbar radiculopathy acute Lumbosacral spondylosis acut e Sacroiliitis acute 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 acute Chronic pain acute Lumbar degenerative disc disease acute Lumbar radiculopathy acute Lumbosacral spondylosis acut e Sacroiliitis acute [facility] Work Phone: Evaluation note* Diagnosis 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 documented in [facility] general Narrative - Reported* Type Description [...] 2 021 Surgical History back surgeries x5 [facility] SFOX yuandr gilman 2018 [facility] Other [facility] general Narrative - Reported* Type Description Date [...] 2 021 Surgical History back surgeries x5 [facility] SFOX yuandr gilman 2019 Hospitalization History see above [facility] Other [facility] general Narrative - Reported* Type Description Date [...] 2 021 Surgical History back surgeries x5 [facility] carias-dr gilman 2018 Surgical History lazer surgery on her lt leg veins and she also had sclero tx on b/l legs 2022 Hospitalization History see above [facility] Other Hospital course Narrative No data available for this section [facility] No data available for this section [facility]Reason [facility] referral (narrative)* Diagnostic Procedure Only (Routine) - Closed Specialty Diagnoses / Procedures Referred By Maximiliano dee Referred To Contact XR IMAGING Diagnoses Fusion of spine of thoracolumbar region Procedures XR SCOLIOSIS PA STAND/LAT 2V RADEX ENTIR THRC LMBR CRV SAC SPI W/SKULL 2/3 VW Ros Cedeño APRN.STOCKROOM INVENTORY CLERK [address] [place] [address] Xr Imaging [place] [address] Referral ID Status Reason Start Date Expiration Date V isits Requested Visits Authorized [id number] Closed Auto-Generate d Referral 02/25/2023 03/26/2024 1 1 * Diagnostic Procedure Only (Routine) - Closed Specialty Diagnoses / Procedures Referred By Maximiliano dee Referred To Contact XR IMAGING Diagnoses Fusion of spine of thoracolumbar region Procedures XR LUMBAR MOTION 4V AP/LAT/ FLEX/EXT RADEX SPINE LUMBOSACRAL MINIMUM 4 VIEWS Ros Cedeño APRN.STOCKROOM INVENTORY CLERK [address] [place] [id number] Xr Imaging [place] [address] Referral ID Status Reason Start Date Expiration Date V isits Requested Visits Authorized [id number] Closed Auto-Generate d Referral 02/25/2023 03/26/2024 [address] [facility] for referral (narrative)* Diagnostic Procedure Only (Routine) - Closed Specialty Diagnoses / Procedures Referred By Maximiliano t Referred To Contact MR IMAGING Diagnoses 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 Procedures MRI THORACIC SPINE WO IVCON MRI SPINAL CANAL THORACIC W/O CONTRAST MATRL Ghanshyam Lombardi MD [address] [place] [address] Mr Imaging [place] [address] Referral ID Status Reason Start Date Expiration Date V isits Requested Visits Authorized [id number] Closed Auto-Generate d Referral 08/07/2023 09/07/2023 [address] [facility] for visit Narrative* Diagnostic Procedure Only (Routine) - Closed Specialty Diagnoses / Procedures Referred By Maximiliano t Referred To Contact XR IMAGING Diagnoses Fusion of spine of thoracolumbar region Procedures XR SCOLIOSIS PA STAND/LAT 2V RADEX ENTIR THRC LMBR CRV SAC SPI W/SKULL 2/3 VW Ros Cedeño, BARYTES GRINDER.STOCKROOM INVENTORY CLERK [address] [place] [address] Xr Imaging [place] [address] Referral ID Status Reason Start Date Expiration Date V isits Requested Visits Authorized [id number] Closed Auto-Generate d Referral 02/25/2023 03/26/2024 1 1 [facility] Advance Directives No Advanced Directives [...] FOLLOW UP; PVR'S, FF ULTRASOUND DONE AT [facility] MED REFILL FOR CHRONIC PAIN Reason for [...] W/O CONTRAST MATERIAL Ghanshyam Lombardi MD [address] [address] Ct Imaging [facility]95 Referral ID Status Reason Start Date Expiration Date Visits Requested Visits Authorized [id number] Pending Review Auto-Generat ed Referral 06/24/2023 07/23/2024 1 1 Specialty Diagnoses / Procedures Referred By Contac t Referred To Contact MR IMAGING Diagnoses 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 Procedures MRI THORACIC SPINE WO IVCON MRI SPINAL CANAL THORACIC W/O CONTRAST MATRL Ghanshyam Lombardi MD [address] [place] [id number] Mr Imaging [facility]95 Referral ID Status Reason Start Date Expiration Date Visits Requested Visits Authorized [id number] Pending Review Auto-Generat ed Referral 06/24/2023 07/23/2024 1 1 Specialty Diagnoses / Procedures Referred By Contac t Referred To Contact Diagnoses Pain in prosthetic joint, sequela Procedures XR HIP WITH PELVIS LEFT Perfecto Burch MD [address] [place] [address] Referral ID Status Reason Start Date Expiration Date V isits Requested Visits Authorized [id number] New Request 09/18/2022 10/13/2023 1 1 Specialty Diagnoses / Procedures Referred By Contac t Referred To Contact Diagnoses Pain in prosthetic joint, sequela Procedures XR KNEE LEFT 3 VIEWS Perfecto Burch MD [address] [place] [address] Referral ID Status Reason Start Date Expiration Date V isits Requested Visits Authorized [id number] New Request 09/16/2022 10/11/2023 1 1 Additional Source Comments INFORMATION SOURCE (unrecogn ized section and content) DATE CREATED AUTHOR 12/13/2017 [facility] DATE CREATED AUTHOR AUTHOR'S ORGANIZ ATION 07/10/2018 [place] [facility] DATE CREATED AUTHOR AUTHOR'S ORGANIZ ATION 02/25/2019 [facility] DATE CREATED AUTHOR AUTHOR'S ORGANIZ ATION 03/01/2022 [facility] DATE CREATED AUTHOR AUTHOR'S ORGANIZ ATION 07/26/2022 [facility] DATE CREATED AUTHOR AUTHOR'S ORGANIZ ATION 09/27/2022 [facility] DATE CREATED AUTHOR AUTHOR'S ORGANIZ ATION 09/27/2022 [facility] DATE CREATED AUTHOR AUTHOR'S ORGANIZ ATION 11/26/2022 [facility] [place] [facility] DATE CREATED AUTHOR AUTHOR'S ORGANIZ ATION 07/29/2023 [facility] y[facility] DATE CREATED AUTHOR AUTHOR'S ORGANIZ ATION 08/09/2023 [facility] dical Specialists EPIC DATE CREATED AUTHOR AUTHOR'S ORGANIZ ATION 11/05/2023 [facility] REASON FOR VISIT (unrecogniz ed section and content) Specialty Diagnoses / Procedures Referred By Contac t Referred To Contact Diagnoses Pain in prosthetic joint, sequela Procedures XR HIP WITH PELVIS LEFT Perfecto Burch MD [address] [place] [address] Referral ID Status Reason Start Date Expiration Date V isits Requested Visits Authorized [id number] New Request 09/18/2022 10/13/2023 1 1 Reason Comments Pain New Patient Reason Comments New Patient Specialty Diagnoses / Procedures Referred By Contac t Referred To Contact CT IMAGING Diagnoses Chronic bilateral low back pain with bilateral sciatica Procedures CT LUMBAR SPINE WO IVCON CT LUMBAR SPINE W/O CONTRAST MATERIAL Ghanshyam Lombardi MD [address] [place] [address] Ct Imaging [facility]95 Referral ID Status Reason Start Date Expiration Date V isits Requested Visits Authorized [id number] Closed Auto-Generate d Referral 07/11/2023 08/10/2023 2 [...] MATRL MRI WO CARLOS SEMAC A17 300 Ghanshaym Lombardi MD [address] [place] [address] [address] [place] [id number] Referral ID Status Reason Start Date Expiration Date Visits Re quested Visits Authorized [id number] Closed 08/07/2023 09/07/2023 1 1 Patient Care team informatio n (unrecognized section and content) Team Status: Active Member Role Status Dates Sara Vick MD Primary Care Provider Active Team Status: Inactive Member Role Status Dates Sara Vick MD Primary Care Provider, Attending Pr dusty Active Office Support Specialist Relationship Specialty Start Date End Date Sara Vick MD [address] [place] [address] PCP - General Family Medicine 04/09/22 Office Support Specialist Relationship Specialty Start Date End Date Sara Vick MD [address] [place] [address] PCP - General Family Medicine 04/09/22 Team [...] May 22, 2023 End: May 22, 2023 Office Support Specialist Relationship Specialty Start Date End Date Sara Vick MD PCP - General Family Medicine 06/09/11 Office Support Specialist Relationship Specialty Start Date End Date Sara Vick MD PCP - General Family Medicine 06/09/11 Office Support Specialist Relationship Specialty Start Date End Date Sara [...] or prosecute any alcohol or drug abuse patient.[facility] Center[facility] the event this information is protected by the Federal Confidentiality of Alcohol and Drug Abuse Patient Records regulations: The Federal rules restrict any use of the information to criminally investigate or prosecute any alcohol or drug abuse patient.[facility] CenterIn the event this information is protected by the Federal Confidentiality of Alcohol and Drug Abuse Patient Records regulations: The Federal rules restrict any use of the information to criminally investigate or prosecute any alcohol or drug abuse patient.[facility] CenterIn the event this information is protected by the Federal Confidentiality of Alcohol and Drug Abuse Patient Records regulations: The Federal rules restrict any use of the information to criminally investigate or prosecute any alcohol or drug abuse patient.[facility] FOR RECORDS PERTAINING TO PATIENTS [...] RECORDS. [facility]. provides no warranty or guarantee of the accuracy or completeness of information in this document.
== END 2024-07-20 09:00 | disposition home or self-care (01) ==
LOC: WC 09:01
PROVIDERS: PCP Family Medicine; Visit Provider Physician Assistant
DX: L89.892 Pressure ulcer of other site, stage 2 (principal)
CPT/HCPCS: 11042

== ENCOUNTER 2024-08-03 09:23 | Outpatient (OUT) | payer MEDICARE, SELFPAY ==
--- OUTSIDE RECORDS SUMMARY | 2024-08-03 09:46 | XMS_ITS | CCD ---
Author Organization [facility] Care Team Providers Care Adventure Education Teacher Name Role Phone Praveen Lopez Unavailable Unavailable PHYSICIAN, DEFAULT Unavailable Unavailable PHYSICIAN, DEFAULT Unavailable Unavailable SARA VICK Unavailable Unavailable Sara Vick~[phone] UNKNOWN Admitting Unavailable Sara Vick~[phone] UNKNOWN Attending Unavailable Sara Vick~[phone] UNKNOWN Referring Unavailable Sara Vick Primary Care Provider Trino Yoo Attending Provider Larry Brown Unavailable Sara Vick Primary Care Physician Lynn Salas Unavailable Unavailable Flor Wheeler Unavailable Unavailable ADELE FLEMING Attending Unavailable SARA VICK Primary Care Unavailable MD Sara Vick Primary Care Provider MD Sara Vick Attending Provider [phone] DEEPALI JANSEN Consulting Unavailable DEEPALI JANSEN Admitting [...] Unavailable Sara Vick MD Primary Care Provider [phone] Julio Ferrara Consulting Unavailable Francisco Alcazar S Admitting Unavailable Francisco Alcazar S Attending Unavailable Camby, Julio Consulting Unavailable Camby, Julio Consulting Unavailable Camby, Julio Consulting Unavailable Camby, Julio Consulting Unavailable Camby, Julio Consulting Unavailable Camby, Julio Consulting Unavailable Camby, Julio Consulting Unavailable Camby, Julio Consulting Unavailable Wm Nagy Attending Unavailable [...] Sulfonamides (Antibiotic) Drug allergy (disorder) 08-02-19 10 [facility] Repository (4 sources) Sulfamethoxazole; Translations: [sulfamethoxazole ] Drug Allergy Cutaneous eruption (morphologic abnormality) [facility] Repository (2 sources) Sulfur; Translations: [Sulfur] Drug Allergy [facility] Repository (11 sources) Sulfonamides (Antibiotic); Translations: [Sulfa (Sulfonamide Antibiotics)] Allergy to substance 07-17-19 07 Rash [facility] (17 sources) Sulfacetamide Drug Allergy 09-19-19 23 [facility] Other (2 sources) metroNIDAZOLE Drug Allergy 09-19-19 23 Dyspepsia [facility] (1 source) Sulfacetamide Drug Allergy 07-01-19 24 [facility] Repository Medications Current Medications Medication Drug [...] Active Start: 12-12-2022 take 1 tablet by dnona th every twenty-four hours HYDROcodone-Acetaminophen 5-325 MG 1 tab let as needed Orally daily for 30 days Dec, Active Start: 03-08-2022 [place] 325 mg-5 mg oral tablet 1 tab(s), Oral, q4hr for pain, 12 tab(s), Refill(s) 0, [facility]/pharmacy #[id number], 172, cm, 03/08/22 [...] Daily, # 30 tab(s), Refills(s) 0, Pharmacy: [facility]/pharmacy #[id number], 172.7, cm, 07/26/22 [...] 1:00am Start: 06-19-2017 take 1 tablet by [facility] once daily Pantoprazole Sodium Tablet Delayed Release [...] MUSCLOSKELETAL 06/19/2017 9:00:00 take 1 capsule by [facility] once daily at bedtime tiZANidine HCl 4 mg capsule Take 4 mg by mouth daily at bedtime. 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 Door Clamp Operator: [facility] Transcribe Date/Time: Aug 08 2023 9:09P Dictated by : HARRY JONES MD This examination was interpreted and the report reviewed and electronically signed by: HARRY JONES MD on Aug 08 2023 9:14PM EST [id number] Normal [facility] BI MAMMOGRAM SCREENING TOMOS YNTHESIS BILATERALon [...] IS VERY IMPORTANT TO YOUR HEALTH. THE [place] [employer] GUIDELINES RECOMMEND THAT WOMEN 40 [...] DATE OF EXAM: Jul 13 2023 11:11AM [facility] 0508 - CT LUMBAR SPINE WO [...] are 5 lumbar-type vertebrae. Anatomic variant: None. Supervisor [employer] (topogram) images: Left femoroacetabular arthroplasty. Alignment: Mild [...] any questions regarding this interpretation, please call [phone]. If you are unable to reach us at the number above, please feel free to contact [facility] eRadiology at [phone]. [id number] Normal [facility] CT Lumbar spine WO contrasto n 07-13-2023 [facility] CNOVon 06-24-2023 CNOV Office Visit (SPNSMN ) LEELEE CEDILLO ([id number]) 1950 F Date Time Provider Department 06/24/23 [...] Ghanshyam Lombardi MD Referring Provider: SARA VICK [[id number]] Allergies As of Date: 06/24/2023 Noted Allergy Reaction SULFA (SULFONAMIDE ANTIBIOTICS) 07/16/2006 Date Reviewed: 06/24/2023 Reviewed by: Kaur Manzano MA - Fully Assessed Reason for Visit: New Patient [172] Primary Visit Diagnosis:Adjacent segment disease of lumbar spine with history of fusion procedure [M51.36, Z98.1] Other Visit Diagnosis:Chronic bilateral low back pain with bilateral sciatica [M54.42, M54.41, G89.29] Order(s):MRI THORACIC SPINE WO IVCON [[id number]] Order #: [id number] FUTURE CT LUMBAR SPINE WO IVCON [[id number]] Order #: [id number] FUTURE Prescriptions as of 06/24/2023 - pantoprazole [...] Status:Closed by GHANSHYAM LOMBARDI on 06/24/23 Normal [facility] XR LUMBAR 4V AP/LAT/ FLEX/EX Ton [...] Number of different views (projections): 2 (accession [id number]), 4 (accession [id number]) COMPARISON: Radiographs dated 09/23/2021 RESULT: Counting reference: [...] changes with no evidence of hardware complication. Door Clamp Operator: [facility] Transcribe Date/Time: Jun 24 2023 12:52P Dictated by : LATASHA QUEZADA MD This examination was interpreted and the report reviewed and electronically signed by: LATASHA QUEZADA MD on Jun 24 2023 12:55PM EST [id number] Normal [facility] XR Lumbar spine Views W flex ion and W extensionon 06-24-2023 [facility] XR SCOLIOSIS 2V PA STAND/LAT on [...] Number of different views (projections): 2 (accession [id number]), 4 (accession [id number]) COMPARISON: Radiographs dated 09/23/2021 RESULT: Counting reference: [...] changes with no evidence of hardware complication. Door Clamp Operator: PSCB Transcribe Date/Time: Jun 24 2023 12:52P Dictated by : LATASHA QUEZADA MD This examination was interpreted and the report reviewed and electronically signed by: LATASHA QUEZADA MD on Jun 24 2023 12:55PM EST [id number] Normal [facility] XR Thoracic and lumbar spine Views for scoliosis W standingon 06-24-2023 [facility] US arterial pvr rest Vito US arterial pvr rest [facility] [place] [address] Ultrasound Report Signed Patient: Leelee Cedillo MR#: [id number] 56 : 1950 Acct:[id number] Age/Sex: 72 / F ADM Date: 05/22/23 [...] Drake Bates M.D.05/25/2023 10:58 AM Dictation Location: [place] [address] Tech: Katy Leone Transcribed By: LISBETH 05/25/23 1058 Dictated By: Drake Bates MD 05/25/23 1057 Signed By: 05/25/23 1058 Normal [facility] US venous duplex LE BIon US venous duplex LE BI [facility] [place] [address] Ultrasound Report Signed Patient: Leelee Cedillo MR#: [id number] 56 : 1950 Acct:[id number] Age/Sex: 72 / F ADM Date: 05/22/23 [...] vein has previously been stripped. No significant winder tender incompetence is noted. The lesser saphenous vein [...] Drake Bates M.D.05/25/2023 10:57 AM Dictation Location: [place] [address] Tech: Katy Leone Transcribed By: LISBETH 05/25/23 1057 Dictated By: Drake Bates MD 05/25/23 1055 Signed By: 05/25/23 1057 Normal [facility] ED Note-Physicianon 11-26-19 ED Note-Physician Normal [facility] Comment on above: Result Comment: Elec tronically Signed By: Sathya De La O PA-C\.br\Date and Time Signed: 11/22/22 14:13 EDT\.br\Electronically Co-Signed By: Flavio Castillo MD\.br\Date and Time Co-Signed: 11/25/22 13:23 EDT Consent for Treatmenton Consent for Treatment [id number]#1.0 0CD:127 Normal [facility] Discharge Instructionson Discharge Instructions [id number]#1. 00CD:127 Normal [facility] ED Clinical Summaryon 2022 ED Clinical Summary Normal Stefania wu [facility] ED Patient Education Noteon 11-22-2022 ED Patient Education Note Normal [facility] ED Patient Summaryon 023 ED Patient Summary Normal [facility] Neurology Forms- Texton Neurology Forms- Text [id number]#1. 00CD:127 Normal [facility] EEGon 09-11-2022 EEG [facility] Comment on above: Result Comment: Elec tronically Signed By: Jonathan Powell DO\.br\Date and Time Signed: 09/11/22 10:41 EDT Consent for Treatmenton 08-19 Consent for Treatment [id number]#1.0 0CD:127 Normal [facility] Physician Orderon 09-03-2022 Physician Order [id number]#1.0 0CD:127 Normal [facility] VC CONSULT FOLLOWUPon 2022 VC CONSULT FOLLOWUP Patient: ITZEL CEDILLO Exam Date: 08/08/2022 : 1950 Gender:F Ordering : DR ALFRED UMAÑA M.D. Admission #: [id number] Family : Order #: [id number] CLICK HERE TO VIEW EXAM RADIOLOGY REPORT [...] Umaña MD on 08/08/2022 at 10:59 Normal [facility] EXT VENOUS LT LIMITEDon 0 08-08-2022 VC EXT VENOUS LT LIMITED Patient: LEELEE CEDILLO Exam Date: 08/08/2022 : 1950 Gender:F Ordering : DR ALFRED UMAÑA M.D. Admission #: [id number] Family : Order #: [id number] CLICK HERE TO VIEW EXAM RADIOLOGY REPORT [...] Umaña MD on 08/08/2022 at 09:43 Normal [facility] Coding Summary.on 07-29-2022 Coding Summary. Normal [facility] Insurance Correspondenceon 0 07-29-2022 Insurance Correspondence [id number]#1.0 0CD:127 Normal [facility] Insurance Correspondence Off iceon 07-29-2022 Insurance Correspondence Office [id number]#1. 00CD:127 Normal [facility] Discharge Instructionson Discharge Instructions [id number]#1. 00CD:127 Normal [facility] LxxK2nll 07-28-2022 HbA1c (Bld) [Mass fraction] 5.3 % Normal <=5.9 [facility] Comment on above: Performed By: #### 2 605919, 2378312, 7890460, 6563396, 460256187, 98534103 ####[facility] [address] [place] [address] Insurance Correspondenceon 0 07-28-2022 Insurance Correspondence [id number]#1. 00CD:127 Normal [facility] C. diff by PCRon 07-27-2022 Clostridium difficile by PCR Negative Normal Negative [facility] Comment on above: Order Comment: Order added by Discern Expert. Result Comment: This test result should be correlated with clinical presentations and medical history by a healthcare provider to determine its clinical significance. Performed By: #### 3 [id number], [id number], [id number] ####[facility] [address] [facility] [place] [address] CDiff PCRon 07-27-2022 Cdiff Specimen Acceptable Acceptable Normal [facility] Comment on above: Performed By: #### 3 [id number], [id number], [id number] ####[facility] [address] [facility] [place] [address] Order Cancelled No, PCR to follow Normal Fi [facility] Comment on above: Performed By: #### 3 [id number], [id number], [id number] ####[facility] [address] [place] [address] CHEMISTRYOrdered By: SYSTEM SYSTEM on 07-27-2022 Anion [...] Remisol Consultation Noteon 07-28-19 Consultation Note Normal [facility] Comment on above: Result Comment: Elec tronically Signed By: Rachel MEEHAN, Smita Reardon\.br\Date and Time Signed: 07/27/22 07:14 EDT\.br\Electronically Co-Signed By: Jonathan Powell DO\.br\Date and Time Co-Signed: 07/27/22 10:23 EDT EMS Documentationon 07-28-19 EMS Documentation Normal [facility] EMS Documentation Normal [facility] EMS Documentation Normal [facility] Enteric Panel by PCRon 07-27 C. coli+jejuni+upsaliens is DNA VIVIANA+non-probe Ql (Stl) Not detected Normal [facility] Comment on above: Result Comment: Test ing was performed utilizing reverse winchman/crane operator (RT), polymerase chain reaction (PCR), and array [...] nulcleic acid test. Performed By: #### 3 [id number], [id number], [id number] ####[place] [address] [place] [address] E. coli stx1+stx2 genes VIVIANA+non-probe Ql (Stl) Negative Normal [facility] Comment on above: Performed By: #### 3 [id number], 2323133891, 758793236 ####[place] [address] [place] [address] Enteric Panel Intrl QC Pass Normal [facility] Comment on above: Result Comment: Test ing was performed utilizing reverse winchman/crane operator (RT), polymerase chain reaction (PCR), and array [...] 1 and 2. Performed By: #### 3 [id number], 0284419005, [id number] ####[place] [address] Norovirus genogroup I+II RNA VIVIANA+non-probe Ql (Stl) Not detected Normal [facility] Comment on above: Performed By: #### 3 [id number], 7203643492, 671890709 ####[place] [address] Rotavirus A RNA VIVIANA+non-probe Ql (Stl) Not detected Normal [facility] Comment on above: Performed By: #### 3 [id number], 9090413206, 075712409 ####[place] [address] S. enterica+bongori DNA VIVIANA+non-probe Ql (Stl) Not detected Normal [facility] Comment on above: Result Comment: This test result should be correlated with clinical presentations and medical history by a healthcare provider to determine its clinical significance. Performed By: #### 3 [id number], 3333775377, 886473643 ####[place] [address] Shigella species+EIEC invasion plasmid antigen H ipaH gene VIVIANA+non-probe Ql (Stl) Not detected Normal [facility] Comment on above: Performed By: #### 3 [id number], 2370470565, 772558657 ####[place] [address] V. cholerae+parahaemolyt icus+vulnificus DNA VIVIANA+non-probe Ql (Stl) Not detected Normal [facility] Comment on above: Performed By: #### 3 012683401, 3115493670, 283248591 ####[facility] [address] [place] [address] Y. enterocolitica DNA VIVIANA+non-probe Ql (Stl) Not detected Normal [facility] Comment on above: Performed By: #### 3 407473568, 8921082530, 420873882 ####[facility] [address] [place] [address] Free T4on 07-27-2022 Free T4 [Mass/Vol] 1.91 ng/dL High 0.58-1.64 [facility] Comment on above: Order Comment: Free T4 added by Discern Rule due to a TSH result of <0.34 or >5.60. Performed By: #### 2 791959, 2379142, 2173596, 3523741, 745325101, 30832613 ####[facility] [address] [place] [address] HEMATOLOGYOrdered By: Tonya Martin on 07-27-2022 WBC corrected for nucl RBC Auto (Bld) [#/Vol] 7.8 E9/L Normal 4.0 - 11.0 E9/L [facility] HemeAutoSS Inpatient Clinical Summaryon 07-27-2022 Inpatient Clinical Summary Normal [facility] Inpatient Patient Summaryon 07-27-2022 Inpatient Patient Summary Normal [facility] Inpatient Patient Summary Normal [facility] Interdisciplinary Note - Oumar e Manageron 07-27-2022 Interdisciplinary Note - Marketing Automation Manager Normal [facility] Comment on above: Result Comment: Elec tronically Signed By: Tonya Matias.alicja\Date and Time Signed: 07/27/22 12:04 EDT Interdisciplinary Note - Pipe n 07-27-2022 Interdisciplinary Note - OT Normal [facility] Interdisciplinary Note - PTo n 07-27-2022 Interdisciplinary Note - PT PT eval completed; pt scores 16/24 on the AM-PAC 6-Clicks 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 Pt is able to safely perform bed <> chair transfers as she was doing prior to admission and has no further PT needs at this time. Normal [facility] Lipid Panelon 07-27-2022 Cholesterol in LDL [Mass/Vol] 91 mg/dL Normal <=129 [facility] Comment on above: Performed By: #### 2 298745, 7142218, 8216266, 7592411, 122157750, 80518536 ####[facility] [address] [place] [address] Cholesterol [Mass/Vol] 160 mg/dL Normal 120-200 [facility] Comment on above: Performed By: #### 2 192068, 9847852, 5556084, 5700892, 668593746, 31862697 ####[facility] [address] [place] [address] Cholesterol in HDL [Mass/Vol] 52 mg/dL Invalid Interpretation Code [facility] Comment on above: Result Comment: HDL > or equal to 60 mg/dL: Low cardiovascular riskHDL < 40 mg/dL : High cardiovascular risk Performed By: #### 2 150847, 3365513, 4820961, 5728309, 950165435, 65402093 ####[facility] [address] [place] [address] Cholesterol in VLDL [Mass/Vol] 17 mg/dL Normal 7-40 [facility] Comment on above: Performed By: #### 2 599936, 2411688, 9196150, 6591302, 533526167, 06823015 ####[facility] [address] [place] [address] Triglyceride [Mass/Vol] 83 mg/dL Normal <=149 [facility] Comment on above: Performed By: #### 2 407751, 6603730, 2379065, 1449312, 161890335, 25226338 ####[facility] [address] [place] [address] Lyteson 07-27-2022 Anion gap [Moles/Vol] 9 mmol/L Normal 6-16 [facility] Comment on above: Performed By: #### 2 693720, 8259204, 1929320, 9892797, 910568466, 30783398 ####[facility] [address] [place] [address] Chloride [Moles/Vol] 106 mmol/L Normal 101-111 [facility] Comment on above: Performed By: #### 2 798497, 1201311, 4663059, 5022998, 156053130, 96551335 ####[facility] [address] [place] [address] CO2 [Moles/Vol] 26 mmol/L Normal 21-31 [facility] Comment on above: Performed By: #### 2 124428, 8033472, 3665773, 8707999, 209566400, 19971784 ####[facility] [address] [place] [address] Potassium [Moles/Vol] 4.0 mmol/L Normal 3.5-5.3 [facility] Comment on above: Performed By: #### 2 303038, 0726626, 9590465, 3128841, 661627979, 05584371 ####[facility] [address] [place] [address] Sodium [Moles/Vol] 137 mmol/L Normal 135-145 [facility] Comment on above: Performed By: #### 2 846501, 6531253, 9013760, 2092932, 825146337, 30853916 ####[facility] [address] [place] [address] MRA Head w/o Contraston MRA Head w/o Contrast Normal [facility] MRI Brain w/o Contraston MRI Brain w/o Contrast Normal [facility] Monitor Recordon 07-27-2022 Monitor Record [id number]#1. 00CD:127 Normal [facility] Monitor Record [id number]#1. 00CD:127 Normal [facility] Patient Education - Texton 0 07-27-2022 Patient Education - Text Normal [facility] RAD - MRI Screening Formon 0 07-27-2022 RAD - MRI Screening Form [id number]#1. 00CD:127 Normal [facility] TSH With T4fr Reflexon 07-27 TSH Qn 0.16 m[IU]/L Low 0.34-5.60 [facility] Comment on above: Performed By: #### 2 151361, 5168266, 4497028, 2642107, 385300587, 39765154 ####[facility] [address] [place] [address] Troponin 9 Hr.on 07-27-2022 Troponin I.cardiac [Mass/Vol] 6.70 pg/mL Low 10.10-27.10 [facility] Comment on above: Result Comment: The 95% CI (Confidence Interval) PPV (Positive Predictive Value) for myocardial infarction in females is 38 pg/mL, in males 51 pg/mL. The results should be used in conjunction with clinical conditions of myocardial infarction.(Access High Sensitivity Troponin I Instructions For Use, eyesFinder, November 2017) Performed By: #### 1 [id number] ####[facility] [address] [place] [address] WBCon 07-27-2022 WBC corrected for nucl RBC Auto (Bld) [#/Vol] 7.8 E9/L Normal 4.0-11.0 [facility] Comment on above: Performed By: #### 2 894838, 2037612, 9510158, 2590731, 539983906, 10286035 ####[facility] [address] [place] [address] Auto Diffon 07-26-2022 Basophils/100 WBC (Bld) 0.5 % Normal 0.0-2.0 [facility] Comment on above: Order Comment: Order Added by Discern Expert. Performed By: #### 2 107921, 6623817, 1788936, 8173549, 85772746, 44574790 ####[facility] [address] [place] [address] Basophils/Leukocytes Auto (Bld) [Pure # fraction] 0.1 E9/L Normal 0.0-0.2 [facility] Comment on above: Order Comment: Order Added by Discern Expert. Performed By: #### 2 694232, 8192837, 9091006, 0718785, 52436977, 13933793 ####[facility] [address] [place] [address] Eosinophils/100 WBC (Bld) 0.5 % Normal 0.0-8.0 [facility] Comment on above: Order Comment: Order Added by Discern Expert. Performed By: #### 2 697709, 1911256, 9360952, 2292712, 34271705, 15916050 ####[address] [address] Eosinophils/Leukocyte s Auto (Bld) [Pure # fraction] 0.1 E9/L Normal 0.0-0.5 [facility] Comment on above: Order Comment: Order Added by Ham Expert. Performed By: #### 2 201893, 9332475, 4793670, 6067010, 45752436, 87240719 ####[address] [address] Lymphocytes/100 WBC (Bld) 14.5 % Normal 14.0-50.0 [facility] Comment on above: Order Comment: Order Added by Ham Expert. Performed By: #### 2 936760, 4473331, 8398833, 3290431, 19994217, 98467691 ####[address] [address] Lymphocytes/Leukocyte s Auto (Bld) [Pure # fraction] 2.1 E9/L Normal 1.0-4.0 [facility] Comment on above: Order Comment: Order Added by Ham Expert. Performed By: #### 2 627712, 4544505, 2048501, 9563611, 44203533, 29244194 ####[address] [place] [address] Monocytes/100 WBC (Bld) 6.5 % Normal 4.0-14.0 [facility] Comment on above: Order Comment: Order Added by Discern Expert. Performed By: #### 2 290515, 4353587, 8541177, 9296204, 74735388, 17754524 ####[facility] [address] [place] [address] Monocytes/Leukocytes Auto (Bld) [Pure # fraction] 0.9 E9/L Normal 0.2-1.0 [facility] Comment on above: Order Comment: Order Added by Discern Expert. Performed By: #### 2 223959, 4039549, 1020685, 9826228, 48602143, 51881371 ####[facility] [address] [place] [address] Neutrophils/100 WBC (Bld) 78.0 % High 36.0-75.0 [facility] Comment on above: Order Comment: Order Added by Discern Expert. Performed By: #### 2 901981, 7822115, 9596186, 9471390, 92767121, 07391625 ####[facility] [address] [place] [address] Neutrophils/Leukocyte s Auto (Bld) [Pure # fraction] 11.4 E9/L High 2.0-7.5 [facility] Comment on above: Order Comment: Order Added by Discern Expert. Performed By: #### 2 716394, 9609649, 9944987, 3605366, 73026675, 92846380 ####[facility] [address] [place] [address] BMPon 07-26-2022 Creatinine [Mass/Vol] 0.8 mg/dL Normal 0.5-1.3 [facility] Comment on above: Performed By: #### 2 275582, 1064237, 0734192, 5846220, 79627330, 48234529 ####[facility] [address] [place] [address] Urea nitrogen [Mass/Vol] 11 mg/dL Normal 5-21 [facility] Comment on above: Performed By: #### 2 179157, 7089664, 3917997, 7837340, 11806042, 03703268 ####[facility] [address] [place] [address] Urea nitrogen/Creatinine [Mass ratio] 14 No Units Normal 10-20 [facility] Comment on above: Performed By: #### 2 391921, 6727640, 2955977, 0271405, 25160021, 71041864 ####[facility] [address] [place] [address] Anion gap [Moles/Vol] 13 mmol/L Normal 6-16 [facility] Comment on above: Performed By: #### 2 917936, 2631179, 1796018, 1366090, 94277984, 90276259 ####[facility] [address] [place] [address] Calcium [Mass/Vol] 9.3 mg/dL Normal 8.9-11.1 [facility] Comment on above: Performed By: #### 2 186455, 5069233, 4231969, 9754906, 35334733, 20467599 ####[facility] [address] [place] [address] Chloride [Moles/Vol] 101 mmol/L Normal 101-111 [facility] Comment on above: Performed By: #### 2 975321, 8581539, 4768149, 1717232, 39936614, 44797278 ####[facility] [address] [place] [address] CO2 [Moles/Vol] 27 mmol/L Normal 21-31 [facility] Comment on above: Performed By: #### 2 186857, 6786978, 8882643, 9899300, 46857660, 21183620 ####[facility] [address] [place] [address] Glucose [Mass/Vol] 88 mg/dL Normal 55-199 [facility] Comment on above: Result Comment: If t his glucose result represents a fasting glucose, interpretation should refer to the following reference range: 55-99 mg/dL Performed By: #### 2 453966, 2694178, 2788108, 2245070, 30774675, 29392874 ####[facility] [address] [place] [address] Potassium [Moles/Vol] 3.6 mmol/L Normal 3.5-5.3 [facility] Comment on above: Performed By: #### 2 196930, 0505550, 2727635, 8325200, 77821906, 30413049 ####[facility] [address] [place] [address] Sodium [Moles/Vol] 137 mmol/L Normal 135-145 [facility] Comment on above: Performed By: #### 2 669854, 9329112, 7743784, 8230567, 32457321, 30960736 ####[address] [address] CBC w/ Auto Diffon 3 Erythrocyte distribution width (RBC) [Ratio] 13.9 % Normal 10.9-14.2 [facility] Comment on above: Performed By: #### 2 631887, 2220524, 7864639, 1225201, 68186057, 53817681 ####[facility] [address] [place] [address] Hematocrit (Bld) [Volume fraction] 47.0 % High 34.0-46.0 [facility] Comment on above: Performed By: #### 2 895391, 2766349, 0443638, 7074871, 26111083, 33352961 ####[facility] [address] [place] [address] Hemoglobin (Bld) [Mass/Vol] 15.3 g/dL Normal 12.0-16.0 [facility] Comment on above: Performed By: #### 2 072004, 9500228, 5882277, 9513276, 40548448, 54520539 ####[facility] [address] [place] [address] MCH (RBC) [Entitic mass] 29.2 pg Normal 27.0-34.0 [facility] Comment on above: Performed By: #### 2 832342, 8597734, 3844805, 9599821, 31212560, 64968811 ####[address] [address] MCHC (RBC) [Mass/Vol] 32.7 g/dL Normal 31.4-36.0 [facility] Comment on above: Performed By: #### 2 946181, 7200130, 0569598, 4117033, 53090947, 23005104 ####[address] [address] MCV (RBC) [Entitic vol] 89.3 fL Normal 80.0-100.0 [facility] Comment on above: Performed By: #### 2 950169, 3881635, 7072755, 3064044, 55006743, 21500453 ####[address] [address] Platelet mean volume (Bld) [Entitic vol] 6.7 fL Normal 6.4-10.8 [facility] Comment on above: Performed By: #### 2 427745, 0482721, 6454457, 2210733, 16102614, 77011541 ####[address] [address] Platelets (Bld) [#/Vol] 324.0 E9/L Normal 150.0-500.0 [facility] Comment on above: Performed By: #### 2 564159, 1675732, 0983422, 4086727, 55482671, 83996696 ####[address] [address] RBC (Bld) [#/Vol] 5.3 E12/L Normal 4.3-5.9 [facility] Comment on above: Performed By: #### 2 938478, 9391036, 3907333, 4799620, 65863732, 83922622 ####[facility] [address] [place] [address] WBC corrected for nucl RBC Auto (Bld) [#/Vol] 14.6 E9/L High 4.0-11.0 [facility] Comment on above: Performed By: #### 2 219547, 2879891, 7783332, 9948307, 26200843, 48483856 ####[facility] [address] [place] [address] CHEMISTRYOrdered By: SYSTEM SYSTEM on 07-26-2022 Troponin [...] mg/dL Normal 1.3 - 2 .4 mg/dL [facility] Remisol Potassium [Moles/Vol] 3.6 mmol/L Normal 3.5 - 5.3 mmol/L [facility] Remisol Sodium [Moles/Vol] 137 mmol/L Normal 135 - 145 mmol/L [facility] Remisol Urea nitrogen [Mass/Vol] 11 mg/dL Normal 5 - 21 mg/dL [facility] Remisol Urea nitrogen/Creatinine [Mass ratio] 14 mg/mg Normal 10 - 20 [facility] Remisol CHEMISTRYOrdered By: Lab ROP User on 07-26-2022 Glucose [Mass/Vol] 106 mg/dL High 55 - 99 mg/dL [facility] POC Subsection Comment on above: Result Comment: Parker wills RN/ POC Device SN [id number] Invalid Interpretation Code [facility] POC Subsection POC User ID [id number] Invalid Interpretation Code [facility] POC Subsection POC Username SHANKAR ABARCA Invalid Interpretation Code [facility] POC Subsection CT Head or Brain w/o Contras ton 07-26-2022 CT Head or Brain w/o Contrast Normal [facility] Capillary Glucose POCon Glucose [Mass/Vol] 106 mg/dL High 55-99 [facility] Comment on above: Result Comment: Parker wills RN/ Performed By: #### 2 [id number] ####[facility] [address] [place] [address] Consent for Treatmenton Consent for Treatment [id number] 0CD:127 Normal [facility] ED Clinical Summaryon 2022 ED Clinical Summary Normal [facility] ED Note-Physicianon 07-27-19 ED Note-Physician Normal [facility] Comment on above: Result Comment: Elec tronically Signed By: Yaritza Cedeño PA-C\.br\Date and Time Signed: 07/26/22 14:17 EDT\.br\Electronically Co-Signed By: Lance Wu M.D.\.br\Date and Time Co-Signed: 07/26/22 15:36 EDT ED Patient Education Noteon 07-26-2022 ED Patient Education Note Normal [facility] ED Patient Summaryon 023 ED Patient Summary Normal [facility] HEMATOLOGYOrdered By: SYSTEM SYSTEM on 07-26-2022 [...] 14.6 E9/L High 4.0 - 11.0 E9/L [facility] HemeAutoSS Magnesiumon 07-26-2022 Magnesium [Mass/Vol] 2.0 mg/dL Normal 1.3-2.4 [facility] Comment on above: Performed By: #### 2 129239, 2221133, 2740889, 0912741, 25059370, 69395165 ####[facility] [address] [place] [address] Monitor Recordon 07-26-2022 Monitor Record [id number]. 00CD:127 Normal [facility] Pre-Arrival Noteon 3 Pre-Arrival Note Normal [facility] Troponin 0 Hr.on 07-26-2022 Troponin I.cardiac [Mass/Vol] 6.60 pg/mL Low 10.10-27.10 [facility] Comment on above: Order Comment: pt st ill in imaging, will check back later [id number] 07/26/2022 12:32:06 EDT Result Comment: The 95% CI (Confidence Interval) PPV (Positive Predictive Value) for myocardial infarction in females is 38 pg/mL, in males 51 pg/mL. The results should be used in conjunction with clinical conditions of myocardial infarction.(Access High Sensitivity Troponin I Instructions For Use, Christy Larry, November 2017) Performed By: #### 2 973867, 5071798, 6747087, 7777074, 68082724, 19102278 ####[facility] [address] [place] [address] Troponin 3 Hr.on 07-26-2022 Troponin I.cardiac [Mass/Vol] 6.00 pg/mL Low 10.10-27.10 [facility] Comment on above: Result Comment: The 95% CI (Confidence Interval) PPV (Positive Predictive Value) for myocardial infarction in females is 38 pg/mL, in males 51 pg/mL. The results should be used in conjunction with clinical conditions of myocardial infarction.(Access High Sensitivity Troponin I Instructions For Use, eyesFinder, November 2017) Performed By: #### 1 1285258 ####[address] [address] Troponin 6 Hr.on 07-26-2022 Troponin I.cardiac [Mass/Vol] 5.40 pg/mL Low 10.10-27.10 [facility] Comment on above: Result Comment: The 95% CI (Confidence Interval) PPV (Positive Predictive Value) for myocardial infarction in females is 38 pg/mL, in males 51 pg/mL. The results should be used in conjunction with clinical conditions of myocardial infarction.(Access High Sensitivity Troponin I Instructions For Use, eyesFinder, November 2017) Performed By: #### 1 6974202 ####[address] [address] UA With Cult Reflexon 2022 Bacteria LM Ql (Urine sed) TRACE Normal Trace [facility] Comment on above: Performed By: #### 1 5655861 ####[address] [address] Bilirubin Ql (U) Negative Normal Negative [facility] Comment on above: Performed By: #### 1 5878378 ####[address] [address] Clarity (U) CLEAR Normal Clear [facility] Comment on above: Performed By: #### 1 4858877 ####[address] [address] Color (U) YELLOW Normal Yellow [facility] Comment on above: Performed By: #### 1 1835744 ####[facility] [address] [place] [address] Epithelial cells.squamous LM.HPF (Urine sed) [#/Area] 3-4 Normal 0-2 [facility] [place] Comment on above: Performed By: #### 1 7750512 ####[address] [place] [address] Glucose Test strip (U) [Mass/Vol] Negative Normal Negative [facility] Comment on above: Performed By: #### 1 9587841 ####[address] [address] Hemoglobin Ql (U) Negative Normal Negative [facility] Comment on above: Performed By: #### 1 5831081 ####[address] [address] Ketones (U) [Mass/Vol] Negative Normal Negative [facility] Comment on above: Performed By: #### 1 0739268 ####[address] [address] Mcqueeney.plasma/Lithiu m.RBC (Bld) [Mass ratio] 0-3 Normal 0-3 [facility] Comment on above: Performed By: #### 1 0521472 ####[address] [address] Nitrite Ql (U) Negative Normal Negative [facility] Comment on above: Performed By: #### 1 4499293 ####[address] [address] pH (U) 6.5 [pH] Invalid Interpretation Code 5.0-9.0 [facility] Comment on above: Performed By: #### 1 4283840 ####[address] [address] Protein (U) [Mass/Vol] Negative Normal Negative [facility] Comment on above: Performed By: #### 1 9937552 ####[address] [address] Specific gravity (U) [Rel density] <=1.005 Invalid Interpretation Code 1.005-1.030 [facility] Comment on above: Performed By: #### 1 8021100 ####[facility] [address] [place] [address] Type of Urine collection method Clean Catch Normal [facility] Comment on above: Performed By: #### 1 3673943 ####[facility] [address] [place] [address]157 Urobilinogen Qn (U) 0.2 {Malu'U}/dL Normal 0.0-1.0 [facility] Comment on above: Performed By: #### 1 6605830 ####[facility] [address] [place] [address] WBC Auto Ql (U) TRACE Abnormal Negative [facility] Comment on above: Performed By: #### 1 9338968 ####[place] [address] WBC LM.HPF (Urine sed) [#/Area] 0-5 Normal 0-5 [facility] Comment on above: Performed By: #### 1 1240430 ####[place] [address] URINALYSISOrdered By: Katerina Parker on 07-26-2022 Bacteria [...] PM) Normal Negative [facility] UA Auto SS Mcqueeney.plasma/Lithiu m.RBC (Bld) [Mass ratio] 0-3 /HPF Normal [...] FT UA Auto SS Urobilinogen Qn (U) 0.2739254 {Malu'U}/dL Normal 0.0 - 1.0 EU/dL [facility] UA Auto SS WBC Auto Ql (U) Trace *ABN* (07/26/22 4:49 PM) Invalid Interpretation Code Negative [facility] UA Auto SS WBC LM.HPF (Urine sed) [#/Area] 0-5 /HPF Normal 0-5/HPF [facility] UA Auto SS XR Chest Single Viewon 07-26 XR Chest Single View Normal [facility] eGFRon 07-26-2022 GFR/1.73 sq M.predicted among blacks MDRD (S/P/Bld) [Vol rate/Area] mL/min/{1.73_m2} Normal >=59 [facility] Comment on above: Order Comment: Order added by Discern Expert. Result Comment: eGFR is race adjusted. AA=. Performed By: #### 2 840275, 7652724, 4796242, 8430749, 70271373, 59658863 ####[facility] [address] [place] [address] GFR/1.73 sq M.predicted among non-blacks MDRD (S/P/Bld) [Vol rate/Area] mL/min/{1.73_m2} Normal >=59 [facility] Comment on above: Order Comment: Order added by Discern Expert. Result Comment: Recruitment Assistant gina kidney disease could be indicated at eGFR's of less than 60 mL/min/1.73m2. Kidney failure is indicated at less than 15 mL/min/1.73m2. Performed By: #### 2 502143, 9271222, 5122586, 9652413, 90334343, 88123767 ####[facility] [address] [place] [address] SURGICAL PATH REPORTon 07-25 SURGICAL PATH REPORT [facility] Department of Pathology [address] [place] [id number] Name: LEELEE CEDILLO : 1950 [facility] [id number] Number: Gender [facility] : n: Admit 71 years Attending ADELE FLEMING Age: Provider: Ordering ADELE FLEMING Provider: Consulti Surgical Pathology Report ng: ACCESSION: COLLECTED DATE/TIME: RECEIVED DATE/TIME: PATHOLOGIST: [id number] 07/24/2022 12:16 EDT 07/24/2022 12:16 EDT MICHELINE STERN MD Final Diagnosis Report for [facility] [place] [place] RIGHT ANKLE, PUNCH BIOPSY: - FRAGMENT [...] MP:alexa 07/24/2022 Tissue pathology report for: [facility], [address] [place] [address]; ____ ____ Print 07/25/2022 15:48 EDT Number: Date/Time: [facility] Department of Pathology [address] [place], [place] [address] [phone] Name: LEELEE CEDILLO : 1950 [employer] [id number] Number: Gender Female [employer] [facility]WALDO : n: Admit 71 years Attending ADELE FLEMING Age: Provider: Ordering ADELE FLEMING Provider: Consulti Surgical Pathology Report ng: ACCESSION: COLLECTED DATE/TIME: RECEIVED DATE/TIME: PATHOLOGIST: [id number] 07/24/2022 12:16 EDT 07/24/2022 12:16 EDT LEENA RUFF, MICHELINE Gross Description PATHOLOGY SERVICES PROVIDED BY [employer] (CLIA #[id number]) in cooperation with [facility] at [address] [place] [address] ( CLIA #[id number]) Microscopic Diagnosis The final diagnosis is based on a microscopic 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 Codes CPT CODE: 73399 ____ ____ Print 07/25/2022 15:48 EDT Number: Date/Time: [facility] Comment on above: Performed By: #### 9 [id number] #### [facility] Laboratory Services [address] [place] [address] Saw Superintendent: Jared Oh MD POINT OF CARE GLUCOSEon 04-0 Glucose [Mass/Vol] 114 mg/dL Critically high 74-106 [facility] Comment on above: Performed By: #### P OCGLUC #### [facility] [address] [address] [address] Salvador Yung Glucose [Mass/Vol] 112 mg/dL Critically high 74-106 [facility] Comment on above: Performed By: #### P OCGLUC #### [facility] [address] [place] [address] [address] Salvador Yung EMS Documentationon 07-21-19 EMS Documentation Normal [facility] Covid-19 PCR (CVDTBH)on 06-20 SARS-CoV-2 (COVID-19) RNA VIVIANA+probe Ql (Unsp spec) Not detected Normal NOT DETECTED [facility] [place] [facility] Comment on above: Result Comment: This test is not yet approved or cleared by the [place] FDA. When there are no FDA-approved or cleared tests available, and other criteria are met, FDA can make tests available under an emergency access mechanism called an Emergency Use Authorization (EUA). The EUA for this test is supported by the [place] of Health and Human Service's (HHS's) declaration [...] SARS-CoV-2. Performed By: #### C VDTBH #### [facility] [address] [place], [place] [address] Dr. Salvador Yung PROF CHEM 8 (BAS METB)on Anion gap [Moles/Vol] 12.0 mmol/L Normal [facility] Comment on above: Performed By: #### B MP #### [facility] [address] [place] [address] [address] Salvador Yung Calcium [Mass/Vol] 9.4 mg/dL Normal 8.5-10.1 [facility] [place] [facility] Comment on above: Performed By: #### B MP #### [facility] [address] [place] [address] [address] Salvador Yung Chloride [Moles/Vol] 100 mmol/L Normal 98-107 [facility] [place] [facility] Comment on above: Performed By: #### B MP #### [facility] [address] [place] [address] [address] Salvador Yung CO2 [Moles/Vol] 29.8 mmol/L Normal 21.0-32.0 [facility] Comment on above: Performed By: #### B MP #### [facility] [address] [address] [address] Salvador Yung Creatinine [Mass/Vol] 0.91 mg/dL Normal 0.55-1.02 [facility] Comment on above: Performed By: #### B MP #### [facility] [address] [place] [address] [address] Salvador Yung EGFR-AF FRENCH >60 Normal >=60 [facility] Comment on above: Performed By: #### B MP #### [facility] [address] [address] [address] Salvador Yung EGFR-NON AF FRENCH >60 Normal >=60 [facility] [place] [facility] Comment on above: Performed By: #### B MP #### [facility] [address] [address] [address] Salvador Yung Glucose [Mass/Vol] 82 mg/dL Normal 74-106 [facility] [place] [facility] Comment on above: Performed By: #### B MP #### [facility] [address] [address] [address] Salvador Yung Potassium [Moles/Vol] 3.8 mmol/L Normal 3.5-5.1 [facility] Comment on above: Performed By: #### B MP #### [facility] [address] [address] [address] Salvador Yung Sodium [Moles/Vol] 138 mmol/L Normal 136-145 [facility] Comment on above: Performed By: #### B MP #### [facility] [address] [address] [address] Salvador Yung Urea nitrogen [Mass/Vol] 12.0 mg/dL Normal 7.0-18.0 [facility] Comment on above: Performed By: #### B MP #### [facility] [address] [place] [address] [address] Salvador Yung Urea nitrogen/Creatinine [Mass ratio] 13.2 mg/mg Normal [facility] Comment on above: Performed By: #### B MP #### [facility] [address] [place] [address] [address] 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 Admission #: [id number] Family : Order #: [id number] CLICK HERE TO VIEW EXAM RADIOLOGY REPORT [...] Lobato M.D. on 07/01/2022 at 15:22 Normal [facility] VC CONSULT FOLLOWUPon 2022 VC CONSULT FOLLOWUP Patient: ITZEL CEDILLO Exam Date: 06/19/2022 : 1950 Gender:F Ordering : DR ALFRED UMAÑA M.D. Admission #: [id number] Family : Order #: [id number] CLICK HERE TO VIEW EXAM RADIOLOGY REPORT [...] Umaña MD on 06/19/2022 at 14:17 Normal [facility] VC EXT VENOUS LT LIMITEDon 0 06-19-2022 VC EXT VENOUS LT LIMITED Patient: LEELEE CEDILLO Exam Date: 06/19/2022 : 1950 Gender:F Ordering : DR ALFRED UMAÑA M.D. Admission #: [id number] Family : Order #: [id number] CLICK HERE TO VIEW EXAM RADIOLOGY REPORT [...] Umaña MD on 06/19/2022 at 14:15 Normal [facility] VC INJ FOAM SCLERO W US MLTI on 06-13-2022 VC INJ FOAM SCLERO W US MLTI Patient: LEELEE CEDILLO Exam Date: 06/13/2022 : 1950 Gender:F Ordering : DR ALFRED UMAÑA M.D. Admission #: [id number] Family : Order #: [id number] CLICK HERE TO VIEW EXAM RADIOLOGY REPORT [...] (more content not included)... Normal [facility] [place] [facility] VC CONSULT FOLLOWUPon 2022 VC CONSULT FOLLOWUP Patient: ITZEL CEDILLO Exam Date: 06/10/2022 : 1950 Gender:F Ordering : DR ALFRED UMAÑA M.D. Admission #: [id number] Family : Order #: [id number] CLICK HERE TO VIEW EXAM RADIOLOGY REPORT [...] Lobato M.D. on 06/10/2022 at 12:36 Normal [facility] VC EXT VENOUS RT LIMITEDon 0 06-10-2022 VC EXT VENOUS RT LIMITED Patient: LEELEE CEDILLO Exam Date: 06/10/2022 : 1950 Gender:F Ordering : DR ALFRED UMAÑA M.D. Admission #: [id number] Family : Order #: [id number] CLICK HERE TO VIEW EXAM RADIOLOGY REPORT [...] Lobato M.D. on 06/10/2022 at 12:33 Normal [facility] VC INJ FOAM SCLERO W US MLTI on 06-03-2022 VC INJ FOAM SCLERO W US MLTI Patient: LEELEE CEDILLO Exam Date: 06/03/2022 : 1950 Gender:F Ordering : DR ALFRED UMAÑA M.D. Admission #: [id number] Family : Order #: [id number] CLICK HERE TO VIEW EXAM RADIOLOGY REPORT PROCEDURE: VEIN CENTER INJECTION FOAM SCLEROSING SOLUTION WITH ULTRASOUND MULTIPLE VEINS COMPARISON: None. Pre-operative Diagnosis: CEAP class C6 venous insufficiency with pain, tenderness, edema and incompetent right small saphenous vein and winder tender vein, incompetent varicose veins, venous insufficiency right leg secondary to venous incompetence Post-operative Diagnosis: CEAP class C6 venous insufficiency with pain, tenderness, edema and incompetent right small saphenous vein and winder tender vein, incompetent varicose veins, venous insufficiency right [...] (more content not included)... Normal [facility] [place] [facility] VC CONSULT FOLLOWUPon 2022 VC CONSULT FOLLOWUP Patient: ITZEL CEDILLO Exam Date: 05/28/2022 : 1950 Gender:F Ordering : DR ALFRED UMAÑA M.D. Admission #: [id number] Family : Order #: [id number] CLICK HERE TO VIEW EXAM RADIOLOGY REPORT [...] Umaña MD on 05/28/2022 at 11:44 Normal [facility] VC EXT VENOUS RT LIMITEDon 0 05-28-2022 VC EXT VENOUS RT LIMITED Patient: LEELEE CEDILLO Exam Date: 05/28/2022 : 1950 Gender:F Ordering : DR ALFRED UMAÑA M.D. Admission #: [id number] Family : Order #: [id number] CLICK HERE TO VIEW EXAM RADIOLOGY REPORT [...] extends to distal lower leg. Thrombus in winder tender distal medial lower leg 2.8 mm from [...] on 05/28/2022 at 11:30 Normal [facility] [place] [facility] CBC AUTO DIFFon 05-21-2022 BASO # 0.1 103/ul Normal 0.0-0.1 [facility] [place] [facility] Comment on above: Performed By: #### C BC #### [facility] [address] [place] [address] [address] Salvador Yung Basophils/100 WBC (Bld) 0.6 % Normal 0.2-2.0 [facility] [place] [facility] Comment on above: Performed By: #### C BC #### [facility] [address] [place] [address] Dr. Salvador Yung EO # 0.1 103/ul Normal 0.0-0.7 [facility] [place] [facility] Comment on above: Performed By: #### C BC #### [facility] [address] [place] [address] Dr. Salvador Yung Eosinophils/100 WBC (Bld) 0.6 % Critically low 0.9-7.0 [facility] [place] [facility] Comment on above: Performed By: #### C BC #### [facility] [address] [place] [address] Dr. Salvador Yung Erythrocyte distribution width (RBC) [Ratio] 12.4 % Normal 11.0-15.0 [facility] Comment on above: Performed By: #### C BC #### [facility] [address] [place] [address] Dr. Salvador Yung Hematocrit (Bld) [Volume fraction] 43.1 % Normal 36.0-48.0 [facility] Comment on above: Performed By: #### C BC #### [facility] [address] [place] [address] Dr. Salvador Yung Hemoglobin (Bld) [Mass/Vol] 13.8 g/dL Normal 12.0-16.0 [facility] Comment on above: Performed By: #### C BC #### [facility] [address] [place] [address] Dr. Salvador Yung IG # 0.06 10e3/ul Critically high 0.00-0.03 [facility] Comment on above: Performed By: #### C BC #### [facility] [address] [place] [address] Dr. Salvador Yung IG % 0.7 % Critically high 0.0-0.5 [facility] Comment on above: Performed By: #### C BC #### [facility] [address] [place] [address] Dr. Salvador Yung LYMPH # 1.7 103/ul Normal 1.2-3.8 [facility] Comment on above: Performed By: #### C BC #### [facility] [address] [place] [address] Dr. Salvador Yung Lymphocytes/100 WBC (Bld) 20.2 % Critically low 20.5-60.0 [facility] Comment on above: Performed By: #### C BC #### [facility] [address] [place] [address] Dr. Salvador Yung MANUAL DIFF REQ NO Normal [facility] Comment on above: Performed By: #### C BC #### [facility] [address] [place] [address] Dr. Salvador Yung MCH (RBC) [Entitic mass] 30.1 pg Normal 26.7-34.0 [facility] Comment on above: Performed By: #### C BC #### [facility] [address] [place] [address] Dr. Salvador Yung MCHC (RBC) [Mass/Vol] 32.0 g/dL Normal 29.9-35.2 [facility] Comment on above: Performed By: #### C BC #### [facility] [address] [place] [address] Dr. Salvador Yung MCV (RBC) [Entitic vol] 93.9 fL Normal 81.0-99.0 [facility] Comment on above: Performed By: #### C BC #### [facility] [address] [place] [address] Dr. Salvador Yung MONO # 0.5 103/ul Normal 0.3-0.8 [facility] Comment on above: Performed By: #### C BC #### [facility] [address] [place] [address] Dr. Salvador Yung Monocytes/100 WBC (Bld) 6.1 % Normal 1.7-12.0 [facility] Comment on above: Performed By: #### C BC #### [facility] [address] [place] [address] Dr. Salvador Yung NEUT # 6.1 103/ul Normal 1.4-6.5 [facility] Comment on above: Performed By: #### C BC #### [facility] [address] [place] [address] Dr. Salvador Yung Neutrophils/100 WBC (Bld) 71.8 % Normal 43.0-75.0 [facility] Comment on above: Performed By: #### C BC #### [facility] [address] [place] [address] Dr. Salvador Yung Platelet mean volume (Bld) [Entitic vol] 8.2 fL Critically low 9.5-13.5 [facility] Comment on above: Performed By: #### C BC #### [facility] [address] [place] [address] Dr. Salvador Yung PLT 246 103/ul Normal 150-450 [facility] Comment on above: Performed By: #### C BC #### [facility] [address] [place] [address] Dr. Salvador Yung RBC 4.59 106/ul Normal 4.20-5.40 [facility] Comment on above: Performed By: #### C BC #### [facility] [address] [place] [address] Dr. Salvador Yung WBC 8.5 103/ul Normal 4.0-11.0 [facility] Comment on above: Performed By: #### C BC #### [facility] [address] [place] [address] Dr. Salvador Yung FREE T3on 05-21-2022 FREE T3 2.14 pg/mlL Critically low 2.18-3.98 [facility] Comment on above: Performed By: #### P OCGLUC #### [facility] [address] [address] [address] Salvador Yung GLYCOHEMOGLOBIN A1Con 2022 ADA RECOMMENDATION SEE BELOW Normal [facility] [place] [facility] Comment on above: Result Comment: ADA RECOMMENDED LIMIT 4.0 - 6.0 ADA THERAPEUTIC TARGET < 7.0 ACTION SUGGESTED > 7.0 Performed By: #### P OCGLUC #### [facility] [address] [address] [address] Salvador Yung Glucose [Mass/Vol] 100 mg/dL Normal [facility] [place] [facility] Comment on above: Performed By: #### P OCGLUC #### [facility] [address] [place] [address] Dr. Salvador Yung HbA1c (Bld) [Mass fraction] 5.1 % Normal 4.5-6.2 [facility] Comment on above: Performed By: #### P OCGLUC #### [facility] [address] [place] [address] Dr. Salvador Yung LIPID PROFILEon 05-21-2022 CHOL-HDL RATIO NORM SEE BELOW Normal [facility] Comment on above: Result Comment: 3.3 - 4.4 LOW RISK 4.4 - 7.1 AVERAGE RISK 7.1 - 11.0 MODERATE RISK >11.0 HIGH RISK Performed By: #### P OCGLUC #### [facility] [address] [address] [address] Salvador Yung Cholesterol [Mass/Vol] 164 mg/dL Normal <=200 [facility] Comment on above: Performed By: #### P OCGLUC #### [facility] [address] [address] [address] Salvador Yung Cholesterol in HDL [Mass/Vol] 61 mg/dL Critically high 40-60 [facility] Comment on above: Performed By: #### P OCGLUC #### [facility] [address] [address] [address] Salvador Yung Cholesterol in LDL [Mass/Vol] 90.2 mg/dL Normal [facility] Comment on above: Performed By: #### P OCGLUC #### [facility] [address] [address] [address] Salvador Yung Cholesterol.total/Cho lesterol in HDL [Mass ratio] 2.7 {ratio} Normal [facility] Comment on above: Performed By: #### P OCGLUC #### [facility] [address] [address] [address] Salvador Yung HDL NORMAL > or = 60 mg/dl - LO W CARDIOVASCULAR RISK <40 mg/dl - HIGH CARDIOVASCULAR RISK Normal [facility] Comment on above: Performed By: #### P OCGLUC #### [facility] [address] [address] [address] Salvador Yung LDL CALC NORMAL SEE BELOW Normal [facility] Comment on above: Result Comment: <100 mg/dl OPTIMAL 100 - 129 mg/dl NEAR OR ABOVE OPTIMAL 130 - 159 mg/dl BORDERLINE HIGH 160 - 189 mg/dl HIGH >190 mg/dl VERY HIGH Performed By: #### P OCGLUC #### [facility] [address] [address] [address] Salvador Yung Triglyceride [Mass/Vol] 64 mg/dL Normal <=150 [facility] Comment on above: Performed By: #### P OCGLUC #### [facility] [address] [address] [address] Salvador Yung VLDL CALC 12.8 mg/dL Normal [facility] Comment on above: Performed By: #### P OCGLUC #### [facility] [address] [address] [address] Salvador Yung PROF 14(COMP METB)on 023 Albumin [Mass/Vol] 3.2 g/dL Critically low 3.4-5.0 [facility] Comment on above: Performed By: #### P OCGLUC #### [facility] [address] [place] [address] Dr. Salvador Yung Albumin/Globulin [Mass ratio] 0.7 {ratio} Normal [facility] Comment on above: Performed By: #### P OCGLUC #### [facility] [address] [address] [address] Salvador Yung ALP [Catalytic activity/Vol] 68 U/L Normal 46-116 [facility] Comment on above: Performed By: #### P OCGLUC #### [facility] [address] [place] [address] Dr. Salvador Yung ALT [Catalytic activity/Vol] 25 U/L Normal 14-59 [facility] Comment on above: Performed By: #### P OCGLUC #### [facility] [address] [address] [address] Salvador Yung Anion gap [Moles/Vol] 11.8 mmol/L Normal [facility] Comment on above: Performed By: #### P OCGLUC #### [facility] [address] [place] [address] Dr. Salvador Yung AST [Catalytic activity/Vol] 20 U/L Normal 15-37 [facility] Comment on above: Performed By: #### P OCGLUC #### [facility] [address] [address] [address] Salvador Yung Bilirubin [Mass/Vol] 0.5 mg/dL Normal 0.2-1.0 [facility] Comment on above: Performed By: #### P OCGLUC #### [facility] [address] [place] [address] Dr. Salvador Yung Calcium [Mass/Vol] 8.9 mg/dL Normal 8.5-10.1 [facility] Comment on above: Performed By: #### P OCGLUC #### [facility] [address] [place] [address] Dr. Salvador Yung Chloride [Moles/Vol] 105 mmol/L Normal 98-107 [facility] Comment on above: Performed By: #### P OCGLUC #### [facility] [address] [place] [address] Dr. Salvador Yung CO2 [Moles/Vol] 29.9 mmol/L Normal 21.0-32.0 [facility] Comment on above: Performed By: #### P OCGLUC #### [facility] [address] [place] [address] Dr. Salvador Yung Creatinine [Mass/Vol] 0.74 mg/dL Normal 0.55-1.02 [facility] Comment on above: Performed By: #### P OCGLUC #### [facility] [address] [address] [address] Salvador Yung EGFR-AF FRENCH >60 Normal >=60 [facility] Comment on above: Performed By: #### P OCGLUC #### [facility] [address] [address] [address] Salvador Yung EGFR-NON AF FRENCH >60 Normal >=60 [facility] Comment on above: Performed By: #### P OCGLUC #### [facility] [address] [address] [address] Salvador Yung Globulin (S) [Mass/Vol] 4.3 g/dL Normal [facility] Comment on above: Performed By: #### P OCGLUC #### [facility] [address] [place] [address] Dr. Salvador Yung Glucose [Mass/Vol] 88 mg/dL Normal 74-106 [facility] Comment on above: Performed By: #### P OCGLUC #### [facility] [address] [address] [address] Salvador Yung Potassium [Moles/Vol] 3.7 mmol/L Normal 3.5-5.1 [facility] Comment on above: Performed By: #### P OCGLUC #### [facility] [address] [address] [address] Salvador Yung Protein [Mass/Vol] 7.5 g/dL Normal 6.4-8.2 [facility] [place] [facility] Comment on above: Performed By: #### P OCGLUC #### [facility] [address] [address] [address] Salvador Yung Sodium [Moles/Vol] 143 mmol/L Normal 136-145 [facility] [place] [facility] Comment on above: Performed By: #### P OCGLUC #### [facility] [address] [address] [address] Salvador Yung Urea nitrogen [Mass/Vol] 11.0 mg/dL Normal 7.0-18.0 [facility] Comment on above: Performed By: #### P OCGLUC #### [facility] [address] [address] [address] Salvador Yung Urea nitrogen/Creatinine [Mass ratio] 14.9 mg/mg Normal [facility] Comment on above: Performed By: #### P OCGLUC #### [facility] [address] [place] [address] Dr. Salvador Yung T4on 05-21-2022 T4 [Mass/Vol] 11.60 ug/dL Normal 4.80-13.90 [facility] Comment on above: Performed By: #### P OCGLUC #### [facility] [address] [place] [address] Dr. Salvador Yung TSHon 05-21-2022 TSH 0.165 uIU/mL Critically low 0.358-3.740 [facility] Comment on above: Performed By: #### P OCGLUC #### [facility] [address] [place] [address] Dr. Salvador Yung VC ENDOVENOUS ABL 1ST V RTon 05-21-2022 VC ENDOVENOUS ABL 1ST V RT Patient: LEELEE CEDILLO Exam Date: 05/21/2022 : 1950 Gender:F Ordering : DR ALFRED UMAÑA M.D. Admission #: [id number] Family : Order #: [id number] CLICK HERE TO VIEW EXAM RADIOLOGY REPORT [...] MD on 05/21/2022 at 13:51 Normal [facility] VITAMIN D 25 OHon 05-21-2022 VIT D 25-OH 25.1 ng/mL Normal [facility] Comment on above: Performed By: #### V ITAD #### [facility] [address], [place] [address] Dr. Salvador Yung VIT D RANGES SEE BELOW Normal [facility] Comment on above: Result Comment: <20 ng/mL Vit D deficient 20 - <30 ng/mL Vit D insufficient 30 - 100 ng/mL Vit D sufficient >100 ng/mL Potential Toxicity Performed By: #### V ITAD #### [facility] [address] [address] [address] Salvador Yung XR HIP LT 2 [...] MARI LORENZO Date: 2022-05-21 16:26 Normal [facility] VC COMP CONSULTATIONon 05-01 VC COMP CONSULTATION Patient: REAGAN CEDILLO Exam Date: 05/01/2022 : 1950 Gender:F Ordering : DR. ADELE FLEMING D.P.MKimberlee Admission #: [id number] Family : Order #: [id number] CLICK HERE [...] small saphenous vein, right lower extremity incompetent winder tender veins, and bilateral lower extremity incompetent branch [...] arterial disease 5. CEAP: C6, EC, AP, TX PLAN: 1. Continued use of compression stockings 2. Elevated legs and increased physical activity symptomatic relief 3. Endovenous laser ablation of right small saphenous vein and winder tender vein. 4. Microfoam chemical ablation of dilated, [...] Lobato M.D. on 05/01/2022 at 15:27 Normal [facility] VC VENOUS REFLUX SAMI LMTon 0 05-01-2022 VC VENOUS REFLUX SAMI LMT Patient: LEELEE CEDILLO Exam Date: 05/01/2022 : 1950 Gender:F Ordering : DR. ADELE FLEMING D.P.M. Admission #: [id number] Family : DR ALFRED UMAÑA M.D. Order #: [id number] CLICK HERE TO VIEW EXAM RADIOLOGY REPORT [...] chronic thrombus visualized Compressibility: Normal Flow: Normal [employer] Consultant: Dist/med calf 2.6mm with 0s reflux. Mid/med calf 3.5mm with 0s reflux. Tech Note: GSV has been previously stripped. Patent varicose vein mid/med calf 2.3mm with 0.5s reflux. Patent varicose vein prox/med calf 3.4mm with 1.2s reflux. Patent varicose vein dist/med thigh 5.4mm with 0.8s reflux. CONCLUSION: 1. Dilated, incompetent right small saphenous vein. 2. 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 3. Consultation for endovenous laser ablation is recommended. Dictated by: Julio Lobato M.D. on 05/01/2022 at 14:06 Approved by: Julio Lobato M.D. on 05/01/2022 at 14:28 Normal [facility] Coding Summary.on 03-11-2022 Coding Summary. Normal [facility] ED Traumaon 03-09-2022 ED Trauma [id number]#1. 00CD:127 Normal [facility] Consent for Procedure/Surger yon 03-08-2022 Consent for Procedure/Surgery [id number]#1. 00CD:127 Normal [facility] Consent for Treatmenton 02-18 Consent for Treatment [id number] 0CD:127 Normal [facility] Discharge Instructionson Discharge Instructions [id number]#1. 00CD:127 Normal [facility] ED Clinical Summaryon 2021 ED Clinical Summary Normal [facility] ED Note-Physicianon 03-08-20 ED Note-Physician Normal [facility] Comment on above: Result Comment: Elec tronically Signed By: Wm Nagy DO.br\Date and Time Signed: 03/08/22 21:11 EST ED Patient Education Noteon 03-08-2022 ED Patient Education Note Normal [facility] ED Patient Summaryon 022 ED Patient Summary Normal [facility] EMS Documentationon 03-08-20 EMS Documentation Normal [facility] EMS Documentation Normal [facility] Monitor Recordon 03-08-2022 Monitor Record [id number]#1. 00CD:127 Normal [facility] Monitor Record [id number]#1. 00CD:127 Normal [facility] Pre-Arrival Noteon Pre-Arrival Note Normal [facility] Respiratory Therapy Noteson 03-08-2022 Respiratory Therapy Notes conscious sedation on Eaton, Leelee. Used co2 monitor and one liter of 02. patient maintained 38 co2 and 99 O2. Last approx 40 min. Normal [facility] XR Hip 2-3 Views Left + Pelv yasir 03-08-2022 XR Hip 2-3 Views Left + Pelvis Normal [facility] XR Hip 2-3 Views Left + Pelvis Normal [facility] BLEEDING TIMEon 03-06-2022 BLEEDING TIME 10.5 min Critically high 1.0-8.0 [facility] [place] [facility] Comment on above: Performed By: #### B LTM #### [facility] [address] [place] [address] Dr. Salvador Yung CBC AUTO DIFFon 03-06-2022 BASO # 0.1 103/ul Normal 0.0-0.1 [facility] Comment on above: Performed By: #### C BC #### [facility] [address] [address] [address] Salvador Yung Basophils/100 WBC (Bld) 0.7 % Normal 0.2-2.0 [facility] Comment on above: Performed By: #### C BC #### [facility] [address] [address] [address] Salvador Yung EO # 0.1 103/ul Normal 0.0-0.7 [facility] Comment on above: Performed By: #### C BC #### [facility] [address] [address] [address] Salvador Yung Eosinophils/100 WBC (Bld) 0.7 % Critically low 0.9-7.0 [facility] Comment on above: Performed By: #### C BC #### [facility] [address] [place] [address] Dr. Salvador Yung Erythrocyte distribution width (RBC) [Ratio] 12.9 % Normal 11.0-15.0 [facility] Comment on above: Performed By: #### C BC #### [facility] [address] [place] [address] Dr. Salvador Yung Hematocrit (Bld) [Volume fraction] 41.3 % Normal 36.0-48.0 [facility] Comment on above: Performed By: #### C BC #### [facility] [address] [place] [address] Dr. Salvador Yung Hemoglobin (Bld) [Mass/Vol] 13.7 g/dL Normal 12.0-16.0 [facility] Comment on above: Performed By: #### C BC #### [facility] [address] [place] [address] Dr. Salvador Yung IG # 0.05 10e3/ul Critically high 0.00-0.03 [facility] Comment on above: Performed By: #### C BC #### [facility] [address] [place] [address] Dr. Salvador Yung IG % 0.7 % Critically high 0.0-0.5 [facility] Comment on above: Performed By: #### C BC #### [facility] [address] [place] [address] Dr. Salvador Yung LYMPH # 1.4 103/ul Normal 1.2-3.8 [facility] Comment on above: Performed By: #### C BC #### [facility] [address] [place] [address] Dr. Salvador Yung Lymphocytes/100 WBC (Bld) 18.9 % Critically low 20.5-60.0 [facility] Comment on above: Performed By: #### C BC #### [facility] [address] [place] [address] Dr. Salvador Yung MANUAL DIFF REQ NO Normal [facility] Comment on above: Performed By: #### C BC #### [facility] [address] [place] [address] Dr. Salvador Yung MCH (RBC) [Entitic mass] 30.3 pg Normal 26.7-34.0 [facility] Comment on above: Performed By: #### C BC #### [facility] [address] [place] [address] Dr. Salvador Yung MCHC (RBC) [Mass/Vol] 33.2 g/dL Normal 29.9-35.2 [facility] Comment on above: Performed By: #### C BC #### [facility] [address] [place] [address] Dr. Salvador Yung MCV (RBC) [Entitic vol] 91.4 fL Normal 81.0-99.0 [facility] Comment on above: Performed By: #### C BC #### [facility] [address] [place] [address] Dr. Salvador Yung MONO # 0.7 103/ul Normal 0.3-0.8 [facility] Comment on above: Performed By: #### C BC #### [facility] [address] [place] [address] Dr. Salvador Yung Monocytes/100 WBC (Bld) 9.9 % Normal 1.7-12.0 [facility] Comment on above: Performed By: #### C BC #### [facility] [address] [address] [address] Salvador Yung NEUT # 5.2 103/ul Normal 1.4-6.5 [facility] Comment on above: Performed By: #### C BC #### [facility] [address] [address] [address] Salvador Yung Neutrophils/100 WBC (Bld) 69.1 % Normal 43.0-75.0 [facility] Comment on above: Performed By: #### C BC #### [facility] [address] [place] [address] Dr. Salvador Yung Platelet mean volume (Bld) [Entitic vol] 7.9 fL Critically low 9.5-13.5 [facility] Comment on above: Performed By: #### C BC #### [facility] [address] [place] [address] Dr. Salvador Yung PLT 223 103/ul Normal 150-450 [facility] Comment on above: Performed By: #### C BC #### [facility] [address] [place] [address] Dr. Salvador Yung RBC 4.52 106/ul Normal 4.20-5.40 [facility] Comment on above: Performed By: #### C BC #### [facility] [address] [place] [address] Dr. Salvador Yung WBC 7.5 103/ul Normal 4.0-11.0 [facility] Comment on above: Performed By: #### C BC #### [facility] [address] [place] [address] Dr. Salvador Yung IRONon 03-06-2022 Iron [Mass/Vol] 83.0 ug/dL Normal 50.0-170.0 [facility] Comment on above: Performed By: #### I ESTEFANY #### [facility] [address] [place] [address] Dr. Salvador Yung PROTIMEon 03-06-2022 INR Coag (PPP) [Relative time] 0.95 {INR} Normal [facility] Comment on above: Performed By: #### P TT, PT #### [facility] [address] [address] [address] Salvador Yung INR GUIDELINES SEE BELOW Normal [facility] Comment on above: Result Comment: YOJANA RED INR: 2.0 - 3.0 CONDITIONS NOT LISTED BELOW 2.5 - 3.5 FOR PROSTHETIC HEART VALVE REPLACEMENT 2.5 - 3.5 RECURRENT THROMBOSIS Performed By: #### P TT, PT #### [facility] [address] [address] [address] Salvador Yung PT Coag (PPP) [Time] 10.3 s Normal 9.0-11.6 [facility] Comment on above: Performed By: #### P TT, PT #### [facility] [address] [address] [address] Salvador Yung PTTon 03-06-2022 aPTT Coag (Bld) [Time] 22.1 s Critically low 22.3-36.2 [facility] Comment on above: Performed By: #### P TT, PT #### [facility] [address] [address] [address] Salvador Yung SCREENING MAMMOGRAM W/DANIEL, BILATERAL*on [...] IS VERY IMPORTANT TO YOUR HEALTH. CURRENT [employer] GUIDELINES RECOMMENDS ANNUAL MAMMOGRAPHY BEGINNING AT AGE 41. THIS FACILITY USUALLY USES A REMINDER SYSTEM TO ENSURE ALL POSITIONS RECEIVED REMINDER NOTIFICATIONS AT THE TIME BASED ON THE RECOMMENDATIONS OF THIS EXAM. Report reported and signed by Julio Martines on 02/28/2022 1602 Normal [facility] Specialist Covid-19 PCR (CVDTBH)on 12-19 SARS-CoV-2 (COVID-19) RNA VIVIANA+probe Ql (Unsp spec) Not detected Normal NOT DETECTED [facility] Comment on above: Result Comment: This test is not yet approved or cleared by the [place] FDA. When there are no FDA-approved or cleared tests available, and other criteria are met, FDA can make tests available under an emergency access mechanism called an Emergency Use Authorization (EUA). The EUA for this test is supported by the Recruitment Assistant of Health and Human Service's (HHS's) declaration [...] Performed By: #### P OCGLUC #### [facility] [address] [place] [address] Dr. Salvador Yung MRI [facility] CONon 12-10- 22 MRI [facility] CON HISTORY: Chronic low back pain with left leg pain. Prior low back surgery. Lumbar disc disease. MRI [facility] CON: 12/09/2021 10:11 AM EDT COMPARISON: [...] LAUREN Date: 2021-12-10 12:11 Normal [facility] COVID-19 Positive/Negativeon 05-04-2020 COVID-19 Positive/Negative Negative Negative [facility] Comment on above: Testing for SARS-CoV -2 by RT-PCRThis test was developed and its performance characteristics determined by [employer] and validated at the [facility]. This test has not been FDA [...] Otheron 05-04-2020 Coronavirus 2019 PCR Interp N/A [facility] Automated basophil %on 04-24 Basophils/100 WBC (Bld) 0.6 % [facility] Automated basophil counton 0 04-24-2020 Basophils (Bld) [#/Vol] 0.0 10*3/uL 0.0-0.2 [facility] Automated blood lymphocyte c ount (number/volume)on 04-24-2020 Lymphocytes (Bld) [#/Vol] 1.0 10*3/uL 1.00-4.8 [facility] Automated blood lymphocyte c ount as percentage of total leukocyteson 04-24-2020 Lymphocytes/100 WBC (Bld) 17.0 % [facility] Automated blood monocyte cou nton 04-24-2020 Monocytes (Bld) [#/Vol] 0.3 10*3/uL 0.0-0.8 [facility] Automated blood platelet cou nt (count/volume)on 04-24-2020 Platelets (Bld) [#/Vol] 224 10*3/uL 150-450 [facility] Automated blood platelet vikki n volume measurementon 04-24-2020 Platelet mean volume (Bld) [Entitic vol] 7.2 fL 6.3-10.7 [facility] Automated eosinophil %on Eosinophils/100 WBC (Bld) 3.5 % [facility] Automated eosinophil counton 04-24-2020 Eosinophils (Bld) [#/Vol] 0.2 10*3/uL 0.0-0.45 [facility] Automated erythrocyte distri bution width ratioon 04-24-2020 Erythrocyte distribution width (RBC) [Ratio] 13.0 % 11.9-15.3 [facility] Automated erythrocyte mean c orpuscular hemoglobin (mass per erythrocyte)on 04-24-2020 MCH (RBC) [Entitic mass] 27.7 pg 24.7-34.3 [facility] Automated erythrocyte mean c orpuscular hemoglobin concentration measurement (mass/volon 04-24-2020 MCHC (RBC) [Mass/Vol] 33.2 g/dL 32.0-35.0 [facility] Automated erythrocyte mean c orpuscular volumeon 04-24-2020 MCV (RBC) [Entitic vol] 83.3 fL 80-100 [facility] Automated erythrocytes count in urine sediment (number/area)on 04-24-2020 RBC Auto (Urine sed) [#/Area] None seen [HPF] [facility] Automated leukocytes count i n urine sediment (number/area)on 04-24-2020 WBC Auto (Urine sed) [#/Area] 0-1 [HPF] [facility] Automated monocyte %on 04-24 Monocytes/100 WBC (Bld) 6.1 % [facility] Automated neutrophil %on Neutrophils/100 WBC (Bld) 72.8 % [facility] Automated urine color determ inationon 04-24-2020 Color (U) Yellow Yellow [facility] Blood erythrocytes automated count (number/volume)on 04-24-2020 RBC (Bld) [#/Vol] 4.50 10*6/uL 3.60-5.00 [facility] Blood hemoglobin measurement (mass/volume)on 04-24-2020 Hemoglobin (Bld) [Mass/Vol] 12.5 g/dL 11.8-15.4 [facility] Blood leukocytes automated c ount (number/volume)on 04-24-2020 WBC (Bld) [#/Vol] 5.7 10*3/uL 3.8-11.6 [facility] Blood neutrophil count by au tomated method (number/volume)on 04-24-2020 Neutrophils (Bld) [#/Vol] 4.2 10*3/uL 1.8-7.7 [facility] Estimated glomerular filtrat ion rate (GFR) non- Americanon 04-24-2020 GFR/1.73 sq M predicted among non-blacks MDRD (S/P/Bld) [Vol rate/Area] mL/min/{1.73_m2} [facility] Hematocrit [Volume Fraction] of Blood by Automated counton 04-24-2020 Hematocrit (Bld) [Volume fraction] 37.5 % 34.0-46.4 [facility] Otheron 04-24-2020 GFR/1.73 sq M.predicted MDRD (S/P/Bld) [Vol rate/Area] mL/min/{1.73_m2} [facility] Comment on above: GFR estimated refere nce range: According to KDOQI guidelines, <60 ml/min/1.73m2 is sufficient to diagnose a patient with chronic kidney disease. Nucleated RBC/100 WBC (Bld) [Ratio] 0.1 % 0-0.5 [facility] Creatinine Clearance (Chem N/A [facility] Serum or plasma calcium kelly urement (mass/volume)on 04-24-2020 Calcium [Mass/Vol] 9.3 mg/dL 8.2-10.2 [facility] Serum or plasma chloride vikki surement (moles/volume)on 04-24-2020 Chloride [Moles/Vol] 101 mmol/L 95-114 [facility] Serum or plasma creatinine m easurement with calculation of estimated glomerular filtron 04-24-2020 Creatinine [Mass/Vol] 0.88 mg/dL 0.44-1.03 [facility] Serum or plasma glucose kelly urement (mass/volume)on 04-24-2020 Glucose [Mass/Vol] 116 mg/dL 70-100 [facility] Comment on above: ADA recommended refe rence rangeRandom Glucose Reference Range is dependent on time and content of last meal. Glucose of more than 200 mg/dL in a nonstressed, ambulatory subject supports the diagnosis of Diabetes Mellitus. Serum or plasma potassium me asurement (moles/volume)on 04-24-2020 Potassium [Moles/Vol] 3.8 mmol/L 3.5-5.1 [facility] Serum or plasma sodium measu rement (moles/volume)on 04-24-2020 Sodium [Moles/Vol] 136 mmol/L 136-146 [facility] Serum or plasma total carbon dioxide measurement (moles/volume)on 04-24-2020 CO2 [Moles/Vol] 23.1 mmol/L 22.0-30.0 [facility] Serum or plasma urea nitroge n measurement (mass/volume)on 04-24-2020 Urea nitrogen [Mass/Vol] 10 mg/dL 9-23 [facility] Specific gravity of Urine by Automated test stripon 04-24-2020 Specific gravity (U) [Rel density] 1.007 1.001-1.030 [facility] Squamous epithelial cells de tection in urine sediment by light microscopyon 04-24-2020 Epithelial cells.squamous LM Ql (Urine sed) None seen [HPF] [facility] Urinalysison 04-24-2020 Hyaline casts LM Ql (Urine sed) None seen [LPF] [facility] Urine bacteria detection by automated methodon 04-24-2020 Bacteria Auto Ql (U) None seen None Seen [facility] Urine clarity by refractomet ry automatedon 04-24-2020 Clarity Refractometry automated (U) Clear Clear [facility] Urine glucose measurement by automated test strip (mass/volume)on 04-24-2020 Glucose Auto test strip (U) [Mass/Vol] Normal mg/dL Normal [facility] Urine hemoglobin detection b y automated test stripon 04-24-2020 Hemoglobin Auto test strip Ql (U) Negative Negative [facility] Urine ketones measurement by automated test strip (mass/volume)on 04-24-2020 Ketones (U) [Mass/Vol] Negative Negative [facility] Urine leukocyte esterase det ection by automated test stripon 04-24-2020 Leukocyte esterase Auto test strip Ql (U) 1+ Negative [facility] Urine nitrite detection by t est stripon 04-24-2020 Nitrite Ql (U) Negative Negative [facility] Urine pH measurement by auto mated test stripon 04-24-2020 pH (U) 5.5 [pH] 5.0-9.0 [facility] Urine protein measurement by automated test strip (mass/volume)on 04-24-2020 Protein (U) [Mass/Vol] Negative Negative [facility] Urine total bilirubin detect ion by test stripon 04-24-2020 Bilirubin Ql (U) Negative Negative [facility] Urine urobilinogen measureme nt by automated test strip (mass/volume)on 04-24-2020 Urobilinogen (U) [Mass/Vol] Normal mg/dL Normal [facility] CT L-SPINE WO CONTRASTon CT L-SPINE WO CONTRAST Patient Name: LEELEE CEDILLO STUDY: CT L-SPINE WO CONTRAST;; 10/13/2018 12:05 pm INDICATION: Low back pain LUMBAGO. COMPARISON: None. ACCESSION NUMBER(S): [id number] ORDERING CLINICIAN: HAMLTE GILMAN TECHNIQUE: Axial sections of the lumbar [...] combination with facet joint arthropathy noted causing [id number]-lb-gcctrndl left neural foramina narrowing. Transpedicular screws of [...] left lateral recess, left neural foramina and ktwk-pl-svtvparz right neural foramina narrowing. IMPRESSION: Postoperative and [...] Electronically signed by: PATRICIA MURRAY MD Normal [facility] SPINE, ENTIRE THORACIC/LUMBA R, INCLUDE [...] pm INDICATION: LUMBAGO. COMPARISON: None ACCESSION NUMBER(S): [id number]; [id number] ORDERING CLINICIAN: HAMLET GILMAN FINDINGS: Long radiograph [...] Electronically signed by: ADELE BA MD Normal [facility] SPINE, LUMBOSACRAL; CMPLT(BE NDING)on 10-13-2018 SPINE, LUMBOSACRAL; CMPLT(BENDING) Patient Name: LEELEE CEDILLO STUDY: SPINE, ENTIRE THORACIC/LUMBAR, INCLUDE SKULL, CERVICAL ANSD SACRAL SPINE WHEN PERFORMED 2 OR 3 VIEW; SPINE, LUMBOSACRAL CMPLT(BENDING); 10/13/2018 12:05 pm INDICATION: LUMBAGO. COMPARISON: None ACCESSION NUMBER(S): [id number]; [id number] ORDERING CLINICIAN: HAMLET GILMAN FINDINGS: Long radiograph [...] acuity. Electronically signed by: ADELE BA MD [facility] Vital Signs Date Time Vital Sign Value Performing Clinician Facility 08-07-2023 11:44-0400 Diastolic blood pressure 86 mm[Hg] MD Sara Vick Work Phone: [facility] 08-07-2023 11:44-0400 Heart rate 67 /min MD Sara Vick Work Phone: [facility] 08-07-2023 11:44-0400 SaO2% (BldA) [Mass fraction] 99 % MD Sara Vick Work Phone: [facility] 08-07-2023 11:44-0400 Systolic blood pressure 132 mm[Hg] MD Sara Vick Work Phone: [facility] 07-01-2023 10:26-0400 Body height 172.72 cm MD Sara Vick Work Phone: [facility] 07-01-2023 10:26-0400 Body mass index (BMI) [Ratio] 29.5 kg/m2 MD Sara Vick Work Phone: [facility] 07-01-2023 [id number] Body temperature 97.2 [degF] MD Sara Vick Work Phone: [facility] 07-01-2023 10:26-040 Body weight 87.99 kg MD Sara Vick Work Phone: [facility] 07-01-2023 10:26-0400 Diastolic blood pressure 78 mm[Hg] MD Sara Vick Work Phone: [facility] 07-01-2023 10:26-0400 Heart rate 78 /min MD Sara Vick Work Phone: [facility] 07-01-2023 10:26-0400 SaO2% (BldA) [Mass fraction] 98 % MD Sara Vick Work Phone: [facility] 07-01-2023 10:26-0400 Systolic blood pressure 120 mm[Hg] MD Sara Vick Work Phone: [facility] 06-30-2023 14:39-0400 Diastolic blood pressure 70 mm[Hg] MD Sara Vick Work Phone: [facility] 06-30-2023 14:39-0400 Heart rate 75 /min MD Sara Vick Work Phone: [facility] 06-30-2023 14:39-0400 SaO2% (BldA) [Mass fraction] 99 % MD Sara Vick Work Phone: [facility] 06-30-2023 14:39-0400 Systolic blood pressure 110 mm[Hg] MD Sara Vick Work Phone: [facility] 06-24-2023 13:13-0500 Body height 172.7 cm Ghanshyam Lombardi MD Work Phone: [facility] 06-24-2023 13:13-0500 Body weight 87.4 kg Ghanshyam Lombardi MD Work Phone: [facility] 06-24-2023 13:13-0500 Diastolic blood pressure 56 mm[Hg] Ghanshyam Lombardi MD Work Phone: [facility] 06-24-2023 13:13-0500 Heart rate 93 /min Ghanshyam Lombardi MD Work Phone: [facility] 06-24-2023 13:13-0500 Respiratory rate 18 /min Ghanshyam Lombardi MD Work Phone: [facility] 06-24-2023 13:13-0500 SaO2% (BldA) [Mass fraction] 97 % Ghanshyam Lombardi MD Work Phone: [facility] 06-24-2023 13:13-0500 Systolic blood pressure 115 mm[Hg] Ghanshyam Lombardi MD Work Phone: [facility] 05-15-2023 09:00-0500 Body weight 90.18 kg Larry Brown Other [facility] [employer] Other 05-15-2023 09:00-0500 Body weight 90.17 kg MD Sara Vick Work Phone: [facility] 05-15-2023 09:00-0500 Diastolic blood pressure 86 mm[Hg] Larry Brown Other [facility] 05-15-2023 09:00-0500 SaO2% (BldA) [Mass fraction] 99 % Larryrandy Brown Other [facility] Other 05-15-2023 09:00-0500 Systolic blood pressure 148 mm[Hg] Larry Brown Other [facility] 05-13-2023 11:15-0500 Body height 175.26 cm Kiran Kessler Other [facility] 05-13-2023 11:15-0500 Body mass index (BMI) [Ratio] 29.24 kg/m2 Kiran Kessler Other [facility] Other 05-13-2023 11:15-0500 Body temperature 96.9 [degF] Kiran Kessler Other [facility] Other 05-13-2023 11:15-0500 Body weight 89.81 kg Kiran Kessler Other [facility] 05-13-2023 11:15-0500 Diastolic blood pressure 80 mm[Hg] Kiran Kessler Other [facility] 05-13-2023 11:15-0500 SaO2% (BldA) [Mass fraction] 99 % Kiran Kessler Other [facility] Other 05-13-2023 11:15-0500 Systolic blood pressure 140 mm[Hg] Kiran Kessler Other [facility] 04-03-2023 10:15-0500 Body height 175.26 cm Larry Stephanie Other [facility] Other 04-03-2023 10:15-0500 Diastolic blood pressure 74 mm[Hg] Larryrandy Brown Other [facility] Other 04-03-2023 10:15-0500 SaO2% (BldA) [Mass fraction] 99 % Larry Stephanie Other [facility] Other 04-03-2023 10:15-0500 Systolic blood pressure 118 mm[Hg] Larryrandy Brown Other [facility] Other 03-25-2023 11:05-0500 Diastolic blood pressure 75 mm[Hg] MD Sara Vick Work Phone: [facility] 03-25-2023 11:05-0500 Heart rate 72 /min MD Sara Vick Work Phone: [facility] 03-25-2023 11:05-0500 Respiratory rate 18 /min MD Sara Vick Work Phone: [facility] 03-25-2023 11:05-0500 SaO2% (BldA) [Mass fraction] 97 % MD Sara Vick Work Phone: [facility] 03-25-2023 11:05-0500 Systolic blood pressure 146 mm[Hg] MD Sara Vick Work Phone: [facility] 03-25-2023 10:27-0500 Inhaled oxygen flow rate 3 L/min MD Sara Vick Work Phone: [facility] 03-25-2023 10:14-0500 Body height 173.99 cm MD Sara Vick Work Phone: [facility] 03-25-2023 10:14-0500 Body weight 88.45 kg MD Sara Vick Work Phone: [facility] 01-27-2023 14:30-0400 Body height 175.26 cm Dominique Shane Other [facility] Other 01-27-2023 14:30-0400 Diastolic blood pressure 70 mm[Hg] Dominique Shane Other [facility] Other 01-27-2023 14:30-0400 SaO2% (BldA) [Mass fraction] 98 % Dominique Shane Other [facility] Other 01-27-2023 14:30-0400 Systolic blood pressure 118 mm[Hg] Dominique Shane Other [facility] Other 01-09-2023 10:15-0400 Body height 175.26 cm Larry Brown Other [facility] Other 01-09-2023 10:15-0400 Body mass index (BMI) [Ratio] 29.56 kg/m2 Larry Brown Other [facility] Other 01-09-2023 10:15-0400 Body weight 90.81 kg Larry Brown Other [facility] Other 01-09-2023 10:15-0400 Diastolic blood pressure 78 mm[Hg] Larry Brown Other [facility] Other 01-09-2023 10:15-0400 SaO2% (BldA) [Mass fraction] 98 % Larry Brown Other [facility] Other 01-09-2023 10:15-0400 Systolic blood pressure 130 mm[Hg] Larry Brown Other [facility] Other 12-12-2022 09:30-0400 Body height 175.26 cm Larry Brown Other [facility] Other 12-12-2022 09:30-0400 Body mass index (BMI) [Ratio] 29.77 kg/m2 Larry Brown Other [facility] Other 12-12-2022 09:30-0400 Body weight 91.45 kg Larry Brown Other [facility] Other 12-12-2022 09:30-0400 Diastolic blood pressure 74 mm[Hg] Larry Brown Other [facility] Other 12-12-2022 09:30-0400 SaO2% (BldA) [Mass fraction] 99 % Larry Brown Other [facility] Other 12-12-2022 09:30-0400 Systolic blood pressure 122 mm[Hg] Larry Brown Other [facility] Other 09-19-2022 12:00-0400 Body height 175.26 cm Larry Brown Other [facility] Other 09-19-2022 12:00-0400 Body mass index (BMI) [Ratio] 30.8 kg/m2 Larry Brown Other [facility] Other 09-19-2022 12:00-0400 Body weight 94.62 kg Larry Brown Other [facility] Other 09-19-2022 12:00-0400 SaO2% (BldA) [Mass fraction] 95 % Larry Brown Other [facility] Other 09-18-2022 10:40-0400 Body height 172.7 cm Perfecto Burch MD Work Phone: [facility] [employer] [facility] 09-18-2022 10:40-0400 Body mass index (BMI) [Ratio] 31.26 kg/m2 Perfecto Burch MD Work Phone: [facility] [employer] [facility] 09-18-2022 10:40-0400 Body temperature 96.4 [degF] Perfecto Burch MD Work Phone: [facility] [employer] [facility] 09-18-2022 10:40-0400 Body weight 93.26 kg Perfecto Burch MD Work Phone: [facility] 07-27-2022 15:38-0400 Hourly Rounding Francisco Ottoniel [facility] 07-27-2022 15:38-0400 Promise to Return Francisco Ottoniel [facility] 07-27-2022 14:38-0400 Hourly Rounding Francisco Ottoniel [facility] 07-27-2022 14:38-0400 Promise to Return Francisco Ottoniel [facility] 07-27-2022 13:38-0400 Hourly Rounding Francisco Ottoniel [facility] 07-27-2022 13:38-0400 Promise to Return Francisco Ottoniel [facility] 07-27-2022 12:08-0400 Heart rate 106 /min Francisco Ottoniel [facility] 07-27-2022 12:08-0400 SaO2% (BldA) [Mass fraction] 100 % Francisco Ottoniel [facility] 07-27-2022 12:07-0400 Diastolic blood pressure 79 mm[Hg] Francisco Ottoniel [facility] 07-27-2022 12:07-0400 Mean blood pressure 103 mm[Hg] Francisco Ottoniel [facility] 07-27-2022 12:07-0400 Systolic blood pressure 151 mm[Hg] Francisco Ottoniel [facility] 07-27-2022 12:06-0400 Body temperature 97.16 [degF] Francisco Ottoniel [facility] 07-27-2022 07:46-0400 Heart rate 82 /min Francisco Ottoniel [facility] 07-27-2022 07:46-0400 SaO2% (BldA) [Mass fraction] 97 % Francisco Ottoniel [facility] 07-27-2022 07:46-0400 Diastolic blood pressure 81 mm[Hg] Francisco Ottoniel [facility] 07-27-2022 07:46-0400 Mean blood pressure 116 mm[Hg] Francisco Ottoniel [facility] 07-27-2022 07:46-0400 Systolic blood pressure 186 mm[Hg] Francisco Ottoniel [facility] 07-27-2022 07:45-0400 Body temperature 97.52 [degF] Francisco Ottoniel [facility] 07-27-2022 01:46-0400 Heart rate 89 /min Francisco Ottoniel [facility] 07-27-2022 01:46-0400 SaO2% (BldA) [Mass fraction] 96 % Francisco Ottoniel [facility] 07-27-2022 01:45-0400 Diastolic blood pressure 67 mm[Hg] Francisco Ottoniel [facility] 07-27-2022 01:45-0400 Mean blood pressure 89 mm[Hg] Francisco Ottoniel [facility] 07-27-2022 01:45-0400 Systolic blood pressure 134 mm[Hg] Francisco Ottoniel [facility] 07-27-2022 01:45-0400 Body temperature 98.06 [degF] Francisco Ottoniel [facility] 07-27-2022 01:45-0400 Blood Pressure Location Francisco Ottoniel [facility] 07-27-2022 01:45-0400 Respiratory rate 18 /min Francisco Ottoniel [facility] 07-26-2022 20:00-0400 Respiratory rate 16 /min Francisco Ottoniel [facility] 07-26-2022 17:20-0400 Blood Pressure Location Francisco Ottoniel [facility] 07-26-2022 17:20-0400 Heart rate 78 /min Francisco Ottoniel [facility] 07-26-2022 15:30-0400 Respiratory rate 12 /min Francisco Ottoniel [facility] 07-26-2022 15:00-0400 Mean blood pressure 122 mm[Hg] Francisco Ottoniel [facility] 07-26-2022 15:00-0400 Respiratory rate 8 /min Francisco Ottoniel [facility] 07-26-2022 14:30-0400 Mean blood pressure 112 mm[Hg] Francisco Ottoniel [facility] 07-26-2022 14:30-0400 Respiratory rate 12 /min Francisco Ottoniel [facility] 07-26-2022 13:30-0400 Mean blood pressure 95 mm[Hg] Francisco Ottoniel [facility] 07-26-2022 11:35-0400 gluc 105 mg/dL Francisco Ottoniel [facility] 07-26-2022 11:35-0400 gluc Francisco Ottoniel [facility] 07-26-2022 11:35-0400 Heart rate 72 /min Francisco Ottoniel [facility] 07-26-2022 11:35-0400 Respiratory rate 18 /min Francisco Ottoniel [facility] 05-02-2022 10:00-0500 Body height 175.26 cm Larry Stephanie Other [employer] [facility] Other 05-02-2022 10:00-0500 Body mass index (BMI) [Ratio] 31.89 kg/m2 Larry Brown Other [facility] Other 05-02-2022 10:00-0500 Body weight 97.98 kg Larry Brown Other [facility] Other 05-02-2022 10:00-0500 Diastolic blood pressure 80 mm[Hg] Larry Brown Other [facility] Other 05-02-2022 10:00-0500 Systolic blood pressure 134 mm[Hg] Larry Brown Other [facility] Other 03-08-2022 17:00-0500 Diastolic blood pressure 117 mm[Hg] Wm Yakov [facility] 03-08-2022 17:00-0500 Mean blood pressure 131 mm[Hg] Wm Yakov [facility] 03-08-2022 17:00-0500 SaO2% (BldA) [Mass fraction] 95 % Wm Yakov [facility] 03-08-2022 17:00-0500 Systolic blood pressure 160 mm[Hg] Wm Yakov [facility] 03-08-2022 16:30-0500 Diastolic blood pressure 85 mm[Hg] Wm Yakov [facility] 03-08-2022 16:30-0500 Heart rate 75 /min Wm Yakov [facility] 03-08-2022 16:30-0500 Mean blood pressure 94 mm[Hg] Wm Yakov [facility] 03-08-2022 16:30-0500 Respiratory rate 15 /min Wm Yakov [facility] 03-08-2022 16:30-0500 SaO2% (BldA) [Mass fraction] 98 % Wm Yakov [facility] 03-08-2022 16:30-0500 Systolic blood pressure 112 mm[Hg] Wm Yakov [facility] 03-08-2022 16:10-0500 Diastolic blood pressure 74 mm[Hg] Wm Yakov [facility] 03-08-2022 16:10-0500 Heart rate 93 /min Wm Yakov [facility] 03-08-2022 16:10-0500 Mean blood pressure 90 mm[Hg] Wm Yakov [facility] 03-08-2022 16:10-0500 Respiratory rate 14 /min Wm Yakov [facility] 03-08-2022 16:10-0500 SaO2% (BldA) [Mass fraction] 98 % Wm Yakov [facility] 03-08-2022 16:10-0500 Systolic blood pressure 122 mm[Hg] Wm Yakov [facility] 03-08-2022 15:15-0500 Respiratory rate 18 /min Wm Yakov [facility] 03-08-2022 15:00-0500 Hourly Rounding Wm Yakov [facility] 03-08-2022 15:00-0500 Promise to Return Wm Yakov [facility] 03-08-2022 14:45-0500 Respiratory rate 20 /min Wm Yakov [facility] 03-08-2022 14:15-0500 Respiratory rate 20 /min Wm Yakov [facility] 03-08-2022 14:14-0500 Hourly Rounding Wm Yakov [facility] 03-08-2022 14:14-0500 Promise to Return Wm Yakov [facility] 03-08-2022 13:54-0500 Heart rate 99 /min Wm Nagy [facility] 03-08-2022 13:37-0500 Body temperature 97.7 [degF] Wm Nagy [facility] 03-08-2022 13:37-0500 Heart rate 104 /min Wm Nagy [facility] 03-08-2022 13:00-0500 Hourly Rounding Wm Nagy [facility] 03-08-2022 13:00-0500 Promise to Return Wm Nagy [facility] 03-07-2022 11:00-0500 Body height 175.26 cm Larry Carrilloky Other [facility] Other 03-07-2022 11:00-0500 Body mass index (BMI) [Ratio] 32.54 kg/m2 Larry Stephanie Other [facility] Other 03-07-2022 11:00-0500 Body weight 99.97 kg Larry Carrilloky Other [facility] Other 03-07-2022 11:00-0500 SaO2% (BldA) [Mass fraction] 99 % Larryrandy Brown Other [facility] Other 06-20-2017 09:19-0500 PAIN LEVEL 0 {score} [...] 06-19-2017 18:45-0500 BP Systolic 144 mm[Hg] Praveen Cralsona 06-19-2017 18:45-0500 Pulse (Heart Rate) 91 /min [...] Start: 10-30-2023 End: 10-30-2023 ambulatory SARA VICK Facility:[facility] Start: 08-08-2023 End: 08-08-2023 ambulatory GHANSHYAM LOMBARDI Facility:[facility] Start: 08-08-2023 End: 08-08-2023 Subsequent hospital visit by physician Mri 6 [facility] Main Q (I-Stat/1.5t/3t) Work Phone: MRI Q Comment on above: 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, 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] Start: 08-07-2023 End: 08-07-2023 ambulatory MD Sara Vick Work Phone: [facility] Work Phone: Start: 08-07-2023 End: 08-07-2023 Patient encounter procedure MD Sara Vick Work Phone: [facility] [place] Work Phone: Start: 08-05-2023 End: 08-06-2023 ambulatory ANNIE J PRINTY Not Available Start: 07-15-2023 End: 07-15-2023 ambulatory ANNIE PRINTY Not Available Start: 07-13-2023 End: 07-13-2023 ambulatory GHANSHYAMEVELINE LOMBARDI Facility:[facility] Start: 07-13-2023 End: 07-13-2023 Subsequent hospital visit by physician [facility] Work Phone: Radiology Comment on above: Chronic bilateral lo w back pain with bilateral sciatica [M54.42, M54.41, G89.29] Start: 07-01-2023 End: 07-01-2023 Patient encounter procedure MD Sara Vick Work Phone: [facility] Work Phone: Start: 06-30-2023 End: 06-30-2023 Patient encounter procedure MD Sara Vick Work Phone: [facility] Work Phone: Start: 06-29-2023 End: 06-29-2023 ambulatory ANNIE J PRINTY Not Available Start: 06-24-2023 End: 06-24-2023 Patient encounter procedure Ghanshyam Lombardi MD Work Phone: [facility] Comment on above: 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); Chronic bilateral low back pain with bilateral sciatica Start: 06-24-2023 End: 06-24-2023 ambulatory GHANSHYAM LOMBARDI Facility:[facility] Start: 06-24-2023 End: 06-24-2023 Subsequent hospital visit by physician [facility] Comment on above: 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] Start: 05-22-2023 End: 05-22-2023 ambulatory Sara Vick Facility:[facility] Start: 05-22-2023 End: 05-22-2023 ambulatory MD Sara Vick Work Phone: [facility] Work Phone: Start: 05-22-2023 End: 05-22-2023 Patient encounter procedure MD Sara Vick Work Phone: [facility]-Ultrasound [place] Work Phone: Start: 05-20-2023 End: 05-20-2023 ambulatory Sara Vick Facility:[facility] Start: 05-20-2023 End: 05-20-2023 Discharged Recurring MD Sara Vick Work Phone: [facility]-[employer] Start: 05-20-2023 Registered Recurring MD Gideon Vick Work Phone: [facility]-[employer] [address] Start: 05-18-2023 Patient encounter procedure MD Sara Vick Work Phone: [facility] Start: 05-15-2023 End: 05-15-2023 ambulatory Larry Brown Other [facility] Other Start: 05-15-2023 Office outpatient vi sit 25 minutes Larry Brown [facility] [place] Start: 05-15-2023 End: 05-15-2023 Patient encounter procedure MD Sara Vick Work Phone: [facility] Start: 05-13-2023 End: 05-13-2023 ambulatory Kiran Kessler Other [facility] Other Start: 05-13-2023 Office outpatient ne w 60 minutes Kiran Kessler [facility] Start: 05-13-2023 End: 05-13-2023 Patient encounter procedure MD Sara Vick Work Phone: [facility] Start: 04-16-2023 End: 04-16-2023 ambulatory Dominique Shane Other [facility] Other Start: 04-16-2023 Telephone encounter Dominique Shane [facility] Start: 04-03-2023 End: 04-03-2023 ambulatory Larry Brown Other [facility] Other Start: 04-03-2023 Office outpatient vi sit 15 minutes Larry Brown [facility] [place] Start: 04-03-2023 End: 04-03-2023 Patient encounter procedure MD Sara Vick Work Phone: [facility] [place] Work Phone: Start: 03-25-2023 (PROC) PROCEDURE Larry Brown [facility] Start: 03-25-2023 End: 03-25-2023 ambulatory Sara Vikc Facility:[facility] Start: 03-25-2023 End: 03-25-2023 Admission to same day surgery center MD Sara Vick Work Phone: [facility]-Digestive Health Work Phone: Start: 03-25-2023 End: 03-25-2023 ambulatory MD Sara Vick Work Phone: [facility] Work Phone: Start: 03-06-2023 End: 03-06-2023 Patient encounter procedure MD Sara Vick Work Phone: [facility] [place] Work Phone: Start: 02-10-2023 End: 02-10-2023 ambulatory Dominique Shane Other [facility] Other Start: 02-10-2023 Telephone encounter Dominique Shane [facility] Start: 01-27-2023 End: 01-27-2023 ambulatory Dominique Shane Other [facility] Other Start: 01-27-2023 Office outpatient vi sit 25 minutes Dominique Shane [facility] [place] Start: 01-27-2023 Telephone encounter Larry Stephanie [facility] Start: 01-09-2023 End: 01-09-2023 ambulatory Larry Stephanie Other [facility] Other Start: 01-09-2023 Office outpatient vi sit 25 minutes Larry Stephanie [facility] [place] Start: 12-12-2022 End: 12-12-2022 ambulatory Larry Stephanie Other [facility] Other Start: 12-12-2022 Office outpatient vi sit 25 minutes Larry Stephanie [facility] [place] Start: 11-22-2022 End: 11-22-2022 Emergency department patient visit [facility] Facility:[facility] Start: 09-19-2022 End: 09-19-2022 ambulatory Larry Stephanie Other [facility] Other Start: 09-19-2022 Office outpatient vi sit 25 minutes Larry Stephanie [facility] [place] Start: 09-18-2022 ambulatory PERFECTO BURCH [facility] Start: 09-18-2022 End: 09-18-2022 Office outpatient new 30 minutes Perfecto Burch MD Work Phone: [facility] Comment on above: 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, sequela (Primary Dx) Start: 09-18-2022 End: 09-18-2022 Subsequent hospital visit by physician Perfecto Burch MD Work Phone: [facility] Start: 09-17-2022 ambulatory ADELE FLEMING Faci lity:[facility] Start: 09-10-2022 End: 09-10-2022 ambulatory Sara Vick Facility:[facility] Start: 09-09-2022 End: 09-10-2022 ambulatory ADELE FLEMING Facility:[facility] Start: 09-08-2022 End: 09-09-2022 ambulatory Alley Naranjo Facility:[facility] Start: 08-18-2022 End: 08-19-2022 ambulatory ADELE FLEMING Facility:[facility] Start: 08-13-2022 ambulatory PERFECTO BURCH [facility] Start: 08-12-2022 End: 08-13-2022 ambulatory ADELE FLEMING Facility:[facility] Start: 08-08-2022 End: 08-09-[address] ALFRED UMAÑA Facility:[facility] Start: 08-01-2022 End: 08-02-2022 ambulatory ADELE FLEMING Facility:[facility] Start: 07-26-2022 End: 07-27-2022 ambulatory Julio Ferrara Facility:[facility] Start: 07-26-2022 End: 07-27-2022 Observation Franciscoalberto Alcazar [facility] Start: 07-25-2022 Encounter for preprocedural cardiovascular examination ADELE FLEMING [facility] Start: 07-25-2022 Encounter for preprocedural laboratory examination ADELE FLEMING [facility] Start: 07-24-2022 End: 07-25-2022 ambulatory ADELE [...] 06-19-2022 ambulatory MD Sara Vick Work Phone: [facility] Work Phone: Start: 06-19-2022 End: 06-19-2022 Discharged Recurring MD Sara Vick Work Phone: [facility]-Physical Therapy [place] Work Phone: Start: 06-13-2022 End: 06-14-2022 ambulatory [...] 05-02-2022 End: 05-02-2022 ambulatory Larry Brown Other [facility] Other Start: 05-02-2022 Office outpatient vi sit 25 minutes Larry Brown [facility] [place] Start: 05-01-2022 End: 05-02-2022 ambulatory ADELE FLEMING Facility:[facility] Start: 04-22-2022 End: 04-23-2022 ambulatory ADELE FLEMING Facility:[facility] Start: 04-14-2022 End: 04-15-2022 ambulatory DEEPALI JANSEN Facility:[facility] Start: 04-08-2022 (PROC) PROCEDURE Larry Beck [facility] Start: 04-08-2022 End: 04-08-2022 ambulatory Larry Brown Other [facility] Other Start: 03-31-2022 End: 04-01-[address] ALFRED UMAÑA Facility:[facility] Start: 03-08-2022 End: 03-08-2022 Emergency department patient visit Wm Nagy Facility:[facility] Start: 03-08-2022 End: 03-08-2022 Emergency department patient visit Wm Nagy [facility] Start: 03-07-2022 End: 03-07-2022 ambulatory Larry Brown Other [facility] Other Start: 03-07-2022 Office consultation new/estab patient 60 min Larry Brown [facility] [place] Start: 03-06-2022 End: 03-07-[address] SARA VICK . Facility:[facility] Start: 01-03-2022 End: 01-03-[address] SARA VICK . Facility:[facility] Start: 12-09-2021 End: 12-10-2021 ambulatory SHAWANDA LITTLE Facility:[facility] Start: 11-05-2021 End: 11-06-2021 ambulatory ADELE Means [facility] Facility:[facility] Start: 10-07-2021 End: 10-07-2021 ambulatory PO SUAREZ . Facility:[facility] Start: 05-04-2020 End: 05-04-2020 Patient encounter procedure Sara Hoy -Pre-Surgical Testing Start: 05-02-2020 Registered Recurring Sara Vick -P hysical Therapy [facility] Start: 04-24-2020 End: 04-24-2020 Patient encounter procedure Sara Hoy -Pre-Surgical Testing Start: 02-01-2020 End: 02-01-2020 Patient encounter procedure Sara Vick -[facility] Start: 06-29-2018 Patient encounter procedure Sara~[id number] UNKNOWN Hoy Facility: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 Work Phone: Start: 05-22-2023 Pulse volume recorde [...] Nagy Start: 07-03-2010 Decompression of median nerve mW Nagy Start: 07-03-2010 Repair of musculoten dinous [...] for malignant neoplasm of breast Mammogram Screening [facility] Start: 06-23-2024 BP Controlled (<130/80) BP Controlled (<130/80) [facility] Start: 12-20-2023 Influenza vaccination Influenza Vaccine (Season Ended) [facility] Start: 05-22-2023 Pulse volume recorder pneumoplethysmography US arterial pvr rest [facility] Start: 05-22-2023 [facility] Start: 05-22-2023 Duplex scan of lower limb veins US venous duplex LE [facility] Start: 05-22-2023 US Lower extremity vein - bilateral [facility] Start: 04-20-2023 Advance Directive Discussion Advance Directive Discussion [facility] Start: 04-20-2023 Behavioral Health Screening Behavioral Health Screening [facility] Start: 04-20-2023 Depression Assessment Depression Assessment [facility] Start: 03-25-2023 [facility] Start: 02-28-2023 Screening for malignant neoplasm of breast Mammogram Screening [facility] Start: 12-19-2022 Covid-19 Vaccine ( season) Covid-19 Vaccine () [facility] Start: 12-19-2022 Influenza vaccination Influenza Vaccine (#1) [facility] Start: 01-28-2022 COVID-19 VACCINE (5 - Booster for Pfizer series) COVID-19 VACCINE (5 - Booster for Pfizer series) [facility] Start: 08-24-2019 Screening for malignant neoplasm of breast MAMMOGRAM SCREENING DISCUSSION [facility] Start: 12-20-2016 Screening for osteoporosis Bone Density Screening [facility] Start: 06-17-2014 Diabetes Screening Diabetes Screening [facility] Start: 2011 RSV Vaccine (1 - 1-dose 60+ series) RSV Vaccine (1 - 1-dose 60+ series) [facility] Start: 12-20-2001 Shingrix Vaccine (1 of 2) Shingrix Vaccine (1 of 2) [facility] Start: 12-20-2001 Zoster vaccine hzv live for subcutaneous use ZOSTER (SHINGLES) VACCINE (1 of 2) [facility] Start: 12-20-1996 Lipid panel Lipid Screening [facility] Start: 12-20-1996 Screening for malignant neoplasm of colon [facility] Start: 1991 Lipid panel LIPID SCREENING [facility] Start: 12-20-1972 Screening for malignant neoplasm of cervix CERVICAL CANCER SCREENING DISCUSSION [facility] Start: 12-20-1970 Third diphtheria, tetanus and acellular pertussis (DTaP) vaccination TDAP (ADULT) [facility] Start: 12-20-1970 Urine microalbumin profile DTaP,Tdap,Td Vaccine (1 - Tdap) [facility] Start: 12-20-1969 Annual PCP Team Chronic Disease Visit Annual PCP Team Chronic Disease Visit [facility] Start: 1950 Hepatitis C screening HEPATITIS C VIRUS SCREENING [facility] Start: 1950 Screening for osteoporosis DEXA SCAN DISCUSSION [facility] Start: 1950 Tetanus vaccination TETANUS [facility] End: 07-23-2024 CT Lumbar spine WO contrast CT LUMBAR SPINE WO IVCON Radiology Routine Chronic bilateral low back pain with bilateral sciatica 1 Occurrences starting 06/24/2023 until 07/23/2024 [facility] Work Phone: Comment on above: 1 Occurrences starting 06/24/2023 until 07/23/2024 End: 07-23-2024 MR Thoracic spine WO contrast MRI THORACIC SPINE WO IVCON Radiology Routine 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 1 Occurrences starting 06/24/2023 until 07/23/2024 [facility] Work Phone: Comment on above: 1 Occurrences starting 06/24/2023 until 07/23/2024 Patient Education Stephanie Non Diagn ostic Block [facility] Work Phone: Patient referral [facility] Work Phone: XR Knee - left 3 Views XR KNEE L EFT 3 VIEWS Imaging Routine Pain in prosthetic joint, sequela Ordered: 09/16/2022 [facility] Comment on above: Ordered: 09/16/2022 XR Pelvis and Hip - left Views X R HIP WITH PELVIS LEFT Imaging Routine Pain in prosthetic joint, sequela 09/18/2022 10:11 AM EDT [facility] Work Phone: [facility] Immunizations Immunization Date Immunization Notes Care Provider Fa cili 02-11-2022 Influenza, injectabl e, Madin [place] Canine Kidney, preservative free, quadrivalent MD Sara Vick Work Phone: [facility] 02-11-2022 influenza virus vacc ine, unspecified formulation Ghanshyam Lombardi MD Work Phone: [facility] 12-03-2021 COVID-19 Comirnaty (Pfizer) Tri-Sucrose 12+ MD Sara Vick Work Phone: [facility] 03-25-2021 COVID-19 mRNA, Comir nicolle (Pfizer) MD Sara Vick Work Phone: [facility] 07-12-2020 COVID-19, mRNA, LNP- S, PF, 30 mcg/0.3 mL dose Wm Nagy [facility] Comment on above: Reason for Medicatio n: Prophylaxis 06-14-2020 COVID-19, mRNA, LNP- S, PF, 30 mcg/0.3 mL dose Wm Nagy [facility] Comment on above: Reason for Medicatio n: Prophylaxis 02-08-2020 Seasonal trivalent influenza vaccine, adjuvanted, preservative free MD Sara Vick Work Phone: [facility] 02-23-2018 influenza, injectabl e, madin josephine canine kidney, preservative free MD Sara Vick Work Phone: [facility] 02-18-2018 pneumococcal polysaccharide vaccine, 23 valent Wm Nagy [facility] [place] 06-18-2017 tuberculin skin test ; unspecified formulation Praveen Bynum 02-24-2017 pneumococcal polysaccharide vaccine, 23 valent MD Sara Vick Work Phone: [facility] 02-05-2017 influenza, high dose seasonal, preservative-free MD Sara Vick Work Phone: [facility] 02-05-2017 pneumococcal conjuga te vaccine, 13 valent Wm Nagy [facility] [place] 02-02-2016 influenza, seasonal, injectable, preservative free MD Sara Vick Work Phone: [facility] 10-20-2012 pneumococcal polysaccharide vaccine, 23 valent Wm Nagy [facility] Payers Date Payer Category Payer Unknown [id number] 2022 Self-pay [id number] 2022 Unknown [id number] 2022 Private Health Insurance 2018 Medicare [id number] 1959 Private Health Insurance [id number] 1950 Unknown [id number] 2.16.84 0.1.497960.3.579.2.727 1950 Unknown [id number] 2.16.8 40.1.169649.3.579.2.159 1950 Unknown [id number] 2.16.84 0.1.218166.3.579.2.593 1951 Unknown [id number] 2.16.84 0.1.781237.3.579.2.593 1951 Unknown [id number] 2.16.84 0.1.027444.3.579.2.593 1951 Unknown [id number] 2.16.84 0.1.640448.3.579.2.593 1951 Unknown [id number] 2.16.84 0.1.842880.3.579.2.593 1951 Unknown [id number] 2.16.84 0.1.531421.3.579.2.593 1951 Unknown [id number] 2.16.84 0.1.053282.3.579.2.593 1951 Unknown [id number] 2.16.84 0.1.098166.3.579.2.593 1951 Unknown [id number] 2.16.84 0.1.812142.3.579.2.593 1951 Unknown [id number] 2.16.84 0.1.120593.3.579.2.593 1951 Unknown [id number] 2.16.84 0.1.660057.3.579.2.593 1951 Unknown [id number] 2.16.84 0.1.468352.3.579.2.593 1951 Unknown [id number] 2.16.84 0.1.773832.3.579.2.593 1951 Unknown [id number] 2.16.84 0.1.342821.3.579.2.593 1951 Unknown [id number] 2.16.84 0.1.946511.3.579.2.593 1951 Unknown [id number] 2.16.84 0.1.902226.3.579.2.593 1951 Unknown [id number] 2.16.84 0.1.267439.3.579.2.593 1951 Unknown [id number] 2.16.84 0.1.960625.3.579.2.593 1951 Unknown [id number] 2.16.84 0.1.729114.3.579.2.593 1951 Unknown [id number] 2.16.84 0.1.296804.3.579.2.593 1951 Unknown [id number] 2.16.84 0.1.914846.3.579.2.593 1951 Unknown [id number] 2.16.84 0.1.795722.3.579.2.593 1951 Unknown [id number] 2.16.84 0.1.327593.3.579.2.593 1951 Unknown [id number] 2.16.84 0.1.524907.3.579.2.593 1951 Unknown [id number] 2.16.84 0.1.268091.3.579.2.593 1951 Unknown [id number] 2.16.84 0.1.892580.3.579.2.593 1951 Unknown [id number] 2.16.84 0.1.458893.3.579.2.593 1951 Unknown [id number] 2.16.84 0.1.951983.3.579.2.593 1951 Unknown [id number] 2.16.84 0.1.772704.3.579.2.593 1951 Unknown [id number] 2.16.8 40.1.212236.3.579.2.983 1951 Unknown [id number] 2.16.8 40.1.239196.3.579.2.983 1951 Unknown [id number] 2.16.8 40.1.825955.3.579.2.983 1951 Unknown [id number] 2.16.8 40.1.431902.3.579.2.727 1951 Unknown [id number] 2.16.8 40.1.660705.3.579.2.727 1951 Unknown [id number] 2.16.8 40.1.616205.3.579.2.727 1951 Unknown [id number] 2.16.8 40.1.846556.3.579.2.727 1951 Unknown [id number] 2.16.84 0.1.843841.3.579.2.1259 1951 Unknown [id number] 2.16.84 0.1.695497.3.579.2.1259 1951 Unknown [id number] 2.16.84 0.1.370929.3.579.2.1259 Unknown Unknown [id number] Unknown [id number] 2.16.8 40.1.717205.3.579.2.531 Unknown [id number] 2.16.8 40.1.577227.3.579.2.531 Unknown [id number] 2.16.8 40.1.007510.3.579.2.531 Unknown [id number] 2.16.8 40.1.749447.3.579.2.531 Social History Date Type Detail Facility Start: 06-18-2017 Unknown if ever smoked [facility] Start: 04-24-2020 End: 06-24-2023 Tobacco smoking status MOIS Never smoked tobacco (finding) [facility] Start: 1950 Sex Assigned At Female F [facility] Start: 06-24-2023 Sex Assigned At F [facility] Start: 09-18-2022 Tobacco use and exposure Smokeless tobacco non-user [facility] Start: 09-18-2022 End: 06-24-2023 Alcohol intake Current drinker of alcohol (finding) [facility] Start: 09-18-2022 Alcohol Comment occasional [facility] Start: 1950 Sex Assigned At Not on file [facility] Start: 06-24-2023 Alcohol intake [facility] National Score (1-100), lower number is lower risk 62 [facility] Medical Equipment Procedure Code Equipment Code Equipment Origin al Text Equipment Identifier Dates Arthroplasty, knee, total, minimally invasive Orthopaedic cement, non-medicated ()[id number] FDA Start: 05-07-2020 Arthroplasty, knee, total, minimally invasive Uncoated knee femur prosthesis, metallic ()[id number] FDA Start: 05-07-2020 Arthroplasty, knee, total, minimally invasive Tibial insert ()[id number] FDA Start: 05-07-2020 Arthroplasty, knee, total, minimally invasive Uncoated knee tibia prosthesis, metallic ()[id number] FDA Start: 05-07-2020 Arthroplasty, knee, total, minimally invasive Polyethylene patella prosthesis ()[id number] FDA Start: 05-07-2020 Goals Date Patient Goal Desired Activity /State Functional Status Date Assessment Result Facility 07-26-2022 Functional Status No [facility] 07-26-2022 Functional Status [facility] 03-08-2022 Functional Status No [facility] Clinical Notes 10-07-2021 to 08-08-2023 Flor Ziegler, [...] PATIENT PRESENTS WITH AN IMPLANTABLE OR ATTACHED CAPACITY MANAGER: No RADIOLOGY DEPARTMENT: MR; Exam(s) Completed: Spine: Thoracic spine PERIPHERAL IV DATA: Not applicable SIGNED BY: BAY Leo) August 08, 2023 3:59 PM documented in this encounter [facility] 08-08-2023 Note HNO ID: [id number] Author: FLOR ZIEGLER RT (R) Service: Radiology [...] PATIENT PRESENTS WITH AN IMPLANTABLE OR ATTACHED CAPACITY MANAGER: No RADIOLOGY DEPARTMENT: MR; Exam(s) Completed: Spine: Thoracic spine PERIPHERAL IV DATA: Not applicable SIGNED BY: RT Felipa(R) August 08, 2023 3:59 PM [facility] 07-13-2023 History of Present illness Narrative [...] PATIENT PRESENTS WITH AN IMPLANTABLE OR ATTACHED CAPACITY MANAGER: No RADIOLOGY DEPARTMENT: CT; Exam(s) Completed: Spine PERIPHERAL IV DATA: Not applicable SIGNED BY: RT Se(Bryce) July 13, 2023 10:44 AM documented in this encounter [facility] 07-13-2023 Note HNO ID: [id number] Author: TORRIE ABRAHAM RT(R) Service: Radiology Author [...] PATIENT PRESENTS WITH AN IMPLANTABLE OR ATTACHED CAPACITY MANAGER: No RADIOLOGY DEPARTMENT: CT; Exam(s) Completed: Spine PERIPHERAL IV DATA: Not applicable SIGNED BY: TorrieRT Courtney(R) July 13, 2023 10:44 AM [facility] 06-24-2023 Note HNO ID: [id number] Author: GHANSHYAM LOMBARDI MD Service: ? Author [...] discussion. 30 minutes spent Ghanshyam Lombardi MD [facility] 06-24-2023 History of Present illness Narrative [...] Ghanshyam Lombardi MD documented in this encounter [facility] 05-15-2023 Evaluation note Encounter Date Diagnosis [...] In the meantime, she can continue taking Austin as needed all as well as Gabapentin [...] and no personal patient information was compromised. [facility] 01-24-2024 Evaluation note* Encounter Date Diagnosis [...] agrees with plan all questions were addressed. [facility] 12-28-2023 Evaluation note* Encounter Date Diagnosis Assessment Notes Treatment Notes Treatment Clinical Notes Mar, Lumbar radiculopathy (ICD-10 - M54.16) 72 year old female evaluated via telephonic call for follow up and medication refill for chronic pain. She voices complaints of low back pain with intermittent radiation down the right lower extremity. She continues taking Austin with relief and is requesting a refill of this today. I discussed different treatment options in detail with the patient. She feels medication is managing her pain and does not wish to proceed with injections at this time. I encouraged the patient to start physical therapy as previously discussed. She can also continue taking medications as prescribed and I will refill her Austin as she feels this provides an element [...] pain (ICD-10 - G89.29) Continue medication management. [facility] 12-15-2023 Evaluation note* Encounter Date Diagnosis [...] pain (ICD-10 - G89.29) Continue medication management. [facility] 10-24-2023 Evaluation note* Encounter Date Diagnosis Assessment Notes Treatment Notes Treatment Clinical Notes Jan, Lumbar radiculopathy (ICD-10 - M54.16) [facility] 10-10-2023 Evaluation note* Encounter Date Diagnosis [...] regarding this. Meanwhile, I will refill her Austin as it does provide an element of [...] educated on the risks and benefits of shelter opioid use. Hydrocodone/Acetamin ophen was refilled today, opioid risk assessment was done as well as pill count. Patient is compliant with opioid medication. The patient denies any opioid related side effects. [facility] 09-22-2023 Evaluation note* Encounter Date Diagnosis [...] educated on the risks and benefits of shelter opioid use. Hydrocodone/Aceta minophen was refilled today, opioid risk assessment was done as well as pill count. Patient is compliant with opioid medication. The patient denies any opioid related side effects. Patients last urine drug screen was positive for alcohol, she is counselled against consuming alcohol. [facility] 08-25-2023 Evaluation note* Encounter Date Diagnosis [...] M51.36) Stable, follow up in 4 weeks. [facility] 06-02-2023 Evaluation note* Encounter Date Diagnosis [...] nerve blocks in the future if needed. [facility] 06-01-2023 History of Present illness Narrative* [...] 09/18/2022 10:58 AM Patient: Leelee Cedillo MR#: [id number] : 1950 Age: 71 y.o. Referring Physician: Sorin Dickerson DO Insurance: Payor: MEDICARE [employer] PPO / Plan: MEDICARE [employer] HMO PPO [...] repair GALL BLADDER SURGERY 1999 BACK SURGERY [id number]- FOOT SURGERY [id number] Family History: Her family history is not [...] [x]cane, []bracing Are you followed by a white goods appliance tech? [] [x] Name: Are you followed by [...] repair GALL BLADDER SURGERY 1999 BACK SURGERY [id number]- FOOT SURGERY [id number] No family history on file. Social History [...] Rash Flagyl [Metronidazole] Dyspepsia [facility] Comment: Electronically Signed By: Rachel SALTER\.br\Date and Time Signed: 07/27/22 15:21 EDT\.br\Electronically Co-Signed By: Ottoniel RUFF, Francisco Beck\.br\Date and Time Co- Signed: 07/27/22 17:04 [id number] Hospital Discharge instructions Patient Education 07/27/2022 15:20:26 [...] Follow these instructions at home: Medicines Take odsb-qmp-qmfyblx and prescription medicines only as told by [...] 04/06/2006 Document Revised: 07/29/2019 Document Reviewed: 02/23/2019 [employer] Patient Education 2020 [employer] 07/27/2022 15:20:26 Vasovagal Syncope, Pediatric Vasovagal [...] ?Squatting. ?Moving his or her legs. Give mdup-fwy-zmcgdxl and prescription medicines only as told by [...] 01/13/2009 Document Revised: 03/19/2018 Document Reviewed: 05/12/2017 [employer] Patient Education 2020 [employer]. Follow Up Care 07/26/2022 11:32:57 With:Sara Vick Address: [address] [place] [phone]- Business (1) When: Unknown Comments:Call for followup appointment 7-10 days With:Julio Ferrara MD, NEU Address: [address] [place] [phone]- When:2 to 4 weeks [facility]04-09-2023 Evaluation + Plan noteExtracted from: [...] With When Contact Information Sara Vick [address] [facility] [place] [address]- Business (1) Additional Instructions: Call for followup appointment 7-10 days Josias RUFF, CARLOS Thacker Within 2 to 4 weeks [address] [place] [address]- Additional Instructions: Near-Syncope Vasovagal Syncope, Pediatric Extracted [...] it is acute or subacute. It might returns clerk to just be some focal white matter [...] specified devices) recent right foot surgery in [facility]/podiatry secondary to non healing food wound. Currently has wound vac intact to this operative site. 6. Osteoarthritis (M19.90: Unspecified osteoarthritis, unspecified site) osteoarthritis status post left hip replacement Has chronic back pain. 7. 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 Diagnostic Tests Pending * HgbA1c 07/27/22 [facility]04-08-2023 NoteBarn[facility]ville HospitalComment on above:Result Comment: Electronically Signed By: [...] if her pain increases in the future. [employer] Other [id number] NotePROCEDURE: XR FOOT RT MIN 3 VIEWS, [...] Electronically authenticated by: JULIO LOBATO Date: 2022-04-23 13:00[facility]01-04-2023 NotePROCEDURE: XR FOOT RT MIN 3 [...] Electronically authenticated by: JULIO LOBATO Date: 2022-04-23 13:00[facility]12-12-2022 NotePROCEDURE: XR ANKLE RT MIN 3 [...] Electronically authenticated by: ALFRED UMAÑA Date: 2022-03-31 18:19[facility]11-19-2022 Hospital Discharge instructions Patient Education 03/08/2022 [...] 04/06/2006 Document Revised: 04/15/2017 Document Reviewed: 03/23/2017 [employer] Patient Education 2020 [employer] 03/08/2022 17:44:27 Hip Dislocation Hip Dislocation [...] Follow these instructions at home: Medicines Take whmw-qow-scbxrng and prescription medicines only as told by your health care provider. Ask your health care provider if the medicine prescribed to you: ?Requires you to avoid driving or using heavy machinery. ?Can cause constipation. You may need to take actions to prevent or treat constipation, such as: ?Drink enough fluid to keep your urine pale yellow. ?Take bszl-sno-wsekkxw or prescription medicines. ?Eat foods that are [...] in the [place] Do not drive yourself [facility]. Summary Hip dislocation happens when the [...] 12/30/2001 Document Revised: 12/29/2018 Document Reviewed: 12/30/2018 [employer] Patient Education 2020 [employer]. Follow Up Care 03/08/2022 13:37:46 With:Sorin DICKERSON Address: [address] [place] [phone] Business (1) When:03/11/2022 17:44:09 Comments:Call to establish follow-up care. Wear brace until follow-up with orthopedic surgery. With:Sara Vick Address: [address] [place] [address] [place] [phone]- Business (1) When:03/11/2022 17:43:29 Comments:Call the office [...] you develop any new or worsening symptoms. [facility]11-19-2022 Evaluation + Plan noteExtracted from: [...] XR Hip 2-3 Views Left + Pelvis [facility]11-18-2022 Evaluation note* Encounter Date Diagnosis [...] negative findings were considered in medical decision-making. [employer] Other [id number] NotePROCEDURE: XR FOOT RT MIN 3 VIEWS [...] Electronically authenticated by: JULIO LOBATO Date: 2021-10-07 11:44[facility] noteNo InformationNort [employer] Other Evaluation noteNo assessment information available [facility] Work Phone: Evaluation note* Diagnosis Pain in prosthetic joint, sequela- Primary [facility] Diagnosis Adjacent segment disease of lumbar spine with history of fusion procedure- Primary Chronic bilateral low back pain with bilateral sciatica [facility] Diagnosis 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) [facility] Diagnosis Chronic bilateral low back pain with bilateral sciatica [facility]* Diagnosis Onset Date Resolution Status Chronic pain acute Lumbar degenerative disc disease acute Lumbar radiculopathy acute Lumbosacral spondylosis acut e Sacroiliitis acute 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 acute Chronic pain acute Lumbar degenerative disc disease acute Lumbar radiculopathy acute Lumbosacral spondylosis acut e Sacroiliitis acute [facility] Work Phone: Evaluation note* Diagnosis 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 documented in this encounter [facility] general Narrative - Reported* Type Description [...] 2 021 Surgical History back surgeries x5 [facility] yuandr gilman 2018 [facility] Other [facility] general Narrative - Reported* Type Description Date [...] 2 021 Surgical History back surgeries x5 [facility] yuandr gilman 2019 Hospitalization History see above [facility] Other [facility] general Narrative - Reported* Type Description Date [...] 2 021 Surgical History back surgeries x5 [facility][note 3] carisa-dr gilman 2018 Surgical History lazer surgery on her lt leg veins and she also had sclero tx on b/l legs 2022 Hospitalization History see above [facility] Other Hospital course Narrative No data available for this section [facility] No data available for this section [facility] CenterReason for referral (narrative)* Diagnostic Procedure Only (Routine) - Closed Specialty Diagnoses / Procedures Referred By Maximiliano dee Referred To Contact XR IMAGING Diagnoses Fusion of spine of thoracolumbar region Procedures XR SCOLIOSIS PA STAND/LAT 2V RADEX ENTIR THRC LMBR CRV SAC SPI W/SKULL 2/3 VW Ros Cedeño APRN.ASSOCIATE DRAFTER [address] [place] [address] Xr Imaging [place] [address] Referral ID Status Reason Start Date Expiration Date V isits Requested Visits Authorized [id number] Closed Auto-Generate d Referral 02/25/2023 03/26/2024 1 1 * Diagnostic Procedure Only (Routine) - Closed Specialty Diagnoses / Procedures Referred By Maximiliano dee Referred To Contact XR IMAGING Diagnoses Fusion of spine of thoracolumbar region Procedures XR LUMBAR MOTION 4V AP/LAT/ FLEX/EXT RADEX SPINE LUMBOSACRAL MINIMUM 4 VIEWS Ros Cedeño APRN.ASSOCIATE DRAFTER [address] [place] [id number] Xr [facility] [place] [address] Referral ID Status Reason Start Date Expiration Date V isits Requested Visits Authorized [id number] Closed Auto-Generate d Referral 02/25/2023 03/26/2024 1 1 [facility] for referral (narrative)* Diagnostic Procedure Only (Routine) - Closed Specialty Diagnoses / Procedures Referred By Maximiliano t Referred To Contact MR IMAGING Diagnoses 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 Procedures MRI THORACIC SPINE WO IVCON MRI SPINAL CANAL THORACIC W/O CONTRAST MATRL Ghanshyam Lombardi MD [address] [place] [address] Mr Imaging [place] [address] Referral ID Status Reason Start Date Expiration Date V isits Requested Visits Authorized [id number] Closed Auto-Generate d Referral 08/07/2023 09/07/2023 1 1 [facility] for visit Narrative* Diagnostic Procedure Only (Routine) - Closed Specialty Diagnoses / Procedures Referred By Maximiliano t Referred To Contact XR IMAGING Diagnoses Fusion of spine of thoracolumbar region Procedures XR SCOLIOSIS PA STAND/LAT 2V RADEX ENTIR THRC LMBR CRV SAC SPI W/SKULL 2/3 VW Ros Cedeño, LINUX KERNEL DEVELOPER.ASSOCIATE DRAFTER [address] [place] [address] Xr Imaging [place] [address] Referral ID Status Reason Start Date Expiration Date V isits Requested Visits Authorized [id number] Closed Auto-Generate d Referral 02/25/2023 03/26/2024 1 1 [facility] Advance Directives No Advanced Directives Records [...] FOLLOW UP; PVR'S, FF ULTRASOUND DONE AT [facility] FOR CHRONIC PAIN [...] W/O CONTRAST MATERIAL Ghanshyam Lombardi MD [address] [facility] [place] [address] Ct Imaging [id number] Referral ID Status Reason Start Date Expiration Date Visits Requested Visits Authorized [id number] Pending Review Auto-Generat ed Referral 06/24/2023 07/23/2024 1 1 Specialty Diagnoses / Procedures Referred By Contac t Referred To Contact MR IMAGING Diagnoses 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 Procedures MRI THORACIC SPINE WO IVCON MRI SPINAL CANAL THORACIC W/O CONTRAST MATRL Ghanshyam Lombardi MD [address] [place] [phone] Mr Imaging [id number] Referral ID Status Reason Start Date Expiration Date Visits Requested Visits Authorized [id number] Pending Review Auto-Generat ed Referral 06/24/2023 07/23/2024 1 1 Specialty Diagnoses / Procedures Referred By Contac t Referred To Contact Diagnoses Pain in prosthetic joint, sequela Procedures XR HIP WITH PELVIS LEFT Perfetco Burch MD [address] [place] [address] Referral ID Status Reason Start Date Expiration Date V isits Requested Visits Authorized [id number] New Request 09/18/2022 10/13/2023 1 1 Specialty Diagnoses / Procedures Referred By Contac t Referred To Contact Diagnoses Pain in prosthetic joint, sequela Procedures XR KNEE LEFT 3 VIEWS Perfecto Burch MD [address] [place] [address] Referral ID Status Reason Start Date Expiration Date V isits Requested Visits Authorized [id number] New Request 09/16/2022 10/11/2023 1 1 Additional Source Comments INFORMATION SOURCE (unrecogn ized section and content) DATE CREATED AUTHOR 12/13/2017 [facility] DATE CREATED AUTHOR AUTHOR'S ORGANIZ ATION 07/10/2018 [place] Valentin [facility] DATE CREATED AUTHOR AUTHOR'S ORGANIZ ATION 02/25/2019 [facility] Center DATE CREATED AUTHOR AUTHOR'S ORGANIZ ATION 03/01/2022 [facility] Special[facility] DATE CREATED AUTHOR AUTHOR'S ORGANIZ ATION 07/26/2022 [facility] DATE CREATED AUTHOR AUTHOR'S ORGANIZ ATION 09/27/2022 [facility] DATE CREATED AUTHOR AUTHOR'S ORGANIZ ATION 09/27/2022 [facility] DATE CREATED AUTHOR AUTHOR'S ORGANIZ ATION 11/26/2022 [place] Valentin [facility] ical Center DATE CREATED AUTHOR AUTHOR'S ORGANIZ ATION 07/29/2023 [facility] y[facility] DATE CREATED AUTHOR AUTHOR'S ORGANIZ ATION 08/09/2023 [facility] dical Specialists EPIC DATE CREATED AUTHOR AUTHOR'S ORGANIZ ATION 11/05/2023 [facility] REASON FOR VISIT (unrecogniz ed section and content) Specialty Diagnoses / Procedures Referred By Contac t Referred To Contact Diagnoses Pain in prosthetic joint, sequela Procedures XR HIP WITH PELVIS LEFT Perfecto Burch MD [address] [place] [address] Referral ID Status Reason Start Date Expiration Date V isits Requested Visits Authorized [id number] New Request 09/18/2022 10/13/2023 1 1 Reason Comments Pain New Patient Reason Comments New Patient Specialty Diagnoses / Procedures Referred By Contac t Referred To Contact CT IMAGING Diagnoses Chronic bilateral low back pain with bilateral sciatica Procedures CT LUMBAR SPINE WO IVCON CT LUMBAR SPINE W/O CONTRAST MATERIAL Ghanshyam Lombardi MD [address] [place] [address] Ct Imaging [id number] Referral ID Status Reason Start Date Expiration Date V isits Requested Visits Authorized [id number] Closed Auto-Generate d Referral 07/11/2023 08/10/2023 2 [...] A17 300 Ghanshyam Lombardi MD [address] [place] [address] [address] [place] [id number] Referral ID Status Reason Start Date Expiration Date Visits Re quested Visits Authorized [id number] Closed 08/07/2023 09/07/2023 1 1 Patient Care team informatio n (unrecognized section and content) Team Status: Active Member Role Status Dates Sara Vick MD Primary Care Provider Active Team Status: Inactive Member Role Status Dates Sara Vick MD Primary Care Provider, Attending Pr dusty Active Adventure Education Teacher Relationship Specialty Start Date End Date Sara Vick MD [address] [place] [address] PCP - General Family Medicine 04/09/22 Adventure Education Teacher Relationship Specialty Start Date End Date Sara Vick MD [address] [place] [address] PCP - General Family Medicine 04/09/22 Team [...] May 22, 2023 End: May 22, 2023 Adventure Education Teacher Relationship Specialty Start Date End Date Sara Vick MD PCP - General Family Medicine 06/09/11 Adventure Education Teacher Relationship Specialty Start Date End Date Sara Vick MD PCP - General Family Medicine 06/09/11 Adventure Education Teacher Relationship Specialty Start Date End Date Sara [...] or prosecute any alcohol or drug abuse patient.[facility] the event this information is protected by the Federal Confidentiality of Alcohol and Drug Abuse Patient Records regulations: The Federal rules restrict any use of the information to criminally investigate or prosecute any alcohol or drug abuse patient.[facility] the event this information is protected by the Federal Confidentiality of Alcohol and Drug Abuse Patient Records regulations: The Federal rules restrict any use of the information to criminally investigate or prosecute any alcohol or drug abuse patient.[facility] the event this information is protected by the Federal Confidentiality of Alcohol and Drug Abuse Patient Records regulations: The Federal rules restrict any use of the information to criminally investigate or prosecute any alcohol or drug abuse patient.[facility] FOR RECORDS PERTAINING TO PATIENTS WHO [...] BE BASED ON THE PRIMARY CLINICAL RECORDS. [facility] [employer] [facility]. provides no warranty or guarantee of the accuracy or completeness of information in this document.
== END 2024-08-03 09:24 | disposition home or self-care (01) ==
LOC: WC 09:23
PROVIDERS: PCP Family Medicine; Visit Provider Physician Assistant
DX: L89.892 Pressure ulcer of other site, stage 2 (principal)
CPT/HCPCS: G0463

== ENCOUNTER 2024-08-30 08:51 | Outpatient (OUT) | payer MEDICARE, SELFPAY | END 2024-08-30 08:52 | disposition home or self-care (01) | LOC: WC 08:51 | PROVIDERS: PCP Family Medicine; Visit Provider Physician Assistant | DX: L89.892 Pressure ulcer of other site, stage 2 (principal) | CPT/HCPCS: G0463 ==

== ENCOUNTER 2024-10-12 08:19 | Outpatient (OUT) | payer MEDICARE, SELFPAY ==
--- OUTSIDE RECORDS SUMMARY | 2024-10-11 04:15 | XMS_ITS ---
Author Organization [facility] in [place] Address [address] [place] [address] Care Team Providers Care Door Tender Name Role Phone Nixon Carrizales Primary Care Provider [phone] Allergies Allergen (clinical drug ingredient) Drug/Non Drug Allergy documented on EMR Reaction Allergy Type Onset Date Status Substance with sulfonamide structure and antibacterial mechanism of action (substance) Sulfa Antibiotics rash Drug Allergy Active REASON FOR VISIT Bilateral leg bruising Medications Medication SIG (Take, Route, Frequency, Duration) Notes Start Date End Date Status Meloxicam 15 MG TAKE 1 TABLET EVERY DAY for 90 Active Vitamin D3 50 MCG (2000 UT) 1 capsule Or ally Once a day for 30 day(s) Active ALPRAZolam 0.25 MG 1 tablet Orally Twice a day for 30 days F41,9 10/11/2024 Active Pantoprazole Sodium 40 MG TAKE 1 TABLET EVERY DAY for 90 Active [place] & Syringes use for monthly b12 injections for 365 days 23G x 1 3ml syringe 08/16/2024 Active Losartan Potassium 100 MG 1 tablet Orall y Once a day for 30 days Active Levothyroxine Sodium 125 MCG TAKE 1 TABL ET EVERY DAY for 90 Active Gabapentin 600 MG TAKE 2 TABLETS Orall y bid for 30 days Active Cyanocobalamin 1000 MCG/ML INJECT 1ML IN TO THE MUSCLE EVERY MONTH for 90 Active Alendronate Sodium 70 MG TAKE 1 TABLET E VERY WEEK for 84 Active Accu-Chek FastClix Lancets - TEST BLOOD SUGAR EVERY DAY for 90 Active Social History Tobacco Use: Social History Observation Description Date Details (start date - stop date) Never Smoker NA - NA Tobacco Use/Smoking Question Answer Notes Patient is a nonsmoker Problems Problem Type SNOMED Code ICD Code Onset Dates Problem Status W/U Status Risk Notes Problem Easy bruising (013483750) Easy bruising (R23.8) Active confirmed Vital Signs Blood pressure systolic 142 mm Hg 10/12/19 25 Blood pressure diastolic 70 mm Hg 025 Height 68 in 10/11/2024 Weight 189.0 lbs 10/11/2024 BMI 28.73 kg/m2 10/11/2024 Encounters Encounter Location Date Provider Diagnosis [facility] [address] [place] [address] 10/11/2024 Nixon Hoy Easy bruising R23.8 ; Muscle spasm of back M62.830 ; Hypertension I10 ; DJD (degenerative joint disease) M19.90 and Controlled type 2 diabetes mellitus with diabetic polyneuropathy, unspecified whether fci insulin use E11.42 Assessments Encounter Date Diagnosis (ICD Code) Assessment Notes Treatment Notes Treatment Clinical Notes Section Notes 10/11/2024 Easy bruising (ICD-10 - R23.8) 10/11/2024 Muscle spasm of back (ICD-10 - M62.830) 10/11/2024 Hypertension (ICD-10 - I10) 10/11/2024 DJD (degenerative joint disease) (ICD-10 - M19.90) 10/11/2024 Controlled type 2 diabetes mellitus with diabetic polyneuropathy, unspecified whether terminal manager insulin use (ICD-10 - E11.42) Plan Of Treatment Medication Medication Name Sig Start Date Stop Date Notes ALPRAZolam 0.25 MG 1 tablet Orally Twice a day for 30 days 10/11/2024 Pending Test Test Name Order Date HEMOGLOBIN A1C (GLYCO) 10/11/2024 IRON, TOTAL 10/11/2024 LIPID PANEL (CHOL/TRIG/HDL/LDL) 10/12/19 25 VITAMIN D, 25 LEVEL (TOTAL) 10/11/2024 PT - INR 10/11/2024 STOOL OCCULT BLOOD 10/11/2024 PTT 10/11/2024 THYROID PANEL (T4/TSH/FREE T3) CMP (COMP MET WALSH) w/eGFR CKD-EPI 2024 CBC WITH DIFF 10/11/2024 Progress Notes * Leelee CEDILLO MDOB: 2 (73 yo F)Acc No.[id number]:10/11/2024 UNLOCKED PROGRESS NOTE Progress Note Patient: Leelee LAM Provider: Clary Carrizales ([facility])MD :1950 A ge:73 Y S ex:Female Date:10/11/2024 Address:[address] [place], [place] [id number] Check In:08:08 AM ESTCheck O ut:08:32 AM EST Subjective: * Chief Complaints: * 1 . Bilateral leg bruising. * HPI: G eneral: Lt arm - some mild brujsing - but likely worse -injured yeste legs mod to sever3 brusing - no specific injury - can b e wrose when up on feet more disssed anxiety - nee mner R ant thigh - skin tear healing back pain stable d sugars stabel htn - bp stable. * ROS: E ENT: hearing changes d enies. v isual changes d enies.?non-healing mouth sores d enies. s wollen glands or neck lumps d enies. h oarseness d enies. s ore throat d enies. d ifficulty swallowing d enies. n ose bleeds d enies. n dhruv congestion d enies. e ar ache d enies. e ar discharge?denies. r inging in ears d enies. l ight sensitivity d enies. e ye pain d enies. b lurring d enies. e ye irritation d enies. d ouble vision d enies.?vision loss d enies. G eneral/Constitutional: Sweats: D enies. F atigue d enies. S leep problems d enies. A norexia d enies. M alaise d enies. W eight loss d enies.?Fatigue or Weakness d enies. F ever or Chills d enies. C ardiovascular: Shortness of Breath w/lying flat d enies. L ightheadedness/dizziness d enies. C hest tightness/ heavy pressure d enies. S welling of legs, ankles, or feet d enies. W aking up with shortness of breath d enies. C hest pain denies. P alpitations d enies. W eight gain d enies. R espiratory: Chronic or frequent cough d enies. C oughing up blood?denies. D ifficulty breathing d enies. P roductive cough d enies. S noring?denies. S hortness of breath that awakens from sleep (PND) d enies. C hest pain d enies. S putum production d enies. W heezing d enies. [facility]. * Medical History: H TN, Thyroid, DJD (degenerative joint disease), Avascular necrosis of head of humerus, Edema, Lumbar spinal stenosis, Sciatica, Lumbar disc disease, Dyshidrotic eczema, Ankylosing spondylitis, Other peripheral vascular disease, Rectocele without uterine prolapse, Hypertension, Seasonal allergic rhinitis, Anxiety and depression, Insomnia, Thrombophlebitis of superficial vein of lower leg, Muscle spasm of back, Acute embolism and thrombosis of right peroneal vein, Varicose vein, Unspecified skin changes, Cellulitis, Over weight, Allergic arthritis of left hip, Shoulder impingement syndrome, Hair loss, Other cough, Pharyngitis, Dyspnea, COVID-19, Other peripheral vertigo, unspecified ear, Contact with and (suspected) exposure to other viral communicable diseases, Pain in left lower leg, Nevus, Osteoarthritis, unspecified osteoarthritis type, unspecified site, Acute bronchitis, Clostridioides difficile diarrhea, Deficiency of vitamin B12, Ankle edema, Acute gastroenteritis, Left hand pain, At risk for falls, Lumbar post-laminectomy syndrome, Bruising, Varicose veins of leg with pain, bilateral, Chronic venous insufficiency, Hypothyroidism, Osteoarthritis of right knee, Other osteoarthritis of spine, lumbar region, Lumbosacral neuritis, Disc displacement, lumbar, Ischemia. * Surgical History: s pine surgery 12/2018, cataract surgery 05/2021, Skin Substitute with excisional biopsy- right ankle/foot 08/10, Carpal Tunnel Release 07/03/10, D&C 02/09/14, Excision of Ganglion Cyst 2011, Knee Arthroscopy, Rt 2011, Cholecystectomy 2007, Rotator Cuff Repair, rt 2010, Meniscus Repair, Rt 2011, Revision Fusion T11-L4 , Total Knee Rt 05/10, Laser Ablation small Saphenous vein, rt 05/21/22, Venous Ablation 06/03/22, Ablation Left Varicose Veins 06/19/22, Lumbar Epidural Steroid injection, Dr. Brown . * Hospitalization/Major Diagno stic Procedure: S gregory activity- 08/10, Multiple times for surgeries , Hip dislocation 03/11. * Family History: F ather: , lung. M other: , breast, diagnosed with Other malignant neoplasm of unspecified site. B rother(s): , diagnosed with Diabetes mellitus without mention of complication, type II or unspecified type, not stated as uncontrolled. 3 brother(s) . . family hx of Diabetes, HTN, Emphysema/COPD, Breast Cancer. * Social History: T obacco Use: T obacco Use/Smoking P atient is a n onsmoker * Medications: T aking Accu-Chek FastClix Lancets(Lancets) - Miscellaneous TEST BLOOD SUGAR EVERY DAY , Taking Alendronate Sodium 70 MG Tablet TAKE 1 TABLET EVERY WEEK , Taking ALPRAZolam 0.25 MG Tablet 1 tablet Orally Twice a day F41,9, Taking Cyanocobalamin 1000 MCG/ML Solution INJECT 1ML INTO THE MUSCLE EVERY MONTH , Taking Gabapentin 600 MG Tablet TAKE 2 TABLETS Orally bid , Taking Levothyroxine Sodium 125 MCG Tablet TAKE 1 TABLET EVERY DAY , Taking Losartan Potassium 100 MG Tablet 1 tablet Orally Once a day , Taking Meloxicam 15 MG Tablet TAKE 1 TABLET EVERY DAY , Taking [place] & Syringes use for monthly b12 injections 23G x 1 3ml syringe, Taking Pantoprazole Sodium 40 MG Tablet Delayed Release TAKE 1 TABLET EVERY DAY , Taking Vitamin D3 50 MCG (2000 UT) Capsule 1 capsule Orally Once a day , Discontinued Azithromycin 250 MG Tablet as directed Orally daily , Notes to Pharmacist: take 2 tablets po on first day than 1 tablet po days 2-5, Medication List reviewed and reconciled with the patient * Allergies: S ulfa Antibiotics: rash. Objective: * Vitals: W t:189.0lbs, Ht: 68 in, BP:142/70mm Hg, BMI:28.73Index, Wt-k.73 kg. * Examination: P hysical Exam: GENERAL: w ell developed, well nourished, in no acute distress. HEAD: n ormocephalic/atraumatic. EYES: p upils equal, round and reactive to light, conjunctivae and sclerae normal. EARS: n o deformity or lesion of external ear, canals and TM appear normal bilaterally, TM's intact, not inflamed with normal light reflex, hearing grossly normal to conversational speech. NOSE: n o deformity, discharge, inflammation, or lesions.? MOUTH: m ucous membranes moist, normal oropharynx and posterior pharynx without lesions or exudates, tongue normal, dentition normal. NECK: n bobo supple, no masses or palpable cervical nodes, trachea midline, thyroid without nodules, masses, tenderness, or enlargement. CHEST: n o chest wall deformity, no chest wall tenderness.? LUNGS: n ormal respiratory effort and clear to auscultation, no wheezes, rales, or rhonchi, good air exchange. CARDIO: r egular rate and rhythm, normal S1 and S2, nor murmur, rub, or gallop. PULSES: n ormal capillary refill. ABDOMEN: s oft, non-distended, non-tender, no masses. MUSCULOSKELETAL: n o deformity or scoliosis noted, normal range of motion, joints normal, no erythema, edema, effusion, or ecchymosis. EXTREMITY: n o clubbing, cyanosis, edema, or deformity with normal ROM in both upper and lower bilateral extremities. NEUROLOGIC: g rossly normal. SKIN: n o rashes, ulcerations, or suspicious lesions. LYMPH NODES: n o cervical adenopathy, nodes normal. MENTAL STATUS: a lert and oriented x3, normal mood and affect. Assessment: * Assessment: 1. E asy bruising - R23.8 (Primary) 2 . M uscle spasm of back - M62.830? 3. H ypertension - I10 4 . D TONNY (degenerative joint disease) - M19.90 5 . C ontrolled type 2 diabetes mellitus with diabetic polyneuropathy, unspecified whether fci insulin use - E11.42 Plan: * Treatment: 2. M uscle spasm of back L AB: HEMOGLOBIN A1C (GLYCO) L AB: IRON, TOTAL L AB: LIPID PANEL (CHOL/TRIG/HDL/LDL) L AB: VITAMIN D, 25 LEVEL (TOTAL) L AB: STOOL OCCULT BLOOD L AB: THYROID PANEL (T4/TSH/FREE T3) L AB: CMP (COMP MET WALSH) w/eGFR CKD-EPI L AB: CBC WITH DIFF 3. H ypertension L AB: HEMOGLOBIN A1C (GLYCO) L AB: IRON, TOTAL L AB: LIPID PANEL (CHOL/TRIG/HDL/LDL) L AB: VITAMIN D, 25 LEVEL (TOTAL) L AB: STOOL OCCULT BLOOD L AB: THYROID PANEL (T4/TSH/FREE T3) L AB: CMP (COMP MET WALSH) w/eGFR CKD-EPI L AB: CBC WITH DIFF 4. D TONNY (degenerative joint disease) L AB: HEMOGLOBIN A1C (GLYCO) L AB: IRON, TOTAL L AB: LIPID PANEL (CHOL/TRIG/HDL/LDL) L AB: VITAMIN D, 25 LEVEL (TOTAL) L AB: STOOL OCCULT BLOOD L AB: THYROID PANEL (T4/TSH/FREE T3) L AB: CMP (COMP MET WALSH) w/eGFR CKD-EPI L AB: CBC WITH DIFF 5. C ontrolled type 2 diabetes mellitus with diabetic polyneuropathy, unspecified whether terminal manager insulin use L AB: HEMOGLOBIN A1C (GLYCO) L AB: IRON, TOTAL L AB: LIPID PANEL (CHOL/TRIG/HDL/LDL) L AB: VITAMIN D, 25 LEVEL (TOTAL) L AB: STOOL OCCULT BLOOD L AB: THYROID PANEL (T4/TSH/FREE T3) L AB: CMP (COMP MET WALSH) w/eGFR CKD-EPI L AB: CBC WITH DIFF * Preventive Medicine: Screenings/Counseling: B SD ACTION PLAN Above Normal BMI Follow-up D ietary management education, guidance, and counseling * * Electronic signature of Nixon Carrizales MD, [id number] on 10/12/2024 at 08:33 AM EDT Sign off status: Pending Visit Status: C HK (Check Out) * Provider: Clary Carrizales ([facility])MD Date: 10/11/2024 Generated for Printi ng/Faxing/eTransmitting on: 10/12/2024 08:33 AM EDT History and Physical Notes * HPI (History of Present Illness) Category Sub-Category Detail Notes Category Not es General Lt arm - some mild brujsing - but likely worse -injured yeste legs mod to sever3 brusing - no specific injury - can b e wrose when up on feet more disssed anxiety - nee mner R ant thigh - skin tear healing back pain stable d sugars stabel htn - bp stable Examination Category Sub-Category Detail Notes Category Not es Physical Exam GENERAL: well developed, well nourished, in no acute distress HEAD: normocephalic/atraum atic EYES: pupils equal, round and reactive to light, conjunctivae and sclerae normal EARS: no deformity or lesi on of external ear, canals and TM appear normal bilaterally, TM's intact, not inflamed with normal light reflex, hearing grossly normal to conversational speech NOSE: no deformity, discha rge, inflammation, or lesions MOUTH: mucous membranes nicky st, normal oropharynx and posterior pharynx without lesions or exudates, tongue normal, dentition normal NECK: neck supple, no mass es or palpable cervical nodes, trachea midline, thyroid without nodules, masses, tenderness, or enlargement CHEST: no chest wall deform ity, no chest wall tenderness LUNGS: normal respiratory e ffort and clear to auscultation, no wheezes, rales, or rhonchi, good air exchange CARDIO: regular rate and rhy thm, normal S1 and S2, nor murmur, rub, or gallop PULSES: normal capillary ref ill ABDOMEN: soft, non-distended, non-tender, no masses RECTAL: MUSCULOSKELETAL: no deformity or scol iosis noted, normal range of motion, joints normal, no erythema, edema, effusion, or ecchymosis EXTREMITY: no clubbing, cyanosi s, edema, or deformity with normal ROM in both upper and lower bilateral extremities NEUROLOGIC: grossly normal SKIN: no rashes, ulceratio ns, or suspicious lesions LYMPH NODES: no cervical adenopat hy, nodes normal MENTAL STATUS: alert and oriented x 3, normal mood and affect
--- OUTSIDE RECORDS SUMMARY | 2024-10-11 04:25 | XMS_ITS ---
Author Organization [facility] in [place] Address [address] [place] [address] Care Team Providers Care Mining Technician Name Role Phone JasvircarolinaNixon Primary Care Provider REASON FOR VISIT seated walker Medications Medication SIG (Take, Route, Frequency, Duration) Notes Start Date End Date Status Rollator 1 rollator to safely complete ADLs DX M51.36 for 365 days 10/11/2024 Active Encounters Encounter Location Date Provider Diagnosis [facility] [address] [place] [address] 10/11/2024 Nixon Carrizales Plan Of Treatment Medication Medication Name Sig Start Date Stop Date Notes Rollator 1 rollator to safely complete ADLs DX M51.36 for 365 days 10/11/2024 Progress Notes * Leelee CEDILLO MDOB: 2 (73 yo F)Acc No.[id number]:10/11/2024 Patient: Sandi JAUREGUILeelee :1950 A ge:73 Y S ex:Female Address:[address] [place] [address], [phone] * Refills Start Rollator, 1, 1 rollator to safely complete ADLs DX M51.36, 365 days, Refills=0 * true * Date: Generated for Printi ng/Faxing/eTransmitting on: 0 10/12/2024 08:32 AM EDT
--- OUTSIDE RECORDS SUMMARY | 2024-10-11 04:29 | XMS_ITS ---
Author Organization [facility] in [place] Address [address] [place] [address] Care Team Providers Care Straw Hat Machine Operator Name Role Phone JasvirNixon figueroa Primary Care Provider REASON FOR VISIT mammogram order Encounters Encounter Location Date Provider Diagnosis [facility] [address] [place] [address] 10/11/2024 Nixon Carrizales Screening for breast cancer Z12.39 Assessments Encounter Date Diagnosis (ICD Code) Assessment Notes Treatment Notes Treatment Clinical Notes Section Notes 10/11/2024 Screening for breast cancer (ICD-10 - Z12.39) Plan Of Treatment Pending Test Test Name Order Date BI MAMMOGRAM SCREENING TOMOSYNTHESIS SAMI ATERAL 10/11/2024 Progress Notes * Leelee CEDILLO MDOB: (73 yo F)Acc No.[id number]:10/11/2024 Patient: Sandi JAUREGUI Leelee Berta :1950 A ge:73 Y S ex:Female Address:[address] [place] [address], [phone] Subjective: * Chief Complaints: * M ammogram order * Medical History: * Surgical History: * Hospitalization/Major Diagno stic Procedure: * Medications: Objective: * Vitals: * Physical Examination: Assessment: * Assessment: 1. S creening for breast cancer - Z12.39 (Primary) Plan: * Treatment: * Procedure Codes: * true * Date: Generated for Printi ng/Faxing/eTransmitting on: 0 10/12/2024 08:33 AM EDT
--- OUTSIDE RECORDS SUMMARY | 2024-10-12 08:32 | XMS_ITS | Encounter Summary ---
Author Organization [facility] Address [address] [place] [address] Care Team Providers Care Sorority Mother Name Role Phone Leander Carrizales MD Primary Care Provider [phone] Source Comments In the event this information is protected by the Federal Confidentiality of Alcohol and Drug AbusePatient Records regulations: The Federal rules restrict any use of the information to criminally investigate or prosecute any alcohol or drug abuse patient.[facility] Encounter Details Date Type Department Care Team (Late st Contact Info) Description 07/29/2023 [place] [address] Provider, Ccf Questionnaire Submission Social History Tobacco Use Types Packs/Day Years Used Date Smoking Tobacco: Never Alcohol Use Standard Drinks/Week Comments Yes 6 (1 standard drink = 0.6 oz pur e alcohol) Area Deprivation Index Answer Date Doron rded National Score (1-100), lower number is lower ri sk 62 06/24/2023 State Score (1-10), lower number is lower risk 4 06/24/2023 Data from: https://www.neighborhoodatlas.medicine.[facility].edu/. 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 Answer Date of Assessment Author No 07/03/2014 8:11 AM Berta Eugene LPN * Are you blind or do you have serious difficulty seeing, even when wearing glasses? Answer Date of Assessment Author No 07/03/2014 8:11 AM Berta Eugene LPN * Do you have serious difficulty walking or climbing stairs? Answer Date of Assessment Author No 07/03/2014 8:11 AM Berta Eugene LPN * Do you have difficulty dressing or bathing? Answer Date of Assessment Author No 07/03/2014 8:11 AM Berta Eugene LPN * Because of a physical, mental, or emotional condition, do you have difficulty doing errands alone such as visiting a doctor's office or shopping? Answer Date of Assessment Author No 07/03/2014 8:11 AM Berta Eugene LPN documented as of this encounter Mental Status * Because of a physical, mental, or emotional condition, do you have serious difficulty concentrating, remembering, or making decisions? Answer Entry Date Author No 07/03/2014 8:11 AM Berta Eugene LPN documented in this encounter Plan of Treatment Not on file documented as of this encounter Visit Diagnoses Not on filedocumented in this encounter Care Teams Sorority Mother Relationship Specialty Start Date End Date Leander Carrizales MD PCP - General Family Medicine 06/09/11 documented as of this encounter
--- OUTSIDE RECORDS SUMMARY | 2024-10-12 08:32 | XMS_ITS | Encounter Summary ---
Author Organization [facility] Address [address] [place] [address] Care Team Providers Care Band Builder Name Role Phone Leander Carrizales MD Primary Care Provider [phone] Source Comments In the event this information is protected by the Federal Confidentiality of Alcohol and Drug AbusePatient Records regulations: The Federal rules restrict any use of the information to criminally investigate or prosecute any alcohol or drug abuse patient.[facility] Encounter Details Date Type Department Care Team (Late st Contact Info) Description 08/06/2023 [place] [address] Provider, Ccf Questionnaire Submission Social History Tobacco Use Types Packs/Day Years Used Date Smoking Tobacco: Never Alcohol Use Standard Drinks/Week Comments Yes 6 (1 standard drink = 0.6 oz pur e alcohol) Area Deprivation Index Answer Date Doron rded National Score (1-100), lower number is lower ri sk 62 06/24/2023 State Score (1-10), lower number is lower risk 4 06/24/2023 Data from: https://www.neighborhoodatlas.medicine.[facility].edu/. Last address used for calculation [address] [facility] 06/24/[address]23 Comments No Sex and Gender [...] on filedocumented in this encounter Care Teams Band Builder Relationship Specialty Start Date End Date Leander Carrizales MD PCP - General Family Medicine 06/09/11 documented as of this encounter
--- OUTSIDE RECORDS SUMMARY | 2024-10-12 08:32 | XMS_ITS | Clinical Summary ---
Author Organization [facility] Address [address] [place] [address] Phone Care Team Providers Care Senior Sales Engineer Name Role Phone Leander Carrizales MD Primary Care Provider [phone] Social History Tobacco Use Types Packs/Day Years Used Date Smoking Tobacco: Never Assessed Comments Unknown Sex and Gender Information Value Date Recorded Sex Assigned at Not on file Legal Sex Female 3:27 PM EST Gender Identity Not on file Sexual Orientation Not on file Plan of Treatment Not on file Care Teams Senior Sales Engineer Relationship Specialty Start Date End Date Leander Carrizales MD [address] [place] [address] PCP - General 09/22/18
--- OUTSIDE RECORDS SUMMARY | 2024-10-12 08:32 | XMS_ITS | Clinical Summary ---
Author Organization [facility] Address [address] [place] [address] Care Team Providers Care Oracle Iam Consultant Name Role Phone Leander Carrizales MD Primary Care Provider [phone] Allergies Active Allergy Reactions Criticality Noted Date Comments Metronidazole Dyspepsia Medium 09/18/2022 Sulfacetamide Rash High 09/18/2022 Medications alendronate 70 MG tablet 07/08/2022 Active Cholecalciferol 50 MCG (1999) capsule 1 capsule. Active furOSEmide 20 MG tablet 1 tablet Orally Once a day as needed for 30 days Active Levothyroxine 125 MCG tablet 1 tablet in the morning on an empty stomach Orally Once a day for 30 day(s) Active losartan 100 MG tablet 1 tablet Orally Once a day for 30 day(s) Active Meloxicam 15 MG tablet 1 tablet Orally Once a day for 30 day(s) Active Pantoprazole [address] tablet DR 1 tablet Orally Once a day for 30 day(s) Active tizanidine 4 MG capsule Take 1 capsule by mouth. Active gabapentin 600 MG tablet Take 1 tablet by mouth 2 times daily. Active Social History Tobacco Use Types Packs/Day Years Used Date Smoking Tobacco: Never Smokeless Tobacco: Never Tobacco Cessation:Counseling Given: Not Answered Alcohol Use Standard Drinks/Week Comments Yes 0 (1 standard drink = 0.6 oz pur e alcohol) occasional Comments Unknown Sex and Gender Information Value Date Recorded Sex Assigned at Not on file Legal Sex Female 1:36 PM EST Gender Identity Female 08/27/2022 11:40 AM EDT Sexual Orientation Choose not to disclose 2022 11:40 AM EDT Last Filed Vital Signs Vital Sign Reading Time Taken Comments Blood Pressure - - Pulse - - Temperature 35.8 C (96.4 F) 09/18/2022 10:40 AM EDT Respiratory Rate - - Oxygen Saturation - - Inhaled Oxygen Concentration - - Weight 93.3 kg (205 lb 9.6 oz) 09/18/2022 10:40 AM EDT Height 172.7 cm (5' 8 ) 09/18/2022 10:40 AM EDT Body Mass Index 31.26 09/18/2022 10:40 AM EDT Plan of Treatment Health Maintenance Due Date Last Done Comments DEXA SCAN DISCUSSION 1951 HEPATITIS C VIRUS SCREENING 1951 POTASSIUM 1951 TETANUS 1951 TSH 1951 TDAP (ADULT) 12/20/1970 CERVICAL CANCER SCREENING DISCUSSION 12/20/1972 LIPID SCREENING 1991 COLORECTAL CANCER SCREENING DISCUSSION 12/20/1996 ZOSTER (SHINGLES) VACCINE (1 of 2) 12/20/2001 MAMMOGRAM SCREENING DISCUSSION 02/27/2023 02/27/2022, 01/29/2021, 11/24/2019, Additional history exists COVID-19 VACCINE ( season) 2023 12/03/2021, 03/25/2021, 07/12/2020, Additional history exists INFLUENZA VACCINE (Season Ended) 2024 02/11/2022, 02/08/2020, 02/23/2018, Additional history exists RSV VACCINE (1 - 1-dose 75+ series) 12/20/2026 PNEUMOCOCCAL VACCINE SERIES Completed 02/24/2017, 1 HEP B VACCINE Aged Out No longer damaso paple based on patient's age to complete this topic Insurance MEDICARE [employer] HMO PPO Care Teams Oracle Iam Consultant Relationship Specialty Start Date End Date Leander Carrizales MD PCP - General Family Medicine 04/09/22
--- OUTSIDE RECORDS SUMMARY | 2024-10-12 08:33 | XMS_ITS | Encounter Summary ---
Author Organization [facility] Address [id number] [address] [place] [address] Care Team Providers Care Transfer Knitter Name Role Phone Unavailable Primary Care Provider Unavailabl e Encounter Details Date Type Department Care Team (Late st Contact Info) Description 12/03/2022 Orders Only [facility] [address] [place] [address] External, Scanning Provider Social History Tobacco Use Types Packs/Day Years Used Date Smoking Tobacco: Never Assessed Childcare Answer Date Recorded Childcare Unknown 09/29/2018 Employment Answer Date Recorded Employment Unknown 09/29/2018 Comments Unknown Sex and Gender Information Value Date Recorded Sex Assigned at Not on file Legal Sex Female 12:12 PM EDT Gender Identity Not on file Sexual Orientation Not on file documented as of this encounter Plan of Treatment Not on file documented as of this encounter Procedures Procedure Name Priority Date/Time Associated Diagnosis Comments VASC VENOUS DUPLEX LOWER VEIN MAPPING BILATERAL Routine 04/14/2022 3:37 PM EST documented in this encounter Results * Vas venous duplex lwr vein mapping bi (04/14/2022 3:37 PM EST) Anatomical Region Laterality Modality Vascular Bilateral Ultrasound us Scanning Provider External CV VASCULAR ORDERABLE S Final Result documented in this encounter Visit Diagnoses Not on filedocumented in this encounter
--- OUTSIDE RECORDS SUMMARY | 2024-10-12 08:33 | XMS_ITS | Patient Health Record ---
Author Organization [facility] Address [address] [place] [address] Care Team Providers Care Manufacturing Millwright Name Role Phone Dr. Uziel Kenny Primary Care Provider Reason For Referral No Information Plan Of Treatment No Information Insurance Providers Payer Name Payer Address Payer Phone Subscriber Number Group Number Insured Name Patient Relationship to Insured Coverage Start Date Coverage End Date [employer] MEDICARE PLAN [address] [address] [place] [phone] [id number] KENAN CHASE Self - patient is the insured 2 DENTAL [employer] MEDICARE [address] [address] [place] [address] [phone] [id number] KENAN CHASE Self - patient is the insured 2
--- OUTSIDE RECORDS SUMMARY | 2024-10-12 08:33 | XMS_ITS | Patient Health Record ---
Author Organization [facility] in [place] Address [address] [place] [address] Care Team Providers Care General Internal Medicine Doctor Name Role Phone Nixon Vick Primary Care Provider SARA VICK Unavailable [phone] Kingston Dash Unavailable [phone] Deepali Jansen Unavailable [phone] Trisha Mcneil Unavailable [phone] Allergies Allergen (clinical drug ingredient) Drug/Non Drug Allergy documented on EMR Reaction Allergy Type Onset Date Status Substance with sulfonamide structure and antibacterial mechanism of action (substance) Sulfa Antibiotics rash Drug Allergy Active Results Component Value Reference Range Notes FREE T3 Reviewed date:10/20/2023 09:56:00 PM Interpretation: Performing Lab: Notes/Report: [facility] , Free T3 2.48 2.18-3.98 pg/mL Performing Lab: see note ML - [facility] LB PROF 14(COMP METB) Reviewed date:10/20/2023 09:56:00 PM Interpretation: Performing Lab: Notes/Report: [facility] , Sodium 140 136-145 mmol/L Potassium 3.8 3.5-5.1 mmol/L Chloride 103 98-107 mmol/L Carbon Dioxide 28.7 21.0-32.0 mmol/L Anion Gap 12.1 Glucose 93 74-106 mg/dL Blood Urea Nitrogen 10.0 7.0-18.0 mg/dL Creatinine 0.85 0.55-1.02 mg/dL Estimated GFR ( Yun >60 >=60 Estimated GFR (Non- [place] >60 >=60 BUN Creatinine Ratio 11.8 Calcium 9.1 8.5-10.1 mg/dL Bilirubin Total 0.5 0.2-1.0 mg/dL Aspartate Amino Transferase 19 15-37 U/L Alanine Aminotransferase 21 14-59 U/L Alkaline Phosphatase 76 46-116 U/L Total Protein 7.4 6.4-8.2 g/dL Albumin Level 3.3 3.4-5.0 g/dL Globulin 4.1 Albumin Globulin Ratio 0.8 Performing Lab: see note ML - [facility] LB T4 Reviewed date:10/20/2023 09:56:00 PM Interpretation: Performing Lab: Notes/Report: [facility] , T4 Thyroxine 11.50 4.80-13.90 ug/dL Performing Lab: see note ML - [facility] LB TSH Reviewed date:10/20/2023 09:56:00 PM Interpretation: Performing Lab: Notes/Report: [facility] , Thyroid Stimulating Hormone 0.250 0.358-3.740 uIU/mL Performing Lab: see note ML - [facility] LB FOLATE Reviewed date:02/15/2024 10:02:35 PM Interpretation: Performing Lab: Notes/Report: [facility] , Folate 16.30 8.60-58.90 ng/mL Performing Lab: see note ML - [facility] LB LIPID PROFILE Reviewed date:10/20/2023 09:56:00 PM Interpretation: Performing Lab: Notes/Report: [facility] , Triglycerides 85 <=150 mg/dL Cholesterol 190 <=200 mg/dL HDL Cholesterol 65 40-60 mg/dL > or =60 mg/dl - LOW CARDIOVASCULAR RISK <40 mg/dl - HIGH CARDIOVASCULAR RISK LDL Cholesterol Calculated 108.0 <100 mg/dl OPTIMAL 100-129 mg/dl NEAR OR ABOVE OPTIMAL 130-159 mg/dl BORDERLINE HIGH 160-189 mg/dl HIGH >190 mg/dl VERY HIGH VLDL CHOLESTEROL 17.0 Chol HDL Ratio 2.9 3.3 - 4.4 LOW RISK 4.4 - 7.1 AVERAGE RISK 7.1 - 11.0 MODERATE RISK >11.0 HIGH RISK Performing Lab: see note ML - [facility] LB GLYCOHEMOGLOBIN A1C Reviewed date:10/20/2023 09:56:00 PM Interpretation: Performing Lab: Notes/Report: [facility] , Glycohemoglobin A1C 5.0 4.5-6.2 % ADA RECOMMENDED LIMIT 4.0 - 6.0 ADA THERAPEUTIC TARGET < 7.0 ACTION SUGGESTED > 7.0 Estimated Average Glucose 97 Performing Lab: see note ML - [facility] LB CBC AUTO DIFF Reviewed date:10/20/2023 09:56:00 PM Interpretation: Performing Lab: Notes/Report: [facility] , White Blood Count 7.8 4.0-11.0 10 3/uL Red Blood Count 4.68 4.20-5.40 10 6/uL Hemoglobin 13.9 12.0-16.0 g/dL Hematocrit 42.5 36.0-48.0 % Mean Corpuscular Volume 90.8 81.0-99.0 fL Mean Corpuscular Hemoglobin 29.7 26.7-34.0 pg Mean Corpuscular HGB Conc 32.7 29.9-35.2 g/dL Red Cell Distribution Width 12.4 11.0-15.0 % Platelet Count 248 150-450 10 3/uL Mean Platelet Volume 8.7 9.5-13.5 fL Neutrophils Percent Auto 68.8 43.0-75.0 % Lymphocytes Percent Auto 22.5 20.5-60.0 % Monocytes Percent Auto 6.4 1.7-12.0 % Eosinophils Percent Auto 1.3 0.9-7.0 % Basophils Percent Auto 0.5 0.2-2.0 % Immature Granulocytes Pct Auto 0.5 0.0-0.5 % Neutrophils Absolute Auto 5.4 1.4-6.5 10 3/uL Lymphocytes Absolute Auto 1.8 1.2-3.8 10 3/uL Monocytes Absolute Auto 0.5 0.3-0.8 10 3/uL Eosinophils Absolute Auto 0.1 0.0-0.7 10 3/uL Basophils Absolute Auto 0.0 0.0-0.1 10 3/uL Immature Granulocytes Abs Auto 0.04 0.00-0.03 10 3/uL Performing Lab: see note ML - [facility] LB UA DIP NONAUTO WO MICRO (810 02) - IN OFFICE Reviewed date:08/12/2024 02:12:02 PM Interpretation: Performing Lab: Notes/Report: COLOR Yellow CLARITY Clear GLUCOSE Neg BILIRUBIN Neg KETONE Neg SPECIFIC GRAVITY 1.010 BLOOD Neg PH Neg PROTEIN Neg UROBILINOGEN Neg NITRITE Neg LEUKOCYTE ESTERASE ++ COVID-19, Flu A+B IH (Not ye t reviewed by provider) Interpretation: Performing Lab: Notes/Report: COVID - FLU A - FLU B - Control + UA DIP NONAUTO WO MICRO (810 02) - IN OFFICE (Not yet reviewed by provider) Interpretation: Performing Lab: Notes/Report: COLOR yellow CLARITY clear GLUCOSE neg BILIRUBIN neg KETONE neg SPECIFIC GRAVITY 1.015 BLOOD trace PH 6 PROTEIN neg UROBILINOGEN neg NITRITE neg LEUKOCYTE ESTERASE large Urine Culture, Routine Reviewed date:02/16/2024 08:18:49 PM Interpretation: Performing Lab: Notes/Report: [facility] , Urine Culture, Routine See Below For Report Urine Culture, Routine Urine Culture, Routine Mixed urogenital camilo Urine Culture, Routine Urine Culture, Routine Less than 10,000 colonies/mL Urine Culture, Routine Urine Culture, Routine Performed at: [facility] Urine Culture, Routine Urine Culture, Routine [address] [place] [id number] Urine Culture, Routine Urine Culture, Routine Loss Control Consultant: Dwayne Marquez PhD, Phone: [phone] Urine Culture, Routine Performing Lab: see note LC - [facility] LB SEE REPORT - Airplane Refueler Id 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 YELLOW YELLOW Clarity Urine CLEAR CLEAR Specific [place] Urine 1.010 1.005-1.025 pH Urine 6.0 5.0-9.0 Protein Urine NEGATIVE NEG/TRACE mg/dL Glucose Urine UA NEGATIVE NEGATIVE mg/dL Bilirubin Urine NEGATIVE NEGATIVE Ketones Urine NEGATIVE NEGATIVE mg/dL Blood Urine TRACE-I NEGATIVE Nitrite Urine NEGATIVE NEGATIVE Urobilinogen Urine 0.2 0.2-1.0 EU/dL Leukocyte Esterase Urine MODERATE NEGATIVE Performing Lab: see note ML - [facility] LB Reason For Referral Diagnosis 1 Arthritis of lumbosa cral spine (M47.817) Diagnosis 2 Lumbar disc disease (M51.9) Diagnosis 3 Other intervertebral disc displacement, lumbar region (M51.26) Referral Organization [facility] Referring Provider First Name Nixon Referring Provider Last Name All [facility] Referred Provider Genet Morris Referred Provider Specialty Neurological Surgery Referral Priority Routine Medications Medication SIG (Take, Route, Frequency, Duration) Notes Start Date End Date Status Meloxicam 15 MG TAKE 1 TABLET EVERY DAY for 90 Active Losartan Potassium 100 MG 1 tablet Orall y Once a day for 30 days Active Levothyroxine Sodium 125 MCG TAKE 1 TABL ET EVERY DAY for 90 Active Gabapentin 600 MG TAKE 2 TABLETS Orall y bid for 30 days Active Cyanocobalamin 1000 MCG/ML INJECT 1ML IN TO THE MUSCLE EVERY MONTH for 90 Active Rollator 1 rollator to safely complete ADLs DX M51.36 for 365 days 10/11/2024 Active Alendronate Sodium 70 MG TAKE 1 TABLET E VERY WEEK for 84 Active Accu-Chek FastClix Lancets - TEST BLOOD SUGAR EVERY DAY for 90 Active Vitamin D3 50 MCG (1999 UT) 1 capsule Or ally Once a day for 30 day(s) Active ALPRAZolam 0.25 MG 1 tablet Orally Twice a day for 30 days F41,9 10/11/2024 Active Pantoprazole Sodium 40 MG TAKE 1 TABLET EVERY DAY for 90 Active Medina & Syringes use for monthly b12 injections for 365 days 23G x 1 3ml syringe 08/16/2024 Active Immunizations Vaccine Route Administration Date Status Comme nts Flu, Fluad (57834) 65 yrs and older, single-dose syringe IM Intramuscular 03/25/2024 Administered Flu, Fluad (99557) 65 yrs+, single-dose syringe (1315-3373) IM Intramuscular 01/20/2023 Administered Tdap (Adacel) IM Intramuscular 01/07/2023 Administered Social History Tobacco Use: Social History Observation Description Date Details (start date - stop date) Never Smoker NA - NA Tobacco Use/Smoking Question Answer Notes Patient is a nonsmoker Alcohol Screen (Audit-C) Question Answer Notes Did you have a drink containing alcohol in the p ast year? No Points 0 Interpretation Negative AUDIT-C (Standard) Question Answer Notes Did you have a drink containing alcohol in the p ast year? 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) Active confirmed Problem 34175962 Other disorder o f circulatory system (I99.8) Active confirmed Problem Unstageable pressure injury of right ankle (disorder) (99161076140996289) Pressure ulcer of right ankle, unspecified stage (L89.519) Active confirmed Problem 472441882 Other intervertebral disc displacement, lumbar region (M51.26) Active confirmed Problem Spasm of back muscles (999130090) Muscle spasm of back (M62.830) Active confirmed Problem Skin symptom change (275247020) Unspecified skin changes (R23.9) Active confirmed Problem Exposure to communicable disease (922018457) Contact with and (suspected) exposure to other viral communicable diseases (Z20.828) Active confirmed Problem Hypertension (22790015) Hypertension (I10) Active confirmed Problem Hypothyroidism (36210870) Hypothyroidism (E03.9) Active confirmed Problem Edema (68882473) Edema (R60.9) Active confirmed Problem Varicose vein (17594817) Varicose vein (I86.8) Active confirmed Problem Dyspnea (825578676) Dyspnea (R06.00) Active con firmed Problem Essential hypertension (41594881) Benign essential HTN (I10) Active confirmed Problem Insomnia (446050300) Insomnia (G47.00) Active confirmed Problem Acid reflux (671416409) Acid reflux (K21.9) Active confirmed Problem Urinary incontinence (872790749) Urinary incontinence (R32) Active confirmed Problem Degenerative joint disease (053841781) DJD (degenerative joint disease) (M19.90) Active confirmed Problem Lumbar post-laminectomy syndrome (336667761) Lumbar post-laminectomy syndrome (M96.1) Active confirmed Problem Sinusitis (49209693) Sinusitis (J32.9) Active confirmed Problem Disorder of lumbar disc (149133518) Lumbar disc disease (M51.9) Active confirmed Problem Pharyngitis (588587439) Pharyngitis (J02.9) Active confirmed Problem Acute bronchitis (39975199) Acute bronchitis (J20.9) Active confirmed Problem Sciatica (40190017) Sciatica (M54.30) Active co nfirmed Problem Cellulitis (792785502) Cellulitis (L03.90) Active confirmed Problem Alopecia (78072446) Hair loss (L65.9) Active co nfirmed Problem Seasonal allergic rhinitis (214784067) Seasonal allergic rhinitis (J30.2) Active confirmed Problem Pain of left hand (503399192455117) Left hand pain (M79.642) Active confirmed Problem Vitamin B12 deficiency (non anemic) (18014536) B12 deficiency (E53.8) Active confirmed Problem Foot ulcer due to type 2 diabetes mellitus (0609263669331) Type 2 diabetes mellitus with foot ulcer (E11.621) Active confirmed Problem Lumbosacral radiculopathy (0306656) Lumbosacral neuritis (M54.17) Active confirmed Problem Osteoarthritis (866304053) Osteoarthritis, unspecified osteoarthritis type, unspecified site (M19.90) Active confirmed Problem Pain in limb (90254244) Pain in left lower leg (M79.662) Active confirmed Problem Acute sinusitis (54722477) Acute sinus infection (J01.90) Active confirmed Problem Overweight (918366406) Over weight (E66.3) Active confirmed Problem Dyshidrotic eczema (629642449) Dyshidrotic eczema (L30.1) Active confirmed Problem Ankylosing spondylitis (6855876) Ankylosing spondylitis (M45.9) Active confirmed Problem Nevus (0811507957) Nevus (D22.9) Active confirm ed Problem Ankle edema (40571871) Ankle edema (R60.0) Active confirmed Problem Acute gastroenteritis (24683470) Acute gastroenteritis (K52.9) Active confirmed Problem Peripheral vascular disease (322754327) Other peripheral vascular disease (I73.89) Active confirmed Problem Lumbosacral spondylosis without myelopathy (64772088) Other osteoarthritis of spine, lumbar region (M47.896) Active confirmed Problem Delayed healing of surgical wound (finding) (823108110) Delayed surgical wound healing (T81.89XA) Active confirmed Problem Easy bruising (836657468) Easy bruising (R23.8) Active confirmed Problem Chronic venous insufficiency (37353008) Chronic venous insufficiency (I87.2) Active confirmed Problem Allergic arthritis (51733566) Allergic arthritis (M13.80) Active confirmed Problem Shoulder impingement syndrome (320816505) Shoulder impingement syndrome (M75.40) Active confirmed Problem At risk for falls (617542888) At risk for falls (Z91.81) Active confirmed Problem Vitamin B deficiency (89913159) Deficiency of vitamin B12 (E53.8) Active confirmed Problem Polyneuropathy due to type 2 diabetes mellitus (701009036) Diabetes mellitus with diabetic polyneuropathy (E11.42) Active confirmed Problem Ankle ulcer (590467899) Non-healing ulcer of ankle, right, with fat layer exposed (L97.312) Active confirmed Problem Avascular necrosis of head of humerus (370449393) Avascular necrosis of head of humerus (M87.029) Active confirmed Problem Pain co-occurrent and due to varicose veins of bilateral legs (72083379094379801) Varicose veins of leg with pain, bilateral (I83.813) Active confirmed Problem Decubitus ulcer of left foot, stage 2 (L89.892) Active confirmed Problem Arthritis of lumbosacral spine (933844775) Arthritis of lumbosacral spine (M47.817) Active confirmed Problem Peripheral venous insufficiency (77045448) Acute stasis dermatitis (I87.2) Active confirmed Problem Mixed anxiety and depressive disorder (670570593) Anxiety and depression (F41.8) Active confirmed Problem Decubitus ulcer of right ankle, stage 2 (L89.512) Active confirmed Problem Allergic arthritis of the pelvic region and thigh (921811807) Allergic arthritis of left hip (M13.852) Active confirmed Problem Decubitus ulcer of calf, stage 2, unspecified laterality (L89.892) Active confirmed Problem Bruising (318275341) Bruising (T14.8XXA) Active confirmed Problem Decubitus ulcer of right foot, stage 2 (L89.892) Active confirmed Problem Pressure ulcer o f toe of left foot, stage 2 (L89.892) Active confirmed Problem Pressure injury of right ankle, stage 1 (L89.511) Active confirmed Problem Ankle ulcer (797993633) Chronic ulcer of right ankle with fat layer exposed (L97.312) Active confirmed Problem Pressure injury of right ankle, stage 2 (L89.512) Active confirmed Problem Chronic ulcer of toe of right foot with fat layer exposed (L97.512) Active confirmed Problem Lumbar spinal stenosis (67598973) Lumbar spinal stenosis (M48.061) Active confirmed Problem Osteoarthritis of knee (718301789) Osteoarthritis of right knee (M17.11) Active confirmed Problem Acute embolism a nd thrombosis of right peroneal vein (I82.451) Active confirmed Problem Clostridial enteric disease (961701785) Clostridioides difficile diarrhea (A04.72) Active confirmed Problem COVID-19 (412556033) COVID-19 (U07.1) Active confirmed Problem Polyneuropathy due to type 2 diabetes mellitus (737575992) Controlled type 2 diabetes mellitus with diabetic polyneuropathy, unspecified whether terminal press operator insulin use (E11.42) Active confirmed Problem Herniation of rectum into vagina (126442651) Rectocele without uterine prolapse (N81.6) Active confirmed Problem Chronic ulcer of right foot (disorder) (67786298905533826) Chronic ulcer of right foot with fat layer exposed (L97.512) Active confirmed Problem Cough (finding) (67371533) Other cough (R05.8) Active confirmed Problem Thrombophlebitis of superficial veins of lower extremity (10030298) Thrombophlebitis of superficial vein of lower leg (I80.00) Active confirmed Vital Signs Heart Rate 77 /min 09/06/2024 Temperature 97.4 degrees Fahrenheit 09/06/2024 Oximetry 98 % 09/06/2024 Blood pressure diastolic 70 mm Hg 10/11/2024 Height 68 in 10/11/2024 Blood pressure systolic 142 mm Hg 10/11/2024 Weight 189.0 lbs 10/11/2024 BMI 28.73 kg/m2 10/11/2024 Encounters Encounter Location Date Provider Diagnosis [facility] [address] [place] [address] 07/29/2024 Nixon Hoy Type 2 diabetes mellitus with foot ulcer E11.621 ; Muscle spasm of back M62.830 and Lumbar post-laminectomy syndrome M96.[address] [address] 05/16/2024 Trisha Mcneil Influenza A J10.1 an d Left foot pain M79.[address] [address] 12/07/2023 Nixon Hoy Frequency of micturition R35.0 and Anxiety F41.[address] [address] 02/19/2024 Trisha Mcneil Deficiency of vitami n B12 E53.8 ; Bronchitis J40 and Cough R05.[address] [address] 08/12/2024 Nixon Hoy Frequent urination R35.0 ; Lumbar disc disease M51.9 and Lumbar post-laminectomy syndrome M96.[address] [address] 09/06/2024 Trisha Mcneil Sinusitis J32.[address] [address] 10/11/2024 Nixon Hoy Easy bruising R23.8 ; Muscle spasm of back M62.830 ; Hypertension I10 ; DJD (degenerative joint disease) M19.90 and Controlled type 2 diabetes mellitus with diabetic polyneuropathy, unspecified whether fpc insulin use E11.42 [facility] ([facility]) [address] [place] [address] [place] [address] 03/03/2024 Deepali Jansen Deficiency of vitami n B12 E53.8 ; Pain in right toe(s) M79.674 ; Pain in left toe(s) M79.675 and At risk for falls Z91.[address] [address] 03/25/2024 Nixon Hoy Deficiency of vitami n B12 E53.8 and Encounter for immunization Z23 [address] [address] 04/22/2024 Nixon Hoy Deficiency of vitami n B12 E53.8 [facility] [address] [place] [facility] [place] [address] 10/20/2023 Nixon Hoy Deficiency of vitami n B12 E53.8 [facility] [address] [place] [facility] [place] [address] 11/20/2023 Nixon Hoy Deficiency of vitami n B12 E53.8 [facility] [address] [place] [place] [address] 06/20/2024 Nixon Hoy Deficiency of vitami n B12 E53.8 [facility] [address] [place] [place] [address] 07/20/2024 Nixon Hoy Deficiency of vitami n B12 E53.8 [facility] [address] [place] [place] [address] 12/22/2023 Nixon Hoy Deficiency of vitami n B12 E53.8 [facility] [address] [place] [place] [address] 05/25/2024 Nixon Hoy Deficiency of vitami n B12 E53.8 [facility] [address] [place] [address] 01/19/2024 Nixon Hoy B12 deficiency E53.8 ; Hypertension I10 ; Hair loss L65.9 and Insomnia G47.00 [facility] [address] [place] [address] 10/19/2023 Nixon Hoy Insomnia G47.00 ; Type 2 diabetes mellitus with foot ulcer E11.621 ; Dyslipidemia E78.5 ; Encounter for Hemoccult screening Z12.11 ; Bruising T14.8XXA ; Encounter for drug therapy Z79.899 and Hypothyroidism E03.9 [facility] [address] [place] [place] [address] 10/20/2023 Nixon Hoy [facility] [address] [place] [place] [address] 10/27/2023 SARA HOY [facility] [address] [place] [facility] [place] [place] [address] 12/22/2023 Nixon Hoy [facility] [address] [place] [address] 02/09/2024 Nixon Hoy Urinary incontinence R32 [facility] [address] [place] [address] 02/16/2024 Trisha Mcneil [facility] [address] [place] [address] 02/29/2024 Nixon Hoy B12 deficiency E53.8 [facility] [address] [place] [address] 06/23/2024 Nixon Hoy B12 deficiency E53.8 [facility] [address] [place] [address] 06/28/2024 Nixon Hoy Influenza A J10.1 ; Bronchitis J40 and Frequency of micturition R35.0 [facility] [address] [place] [address] 07/29/2024 Nixon Hoy Arthritis of lumbosacral spine M47.817 and Other intervertebral disc displacement, lumbar region M51.26 [facility] [address] [place] [address] 08/12/2024 Nixon Tayy [facility] [address] [place] [address] 08/16/2024 Nixon Hoy [facility] [address] [place] [address] 10/11/2024 Nixon Tayy [address] [address] 10/11/2024 Nixon Tayy Screening for breast cancer Z12.39 Assessments Encounter Date Diagnosis (ICD Code) Assessment Notes Treatment Notes Treatment Clinical Notes Section Notes 10/20/2023 Deficiency of vitamin B12 (ICD-10 - E53.8) 11/20/2023 Deficiency of vitamin B12 (ICD-10 - E53.8) 12/07/2023 Frequency of micturition (ICD-10 - R35.0) 12/07/2023 Anxiety (ICD-10 - F41.9) 12/22/2023 Deficiency of vitamin B12 (ICD-10 - E53.8) 01/19/2024 B12 deficiency (ICD-10 - E53.8) 01/19/2024 Hypertension (ICD-10 - I10) disucsed BP - will come in next wek just to ch3eck 02/19/2024 Deficiency of vitamin B12 (ICD-10 - E53.8) 02/19/2024 Bronchitis (ICD-10 - J40) fu if not improving 03/03/2024 Deficiency of vitamin B12 (ICD-10 - E53.8) 03/03/2024 Pain in right toe(s) (ICD-10 - M79.674) 04/22/2024 Deficiency of vitamin B12 (ICD-10 - E53.8) 05/16/2024 Influenza A (ICD-10 - J10.1) rest push fluids 05/16/2024 Left foot pain (ICD-10 - M79.672) fu podiatry continue monitor if not improving with topical notify office 05/25/2024 Deficiency of vitamin B12 (ICD-10 - E53.8) 06/20/2024 Deficiency of vitamin B12 (ICD-10 - E53.8) 07/20/2024 Deficiency of vitamin B12 (ICD-10 - E53.8) 07/29/2024 Type 2 diabetes mellitus with foot ulcer (ICD-10 - E11.621) 07/29/2024 Muscle spasm of back (ICD-10 - M62.830) 03/25/2024 Deficiency of vitamin B12 (ICD-10 - E53.8) 08/12/2024 Frequent urination (ICD-10 - R35.0) 08/12/2024 Lumbar disc disease (ICD-10 - M51.9) 09/06/2024 Sinusitis (ICD-10 - J32.9) push fluids, rest if not improving, fu 10/11/2024 Easy bruising (ICD-10 - R23.8) 10/11/2024 Muscle spasm of back (ICD-10 - M62.830) 10/19/2023 Insomnia (ICD-10 - G47.00) 10/19/2023 Type 2 diabetes mellitus with foot ulcer (ICD-10 - E11.621) 02/09/2024 Urinary incontinence (ICD-10 - R32) 02/29/2024 B12 deficiency (ICD-10 - E53.8) 06/23/2024 B12 deficiency (ICD-10 - E53.8) 06/28/2024 Influenza A (ICD-10 - J10.1) 07/29/2024 Arthritis of lumbosacral spine (ICD-10 - M47.817) 07/29/2024 Other intervertebral disc displacement, lumbar region (ICD-10 - M51.26) 10/11/2024 Screening for breast cancer (ICD-10 - Z12.39) 06/28/2024 Bronchitis (ICD-10 - J40) 10/19/2023 Dyslipidemia (ICD-10 - E78.5) 10/11/2024 Hypertension (ICD-10 - I10) 08/12/2024 Lumbar post-laminectomy syndrome (ICD-10 - M96.1) 03/25/2024 Encounter for immunization (ICD-10 - Z23) 07/29/2024 Lumbar post-laminectomy syndrome (ICD-10 - M96.1) 03/03/2024 Pain in left toe(s) (ICD-10 - M79.675) 02/19/2024 Cough (ICD-10 - R05.9) 01/19/2024 Hair loss (ICD-10 - L65.9) 01/19/2024 Insomnia (ICD-10 - G47.00) 03/03/2024 At risk for falls (ICD-10 - Z91.81) 10/11/2024 DJD (degenerative joint disease) (ICD-10 - M19.90) 10/19/2023 Encounter for Hemoccult screening (ICD-10 - Z12.11) 06/28/2024 Frequency of micturition (ICD-10 - R35.0) 10/19/2023 Bruising (ICD-10 - T14.8XXA) 10/11/2024 Controlled type 2 diabetes mellitus with diabetic polyneuropathy, unspecified whether terminal press operator insulin use (ICD-10 - E11.42) 10/19/2023 Encounter for drug therapy (ICD-10 - Z79.899) 10/19/2023 Hypothyroidism (ICD-10 - E03.9) 07/29/2024 Other Recommended to rest and use a heating pad on the area. Take NSAIDs for pain as needed 08/12/2024 Other Recommended to rest and use a heating pad on the area. Take NSAIDs for pain as needed 09/06/[address] All carrasquillo LE discoloration Plan Of Treatment Pending Test Test Name Order Date CMP (COMPLETE METABOLIC PANEL) 4 UA (URINALYSIS, COMPLETE) 02/09/2024 HEMOGLOBIN A1C (GLYCO) 10/11/2024 IRON, TOTAL 10/11/2024 LIPID PANEL (CHOL/TRIG/HDL/LDL) 10/12/19 25 VITAMIN D, 25 LEVEL (TOTAL) 10/11/2024 Urinalysis Microscopic 05/22/2023 UA DIP NONAUTO WO MICRO (32927) - IN OFF ICE 12/07/2023 PT - INR 10/11/2024 COVID-19, Flu A+B IH 02/19/2024 STOOL OCCULT BLOOD 10/11/2024 CULTURE URINE 05/22/2023 CULTURE URINE 02/09/2024 OCC BLD IMMUNO SCREEN 10/19/2023 PTT 10/11/2024 VIT B12 AND FOLATE 01/19/2024 MRI LSPINE WO CON 01/07/2023 US KIDNEYS BLADDER 05/22/2023 XR SHOULDER LT 2V or > 07/20/2023 THYROID PANEL (T4/TSH/FREE T3) 5 THYROID PANEL (T4/TSH/FREE T3) 4 BI MAMMOGRAM SCREENING TOMOSYNTHESIS SAMI ATERAL 10/11/2024 CMP (COMP MET WALSH) w/eGFR CKD-EPI 2024 CBC WITH DIFF 10/11/2024 Insurance Providers Payer Name Payer Address Payer Phone Subscriber Number Group Number Insured Name Patient Relationship to Insured Coverage Start Date Coverage End Date [employer] [address] [place] [phone] [id number] Leelee Cedillo Self - patient is the insured Medications Administered Medication Instructions Date of Administration Dosage Notes Cyanocobalamin 01/20/2023 1 mL Cyanocobalamin 02/20/2023 1 mL Cyanocobalamin 03/26/2023 1 mL Cyanocobalamin 04/22/2023 1 mL Cyanocobalamin 05/22/2023 1 mL Cyanocobalamin 06/19/2023 1 mL Cyanocobalamin 07/20/2023 1 mL Cyanocobalamin 08/20/2023 1 mL Cyanocobalamin 09/21/2023 1 mL Cyanocobalamin 10/20/2023 1 mL Cyanocobalamin 11/20/2023 1 mL Cyanocobalamin 12/22/2023 1 mL Cyanocobalamin 01/19/2024 1 mL Cyanocobalamin 02/19/2024 1 mL Cyanocobalamin 03/25/2024 1 mL Cyanocobalamin 04/22/2024 1 mL Cyanocobalamin 05/25/2024 1 mL Cyanocobalamin 06/20/2024 1 mL Cyanocobalamin 07/20/2024 1 mL Kenalog-40 11/12/2022 80 mg 80 Kenalog-40 12/31/2022 120 mg Kenalog-40 01/07/2023 120 mg 120 Kenalog-40 07/20/2023 120 mg Ketorolac Tromethamine 08/25/2022 60 mg 60 Ketorolac Tromethamine 11/12/2022 60 mg 60 Ketorolac Tromethamine 12/31/2022 60 mg Ketorolac Tromethamine 01/07/2023 60 mg 60 Ketorolac Tromethamine 07/20/2023 60 mg 60 Ketorolac Tromethamine 07/29/2024 60 mg Ketorolac Tromethamine 08/12/2024 60 mg Orphenadrine Citrate 08/25/2022 60 mg 60 Orphenadrine Citrate 11/12/2022 60 mg 60 Orphenadrine Citrate 12/31/2022 60 mg Orphenadrine Citrate 01/07/2023 60 mg 60 Orphenadrine Citrate 07/20/2023 60 mg 60 Orphenadrine Citrate 07/29/2024 60 mg Orphenadrine Citrate 08/12/2024 60 mg Triamcinolone 40 mg/ml 07/29/2024 120 mg Triamcinolone 40 mg/ml 08/12/2024 120 mg Medical (General) History Medical History History ICD Code HTN Thyroid DJD (degenerative joint disease) M19.90 Avascular necrosis of head of humerus M8 7.029 Edema R60.9 Lumbar spinal stenosis M48.061 Sciatica M54.30 Lumbar disc disease M51.9 Dyshidrotic eczema L30.1 Ankylosing spondylitis M45.9 Other peripheral vascular disease I73.89 Rectocele without uterine prolapse N81.6 Hypertension I10 Seasonal allergic rhinitis J30.2 Anxiety and depression F41.8 Insomnia G47.00 Thrombophlebitis of superficial vein of lower leg I80.00 Muscle spasm of back M62.830 Acute embolism and thrombosis of right p eroneal vein I82.451 Varicose vein I86.8 Unspecified skin changes R23.9 Cellulitis L03.90 Over weight E66.3 Allergic arthritis of left hip M13.852 Shoulder impingement syndrome M75.40 Hair loss L65.9 Other cough R05.8 Pharyngitis J02.9 Dyspnea R06.00 COVID-19 U07.1 Other peripheral vertigo, unspecified ea r H81.399 Contact with and (suspected) exposure to other viral communicable diseases Z20.828 Pain in left lower leg M79.662 Nevus D22.9 Osteoarthritis, unspecified osteoarthrit is type, unspecified site M19.90 Acute bronchitis J20.9 Clostridioides difficile diarrhea A04.72 Deficiency of vitamin B12 E53.8 Ankle edema R60.0 Acute gastroenteritis K52.9 Left hand pain M79.642 At risk for falls Z91.81 Lumbar post-laminectomy syndrome M96.1 Bruising T14.8XXA Varicose veins of leg with pain, bilater al I83.813 Chronic venous insufficiency I87.2 Hypothyroidism E03.9 Osteoarthritis of right knee M17.11 Other osteoarthritis of spine, lumbar re gion M47.896 Lumbosacral neuritis M54.17 Disc displacement, lumbar M51.26 Ischemia I99.8 Surgical History Surgery Date(Month/Year) Lumbar Epidural Steroid injection, Dr. Randall carmona Ablation Left Varicose Veins 06/19/22 Venous Ablation 06/03/22 Laser Ablation small Saphenous vein, rt 05/21/22 Total Knee Rt 05/10 Revision Fusion T11-L4 Meniscus Repair, Rt 2011 Rotator Cuff Repair, rt 2010 cataract surgery 05/2021 spine surgery 12/2018 Skin Substitute with excisional biopsy- right ankle/foot 08/10 Carpal Tunnel Release 07/03/10 D&C 02/09/14 Excision of Ganglion Cyst 2011 Knee Arthroscopy, Rt 2011 Cholecystectomy 2007 Hospitalization History Reason Date(Month/Year) Hip dislocation 11/22 Multiple times for surgeries Seizure activity- 08/10
--- OUTSIDE RECORDS SUMMARY | 2024-10-12 08:33 | XMS_ITS ---
Author Organization [facility] Care Team Providers Care Cripple Worker Name Role Phone Hortensia Eugene Unavailable Unavailable Lorenzo Ellis Unavailable Unavailable Leo Soria Unavailable Unavailable Aidan, Lorena Unavailable Unavailable McNall-Vanita, Lucinda L Unavailable Unavailable DeNicola, Harshil Unavailable Unavailable Munjapara, Valdominga Unavailable Unavailable Tressa Polk Unavailable Unavailabl e Allergies and adverse reactions Code CodeSystem Substance Reaction Severity StartDate Concern Status 559478182 SNOMED CT Sulfa Antibiotics Unknown 06/18/2017 active Care Team Name Role Address Phone Organization Dates Praveen Lopez PCP [address], [place], [place], [facility], [place] (Office): : : [facility] 06/19/2017 - 06/20/2017 Hortensia Eugene [place] [address] [place], [place], [facility], [facility] (Office): : [facility] 06/19/2017 - 06/20/2017 Lorenzo Perse [place] [id number], [address], [place] (Office): : : [facility] 06/19/2017 - 06/20/2017 Leo Pandyarley [address] [place], [address], [place] (Office): [facility] 06/19/2017 - 06/20/2017 Lorena Aidan [place] [facility] [place] [address] [place], [place], [facility], [facility] (Office): : [facility] 06/19/2017 - 06/20/2017 Lucinda Khan [address] [address] [place] [address], [place], [place], [facility], [facility] (Office): : [facility] 06/19/2017 - 06/20/2017 Harshil Feliciano [address] [facility] [place] [address], [facility], [facility] (Office): : [facility] 06/19/2017 - 06/20/2017 Tressa Polk [address] [address] [place] [address], [place], [place], [facility], [place] (Office): : [facility] 06/19/2017 - 06/20/2017 Immunizations Immunization Status Vaccine Details Vaccine Code CodeSystem Date Notes Influenza completed Influenza, split virus, trivalent, injectable, contains preservative 141 CVX created date: 06/22/2017 administer ed date: 04/19/2017 Had in 2017 Pneumovax Dose 1 completed pneumococcal polysaccharide vaccine, 23 valent 33 CVX created date: 06/22/2017 administer ed date: 04/19/2017 Had in 2017 TB 2 Step Mantoux Skin Test completed tuberculin skin test; unspecified formulation lotNumber: [id number] expiry: 11/18/2018 Given 0.1 ml Left Forearm intradermally Step 1 of Multi-step 98 CVX created date: 06/19/2017 consent date: 06/19/2017 administer ed date: 06/19/2017 discharged prior to reading Mental Status Section Date Assessment Total Score Description 06/20/2017 BIMS 13 cognitively int act CAM 0 No delirium ind icated PHQ-9 01 minimal depress ion Problems Problem # Description Date of onset Resolved Date Code CodeSystem Concern Status 1 GASTRO-ESOPHAGEAL REFLUX DISEASE WITHOUT ESOPHAGITIS 06/20/[address] active 2 UNSPECIFIED OSTEOARTHRITIS, UNSPECIFIED SITE 06/20/[address] active 3 ACQUIRED ABSENCE OF OTHER SPECIFIED PARTS OF DIGESTIVE TRACT 06/18/[address] active 4 CONSTIPATION, UNSPECIFIED 06/18/[address] active 5 DORSALGIA, UNSPECIFIED 06/18/[address] active 6 ENCOUNTER FOR OTHER ORTHOPEDIC AFTERCARE 06/18/[address] active 7 ESSENTIAL (PRIMARY) HYPERTENSION 06/18/[address] active 8 HYPERLIPIDEMIA, UNSPECIFIED 06/18/[address] active 9 HYPOTHYROIDISM, UNSPECIFIED 06/18/[address] active 10 MUSCLE WEAKNESS (GENERALIZED) 06/18/[address] active 11 OBESITY, UNSPECIFIED 06/18/[address] active 12 OVERACTIVE BLADDER 06/18/2017 988321300 SNOMED C T active 13 PRESENCE OF LEFT ARTIFICIAL HIP JOINT 06/18/[address] active 14 RADICULOPATHY, LUMBAR REGION 06/18/[address] active 15 SPONDYLOSIS WITHOUT MYELOPATHY OR RADICULOPATHY, LUMBAR REGION 06/18/[address] active Reason for Referral No Reasons for Referral Entered Social History Social History Observation Description Start Date End Date Code Code System Current Smoking Status Tobacco smoking consumption unknown 489580802 SNOMED CT Sex Assigned At Female 1950 93728-9 LOINC Gender Identity Vital Signs Code Code System Vitals Name Values and Units Timing Information 11576-6 LOINC Pain Level Value=0.0 06/20/2017 9279-1 [facility] Respiratory Rate Value=20.0 Units=/m in 06/20/2017 8462-4 [facility] Blood Pressure-Diastolic Value=78 Un its=mmHg 06/20/2017 8480-6 [facility] Blood Pressure-Systolic Cepzb=027 Un its=mmHg 06/20/2017 8310-5 [facility] Body Temperature Value=98.1 Units= F 06/20/2017 8867-4 [facility] Heart rate Value=90.0 Units=/min 06/2017 44532-0 [facility] O2 % dC Oximetry Value=99.0 Units= % 06/20/2017 8302-2 [facility] Height Value=69.0 Units=Inches 06/19/2017 70569-3 [facility] Weight Kjiuo=774.6 Units=Lbs 05/2017
--- OUTSIDE RECORDS SUMMARY | 2024-10-12 08:33 | XMS_ITS | Clinical Summary ---
Author Organization [facility] Address [address] [place], [place] [address] Care Team Providers Care Public Area Attendant Name Role Phone Leander Carrizales MD Primary Care Provider [phone] Allergies Active Allergy Reactions Criticality Noted Date Comments Sulfa (Sulfonamide Antibiotics) 06/19 Medications losartan 100 mg ORAL tablet Take 1 tablet by mouth once daily. 0 06/18/2011 Active levothyroxine (SYNTHROID) 125 mcg tablet Take 1 tablet by mouth once daily. 90 tablet 3 07/03/[address] (PROTONIX) 40 mg tablet Take 40 mg by mouth once daily. Active gabapentin (NEURONTIN) 600 mg tablet Take 600 mg by mouth twice daily. Active diclofenac, EC, (VOLTAREN) 75 mg EC tablet Take 75 mg by mouth twice daily. Active tiZANidine HCl 4 mg capsule Take 4 mg by mouth daily at bedtime. Active Active Problems Problem Noted Date Diagnosed Date Unspecified essential hypertension 01/07/2017 Overview (01/07/2017): Essential hypertension Fracture closed, fibula, shaft 01/07/2017 Overview (01/07/2017): and ankle. 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 Other specified acquired hypothyroidism 06/18/19 12 Obesity 06/18/2011 Hair loss 06/18/2011 Family History Medical History Relation Comments Diabetes Brother 1 Hypertension Brother 1 Diabetes Brother 2 None Brother 3 Brain aneurysm Daughter 1 age 27 None Daughter 2 COPD Father age 75 Breast Cancer Mother age 52 Relation Status Comments Brother 1 Brother 2 Brother 3 Daughter 1 Daughter 2 Father Mother Social History Tobacco Use Types Packs/Day Years Used Date Smoking Tobacco: Never Tobacco Cessation:Counseling Given: Not Answered Alcohol Use Standard Drinks/Week Comments Yes 6 (1 standard drink = 0.6 oz pur e alcohol) Area Deprivation Index Answer Date Doron rded National Score (1-100), lower number is lower ri sk 62 06/24/2023 State Score (1-10), lower number is lower risk 4 06/24/2023 Data from: https://www.neighborhoodatlas.medicine.[facility].edu/. 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 Not on file Not on file [employer] presently Not on file Not on file Not on file Last Filed Vital Signs Vital Sign Reading Time Taken Comments Blood Pressure 115/56 06/24/2023 1:13 PM EST Pulse 93 06/24/2023 1:13 PM EST Temperature - - Respiratory Rate 18 06/24/2023 1:13 PM EST Oxygen Saturation 97% 06/24/2023 1:13 PM EST Inhaled Oxygen Concentration - - Weight 87.4 kg (192 lb 10.9 oz) 06/24/2023 1:13 PM EST Height 172.7 cm (5' 8 ) 06/24/2023 1:13 PM EST Body Mass Index 29.3 06/24/2023 1:13 PM EST Plan of Treatment Health Maintenance Due Date Last Done Comments Annual PCP Team Chronic Dise ase Visit 12/20/1969 Anxiety Screening 12/20/1969 Depression Screening 12/20/1969 DTaP,Tdap,Td Vaccine (1 - Tdap) 12/20/1970 CT Colonography 12/20/1996 Cologuard (FIT-DNA) 12/20/1996 Colonoscopy 12/20/1996 Colorectal Cancer Screening 12/20/1996 Fecal Occult Blood 12/20/1996 Lipid Screening 12/20/1996 Sigmoidoscopy 12/20/1996 Shingrix Vaccine (1 of 2) 12/20/2001 Diabetes Screening 06/17/2014 06/18/2011 Bone Density Screening 12/20/2016 Covid-19 Vaccine (5 - 2023-2 5 season) 2023 12/03/2021, 03/25/2021, 07/12/2020, Additional history exists Advance Directive Discussion 04/20/2024 Medicare Advantage Annual We llness Visit 04/20/2024 Mammogram Screening 08/04/2024 08/05/2023, 08/05/2023, 02/28/2022, Additional history exists Influenza Vaccine (Season Ended) 2024 02/11/2022, 02/08/2020, 02/23/2018, Additional history exists RSV Vaccine (1 - 1-dose 75+ series) 12/20/2026 Hepatitis C Screening Completed 07/01/2011 Pneumococcal Vaccine: 50+ Completed 2017, 04/19/2017, 02/24/2017, Additional history exists Procedures Procedure Name Priority Date/Time Associated Diagnosis Comments HEP REMOTE PANEL BL Routine 07/01/2011 1 2:59 PM EDT Uveitis, history COMPREHENSIVE METABOLIC PANEL Routine 06/18/2011 1:49 PM EST Memory changes from Last 3 Months or Most Recently Relevant to Health Maintenance Results * HEP REMOTE PANEL BL (07/01/2011 12:59 PM EDT) Hep B Core Ab, Total Negative NEGAT [facility] Hep C Antibody IA Negative NEGAT [facility] HBsAg Negative NEGAT [facility] Hep B Surface Ab, Qual Negative NEGAT [facility] Comment: A negative Hepatitis B Surface Antibody is indicative of: 1)no prior exposure to HBV, 2)lack of antibody response to an acute or chronic HBV infection, 3)lack of antibody response to HBV vaccination, or, 4)loss of immunity that followed either vaccination or infection. Blood specimen (specimen) BLOOD SPECIMEN / Unknown 07/01/2011 12:59 PM EDT 07/01/2011 1:22 PM EDT us Daniele Renae MD LABORATORY Final Resul t [facility] [address] [place] [address] * COMP METABOLIC PANEL (06/18/2011 1:49 PM EST) Protein, Total 7.4 6.0 - 8.4 g/dL [facility] Albumin 4.1 3.5 - 5.0 g/dL [facility] Calcium 9.4 8.5 - 10.5 mg/dL [facility] Bilirubin, Total 0.2 0.0 - 1.5 mg/dL [facility] Alkaline Phosphatase 75 40 - 150 U/L [facility] AST 23 7 - 40 U/L [facility] Glucose 90 65 - 100 mg/dL [facility] BUN 12 8 - 25 mg/dL [facility] Creatinine 0.80 0.70 - 1.40 mg/dL [facility] Sodium 140 132 - 148 mmol/L [facility] Potassium 3.9 3.5 - 5.0 mmol/L [facility] Chloride 106 98 - 110 mmol/L [facility] CO2 25 23 - 32 mmol/L [facility] Anion Gap 9 0 - 15 mmol/L [facility] ALT 16 0 - 45 U/L [facility] eGFR- >60 [facility] eGFR-All Other Races >[address] [facility] Comment: eGFR (Estimated GFR) Units of measure: mL/min/1.73 meters squared eGFR is derived from the reexpressed MDRD Study equation using the following parameters: serum creatinine, age, gender and race. The creatinine assay has been calibrated to be traceable to [employer]. An eGFR <60 mL/min/1.73m2 for >3 months is consistent with chronic kidney disease. Refer to KDOQI guidelines for clinical interpretation. Blood specimen (specimen) BLOOD SPECIMEN / Unknown 06/18/2011 1:49 PM EST 06/18/2011 2:03 PM EST us Rey Wu Tristanbalbir LABORATORY Final Result [facility] [address] [place] [address] from Last 3 Months or Most Recently Relevant to Health Maintenance Insurance [facility] [employer] Care Teams Public Area Attendant Relationship Specialty Start Date End Date Leander Carrizales MD PCP - General Family Medicine 06/09/11
--- OUTSIDE RECORDS SUMMARY | 2024-10-12 08:33 | XMS_ITS | Clinical Summary ---
Author Organization [employer] [facility] Address [id number] [address] [place] [address] Care Team Providers Care Bessemer Converter Operator Name Role Phone Unavailable Primary Care Provider Unavailabl e Allergies Active Allergy Reactions Criticality Noted Date Comments Metronidazole Nausea And Vomiting Medium 09/18/2022 Sulfa (Sulfonamide Antibiotics) 07/16/2006 Other Reaction(s): Rash Sulfacetamide Rash High 09/18/2022 Medications losartan (COZAAR) 100 mg tablet Take 1 tablet (100 mg total) by mouth in the morning. Active levothyroxine (SYNTHROID, LEVOTHROID) 125 MCG tablet Take 1 tablet (125 mcg total) by mouth in the morning. Active pantoprazole (PROTONIX) 40 mg EC tablet Take 1 tablet (40 mg total) by mouth in the morning. Active gabapentin (NEURONTIN) 600 mg tablet Take 1 tablet (600 mg total) by mouth in the morning and 1 tablet (600 mg total) before bedtime. Active meloxicam (MOBIC) 15 mg tablet Take 1 tablet (15 mg total) by mouth in the morning. Active cholecalciferol , vitamin D3, 5,000 units tablet Take 1 tablet (5,000 Units total) by mouth in the morning. Active furosemide (LASIX) 20 mg tablet Take 1 tablet (20 mg total) by mouth every 14 (fourteen) days. Active cyanocobalamin 1000 MCG tablet Take 1 tablet (1,000 mcg total) by mouth in the morning. Active tiZANidine (ZANAFLEX) 4 mg tablet Take 1 tablet (4 mg total) by mouth in the morning. Active alendronate (FOSAMAX) 70 mg tablet Take 1 tablet (70 mg total) by mouth every 7 days. In a.m. with water on empty stomach, nothing else by mouth and remain upright for 30min Active collagenase (SANTYL) ointment Apply 1 Application topically in the morning. 30g. Active Social History Tobacco Use Types Packs/Day Years Used Date Smoking Tobacco: Never Smokeless Tobacco: Never Tobacco Cessation:Counseling Given: No Childcare Answer Date Recorded Childcare Unknown 09/29/2018 Employment Answer Date Recorded Employment Unknown 09/29/2018 Hunger Screening Answer Date Recorded Within the past 12 months we worried whether our food would run out before we got money to buy more. Never True 12/11/2022 Within the past 12 months th e food we bought just didn't last and we didn't have money to get more. Never True 12/11/2022 Comments Unknown Sex and Gender Information Value Date Recorded Sex Assigned at Not on file Legal Sex Female 12:12 PM EDT Gender Identity Not on file Sexual Orientation Not on file Last Filed Vital Signs Vital Sign Reading Time Taken Comments Blood Pressure 117/81 12/11/2022 11:57 AM EDT Pulse 100 12/11/2022 11:57 AM EDT Temperature - - Respiratory Rate - - Oxygen Saturation - - Inhaled Oxygen Concentration - - Weight 91.4 kg (201 lb 6.4 oz) 12/11/2022 11:55 AM EDT Height 174 cm (5' 8.5 ) 12/11/2022 11:55 AM EDT Body Mass Index 30.18 12/11/2022 11:55 AM EDT Plan of Treatment Health Maintenance Due Date Last Done Comments Depression Screening 1962 DTaP,Tdap and Td Vaccines (1 - Tdap) 12/20/1970 Zoster (Shingles) Vaccine (1 of 2) 12/20/2001 Fall Risk Screening 12/20/2016 Adult BMI Screening 12/12/2023 12/11/2022 Tobacco Screening 12/12/2023 12/11/2022 COVID-19 Vaccine ( - 2023-2 5 season) 2023 12/03/2021, 03/25/2021, 07/12/2020, Additional history exists Influenza Vaccine 12/19/2024 02/11/2022, , 02/23/2018, Additional history exists Medical Devices Not on file Insurance [facility] [place] [id number]
--- OUTSIDE RECORDS SUMMARY | 2024-10-12 08:33 | XMS_ITS | Clinical Summary ---
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 Active collagenase 250 UNIT/GM ointment Apply 1 Application topically in the morning. Active gabapentin (Neurontin) 600 MG tablet Take 600 mg by mouth in the morning and 600 mg in the evening. Active furosemide (Lasix) 20 MG tablet Take 20 mg by mouth every 14 (fourteen) days Active diclofenac (Voltaren) 75 MG EC tablet Take 75 mg by mouth in the morning and 75 mg in the evening. Active cyanocobalamin (Vitamin B-12) 1000 MCG tablet Take 1,000 mcg by mouth in the morning. Active losartan (Cozaar) 100 MG tablet 1 (one) time each day at the same time Active levothyroxine (Synthroid, Levoxyl) 125 MCG tablet Take 125 mcg by mouth in the morning. Active pantoprazole (ProtoNix) 40 MG EC tablet Take 40 mg by mouth in the morning. Active meloxicam (Mobic) 15 MG tablet every 12 (twelve) hours Active tiZANidine (Zanaflex) 4 MG capsule Take 4 mg by mouth Active cholecalciferol 25 MCG (1000 UT) capsule Vitamin D3 Active cyanocobalamin (Vitamin B-12) 100 MCG tablet Vitamin B12 Act jane Accu-Chek Guide test strip 3 Active HYDROcodone-jonnie taminophen ([place]) 5-325 MG tablet TAKE 1 TABLET BY MOUTH ONCE DAILY NEEDED 4 Active Accu-Chek FastClix Lancets misc 4 Active levoFLOXacin (Levaquin) 750 MG tablet TAKE 1 TABLET BY MOUTH ONCE DAILY FOR 10 DAYS 4 Active lidocaine (Lidoderm) 5 % patch APPLY ONE PATCH TOPICALLY TO CLEAN, DRY SKIN. LEAVE ON FOR 12 HOURS THEN REMOVE. MUST WAIT AT LEAST 12 HOURS BEFORE APPLYING PATCH(ES) AGAIN. 3 Active senna (Senokot) 8.6 MG tablet Take 1 tablet by mouth 2 (two) times a day as needed for constipation 3 Active B-D 3CC LUER-OMAR SYR 22GX1 22G X 1 3 ML [facility] USE TO INJECT VITAMIN B-12 MONTHLY 3 Active Family History Medical History Relation Name Comments Emphysema Father Cancer Mother Relation Name Status Comments Father Mother Social History Tobacco Use Types Packs/Day Years Used Date Smoking Tobacco: Never Smokeless Tobacco: Never Tobacco Cessation:Counseling Given: Not Answered Alcohol Use Standard Drinks/Week Comments Yes 1 (1 standard drink = 0.6 oz pur e alcohol) Comments No Sex and Gender Information Value Date Recorded Sex Assigned at Not on file Legal Sex Female 6:58 PM EDT Gender Identity Not on file Sexual Orientation Not on file Last Filed Vital Signs Vital Sign Reading Time Taken Comments Blood Pressure 122/80 06/29/2023 11:45 AM EDT Pulse - - Temperature - - Respiratory Rate - - Oxygen Saturation - - Inhaled Oxygen Concentration - - Weight 88.2 kg (194 lb 6.4 oz) 06/29/2023 11:45 AM EDT Height 175.3 cm (5' 9 ) 03/18/2022 12:00 PM EST Body Mass Index 28.71 03/18/2022 12:00 PM EST Plan of Treatment Upcoming Encounters Date Type Department Care Team (Late st Contact Info) Description 07/03/2025 10:30 AM EDT Office Visit [facility] [address] KATEL[place] D [address] [address] Brianna Barrios DO [address] [address] Health Maintenance Due Date Last Done Comments CT Colonography 1950 Colonoscopy 1950 Colorectal Cancer Screening 1950 FIT-DNA 1950 FIT 1950 FOBT 1950 Sigmoidoscopy 1950 Mammogram 08/04/2024 08/05/2023, 02/18, 02/26/2021, Additional history exists Influenza Vaccine (Season Ended) 2024 02/11/2022, 02/08/2020, 02/23/2018, Additional history exists Pneumococcal Vaccine: 65+ Years Completed 04/19/2017, 02/24/2017, 02/05/2017 Procedures Procedure Name Priority Date/Time Associated Diagnosis Comments BI MAMMOGRAM SCREENING TOMOSYNTHESIS BILATERAL Routine 08/05/2023 11:22 AM EDT Other screening mammogram from Last 3 Months or Most Recently Relevant to Health Maintenance Results * Bilateral screening mammogram with tomosynthesis (08/05/2023 11:22 AM EDT) Anatomical Region Laterality Modality Breast Bilateral Mammography 08/05/2023 12:0 1 PM EDT Impressions 08/05/2023 12:09 PM EDT BI-RADS 1- NEGATIVE. ROUTINE FOLLOW-UP MAMMOGRAPHY IS SUGGESTED IN ONE YEAR. DENSITY: Scattered fibroglandular densities. Board Certified Radiologists. Accredited by the ACR and FDA. MAMMOGRAPHY IS VERY IMPORTANT TO YOUR HEALTH. THE [place] [employer] GUIDELINES RECOMMEND THAT WOMEN 40 YEARS OF AGE AND OLDER SHOULD HAVE A MAMMOGRAM EVERY YEAR. A REMINDER LETTER WILL BE SENT AT THE APPROPRIATE TIME. ELECTRONICALLY SIGNED BY: DO Magda Conklin 08/05/2023 12:09 PM EDT BI MAMMOGRAM SCREENING TOMOSYNTHESIS BILATERAL:08/05/2023 11:05 AM [...] identified, given differences in technique and positioning. us Scott Vasquez MD IMG BI PROCEDURES Final Result from Last 3 Months or Most Recently Relevant to Health Maintenance Insurance [id number] [employer] Care Teams Auto Clocks Repairer Relationship Specialty Start Date End Date Leander Carrizales MD PCP - General Family Medicine 06/11/23
--- OUTSIDE RECORDS SUMMARY | 2024-10-12 08:51 | XMS_ITS | CCD ---
Author Organization [facility] Cook123[facility] Care Team Providers Care Warp Tier Name Role Phone Praveen Lopez Unavailable Unavailable PHYSICIAN, DEFAULT Unavailable Unavailable PHYSICIAN, DEFAULT Unavailable Unavailable SARA VICK Unavailable Unavailable Sara Vick~[phone] UNKNOWN Admitting Unavailable Sara Vick~[phone] UNKNOWN Attending Unavailable Sara Vick~[phone] UNKNOWN Referring Unavailable Sara Vick Primary Care Provider Trino Yoo Attending Provider [phone] Larry Brown Unavailable Sara Vick Primary [...] DR ALFRED Deal Consulting Unavailable WEST, DR ALRFED Deal Admitting Unavailable HOY ., DR RUIZ [...] Unavailable Sara Vick MD Primary Care Provider [phone] Julio Ferrara Consulting Unavailable Francisco Alcazar S Admitting Unavailable Francisco Alcazar S Attending Unavailable [place], Julio Consulting Unavailable [place], Julio Consulting Unavailable [place], Julio Consulting Unavailable [place], Julio Consulting Unavailable [place], Julio Consulting Unavailable [place], Julio Consulting Unavailable [place], Julio Consulting Unavailable [place], Julio Consulting Unavailable Wm Nagy Attending Unavailable [...] [phone] HAILEY Jansen Attending Provider [phone] MD Kiran Kessler Attending Provider ANNIE JIMENEZ [...] Sulfonamides (Antibiotic) Drug allergy (disorder) 08-02-19 10 [facility] Repository (4 sources) Sulfamethoxazole; Translations: [sulfamethoxazole ] Drug Allergy Cutaneous eruption (morphologic abnormality) [facility] Repository (2 sources) Sulfur; Translations: [Sulfur] Drug Allergy [facility] Repository (11 sources) Sulfonamides (Antibiotic); Translations: [Sulfa (Sulfonamide Antibiotics)] Allergy to substance 07-17-19 07 Rash [facility] (17 sources) Sulfacetamide Drug Allergy 09-19-19 23 i[facility]gree Other (2 sources) metroNIDAZOLE Drug Allergy 09-19-19 23 Dyspepsia [facility] (1 source) Sulfacetamide Drug Allergy 07-01-19 24 [facility] Repository Medications Current Medications Medication Drug [...] for 30 days Dec, Active Start: 03-08-2022 [place] 325 mg-5 mg oral tablet 1 tab(s), Oral, q4hr for pain, 12 tab(s), Refill(s) 0, [facility]/pharmacy #[id number], 172, cm, 03/08/22 13:49:00 [...] Daily, # 30 tab(s), Refills(s) 0, Pharmacy: [facility]/pharmacy #[id number], 172.7, cm, 07/26/22 11:43:00 [...] 9:00:00 take 1 capsule by mo [facility] every twenty-four hours Vitamin D3 [...] 1:00am Start: 06-19-2017 take 1 tablet by [facility] once daily Pantoprazole Sodium Tablet [...] Start: 07-26-2022 take 2 tablets by mo [facility] every eight hours as needed for muscle spasms tiZANidine 4 mg Tab 8 mg = 2 tab(s), Oral, q8hr, PRN Spasm, Refills(s) 0 Start Date: 07/26/22 Status: Ordered Start: 06-19-2017 take 2 tablets by mo [facility] twice daily Zanaflex Tablet 4 MG 2 tablet Tablet Oral GIVE 2 TABS (8MG) BY MOUTH TWICE DAILY FOR MUSCLOSKELETAL 06/19/2017 9:00:00 take 1 capsule by [facility] once daily at bedtime tiZANidine HCl 4 mg capsule Take 4 mg by mouth daily at bedtime. 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 Head Porter [facility] Transcribe Date/Time: Aug 08 2023 9:09P Dictated by : HARRY JONES MD This examination was interpreted and the report reviewed and electronically signed by: HARRY JONES MD on Aug 08 2023 9:14PM EST [id number] Normal [facility] BI MAMMOGRAM SCREENING TOMOS YNTHESIS [...] IS VERY IMPORTANT TO YOUR HEALTH. THE [employer] GUIDELINES RECOMMEND THAT WOMEN 40 [...] are 5 lumbar-type vertebrae. Anatomic variant: None. 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 Alignment: Mild [...] any questions regarding this interpretation, please call [phone]. If you are unable to reach us at the number above, please feel free to contact [facility] eRadiology at [phone]. [id number] Normal [facility] CT Lumbar spine WO contrasto n 07-13-2023 [facility] CNOVon 06-24-2023 CNOV Office Visit (SPNSMN ) LEELEE CEDILLO ([id number]) 1950 F Date Time Provider Department 06/24/23 [...] Ghanshyam Lombardi MD Referring Provider: SARA VICK [[id number]] Allergies As of Date: 06/24/2023 Noted Allergy Reaction SULFA (SULFONAMIDE ANTIBIOTICS) 07/16/2006 Date Reviewed: 06/24/2023 Reviewed by: Kaur Manzano MA - Fully Assessed Reason for Visit: New Patient [172] Primary Visit Diagnosis:Adjacent segment disease of lumbar spine with history of fusion procedure [M51.36, Z98.1] Other Visit Diagnosis:Chronic bilateral low back pain with bilateral sciatica [M54.42, M54.41, G89.29] Order(s):MRI THORACIC SPINE WO IVCON [[id number]] Order #: [id number] FUTURE CT LUMBAR SPINE WO IVCON [[id number]] Order #: [id number] FUTURE Prescriptions as of 06/24/2023 - pantoprazole [...] Status:Closed by GHANSHYAM LOMBARDI on 06/24/23 Normal [facility] XR LUMBAR 4V AP/LAT/ FLEX/EX [...] Number of different views (projections): 2 (accession [id number]), 4 (accession [id number]) COMPARISON: Radiographs dated 09/23/2021 RESULT: Counting reference: [...] changes with no evidence of hardware complication. Head Porter Baggage: [facility] Transcribe Date/Time: Jun 24 2023 12:52P Dictated by : LATASHA QUEZADA MD This examination was interpreted and the report reviewed and electronically signed by: LATASHA QUEZADA MD on Jun 24 2023 12:55PM EST [id number] Normal [facility] XR Lumbar spine Views W flex ion and W extensionon 06-24-2023 [facility] XR SCOLIOSIS 2V PA STAND/LAT [...] Number of different views (projections): 2 (accession [id number]), 4 (accession [id number]) COMPARISON: Radiographs dated 09/23/2021 RESULT: Counting reference: [...] changes with no evidence of hardware complication. Head Porter Baggage: PSCB Transcribe Date/Time: Jun 24 2023 12:52P Dictated by : LATASHA QUEZADA MD This examination was interpreted and the report reviewed and electronically signed by: LATASHA QUEZADA MD on Jun 24 2023 12:55PM EST [id number] Normal [facility] XR Thoracic and lumbar spine Views for scoliosis W standingon 06-24-2023 [facility] US arterial pvr rest Vito US arterial pvr rest [facility] [place] [address] Ultrasound Report Signed Patient: Leelee Cedillo MR#: [id number] 56 : 1950 Acct:[id number] Age/Sex: 72 / F ADM Date: 05/22/23 [...] Drake Bates M.D.05/25/2023 10:58 AM Dictation Location: [place] [address] Tech: Katy Leone Transcribed By: LISBETH 05/25/23 1058 Dictated By: Drake Bates MD 05/25/23 1057 Signed By: 05/25/23 1058 Normal [facility] US venous duplex LE BIon US venous duplex LE BI [facility] [place] [address] Ultrasound Report Signed Patient: Leelee Cedillo MR#: [id number] 56 : 1950 Acct:[id number] Age/Sex: 72 / F ADM Date: 05/22/23 Loc: UL Room: Type: DEP CLI Attending Dr: Kiran Ksesler MD Ordering Provider: Kiran Kessler MD Date [...] vein has previously been stripped. 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 The lesser saphenous vein [...] Drake Bates M.D.05/25/2023 10:57 AM Dictation Location: [place] [address] Tech: Katy Leone Transcribed By: LISBETH 05/25/23 1057 Dictated By: Drake Bates MD 05/25/23 1055 Signed By: 05/25/23 1057 Normal [facility] ED Note-Physicianon 11-26-19 ED Note-Physician Normal [facility] Comment on above: Result Comment: Elec tronically Signed By: Sathya De La O PA-C\.br\Date and Time Signed: 11/22/22 14:13 EDT\.br\Electronically Co-Signed By: Flavio Castillo MD\.br\Date and Time Co-Signed: 11/25/22 13:23 EDT Consent for Treatmenton Consent for Treatment [id number]#1.0 0CD:127 Normal [facility] Discharge Instructionson Discharge Instructions [id number]#1. 00CD:127 Normal [facility] ED Clinical Summaryon 2022 ED Clinical Summary Normal Stefania wu [facility] ED Patient Education Noteon 11-22-2022 ED Patient Education Note Normal [facility] ED Patient Summaryon 023 ED Patient Summary Normal [facility] Neurology Forms- Texton Neurology Forms- Text [id number]#1. 00CD:127 Normal [facility] EEGon 09-11-2022 EEG [facility] Comment on above: Result Comment: Elec tronically Signed By: Jonathan Powell DO\.br\Date and Time Signed: 09/11/22 10:41 EDT Consent for Treatmenton 08-19 Consent for Treatment [id number]#1.0 0CD:127 Normal [facility] Physician Orderon 09-03-2022 Physician Order [id number]#1.0 0CD:127 Normal [facility] VC CONSULT FOLLOWUPon 2022 VC CONSULT FOLLOWUP Patient: ITZEL CEDILLO Exam Date: 08/08/2022 : 1950 Gender:F Ordering : DR ALFRED UMAÑA M.D. Admission #: [id number] Family : Order #: [id number] CLICK HERE TO VIEW EXAM RADIOLOGY REPORT [...] Umaña MD on 08/08/2022 at 10:59 Normal [facility] EXT VENOUS LT LIMITEDon 0 08-08-2022 VC EXT VENOUS LT LIMITED Patient: LEELEE CEDILLO Exam Date: 08/08/2022 : 1950 Gender:F Ordering : DR ALFRED UMAÑA M.D. Admission #: [id number] Family : Order #: [id number] CLICK HERE TO VIEW EXAM RADIOLOGY REPORT [...] Umaña MD on 08/08/2022 at 09:43 Normal [facility] Coding Summary.on 07-29-2022 Coding Summary. Normal [facility] Insurance Correspondenceon 0 07-29-2022 Insurance Correspondence [id number]#1.0 0CD:127 Normal [facility] Insurance Correspondence Off iceon 07-29-2022 Insurance Correspondence Office [id number]#1. 00CD:127 Normal [facility] Discharge Instructionson Discharge Instructions [id number]#1. 00CD:127 Normal [facility] [id number] 07-28-2022 HbA1c (Bld) [Mass fraction] 5.3 % Normal <=5.9 [facility] Comment on above: Performed By: #### 2 575418, 2696487, 9087285, 7377268, 046754170, 89009474 ####[facility] [address] [place] [address] Insurance Correspondenceon 0 07-28-2022 Insurance Correspondence [id number]#1. 00CD:127 Normal [facility] C. diff by PCRon 07-27-2022 Clostridium difficile by PCR Negative Normal Negative [facility] Comment on above: Order Comment: Order added by Discern Expert. Result Comment: This test result should be correlated with clinical presentations and medical history by a healthcare provider to determine its clinical significance. Performed By: #### 3 [id number], [id number], [id number] ####[facility] [address] [facility] [place] [address] CDiff PCRon 07-27-2022 Cdiff Specimen Acceptable Acceptable Normal [facility] Comment on above: Performed By: #### 3 [id number], [id number], [id number] ####[facility] [address] [facility] [place] [address] Order Cancelled No, PCR to follow Normal [facility] Comment on above: Performed By: #### 3 [id number], [id number], 734885948 ####[facility] [address] [place] [id number] CHEMISTRYOrdered By: SYSTEM SYSTEM on 07-27-2022 Anion [...] Remisol Consultation Noteon 07-28-19 Consultation Note Normal [facility] Comment on above: Result Comment: Elec tronically Signed By: Rachel MEEHAN, Smita Reardon\.br\Date and Time Signed: 07/27/22 07:14 EDT\.br\Electronically Co-Signed By: Jonathan Powell DO\.br\Date and Time Co-Signed: 07/27/22 10:23 EDT EMS Documentationon 07-28-19 EMS Documentation Normal [facility] EMS Documentation Normal [facility] EMS Documentation Normal [facility] Enteric Panel by PCRon 07-27 C. coli+jejuni+upsaliens is DNA VIVIANA+non-probe Ql (Stl) Not detected Normal [facility] Comment on above: Result Comment: Test ing was performed utilizing reverse resource conservation specialist (RT), polymerase chain reaction (PCR), and [...] nulcleic acid test. Performed By: #### 3 [id number], [id number], [id number] ####[place] [address] [place] [address] E. coli stx1+stx2 genes VIVIANA+non-probe Ql (Stl) Negative Normal [facility] Comment on above: Performed By: #### 3 [id number], [id number], 130146850 ####[place] [address] [place] [address] Enteric Panel Intrl QC Pass Normal [facility] Comment on above: Result Comment: Test ing was performed utilizing reverse resource conservation specialist (RT), polymerase chain reaction (PCR), and [...] 1 and 2. Performed By: #### 3 [id number], [id number], 877365181 ####[place] [address] Norovirus genogroup I+II RNA VIVIANA+non-probe Ql (Stl) Not detected Normal [facility] Comment on above: Performed By: #### 3 [id number], 7975073224, 999659124 ####[place] [address] Rotavirus A RNA VIVIANA+non-probe Ql (Stl) Not detected Normal [facility] Comment on above: Performed By: #### 3 [id number], 9457865836, 395989940 ####[place] [address] S. enterica+bongori DNA VIVIANA+non-probe Ql (Stl) Not detected Normal [facility] Comment on above: Result Comment: This test result should be correlated with clinical presentations and medical history by a healthcare provider to determine its clinical significance. Performed By: #### 3 [id number], 2252608783, [id number] ####[place] [address] Shigella species+EIEC invasion plasmid antigen H ipaH gene VIVIANA+non-probe Ql (Stl) Not detected Normal [facility] Comment on above: Performed By: #### 3 [id number], 6850961583, 712961916 ####[place] [address] V. cholerae+parahaemolyt icus+vulnificus DNA VIVIANA+non-probe Ql (Stl) Not detected Normal [facility] Comment on above: Performed By: #### 3 [id number], 9719745643, 939900675 ####[facility] [address] [place] [address] Y. enterocolitica DNA VIVIANA+non-probe Ql (Stl) Not detected Normal [facility] Comment on above: Performed By: #### 3 [id number], 9201667767, 381873789 ####[facility] [address] [place] [address] Free T4on 07-27-2022 Free T4 [Mass/Vol] 1.91 ng/dL High 0.58-1.64 [facility] Comment on above: Order Comment: Free T4 added by Discern Rule due to a TSH result of <0.34 or >5.60. Performed By: #### 2 068036, 9261821, 4081407, 7919625, 463162387, 37932906 ####[facility] [address] [place] [address] HEMATOLOGYOrdered By: Tonya Martin on 07-27-2022 WBC corrected for nucl RBC Auto (Bld) [#/Vol] 7.8 E9/L Normal 4.0 - 11.0 E9/L [facility] HemeAutoSS Inpatient Clinical Summaryon 07-27-2022 Inpatient Clinical Summary Normal [facility] Inpatient Patient Summaryon 07-27-2022 Inpatient Patient Summary Normal [facility] Inpatient Patient Summary Normal [facility] Interdisciplinary Note - Oumar e Manageron 07-27-2022 Interdisciplinary Note - Biblical Languages Professor Normal [facility] Comment on above: Result Comment: Elec tronically Signed By: Tonya Matias.alicja\Date and Time Signed: 07/27/22 12:04 EDT Interdisciplinary Note - Pipe n 07-27-2022 Interdisciplinary Note - OT Normal [facility] Interdisciplinary Note - PTo n 07-27-2022 Interdisciplinary Note - PT PT eval completed; pt scores 16/24 on the AM-PAC 6-Clicks 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 Pt is able to safely perform bed <> chair transfers as she was doing prior to admission and has no further PT needs at this time. Normal [facility] Lipid Panelon 07-27-2022 Cholesterol in LDL [Mass/Vol] 91 mg/dL Normal <=129 [facility] Comment on above: Performed By: #### 2 850336, 8854183, 9885127, 4571886, 080746215, 71092833 ####[facility] [address] [place] [address] Cholesterol [Mass/Vol] 160 mg/dL Normal 120-200 [facility] Comment on above: Performed By: #### 2 582270, 8895632, 1934809, 7603726, 279427832, 93029389 ####[facility] [address] [place] [address] Cholesterol in HDL [Mass/Vol] 52 mg/dL Invalid Interpretation Code [facility] Comment on above: Result Comment: HDL > or equal to 60 mg/dL: Low cardiovascular riskHDL < 40 mg/dL : High cardiovascular risk Performed By: #### 2 185352, 2039468, 0685754, 9285589, 802649803, 57802249 ####[facility] [address] [place] [address] Cholesterol in VLDL [Mass/Vol] 17 mg/dL Normal 7-40 [facility] Comment on above: Performed By: #### 2 917359, 5117468, 8310348, 6949752, 976985279, 15988517 ####[facility] [address] [place] [address] Triglyceride [Mass/Vol] 83 mg/dL Normal <=149 [facility] Comment on above: Performed By: #### 2 713216, 3862768, 2594307, 2179956, 111232472, 90488732 ####[facility] [address] [place] [address] Lyteson 07-27-2022 Anion gap [Moles/Vol] 9 mmol/L Normal 6-16 [facility] Comment on above: Performed By: #### 2 228881, 8079835, 8880823, 6072289, 547966718, 19499889 ####[facility] [address] [place] [address] Chloride [Moles/Vol] 106 mmol/L Normal 101-111 [facility] Comment on above: Performed By: #### 2 533030, 0048205, 2218683, 4317877, 324455689, 18260779 ####[facility] [address] [place] [address] CO2 [Moles/Vol] 26 mmol/L Normal 21-31 [facility] Comment on above: Performed By: #### 2 277179, 5818629, 2334953, 8732753, 867170884, 20442833 ####[facility] [address] [place] [address] Potassium [Moles/Vol] 4.0 mmol/L Normal 3.5-5.3 [facility] Comment on above: Performed By: #### 2 209452, 0672265, 6835697, 7644589, 894252892, 83754019 ####[facility] [address] [place] [address] Sodium [Moles/Vol] 137 mmol/L Normal 135-145 [facility] Comment on above: Performed By: #### 2 533407, 7747111, 9819651, 4407426, 185327521, 08383971 ####[facility] [address] [place] [address] MRA Head w/o Contraston MRA Head w/o Contrast Normal [facility] MRI Brain w/o Contraston MRI Brain w/o Contrast Normal [facility] Monitor Recordon 07-27-2022 Monitor Record [id number]#1. 00CD:127 Normal [facility] Monitor Record [id number]#1. 00CD:127 Normal [facility] Patient Education - Texton 0 07-27-2022 Patient Education - Text Normal [facility] RAD - MRI Screening Formon 0 07-27-2022 RAD - MRI Screening Form [id number]#1. 00CD:127 Normal [facility] TSH With T4fr Reflexon 07-27 TSH Qn 0.16 m[IU]/L Low 0.34-5.60 [facility] Comment on above: Performed By: #### 2 719965, 6669443, 7205454, 8572946, 717387461, 25101719 ####[facility] [address] [place] [address] Troponin 9 Hr.on 07-27-2022 Troponin I.cardiac [Mass/Vol] 6.70 pg/mL Low 10.10-27.10 [facility] Comment on above: Result Comment: The 95% CI (Confidence Interval) PPV (Positive Predictive Value) for myocardial infarction in females is 38 pg/mL, in males 51 pg/mL. The results should be used in conjunction with clinical conditions of myocardial infarction.(Access High Sensitivity Troponin I Instructions For Use, [employer], November 2017) Performed By: #### 1 [id number] ####[facility] [address] [place] [address] WBCon 07-27-2022 WBC corrected for nucl RBC Auto (Bld) [#/Vol] 7.8 E9/L Normal 4.0-11.0 [facility] Comment on above: Performed By: #### 2 825842, 4238766, 3407679, 0152063, 751619183, 70072259 ####[facility] [address] [place] [address] Auto Diffon 07-26-2022 Basophils/100 WBC (Bld) 0.5 % Normal 0.0-2.0 [facility] Comment on above: Order Comment: Order Added by Discern Expert. Performed By: #### 2 172058, 6666982, 3547239, 1488621, 90200867, 27343776 ####[facility] [address] [place] [address] Basophils/Leukocytes Auto (Bld) [Pure # fraction] 0.1 E9/L Normal 0.0-0.2 [facility] Comment on above: Order Comment: Order Added by Discern Expert. Performed By: #### 2 957936, 3927567, 4025552, 7605078, 99581252, 28476269 ####[facility] [address] [place] [address] Eosinophils/100 WBC (Bld) 0.5 % Normal 0.0-8.0 [facility] Comment on above: Order Comment: Order Added by Discern Expert. Performed By: #### 2 567039, 4074260, 2107078, 0284775, 13261078, 94200685 ####[address] [address] Eosinophils/Leukocyte s Auto (Bld) [Pure # fraction] 0.1 E9/L Normal 0.0-0.5 [facility] Comment on above: Order Comment: Order Added by Ham Expert. Performed By: #### 2 300009, 8325055, 6528402, 3155057, 48576392, 57821015 ####[address] [address] Lymphocytes/100 WBC (Bld) 14.5 % Normal 14.0-50.0 [facility] Comment on above: Order Comment: Order Added by Ham Expert. Performed By: #### 2 512828, 5352655, 9281603, 2230238, 18035291, 16627021 ####[address] [address] Lymphocytes/Leukocyte s Auto (Bld) [Pure # fraction] 2.1 E9/L Normal 1.0-4.0 [facility] Comment on above: Order Comment: Order Added by Ham Expert. Performed By: #### 2 581031, 9732214, 1464808, 6652423, 21659990, 74452926 ####[place] [address] [place] [address] Monocytes/100 WBC (Bld) 6.5 % Normal 4.0-14.0 [facility] Comment on above: Order Comment: Order Added by Discern Expert. Performed By: #### 2 180102, 2337095, 6534464, 5232848, 83039249, 04461310 ####[facility] [address] [place] [address] Monocytes/Leukocytes Auto (Bld) [Pure # fraction] 0.9 E9/L Normal 0.2-1.0 [facility] Comment on above: Order Comment: Order Added by Discern Expert. Performed By: #### 2 106563, 8045933, 4306472, 8555868, 52222739, 66913480 ####[facility] [address] [place] [address] Neutrophils/100 WBC (Bld) 78.0 % High 36.0-75.0 [facility] Comment on above: Order Comment: Order Added by Discern Expert. Performed By: #### 2 660307, 7036080, 0361160, 7362553, 20887413, 76494405 ####[facility] [address] [place] [address] Neutrophils/Leukocyte s Auto (Bld) [Pure # fraction] 11.4 E9/L High 2.0-7.5 [facility] Comment on above: Order Comment: Order Added by Discern Expert. Performed By: #### 2 376131, 4132449, 2941642, 3394987, 88880207, 31076674 ####[facility] [address] [place] [address] BMPon 07-26-2022 Creatinine [Mass/Vol] 0.8 mg/dL Normal 0.5-1.3 [facility] Comment on above: Performed By: #### 2 191792, 2346011, 7999812, 9068321, 02192920, 32822948 ####[facility] [address] [place] [address] Urea nitrogen [Mass/Vol] 11 mg/dL Normal 5-21 [facility] Comment on above: Performed By: #### 2 148812, 8846897, 1449096, 0383219, 50147124, 26512899 ####[facility] [address] [place] [address] Urea nitrogen/Creatinine [Mass ratio] 14 No Units Normal 10-20 [facility] Comment on above: Performed By: #### 2 112517, 4761241, 8183430, 3014925, 67455840, 53604255 ####[facility] [address] [place] [address] Anion gap [Moles/Vol] 13 mmol/L Normal 6-16 [facility] Comment on above: Performed By: #### 2 008506, 4028211, 0649983, 7579085, 76746649, 48726503 ####[facility] [address] [place] [address] Calcium [Mass/Vol] 9.3 mg/dL Normal 8.9-11.1 [facility] Comment on above: Performed By: #### 2 340255, 8566917, 9814326, 2337659, 35064479, 09804487 ####[facility] [address] [place] [address] Chloride [Moles/Vol] 101 mmol/L Normal 101-111 [facility] Comment on above: Performed By: #### 2 918263, 0757493, 8497404, 5567603, 77738815, [id number] ####[facility] [address] [place] [address] CO2 [Moles/Vol] 27 mmol/L Normal 21-31 [facility] Comment on above: Performed By: #### 2 651986, 3288119, 9706786, 2026156, 84675955, 92874633 ####[facility] [address] [place] [address] Glucose [Mass/Vol] 88 mg/dL Normal 55-199 [facility] Comment on above: Result Comment: If t his glucose result represents a fasting glucose, interpretation should refer to the following reference range: 55-99 mg/dL Performed By: #### 2 481318, 6547736, 3533226, 1305174, 72022255, 32618904 ####[facility] [address] [place] [address] Potassium [Moles/Vol] 3.6 mmol/L Normal 3.5-5.3 [facility] Comment on above: Performed By: #### 2 694182, 4751979, 5945807, 4750564, 71437026, 69181398 ####[facility] [address] [place] [address] Sodium [Moles/Vol] 137 mmol/L Normal 135-145 [facility] Comment on above: Performed By: #### 2 154288, 1555002, 3298474, 9879333, 99998188, 69082375 ####[address] [address] CBC w/ Auto Diffon 3 Erythrocyte distribution width (RBC) [Ratio] 13.9 % Normal 10.9-14.2 [facility] Comment on above: Performed By: #### 2 734404, 9739532, 3769324, 0237058, 36679826, 91321768 ####[facility] [address] [place] [address] Hematocrit (Bld) [Volume fraction] 47.0 % High 34.0-46.0 [facility] Comment on above: Performed By: #### 2 823634, 1575466, 9470816, 4867473, 95958586, 85116332 ####[facility] [address] [place] [address] Hemoglobin (Bld) [Mass/Vol] 15.3 g/dL Normal 12.0-16.0 [facility] Comment on above: Performed By: #### 2 543042, 6348334, 7639493, 6679880, 18789888, 89254527 ####[facility] [address] [place] [address] MCH (RBC) [Entitic mass] 29.2 pg Normal 27.0-34.0 [facility] Comment on above: Performed By: #### 2 769749, 5180082, 2334391, 3052781, 89207755, 06785185 ####[address] [address] MCHC (RBC) [Mass/Vol] 32.7 g/dL Normal 31.4-36.0 [facility] Comment on above: Performed By: #### 2 218687, 6075402, 4346706, 0551240, 55699024, 65246149 ####[address] [address] MCV (RBC) [Entitic vol] 89.3 fL Normal 80.0-100.0 [facility] Comment on above: Performed By: #### 2 332774, 0697147, 8086737, 8706675, 03177445, 21948562 ####[address] [address] Platelet mean volume (Bld) [Entitic vol] 6.7 fL Normal 6.4-10.8 [facility] Comment on above: Performed By: #### 2 262356, 0882182, 3260547, 2173199, 44918170, 79888139 ####[address] [address] Platelets (Bld) [#/Vol] 324.0 E9/L Normal 150.0-500.0 [facility] Comment on above: Performed By: #### 2 012076, 9318199, 1391790, 1173307, 72383950, 73723640 ####[address] [address] RBC (Bld) [#/Vol] 5.3 E12/L Normal 4.3-5.9 [facility] Comment on above: Performed By: #### 2 407294, 3122165, 6962989, 9558170, 28831093, 96867598 ####[facility] [address] [place] [address] WBC corrected for nucl RBC Auto (Bld) [#/Vol] 14.6 E9/L High 4.0-11.0 [facility] Comment on above: Performed By: #### 2 565491, 4016985, 4495304, 6469181, 55911425, 99322425 ####[facility] [address] [place] [address] CHEMISTRYOrdered By: SYSTEM SYSTEM on 07-26-2022 Troponin [...] mg/dL Normal 1.3 - 2 .4 mg/dL [facility] Remisol Potassium [Moles/Vol] 3.6 mmol/L Normal 3.5 - 5.3 mmol/L [facility] Remisol Sodium [Moles/Vol] 137 mmol/L Normal 135 - 145 mmol/L [facility] Remisol Urea nitrogen [Mass/Vol] 11 mg/dL Normal 5 - 21 mg/dL [facility] Remisol Urea nitrogen/Creatinine [Mass ratio] 14 mg/mg Normal 10 - 20 [facility] Remisol CHEMISTRYOrdered By: Lab ROP User on 07-26-2022 Glucose [Mass/Vol] 106 mg/dL High 55 - 99 mg/dL [facility] POC Subsection Comment on above: Result Comment: Parker wills RN/ POC Device SN [id number] Invalid Interpretation Code [facility] POC Subsection POC User ID [id number] Invalid Interpretation Code [facility] POC Subsection POC Username SHANKAR ABARCA Invalid Interpretation Code [facility] POC Subsection CT Head or Brain w/o Contras ton 07-26-2022 CT Head or Brain w/o Contrast Normal [facility] Capillary Glucose POCon Glucose [Mass/Vol] 106 mg/dL High 55-99 [facility] Comment on above: Result Comment: Parker wills RN/ Performed By: #### 2 [id number] ####[facility] [address] [place] [address] Consent for Treatmenton Consent for Treatment [id number] 0CD:127 Normal [facility] ED Clinical Summaryon 2022 ED Clinical Summary Normal [facility] ED Note-Physicianon 07-27-19 ED Note-Physician Normal [facility] Comment on above: Result Comment: Elec tronically Signed By: Yaritza Cedeño PA-C\.br\Date and Time Signed: 07/26/22 14:17 EDT\.br\Electronically Co-Signed By: Lance Wu M.D.\.br\Date and Time Co-Signed: 07/26/22 15:36 EDT ED Patient Education Noteon 07-26-2022 ED Patient Education Note Normal [facility] ED Patient Summaryon 023 ED Patient Summary Normal [facility] HEMATOLOGYOrdered By: SYSTEM SYSTEM on 07-26-2022 Basophils/100 [...] 14.6 E9/L High 4.0 - 11.0 E9/L [facility] HemeAutoSS Magnesiumon 07-26-2022 Magnesium [Mass/Vol] 2.0 mg/dL Normal 1.3-2.4 [facility] Comment on above: Performed By: #### 2 103156, 0258588, 2203780, 1440111, 56139935, 51396341 ####[facility] [address] [place] [address] Monitor Recordon 07-26-2022 Monitor Record [id number]. 00CD:127 Normal [facility] Pre-Arrival Noteon 3 Pre-Arrival Note Normal [facility] Troponin 0 Hr.on 07-26-2022 Troponin I.cardiac [Mass/Vol] 6.60 pg/mL Low 10.10-27.10 [facility] Comment on above: Order Comment: pt st ill in imaging, will check back later [id number] 07/26/2022 12:32:06 EDT Result Comment: The 95% CI (Confidence Interval) PPV (Positive Predictive Value) for myocardial infarction in females is 38 pg/mL, in males 51 pg/mL. The results should be used in conjunction with clinical conditions of myocardial infarction.(Access High Sensitivity Troponin I Instructions For Use, Christy Larry, November 2017) Performed By: #### 2 223631, 9014039, 6312602, 6736892, 56658362, 80284262 ####[facility] [address] [place] [address] Troponin 3 Hr.on 07-26-2022 Troponin I.cardiac [Mass/Vol] 6.00 pg/mL Low 10.10-27.10 [facility] Comment on above: Result Comment: The 95% CI (Confidence Interval) PPV (Positive Predictive Value) for myocardial infarction in females is 38 pg/mL, in males 51 pg/mL. The results should be used in conjunction with clinical conditions of myocardial infarction.(Access High Sensitivity Troponin I Instructions For Use, [employer], November 2017) Performed By: #### 1 [id number] ####[address] [address] Troponin 6 Hr.on 07-26-2022 Troponin I.cardiac [Mass/Vol] 5.40 pg/mL Low 10.10-27.10 [facility] Comment on above: Result Comment: The 95% CI (Confidence Interval) PPV (Positive Predictive Value) for myocardial infarction in females is 38 pg/mL, in males 51 pg/mL. The results should be used in conjunction with clinical conditions of myocardial infarction.(Access High Sensitivity Troponin I Instructions For Use, [employer], November 2017) Performed By: #### 1 8942658 ####[address] [address] UA With Cult Reflexon 2022 Bacteria LM Ql (Urine sed) TRACE Normal Trace [facility] Comment on above: Performed By: #### 1 8253852 ####[address] [address] Bilirubin Ql (U) Negative Normal Negative [facility] Comment on above: Performed By: #### 1 7244841 ####[address] [address] Clarity (U) CLEAR Normal Clear [facility] Comment on above: Performed By: #### 1 0075726 ####[address] [address] Color (U) YELLOW Normal Yellow [facility] Comment on above: Performed By: #### 1 7394340 ####[facility] [address] [place] [address] Epithelial cells.squamous LM.HPF (Urine sed) [#/Area] 3-4 Normal 0-2 [facility] Comment on above: Performed By: #### 1 8584544 ####[address] [place] [address] Glucose Test strip (U) [Mass/Vol] Negative Normal Negative [facility] Comment on above: Performed By: #### 1 9051858 ####[address] [address] Hemoglobin Ql (U) Negative Normal Negative [facility] Comment on above: Performed By: #### 1 5352955 ####[address] [address] Ketones (U) [Mass/Vol] Negative Normal Negative [facility] Comment on above: Performed By: #### 1 2681965 ####[address] [address] Talmo.plasma/Lithiu m.RBC (Bld) [Mass ratio] 0-3 Normal 0-3 [facility] Comment on above: Performed By: #### 1 9358167 ####[address] [address] Nitrite Ql (U) Negative Normal Negative [facility] Comment on above: Performed By: #### 1 3090254 ####[address] [address] pH (U) 6.5 [pH] Invalid Interpretation Code 5.0-9.0 [facility] Comment on above: Performed By: #### 1 9650592 ####[address] [address] Protein (U) [Mass/Vol] Negative Normal Negative [facility] Comment on above: Performed By: #### 1 7632287 ####[address] [address] Specific gravity (U) [Rel density] <=1.005 Invalid Interpretation Code 1.005-1.030 [facility] Comment on above: Performed By: #### 1 1570746 ####[facility] [address] [place] [address] Type of Urine collection method Clean Catch Normal [facility] Comment on above: Performed By: #### 1 1920845 ####[facility] [address] [place] [address]57 Urobilinogen Qn (U) 0.2 {Malu'U}/dL Normal 0.0-1.0 [facility] Comment on above: Performed By: #### 1 0995663 ####[facility] [address] [place] [address] WBC Auto Ql (U) TRACE Abnormal Negative [facility] Comment on above: Performed By: #### 1 1662205 ####[place] [address] WBC LM.HPF (Urine sed) [#/Area] 0-5 Normal 0-5 [facility] Comment on above: Performed By: #### 1 0912108 ####[place] [address] URINALYSISOrdered By: Katerina Parker on 07-26-2022 Bacteria [...] PM) Normal Negative [facility] UA Auto SS Talmo.plasma/Lithiu m.RBC (Bld) [Mass ratio] 0-3 /HPF Normal [...] FT UA Auto SS Urobilinogen Qn (U) 0.3993465 {Malu'U}/dL Normal 0.0 - 1.0 EU/dL [facility] UA Auto SS WBC Auto Ql (U) Trace *ABN* (07/26/22 4:49 PM) Invalid Interpretation Code Negative [facility] UA Auto SS WBC LM.HPF (Urine sed) [#/Area] 0-5 /HPF Normal 0-5/HPF [facility] UA Auto SS XR Chest Single Viewon 07-26 XR Chest Single View Normal [facility] eGFRon 07-26-2022 GFR/1.73 sq M.predicted among blacks MDRD (S/P/Bld) [Vol rate/Area] mL/min/{1.73_m2} Normal >=59 [facility] Comment on above: Order Comment: Order added by Discern Expert. Result Comment: eGFR is race adjusted. AA=. Performed By: #### 2 604496, 2917479, 1718535, 9189802, 69600287, 68117107 ####[facility] [address] [place] [address] GFR/1.73 sq M.predicted among non-blacks MDRD (S/P/Bld) [Vol rate/Area] mL/min/{1.73_m2} Normal >=59 [facility] Comment on above: Order Comment: Order added by Discern Expert. Result Comment: Collaborating Supervising Physician gina kidney disease could be indicated at eGFR's of less than 60 mL/min/1.73m2. Kidney failure is indicated at less than 15 mL/min/1.73m2. Performed By: #### 2 464323, 2942906, 2344974, 3007471, 05192590, 93780705 ####[facility] [address] [place] [address] SURGICAL PATH REPORTon 07-25 SURGICAL PATH REPORT [facility] Department of Pathology [address] [place] [phone] Name: LEELEE CEDILLO : 1950 [facility] [id number] Number: [facility] : n: Admit 71 years Attending ADELE FLEMING Age: Provider: Ordering ADELE FLEMING Provider: Consulti Surgical Pathology Report ng: ACCESSION: COLLECTED DATE/TIME: RECEIVED DATE/TIME: PATHOLOGIST: [id number] 07/24/2022 12:16 EDT 07/24/2022 12:16 EDT MICHELINE STERN MD Final Diagnosis Report for [facility] [place], [place] RIGHT ANKLE, PUNCH BIOPSY: - FRAGMENT [...] MP:alexa 07/24/2022 Tissue pathology report for: [facility], [address] [place] [address]; ____ ____ Print 07/25/2022 15:48 EDT Number: Date/Time: [facility] Department of Pathology [address] [place], [place] [id number] Name: LEELEE CEDILLO : 1950 [employer] [id number] Number: Gender Female [employer] [facility]WALDO : n: Admit 71 years Attending ADELE FLEMING Age: Provider: Ordering ADELE FLEMING Provider: Consulti Surgical Pathology Report ng: ACCESSION: COLLECTED DATE/TIME: RECEIVED DATE/TIME: PATHOLOGIST: [id number] 07/24/2022 12:16 EDT 07/24/2022 12:16 EDT LEENA RUFF, MICHELINE Gross Description PATHOLOGY SERVICES PROVIDED BY [employer] (CLIA #[id number]) in cooperation with [facility] at [address] [place] [address] ( CLIA #[id number]) Microscopic Diagnosis The final diagnosis is based on a microscopic exam of customer field representative sections. Codes CPT CODE: 19636 ____ ____ Print 07/25/2022 15:48 EDT Number: Date/Time: [facility] Comment on above: Performed By: #### 9 [id number] #### [facility] Laboratory Services [address] [place] [address] Prepper: Jared Oh MD POINT OF CARE GLUCOSEon 04-0 Glucose [Mass/Vol] 114 mg/dL Critically high 74-[address] [facility] Comment on above: Performed By: #### P OCGLUC #### [facility] [address] [address] [address] Salvador Yung Glucose [Mass/Vol] 112 mg/dL Critically high 74-[address] [facility] Comment on above: Performed By: #### P OCGLUC #### [facility] [address] [address] [address] Salvador Yung EMS Documentationon 07-21-19 EMS Documentation Normal [facility] Covid-19 PCR (CVDTBH)on 06-20 SARS-CoV-2 (COVID-19) RNA [...] for this test is supported by the [place] of Health and Human Service's (HHS's) declaration [...] VDTBH #### [facility] [address] [place], [place] [address] Dr. Salvador Yung PROF CHEM 8 (BAS METB)on Anion gap [Moles/Vol] 12.0 mmol/L Normal [facility] Comment on above: Performed By: #### B MP #### [facility] [address] [address] [address] Salvador Yung Calcium [Mass/Vol] 9.4 mg/dL Normal 8.5-10.1 [facility] Comment on above: Performed By: #### B MP #### [facility] [address] [address] [address] Salvador Yung Chloride [Moles/Vol] 100 mmol/L Normal 98-107 [facility] Comment on above: Performed By: #### B MP #### [facility] [address] [address] [address] Salvador Yung CO2 [Moles/Vol] 29.8 mmol/L Normal 21.0-32.0 [facility] Comment on above: Performed By: #### B MP #### [facility] [address] [address] [address] Salvador Yung Creatinine [Mass/Vol] 0.91 mg/dL Normal 0.55-1.02 [facility] Comment on above: Performed By: #### B MP #### [facility] [address] [address] [address] Salvador Yung EGFR-AF VINCENTIAN >60 Normal >=60 [facility] Comment on above: Performed By: #### B MP #### [facility] [address] [address] [address] Salvador Yung EGFR-NON AF VINCENTIAN >60 Normal >=60 [facility] Comment on above: Performed By: #### B MP #### [facility] [address] [address] [address] Salvador Yung Glucose [Mass/Vol] 82 mg/dL Normal 74-106 [facility] Comment on above: Performed By: #### B MP #### [facility] [address] [address] [address] Salvador Yung Potassium [Moles/Vol] 3.8 mmol/L Normal 3.5-5.1 [facility] Comment on above: Performed By: #### B MP #### [facility] [address] [address] [address] Salvador Yung Sodium [Moles/Vol] 138 mmol/L Normal 136-145 [facility] Comment on above: Performed By: #### B MP #### [facility] [address] [address] [address] Salvador Yung Urea nitrogen [Mass/Vol] 12.0 mg/dL Normal 7.0-18.0 [facility] Comment on above: Performed By: #### B MP #### [facility] [address] [address] [address] Salvador Yung Urea nitrogen/Creatinine [Mass ratio] 13.2 mg/mg Normal [facility] Comment on above: Performed By: #### B MP #### [facility] [address] [address] [address] Salvador Yung VC INJ SCL JESSICA NATURE PHOTOGRAPHER VEINSon 0 07-01-2022 VC INJ SCL JESSICA NATURE PHOTOGRAPHER VEINS Patient: LEELEE CEDILLO Exam Date: 07/01/2022 : 1950 Gender:F Ordering : DR ALFRED UMAÑA M.D. Admission #: [id number] Family : Order #: [id number] CLICK HERE TO VIEW EXAM RADIOLOGY REPORT [...] Lobato M.D. on 07/01/2022 at 15:22 Normal [facility] VC CONSULT FOLLOWUPon 2022 VC CONSULT FOLLOWUP Patient: ITZEL CEDILLO Exam Date: 06/19/2022 : 1950 Gender:F Ordering : DR ALFRED UMAÑA M.D. Admission #: [id number] Family : Order #: [id number] CLICK HERE TO VIEW EXAM RADIOLOGY REPORT [...] Umaña MD on 06/19/2022 at 14:17 Normal [facility] VC EXT VENOUS LT LIMITEDon 0 06-19-2022 VC EXT VENOUS LT LIMITED Patient: LEELEE CEDILLO Exam Date: 06/19/2022 : 1950 Gender:F Ordering : DR ALFRED UMAÑA M.D. Admission #: [id number] Family : Order #: [id number] CLICK HERE TO VIEW EXAM RADIOLOGY REPORT [...] Umaña MD on 06/19/2022 at 14:15 Normal [facility] VC INJ FOAM SCLERO W US MLTI on 06-13-2022 VC INJ FOAM SCLERO W US MLTI Patient: LEELEE CEDILLO Exam Date: 06/13/2022 : 1950 Gender:F Ordering : DR ALFRED UMAÑA M.D. Admission #: [id number] Family : Order #: [id number] CLICK HERE TO VIEW EXAM RADIOLOGY REPORT [...] : DR ALFRED UMAÑA M.D. Admission #: [id number] Family : Order #: [id number] CLICK HERE TO VIEW EXAM RADIOLOGY REPORT [...] Lobato M.D. on 06/10/2022 at 12:36 Normal [facility] VC EXT VENOUS RT LIMITEDon 0 06-10-2022 VC EXT VENOUS RT LIMITED Patient: LEELEE CEDILLO Exam Date: 06/10/2022 : 1950 Gender:F Ordering : DR ALFRED UMAÑA M.D. Admission #: [id number] Family : Order #: [id number] CLICK HERE TO VIEW EXAM RADIOLOGY REPORT [...] Lobato M.D. on 06/10/2022 at 12:33 Normal [facility] VC INJ FOAM SCLERO W US MLTI on 06-03-2022 VC INJ FOAM SCLERO W US MLTI Patient: LEELEE CEDILLO Exam Date: 06/03/2022 : 1950 Gender:F Ordering : DR ALFRED UMAÑA M.D. Admission #: [id number] Family : Order #: [id number] CLICK HERE TO VIEW EXAM RADIOLOGY REPORT PROCEDURE: VEIN CENTER INJECTION FOAM SCLEROSING SOLUTION WITH ULTRASOUND MULTIPLE VEINS COMPARISON: None. 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 Admission #: [id number] Family : Order #: [id number] CLICK HERE TO VIEW EXAM RADIOLOGY REPORT [...] Umaña MD on 05/28/2022 at 11:44 Normal [facility] VC EXT VENOUS RT LIMITEDon 0 05-28-2022 VC EXT VENOUS RT LIMITED Patient: LEELEE CEDILLO Exam Date: 05/28/2022 : 1950 Gender:F Ordering : DR ALFRED UMAÑA M.D. Admission #: [id number] Family : Order #: [id number] CLICK HERE TO VIEW EXAM RADIOLOGY REPORT [...] extends to distal lower leg. Thrombus in field crop ii farmworker distal medial lower leg 2.8 mm from [...] BC #### [facility] [address] [address] [address] Salvador Yung Basophils/100 WBC (Bld) 0.6 % Normal 0.2-2.0 [facility] Comment on above: Performed By: #### C BC #### [facility] [address] [place] [address] Dr. Salvador Ynug EO # 0.1 103/ul Normal 0.0-0.7 [facility] Comment on above: Performed By: #### C BC #### [facility] [address] [place] [address] Dr. Salvador Yung Eosinophils/100 WBC (Bld) 0.6 % Critically low 0.9-7.0 [facility] Comment on above: Performed By: #### C BC #### [facility] [address] [place] [address] Dr. Salvador Yung Erythrocyte distribution width (RBC) [Ratio] 12.4 % Normal 11.0-15.0 [facility] Comment on above: Performed By: #### C BC #### [facility] [address] [place] [address] Dr. Salvador Yung Hematocrit (Bld) [Volume fraction] 43.1 % Normal 36.0-48.0 [facility] Comment on above: Performed By: #### C BC #### [facility] [address] [place] [address] Dr. Salvador Yung Hemoglobin (Bld) [Mass/Vol] 13.8 g/dL Normal 12.0-16.0 [facility] Comment on above: Performed By: #### C BC #### [facility] [address] [place] [address] Dr. Salvador Yung IG # 0.06 10e3/ul Critically high 0.00-0.03 [facility] Comment on above: Performed By: #### C BC #### [facility] [address] [place] [address] Dr. Salvador Yung IG % 0.7 % Critically high 0.0-0.5 [facility] Comment on above: Performed By: #### C BC #### [facility] [address] [place] [address] Dr. Salvador Yung LYMPH # 1.7 103/ul Normal 1.2-3.8 [facility] Comment on above: Performed By: #### C BC #### [facility] [address] [place] [address] Dr. Salvador Yung Lymphocytes/100 WBC (Bld) 20.2 % Critically low 20.5-60.0 [facility] Comment on above: Performed By: #### C BC #### [facility] [address] [place] [address] Dr. Salvador Yung MANUAL DIFF REQ NO Normal [facility] Comment on above: Performed By: #### C BC #### [facility] [address] [place] [address] Dr. Salvador Yung MCH (RBC) [Entitic mass] 30.1 pg Normal 26.7-34.0 [facility] Comment on above: Performed By: #### C BC #### [facility] [address] [place] [address] Dr. Salvador Yung MCHC (RBC) [Mass/Vol] 32.0 g/dL Normal 29.9-35.2 [facility] Comment on above: Performed By: #### C BC #### [facility] [address] [place] [address] Dr. Salvador Yung MCV (RBC) [Entitic vol] 93.9 fL Normal 81.0-99.0 [facility] Comment on above: Performed By: #### C BC #### [facility] [address] [place] [address] Dr. Salvador Yung MONO # 0.5 103/ul Normal 0.3-0.8 [facility] Comment on above: Performed By: #### C BC #### [facility] [address] [place] [address] Dr. Salvador Yung Monocytes/100 WBC (Bld) 6.1 % Normal 1.7-12.0 [facility] Comment on above: Performed By: #### C BC #### [facility] [address] [place] [address] Dr. Salvador Yung NEUT # 6.1 103/ul Normal 1.4-6.5 [facility] Comment on above: Performed By: #### C BC #### [facility] [address] [place] [address] Dr. Salvador Yung Neutrophils/100 WBC (Bld) 71.8 % Normal 43.0-75.0 [facility] Comment on above: Performed By: #### C BC #### [facility] [address] [place] [address] Dr. Salvador Yung Platelet mean volume (Bld) [Entitic vol] 8.2 fL Critically low 9.5-13.5 [facility] Comment on above: Performed By: #### C BC #### [facility] [address] [place] [address] Dr. Salvador Yung PLT 246 103/ul Normal 150-450 [facility] Comment on above: Performed By: #### C BC #### [facility] [address] [place] [address] Dr. Salvador Yung RBC 4.59 106/ul Normal 4.20-5.40 [facility] Comment on above: Performed By: #### C BC #### [facility] [address] [place] [address] Dr. Salvador Yung WBC 8.5 103/ul Normal 4.0-11.0 [facility] Comment on above: Performed By: #### C BC #### [facility] [address] [place] [address] Dr. Salvador Yung FREE T3on 05-21-2022 FREE T3 2.14 pg/mlL Critically low 2.18-3.98 [facility] Comment on above: Performed By: #### P OCGLUC #### [facility] [address] [address] [address] Salvador Yung GLYCOHEMOGLOBIN A1Con 2022 ADA RECOMMENDATION SEE BELOW Normal [facility] Comment on above: Result Comment: ADA RECOMMENDED LIMIT 4.0 - 6.0 ADA THERAPEUTIC TARGET < 7.0 ACTION SUGGESTED > 7.0 Performed By: #### P OCGLUC #### [facility] [address] [address] [address] Salvador Yung Glucose [Mass/Vol] 100 mg/dL Normal [facility] Comment on above: Performed By: #### P OCGLUC #### [facility] [address] [place] [address] Dr. Salvador Yung HbA1c (Bld) [Mass fraction] 5.1 % Normal 4.5-6.2 [facility] Comment on above: Performed By: #### P OCGLUC #### [facility] [address] [place] [address] Dr. Salvador Yung LIPID PROFILEon 05-21-2022 CHOL-HDL RATIO NORM SEE BELOW Normal [facility] Comment on above: Result Comment: 3.3 - 4.4 LOW RISK 4.4 - 7.1 AVERAGE RISK 7.1 - 11.0 MODERATE RISK >11.0 HIGH RISK Performed By: #### P OCGLUC #### [facility] [address] [address] [address] Salvador Yung Cholesterol [Mass/Vol] 164 mg/dL Normal <=200 [facility] Comment on above: Performed By: #### P OCGLUC #### [facility] [address] [address] [address] Salvador Yung Cholesterol in HDL [Mass/Vol] 61 mg/dL Critically high 40-60 [facility] Comment on above: Performed By: #### P OCGLUC #### [facility] [address] [address] [address] Salvador Yung Cholesterol in LDL [Mass/Vol] 90.2 mg/dL Normal [facility] Comment on above: Performed By: #### P OCGLUC #### [facility] [address] [address] [address] Salvador Yung Cholesterol.total/Cho lesterol in HDL [Mass ratio] 2.7 {ratio} Normal [facility] Comment on above: Performed By: #### P OCGLUC #### [facility] [address] [address] [address] Salvador Yung HDL NORMAL > or = 60 mg/dl - LO W CARDIOVASCULAR RISK <40 mg/dl - HIGH CARDIOVASCULAR RISK Normal [facility] Comment on above: Performed By: #### P OCGLUC #### [facility] [address] [address] [address] Salvador Yung LDL CALC NORMAL SEE BELOW Normal [facility] Comment on above: Result Comment: <100 mg/dl OPTIMAL 100 - 129 mg/dl NEAR OR ABOVE OPTIMAL 130 - 159 mg/dl BORDERLINE HIGH 160 - 189 mg/dl HIGH >190 mg/dl VERY HIGH Performed By: #### P OCGLUC #### [facility] [address] [address] [address] Salvador Yung Triglyceride [Mass/Vol] 64 mg/dL Normal <=150 [facility] Comment on above: Performed By: #### P OCGLUC #### [facility] [address] [address] [address] Salvador Yung VLDL CALC 12.8 mg/dL Normal [facility] Comment on above: Performed By: #### P OCGLUC #### [facility] [address] [address] [address] Salvador Yung PROF 14(COMP METB)on 023 Albumin [Mass/Vol] 3.2 g/dL Critically low 3.4-5.0 [facility] Comment on above: Performed By: #### P OCGLUC #### [facility] [address] [place] [address] Dr. Salvador Yung Albumin/Globulin [Mass ratio] 0.7 {ratio} Normal [facility] Comment on above: Performed By: #### P OCGLUC #### [facility] [address] [address] [address] Salvador Yung ALP [Catalytic activity/Vol] 68 U/L Normal 46-116 [facility] Comment on above: Performed By: #### P OCGLUC #### [facility] [address] [place] [address] Dr. Salvador Yung ALT [Catalytic activity/Vol] 25 U/L Normal 14-59 [facility] Comment on above: Performed By: #### P OCGLUC #### [facility] [address] [address] [address] Salvador Yung Anion gap [Moles/Vol] 11.8 mmol/L Normal [facility] Comment on above: Performed By: #### P OCGLUC #### [facility] [address] [place] [address] Dr. Salvador Yung AST [Catalytic activity/Vol] 20 U/L Normal 15-37 [facility] Comment on above: Performed By: #### P OCGLUC #### [facility] [address] [address] [address] Salvador Yung Bilirubin [Mass/Vol] 0.5 mg/dL Normal 0.2-1.0 [facility] Comment on above: Performed By: #### P OCGLUC #### [facility] [address] [place] [address] Dr. Salvador Yung Calcium [Mass/Vol] 8.9 mg/dL Normal 8.5-10.1 [facility] Comment on above: Performed By: #### P OCGLUC #### [facility] [address] [place] [address] Dr. Salvador Yung Chloride [Moles/Vol] 105 mmol/L Normal 98-107 [facility] Comment on above: Performed By: #### P OCGLUC #### [facility] [address] [place] [address] Dr. Salvador Yung CO2 [Moles/Vol] 29.9 mmol/L Normal 21.0-32.0 [facility] Comment on above: Performed By: #### P OCGLUC #### [facility] [address] [place] [address] Dr. Salvador Yung Creatinine [Mass/Vol] 0.74 mg/dL Normal 0.55-1.02 [facility] Comment on above: Performed By: #### P OCGLUC #### [facility] [address] [address] [address] Salvador Yung EGFR-AF VINCENTIAN >60 Normal >=60 [facility] Comment on above: Performed By: #### P OCGLUC #### [facility] [address] [address] [address] Salvador Yung EGFR-NON AF VINCENTIAN >60 Normal >=60 [facility] Comment on above: Performed By: #### P OCGLUC #### [facility] [address] [address] [address] Salvador Yung Globulin (S) [Mass/Vol] 4.3 g/dL Normal [facility] Comment on above: Performed By: #### P OCGLUC #### [facility] [address] [place] [address] Dr. Salvador Yung Glucose [Mass/Vol] 88 mg/dL Normal 74-106 [facility] Comment on above: Performed By: #### P OCGLUC #### [facility] [address] [address] [address] Salvador Yung Potassium [Moles/Vol] 3.7 mmol/L Normal 3.5-5.1 [facility] Comment on above: Performed By: #### P OCGLUC #### [facility] [address] [address] [address] Salvador Yung Protein [Mass/Vol] 7.5 g/dL Normal 6.4-8.2 [facility] Comment on above: Performed By: #### P OCGLUC #### [facility] [address] [address] [address] Salvador Yung Sodium [Moles/Vol] 143 mmol/L Normal 136-145 [facility] Comment on above: Performed By: #### P OCGLUC #### [facility] [address] [address] [address] Salvador Yung Urea nitrogen [Mass/Vol] 11.0 mg/dL Normal 7.0-18.0 [facility] Comment on above: Performed By: #### P OCGLUC #### [facility] [address] [address] [address] Salvador Yung Urea nitrogen/Creatinine [Mass ratio] 14.9 mg/mg Normal [facility] Comment on above: Performed By: #### P OCGLUC #### [facility] [address] [place] [address] Dr. Salvador Yung T4on 05-21-2022 T4 [Mass/Vol] 11.60 ug/dL Normal 4.80-13.90 [facility] Comment on above: Performed By: #### P OCGLUC #### [facility] [address] [place] [address] Dr. Salvador Yung TSHon 05-21-2022 TSH 0.165 uIU/mL Critically low 0.358-3.740 [facility] Comment on above: Performed By: #### P OCGLUC #### [facility] [address] [place] [address] Dr. Salvador Yung VC ENDOVENOUS ABL 1ST V RTon 05-21-2022 VC ENDOVENOUS ABL 1ST V RT Patient: LEELEE CEDILLO Exam Date: 05/21/2022 : 1950 Gender:F Ordering : DR ALFRED UMAÑA M.D. Admission #: [id number] Family : Order #: [id number] CLICK HERE TO VIEW EXAM RADIOLOGY REPORT [...] ITAD #### [facility] [address] [place], [place] [address] Dr. Salvador Yung VIT D RANGES SEE BELOW Normal [facility] Comment on above: Result Comment: <20 ng/mL Vit D deficient 20 - <30 ng/mL Vit D insufficient 30 - 100 ng/mL Vit D sufficient >100 ng/mL Potential Toxicity Performed By: #### V ITAD #### [facility] [address] [address] [address] Salvador Yung XR HIP LT 2 [...] acute bony abnormality. Electronically authenticated by: MARI LOREZNO Date: 2022-05-21 16:26 Normal [facility] VC COMP CONSULTATIONon 05-01 VC COMP CONSULTATION Patient: REAGAN CEDILLO Exam Date: 05/01/2022 : 1950 Gender:F Ordering : DR. 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 CEAP: C6, EC, AP, OR PLAN: 1. Continued use of compression stockings 2. Elevated legs and increased physical activity symptomatic relief 3. Endovenous laser ablation of right small saphenous vein and field crop ii farmworker vein. 4. Microfoam chemical ablation of dilated, [...] Lobato M.D. on 05/01/2022 at 15:27 Normal [facility] VC VENOUS REFLUX SAMI LMTon 0 05-01-2022 VC VENOUS REFLUX SAMI LMT Patient: LEELEE CEDILLO Exam Date: 05/01/2022 : 1950 Gender:F Ordering : DR. ADELE FLEMING D.P.M. Admission #: [id number] Family : DR ALFRED UMAÑA M.D. Order #: [id number] CLICK HERE TO VIEW EXAM RADIOLOGY REPORT [...] chronic thrombus visualized Compressibility: Normal Flow: Normal [employer] Sheriff: Dist/med calf 2.6mm with 0s reflux. Mid/med calf 3.5mm with 0s reflux. Tech Note: GSV has been previously stripped. Patent varicose vein mid/med calf 2.3mm with 0.5s reflux. Patent varicose vein prox/med calf 3.4mm with 1.2s reflux. Patent varicose vein dist/med thigh 5.4mm with 0.8s reflux. CONCLUSION: 1. Dilated, incompetent right small saphenous vein. 2. Dilated, incompetent field crop ii farmworker veins and bilateral lower extremity branch saphenous varicosities. 3. Consultation for endovenous laser ablation is recommended. Dictated by: Julio Lobato M.D. on 05/01/2022 at 14:06 Approved by: Julio Lobato M.D. on 05/01/2022 at 14:28 Normal [facility] Coding Summary.on 03-11-2022 Coding Summary. Normal [facility] ED Traumaon 03-09-2022 ED Trauma [id number]#1. 00CD:127 Normal [facility] Consent for Procedure/Surger yon 03-08-2022 Consent for Procedure/Surgery [id number]#1. 00CD:127 Normal [facility] Consent for Treatmenton 02-18 Consent for Treatment [id number]#1.0 0CD:127 Normal [facility] Discharge Instructionson Discharge Instructions [id number]#1. 00CD:127 Normal [facility] ED Clinical Summaryon 2021 ED Clinical Summary Normal [facility] ED Note-Physicianon 03-08-20 ED Note-Physician Normal [facility] Comment on above: Result Comment: Elec tronically Signed By: Wm Nagy DO.br\Date and Time Signed: 03/08/22 21:11 EST ED Patient Education Noteon 03-08-2022 ED Patient Education Note Normal [facility] ED Patient Summaryon 022 ED Patient Summary Normal [facility] EMS Documentationon 03-08-20 EMS Documentation Normal [facility] EMS Documentation Normal [facility] Monitor Recordon 03-08-2022 Monitor Record [id number]#1. 00CD:127 Normal [facility] Monitor Record [id number]#1. 00CD:127 Normal [facility] Pre-Arrival Noteon Pre-Arrival Note Normal [facility] Respiratory Therapy Noteson 03-08-2022 Respiratory Therapy Notes conscious sedation on Eaton, Leelee. Used co2 monitor and one liter of 02. patient maintained 38 co2 and 99 O2. Last approx 40 min. Normal [facility] XR Hip 2-3 Views Left + Pelv yasir 03-08-2022 XR Hip 2-3 Views Left + Pelvis Normal [facility] XR Hip 2-3 Views Left + Pelvis Normal [facility] BLEEDING TIMEon 03-06-2022 BLEEDING TIME 10.5 min Critically high 1.0-8.0 [facility] Comment on above: Performed By: #### B LTM #### [facility] [address] [place] [address] Dr. Salvador Yung CBC AUTO DIFFon 03-06-2022 BASO # 0.1 103/ul Normal 0.0-0.1 [facility] Comment on above: Performed By: #### C BC #### [facility] [address] [address] [address] Salvador Yung Basophils/100 WBC (Bld) 0.7 % Normal 0.2-2.0 [facility] Comment on above: Performed By: #### C BC #### [facility] [address] [address] [address] Salvador Yung EO # 0.1 103/ul Normal 0.0-0.7 [facility] Comment on above: Performed By: #### C BC #### [facility] [address] [address] [address] Salvador Yung Eosinophils/100 WBC (Bld) 0.7 % Critically low 0.9-7.0 [facility] Comment on above: Performed By: #### C BC #### [facility] [address] [place] [address] Dr. Salvador Yung Erythrocyte distribution width (RBC) [Ratio] 12.9 % Normal 11.0-15.0 [facility] Comment on above: Performed By: #### C BC #### [facility] [address] [place] [address] Dr. Salvador Yung Hematocrit (Bld) [Volume fraction] 41.3 % Normal 36.0-48.0 [facility] Comment on above: Performed By: #### C BC #### [facility] [address] [place] [address] Dr. Salvador Yung Hemoglobin (Bld) [Mass/Vol] 13.7 g/dL Normal 12.0-16.0 [facility] Comment on above: Performed By: #### C BC #### [facility] [address] [place] [address] Dr. Salvador Yung IG # 0.05 10e3/ul Critically high 0.00-0.03 [facility] Comment on above: Performed By: #### C BC #### [facility] [address] [place] [address] Dr. Salvador Yung IG % 0.7 % Critically high 0.0-0.5 [facility] Comment on above: Performed By: #### C BC #### [facility] [address] [place] [address] Dr. Salvador Yung LYMPH # 1.4 103/ul Normal 1.2-3.8 [facility] Comment on above: Performed By: #### C BC #### [facility] [address] [place] [address] Dr. Salvador Yung Lymphocytes/100 WBC (Bld) 18.9 % Critically low 20.5-60.0 [facility] Comment on above: Performed By: #### C BC #### [facility] [address] [place] [address] Dr. Salvador Yung MANUAL DIFF REQ NO Normal [facility] Comment on above: Performed By: #### C BC #### [facility] [address] [place] [address] Dr. Salvador Yung MCH (RBC) [Entitic mass] 30.3 pg Normal 26.7-34.0 [facility] Comment on above: Performed By: #### C BC #### [facility] [address] [place] [address] Dr. Salvador Yung MCHC (RBC) [Mass/Vol] 33.2 g/dL Normal 29.9-35.2 [facility] Comment on above: Performed By: #### C BC #### [facility] [address] [place] [address] Dr. Salvador Yung MCV (RBC) [Entitic vol] 91.4 fL Normal 81.0-99.0 [facility] Comment on above: Performed By: #### C BC #### [facility] [address] [place] [address] Dr. Salvador Yung MONO # 0.7 103/ul Normal 0.3-0.8 [facility] Comment on above: Performed By: #### C BC #### [facility] [address] [place] [address] Dr. Salvador Yung Monocytes/100 WBC (Bld) 9.9 % Normal 1.7-12.0 [facility] Comment on above: Performed By: #### C BC #### [facility] [address] [address] [address] Salvador Yung NEUT # 5.2 103/ul Normal 1.4-6.5 [facility] Comment on above: Performed By: #### C BC #### [facility] [address] [address] [address] Salvador Yung Neutrophils/100 WBC (Bld) 69.1 % Normal 43.0-75.0 [facility] Comment on above: Performed By: #### C BC #### [facility] [address] [place] [address] Dr. Salvador Yung Platelet mean volume (Bld) [Entitic vol] 7.9 fL Critically low 9.5-13.5 [facility] Comment on above: Performed By: #### C BC #### [facility] [address] [place] [address] Dr. Salvador Yung PLT 223 103/ul Normal 150-450 [facility] Comment on above: Performed By: #### C BC #### [facility] [address] [place] [address] Dr. Salvador Yung RBC 4.52 106/ul Normal 4.20-5.40 [facility] Comment on above: Performed By: #### C BC #### [facility] [address] [place] [address] Dr. Salvador Yung WBC 7.5 103/ul Normal 4.0-11.0 [facility] Comment on above: Performed By: #### C BC #### [facility] [address] [place] [address] Dr. Salvador Yung IRONon 03-06-2022 Iron [Mass/Vol] 83.0 ug/dL Normal 50.0-170.0 [facility] Comment on above: Performed By: #### I ESTEFANY #### [facility] [address] [place] [address] Dr. Salvador Yung PROTIMEon 03-06-2022 INR Coag (PPP) [Relative time] 0.95 {INR} Normal [facility] Comment on above: Performed By: #### P TT, PT #### [facility] [address] [address] [address] Salvador Yung INR GUIDELINES SEE BELOW Normal [facility] Comment on above: Result Comment: YOJANA RED INR: 2.0 - 3.0 CONDITIONS NOT LISTED BELOW 2.5 - 3.5 FOR PROSTHETIC HEART VALVE REPLACEMENT 2.5 - 3.5 RECURRENT THROMBOSIS Performed By: #### P TT, PT #### [facility] [address] [address] [address] Salvador Yung PT Coag (PPP) [Time] 10.3 s Normal 9.0-11.6 [facility] Comment on above: Performed By: #### P TT, PT #### [facility] [address] [address] [address] Salvador Yung PTTon 03-06-2022 aPTT Coag (Bld) [Time] 22.1 s Critically low 22.3-36.2 [facility] Comment on above: Performed By: #### P TT, PT #### [facility] [address] [address] [address] Salvador Yung SCREENING MAMMOGRAM W/DANIEL, BILATERAL*on [...] IS VERY IMPORTANT TO YOUR HEALTH. CURRENT [employer] GUIDELINES RECOMMENDS ANNUAL MAMMOGRAPHY BEGINNING AT AGE 41. THIS FACILITY USUALLY USES A REMINDER SYSTEM TO ENSURE ALL POSITIONS RECEIVED REMINDER NOTIFICATIONS AT THE TIME BASED ON THE RECOMMENDATIONS OF THIS EXAM. Report reported and signed by Julio aMrtines on 02/28/2022 1602 Normal [facility] Covid-19 PCR (CVDTBH)on 12-19 [...] for this test is supported by the [place] of Health and Human Service's (HHS's) declaration [...] P OCGLUC #### [facility] [address] [place] [address] Dr. Salvador Yung MRI [facility] CONon 12-10- 22 MRI [facility] CON HISTORY: Chronic low back pain with left leg pain. Prior low back surgery. Lumbar disc disease. MRI [facility] CON: 12/09/2021 10:11 AM EDT COMPARISON: MRI [...] Positive/Negativeon 05-04-2020 COVID-19 Positive/Negative Negative Negative [facility] Comment on above: Testing for SARS-CoV -2 by RT-PCRThis test was developed and its performance characteristics determined by [employer] ([employer]) and validated at the [facility] [place] [facility]. This test has not been FDA [...] 05-04-2020 Coronavirus 2019 PCR Interp N/A [facility] Automated basophil %on 04-24 Basophils/100 WBC (Bld) 0.6 % [facility] Automated basophil counton 0 04-24-2020 Basophils (Bld) [#/Vol] 0.0 10*3/uL 0.0-0.2 [facility] Automated blood lymphocyte c ount (number/volume)on 04-24-2020 Lymphocytes (Bld) [#/Vol] 1.0 10*3/uL 1.00-4.8 [facility] Automated blood lymphocyte c ount as percentage of total leukocyteson 04-24-2020 Lymphocytes/100 WBC (Bld) 17.0 % [facility] Automated blood monocyte cou nton 04-24-2020 Monocytes (Bld) [#/Vol] 0.3 10*3/uL 0.0-0.8 [facility] Automated blood platelet cou nt (count/volume)on 04-24-2020 Platelets (Bld) [#/Vol] 224 10*3/uL 150-450 [facility] Automated blood platelet vikki n volume measurementon 04-24-2020 Platelet mean volume (Bld) [Entitic vol] 7.2 fL 6.3-10.7 [facility] Automated eosinophil %on Eosinophils/100 WBC (Bld) 3.5 % [facility] Automated eosinophil counton 04-24-2020 Eosinophils (Bld) [#/Vol] 0.2 10*3/uL 0.0-0.45 [facility] Automated erythrocyte distri bution width ratioon 04-24-2020 Erythrocyte distribution width (RBC) [Ratio] 13.0 % 11.9-15.3 [facility] Automated erythrocyte mean c orpuscular hemoglobin (mass per erythrocyte)on 04-24-2020 MCH (RBC) [Entitic mass] 27.7 pg 24.7-34.3 [facility] Automated erythrocyte mean c orpuscular hemoglobin concentration measurement (mass/volon 04-24-2020 MCHC (RBC) [Mass/Vol] 33.2 g/dL 32.0-35.0 [facility] Automated erythrocyte mean c orpuscular volumeon 04-24-2020 MCV (RBC) [Entitic vol] 83.3 fL 80-100 [facility] Automated erythrocytes count in urine sediment (number/area)on 04-24-2020 RBC Auto (Urine sed) [#/Area] None seen [HPF] [facility] Automated leukocytes count i n urine sediment (number/area)on 04-24-2020 WBC Auto (Urine sed) [#/Area] 0-1 [HPF] [facility] Automated monocyte %on 04-24 Monocytes/100 WBC (Bld) 6.1 % [facility] Automated neutrophil %on Neutrophils/100 WBC (Bld) 72.8 % [facility] Automated urine color determ inationon 04-24-2020 Color (U) Yellow Yellow [facility] Blood erythrocytes automated count (number/volume)on 04-24-2020 RBC (Bld) [#/Vol] 4.50 10*6/uL 3.60-5.00 [facility] Blood hemoglobin measurement (mass/volume)on 04-24-2020 Hemoglobin (Bld) [Mass/Vol] 12.5 g/dL 11.8-15.4 [facility] Blood leukocytes automated c ount (number/volume)on 04-24-2020 WBC (Bld) [#/Vol] 5.7 10*3/uL 3.8-11.6 [facility] Blood neutrophil count by au tomated method (number/volume)on 04-24-2020 Neutrophils (Bld) [#/Vol] 4.2 10*3/uL 1.8-7.7 [facility] Estimated glomerular filtrat ion rate (GFR) non- Americanon 04-24-2020 GFR/1.73 sq M predicted among non-blacks MDRD (S/P/Bld) [Vol rate/Area] mL/min/{1.73_m2} [facility] Hematocrit [Volume Fraction] of Blood by Automated counton 04-24-2020 Hematocrit (Bld) [Volume fraction] 37.5 % 34.0-46.4 [facility] Otheron 04-24-2020 GFR/1.73 sq M.predicted MDRD (S/P/Bld) [Vol rate/Area] mL/min/{1.73_m2} [facility] Comment on above: GFR estimated refere nce range: According to KDOQI guidelines, <60 ml/min/1.73m2 is sufficient to diagnose a patient with chronic kidney disease. Nucleated RBC/100 WBC (Bld) [Ratio] 0.1 % 0-0.5 [facility] Creatinine Clearance (Chem N/A [facility] Serum or plasma calcium kelly urement (mass/volume)on 04-24-2020 Calcium [Mass/Vol] 9.3 mg/dL 8.2-10.2 [facility] Serum or plasma chloride vikki surement (moles/volume)on 04-24-2020 Chloride [Moles/Vol] 101 mmol/L 95-114 [facility] Serum or plasma creatinine m easurement with calculation of estimated glomerular filtron 04-24-2020 Creatinine [Mass/Vol] 0.88 mg/dL 0.44-1.03 [facility] Serum or plasma glucose kelly urement (mass/volume)on 04-24-2020 Glucose [Mass/Vol] 116 mg/dL 70-100 [facility] Comment on above: ADA recommended refe rence rangeRandom Glucose Reference Range is dependent on time and content of last meal. Glucose of more than 200 mg/dL in a nonstressed, ambulatory subject supports the diagnosis of Diabetes Mellitus. Serum or plasma potassium me asurement (moles/volume)on 04-24-2020 Potassium [Moles/Vol] 3.8 mmol/L 3.5-5.1 [facility] Serum or plasma sodium measu rement (moles/volume)on 04-24-2020 Sodium [Moles/Vol] 136 mmol/L 136-146 [facility] Serum or plasma total carbon dioxide measurement (moles/volume)on 04-24-2020 CO2 [Moles/Vol] 23.1 mmol/L 22.0-30.0 [facility] Serum or plasma urea nitroge n measurement (mass/volume)on 04-24-2020 Urea nitrogen [Mass/Vol] 10 mg/dL 9-23 [facility] Specific gravity of Urine by Automated test stripon 04-24-2020 Specific gravity (U) [Rel density] 1.007 1.001-1.030 [facility] Squamous epithelial cells de tection in urine sediment by light microscopyon 04-24-2020 Epithelial cells.squamous LM Ql (Urine sed) None seen [HPF] [facility] Urinalysison 04-24-2020 Hyaline casts LM Ql (Urine sed) None seen [LPF] [facility] Urine bacteria detection by automated methodon 04-24-2020 Bacteria Auto Ql (U) None seen None Seen [facility] Urine clarity by refractomet ry automatedon 04-24-2020 Clarity Refractometry automated (U) Clear Clear [facility] Urine glucose measurement by automated test strip (mass/volume)on 04-24-2020 Glucose Auto test strip (U) [Mass/Vol] Normal mg/dL Normal [facility] Urine hemoglobin detection b y automated test stripon 04-24-2020 Hemoglobin Auto test strip Ql (U) Negative Negative [facility] Urine ketones measurement by automated test strip (mass/volume)on 04-24-2020 Ketones (U) [Mass/Vol] Negative Negative [facility] Urine leukocyte esterase det ection by automated test stripon 04-24-2020 Leukocyte esterase Auto test strip Ql (U) 1+ Negative [facility] Urine nitrite detection by t est stripon 04-24-2020 Nitrite Ql (U) Negative Negative [facility] Urine pH measurement by auto mated test stripon 04-24-2020 pH (U) 5.5 [pH] 5.0-9.0 [facility] Urine protein measurement by automated test strip (mass/volume)on 04-24-2020 Protein (U) [Mass/Vol] Negative Negative [facility] Urine total bilirubin detect ion by test stripon 04-24-2020 Bilirubin Ql (U) Negative Negative [facility] Urine urobilinogen measureme nt by automated test strip (mass/volume)on 04-24-2020 Urobilinogen (U) [Mass/Vol] Normal mg/dL Normal [facility] CT L-SPINE WO CONTRASTon CT L-SPINE WO CONTRAST Patient Name: LEELEE CEDILLO STUDY: CT L-SPINE WO CONTRAST;; 10/13/2018 12:05 pm INDICATION: Low back pain LUMBAGO. COMPARISON: None. ACCESSION NUMBER(S): [id number] ORDERING CLINICIAN: HAMLET GILMAN TECHNIQUE: Axial sections [...] combination with facet joint arthropathy noted causing [id number]-oh-[id number] left neural foramina narrowing. Transpedicular screws of [...] left lateral recess, left neural foramina and vkty-el-trmmpyln right neural foramina narrowing. IMPRESSION: Postoperative and [...] Electronically signed by: PATRICIA MURRAY MD Normal [facility] SPINE, ENTIRE THORACIC/LUMBA R, INCLUDE [...] pm INDICATION: LUMBAGO. COMPARISON: None ACCESSION NUMBER(S): [id number]; [id number] ORDERING CLINICIAN: HAMLET GILMAN FINDINGS: Long radiograph [...] Electronically signed by: ADELE BA MD Normal [facility] SPINE, LUMBOSACRAL; CMPLT(BE NDING)on 10-13-2018 SPINE, LUMBOSACRAL; CMPLT(BENDING) Patient Name: LEELEE CEDILLO STUDY: SPINE, ENTIRE THORACIC/LUMBAR, INCLUDE SKULL, CERVICAL ANSD SACRAL SPINE WHEN PERFORMED 2 OR 3 VIEW; SPINE, LUMBOSACRAL CMPLT(BENDING); 10/13/2018 12:05 pm INDICATION: LUMBAGO. COMPARISON: None ACCESSION NUMBER(S): [id number]; [id number] ORDERING CLINICIAN: HAMLET GILMAN FINDINGS: Long radiograph [...] acuity. Electronically signed by: ADELE BA MD [facility] Vital Signs Date Time Vital Sign Value Performing Clinician Facility 08-07-2023 11:44-0400 Diastolic blood pressure 86 mm[Hg] MD Sara Vick Work Phone: [facility] 08-07-2023 11:44-0400 Heart rate 67 /min MD Sara Vick Work Phone: [facility] 08-07-2023 11:44-0400 SaO2% (BldA) [Mass fraction] 99 % MD Sara Vick Work Phone: [facility] 08-07-2023 11:44-0400 Systolic blood pressure 132 mm[Hg] MD Sara Vick Work Phone: [facility] 07-01-2023 10:26-0400 Body height 172.72 cm MD Sara Vick Work Phone: [facility] 07-01-2023 10:26-0400 Body mass index (BMI) [Ratio] 29.5 kg/m2 MD Sara Vick Work Phone: [facility] 07-01-2023 [id number] Body temperature 97.2 [degF] MD Sara Vick Work Phone: [facility] 07-01-2023 10:26-040 Body weight 87.99 kg MD Sara Vick Work Phone: [facility] 07-01-2023 10:26-0400 Diastolic blood pressure 78 mm[Hg] MD Sara Vick Work Phone: [facility] 07-01-2023 10:26-0400 Heart rate 78 /min MD Sara Vick Work Phone: [facility] 07-01-2023 10:26-0400 SaO2% (BldA) [Mass fraction] 98 % MD Sara Vick Work Phone: [facility] 07-01-2023 10:26-0400 Systolic blood pressure 120 mm[Hg] MD Sara Vick Work Phone: [facility] 06-30-2023 14:39-0400 Diastolic blood pressure 70 mm[Hg] MD Sara Vick Work Phone: [facility] 06-30-2023 14:39-0400 Heart rate 75 /min MD Sara Vick Work Phone: [facility] 06-30-2023 14:39-0400 SaO2% (BldA) [Mass fraction] 99 % MD Sara Vick Work Phone: [facility] 06-30-2023 14:39-0400 Systolic blood pressure 110 mm[Hg] MD Sara Vick Work Phone: [facility] 06-24-2023 13:13-0500 Body height 172.7 cm Ghanshyam Lombardi MD Work Phone: [facility] 06-24-2023 13:13-0500 Body weight 87.4 kg Ghanshyam Lombardi MD Work Phone: [facility] 06-24-2023 13:13-0500 Diastolic blood pressure 56 mm[Hg] Ghanshyam Lombardi MD Work Phone: [facility] 06-24-2023 13:13-0500 Heart rate 93 /min Ghanshyam Lombardi MD Work Phone: [facility] 06-24-2023 13:13-0500 Respiratory rate 18 /min Ghanshyam Lombardi MD Work Phone: [facility] 06-24-2023 13:13-0500 SaO2% (BldA) [Mass fraction] 97 % Ghanshyam Lombardi MD Work Phone: [facility] 06-24-2023 13:13-0500 Systolic blood pressure 115 mm[Hg] Ghanshyam Lombardi MD Work Phone: [facility] 05-15-2023 09:00-0500 Body weight 90.18 kg Larry Brown Other [facility] [employer] Other 05-15-2023 09:00-0500 Body weight 90.17 kg MD Sara Vick Work Phone: [facility] 05-15-2023 09:00-0500 Diastolic blood pressure 86 mm[Hg] Larry Brown Other [facility] 05-15-2023 09:00-0500 SaO2% (BldA) [Mass fraction] 99 % Larryrandy Brown Other [facility] [employer] Other 05-15-2023 09:00-0500 Systolic blood pressure 148 mm[Hg] Larry Brown Other [facility] 05-13-2023 11:15-0500 Body height 175.26 cm Kiran Kessler Other [facility] 05-13-2023 11:15-0500 Body mass index (BMI) [Ratio] 29.24 kg/m2 Kiran Kessler Other [facility] Other 05-13-2023 11:15-0500 Body temperature 96.9 [degF] Kiran Kessler Other [facility] Other 05-13-2023 11:15-0500 Body weight 89.81 kg Kiran Kessler Other [facility] 05-13-2023 11:15-0500 Diastolic blood pressure 80 mm[Hg] Kiran Kessler Other [facility] 05-13-2023 11:15-0500 SaO2% (BldA) [Mass fraction] 99 % Kiran Kessler Other [facility] Other 05-13-2023 11:15-0500 Systolic blood pressure 140 mm[Hg] Kiran Kessler Other [facility] 04-03-2023 10:15-0500 Body height 175.26 cm Larry Stephanie Other [facility] Other 04-03-2023 10:15-0500 Diastolic blood pressure 74 mm[Hg] Larryrandy Brown Other [facility] Other 04-03-2023 10:15-0500 SaO2% (BldA) [Mass fraction] 99 % Larry Stephanie Other [facility] Other 04-03-2023 10:15-0500 Systolic blood pressure 118 mm[Hg] Larryrandy Brown Other [facility] Other 03-25-2023 11:05-0500 Diastolic blood pressure 75 mm[Hg] MD Sara Vick Work Phone: [facility] 03-25-2023 11:05-0500 Heart rate 72 /min MD Sara Vick Work Phone: [facility] 03-25-2023 11:05-0500 Respiratory rate 18 /min MD Sara Vick Work Phone: [facility] 03-25-2023 11:05-0500 SaO2% (BldA) [Mass fraction] 97 % MD Sara Vick Work Phone: [facility] 03-25-2023 11:05-0500 Systolic blood pressure 146 mm[Hg] MD Sara Vick Work Phone: [facility] 03-25-2023 10:27-0500 Inhaled oxygen flow rate 3 L/min MD Sara Vick Work Phone: [facility] 03-25-2023 10:14-0500 Body height 173.99 cm MD Sara Vick Work Phone: [facility] 03-25-2023 10:14-0500 Body weight 88.45 kg MD Sara Vick Work Phone: [facility] 01-27-2023 14:30-0400 Body height 175.26 cm Dominique Shane Other [employer] Other 01-27-2023 14:30-0400 Diastolic blood pressure 70 mm[Hg] Dominique Shane Other [employer] Other 01-27-2023 14:30-0400 SaO2% (BldA) [Mass fraction] 98 % Dominique Shane Other [employer] Other 01-27-2023 14:30-0400 Systolic blood pressure 118 mm[Hg] Dominique Shane Other [employer] Other 01-09-2023 10:15-0400 Body height 175.26 cm Larry Brown Other [employer] Other 01-09-2023 10:15-0400 Body mass index (BMI) [Ratio] 29.56 kg/m2 Larry Bronw Other [employer] Other 01-09-2023 10:15-0400 Body weight 90.81 kg Larry Brown Other [employer] Other 01-09-2023 10:15-0400 Diastolic blood pressure 78 mm[Hg] Larry Brown Other [employer] Other 01-09-2023 10:15-0400 SaO2% (BldA) [Mass fraction] 98 % Larry Brown Other [employer] Other 01-09-2023 10:15-0400 Systolic blood pressure 130 mm[Hg] Larry Brown Other [employer] Other 12-12-2022 09:30-0400 Body height 175.26 cm Larry Brown Other [employer] Other 12-12-2022 09:30-0400 Body mass index (BMI) [Ratio] 29.77 kg/m2 Larry Brown Other [employer] Other 12-12-2022 09:30-0400 Body weight 91.45 kg Larry Brown Other [employer] Other 12-12-2022 09:30-0400 Diastolic blood pressure 74 mm[Hg] Larry Brown Other [employer] Other 12-12-2022 09:30-0400 SaO2% (BldA) [Mass fraction] 99 % Larry Brown Other [employer] Other 12-12-2022 09:30-0400 Systolic blood pressure 122 mm[Hg] Larry Brown Other [employer] Other 09-19-2022 12:00-0400 Body height 175.26 cm Larry Brown Other [employer] Other 09-19-2022 12:00-0400 Body mass index (BMI) [Ratio] 30.8 kg/m2 Larry Brown Other [employer] Other 09-19-2022 12:00-0400 Body weight 94.62 kg Larry Brown Other [employer] Other 09-19-2022 12:00-0400 SaO2% (BldA) [Mass fraction] 95 % Larry Brown Other [employer] Other 09-18-2022 10:40-0400 Body height 172.7 cm Perfecto Burch MD Work Phone: [facility] [employer] [facility] 09-18-2022 10:40-0400 Body mass index (BMI) [Ratio] 31.26 kg/m2 Perfecto Burch MD Work Phone: [facility] [employer] [facility] 09-18-2022 10:40-0400 Body temperature 96.4 [degF] Perfecto Burch MD Work Phone: [facility] [employer] [facility] 09-18-2022 10:40-0400 Body weight 93.26 kg Perfecto Burch MD Work Phone: [facility] 07-27-2022 15:38-0400 Hourly Rounding [facility] 07-27-2022 15:38-0400 Promise to Return [facility] 07-27-2022 14:38-0400 Hourly Rounding [facility] 07-27-2022 14:38-0400 Promise to Return [facility] 07-27-2022 13:38-0400 Hourly Rounding [facility] 07-27-2022 13:38-0400 Promise to Return [facility] 07-27-2022 12:08-0400 Heart rate 106 /min [facility] 07-27-2022 12:08-0400 SaO2% (BldA) [Mass fraction] 100 % [facility] 07-27-2022 12:07-0400 Diastolic blood pressure 79 mm[Hg] [facility] 07-27-2022 12:07-0400 Mean blood pressure 103 mm[Hg] [facility] 07-27-2022 12:07-0400 Systolic blood pressure 151 mm[Hg] [facility] 07-27-2022 12:06-0400 Body temperature 97.16 [degF] [facility] 07-27-2022 07:46-0400 Heart rate 82 /min [facility] 07-27-2022 07:46-0400 SaO2% (BldA) [Mass fraction] 97 % [facility] 07-27-2022 07:46-0400 Diastolic blood pressure 81 mm[Hg] [facility] 07-27-2022 07:46-0400 Mean blood pressure 116 mm[Hg] [facility] 07-27-2022 07:46-0400 Systolic blood pressure 186 mm[Hg] [facility] 07-27-2022 07:45-0400 Body temperature 97.52 [degF] [facility] 07-27-2022 01:46-0400 Heart rate 89 /min [facility] 07-27-2022 01:46-0400 SaO2% (BldA) [Mass fraction] 96 % [facility] 07-27-2022 01:45-0400 Diastolic blood pressure 67 mm[Hg] [facility] 07-27-2022 01:45-0400 Mean blood pressure 89 mm[Hg] [facility] 07-27-2022 01:45-0400 Systolic blood pressure 134 mm[Hg] [facility] 07-27-2022 01:45-0400 Body temperature 98.06 [degF] [facility] 07-27-2022 01:45-0400 Blood Pressure Location [facility] 07-27-2022 01:45-0400 Respiratory rate 18 /min [facility] 07-26-2022 20:00-0400 Respiratory rate 16 /min [facility] 07-26-2022 17:20-0400 Blood Pressure Location [facility] 07-26-2022 17:20-0400 Heart rate 78 /min [facility] 07-26-2022 15:30-0400 Respiratory rate 12 /min [facility] 07-26-2022 15:00-0400 Mean blood pressure 122 mm[Hg] [facility] 07-26-2022 15:00-0400 Respiratory rate 8 /min [facility] 07-26-2022 14:30-0400 Mean blood pressure 112 mm[Hg] [facility] 07-26-2022 14:30-0400 Respiratory rate 12 /min [facility] 07-26-2022 13:30-0400 Mean blood pressure 95 mm[Hg] [facility] 07-26-2022 11:35-0400 gluc 105 mg/dL [facility] 07-26-2022 11:35-0400 gluc [facility] 07-26-2022 11:35-0400 Heart rate 72 /min [facility] 07-26-2022 11:35-0400 Respiratory rate 18 /min [facility] 05-02-2022 10:00-0500 Body height 175.26 cm Larry Stephanie Other [employer] [employer] Other 05-02-2022 10:00-0500 Body mass index (BMI) [Ratio] 31.89 kg/m2 Larry Brown Other [employer] Other 05-02-2022 10:00-0500 Body weight 97.98 kg Larry Brown Other [employer] Other 05-02-2022 10:00-0500 Diastolic blood pressure 80 mm[Hg] Larry Brown Other [facility] Other 05-02-2022 10:00-0500 Systolic blood pressure 134 mm[Hg] Larry Brown Other [facility] Other 03-08-2022 17:00-0500 Diastolic blood pressure 117 mm[Hg] [facility] 03-08-2022 17:00-0500 Mean blood pressure 131 mm[Hg] [facility] 03-08-2022 17:00-0500 SaO2% (BldA) [Mass fraction] 95 % [facility] 03-08-2022 17:00-0500 Systolic blood pressure 160 mm[Hg] [facility] 03-08-2022 16:30-0500 Diastolic blood pressure 85 mm[Hg] [facility] 03-08-2022 16:30-0500 Heart rate 75 /min [facility] 03-08-2022 16:30-0500 Mean blood pressure 94 mm[Hg] [facility] 03-08-2022 16:30-0500 Respiratory rate 15 /min [facility] 03-08-2022 16:30-0500 SaO2% (BldA) [Mass fraction] 98 % [facility] 03-08-2022 16:30-0500 Systolic blood pressure 112 mm[Hg] [facility] 03-08-2022 16:10-0500 Diastolic blood pressure 74 mm[Hg] [facility] 03-08-2022 16:10-0500 Heart rate 93 /min [facility] 03-08-2022 16:10-0500 Mean blood pressure 90 mm[Hg] [facility] 03-08-2022 16:10-0500 Respiratory rate 14 /min [facility] 03-08-2022 16:10-0500 SaO2% (BldA) [Mass fraction] 98 % [facility] 03-08-2022 16:10-0500 Systolic blood pressure 122 mm[Hg] [facility] 03-08-2022 15:15-0500 Respiratory rate 18 /min [facility] 03-08-2022 15:00-0500 Hourly Rounding [facility] 03-08-2022 15:00-0500 Promise to Return [facility] 03-08-2022 14:45-0500 Respiratory rate 20 /min [facility] 03-08-2022 14:15-0500 Respiratory rate 20 /min [facility] 03-08-2022 14:14-0500 Hourly Rounding [facility] 03-08-2022 14:14-0500 Promise to Return [facility] 03-08-2022 13:54-0500 Heart rate 99 /min Wm Nagy [facility] 03-08-2022 13:37-0500 Body temperature 97.7 [degF] Wm [facility]y [facility] 03-08-2022 13:37-0500 Heart rate 104 /min Wm [facility]y [facility] 03-08-2022 13:00-0500 Hourly Rounding Wm [facility]y [facility] 03-08-2022 13:00-0500 Promise to Return Wm Nagy [facility] 03-07-2022 11:00-0500 Body height 175.26 cm Larry Carrilloky Other [employer] Other 03-07-2022 11:00-0500 Body mass index (BMI) [Ratio] 32.54 kg/m2 Larry Stephanie Other [employer] Other 03-07-2022 11:00-0500 Body weight 99.97 kg Larry Carrilloky Other [employer] Other 03-07-2022 11:00-0500 SaO2% (BldA) [Mass fraction] 99 % Larryrandy Brown Other [employer] Other 06-20-2017 09:19-0500 PAIN LEVEL 0 {score} [...] 06-19-2017 18:47-0500 Body Temperature 97.9 [degF] Praveen Byunm 06-19-2017 18:46-0500 Body Temperature 97.9 [degF] Praveen Bnyum 06-19-2017 18:46-0500 BP Diastolic 81 mm[Hg] Praveen [...] 06-19-2017 00:26-0500 BP Diastolic 77 mm[Hg] Praveen yBnum 06-19-2017 00:26-0500 BP Systolic 156 mm[Hg] Praveen [...] Start: 10-30-2023 End: 10-30-2023 ambulatory SARA VICK Facility:[facility] Start: 08-08-2023 End: 08-08-2023 ambulatory GHANSHYAM LOMBARDI Facility:[facility] Start: 08-08-2023 End: 08-08-2023 Subsequent hospital visit by physician Mri 6 Radio Main Q (I-Stat/1.5t/3t) Work Phone: MRI Q Comment on above: 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, 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] Start: 08-07-2023 End: 08-07-2023 ambulatory MD Sara Vick Work Phone: [facility] Work Phone: Start: 08-07-2023 End: 08-07-2023 Patient encounter procedure MD Sara Vick Work Phone: [facility] [place] Work Phone: Start: 08-05-2023 End: 08-06-2023 ambulatory ANNIE J PRINTY Not Available Start: 07-15-2023 End: 07-15-2023 ambulatory ANNIE PRINTY Not Available Start: 07-13-2023 End: 07-13-2023 ambulatory GHANSHYAMEVELINE LOMBARDI Facility:[facility] Start: 07-13-2023 End: 07-13-2023 Subsequent hospital visit by physician [facility] D[facility] Work Phone: Radiology Comment on above: Chronic bilateral lo w back pain with bilateral sciatica [M54.42, M54.41, G89.29] Start: 07-01-2023 End: 07-01-2023 Patient encounter procedure MD Sara Vick Work Phone: [facility] Work Phone: Start: 06-30-2023 End: 06-30-2023 Patient encounter procedure MD Sara Vick Work Phone: [facility] Work Phone: Start: 06-29-2023 End: 06-29-2023 ambulatory ANNIE J PRINTY Not Available Start: 06-24-2023 End: 06-24-2023 Patient encounter procedure Ghanshyam Lombardi MD Work Phone: [facility] [place] Comment on above: 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); Chronic bilateral low back pain with bilateral sciatica Start: 06-24-2023 End: 06-24-2023 ambulatory GHANSHYAM LOMBARDI Facility:[facility] Start: 06-24-2023 End: 06-24-2023 Subsequent hospital visit by physician Xr Main Qb1 Radiology Comment on above: 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] Start: 05-22-2023 End: 05-22-2023 ambulatory Sara Vick Facility:[facility] Start: 05-22-2023 End: 05-22-2023 ambulatory MD Sara Vick Work Phone: [facility] Work Phone: Start: 05-22-2023 End: 05-22-2023 Patient encounter procedure MD Sara Vick Work Phone: [facility] [place] Work Phone: Start: 05-20-2023 End: 05-20-2023 ambulatory Sara Vick Facility:[facility] Start: 05-20-2023 End: 05-20-2023 Discharged Recurring MD Sara Vick Work Phone: [facility] [address] Start: 05-20-2023 Registered Recurring MD Gideon Vick Work Phone: [facility] [address] Start: 05-18-2023 Patient encounter procedure MD Sara Vick Work Phone: [facility]- Start: 05-15-2023 End: 05-15-2023 ambulatory Larry Brown Other [employer] Other Start: 05-15-2023 Office outpatient vi sit 25 minutes Larry Brown [facility] [place] Start: 05-15-2023 End: 05-15-2023 Patient encounter procedure MD Sara Vick Work Phone: [facility]- Start: 05-13-2023 End: 05-13-2023 ambulatory Kiran Kessler Other [employer] Other Start: 05-13-2023 Office outpatient ne w 60 minutes Kiran Kessler [facility] Start: 05-13-2023 End: 05-13-2023 Patient encounter procedure MD Sara Vick Work Phone: [facility]- Start: 04-16-2023 End: 04-16-2023 ambulatory Dominique Shane Other [employer] Other Start: 04-16-2023 Telephone encounter Dominique Shane [facility] Start: 04-03-2023 End: 04-03-2023 ambulatory Larry Brown Other [employer] Other Start: 04-03-2023 Office outpatient vi sit 15 minutes Larry Brown [facility] [place] Start: 04-03-2023 End: 04-03-2023 Patient encounter procedure MD Sara Vick Work Phone: [facility] [place] Work Phone: Start: 03-25-2023 (PROC) PROCEDURE Larry Brown [facility] Start: 03-25-2023 End: 03-25-2023 ambulatory Sara Vick Facility:[facility] Start: 03-25-2023 End: 03-25-2023 Admission to same day surgery center MD Sara Vick Work Phone: [facility] Work Phone: Start: 03-25-2023 End: 03-25-2023 ambulatory MD Sara Vick Work Phone: [facility] Work Phone: Start: 03-06-2023 End: 03-06-2023 Patient encounter procedure MD Sara Vick Work Phone: [facility] [place] Work Phone: Start: 02-10-2023 End: 02-10-2023 ambulatory Dominique Shane Other [employer] Other Start: 02-10-2023 Telephone encounter Dominique Shane [facility] Start: 01-27-2023 End: 01-27-2023 ambulatory Dominique Shane Other [employer] Other Start: 01-27-2023 Office outpatient vi sit 25 minutes Dominique Shane [facility] [place] Start: 01-27-2023 Telephone encounter Larry Stephanie [facility] Start: 01-09-2023 End: 01-09-2023 ambulatory Larry Stephanie Other [employer] Other Start: 01-09-2023 Office outpatient vi sit 25 minutes Larry Stephanie [facility] [place] Start: 12-12-2022 End: 12-12-2022 ambulatory Larry Stephanie Other [employer] Other Start: 12-12-2022 Office outpatient vi sit 25 minutes Larry Stephanie [facility] [place] Start: 11-22-2022 End: 11-22-2022 Emergency department patient visit [facility] Facility:[facility] Start: 09-19-2022 End: 09-19-2022 ambulatory Larry Stephanie Other [employer] Other Start: 09-19-2022 Office outpatient vi sit 25 minutes Larry Stephanie [facility] [place] Start: 09-18-2022 ambulatory PERFECTO BURCH [facility] Start: 09-18-2022 End: 09-18-2022 Office outpatient new 30 minutes Perfecto Burch MD Work Phone: [facility] Comment on above: 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, sequela (Primary Dx) Start: 09-18-2022 End: 09-18-2022 Subsequent hospital visit by physician Perfecto Burch MD Work Phone: [facility] Start: 09-17-2022 ambulatory ADELE FLEMING Faci lity:[facility] Start: 09-10-2022 End: 09-10-2022 ambulatory Sara Vick Facility:[facility] Start: 09-09-2022 End: 09-10-2022 ambulatory ADELE FLEMING Facility:[facility] Start: 09-08-2022 End: 09-09-2022 ambulatory Alley Naranjo Facility:[facility] Start: 08-18-2022 End: 08-19-2022 ambulatory ADELE FLEMING Facility:[facility] Start: 08-13-2022 ambulatory PERFECTO BURCH [facility] Start: 08-12-2022 End: 08-13-2022 ambulatory ADELE FLEMING Facility:[facility] Start: 08-08-2022 End: 08-09-[address] ALFRED UMAÑA Facility:[facility] Start: 08-01-2022 End: 08-02-2022 ambulatory ADELE FLEMING Facility:[facility] Start: 07-26-2022 End: 07-27-2022 ambulatory Julio Ferrara Facility:[facility] Start: 07-26-2022 End: 07-27-2022 Observation Franciscoalberto Alcazar [facility] Start: 07-25-2022 Encounter for preprocedural cardiovascular examination ADELE FLEMING [facility] Start: 07-25-2022 Encounter for preprocedural laboratory examination ADELE FLEMING [facility] Start: 07-24-2022 End: 07-25-2022 ambulatory DAELE FLEMING Facility:[facility] Start: 07-24-2022 End: 07-24-2022 ambulatory [...] 06-19-2022 ambulatory MD Sara Vick Work Phone: [facility] Work Phone: Start: 06-19-2022 End: 06-19-2022 Discharged Recurring MD Sara Vick Work Phone: [facility] [place] Work Phone: Start: 06-13-2022 End: 06-14-2022 ambulatory [...] 05-02-2022 End: 05-02-2022 ambulatory Larry Brown Other [employer] Other Start: 05-02-2022 Office outpatient vi sit 25 minutes Larry Brown [facility] [place] Start: 05-01-2022 End: 05-02-2022 ambulatory ADELE FLEMING Facility:[facility] Start: 04-22-2022 End: 04-23-2022 ambulatory ADELE FLEMING Facility:[facility] Start: 04-14-2022 End: 04-15-2022 ambulatory DEEPALI JANSEN Facility:[facility] Start: 04-08-2022 (PROC) PROCEDURE Larry Beck [facility] Start: 04-08-2022 End: 04-08-2022 ambulatory Larry Brown Other [employer] Other Start: 03-31-2022 End: 04-01-[address] ALFRED UMAÑA Facility:[facility] Start: 03-08-2022 End: 03-08-2022 Emergency department patient visit Wm Nagy Facility:[facility] Start: 03-08-2022 End: 03-08-2022 Emergency department patient visit Wm Nagy [facility] Start: 03-07-2022 End: 03-07-2022 ambulatory Larry Brown Other [employer] Other Start: 03-07-2022 Office consultation new/estab patient 60 min Larry Brown [facility] [place] Start: 03-06-2022 End: 03-07-[address] SARA VICK . Facility:[facility] Start: 01-03-2022 End: 01-03-[address] SARA VICK . Facility:[facility] Start: 12-09-2021 End: 12-10-2021 ambulatory SHAWANDA LITTLE Facility:[facility] Start: 11-05-2021 End: 11-06-2021 ambulatory ADELE Means [facility] Facility:[facility] Start: 10-07-2021 End: 10-07-2021 ambulatory PO SUAREZ . Facility:[facility] Start: 05-04-2020 End: 05-04-2020 Patient encounter procedure Sara Hoy -Pre-Surgical Testing Start: 05-02-2020 Registered Recurring Sara Vick -P hysical Therapy [facility] [place] Start: 04-24-2020 End: 04-24-2020 Patient encounter procedure Sara Hoy -Pre-Surgical Testing Start: 02-01-2020 End: 02-01-2020 Patient encounter procedure Sara Vick -[facility] Start: 06-29-2018 Patient encounter procedure Sara~[id number] UNKNOWN Hoy Facility:[facility] Start: 12-11-2017 End: 12-12-2017 Patient encounter DEFAULT PHYSICIAN Facility:[facility] Procedures Date Procedure Procedure Detail Performing Clinician Start: 08-08-2023 Mri spinal canal tho racic w/o contrast matrl Ghanshyam Lombardi MD Work Phone: Start: 07-13-2023 Ct lumbar spine w/o contrast material Ghanshyam Lombardi MD Work Phone: Start: 06-24-2023 End: 06-24-2023 Radex spine lumbosacral minimum 4 views 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: Start: 05-22-2023 Pulse volume recorde [...] for malignant neoplasm of breast Mammogram Screening [facility] Start: 06-23-2024 BP Controlled (<130/80) BP Controlled (<130/80) [facility] Start: 12-20-2023 Influenza vaccination Influenza Vaccine (Season Ended) [facility] Start: 05-22-2023 Pulse volume recorder pneumoplethysmography US arterial pvr rest [facility] Start: 05-22-2023 [facility] Start: 05-22-2023 Duplex scan of lower limb veins US venous duplex LE [facility] Start: 05-22-2023 US Lower extremity vein - bilateral [facility] Start: 04-20-2023 Advance Directive Discussion Advance Directive Discussion [facility] Start: 04-20-2023 Behavioral Health Screening Behavioral Health Screening [facility] Start: 04-20-2023 Depression Assessment Depression Assessment [facility] Start: 03-25-2023 [facility] Start: 02-28-2023 Screening for malignant neoplasm of breast Mammogram Screening [facility] Start: 12-19-2022 Covid-19 Vaccine ( season) Covid-19 Vaccine () [facility] Start: 12-19-2022 Influenza vaccination Influenza Vaccine (#1) [facility] Start: 01-28-2022 COVID-19 VACCINE (5 - Booster for Pfizer series) COVID-19 VACCINE (5 - Booster for Pfizer series) [facility] Start: 08-24-2019 Screening for malignant neoplasm of breast MAMMOGRAM SCREENING DISCUSSION [facility] Start: 12-20-2016 Screening for osteoporosis Bone Density Screening [facility] Start: 06-17-2014 Diabetes Screening Diabetes Screening [facility] Start: 2011 RSV Vaccine (1 - 1-dose 60+ series) RSV Vaccine (1 - 1-dose 60+ series) [facility] Start: 12-20-2001 Shingrix Vaccine (1 of 2) Shingrix Vaccine (1 of 2) [facility] Start: 12-20-2001 Zoster vaccine hzv live for subcutaneous use ZOSTER (SHINGLES) VACCINE (1 of 2) [facility] Start: 12-20-1996 Lipid panel Lipid Screening [facility] Start: 12-20-1996 Screening for malignant neoplasm of colon [facility] Start: 1991 Lipid panel LIPID SCREENING [facility] Start: 12-20-1972 Screening for malignant neoplasm of cervix CERVICAL CANCER SCREENING DISCUSSION [facility] Start: 12-20-1970 Third diphtheria, tetanus and acellular pertussis (DTaP) vaccination TDAP (ADULT) [facility] Start: 12-20-1970 Urine microalbumin profile DTaP,Tdap,Td Vaccine (1 - Tdap) [facility] Start: 12-20-1969 Annual PCP Team Chronic Disease Visit Annual PCP Team Chronic Disease Visit [facility] Start: 1950 Hepatitis C screening HEPATITIS C VIRUS SCREENING [facility] Start: 1950 Screening for osteoporosis DEXA SCAN DISCUSSION [facility] Start: 1950 Tetanus vaccination TETANUS [facility] End: 07-23-2024 CT Lumbar spine WO contrast CT LUMBAR SPINE WO IVCON Radiology Routine Chronic bilateral low back pain with bilateral sciatica 1 Occurrences starting 06/24/2023 until 07/23/2024 [facility] Work Phone: Comment on above: 1 Occurrences starting 06/24/2023 until 07/23/2024 End: 07-23-2024 MR Thoracic spine WO contrast MRI THORACIC SPINE WO IVCON Radiology Routine 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 1 Occurrences starting 06/24/2023 until 07/23/2024 [facility] Work Phone: Comment on above: 1 Occurrences starting 06/24/2023 until 07/23/2024 Patient Education Stephanie Non Diagn ostic Block [facility] Work Phone: Patient referral [facility] Work Phone: XR Knee - left 3 Views XR KNEE L EFT 3 VIEWS Imaging Routine Pain in prosthetic joint, sequela Ordered: 09/16/2022 [facility] Comment on above: Ordered: 09/16/2022 XR Pelvis and Hip - left Views X R HIP WITH PELVIS LEFT Imaging Routine Pain in prosthetic joint, sequela 09/18/2022 10:11 AM EDT [facility] Work Phone[facility] Immunizations Immunization Date Immunization Notes Care Provider Fa cili 02-11-2022 Influenza, injectabl e, Madin [place] Canine Kidney, preservative free, quadrivalent MD Sara Vick Work Phone: [facility] 02-11-2022 influenza virus vacc ine, unspecified formulation Ghanshyam Lombardi MD Work Phone: [facility] 12-03-2021 COVID-19 Comirnaty (Pfizer) Tri-Sucrose 12+ MD Sara Vick Work Phone: [facility] 03-25-2021 COVID-19 mRNA, Comir nicolle (Pfizer) MD Sara Vick Work Phone: [facility] 07-12-2020 COVID-19, mRNA, LNP- S, PF, 30 mcg/0.3 mL dose Wm Nagy [facility] Comment on above: Reason for Medicatio n: Prophylaxis 06-14-2020 COVID-19, mRNA, LNP- S, PF, 30 mcg/0.3 mL dose Wm Nagy [facility] Comment on above: Reason for Medicatio n: Prophylaxis 02-08-2020 Seasonal trivalent influenza vaccine, adjuvanted, preservative free MD Sara Vick Work Phone: [facility] 02-23-2018 influenza, injectabl e, madin josephine canine kidney, preservative free MD Sara Vick Work Phone: [facility] 02-18-2018 pneumococcal polysaccharide vaccine, 23 valent W[facility] Nagy [facility] 06-18-2017 tuberculin skin test ; unspecified formulation Praveen Bynum 02-24-2017 pneumococcal polysaccharide vaccine, 23 valent MD Sara Vick Work Phone: [facility] 02-05-2017 influenza, high dose seasonal, preservative-free MD Sara Vick Work Phone: [facility] 02-05-2017 pneumococcal conjuga te vaccine, 13 valent [facility] 02-02-2016 influenza, seasonal, injectable, preservative free MD Sara Vick Work Phone: [facility] 10-20-2012 pneumococcal polysaccharide vaccine, 23 valent Wm Nagy [facility] Payers Date Payer Category Payer Unknown [id number] 2022 Self-pay [id number] 2022 Unknown [id number] 2022 Private Health Insurance 2018 Medicare [id number] 1959 Private Health Insurance [id number] 1950 Unknown [id number] 2.16.84 0.1.452321.3.579.2.727 1950 Unknown [id number] 2.16.8 40.1.455110.3.579.2.159 1951 Unknown [id number] 2.16.84 0.1.838271.3.579.2.593 1951 Unknown [id number] 2.16.84 0.1.767160.3.579.2.593 1951 Unknown [id number] 2.16.84 0.1.558755.3.579.2.593 1951 Unknown [id number] 2.16.84 0.1.852976.3.579.2.593 1951 Unknown [id number] 2.16.84 0.1.660237.3.579.2.593 1951 Unknown [id number] 2.16.84 0.1.027075.3.579.2.593 1951 Unknown [id number] 2.16.84 0.1.180250.3.579.2.593 1951 Unknown [id number] 2.16.84 0.1.211154.3.579.2.593 1951 Unknown [id number] 2.16.84 0.1.223562.3.579.2.593 1951 Unknown [id number] 2.16.84 0.1.444894.3.579.2.593 1951 Unknown [id number] 2.16.84 0.1.111299.3.579.2.593 1951 Unknown [id number] 2.16.84 0.1.984640.3.579.2.593 1951 Unknown [id number] 2.16.84 0.1.510467.3.579.2.593 1951 Unknown [id number] 2.16.84 0.1.612798.3.579.2.593 1951 Unknown [id number] 2.16.84 0.1.080649.3.579.2.593 1951 Unknown [id number] 2.16.84 0.1.722668.3.579.2.593 1951 Unknown [id number] 2.16.84 0.1.663402.3.579.2.593 1951 Unknown [id number] 2.16.84 0.1.534114.3.579.2.593 1951 Unknown [id number] 2.16.84 0.1.438037.3.579.2.593 1951 Unknown [id number] 2.16.84 0.1.912442.3.579.2.593 1951 Unknown [id number] 2.16.84 0.1.634847.3.579.2.593 1951 Unknown [id number] 2.16.84 0.1.338585.3.579.2.593 1951 Unknown [id number] 2.16.84 0.1.515049.3.579.2.593 1951 Unknown [id number] 2.16.84 0.1.998830.3.579.2.593 1951 Unknown [id number] 2.16.84 0.1.434932.3.579.2.593 1951 Unknown [id number] 2.16.84 0.1.955665.3.579.2.593 1951 Unknown [id number] 2.16.84 0.1.670842.3.579.2.593 1951 Unknown [id number] 2.16.84 0.1.800574.3.579.2.593 1951 Unknown [id number] 2.16.84 0.1.618806.3.579.2.593 1951 Unknown [id number] 2.16.8 40.1.804268.3.579.2.983 1951 Unknown [id number] 2.16.8 40.1.182580.3.579.2.983 1951 Unknown [id number] 2.16.8 40.1.868070.3.579.2.983 1951 Unknown [id number] 2.16.8 40.1.476672.3.579.2.727 1951 Unknown [id number] 2.16.8 40.1.024319.3.579.2.727 1951 Unknown [id number] 2.16.8 40.1.937246.3.579.2.727 1951 Unknown [id number] 2.16.8 40.1.604835.3.579.2.727 1951 Unknown [id number] 2.16.84 0.1.917785.3.579.2.1259 1951 Unknown [id number] 2.16.84 0.1.593016.3.579.2.1259 1951 Unknown [id number] 2.16.84 0.1.566734.3.579.2.1259 Unknown Unknown [id number] Unknown [id number] 2.16.8 40.1.708179.3.579.2.531 Unknown [id number] 2.16.8 40.1.560437.3.579.2.531 Unknown [id number] 2.16.8 40.1.530131.3.579.2.531 Unknown [id number] 2.16.8 40.1.543451.3.579.2.531 Social History Date Type Detail Facility Start: 06-18-2017 Unknown if ever smoked [employer] Start: 04-24-2020 End: 06-24-2023 Tobacco smoking status FLIS Never smoked tobacco (finding) [facility] Start: 1950 Sex Assigned At Female F [facility] Start: 06-24-2023 Sex Assigned At F [facility] Start: 09-18-2022 Tobacco use and exposure Smokeless tobacco non-user [facility] Start: 09-18-2022 End: 06-24-2023 Alcohol intake Current drinker of alcohol (finding) [facility] Start: 09-18-2022 Alcohol Comment occasional [facility] Start: 1950 Sex Assigned At Not on file [facility] Start: 06-24-2023 Alcohol intake [facility] National Score (1-100), lower number is lower risk 62 [facility] Medical Equipment Procedure Code Equipment Code Equipment Origin al Text Equipment Identifier Dates Arthroplasty, knee, total, minimally invasive Orthopaedic cement, non-medicated [id number] FDA Start: 05-07-2020 Arthroplasty, knee, total, minimally invasive Uncoated knee femur prosthesis, metallic ()[id number] FDA Start: 05-07-2020 Arthroplasty, knee, total, minimally invasive Tibial insert ()[id number] FDA Start: 05-07-2020 Arthroplasty, knee, total, minimally invasive Uncoated knee tibia prosthesis, metallic ()[id number] FDA Start: 05-07-2020 Arthroplasty, knee, total, minimally invasive Polyethylene patella prosthesis ()[id number] FDA Start: 05-07-2020 Goals Date Patient Goal Desired Activity /State Functional Status Date Assessment Result Facility 07-26-2022 Functional Status No [facility] 07-26-2022 Functional Status [facility] 03-08-2022 Functional Status No [facility] Clinical Notes 10-07-2021 to 08-08-2023 [...] PATIENT PRESENTS WITH AN IMPLANTABLE OR ATTACHED SPECIAL EDUCATION PRESCHOOL TEACHER: No RADIOLOGY DEPARTMENT: MR; Exam(s) Completed: Spine: Thoracic spine PERIPHERAL IV DATA: Not applicable SIGNED BY: BAY Leo) August 08, 2023 3:59 PM documented in this encounter [facility] 08-08-2023 Note HNO ID: [id number] Author: FLOR ZIEGLER RT (R) Service: Radiology [...] PATIENT PRESENTS WITH AN IMPLANTABLE OR ATTACHED SPECIAL EDUCATION PRESCHOOL TEACHER: No RADIOLOGY DEPARTMENT: MR; Exam(s) Completed: Spine: Thoracic spine PERIPHERAL IV DATA: Not applicable SIGNED BY: RT Felipa(R) August 08, 2023 3:59 PM [facility] 07-13-2023 History of Present illness [...] PATIENT PRESENTS WITH AN IMPLANTABLE OR ATTACHED SPECIAL EDUCATION PRESCHOOL TEACHER: No RADIOLOGY DEPARTMENT: CT; Exam(s) Completed: Spine PERIPHERAL IV DATA: Not applicable SIGNED BY: RT Se(Bryce) July 13, 2023 10:44 AM documented in this encounter [facility] 07-13-2023 Note HNO ID: [id number] Author: TORRIE ABRAHAM RT(R) Service: Radiology Author [...] PATIENT PRESENTS WITH AN IMPLANTABLE OR ATTACHED SPECIAL EDUCATION PRESCHOOL TEACHER: No RADIOLOGY DEPARTMENT: CT; Exam(s) Completed: Spine PERIPHERAL IV DATA: Not applicable SIGNED BY: TorrieRT Courtney(R) July 13, 2023 10:44 AM [facility] 06-24-2023 Note HNO ID: [id number] Author: GHANSHYAM LOMBARDI MD Service: ? Author [...] discussion. 30 minutes spent Ghanshyam Lombardi MD [facility] 06-24-2023 History of Present illness [...] Ghanshyam Lombardi MD documented in this encounter [facility] 05-15-2023 Evaluation note Encounter Date [...] In the meantime, she can continue taking Hull as needed all as well as Gabapentin [...] and no personal patient information was compromised. [employer] Other 01-24-2024 Evaluation note* Encounter Date Diagnosis [...] agrees with plan all questions were addressed. [employer] Other 12-28-2023 Evaluation note* Encounter Date Diagnosis Assessment Notes Treatment Notes Treatment Clinical Notes Mar, Lumbar radiculopathy (ICD-10 - M54.16) 72 year old female evaluated via telephonic call for follow up and medication refill for chronic pain. She voices complaints of low back pain with intermittent radiation down the right lower extremity. She continues taking Hull with relief and is requesting a refill of this today. I discussed different treatment options in detail with the patient. She feels medication is managing her pain and does not wish to proceed with injections at this time. I encouraged the patient to start physical therapy as previously discussed. She can also continue taking medications as prescribed and I will refill her Hull as she feels this provides an element [...] pain (ICD-10 - G89.29) Continue medication management. [facility] Other 12-15-2023 Evaluation note* Encounter Date Diagnosis [...] pain (ICD-10 - G89.29) Continue medication management. [facility] Other 10-24-2023 Evaluation note* Encounter Date Diagnosis Assessment Notes Treatment Notes Treatment Clinical Notes Jan, Lumbar radiculopathy (ICD-10 - M54.16) [facility] Other 10-10-2023 Evaluation note* Encounter Date Diagnosis [...] regarding this. 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 Hydrocodone/Acetamin ophen was refilled today, opioid risk assessment was done as well as pill count. Patient is compliant with opioid medication. The patient denies any opioid related side effects. 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 Hydrocodone/Aceta minophen was refilled today, opioid risk assessment was done as well as pill count. Patient is compliant with opioid medication. The patient denies any opioid related side effects. Patients last urine drug screen was positive for alcohol, she is counselled against consuming alcohol. [facility] Other 08-25-2023 Evaluation note* Encounter Date Diagnosis [...] M51.36) Stable, follow up in 4 weeks. [facility] Other 06-02-2023 Evaluation note* Encounter Date Diagnosis [...] nerve blocks in the future if needed. [facility] Other 06-01-2023 History of Present illness Narrative* [...] 09/18/2022 10:58 AM Patient: Leelee Cedillo MR#: [id number] : 1950 Age: 71 y.o. Referring Physician: Sorin Dickerson DO Insurance: Pay[facility] P[facility] / Plan: MEDICARE [employer] HMO [...] repair GALL BLADDER SURGERY 1999 BACK SURGERY [id number]- FOOT SURGERY [id number] Family History: Her family history is not [...] [x]cane, []bracing Are you followed by a international broadcast music librarian? [] [x] Name: Are you followed by [...] repair GALL BLADDER SURGERY 1999 BACK SURGERY [id number]- FOOT SURGERY [id number] No family history on file. Social History [...] Rash Flagyl [Metronidazole] Dyspepsia [facility]Result Comment: Electronically Signed By: Rachel SALTER\.br\Date and Time Signed: 07/27/22 15:21 EDT\.br\Electronically Co-Signed By: Ottoniel RUFF, Francisco Beck\.br\Date and Time Co- Signed: 07/27/22 17:04 [id number] Hospital Discharge instructions Patient Education 07/27/2022 15:20:26 [...] Follow these instructions at home: Medicines Take ltbo-aoq-znoimyg and prescription medicines only as told by [...] 04/06/2006 Document Revised: 07/29/2019 Document Reviewed: 02/23/2019 [employer] Patient Education 2020 [employer] 07/27/2022 15:20:26 Vasovagal Syncope, Pediatric Vasovagal [...] ?Squatting. ?Moving his or her legs. Give nhkp-srn-yrvinwi and prescription medicines only as told by [...] 01/13/2009 Document Revised: 03/19/2018 Document Reviewed: 05/12/2017 [employer] Patient Education 2020 [employer]. Follow Up Care 07/26/2022 11:32:57 With:Sara Vick Address: [address] [place] [phone] Business (1) When: Unknown Comments:Call for followup appointment 7-10 days With:Julio Ferrara MD, NEU Address: [address] [place] [address]- When:2 to 4 weeks [facility]04-09-2023 Evaluation + Plan noteExtracted from: [...] With When Contact Information Sara Vick [address] [place] [address]- Business (1) Additional Instructions: Call for followup appointment 7-10 days Josias RUFF, CARLOS Thacker Within 2 to 4 weeks [address] [place] [address]- Additional Instructions: Near-Syncope Vasovagal Syncope, Pediatric Extracted [...] it is acute or subacute. It might box turner to just be some focal white [...] specified devices) recent right foot surgery in [facility]/podiatry secondary to non healing food wound. Currently has wound vac intact to this operative site. 6. Osteoarthritis (M19.90: Unspecified osteoarthritis, unspecified site) osteoarthritis status post left hip replacement Has chronic back pain. 7. Morbid obesity (E66.01: Morbid (severe) obesity due to excess calories) -BMI 70.73 -Library Cataloging Technician on diet, exercise, weight loss and lifestyle [...] plan. Diagnostic Tests Pending * HgbA1c 07/27/22 [facility]04-08-2023 NoteMercy HealthComment on above:Result Comment: Electronically Signed By: Rachel [...] if her pain increases in the future. [employer] Other [id number] NotePROCEDURE: XR FOOT RT MIN 3 VIEWS, [...] Electronically authenticated by: JULIO LOBATO Date: 2022-04-23 13:00[facility]01-04-2023 NotePROCEDURE: XR FOOT RT MIN 3 VIEWS, [...] Electronically authenticated by: JULIO LOBATO Date: 2022-04-23 13:00[facility]12-12-2022 NotePROCEDURE: XR ANKLE RT MIN 3 VIEWS [...] Electronically authenticated by: ALFRED UMAÑA Date: 2022-03-31 18:19[facility]11-19-2022 Hospital Discharge instructions Patient Education 03/08/2022 17:44:27 [...] 04/06/2006 Document Revised: 04/15/2017 Document Reviewed: 03/23/2017 [employer] Patient Education 2020 [employer] 03/08/2022 17:44:27 Hip Dislocation Hip Dislocation [...] Follow these instructions at home: Medicines Take qtkv-ayh-cdxmklb and prescription medicines only as told by your health care provider. Ask your health care provider if the medicine prescribed to you: ?Requires you to avoid driving or using heavy machinery. ?Can cause constipation. You may need to take actions to prevent or treat constipation, such as: ?Drink enough fluid to keep your urine pale yellow. ?Take dgkh-ark-yqhivrj or prescription medicines. ?Eat foods that are [...] in the [place] Do not drive yourself [facility]. Summary Hip dislocation happens when the ball [...] 12/30/2001 Document Revised: 12/29/2018 Document Reviewed: 12/30/2018 [employer] Patient Education 2020 [employer]. Follow Up Care 03/08/2022 13:37:46 With:Sorin DICKERSON Address: [address] [place] [address] Business (1) When:03/11/2022 17:44:09 Comments:Call to establish follow-up care. Wear brace until follow-up with orthopedic surgery. With:Sara Vick Address: [address] [place] [address] [place] [address]- Business (1) When:03/11/2022 17:43:29 Comments:Call the office [...] you develop any new or worsening symptoms. [facility]11-19-2022 Evaluation + Plan noteExtracted from: [...] XR Hip 2-3 Views Left + Pelvis [facility]11-18-2022 Evaluation note* Encounter Date Diagnosis [...] negative findings were considered in medical decision-making. [employer] Other [id number] NotePROCEDURE: XR FOOT RT MIN 3 VIEWS [...] Electronically authenticated by: JULIO LOBATO Date: 2021-10-07 11:44[facility] noteNo InformationN[facility] Other Evaluation noteNo assessment information available [facility] Work Phone: Evaluation note* Diagnosis Pain in prosthetic joint, sequela- Primary [facility] Diagnosis Adjacent segment disease of lumbar spine with history of fusion procedure- Primary Chronic bilateral low back pain with bilateral sciatica [facility] this [facility] [place] [facility] Diagnosis 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) documented in this encounter [facility] [place] [facility]* Diagnosis Chronic bilateral low back pain with bilateral sciatica documented in this encounter [facility] [place] [facility]* Diagnosis Onset Date Resolution Status Chronic pain acute Lumbar degenerative disc disease acute Lumbar radiculopathy acute Lumbosacral spondylosis acut e Sacroiliitis acute 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 [employer] yuandr gilman 2018 [employer] Other [employer] general Narrative - Reported* Type Description Date [...] 2 021 Surgical History back surgeries x5 [facility] [employer] yuandr gilman 2019 Hospitalization History see above [employer] Other Hisrovw general Narrative - Reported* Type Description Date [...] 2 021 Surgical History back surgeries x5 [facility] carisa-dr gilman 2018 Surgical History lazer surgery on her lt leg veins and she also had sclero tx on b/l legs 2022 Hospitalization History see above [employer] Other Hospital course Narrative No data available for this section [facility] No data available for this section [facility] (narrative)* Diagnostic Procedure Only (Routine) - Closed Specialty Diagnoses / Procedures Referred By Maximiliano dee Referred To Contact XR IMAGING Diagnoses Fusion of spine of thoracolumbar region Procedures XR SCOLIOSIS PA STAND/LAT 2V RADEX ENTIR THRC LMBR CRV SAC SPI W/SKULL 2/3 VW Ros Cedeño APRN.NETWORK SYSTEMS OPERATOR [address] [place] [address] Xr [facility] [place] [address] Referral ID Status Reason Start Date Expiration Date V isits Requested Visits Authorized [id number] Closed Auto-Generate d Referral 02/25/2023 03/26/2024 1 1 * Diagnostic Procedure Only (Routine) - Closed Specialty Diagnoses / Procedures Referred By Maximiliano dee Referred To Contact XR IMAGING Diagnoses Fusion of spine of thoracolumbar region Procedures XR LUMBAR MOTION 4V AP/LAT/ FLEX/EXT RADEX SPINE LUMBOSACRAL MINIMUM 4 VIEWS Ros Cedeño APRN.NETWORK SYSTEMS OPERATOR [address] [place] [id number] X[facility] [place] [address] Referral ID Status Reason Start Date Expiration Date V isits Requested Visits Authorized [id number] Closed Auto-Generate d Referral 02/25/2023 03/26/2024 1 1 [facility] for referral (narrative)* Diagnostic Procedure Only (Routine) - Closed Specialty Diagnoses / Procedures Referred By Maximiliano t Referred To Contact MR IMAGING Diagnoses 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 Procedures MRI THORACIC SPINE WO IVCON MRI SPINAL CANAL THORACIC W/O CONTRAST MATRL Ghanshyam Lombardi MD [address] [place] [address] Mr Imaging [place] [address] Referral ID Status Reason Start Date Expiration Date V isits Requested Visits Authorized [id number] Closed Auto-Generate d Referral 08/07/2023 09/07/2023 1 1 [facility] for visit Narrative* Diagnostic Procedure Only (Routine) - Closed Specialty Diagnoses / Procedures Referred By Maximiliano t Referred To Contact XR IMAGING Diagnoses Fusion of spine of thoracolumbar region Procedures XR SCOLIOSIS PA STAND/LAT 2V RADEX ENTIR THRC LMBR CRV SAC SPI W/SKULL 2/3 VW Ros Cedeño, ROCK CRUSHING MACHINE OPERATOR.NETWORK SYSTEMS OPERATOR [address] [place] [address] X[facility] [place] [address] Referral ID Status Reason Start Date Expiration Date V isits Requested Visits Authorized [id number] Closed Auto-Generate d Referral 02/25/2023 03/26/2024 1 1 [facility] Advance Directives No Advanced Directives [...] FOLLOW UP; PVR'S, FF ULTRASOUND DONE AT [facility] MED REFILL FOR CHRONIC [...] W/O CONTRAST MATERIAL Ghanshyam Lombardi MD [address] [facility] [place] [address] Ct Imaging [facility] Referral ID Status Reason Start Date Expiration Date Visits Requested Visits Authorized [id number] Pending Review Auto-Generat ed Referral 06/24/2023 07/23/2024 1 1 Specialty Diagnoses / Procedures Referred By Contac t Referred To Contact MR IMAGING Diagnoses 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 Procedures MRI THORACIC SPINE WO IVCON MRI SPINAL CANAL THORACIC W/O CONTRAST MATRL Ghanshyam Lombardi MD [address] [place] [id number] Mr Imaging [facility] Referral ID Status Reason Start Date Expiration Date Visits Requested Visits Authorized [id number] Pending Review Auto-Generat ed Referral 06/24/2023 07/23/2024 1 1 Specialty Diagnoses / Procedures Referred By Contac t Referred To Contact Diagnoses Pain in prosthetic joint, sequela Procedures XR HIP WITH PELVIS LEFT Perfecto Burch MD [address] [place] [address] Referral ID Status Reason Start Date Expiration Date V isits Requested Visits Authorized [id number] New Request 09/18/2022 10/13/2023 1 1 Specialty Diagnoses / Procedures Referred By Contac t Referred To Contact Diagnoses Pain in prosthetic joint, sequela Procedures XR KNEE LEFT 3 VIEWS Perfecto Burch MD [address] [place] [address] Referral ID Status Reason Start Date Expiration Date V isits Requested Visits Authorized [id number] New Request 09/16/2022 10/11/2023 1 1 Additional Source Comments INFORMATION SOURCE (unrecogn ized section and content) DATE CREATED AUTHOR 12/13/2017 [facility] DATE CREATED AUTHOR AUTHOR'S ORGANIZ ATION 07/10/2018 [facility] DATE CREATED AUTHOR AUTHOR'S ORGANIZ ATION 02/25/2019 [facility] DATE CREATED AUTHOR AUTHOR'S ORGANIZ ATION 03/01/2022 [facility] DATE CREATED AUTHOR AUTHOR'S ORGANIZ ATION 07/26/2022 [facility] DATE CREATED AUTHOR AUTHOR'S ORGANIZ ATION 09/27/2022 [facility] DATE CREATED AUTHOR AUTHOR'S ORGANIZ ATION 09/27/2022 [facility] DATE CREATED AUTHOR AUTHOR'S ORGANIZ ATION 11/26/2022 [facility] DATE CREATED AUTHOR AUTHOR'S ORGANIZ ATION 07/29/2023 [facility] y[facility] DATE CREATED AUTHOR AUTHOR'S ORGANIZ ATION 08/09/[address] [facility] dical Specialists EPIC DATE CREATED AUTHOR AUTHOR'S ORGANIZ ATION 11/05/2023 [facility] REASON FOR VISIT (unrecogniz ed section and content) Specialty Diagnoses / Procedures Referred By Contac t Referred To Contact Diagnoses Pain in prosthetic joint, sequela Procedures XR HIP WITH PELVIS LEFT Perfecto Burch MD [address] [place] [address] Referral ID Status Reason Start Date Expiration Date V isits Requested Visits Authorized [id number] New Request 09/18/2022 10/13/2023 1 1 Reason Comments Pain New Patient Reason Comments New Patient Specialty Diagnoses / Procedures Referred By Contac t Referred To Contact CT IMAGING Diagnoses Chronic bilateral low back pain with bilateral sciatica Procedures CT LUMBAR SPINE WO IVCON CT LUMBAR SPINE W/O CONTRAST MATERIAL Ghanshyam Lombardi MD [address] [place] [address] Ct Imaging [facility] Referral ID Status Reason Start Date Expiration Date V isits Requested Visits Authorized [id number] Closed Auto-Generate d Referral 07/11/2023 08/10/2023 2 [...] A17 300 Ghanshyam Lombardi MD [address] [place] [address] Radio M[facility] Main [address] [place] [id number] Referral ID Status Reason Start Date Expiration Date Visits Re quested Visits Authorized [id number] Closed 08/07/2023 09/07/2023 1 1 Patient Care team informatio n (unrecognized section and content) Team Status: Active Member Role Status Dates Sara Vick MD Primary Care Provider Active Team Status: Inactive Member Role Status Dates Sara Vick MD Primary Care Provider, Attending Pr dusty Active Warp Tier Relationship Specialty Start Date End Date Sara Vick MD [address] [place] [address] PCP - General Family Medicine 04/09/22 Warp Tier Relationship Specialty Start Date End Date Sara Vick MD [address] [place] [address] PCP - General Family Medicine 04/09/22 Team [...] May 22, 2023 End: May 22, 2023 Warp Tier Relationship Specialty Start Date End Date Sara Vick MD PCP - General Family Medicine 06/09/11 Warp Tier Relationship Specialty Start Date End Date Sara Vick MD PCP - General Family Medicine 06/09/11 Warp Tier Relationship Specialty Start Date End Date Sara [...] or prosecute any alcohol or drug abuse patient.[facility] CenterIn the event this information is protected by the Federal Confidentiality of Alcohol and Drug Abuse Patient Records regulations: The Federal rules restrict any use of the information to criminally investigate or prosecute any alcohol or drug abuse patient.[facility] Center[facility] the event this information is protected by the Federal Confidentiality of Alcohol and Drug Abuse Patient Records regulations: The Federal rules restrict any use of the information to criminally investigate or prosecute any alcohol or drug abuse patient.[facility] CenterIn the event this information is protected by the Federal Confidentiality of Alcohol and Drug Abuse Patient Records regulations: The Federal rules restrict any use of the information to criminally investigate or prosecute any alcohol or drug abuse patient.[facility] FOR RECORDS PERTAINING TO PATIENTS [...] RECORDS. [facility]. provides no warranty or guarantee of the accuracy or completeness of information in this document.
[2024-10-12 08:56] LABS: Basophils Percent Auto 0.5 % (0.2-2.0); Eosinophils Absolute Auto 0.1 10^3/uL (0.0-0.7); Eosinophils Percent Auto 1.2 % (0.9-7.0); Hematocrit 39.5 % (36.0-48.0); Hemoglobin 13.6 g/dL (12.0-16.0); Immature Granulocytes Abs Auto 0.05 10^3/uL (0.00-0.03); Immature Granulocytes Pct Auto 0.6 % (0.0-0.5); Lymphocytes Absolute Auto 1.6 10^3/uL (1.2-3.8); Lymphocytes Percent Auto 18.7 % (20.5-60.0); Mean Corpuscular HGB Conc 34.4 g/dL (29.9-35.2); Mean Corpuscular Hemoglobin 31.1 pg (26.7-34.0); Mean Corpuscular Volume 90.2 fL (81.0-99.0); Mean Platelet Volume 8.2 fL (9.5-13.5); Monocytes Absolute Auto 0.5 10^3/uL (0.3-0.8); Monocytes Percent Auto 5.6 % (1.7-12.0); Neutrophils Absolute Auto 6.3 10^3/uL (1.4-6.5); Neutrophils Percent Auto 73.4 % (43.0-75.0); Platelet Count 233 10^3/uL (150-450); Red Blood Count 4.38 10^6/uL (4.20-5.40); White Blood Count 8.6 10^3/uL (4.0-11.0)
[2024-10-12 09:15] LABS: INR 0.97; Partial Thromboplastin Time 25.9 sec (22.3-36.2); Prothrombin Time 10.3 sec (9.0-11.6)
[2024-10-12 10:20] LABS: Alanine Aminotransferase 19 U/L (14-59); Albumin Globulin Ratio 0.8; Albumin Level 3.2 g/dL (3.4-5.0); Alkaline Phosphatase 94 U/L (46-116); Aspartate Amino Transferase 17 U/L (15-37); BUN Creatinine Ratio 21.8; Bilirubin Total 0.4 mg/dL (0.2-1.0); Calcium 9.5 mg/dL (8.5-10.1); Chloride 105 mmol/L (98-107); Chol HDL Ratio 2.5; Cholesterol 159 mg/dL (<=200); Estimated GFR (African America >60 (>=60 mL/min/1.73m^2); Estimated GFR (Non-African Ame >60 (>=60 mL/min/1.73m^2); Globulin 4.2 g/dL; Glucose 89 mg/dL (74-106); HDL Cholesterol 64 mg/dL (40-60); Sodium 141 mmol/L (136-145); Thyroid Stimulating Hormone 0.581 uIU/mL (0.358-3.740); Total Protein 7.4 g/dL (6.4-8.2); Triglycerides 62 mg/dL (<=150); VLDL CHOLESTEROL 12.4 mg/dL
[2024-10-12 13:12] LABS: Estimated Average Glucose 105 mg/dL; Glycohemoglobin A1C 5.3 % (4.5-6.2)
== END 2024-10-12 08:20 | disposition home or self-care (01) ==
PROVIDERS: PCP Family Medicine; Visit Provider Family Medicine
DX: R23.8 Other skin changes (principal); M62.830 Muscle spasm of back; I10 Essential (primary) hypertension; M19.90 Unspecified osteoarthritis, unspecified site; E11.42 Type 2 diabetes mellitus with diabetic polyneuropathy; E78.5 Hyperlipidemia, unspecified; Z12.12 Encounter for screening for malignant neoplasm of rectum; D64.9 Anemia, unspecified; E03.9 Hypothyroidism, unspecified; E55.9 Vitamin D deficiency, unspecified; R53.83 Other fatigue
CPT/HCPCS: 36415; 80053; 80061; 82306; 83036; 83540; 84436; 84443; 84481; 85025; 85610; 85730

== ENCOUNTER 2024-10-12 13:57 | Outpatient (OUT) | payer MEDICARE, SELFPAY ==
--- OUTSIDE RECORDS SUMMARY | 2024-10-12 14:00 | XMS_ITS | Clinical Summary ---
Author Organization [facility] Address [address] [place] [address] Phone Care Team Providers Care Mainframe Programmer Analyst Name Role Phone Leander Carrizales MD Primary Care Provider [phone] Social History Tobacco Use Types Packs/Day Years Used Date Smoking Tobacco: Never Assessed Comments Unknown Sex and Gender Information Value Date Recorded Sex Assigned at Not on file Legal Sex Female 3:27 PM EST Gender Identity Not on file Sexual Orientation Not on file Plan of Treatment Not on file Care Teams Mainframe Programmer Analyst Relationship Specialty Start Date End Date Leander Carrizales MD [address] [place] [address] PCP - General 09/22/18
--- OUTSIDE RECORDS SUMMARY | 2024-10-12 14:00 | XMS_ITS | Encounter Summary ---
Author Organization [facility] Address [address] [place] [address] Care Team Providers Care Health Plan Specialist Name Role Phone Leander Carrizales MD Primary Care Provider [phone] Source Comments In the event this information is protected by the Federal Confidentiality of Alcohol and Drug AbusePatient Records regulations: The Federal rules restrict any use of the information to criminally investigate or prosecute any alcohol or drug abuse patient.[facility] Encounter Details Date Type Department Care Team (Late st Contact Info) Description 08/06/2023 [place] [address] Provider, Ccf Questionnaire Submission Social History Tobacco Use Types Packs/Day Years Used Date Smoking Tobacco: Never Alcohol Use Standard Drinks/Week Comments Yes 6 (1 standard drink = 0.6 oz pur e alcohol) Area Deprivation Index Answer Date Doron rded National Score (1-100), lower number is lower ri sk 62 06/24/2023 State Score (1-10), lower number is lower risk 4 06/24/2023 Data from: https://www.neighborhoodatlas.medicine.[facility].edu/. Last address used for calculation [address] [facility] 06/24/2023 Comments No Sex and Gender Information [...] on filedocumented in this encounter Care Teams Health Plan Specialist Relationship Specialty Start Date End Date Leander Carrizales MD PCP - General Family Medicine 06/09/11 documented as of this encounter
--- OUTSIDE RECORDS SUMMARY | 2024-10-12 14:00 | XMS_ITS | Encounter Summary ---
Author Organization [facility] Address [id number] [address] [place] [address] Care Team Providers Care Edm Operator Name Role Phone Unavailable Primary Care Provider Unavailabl e Encounter Details Date Type Department Care Team (Late st Contact Info) Description 12/04/2022 Orders Only [facility] [address] [place] [address] External, Scanning Provider Social History Tobacco Use [...] Name Priority Date/Time Associated Diagnosis Comments VASC ARTERIAL DOPPLER LOWER BILATERAL MULTI LEVEL/PVR Routine 04/14/2022 8:23 AM EST documented in this encounter Results * Vas art doppler lwr bilat mult lev/PVR (04/14/2022 8:23 AM EST) Anatomical Region Laterality Modality Vascular Bilateral Ultrasound us Scanning Provider External CV VASCULAR ORDERABLE S Final Result documented in this encounter Visit Diagnoses Not on filedocumented in this encounter
--- OUTSIDE RECORDS SUMMARY | 2024-10-12 14:00 | XMS_ITS | Clinical Summary ---
Author Organization [facility] Address [address] [place] [address] Care Team Providers Care Med Specialist Name Role Phone Leander Carrizales MD Primary Care Provider [phone] Allergies Active Allergy Reactions Criticality Noted Date [...] B VACCINE Aged Out No longer damaso apple based on patient's age to complete this topic Insurance MEDICARE [employer] HMO PPO Care Teams Med Specialist Relationship Specialty Start Date End Date Leander Carrizales MD PCP - General Family Medicine 04/09/22
--- OUTSIDE RECORDS SUMMARY | 2024-10-12 14:00 | XMS_ITS | Encounter Summary ---
Author Organization [facility] Address [address] [place], [place] [id number] Care Team Providers Care Barrel Cap Setter Name Role Phone Leander Carrizales MD Primary Care Provider [phone] Source Comments In the event this information is protected by the Federal Confidentiality of Alcohol and Drug AbusePatient Records regulations: The Federal rules restrict any use of the information to criminally investigate or prosecute any alcohol or drug abuse patient.[facility] Reason for Referral * Diagnostic Procedure Only (Routine) - Closed Specialty Diagnoses / Procedures Referred By Contac t Referred To Contact XR IMAGING Diagnoses Fusion of spine of thoracolumbar region Procedures XR SCOLIOSIS PA STAND/LAT 2V RADEX ENTIR THRC LMBR CRV SAC SPI W/SKULL 2/3 VW Antonietta Cedeño APRN.RES COUNSELOR [address] [place] [address] Phone: tel: fax: XR IMAGING [facility]95 Referral ID Status Reason Start Date Expiration Date V isits Requested Visits Authorized [id number] Closed Auto-Generate d Referral 02/25/2023 03/26/2024 1 1 * Diagnostic Procedure Only (Routine) - Closed Specialty Diagnoses / Procedures Referred By Contac t Referred To Contact XR IMAGING Diagnoses Fusion of spine of thoracolumbar region Procedures XR LUMBAR MOTION 4V AP/LAT/ FLEX/EXT RADEX SPINE LUMBOSACRAL MINIMUM 4 VIEWS Antonietta Cedeño APRN.CNP [address] [place] [address] Phone: tel: fax: [place] [address] Referral ID Status Reason Start Date Expiration Date V isits Requested Visits Authorized [id number] Closed Auto-Generate d Referral 02/25/2023 03/26/2024 1 1 Encounter Details Date Type Department Care Team (Late st Contact Info) Description 02/20/2023 Abstract Neurology [address] [place] [id number] (Hist), Unk Pcp Social History Tobacco Use Types Packs/Day Years [...] of Assessment Author No 07/03/2014 8:11 AM Ivy Eugene LPN * Do you have serious [...] on file documented as of this encounter Results * XR LUMBAR MOTION 4V AP/LAT/ FLEX/EXT (06/24/2023 12:40 PM EST) Anatomical Region Laterality Modality L-spine Other 06/24/2023 12:4 0 PM EST Impressions 06/24/2023 12:58 PM EST IMPRESSION: Postoperative changes with no evidence of hardware complication. Fitter/Welder: ELAINE Transcribe Date/Time: Jun 24 2023 12:52P Dictated by : LATASHA QUEZADA MD This examination was interpreted and the report reviewed and electronically signed by: LATASHA QUEZADA MD on Jun 24 2023 12:55PM EST Narrative 06/24/2023 12:58 PM EST * * *Final Report* * * DATE [...] Number of different views (projections): 2 (accession [id number]), 4 (accession [id number]) COMPARISON: Radiographs dated 09/23/2021 RESULT: Counting reference: [...] and pubic symphysis. No other significant abnormality. Procedure Note Provider, [facility] [place] - 06/24/2023 * * *Final Report* * * DATE [...] Number of different views (projections): 2 (accession [id number]), 4 (accession [id number]) COMPARISON: Radiographs dated 09/23/2021 RESULT: Counting reference: [...] and pubic symphysis. No other significant abnormality. IMPRESSION IMPRESSION: Postoperative changes with no evidence of hardware complication. Fitter/Welder: ELAINE Transcribe Date/Time: Jun 24 2023 12:52P Dictated by : LATASHA QUEZADA MD This examination was interpreted and the report reviewed and electronically signed by: LATASHA QUEZADA MD on Jun 24 2023 12:55PM EST Antonietta Cedeño HABITAT BIOLOGIST.SARTHAK FREDERICK-PAMA Final Re sult * XR SCOLIOSIS PA STAND/LAT 2V (06/24/2023 12:39 PM EST) Anatomical Region Laterality Modality Spine Other 06/24/2023 12:3 9 PM EST Impressions 06/24/2023 12:58 PM EST IMPRESSION: Postoperative changes with no evidence of hardware complication. Fitter/Welder: PSCB Transcribe Date/Time: Jun 24 2023 12:52P Dictated by : LATASHA QUEZADA MD This examination was interpreted and the report reviewed and electronically signed by: LATASHA QUEZADA MD on Jun 24 2023 12:55PM EST Narrative 06/24/2023 12:58 PM EST * * *Final Report* * * DATE [...] Number of different views (projections): 2 (accession [id number]), 4 (accession [id number]) COMPARISON: Radiographs dated 09/23/2021 RESULT: Counting reference: [...] and pubic symphysis. No other significant abnormality. Procedure Note Provider, [facility] [place] - 06/24/2023 * * *Final Report* * * DATE [...] Number of different views (projections): 2 (accession [id number]), 4 (accession [id number]) COMPARISON: Radiographs dated 09/23/2021 RESULT: Counting reference: [...] and pubic symphysis. No other significant abnormality. IMPRESSION IMPRESSION: Postoperative changes with no evidence of hardware complication. 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
--- OUTSIDE RECORDS SUMMARY | 2024-10-12 14:00 | XMS_ITS | Encounter Summary ---
Author Organization [facility] Address [address] [place] [address] Care Team Providers Care Irrigating Pump Operator Name Role Phone Leander Carrizales MD Primary Care Provider [phone] Source Comments In the event this information is protected by the Federal Confidentiality of Alcohol and Drug AbusePatient Records regulations: The Federal rules restrict any use of the information to criminally investigate or prosecute any alcohol or drug abuse patient.[facility] Encounter Details Date Type Department Care Team (Late st Contact Info) Description 07/29/2023 [place] [address] Provider, Ccf Questionnaire Submission Social History Tobacco Use Types Packs/Day Years Used Date Smoking Tobacco: Never Alcohol Use Standard Drinks/Week Comments Yes 6 (1 standard drink = 0.6 oz pur e alcohol) Area Deprivation Index Answer Date Doron rded National Score (1-100), lower number is lower ri sk 62 06/24/2023 State Score (1-10), lower number is lower risk 4 06/24/2023 Data from: https://www.neighborhoodatlas.medicine.[facility].edu/. Last address used for calculation [address] [facility] 06/24/2023 Comments No Sex and Gender Information [...] on filedocumented in this encounter Care Teams Irrigating Pump Operator Relationship Specialty Start Date End Date Leander Carrizales MD PCP - General Family Medicine 06/09/11 documented as of this encounter
--- OUTSIDE RECORDS SUMMARY | 2024-10-12 14:01 | XMS_ITS ---
Author Organization [facility] Care Team Providers Care Kst Operator Name Role Phone Hortensia Eugene Unavailable Unavailable Lorenzo Ellis Unavailable Unavailable Leo Soria Unavailable Unavailable Aidan, Lorena Unavailable Unavailable McNall-Vanita, Lucinda L Unavailable Unavailable DeNicola, Harshil Unavailable Unavailable Munjapara, Valdominga Unavailable Unavailable Tressa Polk Unavailable Unavailabl e Allergies and adverse reactions Code CodeSystem Substance Reaction Severity StartDate Concern Status [id number] SNOMED CT Sulfa Antibiotics Unknown 06/18/2017 active Care Team Name Role Address Phone Organization Dates Praveen Lopez PCP [address], [place], [place], [facility], [place] (Office): : : [facility] 06/19/2017 - 06/20/2017 Hortensia Eugene [place] [address] [address] [place], [place], [facility], [facility] (Office): : [facility] 06/19/2017 - 06/20/2017 Lorenzo Perse [place] [address], [address], [place] (Office): : : [facility] 06/19/2017 - 06/20/2017 Leo Pandyarley [address] [place], [address], [place] (Office): [facility] 06/19/2017 - 06/20/2017 Lorena Aidan [facility] [address] [place], [place], [facility], [facility] (Office): : [facility] 06/19/2017 - 06/20/2017 Lucinda Khan [address] [place] [address], [place], [place], [facility], [facility] (Office): : [facility] 06/19/2017 - 06/20/2017 [facility]arshil [facility] [address] [facility] [address], [facility], [facility] (Office): : [facility] 06/19/2017 - 06/20/2017 Tressa Polk [id number] [place] [address], [place], [place], [facility], [place] (Office): : [facility] 06/19/2017 - 06/20/2017 Immunizations Immunization Status [...] completed tuberculin skin test; unspecified formulation lotNumber: [id number] expiry: 11/18/2018 Given 0.1 ml Left Forearm [...] 1 GASTRO-ESOPHAGEAL REFLUX DISEASE WITHOUT ESOPHAGITIS 06/20/[id number] active 2 UNSPECIFIED OSTEOARTHRITIS, UNSPECIFIED SITE 06/20/[address] active 3 ACQUIRED ABSENCE OF OTHER SPECIFIED PARTS OF DIGESTIVE TRACT 06/18/[address] active 4 CONSTIPATION, UNSPECIFIED 06/18/[address] active 5 DORSALGIA, UNSPECIFIED 06/18/[address] active 6 ENCOUNTER FOR OTHER ORTHOPEDIC AFTERCARE 06/18/[address] active 7 ESSENTIAL (PRIMARY) HYPERTENSION 06/18/[address] active 8 HYPERLIPIDEMIA, UNSPECIFIED 06/18/[address] active 9 HYPOTHYROIDISM, UNSPECIFIED 06/18/[address] active 10 MUSCLE WEAKNESS (GENERALIZED) 06/18/[address] active 11 OBESITY, UNSPECIFIED 06/18/[address] active 12 OVERACTIVE BLADDER 06/18/2017 914289619 SNOMED C T active 13 PRESENCE OF LEFT ARTIFICIAL HIP JOINT 06/18/[address] active 14 RADICULOPATHY, LUMBAR REGION 06/18/[address] active 15 SPONDYLOSIS WITHOUT MYELOPATHY OR RADICULOPATHY, LUMBAR REGION 06/18/[address] active Reason for Referral No Reasons for Referral Entered Social History Social History Observation Description Start Date End Date Code Code System Current Smoking Status Tobacco smoking consumption unknown 798847460 SNOMED CT Sex Assigned At Female 1950 54416-6 LOINC Gender Identity Vital Signs Code Code System Vitals Name Values and Units Timing Information 72439-8 LOINC Pain Level Value=0.0 06/20/2017 9279-1 [facility] Respiratory Rate Value=20.0 Units=/m in 06/20/2017 8462-4 [facility] Blood Pressure-Diastolic Value=78 Un its=mmHg 06/20/2017 8480-6 [facility] Blood Pressure-Systolic Nhbyd=143 Un its=mmHg 06/20/2017 8310-5 [facility] Body Temperature Value=98.1 Units= F 06/20/2017 8867-4 [facility] Heart rate Value=90.0 Units=/min 06/2017 83462-0 [facility] O2 % dC Oximetry Value=99.0 Units= % 06/20/2017 8302-2 [facility] Height Value=69.0 Units=Inches 06/19/2017 72550-9 [facility] Weight Bohyf=560.6 Units=Lbs 05/2017
--- OUTSIDE RECORDS SUMMARY | 2024-10-12 14:01 | XMS_ITS | Clinical Summary ---
Author Organization [facility] Address [address] [place] [address] Care Team Providers Care Hammer Driver Name Role Phone Leander Carrizales MD Primary Care Provider [phone] Allergies Active Allergy Reactions Criticality Noted Date [...] Guide test strip 3 Active HYDROcodone-jonnie taminophen ([place]) 5-325 MG tablet TAKE 1 TABLET BY [...] SYR 22GX1 22G X 1 3 ML [facility] USE TO INJECT VITAMIN B-12 [...] EDT Office Visit [facility] [address] [place] [address] KATELIN D [address] [address] Brianna Barrios DO [address] [place] [address] [address] Health Maintenance Due Date Last [...] IS VERY IMPORTANT TO YOUR HEALTH. THE [employer] GUIDELINES RECOMMEND THAT WOMEN 40 [...] Most Recently Relevant to Health Maintenance Insurance [id number] [employer] Care Teams Hammer Driver Relationship Specialty Start Date End Date Leander Carrizales MD PCP - General Family Medicine 06/11/23
--- OUTSIDE RECORDS SUMMARY | 2024-10-12 14:01 | XMS_ITS | Clinical Summary ---
Author Organization [facility] Address [id number] [address] [place] [address] Care Team Providers Care Unemployment Insurance Director Name Role Phone Unavailable Primary Care Provider [...] exists Medical Devices Not on file Insurance [facility] [place] [address]
--- OUTSIDE RECORDS SUMMARY | 2024-10-12 14:01 | XMS_ITS | Clinical Summary ---
Author Organization [facility] Address [address] [place], [place] [address] Care Team Providers Care Safety Engineer Name Role Phone Leander Carrizales MD Primary Care Provider [phone] Allergies Active Allergy Reactions Criticality Noted Date [...] is lower risk 4 06/24/2023 Data from: https://www.neighborhoodatlas.[facility].edu/. Last address used for calculation 60 [...] Hep B Core Ab, Total Negative NEGAT [facility] Hep C Antibody IA Negative NEGAT [facility] HBsAg Negative NEGAT [facility] Hep B Surface Ab, Qual Negative NEGAT [facility] Comment: A negative Hepatitis [...] Daniele Renae MD LABORATORY Final Resul t [facility] [address] [place] [address] * COMP METABOLIC PANEL (06/18/2011 1:49 PM EST) Protein, Total 7.4 6.0 - 8.4 g/dL [facility] Albumin 4.1 3.5 - 5.0 g/dL [facility] Calcium 9.4 8.5 - 10.5 mg/dL [facility] Bilirubin, Total 0.2 0.0 - 1.5 mg/dL [facility] Alkaline Phosphatase 75 40 - 150 U/L [facility] AST 23 7 - 40 U/L [facility] Glucose 90 65 - 100 mg/dL [facility] BUN 12 8 - 25 mg/dL [facility] Creatinine 0.80 0.70 - 1.40 mg/dL [facility] Sodium 140 132 - 148 mmol/L [facility] Potassium 3.9 3.5 - 5.0 mmol/L [facility] Chloride 106 98 - 110 mmol/L [facility] CO2 25 23 - 32 mmol/L [facility] Anion Gap 9 0 - 15 mmol/L [facility] ALT 16 0 - 45 U/L [facility] eGFR- >60 [facility] eGFR-All Other Races >60 . [facility] Comment: eGFR (Estimated GFR) Units of measure: mL/min/1.73 meters squared eGFR is derived from the reexpressed MDRD Study equation using the following parameters: serum creatinine, age, gender and race. The creatinine assay has been calibrated to be traceable to [employer] [employer]. An eGFR <60 mL/min/1.73m2 for >3 months is consistent with chronic kidney disease. Refer to KDOQI guidelines for clinical interpretation. Blood specimen (specimen) BLOOD SPECIMEN / Unknown 06/18/2011 1:49 PM EST 06/18/2011 2:03 PM EST us Rey Wu [facility] LABORATORY Final Result [facility] [address] [place] [address] from Last 3 Months or Most Recently Relevant to Health Maintenance Insurance [facility] MEDICARE Care Teams Safety Engineer Relationship Specialty Start Date End Date Leander Carrizales MD PCP - General Family Medicine 06/09/11
--- OUTSIDE RECORDS SUMMARY | 2024-10-12 14:01 | XMS_ITS | Encounter Summary ---
Author Organization [facility] Address [id number] [address] [place] [address] Care Team Providers Care Pantry Cook Name Role Phone Unavailable Primary Care Provider Unavailabl e Encounter Details Date Type Department Care Team (Late st Contact Info) Description 12/03/2022 Orders Only [facility] [address] [place] [address] External, Scanning Provider Social History Tobacco Use [...]
== END 2024-10-12 13:58 | disposition home or self-care (01) ==
LOC: WC 13:58
PROVIDERS: PCP Family Medicine; Visit Provider Physician Assistant
DX: R23.8 Other skin changes (principal); M62.830 Muscle spasm of back; I10 Essential (primary) hypertension; M19.90 Unspecified osteoarthritis, unspecified site; E11.42 Type 2 diabetes mellitus with diabetic polyneuropathy; E78.5 Hyperlipidemia, unspecified; Z12.12 Encounter for screening for malignant neoplasm of rectum; D64.9 Anemia, unspecified; E03.9 Hypothyroidism, unspecified; E55.9 Vitamin D deficiency, unspecified; R53.83 Other fatigue; L89.892 Pressure ulcer of other site, stage 2
CPT/HCPCS: 11056; 36415; 80053; 80061; 82306; 83036; 83540; 84436; 84443; 84481; 85025; 85610; 85730

== ENCOUNTER 2024-11-16 09:21 | Outpatient (OUT) | payer MEDICARE, SELFPAY | END 2024-11-16 09:22 | disposition home or self-care (01) | LOC: WC 09:21 | PROVIDERS: PCP Family Medicine; Visit Provider Physician Assistant | DX: L84 Corns and callosities (principal); I73.89 Other specified peripheral vascular diseases | CPT/HCPCS: 11056 ==

== ENCOUNTER 2024-12-07 08:57 | Outpatient (OUT) | payer MEDICARE, SELFPAY ==
--- OUTSIDE RECORDS SUMMARY | 2024-11-16 07:15 | XMS_ITS ---
Author Organization [facility] in [place] Address [address] [place] [address] Care Team Providers Care Communication Center Operator Name Role Phone Nixon Carrizales Primary Care Provider [phone] Allergies Allergen (clinical drug ingredient) Drug/Non Drug Allergy documented on EMR Reaction Allergy Type Onset Date Status Substance with sulfonamide structure and antibacterial mechanism of action (substance) Sulfa Antibiotics rash Drug Allergy Active Results Component Value Reference Range Notes UA DIP NONAUTO WO MICRO (810 02) - IN OFFICE (Not yet reviewed by provider) Interpretation: Performing Lab: Notes/Report: COLOR yellow CLARITY clear GLUCOSE n BILIRUBIN n KETONE n SPECIFIC GRAVITY 1.010 BLOOD +++ PH 6 PROTEIN 15 UROBILINOGEN n NITRITE n LEUKOCYTE ESTERASE 500++ REASON FOR VISIT uti- cant control her urine, urinary urgency, Lower back pain and spams in the legs when laying down at night Medications Medication SIG (Take, Route, Frequency, Duration) Notes Start Date End Date Status Pantoprazole Sodium 40 MG TAKE 1 TABLET EVERY DAY for 90 Active [place] & Syringes use for monthly b12 injections for 365 days 23G x 1 3ml syringe 08/16/2024 Active Meloxicam 15 MG TAKE 1 TABLET EVERY DAY for 90 Active Vitamin D3 50 MCG (2000 UT) 1 capsule Or ally Once a day for 30 day(s) Active Rollator 1 rollator to safely complete ADLs DX M51.36 for 365 days 10/11/2024 Active Levothyroxine Sodium 125 MCG TAKE 1 TABL ET EVERY DAY for 90 Active Gabapentin 600 MG TAKE 2 TABLETS Orall y bid for 30 days Active Cyanocobalamin 1000 MCG/ML INJECT 1ML IN TO THE MUSCLE EVERY MONTH for 90 Active Losartan Potassium 100 MG 1 tablet Orall y Once a day for 30 days Active Pyridium 200 MG 1 tablet after meals Orally Three times a day for 2 days 11/16/2024 Active ALPRAZolam 0.25 MG 1 tablet Orally Twice a day for 30 days F41,9 10/11/2024 Active Cefdinir 300 MG 2 capsule Orally onc e a day for 10 days 11/16/2024 Active Alendronate Sodium 70 MG TAKE 1 TABLET E VERY WEEK for 84 Active Accu-Chek FastClix Lancets - TEST BLOOD SUGAR EVERY DAY for 90 Active Social History Tobacco Use: Social History Observation Description Date Details (start date - stop date) Never Smoker NA - NA Tobacco Use/Smoking Question Answer Notes Patient is a nonsmoker Vital Signs Weight 193.2 lbs 11/16/2024 Height 68 in 11/16/2024 Blood pressure systolic 126 mm Hg 11/17/19 25 Blood pressure diastolic 70 mm Hg 025 BMI 29.37 kg/m2 11/16/2024 Encounters Encounter Location Date Provider Diagnosis [facility] [address] [place] [address] 11/16/2024 Nixon Carrizales UTI (urinary tract infection) N39.0 and Muscle spasm of back M62.830 Assessments Encounter Date Diagnosis (ICD Code) Assessment Notes Treatment Notes Treatment Clinical Notes Section Notes 11/16/2024 UTI (urinary tract infection) (ICD-10 - N39.0) 11/16/2024 Muscle spasm of back (ICD-10 - M62.830) Plan Of Treatment Medication Medication Name Sig Start Date Stop Date Notes Pyridium 200 MG 1 tablet after meals Orally Three times a day for 2 days 11/16/2024 Cefdinir 300 MG 2 capsule Orally once a day for 10 days Pending Test Test Name Order Date UA DIP NONAUTO WO MICRO (25037) - IN OFF ICE 11/16/2024 Next Appt Details Provider Name:Nixon Carrizales, 09:45:00 AM, [address] [place], [address], Medications Administered Medication Instructions Date of Administration Dosage Notes Triamcinolone 40 mg/ml 11/16/2024 120 mg Ketorolac Tromethamine 11/16/2024 60 mg Orphenadrine Citrate 11/16/2024 60 mg Progress Notes * Leelee CEDILLO MDOB: 2 (73 yo F)Acc No.[id number]:11/16/2024 Progress Note Patient: Leelee LAM Provider: Clary Carrizales ([facility])MD :1950 A ge:73 Y S ex:Female Date:11/16/2024 Address:[address] [place], [place] [id number] Check In:11:05 AM ESTCheck O ut:11:48 AM EST Subjective: * Chief Complaints: * U ti- cant control her urine, urinary urgencyLower back pain and spams in the legs when laying down at night * HPI: G eneral: back pain feels ldiff thatn prev back pa - likely pyelonphritis. * ROS: E ENT: hearing changes d [...] production d enies. W heezing d enies. M usculoskeletal: Joint pain d enies. J oint Fluid d enies. B ack pain d enies. K nee pain d enies. N bobo pain d enies. J oint Stiffness d enies. M uscle cramps d enies. W eakness of muscles d enies. A rthritis d enies. M uscle aches d enies. P ain in shoulder(s) d enies. S wollen joints d enies. 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 Modified On:08/22/2022U Status:confirmed M51.9 Lumbar disc disease Modified On:11/12/2022 Status:confirmed J02.9 Pharyngitis Modified On:08/22/2022U Status:confirmed J20.9 Acute bronchitis Modified On:08/22/2022U Status:confirmed M54.30 Sciatica Modified On:08/22/2022 Status:confirmed L03.90 Cellulitis Modified On:08/22/2022 Status:confirmed L65.9 Hair loss Modified On:08/22/2022 Status:confirmed J30.2 Seasonal allergic rh initis Modified On:08/22/2022 Status:confirmed M79.642 Left hand pain Modified On:08/22/2022 Status:confirmed M54.17 Lumbosacral neuritis Modified On:08/22/2022 Status:confirmed M19.90 Osteoarthritis, unsp ecified osteoarthritis type, unspecified site Modified On:08/22/2022 Status:confirmed M79.662 Pain in left lower l eg Modified On:07/20/2023 Status:confirmed E66.3 Over weight Modified On:08/22/2022 Status:confirmed L30.1 Dyshidrotic eczema Modified On:08/22/2022 Status:confirmed M45.9 Ankylosing spondylit is Modified On:08/22/2022 Status:confirmed D22.9 Nevus Modified On:08/22/2022 Status:confirmed R60.0 Ankle edema Modified On:08/22/2022 Status:confirmed K52.9 Acute gastroenteriti s Modified On:08/22/2022 Status:confirmed I73.89 Other peripheral vas cular disease Modified On:08/22/2022 Status:confirmed M47.896 Other osteoarthritis of spine, lumbar region Modified On:08/22/2022 Status:confirmed I87.2 Chronic venous insuf ficiency Modified On:08/22/2022 Status:confirmed R60.9 Edema Modified On:08/22/2022 Status:confirmed I86.8 Varicose vein Modified On:08/22/2022 Status:confirmed R06.00 Dyspnea Modified On:08/22/2022 Status:confirmed M75.40 Shoulder impingement syndrome Modified On:07/20/2023 Status:confirmed Z91.81 At risk for falls Modified On:08/22/2022 Status:confirmed E53.8 Deficiency of vitami n B12 Modified On:07/20/2023 Status:confirmed G47.00 Insomnia Modified On:08/22/2022 Status:confirmed 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 Modified On:08/22/2022U Status:confirmed 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, bilateral Modified On:08/22/2022 Status:confirmed F41.8 Anxiety and depressi on Modified On:08/22/2022 Status:confirmed 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 Modified On:08/22/2022 Status:confirmed T14.8XXA Bruising Modified On:08/22/2022 Status:confirmed M48.061 Lumbar spinal stenos is Modified On:01/07/2023 Status:confirmed M17.11 Osteoarthritis of ri ght knee Modified On:08/22/2022 Status:confirmed I82.451 Acute embolism and t hrombosis of right peroneal vein Modified On:08/22/2022 Status:confirmed A04.72 Clostridioides diffi cile diarrhea Modified On:08/22/2022 Status:confirmed U07.1 COVID-19 Modified On:08/22/2022 Status:confirmed N81.6 Rectocele without ut erine prolapse Modified On:08/22/2022 Status:confirmed R05.8 Other cough Modified On:08/22/2022 Status:confirmed I80.00 Thrombophlebitis of superficial vein of lower leg Modified On:08/22/2022U Status:confirmed L89.519 Pressure ulcer of ri ght ankle, unspecified stage Modified On:08/02/2022 Status:confirmed I67.82 Cerebral ischemia Modified On:08/07/2022U Status:confirmed L97.312 Non-healing ulcer of ankle, right, with fat layer exposed Modified On:10/30/2022U Status:confirmed 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, unspecified whether salvage determiner insulin use Modified On:08/09/2022U Status:confirmed E11.621 Type 2 diabetes lisandro itus with foot ulcer Modified On:10/30/2022U Status:confirmed 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 Modified On:08/11/2022U Status:confirmed K21.9 Acid reflux Modified On:08/11/2022U Status:confirmed I10 Benign essential HTN Modified On:08/11/2022U Status:confirmed I87.2 Acute stasis dermati tis Modified On:08/11/2022U Status:confirmed E03.9 Hypothyroidism Modified On:08/11/2022U Status:confirmed L97.312 Chronic ulcer of rig ht ankle with fat layer exposed Modified On:08/29/2022U Status:confirmed R55 Syncope and collapse Modified On:08/25/2022U Status:confirmed I99.8 Other disorder of ci rculatory system Modified On:08/26/2022U Status:confirmed T81.89XA Delayed surgical wou nd healing Modified On:08/29/2022U Status:confirmed L89.512 Decubitus ulcer of r ight ankle, stage 2 Modified On:09/18/2022U Status:confirmed L89.511 Pressure injury of r ight ankle, stage 1 Modified On:09/18/2022U Status:confirmed E11.42 Diabetes mellitus wi th diabetic polyneuropathy Modified On:10/30/2022U Status:confirmed J01.90 Acute sinus infectio n Modified On:02/20/2023U Status:confirmed L89.892 Decubitus ulcer of c custodial, stage 2, unspecified laterality Modified On:03/03/2023U Status:confirmed M51.26 Other intervertebral disc displacement, lumbar region Modified On:04/16/2023U Status:confirmed L97.512 Chronic ulcer of rig ht foot with fat layer exposed Modified On:07/13/2023U Status:confirmed L89.512 Pressure injury of r ight ankle, stage 2 Modified On:07/13/2023U Status:confirmed L97.512 Chronic ulcer of toe of right foot with fat layer exposed Modified On:02/21/2024W/U Status:confirmed M47.817 Arthritis of lumbosa cral spine Modified On:08/11/2023U Status:confirmed E53.8 B12 deficiency Modified On:01/19/2024/U Status:confirmed R32 Urinary incontinence Modified On:02/10/2024U Status:confirmed L89.892 Pressure ulcer of to e of left foot, stage 2 Modified On:07/29/2024/U Status:confirmed L89.892 Decubitus ulcer of l eft foot, stage 2 Modified On:07/29/2024/U Status:confirmed J32.9 Sinusitis Modified On:09/06/2024U Status:confirmed L89.892 Decubitus ulcer of r ight foot, stage 2 Modified On:09/09/2024/U Status:confirmed R23.8 Easy bruising Modified On:10/11/2024U Status:confirmed I73.89 Other peripheral vas cular diseases Modified On:10/31/2024U Status:confirmed * Medical History: * Surgical History: s pine surgery 12/2018cataract surgery kin Substitute with excisional biopsy- right ankle/foot 08/10Carpal Tunnel Release 07/03/10D&C 02/09/14Excision of Ganglion Cyst 2011Kn Arthroscopy, Rt 2011Cholecystectomy 2008Rotator Cuff Repair, rt 2010Meniscus Repair, Rt 2011Revision Fusion T11-L4 Total Knee Rt 05/10Laser Ablation small Saphenous vein, rt 05/21/22Venous Ablation 06/03/22Ablation Left Varicose Veins 06/19/22Lumbar Epidural Steroid injection, Dr. Brown * Hospitalization/Major Diagno stic Procedure: S eizure activity- 08/10Multiple times for surgeries Hip dislocation 03/11 * Family History: F ather: , lung. [...] is a n onsmoker * Medications: T akingAccu-Chek FastClix Lancets(Lancets) - Miscellaneous TEST BLOOD SUGAR EVERY DAY Alendronate Sodium 70 MG Tablet TAKE 1 TABLET EVERY WEEK ALPRAZolam 0.25 MG Tablet 1 tablet Orally Twice a day F41,9Cyanocobalamin 1000 MCG/ML Solution INJECT 1ML INTO THE MUSCLE EVERY MONTH Gabapentin 600 MG Tablet TAKE 2 TABLETS Orally bid Levothyroxine Sodium 125 MCG Tablet TAKE 1 TABLET EVERY DAY Losartan Potassium 100 MG Tablet 1 tablet Orally Once a day Meloxicam 15 MG Tablet TAKE 1 TABLET EVERY DAY [employer] [employer] Syringes use for monthly b12 injections 23G x 1 3ml syringePantoprazole Sodium 40 MG Tablet Delayed Release TAKE 1 TABLET EVERY DAY Rollator 1 rollator to safely complete ADLs DX M51.36 Vitamin D3 50 MCG (2000 UT) Capsule 1 capsule Orally Once a day Medication List reviewed and reconciled with the patientTaking Accu- Chek FastClix Lancets(Lancets) - Miscellaneous TEST BLOOD SUGAR EVERY DAY Taking Alendronate Sodium 70 MG Tablet TAKE 1 TABLET EVERY WEEK Taking ALPRAZolam 0.25 MG Tablet 1 tablet Orally Twice a day F41,9Taking Cyanocobalamin 1000 MCG/ML Solution INJECT 1ML INTO THE MUSCLE EVERY MONTH Taking Gabapentin 600 MG Tablet TAKE 2 TABLETS Orally bid Taking Levothyroxine Sodium 125 MCG Tablet TAKE 1 TABLET EVERY DAY Taking Losartan Potassium 100 MG Tablet 1 tablet Orally Once a day Taking Meloxicam 15 MG Tablet TAKE 1 TABLET EVERY DAY Taking [place] & Syringes use for monthly b12 injections 23G x 1 3ml syringeTaking Pantoprazole Sodium 40 MG Tablet Delayed Release TAKE 1 TABLET EVERY DAY Taking Rollator 1 rollator to safely complete ADLs DX M51.36 Taking Vitamin D3 50 MCG (2000 UT) Capsule 1 capsule Orally Once a day Medication List reviewed and reconciled with the patient * Allergies: S ulfa Antibiotics: rashno[Allergies Verified] Objective: * Vitals: W t:193.2lbs, Ht: 68 in, BP:126/70mm Hg, BMI:29.37Index, Wt-k.63 kg. * Examination: P hysical Exam: GENERAL: [...] mood and affect. Assessment: * Assessment: 1. U TI (urinary tract infection) - N39.0 (Primary) 2 . M uscle spasm of back - M62.830 Plan: * Treatment: * Therapeutic Injections: Triamcinolone 40 mg/ml : 120 mg (Route: Intramuscular) given by Liat Ambrose SA on right gluteus (Muscle spasm of back) Ketorolac Tromethamine : 60 mg (Route: Intramuscular) given by Liat Ambrose , on left gluteus (Muscle spasm of back) Orphenadrine Citrate : 60 mg (Route: Intramuscular) given by Liat Ambrose , on left gluteus (Muscle spasm of back) * Labs: * L ab: UA DIP NONAUTO WO MICRO (59288) - IN OFFICE (Collection Date & Time - 11/16/2024) Value Reference Range C OLOR yellow * C LARITY clear * G LUCOSE n * B ILIRUBIN n * K ETONE n * S PECIFIC GRAVITY 1.010 * B LOOD +++ * P H 6 * P ROTEIN 15 * U ROBILINOGEN n * N ITRITE n * L EUKOCYTE ESTERASE 500++ * Procedure Codes: 9 6372 THERAP.INJ. OF MED. INTRAMUSCULAR OR [id number] TMC ACET,PER 10MG., Units: 12.00 J1885 TORADOL, PER 15 MG, Units: 4.00 , Modifiers: JZ J2360 NORFLEX,UP TO 60MG.15795 URINALYSIS WO MICRO * Preventive Medicine: Screenings/Counseling: B IL ACTION PLAN Above Normal BMI Follow-up D ietary management education, guidance, and counseling * * Sign off status: Completed Visit Status: C HK (Check Out) true * Provider: Clary Carrizales ([facility])MD Date: 0 11/16/2024 Generated for Printi ng/Faxing/eTransmitting on: 0 12/07/2024 09:01 AM EDT History and Physical Notes * HPI (History of Present Illness) Category Sub-Category Detail Notes Category Not es General back pain feels ldiff thatn prev back pa - likely pyelonphritis Examination Category Sub-Category Detail Notes Category Not [...]
--- OUTSIDE RECORDS SUMMARY | 2024-11-21 10:07 | XMS_ITS ---
Author Organization [facility] in [place] Address [address] [place] [address] Care Team Providers Care Video Games Storywriter Name Role Phone Nixon Carrizales Primary Care Provider REASON FOR VISIT muscle relaxer Medications Medication SIG (Take, Route, Fr equency, Duration) Notes Start Date End Date Status Baclofen 20 MG 1 tab Orally qhs 11/21/2024 Active Encounters Encounter Location Date Provider Diagnosis [facility] [place] [address] [place] [address] 11/21/2024 Nixon Carrizales Plan Of Treatment Medication Medication Name Sig Start Date Stop Date Notes Baclofen 20 MG 1 tab Orally qhs 11/21/2024 Next Appt Details Provider Name:Nixon Carrizales, 09:45:00 AM, [address] [place], [address], Progress Notes * Leelee CEDILLO MDOB: 2 (73 yo F)Acc No.[id number]:11/21/2024 Patient: Mariusz LAMdavid Hampton :1950 A ge:73 Y S ex:Female Address:[address] [place] [address], [address] * Refills Start Baclofen Tablet, 20 MG, Orally, 30, 1 tab, qhs, Refills=3 * true * Date: Generated for Printi ng/Faxing/eTransmitting on: 0 12/07/2024 09:00 AM EDT
--- OUTSIDE RECORDS SUMMARY | 2024-11-28 07:00 | XMS_ITS ---
Author Organization [facility] in [place] Address [address] [place] [address] Care Team Providers Care Graduate Rn Name Role Phone Nixon Carrizales Primary Care [...] 1 TABLET EVERY DAY for 90 Active [employer] Syringes use for monthly b12 injections [...] Problem Status W/U Status Risk Notes Problem 749740786 Frequency of micturition (R35.0) Active confirmed Problem 61663282 Acute bronchitis (466.0) Active confirmed Problem Recurrent urinary tract infection (768517529) Recurrent UTI (N39.0) Active confirmed Vital Signs Weight 190.8 lbs 11/28/2024 Height 68 in 11/28/2024 Blood pressure systolic 148 mm Hg 11/29/19 25 Blood pressure diastolic 76 mm Hg 025 BMI 29.01 kg/m2 11/28/2024 Encounters Encounter Location Date Provider Diagnosis [facility] Medicine [address] [place] [address] 11/28/2024 Nixon [place] Frequency of micturition R35.0 ; Acute bronchitis [...] Order Date UA DIP NONAUTO WO MICRO (16039) - IN OFF ICE 11/28/2024 Next Appt Details Provider Name:Nixon Carrizales, 09:45:00 AM, [address] [place], [address], Progress Notes * Leelee CEDILLO MDOB: (73 yo F)Acc No.[id number]:11/28/2024 Progress Note Patient: Sandi JAUREGUI Leelee Berta Provider: Clary Carrizales ([facility])MD :1950 A ge:73 Y S ex:Female Date:11/28/2024 Address:[address] [place], [place] [address] Check In:10:47 AM ESTCheck O ut:11:30 AM [...] exposure to other viral communicable diseases Modified On:08/22/2022 Status:confirmed I10 Hypertension Modified On:07/20/2023 Status:confirmed M19.90 DJD (degenerative diana int disease) Modified On:07/20/2023 Status:confirmed 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 Modified On:08/22/2022 Status:confirmed M51.9 Lumbar disc disease Modified On:11/12/2022 Status:confirmed J02.9 Pharyngitis Modified On:08/22/2022 Status:confirmed J20.9 [...] Modified On:08/22/2022 Status:confirmed R60.0 Ankle edema Modified On:08/22/2022U Status:confirmed K52.9 Acute gastroenteriti s Modified On:08/22/2022 Status:confirmed I73.89 Other peripheral vas cular disease Modified On:08/22/2022U Status:confirmed M47.896 Other osteoarthritis of spine, lumbar [...] Modified On:08/22/2022 Status:confirmed L89.519 Pressure ulcer of ri ght ankle, unspecified stage Modified On:08/02/2022U Status:confirmed I67.82 Cerebral ischemia Modified On:08/07/2022U Status:confirmed L97.312 Non-healing ulcer of ankle, right, with fat layer exposed Modified On:10/30/2022U Status:confirmed 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, unspecified whether long-term insulin use Modified On:08/09/2022U Status:confirmed E11.621 Type 2 diabetes lisandro itus with foot ulcer Modified On:10/30/2022U Status:confirmed 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 Modified On:08/11/2022 Status:confirmed K21.9 Acid reflux Modified On:08/11/2022 Status:confirmed I10 Benign essential HTN Modified On:08/11/2022 Status:confirmed I87.2 Acute stasis dermati tis Modified On:08/11/2022 Status:confirmed E03.9 Hypothyroidism Modified On:08/11/2022U Status:confirmed L97.312 Chronic ulcer of rig ht ankle with fat layer exposed Modified On:08/29/2022U Status:confirmed R55 Syncope and collapse Modified On:08/25/2022 Status:confirmed I99.8 Other disorder of ci rculatory [...] On:02/20/2023U Status:confirmed L89.892 Decubitus ulcer of c zion, stage 2, unspecified laterality Modified On:03/03/2023U Status:confirmed M51.26 Other intervertebral disc displacement, lumbar region Modified On:12/28/2023W/U Status:confirmed L97.512 Chronic ulcer of rig ht [...] Tunnel Release 07/03/10D&C 02/09/14Excision of Ganglion Cyst 2012Knee Arthroscopy, Rt 2012Cholecystectomy 2008Rotator Cuff Repair, rt 2010Meniscus Repair, Rt 2011Revision Fusion T11-L4 Total Knee Rt 05/10Laser Ablation small Saphenous vein, rt 05/21/22Venous Ablation 06/03/22Ablation Left Varicose Veins 06/19/22Lumbar Epidural Steroid injection, Dr. Brown * Hospitalization/Major Diagno stic Procedure: Ebony jenkins activity- 08/10Multiple times for surgeries Hip dislocation [...] MG Tablet TAKE 1 TABLET EVERY DAY Rand & Syringes use for monthly b12 injections 23G x 1 3ml syringePantoprazole Sodium 40 MG Tablet Delayed Release TAKE 1 TABLET EVERY DAY Rollator 1 rollator to safely complete ADLs DX M51.36 Vitamin D3 50 MCG (1999 UT) Capsule 1 capsule Orally Once a [...] Tablet TAKE 1 TABLET EVERY DAY Taking Rand & Syringes use for monthly b12 injections 23G x 1 3ml syringeTaking Pantoprazole Sodium 40 MG Tablet Delayed Release TAKE 1 TABLET EVERY DAY Taking Rollator 1 rollator to safely complete ADLs DX M51.36 Taking Vitamin D3 50 MCG (1999 UT) Capsule 1 capsule Orally Once a [...] L ab: UA DIP NONAUTO WO MICRO (01328) - IN OFFICE (Collection Date & Time [...] WO MICRO * Preventive Medicine: Screenings/Counseling: B PR ACTION PLAN Above Normal BMI Follow-up D ietary management education, guidance, and counseling See treatment section of progress note for complete details of management plan. F ALL RISK SCREENING Fall Risk Assessment: N o falls in the past year * * Sign off status: Completed Visit Status: C HK (Check Out) true * Provider: Clary Carrizales ([facility])MD Date: 11/28/2024 Generated for Uday zuluaga/Kristian/Deni on: 12/07/2024 09:00 AM EDT
--- OUTSIDE RECORDS SUMMARY | 2024-12-07 08:59 | XMS_ITS | Encounter Summary ---
Author Organization [facility] Address [address] [place] [address] Care Team Providers Care Photo Print Specialist Name Role Phone Leander Carrizales MD Primary Care Provider [phone] Source Comments In the event this information is protected by the Federal Confidentiality of Alcohol and Drug AbusePatient Records regulations: The Federal rules restrict any use of the information to criminally investigate or prosecute any alcohol or drug abuse patient.[facility] Encounter Details Date Type Department Care Team (Late st Contact Info) Description 08/06/2023 [place] [address] Provider, Ccf Questionnaire Submission Social History Tobacco Use Types Packs/Day Years Used Date Smoking Tobacco: Never Alcohol Use Standard Drinks/Week Comments Yes 6 (1 standard drink = 0.6 oz pur e alcohol) Area Deprivation Index Answer Date Doron rded National Score (1-100), lower number is lower ri sk 62 06/24/2023 State Score (1-10), lower number is lower risk 4 06/24/2023 Data from: https://www.neighborhoodatlas.medicine.[facility].edu/. 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 Answer Date of Assessment Author No 07/03/2014 8:11 AM Ivy Eugene LPN * Are you blind or [...] on filedocumented in this encounter Care Teams Photo Print Specialist Relationship Specialty Start Date End Date Leander Carrizales MD PCP - General Family Medicine 06/09/11 documented as of this encounter
--- OUTSIDE RECORDS SUMMARY | 2024-12-07 08:59 | XMS_ITS | Clinical Summary ---
[facility] Organization [facility] Address [address] [place] [address] Care Team Providers Care Associate Marketing Manager Name Role Phone Leander Carrizales MD Primary Care Provider [phone] Allergies Active Allergy Reactions Criticality Noted Date [...] 03/25/2021, 07/12/2020, Additional history exists INFLUENZA VACCINE (#1) 2024 , 02/08/2020, 02/23/2018, Additional history exists RSV VACCINE (1 - 1-dose 75+ series) 12/20/2026 PNEUMOCOCCAL VACCINE SERIES Completed 02/24/2017, 1 HEP B VACCINE Aged Out No longer damaso apple based on patient's age to complete this topic Insurance Medicare [employer] HMO PPO Care Teams Associate Marketing Manager Relationship Specialty Start Date End Date Leander Carrizales MD PCP - General Family Medicine 04/09/22
--- OUTSIDE RECORDS SUMMARY | 2024-12-07 08:59 | XMS_ITS | Clinical Summary ---
Author Organization [facility] Address [address] [place] [address] Phone Care Team Providers Care Perioperative Manager Name Role Phone Leander Carrizales MD Primary Care Provider [phone] Social History Tobacco Use Types Packs/Day Years Used Date Smoking Tobacco: Never Assessed Comments Unknown Sex and Gender Information Value Date Recorded Sex Assigned at Not on file Legal Sex Female 3:27 PM EST Gender Identity Not on file Sexual Orientation Not on file Plan of Treatment Not on file Care Teams Perioperative Manager Relationship Specialty Start Date End Date Leander Carrizales MD [address] [place] [address] PCP - General 09/22/18
--- OUTSIDE RECORDS SUMMARY | 2024-12-07 08:59 | XMS_ITS | Encounter Summary ---
Author Organization [facility] Address [address] [place] [address] Care Team Providers Care Public Relations Supervisor Name Role Phone Leander Carrizales MD Primary Care Provider [phone] Source Comments In the event this information is protected by the Federal Confidentiality of Alcohol and Drug AbusePatient Records regulations: The Federal rules restrict any use of the information to criminally investigate or prosecute any alcohol or drug abuse patient.[facility] Encounter Details Date Type Department Care Team (Late st Contact Info) Description 07/29/2023 [place] [address] Provider, Ccf Questionnaire Submission Social History Tobacco Use Types Packs/Day Years Used Date Smoking Tobacco: Never Alcohol Use Standard Drinks/Week Comments Yes 6 (1 standard drink = 0.6 oz pur e alcohol) Area Deprivation Index Answer Date Doron rded National Score (1-100), lower number is lower ri sk 62 06/24/2023 State Score (1-10), lower number is lower risk 4 06/24/2023 Data from: https://www.neighborhoodatlas.medicine.[facility].edu/. Last address used for calculation [address] [facility] 06/24/2023 Comments No Sex and Gender Information [...] on filedocumented in this encounter Care Teams Public Relations Supervisor Relationship Specialty Start Date End Date Leander Carrizales MD PCP - General Family Medicine 06/09/11 documented as of this encounter
--- OUTSIDE RECORDS SUMMARY | 2024-12-07 08:59 | XMS_ITS | Encounter Summary ---
Author Organization [facility] Address [address] [place], [place] [id number] Care Team Providers Care Rangeland Management Specialist Name Role Phone Leander Carrizales MD Primary Care Provider [phone] Source Comments In the event this information is protected by the Federal Confidentiality of Alcohol and Drug AbusePatient Records regulations: The Federal rules restrict any use of the information to criminally investigate or prosecute any alcohol or drug abuse patient.[facility] Reason for Referral * Diagnostic Procedure Only (Routine) - Closed Specialty Diagnoses / Procedures Referred By Contac t Referred To Contact XR IMAGING Diagnoses Fusion of spine of thoracolumbar region Procedures XR SCOLIOSIS PA STAND/LAT 2V RADEX ENTIR THRC LMBR CRV SAC SPI W/SKULL 2/3 VW Antonietta Cedeño APRN.ENVIRONMENTAL SOLUTIONS ENGINEER [address] [place] [address] Phone: tel: fax: XR IMAGING [facility] Referral ID Status Reason Start Date Expiration Date V isits Requested Visits Authorized [id number] Closed Auto-Generate d Referral 02/25/2023 03/26/2024 1 1 * Diagnostic Procedure Only (Routine) - Closed Specialty Diagnoses / Procedures Referred By Contac t Referred To Contact XR IMAGING Diagnoses Fusion of spine of thoracolumbar region Procedures XR LUMBAR MOTION 4V AP/LAT/ FLEX/EXT RADEX SPINE LUMBOSACRAL MINIMUM 4 VIEWS Antonietta Cedeño APRN.CNP [address] [place] [address] Phone: tel: fax: [place] [phone] Referral ID Status Reason Start Date Expiration Date V isits Requested Visits Authorized [id number] Closed Auto-Generate d Referral 02/25/2023 03/26/2024 1 1 Encounter Details Date Type Department Care Team (Late st Contact Info) Description 02/20/2023 Abstract Neurology [address] [place] [id number] (Hist), Unk Pcp Social History Tobacco Use [...] changes with no evidence of hardware complication. Library Circulation Clerk: ELAINE Transcribe Date/Time: Jun 24 2023 12:52P [...] Number of different views (projections): 2 (accession [id number]), 4 (accession [id number]) COMPARISON: Radiographs dated 09/23/2021 RESULT: Counting reference: [...] No other significant abnormality. Procedure Note Provider, [facility] [place] - 06/24/2023 * * *Final Report* * [...] Number of different views (projections): 2 (accession [id number]), 4 (accession [id number]) COMPARISON: Radiographs dated 09/23/2021 RESULT: Counting reference: [...] changes with no evidence of hardware complication. Library Circulation Clerk: ELAINE Transcribe Date/Time: Jun 24 2023 12:52P Dictated by : LATASHA QUEZADA MD This examination was interpreted and the report reviewed and electronically signed by: LATASHA QUEZADA MD on Jun 24 2023 12:55PM EST Antonietta Beck Davidson WONG.SARTHAK FREDERICK-PAMAlexys Final Re sult * XR SCOLIOSIS PA STAND/LAT 2V (06/24/2023 12:39 PM EST) Anatomical Region Laterality Modality Spine Other 06/24/2023 12:3 9 PM EST Impressions 06/24/2023 12:58 PM EST IMPRESSION: Postoperative changes with no evidence of hardware complication. Library Circulation Clerk: PSCB Transcribe Date/Time: Jun 24 2023 12:52P [...] Number of different views (projections): 2 (accession [id number]), 4 (accession [id number]) COMPARISON: Radiographs dated 09/23/2021 RESULT: Counting reference: [...] No other significant abnormality. Procedure Note Provider, [facility] [place] - 06/24/2023 * * *Final Report* * [...] Number of different views (projections): 2 (accession [id number]), 4 (accession [id number]) COMPARISON: Radiographs dated 09/23/2021 RESULT: Counting reference: [...] changes with no evidence of hardware complication. 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
--- OUTSIDE RECORDS SUMMARY | 2024-12-07 09:00 | XMS_ITS | Clinical Summary ---
Author Organization [facility] Address [facility]-[id number] [address] [place] [address] Care Team Providers Care Electrolysis Operator Name Role Phone Unavailable Primary Care [...] exists Medical Devices Not on file Insurance [facility] MEDICARE
--- OUTSIDE RECORDS SUMMARY | 2024-12-07 09:00 | XMS_ITS | Encounter Summary ---
Author Organization [facility] [employer] [facility] [employer] Address [id number] [address] [place] [address] Care Team Providers Care Manager Restaurant Name Role Phone Unavailable Primary Care Provider Unavailabl e Encounter Details Date Type Department Care Team (Late st Contact Info) Description 12/04/2022 Orders Only [facility] [address] [place] [address] External, Scanning Provider Social History Tobacco Use [...]
--- OUTSIDE RECORDS SUMMARY | 2024-12-07 09:01 | XMS_ITS | Encounter Summary ---
Author Organization [facility] [employer] Address [id number] [address] [place] [address] Care Team Providers Care Methods And Procedures Analyst Name Role Phone Unavailable Primary Care Provider Unavailabl e Encounter Details Date Type Department Care Team (Late st Contact Info) Description 12/03/2022 Orders Only [facility] [address] [place] [address] External, Scanning Provider Social History Tobacco Use [...]
--- OUTSIDE RECORDS SUMMARY | 2024-12-07 09:01 | XMS_ITS | Patient Health Record ---
Author Organization [employer] Address [address] [place] [address] Care Team Providers Care Barrel Stave Inspector Name Role Phone Dr. Uziel Kenny Primary Care Provider [phone] Reason For Referral No Information Plan Of Treatment No Information Insurance Providers Payer Name Payer Address Payer Phone Subscriber Number Group Number Insured Name Patient Relationship to Insured Coverage Start Date Coverage End Date [employer] MED[employer]ARE PLAN [address] [address] [place] [address] [id number] KENAN CHASE Self - patient is the insured 2 DENTAL [employer] MEDICARE [address] [address] [place] [address] [phone] [id number] KENAN CHASE Self - patient is the insured 2
--- OUTSIDE RECORDS SUMMARY | 2024-12-07 09:01 | XMS_ITS | Clinical Summary ---
Author Organization [facility] Address [address] [place], [place] [id number] Care Team Providers Care Food Clerk Name Role Phone Leander Carrizales MD Primary Care Provider [phone] Allergies Active Allergy Reactions Criticality Noted Date [...] is lower risk 4 06/24/2023 Data from: https://www.neighborhoodatlas.medicine.[email or web address].edu/. Last address used for calculation 60 [...] Screening 06/17/2014 06/18/2011 Bone Density Screening 12/20/2016 Advance Directive Discussion 04/20/2024 Medicare Advantage Annual We llness Visit 04/20/2024 Mammogram Screening 08/04/2024 08/05/2023, 08/05/2023, 02/28/2022, Additional history exists Influenza Vaccine (#1) 2024 , 02/08/2020, 02/23/2018, Additional history exists RSV Vaccine [...] Hep B Core Ab, Total Negative NEGAT [facility] Hep C Antibody IA Negative NEGAT [facility] HBsAg Negative NEGAT [facility] Hep B Surface Ab, Qual Negative NEGAT [facility] Comment: A negative Hepatitis [...] Daniele Renae MD LABORATORY Final Resul t [facility] [address] [place] [address] * COMP METABOLIC PANEL (06/18/2011 1:49 PM EST) Protein, Total 7.4 6.0 - 8.4 g/dL [facility] Albumin 4.1 3.5 - 5.0 g/dL [facility] Calcium 9.4 8.5 - 10.5 mg/dL [facility] Bilirubin, Total 0.2 0.0 - 1.5 mg/dL [facility] Alkaline Phosphatase 75 40 - 150 U/L [facility] AST 23 7 - 40 U/L [facility] Glucose 90 65 - 100 mg/dL [facility] BUN 12 8 - 25 mg/dL [facility] Creatinine 0.80 0.70 - 1.40 mg/dL [facility] Sodium 140 132 - 148 mmol/L [facility] Potassium 3.9 3.5 - 5.0 mmol/L [facility] Chloride 106 98 - 110 mmol/L [facility] CO2 25 23 - 32 mmol/L [facility] Anion Gap 9 0 - 15 mmol/L [facility] ALT 16 0 - 45 U/L [facility] eGFR- >60 [facility] eGFR-All Other Races >60 . [facility] Comment: eGFR (Estimated GFR) Units of measure: mL/min/1.73 meters squared eGFR is derived from the reexpressed MDRD Study equation using the following parameters: serum creatinine, age, gender and race. The creatinine assay has been calibrated to be traceable to IDMS. An eGFR <60 mL/min/1.73m2 for >3 months is consistent with chronic kidney disease. Refer to KDOQI guidelines for clinical interpretation. Blood specimen (specimen) BLOOD SPECIMEN / Unknown 06/18/2011 1:49 PM EST 06/18/2011 2:03 PM EST us Rey Mejia LABORATORY Final Result [facility] [address] [place] [address] from Last 3 Months or Most Recently Relevant to Health Maintenance Insurance [facility] MEDICARE Care Teams Food Clerk Relationship Specialty Start Date End Date Leander Carrizales MD PCP - General Family Medicine 06/09/11
--- OUTSIDE RECORDS SUMMARY | 2024-12-07 09:02 | XMS_ITS | Clinical Summary ---
Author Organization [facility] Address [address] [place] [address] Care Team Providers Care Anesthesiology Resident Name Role Phone Leander Carrizales MD Primary Care Provider [phone] Allergies Active Allergy Reactions Criticality Noted Date [...] B-12) 100 MCG tablet Vitamin B12 Act ajne Accu-Chek Guide test strip 3 Active HYDROcodone-jonnie taminophen ([place]) 5-325 MG tablet TAKE 1 TABLET BY [...] SYR 22GX1 22G X 1 3 [facility] VITAMIN B-12 MONTHLY 3 [...] Care Team (Late st Contact Info) Description 12/09/2024 8:00 AM EDT Ancillary Procedure [facility] [place] [facility] [address] [place] [address] [place] [address] 07/03/2025 10:30 AM EDT Office Visit [facility] [address] [place] [facility] [address] [place] [phone] Brianna Barrios DO [address] [facility] [address] [place] [phone] Health Maintenance Due Date Last Done Comments CT Colonography 1951 Colonoscopy 1950 Colorectal Cancer Screening 1950 FIT-DNA 1950 FIT 1950 FOBT 1950 Sigmoidoscopy 1950 Mammogram 08/04/2024 08/05/2023, 02/18, 02/26/2021, Additional history exists Influenza Vaccine (#1) 2024 , 02/08/2020, 02/23/2018, Additional history exists Pneumococcal Vaccine: [...] IS VERY IMPORTANT TO YOUR HEALTH. THE [employer] GUIDELINES RECOMMEND THAT WOMEN 40 [...] Most Recently Relevant to Health Maintenance Insurance [facility] MEDICARE ADVANTAGE Care Teams Anesthesiology Resident Relationship Specialty Start Date End Date Leander Carrizales MD PCP - General Family Medicine 06/11/23
--- OUTSIDE RECORDS SUMMARY | 2024-12-07 09:02 | XMS_ITS | Patient Health Record ---
Author Organization [facility] [place] Address [address] [place] [address] Care Team Providers Care Answering Service Operator Name Role Phone Nixon Carrizales Primary Care Provider [phone] [place] Dash Unavailable [phone] Deepali Jansen Unavailable [phone] Trisha Mcneil Unavailable [phone] Allergies Allergen (clinical drug ingredient) Drug/Non Drug Allergy documented on EMR Reaction Allergy Type Onset Date Status Substance with sulfonamide structure and antibacterial mechanism of action (substance) Sulfa Antibiotics rash Drug Allergy Active Results Component Value Reference Range Notes PTT Reviewed date:10/12/2024 09:00:49 PM Interpretation: Performing Lab: Notes/Report: [facility] , Partial Thromboplastin Time 25.9 22.3-36.2 sec Performing Lab: see note ML - [facility] LB UA DIP NONAUTO WO MICRO (810 02) - IN OFFICE (Not yet reviewed by provider) Interpretation: Performing Lab: Notes/Report: COLOR yellow CLARITY clear GLUCOSE n BILIRUBIN n KETONE n SPECIFIC GRAVITY 1.010 BLOOD +++ PH 6 PROTEIN 15 UROBILINOGEN n NITRITE n LEUKOCYTE ESTERASE 500++ UA DIP NONAUTO WO MICRO (810 02) - IN OFFICE (Not yet reviewed by provider) Interpretation: Performing Lab: Notes/Report: COLOR yellow CLARITY clear GLUCOSE neg BILIRUBIN neg KETONE neg SPECIFIC GRAVITY 1010 BLOOD ++ PH 5 PROTEIN neg UROBILINOGEN neg NITRITE neg LEUKOCYTE ESTERASE large FREE T3 Reviewed date:10/12/2024 09:00:49 PM Interpretation: Performing Lab: Notes/Report: [facility] , Free T3 2.10 2.18-3.98 pg/mL Performing Lab: see note ML - [facility] LB GLYCOHEMOGLOBIN A1C Reviewed date:10/12/2024 09:00:49 PM Interpretation: Performing Lab: Notes/Report: [facility] , Glycohemoglobin A1C 5.3 4.5-6.2 % > 7.0 ADA RECOMMENDED LIMIT 4.0 - 6.0 ADA THERAPEUTIC TARGET < 7.0 ACTION SUGGESTED Estimated Average Glucose 105 Performing Lab: see note ML - [facility] LB IRON Reviewed date:10/12/2024 09:00:49 PM Interpretation: Performing Lab: Notes/Report: [facility] , Iron 99.0 50.0-170.0 ug/dL Performing Lab: see note ML - [facility] LB LIPID PROFILE Reviewed date:10/12/2024 09:00:49 PM Interpretation: Performing Lab: Notes/Report: [facility] , Triglycerides 62 <=150 mg/dL Cholesterol 159 <=200 mg/dL HDL Cholesterol 64 40-60 mg/dL > or =60 mg/dl - LOW CARDIOVASCULAR RISK <40 mg/dl - HIGH CARDIOVASCULAR RISK LDL Cholesterol Calculated 83.0 160-189 mg/dl HIGH <100 mg/dl OPTIMAL 130-159 mg/dl BORDERLINE HIGH >190 mg/dl VERY HIGH 100-129 mg/dl NEAR OR ABOVE OPTIMAL VLDL CHOLESTEROL 12.4 Chol HDL Ratio 2.5 4.4 - 7.1 AVERAGE RISK 3.3 - 4.4 LOW RISK 7.1 - 11.0 MODERATE RISK >11.0 HIGH RISK Performing Lab: see note ML - [facility] LB PROF 14(COMP METB) Reviewed date:10/12/2024 09:00:49 PM Interpretation: Performing Lab: Notes/Report: [facility] , Sodium 141 136-145 mmol/L Potassium 4.0 3.5-5.1 mmol/L Chloride 105 98-107 mmol/L Carbon Dioxide 31.0 21.0-32.0 mmol/L Anion Gap 9.0 Glucose 89 74-106 mg/dL Blood Urea Nitrogen 19.0 7.0-18.0 mg/dL Creatinine 0.87 0.55-1.02 mg/dL Estimated GFR ( Yun >60 >=60 mL/min/1.73m 2 Estimated GFR (Non- [place] >60 >=60 mL/min/1.73m 2 BUN Creatinine Ratio 21.8 Calcium 9.5 8.5-10.1 mg/dL Bilirubin Total 0.4 0.2-1.0 mg/dL Aspartate Amino Transferase 17 15-37 U/L Alanine Aminotransferase 19 14-59 U/L Alkaline Phosphatase 94 46-116 U/L Total Protein 7.4 6.4-8.2 g/dL Albumin Level 3.2 3.4-5.0 g/dL Globulin 4.2 Albumin Globulin Ratio 0.8 Performing Lab: see note ML - [facility] LB T4 Reviewed date:10/12/2024 09:00:49 PM Interpretation: Performing Lab: Notes/Report: [facility] , T4 Thyroxine 11.10 4.80-13.90 ug/dL Performing Lab: see note ML - [facility] LB TSH Reviewed date:10/12/2024 09:00:49 PM Interpretation: Performing Lab: Notes/Report: [facility] , Thyroid Stimulating Hormone 0.581 0.358-3.740 uIU/mL Performing Lab: see note ML - [facility] LB VITAMIN D 25 [place] Reviewed date:10/12/2024 09:00:49 PM Interpretation: Performing Lab: Notes/Report: [facility] , Vitamin D 35.0 <20 ng/mL Vit D deficient >100 ng/mL Potential Toxicity 20-<30 ng/mL Vit D insufficient 30-100 ng/mL Vit D sufficient Performing Lab: see note - [facility] LB CBC AUTO DIFF Reviewed date:10/12/2024 09:00:49 PM Interpretation: Performing Lab: Notes/Report: [facility] , White Blood Count 8.6 4.0-11.0 10 3/uL Red Blood Count 4.38 4.20-5.40 10 6/uL Hemoglobin 13.6 12.0-16.0 g/dL Hematocrit 39.5 36.0-48.0 % Mean Corpuscular Volume 90.2 81.0-99.0 fL Mean Corpuscular Hemoglobin 31.1 26.7-34.0 pg Mean Corpuscular HGB Conc 34.4 29.9-35.2 g/dL Red Cell Distribution Width 13.0 11.0-15.0 % Platelet Count 233 150-450 10 3/uL Mean Platelet Volume 8.2 9.5-13.5 fL Neutrophils Percent Auto 73.4 43.0-75.0 % Lymphocytes Percent Auto 18.7 20.5-60.0 % Monocytes Percent Auto 5.6 1.7-12.0 % Eosinophils Percent Auto 1.2 0.9-7.0 % Basophils Percent Auto 0.5 0.2-2.0 % Immature Granulocytes Pct Auto 0.6 0.0-0.5 % Neutrophils Absolute Auto 6.3 1.4-6.5 10 3/uL Lymphocytes Absolute Auto 1.6 1.2-3.8 10 3/uL Monocytes Absolute Auto 0.5 0.3-0.8 10 3/uL Eosinophils Absolute Auto 0.1 0.0-0.7 10 3/uL Basophils Absolute Auto 0.0 0.0-0.1 10 3/uL Immature Granulocytes Abs Auto 0.05 0.00-0.03 10 3/uL Performing Lab: see note [facility] LB Urine Culture, Routine Reviewed date:02/16/2024 08:18:49 PM Interpretation: Performing Lab: Notes/Report: [facility] , Urine Culture, Routine See Below For Report Urine Culture, Routine Urine Culture, Routine Mixed urogenital camilo Urine Culture, Routine Urine Culture, Routine Less than 10,000 colonies/mL Urine Culture, Routine Urine Culture, Routine Performed at: [facility] Urine Culture, Routine Urine Culture, Routine [address] [place] [id number] Urine Culture, Routine Urine Culture, Routine Apartment Manager: Dwayne Marquez PhD, Phone: [phone] Urine Culture, Routine Performing Lab: see note [facility] LB SEE REPORT - Engine Head Repairer Id information not found for OBX-specific email producer legend Vitamin B12 Reviewed date:02/16/2024 08:08:35 PM Interpretation: Performing Lab: Notes/Report: [facility] , Vitamin B12 255 525-0054 pg/mL Performed at: [address] [id number] Apartment Manager: Dwayne Marquez PhD, Phone: [phone] Performing Lab: see note [facility] LB FOLATE Reviewed date:02/15/2024 10:02:35 PM Interpretation: Performing Lab: Notes/Report: [facility] , Folate 16.30 8.60-58.90 ng/mL Performing Lab: see note - [facility] LB UA DIP NONAUTO WO MICRO (810 02) - IN OFFICE Reviewed date:08/12/2024 02:12:02 PM Interpretation: Performing Lab: Notes/Report: COLOR Yellow CLARITY Clear GLUCOSE Neg BILIRUBIN Neg KETONE Neg SPECIFIC GRAVITY 1.010 BLOOD Neg PH Neg PROTEIN Neg UROBILINOGEN Neg NITRITE Neg LEUKOCYTE ESTERASE ++ COVID-19, Flu A+B IH Reviewed date:10/12/2024 09:00:49 PM Interpretation: Performing Lab: Notes/Report: COVID - FLU A - FLU B - Control + UA RANDOM Reviewed date:02/16/2024 08:18:57 PM Interpretation: Performing Lab: Notes/Report: [facility] , Color Urine LT. YELLOW YELLOW Clarity Urine CLEAR CLEAR Specific [place] Urine 1.010 1.005-1.025 pH Urine 6.0 5.0-9.0 Protein Urine NEGATIVE NEG/TRACE mg/dL Glucose Urine UA NEGATIVE NEGATIVE mg/dL Bilirubin Urine NEGATIVE NEGATIVE Ketones Urine NEGATIVE NEGATIVE mg/dL Blood Urine TRACE-I NEGATIVE Nitrite Urine NEGATIVE NEGATIVE Urobilinogen Urine 0.2 0.2-1.0 EU/dL Leukocyte Esterase Urine MODERATE NEGATIVE Performing Lab: see note ML - [facility] LB Prothrombin Time INR Reviewed date:10/12/2024 09:00:49 PM Interpretation: Performing Lab: Notes/Report: [facility] , Prothrombin Time 10.3 9.0-11.6 sec INR 0.97 2.5-3.5 FOR PROSTHETIC HEART VALVE REPLACEMENT 2.0-3.0 CONDITIONS NOT LISTED BELOW 2.5-3.5 RECURRENT THROMBOSIS DESIRED INR: Performing Lab: see note ML - [facility] LB Reason For Referral Diagnosis 1 Arthritis of lumbosa cral spine (M47.817) Diagnosis 2 Lumbar disc disease (M51.9) Diagnosis 3 Other intervertebral disc displacement, lumbar region (M51.26) Referral Organization [facility] Referring Provider First Name Nixon Referring Provider Last Name All [facility] Referred Provider Genet Morris Referred Provider Specialty Neurological Surgery Referral Priority Routine Medications Medication SIG (Take, Route, Frequency, Duration) Notes Start Date End Date Status Losartan Potassium 100 MG 1 tablet Orall [...] TABLET E VERY WEEK for 84 Active Vitamin D3 50 MCG (1999 UT) 1 capsule Or ally Once a day for 30 day(s) Active Accu-Chek FastClix Lancets - TEST BLOOD SUGAR EVERY DAY for 90 Active Rollator 1 rollator to safely complete ADLs DX M51.36 for 365 days 10/11/2024 Active levoFLOXacin 750 MG 1 tablet Orally Once a day for 10 day(s) 11/28/2024 Active Pantoprazole Sodium 40 MG TAKE 1 TABLET EVERY DAY for 90 Active [place] & Syringes use for monthly b12 injections for 365 days 23G x 1 3ml syringe 08/16/2024 Active Meloxicam 15 MG TAKE 1 TABLET EVERY DAY for 90 Active Triamcinolone Acetonide 0.1 % 1 application Externally bid 11/28/2024 Active Benzonatate 200 MG 1 capsule Orally Thr ee times a day for 7 days 11/28/2024 Active Immunizations Vaccine Route Administration Date Status Comme nts Flu, Fluad (90574) 65 yrs and older, single-dose syringe () IM Intramuscular 03/25/2024 Administered Flu, Fluad (21894) 65 yrs+, single-dose syringe (8725-4355) IM Intramuscular 01/20/2023 Administered Tdap (Adacel) IM [...] Problem Status W/U Status Risk Notes Problem 65000808 Acute bronchitis (466.0) Active confirmed Problem Syncope and collapse (637724520) Syncope and collapse (R55) Active confirmed Problem Peripheral vertigo (15068235) Other peripheral vertigo, unspecified ear (H81.399) Active confirmed Problem 150864525 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) Active confirmed Problem 58715521 Other disorder o f circulatory system (I99.8) Active confirmed Problem Unstageable pressure injury of right ankle (disorder) (33710393179846442) Pressure ulcer of right ankle, unspecified stage (L89.519) Active confirmed Problem 475557854 Other intervertebral disc displacement, lumbar region (M51.26) Active confirmed Problem Spasm of back muscles (840538205) Muscle spasm of back (M62.830) Active confirmed Problem Skin symptom change (651993807) Unspecified skin changes (R23.9) Active confirmed Problem 867789675 Frequency of micturition (R35.0) Active confirmed Problem Exposure to communicable disease (443171268) Contact with and (suspected) exposure to other viral communicable diseases (Z20.828) Active confirmed Problem Recurrent urinary tract infection (853435336) Recurrent UTI (N39.0) Active confirmed Problem Hypertension (18351106) Hypertension (I10) Active confirmed Problem Hypothyroidism (49681579) Hypothyroidism (E03.9) Active confirmed Problem Edema (33164670) Edema (R60.9) Active confirmed Problem Varicose vein (34199211) Varicose vein (I86.8) Active confirmed Problem Dyspnea (308388878) Dyspnea (R06.00) Active con firmed Problem Essential hypertension (88470557) Benign essential HTN (I10) Active confirmed Problem Insomnia (475091826) Insomnia (G47.00) Active confirmed Problem Acid reflux (609761782) Acid reflux (K21.9) Active confirmed Problem Urinary incontinence (036806609) Urinary incontinence (R32) Active confirmed Problem Degenerative joint disease (296717248) DJD (degenerative joint disease) (M19.90) Active confirmed Problem Lumbar post-laminectomy syndrome (217991312) Lumbar post-laminectomy syndrome (M96.1) Active confirmed Problem Sinusitis (47716156) Sinusitis (J32.9) Active confirmed Problem Disorder of lumbar disc (830519751) Lumbar disc disease (M51.9) Active confirmed Problem Pharyngitis (193243145) Pharyngitis (J02.9) Active confirmed Problem Acute bronchitis (63533253) Acute bronchitis (J20.9) Active confirmed Problem Sciatica (24159084) Sciatica (M54.30) Active co nfirmed Problem Cellulitis (623406165) Cellulitis (L03.90) Active confirmed Problem Alopecia (80694691) Hair loss (L65.9) Active co nfirmed Problem Seasonal allergic rhinitis (170050398) Seasonal allergic rhinitis (J30.2) Active confirmed Problem Pain of left hand (704924981219315) Left hand pain (M79.642) Active confirmed Problem Vitamin B12 deficiency (non anemic) (36372492) B12 deficiency (E53.8) Active confirmed Problem Foot ulcer due to type 2 diabetes mellitus (8456933248660) Type 2 diabetes mellitus with foot ulcer (E11.621) Active confirmed Problem Lumbosacral radiculopathy (4159617) Lumbosacral neuritis (M54.17) Active confirmed Problem Osteoarthritis (535069572) Osteoarthritis, unspecified osteoarthritis type, unspecified site (M19.90) Active confirmed Problem Pain in limb (82074711) Pain in left lower leg (M79.662) Active confirmed Problem Acute sinusitis (38161134) Acute sinus infection (J01.90) Active confirmed Problem Overweight (352397710) Over weight (E66.3) Active confirmed Problem Dyshidrotic eczema (654113963) Dyshidrotic eczema (L30.1) Active confirmed Problem Ankylosing spondylitis (2088536) Ankylosing spondylitis (M45.9) Active confirmed Problem Nevus (5499814430) Nevus (D22.9) Active confirm ed Problem Ankle edema (28465577) Ankle edema (R60.0) Active confirmed Problem Acute gastroenteritis (66782799) Acute gastroenteritis (K52.9) Active confirmed Problem Peripheral vascular disease (715494013) Other peripheral vascular disease (I73.89) Active confirmed Problem Lumbosacral spondylosis without myelopathy (92621176) Other osteoarthritis of spine, lumbar region (M47.896) Active confirmed Problem Delayed healing of surgical wound (finding) (190273402) Delayed surgical wound healing (T81.89XA) Active confirmed Problem Easy bruising (955294741) Easy bruising (R23.8) Active confirmed Problem Chronic venous insufficiency (23752380) Chronic venous insufficiency (I87.2) Active confirmed Problem Allergic arthritis (71241423) Allergic arthritis (M13.80) Active confirmed Problem Peripheral vascular disease (279192150) Other peripheral vascular diseases (I73.89) Active confirmed Problem Shoulder impingement syndrome (688658908) Shoulder impingement syndrome (M75.40) Active confirmed Problem At risk for falls (536963365) At risk for falls (Z91.81) Active confirmed Problem Vitamin B deficiency (91268762) Deficiency of vitamin B12 (E53.8) Active confirmed Problem Polyneuropathy due to type 2 diabetes mellitus (549612491) Diabetes mellitus with diabetic polyneuropathy (E11.42) Active confirmed Problem Ankle ulcer (906261659) Non-healing ulcer of ankle, right, with fat layer exposed (L97.312) Active confirmed Problem Avascular necrosis of head of humerus (471931809) Avascular necrosis of head of humerus (M87.029) Active confirmed Problem Pain co-occurrent and due to varicose veins of bilateral legs (71678462120486342) Varicose veins of leg with pain, bilateral (I83.813) Active confirmed Problem Decubitus ulcer of left foot, stage 2 (L89.892) Active confirmed Problem Arthritis of lumbosacral spine (673672402) Arthritis of lumbosacral spine (M47.817) Active confirmed Problem Peripheral venous insufficiency (40977973) Acute stasis dermatitis (I87.2) Active confirmed Problem Mixed anxiety and depressive disorder (159905096) Anxiety and depression (F41.8) Active confirmed Problem Decubitus ulcer of right ankle, stage 2 (L89.512) Active confirmed Problem Allergic arthritis of the pelvic region and thigh (228526914) Allergic arthritis of left hip (M13.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) Active confirmed Problem Decubitus ulcer of calf, stage 2, unspecified laterality (L89.892) Active confirmed Problem Bruising (959684713) Bruising (T14.8XXA) Active confirmed Problem Decubitus ulcer of right foot, stage 2 (L89.892) Active confirmed Problem Pressure ulcer o f toe of left foot, stage 2 (L89.892) Active confirmed Problem Pressure injury of right ankle, stage 1 (L89.511) Active confirmed Problem Ankle ulcer (216826578) Chronic ulcer of right ankle with fat layer exposed (L97.312) Active confirmed Problem Pressure injury of right ankle, stage 2 (L89.512) Active confirmed Problem Chronic ulcer of toe of right foot with fat layer exposed (L97.512) Active confirmed Problem Lumbar spinal stenosis (55470510) Lumbar spinal stenosis (M48.061) Active confirmed Problem Osteoarthritis of knee (972932800) Osteoarthritis of right knee (M17.11) Active confirmed Problem Acute embolism a nd thrombosis of right peroneal vein (I82.451) Active confirmed Problem Clostridial enteric disease (936483562) Clostridioides difficile diarrhea (A04.72) Active confirmed Problem COVID-19 (470634384) COVID-19 (U07.1) Active confirmed Problem Polyneuropathy due to type 2 diabetes mellitus (940882342) Controlled type 2 diabetes mellitus with diabetic polyneuropathy, unspecified whether mcfp insulin use (E11.42) Active confirmed Problem Herniation of rectum into vagina (661914363) Rectocele without uterine prolapse (N81.6) Active confirmed Problem Chronic ulcer of right foot (disorder) (91349549745952681) Chronic ulcer of right foot with fat layer exposed (L97.512) Active confirmed Problem Cough (finding) (80756821) Other cough (R05.8) Active confirmed Problem Thrombophlebitis of superficial veins of lower extremity (11958949) Thrombophlebitis of superficial vein of lower leg (I80.00) Active confirmed Vital Signs Heart Rate 77 /min 09/06/2024 Temperature 97.4 degrees Fahrenheit 09/06/2024 Oximetry 98 % 09/06/2024 Blood pressure diastolic 76 mm Hg 11/28/2024 Height 68 in 11/28/2024 Blood pressure systolic 148 mm Hg 11/28/2024 Weight 190.8 lbs 11/28/2024 BMI 29.01 kg/m2 11/28/2024 Encounters Encounter Location Date Provider Diagnosis Outside Access [address] [place] [address] 08/12/2024 Nixon Carrizales [facility] [address] [place] [facility] [place] [place] [address] 08/16/[address] [facility] [address] [facility] [place] [address] 10/11/[address] [facility] [address] [facility] [place] [address] 10/11/2024 Nixon Hoy Screening for breast cancer Z12.39 [facility] [address] [facility] [place] [address] 10/12/2024 Nixon Jasviry [facility] [address] [place] [facility] [place] [place] [address] 11/21/[address] [facility] [address] [facility] [place] [address] 02/09/2024 Nixon Hoy Urinary incontinence R32 [facility] [address] [facility] [place] [address] 02/16/[address] [facility] [address] [facility] [place] [address] 02/29/2024 Nixon Hoy B12 deficiency E53.8 [facility] [address] [facility] [place] [address] 06/23/2024 Nixon Hoy B12 deficiency E53.8 [facility] [address] [facility] [place] [address] 06/28/2024 Nixon Hoy Influenza A J10.1 ; Bronchitis J40 and Frequency of micturition R35.0 [facility] [address] [facility] [place] [address] 07/29/2024 Nixon Hoy Arthritis of lumbosacral spine M47.817 and Other intervertebral disc displacement, lumbar region M51.26 [facility] [address] [facility] [place] [address] 12/22/[address] [facility] [address] [facility] [place] [address] 01/19/2024 Nixon Hoy B12 deficiency E53.8 ; Hypertension I10 ; Hair loss L65.9 and Insomnia G47.00 [address] [place] [address] 02/19/2024 Trisha Mcneil Deficiency of vitami n B12 E53.8 ; Bronchitis J40 and Cough R05.[address] [address] 08/12/2024 Nixon Hoy Frequent urination R35.0 ; Lumbar disc disease M51.9 and Lumbar post-laminectomy syndrome M96.[address] [address] 09/06/2024 Trisha Mcneil Sinusitis J32.[address] [address] 10/11/2024 Nixon Hoy Easy bruising R23.8 ; Muscle spasm of back M62.830 ; Hypertension I10 ; DJD (degenerative joint disease) M19.90 and Controlled type 2 diabetes mellitus with diabetic polyneuropathy, 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 [facility] (PODIATRY) [address] [place] [address] [place] [address] 03/03/2024 Deepali Jansen Deficiency of vitami n B12 E53.8 ; Pain in right toe(s) M79.674 ; Pain in left toe(s) M79.675 and At risk for falls Z91.[address] [address] 11/16/2024 Nixno Hoy UTI (urinary tract infection) N39.0 and Muscle spasm of back M62.[address] [address] 05/16/2024 Trisha Mcneil Influenza A J10.1 an d Left foot pain M79.[address] [address] 07/29/2024 Nixon Hoy Type 2 diabetes mellitus with foot ulcer E11.621 ; Muscle spasm of back M62.830 and Lumbar post-laminectomy syndrome M96.1 [facility] [address] [facility] [place] [address] 11/28/2024 Nixon Hoy Frequency of micturition R35.0 ; Acute bronchitis 466.0 and Recurrent UTI N39.0 [facility] [address] [facility] [place] [address] 12/22/2023 Nixon Hoy Deficiency of vitami n B12 E53.8 [facility] [address] [facility] [place] [address] 03/25/2024 Nixon Hoy Deficiency of vitami n B12 E53.8 and Encounter for immunization Z23 [facility] [address] [place] [address] 04/22/2024 Nixon Hoy Deficiency of vitami n B12 E53.[address] [place] [address] 05/25/2024 Nixon Hoy Deficiency of vitami n B12 E53.8 [address] [place] [address] 06/20/2024 Nixon Hoy Deficiency of vitami n B12 E53.[address] [address] 07/20/2024 Nixon Hoy Deficiency of vitami n B12 E53.8 Assessments Encounter Date Diagnosis (ICD Code) Assessment Notes Treatment Notes Treatment Clinical Notes Section Notes 12/22/2023 Deficiency of vitamin B12 (ICD-10 - [...] Muscle spasm of back (ICD-10 - M62.830) 11/16/2024 UTI (urinary tract infection) (ICD-10 - N39.0) 11/16/2024 Muscle spasm of back (ICD-10 - M62.830) 11/28/2024 Frequency of micturition (ICD-10 - R35.0) 11/28/2024 Acute bronchitis (ICD9-CM - 466.0) 02/09/2024 Urinary incontinence (ICD-10 - R32) 02/29/2024 B12 deficiency (ICD-10 - E53.8) 06/23/2024 B12 deficiency (ICD-10 - E53.8) 06/28/2024 Influenza A (ICD-10 - J10.1) 07/29/2024 Arthritis of lumbosacral spine (ICD-10 - M47.817) 07/29/2024 Other intervertebral disc displacement, lumbar region (ICD-10 - M51.26) 10/11/2024 Screening for breast cancer (ICD-10 - Z12.39) 06/28/2024 Bronchitis (ICD-10 - J40) 11/28/2024 Recurrent UTI (ICD-10 - N39.0) 10/11/2024 Hypertension (ICD-10 - I10) 08/12/2024 Lumbar [...] DJD (degenerative joint disease) (ICD-10 - M19.90) 06/28/2024 Frequency of micturition (ICD-10 - R35.0) 10/11/2024 Controlled type 2 diabetes mellitus with diabetic polyneuropathy, unspecified whether mcfp insulin use (ICD-10 - E11.42) 07/29/2024 Other Recommended to rest and use a heating pad on the area. Take NSAIDs for pain as needed 08/12/2024 Other Recommended to rest and use a heating pad on the area. Take NSAIDs for pain as needed 09/06/2024 Other woody carrasquillo LE discoloration Plan Of Treatment Pending Test Test Name Order Date CMP (COMPLETE METABOLIC PANEL) UA (URINALYSIS, COMPLETE) 02/09/2024 HEMOGLOBIN A1C (GLYCO) 10/11/2024 IRON, TOTAL 10/11/2024 LIPID PANEL (CHOL/TRIG/HDL/LDL) 10/12/19 25 VITAMIN D, 25 LEVEL (TOTAL) 10/11/2024 Urinalysis Microscopic 05/22/2023 UA DIP NONAUTO WO MICRO (50889) - IN OFF ICE 11/16/2024 UA DIP NONAUTO WO MICRO (07172) - IN OFF ICE 11/28/2024 PT - INR 10/11/2024 STOOL OCCULT BLOOD 10/11/2024 CULTURE URINE 05/22/2023 CULTURE URINE 02/09/2024 OCC BLD IMMUNO SCREEN 10/19/2023 VIT B12 AND FOLATE 01/19/2024 MRI LSPINE WO CON 01/07/2023 US KIDNEYS BLADDER 05/22/2023 XR SHOULDER LT 2V or > 07/20/2023 THYROID PANEL (T4/TSH/FREE T3) THYROID PANEL (T4/TSH/FREE T3) BI MAMMOGRAM SCREENING TOMOSYNTHESIS SAMI ATERAL 10/11/2024 CMP (COMP MET [facility]) w/eGFR CKD-EPI 2024 CBC WITH DIFF 10/11/2024 Next Appt Details Provider Name:Nixon Hampton Jasvircarolina, 09:45:00 AM, [address] [place], [address], Insurance Providers Payer Name Payer Address Payer Phone Subscriber Number Group Number Insured Name Patient Relationship to Insured Coverage Start Date Coverage End Date [employer] [address] [place] [phone] [id number] Leelee Cedillo Self - patient is the [...] 60 mg Ketorolac Tromethamine 08/12/2024 60 mg Ketorolac Tromethamine 11/16/2024 60 mg Orphenadrine Citrate 08/25/2022 60 mg 60 Orphenadrine Citrate 11/12/2022 60 mg 60 Orphenadrine Citrate 12/31/2022 60 mg Orphenadrine Citrate 01/07/2023 60 mg 60 Orphenadrine Citrate 07/20/2023 60 mg 60 Orphenadrine Citrate 07/29/2024 60 mg Orphenadrine Citrate 08/12/2024 60 mg Orphenadrine Citrate 11/16/2024 60 mg Triamcinolone 40 mg/ml 07/29/2024 120 mg Triamcinolone 40 mg/ml 08/12/2024 120 mg Triamcinolone 40 mg/ml 11/16/2024 120 mg Medical (General) History Medical History [...] M51.26 Ischemia I99.8 Surgical History Surgery Date(Month/Year) Rotator Cuff Repair, rt 2010 Cholecystectomy 2007 Lumbar Epidural Steroid injection, Dr. 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
--- OUTSIDE RECORDS SUMMARY | 2024-12-07 09:11 | XMS_ITS | CCD ---
Author Organization [facility] Care Team Providers Care Lamp Cleaner Name Role Phone Praveen Lopez Unavailable Unavailable PHYSICIAN, DEFAULT Unavailable Unavailable PHYSICIAN, DEFAULT Unavailable Unavailable SARA VICK Unavailable Unavailable Sara Vick~[phone] UNKNOWN Admitting Unavailable Sara Vick~[phone] UNKNOWN Attending Unavailable Sara Vick~[phone] UNKNOWN Referring Unavailable Sara Vick Primary Care Provider [phone] Trino Yoo Attending Provider Larry Brown Unavailable Sara Vick Primary Care Physician [phone] Lynn Salas Unavailable Unavailable Flor Wheeler Unavailable Unavailable ADELE FLEMING Attending Unavailable SARA VICK Primary Care Unavailable MD Sara Vick Primary Care Provider MD Sara Vick Attending Provider [phone] DEEPALI JANSEN Consulting Unavailable DEEPALI JANSEN Admitting Unavailable DEEPALI JANSEN Attending Unavailable DR SARA OVERTON Primary Care Unavailable ADELE FLEMING Attending Unavailable ADELE FLEMING Admitting Unavailable NICANOR Mohan, DR RUIZ Primary Care [...] HOY ., DR RUZI Primary Care Unavailable HIGHLANDER, PETER D Admitting Unavailable HIGHLANDER, PETER D Attending Unavailable HIGHLANDER, PETER D Consulting Unavailable HOY ., DR RUIZ Primary Care Unavailable MAGNOLIA ., NIKHLI PARKS Consulting Unavailable EARL TAYLOR Consulting Unavailable [...] Unavailable Sara Vick MD Primary Care Provider [phone] Julio Ferrara Consulting Unavailable Francisco Alcazar S Admitting Unavailable Francisco Alcazar S Attending Unavailable Arkoma, Julio Consulting Unavailable Arkoma, Julio Consulting Unavailable Arkoma, Julio Consulting Unavailable Arkoma, Julio Consulting Unavailable Ark[place], Julio Consulting Unavailable Ark[place], Julio Consulting Unavailable Ark[place], Julio Consulting Unavailable [place], Julio Consulting Unavailable Wm Nagy Attending Unavailable Flavio Castillo Attending Unavailable Alley Naranjo Admitting Unavailable Alely Naranjo Attending Unavailable Jose A, Alley Referring Unavailable Dominique Shane Unavailable MD Sara Vick Primary Care Provider MD Larry Brown Attending Provider Kiran Kessler Unavailable HAILEY Jansen Attending Provider [phone] MD Kiran Kessler Attending Provider Sara Vick [...] Sara Vick Primary Care Provider [phone] HIALEY Jansen Attending Provider MD Kiran Kessler Attending [...] Sulfonamides (Antibiotic) Drug allergy (disorder) 08-02-19 10 [facility] Repository (4 sources) Sulfamethoxazole; Translations: [sulfamethoxazole ] Drug Allergy Cutaneous eruption (morphologic abnormality) [facility] Repository (2 sources) Sulfur; Translations: [Sulfur] Drug Allergy [facility] Repository (11 sources) Sulfonamides (Antibiotic); Translations: [Sulfa (Sulfonamide Antibiotics)] Allergy to substance 07-17-19 07 Rash [facility] (17 sources) Sulfacetamide Drug Allergy 09-19-19 23 [facility] Other (2 sources) metroNIDAZOLE Drug Allergy 09-19-19 23 Dyspepsia [facility] (1 source) Sulfacetamide Drug Allergy 07-01-19 24 [facility] Repository Medications Current Medications Medication Drug Class(es) [...] for 30 days Dec, Active Start: 03-08-2022 Progreso 325 mg-5 mg oral tablet 1 tab(s), [...] 06/19/2017 9:00:00 take 1 capsule by mo [facility] every twenty-four hours Vitamin D3 50 [...] 1:00am Start: 06-19-2017 take 1 tablet by [facility] once daily Pantoprazole Sodium Tablet Delayed Release [...] Start: 07-26-2022 take 2 tablets by mo [facility] every eight hours as needed for muscle spasms tiZANidine 4 mg Tab 8 mg = 2 tab(s), Oral, q8hr, PRN Spasm, Refills(s) 0 Start Date: 07/26/22 Status: Ordered Start: 06-19-2017 take 2 tablets by mo [facility] twice daily Zanaflex Tablet 4 MG 2 tablet Tablet Oral GIVE 2 TABS (8MG) BY MOUTH TWICE DAILY FOR MUSCLOSKELETAL 06/19/2017 9:00:00 take 1 capsule by [facility] once daily at bedtime tiZANidine HCl 4 mg capsule Take 4 mg by mouth daily at bedtime. 0 Active take 1 capsule by [facility] every eight hours tiZANidine HCl 4 [...] 07-01-2013 Chronic Other aftercare (1 source) Other long-term (current) drug therapy; Translations: [OTH SLURRY MAN CURRENT DRUG THERAPY] Onset: 3 Episodic Other [...] sources) Peripheral vascular disease; Translations: [Atherosclerosis of [place] arteries of extremities with intermittent claudication, bilateral [...] MR Thoracic spine WO contras ton 08-08-2023 [facility] MRI THORACIC SPINE WO IVCONo n [...] and assume there are 5 lumbar-type vertebrae. Forensic Engineer: [facility] Transcribe Date/Time: Aug 08 2023 9:09P Dictated by : AHRRY JONES MD This examination was interpreted and the report reviewed and electronically signed by: HARRY JONES MD on Aug 08 2023 9:14PM EST [id number] Normal [facility] BI MAMMOGRAM SCREENING TOMOS YNTHESIS BILATERALon [...] IS VERY IMPORTANT TO YOUR HEALTH. THE [employer] GUIDELINES RECOMMEND THAT WOMEN 40 [...] DATE OF EXAM: Jul 13 2023 11:11AM [facility] 0508 - CT LUMBAR SPINE WO [...] are 5 lumbar-type vertebrae. Anatomic variant: None. Bead Flipper (topogram) images: Left femoroacetabular arthroplasty. Alignment: Mild [...] any questions regarding this interpretation, please call [phone]. If you are unable to reach us at the number above, please feel free to contact [facility] eRadiology at [phone]. [id number] Normal [facility] CT Lumbar spine WO contrasto n 07-13-2023 [facility] CNOVon 06-24-2023 CNOV Office Visit (SPNSMN ) LEELEE CEDILLO ([id number]) 1950 F Date Time Provider Department 06/24/23 [...] Ghanshyam Lombardi MD Referring Provider: SARA VICK [[id number]] Allergies As of Date: 06/24/2023 Noted Allergy Reaction SULFA (SULFONAMIDE ANTIBIOTICS) 07/16/2006 Date Reviewed: 06/24/2023 Reviewed by: Kaur Manzano MA - Fully Assessed Reason for Visit: New Patient [172] Primary Visit Diagnosis:Adjacent segment disease of lumbar spine with history of fusion procedure [M51.36, Z98.1] Other Visit Diagnosis:Chronic bilateral low back pain with bilateral sciatica [M54.42, M54.41, G89.29] Order(s):MRI THORACIC SPINE WO IVCON [[id number]] Order #: [id number] FUTURE CT LUMBAR SPINE WO IVCON [[id number]] Order #: [id number] FUTURE Prescriptions as of 06/24/2023 - pantoprazole [...] Status:Closed by GHANSHYAM LOMBARDI on 06/24/23 Normal [facility] XR LUMBAR 4V AP/LAT/ FLEX/EX Ton [...] Number of different views (projections): 2 (accession [id number]), 4 (accession [id number]) COMPARISON: Radiographs dated 09/23/2021 RESULT: Counting reference: [...] changes with no evidence of hardware complication. Forensic Engineer: [facility] Transcribe Date/Time: Jun 24 2023 12:52P Dictated by : LATASHA QUEZADA MD This examination was interpreted and the report reviewed and electronically signed by: LATASHA QUEZADA MD on Jun 24 2023 12:55PM EST [id number] Normal [facility] XR Lumbar spine Views W flex ion and W extensionon 06-24-2023 [facility] XR SCOLIOSIS 2V PA STAND/LAT on [...] Number of different views (projections): 2 (accession [id number]), 4 (accession [id number]) COMPARISON: Radiographs dated 09/23/2021 RESULT: Counting reference: [...] changes with no evidence of hardware complication. Forensic Engineer: [facility] Transcribe Date/Time: Jun 24 2023 12:52P Dictated by : LATASHA QUEZADA MD This examination was interpreted and the report reviewed and electronically signed by: LATASHA QUEZADA MD on Jun 24 2023 12:55PM EST [id number] Normal [facility] XR Thoracic and lumbar spine Views for scoliosis W standingon 06-24-2023 [facility] US arterial pvr rest Vito US arterial pvr rest [facility] [place] [address] Ultrasound Report Signed Patient: Leelee Cedillo MR#: [id number] 56 : 1950 Acct:[id number] Age/Sex: 72 / F ADM Date: 05/22/23 [...] Drake Bates M.D.05/25/2023 10:58 AM Dictation Location: [place] [address] Tech: Katy Leone Transcribed By: LISBETH 05/25/23 1058 Dictated By: Drake Bates MD 05/25/23 1057 Signed By: 05/25/23 1058 Normal [facility] US venous duplex LE BIon US venous duplex LE BI [facility] [place] [address] Ultrasound Report Signed Patient: Leelee Cedillo MR#: [id number] 56 : 1950 Acct:[id number] Age/Sex: 72 / F ADM Date: 05/22/23 [...] vein has previously been stripped. No significant knockup worker incompetence is noted. The lesser saphenous vein [...] 4 mm in diameter. Impression dictated by: Darke Bates M.D.05/25/2023 10:57 AM Dictation Location: [place] [address] Tech: Katy Leone Transcribed By: LISBETH 05/25/23 1057 Dictated By: Drake Bates MD 05/25/23 1055 Signed By: 05/25/23 1057 Normal [facility] ED Note-Physicianon 11-26-19 ED Note-Physician Normal [facility] Comment on above: Result Comment: Elec tronically Signed By: Sathya De La O PA-C\.br\Date and Time Signed: 11/22/22 14:13 EDT\.br\Electronically Co-Signed By: Flavio Castillo MD\.br\Date and Time Co-Signed: 11/25/22 13:23 EDT Consent for Treatmenton Consent for Treatment [id number]#1.0 0CD:127 Normal [facility] Discharge Instructionson Discharge Instructions [id number]#1. 00CD:127 Normal [facility] ED Clinical Summaryon 2022 ED Clinical Summary Normal Stefania wu [facility] ED Patient Education Noteon 11-22-2022 ED Patient Education Note Normal [facility] ED Patient Summaryon 023 ED Patient Summary Normal [facility] Neurology Forms- Texton Neurology Forms- Text [id number]#1. 00CD:127 Normal [facility] EEGon 09-11-2022 EEG [facility] Comment on above: Result Comment: Elec tronically Signed By: Jonathan Powell DO\.br\Date and Time Signed: 09/11/22 10:41 EDT Consent for Treatmenton 08-19 Consent for Treatment [id number]#1.0 0CD:127 Normal [facility] Physician Orderon 09-03-2022 Physician Order [id number]#1.0 0CD:127 Normal [facility] VC CONSULT FOLLOWUPon 2022 VC CONSULT FOLLOWUP Patient: ITZEL CEDILLO Exam Date: 08/08/2022 : 1950 Gender:F Ordering : DR ALFRED UMAÑA M.D. Admission #: [id number] Family : Order #: [id number] CLICK HERE TO VIEW EXAM RADIOLOGY REPORT [...] Umaña MD on 08/08/2022 at 10:59 Normal [facility] EXT VENOUS LT LIMITEDon 0 08-08-2022 VC EXT VENOUS LT LIMITED Patient: LEELEE CEDILLO Exam Date: 08/08/2022 : 1950 Gender:F Ordering : DR ALFRED UMAÑA M.D. Admission #: [id number] Family : Order #: [id number] CLICK HERE TO VIEW EXAM RADIOLOGY REPORT [...] Umaña MD on 08/08/2022 at 09:43 Normal [facility] Coding Summary.on 07-29-2022 Coding Summary. Normal [facility] Insurance Correspondenceon 0 07-29-2022 Insurance Correspondence [id number]#1.0 0CD:127 Normal [facility] Insurance Correspondence Off iceon 07-29-2022 Insurance Correspondence Office [id number]#1. 00CD:127 Normal [facility] Discharge Instructionson Discharge Instructions [id number]#1. 00CD:127 Normal [facility] KtbF0exi 07-28-2022 HbA1c (Bld) [Mass fraction] 5.3 % Normal <=5.9 [facility] Comment on above: Performed By: #### 2 450911, 8831349, 4804827, 0718158, [id number], 98539184 ####[facility] [address] [place] [address] Insurance Correspondenceon 0 07-28-2022 Insurance Correspondence [id number]#1. 00CD:127 Normal [facility] C. diff by PCRon 07-27-2022 Clostridium difficile by PCR Negative Normal Negative [facility] Comment on above: Order Comment: Order added by Discern Expert. Result Comment: This test result should be correlated with clinical presentations and medical history by a healthcare provider to determine its clinical significance. Performed By: #### 3 [id number], [id number], [id number] ####[facility] [address] [facility] [place] [address] CDiff PCRon 07-27-2022 Cdiff Specimen Acceptable Acceptable Normal [facility] Comment on above: Performed By: #### 3 [id number], [id number], [id number] ####[facility] [address] [facility] [place] [address] Order Cancelled No, PCR to follow Normal [facility] Comment on above: Performed By: #### 3 [id number], [id number], [id number] ####[facility] [address] [place] [id number] CHEMISTRYOrdered By: SYSTEM SYSTEM on 07-27-2022 Anion [...] Remisol Consultation Noteon 07-28-19 Consultation Note Normal [facility] Comment on above: Result Comment: Elec tronically Signed By: Rachel MEEHAN, Smita Reardon\.br\Date and Time Signed: 07/27/22 07:14 EDT\.br\Electronically Co-Signed By: Jonathan Powell DO\.br\Date and Time Co-Signed: 07/27/22 10:23 EDT EMS Documentationon 07-28-19 EMS Documentation Normal [facility] EMS Documentation Normal [facility] EMS Documentation Normal [facility] Enteric Panel by PCRon 07-27 C. coli+jejuni+upsaliens is DNA VIVIANA+non-probe Ql (Stl) Not detected Normal [facility] Comment on above: Result Comment: Test ing was performed utilizing reverse carton forming machine tender (RT), polymerase chain reaction (PCR), and array [...] nulcleic acid test. Performed By: #### 3 [id number], [id number], [id number] ####[place] [address] [place] [address] E. coli stx1+stx2 genes VIVIANA+non-probe Ql (Stl) Negative Normal [facility] Comment on above: Performed By: #### 3 [id number], [id number], [id number] ####[place] [address] [place] [address] Enteric Panel Intrl QC Pass Normal [facility] Comment on above: Result Comment: Test ing was performed utilizing reverse carton forming machine tender (RT), polymerase chain reaction (PCR), and array [...] 1 and 2. Performed By: #### 3 [id number], [id number], [id number] ####[place] [address] Norovirus genogroup I+II RNA VIVIANA+non-probe Ql (Stl) Not detected Normal [facility] Comment on above: Performed By: #### 3 [id number], [id number], [id number] ####[place] [address] Rotavirus A RNA VIVIANA+non-probe Ql (Stl) Not detected Normal [facility] Comment on above: Performed By: #### 3 [id number], [id number], [id number] ####[place] [address] S. enterica+bongori DNA VIVIANA+non-probe Ql (Stl) Not detected Normal [facility] Comment on above: Result Comment: This test result should be correlated with clinical presentations and medical history by a healthcare provider to determine its clinical significance. Performed By: #### 3 [id number], [id number], [id number] ####[place] [address] Shigella species+EIEC invasion plasmid antigen H ipaH gene VIVIANA+non-probe Ql (Stl) Not detected Normal [facility] Comment on above: Performed By: #### 3 [id number], [id number], [id number] ####[place] [address] V. cholerae+parahaemolyt icus+vulnificus DNA VIVIANA+non-probe Ql (Stl) Not detected Normal [facility] Comment on above: Performed By: #### 3 [id number], [id number], [id number] ####[facility] [address] [place] [address] Y. enterocolitica DNA VIVIANA+non-probe Ql (Stl) Not detected Normal [facility] Comment on above: Performed By: #### 3 [id number], 8856925166, 071479856 ####[facility] [address] [place] [address] Free T4on 07-27-2022 Free T4 [Mass/Vol] 1.91 ng/dL High 0.58-1.64 [facility] Comment on above: Order Comment: Free T4 added by Discern Rule due to a TSH result of <0.34 or >5.60. Performed By: #### 2 913982, 4082925, 8027550, 4642707, 848332022, 85277022 ####[facility] [address] [place] [address] HEMATOLOGYOrdered By: Tonya Martin on 07-27-2022 WBC corrected for nucl RBC Auto (Bld) [#/Vol] 7.8 E9/L Normal 4.0 - 11.0 E9/L [facility] HemeAutoSS Inpatient Clinical Summaryon 07-27-2022 Inpatient Clinical Summary Normal [facility] Inpatient Patient Summaryon 07-27-2022 Inpatient Patient Summary Normal [facility] Inpatient Patient Summary Normal [facility] Interdisciplinary Note - Oumar e Manageron 07-27-2022 Interdisciplinary Note - Rn Labor Delivery Normal [facility] Comment on above: Result Comment: Elec tronically Signed By: Tonya Matias.alicja\Date and Time Signed: 07/27/22 12:04 EDT Interdisciplinary Note - Pipe n 07-27-2022 Interdisciplinary Note - OT Normal [facility] Interdisciplinary Note - PTo n 07-27-2022 Interdisciplinary Note - PT PT eval completed; pt scores 16/24 on the AM-PAC 6-Clicks 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 Pt is able to safely perform bed <> chair transfers as she was doing prior to admission and has no further PT needs at this time. Normal [facility] Lipid Panelon 07-27-2022 Cholesterol in LDL [Mass/Vol] 91 mg/dL Normal <=129 [facility] Comment on above: Performed By: #### 2 805494, 2599576, 0243238, 0706659, 838440190, 84543295 ####[facility] [address] [place] [address] Cholesterol [Mass/Vol] 160 mg/dL Normal 120-200 [facility] Comment on above: Performed By: #### 2 667277, 5293120, 2250313, 1669134, 348648899, 15181475 ####[facility] [address] [place] [address] Cholesterol in HDL [Mass/Vol] 52 mg/dL Invalid Interpretation Code [facility] Comment on above: Result Comment: HDL > or equal to 60 mg/dL: Low cardiovascular riskHDL < 40 mg/dL : High cardiovascular risk Performed By: #### 2 592264, 3761192, 3007963, 3856609, 614917670, 63135897 ####[facility] [address] [place] [address] Cholesterol in VLDL [Mass/Vol] 17 mg/dL Normal 7-40 [facility] Comment on above: Performed By: #### 2 809731, 0862326, 2324968, 7800185, 028773124, 30869316 ####[facility] [address] [place] [address] Triglyceride [Mass/Vol] 83 mg/dL Normal <=149 [facility] Comment on above: Performed By: #### 2 289412, 2913606, 9128420, 0913781, 174742360, 95892185 ####[facility] [address] [place] [address] Lyteson 07-27-2022 Anion gap [Moles/Vol] 9 mmol/L Normal 6-16 [facility] Comment on above: Performed By: #### 2 818891, 0577358, 1259640, 5476688, 211058650, 43178864 ####[facility] [address] [place] [address] Chloride [Moles/Vol] 106 mmol/L Normal 101-111 [facility] Comment on above: Performed By: #### 2 829585, 9785201, 7125592, 6643701, 088068250, 00197743 ####[facility] [address] [place] [address] CO2 [Moles/Vol] 26 mmol/L Normal 21-31 [facility] Comment on above: Performed By: #### 2 376841, 6103135, 1862765, 6563926, 003741065, 16297874 ####[facility] [address] [place] [address] Potassium [Moles/Vol] 4.0 mmol/L Normal 3.5-5.3 [facility] Comment on above: Performed By: #### 2 215589, 6554598, 8566429, 3270242, 731751455, 53153036 ####[facility] [address] [place] [address] Sodium [Moles/Vol] 137 mmol/L Normal 135-145 [facility] Comment on above: Performed By: #### 2 282756, 3192911, 0612825, 9994249, 558233273, 24978717 ####[facility] [address] [place] [address] MRA Head w/o Contraston MRA Head w/o Contrast Normal [facility] MRI Brain w/o Contraston MRI Brain w/o Contrast Normal [facility] Monitor Recordon 07-27-2022 Monitor Record [id number]#1. 00CD:127 Normal [facility] Monitor Record [id number]#1. 00CD:127 Normal [facility] Patient Education - Texton 0 07-27-2022 Patient Education - Text Normal [facility] RAD - MRI Screening Formon 0 07-27-2022 RAD - MRI Screening Form [id number]#1. 00CD:127 Normal [facility] TSH With T4fr Reflexon 07-27 TSH Qn 0.16 m[IU]/L Low 0.34-5.60 [facility] Comment on above: Performed By: #### 2 524370, 6570925, 1949203, 0518126, 915798417, 93481296 ####[facility] [address] [place] [address] Troponin 9 Hr.on 07-27-2022 Troponin I.cardiac [Mass/Vol] 6.70 pg/mL Low 10.10-27.10 [facility] Comment on above: Result Comment: The 95% CI (Confidence Interval) PPV (Positive Predictive Value) for myocardial infarction in females is 38 pg/mL, in males 51 pg/mL. The results should be used in conjunction with clinical conditions of myocardial infarction.(Access High Sensitivity Troponin I Instructions For Use, [employer], November 2017) Performed By: #### 1 [id number] ####[facility] [address] [place] [address] WBCon 07-27-2022 WBC corrected for nucl RBC Auto (Bld) [#/Vol] 7.8 E9/L Normal 4.0-11.0 [facility] Comment on above: Performed By: #### 2 566170, 4713106, 8235606, 7424323, 417585529, 45823421 ####[facility] [address] [place] [address] Auto Diffon 07-26-2022 Basophils/100 WBC (Bld) 0.5 % Normal 0.0-2.0 [facility] Comment on above: Order Comment: Order Added by Discern Expert. Performed By: #### 2 526533, 0393764, 8547968, 5961647, 54853646, 34430479 ####[facility] [address] [place] [address] Basophils/Leukocytes Auto (Bld) [Pure # fraction] 0.1 E9/L Normal 0.0-0.2 [facility] Comment on above: Order Comment: Order Added by Discern Expert. Performed By: #### 2 064412, 1086810, 5769423, 2926279, 49018478, 79517479 ####[facility] [address] [place] [address] Eosinophils/100 WBC (Bld) 0.5 % Normal 0.0-8.0 [facility] Comment on above: Order Comment: Order Added by Discern Expert. Performed By: #### 2 096369, 1695400, 1085376, 6188364, 57270949, 30732868 ####[address] [address] Eosinophils/Leukocyte s Auto (Bld) [Pure # fraction] 0.1 E9/L Normal 0.0-0.5 [facility] Comment on above: Order Comment: Order Added by Ham Expert. Performed By: #### 2 864270, 5948308, 2997703, 4929357, 39404858, 87973113 ####[address] [address] Lymphocytes/100 WBC (Bld) 14.5 % Normal 14.0-50.0 [facility] Comment on above: Order Comment: Order Added by Ham Expert. Performed By: #### 2 596275, 4977121, 5216306, 8733331, 88505715, 95972969 ####[address] [address] Lymphocytes/Leukocyte s Auto (Bld) [Pure # fraction] 2.1 E9/L Normal 1.0-4.0 [facility] Comment on above: Order Comment: Order Added by Ham Expert. Performed By: #### 2 813823, 9064754, 3454645, 0672009, 41929413, 43458968 ####[place] [address] [place] [address] Monocytes/100 WBC (Bld) 6.5 % Normal 4.0-14.0 [facility] Comment on above: Order Comment: Order Added by Discern Expert. Performed By: #### 2 376091, 3005813, 5518898, 0506014, 23489853, 03723732 ####[facility] [address] [place] [address] Monocytes/Leukocytes Auto (Bld) [Pure # fraction] 0.9 E9/L Normal 0.2-1.0 [facility] Comment on above: Order Comment: Order Added by Discern Expert. Performed By: #### 2 926540, 1358930, 3407811, 0604459, 28636809, 98543010 ####[facility] [address] [place] [address] Neutrophils/100 WBC (Bld) 78.0 % High 36.0-75.0 [facility] Comment on above: Order Comment: Order Added by Discern Expert. Performed By: #### 2 854782, 1854953, 5348766, 5662005, 41347992, 47165669 ####[facility] [address] [place] [address] Neutrophils/Leukocyte s Auto (Bld) [Pure # fraction] 11.4 E9/L High 2.0-7.5 [facility] Comment on above: Order Comment: Order Added by Discern Expert. Performed By: #### 2 687139, 0946480, 3909937, 1251671, 03265242, 89178085 ####[facility] [address] [place] [address] BMPon 07-26-2022 Creatinine [Mass/Vol] 0.8 mg/dL Normal 0.5-1.3 [facility] Comment on above: Performed By: #### 2 507387, 0031737, 9705589, 6874706, 71501576, 58398823 ####[facility] [address] [place] [address] Urea nitrogen [Mass/Vol] 11 mg/dL Normal 5-21 [facility] Comment on above: Performed By: #### 2 405179, 4204665, 4043245, 1792103, 17962935, 92539644 ####[facility] [address] [place] [address] Urea nitrogen/Creatinine [Mass ratio] 14 No Units Normal 10-20 [facility] Comment on above: Performed By: #### 2 996306, 4815527, 8474238, 2495663, 76062117, 42433892 ####[facility] [address] [place] [address] Anion gap [Moles/Vol] 13 mmol/L Normal 6-16 [facility] Comment on above: Performed By: #### 2 949654, 2916938, 4404166, 3400332, 63583898, 77866198 ####[facility] [address] [place] [address] Calcium [Mass/Vol] 9.3 mg/dL Normal 8.9-11.1 [facility] Comment on above: Performed By: #### 2 076250, 8982624, 7708113, 7961053, 90051824, 81645189 ####[facility] [address] [place] [address] Chloride [Moles/Vol] 101 mmol/L Normal 101-111 [facility] Comment on above: Performed By: #### 2 281556, 7768209, 1488418, 9027254, 77628805, 31348188 ####[facility] [address] [place] [address] CO2 [Moles/Vol] 27 mmol/L Normal 21-31 [facility] Comment on above: Performed By: #### 2 460386, 7963505, 2229885, 7875330, 96181483, 85642683 ####[facility] [address] [place] [address] Glucose [Mass/Vol] 88 mg/dL Normal 55-199 [facility] Comment on above: Result Comment: If t his glucose result represents a fasting glucose, interpretation should refer to the following reference range: 55-99 mg/dL Performed By: #### 2 907081, 1077908, 9857647, 0788383, 03287311, 63227646 ####[facility] [address] [place] [address] Potassium [Moles/Vol] 3.6 mmol/L Normal 3.5-5.3 [facility] Comment on above: Performed By: #### 2 720643, 1576310, 8157465, 3064208, 34541678, 47117561 ####[facility] [address] [place] [address] Sodium [Moles/Vol] 137 mmol/L Normal 135-145 [facility] Comment on above: Performed By: #### 2 939505, 7600007, 7943804, 0573575, 52801628, 23453720 ####[address] [address] CBC w/ Auto Diffon 3 Erythrocyte distribution width (RBC) [Ratio] 13.9 % Normal 10.9-14.2 [facility] Comment on above: Performed By: #### 2 475201, 7769071, 0300715, 6932032, 48069050, 53207024 ####[facility] [address] [place] [address] Hematocrit (Bld) [Volume fraction] 47.0 % High 34.0-46.0 [facility] Comment on above: Performed By: #### 2 765593, 0422740, 2354016, 9316696, 32741899, 50079624 ####[facility] [address] [place] [address] Hemoglobin (Bld) [Mass/Vol] 15.3 g/dL Normal 12.0-16.0 [facility] Comment on above: Performed By: #### 2 386387, 1211605, 9247299, 7899151, 21724985, 71428770 ####[facility] [address] [place] [address] MCH (RBC) [Entitic mass] 29.2 pg Normal 27.0-34.0 [facility] Comment on above: Performed By: #### 2 560641, 4325415, 3414343, 6766145, 14602351, 97168504 ####[address] [address] MCHC (RBC) [Mass/Vol] 32.7 g/dL Normal 31.4-36.0 [facility] Comment on above: Performed By: #### 2 413941, 1637401, 3048022, 4694405, 55311374, 03497371 ####[address] [address] MCV (RBC) [Entitic vol] 89.3 fL Normal 80.0-100.0 [facility] Comment on above: Performed By: #### 2 046031, 1858603, 5268630, 4872713, 21394390, 36132935 ####[address] [address] Platelet mean volume (Bld) [Entitic vol] 6.7 fL Normal 6.4-10.8 [facility] Comment on above: Performed By: #### 2 971489, 2900467, 9813840, 8132577, 36075015, 71958610 ####[address] [address] Platelets (Bld) [#/Vol] 324.0 E9/L Normal 150.0-500.0 [facility] Comment on above: Performed By: #### 2 995485, 4173900, 3128789, 1615285, 84609447, 79668212 ####[address] [address] RBC (Bld) [#/Vol] 5.3 E12/L Normal 4.3-5.9 [facility] Comment on above: Performed By: #### 2 861833, 6062284, 9378083, 0915700, 42002609, 15093690 ####[facility] [address] [place] [address] WBC corrected for nucl RBC Auto (Bld) [#/Vol] 14.6 E9/L High 4.0-11.0 [facility] Comment on above: Performed By: #### 2 173682, 9743417, 3305911, 4289696, 02437893, 61439518 ####[facility] [address] [place] [address] CHEMISTRYOrdered By: SYSTEM SYSTEM on 07-26-2022 Troponin [...] mg/dL Normal 1.3 - 2 .4 mg/dL [facility] Remisol Potassium [Moles/Vol] 3.6 mmol/L Normal 3.5 - 5.3 mmol/L [facility] Remisol Sodium [Moles/Vol] 137 mmol/L Normal 135 - 145 mmol/L [facility] Remisol Urea nitrogen [Mass/Vol] 11 mg/dL Normal 5 - 21 mg/dL [facility] Remisol Urea nitrogen/Creatinine [Mass ratio] 14 mg/mg Normal 10 - 20 [facility] Remisol CHEMISTRYOrdered By: Lab ROP User on 07-26-2022 Glucose [Mass/Vol] 106 mg/dL High 55 - 99 mg/dL [facility] POC Subsection Comment on above: Result Comment: Parker wills RN/ POC Device SN [id number] Invalid Interpretation Code [facility] POC Subsection POC User ID [id number] Invalid Interpretation Code [facility] POC Subsection POC Username SHANKAR ABARCA Invalid Interpretation Code [facility] POC Subsection CT Head or Brain w/o Contras ton 07-26-2022 CT Head or Brain w/o Contrast Normal [facility] Capillary Glucose POCon Glucose [Mass/Vol] 106 mg/dL High 55-99 [facility] Comment on above: Result Comment: Parker wills RN/ Performed By: #### 2 [id number] ####[facility] [address] [place] [address] Consent for Treatmenton Consent for Treatment [id number] 0CD:127 Normal [facility] ED Clinical Summaryon 2022 ED Clinical Summary Normal [facility] ED Note-Physicianon 07-27-19 ED Note-Physician Normal [facility] Comment on above: Result Comment: Elec tronically Signed By: Yaritza Cedeño PA-C\.br\Date and Time Signed: 07/26/22 14:17 EDT\.br\Electronically Co-Signed By: Lance Wu M.D.\.br\Date and Time Co-Signed: 07/26/22 15:36 EDT ED Patient Education Noteon 07-26-2022 ED Patient Education Note Normal [facility] ED Patient Summaryon 023 ED Patient Summary Normal [facility] HEMATOLOGYOrdered By: SYSTEM SYSTEM on 07-26-2022 [...] 14.6 E9/L High 4.0 - 11.0 E9/L [facility] HemeAutoSS Magnesiumon 07-26-2022 Magnesium [Mass/Vol] 2.0 mg/dL Normal 1.3-2.4 [facility] Comment on above: Performed By: #### 2 683018, 8227335, 8401029, 0663742, 82814620, 53083832 ####[facility] [address] [place] [address] Monitor Recordon 07-26-2022 Monitor Record [id number]:127 Normal [facility] Pre-Arrival Noteon 3 Pre-Arrival Note Normal [facility] Troponin 0 Hr.on 07-26-2022 Troponin I.cardiac [Mass/Vol] 6.60 pg/mL Low 10.10-27.10 [facility] Comment on above: Order Comment: pt st ill in imaging, will check back later [id number] 07/26/2022 12:32:06 EDT Result Comment: The 95% CI (Confidence Interval) PPV (Positive Predictive Value) for myocardial infarction in females is 38 pg/mL, in males 51 pg/mL. The results should be used in conjunction with clinical conditions of myocardial infarction.(Access High Sensitivity Troponin I Instructions For Use, Christy Larry, November 2017) Performed By: #### 2 226019, 8525705, 9559884, 6977862, 26838549, 22356104 ####[facility] [address] [place] [address] Troponin 3 Hr.on 07-26-2022 Troponin I.cardiac [Mass/Vol] 6.00 pg/mL Low 10.10-27.10 [facility] Comment on above: Result Comment: The 95% CI (Confidence Interval) PPV (Positive Predictive Value) for myocardial infarction in females is 38 pg/mL, in males 51 pg/mL. The results should be used in conjunction with clinical conditions of myocardial infarction.(Access High Sensitivity Troponin I Instructions For Use, [email or web address], November 2017) Performed By: #### 1 2498454 ####[address] [address] Troponin 6 Hr.on 07-26-2022 Troponin I.cardiac [Mass/Vol] 5.40 pg/mL Low 10.10-27.10 [facility] Comment on above: Result Comment: The 95% CI (Confidence Interval) PPV (Positive Predictive Value) for myocardial infarction in females is 38 pg/mL, in males 51 pg/mL. The results should be used in conjunction with clinical conditions of myocardial infarction.(Access High Sensitivity Troponin I Instructions For Use, [email or web address], November 2017) Performed By: #### 1 6520651 ####[address] [address] UA With Cult Reflexon 2022 Bacteria LM Ql (Urine sed) TRACE Normal Trace [facility] Comment on above: Performed By: #### 1 4883173 ####[address] [address] Bilirubin Ql (U) Negative Normal Negative [facility] Comment on above: Performed By: #### 1 3889071 ####[address] [address] Clarity (U) CLEAR Normal Clear [facility] Comment on above: Performed By: #### 1 5507851 ####[address] [address] Color (U) YELLOW Normal Yellow [facility] Comment on above: Performed By: #### 1 0188418 ####[facility] [address] [place] [address] Epithelial cells.squamous LM.HPF (Urine sed) [#/Area] 3-4 Normal 0-2 [facility] Comment on above: Performed By: #### 1 5917453 ####[address] [place] [address] Glucose Test strip (U) [Mass/Vol] Negative Normal Negative [facility] Comment on above: Performed By: #### 1 1511058 ####[address] [address] Hemoglobin Ql (U) Negative Normal Negative [facility] Comment on above: Performed By: #### 1 0040819 ####[address] [address] Ketones (U) [Mass/Vol] Negative Normal Negative [facility] Comment on above: Performed By: #### 1 9140398 ####[address] [address] [place].plasma/Lithiu m.RBC (Bld) [Mass ratio] 0-3 Normal 0-3 [facility] Comment on above: Performed By: #### 1 1609015 ####[address] [address] Nitrite Ql (U) Negative Normal Negative [facility] Comment on above: Performed By: #### 1 9814214 ####[address] [address] pH (U) 6.5 [pH] Invalid Interpretation Code 5.0-9.0 [facility] Comment on above: Performed By: #### 1 5803075 ####[address] [address] Protein (U) [Mass/Vol] Negative Normal Negative [facility] Comment on above: Performed By: #### 1 9179043 ####[address] [address] Specific gravity (U) [Rel density] <=1.005 Invalid Interpretation Code 1.005-1.030 [facility] Comment on above: Performed By: #### 1 2204407 ####[facility] [address] [place] [address] Type of Urine collection method Clean Catch Normal [facility] Comment on above: Performed By: #### 1 9866937 ####[facility] [address] [place] 5029857 Urobilinogen Qn (U) 0.2 {Malu'U}/dL Normal 0.0-1.0 [facility] Comment on above: Performed By: #### 1 1901730 ####[facility] [address] [place] [address] WBC Auto Ql (U) TRACE Abnormal Negative [facility] Comment on above: Performed By: #### 1 6005184 ####[place] [address] WBC LM.HPF (Urine sed) [#/Area] 0-5 Normal 0-5 [facility] Comment on above: Performed By: #### 1 3670560 ####[place] [address] URINALYSISOrdered By: Katerina Parker on 07-26-2022 Bacteria [...] PM) Normal Negative [facility] UA Auto SS [place].plasma/Lithiu m.RBC (Bld) [Mass ratio] 0-3 /HPF Normal [...] FT UA Auto SS Urobilinogen Qn (U) 0.8721317 {Malu'U}/dL Normal 0.0 - 1.0 EU/dL [facility] UA Auto SS WBC Auto Ql (U) Trace *ABN* (07/26/22 4:49 PM) Invalid Interpretation Code Negative [facility] UA Auto SS WBC LM.HPF (Urine sed) [#/Area] 0-5 /HPF Normal 0-5/HPF [facility] UA Auto SS XR Chest Single Viewon 07-26 XR Chest Single View Normal [facility] eGFRon 07-26-2022 GFR/1.73 sq M.predicted among blacks MDRD (S/P/Bld) [Vol rate/Area] mL/min/{1.73_m2} Normal >=59 [facility] Comment on above: Order Comment: Order added by Discern Expert. Result Comment: eGFR is race adjusted. AA=. Performed By: #### 2 507184, 1577141, 2162751, 7479113, 21563568, 33771959 ####[facility] [address] [place] [address] GFR/1.73 sq M.predicted among non-blacks MDRD (S/P/Bld) [Vol rate/Area] mL/min/{1.73_m2} Normal >=59 [facility] Comment on above: Order Comment: Order added by Discern Expert. Result Comment: [employer] Appl[employer] Salesperson gina kidney disease could be indicated at eGFR's of less than 60 mL/min/1.73m2. Kidney failure is indicated at less than 15 mL/min/1.73m2. Performed By: #### 2 898356, 5685312, 5538047, 1479245, 35607842, 31895083 ####[facility] [address] [place] [address] SURGICAL PATH REPORTon 07-25 SURGICAL PATH REPORT [facility] Department of Pathology [address] [place] [id number] Name: LEELEE CEDILLO : 1950 Merged [facility] [id number] Number: [facility] : n: Admit 71 years Attending ADELE FLEMING Age: Provider: Ordering ADELE FLEMING Provider: Consulti Surgical Pathology Report ng: ACCESSION: COLLECTED DATE/TIME: RECEIVED DATE/TIME: PATHOLOGIST: [id number] 07/24/2022 12:16 EDT 07/24/2022 12:16 EDT MICHELINE STERN MD Final Diagnosis Report for [facility] [place] RIGHT ANKLE, PUNCH BIOPSY: - FRAGMENT [...] MP:alexa 07/24/2022 Tissue pathology report for: [facility], [address] [place] [address]; ____ ____ Print 07/25/2022 15:48 EDT Number: Date/Time: [facility] Department of Pathology [address] [place], [place] [id number] [phone] Name: LEELEE CEDILLO : 1950 Financial [id number] Number: Gender Female [employer] [facility]WALDO : n: Admit 71 years Attending ADELE FLEMING Age: Provider: Ordering ADELE FLEMING Provider: Consulti Surgical Pathology Report ng: ACCESSION: COLLECTED DATE/TIME: RECEIVED DATE/TIME: PATHOLOGIST: [id number] 07/24/2022 12:16 EDT 07/24/2022 12:16 EDT LEENA RUFF, MICHELINE Gross Description PATHOLOGY SERVICES PROVIDED BY [employer] (CLIA #[id number]) in cooperation with [facility] at [address] [place] [address] ( CLIA #[id number]) Microscopic Diagnosis The final diagnosis is based on a microscopic exam of tax compliance representative sections. Codes CPT CODE: 84899 ____ ____ Print 07/25/2022 15:48 EDT Number: Date/Time: [facility] Comment on above: Performed By: #### 9 [id number] #### [facility] Laboratory Services [address] [place] [address] [employer] Distributor: Jared Oh MD POINT OF CARE GLUCOSEon 04-0 Glucose [Mass/Vol] 114 mg/dL Critically high 74-106 [facility] Comment on above: Performed By: #### P OCGLUC #### [facility] [address] [place] [address] [address] Salvador Yung Glucose [Mass/Vol] 112 mg/dL Critically high 74-106 [facility] Comment on above: Performed By: #### P OCGLUC #### [facility] [address] [place] [address] [address] Salvador Yung EMS Documentationon 07-21-19 EMS Documentation Normal [facility] Covid-19 PCR (CVDTBH)on 06-20 SARS-CoV-2 (COVID-19) RNA VIVIANA+probe Ql (Unsp spec) Not detected Normal NOT DETECTED [facility] Comment on above: Result Comment: This test is not yet approved or cleared by the [place] FDA. When there are no FDA-approved or cleared tests available, and other criteria are met, FDA can make tests available under an emergency access mechanism called an Emergency Use Authorization (EUA). The EUA for this test is supported by the Tools Developer of Health and Human Service's (HHS's) declaration [...] SARS-CoV-2. Performed By: #### C VDTBH #### [facility] [address] [place], [place] [address] Dr. Salvador Yung PROF CHEM 8 (BAS METB)on Anion gap [Moles/Vol] 12.0 mmol/L Normal [facility] Comment on above: Performed By: #### B MP #### [facility] [address] [place] [address] [address] Salvador Yung Calcium [Mass/Vol] 9.4 mg/dL Normal 8.5-10.1 [facility] Comment on above: Performed By: #### B MP #### [facility] [address] [place] [address] [address] Salvador Yung Chloride [Moles/Vol] 100 mmol/L Normal 98-107 [facility] Comment on above: Performed By: #### B MP #### [facility] [address] [place] [address] [address] Salvador Yung CO2 [Moles/Vol] 29.8 mmol/L Normal 21.0-32.0 [facility] Comment on above: Performed By: #### B MP #### [facility] [address] [place] [address] [address] Salvador Yung Creatinine [Mass/Vol] 0.91 mg/dL Normal 0.55-1.02 [facility] Comment on above: Performed By: #### B MP #### [facility] [address] [place] [address] [address] Salvador Yung EGFR-AF ECUADOREAN >60 Normal >=60 [facility] Comment on above: Performed By: #### B MP #### [facility] [address] [place] [address] [address] Salvador Yung EGFR-NON AF ECUADOREAN >60 Normal >=60 [facility] Comment on above: Performed By: #### B MP #### [facility] [address] [place] [address] [address] Salvador Yung Glucose [Mass/Vol] 82 mg/dL Normal 74-106 [facility] Comment on above: Performed By: #### B MP #### [facility] [address] [place] [address] [address] Salvador Yung Potassium [Moles/Vol] 3.8 mmol/L Normal 3.5-5.1 [facility] Comment on above: Performed By: #### B MP #### [facility] [address] [place] [address] [address] Salvador Yung Sodium [Moles/Vol] 138 mmol/L Normal 136-145 [facility] Comment on above: Performed By: #### B MP #### [facility] [address] [place] [address] [address] Salvador Yung Urea nitrogen [Mass/Vol] 12.0 mg/dL Normal 7.0-18.0 [facility] Comment on above: Performed By: #### B MP #### [facility] [address] [place] [address] [address] Salvador Yung Urea nitrogen/Creatinine [Mass ratio] 13.2 mg/mg Normal [facility] Comment on above: Performed By: #### B MP #### [facility] [address] [place] [address] [address] Salvador Yung VC INJ SCL JESSICA COMPUTER TECHNICAL SPECIALIST VEINSon 0 07-01-2022 VC INJ SCL JESSICA COMPUTER TECHNICAL SPECIALIST VEINS Patient: LEELEE CEDILLO Exam Date: 07/01/2022 : 1950 Gender:F Ordering : DR ALFRED UMAÑA M.D. Admission #: [id number] Family : Order #: [id number] CLICK HERE TO VIEW EXAM RADIOLOGY REPORT [...] Lobato M.D. on 07/01/2022 at 15:22 Normal [facility] VC CONSULT FOLLOWUPon 2022 VC CONSULT FOLLOWUP Patient: ITZEL CEDILLO Exam Date: 06/19/2022 : 1950 Gender:F Ordering : DR ALFRED UMAÑA M.D. Admission #: [id number] Family : Order #: [id number] CLICK HERE TO VIEW EXAM RADIOLOGY REPORT [...] Umaña MD on 06/19/2022 at 14:17 Normal [facility] VC EXT VENOUS LT LIMITEDon 0 06-19-2022 VC EXT VENOUS LT LIMITED Patient: LEELEE CEDILLO Exam Date: 06/19/2022 : 1950 Gender:F Ordering : DR ALFRED UMAÑA M.D. Admission #: [id number] Family : Order #: [id number] CLICK HERE TO VIEW EXAM RADIOLOGY REPORT [...] Umaña MD on 06/19/2022 at 14:15 Normal [facility] VC INJ FOAM SCLERO W US MLTI on 06-13-2022 VC INJ FOAM SCLERO W US MLTI Patient: LEELEE CEDILLO Exam Date: 06/13/2022 : 1950 Gender:F Ordering : DR ALFRED UMAÑA M.D. Admission #: [id number] Family : Order #: [id number] CLICK HERE TO VIEW EXAM RADIOLOGY REPORT [...] duple (more content not included)... Normal [facility] VC CONSULT FOLLOWUPon 2022 VC CONSULT FOLLOWUP Patient: ITZEL CEDILLO Exam Date: 06/10/2022 : 1950 Gender:F Ordering : DR ALFRED UMAÑA M.D. Admission #: [id number] Family : Order #: [id number] CLICK HERE TO VIEW EXAM RADIOLOGY REPORT [...] Lobato M.D. on 06/10/2022 at 12:36 Normal [facility] VC EXT VENOUS RT LIMITEDon 0 06-10-2022 VC EXT VENOUS RT LIMITED Patient: LEELEE CEDILLO Exam Date: 06/10/2022 : 1950 Gender:F Ordering : DR ALFRED UMAÑA M.D. Admission #: [id number] Family : Order #: [id number] CLICK HERE TO VIEW EXAM RADIOLOGY REPORT [...] Lobato M.D. on 06/10/2022 at 12:33 Normal [facility] VC INJ FOAM SCLERO W US MLTI on 06-03-2022 VC INJ FOAM SCLERO W US MLTI Patient: LEELEE CEDILLO Exam Date: 06/03/2022 : 1950 Gender:F Ordering : DR ALFRED UMAÑA M.D. Admission #: [id number] Family : Order #: [id number] CLICK HERE TO VIEW EXAM RADIOLOGY REPORT PROCEDURE: VEIN CENTER INJECTION FOAM SCLEROSING SOLUTION WITH ULTRASOUND MULTIPLE VEINS COMPARISON: None. Pre-operative Diagnosis: CEAP class C6 venous insufficiency with pain, tenderness, edema and incompetent right small saphenous vein and knockup worker vein, incompetent varicose veins, venous insufficiency right leg secondary to venous incompetence Post-operative Diagnosis: CEAP class C6 venous insufficiency with pain, tenderness, edema and incompetent right small saphenous vein and knockup worker vein, incompetent varicose veins, venous insufficiency right [...] l (more content not included)... Normal [facility] VC CONSULT FOLLOWUPon 2022 VC CONSULT FOLLOWUP Patient: ITZEL CEDILLO Exam Date: 05/28/2022 : 1950 Gender:F Ordering : DR ALFRED UMAÑA M.D. Admission #: [id number] Family : Order #: [id number] CLICK HERE TO VIEW EXAM RADIOLOGY REPORT [...] Umaña MD on 05/28/2022 at 11:44 Normal [facility] VC EXT VENOUS RT LIMITEDon 0 05-28-2022 VC EXT VENOUS RT LIMITED Patient: LEELEE CEDILLO Exam Date: 05/28/2022 : 1950 Gender:F Ordering : DR ALFRED UMAÑA M.D. Admission #: [id number] Family : Order #: [id number] CLICK HERE TO VIEW EXAM RADIOLOGY REPORT [...] extends to distal lower leg. Thrombus in knockup worker distal medial lower leg 2.8 mm from [...] MD on 05/28/2022 at 11:30 Normal [facility] CBC AUTO DIFFon 05-21-2022 BASO # 0.1 103/ul Normal 0.0-0.1 [facility] Comment on above: Performed By: #### C BC #### [facility] [address] [place] [address] [address] Salvador Yung Basophils/100 WBC (Bld) 0.6 % Normal 0.2-2.0 [facility] Comment on above: Performed By: #### C BC #### [facility] [address] [place] [address] Dr. Salvador Yung EO # 0.1 103/ul Normal 0.0-0.7 [facility] Comment on above: Performed By: #### C BC #### [facility] [address] [place] [address] Dr. Salvador Yung Eosinophils/100 WBC (Bld) 0.6 % Critically low 0.9-7.0 [facility] Comment on above: Performed By: #### C BC #### [facility] [address] [place] [address] Dr. Salvador Yung Erythrocyte distribution width (RBC) [Ratio] 12.4 % Normal 11.0-15.0 [facility] Comment on above: Performed By: #### C BC #### [facility] [address] [place] [address] Dr. Salvador Yung Hematocrit (Bld) [Volume fraction] 43.1 % Normal 36.0-48.0 [facility] Comment on above: Performed By: #### C BC #### [facility] [address] [place] [address] Dr. Salvador Yung Hemoglobin (Bld) [Mass/Vol] 13.8 g/dL Normal 12.0-16.0 [facility] Comment on above: Performed By: #### C BC #### [facility] [address] [place] [address] Dr. Salvador Yung IG # 0.06 10e3/ul Critically high 0.00-0.[address] [facility] Comment on above: Performed By: #### C BC #### [facility] [address] [place] [address] Dr. Salvador Yung IG % 0.7 % Critically high 0.0-0.5 [facility] Comment on above: Performed By: #### C BC #### [facility] [address] [place] [address] Dr. Salvador Yung LYMPH # 1.7 103/ul Normal 1.2-3.8 [facility] Comment on above: Performed By: #### C BC #### [facility] [address] [place] [address] Dr. Salvador Yung Lymphocytes/100 WBC (Bld) 20.2 % Critically low 20.5-60.0 [facility] Comment on above: Performed By: #### C BC #### [facility] [address] [place] [address] Dr. Salvador Yung MANUAL DIFF REQ NO Normal [facility] Comment on above: Performed By: #### C BC #### [facility] [address] [place] [address] Dr. Salvador Yung MCH (RBC) [Entitic mass] 30.1 pg Normal 26.7-34.0 [facility] Comment on above: Performed By: #### C BC #### [facility] [address] [place] [address] Dr. Salvador Yung MCHC (RBC) [Mass/Vol] 32.0 g/dL Normal 29.9-35.2 [facility] Comment on above: Performed By: #### C BC #### [facility] [address] [place] [address] Dr. Salvador Yung MCV (RBC) [Entitic vol] 93.9 fL Normal 81.0-99.0 [facility] Comment on above: Performed By: #### C BC #### [facility] [address] [place] [address] Dr. Salvador Yung MONO # 0.5 103/ul Normal 0.3-0.8 [facility] Comment on above: Performed By: #### C BC #### [facility] [address] [place] [address] Dr. Salvador Yung Monocytes/100 WBC (Bld) 6.1 % Normal 1.7-12.0 [facility] Comment on above: Performed By: #### C BC #### [facility] [address] [place] [address] Dr. Salvador Yung NEUT # 6.1 103/ul Normal 1.4-6.5 [facility] Comment on above: Performed By: #### C BC #### [facility] [address] [place] [address] Dr. Salvador Yung Neutrophils/100 WBC (Bld) 71.8 % Normal 43.0-75.0 [facility] Comment on above: Performed By: #### C BC #### [facility] [address] [place] [address] Dr. Salvador Yung Platelet mean volume (Bld) [Entitic vol] 8.2 fL Critically low 9.5-13.5 [facility] Comment on above: Performed By: #### C BC #### [facility] [address] [place] [address] Dr. Salvador Yung PLT 246 103/ul Normal 150-450 [facility] Comment on above: Performed By: #### C BC #### [facility] [address] [place] [address] Dr. Salvador Yung RBC 4.59 106/ul Normal 4.20-5.40 [facility] Comment on above: Performed By: #### C BC #### [facility] [address] [place] [address] Dr. Salvador Yung WBC 8.5 103/ul Normal 4.0-11.0 [facility] Comment on above: Performed By: #### C BC #### [facility] [address] [place] [address] Dr. Salvador Yung FREE T3on 05-21-2022 FREE T3 2.14 pg/mlL Critically low 2.18-3.98 [facility] Comment on above: Performed By: #### P OCGLUC #### [facility] [address] [address] [address] Salvador Yung GLYCOHEMOGLOBIN A1Con 2022 ADA RECOMMENDATION SEE BELOW Normal [facility] Comment on above: Result Comment: ADA RECOMMENDED LIMIT 4.0 - 6.0 ADA THERAPEUTIC TARGET < 7.0 ACTION SUGGESTED > 7.0 Performed By: #### P OCGLUC #### [facility] [address] [address] [address] Salvador Yung Glucose [Mass/Vol] 100 mg/dL Normal [facility] Comment on above: Performed By: #### P OCGLUC #### [facility] [address] [place] [address] Dr. Salvador Yung HbA1c (Bld) [Mass fraction] 5.1 % Normal 4.5-6.2 [facility] Comment on above: Performed By: #### P OCGLUC #### [facility] [address] [place] [address] Dr. Salvador Yung LIPID PROFILEon 05-21-2022 CHOL-HDL RATIO NORM SEE BELOW Normal [facility] Comment on above: Result Comment: 3.3 - 4.4 LOW RISK 4.4 - 7.1 AVERAGE RISK 7.1 - 11.0 MODERATE RISK >11.0 HIGH RISK Performed By: #### P OCGLUC #### [facility] [address] [address] [address] Salvador Yung Cholesterol [Mass/Vol] 164 mg/dL Normal <=200 [facility] Comment on above: Performed By: #### P OCGLUC #### [facility] [address] [address] [address] Salvador Yung Cholesterol in HDL [Mass/Vol] 61 mg/dL Critically high 40-60 [facility] Comment on above: Performed By: #### P OCGLUC #### [facility] [address] [address] [address] Salvador Yung Cholesterol in LDL [Mass/Vol] 90.2 mg/dL Normal [facility] Comment on above: Performed By: #### P OCGLUC #### [facility] [address] [address] [address] Salvador Yung Cholesterol.total/Cho lesterol in HDL [Mass ratio] 2.7 {ratio} Normal [facility] Comment on above: Performed By: #### P OCGLUC #### [facility] [address] [address] [address] Salvador Yung HDL NORMAL > or = 60 mg/dl - LO W CARDIOVASCULAR RISK <40 mg/dl - HIGH CARDIOVASCULAR RISK Normal [facility] Comment on above: Performed By: #### P OCGLUC #### [facility] [address] [address] [address] Salvador Yung LDL CALC NORMAL SEE BELOW Normal [facility] Comment on above: Result Comment: <100 mg/dl OPTIMAL 100 - 129 mg/dl NEAR OR ABOVE OPTIMAL 130 - 159 mg/dl BORDERLINE HIGH 160 - 189 mg/dl HIGH >190 mg/dl VERY HIGH Performed By: #### P OCGLUC #### [facility] [address] [address] [address] Salvador Yung Triglyceride [Mass/Vol] 64 mg/dL Normal <=150 [facility] Comment on above: Performed By: #### P OCGLUC #### [facility] [address] [address] [address] Salvador Yung VLDL CALC 12.8 mg/dL Normal [facility] Comment on above: Performed By: #### P OCGLUC #### [facility] [address] [address] [address] Salvador Yung PROF 14(COMP METB)on 023 Albumin [Mass/Vol] 3.2 g/dL Critically low 3.4-5.[address] [facility] Comment on above: Performed By: #### P OCGLUC #### [facility] [address] [place] [address] Dr. Salvador Yung Albumin/Globulin [Mass ratio] 0.7 {ratio} Normal [facility] Comment on above: Performed By: #### P OCGLUC #### [facility] [address] [address] [address] Salvador Yung ALP [Catalytic activity/Vol] 68 U/L Normal 46-116 [facility] Comment on above: Performed By: #### P OCGLUC #### [facility] [address] [place] [address] Dr. Salvador Yung ALT [Catalytic activity/Vol] 25 U/L Normal 14-59 [facility] Comment on above: Performed By: #### P OCGLUC #### [facility] [address] [address] [address] Salvador Yung Anion gap [Moles/Vol] 11.8 mmol/L Normal [facility] Comment on above: Performed By: #### P OCGLUC #### [facility] [address] [place] [address] Dr. Salvador Yung AST [Catalytic activity/Vol] 20 U/L Normal 15-37 [facility] Comment on above: Performed By: #### P OCGLUC #### [facility] [address] [address] [address] Salvador Yung Bilirubin [Mass/Vol] 0.5 mg/dL Normal 0.2-1.0 [facility] Comment on above: Performed By: #### P OCGLUC #### [facility] [address] [place] [address] Dr. Salvador Yung Calcium [Mass/Vol] 8.9 mg/dL Normal 8.5-10.1 [facility] Comment on above: Performed By: #### P OCGLUC #### [facility] [address] [place] [address] Dr. Salvador Yung Chloride [Moles/Vol] 105 mmol/L Normal 98-107 [facility] Comment on above: Performed By: #### P OCGLUC #### [facility] [address] [place] [address] Dr. Salvador Yung CO2 [Moles/Vol] 29.9 mmol/L Normal 21.0-32.0 [facility] Comment on above: Performed By: #### P OCGLUC #### [facility] [address] [place] [address] Dr. Salvador Yung Creatinine [Mass/Vol] 0.74 mg/dL Normal 0.55-1.02 [facility] Comment on above: Performed By: #### P OCGLUC #### [facility] [address] [address] [address] Salvador Yung EGFR-AF [place]UADOREAN >60 Normal >=60 [facility] Comment on above: Performed By: #### P OCGLUC #### [facility] [address] [address] [address] Salvador Yung EGFR-NON AF [place]UADOREAN >60 Normal >=60 [facility] Comment on above: Performed By: #### P OCGLUC #### [facility] [address] [address] [address] Salvador Yung Globulin (S) [Mass/Vol] 4.3 g/dL Normal [facility] Comment on above: Performed By: #### P OCGLUC #### [facility] [address] [place] [address] Dr. Salvador Yung Glucose [Mass/Vol] 88 mg/dL Normal 74-106 [facility] Comment on above: Performed By: #### P OCGLUC #### [facility] [address] [address] [address] Salvador Yung Potassium [Moles/Vol] 3.7 mmol/L Normal 3.5-5.1 [facility] Comment on above: Performed By: #### P OCGLUC #### [facility] [address] [address] [address] Salvador Yung Protein [Mass/Vol] 7.5 g/dL Normal 6.4-8.2 [facility] Comment on above: Performed By: #### P OCGLUC #### [facility] [address] [address] [address] Salvador Yung Sodium [Moles/Vol] 143 mmol/L Normal 136-145 [facility] Comment on above: Performed By: #### P OCGLUC #### [facility] [address] [address] [address] Salvador Yung Urea nitrogen [Mass/Vol] 11.0 mg/dL Normal 7.0-18.0 [facility] Comment on above: Performed By: #### P OCGLUC #### [facility] [address] [address] [address] Salvador Yung Urea nitrogen/Creatinine [Mass ratio] 14.9 mg/mg Normal [facility] Comment on above: Performed By: #### P OCGLUC #### [facility] [address] [place] [address] Dr. Salvador Yung T4on 05-21-2022 T4 [Mass/Vol] 11.60 ug/dL Normal 4.80-13.90 [facility] Comment on above: Performed By: #### P OCGLUC #### [facility] [address] [place] [address] Dr. Salvador Yung TSHon 05-21-2022 TSH 0.165 uIU/mL Critically low 0.358-3.[address] [facility] Comment on above: Performed By: #### P OCGLUC #### [facility] [address] [place] [address] Dr. Salvador Yung VC ENDOVENOUS ABL 1ST V RTon 05-21-2022 VC ENDOVENOUS ABL 1ST V RT Patient: LEELEE CEDILLO Exam Date: 05/21/2022 : 1950 Gender:F Ordering : DR ALFRED UMAÑA M.D. Admission #: [id number] Family : Order #: [id number] CLICK HERE TO VIEW EXAM RADIOLOGY REPORT [...] MD on 05/21/2022 at 13:51 Normal [facility] VITAMIN D 25 OHon 05-21-2022 VIT D 25-OH 25.1 ng/mL Normal [facility] Comment on above: Performed By: #### V ITAD #### [facility] [address] [place], [place] [address] Dr. Salvador Yung VIT D RANGES SEE BELOW Normal [facility] Comment on above: Result Comment: <20 ng/mL Vit D deficient 20 - <30 ng/mL Vit D insufficient 30 - 100 ng/mL Vit D sufficient >100 ng/mL Potential Toxicity Performed By: #### V ITAD #### [facility] [address] [address] [address] Salvador Yung XR HIP LT 2 [...] MARI LORENZO Date: 2022-05-21 16:26 Normal [facility] VC COMP CONSULTATIONon 05-01 VC COMP CONSULTATION Patient: REAGAN CEDILLO Exam Date: 05/01/2022 : 1950 Gender:F Ordering : DR. ADELE FLEMING D.P.MKimberlee Admission #: [id number] Family : Order #: [id number] CLICK HERE [...] small saphenous vein, right lower extremity incompetent knockup worker veins, and bilateral lower extremity incompetent branch [...] arterial disease 5. CEAP: C6, EC, AP, IN PLAN: 1. Continued use of compression stockings 2. Elevated legs and increased physical activity symptomatic relief 3. Endovenous laser ablation of right small saphenous vein and knockup worker vein. 4. Microfoam chemical ablation of dilated, [...] Lobato M.D. on 05/01/2022 at 15:27 Normal [facility] VC VENOUS REFLUX SAMI LMTon 0 05-01-2022 VC VENOUS REFLUX SAMI LMT Patient: LEELEE CEDILLO Exam Date: 05/01/2022 : 1950 Gender:F Ordering : DR. ADELE FLEMING D.P.M. Admission #: [id number] Family : DR ALFRED UMAÑA M.D. Order #: [id number] CLICK HERE TO VIEW EXAM RADIOLOGY REPORT [...] chronic thrombus visualized Compressibility: Normal Flow: Normal [employer]: Dist/med calf 2.6mm with 0s reflux. Mid/med calf 3.5mm with 0s reflux. Tech Note: GSV has been previously stripped. Patent varicose vein mid/med calf 2.3mm with 0.5s reflux. Patent varicose vein prox/med calf 3.4mm with 1.2s reflux. Patent varicose vein dist/med thigh 5.4mm with 0.8s reflux. CONCLUSION: 1. Dilated, incompetent right small saphenous vein. 2. 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 3. Consultation for endovenous laser ablation is recommended. Dictated by: Julio Lobato M.D. on 05/01/2022 at 14:06 Approved by: Julio Lobato M.D. on 05/01/2022 at 14:28 Normal [facility] Coding Summary.on 03-11-2022 Coding Summary. Normal [facility] ED Traumaon 03-09-2022 ED Trauma [id number]#1. 00CD:127 Normal [facility] Consent for Procedure/Surger yon 03-08-2022 Consent for Procedure/Surgery [id number]#1. 00CD:127 Normal [facility] Consent for Treatmenton 02-18 Consent for Treatment [id number] 0CD:127 Normal [facility] Discharge Instructionson Discharge Instructions [id number]#1. 00CD:127 Normal [facility] ED Clinical Summaryon 2021 ED Clinical Summary Normal [facility] ED Note-Physicianon 03-08-20 ED Note-Physician Normal [facility] Comment on above: Result Comment: Elec tronically Signed By: Wm Nagy DO.br\Date and Time Signed: 03/08/22 21:11 EST ED Patient Education Noteon 03-08-2022 ED Patient Education Note Normal [facility] ED Patient Summaryon 022 ED Patient Summary Normal [facility] EMS Documentationon 03-08-20 EMS Documentation Normal [facility] EMS Documentation Normal [facility] Monitor Recordon 03-08-2022 Monitor Record [id number]#1. 00CD:127 Normal [facility] Monitor Record [id number]#1. 00CD:127 Normal [facility] Pre-Arrival Noteon Pre-Arrival Note Normal [facility] Respiratory Therapy Noteson 03-08-2022 Respiratory Therapy Notes conscious sedation on Eaton, Leelee. Used co2 monitor and one liter of 02. patient maintained 38 co2 and 99 O2. Last approx 40 min. Normal [facility] XR Hip 2-3 Views Left + Pelv yasir 03-08-2022 XR Hip 2-3 Views Left + Pelvis Normal [facility] XR Hip 2-3 Views Left + Pelvis Normal [facility] BLEEDING TIMEon 03-06-2022 BLEEDING TIME 10.5 min Critically high 1.0-8.0 [facility] Comment on above: Performed By: #### B LTM #### [facility] [address] [place] [address] Dr. Salvador Yung CBC AUTO DIFFon 03-06-2022 BASO # 0.1 103/ul Normal 0.0-0.1 [facility] Comment on above: Performed By: #### C BC #### [facility] [address] [address] [address] Salvador Yung Basophils/100 WBC (Bld) 0.7 % Normal 0.2-2.0 [facility] Comment on above: Performed By: #### C BC #### [facility] [address] [address] [address] Salvador Yung EO # 0.1 103/ul Normal 0.0-0.7 [facility] Comment on above: Performed By: #### C BC #### [facility] [address] [address] [address] Salvador Yung Eosinophils/100 WBC (Bld) 0.7 % Critically low 0.9-7.0 [facility] Comment on above: Performed By: #### C BC #### [facility] [address] [place] [address] Dr. Salvador Yung Erythrocyte distribution width (RBC) [Ratio] 12.9 % Normal 11.0-15.0 [facility] Comment on above: Performed By: #### C BC #### [facility] [address] [place] [address] Dr. Salvador Yung Hematocrit (Bld) [Volume fraction] 41.3 % Normal 36.0-48.0 [facility] Comment on above: Performed By: #### C BC #### [facility] [address] [place] [address] Dr. Salvador Yung Hemoglobin (Bld) [Mass/Vol] 13.7 g/dL Normal 12.0-16.0 [facility] Comment on above: Performed By: #### C BC #### [facility] [address] [place] [address] Dr. Salvador Yung IG # 0.05 10e3/ul Critically high 0.00-0.[address] [facility] Comment on above: Performed By: #### C BC #### [facility] [address] [place] [address] Dr. Salvador Yung IG % 0.7 % Critically high 0.0-0.5 [facility] Comment on above: Performed By: #### C BC #### [facility] [address] [place] [address] Dr. Salvador Yung LYMPH # 1.4 103/ul Normal 1.2-3.8 [facility] Comment on above: Performed By: #### C BC #### [facility] [address] [place] [address] Dr. Salvador Yung Lymphocytes/100 WBC (Bld) 18.9 % Critically low 20.5-60.0 [facility] Comment on above: Performed By: #### C BC #### [facility] [address] [place] [address] Dr. Salvador Yung MANUAL DIFF REQ NO Normal [facility] Comment on above: Performed By: #### C BC #### [facility] [address] [place] [address] Dr. Salvador Yung MCH (RBC) [Entitic mass] 30.3 pg Normal 26.7-34.0 [facility] Comment on above: Performed By: #### C BC #### [facility] [address] [place] [address] Dr. Salvador Yung MCHC (RBC) [Mass/Vol] 33.2 g/dL Normal 29.9-35.2 [facility] Comment on above: Performed By: #### C BC #### [facility] [address] [place] [address] Dr. Salvador Yung MCV (RBC) [Entitic vol] 91.4 fL Normal 81.0-99.0 [facility] Comment on above: Performed By: #### C BC #### [facility] [address] [place] [address] Dr. Salvador Yung MONO # 0.7 103/ul Normal 0.3-0.8 [facility] Comment on above: Performed By: #### C BC #### [facility] [address] [place] [address] Dr. Salvador Yung Monocytes/100 WBC (Bld) 9.9 % Normal 1.7-12.0 [facility] Comment on above: Performed By: #### C BC #### [facility] [address] [address] [address] Salvador Yung NEUT # 5.2 103/ul Normal 1.4-6.5 [facility] Comment on above: Performed By: #### C BC #### [facility] [address] [address] [address] Salvador Yung Neutrophils/100 WBC (Bld) 69.1 % Normal 43.0-75.0 [facility] Comment on above: Performed By: #### C BC #### [facility] [address] [place] [address] Dr. Salvador Yung Platelet mean volume (Bld) [Entitic vol] 7.9 fL Critically low 9.5-13.5 [facility] Comment on above: Performed By: #### C BC #### [facility] [address] [place] [address] Dr. Salvador Yung PLT 223 103/ul Normal 150-450 [facility] Comment on above: Performed By: #### C BC #### [facility] [address] [place] [address] Dr. Salvador Yung RBC 4.52 106/ul Normal 4.20-5.40 [facility] Comment on above: Performed By: #### C BC #### [facility] [address] [place] [address] Dr. Salvador Yung WBC 7.5 103/ul Normal 4.0-11.0 [facility] Comment on above: Performed By: #### C BC #### [facility] [address] [place] [address] Dr. Salvador Yung IRONon 03-06-2022 Iron [Mass/Vol] 83.0 ug/dL Normal 50.0-170.0 [facility] Comment on above: Performed By: #### I ESTEFANY #### [facility] [address] [place] [address] Dr. Salvador Yung PROTIMEon 03-06-2022 INR Coag (PPP) [Relative time] 0.95 {INR} Normal [facility] Comment on above: Performed By: #### P TT, PT #### [facility] [address] [address] [address] Salvador Yung INR GUIDELINES SEE BELOW Normal [facility] Comment on above: Result Comment: YOJANA RED INR: 2.0 - 3.0 CONDITIONS NOT LISTED BELOW 2.5 - 3.5 FOR PROSTHETIC HEART VALVE REPLACEMENT 2.5 - 3.5 RECURRENT THROMBOSIS Performed By: #### P TT, PT #### [facility] [address] [address] [address] Salvador Yung PT Coag (PPP) [Time] 10.3 s Normal 9.0-11.6 [facility] Comment on above: Performed By: #### P TT, PT #### [facility] [address] [address] [address] Salvador Yung PTTon 03-06-2022 aPTT Coag (Bld) [Time] 22.1 s Critically low 22.3-36.2 [facility] Comment on above: Performed By: #### P TT, PT #### [facility] [address] [address] [address] Salvador Yung SCREENING MAMMOGRAM W/DANIEL, BILATERAL*on [...] IS VERY IMPORTANT TO YOUR HEALTH. CURRENT [place] [employer] GUIDELINES RECOMMENDS ANNUAL MAMMOGRAPHY BEGINNING AT AGE 41. THIS FACILITY USUALLY USES A REMINDER SYSTEM TO ENSURE ALL POSITIONS RECEIVED REMINDER NOTIFICATIONS AT THE TIME BASED ON THE RECOMMENDATIONS OF THIS EXAM. Report reported and signed by Julio Martines on 02/28/2022 1602 Normal [facility] Covid-19 PCR (CVDTBH)on 12-19 SARS-CoV-2 (COVID-19) RNA VIVIANA+probe Ql (Unsp spec) Not detected Normal NOT DETECTED [facility] Comment on above: Result Comment: This test is not yet approved or cleared by the [place] FDA. When there are no FDA-approved or cleared tests available, and other criteria are met, FDA can make tests available under an emergency access mechanism called an Emergency Use Authorization (EUA). The EUA for this test is supported by the [place] of Health and Human Service's (HHS's) declaration [...] SARS-CoV-2. Performed By: #### P OCGLUC #### [facility] [address] [place] [address] Dr. Salvador Yung MRI [facility] CONon 12-10- 22 MRI [facility] CON HISTORY: Chronic low back pain with left leg pain. Prior low back surgery. Lumbar disc disease. MRI [facility] CON: 12/09/2021 10:11 AM EDT COMPARISON: MRI [...] SARA LAUREN Date: 2021-12-10 12:11 Normal [facility] COVID-19 Positive/Negativeon 05-04-2020 COVID-19 Positive/Negative Negative Negative [facility] Comment on above: Testing for SARS-CoV -2 by RT-PCRThis test was developed and its performance characteristics determined by [employer] ([employer]) and validated at the [facility]. This test has not been FDA cleared [...] 04-24-2020 MCHC (RBC) [Mass/Vol] 33.2 g/dL 32.0-35.0 [facility] Automated erythrocyte mean c orpuscular volumeon 04-24-2020 [...] 04-24-2020 RBC (Bld) [#/Vol] 4.50 10*6/uL 3.60-5.00 [facility] Blood hemoglobin measurement (mass/volume)on 04-24-2020 Hemoglobin (Bld) [Mass/Vol] 12.5 g/dL 11.8-15.4 [facility] Blood leukocytes automated c ount (number/volume)on 04-24-2020 WBC (Bld) [#/Vol] 5.7 10*3/uL 3.8-11.6 [facility] Blood neutrophil count by au tomated [...] (mass/volume)on 04-24-2020 Calcium [Mass/Vol] 9.3 mg/dL 8.2-10.2 [facility] Serum or plasma chloride vikki surement (moles/volume)on 04-24-2020 Chloride [Moles/Vol] 101 mmol/L 95-114 [facility] Serum or plasma creatinine m easurement with calculation of estimated glomerular filtron 04-24-2020 Creatinine [Mass/Vol] 0.88 mg/dL 0.44-1.03 [facility] Serum or plasma glucose kelly urement (mass/volume)on 04-24-2020 Glucose [Mass/Vol] 116 mg/dL 70-100 [facility] Comment on above: ADA recommended refe rence rangeRandom Glucose Reference Range is dependent on time and content of last meal. Glucose of more than 200 mg/dL in a nonstressed, ambulatory subject supports the diagnosis of Diabetes Mellitus. Serum or plasma potassium me asurement (moles/volume)on 04-24-2020 Potassium [Moles/Vol] 3.8 mmol/L 3.5-5.1 [facility] Serum or plasma sodium measu rement (moles/volume)on 04-24-2020 Sodium [Moles/Vol] 136 mmol/L 136-146 [facility] Serum or plasma total carbon dioxide measurement (moles/volume)on 04-24-2020 CO2 [Moles/Vol] 23.1 mmol/L 22.0-30.0 [facility] Serum or plasma urea nitroge n measurement (mass/volume)on 04-24-2020 Urea nitrogen [Mass/Vol] 10 mg/dL 9-23 [facility] Specific gravity of Urine by Automated test stripon 04-24-2020 Specific gravity (U) [Rel density] 1.007 1.001-1.030 [facility] Squamous [...] Auto Ql (U) None seen None Seen [facility] Urine clarity by refractomet ry automatedon [...] Bilirubin Ql (U) Negative Negative [facility] Urine urobilinogen measureme nt by automated test strip (mass/volume)on 04-24-2020 Urobilinogen (U) [Mass/Vol] Normal mg/dL Normal [facility] CT L-SPINE WO CONTRASTon CT L-SPINE WO CONTRAST Patient Name: LEELEE CEDILLO STUDY: CT L-SPINE WO CONTRAST;; 10/13/2018 12:05 pm INDICATION: Low back pain LUMBAGO. COMPARISON: None. ACCESSION NUMBER(S): [id number] ORDERING CLINICIAN: HAMLET GILMAN TECHNIQUE: Axial sections [...] combination with facet joint arthropathy noted causing [id number] left neural foramina narrowing. Transpedicular screws of [...] left lateral recess, left neural foramina and [id number] right neural foramina narrowing. IMPRESSION: Postoperative and [...] Electronically signed by: PATRICIA MURRAY MD [facility] SPINE, ENTIRE THORACIC/LUMBA R, INCLUDE SKULL, [...] pm INDICATION: LUMBAGO. COMPARISON: None ACCESSION NUMBER(S): [id number]; [id number] ORDERING CLINICIAN: HAMLET GILMAN FINDINGS: Long radiograph [...] Electronically signed by: ADELE BA MD [facility] SPINE, LUMBOSACRAL; CMPLT(BE NDING)on 10-13-2018 SPINE, LUMBOSACRAL; CMPLT(BENDING) Patient Name: LEELEE CEDILLO STUDY: SPINE, ENTIRE THORACIC/LUMBAR, INCLUDE SKULL, CERVICAL ANSD SACRAL SPINE WHEN PERFORMED 2 OR 3 VIEW; SPINE, LUMBOSACRAL CMPLT(BENDING); 10/13/2018 12:05 pm INDICATION: LUMBAGO. COMPARISON: None ACCESSION NUMBER(S): [id number]; [id number] ORDERING CLINICIAN: HAMLET GILMAN FINDINGS: Long radiograph [...] acuity. Electronically signed by: ADELE BA MD [facility] Vital Signs Date Time Vital Sign Value Performing Clinician Facility 08-07-2023 11:44-0400 Diastolic blood pressure 86 mm[Hg] MD Sara Vick Work Phone: [facility] 08-07-2023 11:44-0400 Heart rate 67 /min MD Sara Vick Work Phone: [facility] 08-07-2023 11:44-0400 SaO2% (BldA) [Mass fraction] 99 % MD Sara Vick Work Phone: [facility] 08-07-2023 11:44-0400 Systolic blood pressure 132 mm[Hg] MD Sara Vick Work Phone: [facility] 07-01-2023 10:26-0400 Body height 172.72 cm MD Sara Vick Work Phone: [facility] 07-01-2023 10:26-0400 Body mass index (BMI) [Ratio] 29.5 kg/m2 MD Sara Vick Work Phone: [facility] 07-01-2023 [id number] Body temperature 97.2 [degF] MD Sara Vick Work Phone: [facility] 07-01-2023 10:26-040 Body weight 87.99 kg MD Sara Vick Work Phone: [facility] 07-01-2023 10:26-0400 Diastolic blood pressure 78 mm[Hg] MD Sara Vick Work Phone: [facility] 07-01-2023 10:26-0400 Heart rate 78 /min MD Sara Vick Work Phone: [facility] 07-01-2023 10:26-0400 SaO2% (BldA) [Mass fraction] 98 % MD Sara Vick Work Phone: [facility] 07-01-2023 10:26-0400 Systolic blood pressure 120 mm[Hg] MD Sara Vick Work Phone: [facility] 06-30-2023 14:39-0400 Diastolic blood pressure 70 mm[Hg] MD Sara Vick Work Phone: [facility] 06-30-2023 14:39-0400 Heart rate 75 /min MD Sara Vick Work Phone: [facility] 06-30-2023 14:39-0400 SaO2% (BldA) [Mass fraction] 99 % MD Sara Vick Work Phone: [facility] 06-30-2023 14:39-0400 Systolic blood pressure 110 mm[Hg] MD Sara Vick Work Phone: [facility] 06-24-2023 13:13-0500 Body height 172.7 cm Ghanshyam Lombardi MD Work Phone: [facility] 06-24-2023 13:13-0500 Body weight 87.4 kg Ghanshyam Lombardi MD Work Phone: [facility] 06-24-2023 13:13-0500 Diastolic blood pressure 56 mm[Hg] Ghanshyam Lombardi MD Work Phone: [facility] 06-24-2023 13:13-0500 Heart rate 93 /min Ghanshyam Lombardi MD Work Phone: [facility] 06-24-2023 13:13-0500 Respiratory rate 18 /min Ghanshyam Lombardi MD Work Phone: [facility] 06-24-2023 13:13-0500 SaO2% (BldA) [Mass fraction] 97 % Ghanshyam Lombardi MD Work Phone: [facility] 06-24-2023 13:13-0500 Systolic blood pressure 115 mm[Hg] Ghanshyam Lombardi MD Work Phone: [facility] 05-15-2023 09:00-0500 Body weight 90.18 kg Larry Brown Other [facility] [employer] Other 05-15-2023 09:00-0500 Body weight 90.17 kg MD Sara Vick Work Phone: [facility] 05-15-2023 09:00-0500 Diastolic blood pressure 86 mm[Hg] Larry Brown Other [facility] 05-15-2023 09:00-0500 SaO2% (BldA) [Mass fraction] 99 % Larryrandy Brown Other [facility] [employer] Other 05-15-2023 09:00-0500 Systolic blood pressure 148 mm[Hg] Larry Brown Other [facility] 05-13-2023 11:15-0500 Body height 175.26 cm Kiran Kessler Other [facility] 05-13-2023 11:15-0500 Body mass index (BMI) [Ratio] 29.24 kg/m2 Kiran Kessler Other [facility] [employer] Other 05-13-2023 11:15-0500 Body temperature 96.9 [degF] Kiran Kessler Other [facility] [employer] Other 05-13-2023 11:15-0500 Body weight 89.81 kg Kiran Kessler Other [facility] 05-13-2023 11:15-0500 Diastolic blood pressure 80 mm[Hg] Kiran Kessler Other [facility] 05-13-2023 11:15-0500 SaO2% (BldA) [Mass fraction] 99 % Kiran Kessler Other [facility] [employer] Other 05-13-2023 11:15-0500 Systolic blood pressure 140 mm[Hg] Kiran Kessler Other [facility] 04-03-2023 10:15-0500 Body height 175.26 cm Larry Stephanie Other [facility] [employer] Other 04-03-2023 10:15-0500 Diastolic blood pressure 74 mm[Hg] Larryrandy Brown Other [facility] [employer] Other 04-03-2023 10:15-0500 SaO2% (BldA) [Mass fraction] 99 % Larry Stephanie Other [facility] [employer] Other 04-03-2023 10:15-0500 Systolic blood pressure 118 mm[Hg] Larryrandy Brown Other [facility] [employer] Other 03-25-2023 11:05-0500 Diastolic blood pressure 75 mm[Hg] MD Sara Vick Work Phone: [facility] 03-25-2023 11:05-0500 Heart rate 72 /min MD Sara Vick Work Phone: [facility] 03-25-2023 11:05-0500 Respiratory rate 18 /min MD Sara Vick Work Phone: [facility] 03-25-2023 11:05-0500 SaO2% (BldA) [Mass fraction] 97 % MD Sara Vcik Work Phone: [facility] 03-25-2023 11:05-0500 Systolic blood pressure 146 mm[Hg] MD Sara Vick Work Phone: [facility] 03-25-2023 10:27-0500 Inhaled oxygen flow rate 3 L/min MD Sara Vick Work Phone: [facility] 03-25-2023 10:14-0500 Body height 173.99 cm MD Sara Vick Work Phone: [facility] 03-25-2023 10:14-0500 Body weight 88.45 kg MD Sara Vick Work Phone: [facility] 01-27-2023 14:30-0400 Body height 175.26 cm Dominique Shane Other [employer] Other 01-27-2023 14:30-0400 Diastolic blood pressure 70 mm[Hg] Dominique Shane Other [employer] Other 01-27-2023 14:30-0400 SaO2% (BldA) [Mass fraction] 98 % Dominique Shane Other [employer] Other 01-27-2023 14:30-0400 Systolic blood pressure 118 mm[Hg] Dominique Shane Other [employer] Other 01-09-2023 10:15-0400 Body height 175.26 cm Larry Brown Other [employer] Other 01-09-2023 10:15-0400 Body mass index (BMI) [Ratio] 29.56 kg/m2 Larry Brown Other [employer] Other 01-09-2023 10:15-0400 Body weight 90.81 kg Larry Brown Other [employer] Other 01-09-2023 10:15-0400 Diastolic blood pressure 78 mm[Hg] Larry Brown Other [employer] Other 01-09-2023 10:15-0400 SaO2% (BldA) [Mass fraction] 98 % Larry Brown Other [employer] Other 01-09-2023 10:15-0400 Systolic blood pressure 130 mm[Hg] Larry Brown Other [employer] Other 12-12-2022 09:30-0400 Body height 175.26 cm Larry Brown Other [employer] Other 12-12-2022 09:30-0400 Body mass index (BMI) [Ratio] 29.77 kg/m2 Larry Brown Other [employer] Other 12-12-2022 09:30-0400 Body weight 91.45 kg Larry Brown Other [employer] Other 12-12-2022 09:30-0400 Diastolic blood pressure 74 mm[Hg] Larry Brown Other [employer] Other 12-12-2022 09:30-0400 SaO2% (BldA) [Mass fraction] 99 % Larry Brown Other [employer] Other 12-12-2022 09:30-0400 Systolic blood pressure 122 mm[Hg] Larry Brown Other [employer] Other 09-19-2022 12:00-0400 Body height 175.26 cm Larry Brown Other [employer] Other 09-19-2022 12:00-0400 Body mass index (BMI) [Ratio] 30.8 kg/m2 Larry Brown Other [employer] Other 09-19-2022 12:00-0400 Body weight 94.62 kg Larry Brown Other [employer] Other 09-19-2022 12:00-0400 SaO2% (BldA) [Mass fraction] 95 % Larry Brown Other [employer] Other 09-18-2022 10:40-0400 Body height 172.7 cm Perfecto Burch MD Work Phone: [facility] 09-18-2022 10:40-0400 Body mass index (BMI) [Ratio] 31.26 kg/m2 Perfecto Burch MD Work Phone: [facility] [facility] 09-18-2022 10:40-0400 Body temperature 96.4 [degF] Perfecto Burch MD Work Phone: [facility] 09-18-2022 10:40-0400 Body weight 93.26 kg Perfecto Burch MD Work Phone: [facility] 07-27-2022 15:38-0400 Hourly Rounding [facility] 07-27-2022 15:38-0400 Promise to Return [facility] 07-27-2022 14:38-0400 Hourly Rounding [facility] 07-27-2022 14:38-0400 Promise to Return [facility] 07-27-2022 13:38-0400 Hourly Rounding [facility] 07-27-2022 13:38-0400 Promise to Return [facility] 07-27-2022 12:08-0400 Heart rate 106 /min [facility] 07-27-2022 12:08-0400 SaO2% (BldA) [Mass fraction] 100 % [facility] 07-27-2022 12:07-0400 Diastolic blood pressure 79 mm[Hg] [facility] 07-27-2022 12:07-0400 Mean blood pressure 103 mm[Hg] [facility] 07-27-2022 12:07-0400 Systolic blood pressure 151 mm[Hg] [facility] 07-27-2022 12:06-0400 Body temperature 97.16 [degF] [facility] 07-27-2022 07:46-0400 Heart rate 82 /min [facility] 07-27-2022 07:46-0400 SaO2% (BldA) [Mass fraction] 97 % [facility] 07-27-2022 07:46-0400 Diastolic blood pressure 81 mm[Hg] [facility] 07-27-2022 07:46-0400 Mean blood pressure 116 mm[Hg] [facility] 07-27-2022 07:46-0400 Systolic blood pressure 186 mm[Hg] [facility] 07-27-2022 07:45-0400 Body temperature 97.52 [degF] [facility] 07-27-2022 01:46-0400 Heart rate 89 /min [facility] 07-27-2022 01:46-0400 SaO2% (BldA) [Mass fraction] 96 % [facility] 07-27-2022 01:45-0400 Diastolic blood pressure 67 mm[Hg] [facility] 07-27-2022 01:45-0400 Mean blood pressure 89 mm[Hg] [facility] 07-27-2022 01:45-0400 Systolic blood pressure 134 mm[Hg] [facility] 07-27-2022 01:45-0400 Body temperature 98.06 [degF] [facility] 07-27-2022 01:45-0400 Blood Pressure Location [facility] 07-27-2022 01:45-0400 Respiratory rate 18 /min [facility] 07-26-2022 20:00-0400 Respiratory rate 16 /min [facility] 07-26-2022 17:20-0400 Blood Pressure Location [facility] 07-26-2022 17:20-0400 Heart rate 78 /min [facility] 07-26-2022 15:30-0400 Respiratory rate 12 /min [facility] 07-26-2022 15:00-0400 Mean blood pressure 122 mm[Hg] [facility] 07-26-2022 15:00-0400 Respiratory rate 8 /min [facility] 07-26-2022 14:30-0400 Mean blood pressure 112 mm[Hg] [facility] 07-26-2022 14:30-0400 Respiratory rate 12 /min [facility] 07-26-2022 13:30-0400 Mean blood pressure 95 mm[Hg] [facility] 07-26-2022 11:35-0400 gluc 105 mg/dL [facility] 07-26-2022 11:35-0400 gluc [facility] 07-26-2022 11:35-0400 Heart rate 72 /min [facility] 07-26-2022 11:35-0400 Respiratory rate 18 /min [facility] 05-02-2022 10:00-0500 Body height 175.26 cm Larry Stephanie Other [email or web address] [facility] [employer] Other 05-02-2022 10:00-0500 Body mass index (BMI) [Ratio] 31.89 kg/m2 Larry Brown Other [employer] Other 05-02-2022 10:00-0500 Body weight 97.98 kg Larry Brown Other [employer] Other 05-02-2022 10:00-0500 Diastolic blood pressure 80 mm[Hg] Larry Brown Other [facility] [employer] Other 05-02-2022 10:00-0500 Systolic blood pressure 134 mm[Hg] Larry Brown Other [facility] [employer] Other 03-08-2022 17:00-0500 Diastolic blood pressure 117 mm[Hg] [facility] 03-08-2022 17:00-0500 Mean blood pressure 131 mm[Hg] [facility] 03-08-2022 17:00-0500 SaO2% (BldA) [Mass fraction] 95 % [facility] 03-08-2022 17:00-0500 Systolic blood pressure 160 mm[Hg] [facility] 03-08-2022 16:30-0500 Diastolic blood pressure 85 mm[Hg] [facility] 03-08-2022 16:30-0500 Heart rate 75 /min [facility] 03-08-2022 16:30-0500 Mean blood pressure 94 mm[Hg] [facility] 03-08-2022 16:30-0500 Respiratory rate 15 /min [facility] 03-08-2022 16:30-0500 SaO2% (BldA) [Mass fraction] 98 % [facility] 03-08-2022 16:30-0500 Systolic blood pressure 112 mm[Hg] [facility] 03-08-2022 16:10-0500 Diastolic blood pressure 74 mm[Hg] [facility] 03-08-2022 16:10-0500 Heart rate 93 /min [facility] 03-08-2022 16:10-0500 Mean blood pressure 90 mm[Hg] [facility] 03-08-2022 16:10-0500 Respiratory rate 14 /min [facility] 03-08-2022 16:10-0500 SaO2% (BldA) [Mass fraction] 98 % [facility] 03-08-2022 16:10-0500 Systolic blood pressure 122 mm[Hg] [facility] 03-08-2022 15:15-0500 Respiratory rate 18 /min [facility] 03-08-2022 15:00-0500 Hourly Rounding [facility] 03-08-2022 15:00-0500 Promise to Return [facility] 03-08-2022 14:45-0500 Respiratory rate 20 /min [facility] 03-08-2022 14:15-0500 Respiratory rate 20 /min [facility] 03-08-2022 14:14-0500 Hourly Rounding [facility] 03-08-2022 14:14-0500 Promise to Return [facility] 03-08-2022 13:54-0500 Heart rate 99 /min W[facility] 03-08-2022 13:37-0500 Body temperature 97.7 [degF] [facility] 03-08-2022 13:37-0500 Heart rate 104 /min [facility] 03-08-2022 13:00-0500 Hourly Rounding W[facility] 03-08-2022 13:00-0500 Promise to Return Wm [facility] 03-07-2022 11:00-0500 Body height 175.26 cm Larry Carrilloky Other [employer] Other 03-07-2022 11:00-0500 Body mass index (BMI) [Ratio] 32.54 kg/m2 Larry Stephanie Other [employer] Other 03-07-2022 11:00-0500 Body weight 99.97 kg Larry Carrilloky Other [employer] Other 03-07-2022 11:00-0500 SaO2% (BldA) [Mass fraction] 99 % Larryrandy Brown Other [employer] Other 06-20-2017 09:19-0500 PAIN LEVEL 0 {score} [...] Start: 10-30-2023 End: 10-30-2023 ambulatory SARA VICK Facility:[facility] Start: 08-08-2023 End: 08-08-2023 ambulatory GHANSHYAM LOMBARDI Facility:[facility] Start: 08-08-2023 End: 08-08-2023 Subsequent hospital visit by physician Mri 6 Radio Main Q (I-Stat/1.5t/3t) Work Phone: MRI Q Comment on above: 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, 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] Start: 08-07-2023 End: 08-07-2023 ambulatory MD Sara Vick Work Phone: [facility] Work Phone: Start: 08-07-2023 End: 08-07-2023 Patient encounter procedure MD Sara Vick Work Phone: [facility] [place] Work Phone: Start: 08-05-2023 End: 08-06-2023 ambulatory ANNIE J PRINTY Not Available Start: 07-15-2023 End: 07-15-2023 ambulatory ANNIE PRINTY Not Available Start: 07-13-2023 End: 07-13-2023 ambulatory GHANSHYAMEVELINE LOMBARDI Facility:[facility] Start: 07-13-2023 End: 07-13-2023 Subsequent hospital visit by physician [facility] D[facility] Work Phone: Radiology Comment on above: Chronic bilateral lo w back pain with bilateral sciatica [M54.42, M54.41, G89.29] Start: 07-01-2023 End: 07-01-2023 Patient encounter procedure MD Sara Vick Work Phone: [facility] Work Phone: Start: 06-30-2023 End: 06-30-2023 Patient encounter procedure MD Sara Vick Work Phone: [facility] Work Phone: Start: 06-29-2023 End: 06-29-2023 ambulatory ANNIE J PRINTY Not Available Start: 06-24-2023 End: 06-24-2023 Patient encounter procedure Ghanshyam Lombardi MD Work Phone: [facility] [place] Comment on above: 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); Chronic bilateral low back pain with bilateral sciatica Start: 06-24-2023 End: 06-24-2023 ambulatory GHANSHYAM LOMBARDI Facility:[facility] Start: 06-24-2023 End: 06-24-2023 Subsequent hospital visit by physician [facility] Radiology Comment on above: 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] Start: 05-22-2023 End: 05-22-2023 ambulatory Sara Vick Facility:[facility] Start: 05-22-2023 End: 05-22-2023 ambulatory MD Sara Vick Work Phone: [facility] Work Phone: Start: 05-22-2023 End: 05-22-2023 Patient encounter procedure MD Sara Vick Work Phone: [facility]Ultrasound Main [place] Work Phone: Start: 05-20-2023 End: 05-20-2023 ambulatory Sara Vick Facility:[facility] Start: 05-20-2023 End: 05-20-2023 Discharged Recurring MD Sara Vick Work Phone: [facility] [address] Start: 05-20-2023 Registered Recurring MD Gideon Vick Work Phone: [facility] [address] Start: 05-18-2023 Patient encounter procedure MD Sara Vick Work Phone: [facility]- Start: 05-15-2023 End: 05-15-2023 ambulatory Larry Brown Other [employer] Other Start: 05-15-2023 Office outpatient vi sit 25 minutes Larry Brown [facility] [place] Start: 05-15-2023 End: 05-15-2023 Patient encounter procedure MD Sara Vick Work Phone: [facility]- Start: 05-13-2023 End: 05-13-2023 ambulatory Kiran Kessler Other [employer] Other Start: 05-13-2023 Office outpatient ne w 60 minutes Kiran Kessler [facility] Start: 05-13-2023 End: 05-13-2023 Patient encounter procedure MD Sara Vick Work Phone: [facility]- Start: 04-16-2023 End: 04-16-2023 ambulatory Dominique Shane Other [employer] Other Start: 04-16-2023 Telephone encounter Dominique Shane [facility] Start: 04-03-2023 End: 04-03-2023 ambulatory Larry Brown Other [employer] Other Start: 04-03-2023 Office outpatient vi sit 15 minutes Larry Brown [facility] [place] Start: 04-03-2023 End: 04-03-2023 Patient encounter procedure MD Sara Vick Work Phone: [facility] [place] Work Phone: Start: 03-25-2023 (PROC) PROCEDURE Larry Brown [facility] Start: 03-25-2023 End: 03-25-2023 ambulatory Sara Vick Facility:[facility] Start: 03-25-2023 End: 03-25-2023 Admission to same day surgery center MD Sara Vick Work Phone: [facility] Work Phone: Start: 03-25-2023 End: 03-25-2023 ambulatory MD Sara Vick Work Phone: [facility] Work Phone: Start: 03-06-2023 End: 03-06-2023 Patient encounter procedure MD Sara Vick Work Phone: [facility] [place] Work Phone: Start: 02-10-2023 End: 02-10-2023 ambulatory Dominique Shane Other [employer] Other Start: 02-10-2023 Telephone encounter Dominique Shane [facility] Start: 01-27-2023 End: 01-27-2023 ambulatory Dominique Shane Other [employer] Other Start: 01-27-2023 Office outpatient vi sit 25 minutes Dominique Shane [facility] [place] Start: 01-27-2023 Telephone encounter Larry Stephanie [facility] Start: 01-09-2023 End: 01-09-2023 ambulatory Larry Stephanie Other [employer] Other Start: 01-09-2023 Office outpatient vi sit 25 minutes Larry Stephanie [facility] [place] Start: 12-12-2022 End: 12-12-2022 ambulatory Larry Stephanie Other [employer] Other Start: 12-12-2022 Office outpatient vi sit 25 minutes Larry Stephanie [facility] [place] Start: 11-22-2022 End: 11-22-2022 Emergency department patient visit [facility] Facility:[facility] Start: 09-19-2022 End: 09-19-2022 ambulatory Larry Stephanie Other [facility] Other Start: 09-19-2022 Office outpatient vi sit 25 minutes Larry Stephanie [facility] [place] Start: 09-18-2022 ambulatory PERFECTO BURCH [facility] Start: 09-18-2022 End: 09-18-2022 Office outpatient new 30 minutes Perfecto Burch MD Work Phone: [facility] Comment on above: 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, sequela (Primary Dx) Start: 09-18-2022 End: 09-18-2022 Subsequent hospital visit by physician Perfecto Burch MD Work Phone: [facility] Start: 09-17-2022 ambulatory ADELE FLEMING Faci lity:[facility]1 Start: 09-10-2022 End: 09-10-2022 ambulatory Sara Vick Facility:[facility] Start: 09-09-2022 End: 09-10-2022 ambulatory ADELE FLEMING Facility:[facility] Start: 09-08-2022 End: 09-09-2022 ambulatory Alley Naranjo Facility:[facility] Start: 08-18-2022 End: 08-19-2022 ambulatory ADELE FLEMING Facility:[facility] Start: 08-13-2022 ambulatory PERFECTO BURCH [facility] Start: 08-12-2022 End: 08-13-2022 ambulatory ADELE FLEMING Facility:[facility] Start: 08-08-2022 End: 08-09-[address] ALFRED UMAÑA Facility:[facility] Start: 08-01-2022 End: 08-02-2022 ambulatory ADELE FLEMING Facility:[facility] Start: 07-26-2022 End: 07-27-2022 ambulatory Julio Ferrara Facility:[facility] Start: 07-26-2022 End: 07-27-2022 Observation Franciscoalberto Alcazar [facility] Start: 07-25-2022 Encounter for preprocedural cardiovascular examination ADELE FLEMING [facility] Start: 07-25-2022 Encounter for preprocedural laboratory examination ADELE FLEMING [facility] Start: 07-24-2022 End: 07-25-2022 ambulatory ADELE [...] 06-19-2022 ambulatory MD Sara Vick Work Phone: [facility] Work Phone: Start: 06-19-2022 End: 06-19-2022 Discharged Recurring MD Sara Vick Work Phone: [facility] [place] Work Phone: Start: 06-13-2022 End: 06-14-2022 ambulatory [...] 05-02-2022 End: 05-02-2022 ambulatory Larry Brown Other [employer] Other Start: 05-02-2022 Office outpatient vi sit 25 minutes Larry Brown [facility] [place] Start: 05-01-2022 End: 05-02-2022 ambulatory ADELE FLEMING Facility:[facility] Start: 04-22-2022 End: 04-23-2022 ambulatory ADELE FLEMING Facility:[facility] Start: 04-14-2022 End: 04-15-2022 ambulatory DEEPALI JANSEN Facility:[facility] Start: 04-08-2022 (PROC) PROCEDURE Larry Beck [facility] Start: 04-08-2022 End: 04-08-2022 ambulatory Larry Brown Other [facility] Other Start: 03-31-2022 End: 04-01-[address] ALFRED UMAÑA Facility:[facility] Start: 03-08-2022 End: 03-08-2022 Emergency department patient visit Wm Nagy Facility:[facility] Start: 03-08-2022 End: 03-08-2022 Emergency department patient visit Wm Nagy [facility] Start: 03-07-2022 End: 03-07-2022 ambulatory Larry Brown Other [employer] Other Start: 03-07-2022 Office consultation new/estab patient 60 min Larry Brown [facility] [place] Start: 03-06-2022 End: 03-07-[address] SARA VICK . Facility:[facility] Start: 01-03-2022 End: 01-03-[address] SARA VICK . Facility:[facility] Start: 12-09-2021 End: 12-10-2021 ambulatory SHAWANDA LITTLE Facility:[facility] Start: 11-05-2021 End: 11-06-2021 ambulatory ADELE Means [facility] Facility:[facility] Start: 10-07-2021 End: 10-07-2021 ambulatory PO SUAREZ . Facility:[facility] Start: 05-04-2020 End: 05-04-2020 Patient encounter procedure Sara Hoy -Pre-Surgical Testing Start: 05-02-2020 Registered Recurring Sara Vick -P hysical Therapy [place] Start: 04-24-2020 End: 04-24-2020 Patient encounter procedure Sara Hoy -Pre-Surgical Testing Start: 02-01-2020 End: 02-01-2020 Patient encounter procedure Sara Vick -[facility] Start: 06-29-2018 Patient encounter procedure Sara~[id number] UNKNOWN Hoy Facility:[facility] Start: 12-11-2017 End: 12-12-2017 Patient encounter DEFAULT PHYSICIAN Facility:[facility] Procedures Date Procedure Procedure Detail Performing Clinician Start: 08-08-2023 Mri spinal canal tho racic w/o contrast matrl Ghanshyam Lombardi MD Work Phone: Start: 07-13-2023 Ct lumbar spine w/o contrast material Ghanshyam Lombardi MD Work Phone: Start: 06-24-2023 End: 06-24-2023 Radex spine lumbosacral minimum 4 views 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: Start: 05-22-2023 Pulse volume recorde r pneumoplethysmography MD Sara Vick Work Phone: Start: 05-22-2023 Duplex scan of lower limb veins MD Saar Vick Work Phone: Start: 03-25-2023 Local anesthetic [...] neoplasm of breast Mammogram Screening [facility] Start: 06-23-2024 BP Controlled (<130/80) BP Controlled (<130/80) [facility] Start: 12-20-2023 Influenza vaccination Influenza Vaccine (Season Ended) [facility] Start: 05-22-2023 Pulse volume recorder pneumoplethysmography US arterial pvr rest [facility] Start: 05-22-2023 [facility] Start: 05-22-2023 Duplex scan of lower limb veins US venous duplex LE [facility] Start: 05-22-2023 US Lower extremity vein - bilateral [facility] Start: 04-20-2023 Advance Directive Discussion Advance Directive Discussion [facility] Start: 04-20-2023 Behavioral Health Screening Behavioral Health Screening [facility] Start: 04-20-2023 Depression Assessment Depression Assessment [facility] Start: 03-25-2023 [facility] Start: 02-28-2023 Screening for malignant neoplasm of breast Mammogram Screening [facility] Start: 12-19-2022 Covid-19 Vaccine ( season) Covid-19 Vaccine () [facility] Start: 12-19-2022 Influenza vaccination Influenza Vaccine (#1) [facility] Start: 01-28-2022 COVID-19 VACCINE (5 - Booster for Pfizer series) COVID-19 VACCINE (5 - Booster for Pfizer series) [facility] Start: 08-24-2019 Screening for malignant neoplasm of breast MAMMOGRAM SCREENING DISCUSSION [facility] Start: 12-20-2016 Screening for osteoporosis Bone Density Screening [facility] Start: 06-17-2014 Diabetes Screening Diabetes Screening [facility] Start: 2011 RSV Vaccine (1 - 1-dose 60+ series) RSV Vaccine (1 - 1-dose 60+ series) [facility] Start: 12-20-2001 Shingrix Vaccine (1 of 2) Shingrix Vaccine (1 of 2) [facility] Start: 12-20-2001 Zoster vaccine hzv live for subcutaneous use ZOSTER (SHINGLES) VACCINE (1 of 2) [facility] Start: 12-20-1996 Lipid panel Lipid Screening [facility] Start: 12-20-1996 Screening for malignant neoplasm of colon [facility] Start: 1991 Lipid panel LIPID SCREENING [facility] Start: 12-20-1972 Screening for malignant neoplasm of cervix CERVICAL CANCER SCREENING DISCUSSION [facility] Start: 12-20-1970 Third diphtheria, tetanus and acellular pertussis (DTaP) vaccination TDAP (ADULT) [facility] Start: 12-20-1970 Urine microalbumin profile DTaP,Tdap,Td Vaccine (1 - Tdap) [facility] Start: 12-20-1969 Annual PCP Team Chronic Disease Visit Annual PCP Team Chronic Disease Visit [facility] Start: 1950 Hepatitis C screening HEPATITIS C VIRUS SCREENING [facility] Start: 1950 Screening for osteoporosis DEXA SCAN DISCUSSION [facility] Start: 1950 Tetanus vaccination TETANUS [facility] End: 07-23-2024 CT Lumbar spine WO contrast CT LUMBAR SPINE WO IVCON Radiology Routine Chronic bilateral low back pain with bilateral sciatica 1 Occurrences starting 06/24/2023 until 07/23/2024 [facility] Work Phone: Comment on above: 1 Occurrences starting 06/24/2023 until 07/23/2024 End: 07-23-2024 MR Thoracic spine WO contrast MRI THORACIC SPINE WO IVCON Radiology Routine 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 1 Occurrences starting 06/24/2023 until 07/23/2024 [facility] Work Phone: Comment on above: 1 Occurrences starting 06/24/2023 until 07/23/2024 Patient Education Stephanie Non Diagn ostic Block [facility] Work Phone: Patient referral [facility] Work Phone: XR Knee - left 3 Views XR KNEE L EFT 3 VIEWS Imaging Routine Pain in prosthetic joint, sequela Ordered: 09/16/2022 [facility] Comment on above: Ordered: 09/16/2022 XR Pelvis and Hip - left Views X R HIP WITH PELVIS LEFT Imaging Routine Pain in prosthetic joint, sequela 09/18/2022 10:11 AM EDT [facility] Work Phone: [facility] Immunizations Immunization Date Immunization Notes Care Provider Fa cili 02-11-2022 Influenza, injectabl e, Madin Hillary Canine Kidney, preservative free, quadrivalent MD Sara Vick Work Phone: [facility] 02-11-2022 influenza virus vacc ine, unspecified formulation Ghanshyam Lombardi MD Work Phone: [facility] 12-03-2021 COVID-19 Comirnaty (Pfizer) Tri-Sucrose 12+ MD Sara Vick Work Phone: [facility] 03-25-2021 COVID-19 mRNA, Comir nicolle (Pfizer) MD Sara Vick Work Phone: [facility] 07-12-2020 COVID-19, mRNA, LNP- S, PF, 30 mcg/0.3 mL dose Wm Nagy [facility] Comment on above: Reason for Medicatio n: Prophylaxis 06-14-2020 COVID-19, mRNA, LNP- S, PF, 30 mcg/0.3 mL dose Wm Nagy [facility] Comment on above: Reason for Medicatio n: Prophylaxis 02-08-2020 Seasonal trivalent influenza vaccine, adjuvanted, preservative free MD Sara Vick Work Phone: [facility] 02-23-2018 influenza, injectabl e, madin hillary canine kidney, preservative free MD Sara Vick Work Phone: [facility] 02-18-2018 pneumococcal polysaccharide vaccine, 23 valent Wm Nagy [facility] 06-18-2017 tuberculin skin test ; unspecified formulation Praveen Bynum 02-24-2017 pneumococcal polysaccharide vaccine, 23 valent MD Sara Vick Work Phone: [facility] 02-05-2017 influenza, high dose seasonal, preservative-free MD Sara Vick Work Phone: [facility] 02-05-2017 pneumococcal conjuga te vaccine, 13 valent [facility] 02-02-2016 influenza, seasonal, injectable, preservative free MD Sara Vick Work Phone: [facility] 10-20-2012 pneumococcal polysaccharide vaccine, 23 valent Wm Nagy [facility] Payers Date Payer Category Payer Unknown [id number] 2022 Self-pay [id number] 2022 Unknown [id number] 2022 Private Health Insurance 2018 Medicare [id number] 1959 Private Health Insurance [id number] 1950 Unknown [id number] 2.16.84 0.1.337342.3.579.2.727 1950 Unknown [id number] 2.16.8 40.1.491881.3.579.2.159 1950 Unknown [id number] 2.16.84 0.1.822707.3.579.2.593 1951 Unknown [id number] 2.16.84 0.1.990642.3.579.2.593 1951 Unknown [id number] 2.16.84 0.1.511206.3.579.2.593 1951 Unknown [id number] 2.16.84 0.1.025124.3.579.2.593 1951 Unknown [id number] 2.16.84 0.1.594514.3.579.2.593 1951 Unknown [id number] 2.16.84 0.1.823133.3.579.2.593 1951 Unknown [id number] 2.16.84 0.1.162546.3.579.2.593 1951 Unknown [id number] 2.16.84 0.1.500521.3.579.2.593 1951 Unknown [id number] 2.16.84 0.1.518840.3.579.2.593 1951 Unknown [id number] 2.16.84 0.1.530725.3.579.2.593 1951 Unknown [id number] 2.16.84 0.1.019308.3.579.2.593 1951 Unknown [id number] 2.16.84 0.1.667746.3.579.2.593 1951 Unknown [id number] 2.16.84 0.1.210321.3.579.2.593 1951 Unknown [id number] 2.16.84 0.1.078419.3.579.2.593 1951 Unknown [id number] 2.16.84 0.1.205794.3.579.2.593 1951 Unknown [id number] 2.16.84 0.1.517563.3.579.2.593 1951 Unknown [id number] 2.16.84 0.1.517982.3.579.2.593 1951 Unknown [id number] 2.16.84 0.1.199706.3.579.2.593 1951 Unknown [id number] 2.16.84 0.1.251540.3.579.2.593 1951 Unknown [id number] 2.16.84 0.1.358560.3.579.2.593 1951 Unknown [id number] 2.16.84 0.1.805404.3.579.2.593 1951 Unknown [id number] 2.16.84 0.1.409466.3.579.2.593 1951 Unknown [id number] 2.16.84 0.1.032292.3.579.2.593 1951 Unknown [id number] 2.16.84 0.1.402554.3.579.2.593 1951 Unknown [id number] 2.16.84 0.1.026328.3.579.2.593 1951 Unknown [id number] 2.16.84 0.1.701865.3.579.2.593 1951 Unknown [id number] 2.16.84 0.1.418159.3.579.2.593 1951 Unknown [id number] 2.16.84 0.1.935252.3.579.2.593 1951 Unknown [id number] 2.16.84 0.1.187669.3.579.2.593 1951 Unknown [id number] 2.16.8 40.1.434201.3.579.2.983 1951 Unknown [id number] 2.16.8 40.1.668542.3.579.2.983 1951 Unknown [id number] 2.16.8 40.1.200765.3.579.2.983 1951 Unknown [id number] 2.16.8 40.1.046345.3.579.2.727 1951 Unknown [id number] 2.16.8 40.1.742155.3.579.2.727 1951 Unknown [id number] 2.16.8 40.1.918958.3.579.2.727 1951 Unknown [id number] 2.16.8 40.1.386520.3.579.2.727 1951 Unknown [id number] 2.16.84 0.1.909134.3.579.2.1259 1951 Unknown [id number] 2.16.84 0.1.392930.3.579.2.1259 1951 Unknown [id number] 2.16.84 0.1.817403.3.579.2.1259 Unknown Unknown [id number] Unknown [id number] Unknown [id number] 2.16.8 40.1.839000.3.579.2.531 Unknown [id number] 2.16.8 40.1.221881.3.579.2.531 Unknown [id number] 2.16.8 40.1.120644.3.579.2.531 Unknown [id number] 2.16.8 40.1.620186.3.579.2.531 Social History Date Type Detail Facility Start: 06-18-2017 Unknown if ever smoked [facility] Start: 04-24-2020 End: 06-24-2023 Tobacco smoking status INIS Never smoked tobacco (finding) [facility] Start: 1950 Sex Assigned At Female F [facility] Start: 06-24-2023 Sex Assigned At F [facility] Start: 09-18-2022 Tobacco use and exposure Smokeless tobacco non-user [facility] Start: 09-18-2022 End: 06-24-2023 Alcohol intake Current drinker of alcohol (finding) [facility] Start: 09-18-2022 Alcohol Comment occasional [facility] Start: 1950 Sex Assigned At Not on file A [facility] Start: 06-24-2023 Alcohol intake [facility] National Score (1-100), lower number is lower risk 62 [facility] Medical Equipment Procedure Code Equipment Code Equipment Origin al Text Equipment Identifier Dates Arthroplasty, knee, total, minimally invasive Orthopaedic cement, non-medicated ()[id number] FDA Start: 05-07-2020 Arthroplasty, knee, total, minimally invasive Uncoated knee femur prosthesis, metallic ()[id number] FDA Start: 05-07-2020 Arthroplasty, knee, total, minimally invasive Tibial insert ()[id number] FDA Start: 05-07-2020 Arthroplasty, knee, total, minimally invasive Uncoated knee tibia prosthesis, metallic ()[id number] FDA Start: 05-07-2020 Arthroplasty, knee, total, minimally invasive Polyethylene patella prosthesis ()[id number] FDA Start: 05-07-2020 Goals Date Patient Goal Desired Activity /State Functional Status Date Assessment Result Facility 07-26-2022 Functional Status No [facility] 07-26-2022 Functional Status [facility] 03-08-2022 Functional Status No [facility] Clinical Notes 10-07-2021 to 08-08-2023 Flor [...] PATIENT PRESENTS WITH AN IMPLANTABLE OR ATTACHED BOTTLING MACHINE OPERATOR: No RADIOLOGY DEPARTMENT: MR; Exam(s) Completed: Spine: Thoracic spine PERIPHERAL IV DATA: Not applicable SIGNED BY: BAY Leo) August 08, 2023 3:59 PM documented in this encounter [facility] 08-08-2023 Note HNO ID: [id number] Author: FLOR ZIEGLER RT (R) Service: Radiology [...] PATIENT PRESENTS WITH AN IMPLANTABLE OR ATTACHED BOTTLING MACHINE OPERATOR: No RADIOLOGY DEPARTMENT: MR; Exam(s) Completed: Spine: Thoracic spine PERIPHERAL IV DATA: Not applicable SIGNED BY: RT Felipa(R) August 08, 2023 3:59 PM [facility] 07-13-2023 History of Present illness Narrative [...] PATIENT PRESENTS WITH AN IMPLANTABLE OR ATTACHED BOTTLING MACHINE OPERATOR: No RADIOLOGY DEPARTMENT: CT; Exam(s) Completed: Spine PERIPHERAL IV DATA: Not applicable SIGNED BY: RT Se(Bryce) July 13, 2023 10:44 AM documented in this encounter [facility] 07-13-2023 Note HNO ID: [id number] Author: TORRIE ABRAHAM RT(R) Service: Radiology Author [...] PATIENT PRESENTS WITH AN IMPLANTABLE OR ATTACHED BOTTLING MACHINE OPERATOR: No RADIOLOGY DEPARTMENT: CT; Exam(s) Completed: Spine PERIPHERAL IV DATA: Not applicable SIGNED BY: TorrieRT Courtney(R) July 13, 2023 10:44 AM [facility] 06-24-2023 Note HNO ID: [id number] Author: GHANSHYAM LOMBARDI MD Service: ? Author [...] discussion. 30 minutes spent Ghanshyam Lombardi MD [facility] 06-24-2023 History of Present illness Narrative [...] MD documented in this encounter [facility] 05-15-2023 Evaluation note Encounter Date Diagnosis [...] In the meantime, she can continue taking Progreso as needed all as well as Gabapentin [...] of any breach, fraud, or malicious third democrat actors and no personal patient information was compromised. [facility] Other 01-24-2024 Evaluation note* Encounter Date Diagnosis [...] agrees with plan all questions were addressed. [facility] Other 12-28-2023 Evaluation note* Encounter Date Diagnosis Assessment Notes Treatment Notes Treatment Clinical Notes Mar, Lumbar radiculopathy (ICD-10 - M54.16) 72 year old female evaluated via telephonic call for follow up and medication refill for chronic pain. She voices complaints of low back pain with intermittent radiation down the right lower extremity. She continues taking Progreso with relief and is requesting a refill of this today. I discussed different treatment options in detail with the patient. She feels medication is managing her pain and does not wish to proceed with injections at this time. I encouraged the patient to start physical therapy as previously discussed. She can also continue taking medications as prescribed and I will refill her Progreso as she feels this provides an element [...] pain (ICD-10 - G89.29) Continue medication management. [facility] Other 12-15-2023 Evaluation note* Encounter Date Diagnosis [...] pain (ICD-10 - G89.29) Continue medication management. [facility] Other 10-24-2023 Evaluation note* Encounter Date Diagnosis Assessment Notes Treatment Notes Treatment Clinical Notes Jan, Lumbar radiculopathy (ICD-10 - M54.16) [facility] 10-10-2023 Evaluation note* Encounter Date Diagnosis [...] regarding this. Meanwhile, I will refill her Progreso as it does provide an element of [...] educated on the risks and benefits of long-term opioid use. Hydrocodone/Acetamin ophen was refilled today, opioid risk assessment was done as well as pill count. Patient is compliant with opioid medication. The patient denies any opioid related side effects. [facility] Other 09-22-2023 Evaluation note* Encounter Date Diagnosis [...] educated on the risks and benefits of long-term opioid use. Hydrocodone/Aceta minophen was refilled today, opioid risk assessment was done as well as pill count. Patient is compliant with opioid medication. The patient denies any opioid related side effects. Patients last urine drug screen was positive for alcohol, she is counselled against consuming alcohol. [facility] Other 08-25-2023 Evaluation note* Encounter Date Diagnosis [...] M51.36) Stable, follow up in 4 weeks. [facility] Other 06-02-2023 Evaluation note* Encounter Date Diagnosis [...] nerve blocks in the future if needed. [facility] Other 06-01-2023 History of Present illness Narrative* [...] 09/18/2022 10:58 AM Patient: Leelee Cedillo MR#: [id number] : 1950 Age: 71 y.o. Referring Physician: [...] repair GALL BLADDER SURGERY 1999 BACK SURGERY [id number]- FOOT SURGERY [id number] Family History: Her family history is not [...] [x]cane, []bracing Are you followed by a batchmaker? [] [x] Name: Are you followed by [...] repair GALL BLADDER SURGERY 1999 BACK SURGERY [id number]- FOOT SURGERY [id number] No family history on file. Social History [...] [Metronidazole] [facility]ps[facility]Result Comment: Electronically Signed By: Rachel SALTER\.br\Date and Time Signed: 07/27/22 15:21 EDT\.br\Electronically Co-Signed By: Ottoniel RUFF, Francisco Beck\.br\Date and Time Co- Signed: 07/27/22 17:04 [id number] Hospital Discharge instructions Patient Education 07/27/2022 15:20:26 [...] Follow these instructions at home: Medicines Take zmpn-ito-qvaohqa and prescription medicines only as told by [...] 04/06/2006 Document Revised: 07/29/2019 Document Reviewed: 02/23/2019 [employer] Patient Education 2020 [employer] 07/27/2022 15:20:26 Vasovagal Syncope, Pediatric Vasovagal [...] ?Squatting. ?Moving his or her legs. Give whci-gzd-ikxgsmv and prescription medicines only as told by [...] 01/13/2009 Document Revised: 03/19/2018 Document Reviewed: 05/12/2017 [employer] Patient Education 2020 [employer]. Follow Up Care 07/26/2022 11:32:57 With:Sara Vick Address: [address] [place] [address]- Business (1) When: Unknown Comments:Call for followup appointment 7-10 days With:Julio Ferrara MD, NEU Address: [address] [place] [address]- When:2 to 4 weeks [facility]04-09-2023 Evaluation + Plan noteExtracted from: Title:Discharge [...] With When Contact Information Sara Vick [address] [facility] [place] [address]- Business (1) Additional Instructions: Call for followup appointment 7-10 days Josias RUFF, CARLOS Thacker Within 2 to 4 weeks [address] [place] [address]- Additional Instructions: Near-Syncope Vasovagal Syncope, Pediatric Extracted [...] it is acute or subacute. It might sheet turner to just be some focal white [...] specified devices) recent right foot surgery in [facility]/podiatry secondary to non healing food wound. Currently has wound vac intact to this operative site. 6. Osteoarthritis (M19.90: Unspecified osteoarthritis, unspecified site) osteoarthritis status post left hip replacement Has chronic back pain. 7. Morbid obesity (E66.01: Morbid (severe) obesity due to excess calories) -BMI 70.73 -Senior Analytic Consultant on diet, exercise, weight loss and lifestyle [...] plan. Diagnostic Tests Pending * HgbA1c 07/27/22 [facility]04-08-2023 [facility]Park[facility] HospitalComment on above:Result Comment: Electronically Signed By: [...] if her pain increases in the future. [employer] Other [id number] NotePROCEDURE: XR FOOT RT MIN 3 VIEWS, [...] Electronically authenticated by: JULIO LOBATO Date: 2022-04-23 13:00[facility]01-04-2023 NotePROCEDURE: XR FOOT RT MIN 3 [...] Electronically authenticated by: JULIO LOBATO Date: 2022-04-23 13:00[facility]12-12-2022 NotePROCEDURE: XR ANKLE RT MIN 3 [...] Electronically authenticated by: ALFRED UMAÑA Date: 2022-03-31 18:19[facility]11-19-2022 Hospital Discharge instructions Patient Education 03/08/2022 [...] 04/06/2006 Document Revised: 04/15/2017 Document Reviewed: 03/23/2017 [employer] Patient Education 2020 [employer] 03/08/2022 17:44:27 Hip Dislocation Hip Dislocation [...] Follow these instructions at home: Medicines Take qasz-nwr-slppxix and prescription medicines only as told by your health care provider. Ask your health care provider if the medicine prescribed to you: ?Requires you to avoid driving or using heavy machinery. ?Can cause constipation. You may need to take actions to prevent or treat constipation, such as: ?Drink enough fluid to keep your urine pale yellow. ?Take tpcl-lwt-sqrecfw or prescription medicines. ?Eat foods that are [...] in the [place] Do not drive yourself [facility]. Summary Hip dislocation happens when the [...] 12/30/2001 Document Revised: 12/29/2018 Document Reviewed: 12/30/2018 [employer] Patient Education 2020 [employer]. Follow Up Care 03/08/2022 13:37:46 With:Sorin DICKERSON Address: [address] [place] [id number] Business (1) When:03/11/2022 17:44:09 Comments:Call to establish follow-up care. Wear brace until follow-up with orthopedic surgery. With:Sara Vick Address: [address] [place] [address] [address] [place] [address]- Business (1) When:03/11/2022 17:43:29 Comments:Call the office [...] you develop any new or worsening symptoms. [facility]11-19-2022 Evaluation + Plan noteExtracted from: Title:ED [...] XR Hip 2-3 Views Left + Pelvis [facility]11-18-2022 Evaluation note* Encounter Date Diagnosis Assessment [...] negative findings were considered in medical decision-making. [employer] Other [id number] NotePROCEDURE: XR FOOT RT MIN 3 VIEWS [...] Electronically authenticated by: JULIO LOBATO Date: 2021-10-07 11:44[facility] note[facility] InformationNort [employer] Other Evaluation noteNo assessment information available [facility] Work Phone: Evaluation note* Diagnosis Pain in prosthetic joint, sequela- Primary [facility] Diagnosis Adjacent segment disease of lumbar spine with history of fusion procedure- Primary Chronic bilateral low back pain with bilateral sciatica [facility] Diagnosis 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) [facility] Diagnosis Chronic bilateral low back pain with bilateral sciatica [facility]* Diagnosis Onset Date Resolution Status Chronic pain acute Lumbar degenerative disc disease acute Lumbar radiculopathy acute Lumbosacral spondylosis acut e Sacroiliitis acute 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 acute Chronic pain acute Lumbar degenerative disc disease acute Lumbar radiculopathy acute Lumbosacral spondylosis acut e Sacroiliitis acute [facility] Work Phone: Evaluation note* Diagnosis 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 documented in this encounter [facility] general Narrative - Reported* Type Description Date [...] 021 Surgical History back surgeries x5 [facility] [employer] yuandr gilmna 2018 [employer] Other [facility] general Narrative - Reported* Type Description Date [...] 021 Surgical History back surgeries x5 [facility] [employer] yuandr gilman 2019 Hospitalization History see above [employer] Other [facility] general Narrative - Reported* Type Description Date [...] 2 021 Surgical History back surgeries x5 [facility] carisa-dr gilman 2018 Surgical History lazer surgery on her lt leg veins and she also had sclero tx on b/l legs 2022 Hospitalization History see above [employer] Other Hospital course Narrative No data available for this section [facility] No data available for this section [facility])* Diagnostic Procedure Only (Routine) - Closed Specialty Diagnoses / Procedures Referred By Maximiliano dee Referred To Contact XR IMAGING Diagnoses Fusion of spine of thoracolumbar region Procedures XR SCOLIOSIS PA STAND/LAT 2V RADEX ENTIR THRC LMBR CRV SAC SPI W/SKULL 2/3 VW Ros Cedeño APRN.MANGLE FEEDER [address] [place] [address] Xr [facility] [place] [address] Referral ID Status Reason Start Date Expiration Date V isits Requested Visits Authorized [id number] Closed Auto-Generate d Referral 02/25/2023 03/26/2024 1 1 * Diagnostic Procedure Only (Routine) - Closed Specialty Diagnoses / Procedures Referred By Maximiliano dee Referred To Contact XR IMAGING Diagnoses Fusion of spine of thoracolumbar region Procedures XR LUMBAR MOTION 4V AP/LAT/ FLEX/EXT RADEX SPINE LUMBOSACRAL MINIMUM 4 VIEWS Ros Cedeño APRN.MANGLE [employer]EDER [address] [place] [place] [phone] X[facility] [place] [address] Referral ID Status Reason Start Date Expiration Date V isits Requested Visits Authorized [id number] Closed Auto-Generate d Referral 02/25/2023 03/26/2024 1 1 [facility] for referral (narrative)* Diagnostic Procedure Only (Routine) - Closed Specialty Diagnoses / Procedures Referred By Maximiliano t Referred To Contact MR IMAGING Diagnoses 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 Procedures MRI THORACIC SPINE WO IVCON MRI SPINAL CANAL THORACIC W/O CONTRAST MATRL Ghanshyam Lombardi MD [address] [place] [address] Mr [facility] [place] [address] Referral ID Status Reason Start Date Expiration Date V isits Requested Visits Authorized [id number] Closed Auto-Generate d Referral 08/07/2023 09/07/2023 1 1 [facility] for visit Narrative* Diagnostic Procedure Only (Routine) - Closed Specialty Diagnoses / Procedures Referred By Maximiliano t Referred To Contact XR IMAGING Diagnoses Fusion of spine of thoracolumbar region Procedures XR SCOLIOSIS PA STAND/LAT 2V RADEX ENTIR THRC LMBR CRV SAC SPI W/SKULL 2/3 VW Ros Cedeño, COMMANDING OFFICER [employer]MANGLE FEEDER [address] [place] [address] X[facility] [place] [address] Referral ID Status Reason Start Date Expiration Date V isits Requested Visits Authorized [id number] Closed Auto-Generate d Referral 02/25/2023 03/26/2024 1 1 [facility] Advance Directives No Advanced Directives Records [...] FOLLOW UP; PVR'S, FF ULTRAS[place] [facility] [place] Reason for [...] W/O CONTRAST MATERIAL Ghanshyam Lombardi MD [address] [facility] [place] [address] Ct Imaging [facility] Referral ID Status Reason Start Date Expiration Date Visits Requested Visits Authorized [id number] Pending Review Auto-Generat ed Referral 06/24/2023 07/23/2024 1 1 Specialty Diagnoses / Procedures Referred By Contac t Referred To Contact MR IMAGING Diagnoses 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 Procedures MRI THORACIC SPINE WO IVCON MRI SPINAL CANAL THORACIC W/O CONTRAST MATRL Ghanshyam Lombardi MD [address] [place] [phone] Mr [facility] Referral ID Status Reason Start Date Expiration Date Visits Requested Visits Authorized [id number] Pending Review Auto-Generat ed Referral 06/24/2023 07/23/2024 1 1 Specialty Diagnoses / Procedures Referred By Contac t Referred To Contact Diagnoses Pain in prosthetic joint, sequela Procedures XR HIP WITH PELVIS LEFT Perfecto Burch MD [address] [place] [id number] Referral ID Status Reason Start Date Expiration Date V isits Requested Visits Authorized [id number] New Request 09/18/2022 10/13/2023 1 1 Specialty Diagnoses / Procedures Referred By Contac t Referred To Contact Diagnoses Pain in prosthetic joint, sequela Procedures XR KNEE LEFT 3 VIEWS Perfecto Burch MD [address] [place] [id number] Referral ID Status Reason Start Date Expiration Date V isits Requested Visits Authorized [id number] New Request 09/16/2022 10/11/2023 1 1 Additional Source Comments INFORMATION SOURCE (unrecogn ized section and content) DATE CREATED AUTHOR 12/13/2017 [facility] DATE CREATED AUTHOR AUTHOR'S ORGANIZ ATION 07/10/2018 [place] [facility] DATE CREATED AUTHOR AUTHOR'S ORGANIZ ATION 02/25/2019 [facility] ical Center DATE CREATED AUTHOR AUTHOR'S ORGANIZ ATION 03/01/2022 [facility] DATE CREATED AUTHOR AUTHOR'S ORGANIZ ATION 07/26/2022 [facility] DATE CREATED AUTHOR AUTHOR'S ORGANIZ ATION 09/27/2022 [facility] DATE CREATED AUTHOR AUTHOR'S ORGANIZ ATION 09/27/2022 [facility] DATE CREATED AUTHOR AUTHOR'S ORGANIZ ATION 11/26/2022 [place] [facility] DATE CREATED AUTHOR AUTHOR'S ORGANIZ ATION 07/29/2023 [facility] DATE CREATED AUTHOR AUTHOR'S ORGANIZ ATION 08/09/2023 [facility] d[facility] Specialists EPIC DATE CREATED AUTHOR AUTHOR'S ORGANIZ ATION 11/05/2023 [facility] REASON FOR VISIT (unrecogniz ed section and content) Specialty Diagnoses / Procedures Referred By Contac t Referred To Contact Diagnoses Pain in prosthetic joint, sequela Procedures XR HIP WITH PELVIS LEFT Perfecto Burch MD [address] [place] [address] Referral ID Status Reason Start Date Expiration Date V isits Requested Visits Authorized [id number] New Request 09/18/2022 10/13/2023 1 1 Reason Comments Pain New Patient Reason Comments New Patient Specialty Diagnoses / Procedures Referred By Contac t Referred To Contact CT IMAGING Diagnoses Chronic bilateral low back pain with bilateral sciatica Procedures CT LUMBAR SPINE WO IVCON CT LUMBAR SPINE W/O CONTRAST MATERIAL Ghanshyam Lombardi MD [address] [place] [address] Ct Imaging [facility] Referral ID Status Reason Start Date Expiration Date V isits Requested Visits Authorized [id number] Closed Auto-Generate d Referral 07/11/2023 08/10/2023 2 [...] A17 300 Ghanshyam Lombardi MD [address] [place] [address] [address] [facility] [address] [place] [phone] Referral ID Status Reason Start Date Expiration Date Visits Re quested Visits Authorized [id number] Closed 08/07/2023 09/07/2023 1 1 Patient Care team informatio n (unrecognized section and content) Team Status: Active Member Role Status Dates Sara Vick MD Primary Care Provider Active Team Status: Inactive Member Role Status Dates Sara Vick MD Primary Care Provider, Attending Pr dusty Active Lamp Cleaner Relationship Specialty Start Date End Date Sara Vick MD [address] [place] [address] PCP - General Family Medicine 04/09/22 Lamp Cleaner Relationship Specialty Start Date End Date Sara Vick MD [address] [place] [address] PCP - General Family Medicine 04/09/22 Team [...] May 22, 2023 End: May 22, 2023 Lamp Cleaner Relationship Specialty Start Date End Date Sara Vick MD PCP - General Family Medicine 06/09/11 Lamp Cleaner Relationship Specialty Start Date End Date Sara Vick MD PCP - General Family Medicine 06/09/11 Lamp Cleaner Relationship Specialty Start Date End Date Sara [...] any alcohol or drug abuse patient.[facility] the event this information is protected by the Federal Confidentiality of Alcohol and Drug Abuse Patient Records regulations: The Federal rules restrict any use of the information to criminally investigate or prosecute any alcohol or drug abuse patient.[facility] the event this information is protected by the Federal Confidentiality of Alcohol and Drug Abuse Patient Records regulations: The Federal rules restrict any use of the information to criminally investigate or prosecute any alcohol or drug abuse patient.[facility] the event this information is protected by the Federal Confidentiality of Alcohol and Drug Abuse Patient Records regulations: The Federal rules restrict any use of the information to criminally investigate or prosecute any alcohol or drug abuse patient.[facility] FOR RECORDS PERTAINING TO PATIENTS WHO [...] BE BASED ON THE PRIMARY CLINICAL RECORDS. [facility] [employer] [facility]. provides no warranty or guarantee of the accuracy or completeness of information in this document.
== END 2024-12-07 08:58 | disposition home or self-care (01) ==
LOC: WC 08:58
PROVIDERS: PCP Family Medicine; Visit Provider Physician Assistant
DX: R23.8 Other skin changes (principal); I10 Essential (primary) hypertension; M62.830 Muscle spasm of back; M19.90 Unspecified osteoarthritis, unspecified site; E11.42 Type 2 diabetes mellitus with diabetic polyneuropathy; E78.5 Hyperlipidemia, unspecified; Z12.12 Encounter for screening for malignant neoplasm of rectum; D64.9 Anemia, unspecified; E03.9 Hypothyroidism, unspecified; E55.9 Vitamin D deficiency, unspecified; R53.83 Other fatigue; L84 Corns and callosities; I73.89 Other specified peripheral vascular diseases; L97.412 Non-pressure chronic ulcer of right heel and midfoot with fat layer exposed
CPT/HCPCS: G0328; G0463

== ENCOUNTER 2024-12-07 09:32 | Outpatient (REF) | payer MEDICARE, SELFPAY ==
--- OUTSIDE RECORDS SUMMARY | 2024-12-07 09:48 | XMS_ITS | CCD ---
Author Organization [facility] Care Team Providers Care Rpg Programmer Analyst Name Role Phone Praveen Lopez Unavailable Unavailable PHYSICIAN, DEFAULT Unavailable Unavailable PHYSICIAN, DEFAULT Unavailable Unavailable SARA VICK Unavailable Unavailable Sara Vick~[phone] UNKNOWN Admitting Unavailable Sara Vick~[phone] UNKNOWN Attending Unavailable Sara Vick~[phone] UNKNOWN Referring Unavailable Sara Vick Primary Care Provider Trino Yoo Attending Provider Larry Brown Unavailable Sara Vick Primary Care Physician Lynn Salas Unavailable Unavailable Flor Wheeler Unavailable Unavailable ADELE FLEMING Attending Unavailable SARA VICK Primary Care Unavailable MD Sara Vick Primary Care Provider MD Sara Vick Attending Provider [phone] DEEPALI JANSEN Consulting Unavailable DEEPALI JANSEN Admitting [...] Unavailable Sara Vick MD Primary Care Provider [phone] Julio Ferrara Consulting Unavailable Francisco Alcazar S Admitting Unavailable Francisco Alcazar S Attending Unavailable [place], Julio Consulting Unavailable [place], Julio Consulting Unavailable [place], Julio Consulting Unavailable [place], Julio Consulting Unavailable [place], Julio Consulting Unavailable [place], Julio Consulting Unavailable [place], Julio Consulting Unavailable [place], Julio Consulting Unavailable Wm Nagy Attending Unavailable [...] Primary Care Unavailable Kiran Kessler Admitting Unavailabl Kirna Hendrix Attending Unavailabl e Hoy, Sara M [...] Sulfonamides (Antibiotic) Drug allergy (disorder) 08-02-19 10 [facility] Repository (4 sources) Sulfamethoxazole; Translations: [sulfamethoxazole ] Drug Allergy Cutaneous eruption (morphologic abnormality) [facility] Repository (2 sources) Sulfur; Translations: [Sulfur] Drug Allergy [facility] Repository (11 sources) Sulfonamides (Antibiotic); Translations: [Sulfa (Sulfonamide Antibiotics)] Allergy to substance 07-17-19 07 Rash [facility] (17 sources) Sulfacetamide Drug Allergy 09-19-19 23 [facility] Other (2 sources) metroNIDAZOLE Drug Allergy 09-19-19 23 Dyspepsia [facility] (1 source) Sulfacetamide Drug Allergy 07-01-19 24 [facility] Repository Medications Current Medications Medication Drug Class(es) [...] for 30 days Dec, Active Start: 03-08-2022 [place] 325 mg-5 mg oral tablet 1 tab(s), Oral, q4hr for pain, 12 tab(s), Refill(s) 0, [facility]/pharmacy #[id number], 172, cm, 03/08/22 13:49:00 EST, Height/Length [...] # 30 tab(s), Refills(s) 0, Pharmacy: [facility]/pharmacy #[id number], 172.7, cm, 07/26/22 11:43:00 EDT, Height/Length [...] 06/19/2017 9:00:00 take 1 capsule by [facility] every twenty-four hours Vitamin D3 50 MCG [...] 1:00am Start: 06-19-2017 take 1 tablet by [facility] once daily Pantoprazole Sodium Tablet Delayed Release [...] Start: 07-26-2022 take 2 tablets by [facility] every eight hours as needed for muscle spasms tiZANidine 4 mg Tab 8 mg = 2 tab(s), Oral, q8hr, PRN Spasm, Refills(s) 0 Start Date: 07/26/22 Status: Ordered Start: 06-19-2017 take 2 tablets by [facility] twice daily Zanaflex Tablet 4 MG 2 tablet Tablet Oral GIVE 2 TABS (8MG) BY MOUTH TWICE DAILY FOR MUSCLOSKELETAL 06/19/2017 9:00:00 take 1 capsule by [facility] once daily at bedtime tiZANidine HCl 4 mg capsule Take 4 mg by mouth daily at bedtime. 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 THE [place] [employer] GUIDELINES RECOMMEND THAT WOMEN 40 [...] EXAM: Jul 13 2023 11:11AM [facility] 0508 - CT LUMBAR SPINE WO [...] are 5 lumbar-type vertebrae. Anatomic variant: None. Tong Hooker (topogram) images: Left femoroacetabular arthroplasty. Alignment: Mild [...] any questions regarding this interpretation, please call [phone]. If you are unable to reach us at the number above, please feel free to contact [facility] eRadiology at [phone]. [id number] Normal [facility] CT Lumbar spine WO contrasto n 07-13-2023 [facility] CNOVon 06-24-2023 CNOV Office Visit (SPNSMN ) LEELEE CEDILLO ([id number]) 1950 F Date Time Provider Department 06/24/23 [...] Ghanshyam Lombardi MD Referring Provider: SARA VICK [[id number]] Allergies As of Date: 06/24/2023 Noted Allergy Reaction SULFA (SULFONAMIDE ANTIBIOTICS) 07/16/2006 Date Reviewed: 06/24/2023 Reviewed by: Kaur Manzano MA - Fully Assessed Reason for Visit: New Patient [172] Primary Visit Diagnosis:Adjacent segment disease of lumbar spine with history of fusion procedure [M51.36, Z98.1] Other Visit Diagnosis:Chronic bilateral low back pain with bilateral sciatica [M54.42, M54.41, G89.29] Order(s):MRI THORACIC SPINE WO IVCON [[id number]] Order #: [id number] FUTURE CT LUMBAR SPINE WO IVCON [[id number]] Order #: [id number] FUTURE Prescriptions as of 06/24/2023 - pantoprazole [...] Status:Closed by GHANSHYAM LOMBARDI on 06/24/23 Normal [facility] XR LUMBAR 4V AP/LAT/ FLEX/EX Ton [...] Number of different views (projections): 2 (accession [id number]), 4 (accession [id number]) COMPARISON: Radiographs dated 09/23/2021 RESULT: Counting reference: [...] changes with no evidence of hardware complication. 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 Head Assembler: [facility] Transcribe Date/Time: Jun 24 2023 12:52P Dictated by : LATASHA QUEZADA MD This examination was interpreted and the report reviewed and electronically signed by: LATASHA QUEZADA MD on Jun 24 2023 12:55PM EST [id number] Normal [facility] XR Lumbar spine Views W flex ion and W extensionon 06-24-2023 [facility] XR SCOLIOSIS 2V PA STAND/LAT on 06-24-2023 [...] Number of different views (projections): 2 (accession [id number]), 4 (accession [id number]) COMPARISON: Radiographs dated 09/23/2021 RESULT: Counting reference: [...] changes with no evidence of hardware complication. Cylinder Head Assembler: PSCB Transcribe Date/Time: Jun 24 2023 12:52P Dictated by : LATASHA QUEZADA MD This examination was interpreted and the report reviewed and electronically signed by: LATASHA QUEZADA MD on Jun 24 2023 12:55PM EST [id number] Normal [facility] XR Thoracic and lumbar spine Views for scoliosis W standingon 06-24-2023 [facility] US arterial pvr rest Vito US arterial pvr rest [facility] [place] [address] Ultrasound Report Signed Patient: Leelee Cedillo MR#: [id number] 56 : 1950 Acct:[id number] Age/Sex: 72 / F ADM Date: 05/22/23 [...] Drake Bates M.D.05/25/2023 10:58 AM Dictation Location: [place] [address] Tech: Katy Leone Transcribed By: LISBETH 05/25/23 1058 Dictated By: Drake Bates MD 05/25/23 1057 Signed By: 05/25/23 1058 Normal [facility] US venous duplex LE BIon US venous duplex LE BI [facility] [place] [address] Ultrasound Report Signed Patient: Leelee Cedillo MR#: [id number] 56 : 1950 Acct:[id number] Age/Sex: 72 / F ADM Date: 05/22/23 [...] vein has previously been stripped. No significant felt puller incompetence is noted. The lesser saphenous vein [...] Drake Bates M.D.05/25/2023 10:57 AM Dictation Location: [place] [address] Tech: Katy Leone Transcribed By: LISBETH 05/25/23 1057 Dictated By: Drake Bates MD 05/25/23 1055 Signed By: 05/25/23 1057 Normal [facility] ED Note-Physicianon 11-26-19 ED Note-Physician Normal [facility] Comment on above: Result Comment: Elec tronically Signed By: Sathya De La O PA-C\.br\Date and Time Signed: 11/22/22 14:13 EDT\.br\Electronically Co-Signed By: Flavio Castillo MD\.br\Date and Time Co-Signed: 11/25/22 13:23 EDT Consent for Treatmenton Consent for Treatment [id number]#1.0 0CD:127 Normal [facility] Discharge Instructionson Discharge Instructions [id number]#1. 00CD:127 Normal [facility] ED Clinical Summaryon 2022 ED Clinical Summary Normal Stefania wu [facility] ED Patient Education Noteon 11-22-2022 ED Patient Education Note Normal [facility] ED Patient Summaryon 023 ED Patient Summary Normal [facility] Neurology Forms- Texton Neurology Forms- Text [id number]#1. 00CD:127 Normal [facility] EEGon 09-11-2022 EEG [facility] Comment on above: Result Comment: Elec tronically Signed By: Jonathan Powell DO\.br\Date and Time Signed: 09/11/22 10:41 EDT Consent for Treatmenton 08-19 Consent for Treatment [id number]#1.0 0CD:127 Normal [facility] Physician Orderon 09-03-2022 Physician Order [id number]#1.0 0CD:127 Normal [facility] VC CONSULT FOLLOWUPon 2022 VC CONSULT FOLLOWUP Patient: ITZEL CEDILLO Exam Date: 08/08/2022 : 1950 Gender:F Ordering : DR ALFRED UMAÑA M.D. Admission #: [id number] Family : Order #: [id number] CLICK HERE TO VIEW EXAM RADIOLOGY REPORT [...] Umaña MD on 08/08/2022 at 10:59 Normal [facility] EXT VENOUS LT LIMITEDon 0 08-08-2022 VC EXT VENOUS LT LIMITED Patient: LEELEE CEDILLO Exam Date: 08/08/2022 : 1950 Gender:F Ordering : DR ALFRED UMAÑA M.D. Admission #: [id number] Family : Order #: [id number] CLICK HERE TO VIEW EXAM RADIOLOGY REPORT [...] Umaña MD on 08/08/2022 at 09:43 Normal [facility] Coding Summary.on 07-29-2022 Coding Summary. Normal [facility] Insurance Correspondenceon 0 07-29-2022 Insurance Correspondence [id number]#1.0 0CD:127 Normal [facility] Insurance Correspondence Off iceon 07-29-2022 Insurance Correspondence Office [id number]#1. 00CD:127 Normal [facility] Discharge Instructionson Discharge Instructions [id number]#1. 00CD:127 Normal [facility] IhrB6stv 07-28-2022 HbA1c (Bld) [Mass fraction] 5.3 % Normal <=5.9 [facility] Comment on above: Performed By: #### 2 546274, 8929088, 6584547, 4200404, [id number], [id number] ####[facility] [address] [place] [address] Insurance Correspondenceon 0 07-28-2022 Insurance Correspondence [id number]#1. 00CD:127 Normal [facility] C. diff by PCRon 07-27-2022 Clostridium difficile by PCR Negative Normal Negative [facility] Comment on above: Order Comment: Order added by Discern Expert. Result Comment: This test result should be correlated with clinical presentations and medical history by a healthcare provider to determine its clinical significance. Performed By: #### 3 [id number], [id number], [id number] ####[facility] [address] [place] [address] CDiff PCRon 07-27-2022 Cdiff Specimen Acceptable Acceptable Normal [facility] Comment on above: Performed By: #### 3 [id number], [id number], [id number] ####[facility] [address] [place] [address] Order Cancelled No, PCR to follow Normal [facility] Comment on above: Performed By: #### 3 [id number], [id number], [id number] ####[facility] [address] [place] [id number] CHEMISTRYOrdered By: SYSTEM SYSTEM on 07-27-2022 Anion [...] Noteon 07-28-19 Consultation Note Normal [facility] Comment on above: Result Comment: Elec tronically Signed By: Rachel MEEHAN, Smita Reardon\.br\Date and Time Signed: 07/27/22 07:14 EDT\.br\Electronically Co-Signed By: Jonathan Powell DO\.br\Date and Time Co-Signed: 07/27/22 10:23 EDT EMS Documentationon 07-28-19 EMS Documentation Normal [facility] EMS Documentation Normal [facility] EMS Documentation Normal [facility] Enteric Panel by PCRon 07-27 C. coli+jejuni+upsaliens is DNA VIVIANA+non-probe Ql (Stl) Not detected Normal [facility] Comment on above: Result Comment: Test ing was performed utilizing reverse horticultural manager (RT), polymerase chain reaction (PCR), and [...] nulcleic acid test. Performed By: #### 3 [id number], [id number], [id number] ####[place] [address] [place] [address] E. coli stx1+stx2 genes VIVIANA+non-probe Ql (Stl) Negative Normal [facility] Comment on above: Performed By: #### 3 [id number], [id number], [id number] ####[place] [address] [place] [address] Enteric Panel Intrl QC Pass Normal [facility] Comment on above: Result Comment: Test ing was performed utilizing reverse horticultural manager (RT), polymerase chain reaction (PCR), and [...] 1 and 2. Performed By: #### 3 [id number], [id number], [id number] ####[place] [id number] Norovirus genogroup I+II RNA VIVIANA+non-probe Ql (Stl) Not detected Normal [facility] Comment on above: Performed By: #### 3 [id number], [id number], [id number] ####[place] [id number] Rotavirus A RNA VIVIANA+non-probe Ql (Stl) Not detected Normal [facility] Comment on above: Performed By: #### 3 [id number], [id number], [id number] ####[place] [address] S. enterica+bongori DNA VIVIANA+non-probe Ql (Stl) Not detected Normal [facility] Comment on above: Result Comment: This test result should be correlated with clinical presentations and medical history by a healthcare provider to determine its clinical significance. Performed By: #### 3 [id number], [id number], [id number] ####[place] [id number] Shigella species+EIEC invasion plasmid antigen H ipaH gene VIVIANA+non-probe Ql (Stl) Not detected Normal [facility] Comment on above: Performed By: #### 3 [id number], [id number], [id number] ####[place] [address] V. cholerae+parahaemolyt icus+vulnificus DNA VIVIANA+non-probe Ql (Stl) Not detected Normal [facility] Comment on above: Performed By: #### 3 [id number], [id number], [id number] ####[facility] [address] [place] [address] Y. enterocolitica DNA VIVIANA+non-probe Ql (Stl) Not detected Normal [facility] Comment on above: Performed By: #### 3 [id number], [id number], [id number] ####[facility] [address] [place] [address] Free T4on 07-27-2022 Free T4 [Mass/Vol] 1.91 ng/dL High 0.58-1.64 [facility] Comment on above: Order Comment: Free T4 added by Discern Rule due to a TSH result of <0.34 or >5.60. Performed By: #### 2 504432, 2758214, 2560295, 0903913, 214209022, 85491862 ####[facility] [address] [place] [address] HEMATOLOGYOrdered By: Tonya Martin on 07-27-2022 WBC corrected for nucl RBC Auto (Bld) [#/Vol] 7.8 E9/L Normal 4.0 - 11.0 E9/L [facility] HemeAutoSS Inpatient Clinical Summaryon 07-27-2022 Inpatient Clinical Summary Normal [facility] Inpatient Patient Summaryon 07-27-2022 Inpatient Patient Summary Normal [facility] Inpatient Patient Summary Normal [facility] Interdisciplinary Note - Oumar e Manageron 07-27-2022 Interdisciplinary Note - Care Services Manager Normal [facility] Comment on above: Result Comment: Elec tronically Signed By: Tonya Matias.alicja\Date and Time Signed: 07/27/22 12:04 EDT Interdisciplinary Note - Pipe n 07-27-2022 Interdisciplinary Note - OT Normal [facility] Interdisciplinary Note - PTo n 07-27-2022 Interdisciplinary Note - PT PT eval completed; pt scores 16/24 on the AM-PAC 6-Clicks 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 Pt is able to safely perform bed <> chair transfers as she was doing prior to admission and has no further PT needs at this time. Normal [facility] Lipid Panelon 07-27-2022 Cholesterol in LDL [Mass/Vol] 91 mg/dL Normal <=129 [facility] Comment on above: Performed By: #### 2 347814, 5616771, 6058129, 6025353, 100788391, 48496204 ####[facility] [address] [place] [address] Cholesterol [Mass/Vol] 160 mg/dL Normal 120-200 [facility] Comment on above: Performed By: #### 2 937006, 3574322, 5848477, 0136794, 356424445, 78379126 ####[facility] [address] [place] [address] Cholesterol in HDL [Mass/Vol] 52 mg/dL Invalid Interpretation Code [facility] Comment on above: Result Comment: HDL > or equal to 60 mg/dL: Low cardiovascular riskHDL < 40 mg/dL : High cardiovascular risk Performed By: #### 2 684654, 3077964, 1937795, 8268830, 891075280, 76152561 ####[facility] [address] [place] [address] Cholesterol in VLDL [Mass/Vol] 17 mg/dL Normal 7-40 [facility] Comment on above: Performed By: #### 2 585570, 2827475, 6017487, 5650150, 971997838, 94784584 ####[facility] [address] [place] [address] Triglyceride [Mass/Vol] 83 mg/dL Normal <=149 [facility] Comment on above: Performed By: #### 2 458291, 6582304, 8317939, 4386685, 232517804, 71452267 ####[facility] [address] [place] [address] Lyteson 07-27-2022 Anion gap [Moles/Vol] 9 mmol/L Normal 6-16 [facility] Comment on above: Performed By: #### 2 922268, 0498681, 0798340, 9340016, 990285782, 82104921 ####[facility] [address] [place] [address] Chloride [Moles/Vol] 106 mmol/L Normal 101-111 [facility] Comment on above: Performed By: #### 2 212893, 1437707, 0474539, 3432502, 646763704, 79765062 ####[facility] [address] [place] [address] CO2 [Moles/Vol] 26 mmol/L Normal 21-31 [facility] Comment on above: Performed By: #### 2 592304, 8321034, 4250116, 5710235, 262460232, 05008174 ####[facility] [address] [place] [address] Potassium [Moles/Vol] 4.0 mmol/L Normal 3.5-5.3 [facility] Comment on above: Performed By: #### 2 163581, 0649599, 8597572, 7391240, 169355060, 43884769 ####[facility] [address] [place] [address] Sodium [Moles/Vol] 137 mmol/L Normal 135-145 [facility] Comment on above: Performed By: #### 2 425235, 4439208, 9358888, 7244322, 012175606, 00536506 ####[facility] [address] [place] [address] MRA Head w/o Contraston MRA Head w/o Contrast Normal [facility] MRI Brain w/o Contraston MRI Brain w/o Contrast Normal [facility] Monitor Recordon 07-27-2022 Monitor Record [id number]#1. 00CD:127 Normal [facility] Monitor Record [id number]#1. 00CD:127 Normal [facility] Patient Education - Texton 0 07-27-2022 Patient Education - Text Normal [facility] RAD - MRI Screening Formon 0 07-27-2022 RAD - MRI Screening Form [id number]#1. 00CD:127 Normal [facility] TSH With T4fr Reflexon 07-27 TSH Qn 0.16 m[IU]/L Low 0.34-5.60 [facility] Comment on above: Performed By: #### 2 994978, 0145326, 4270265, 1701442, 554655454, 38570280 ####[facility] [address] [place] [address] Troponin 9 Hr.on 07-27-2022 Troponin I.cardiac [Mass/Vol] 6.70 pg/mL Low 10.10-27.10 [facility] Comment on above: Result Comment: The 95% CI (Confidence Interval) PPV (Positive Predictive Value) for myocardial infarction in females is 38 pg/mL, in males 51 pg/mL. The results should be used in conjunction with clinical conditions of myocardial infarction.(Access High Sensitivity Troponin I Instructions For Use, [employer], November 2017) Performed By: #### 1 [id number] ####[facility] [address] [place] [address] WBCon 07-27-2022 WBC corrected for nucl RBC Auto (Bld) [#/Vol] 7.8 E9/L Normal 4.0-11.0 [facility] Comment on above: Performed By: #### 2 621659, 8719160, 1369808, 4121889, 927354605, 02906703 ####[facility] [address] [place] [address] Auto Diffon 07-26-2022 Basophils/100 WBC (Bld) 0.5 % Normal 0.0-2.0 [facility] Comment on above: Order Comment: Order Added by Discern Expert. Performed By: #### 2 399871, 6018758, 4120197, 2805321, 84786569, 51043219 ####[facility] [address] [place] [address] Basophils/Leukocytes Auto (Bld) [Pure # fraction] 0.1 E9/L Normal 0.0-0.2 [facility] Comment on above: Order Comment: Order Added by Discern Expert. Performed By: #### 2 366148, 0614925, 3789229, 7989339, 94323449, 17834181 ####[facility] [address] [place] [address] Eosinophils/100 WBC (Bld) 0.5 % Normal 0.0-8.0 [facility] Comment on above: Order Comment: Order Added by Discern Expert. Performed By: #### 2 825815, 8807915, 9581352, 1426266, 44499433, 62833427 ####[address] [address] Eosinophils/Leukocyte s Auto (Bld) [Pure # fraction] 0.1 E9/L Normal 0.0-0.5 [facility] Comment on above: Order Comment: Order Added by Ham Expert. Performed By: #### 2 660808, 3011423, 2393017, 2758488, 35161659, 51547621 ####[address] [address] Lymphocytes/100 WBC (Bld) 14.5 % Normal 14.0-50.0 [facility] Comment on above: Order Comment: Order Added by Ham Expert. Performed By: #### 2 514815, 0113756, 8077117, 1935698, 99948790, 91978525 ####[address] [address] Lymphocytes/Leukocyte s Auto (Bld) [Pure # fraction] 2.1 E9/L Normal 1.0-4.0 [facility] Comment on above: Order Comment: Order Added by Ham Expert. Performed By: #### 2 107968, 1733129, 5493284, 7628338, 59711399, 10757886 ####[address] [place] [address] Monocytes/100 WBC (Bld) 6.5 % Normal 4.0-14.0 [facility] Comment on above: Order Comment: Order Added by Discern Expert. Performed By: #### 2 435742, 9991497, 3076973, 7783128, 44625157, 26471813 ####[facility] [address] [place] [address] Monocytes/Leukocytes Auto (Bld) [Pure # fraction] 0.9 E9/L Normal 0.2-1.0 [facility] Comment on above: Order Comment: Order Added by Discern Expert. Performed By: #### 2 914600, 6788655, 9747844, 3562543, 29796976, 82527445 ####[facility] [address] [place] [address] Neutrophils/100 WBC (Bld) 78.0 % High 36.0-75.0 [facility] Comment on above: Order Comment: Order Added by Discern Expert. Performed By: #### 2 607525, 8772863, 7388662, 8176700, 01705143, 00132894 ####[facility] [address] [place] [address] Neutrophils/Leukocyte s Auto (Bld) [Pure # fraction] 11.4 E9/L High 2.0-7.5 [facility] Comment on above: Order Comment: Order Added by Discern Expert. Performed By: #### 2 087863, 1891256, 3682288, 1126112, 89381364, 57576753 ####[facility] [address] [place] [address] BMPon 07-26-2022 Creatinine [Mass/Vol] 0.8 mg/dL Normal 0.5-1.3 [facility] Comment on above: Performed By: #### 2 649431, 1025250, 8263461, 5504608, 40735936, 64633759 ####[facility] [address] [place] [address] Urea nitrogen [Mass/Vol] 11 mg/dL Normal 5-21 [facility] Comment on above: Performed By: #### 2 467894, 0132686, 6106502, 1693435, 96536669, 06288622 ####[facility] [address] [place] [address] Urea nitrogen/Creatinine [Mass ratio] 14 No Units Normal 10-20 [facility] Comment on above: Performed By: #### 2 725869, 7352420, 3568451, 7780349, 42947141, 16475957 ####[facility] [address] [place] [address] Anion gap [Moles/Vol] 13 mmol/L Normal 6-16 [facility] Comment on above: Performed By: #### 2 929651, 0266899, 6768604, 2508756, 34667177, 76970108 ####[facility] [address] [place] [address] Calcium [Mass/Vol] 9.3 mg/dL Normal 8.9-11.1 [facility] Comment on above: Performed By: #### 2 628354, 4075567, 7344860, 0307964, 22891330, 49241245 ####[facility] [address] [place] [address] Chloride [Moles/Vol] 101 mmol/L Normal 101-111 [facility] Comment on above: Performed By: #### 2 807170, 5853853, 5755164, 4697108, 27516682, 15242082 ####[facility] [address] [place] [address] CO2 [Moles/Vol] 27 mmol/L Normal 21-31 [facility] Comment on above: Performed By: #### 2 482838, 5690493, 8721463, 5497805, 79786020, 65034297 ####[facility] [address] [place] [address] Glucose [Mass/Vol] 88 mg/dL Normal 55-199 [facility] Comment on above: Result Comment: If t his glucose result represents a fasting glucose, interpretation should refer to the following reference range: 55-99 mg/dL Performed By: #### 2 878981, 8697624, 1455827, 7797152, 22789292, 79422098 ####[facility] [address] [place] [address] Potassium [Moles/Vol] 3.6 mmol/L Normal 3.5-5.3 [facility] Comment on above: Performed By: #### 2 086937, 7083480, 8420321, 8965301, 65957454, 08656684 ####[facility] [address] [place] [address] Sodium [Moles/Vol] 137 mmol/L Normal 135-145 [facility] Comment on above: Performed By: #### 2 691494, 6957055, 1206130, 5733366, 65568700, 09524608 ####[address] [address] CBC w/ Auto Diffon 3 Erythrocyte distribution width (RBC) [Ratio] 13.9 % Normal 10.9-14.2 [facility] Comment on above: Performed By: #### 2 143222, 9807919, 0165018, 9889048, 65543627, 96191611 ####[facility] [address] [place] [address] Hematocrit (Bld) [Volume fraction] 47.0 % High 34.0-46.0 [facility] Comment on above: Performed By: #### 2 067663, 9240169, 5780246, 1445777, 29855164, 14659625 ####[facility] [address] [place] [address] Hemoglobin (Bld) [Mass/Vol] 15.3 g/dL Normal 12.0-16.0 [facility] Comment on above: Performed By: #### 2 800035, 8680942, 5643339, 3983343, 15615033, 05558785 ####[facility] [address] [place] [address] MCH (RBC) [Entitic mass] 29.2 pg Normal 27.0-34.0 [facility] Comment on above: Performed By: #### 2 465522, 2453939, 5346570, 1045364, 27645384, 82897284 ####[address] [address] MCHC (RBC) [Mass/Vol] 32.7 g/dL Normal 31.4-36.0 [facility] Comment on above: Performed By: #### 2 326016, 7714914, 9102237, 6438555, 02430488, 16761351 ####[address] [address] MCV (RBC) [Entitic vol] 89.3 fL Normal 80.0-100.0 [facility] Comment on above: Performed By: #### 2 383596, 4036309, 5730967, 2006720, 51511546, 63151377 ####[address] [address] Platelet mean volume (Bld) [Entitic vol] 6.7 fL Normal 6.4-10.8 [facility] Comment on above: Performed By: #### 2 615964, 7345306, 2041463, 6142809, 96917373, 81169595 ####[address] [address] Platelets (Bld) [#/Vol] 324.0 E9/L Normal 150.0-500.0 [facility] Comment on above: Performed By: #### 2 998117, 6561210, 2711085, 7227991, 86684697, 47405275 ####[address] [address] RBC (Bld) [#/Vol] 5.3 E12/L Normal 4.3-5.9 [facility] Comment on above: Performed By: #### 2 013456, 7881366, 8937445, 7303801, 54670392, 16019299 ####[facility] [address] [place] [address] WBC corrected for nucl RBC Auto (Bld) [#/Vol] 14.6 E9/L High 4.0-11.0 [facility] Comment on above: Performed By: #### 2 519411, 9479101, 5696876, 1548437, 58056966, 62706336 ####[facility] [address] [place] [address] CHEMISTRYOrdered By: SYSTEM SYSTEM on 07-26-2022 Troponin [...] mg/dL Normal 1.3 - 2 .4 mg/dL [facility] Remisol Potassium [Moles/Vol] 3.6 mmol/L Normal 3.5 - 5.3 mmol/L [facility] Remisol Sodium [Moles/Vol] 137 mmol/L Normal 135 - 145 mmol/L [facility] Remisol Urea nitrogen [Mass/Vol] 11 mg/dL Normal 5 - 21 mg/dL [facility] Remisol Urea nitrogen/Creatinine [Mass ratio] 14 mg/mg Normal 10 - 20 [facility] Remisol CHEMISTRYOrdered By: Lab ROP User on 07-26-2022 Glucose [Mass/Vol] 106 mg/dL High 55 - 99 mg/dL [facility] POC Subsection Comment on above: Result Comment: Parker wills RN/ POC Device SN [id number] Invalid Interpretation Code [facility] POC Subsection POC User ID [id number] Invalid Interpretation Code [facility] POC Subsection POC Username SHANKAR ABARCA Invalid Interpretation Code [facility] POC Subsection CT Head or Brain w/o Contras ton 07-26-2022 CT Head or Brain w/o Contrast Normal [facility] Capillary Glucose POCon Glucose [Mass/Vol] 106 mg/dL High 55-99 [facility] Comment on above: Result Comment: Parker wills RN/ Performed By: #### 2 [id number] ####[facility] [address] [place] [address] Consent for Treatmenton Consent for Treatment [id number] 0CD:127 Normal [facility] ED Clinical Summaryon 2022 ED Clinical Summary Normal [facility] ED Note-Physicianon 07-27-19 ED Note-Physician Normal [facility] Comment on above: Result Comment: Elec tronically Signed By: Yaritza Cedeño PA-C\.br\Date and Time Signed: 07/26/22 14:17 EDT\.br\Electronically Co-Signed By: Lance Wu M.D.\.br\Date and Time Co-Signed: 07/26/22 15:36 EDT ED Patient Education Noteon 07-26-2022 ED Patient Education Note Normal [facility] ED Patient Summaryon 023 ED Patient Summary Normal [facility] HEMATOLOGYOrdered By: SYSTEM SYSTEM on [...] 14.6 E9/L High 4.0 - 11.0 E9/L [facility] HemeAutoSS Magnesiumon 07-26-2022 Magnesium [Mass/Vol] 2.0 mg/dL Normal 1.3-2.4 [facility] Comment on above: Performed By: #### 2 925477, 2988594, 6672599, 7501724, 05839292, 94262016 ####[facility] [address] [place] [address] Monitor Recordon 07-26-2022 Monitor Record [id number]. 00CD:127 Normal [facility] Pre-Arrival Noteon 3 Pre-Arrival Note Normal [facility] Troponin 0 Hr.on 07-26-2022 Troponin I.cardiac [Mass/Vol] 6.60 pg/mL Low 10.10-27.10 [facility] Comment on above: Order Comment: pt st ill in imaging, will check back later [id number] 07/26/2022 12:32:06 EDT Result Comment: The 95% CI (Confidence Interval) PPV (Positive Predictive Value) for myocardial infarction in females is 38 pg/mL, in males 51 pg/mL. The results should be used in conjunction with clinical conditions of myocardial infarction.(Access High Sensitivity Troponin I Instructions For Use, Christy Larry, November 2017) Performed By: #### 2 261295, 5280306, 8684253, 2612797, 29838068, 35997905 ####[facility] [address] [place] [address] Troponin 3 Hr.on 07-26-2022 Troponin I.cardiac [Mass/Vol] 6.00 pg/mL Low 10.10-27.10 [facility] Comment on above: Result Comment: The 95% CI (Confidence Interval) PPV (Positive Predictive Value) for myocardial infarction in females is 38 pg/mL, in males 51 pg/mL. The results should be used in conjunction with clinical conditions of myocardial infarction.(Access High Sensitivity Troponin I Instructions For Use, [email or web address], November 2017) Performed By: #### 1 4174369 ####[address] [address] Troponin 6 Hr.on 07-26-2022 Troponin I.cardiac [Mass/Vol] 5.40 pg/mL Low 10.10-27.10 [facility] Comment on above: Result Comment: The 95% CI (Confidence Interval) PPV (Positive Predictive Value) for myocardial infarction in females is 38 pg/mL, in males 51 pg/mL. The results should be used in conjunction with clinical conditions of myocardial infarction.(Access High Sensitivity Troponin I Instructions For Use, [employer], November 2017) Performed By: #### 1 5461693 ####[address] [address] UA With Cult Reflexon 2022 Bacteria LM Ql (Urine sed) TRACE Normal Trace [facility] Comment on above: Performed By: #### 1 1476309 ####[address] [address] Bilirubin Ql (U) Negative Normal Negative [facility] Comment on above: Performed By: #### 1 2192442 ####[address] [address] Clarity (U) CLEAR Normal Clear [facility] Comment on above: Performed By: #### 1 9958800 ####[address] [address] Color (U) YELLOW Normal Yellow [facility] Comment on above: Performed By: #### 1 4346881 ####[facility] [address] [place] [address] Epithelial cells.squamous LM.HPF (Urine sed) [#/Area] 3-4 Normal 0-2 [facility] Comment on above: Performed By: #### 1 3033114 ####[address] [place] [address] Glucose Test strip (U) [Mass/Vol] Negative Normal Negative [facility] Comment on above: Performed By: #### 1 6250610 ####[address] [address] Hemoglobin Ql (U) Negative Normal Negative [facility] Comment on above: Performed By: #### 1 6031900 ####[address] [address] Ketones (U) [Mass/Vol] Negative Normal Negative [facility] Comment on above: Performed By: #### 1 1103455 ####[address] [address] [place].plasma/Lithiu m.RBC (Bld) [Mass ratio] 0-3 Normal 0-3 [facility] Comment on above: Performed By: #### 1 8098879 ####[address] [address] Nitrite Ql (U) Negative Normal Negative [facility] Comment on above: Performed By: #### 1 2176200 ####[address] [address] pH (U) 6.5 [pH] Invalid Interpretation Code 5.0-9.0 [facility] Comment on above: Performed By: #### 1 2954504 ####[address] [address] Protein (U) [Mass/Vol] Negative Normal Negative [facility] Comment on above: Performed By: #### 1 7754733 ####[address] [address] Specific gravity (U) [Rel density] <=1.005 Invalid Interpretation Code 1.005-1.030 [facility] Comment on above: Performed By: #### 1 9986964 ####[facility] [address] [place] [address] Type of Urine collection method Clean Catch Normal [facility] Comment on above: Performed By: #### 1 2652009 ####[facility] [address] Urobilinogen Qn (U) 0.2 {Malu'U}/dL Normal 0.0-1.0 [facility] Comment on above: Performed By: #### 1 6879176 ####[facility] [address] [place] [address] WBC Auto Ql (U) TRACE Abnormal Negative [facility] Comment on above: Performed By: #### 1 2306114 ####[place] [id number] WBC LM.HPF (Urine sed) [#/Area] 0-5 Normal 0-5 [facility] Comment on above: Performed By: #### 1 1928762 ####[place] [id number] URINALYSISOrdered By: Katerina Parker on 07-26-2022 Bacteria [...] PM) Normal Negative [facility] UA Auto SS [place].plasma/Lithiu m.RBC (Bld) [Mass ratio] 0-3 /HPF Normal [...] FT UA Auto SS Urobilinogen Qn (U) 0.0995853 {Malu'U}/dL Normal 0.0 - 1.0 EU/dL [facility] UA Auto SS WBC Auto Ql (U) Trace *ABN* (07/26/22 4:49 PM) Invalid Interpretation Code Negative [facility] UA Auto SS WBC LM.HPF (Urine sed) [#/Area] 0-5 /HPF Normal 0-5/HPF [facility] UA Auto SS XR Chest Single Viewon 07-26 XR Chest Single View Normal [facility] eGFRon 07-26-2022 GFR/1.73 sq M.predicted among blacks MDRD (S/P/Bld) [Vol rate/Area] mL/min/{1.73_m2} Normal >=59 [facility] Comment on above: Order Comment: Order added by Discern Expert. Result Comment: eGFR is race adjusted. AA=. Performed By: #### 2 418575, 6539031, 6361955, 6174323, 04890669, 91312782 ####[facility] [address] [place] [address] GFR/1.73 sq M.predicted among non-blacks MDRD (S/P/Bld) [Vol rate/Area] mL/min/{1.73_m2} Normal >=59 [facility] Comment on above: Order Comment: Order added by Discern Expert. Result Comment: Table Lever Operator gina kidney disease could be indicated at eGFR's of less than 60 mL/min/1.73m2. Kidney failure is indicated at less than 15 mL/min/1.73m2. Performed By: #### 2 755108, 5529382, 1427298, 7309239, 42145310, 58506445 ####[facility] [address] [place] [address] SURGICAL PATH REPORTon 07-25 SURGICAL PATH REPORT [facility] Department of Pathology [address] [place] [phone] Name: LEELEE CEDILLO : 1950 [facility] [id number] Number: [facility] : n: Admit 71 years Attending ADELE FLEMING Age: Provider: Ordering ADELE FLEMING Provider: Consulti Surgical Pathology Report ng: ACCESSION: COLLECTED DATE/TIME: RECEIVED DATE/TIME: PATHOLOGIST: [id number] 07/24/2022 12:16 EDT 07/24/2022 12:16 EDT MICHELINE [...] 07/24/2022 Tissue pathology report for: [facility], [address] [place] [address]; ____ ____ Print 07/25/2022 15:48 EDT Number: Date/Time: [facility] Department of Pathology [address] [place], [place] [address] [phone] Name: LEELEE CEDILLO : 1950 [employer] [id number] Number: Gender Female [employer] [facility]ALDO : n: Admit 71 years Attending ADELE FLEMING Age: Provider: Ordering ADELE FLEMING Provider: Consulti Surgical Pathology Report ng: ACCESSION: COLLECTED DATE/TIME: RECEIVED DATE/TIME: PATHOLOGIST: [id number] 07/24/2022 12:16 EDT 07/24/2022 12:16 EDT LEENA RUFF, MICHELINE Gross Description PATHOLOGY SERVICES PROVIDED BY [email or web address] (CLIA #[id number]) in cooperation with [facility] at [address] [place] [address] ( CLIA #[id number]) Microscopic Diagnosis The final diagnosis is based on a microscopic exam of business representative sections. Codes CPT CODE: 87937 ____ ____ Print 07/25/2022 15:48 EDT Number: Date/Time: [facility] Comment on above: Performed By: #### 9 [id number] #### [facility] Laboratory Services [address] [place] [address] Collection Analyst: Jared Oh MD POINT OF CARE GLUCOSEon 04-0 Glucose [Mass/Vol] 114 mg/dL Critically high 74-106 [facility] Comment on above: Performed By: #### P OCGLUC #### [facility] [address] [address] [address] Salvador Yung Glucose [Mass/Vol] 112 mg/dL Critically high 74-106 [facility] Comment on above: Performed By: #### P OCGLUC #### [facility] [address] [address] [address] Salvador Yung EMS Documentationon 07-21-19 EMS Documentation Normal [facility] Covid-19 PCR (CVDTBH)on 06-20 SARS-CoV-2 (COVID-19) RNA VIVIANA+probe Ql (Unsp spec) Not detected Normal NOT DETECTED [facility] Comment on above: Result Comment: This test is not yet approved or cleared by the [place] FDA. When there are no FDA-approved or cleared tests available, and other criteria are met, FDA can make tests available under an emergency access mechanism called an Emergency Use Authorization (EUA). The EUA for this test is supported by the Computer Repair Instructor of Health and Human Service's (HHS's) declaration [...] SARS-CoV-2. Performed By: #### C VDTBH #### [facility] [address] [place], [place] [address] Dr. Salvador Yung PROF CHEM 8 (BAS METB)on Anion gap [Moles/Vol] 12.0 mmol/L Normal [facility] Comment on above: Performed By: #### B MP #### [facility] [address] [address] [address] Salvador Yung Calcium [Mass/Vol] 9.4 mg/dL Normal 8.5-10.1 [facility] Comment on above: Performed By: #### B MP #### [facility] [address] [address] [address] Salvador Yung Chloride [Moles/Vol] 100 mmol/L Normal 98-107 [facility] Comment on above: Performed By: #### B MP #### [facility] [address] [address] [address] Salvador Yung CO2 [Moles/Vol] 29.8 mmol/L Normal 21.0-32.0 [facility] Comment on above: Performed By: #### B MP #### [facility] [address] [address] [address] Salvador Yung Creatinine [Mass/Vol] 0.91 mg/dL Normal 0.55-1.02 [facility] Comment on above: Performed By: #### B MP #### [facility] [address] [address] [address] Salvador Yung EGFR-AF [place] >60 Normal >=60 [facility] Comment on above: Performed By: #### B MP #### [facility] [address] [address] [address] Salvador Yung EGFR-NON AF [place] >60 Normal >=60 [facility] Comment on above: Performed By: #### B MP #### [facility] [address] [address] [address] Salvador Yung Glucose [Mass/Vol] 82 mg/dL Normal 74-106 [facility] Comment on above: Performed By: #### B MP #### [facility] [address] [address] [address] Salvador Yung Potassium [Moles/Vol] 3.8 mmol/L Normal 3.5-5.1 [facility] [place] Comment on above: Performed By: #### B MP #### [facility] [address] [address] [address] Salvador Yung Sodium [Moles/Vol] 138 mmol/L Normal 136-145 [facility] Comment on above: Performed By: #### B MP #### [facility] [address] [address] [address] Salvador Yung Urea nitrogen [Mass/Vol] 12.0 mg/dL Normal 7.0-18.0 [facility] [place] Comment on above: Performed By: #### B MP #### [facility] [address] [address] [address] Salvador Yung Urea nitrogen/Creatinine [Mass ratio] 13.2 mg/mg Normal [facility] [place] Comment on above: Performed By: #### B MP #### [facility] [address] [address] [address] Salvador Yugn VC INJ SCL JESSICA YARN REWINDER VEINSon 0 07-01-2022 VC INJ SCL JESSICA YARN REWINDER VEINS Patient: LEELEE CEDILLO Exam Date: 07/01/2022 : 1950 Gender:F Ordering : DR ALFRED UMAÑA M.D. Admission #: [id number] Family : Order #: [id number] CLICK HERE TO VIEW EXAM RADIOLOGY REPORT [...] Lobato M.D. on 07/01/2022 at 15:22 Normal [facility] [place] VC CONSULT FOLLOWUPon 2022 VC CONSULT FOLLOWUP Patient: ITZEL CEDILLO Exam Date: 06/19/2022 : 1950 Gender:F Ordering : DR ALFRED UMAÑA M.D. Admission #: [id number] Family : Order #: [id number] CLICK HERE TO VIEW EXAM RADIOLOGY REPORT [...] Umaña MD on 06/19/2022 at 14:17 Normal [facility] [place] VC EXT VENOUS LT LIMITEDon 0 06-19-2022 VC EXT VENOUS LT LIMITED Patient: LEELEE CEDILLO Exam Date: 06/19/2022 : 1950 Gender:F Ordering : DR ALFRED UMAÑA M.D. Admission #: [id number] Family : Order #: [id number] CLICK HERE TO VIEW EXAM RADIOLOGY REPORT [...] Umaña MD on 06/19/2022 at 14:15 Normal [facility] [place] VC INJ FOAM SCLERO W US MLTI on 06-13-2022 VC INJ FOAM SCLERO W US MLTI Patient: LEELEE CEDILLO Exam Date: 06/13/2022 : 1950 Gender:F Ordering : DR ALFRED UMAÑA M.D. Admission #: [id number] Family : Order #: [id number] CLICK HERE TO VIEW EXAM RADIOLOGY REPORT [...] duple (more content not included)... Normal [facility] VC CONSULT FOLLOWUPon 2022 VC CONSULT FOLLOWUP Patient: ITZEL CEDILLO Exam Date: 06/10/2022 : 1950 Gender:F Ordering : DR ALFRED UMAÑA M.D. Admission #: [id number] Family : Order #: [id number] CLICK HERE TO VIEW EXAM RADIOLOGY REPORT [...] Lobato M.D. on 06/10/2022 at 12:36 Normal [facility] [place] VC EXT VENOUS RT LIMITEDon 0 06-10-2022 VC EXT VENOUS RT LIMITED Patient: LEELEE CEDILLO Exam Date: 06/10/2022 : 1950 Gender:F Ordering : DR ALFRED UMAÑA M.D. Admission #: [id number] Family : Order #: [id number] CLICK HERE TO VIEW EXAM RADIOLOGY REPORT [...] Lobato M.D. on 06/10/2022 at 12:33 Normal [facility] [place] VC INJ FOAM SCLERO W US MLTI on 06-03-2022 VC INJ FOAM SCLERO W US MLTI Patient: LEELEE CEDILLO Exam Date: 06/03/2022 : 1950 Gender:F Ordering : DR ALFRED UMAÑA M.D. Admission #: [id number] Family : Order #: [id number] CLICK HERE TO VIEW EXAM RADIOLOGY REPORT PROCEDURE: VEIN CENTER INJECTION FOAM SCLEROSING SOLUTION WITH ULTRASOUND MULTIPLE VEINS COMPARISON: None. Pre-operative Diagnosis: CEAP class C6 venous insufficiency with pain, tenderness, edema and incompetent right small saphenous vein and felt puller vein, incompetent varicose veins, venous insufficiency right leg secondary to venous incompetence Post-operative Diagnosis: CEAP class C6 venous insufficiency with pain, tenderness, edema and incompetent right small saphenous vein and felt puller vein, incompetent varicose veins, venous insufficiency right [...] l (more content not included)... Normal [facility] VC CONSULT FOLLOWUPon 2022 VC CONSULT FOLLOWUP Patient: ITZEL CEDILLO Exam Date: 05/28/2022 : 1950 Gender:F Ordering : DR ALFRED UMAÑA M.D. Admission #: [id number] Family : Order #: [id number] CLICK HERE TO VIEW EXAM RADIOLOGY REPORT [...] Umaña MD on 05/28/2022 at 11:44 Normal [facility] [place] VC EXT VENOUS RT LIMITEDon 0 05-28-2022 VC EXT VENOUS RT LIMITED Patient: LEELEE CEDILLO Exam Date: 05/28/2022 : 1950 Gender:F Ordering : DR ALFRED UMAÑA M.D. Admission #: [id number] Family : Order #: [id number] CLICK HERE TO VIEW EXAM RADIOLOGY REPORT [...] extends to distal lower leg. Thrombus in felt puller distal medial lower leg 2.8 mm from [...] MD on 05/28/2022 at 11:30 Normal [facility] CBC AUTO DIFFon 05-21-2022 BASO # 0.1 103/ul Normal 0.0-0.1 [facility] Comment on above: Performed By: #### C BC #### [facility] [address] [address] [address] Salvador Yung Basophils/100 WBC (Bld) 0.6 % Normal 0.2-2.0 [facility] Comment on above: Performed By: #### C BC #### [facility] [address] [place] [address] Dr. Salvador Yung EO # 0.1 103/ul Normal 0.0-0.7 [facility] Comment on above: Performed By: #### C BC #### [facility] [address] [place] [address] Dr. Salvador Yung Eosinophils/100 WBC (Bld) 0.6 % Critically low 0.9-7.0 [facility] Comment on above: Performed By: #### C BC #### [facility] [address] [place] [address] Dr. Salvador Yung Erythrocyte distribution width (RBC) [Ratio] 12.4 % Normal 11.0-15.0 [facility] Comment on above: Performed By: #### C BC #### [facility] [address] [place] [address] Dr. Salvador Yung Hematocrit (Bld) [Volume fraction] 43.1 % Normal 36.0-48.0 [facility] Comment on above: Performed By: #### C BC #### [facility] [address] [place] [address] Dr. Salvador Yung Hemoglobin (Bld) [Mass/Vol] 13.8 g/dL Normal 12.0-16.0 [facility] Comment on above: Performed By: #### C BC #### [facility] [address] [place] [address] Dr. Salvador Yung IG # 0.06 10e3/ul Critically high 0.00-0.03 [facility] Comment on above: Performed By: #### C BC #### [facility] [address] [place] [address] Dr. Salvador Yung IG % 0.7 % Critically high 0.0-0.5 [facility] Comment on above: Performed By: #### C BC #### [facility] [address] [place] [address] Dr. Salvador Yung LYMPH # 1.7 103/ul Normal 1.2-3.8 [facility] [place] Comment on above: Performed By: #### C BC #### [facility] [address] [place] [address] Dr. Salvador Yung Lymphocytes/100 WBC (Bld) 20.2 % Critically low 20.5-60.0 [facility] [place] Comment on above: Performed By: #### C BC #### [facility] [address] [place] [address] Dr. Salvador Yung MANUAL DIFF REQ NO Normal [facility] Comment on above: Performed By: #### C BC #### [facility] [address] [place] [address] Dr. Salvador Yung MCH (RBC) [Entitic mass] 30.1 pg Normal 26.7-34.0 [facility] [place] Comment on above: Performed By: #### C BC #### [facility] [address] [place] [address] Dr. Salvador Yung MCHC (RBC) [Mass/Vol] 32.0 g/dL Normal 29.9-35.2 [facility] Comment on above: Performed By: #### C BC #### [facility] [address] [place] [address] Dr. Salvador Yung MCV (RBC) [Entitic vol] 93.9 fL Normal 81.0-99.0 [facility] [place] Comment on above: Performed By: #### C BC #### [facility] [address] [place] [address] Dr. Salvador Yung MONO # 0.5 103/ul Normal 0.3-0.8 [facility] [place] Comment on above: Performed By: #### C BC #### [facility] [address] [place] [address] Dr. Salvador Yung Monocytes/100 WBC (Bld) 6.1 % Normal 1.7-12.0 [facility] [place] Comment on above: Performed By: #### C BC #### [facility] [address] [place] [address] Dr. Salvador Yung NEUT # 6.1 103/ul Normal 1.4-6.5 [facility] Comment on above: Performed By: #### C BC #### [facility] [address] [place] [address] Dr. Salvador Yung Neutrophils/100 WBC (Bld) 71.8 % Normal 43.0-75.0 [facility] [place] Comment on above: Performed By: #### C BC #### [facility] [address] [place] [address] Dr. Salvador Yung Platelet mean volume (Bld) [Entitic vol] 8.2 fL Critically low 9.5-13.5 [facility] [place] Comment on above: Performed By: #### C BC #### [facility] [address] [place] [address] Dr. Salvador Yung PLT 246 103/ul Normal 150-450 [facility] Comment on above: Performed By: #### C BC #### [facility] [address] [place] [address] Dr. Salvador Yung RBC 4.59 106/ul Normal 4.20-5.40 [facility] Comment on above: Performed By: #### C BC #### [facility] [address] [place] [address] Dr. Salvador Yung WBC 8.5 103/ul Normal 4.0-11.0 [facility] Comment on above: Performed By: #### C BC #### [facility] [address] [place] [address] Dr. Salvador Yung FREE T3on 05-21-2022 FREE T3 2.14 pg/mlL Critically low 2.18-3.98 [facility] Comment on above: Performed By: #### P OCGLUC #### [facility] [address] [address] [address] Salvador Yung GLYCOHEMOGLOBIN A1Con 2022 ADA RECOMMENDATION SEE BELOW Normal [facility] Comment on above: Result Comment: ADA RECOMMENDED LIMIT 4.0 - 6.0 ADA THERAPEUTIC TARGET < 7.0 ACTION SUGGESTED > 7.0 Performed By: #### P OCGLUC #### [facility] [address] [address] [address] Salvador Yung Glucose [Mass/Vol] 100 mg/dL Normal [facility] Comment on above: Performed By: #### P OCGLUC #### [facility] [address] [place] [address] Dr. Salvador Yung HbA1c (Bld) [Mass fraction] 5.1 % Normal 4.5-6.2 [facility] [place] Comment on above: Performed By: #### P OCGLUC #### [facility] [address] [place] [address] Dr. Salvador Yung LIPID PROFILEon 05-21-2022 CHOL-HDL RATIO NORM SEE BELOW Normal [facility] Comment on above: Result Comment: 3.3 - 4.4 LOW RISK 4.4 - 7.1 AVERAGE RISK 7.1 - 11.0 MODERATE RISK >11.0 HIGH RISK Performed By: #### P OCGLUC #### [facility] [address] [address] [address] Salvador Yung Cholesterol [Mass/Vol] 164 mg/dL Normal <=200 [facility] [place] Comment on above: Performed By: #### P OCGLUC #### [facility] [address] [address] [address] Salvador uYng Cholesterol in HDL [Mass/Vol] 61 mg/dL Critically high 40-60 [facility] [place] Comment on above: Performed By: #### P OCGLUC #### [facility] [address] [address] [address] Salvador Yung Cholesterol in LDL [Mass/Vol] 90.2 mg/dL Normal [facility] [place] Comment on above: Performed By: #### P OCGLUC #### [facility] [address] [address] [address] Salvador Yung Cholesterol.total/Cho lesterol in HDL [Mass ratio] 2.7 {ratio} Normal [facility] [place] Comment on above: Performed By: #### P OCGLUC #### [facility] [address] [address] [address] Salvador Yung HDL NORMAL > or = 60 mg/dl - LO W CARDIOVASCULAR RISK <40 mg/dl - HIGH CARDIOVASCULAR RISK Normal [facility] [place] Comment on above: Performed By: #### P OCGLUC #### [facility] [address] [address] [address] Salvador Yung LDL CALC NORMAL SEE BELOW Normal [facility] Comment on above: Result Comment: <100 mg/dl OPTIMAL 100 - 129 mg/dl NEAR OR ABOVE OPTIMAL 130 - 159 mg/dl BORDERLINE HIGH 160 - 189 mg/dl HIGH >190 mg/dl VERY HIGH Performed By: #### P OCGLUC #### [facility] [address] [address] [address] Salvador Yung Triglyceride [Mass/Vol] 64 mg/dL Normal <=150 [facility] [place] Comment on above: Performed By: #### P OCGLUC #### [facility] [address] [address] [address] Salvador Yung VLDL CALC 12.8 mg/dL Normal [facility] [place] Comment on above: Performed By: #### P OCGLUC #### [facility] [address] [address] [address] Salvador Yung PROF 14(COMP METB)on 023 Albumin [Mass/Vol] 3.2 g/dL Critically low 3.4-5.0 [facility] Comment on above: Performed By: #### P OCGLUC #### [facility] [address] [place] [address] Dr. Salvador Yung Albumin/Globulin [Mass ratio] 0.7 {ratio} Normal [facility] [place] Comment on above: Performed By: #### P OCGLUC #### [facility] [address] [address] [address] Salvador Yung ALP [Catalytic activity/Vol] 68 U/L Normal 46-116 [facility] [place] Comment on above: Performed By: #### P OCGLUC #### [facility] [address] [place] [address] Dr. Salvador Yung ALT [Catalytic activity/Vol] 25 U/L Normal 14-59 [facility] [place] Comment on above: Performed By: #### P OCGLUC #### [facility] [address] [address] [address] Salvador Yung Anion gap [Moles/Vol] 11.8 mmol/L Normal [facility] Comment on above: Performed By: #### P OCGLUC #### [facility] [address] [place] [address] Dr. Salvador Yung AST [Catalytic activity/Vol] 20 U/L Normal 15-37 [facility] [place] Comment on above: Performed By: #### P OCGLUC #### [facility] [address] [address] [address] Salvador Yung Bilirubin [Mass/Vol] 0.5 mg/dL Normal 0.2-1.0 [facility] [place] Comment on above: Performed By: #### P OCGLUC #### [facility] [address] [place] [address] Dr. Salvador Yung Calcium [Mass/Vol] 8.9 mg/dL Normal 8.5-10.1 [facility] Comment on above: Performed By: #### P OCGLUC #### [facility] [address] [place] [address] Dr. Salvador Yung Chloride [Moles/Vol] 105 mmol/L Normal 98-107 [facility] [place] Comment on above: Performed By: #### P OCGLUC #### [facility] [address] [place] [address] Dr. Salvador Yung CO2 [Moles/Vol] 29.9 mmol/L Normal 21.0-32.0 [facility] Comment on above: Performed By: #### P OCGLUC #### [facility] [address] [place] [address] Dr. Salvador Yung Creatinine [Mass/Vol] 0.74 mg/dL Normal 0.55-1.02 [facility] Comment on above: Performed By: #### P OCGLUC #### [facility] [address] [address] [address] Salvador Yung EGFR-AF [place] >60 Normal >=60 [facility] Comment on above: Performed By: #### P OCGLUC #### [facility] [address] [address] [address] Salvador Yung EGFR-NON AF [place] >60 Normal >=60 [facility] [place] Comment on above: Performed By: #### P OCGLUC #### [facility] [address] [address] [address] Salvador Yung Globulin (S) [Mass/Vol] 4.3 g/dL Normal [facility] [place] Comment on above: Performed By: #### P OCGLUC #### [facility] [address] [place] [address] Dr. Salvador Yung Glucose [Mass/Vol] 88 mg/dL Normal 74-106 [facility] Comment on above: Performed By: #### P OCGLUC #### [facility] [address] [address] [address] Salvador Yung Potassium [Moles/Vol] 3.7 mmol/L Normal 3.5-5.1 [facility] [place] Comment on above: Performed By: #### P OCGLUC #### [facility] [address] [address] [address] Salvador Yung Protein [Mass/Vol] 7.5 g/dL Normal 6.4-8.2 [facility] Comment on above: Performed By: #### P OCGLUC #### [facility] [address] [address] [address] Salvador Yung Sodium [Moles/Vol] 143 mmol/L Normal 136-145 [facility] Comment on above: Performed By: #### P OCGLUC #### [facility] [address] [address] [address] Salvador Yung Urea nitrogen [Mass/Vol] 11.0 mg/dL Normal 7.0-18.0 [facility] [place] Comment on above: Performed By: #### P OCGLUC #### [facility] [address] [address] [address] Salvador Yung Urea nitrogen/Creatinine [Mass ratio] 14.9 mg/mg Normal [facility] [place] Comment on above: Performed By: #### P OCGLUC #### [facility] [address] [place] [address] Dr. Salvador Yung T4on 05-21-2022 T4 [Mass/Vol] 11.60 ug/dL Normal 4.80-13.90 [facility] Comment on above: Performed By: #### P OCGLUC #### [facility] [address] [place] [address] Dr. Salvador Yung TSHon 05-21-2022 TSH 0.165 uIU/mL Critically low 0.358-3.740 [facility] Comment on above: Performed By: #### P OCGLUC #### [facility] [address] [place] [address] Dr. Salvador Yung VC ENDOVENOUS ABL 1ST V RTon 05-21-2022 VC ENDOVENOUS ABL 1ST V RT Patient: LEELEE CEDILLO Exam Date: 05/21/2022 : 1950 Gender:F Ordering : DR ALFRED UMAÑA M.D. Admission #: [id number] Family : Order #: [id number] CLICK HERE TO VIEW EXAM RADIOLOGY REPORT [...] MD on 05/21/2022 at 13:51 Normal [facility] VITAMIN D 25 OHon 05-21-2022 VIT D 25-OH 25.1 ng/mL Normal [facility] Comment on above: Performed By: #### V ITAD #### [facility] [address] [place], [place] [address] Dr. Salvador Yung VIT D RANGES SEE BELOW Normal [facility] [place] Comment on above: Result Comment: <20 ng/mL Vit D deficient 20 - <30 ng/mL Vit D insufficient 30 - 100 ng/mL Vit D sufficient >100 ng/mL Potential Toxicity Performed By: #### V ITAD #### [facility] [address] [address] [address] Salvador Yung XR HIP LT 2 [...] MARI LORENZO Date: 2022-05-21 16:26 Normal [facility] VC COMP CONSULTATIONon 05-01 VC COMP CONSULTATION Patient: REAGAN CEDILLO Exam Date: 05/01/2022 : 1950 Gender:F Ordering : DR. ADELE FLEMING D.P.MKimberlee Admission #: [id number] Family : Order #: [id number] CLICK HERE [...] small saphenous vein, right lower extremity incompetent felt puller veins, and bilateral lower extremity incompetent branch [...] arterial disease 5. CEAP: C6, EC, AP, [place] PLAN: 1. Continued use of compression stockings 2. Elevated legs and increased physical activity symptomatic relief 3. Endovenous laser ablation of right small saphenous vein and felt puller vein. 4. Microfoam chemical ablation of dilated, [...] Lobato M.D. on 05/01/2022 at 15:27 Normal [facility] [place] VC VENOUS REFLUX SAMI LMTon 0 05-01-2022 VC VENOUS REFLUX SAMI LMT Patient: LEELEE CEDILLO Exam Date: 05/01/2022 : 1950 Gender:F Ordering : DR. ADEEL FLEMING D.P.M. Admission #: [id number] Family : DR ALFRED UMAÑA M.D. Order #: [id number] CLICK HERE TO VIEW EXAM RADIOLOGY REPORT [...] chronic thrombus visualized Compressibility: Normal Flow: Normal Custodial Worker: Dist/med calf 2.6mm with 0s reflux. Mid/med calf 3.5mm with 0s reflux. Tech Note: GSV has been previously stripped. Patent varicose vein mid/med calf 2.3mm with 0.5s reflux. Patent varicose vein prox/med calf 3.4mm with 1.2s reflux. Patent varicose vein dist/med thigh 5.4mm with 0.8s reflux. CONCLUSION: 1. Dilated, incompetent right small saphenous vein. 2. 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 3. Consultation for endovenous laser ablation is recommended. Dictated by: Julio Lobato M.D. on 05/01/2022 at 14:06 Approved by: Julio Lobato M.D. on 05/01/2022 at 14:28 Normal [facility] [place] Coding Summary.on 03-11-2022 Coding Summary. Normal [facility] ED Traumaon 03-09-2022 ED Trauma [id number]#1. 00CD:127 Normal [facility] Consent for Procedure/Surger yon 03-08-2022 Consent for Procedure/Surgery [id number]#1. 00CD:127 Normal [facility] Consent for Treatmenton 02-18 Consent for Treatment [id number]#1.0 0CD:127 Normal [facility] Discharge Instructionson Discharge Instructions [id number]#1. 00CD:127 Normal [facility] ED Clinical Summaryon 2021 ED Clinical Summary Normal [facility] ED Note-Physicianon 03-08-20 ED Note-Physician Normal [facility] Comment on above: Result Comment: Elec tronically Signed By: Wm Nagy DO.br\Date and Time Signed: 03/08/22 21:11 EST ED Patient Education Noteon 03-08-2022 ED Patient Education Note Normal [facility] ED Patient Summaryon 022 ED Patient Summary Normal [facility] EMS Documentationon 03-08-20 EMS Documentation Normal [facility] EMS Documentation Normal [facility] Monitor Recordon 03-08-2022 Monitor Record [id number]#1. 00CD:127 Normal [facility] Monitor Record [id number]#1. 00CD:127 Normal [facility] Pre-Arrival Noteon Pre-Arrival Note Normal [facility] Respiratory Therapy Noteson 03-08-2022 Respiratory Therapy Notes conscious sedation on Eaton, Leelee. Used co2 monitor and one liter of 02. patient maintained 38 co2 and 99 O2. Last approx 40 min. Normal [facility] XR Hip 2-3 Views Left + Pelv yasir 03-08-2022 XR Hip 2-3 Views Left + Pelvis Normal [facility] XR Hip 2-3 Views Left + Pelvis Normal [facility] BLEEDING TIMEon 03-06-2022 BLEEDING TIME 10.5 min Critically high 1.0-8.0 [facility] Comment on above: Performed By: #### B LTM #### [facility] [address] [place] [address] Dr. Salvador Yung CBC AUTO DIFFon 03-06-2022 BASO # 0.1 103/ul Normal 0.0-0.1 [facility] Comment on above: Performed By: #### C BC #### [facility] [address] [address] [address] Salvador Yung Basophils/100 WBC (Bld) 0.7 % Normal 0.2-2.0 [facility] [place] Comment on above: Performed By: #### C BC #### [facility] [address] [address] [address] Salvador Yung EO # 0.1 103/ul Normal 0.0-0.7 [facility] [place] Comment on above: Performed By: #### C BC #### [facility] [address] [address] [address] Salvador Yung Eosinophils/100 WBC (Bld) 0.7 % Critically low 0.9-7.0 [facility] [place] Comment on above: Performed By: #### C BC #### [facility] [address] [place] [address] Dr. Salvador Yung Erythrocyte distribution width (RBC) [Ratio] 12.9 % Normal 11.0-15.0 [facility] [place] Comment on above: Performed By: #### C BC #### [facility] [address] [place] [address] Dr. Salvador Yung Hematocrit (Bld) [Volume fraction] 41.3 % Normal 36.0-48.0 [facility] [place] Comment on above: Performed By: #### C BC #### [facility] [address] [place] [address] Dr. Salvador Yung Hemoglobin (Bld) [Mass/Vol] 13.7 g/dL Normal 12.0-16.0 [facility] [place] Comment on above: Performed By: #### C BC #### [facility] [address] [place] [address] Dr. Salvador Yung IG # 0.05 10e3/ul Critically high 0.00-0.03 [facility] Comment on above: Performed By: #### C BC #### [facility] [address] [place] [address] Dr. Salvador Yung IG % 0.7 % Critically high 0.0-0.5 [facility] Comment on above: Performed By: #### C BC #### [facility] [address] [place] [address] Dr. Salvador Yung LYMPH # 1.4 103/ul Normal 1.2-3.8 [facility] [place] Comment on above: Performed By: #### C BC #### [facility] [address] [place] [address] Dr. Salvador Yung Lymphocytes/100 WBC (Bld) 18.9 % Critically low 20.5-60.0 [facility] [place] Comment on above: Performed By: #### C BC #### [facility] [address] [place] [address] Dr. Salvador Yung MANUAL DIFF REQ NO Normal [facility] Comment on above: Performed By: #### C BC #### [facility] [address] [place] [address] Dr. Salvador Yung MCH (RBC) [Entitic mass] 30.3 pg Normal 26.7-34.0 [facility] [place] Comment on above: Performed By: #### C BC #### [facility] [address] [place] [address] Dr. Salvador Yung MCHC (RBC) [Mass/Vol] 33.2 g/dL Normal 29.9-35.2 [facility] [place] Comment on above: Performed By: #### C BC #### [facility] [address] [place] [address] Dr. Salvador Yung MCV (RBC) [Entitic vol] 91.4 fL Normal 81.0-99.0 [facility] [place] Comment on above: Performed By: #### C BC #### [facility] [address] [place] [address] Dr. Salvador Yung MONO # 0.7 103/ul Normal 0.3-0.8 [facility] [place] Comment on above: Performed By: #### C BC #### [facility] [address] [place] [address] Dr. Salvador Yugn Monocytes/100 WBC (Bld) 9.9 % Normal 1.7-12.0 [facility] [place] Comment on above: Performed By: #### C BC #### [facility] [address] [address] [address] Salvador Yung NEUT # 5.2 103/ul Normal 1.4-6.5 [facility] [place] Comment on above: Performed By: #### C BC #### [facility] [address] [address] [address] Salvador Yung Neutrophils/100 WBC (Bld) 69.1 % Normal 43.0-75.0 [facility] [place] Comment on above: Performed By: #### C BC #### [facility] [address] [place] [address] Dr. Salvador Yung Platelet mean volume (Bld) [Entitic vol] 7.9 fL Critically low 9.5-13.5 [facility] [place] Comment on above: Performed By: #### C BC #### [facility] [address] [place] [address] Dr. Salvador Yung PLT 223 103/ul Normal 150-450 [facility] Comment on above: Performed By: #### C BC #### [facility] [address] [place] [address] Dr. Salvador Yung RBC 4.52 106/ul Normal 4.20-5.40 [facility] [place] Comment on above: Performed By: #### C BC #### [facility] [address] [place] [address] Dr. Salvador Yung WBC 7.5 103/ul Normal 4.0-11.0 [facility] Comment on above: Performed By: #### C BC #### [facility] [address] [place] [address] Dr. Salvador Yung IRONon 03-06-2022 Iron [Mass/Vol] 83.0 ug/dL Normal 50.0-170.0 [facility] Comment on above: Performed By: #### I ESTEFANY #### [facility] [address] [place] [address] Dr. Salvador Yung PROTIMEon 03-06-2022 INR Coag (PPP) [Relative time] 0.95 {INR} Normal [facility] [place] Comment on above: Performed By: #### P TT, PT #### [facility] [address] [address] [address] Salvador Yung INR GUIDELINES SEE BELOW Normal The [facility] Comment on above: Result Comment: YOJANA RED INR: 2.0 - 3.0 CONDITIONS NOT LISTED BELOW 2.5 - 3.5 FOR PROSTHETIC HEART VALVE REPLACEMENT 2.5 - 3.5 RECURRENT THROMBOSIS Performed By: #### P TT, PT #### [facility] [address] [address] [address] Salvador Yung PT Coag (PPP) [Time] 10.3 s Normal 9.0-11.6 [facility] Comment on above: Performed By: #### P TT, PT #### [facility] [address] [address] [address] Salvador Yung PTTon 03-06-2022 aPTT Coag (Bld) [Time] 22.1 s Critically low 22.3-36.2 [facility] Comment on above: Performed By: #### P TT, PT #### [facility] [address] [address] [address] Salvador Yung SCREENING MAMMOGRAM W/DANIEL, BILATERAL*on [...] IS VERY IMPORTANT TO YOUR HEALTH. CURRENT [employer] GUIDELINES RECOMMENDS ANNUAL MAMMOGRAPHY BEGINNING AT AGE 41. THIS FACILITY USUALLY USES A REMINDER SYSTEM TO ENSURE ALL POSITIONS RECEIVED REMINDER NOTIFICATIONS AT THE TIME BASED ON THE RECOMMENDATIONS OF THIS EXAM. Report reported and signed by Julio Martines on 02/28/2022 1602 Normal [facility] Specialist Covid-19 PCR (CVDTBH)on 12-19 SARS-CoV-2 (COVID-19) RNA VIVIANA+probe Ql (Unsp spec) Not detected Normal NOT DETECTED [facility] Comment on above: Result Comment: This test is not yet approved or cleared by the [place] FDA. When there are no FDA-approved or cleared tests available, and other criteria are met, FDA can make tests available under an emergency access mechanism called an Emergency Use Authorization (EUA). The EUA for this test is supported by the [place] of Health and Human Service's (HHS's) declaration [...] SARS-CoV-2. Performed By: #### P OCGLUC #### [facility] [address] [place] [address] Dr. Salvador Yung MRI [facility] CONon 12-10- 22 MRI [facility] CON HISTORY: Chronic low back pain with left leg pain. Prior low back surgery. Lumbar disc disease. MRI [facility] CON: 12/09/2021 10:11 AM EDT [...] SARA LAUREN Date: 2021-12-10 12:11 Normal [facility] COVID-19 Positive/Negativeon 05-04-2020 COVID-19 Positive/Negative Negative Negative [facility] Comment on above: Testing for SARS-CoV -2 by RT-PCRThis test was developed and its performance characteristics determined by [employer] and validated at the [facility]. This test has not been FDA cleared [...] Otheron 05-04-2020 Coronavirus 2019 PCR Interp N/A [facility] Automated basophil %on 04-24 Basophils/100 WBC (Bld) 0.6 % [facility] Automated basophil counton 0 04-24-2020 Basophils (Bld) [#/Vol] 0.0 10*3/uL 0.0-0.2 [facility] Automated blood lymphocyte c ount (number/volume)on 04-24-2020 Lymphocytes (Bld) [#/Vol] 1.0 10*3/uL 1.00-4.8 [facility] Automated blood lymphocyte c ount as percentage of total leukocyteson 04-24-2020 Lymphocytes/100 WBC (Bld) 17.0 % [facility] Automated blood monocyte cou nton 04-24-2020 Monocytes (Bld) [#/Vol] 0.3 10*3/uL 0.0-0.8 [facility] Automated blood platelet cou nt (count/volume)on 04-24-2020 Platelets (Bld) [#/Vol] 224 10*3/uL 150-450 [facility] Automated blood platelet vikki n volume measurementon 04-24-2020 Platelet mean volume (Bld) [Entitic vol] 7.2 fL 6.3-10.7 [facility] Automated eosinophil %on Eosinophils/100 WBC (Bld) 3.5 % [facility] Automated eosinophil counton 04-24-2020 Eosinophils (Bld) [#/Vol] 0.2 10*3/uL 0.0-0.45 [facility] Automated erythrocyte distri bution width ratioon 04-24-2020 Erythrocyte distribution width (RBC) [Ratio] 13.0 % 11.9-15.3 [facility] Automated erythrocyte mean c orpuscular hemoglobin (mass per erythrocyte)on 04-24-2020 MCH (RBC) [Entitic mass] 27.7 pg 24.7-34.3 [facility] Automated erythrocyte mean c orpuscular hemoglobin concentration measurement (mass/volon 04-24-2020 MCHC (RBC) [Mass/Vol] 33.2 g/dL 32.0-35.0 [facility] Automated erythrocyte mean c orpuscular volumeon 04-24-2020 MCV (RBC) [Entitic vol] 83.3 fL 80-100 [facility] Automated erythrocytes count in urine sediment (number/area)on 04-24-2020 RBC Auto (Urine sed) [#/Area] None seen [HPF] [facility] Automated leukocytes count i n urine sediment (number/area)on 04-24-2020 WBC Auto (Urine sed) [#/Area] 0-1 [HPF] [facility] Automated monocyte %on 04-24 Monocytes/100 WBC (Bld) 6.1 % [facility] Automated neutrophil %on Neutrophils/100 WBC (Bld) 72.8 % [facility] Automated urine color determ inationon 04-24-2020 Color (U) Yellow Yellow [facility] Blood erythrocytes automated count (number/volume)on 04-24-2020 RBC (Bld) [#/Vol] 4.50 10*6/uL 3.60-5.00 [facility] Blood hemoglobin measurement (mass/volume)on 04-24-2020 Hemoglobin (Bld) [Mass/Vol] 12.5 g/dL 11.8-15.4 [facility] Blood leukocytes automated c ount (number/volume)on 04-24-2020 WBC (Bld) [#/Vol] 5.7 10*3/uL 3.8-11.6 [facility] Blood neutrophil count by au tomated method (number/volume)on 04-24-2020 Neutrophils (Bld) [#/Vol] 4.2 10*3/uL 1.8-7.7 [facility] Estimated glomerular filtrat ion rate (GFR) non- Americanon 04-24-2020 GFR/1.73 sq M predicted among non-blacks MDRD (S/P/Bld) [Vol rate/Area] mL/min/{1.73_m2} [facility] Hematocrit [Volume Fraction] of Blood by Automated counton 04-24-2020 Hematocrit (Bld) [Volume fraction] 37.5 % 34.0-46.4 [facility] Otheron 04-24-2020 GFR/1.73 sq M.predicted MDRD (S/P/Bld) [Vol rate/Area] mL/min/{1.73_m2} [facility] Comment on above: GFR estimated refere nce range: According to KDOQI guidelines, <60 ml/min/1.73m2 is sufficient to diagnose a patient with chronic kidney disease. Nucleated RBC/100 WBC (Bld) [Ratio] 0.1 % 0-0.5 [facility] Creatinine Clearance (Chem N/A [facility] Serum or plasma calcium kelly urement (mass/volume)on 04-24-2020 Calcium [Mass/Vol] 9.3 mg/dL 8.2-10.2 [facility] Serum or plasma chloride vikki surement (moles/volume)on 04-24-2020 Chloride [Moles/Vol] 101 mmol/L 95-114 [facility] Serum or plasma creatinine m easurement with calculation of estimated glomerular filtron 04-24-2020 Creatinine [Mass/Vol] 0.88 mg/dL 0.44-1.03 [facility] Serum or plasma glucose kelly urement (mass/volume)on 04-24-2020 Glucose [Mass/Vol] 116 mg/dL 70-100 [facility] Comment on above: ADA recommended refe rence rangeRandom Glucose Reference Range is dependent on time and content of last meal. Glucose of more than 200 mg/dL in a nonstressed, ambulatory subject supports the diagnosis of Diabetes Mellitus. Serum or plasma potassium me asurement (moles/volume)on 04-24-2020 Potassium [Moles/Vol] 3.8 mmol/L 3.5-5.1 [facility] Serum or plasma sodium measu rement (moles/volume)on 04-24-2020 Sodium [Moles/Vol] 136 mmol/L 136-146 [facility] Serum or plasma total carbon dioxide measurement (moles/volume)on 04-24-2020 CO2 [Moles/Vol] 23.1 mmol/L 22.0-30.0 [facility] Serum or plasma urea nitroge n measurement (mass/volume)on 04-24-2020 Urea nitrogen [Mass/Vol] 10 mg/dL 9-23 [facility] Specific gravity of Urine by Automated test stripon 04-24-2020 Specific gravity (U) [Rel density] 1.007 1.001-1.030 [facility] Squamous epithelial cells de tection in urine sediment by light microscopyon 04-24-2020 Epithelial cells.squamous LM Ql (Urine sed) None seen [HPF] [facility] Urinalysison 04-24-2020 Hyaline casts LM Ql (Urine sed) None seen [LPF] [facility] Urine bacteria detection by automated methodon 04-24-2020 Bacteria Auto Ql (U) None seen None Seen [facility] Urine clarity by refractomet ry automatedon 04-24-2020 Clarity Refractometry automated (U) Clear Clear [facility] Urine glucose measurement by automated test strip (mass/volume)on 04-24-2020 Glucose Auto test strip (U) [Mass/Vol] Normal mg/dL Normal [facility] Urine hemoglobin detection b y automated test stripon 04-24-2020 Hemoglobin Auto test strip Ql (U) Negative Negative [facility] Urine ketones measurement by automated test strip (mass/volume)on 04-24-2020 Ketones (U) [Mass/Vol] Negative Negative [facility] Urine leukocyte esterase det ection by automated test stripon 04-24-2020 Leukocyte esterase Auto test strip Ql (U) 1+ Negative [facility] Urine nitrite detection by t est stripon 04-24-2020 Nitrite Ql (U) Negative Negative [facility] Urine pH measurement by auto mated test stripon 04-24-2020 pH (U) 5.5 [pH] 5.0-9.0 [facility] Urine protein measurement by automated test strip (mass/volume)on 04-24-2020 Protein (U) [Mass/Vol] Negative Negative [facility] Urine total bilirubin detect ion by test stripon 04-24-2020 Bilirubin Ql (U) Negative Negative [facility] Urine urobilinogen measureme nt by automated test strip (mass/volume)on 04-24-2020 Urobilinogen (U) [Mass/Vol] Normal mg/dL Normal [facility] CT L-SPINE WO CONTRASTon CT L-SPINE WO CONTRAST Patient Name: LEELEE ECDILLO STUDY: CT L-SPINE WO CONTRAST;; 10/13/2018 12:05 pm INDICATION: Low back pain LUMBAGO. COMPARISON: None. ACCESSION NUMBER(S): [id number] ORDERING CLINICIAN: HAMLET GILMAN TECHNIQUE: Axial sections [...] combination with facet joint arthropathy noted causing [id number] left neural foramina narrowing. Transpedicular screws of [...] left lateral recess, left neural foramina and [id number]-rq-[id number] right neural foramina narrowing. IMPRESSION: Postoperative and [...] pm INDICATION: LUMBAGO. COMPARISON: None ACCESSION NUMBER(S): [id number]; [id number] ORDERING CLINICIAN: HAMLET GILMAN FINDINGS: Long radiograph [...] pm INDICATION: LUMBAGO. COMPARISON: None ACCESSION NUMBER(S): [id number]; [id number] ORDERING CLINICIAN: HAMLET GILMAN FINDINGS: Long radiograph [...] acuity. Electronically signed by: ADELE BA MD [facility] Vital Signs Date Time Vital Sign Value Performing Clinician Facility 08-07-2023 11:44-0400 Diastolic blood pressure 86 mm[Hg] MD Sara Vick Work Phone: [facility] 08-07-2023 11:44-0400 Heart rate 67 /min MD Sara Vick Work Phone: [facility] 08-07-2023 11:44-0400 SaO2% (BldA) [Mass fraction] 99 % MD Sara Vick Work Phone: [facility] 08-07-2023 11:44-0400 Systolic blood pressure 132 mm[Hg] MD Sara Vick Work Phone: [facility] 07-01-2023 10:26-0400 Body height 172.72 cm MD Sara Vick Work Phone: [facility] 07-01-2023 10:26-0400 Body mass index (BMI) [Ratio] 29.5 kg/m2 MD Sara Vick Work Phone: [facility] 07-01-2023 [id number] Body temperature 97.2 [degF] MD Sara Vick Work Phone: [facility] 07-01-2023 10:26-040 Body weight 87.99 kg MD Sara Vick Work Phone: [facility] 07-01-2023 10:26-0400 Diastolic blood pressure 78 mm[Hg] MD Sara Vick Work Phone: [facility] 07-01-2023 10:26-0400 Heart rate 78 /min MD Sara Vick Work Phone: [facility] 07-01-2023 10:26-0400 SaO2% (BldA) [Mass fraction] 98 % MD Sara Vick Work Phone: [facility] 07-01-2023 10:26-0400 Systolic blood pressure 120 mm[Hg] MD Sara Vick Work Phone: [facility] 06-30-2023 14:39-0400 Diastolic blood pressure 70 mm[Hg] MD Sara Vick Work Phone: [facility] 06-30-2023 14:39-0400 Heart rate 75 /min MD Sara Vick Work Phone: [facility] 06-30-2023 14:39-0400 SaO2% (BldA) [Mass fraction] 99 % MD Sara Vick Work Phone: [facility] 06-30-2023 14:39-0400 Systolic blood pressure 110 mm[Hg] MD Sara Vick Work Phone: [facility] 06-24-2023 13:13-0500 Body height 172.7 cm Ghanshyam Lombardi MD Work Phone: [facility] 06-24-2023 13:13-0500 Body weight 87.4 kg Ghanshyam Lombardi MD Work Phone: [facility] [place] 06-24-2023 13:13-0500 Diastolic blood pressure 56 mm[Hg] Ghanshyam Lombardi MD Work Phone: [facility] [place] 06-24-2023 13:13-0500 Heart rate 93 /min Ghanshyam Lombardi MD Work Phone: [facility] [place] 06-24-2023 13:13-0500 Respiratory rate 18 /min Ghanshyam Lombardi MD Work Phone: [facility] [place] 06-24-2023 13:13-0500 SaO2% (BldA) [Mass fraction] 97 % Ghanshyam Lombardi MD Work Phone: [facility] [place] 06-24-2023 13:13-0500 Systolic blood pressure 115 mm[Hg] Ghanshyam Lombardi MD Work Phone: [facility] [place] 05-15-2023 09:00-0500 Body weight 90.18 kg Larry Brown Other [facility] [employer] Other 05-15-2023 09:00-0500 Body weight 90.17 kg MD Sara Vick Work Phone: [facility] 05-15-2023 09:00-0500 Diastolic blood pressure 86 mm[Hg] Larry Brown Other [facility] 05-15-2023 09:00-0500 SaO2% (BldA) [Mass fraction] 99 % Larryrandy Brown Other [facility] [employer] Other 05-15-2023 09:00-0500 Systolic blood pressure 148 mm[Hg] Larry Brown Other [facility] 05-13-2023 11:15-0500 Body height 175.26 cm Kiran Kessler Other [facility] 05-13-2023 11:15-0500 Body mass index (BMI) [Ratio] 29.24 kg/m2 Kiran Kessler Other [facility] [employer] Other 05-13-2023 11:15-0500 Body temperature 96.9 [degF] Kiran Kessler Other [facility] [employer] Other 05-13-2023 11:15-0500 Body weight 89.81 kg Kiran Kessler Other [facility] 05-13-2023 11:15-0500 Diastolic blood pressure 80 mm[Hg] Kiran Kessler Other [facility] 05-13-2023 11:15-0500 SaO2% (BldA) [Mass fraction] 99 % Kiran Kessler Other [facility] [employer] Other 05-13-2023 11:15-0500 Systolic blood pressure 140 mm[Hg] Kiran Kessler Other [facility] 04-03-2023 10:15-0500 Body height 175.26 cm Larry Stephanie Other [facility] [employer] Other 04-03-2023 10:15-0500 Diastolic blood pressure 74 mm[Hg] Alrryrandy Brown Other [facility] [employer] Other 04-03-2023 10:15-0500 SaO2% (BldA) [Mass fraction] 99 % Larry Stephanie Other [facility] [employer] Other 04-03-2023 10:15-0500 Systolic blood pressure 118 mm[Hg] Larryrandy Brown Other [facility] [employer] Other 03-25-2023 11:05-0500 Diastolic blood pressure 75 mm[Hg] MD Sara Vick Work Phone: [facility] 03-25-2023 11:05-0500 Heart rate 72 /min MD Sara Vick Work Phone: [facility] 03-25-2023 11:05-0500 Respiratory rate 18 /min MD Sara Vick Work Phone: [facility] 03-25-2023 11:05-0500 SaO2% (BldA) [Mass fraction] 97 % MD Sara Vick Work Phone: [facility] 03-25-2023 11:05-0500 Systolic blood pressure 146 mm[Hg] MD Sara Vick Work Phone: [facility] 03-25-2023 10:27-0500 Inhaled oxygen flow rate 3 L/min MD Sara Vick Work Phone: [facility] 03-25-2023 10:14-0500 Body height 173.99 cm MD Sara Vick Work Phone: [facility] 03-25-2023 10:14-0500 Body weight 88.45 kg MD Sara Vick Work Phone: [facility] 01-27-2023 14:30-0400 Body height 175.26 cm Dominique Shane Other [email or web address] Other 01-27-2023 14:30-0400 Diastolic blood pressure 70 mm[Hg] Dominique Shane Other [email or web address] Other 01-27-2023 14:30-0400 SaO2% (BldA) [Mass fraction] 98 % Dominique Shane Other [email or web address] Other 01-27-2023 14:30-0400 Systolic blood pressure 118 mm[Hg] Dominique Shane Other [email or web address] Other 01-09-2023 10:15-0400 Body height 175.26 cm Larry Brown Other [email or web address] Other 01-09-2023 10:15-0400 Body mass index (BMI) [Ratio] 29.56 kg/m2 Larry Brown Other [email or web address] Other 01-09-2023 10:15-0400 Body weight 90.81 kg Larry Brown Other [email or web address] Other 01-09-2023 10:15-0400 Diastolic blood pressure 78 mm[Hg] Larry Brown Other [email or web address] Other 01-09-2023 10:15-0400 SaO2% (BldA) [Mass fraction] 98 % Larry Brown Other [email or web address] Other 01-09-2023 10:15-0400 Systolic blood pressure 130 mm[Hg] Larry Brown Other [email or web address] Other 12-12-2022 09:30-0400 Body height 175.26 cm Larry Brown Other [email or web address] Other 12-12-2022 09:30-0400 Body mass index (BMI) [Ratio] 29.77 kg/m2 Larry Brown Other [email or web address] Other 12-12-2022 09:30-0400 Body weight 91.45 kg Larry Brown Other [email or web address] Other 12-12-2022 09:30-0400 Diastolic blood pressure 74 mm[Hg] Larry Brown Other [email or web address] Other 12-12-2022 09:30-0400 SaO2% (BldA) [Mass fraction] 99 % Larry Brown Other [email or web address] Other 12-12-2022 09:30-0400 Systolic blood pressure 122 mm[Hg] Larry Brown Other [email or web address] Other 09-19-2022 12:00-0400 Body height 175.26 cm Larry Brown Other [email or web address] Other 09-19-2022 12:00-0400 Body mass index (BMI) [Ratio] 30.8 kg/m2 Larry Brown Other [email or web address] Other 09-19-2022 12:00-0400 Body weight 94.62 kg Larry Brown Other [email or web address] Other 09-19-2022 12:00-0400 SaO2% (BldA) [Mass fraction] 95 % Larry Brown Other [email or web address] Other 09-18-2022 10:40-0400 Body height 172.7 cm Perfecto Burch MD Work Phone: [facility] 09-18-2022 10:40-0400 Body mass index (BMI) [Ratio] 31.26 kg/m2 Perfecto Burch MD Work Phone: [facility] 09-18-2022 10:40-0400 Body temperature 96.4 [degF] Perfecto Burch MD Work Phone: [facility] 09-18-2022 10:40-0400 Body weight 93.26 kg Perfecto Burch MD Work Phone: [facility] 07-27-2022 15:38-0400 Hourly Rounding Francisco Ottoniel [...] 07-26-2022 11:35-0400 gluc 105 mg/dL Francisco Ottoniel [facility] 07-26-2022 11:35-0400 gluc Francisco Ottoniel [facility] 07-26-2022 11:35-0400 Heart rate 72 /min Francisco Ottoniel [facility] 07-26-2022 11:35-0400 Respiratory rate 18 /min Francisco Ottoniel [facility] 05-02-2022 10:00-0500 Body height 175.26 cm Larry Stephanie Other [employer] [facility] [employer] Other 05-02-2022 10:00-0500 Body mass index (BMI) [Ratio] 31.89 kg/m2 Larry Brown Other [email or web address] Other 05-02-2022 10:00-0500 Body weight 97.98 kg Larry Brown Other [email or web address] Other 05-02-2022 10:00-0500 Diastolic blood pressure 80 mm[Hg] Larry Brown Other [facility] [employer] Other 05-02-2022 10:00-0500 Systolic blood pressure 134 mm[Hg] Larry Brown Other [facility] [employer] Other 03-08-2022 17:00-0500 Diastolic blood pressure 117 [...] Body height 175.26 cm Larry Carrilloky Other [email or web address] Other 03-07-2022 11:00-0500 Body mass index (BMI) [Ratio] 32.54 kg/m2 Larry Stephanie Other [email or web address] Other 03-07-2022 11:00-0500 Body weight 99.97 kg Larry Carrilloky Other [email or web address] Other 03-07-2022 11:00-0500 SaO2% (BldA) [Mass fraction] 99 % Larryrandy Brown Other [email or web address] Other 06-20-2017 09:19-0500 PAIN LEVEL 0 {score} [...] 10-30-2023 End: 10-30-2023 ambulatory SARA VICK Facility:[facility] Start: 08-08-2023 End: 08-08-2023 ambulatory GHANSHYAM LOMBARDI Facility:[facility] Start: 08-08-2023 End: 08-08-2023 Subsequent hospital visit by physician Mri 6 Radio Main Q (I-Stat/1.5t/3t) Work Phone: MRI [facility] Comment on above: 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, 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] Start: 08-07-2023 End: 08-07-2023 ambulatory MD Sara Vick Work Phone: [facility] Work Phone: Start: 08-07-2023 End: 08-07-2023 Patient encounter procedure MD Sara Vick Work Phone: [facility] [place] Work Phone: Start: 08-05-2023 End: 08-06-2023 ambulatory ANNIE J PRINTY Not Available Start: 07-15-2023 End: 07-15-2023 ambulatory ANNIE PRINTY Not Available Start: 07-13-2023 End: 07-13-2023 ambulatory GHANSHYAMEVELINE LOMBARDI Facility:[facility] Start: 07-13-2023 End: 07-13-2023 Subsequent hospital visit by physician [facility] Work Phone: Radiology Comment on above: Chronic bilateral lo w back pain with bilateral sciatica [M54.42, M54.41, G89.29] Start: 07-01-2023 End: 07-01-2023 Patient encounter procedure MD Sara Vick Work Phone: [facility] Work Phone: Start: 06-30-2023 End: 06-30-2023 Patient encounter procedure MD Sara Vick Work Phone: [facility] Work Phone: Start: 06-29-2023 End: 06-29-2023 ambulatory ANNIE J PRINTY Not Available Start: 06-24-2023 End: 06-24-2023 Patient encounter procedure Ghanshyam Lombardi MD Work Phone: [facility] [place] Comment on above: 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); Chronic bilateral low back pain with bilateral sciatica Start: 06-24-2023 End: 06-24-2023 ambulatory GHANSHYAM LOMBARDI Facility:[facility] Start: 06-24-2023 End: 06-24-2023 Subsequent hospital visit by physician [facility]iology Comment on above: 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] Start: 05-22-2023 End: 05-22-2023 ambulatory Sara Vick Facility:[facility] Start: 05-22-2023 End: 05-22-2023 ambulatory MD Sara Vick Work Phone: [facility] Work Phone: Start: 05-22-2023 End: 05-22-2023 Patient encounter procedure MD Sara Vick Work Phone: [facility] [place] Work Phone: Start: 05-20-2023 End: 05-20-2023 ambulatory Sara Vick Facility:[facility] Start: 05-20-2023 End: 05-20-2023 Discharged Recurring MD Sara Vick Work Phone: [facility] [facility] Manager Assistant [address] Start: 05-20-2023 Registered Recurring MD Gideon Vick Work Phone: [facility] Manager Assistant [address] Start: 05-18-2023 Patient encounter procedure MD Sara Vick Work Phone: [facility]- Start: 05-15-2023 End: 05-15-2023 ambulatory Larry Brown Other [email or web address] Other Start: 05-15-2023 Office outpatient vi sit 25 minutes Larry Brown [facility] [place] Start: 05-15-2023 End: 05-15-2023 Patient encounter procedure MD Sara Vick Work Phone: [facility]- Start: 05-13-2023 End: 05-13-2023 ambulatory Kiran Kessler Other [email or web address] Other Start: 05-13-2023 Office outpatient ne w 60 minutes Kiran Kessler [facility] Start: 05-13-2023 End: 05-13-2023 Patient encounter procedure MD Sara Vick Work Phone: [facility]- Start: 04-16-2023 End: 04-16-2023 ambulatory Dominique Shane Other [email or web address] Other Start: 04-16-2023 Telephone encounter Dominique Shane [facility] Start: 04-03-2023 End: 04-03-2023 ambulatory Larry Brown Other [email or web address] Other Start: 04-03-2023 Office outpatient vi sit 15 minutes Larry Brown [facility] [place] Start: 04-03-2023 End: 04-03-2023 Patient encounter procedure MD Sara Vick Work Phone: [facility] [place] Work Phone: Start: 03-25-2023 (PROC) PROCEDURE Larry Brown [facility] Start: 03-25-2023 End: 03-25-2023 ambulatory Sara Vick Facility:[facility] Start: 03-25-2023 End: 03-25-2023 Admission to same day surgery center MD Sara Vick Work Phone: [facility] Work Phone: Start: 03-25-2023 End: 03-25-2023 ambulatory MD Sara Vick Work Phone: [facility] Work Phone: Start: 03-06-2023 End: 03-06-2023 Patient encounter procedure MD Sara Vick Work Phone: [facility] [place] Work Phone: Start: 02-10-2023 End: 02-10-2023 ambulatory Dominique Shane Other [email or web address] Other Start: 02-10-2023 Telephone encounter Dominique Shane [facility] Start: 01-27-2023 End: 01-27-2023 ambulatory Odminique Shane Other [email or web address] Other Start: 01-27-2023 Office outpatient vi sit 25 minutes Dominique Shane [facility] [place] Start: 01-27-2023 Telephone encounter Larry Stephanie [facility] Start: 01-09-2023 End: 01-09-2023 ambulatory Larry Stephanie Other [email or web address] Other Start: 01-09-2023 Office outpatient vi sit 25 minutes Larry Stephanie [facility] [place] Start: 12-12-2022 End: 12-12-2022 ambulatory Larry Stephanie Other [email or web address] Other Start: 12-12-2022 Office outpatient vi sit 25 minutes Larry Stephanie [facility] [place] Start: 11-22-2022 End: 11-22-2022 [facility] Start: 09-19-2022 End: 09-19-2022 ambulatory Larry Stephanie Other [email or web address] Other Start: 09-19-2022 Office outpatient vi sit 25 minutes Larry Stephanie [facility] [place] Start: 09-18-2022 ambulatory PERFECTO BURCH [facility] Start: 09-18-2022 End: 09-18-2022 Office outpatient new 30 minutes Perfecto Burch MD Work Phone: [facility] Comment on above: 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, sequela (Primary Dx) Start: 09-18-2022 End: 09-18-2022 Subsequent hospital visit by physician Perfecto Burch MD Work Phone: [facility] Start: 09-17-2022 ambulatory ADELE FLEMING Faci lity:[facility] Start: 09-10-2022 End: 09-10-2022 ambulatory Sara Vick Facility:[facility] Start: 09-09-2022 End: 09-10-2022 ambulatory ADELE FLEMING Facility:[facility] Start: 09-08-2022 End: 09-09-2022 ambulatory Alley Naranjo Facility:[facility] Start: 08-18-2022 End: 08-19-2022 ambulatory ADELE FLEMING Facility:[facility] Start: 08-13-2022 ambulatory PERFECTO BURCH [facility] Start: 08-12-2022 End: 08-13-2022 ambulatory ADELE FLEMING Facility:[facility] Start: 08-08-2022 End: 08-09-[address] ALFRED UMAÑA Facility:[facility] Start: 08-01-2022 End: 08-02-2022 ambulatory ADELE FLEMING Facility:[facility] Start: 07-26-2022 End: 07-27-2022 ambulatory Julio Ferrara Facility:[facility] Start: 07-26-2022 End: 07-27-2022 Observation Franciscoalberto Alcazar [facility] Start: 07-25-2022 Encounter for preprocedural cardiovascular examination ADELE FLEMING [facility] Start: 07-25-2022 Encounter for preprocedural laboratory examination ADELE FLEMING [facility] Start: 07-24-2022 End: 07-25-2022 ambulatory ADELE [...] 06-19-2022 ambulatory MD Sara Vick Work Phone: [facility] Work Phone: Start: 06-19-2022 End: 06-19-2022 Discharged Recurring MD Sara Vick Work Phone: [facility] [place] Work Phone: Start: 06-13-2022 End: 06-14-2022 ambulatory [...] 05-02-2022 End: 05-02-2022 ambulatory Larry Brown Other [email or web address] Other Start: 05-02-2022 Office outpatient vi sit 25 minutes Larry Brown [facility] [place] Start: 05-01-2022 End: 05-02-2022 ambulatory ADELE FLEMING Facility:[facility] Start: 04-22-2022 End: 04-23-2022 ambulatory ADELE FLEMING Facility:[facility] Start: 04-14-2022 End: 04-15-2022 ambulatory DEEPALI JANSEN Facility:[facility] Start: 04-08-2022 (PROC) PROCEDURE Larry Beck [facility] Start: 04-08-2022 End: 04-08-2022 ambulatory Larry Brown Other [email or web address] Other Start: 03-31-2022 End: 04-01-[address] ALFRED UMAÑA Facility:[facility] Start: 03-08-2022 End: 03-08-2022 Emergency department patient visit Wm Nagy Facility:[facility] Start: 03-08-2022 End: 03-08-2022 Emergency department patient visit Wm Nagy [facility] Start: 03-07-2022 End: 03-07-2022 ambulatory Larry Brown Other [email or web address] Other Start: 03-07-2022 Office consultation new/estab patient 60 min Larry Brown [facility] [place] Start: 03-06-2022 End: 03-07-[address] SARA VICK . Facility:[facility] Start: 01-03-2022 End: 01-03-[address] SARA VICK . Facility:[facility] Start: 12-09-2021 End: 12-10-2021 ambulatory SHAWANDA LITTLE Facility:[facility] Start: 11-05-2021 End: 11-06-2021 ambulatory ADELE Means [facility] Facility:[facility] Start: 10-07-2021 End: 10-07-2021 ambulatory PO SUAREZ . Facility:[facility] Start: 05-04-2020 End: 05-04-2020 Patient encounter procedure Sara Hoy -Pre-Surgical Testing Start: 05-02-2020 Registered Recurring Sara Vick -P hysical Therapy [facility] [place] Start: 04-24-2020 End: 04-24-2020 Patient encounter procedure Sara Hoy -Pre-Surgical Testing Start: 02-01-2020 End: 02-01-2020 Patient encounter procedure Sara Vick -X[facility] Start: 06-29-2018 Patient encounter procedure Sara~[id number] UNKNOWN Hoy Facility:[facility] Start: 12-11-2017 End: 12-12-2017 Patient encounter DEFAULT PHYSICIAN Facility:[facility] Procedures Date Procedure Procedure Detail Performing Clinician Start: 08-08-2023 Mri spinal canal tho racic w/o contrast matrl Ghanshyam Lombardi MD Work Phone: Start: 07-13-2023 Ct lumbar spine w/o contrast material Ghanshyam Lombardi MD Work Phone: Start: 06-24-2023 End: 06-24-2023 Radex spine lumbosacral minimum 4 views Ros 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 Work Phone: Start: 05-22-2023 Pulse volume recorde [...] for malignant neoplasm of breast Mammogram Screening [facility] Start: 06-23-2024 BP Controlled (<130/80) BP Controlled (<130/80) [facility] Start: 12-20-2023 Influenza vaccination Influenza Vaccine (Season Ended) [facility] Start: 05-22-2023 Pulse volume recorder pneumoplethysmography US arterial pvr rest [facility] Start: 05-22-2023 [facility] Start: 05-22-2023 Duplex scan of lower limb veins US venous duplex LE [facility] Start: 05-22-2023 US Lower extremity vein - bilateral [facility] Start: 04-20-2023 Advance Directive Discussion Advance Directive Discussion [facility] Start: 04-20-2023 Behavioral Health Screening Behavioral Health Screening [facility] Start: 04-20-2023 Depression Assessment Depression Assessment [facility] Start: 03-25-2023 [facility] Start: 02-28-2023 Screening for malignant neoplasm of breast Mammogram Screening [facility] Start: 12-19-2022 Covid-19 Vaccine ( season) Covid-19 Vaccine () [facility] Start: 12-19-2022 Influenza vaccination Influenza Vaccine (#1) [facility] Start: 01-28-2022 COVID-19 VACCINE (5 - Booster for Pfizer series) COVID-19 VACCINE (5 - Booster for Pfizer series) [facility] Start: 08-24-2019 Screening for malignant neoplasm of breast MAMMOGRAM SCREENING DISCUSSION [facility] Start: 12-20-2016 Screening for osteoporosis Bone Density Screening [facility] Start: 06-17-2014 Diabetes Screening Diabetes Screening [facility] Start: 2011 RSV Vaccine (1 - 1-dose 60+ series) RSV Vaccine (1 - 1-dose 60+ series) [facility] Start: 12-20-2001 Shingrix Vaccine (1 of 2) Shingrix Vaccine (1 of 2) [facility] Start: 12-20-2001 Zoster vaccine hzv live for subcutaneous use ZOSTER (SHINGLES) VACCINE (1 of 2) [facility] Start: 12-20-1996 Lipid panel Lipid Screening [facility] Start: 12-20-1996 Screening for malignant neoplasm of colon [facility] Start: 1991 Lipid panel LIPID SCREENING [facility] Start: 12-20-1972 Screening for malignant neoplasm of cervix CERVICAL CANCER SCREENING DISCUSSION [facility] Start: 12-20-1970 Third diphtheria, tetanus and acellular pertussis (DTaP) vaccination TDAP (ADULT) [facility] Start: 12-20-1970 Urine microalbumin profile DTaP,Tdap,Td Vaccine (1 - Tdap) [facility] Start: 12-20-1969 Annual PCP Team Chronic Disease Visit Annual PCP Team Chronic Disease Visit [facility] Start: 1950 Hepatitis C screening HEPATITIS C VIRUS SCREENING [facility] Start: 1950 Screening for osteoporosis DEXA SCAN DISCUSSION [facility] Start: 1950 Tetanus vaccination TETANUS [facility] End: 07-23-2024 CT Lumbar spine WO contrast CT LUMBAR SPINE WO IVCON Radiology Routine Chronic bilateral low back pain with bilateral sciatica 1 Occurrences starting 06/24/2023 until 07/23/2024 [facility] Work Phone: Comment on above: 1 Occurrences starting 06/24/2023 until 07/23/2024 End: 07-23-2024 MR Thoracic spine WO contrast MRI THORACIC SPINE WO IVCON Radiology Routine 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 1 Occurrences starting 06/24/2023 until 07/23/2024 [facility] Work Phone: Comment on above: 1 Occurrences starting 06/24/2023 until 07/23/2024 Patient Education Stephanie Non Diagn ostic Block [facility] Work Phone: Patient referral [facility] Work Phone: XR Knee - left 3 Views XR KNEE L EFT 3 VIEWS Imaging Routine Pain in prosthetic joint, sequela Ordered: 09/16/2022 [facility] Comment on above: Ordered: 09/16/2022 XR Pelvis and Hip - left Views X R HIP WITH PELVIS LEFT Imaging Routine Pain in prosthetic joint, sequela 09/18/2022 10:11 AM EDT [facility] Work Phone: [facility] Immunizations Immunization Date Immunization Notes Care Provider Fa cili 02-11-2022 Influenza, injectabl e, Madin Hillary Canine Kidney, preservative free, quadrivalent MD Sara Vick Work Phone: [facility] 02-11-2022 influenza virus vacc ine, unspecified formulation Ghanshyam Lombardi MD Work Phone: [facility] 12-03-2021 COVID-19 Comirnaty (Pfizer) Tri-Sucrose 12+ MD Sara Vick Work Phone: [facility] 03-25-2021 COVID-19 mRNA, Comir nicolle (Pfizer) MD Sara Vick Work Phone: [facility] 07-12-2020 COVID-19, mRNA, LNP- S, PF, 30 mcg/0.3 mL dose Wm Nagy [facility] Comment on above: Reason for Medicatio n: Prophylaxis 06-14-2020 COVID-19, mRNA, LNP- S, PF, 30 mcg/0.3 mL dose Wm Nagy [facility] Comment on above: Reason for Medicatio n: Prophylaxis 02-08-2020 Seasonal trivalent influenza vaccine, adjuvanted, preservative free MD Sara Vick Work Phone: [facility] 02-23-2018 influenza, injectabl e, madin hillary canine kidney, preservative free MD Sara Vick Work Phone: [facility] 02-18-2018 pneumococcal polysaccharide vaccine, 23 valent W[facility] Nagy [facility] 06-18-2017 tuberculin skin test ; unspecified formulation Praveen Bynum 02-24-2017 pneumococcal polysaccharide vaccine, 23 valent MD Sara Vick Work Phone: [facility] 02-05-2017 influenza, high dose seasonal, preservative-free MD Sara Vick Work Phone: [facility] 02-05-2017 pneumococcal conjuga te vaccine, 13 valent [facility] 02-02-2016 influenza, seasonal, injectable, preservative free MD Sara Vick Work Phone: [facility] 10-20-2012 pneumococcal polysaccharide vaccine, 23 valent Wm Nagy [facility] Payers Date Payer Category Payer Unknown [id number] 2022 Self-pay [id number] 2022 Unknown [id number] 2022 Private Health Insurance 2018 Medicare [id number] 1959 Private Health Insurance [id number] 1950 Unknown [id number] 2.16.84 0.1.806863.3.579.2.727 1950 Unknown [id number] 2.16.8 40.1.905563.3.579.2.159 1951 Unknown [id number] 2.16.84 0.1.157800.3.579.2.593 1951 Unknown [id number] 2.16.84 0.1.668900.3.579.2.593 1951 Unknown [id number] 2.16.84 0.1.345128.3.579.2.593 1951 Unknown [id number] 2.16.84 0.1.322004.3.579.2.593 1951 Unknown [id number] 2.16.84 0.1.204547.3.579.2.593 1951 Unknown [id number] 2.16.84 0.1.828376.3.579.2.593 1951 Unknown [id number] 2.16.84 0.1.174036.3.579.2.593 1951 Unknown [id number] 2.16.84 0.1.700749.3.579.2.593 1951 Unknown [id number] 2.16.84 0.1.760371.3.579.2.593 1951 Unknown [id number] 2.16.84 0.1.189917.3.579.2.593 1951 Unknown [id number] 2.16.84 0.1.393161.3.579.2.593 1951 Unknown [id number] 2.16.84 0.1.130382.3.579.2.593 1951 Unknown [id number] 2.16.84 0.1.481285.3.579.2.593 1951 Unknown [id number] 2.16.84 0.1.032729.3.579.2.593 1951 Unknown [id number] 2.16.84 0.1.262754.3.579.2.593 1951 Unknown [id number] 2.16.84 0.1.004499.3.579.2.593 1951 Unknown [id number] 2.16.84 0.1.406011.3.579.2.593 1951 Unknown [id number] 2.16.84 0.1.503819.3.579.2.593 1951 Unknown [id number] 2.16.84 0.1.067557.3.579.2.593 1951 Unknown [id number] 2.16.84 0.1.627769.3.579.2.593 1951 Unknown [id number] 2.16.84 0.1.685344.3.579.2.593 1951 Unknown [id number] 2.16.84 0.1.406493.3.579.2.593 1951 Unknown [id number] 2.16.84 0.1.687609.3.579.2.593 1951 Unknown [id number] 2.16.84 0.1.678362.3.579.2.593 1951 Unknown [id number] 2.16.84 0.1.596257.3.579.2.593 1951 Unknown [id number] 2.16.84 0.1.710357.3.579.2.593 1951 Unknown [id number] 2.16.84 0.1.792368.3.579.2.593 1951 Unknown [id number] 2.16.84 0.1.898204.3.579.2.593 1951 Unknown [id number] 2.16.84 0.1.733323.3.579.2.593 1951 Unknown [id number] 2.16.8 40.1.008194.3.579.2.983 1951 Unknown [id number] 2.16.8 40.1.321889.3.579.2.983 1951 Unknown [id number] 2.16.8 40.1.425353.3.579.2.983 1951 Unknown [id number] 2.16.8 40.1.063263.3.579.2.727 1951 Unknown [id number] 2.16.8 40.1.582487.3.579.2.727 1951 Unknown [id number] 2.16.8 40.1.318545.3.579.2.727 1951 Unknown [id number] 2.16.8 40.1.487981.3.579.2.727 1951 Unknown [id number] 2.16.84 0.1.590739.3.579.2.1259 1951 Unknown [id number] 2.16.84 0.1.303601.3.579.2.1259 1951 Unknown [id number] 2.16.84 0.1.529696.3.579.2.1259 Unknown Unknown [id number] Unknown [id number] 2.16.8 40.1.950998.3.579.2.531 Unknown [id number] 2.16.8 40.1.320804.3.579.2.531 Unknown [id number] 2.16.8 40.1.364690.3.579.2.531 Unknown [id number] 2.16.8 40.1.650718.3.579.2.531 Social History Date Type Detail Facility Start: 06-18-2017 Unknown if ever smoked [facility] Start: 04-24-2020 End: 06-24-2023 Tobacco smoking status WIIS Never smoked tobacco (finding) [facility] Start: 1950 Sex Assigned At Female F [facility] Start: 06-24-2023 Sex Assigned At F [facility] Start: 09-18-2022 Tobacco use and exposure Smokeless tobacco non-user [facility] Start: 09-18-2022 End: 06-24-2023 Alcohol intake Current drinker of alcohol (finding) [facility] Start: 09-18-[address] [facility] Start: 1950 Sex Assigned At Not on file [facility] [employer] [facility] Start: 06-24-2023 Alcohol intake [facility] National Score (1-100), lower number is lower risk 62 [facility] Medical Equipment Procedure Code Equipment Code Equipment Origin al Text Equipment Identifier Dates Arthroplasty, knee, total, minimally invasive Orthopaedic cement, non-medicated [id number] FDA Start: 05-07-2020 Arthroplasty, knee, total, minimally invasive Uncoated knee femur prosthesis, metallic ()[id number] FDA Start: 05-07-2020 Arthroplasty, knee, total, minimally invasive Tibial insert ()[id number] FDA Start: 05-07-2020 Arthroplasty, knee, total, minimally invasive Uncoated knee tibia prosthesis, metallic ()[id number] FDA Start: 05-07-2020 Arthroplasty, knee, total, minimally invasive Polyethylene patella prosthesis ()[id number] FDA Start: 05-07-2020 Goals Date Patient Goal Desired Activity /State Functional Status Date Assessment Result Facility 07-26-[address] [facility] 07-26-[address] [facility] 03-08-[address] [facility] Clinical Notes 10-07-2021 to 08-08-2023 Flor [...] PATIENT PRESENTS WITH AN IMPLANTABLE OR ATTACHED ECHO VASCULAR TECHNOLOGIST: No RADIOLOGY DEPARTMENT: MR; Exam(s) Completed: Spine: Thoracic spine PERIPHERAL IV DATA: Not applicable SIGNED BY: BAY Leo) August 08, 2023 3:59 PM documented in this encounter [facility] 08-08-2023 Note HNO ID: [id number] Author: FLOR ZIEGLER RT (R) Service: Radiology [...] PATIENT PRESENTS WITH AN IMPLANTABLE OR ATTACHED ECHO VASCULAR TECHNOLOGIST: No RADIOLOGY DEPARTMENT: MR; Exam(s) Completed: Spine: Thoracic spine PERIPHERAL IV DATA: Not applicable SIGNED BY: RT Felipa(R) August 08, 2023 3:59 PM [facility] 07-13-2023 History of Present illness Narrative [...] PATIENT PRESENTS WITH AN IMPLANTABLE OR ATTACHED ECHO VASCULAR TECHNOLOGIST: No RADIOLOGY DEPARTMENT: CT; Exam(s) Completed: Spine PERIPHERAL IV DATA: Not applicable SIGNED BY: RT Se(Bryce) July 13, 2023 10:44 AM documented in this encounter [facility] 07-13-2023 Note HNO ID: [id number] Author: TORRIE ABRAHAM RT(R) Service: Radiology Author [...] PATIENT PRESENTS WITH AN IMPLANTABLE OR ATTACHED ECHO VASCULAR TECHNOLOGIST: No RADIOLOGY DEPARTMENT: CT; Exam(s) Completed: Spine PERIPHERAL IV DATA: Not applicable SIGNED BY: TorrieRT Courtney(R) July 13, 2023 10:44 AM [facility] 06-24-2023 Note HNO ID: [id number] Author: GHANSHYAM LOMBARDI MD Service: ? Author [...] discussion. 30 minutes spent Ghanshyam Lombardi MD [facility] 06-24-2023 History of Present illness Narrative [...] Ghanshyam Lombardi MD documented in this encounter [facility] 05-15-2023 Evaluation note Encounter Date Diagnosis Assessment [...] In the meantime, she can continue taking Lodi as needed all as well as Gabapentin [...] and no personal patient information was compromised. [email or web address] Other 01-24-2024 Evaluation note* Encounter Date Diagnosis [...] agrees with plan all questions were addressed. [email or web address] Other 12-28-2023 Evaluation note* Encounter Date Diagnosis Assessment Notes Treatment Notes Treatment Clinical Notes Mar, Lumbar radiculopathy (ICD-10 - M54.16) 72 year old female evaluated via telephonic call for follow up and medication refill for chronic pain. She voices complaints of low back pain with intermittent radiation down the right lower extremity. She continues taking Lodi with relief and is requesting a refill of this today. I discussed different treatment options in detail with the patient. She feels medication is managing her pain and does not wish to proceed with injections at this time. I encouraged the patient to start physical therapy as previously discussed. She can also continue taking medications as prescribed and I will refill her Lodi as she feels this provides an element [...] pain (ICD-10 - G89.29) Continue medication management. [email or web address] Other 12-15-2023 Evaluation note* Encounter Date Diagnosis [...] pain (ICD-10 - G89.29) Continue medication management. [email or web address] Other 10-24-2023 Evaluation note* Encounter Date Diagnosis Assessment Notes Treatment Notes Treatment Clinical Notes Jan, Lumbar radiculopathy (ICD-10 - M54.16) [email or web address] Other 10-10-2023 Evaluation note* Encounter Date Diagnosis [...] regarding this. Meanwhile, I will refill her Lodi as it does provide an element of [...] educated on the risks and benefits of halfway opioid use. Hydrocodone/Acetamin ophen was refilled today, opioid risk assessment was done as well as pill count. Patient is compliant with opioid medication. The patient denies any opioid related side effects. [email or web address] Other 09-22-2023 Evaluation note* Encounter Date Diagnosis [...] educated on the risks and benefits of halfway opioid use. Hydrocodone/Aceta minophen was refilled today, opioid risk assessment was done as well as pill count. Patient is compliant with opioid medication. The patient denies any opioid related side effects. Patients last urine drug screen was positive for alcohol, she is counselled against consuming alcohol. [email or web address] Other 08-25-2023 Evaluation note* Encounter Date Diagnosis [...] M51.36) Stable, follow up in 4 weeks. [email or web address] Other 06-02-2023 Evaluation note* Encounter Date Diagnosis [...] nerve blocks in the future if needed. [email or web address] Other 06-01-2023 History of Present illness Narrative* [...] 09/18/2022 10:58 AM Patient: Leelee Cedillo MR#: [id number] : 1950 Age: 71 y.o. Referring Physician: Sorin Dickerson DO Insurance: Payor: [facility] / Plan: MEDICARE [employer] HMO PPO [...] repair GALL BLADDER SURGERY 1999 BACK SURGERY 6-2633-5-2017- FOOT SURGERY [id number] Family History: Her family history is not [...] [x]cane, []bracing Are you followed by a english language learner teacher? [] [x] Name: Are you followed by [...] repair GALL BLADDER SURGERY 1999 BACK SURGERY 3-8217-5-2017- FOOT SURGERY [id number] No family history on file. Social History [...] Rash Flagyl [Metronidazole] Dyspepsia [facility] German HospitalComment on above:Result Comment: Electronically Signed By: Rachel SALTER\.br\Date and Time Signed: 07/27/22 15:21 EDT\.br\Electronically Co-Signed By: Ottoniel RUFF, Francisco Beck\.br\Date and Time Co- Signed: 07/27/22 17:04 [id number] Hospital Discharge instructions Patient Education 07/27/2022 15:20:26 [...] Follow these instructions at home: Medicines Take yqml-qmn-ykizmic and prescription medicines only as told by [...] 04/06/2006 Document Revised: 07/29/2019 Document Reviewed: 02/23/2019 [employer] Patient Education 2020 [employer] 07/27/2022 15:20:26 Vasovagal Syncope, Pediatric Vasovagal [...] ?Squatting. ?Moving his or her legs. Give lwti-eic-hfttmpu and prescription medicines only as told by [...] 01/13/2009 Document Revised: 03/19/2018 Document Reviewed: 05/12/2017 [employer] Patient Education 2020 [employer]. Follow Up Care 07/26/2022 11:32:57 With:Sara Vick Address: [address] [place] [address]- Business (1) When: Unknown Comments:Call for followup appointment 7-10 days With:Julio Ferrara MD, NEU Address: [address] [place] [address]- When:2 to 4 weeks [facility]04-09-2023 [...] With When Contact Information Sara Vick [address] [facility] [place] [address]- Business (1) Additional Instructions: Call for followup appointment 7-10 days Josias RUFF, CARLOS Thacker Within 2 to 4 weeks [address] [place] [address]- Additional Instructions: Near-Syncope Vasovagal Syncope, Pediatric Extracted [...] it is acute or subacute. It might electrode turner and finisher to just be some focal white matter [...] specified devices) recent right foot surgery in [facility]/podiatry secondary to non healing food wound. Currently has wound vac intact to this operative site. 6. Osteoarthritis (M19.90: Unspecified osteoarthritis, unspecified site) osteoarthritis status post left hip replacement Has chronic back pain. 7. Morbid obesity (E66.01: Morbid (severe) obesity due to excess calories) -BMI 70.73 -Airborne Weapons Technical Manager on diet, exercise, weight loss and lifestyle [...] Pending * HgbA1c 07/27/22 [facility]04-08-2023 NoteUniversity Hospitals Portage Medical CenterComment on above:Result Comment: Electronically Signed [...] if her pain increases in the future. [email or web address] Other [id number] NotePROCEDURE: XR FOOT RT MIN 3 VIEWS, [...] Electronically authenticated by: JULIO LOBATO Date: 2022-04-23 13:00[facility]01-04-2023 NotePROCEDURE: XR FOOT RT MIN 3 [...] Electronically authenticated by: JULIO LOBATO Date: 2022-04-23 13:00[facility]12-12-2022 NotePROCEDURE: XR ANKLE RT MIN 3 [...] Electronically authenticated by: ALFRED UMAÑA Date: 2022-03-31 18:19[facility]11-19-2022 Hospital Discharge instructions Patient Education 03/08/2022 [...] 04/06/2006 Document Revised: 04/15/2017 Document Reviewed: 03/23/2017 [employer] Patient Education 2020 [employer] 03/08/2022 17:44:27 Hip Dislocation Hip Dislocation [...] Follow these instructions at home: Medicines Take sgag-vwj-gfcouzw and prescription medicines only as told by your health care provider. Ask your health care provider if the medicine prescribed to you: ?Requires you to avoid driving or using heavy machinery. ?Can cause constipation. You may need to take actions to prevent or treat constipation, such as: ?Drink enough fluid to keep your urine pale yellow. ?Take gpwt-tly-offgucl or prescription medicines. ?Eat foods that are [...] in the [place] Do not drive yourself [facility]. Summary Hip dislocation happens when the [...] 12/30/2001 Document Revised: 12/29/2018 Document Reviewed: 12/30/2018 [employer] Patient Education 2020 [employer]. Follow Up Care 03/08/2022 13:37:46 With:Sorin DICKERSON Address: [address] [place] [address] Business (1) When:03/11/2022 17:44:09 Comments:Call to establish follow-up care. Wear brace until follow-up with orthopedic surgery. With:Sara Vick Address: [address] [place] [address] [place] [address]- Business (1) When:03/11/2022 17:43:29 Comments:Call the office [...] negative findings were considered in medical decision-making. [email or web address] Other [id number] NotePROCEDURE: XR FOOT RT MIN 3 VIEWS [...] Electronically authenticated by: JULIO LOBATO Date: 2021-10-07 11:44[facility] noteNo InformationNort Mfuse Other Evaluation noteNo assessment information available [facility] Work Phone: Evaluation note* Diagnosis Pain in prosthetic joint, sequela- Primary [facility] Diagnosis Adjacent segment disease of lumbar spine with history of fusion procedure- Primary Chronic bilateral low back pain with bilateral sciatica documented [facility] Diagnosis 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) documented in this [facility]* Diagnosis Chronic bilateral low back pain with bilateral sciatica documented in this [facility]* Diagnosis Onset Date Resolution Status Chronic pain acute Lumbar degenerative disc disease acute Lumbar radiculopathy acute Lumbosacral spondylosis acut e Sacroiliitis acute 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 acute Chronic pain acute Lumbar degenerative disc disease acute Lumbar radiculopathy acute Lumbosacral spondylosis acut e Sacroiliitis acute [facility] Work Phone: Evaluation note* Diagnosis 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 documented in this encounter [facility] general Narrative - Reported* Type Description Date [...] 2 021 Surgical History back surgeries x5 [facility] [employer] yuandr gilman 2018 [email or web address] Other HisBoonty general Narrative - Reported* Type Description Date [...] 2 021 Surgical History back surgeries x5 [facility] [employer] yuandr gilman 2019 Hospitalization History see above [email or web address] Other Hisoaiw general Narrative - Reported* Type Description Date [...] History back surgeries x5 [facility] carisa-dr gilman 2018 Surgical History lazer surgery on her lt leg veins and she also had sclero tx on b/l legs 2022 Hospitalization History see above [email or web address] Other Hospital course Narrative No data available [...] SAC SPI W/SKULL 2/3 VW Ros Cedeño APRN.ADJUNCT INSTRUCTOR IN ECONOMICS [address] [place] [address] X[facility] [place] [address] Referral ID Status Reason Start Date Expiration Date V isits Requested Visits Authorized [id number] Closed Auto-Generate d Referral 02/25/2023 03/26/2024 1 1 * Diagnostic Procedure Only (Routine) - Closed Specialty Diagnoses / Procedures Referred By Maximiliano dee Referred To Contact XR IMAGING Diagnoses Fusion of spine of thoracolumbar region Procedures XR LUMBAR MOTION 4V AP/LAT/ FLEX/EXT RADEX SPINE LUMBOSACRAL MINIMUM 4 VIEWS Ros Cedeño APRN.ADJUNCT INSTRUCTOR IN ECONOMICS [address] [place] [phone] X[facility] [place] [address] Referral ID Status Reason Start Date Expiration Date V isits Requested Visits Authorized [id number] Closed Auto-Generate d Referral 02/25/2023 03/26/2024 1 1 [facility] for referral (narrative)* Diagnostic Procedure Only (Routine) - Closed Specialty Diagnoses / Procedures Referred By Maximiliano t Referred To Contact MR IMAGING Diagnoses 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 Procedures MRI THORACIC SPINE WO IVCON MRI SPINAL CANAL THORACIC W/O CONTRAST MATRL Ghanshyam Lombardi MD [address] [place] [address] Mr Imaging [place] [address] Referral ID Status Reason Start Date Expiration Date V isits Requested Visits Authorized [id number] Closed Auto-Generate d Referral 08/07/2023 09/07/2023 1 1 [facility] for visit Narrative* Diagnostic Procedure Only (Routine) - Closed Specialty Diagnoses / Procedures Referred By Maximiliano t Referred To Contact XR IMAGING Diagnoses Fusion of spine of thoracolumbar region Procedures XR SCOLIOSIS PA STAND/LAT 2V RADEX ENTIR THRC LMBR CRV SAC SPI W/SKULL 2/3 VW Ros Cedeño, 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 [address] [place] [address] X[facility] [place] [address] Referral ID Status Reason Start Date Expiration Date V isits Requested Visits Authorized [id number] Closed Auto-Generate d Referral 02/25/2023 03/26/2024 1 1 [facility] Advance Directives No Advanced Directives Records Found [...] FOLLOW UP; PVR'S, FF ULTRASOUND DONE AT [facility] MED REFILL FOR CHRONIC PAIN Reason for [...] W/O CONTRAST MATERIAL Ghanshyam Lombardi MD [address] [facility] [place] [address] Ct Imaging [facility]95 Referral ID Status Reason Start Date Expiration Date Visits Requested Visits Authorized [id number] Pending Review Auto-Generat ed Referral 06/24/2023 07/23/2024 1 1 Specialty Diagnoses / Procedures Referred By Contac t Referred To Contact MR IMAGING Diagnoses 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 Procedures MRI THORACIC SPINE WO IVCON MRI SPINAL CANAL THORACIC W/O CONTRAST MATRL Ghanshyam Lombardi MD [address] [place] [phone] Mr Imaging [facility]95 Referral ID Status Reason Start Date Expiration Date Visits Requested Visits Authorized [id number] Pending Review Auto-Generat ed Referral 06/24/2023 07/23/2024 1 1 Specialty Diagnoses / Procedures Referred By Contac t Referred To Contact Diagnoses Pain in prosthetic joint, sequela Procedures XR HIP WITH PELVIS LEFT Perfecto Burch MD [address] [place] [address] Referral ID Status Reason Start Date Expiration Date V isits Requested Visits Authorized [id number] New Request 09/18/2022 10/13/2023 1 1 Specialty Diagnoses / Procedures Referred By Contac t Referred To Contact Diagnoses Pain in prosthetic joint, sequela Procedures XR KNEE LEFT 3 VIEWS Perfecto Burch MD [address] [place] [address] Referral ID Status Reason Start Date Expiration Date V isits Requested Visits Authorized [id number] New Request 09/16/2022 10/11/2023 1 1 Additional Source Comments INFORMATION SOURCE (unrecogn ized section and content) DATE CREATED AUTHOR 12/13/2017 [facility] DATE CREATED AUTHOR AUTHOR'S ORGANIZ ATION 07/10/2018 [facility] DATE CREATED AUTHOR AUTHOR'S ORGANIZ ATION 02/25/2019 [facility] ical Center DATE CREATED AUTHOR AUTHOR'S ORGANIZ ATION 03/01/2022 [facility] Specialist DATE CREATED AUTHOR AUTHOR'S ORGANIZ ATION 07/26/2022 [facility] DATE CREATED AUTHOR AUTHOR'S ORGANIZ ATION 09/27/2022 [facility] DATE CREATED AUTHOR AUTHOR'S ORGANIZ ATION 09/27/2022 [facility] DATE CREATED AUTHOR AUTHOR'S ORGANIZ ATION 11/26/2022 [facility] DATE CREATED AUTHOR AUTHOR'S ORGANIZ ATION 07/29/2023 [facility] DATE CREATED AUTHOR AUTHOR'S ORGANIZ ATION 08/09/2023 [facility] d[facility] Specialists EPIC DATE CREATED AUTHOR AUTHOR'S ORGANIZ ATION 11/05/2023 [facility] REASON FOR VISIT (unrecogniz ed section and content) Specialty Diagnoses / Procedures Referred By Contac t Referred To Contact Diagnoses Pain in prosthetic joint, sequela Procedures XR HIP WITH PELVIS LEFT Perfecto Burch MD [address] [place] [address] Referral ID Status Reason Start Date Expiration Date V isits Requested Visits Authorized [id number] New Request 09/18/2022 10/13/2023 1 1 Reason Comments Pain New Patient Reason Comments New Patient Specialty Diagnoses / Procedures Referred By Contac t Referred To Contact CT IMAGING Diagnoses Chronic bilateral low back pain with bilateral sciatica Procedures CT LUMBAR SPINE WO IVCON CT LUMBAR SPINE W/O CONTRAST MATERIAL Ghanshyam Lombardi MD [address] [place] [address] Ct Imaging [facility]95 Referral ID Status Reason Start Date Expiration Date V isits Requested Visits Authorized [id number] Closed Auto-Generate d Referral 07/11/2023 08/10/2023 2 [...] A17 300 Ghanshyam Lombardi MD [address] [place] [address] Radio [facility] Main [address] [place] [phone] Referral ID Status Reason Start Date Expiration Date Visits Re quested Visits Authorized [id number] Closed 08/07/2023 09/07/2023 1 1 Patient Care team informatio n (unrecognized section and content) Team Status: Active Member Role Status Dates Sara Vick MD Primary Care Provider Active Team Status: Inactive Member Role Status Dates Sara Vick MD Primary Care Provider, Attending Pr dusty Active Rpg Programmer Analyst Relationship Specialty Start Date End Date Sara Vick MD [address] [place] [address] PCP - General Family Medicine 04/09/22 Rpg Programmer Analyst Relationship Specialty Start Date End Date Sara Vick MD [address] [place] [address] PCP - General Family Medicine 04/09/22 Team [...] Team Status: Inactive Member Role Status Dates Laryr Brown MD Attending Provider Active Sta rt: [...] May 22, 2023 End: May 22, 2023 Rpg Programmer Analyst Relationship Specialty Start Date End Date Sara Vick MD PCP - General Family Medicine 06/09/11 Rpg Programmer Analyst Relationship Specialty Start Date End Date Sara Vick MD PCP - General Family Medicine 06/09/11 Rpg Programmer Analyst Relationship Specialty Start Date End Date Sara [...] or prosecute any alcohol or drug abuse patient.[facility] the event this information is protected by the Federal Confidentiality of Alcohol and Drug Abuse Patient Records regulations: The Federal rules restrict any use of the information to criminally investigate or prosecute any alcohol or drug abuse patient.[facility] the event this information is protected by the Federal Confidentiality of Alcohol and Drug Abuse Patient Records regulations: The Federal rules restrict any use of the information to criminally investigate or prosecute any alcohol or drug abuse patient.[facility] the event this information is protected by the Federal Confidentiality of Alcohol and Drug Abuse Patient Records regulations: The Federal rules restrict any use of the information to criminally investigate or prosecute any alcohol or drug abuse patient.[facility] FOR RECORDS PERTAINING TO PATIENTS WHO ARE [...] BE BASED ON THE PRIMARY CLINICAL RECORDS. [facility] [employer] [facility]. provides no warranty or guarantee of the accuracy or completeness of information in this document.
== END 2024-12-07 09:33 | disposition home or self-care (01) ==
LOC: LAB 09:32
PROVIDERS: PCP Family Medicine; Visit Provider Family Medicine
DX: R23.8 Other skin changes (principal); M62.830 Muscle spasm of back; I10 Essential (primary) hypertension; M19.90 Unspecified osteoarthritis, unspecified site; E11.42 Type 2 diabetes mellitus with diabetic polyneuropathy; E78.5 Hyperlipidemia, unspecified; Z12.12 Encounter for screening for malignant neoplasm of rectum; D64.9 Anemia, unspecified; E03.9 Hypothyroidism, unspecified; E55.9 Vitamin D deficiency, unspecified; R53.83 Other fatigue
CPT/HCPCS: G0328

== ENCOUNTER 2024-12-09 11:14 | Outpatient (OUT) | payer MEDICARE, SELFPAY ==
--- OUTSIDE RECORDS SUMMARY | 2024-11-28 07:00 | XMS_ITS ---
Author Organization [facility] in [place] Address [address] [place] [address] Care Team Providers Care Proj Engineer Name Role Phone Nixon Carrizales Primary Care Provider Allergies Allergen (clinical drug ingredient) Drug/Non Drug [...] neg BILIRUBIN neg KETONE neg SPECIFIC GRAVITY 1010 BLOOD ++ PH 5 PROTEIN neg UROBILINOGEN neg NITRITE neg LEUKOCYTE ESTERASE large REASON FOR VISIT Presetns to office alone for c/o coughing up green phlegm x1 week, Completed atb 3 days ago for UTI. Follow up urine done Medications Medication SIG (Take, Route, Frequency, Duration) Notes Start Date End Date Status Triamcinolone Acetonide 0.1 % 1 application Externally bid 11/28/2024 Active Benzonatate 200 MG 1 capsule Orally Thr ee times a day for 7 days 11/28/2024 Active Vitamin D3 50 MCG (1999 UT) 1 capsule Or ally Once a day for 30 day(s) Active Meloxicam 15 MG TAKE 1 TABLET EVERY DAY for 90 Active Losartan Potassium 100 MG 1 tablet Orall y Once a day for 30 days Active Rollator 1 rollator to safely complete ADLs DX M51.36 for 365 days 10/11/2024 Active Pantoprazole Sodium 40 MG TAKE 1 TABLET EVERY DAY for 90 Active [employer] & Syringes use for monthly b12 injections for 365 days 23G x 1 3ml syringe 08/16/2024 Active Levothyroxine Sodium 125 MCG TAKE 1 TABL ET EVERY DAY for 90 Active Gabapentin 600 MG TAKE 2 TABLETS Orall y bid for 30 days Active Cyanocobalamin 1000 MCG/ML INJECT 1ML IN TO THE MUSCLE EVERY MONTH for 90 Active Baclofen 20 MG 1 tab Orally qhs 11/21/2024 Active ALPRAZolam 0.25 MG 1 tablet Orally Twice a day for 30 days F41,9 10/11/2024 Active Alendronate Sodium 70 MG TAKE 1 TABLET E VERY WEEK for 84 Active Accu-Chek FastClix Lancets - TEST BLOOD SUGAR EVERY DAY for 90 Active levoFLOXacin 750 MG 1 tablet Orally Once a day for 10 day(s) 11/28/2024 Active Social History Tobacco Use: Social History Observation Description Date Details (start date - stop date) Never Smoker NA - NA Tobacco Use/Smoking Question Answer Notes Patient is a nonsmoker AUDIT-C (Standard) Question Answer Notes Did you have a drink containing alcohol in the p ast year? No Points 0 Interpretation Negative Problems Problem Type SNOMED Code ICD Code Onset Dates Problem Status W/U Status Risk Notes Problem Recurrent urinary tract infection (789636043) Recurrent UTI (N39.0) Active confirmed Problem 80705523 Acute bronchitis (466.0) Active confirmed Problem 931269347 Frequency of micturition (R35.0) Active confirmed Vital Signs Weight 190.8 lbs 11/28/2024 Height 68 in 11/28/2024 Blood pressure systolic 148 mm Hg 11/29/19 25 Blood pressure diastolic 76 mm Hg 025 BMI 29.01 kg/m2 11/28/2024 Encounters Encounter Location Date Provider Diagnosis [facility] Medicine [address] [place] [address] 11/28/2024 Nixon Hoy Frequency of micturition R35.0 ; Acute bronchitis 466.0 and Recurrent UTI N39.0 Assessments Encounter Date Diagnosis (ICD Code) Assessment Notes Treatment Notes Treatment Clinical Notes Section Notes 11/28/2024 Frequency of micturition (ICD-10 - R35.0) 11/28/2024 Acute bronchitis (ICD9-CM - 466.0) 11/28/2024 Recurrent UTI (ICD-10 - N39.0) Plan Of Treatment Medication Medication Name Sig Start Date Stop Date Notes Triamcinolone Acetonide 0.1 % 1 application Externally bid 11/28/2024 Benzonatate 200 MG 1 capsule Orally Thr ee times a day for 7 days 11/28/2024 levoFLOXacin 750 MG 1 tablet Orally Once a day for 10 day(s) 11/28/2024 Pending Test Test Name Order Date UA DIP NONAUTO WO MICRO (80434) - IN OFF ICE 11/28/2024 Progress Notes * Leelee CEDILLO MDOB: 2 (73 yo F)Acc No.[id number]:11/28/2024 Progress Note Patient: Leelee LAM Provider: Clary Carrizales ([facility])MD :1950 A ge:73 Y S ex:Female Date:11/28/2024 Address:[address] [place], [place] [id number] Check In:10:47 AM ESTCheck O ut:11:30 AM EST Subjective: * Chief Complaints: * P resetns to office alone for c/o coughing up green phlegm x1 weekCompleted atb 3 days ago for UTI. Follow up urine done * Active Problem List H81.399 Other peripheral [...] On:08/22/2022U Status:confirmed M51.9 Lumbar disc disease Modified On:11/12/2022U Status:confirmed J02.9 Pharyngitis Modified On:08/22/2022 Status:confirmed J20.9 Acute bronchitis Modified On:08/22/2022 Status:confirmed M54.30 Sciatica Modified On:08/22/2022 Status:confirmed L03.90 [...] vein Modified On:08/22/2022 Status:confirmed R06.00 Dyspnea Modified On:05/05/2023W/U Status:confirmed M75.40 Shoulder impingement syndrome Modified On:07/20/2023 Status:confirmed Z91.81 At risk for falls Modified On:08/22/2022 Status:confirmed E53.8 Deficiency of vitami n B12 Modified On:07/20/2023 Status:confirmed G47.00 Insomnia Modified On:08/22/2022 Status:confirmed 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 Modified On:08/22/2022 Status:confirmed 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, bilateral Modified On:08/22/2022 Status:confirmed F41.8 Anxiety and depressi on Modified On:08/22/2022 Status:confirmed 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 Modified On:08/22/2022 Status:confirmed T14.8XXA Bruising Modified On:08/22/2022 Status:confirmed M48.061 Lumbar spinal stenos is Modified On:01/07/2023 Status:confirmed M17.11 [facility] Modified On:08/22/2022 Status:confirmed I82.451 Acute embolism and t hrombosis of right peroneal vein Modified On:08/22/2022 Status:confirmed A04.72 Clostridioides diffi cile diarrhea Modified On:08/22/2022 Status:confirmed U07.1 COVID-19 Modified On:08/22/2022 Status:confirmed N81.6 Rectocele without ut erine prolapse Modified On:08/22/2022 Status:confirmed R05.8 Other cough Modified On:08/22/2022 Status:confirmed I80.00 Thrombophlebitis of superficial vein of lower leg Modified On:08/22/2022 Status:confirmed L89.519 [facility], unspecified stage Modified On:08/02/2022U Status:confirmed I67.82 Cerebral ischemia Modified On:08/07/2022U Status:confirmed L97.312 Non-healing ulcer of ankle, right, with fat layer exposed Modified On:10/30/2022U Status:confirmed 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, unspecified whether oysterman insulin use Modified On:08/09/2022U Status:confirmed E11.621 Type [...] On:02/20/2023U Status:confirmed L89.892 Decubitus ulcer of c half-way, stage 2, unspecified laterality Modified On:03/03/2023U Status:confirmed M51.26 Other intervertebral disc displacement, lumbar region Modified On:04/16/2023U Status:confirmed L97.512 Chronic ulcer of rig ht foot with fat layer exposed Modified On:07/13/2023U Status:confirmed L89.512 Pressure injury of r ight ankle, stage 2 Modified On:07/13/2023/U Status:confirmed L97.512 Chronic ulcer of toe of right foot with fat layer exposed Modified On:06/10/2023U Status:confirmed M47.817 Arthritis of lumbosa cral spine Modified On:08/11/2023U Status:confirmed E53.8 B12 deficiency Modified On:01/19/2024U Status:confirmed R32 Urinary incontinence Modified On:02/10/2024U Status:confirmed L89.892 Pressure ulcer of to e of left foot, stage 2 Modified On:07/29/2024U Status:confirmed L89.892 Decubitus ulcer of l eft foot, stage 2 Modified On:07/29/2024U Status:confirmed J32.9 Sinusitis Modified On:09/06/2024U Status:confirmed L89.892 Decubitus ulcer of r ight foot, stage 2 Modified On:09/09/2024U Status:confirmed R23.8 Easy bruising Modified On:10/11/2024U Status:confirmed I73.89 Other peripheral vas cular diseases Modified On:10/31/2024U Status:confirmed N39.0 Recurrent UTI Modified On:11/28/2024U Status:confirmed 466.0 Acute bronchitis Modified On:11/28/2024U Status:confirmed R35.0 Frequency of micturi tion Modified On:11/28/2024U Status:confirmed * Medical History: * Surgical History: s pine surgery 12/2018cataract surgery kin Substitute with excisional biopsy- right ankle/foot 08/10Carpal Tunnel Release 07/03/10D&C 02/09/14Excision of Ganglion Cyst 2011Knee Arthroscopy, Rt 2011Cholecystectomy 2008Rotator Cuff Repair, rt 2010Meniscus Repair, Rt 2012Revision Fusion T11-L4 Total Knee Rt 05/10Laser Ablation small Saphenous vein, rt 05/21/22Venous Ablation 06/03/22Ablation Left Varicose Veins 06/19/22Lumbar Epidural Steroid injection, Dr. Brown * Hospitalization/Major Diagno stic Procedure: S gregory activity- 08/10Multiple times for surgeries Hip dislocation [...] Use/Smoking P atient is a n onsmoker D rug/Alcohol: A MIREYA-C (Standard) D id you have a drink containing alcohol in the past year? N o P oints 0 I nterpretation N egative * Medications: T akingAccu-Chek FastClix Lancets(Lancets) - Miscellaneous TEST BLOOD SUGAR EVERY DAY Alendronate Sodium 70 MG Tablet TAKE 1 TABLET EVERY WEEK ALPRAZolam 0.25 MG Tablet 1 tablet Orally Twice a day F41,9Baclofen 20 MG Tablet 1 tab Orally qhs Cyanocobalamin 1000 MCG/ML Solution INJECT 1ML INTO THE MUSCLE EVERY MONTH Gabapentin 600 MG Tablet TAKE 2 TABLETS Orally bid Levothyroxine Sodium 125 MCG Tablet TAKE 1 TABLET EVERY DAY Losartan Potassium 100 MG Tablet 1 tablet Orally Once a day Meloxicam 15 MG Tablet TAKE 1 TABLET EVERY DAY [employer] Syringes use for monthly b12 injections 23G x 1 3ml syringePantoprazole Sodium 40 MG Tablet Delayed Release TAKE 1 TABLET EVERY DAY Rollator 1 rollator to safely complete ADLs DX M51.36 Vitamin D3 50 MCG (2000 UT) Capsule 1 capsule Orally Once a day Taking Accu-Chek FastClix Lancets(Lancets) - Miscellaneous TEST BLOOD SUGAR EVERY DAY Taking Alendronate Sodium 70 MG Tablet TAKE 1 TABLET EVERY WEEK Taking ALPRAZolam 0.25 MG Tablet 1 tablet Orally Twice a day F41,9Taking Baclofen 20 MG Tablet 1 tab Orally qhs Taking Cyanocobalamin 1000 MCG/ML Solution INJECT 1ML INTO THE MUSCLE EVERY MONTH Taking Gabapentin 600 MG Tablet TAKE 2 TABLETS Orally bid Taking Levothyroxine Sodium 125 MCG Tablet TAKE 1 TABLET EVERY DAY Taking Losartan Potassium 100 MG Tablet 1 tablet Orally Once a day Taking Meloxicam 15 MG Tablet TAKE 1 TABLET EVERY DAY Taking [employer] Syringes use for monthly b12 injections 23G x 1 3ml syringeTaking Pantoprazole Sodium 40 MG Tablet Delayed Release TAKE 1 TABLET EVERY DAY Taking Rollator 1 rollator to safely complete ADLs DX M51.36 Taking Vitamin D3 50 MCG (1999) Capsule 1 capsule Orally Once a day DiscontinuedCefdinir 300 MG Capsule 2 capsule Orally once a day Pyridium(Phenazopyridine HCl) 200 MG Tablet 1 tablet after meals Orally Three times a day Medication List reviewed and reconciled with the patientDiscontinued Cefdinir 300 MG Capsule 2 capsule Orally once a day Discontinued Pyridium(Phenazopyridine HCl) 200 MG Tablet 1 tablet after meals Orally Three times a day Medication List reviewed and reconciled with the patient * Allergies: S ulfa Antibiotics: rashno[Allergies Verified] Objective: * Vitals: W t:190.8lbs, Ht: 68 in, BP:148/76mm Hg, BMI:29.01Index, Wt-k.55 kg. Assessment: * Assessment: 1. F requency of micturition - R35.0 (Primary) 2 . A cute bronchitis - 466.0 3 . R ecurrent UTI - N39.0 Plan: * Treatment: * Labs: * L ab: UA DIP NONAUTO WO MICRO (58415) - IN OFFICE (Collection Date & Time - 11/28/2024) Value Reference Range C OLOR yellow * C LARITY clear * G LUCOSE neg * B ILIRUBIN neg * K ETONE neg * S PECIFIC GRAVITY 1010 * B LOOD ++ * P H 5 * P ROTEIN neg * U ROBILINOGEN neg * N ITRITE neg * L EUKOCYTE ESTERASE large * Procedure Codes: 8 1002 URINALYSIS WO MICRO * Preventive Medicine: Screenings/Counseling: B ND ACTION PLAN Above Normal BMI Follow-up D ietary management education, guidance, and counseling See treatment section of progress note for complete details of management plan. F ALL RISK SCREENING Fall Risk Assessment: N o falls in the past year * * Sign off status: Completed Visit Status: C HK (Check Out) true * Provider: Clary Carrizales ([facility])MD Date: 0 11/28/2024 Generated for Uday zuluaga/Kristian/Lavonneitting on: 0 12/09/2024 11:20 AM EDT
--- OUTSIDE RECORDS SUMMARY | 2024-12-07 08:57 | XMS_ITS ---
Author Organization [facility] in [place] Address [address] [place] [address] Care Team Providers Care Barrel Repairer Name Role Phone Nixon Carrizales Primary Care Provider REASON FOR VISIT + occult stool Encounters Encounter Location Date Provider Diagnosis [facility] [address] [place] [address] 12/07/2024 Nixon Carrizales Plan Of Treatment No Information Progress Notes * Leelee CEDILLO MDOB: 2 (73 yo F)Acc No.[id number]:12/07/2024 Patient: Sandi JAUREGUI Leelee Hampton :1950 A ge:73 Y S ex:Female Address:[address] [place] [address], [address] * true * Date: Generated for Uday zuluaga/Kristian/eTransmitting on: 0 12/09/2024 11:20 AM EDT
--- OUTSIDE RECORDS SUMMARY | 2024-12-09 05:45 | XMS_ITS ---
Author Organization [facility] [place] Address [address] [place] [address] Care Team Providers Care It Service Delivery Manager Name Role Phone Nixon Carrizales Primary Care [...] CLARITY clear GLUCOSE neg BILIRUBIN neg KETONE trace SPECIFIC GRAVITY 1.015 BLOOD trace PH 5 PROTEIN trace UROBILINOGEN neg NITRITE neg LEUKOCYTE ESTERASE trace Reason For Referral Reason + FH also Diagnosis 1 Blood in stool (K92. 1) Referral Organization [facility] Medicine Referring Provider First Name Nixon Referring Provider Last Name All Referring Provider Speciality Family Med rosita Referred Provider Judson Barrios Referred Provider Specialty General Surg sal Referral Priority Routine REASON FOR VISIT Presents to office alone to recheck urine. Finished the ATB, C/o swelling to right foot for the past couple. No pain, Pain in left groin and left thigh for at least 2 weeks, Discuss results of occultblood Medications Medication SIG (Take, Route, Frequency, Duration) Notes Start Date End Date Status Meloxicam 15 MG TAKE 1 TABLET EVERY DAY for 90 Active [place] & Syringes use for monthly b12 injections for 365 days 23G x 1 3ml syringe 08/16/2024 Active Pantoprazole Sodium 40 MG TAKE 1 TABLET EVERY DAY for 90 Active Levothyroxine Sodium 125 MCG TAKE 1 TABL ET EVERY DAY for 90 Active Losartan Potassium 100 MG 1 tablet Orall y Once a day for 30 days Active Baclofen 20 MG 1 tab Orally qhs 11/21/2024 Active Gabapentin 600 MG TAKE 2 TABLETS Orall y bid for 30 days Active Benzonatate 200 MG 1 capsule Orally [address] ee times a day for 7 days 11/28/2024 Active Cyanocobalamin 1000 MCG/ML INJECT 1ML IN TO THE MUSCLE EVERY MONTH for 90 Active ALPRAZolam 0.25 MG 1 tablet Orally Twice a day for 30 days F41,9 10/11/2024 Active Triamcinolone Acetonide 0.1 % 1 application Externally bid 11/28/2024 Active Accu-Chek FastClix Lancets - TEST BLOOD [place] EVERY DAY for Active Alendronate Sodium 70 MG TAKE 1 TABLET E VERY WEEK for Active Vitamin D3 50 MCG (1999 UT) 1 capsule Or ally Once a day for 30 day(s) Active Rollator 1 rollator to safely complete ADLs DX M51.36 for 365 days 10/11/2024 Active Social History Tobacco Use: Social History Observation Description Date Details (start date - stop date) Never Smoker NA - NA Tobacco Use/Smoking Question Answer Notes Patient is a nonsmoker AUDIT-C (Standard) Question Answer Notes Did you have a drink containing alcohol in the p ast year? No Points 0 Interpretation Negative Vital Signs Weight 189.8 lbs 12/09/2024 Height 68 in 12/09/2024 Blood pressure systolic 134 mm Hg 12/10/19 25 Blood pressure diastolic 78 mm Hg 025 Temperature 98.2 degrees Fahrenheit 12/10/19 25 BMI 28.86 kg/m2 12/09/2024 Encounters Encounter Location Date Provider Diagnosis [facility] Medicine [address] [place] [address] 12/09/2024 Nixon Hoy UTI (urinary tract infection) N39.0 and Blood in stool K92.1 Assessments Encounter Date Diagnosis (ICD Code) Assessment Notes Treatment Notes Treatment Clinical Notes Section Notes 12/09/2024 UTI (urinary tract infection) (ICD-10 - N39.0) 12/09/2024 Blood in stool (ICD-10 - K92.1) Plan Of Treatment Pending Test Test Name Order Date Urinalysis Microscopic 12/09/2024 UA DIP NONAUTO WO MICRO (91586) - IN OFF ICE 12/09/2024 CULTURE URINE 12/09/2024 Referrals Referral Date Details 12/09/2024 12/09/2024, + FH als Judson thomas Medications Administered Medication Instructions Date of Administration Dosage Notes Triamcinolone 40 mg/ml 12/09/2024 120 mg Progress Notes * RENALeelee MDOB: 2 (73 yo F)Acc No.[id number]:12/09/2024 UNLOCKED PROGRESS NOTE Progress Note Patient: Leelee LAM Provider: Clary Carrizales ([facility])MD :1950 A ge:73 Y S ex:Female Date:12/09/2024 Address:[address] [place], [place] [phone] Check In:09:36 AM ESTCheck O ut:10:36 AM EST Subjective: * Chief Complaints: * 1 . Presents to office alone to recheck urine. Finished the ATB. 2. C/o swelling to right foot for the past couple. No pain. 3. Pain in left groin and left thigh for at least 2 weeks. 4. Discuss results of occult blood. * HPI: G eneral: R foot swelign some better today uti symtposm gone - u/a pretty clera checking sample at [facility] left groin and pain intop Left thigh. * Medical History: H [place], Thyroid, DJD [...] I nterpretation N egative * Medications: T aking Accu-Chek Fast[employer]ix Lancets(Lancets) - Miscellaneous TEST BLOOD SUGAR EVERY DAY , Taking Alendronate Sodium 70 MG Tablet TAKE 1 TABLET EVERY WEEK , Taking ALPRAZolam 0.25 MG Tablet 1 tablet Orally Twice a day F41,9, Taking Baclofen 20 MG Tablet 1 tab Orally qhs , Taking Benzonatate 200 MG Capsule 1 capsule Orally Three times a day , Taking Cyanocobalamin 1000 MCG/ML Solution INJECT 1ML INTO THE MUSCLE EVERY MONTH , Taking Gabapentin 600 MG Tablet TAKE 2 TABLETS Orally bid , Taking Levothyroxine Sodium 125 MCG Tablet TAKE 1 TABLET EVERY DAY , Taking Losartan Potassium 100 MG Tablet 1 tablet Orally Once a day , Taking Meloxicam 15 MG Tablet TAKE 1 TABLET EVERY DAY , Taking [place] & Syringes use for monthly b12 injections 23G x 1 3ml syringe, Taking Pantoprazole Sodium 40 MG Tablet Delayed Release TAKE 1 TABLET EVERY DAY , Taking Rollator 1 rollator to safely complete ADLs DX M51.36 , Taking Triamcinolone Acetonide 0.1 % Cream 1 application Externally bid , Taking Vitamin D3 50 MCG (1999) Capsule 1 capsule Orally Once a day , Discontinued levoFLOXacin 750 MG Tablet 1 tablet Orally Once a day , Medication List reviewed and reconciled with the patient * Allergies: S ulfa Antibiotics: rash. Objective: * Vitals: W t:189.8lbs, Ht: 68 in, BP:134/78mm Hg, Temp:98.2F, BMI:28.86Index, Wt-k.09 kg. Assessment: * Assessment: 1. U TI (urinary tract infection) - N39.0 (Primary) 2 . B lood in stool - K92.1 Plan: * Treatment: 2. B lood in stool Referral To:Judson Barrios General Surgery Reason:+ FH also * Therapeutic Injections: Triamcinolone 40 mg/ml : 120 mg (Route: Intramuscular) given by Liat Ambrose SA on left gluteus (UTI (urinary tract infection)) * Labs: * L ab: UA DIP NONAUTO WO MICRO (11899) - IN OFFICE (Collection Date & Time - 12/09/2024) Value Reference Range C OLOR yellow * C LARITY clear * G LUCOSE neg * B ILIRUBIN neg * K ETONE trace * S PECIFIC GRAVITY 1.015 * B LOOD trace * P H 5 * P ROTEIN trace * U ROBILINOGEN neg * N ITRITE neg * L EUKOCYTE ESTERASE trace * Procedure Codes: 9 6372 THERAP.INJ. OF MED. INTRAMUSCULAR OR SUBCUTANEOUS, J3301 TMC ACET,PER 10MG., 3078F DIAST BP < 80 MM HG, 3075F SYST BP GE 130 - 139MM HG, [address] URINALYSIS WO MICRO * * Electronic signature of Nixon Carrizales MD, [id number] on 12/09/2024 at 11:21 AM EDT Sign off status: Pending Visit Status: C HK (Check Out) * Provider: Clary Carrizales ([facility])MD Date: 0 12/09/2024 Generated for Printi ng/Faxing/eTransmitting on: 0 12/09/2024 11:21 AM EDT History and Physical Notes * HPI (History of Present Illness) Category Sub-Category Detail Notes Category Not es General R foot swelign some better today uti symtposm gone - u/a pretty clera checking sample at [facility] left groin and pain intop Left thigh Consultation Request Notes Referral Date Referring Provider Referred Provider Not es 12/09/2024 Nixon Carrizales Michael + also
--- OUTSIDE RECORDS SUMMARY | 2024-12-09 11:20 | XMS_ITS | Encounter Summary ---
Author Organization [facility] Address [address] [place] [address] Care Team Providers Care Engine Test Cell Technician Name Role Phone Leander Carrizales MD Primary Care Provider [phone] Source Comments In the event this information is protected by the Federal Confidentiality of Alcohol and Drug AbusePatient Records regulations: The Federal rules restrict any use of the information to criminally investigate or prosecute any alcohol or drug abuse patient.[facility] Encounter Details Date Type Department Care Team (Late st Contact Info) Description 08/06/2023 [place] [address] Provider, Ccf Questionnaire Submission Social History Tobacco Use Types Packs/Day Years Used Date Smoking Tobacco: Never Alcohol Use Standard Drinks/Week Comments Yes 6 (1 standard drink = 0.6 oz pur e alcohol) Area Deprivation Index Answer Date Doron rded National Score (1-100), lower number is lower ri sk 62 06/24/2023 State Score (1-10), lower number is lower risk 4 06/24/2023 Data from: https://www.neighborhoodatlas.medicine.[facility].edu/. Last address used for calculation [address] [facility] 06/24/2023 Comments No Sex and Gender [...] on filedocumented in this encounter Care Teams Engine Test Cell Technician Relationship Specialty Start Date End Date Leander Carrizales MD PCP - General Family Medicine 06/09/11 documented as of this encounter
--- OUTSIDE RECORDS SUMMARY | 2024-12-09 11:20 | XMS_ITS | Encounter Summary ---
Author Organization [facility] Address [address] [place] [address] Care Team Providers Care Licensed Bondsman Name Role Phone Leander Carrizales MD Primary Care Provider [phone] Encounter Details Date Type Department Care Team (Latest Contact Info) Description 12/08/2024 Travel Social History Tobacco Use Types Packs/Day Years Used Date Smoking Tobacco: Never Smokeless Tobacco: Never Alcohol Use Standard Drinks/Week Comments Yes 1 (1 standard drink = 0.6 oz pur e alcohol) Comments No Sex and Gender Information Value Date Recorded Sex Assigned at Not on file Legal Sex Female 6:58 PM EDT Gender Identity Not on file Sexual Orientation Not on file documented as of this encounter Plan of Treatment Upcoming Encounters Date Type Department Care Team (Late st Contact Info) Description 12/20/2024 5:30 PM EDT Ancillary Procedure [facility] [address] [facility] [address] [place] [phone] 07/03/2025 10:30 AM EDT Office Visit [facility] [address] [place] D [address] [phone] Brianna Barrios DO [address] [phone] documented as of this encounter Visit Diagnoses Not on filedocumented in this encounter Care Teams Licensed Bondsman Relationship Specialty Start Date End Date Leander Carrizales MD [address] [place] [id number] PCP - General Family Medicine 06/11/23 documented as of this encounter
--- OUTSIDE RECORDS SUMMARY | 2024-12-09 11:20 | XMS_ITS | Encounter Summary ---
Author Organization [facility] Address [facility] [id number] [address] [place] [address] Care Team Providers Care A Class Lineman Name Role Phone Unavailable Primary Care Provider Unavailabl e Encounter Details Date Type Department Care Team (Late st Contact Info) Description 12/04/2022 Orders Only [facility] [address] [place] [address] External, Scanning Provider Social History Tobacco Use [...]
--- OUTSIDE RECORDS SUMMARY | 2024-12-09 11:20 | XMS_ITS | Clinical Summary ---
Author Organization [facility] Address [address] [place] [address] Phone Care Team Providers Care Flight Attendant Inflight Services Name Role Phone Leander Carrizales MD Primary Care Provider [phone] Social History Tobacco Use Types Packs/Day Years Used Date Smoking Tobacco: Never Assessed Comments Unknown Sex and Gender Information Value Date Recorded Sex Assigned at Not on file Legal Sex Female 3:27 PM EST Gender Identity Not on file Sexual Orientation Not on file Plan of Treatment Not on file Care Teams Flight Attendant Inflight Services Relationship Specialty Start Date End Date Leander Carrizales MD [address] [place] [address] PCP - General 09/22/18
--- OUTSIDE RECORDS SUMMARY | 2024-12-09 11:20 | XMS_ITS | Clinical Summary ---
Author Organization [facility] Address [address] [place] [address] Care Team Providers Care Block Sealer Name Role Phone Leander Carrizales MD Primary Care Provider [phone] Allergies Active Allergy Reactions Criticality Noted Date [...] Insurance Medicare [employer] H[employer] PPO Care Teams Block Sealer Relationship Specialty Start Date End Date Leander Carrizales MD PCP - General Family Medicine 04/09/22
--- OUTSIDE RECORDS SUMMARY | 2024-12-09 11:20 | XMS_ITS | Encounter Summary ---
Author Organization [facility] Address [address] [place] [address] Care Team Providers Care Stamping Operator Name Role Phone Leander Carrizales MD Primary Care Provider [phone] Source Comments In the event this information is protected by the Federal Confidentiality of Alcohol and Drug AbusePatient Records regulations: The Federal rules restrict any use of the information to criminally investigate or prosecute any alcohol or drug abuse patient.[facility] Encounter Details Date Type Department Care Team (Late st Contact Info) Description 07/29/2023 [place] [address] Provider, Ccf Questionnaire Submission Social History Tobacco Use Types Packs/Day Years Used Date Smoking Tobacco: Never Alcohol Use Standard Drinks/Week Comments Yes 6 (1 standard drink = 0.6 oz pur e alcohol) Area Deprivation Index Answer Date Doron rded National Score (1-100), lower number is lower ri sk 62 06/24/2023 State Score (1-10), lower number is lower risk 4 06/24/2023 Data from: https://www.neighborhoodatlas.medicine.[facility].edu/. Last address used for calculation [address] [facility] 06/24/2023 Comments No Sex and Gender [...] on filedocumented in this encounter Care Teams Stamping Operator Relationship Specialty Start Date End Date Leander Carrizales MD PCP - General Family Medicine 06/09/11 documented as of this encounter
--- OUTSIDE RECORDS SUMMARY | 2024-12-09 11:21 | XMS_ITS | Patient Health Record ---
Author Organization [facility] [place] Address [address] [place] [address] Care Team Providers Care Piping Manager Name Role Phone iNxon Carrizales Primary Care Provider Kingston Dash Unavailable [phone] Deepali Jansen Unavailable [phone] Trisha Mcneil Unavailable [phone] Allergies Allergen (clinical drug ingredient) Drug/Non Drug [...] UROBILINOGEN neg NITRITE neg LEUKOCYTE ESTERASE trace COVID-19, Flu A+B IH Reviewed date:10/12/2024 09:00:49 [...] UROBILINOGEN Neg NITRITE Neg LEUKOCYTE ESTERASE ++ PTT Reviewed date:10/12/2024 09:00:49 PM Interpretation: Performing Lab: Notes/Report: [facility] , Partial Thromboplastin Time 25.9 22.3-36.2 sec Performing Lab: see note ML - [facility] LB UA DIP NONAUTO WO MICRO [...] UROBILINOGEN neg NITRITE neg LEUKOCYTE ESTERASE large FOLATE Reviewed date:02/15/2024 10:02:35 PM Interpretation: Performing Lab: Notes/Report: [facility] , Folate 16.30 8.60-58.90 ng/mL Performing Lab: see note ML - [facility] LB CBC AUTO DIFF Reviewed date:10/12/2024 09:00:49 PM Interpretation: Performing Lab: Notes/Report: [facility] , White Blood Count 8.6 4.0-11.0 10 [...] 3/uL Performing Lab: see note ML - [facility] FREE T3 Reviewed date:10/12/2024 09:00:49 PM Interpretation: Performing Lab: Notes/Report: [facility] , Free T3 2.10 2.18-3.98 pg/mL Performing Lab: see note ML - [facility] IRON Reviewed date:10/12/2024 09:00:49 PM Interpretation: Performing Lab: Notes/Report: [facility] , Iron 99.0 50.0-170.0 ug/dL Performing Lab: see note ML - [facility] LB LIPID PROFILE Reviewed date:10/12/2024 09:00:49 PM Interpretation: Performing Lab: Notes/Report: [facility] , Triglycerides 62 <=150 mg/dL Cholesterol 159 <=200 mg/dL HDL Cholesterol 64 40-60 mg/dL > or =60 mg/dl - LOW CARDIOVASCULAR RISK <40 mg/dl - HIGH CARDIOVASCULAR RISK LDL Cholesterol Calculated 83.0 <100 mg/dl OPTIMAL 100-129 mg/dl NEAR OR ABOVE OPTIMAL 130-159 mg/dl BORDERLINE HIGH 160-189 mg/dl HIGH >190 mg/dl VERY HIGH VLDL CHOLESTEROL 12.4 Chol HDL Ratio 2.5 3.3 - 4.4 LOW RISK 4.4 - 7.1 AVERAGE RISK 7.1 - 11.0 MODERATE RISK >11.0 HIGH RISK Performing Lab: see note ML - [facility] LB PROF 14(COMP METB) Reviewed date:10/12/2024 09:00:49 PM Interpretation: Performing Lab: Notes/Report: [facility] , Sodium 141 136-145 mmol/L Potassium 4.0 [...] 0.8 Performing Lab: see note ML - [facility] LB T4 Reviewed date:10/12/2024 09:00:49 PM Interpretation: Performing Lab: Notes/Report: [facility] , T4 Thyroxine 11.10 4.80-13.90 ug/dL Performing Lab: see note ML - [facility] LB TSH Reviewed date:10/12/2024 09:00:49 PM Interpretation: Performing Lab: Notes/Report: [facility] , Thyroid Stimulating Hormone 0.581 0.358-3.740 uIU/mL Performing Lab: see note ML - [facility] LB VITAMIN D 25 [place] Reviewed date:10/12/2024 09:00:49 PM Interpretation: Performing Lab: Notes/Report: [facility] , Vitamin D 35.0 <20 ng/mL Vit D deficient 20-<30 ng/mL Vit D insufficient 30-100 ng/mL Vit D sufficient >100 ng/mL Potential Toxicity Performing Lab: see note ML - [facility] LB Occult Blood* Reviewed date:12/07/2024 12:58:25 PM Interpretation: Performing Lab: Notes/Report: [facility] , Occult Blood Positive Performing Lab: see note ML - [facility] LB GLYCOHEMOGLOBIN A1C Reviewed date:10/12/2024 09:00:49 PM Interpretation: Performing Lab: Notes/Report: [facility] , Glycohemoglobin A1C 5.3 4.5-6.2 % ADA RECOMMENDED LIMIT 4.0 - 6.0 ADA THERAPEUTIC TARGET < 7.0 ACTION SUGGESTED > 7.0 Estimated Average Glucose 105 Performing Lab: see note ML - [facility] LB Urine Culture, Routine Reviewed date:02/16/2024 08:18:49 PM Interpretation: Performing Lab: Notes/Report: [facility] , Urine Culture, Routine See Below For Report Urine Culture, Routine Urine Culture, Routine Mixed urogenital camilo Urine Culture, Routine Urine Culture, Routine Less than 10,000 colonies/mL Urine Culture, Routine Urine Culture, Routine Performed at: [facility] Urine Culture, Routine Urine Culture, Routine [address] [place] [id number] Urine Culture, Routine Urine Culture, Routine Machine Striper: Dwayne Marquez PhD, Phone: [phone] Urine Culture, Routine Performing Lab: see note [facility] LB SEE REPORT - Cable Reeler Id information not found for OBX-specific oil producer legend Vitamin B12 Reviewed date:02/16/2024 08:08:35 PM Interpretation: Performing Lab: Notes/Report: [facility] , Vitamin B12 740 538-0379 pg/mL Performed at: [address] [id number] Machine Striper: Dwayne Marquez PhD, Phone: [phone] Performing Lab: see note [facility] LB UA RANDOM Reviewed date:02/16/2024 08:18:57 PM Interpretation: Performing Lab: Notes/Report: [facility] , Color Urine LT. YELLOW YELLOW Clarity Urine CLEAR CLEAR Specific [place] Urine 1.010 1.005-1.025 pH Urine 6.0 5.0-9.0 Protein Urine NEGATIVE NEG/TRACE mg/dL Glucose Urine UA NEGATIVE NEGATIVE mg/dL Bilirubin Urine NEGATIVE NEGATIVE Ketones Urine NEGATIVE NEGATIVE mg/dL Blood Urine TRACE-I NEGATIVE Nitrite Urine NEGATIVE NEGATIVE Urobilinogen Urine 0.2 0.2-1.0 EU/dL Leukocyte Esterase Urine MODERATE NEGATIVE Performing Lab: see note - [facility] LB Prothrombin Time INR Reviewed date:10/12/2024 09:00:49 PM Interpretation: Performing Lab: Notes/Report: [facility] , Prothrombin Time 10.3 9.0-11.6 sec INR 0.97 DESIRED INR: 2.0-3.0 CONDITIONS NOT LISTED BELOW 2.5-3.5 FOR PROSTHETIC HEART VALVE REPLACEMENT 2.5-3.5 RECURRENT THROMBOSIS Performing Lab: see note ML - [facility] LB Reason For Referral Diagnosis 1 Arthritis of lumbosa cral spine (M47.817) Diagnosis 2 Lumbar disc disease (M51.9) Diagnosis 3 Other intervertebral disc displacement, lumbar region (M51.26) Referral Organization [facility] Referring Provider First Name Nixon Referring Provider Last Name All Referring Provider Speciality [facility] Referred Provider Genet Morris Referred Provider Specialty Neurological Surgery Referral Priority Routine Reason + FH also Diagnosis 1 Blood in stool (K92. 1) Referral Organization [facility] Referring Provider First Name Nixon Referring Provider Last Name All Referring Provider Speciality [facility] Referred Provider Judson Barrios Referred Provider Specialty General Surg sal Referral Priority Routine Medications Medication SIG (Take, Route, Frequency, Duration) Notes Start Date End Date Status Gabapentin 600 MG TAKE 2 TABLETS Orall y bid for 30 days Active Benzonatate 200 MG 1 capsule Orally Thr ee times a day for 7 days 11/28/2024 Active Vitamin D3 50 MCG (1999 UT) 1 capsule Or ally Once a day for 30 day(s) Active Cyanocobalamin 1000 MCG/ML INJECT 1ML IN TO THE MUSCLE EVERY MONTH for 90 Active Levothyroxine Sodium 125 MCG TAKE 1 TABL ET EVERY DAY for 90 Active Losartan Potassium 100 MG 1 tablet Orall y Once a day for 30 days Active Meloxicam 15 MG TAKE 1 TABLET EVERY DAY for 90 Active ALPRAZolam 0.25 MG 1 tablet Orally Twice a day for 30 days F41,9 10/11/2024 Active Rollator 1 rollator to safely complete ADLs DX M51.36 for 365 days 10/11/2024 Active Baclofen 20 MG 1 tab Orally qhs 11/21/2024 Active Triamcinolone Acetonide 0.1 % 1 application Externally bid 11/28/2024 Active Accu-Chek FastClix Lancets - TEST BLOOD SUGAR EVERY DAY for 90 Active [place] [employer] Syringes use for monthly b12 injections for 365 days 23G x 1 3ml syringe 08/16/2024 Active Alendronate Sodium 70 MG TAKE 1 TABLET E VERY WEEK for 84 Active Pantoprazole Sodium 40 MG TAKE 1 TABLET EVERY DAY for 90 Active Immunizations Vaccine Route Administration Date Status Comme nts Flu, Fluad (34726) 65 yrs and older, single-dose syringe (4633-5866) IM Intramuscular 03/25/2024 Administered Flu, Fluad (84863) 65 yrs+, single-dose syringe (8492-7324) IM Intramuscular 01/20/2023 Administered Tdap (Adacel) IM [...] Problem Status W/U Status Risk Notes Problem 29937680 Acute bronchitis (466.0) Active confirmed Problem Syncope and collapse (968299698) Syncope and collapse (R55) Active confirmed Problem Peripheral vertigo (82203107) Other peripheral vertigo, unspecified ear (H81.399) Active confirmed Problem 819297831 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) Active confirmed Problem 62928059 Other disorder o f circulatory system (I99.8) Active confirmed Problem Unstageable pressure injury of right ankle (disorder) (94971803538771978) Pressure ulcer of right ankle, unspecified stage (L89.519) Active confirmed Problem 982073904 Other intervertebral disc displacement, lumbar region (M51.26) Active confirmed Problem Spasm of back muscles (746185710) Muscle spasm of back (M62.830) Active confirmed Problem Skin symptom change (681045613) Unspecified skin changes (R23.9) Active confirmed Problem 645101959 Frequency of micturition (R35.0) Active confirmed Problem Exposure to communicable disease (080485999) Contact with and (suspected) exposure to other viral communicable diseases (Z20.828) Active confirmed Problem Recurrent urinary tract infection (408339442) Recurrent UTI (N39.0) Active confirmed Problem Hypertension (49559028) Hypertension (I10) Active confirmed Problem Hypothyroidism (14376579) Hypothyroidism (E03.9) Active confirmed Problem Edema (02714615) Edema (R60.9) Active confirmed Problem Varicose vein (31437181) Varicose vein (I86.8) Active confirmed Problem Dyspnea (585632605) Dyspnea (R06.00) Active con firmed Problem Essential hypertension (89973407) Benign essential HTN (I10) Active confirmed Problem Insomnia (749500159) Insomnia (G47.00) Active confirmed Problem Acid reflux (352321002) Acid reflux (K21.9) Active confirmed Problem Urinary incontinence (497255764) Urinary incontinence (R32) Active confirmed Problem Degenerative joint disease (643014504) DJD (degenerative joint disease) (M19.90) Active confirmed Problem Lumbar post-laminectomy syndrome (870209317) Lumbar post-laminectomy syndrome (M96.1) Active confirmed Problem Sinusitis (86340319) Sinusitis (J32.9) Active confirmed Problem Disorder of lumbar disc (067361520) Lumbar disc disease (M51.9) Active confirmed Problem Pharyngitis (097890578) Pharyngitis (J02.9) Active confirmed Problem Acute bronchitis (28615607) Acute bronchitis (J20.9) Active confirmed Problem Sciatica (46569081) Sciatica (M54.30) Active co nfirmed Problem Cellulitis (710958648) Cellulitis (L03.90) Active confirmed Problem Alopecia (35953222) Hair loss (L65.9) Active co nfirmed Problem Seasonal allergic rhinitis (849808186) Seasonal allergic rhinitis (J30.2) Active confirmed Problem Pain of left hand (919894774939972) Left hand pain (M79.642) Active confirmed Problem Vitamin B12 deficiency (non anemic) (67503797) B12 deficiency (E53.8) Active confirmed Problem Foot ulcer due to type 2 diabetes mellitus (8311127911568) Type 2 diabetes mellitus with foot ulcer (E11.621) Active confirmed Problem Lumbosacral radiculopathy (6136569) Lumbosacral neuritis (M54.17) Active confirmed Problem Osteoarthritis (998985772) Osteoarthritis, unspecified osteoarthritis type, unspecified site (M19.90) Active confirmed Problem Pain in limb (89103704) Pain in left lower leg (M79.662) Active confirmed Problem Acute sinusitis (45322712) Acute sinus infection (J01.90) Active confirmed Problem Overweight (954841781) Over weight (E66.3) Active confirmed Problem Dyshidrotic eczema (877493507) Dyshidrotic eczema (L30.1) Active confirmed Problem Ankylosing spondylitis (2608413) Ankylosing spondylitis (M45.9) Active confirmed Problem Nevus (8487247338) Nevus (D22.9) Active confirm ed Problem Ankle edema (03155184) Ankle edema (R60.0) Active confirmed Problem Acute gastroenteritis (74315128) Acute gastroenteritis (K52.9) Active confirmed Problem Peripheral vascular disease (946313146) Other peripheral vascular disease (I73.89) Active confirmed Problem Lumbosacral spondylosis without myelopathy (72583611) Other osteoarthritis of spine, lumbar region (M47.896) Active confirmed Problem Delayed healing of surgical wound (finding) (635238307) Delayed surgical wound healing (T81.89XA) Active confirmed Problem Easy bruising (305937576) Easy bruising (R23.8) Active confirmed Problem Chronic venous insufficiency (09411176) Chronic venous insufficiency (I87.2) Active confirmed Problem Allergic arthritis (43739278) Allergic arthritis (M13.80) Active confirmed Problem Peripheral vascular disease (904518291) Other peripheral vascular diseases (I73.89) Active confirmed Problem Shoulder impingement syndrome (846511091) Shoulder impingement syndrome (M75.40) Active confirmed Problem At risk for falls (842451567) At risk for falls (Z91.81) Active confirmed Problem Vitamin B deficiency (26707749) Deficiency of vitamin B12 (E53.8) Active confirmed Problem Polyneuropathy due to type 2 diabetes mellitus (444569525) Diabetes mellitus with diabetic polyneuropathy (E11.42) Active confirmed Problem Ankle ulcer (689012540) Non-healing ulcer of ankle, right, with fat layer exposed (L97.312) Active confirmed Problem Avascular necrosis of head of humerus (491058088) Avascular necrosis of head of humerus (M87.029) Active confirmed Problem Pain co-occurrent and due to varicose veins of bilateral legs (44475529531822812) Varicose veins of leg with pain, bilateral (I83.813) Active confirmed Problem Decubitus ulcer of left foot, stage 2 (L89.892) Active confirmed Problem Arthritis of lumbosacral spine (405832589) Arthritis of lumbosacral spine (M47.817) Active confirmed Problem Peripheral venous insufficiency (90614450) Acute stasis dermatitis (I87.2) Active confirmed Problem Mixed anxiety and depressive disorder (263453850) Anxiety and depression (F41.8) Active confirmed Problem Decubitus ulcer of right ankle, stage 2 (L89.512) Active confirmed Problem Allergic arthritis of the pelvic region and thigh (949646266) Allergic arthritis of left hip (M13.852) Active confirmed Problem Decubitus ulcer of calf, stage 2, unspecified laterality (L89.892) Active confirmed Problem Bruising (216655683) Bruising (T14.8XXA) Active confirmed Problem Decubitus ulcer of right foot, stage 2 (L89.892) Active confirmed Problem Pressure ulcer o f toe of left foot, stage 2 (L89.892) Active confirmed Problem Pressure injury of right ankle, stage 1 (L89.511) Active confirmed Problem Ankle ulcer (028085218) Chronic ulcer of right ankle with fat layer exposed (L97.312) Active confirmed Problem Pressure injury of right ankle, stage 2 (L89.512) Active confirmed Problem Chronic ulcer of toe of right foot with fat layer exposed (L97.512) Active confirmed Problem Lumbar spinal stenosis (05095691) Lumbar spinal stenosis (M48.061) Active confirmed Problem Osteoarthritis of knee (825482313) Osteoarthritis of right knee (M17.11) Active confirmed Problem Acute embolism a nd thrombosis of right peroneal vein (I82.451) Active confirmed Problem Clostridial enteric disease (724039477) Clostridioides difficile diarrhea (A04.72) Active confirmed Problem COVID-19 (280911945) COVID-19 (U07.1) Active confirmed Problem Polyneuropathy due to type 2 diabetes mellitus (576939204) Controlled type 2 diabetes mellitus with diabetic polyneuropathy, unspecified whether residential insulin use (E11.42) Active confirmed Problem Herniation of rectum into vagina (485156412) Rectocele without uterine prolapse (N81.6) Active confirmed Problem Chronic ulcer of right foot (disorder) (39377624242501801) Chronic ulcer of right foot with fat layer exposed (L97.512) Active confirmed Problem Cough (finding) (76984836) Other cough (R05.8) Active confirmed Problem Thrombophlebitis of superficial veins of lower extremity (59557907) Thrombophlebitis of superficial vein of lower leg (I80.00) Active confirmed Vital Signs Heart Rate 77 /min 09/06/2024 Temperature 98.2 degrees Fahrenheit 12/09/2024 Oximetry 98 % 09/06/2024 Blood pressure diastolic 78 mm Hg 12/09/2024 Height 68 in 12/09/2024 Blood pressure systolic 134 mm Hg 12/09/2024 Weight 189.8 lbs 12/09/2024 BMI 28.86 kg/m2 12/09/2024 Encounters Encounter Location Date Provider Diagnosis [facility] [address] [place] [address] 12/07/2024 Nixon Carrizales [facility] [address] [place] [address] 08/12/2024 Nixon Carrizales [facility] [address] [facility] [place] [address] 08/16/2024 Nixon Carrizales [facility] [address] [place] [address] 10/11/2024 Nixon Tayy [facility] [address] [facility] [place] [address] 10/11/2024 Nixon Carrizales Screening for breast cancer Z12.39 [facility] [address] [facility] [place] [address] 10/12/2024 Nixon Carrizales [facility] [address] [place] [address] 11/21/2024 Nixon Tayy [facility] [address] [facility] [place] [address] 02/09/2024 Nixon Carrizales Urinary incontinence R32 [facility] [address] [facility] [place] [address] 02/16/2024 Trisha Mcneil [facility] [address] [facility] [place] [address] 02/29/2024 Nixon Hoy B12 deficiency E53.8 [facility] [address] [facility] [place] [address] 06/23/2024 Nixon Hoy B12 deficiency E53.[address] [address] 06/28/2024 Nixon Hoy Influenza A J10.1 ; Bronchitis J40 and Frequency of micturition R35.[address] [address] 07/29/2024 Nixon Hoy Arthritis of lumbosacral spine M47.817 and Other intervertebral disc displacement, lumbar region M51.[address] [address] 12/22/2023 Nixon Hoy [address] [address] 01/19/2024 Nixon Hoy B12 deficiency E53.8 ; Hypertension I10 ; Hair loss L65.9 and Insomnia G47.00 [facility] ([facility] [address] [place] [address] [place] [address] 03/03/2024 Deepali Jansen Deficiency of vitami n B12 E53.8 ; Pain in right toe(s) M79.674 ; Pain in left toe(s) M79.675 and At risk for falls Z91.[address] [address] 11/16/2024 Nixon Hoy UTI (urinary tract infection) N39.0 and Muscle spasm of back M62.[address] [address] 12/09/2024 Nixon Hoy UTI (urinary tract infection) N39.0 and Blood in stool K92.[address] [address] 02/19/2024 Trisha Mcneil Deficiency of vitami n B12 E53.8 ; Bronchitis J40 and Cough R05.[address] [address] 08/12/2024 Nixon Hoy Frequent urination R35.0 ; Lumbar disc disease M51.9 and Lumbar post-laminectomy syndrome M96.1 [address] [place] [address] 09/06/2024 Trisha Tarun Sinusitis J32.[address] [address] 10/11/2024 Nixon Hoy Easy bruising R23.8 ; Muscle spasm of back M62.830 ; Hypertension I10 ; DJD (degenerative joint disease) M19.90 and Controlled type 2 diabetes mellitus with diabetic polyneuropathy, unspecified whether residential insulin use E11.[address] [address] 05/16/2024 Trisha Mcneil Influenza A J10.1 an d Left foot pain M79.[address] [address] 07/29/2024 Nixon Hoy Type 2 diabetes mellitus with foot ulcer E11.621 ; Muscle spasm of back M62.830 and Lumbar post-laminectomy syndrome M96.[address] [address] 11/28/2024 Nixon Hoy Frequency of micturition R35.0 ; Acute bronchitis 466.0 and Recurrent UTI N39.[address] [address] 12/22/2023 Nixon Hoy Deficiency of vitami n B12 E53.[address] [address] 03/25/2024 Nixon Hoy Deficiency of vitami n B12 E53.8 and Encounter for immunization Z23 [address] [address] 04/22/2024 Nixon Hoy Deficiency of vitami n B12 E53.[address] [address] 05/25/2024 Nixon Hoy Deficiency of vitami n B12 E53.[address] [address] 06/20/2024 Nixon Hoy Deficiency of vitami n B12 E53.8 [facility] [address] [place] [address] 07/20/2024 Nixon Carrizales Deficiency of vitami n B12 E53.8 Assessments [...] Muscle spasm of back (ICD-10 - M62.830) 12/09/2024 UTI (urinary tract infection) (ICD-10 - N39.0) 12/09/2024 Blood in stool (ICD-10 - K92.1) 11/16/2024 UTI (urinary tract infection) (ICD-10 - [...] diabetes mellitus with diabetic polyneuropathy, unspecified whether gauge checker insulin use (ICD-10 - E11.42) 07/29/2024 Other [...] 25 LEVEL (TOTAL) 10/11/2024 Urinalysis Microscopic 05/22/2023 Urinalysis Microscopic 12/09/2024 UA DIP NONAUTO WO MICRO (87133) - IN OFF ICE 12/09/2024 UA DIP NONAUTO WO MICRO (07275) - IN OFF ICE 11/16/2024 UA DIP NONAUTO WO MICRO (92012) - IN OFF ICE 11/28/2024 PT - INR 10/11/2024 STOOL OCCULT BLOOD 10/11/2024 CULTURE URINE 05/22/2023 CULTURE URINE 12/09/2024 CULTURE URINE 02/09/2024 OCC BLD IMMUNO SCREEN [...] End Date [employer] [address] [place] [address] [phone] Leelee Cedillo Self - patient is the [...] mg Triamcinolone 40 mg/ml 11/16/2024 120 mg Triamcinolone 40 mg/ml 12/09/2024 120 mg Medical (General) History Medical History [...] Rt 2011 Rotator Cuff Repair, rt 2010 Cholecystectomy 2007 Knee Arthroscopy, Rt 2011 Excision of Ganglion Cyst 2012 D&C 02/09/14 Carpal Tunnel Release 07/03/10 Skin Substitute with excisional biopsy- right ankle/foot 08/10 cataract surgery 05/2021 spine surgery 12/2018 Hospitalization History Reason Date(Month/Year) Seizure activity- 08/10 Hip dislocation 03/11 Multiple times for surgeries
--- OUTSIDE RECORDS SUMMARY | 2024-12-09 11:21 | XMS_ITS | Encounter Summary ---
Author Organization [facility] Address [id number] [address] [place] [address] Care Team Providers Care Gut Sorter Name Role Phone Unavailable Primary Care Provider Unavailabl e Encounter Details Date Type Department Care Team (Late st Contact Info) Description 12/03/2022 Orders Only [facility] [address] [place] [address] External, Scanning Provider Social History Tobacco Use [...]
--- OUTSIDE RECORDS SUMMARY | 2024-12-09 11:21 | XMS_ITS | Clinical Summary ---
Author Organization [facility] Address [address] [place], [place] [id number] Care Team Providers Care Engineering Intern Name Role Phone Leander Carrizales MD Primary Care Provider [phone] Allergies Active Allergy Reactions Criticality Noted Date [...] is lower risk 4 06/24/2023 Data from: [email or web address].medicine.[email or web address].[email or web address] Last address used for calculation 60 [...] Core Ab, Total Negative NEGAT [facility] Hep C Antibody IA Negative NEGAT [facility] HBsAg Negative NEGAT [facility] Hep B Surface Ab, Qual Negative NEGAT [facility] Comment: A negative Hepatitis [...] Daniele Renae MD LABORATORY Final Resul t [facility] [address] [place] [address] * COMP METABOLIC PANEL (06/18/2011 1:49 PM EST) Protein, Total 7.4 6.0 - 8.4 g/dL [facility] Albumin 4.1 3.5 - 5.0 g/dL [facility] Calcium 9.4 8.5 - 10.5 mg/dL [facility] Bilirubin, Total 0.2 0.0 - 1.5 mg/dL [facility] Alkaline Phosphatase 75 40 - 150 U/L [facility] AST 23 7 - 40 U/L [facility] Glucose 90 65 - 100 mg/dL [facility] BUN 12 8 - 25 mg/dL [facility] Creatinine 0.80 0.70 - 1.40 mg/dL [facility] Sodium 140 132 - 148 mmol/L [facility] Potassium 3.9 3.5 - 5.0 mmol/L [facility] Chloride 106 98 - 110 mmol/L [facility] CO2 25 23 - 32 mmol/L [facility] Anion Gap 9 0 - 15 mmol/L [facility] ALT 16 0 - 45 U/L [facility] eGFR- >60 [facility] eGFR-All Other Races >60 . [facility] Comment: eGFR (Estimated GFR) Units [...] EST us [facility] Final Result [facility] [address] [place] [address] from Last 3 Months or Most Recently Relevant to Health Maintenance Insurance [facility] MEDICARE Care Teams Engineering Intern Relationship Specialty Start Date End Date Leander Carrizales MD PCP - General Family Medicine 06/09/11
--- OUTSIDE RECORDS SUMMARY | 2024-12-09 11:21 | XMS_ITS | Clinical Summary ---
Author Organization [facility] Address [address] [place] [address] Care Team Providers Care Analytic Programmer Name Role Phone Leander Carrizales MD Primary Care Provider [phone] Allergies Active Allergy Reactions Criticality Noted Date [...] Guide test strip 3 Active HYDROcodone-jonnie taminophen ([place]) 5-325 MG tablet TAKE 1 TABLET BY [...] SYR 22GX1 22G X 1 3 ML misc USE TO INJECT VITAMIN B-12 MONTHLY 3 Active Encounters Date Type Department Care Team Description 12/08/2024 Travel from Last 3 Months Family History Medical History Relation Name Comments [...] Procedure [facility] [address] [place] [address] 07/03/2025 10:30 AM EDT Office Visit [facility] [address] [place] [facility] [address] [place] [id number] Brianna Barrios, [address] [facility] [address] [place] [id number] Health Maintenance Due Date Last Done Comments [...] IS VERY IMPORTANT TO YOUR HEALTH. [employer] GUIDELINES RECOMMEND THAT WOMEN 40 [...] identified, given differences in technique and positioning. Scott Vasquez MD IMG BI PROCEDURES Final Result from Last 3 Months or Most Recently Relevant to Health Maintenance Insurance [employer] Care Teams Analytic Programmer Relationship Specialty Start Date End Date Leander Carrizales MD [address] [place] [id number] PCP - General Family Medicine 06/11/23
--- OUTSIDE RECORDS SUMMARY | 2024-12-09 11:21 | XMS_ITS | Patient Health Record ---
Author Organization [facility] Address [address] [place] [address] Care Team Providers Care Granite Installer Name Role Phone Dr. Uziel Kenny Primary Care Provider Reason For Referral No Information Plan Of Treatment No Information Insurance Providers Payer Name Payer Address Payer Phone Subscriber Number Group Number Insured Name Patient Relationship to Insured Coverage Start Date Coverage End Date [employer] MED[employer]ARE PLAN [address] [address] [place] [address] [phone] [id number] KENAN CHASE Self - patient is the insured 2 DENTAL [employer] MEDICARE [address] [address] [place] [address] [id number] KENAN CHASE Self - patient is the insured 2
--- OUTSIDE RECORDS SUMMARY | 2024-12-09 11:21 | XMS_ITS | Clinical Summary ---
Author Organization [employer] Address [id number] [address] [place] [address] Care Team Providers Care News Reel Cameraman Name Role Phone Unavailable Primary Care Provider [...] exists Medical Devices Not on file Insurance [facility] MEDICARE
--- OUTSIDE RECORDS SUMMARY | 2024-12-09 11:24 | XMS_ITS | CCD ---
Author Organization [facility] Care Team Providers Care Cupola Tapper Helper Name Role Phone Praveen Lopez Unavailable Unavailable PHYSICIAN, DEFAULT Unavailable Unavailable PHYSICIAN, DEFAULT Unavailable Unavailable SAAR VICK Unavailable Unavailable Sara [phone] UNKNOWN Admitting Unavailable Sara [phone] UNKNOWN Attending Unavailable Sara [phone] UNKNOWN Referring Unavailable Sara Vick Primary Care [...] Unavailable HIGHLANDER, PETER D Consulting Unavailable PERFECTO BRUCH Referring Unavailable PERFECTO BURCH Attending Unavailable SARA VICK Primary Care Unavailable PERFECTO BURCH Attending Unavailable SARA VICK Primary Care Unavailable Sorin DICKERSON Referring Unavailable PERFECTO BURCH Attending Unavailable SARA VICK Primary Care Unavailable PERFECTO BURCH Referring Unavailable Sara Vick MD Primary Care Provider [phone] Julio Ferrara Consulting Unavailable Francisco Alcazar S Admitting Unavailable Francisco Alcazar S Attending Unavailable Campbell, Julio Consulting Unavailable Campbell, Julio Consulting Unavailable Campbell, Julio Consulting Unavailable Campbell, Julio Consulting Unavailable Campbell, Julio Consulting Unavailable Campbell, Julio Consulting Unavailable Campbell, Julio Consulting Unavailable Campbell, Julio Consulting Unavailable Wm Nagy Attending Unavailable [...] [phone] HAILEY Jansen Attending Provider [phone] MD Kiran Kessler Attending Provider ANNIE JIMENEZ [...] Sulfonamides (Antibiotic) Drug allergy (disorder) 08-02-19 10 [facility] Repository (4 sources) Sulfamethoxazole; Translations: [sulfamethoxazole ] Drug Allergy Cutaneous eruption (morphologic abnormality) [facility] Repository (2 sources) Sulfur; Translations: [Sulfur] Drug Allergy [facility] Repository (11 sources) Sulfonamides (Antibiotic); Translations: [Sulfa (Sulfonamide Antibiotics)] Allergy to substance 07-17-19 07 Rash [facility] (17 sources) Sulfacetamide Drug Allergy 09-19-19 23 [employer] Other (2 sources) metroNIDAZOLE Drug Allergy 09-19-19 23 Dyspepsia [facility] (1 source) Sulfacetamide Drug Allergy 07-01-19 24 [facility] Repository Medications Current Medications Medication [...] for 30 days Dec, Active Start: 03-08-2022 [place] 325 mg-5 mg oral tablet 1 tab(s), Oral, q4hr for pain, 12 tab(s), Refill(s) 0, [facility]/pharmacy #[id number], 172, cm, 03/08/22 13:49:00 EST, [...] Daily, # 30 tab(s), Refills(s) 0, Pharmacy: [facility]/pharmacy #[id number], 172.7, cm, 07/26/22 11:43:00 EDT, [...] 06/19/2017 9:00:00 take [address] [facility] every twenty-four hours Vitamin D3 50 MCG [...] 06-19-2017 take 1 tablet by [facility] once daily Pantoprazole Sodium Tablet Delayed Release [...] Start: 07-26-2022 take [address] [facility] every eight hours as needed for muscle spasms tiZANidine 4 mg Tab 8 mg = 2 tab(s), Oral, q8hr, PRN Spasm, Refills(s) 0 Start Date: 07/26/22 Status: Ordered Start: 06-19-2017 take [address] [facility] twice daily Zanaflex Tablet 4 MG 2 tablet Tablet Oral GIVE 2 TABS (8MG) BY MOUTH TWICE DAILY FOR MUSCLOSKELETAL 06/19/2017 9:00:[address] [facility] once daily at bedtime tiZANidine HCl 4 mg capsule Take 4 mg by mouth daily at bedtime. 0 Active take [address] [facility] every eight hours tiZANidine HCl [...] 07-01-2013 Chronic Other aftercare (1 source) Other usp (current) drug therapy; Translations: [OTH DUST SAMPLER CURRENT DRUG THERAPY] Onset: 3 Episodic Other [...] sources) Peripheral vascular disease; Translations: [Atherosclerosis of [place] arteries of extremities with intermittent claudication, bilateral [...] ton 08-08-2023 [facility] MRI THORACIC SPINE WO IVCONo n 08-08-2023 [...] and assume there are 5 lumbar-type vertebrae. Dry Man[facility] Transcribe Date/Time: Aug 08 2023 9:09P Dictated by : HARRY JONES MD This examination was interpreted and the report reviewed and electronically signed by: HARRY JONES MD on Aug 08 2023 9:14PM EST [id number] Normal [facility] BI MAMMOGRAM SCREENING TOMOS YNTHESIS BILATERALon [...] IS VERY IMPORTANT TO YOUR HEALTH. THE [employer] GUIDELINES RECOMMEND THAT WOMEN 40 [...] OF EXAM: Jul 13 2023 11:11AM [facility] 0508 - CT LUMBAR [...] are 5 lumbar-type vertebrae. Anatomic variant: None. Heater Worker (topogram) images: Left femoroacetabular arthroplasty. Alignment: Mild [...] any questions regarding this interpretation, please call [phone]. If you are unable to reach us at the number above, please feel free to contact [facility] eRadiology at [phone]. [id number] Normal [facility] CT Lumbar spine WO contrasto n 07-13-2023 [facility] CNOVon 06-24-2023 CNOV Office Visit (SPNSMN ) LEELEE CEDILLO ([id number]) 1950 F Date Time Provider Department 06/24/23 [...] Ghanshyam Lombardi MD Referring Provider: SARA VICK [[id number]] Allergies As of Date: 06/24/2023 Noted Allergy Reaction SULFA (SULFONAMIDE ANTIBIOTICS) 07/16/2006 Date Reviewed: 06/24/2023 Reviewed by: Kaur Manzano MA - Fully Assessed Reason for Visit: New Patient [172] Primary Visit Diagnosis:Adjacent segment disease of lumbar spine with history of fusion procedure [M51.36, Z98.1] Other Visit Diagnosis:Chronic bilateral low back pain with bilateral sciatica [M54.42, M54.41, G89.29] Order(s):MRI THORACIC SPINE WO IVCON [[id number]] Order #: [id number] FUTURE CT LUMBAR SPINE WO IVCON [[id number]] Order #: [id number] FUTURE Prescriptions as of 06/24/2023 - pantoprazole [...] Status:Closed by GHANSHYAM LOMBARDI on 06/24/23 Normal [facility] XR LUMBAR 4V AP/LAT/ FLEX/EX Ton [...] Number of different views (projections): 2 (accession [id number]), 4 (accession [id number]) COMPARISON: Radiographs dated 09/23/2021 RESULT: Counting reference: [...] changes with no evidence of hardware complication. Dry Man: PSCB Transcribe Date/Time: Jun 24 2023 12:52P Dictated by : LATASHA QUEZADA MD This examination was interpreted and the report reviewed and electronically signed by: LATASHA QUEZADA MD on Jun 24 2023 12:55PM EST [id number] Normal [facility] XR Lumbar spine Views W flex ion and W extensionon 06-24-2023 [facility] XR SCOLIOSIS 2V PA STAND/LAT on 06-24-2023 [...] Number of different views (projections): 2 (accession [id number]), 4 (accession [id number]) COMPARISON: Radiographs dated 09/23/2021 RESULT: Counting reference: [...] changes with no evidence of hardware complication. Dry Man: PSCB Transcribe Date/Time: Jun 24 2023 12:52P Dictated by : LATASHA QUEZADA MD This examination was interpreted and the report reviewed and electronically signed by: LATASHA QUEZADA MD on Jun 24 2023 12:55PM EST [id number] Normal [facility] XR Thoracic and lumbar spine Views for scoliosis W standingon 06-24-2023 [facility] US arterial pvr rest Vito US arterial pvr rest [facility] [place] [address] Ultrasound Report Signed Patient: Leelee Cedillo MR#: [id number] 56 : 1950 Acct:[id number] Age/Sex: 72 / F ADM Date: 05/22/23 [...] Drake Bates M.D.05/25/2023 10:58 AM Dictation Location: [place] [address] Tech: Katy Leone Transcribed By: LISBETH 05/25/23 1058 Dictated By: Drake Bates MD 05/25/23 1057 Signed By: 05/25/23 1058 Normal [facility] US venous duplex LE BIon US venous duplex LE BI [facility] [place] [address] Ultrasound Report Signed Patient: Leelee Cedillo MR#: [id number] 56 : 1950 Acct:[id number] Age/Sex: 72 / F ADM Date: 05/22/23 [...] vein has previously been stripped. No significant movie writer incompetence is noted. The lesser saphenous vein [...] Drake Bates M.D.05/25/2023 10:57 AM Dictation Location: [place] [address] Tech: Katy Leone Transcribed By: LISBETH 05/25/23 1057 Dictated By: Drake Bates MD 05/25/23 1055 Signed By: 05/25/23 1057 Normal [facility] ED Note-Physicianon 11-26-19 ED Note-Physician Normal [facility] Comment on above: Result Comment: Elec tronically Signed By: Sathya De La O PA-C\.br\Date and Time Signed: 11/22/22 14:13 EDT\.br\Electronically Co-Signed By: Flavio Castillo MD\.br\Date and Time Co-Signed: 11/25/22 13:23 EDT Consent for Treatmenton Consent for Treatment [id number]#1.0 0CD:127 Normal [facility] Discharge Instructionson Discharge Instructions [id number]#1. 00CD:127 Normal [facility] ED Clinical Summaryon 2022 ED Clinical Summary Normal Stefania wu [facility] ED Patient Education Noteon 11-22-2022 ED Patient Education Note Normal [facility] ED Patient Summaryon 023 ED Patient Summary Normal [facility] Neurology Forms- Texton Neurology Forms- Text [id number]#1. 00CD:127 Normal [facility] EEGon 09-11-2022 EEG [facility] Comment on above: Result Comment: Elec tronically Signed By: Jonathan Powell DO\.br\Date and Time Signed: 09/11/22 10:41 EDT Consent for Treatmenton 08-19 Consent for Treatment [id number]#1.0 0CD:127 Normal [facility] Physician Orderon 09-03-2022 Physician Order [id number]#1.0 0CD:127 Normal [facility] VC CONSULT FOLLOWUPon 2022 VC CONSULT FOLLOWUP Patient: ITZEL CEDILLO Exam Date: 08/08/2022 : 1950 Gender:F Ordering : DR ALFRED UMAÑA M.D. Admission #: [id number] Family : Order #: [id number] CLICK HERE TO VIEW EXAM RADIOLOGY REPORT [...] on 08/08/2022 at 10:59 Normal [facility] EXT VENOUS LT LIMITEDon 0 08-08-2022 VC EXT VENOUS LT LIMITED Patient: LEELEE CEDILLO Exam Date: 08/08/2022 : 1950 Gender:F Ordering : DR ALFRED UMAÑA M.D. Admission #: [id number] Family : Order #: [id number] CLICK HERE TO VIEW EXAM RADIOLOGY REPORT [...] Umaña MD on 08/08/2022 at 09:43 Normal [facility] Coding Summary.on 07-29-2022 Coding Summary. Normal [facility] Insurance Correspondenceon 0 07-29-2022 Insurance Correspondence [id number]#1.0 0CD:127 Normal [facility] Insurance Correspondence Off iceon 07-29-2022 Insurance Correspondence Office [id number]#1. 00CD:127 Normal [facility] Discharge Instructionson Discharge Instructions [id number]#1. 00CD:127 Normal [facility] NdcB9oza 07-28-2022 HbA1c (Bld) [Mass fraction] 5.3 % Normal <=5.9 [facility] Comment on above: Performed By: #### 2 333601, 6092988, 1072215, 9672602, 657081598, 36426435 ####[facility] [address] [place] [address] Insurance Correspondenceon 0 07-28-2022 Insurance Correspondence [id number]#1. 00CD:127 Normal [facility] C. diff by PCRon 07-27-2022 Clostridium difficile by PCR Negative Normal Negative [facility] Comment on above: Order Comment: Order added by Discern Expert. Result Comment: This test result should be correlated with clinical presentations and medical history by a healthcare provider to determine its clinical significance. Performed By: #### 3 [id number], [id number], [id number] ####[facility] [address] [place] [address] CDiff PCRon 07-27-2022 Cdiff Specimen Acceptable Acceptable Normal [facility] Comment on above: Performed By: #### 3 [id number], [id number], [id number] ####[facility] [address] [place] [address] Order Cancelled No, PCR to follow Normal [facility] Comment on above: Performed By: #### 3 [id number], [id number], [id number] ####[facility] [address] [place] [id number] CHEMISTRYOrdered By: SYSTEM SYSTEM on 07-27-2022 Anion [...] Remisol Consultation Noteon 07-28-19 Consultation Note Normal [facility] Comment on above: Result Comment: Elec tronically Signed By: Rachel MEEHAN, Smita Reardon\.br\Date and Time Signed: 07/27/22 07:14 EDT\.br\Electronically Co-Signed By: Jonathan Powell DO\.br\Date and Time Co-Signed: 07/27/22 10:23 EDT EMS Documentationon 07-28-19 EMS Documentation Normal [facility] EMS Documentation Normal [facility] EMS Documentation Normal [facility] Enteric Panel by PCRon 07-27 C. coli+jejuni+upsaliens is DNA VIVIANA+non-probe Ql (Stl) Not detected Normal [facility] Comment on above: Result Comment: Test ing was performed utilizing reverse conveyor system operator (RT), polymerase chain reaction (PCR), and [...] nulcleic acid test. Performed By: #### 3 [id number], [id number], [id number] ####[place] [address] [place] [address] E. coli stx1+stx2 genes VIVIANA+non-probe Ql (Stl) Negative Normal [facility] Comment on above: Performed By: #### 3 [id number], [id number], [id number] ####[place] [address] [place] [address] Enteric Panel Intrl QC Pass Normal [facility] Comment on above: Result Comment: Test ing was performed utilizing reverse conveyor system operator (RT), polymerase chain reaction (PCR), and [...] 1 and 2. Performed By: #### 3 [id number], [id number], [id number] ####[place] [address] Norovirus genogroup I+II RNA VIVIANA+non-probe Ql (Stl) Not detected Normal [facility] Comment on above: Performed By: #### 3 [id number], [id number], [id number] ####[place] [address] Rotavirus A RNA VIVIANA+non-probe Ql (Stl) Not detected Normal [facility] Comment on above: Performed By: #### 3 [id number], 4274483793, 667199084 ####[place] [address] S. enterica+bongori DNA VIVIANA+non-probe Ql (Stl) Not detected Normal [facility] Comment on above: Result Comment: This test result should be correlated with clinical presentations and medical history by a healthcare provider to determine its clinical significance. Performed By: #### 3 [id number], [id number], [id number] ####[place] [address] Shigella species+EIEC invasion plasmid antigen H ipaH gene VIVIANA+non-probe Ql (Stl) Not detected Normal [facility] Comment on above: Performed By: #### 3 [id number], 7274743843, 059648105 ####[place] [address] V. cholerae+parahaemolyt icus+vulnificus DNA VIVIANA+non-probe Ql (Stl) Not detected Normal [facility] Comment on above: Performed By: #### 3 [id number], 2638100948, 807039573 ####[facility] [address] [place] [address] Y. enterocolitica DNA VIVIANA+non-probe Ql (Stl) Not detected Normal [facility] Comment on above: Performed By: #### 3 [id number], [id number], 281569990 ####[facility] [address] [place] [address] Free T4on 07-27-2022 Free T4 [Mass/Vol] 1.91 ng/dL High 0.58-1.64 [facility] Comment on above: Order Comment: Free T4 added by Discern Rule due to a TSH result of <0.34 or >5.60. Performed By: #### 2 222865, 7113394, 1187525, 3912676, 640713922, 94387188 ####[facility] [address] [place] [address] HEMATOLOGYOrdered By: Tonya Martin on 07-27-2022 WBC corrected for nucl RBC Auto (Bld) [#/Vol] 7.8 E9/L Normal 4.0 - 11.0 E9/L [facility] HemeAutoSS Inpatient Clinical Summaryon 07-27-2022 Inpatient Clinical Summary Normal [facility] Inpatient Patient Summaryon 07-27-2022 Inpatient Patient Summary Normal [facility] Inpatient Patient Summary Normal [facility] Interdisciplinary Note - Oumar e Manageron 07-27-2022 Interdisciplinary Note - Registered Nurse Teacher Normal [facility] Comment on above: Result Comment: Elec tronically Signed By: Tonya Matias.alicja\Date and Time Signed: 07/27/22 12:04 EDT Interdisciplinary Note - Pipe n 07-27-2022 Interdisciplinary Note - OT Normal [facility] Interdisciplinary Note - PTo n 07-27-2022 Interdisciplinary Note - PT PT eval completed; pt scores 16/24 on the AM-PAC 6-Clicks 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 Pt is able to safely perform bed <> chair transfers as she was doing prior to admission and has no further PT needs at this time. Normal [facility] Lipid Panelon 07-27-2022 Cholesterol in LDL [Mass/Vol] 91 mg/dL Normal <=129 [facility] Comment on above: Performed By: #### 2 788088, 2445535, 1400075, 3013846, 258075757, 90101140 ####[facility] [address] [place] [address] Cholesterol [Mass/Vol] 160 mg/dL Normal 120-200 [facility] Comment on above: Performed By: #### 2 207610, 5367019, 4328149, 8780826, 496035792, 37031435 ####[facility] [address] [place] [address] Cholesterol in HDL [Mass/Vol] 52 mg/dL Invalid Interpretation Code [facility] Comment on above: Result Comment: HDL > or equal to 60 mg/dL: Low cardiovascular riskHDL < 40 mg/dL : High cardiovascular risk Performed By: #### 2 646988, 7456354, 2940094, 1462214, 724361035, 55395450 ####[facility] [address] [place] [address] Cholesterol in VLDL [Mass/Vol] 17 mg/dL Normal 7-40 [facility] Comment on above: Performed By: #### 2 178800, 1016647, 4391077, 5997130, 280770308, 67508089 ####[facility] [address] [place] [address] Triglyceride [Mass/Vol] 83 mg/dL Normal <=149 [facility] Comment on above: Performed By: #### 2 438700, 5181311, 4257315, 5976354, 702394681, 04762630 ####[facility] [address] [place] [address] Lyteson 07-27-2022 Anion gap [Moles/Vol] 9 mmol/L Normal 6-16 [facility] Comment on above: Performed By: #### 2 265371, 0071041, 9519304, 6102930, 832913167, 90760458 ####[facility] [address] [place] [address] Chloride [Moles/Vol] 106 mmol/L Normal 101-111 [facility] Comment on above: Performed By: #### 2 186515, 5610358, 7631097, 6765751, 990754620, 88670884 ####[facility] [address] [place] [address] CO2 [Moles/Vol] 26 mmol/L Normal 21-31 [facility] Comment on above: Performed By: #### 2 278057, 0144761, 6309247, 0165265, 452194329, 73853700 ####[facility] [address] [place] [address] Potassium [Moles/Vol] 4.0 mmol/L Normal 3.5-5.3 [facility] Comment on above: Performed By: #### 2 261625, 3841351, 8818314, 0321023, 960709529, 44097468 ####[facility] [address] [place] [address] Sodium [Moles/Vol] 137 mmol/L Normal 135-145 [facility] Comment on above: Performed By: #### 2 054392, 6914549, 9859389, 2381059, 955913586, 75620434 ####[facility] [address] [place] [address] MRA Head w/o Contraston MRA Head w/o Contrast Normal [facility] MRI Brain w/o Contraston MRI Brain w/o Contrast Normal [facility] Monitor Recordon 07-27-2022 Monitor Record [id number]#1. 00CD:127 Normal [facility] Monitor Record [id number]#1. 00CD:127 Normal [facility] Patient Education - Texton 0 07-27-2022 Patient Education - Text Normal [facility] RAD - MRI Screening Formon 0 07-27-2022 RAD - MRI Screening Form [id number]#1. 00CD:127 Normal [facility] TSH With T4fr Reflexon 07-27 TSH Qn 0.16 m[IU]/L Low 0.34-5.60 [facility] Comment on above: Performed By: #### 2 179119, 2039021, 2488438, 2175738, 424382471, 65297836 ####[facility] [address] [place] [address] Troponin 9 Hr.on 07-27-2022 Troponin I.cardiac [Mass/Vol] 6.70 pg/mL Low 10.10-27.10 [facility] Comment on above: Result Comment: The 95% CI (Confidence Interval) PPV (Positive Predictive Value) for myocardial infarction in females is 38 pg/mL, in males 51 pg/mL. The results should be used in conjunction with clinical conditions of myocardial infarction.(Access High Sensitivity Troponin I Instructions For Use, [employer], November 2017) Performed By: #### 1 [id number] ####[facility] [address] [place] [address] WBCon 07-27-2022 WBC corrected for nucl RBC Auto (Bld) [#/Vol] 7.8 E9/L Normal 4.0-11.0 [facility] Comment on above: Performed By: #### 2 286099, 1808009, 5437066, 1546481, 080622109, 34717868 ####[facility] [address] [place] [address] Auto Diffon 07-26-2022 Basophils/100 WBC (Bld) 0.5 % Normal 0.0-2.0 [facility] Comment on above: Order Comment: Order Added by Discern Expert. Performed By: #### 2 476080, 2913678, 1162568, 0402436, 03027660, 81933645 ####[facility] [address] [place] [address] Basophils/Leukocytes Auto (Bld) [Pure # fraction] 0.1 E9/L Normal 0.0-0.2 [facility] Comment on above: Order Comment: Order Added by Discern Expert. Performed By: #### 2 319462, 5548260, 0208865, 8964664, 95341829, 35723588 ####[facility] [address] [place] [address] Eosinophils/100 WBC (Bld) 0.5 % Normal 0.0-8.0 [facility] Comment on above: Order Comment: Order Added by Discern Expert. Performed By: #### 2 000016, 4628279, 1790193, 4854462, 61781192, 23891946 ####[address] [address] Eosinophils/Leukocyte s Auto (Bld) [Pure # fraction] 0.1 E9/L Normal 0.0-0.5 [facility] Comment on above: Order Comment: Order Added by Ham Expert. Performed By: #### 2 222552, 2749051, 0767337, 5482771, 61718657, 73711878 ####[address] [address] Lymphocytes/100 WBC (Bld) 14.5 % Normal 14.0-50.0 [facility] Comment on above: Order Comment: Order Added by Ham Expert. Performed By: #### 2 693972, 3375054, 1773242, 1855815, 95192997, 78862326 ####[address] [address] Lymphocytes/Leukocyte s Auto (Bld) [Pure # fraction] 2.1 E9/L Normal 1.0-4.0 [facility] Comment on above: Order Comment: Order Added by Ham Expert. Performed By: #### 2 680596, 5743327, 1251730, 4909301, 02301588, 75011714 ####[place] [place] [address] Monocytes/100 WBC (Bld) 6.5 % Normal 4.0-14.0 [facility] Comment on above: Order Comment: Order Added by Discern Expert. Performed By: #### 2 306326, 0406675, 7892780, 5876204, 76162881, 81564102 ####[facility] [address] [place] [address] Monocytes/Leukocytes Auto (Bld) [Pure # fraction] 0.9 E9/L Normal 0.2-1.0 [facility] Comment on above: Order Comment: Order Added by Discern Expert. Performed By: #### 2 382428, 0056192, 3244245, 8604914, 71293187, 19706212 ####[facility] [address] [place] [address] Neutrophils/100 WBC (Bld) 78.0 % High 36.0-75.0 [facility] Comment on above: Order Comment: Order Added by Discern Expert. Performed By: #### 2 656848, 1168224, 1589706, 3314087, 19090347, 30637319 ####[facility] [address] [place] [address] Neutrophils/Leukocyte s Auto (Bld) [Pure # fraction] 11.4 E9/L High 2.0-7.5 [facility] Comment on above: Order Comment: Order Added by Discern Expert. Performed By: #### 2 277559, 2609441, 9084078, 6649139, 25361643, 23096507 ####[facility] [address] [place] [address] BMPon 07-26-2022 Creatinine [Mass/Vol] 0.8 mg/dL Normal 0.5-1.3 [facility] Comment on above: Performed By: #### 2 668186, 7578348, 0915213, 5935620, 77436199, 45015123 ####[facility] [address] [place] [address] Urea nitrogen [Mass/Vol] 11 mg/dL Normal 5-21 [facility] Comment on above: Performed By: #### 2 778844, 1733062, 7294383, 7733111, 10249164, 52313717 ####[facility] [address] [place] [address] Urea nitrogen/Creatinine [Mass ratio] 14 No Units Normal 10-20 [facility] Comment on above: Performed By: #### 2 971744, 1299434, 0303674, 2365414, 79794684, 57282211 ####[facility] [address] [facility] [place] [address] Anion gap [Moles/Vol] 13 mmol/L Normal 6-16 [facility] Comment on above: Performed By: #### 2 359758, 5406446, 6059131, 5159908, 86602894, 32133004 ####[facility] [address] [place] [address] Calcium [Mass/Vol] 9.3 mg/dL Normal 8.9-11.1 [facility] Comment on above: Performed By: #### 2 767189, 3373063, 8262115, 4212489, 73781778, 47706364 ####[facility] [address] [place] [address] Chloride [Moles/Vol] 101 mmol/L Normal 101-111 [facility] Comment on above: Performed By: #### 2 670528, 5920405, 6098288, 1170672, 14966951, 89898490 ####[facility] [address] [place] [address] CO2 [Moles/Vol] 27 mmol/L Normal 21-31 [facility] Comment on above: Performed By: #### 2 929504, 6383124, 6942674, 8322192, 75052878, 16691760 ####[facility] [address] [place] [address] Glucose [Mass/Vol] 88 mg/dL Normal 55-199 [facility] Comment on above: Result Comment: If t his glucose result represents a fasting glucose, interpretation should refer to the following reference range: 55-99 mg/dL Performed By: #### 2 294109, 3461989, 5270181, 9690896, 28844799, 32176463 ####[facility] [address] [place] [address] Potassium [Moles/Vol] 3.6 mmol/L Normal 3.5-5.3 [facility] Comment on above: Performed By: #### 2 153843, 8740407, 0205186, 2273669, 70476929, 34950723 ####[facility] [address] [place] [address] Sodium [Moles/Vol] 137 mmol/L Normal 135-145 [facility] Comment on above: Performed By: #### 2 206448, 0922910, 8440680, 4231185, 95619719, 04157170 ####[address] [address] CBC w/ Auto Diffon 3 Erythrocyte distribution width (RBC) [Ratio] 13.9 % Normal 10.9-14.2 [facility] Comment on above: Performed By: #### 2 299646, 7959790, 8127418, 9753569, 35007474, 50487358 ####[facility] [address] [place] [address] Hematocrit (Bld) [Volume fraction] 47.0 % High 34.0-46.0 [facility] Comment on above: Performed By: #### 2 394198, 4284329, 4565634, 7284178, 27578326, 09571807 ####[facility] [address] [place] [address] Hemoglobin (Bld) [Mass/Vol] 15.3 g/dL Normal 12.0-16.0 [facility] Comment on above: Performed By: #### 2 958840, 6887259, 9764343, 4673490, 41121801, 42292319 ####[facility] [address] [place] [address] MCH (RBC) [Entitic mass] 29.2 pg Normal 27.0-34.0 [facility] Comment on above: Performed By: #### 2 799244, 7024278, 8374308, 6510983, 92124690, 26174846 ####[address] [address] MCHC (RBC) [Mass/Vol] 32.7 g/dL Normal 31.4-36.0 [facility] Comment on above: Performed By: #### 2 275617, 7212869, 2860914, 1844565, 80936293, 07778725 ####[address] [address] MCV (RBC) [Entitic vol] 89.3 fL Normal 80.0-100.0 [facility] Comment on above: Performed By: #### 2 294259, 6483868, 1182107, 9149714, 92152865, 12869743 ####[address] [address] Platelet mean volume (Bld) [Entitic vol] 6.7 fL Normal 6.4-10.8 [facility] Comment on above: Performed By: #### 2 347267, 9322424, 2200391, 8380880, 42478355, 89091997 ####[address] [address] Platelets (Bld) [#/Vol] 324.0 E9/L Normal 150.0-500.0 [facility] Comment on above: Performed By: #### 2 956598, 8572842, 1360568, 1381679, 37909636, 62815475 ####[address] [address] RBC (Bld) [#/Vol] 5.3 E12/L Normal 4.3-5.9 [facility] Comment on above: Performed By: #### 2 683987, 5746001, 7690213, 1819133, 52654189, 60000295 ####[facility] [address] [place] [address] WBC corrected for nucl RBC Auto (Bld) [#/Vol] 14.6 E9/L High 4.0-11.0 [facility] Comment on above: Performed By: #### 2 137375, 7297004, 5561981, 3174243, 67922175, 57073059 ####[facility] [address] [place] [address] CHEMISTRYOrdered By: SYSTEM SYSTEM on 07-26-2022 Troponin [...] mg/dL Normal 1.3 - 2 .4 mg/dL [facility] Remisol Potassium [Moles/Vol] 3.6 mmol/L Normal 3.5 - 5.3 mmol/L [facility] Remisol Sodium [Moles/Vol] 137 mmol/L Normal 135 - 145 mmol/L [facility] Remisol Urea nitrogen [Mass/Vol] 11 mg/dL Normal 5 - 21 mg/dL [facility] Remisol Urea nitrogen/Creatinine [Mass ratio] 14 mg/mg Normal 10 - 20 [facility] Remisol CHEMISTRYOrdered By: Lab ROP User on 07-26-2022 Glucose [Mass/Vol] 106 mg/dL High 55 - 99 mg/dL [facility] POC Subsection Comment on above: Result Comment: Parker wills RN/ POC Device SN [id number] Invalid Interpretation Code [facility] POC Subsection POC User ID [id number] Invalid Interpretation Code [facility] POC Subsection POC Username SHANKAR ABARCA Invalid Interpretation Code [facility] POC Subsection CT Head or Brain w/o Contras ton 07-26-2022 CT Head or Brain w/o Contrast Normal [facility] Capillary Glucose POCon Glucose [Mass/Vol] 106 mg/dL High 55-99 [facility] Comment on above: Result Comment: Parker wills RN/ Performed By: #### 2 [id number] ####[facility] [address] [place] [address] Consent for Treatmenton Consent for Treatment [id number] 0CD:127 Normal [facility] ED Clinical Summaryon 2022 ED Clinical Summary Normal [facility] ED Note-Physicianon 07-27-19 ED Note-Physician Normal [facility] Comment on above: Result Comment: Elec tronically Signed By: Yaritza Cedeño PA-C\.br\Date and Time Signed: 07/26/22 14:17 EDT\.br\Electronically Co-Signed By: Lance Wu M.D.\.br\Date and Time Co-Signed: 07/26/22 15:36 EDT ED Patient Education Noteon 07-26-2022 ED Patient Education Note Normal [facility] ED Patient Summaryon 023 ED Patient Summary Normal [facility] HEMATOLOGYOrdered By: SYSTEM SYSTEM on 07-26-2022 [...] 14.6 E9/L High 4.0 - 11.0 E9/L [facility] HemeAutoSS Magnesiumon 07-26-2022 Magnesium [Mass/Vol] 2.0 mg/dL Normal 1.3-2.4 [facility] Comment on above: Performed By: #### 2 883083, 2456931, 1447960, 5457829, 82768629, 57831396 ####[facility] [address] [place] [address] Monitor Recordon 07-26-2022 Monitor Record [id number]. [id number]:127 Normal [facility] Pre-Arrival Noteon 3 Pre-Arrival Note Normal [facility] Troponin 0 Hr.on 07-26-2022 Troponin I.cardiac [Mass/Vol] 6.60 pg/mL Low 10.10-27.10 [facility] Comment on above: Order Comment: pt st ill in imaging, will check back later [id number] 07/26/2022 12:32:06 EDT Result Comment: The 95% CI (Confidence Interval) PPV (Positive Predictive Value) for myocardial infarction in females is 38 pg/mL, in males 51 pg/mL. The results should be used in conjunction with clinical conditions of myocardial infarction.(Access High Sensitivity Troponin I Instructions For Use, Christy Larry, November 2017) Performed By: #### 2 035044, 7518769, 4494988, 5965962, 47911741, 19789115 ####[facility] [address] [place] [address] Troponin 3 Hr.on 07-26-2022 Troponin I.cardiac [Mass/Vol] 6.00 pg/mL Low 10.10-27.10 [facility] Comment on above: Result Comment: The 95% CI (Confidence Interval) PPV (Positive Predictive Value) for myocardial infarction in females is 38 pg/mL, in males 51 pg/mL. The results should be used in conjunction with clinical conditions of myocardial infarction.(Access High Sensitivity Troponin I Instructions For Use, [employer], November 2017) Performed By: #### 1 [id number] ####[address] [address] Troponin 6 Hr.on 07-26-2022 Troponin I.cardiac [Mass/Vol] 5.40 pg/mL Low 10.10-27.10 [facility] Comment on above: Result Comment: The 95% CI (Confidence Interval) PPV (Positive Predictive Value) for myocardial infarction in females is 38 pg/mL, in males 51 pg/mL. The results should be used in conjunction with clinical conditions of myocardial infarction.(Access High Sensitivity Troponin I Instructions For Use, [employer], November 2017) Performed By: #### 1 8436963 ####[address] [address] UA With Cult Reflexon 2022 Bacteria LM Ql (Urine sed) TRACE Normal Trace [facility] Comment on above: Performed By: #### 1 8245957 ####[address] [address] Bilirubin Ql (U) Negative Normal Negative [facility] Comment on above: Performed By: #### 1 5767810 ####[address] [address] Clarity (U) CLEAR Normal Clear [facility] Comment on above: Performed By: #### 1 2470652 ####[address] [address] Color (U) YELLOW Normal Yellow [facility] Comment on above: Performed By: #### 1 7783237 ####[facility] [address] [place] [address] Epithelial cells.squamous LM.HPF (Urine sed) [#/Area] 3-4 Normal 0-2 [facility] Comment on above: Performed By: #### 1 0019097 ####[address] [place] [address] Glucose Test strip (U) [Mass/Vol] Negative Normal Negative [facility] Comment on above: Performed By: #### 1 1203310 ####[address] [address] Hemoglobin Ql (U) Negative Normal Negative [facility] Comment on above: Performed By: #### 1 4748777 ####[address] [address] Ketones (U) [Mass/Vol] Negative Normal Negative [facility] Comment on above: Performed By: #### 1 9854549 ####[address] [address] [place].plasma/Lithiu m.RBC (Bld) [Mass ratio] 0-3 Normal 0-3 [facility] Comment on above: Performed By: #### 1 4126967 ####[address] [address] Nitrite Ql (U) Negative Normal Negative [facility] Comment on above: Performed By: #### 1 2042228 ####[address] [address] pH (U) 6.5 [pH] Invalid Interpretation Code 5.0-9.0 [facility] Comment on above: Performed By: #### 1 2508737 ####[address] [address] Protein (U) [Mass/Vol] Negative Normal Negative [facility] Comment on above: Performed By: #### 1 0275981 ####[address] [address] Specific gravity (U) [Rel density] <=1.005 Invalid Interpretation Code 1.005-1.030 [facility] Comment on above: Performed By: #### 1 2673582 ####[facility] [address] [place] [address] Type of Urine collection method Clean Catch Normal [facility] Comment on above: Performed By: #### 1 0930714 ####[facility] [address] [place] [address]33157 Urobilinogen Qn (U) 0.2 {Malu'U}/dL Normal 0.0-1.0 [facility] Comment on above: Performed By: #### 1 4841197 ####[facility] [address] [place] [address] WBC Auto Ql (U) TRACE Abnormal Negative [facility] Comment on above: Performed By: #### 1 9533328 ####[place] [address] WBC LM.HPF (Urine sed) [#/Area] 0-5 Normal 0-5 [facility] Comment on above: Performed By: #### 1 5036894 ####[place] [address] URINALYSISOrdered By: Katerina Parker on 07-26-2022 Bacteria [...] PM) Normal Negative [facility] UA Auto SS [place].plasma/Lithiu m.RBC (Bld) [Mass ratio] 0-3 /HPF Normal [...] FT UA Auto SS Urobilinogen Qn (U) 0.5671701 {Malu'U}/dL Normal 0.0 - 1.0 EU/dL [facility] UA Auto SS WBC Auto Ql (U) Trace *ABN* (07/26/22 4:49 PM) Invalid Interpretation Code Negative [facility] UA Auto SS WBC LM.HPF (Urine sed) [#/Area] 0-5 /HPF Normal 0-5/HPF [facility] UA Auto SS XR Chest Single Viewon 07-26 XR Chest Single View Normal [facility] eGFRon 07-26-2022 GFR/1.73 sq M.predicted among blacks MDRD (S/P/Bld) [Vol rate/Area] mL/min/{1.73_m2} Normal >=59 [facility] Comment on above: Order Comment: Order added by Discern Expert. Result Comment: eGFR is race adjusted. AA=. Performed By: #### 2 729077, 3114735, 3078497, 4903444, 83401384, 19516020 ####[facility] [address] [place] [address] GFR/1.73 sq M.predicted among non-blacks MDRD (S/P/Bld) [Vol rate/Area] mL/min/{1.73_m2} Normal >=59 [facility] Comment on above: Order Comment: Order added by Discern Expert. Result Comment: [employer]er gina kidney disease could be indicated at eGFR's of less than 60 mL/min/1.73m2. Kidney failure is indicated at less than 15 mL/min/1.73m2. Performed By: #### 2 748762, 8983568, 3471614, 4871785, 83556059, 40262439 ####[facility] [address] [place] [address] SURGICAL PATH REPORTon 07-25 SURGICAL PATH REPORT [facility] Department of Pathology [address] [place] [id number] Name: LEELEE CEDILLO : 1950 [facility] [id number] Number: [facility] : n: Admit 71 years Attending ADELE FLEMING Age: Provider: Ordering ADELE FLEMING Provider: Consulti Surgical Pathology Report ng: ACCESSION: COLLECTED DATE/TIME: RECEIVED DATE/TIME: PATHOLOGIST: [id number] 07/24/2022 12:16 EDT 07/24/2022 12:16 EDT MICHELINE STERN MD Final Diagnosis Report for [facility] [place] [place] RIGHT ANKLE, PUNCH BIOPSY: - FRAGMENT [...] MP:alexa 07/24/2022 Tissue pathology report for: [facility], [address] [place] [address]; ____ ____ Print 07/25/2022 15:48 EDT Number: Date/Time: [facility] Department of Pathology [address] [place], [place] [id number] Name: LEELEE CEDILLO : 1950 [employer] [id number] Number: Gender Female [employer] BASILIOFrida OSWALDO : n: Admit 71 years Attending ADELE FLEMING Age: Provider: Ordering ADELE FLEMING Provider: Consulti Surgical Pathology Report ng: ACCESSION: COLLECTED DATE/TIME: RECEIVED DATE/TIME: PATHOLOGIST: [id number] 07/24/2022 12:16 EDT 07/24/2022 12:16 EDT LEENA RUFF, MICHELINE Gross Description PATHOLOGY SERVICES PROVIDED BY [employer] (CLIA #[id number]) in cooperation with [facility] at [address] [place] [address] ( CLIA #[id number]) Microscopic Diagnosis The final diagnosis is based on a microscopic exam of sales representative womens health sections. Codes CPT CODE: 19923 ____ ____ Print 07/25/2022 15:48 EDT Number: Date/Time: [facility] Comment on above: Performed By: #### 9 [id number] #### [facility] [address] [place] [address] Lubrication Worker: Jared Oh MD POINT OF CARE GLUCOSEon 04-0 Glucose [Mass/Vol] 114 mg/dL Critically high 74-106 [facility] Comment on above: Performed By: #### P OCGLUC #### [facility] [address] [place] [address] [address] Salvador Yung Glucose [Mass/Vol] 112 mg/dL Critically high 74-106 [facility] Comment on above: Performed By: #### P OCGLUC #### [facility] [address] [place] [address] [address] Salvador Yung EMS Documentationon 07-21-19 EMS Documentation Normal [facility] Covid-19 PCR (CVDTBH)on 06-20 SARS-CoV-2 (COVID-19) RNA VIVIANA+probe Ql (Unsp spec) Not detected Normal NOT DETECTED [facility] Comment on above: Result Comment: This test is not yet approved or cleared by the [place] FDA. When there are no FDA-approved or cleared tests available, and other criteria are met, FDA can make tests available under an emergency access mechanism called an Emergency Use Authorization (EUA). The EUA for this test is supported by the Director Of Logistics of Health and Human Service's (HHS's) declaration [...] SARS-CoV-2. Performed By: #### C VDTBH #### [facility] [address] [place], [place] [address] Dr. Salvador Yung PROF CHEM 8 (BAS METB)on Anion gap [Moles/Vol] 12.0 mmol/L Normal [facility] Comment on above: Performed By: #### B MP #### [facility] [address] [place] [address] [address] Salvador Yung Calcium [Mass/Vol] 9.4 mg/dL Normal 8.5-10.[address] [facility] Comment on above: Performed By: #### B MP #### [facility] [address] [place] [address] [address] Salvador Yung Chloride [Moles/Vol] 100 mmol/L Normal 98-107 [facility] Comment on above: Performed By: #### B MP #### [facility] [address] [place] [address] [address] Salvador Yung CO2 [Moles/Vol] 29.8 mmol/L Normal 21.0-32.[address] [facility] Comment on above: Performed By: #### B MP #### [facility] [address] [place] [address] [address] Salvador Yung Creatinine [Mass/Vol] 0.91 mg/dL Normal 0.55-1.02 [facility] Comment on above: Performed By: #### B MP #### [facility] [address] [place] [address] [address] Salvador Yung EGFR-AF EQUATORIAL GUINEAN >60 Normal >=60 [facility] Comment on above: Performed By: #### B MP #### [facility] [address] [place] [address] [address] Salvador Yung EGFR-NON AF EQUATORIAL GUINEAN >60 Normal >=60 [facility] Comment on above: Performed By: #### B MP #### [facility] [address] [place] [address] [address] Salvador Yung Glucose [Mass/Vol] 82 mg/dL Normal 74-[address] [facility] Comment on above: Performed By: #### B MP #### [facility] [address] [place] [address] [address] Salvador Yung Potassium [Moles/Vol] 3.8 mmol/L Normal 3.5-5.1 [facility] Comment on above: Performed By: #### B MP #### [facility] [address] [place] [address] [address] Salvador Yung Sodium [Moles/Vol] 138 mmol/L Normal 136-145 [facility] Comment on above: Performed By: #### B MP #### [facility] [address] [place] [address] [address] Salvador Yung Urea nitrogen [Mass/Vol] 12.0 mg/dL Normal 7.0-18.0 [facility] Comment on above: Performed By: #### B MP #### [facility] [address] [place] [address] [address] Salvador Yung Urea nitrogen/Creatinine [Mass ratio] 13.2 mg/mg Normal [facility] Comment on above: Performed By: #### B MP #### [facility] [address] [place] [address] [address] Salvador Yung VC INJ SCL JESSICA MOVIE THEATER USHER VEINSon 0 07-01-2022 VC INJ SCL JESSICA MOVIE THEATER USHER VEINS Patient: LEELEE CEDILLO Exam Date: 07/01/2022 : 1950 Gender:F Ordering : DR ALFRED UMAÑA M.D. Admission #: [id number] Family : Order #: [id number] CLICK HERE TO VIEW EXAM RADIOLOGY REPORT [...] Lobato M.D. on 07/01/2022 at 15:22 Normal [facility] VC CONSULT FOLLOWUPon 2022 VC CONSULT FOLLOWUP Patient: ITZEL CEDILLO Exam Date: 06/19/2022 : 1950 Gender:F Ordering : DR ALFRED UMAÑA M.D. Admission #: [id number] Family : Order #: [id number] CLICK HERE TO VIEW EXAM RADIOLOGY REPORT [...] Umaña MD on 06/19/2022 at 14:17 Normal [facility] VC EXT VENOUS LT LIMITEDon 0 06-19-2022 VC EXT VENOUS LT LIMITED Patient: LEELEE CEDILLO Exam Date: 06/19/2022 : 1950 Gender:F Ordering : DR ALFRED UMAÑA M.D. Admission #: [id number] Family : Order #: [id number] CLICK HERE TO VIEW EXAM RADIOLOGY REPORT [...] Umaña MD on 06/19/2022 at 14:15 Normal [facility] VC INJ FOAM SCLERO W US MLTI on 06-13-2022 VC INJ FOAM SCLERO W US MLTI Patient: LEELEE CEDILLO Exam Date: 06/13/2022 : 1950 Gender:F Ordering : DR ALFRED UMAÑA M.D. Admission #: [id number] Family : Order #: [id number] CLICK HERE TO VIEW EXAM RADIOLOGY REPORT [...] duple (more content not included)... Normal [facility] VC CONSULT FOLLOWUPon 2022 VC CONSULT FOLLOWUP Patient: ITZEL CEDILLO Exam Date: 06/10/2022 : 1950 Gender:F Ordering : DR ALFRED UMAÑA M.D. Admission #: [id number] Family : Order #: [id number] CLICK HERE TO VIEW EXAM RADIOLOGY REPORT [...] physical exam and consultation Dictated by: Julio Lobaot M.D. on 06/10/2022 at 12:33 Approved by: Julio Lobato M.D. on 06/10/2022 at 12:36 Normal [facility] VC EXT VENOUS RT LIMITEDon 0 06-10-2022 VC EXT VENOUS RT LIMITED Patient: LEELEE CEDILLO Exam Date: 06/10/2022 : 1950 Gender:F Ordering : DR ALFRED UMAÑA M.D. Admission #: [id number] Family : Order #: [id number] CLICK HERE TO VIEW EXAM RADIOLOGY REPORT [...] Lobato M.D. on 06/10/2022 at 12:33 Normal [facility] VC INJ FOAM SCLERO W US MLTI on 06-03-2022 VC INJ FOAM SCLERO W US MLTI Patient: LEELEE CEDILLO Exam Date: 06/03/2022 : 1950 Gender:F Ordering : DR ALFRED UMAÑA M.D. Admission #: [id number] Family : Order #: [id number] CLICK HERE TO VIEW EXAM RADIOLOGY REPORT PROCEDURE: VEIN CENTER INJECTION FOAM SCLEROSING SOLUTION WITH ULTRASOUND MULTIPLE VEINS COMPARISON: None. Pre-operative Diagnosis: CEAP class C6 venous insufficiency with pain, tenderness, edema and incompetent right small saphenous vein and movie writer vein, incompetent varicose veins, venous insufficiency right leg secondary to venous incompetence Post-operative Diagnosis: CEAP class C6 venous insufficiency with pain, tenderness, edema and incompetent right small saphenous vein and movie writer vein, incompetent varicose veins, venous insufficiency right [...] l (more content not included)... Normal [facility] VC CONSULT FOLLOWUPon 2022 VC CONSULT FOLLOWUP Patient: ITZEL CEDILLO Exam Date: 05/28/2022 : 1950 Gender:F Ordering : DR ALFRED UMAÑA M.D. Admission #: [id number] Family : Order #: [id number] CLICK HERE TO VIEW EXAM RADIOLOGY REPORT [...] Umaña MD on 05/28/2022 at 11:44 Normal [facility] VC EXT VENOUS RT LIMITEDon 0 05-28-2022 VC EXT VENOUS RT LIMITED Patient: LEELEE CEDILLO Exam Date: 05/28/2022 : 1950 Gender:F Ordering : DR ALFRED UMAÑA M.D. Admission #: [id number] Family : Order #: [id number] CLICK HERE TO VIEW EXAM RADIOLOGY REPORT [...] extends to distal lower leg. Thrombus in movie writer distal medial lower leg 2.8 mm from [...] MD on 05/28/2022 at 11:30 Normal [facility] CBC AUTO DIFFon 05-21-2022 BASO # 0.1 103/ul Normal 0.0-0.1 [facility] Comment on above: Performed By: #### C BC #### [facility] [address] [place] [address] [address] Salvador Yung Basophils/100 WBC (Bld) 0.6 % Normal 0.2-2.0 [facility] Comment on above: Performed By: #### C BC #### [facility] [address] [place] [address] Dr. Salvador Yung EO # 0.1 103/ul Normal 0.0-0.7 [facility] Comment on above: Performed By: #### C BC #### [facility] [address] [place] [address] Dr. Salvador Yung Eosinophils/100 WBC (Bld) 0.6 % Critically low 0.9-7.0 [facility] Comment on above: Performed By: #### C BC #### [facility] [address] [place] [address] Dr. Salvador Yung Erythrocyte distribution width (RBC) [Ratio] 12.4 % Normal 11.0-15.0 [facility] Comment on above: Performed By: #### C BC #### [facility] [address] [place] [address] Dr. Salvador Yung Hematocrit (Bld) [Volume fraction] 43.1 % Normal 36.0-48.0 [facility] Comment on above: Performed By: #### C BC #### [facility] [address] [place] [address] Dr. Salvador Yung Hemoglobin (Bld) [Mass/Vol] 13.8 g/dL Normal 12.0-16.0 [facility] Comment on above: Performed By: #### C BC #### [facility] [address] [place] [address] Dr. Salvador Yung IG # 0.06 10e3/ul Critically high 0.00-0.03 [facility] Comment on above: Performed By: #### C BC #### [facility] [address] [place] [address] Dr. Salvador Yung IG % 0.7 % Critically high 0.0-0.5 [facility] Comment on above: Performed By: #### C BC #### [facility] [address] [place] [address] Dr. Salvador Yung LYMPH # 1.7 103/ul Normal 1.2-3.8 [facility] Comment on above: Performed By: #### C BC #### [facility] [address] [place] [address] Dr. Salvador Yung Lymphocytes/100 WBC (Bld) 20.2 % Critically low 20.5-60.0 [facility] Comment on above: Performed By: #### C BC #### [facility] [address] [place] [address] Dr. Salvador Yung MANUAL DIFF REQ NO Normal [facility] Comment on above: Performed By: #### C BC #### [facility] [address] [place] [address] Dr. Salvador Yung MCH (RBC) [Entitic mass] 30.1 pg Normal 26.7-34.0 [facility] Comment on above: Performed By: #### C BC #### [facility] [address] [place] [address] Dr. Salvador Yung MCHC (RBC) [Mass/Vol] 32.0 g/dL Normal 29.9-35.2 [facility] Comment on above: Performed By: #### C BC #### [facility] [address] [place] [address] Dr. Salvador Yung MCV (RBC) [Entitic vol] 93.9 fL Normal 81.0-99.0 [facility] Comment on above: Performed By: #### C BC #### [facility] [address] [place] [address] Dr. Salvador Yung MONO # 0.5 103/ul Normal 0.3-0.8 [facility] Comment on above: Performed By: #### C BC #### [facility] [address] [place] [address] Dr. Salvador Yung Monocytes/100 WBC (Bld) 6.1 % Normal 1.7-12.0 [facility] Comment on above: Performed By: #### C BC #### [facility] [address] [place] [address] Dr. Salvador Yung NEUT # 6.1 103/ul Normal 1.4-6.5 [facility] Comment on above: Performed By: #### C BC #### [facility] [address] [place] [address] Dr. Salvador Yung Neutrophils/100 WBC (Bld) 71.8 % Normal 43.0-75.0 [facility] Comment on above: Performed By: #### C BC #### [facility] [address] [place] [address] Dr. Salvador Yung Platelet mean volume (Bld) [Entitic vol] 8.2 fL Critically low 9.5-13.5 [facility] Comment on above: Performed By: #### C BC #### [facility] [address] [place] [address] Dr. Salvador Yung PLT 246 103/ul Normal 150-450 [facility] Comment on above: Performed By: #### C BC #### [facility] [address] [place] [address] Dr. Salvador Yung RBC 4.59 106/ul Normal 4.20-5.40 [facility] Comment on above: Performed By: #### C BC #### [facility] [address] [place] [address] Dr. Salvador Yung WBC 8.5 103/ul Normal 4.0-11.0 [facility] Comment on above: Performed By: #### C BC #### [facility] [address] [place] [address] Dr. Salvador Yung FREE T3on 05-21-2022 FREE T3 2.14 pg/mlL Critically low 2.18-3.98 [place] Comment on above: Performed By: #### P OCGLUC #### [facility] [address] [address] [address] Salvador Yung GLYCOHEMOGLOBIN A1Con 2022 ADA RECOMMENDATION SEE BELOW Normal [facility] Comment on above: Result Comment: ADA RECOMMENDED LIMIT 4.0 - 6.0 ADA THERAPEUTIC TARGET < 7.0 ACTION SUGGESTED > 7.0 Performed By: #### P OCGLUC #### [facility] [address] [address] [address] Salvador Yung Glucose [Mass/Vol] 100 mg/dL Normal [facility] Comment on above: Performed By: #### P OCGLUC #### [facility] [address] [place] [address] Dr. Salvador Yung HbA1c (Bld) [Mass fraction] 5.1 % Normal 4.5-6.2 [facility] Comment on above: Performed By: #### P OCGLUC #### [facility] [address] [place] [address] Dr. Salvador Yung LIPID PROFILEon 05-21-2022 CHOL-HDL RATIO NORM SEE BELOW Normal [facility] Comment on above: Result Comment: 3.3 - 4.4 LOW RISK 4.4 - 7.1 AVERAGE RISK 7.1 - 11.0 MODERATE RISK >11.0 HIGH RISK Performed By: #### P OCGLUC #### [facility] [address] [address] [address] Salvador Yung Cholesterol [Mass/Vol] 164 mg/dL Normal <=200 [facility] Comment on above: Performed By: #### P OCGLUC #### [facility] [address] [address] [address] Salvador Yung Cholesterol in HDL [Mass/Vol] 61 mg/dL Critically high 40-60 [facility] Comment on above: Performed By: #### P OCGLUC #### [facility] [address] [address] [address] Salvador Yung Cholesterol in LDL [Mass/Vol] 90.2 mg/dL Normal [facility] Comment on above: Performed By: #### P OCGLUC #### [facility] [address] [address] [address] Salvador Yung Cholesterol.total/Cho lesterol in HDL [Mass ratio] 2.7 {ratio} Normal [facility] Comment on above: Performed By: #### P OCGLUC #### [facility] [address] [address] [address] Salvador Yung HDL NORMAL > or = 60 mg/dl - LO W CARDIOVASCULAR RISK <40 mg/dl - HIGH CARDIOVASCULAR RISK Normal [facility] Comment on above: Performed By: #### P OCGLUC #### [facility] [address] [address] [address] Salvador Yung LDL CALC NORMAL SEE BELOW Normal [place] Comment on above: Result Comment: <100 mg/dl OPTIMAL 100 - 129 mg/dl NEAR OR ABOVE OPTIMAL 130 - 159 mg/dl BORDERLINE HIGH 160 - 189 mg/dl HIGH >190 mg/dl VERY HIGH Performed By: #### P OCGLUC #### [facility] [address] [address] [address] Salvador Yung Triglyceride [Mass/Vol] 64 mg/dL Normal <=150 [facility] Comment on above: Performed By: #### P OCGLUC #### [facility] [address] [address] [address] Salvador Yung VLDL CALC 12.8 mg/dL Normal [facility] Comment on above: Performed By: #### P OCGLUC #### [facility] [address] [address] [address] Salvador Yung PROF 14(COMP METB)on 023 Albumin [Mass/Vol] 3.2 g/dL Critically low 3.4-5.0 Th [facility] Comment on above: Performed By: #### P OCGLUC #### [facility] [address] [place] [address] Dr. Salvador Yung Albumin/Globulin [Mass ratio] 0.7 {ratio} Normal [facility] Comment on above: Performed By: #### P OCGLUC #### [facility] [address] [address] [address] Salvador Yung ALP [Catalytic activity/Vol] 68 U/L Normal 46-116 [facility] Comment on above: Performed By: #### P OCGLUC #### [facility] [address] [place] [address] Dr. Salvador Yung ALT [Catalytic activity/Vol] 25 U/L Normal 14-59 [facility] Comment on above: Performed By: #### P OCGLUC #### [facility] [address] [address] [address] Salvador Yung Anion gap [Moles/Vol] 11.8 mmol/L Normal [facility] Comment on above: Performed By: #### P OCGLUC #### [facility] [address] [place] [address] Dr. Salvador Yung AST [Catalytic activity/Vol] 20 U/L Normal 15-37 [facility] Comment on above: Performed By: #### P OCGLUC #### [facility] [address] [address] [address] Salvador Yung Bilirubin [Mass/Vol] 0.5 mg/dL Normal 0.2-1.0 [facility] Comment on above: Performed By: #### P OCGLUC #### [facility] [address] [place] [address] Dr. Salvador Yung Calcium [Mass/Vol] 8.9 mg/dL Normal 8.5-10.1 [facility] Comment on above: Performed By: #### P OCGLUC #### [facility] [address] [place] [address] Dr. Salvador Yung Chloride [Moles/Vol] 105 mmol/L Normal 98-107 [facility] Comment on above: Performed By: #### P OCGLUC #### [facility] [address] [place] [address] Dr. Salvador Yung CO2 [Moles/Vol] 29.9 mmol/L Normal 21.0-32.[address] [facility] Comment on above: Performed By: #### P OCGLUC #### [facility] [address] [place] [address] Dr. Salvador Yung Creatinine [Mass/Vol] 0.74 mg/dL Normal 0.55-1.02 [facility] Comment on above: Performed By: #### P OCGLUC #### [facility] [address] [address] [address] Salvador Yung EGFR-AF EQUATORIAL GUINEAN >60 Normal >=[address] [facility] Comment on above: Performed By: #### P OCGLUC #### [facility] [address] [address] [address] Salvador Yung EGFR-NON AF EQUATORIAL GUINEAN >60 Normal >=60 [facility] Comment on above: Performed By: #### P OCGLUC #### [facility] [address] [address] [address] Salvador Yung Globulin (S) [Mass/Vol] 4.3 g/dL Normal [facility] Comment on above: Performed By: #### P OCGLUC #### [facility] [address] [place] [address] Dr. Salvador Yung Glucose [Mass/Vol] 88 mg/dL Normal 74-106 [facility] Comment on above: Performed By: #### P OCGLUC #### [facility] [address] [address] [address] Salvador Yung Potassium [Moles/Vol] 3.7 mmol/L Normal 3.5-5.1 [facility] Comment on above: Performed By: #### P OCGLUC #### [facility] [address] [address] [address] Salvador Yung Protein [Mass/Vol] 7.5 g/dL Normal 6.4-8.[address] [facility] Comment on above: Performed By: #### P OCGLUC #### [facility] [address] [address] [address] Salvador Yung Sodium [Moles/Vol] 143 mmol/L Normal 136-[address] [facility] Comment on above: Performed By: #### P OCGLUC #### [facility] [address] [address] [address] Salvador Yung Urea nitrogen [Mass/Vol] 11.0 mg/dL Normal 7.0-18.0 [facility] Comment on above: Performed By: #### P OCGLUC #### [facility] [address] [address] [address] Salvador Yung Urea nitrogen/Creatinine [Mass ratio] 14.9 mg/mg Normal [facility] Comment on above: Performed By: #### P OCGLUC #### [facility] [address] [place] [address] Dr. Salvador Yung T4on 05-21-2022 T4 [Mass/Vol] 11.60 ug/dL Normal 4.80-13.90 [facility] Comment on above: Performed By: #### P OCGLUC #### [facility] [address] [place] [address] Dr. Salvador Yung TSHon 05-21-2022 TSH 0.165 uIU/mL Critically low 0.358-3.740 [facility] Comment on above: Performed By: #### P OCGLUC #### [facility] [address] [place] [address] Dr. Salvador Yung VC ENDOVENOUS ABL 1ST V RTon 05-21-2022 VC ENDOVENOUS ABL 1ST V RT Patient: LEELEE CEDILLO Exam Date: 05/21/2022 : 1950 Gender:F Ordering : DR ALFRED UMAÑA M.D. Admission #: [id number] Family : Order #: [id number] CLICK HERE TO VIEW EXAM RADIOLOGY REPORT [...] MD on 05/21/2022 at 13:51 Normal [facility] VITAMIN D 25 OHon 05-21-2022 VIT D 25-OH 25.1 ng/mL Normal [facility] Comment on above: Performed By: #### V ITAD #### [facility] [address] [place], [place] [address] Dr. Salvador Yung VIT D RANGES SEE BELOW Normal [facility] Comment on above: Result Comment: <20 ng/mL Vit D deficient 20 - <30 ng/mL Vit D insufficient 30 - 100 ng/mL Vit D sufficient >100 ng/mL Potential Toxicity Performed By: #### V ITAD #### [facility] [address] [address] [address] Salvador Yung XR HIP LT 2 [...] MARI LORENZO Date: 2022-05-21 16:26 Normal [facility] VC COMP CONSULTATIONon 05-01 VC COMP CONSULTATION Patient: REAGAN CEDILLO Exam Date: 05/01/2022 : 1950 Gender:F Ordering : DR. ADELE FLEMING D.P.MKimberlee Admission #: [id number] Family : Order #: [id number] CLICK HERE [...] small saphenous vein, right lower extremity incompetent movie writer veins, and bilateral lower extremity incompetent branch [...] ablation of right small saphenous vein and movie writer vein. 4. Microfoam chemical ablation of dilated, [...] Lobato M.D. on 05/01/2022 at 15:27 Normal [facility] VC VENOUS REFLUX SAMI LMTon 0 05-01-2022 VC VENOUS REFLUX SAMI LMT Patient: LEELEE CEDILLO Exam Date: 05/01/2022 : 1950 Gender:F Ordering : DR. ADELE FLEMING D.P.M. Admission #: [id number] Family : DR ALFRED UMAÑA M.D. Order #: [id number] CLICK HERE TO VIEW EXAM RADIOLOGY REPORT [...] chronic thrombus visualized Compressibility: Normal Flow: Normal [employer]: Dist/med calf 2.6mm with 0s reflux. Mid/med calf 3.5mm with 0s reflux. Tech Note: GSV has been previously stripped. Patent varicose vein mid/med calf 2.3mm with 0.5s reflux. Patent varicose vein prox/med calf 3.4mm with 1.2s reflux. Patent varicose vein dist/med thigh 5.4mm with 0.8s reflux. CONCLUSION: 1. Dilated, incompetent right small saphenous vein. 2. 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 3. Consultation for endovenous laser ablation is recommended. Dictated by: Julio Lobato M.D. on 05/01/2022 at 14:06 Approved by: Julio Lobato M.D. on 05/01/2022 at 14:28 Normal [facility] Coding Summary.on 03-11-2022 Coding Summary. Normal [facility] ED Traumaon 03-09-2022 ED Trauma [id number]#1. 00CD:127 Normal [facility] Consent for Procedure/Surger yon 03-08-2022 Consent for Procedure/Surgery [id number]#1. 00CD:127 Normal [facility] Consent for Treatmenton 02-18 Consent for Treatment [id number] 0CD:127 Normal [facility] Discharge Instructionson Discharge Instructions [id number]#1. 00CD:127 Normal [facility] ED Clinical Summaryon 2021 ED Clinical Summary Normal [facility] ED Note-Physicianon 03-08-20 ED Note-Physician Normal [facility] Comment on above: Result Comment: Elec tronically Signed By: Wm Nagy DO.br\Date and Time Signed: 03/08/22 21:11 EST ED Patient Education Noteon 03-08-2022 ED Patient Education Note Normal [facility] ED Patient Summaryon 022 ED Patient Summary Normal [facility] EMS Documentationon 03-08-20 EMS Documentation Normal [facility] EMS Documentation Normal [facility] Monitor Recordon 03-08-2022 Monitor Record [id number]#1. 00CD:127 Normal [facility] Monitor Record [id number]#1. 00CD:127 Normal [facility] Pre-Arrival Noteon Pre-Arrival Note Normal [facility] Respiratory Therapy Noteson 03-08-2022 Respiratory Therapy Notes conscious sedation on Eaton, Leelee. Used co2 monitor and one liter of 02. patient maintained 38 co2 and 99 O2. Last approx 40 min. Normal [facility] XR Hip 2-3 Views Left + Pelv yasir 03-08-2022 XR Hip 2-3 Views Left + Pelvis Normal [facility] XR Hip 2-3 Views Left + Pelvis Normal [facility] BLEEDING TIMEon 03-06-2022 BLEEDING TIME 10.5 min Critically high 1.0-8.[address] [facility] Comment on above: Performed By: #### B LTM #### [facility] [address] [place] [address] Dr. Salvador Yung CBC AUTO DIFFon 03-06-2022 BASO # 0.1 103/ul Normal 0.0-0.1 [facility] Comment on above: Performed By: #### C BC #### [facility] [address] [address] [address] Salvador Yung Basophils/100 WBC (Bld) 0.7 % Normal 0.2-2.0 [facility] Comment on above: Performed By: #### C BC #### [facility] [address] [address] [address] Salvador Yung EO # 0.1 103/ul Normal 0.0-0.7 [facility] Comment on above: Performed By: #### C BC #### [facility] [address] [address] [address] Salvador Yung Eosinophils/100 WBC (Bld) 0.7 % Critically low 0.9-7.0 [facility] Comment on above: Performed By: #### C BC #### [facility] [address] [place] [address] Dr. Salvador Yung Erythrocyte distribution width (RBC) [Ratio] 12.9 % Normal 11.0-15.0 [facility] Comment on above: Performed By: #### C BC #### [facility] [address] [place] [address] Dr. Salvador Yung Hematocrit (Bld) [Volume fraction] 41.3 % Normal 36.0-48.0 [facility] Comment on above: Performed By: #### C BC #### [facility] [address] [place] [address] Dr. Salvador Yung Hemoglobin (Bld) [Mass/Vol] 13.7 g/dL Normal 12.0-16.0 [facility] Comment on above: Performed By: #### C BC #### [facility] [address] [place] [address] Dr. Salvador Yung IG # 0.05 10e3/ul Critically high 0.00-0.03 [facility] Comment on above: Performed By: #### C BC #### [facility] [address] [place] [address] Dr. Salvador Yung IG % 0.7 % Critically high 0.0-0.5 [place] Comment on above: Performed By: #### C BC #### [facility] [address] [place] [address] Dr. Salvador Yung LYMPH # 1.4 103/ul Normal 1.2-3.8 [facility] Comment on above: Performed By: #### C BC #### [facility] [address] [place] [address] Dr. Salvador Yung Lymphocytes/100 WBC (Bld) 18.9 % Critically low 20.5-60.0 [facility] Comment on above: Performed By: #### C BC #### [facility] [address] [place] [address] Dr. Salvador Yung MANUAL DIFF REQ NO Normal [place] Comment on above: Performed By: #### C BC #### [facility] [address] [place] [address] Dr. Salvador Yung MCH (RBC) [Entitic mass] 30.3 pg Normal 26.7-34.0 [facility] Comment on above: Performed By: #### C BC #### [facility] [address] [place] [address] Dr. Salvador Yung MCHC (RBC) [Mass/Vol] 33.2 g/dL Normal 29.9-35.2 [facility] Comment on above: Performed By: #### C BC #### [facility] [address] [place] [address] Dr. Salvador Yung MCV (RBC) [Entitic vol] 91.4 fL Normal 81.0-99.0 [facility] Comment on above: Performed By: #### C BC #### [facility] [address] [place] [address] Dr. Salvador Yung MONO # 0.7 103/ul Normal 0.3-0.8 [facility] Comment on above: Performed By: #### C BC #### [facility] [address] [place] [address] Dr. Salvador Yung Monocytes/100 WBC (Bld) 9.9 % Normal 1.7-12.0 [facility] Comment on above: Performed By: #### C BC #### [facility] [address] [address] [address] Salvador Yung NEUT # 5.2 103/ul Normal 1.4-6.5 [facility] Comment on above: Performed By: #### C BC #### [facility] [address] [address] [address] Salvador Yung Neutrophils/100 WBC (Bld) 69.1 % Normal 43.0-75.0 [facility] Comment on above: Performed By: #### C BC #### [facility] [address] [place] [address] Dr. Salvador Yung Platelet mean volume (Bld) [Entitic vol] 7.9 fL Critically low 9.5-13.5 [facility] Comment on above: Performed By: #### C BC #### [facility] [address] [place] [address] Dr. Salvador Yung PLT 223 103/ul Normal 150-450 [facility] Comment on above: Performed By: #### C BC #### [facility] [address] [place] [address] Dr. Salvador Yung RBC 4.52 106/ul Normal 4.20-5.40 [facility] Comment on above: Performed By: #### C BC #### [facility] [address] [place] [address] Dr. Salvador Yung WBC 7.5 103/ul Normal 4.0-11.0 [facility] Comment on above: Performed By: #### C BC #### [facility] [address] [place] [address] Dr. Salvador Yung IRONon 03-06-2022 Iron [Mass/Vol] 83.0 ug/dL Normal 50.0-170.0 [facility] Comment on above: Performed By: #### I ESTEFANY #### [facility] [address] [place] [address] Dr. Salvador Yung PROTIMEon 03-06-2022 INR Coag (PPP) [Relative time] 0.95 {INR} Normal [facility] Comment on above: Performed By: #### P TT, PT #### [facility] [address] [address] [address] Salvador Yung INR GUIDELINES SEE BELOW Normal [facility] Comment on above: Result Comment: YOJANA RED INR: 2.0 - 3.0 CONDITIONS NOT LISTED BELOW 2.5 - 3.5 FOR PROSTHETIC HEART VALVE REPLACEMENT 2.5 - 3.5 RECURRENT THROMBOSIS Performed By: #### P TT, PT #### [facility] [address] [address] [address] Salvador Yung PT Coag (PPP) [Time] 10.3 s Normal 9.0-11.6 [facility] Comment on above: Performed By: #### P TT, PT #### [facility] [address] [address] [address] Salvador Yung PTTon 03-06-2022 aPTT Coag (Bld) [Time] 22.1 s Critically low 22.3-36.2 [facility] Comment on above: Performed By: #### P TT, PT #### [facility] [address] [address] [address] Salvador Yung SCREENING MAMMOGRAM W/DANIEL, BILATERAL*on [...] IS VERY IMPORTANT TO YOUR HEALTH. CURRENT EQUATORIAL GUINEAN [employer]LEGE OF [employer]IOLOGY AND NATIONAL COMPREHENSIVE [employer]WORK GUIDELINES RECOMMENDS ANNUAL MAMMOGRAPHY BEGINNING AT AGE 41. THIS FACILITY USUALLY USES A REMINDER SYSTEM TO ENSURE ALL POSITIONS RECEIVED REMINDER NOTIFICATIONS AT THE TIME BASED ON THE RECOMMENDATIONS OF THIS EXAM. Report reported and signed by Julio Martines on 02/28/2022 1602 Normal [facility] Specialist Covid-19 PCR (CVDTBH)on 12-19 SARS-CoV-2 (COVID-19) RNA VIVIANA+probe Ql (Unsp spec) Not detected Normal NOT DETECTED [facility] Comment on above: Result Comment: This test is not yet approved or cleared by the [place] FDA. When there are no FDA-approved or cleared tests available, and other criteria are met, FDA can make tests available under an emergency access mechanism called an Emergency Use Authorization (EUA). The EUA for this test is supported by the [place] of Health and Human Service's (HHS's) declaration [...] SARS-CoV-2. Performed By: #### P OCGLUC #### [facility] [address] [place] [address] Dr. Salvador Yung MRI [facility] CONon 12-10- 22 MRI [facility] CON HISTORY: Chronic low back pain with left leg pain. Prior low back surgery. Lumbar disc disease. MRI [facility] CON: 12/09/2021 10:11 AM [...] SARA LAUREN Date: 2021-12-10 12:11 Normal [facility] COVID-19 Positive/Negativeon 05-04-2020 COVID-19 Positive/Negative Negative Negative [facility] Comment on above: Testing for SARS-CoV -2 by RT-PCRThis test was developed and its performance characteristics determined by [employer] and validated at the [facility]. This test has not been [...] Otheron 05-04-2020 Coronavirus 2019 PCR Interp N/A [facility] Automated basophil %on 04-24 Basophils/100 WBC (Bld) 0.6 % [facility] Automated basophil counton 0 04-24-2020 Basophils (Bld) [#/Vol] 0.0 10*3/uL 0.0-0.2 [facility] Automated blood lymphocyte c ount (number/volume)on 04-24-2020 Lymphocytes (Bld) [#/Vol] 1.0 10*3/uL 1.00-4.8 [facility] Automated blood lymphocyte c ount as percentage of total leukocyteson 04-24-2020 Lymphocytes/100 WBC (Bld) 17.0 % [facility] Automated blood monocyte cou nton 04-24-2020 Monocytes (Bld) [#/Vol] 0.3 10*3/uL 0.0-0.8 [facility] Automated blood platelet cou nt (count/volume)on 04-24-2020 Platelets (Bld) [#/Vol] 224 10*3/uL 150-450 [facility] Automated blood platelet vikki n volume measurementon 04-24-2020 Platelet mean volume (Bld) [Entitic vol] 7.2 fL 6.3-10.7 [facility] Automated eosinophil %on Eosinophils/100 WBC (Bld) 3.5 % [facility] Automated eosinophil counton 04-24-2020 Eosinophils (Bld) [#/Vol] 0.2 10*3/uL 0.0-0.45 [facility] Automated erythrocyte distri bution width ratioon 04-24-2020 Erythrocyte distribution width (RBC) [Ratio] 13.0 % 11.9-15.3 [facility] Automated erythrocyte mean c orpuscular hemoglobin (mass per erythrocyte)on 04-24-2020 MCH (RBC) [Entitic mass] 27.7 pg 24.7-34.3 [facility] Automated erythrocyte mean c orpuscular hemoglobin concentration measurement (mass/volon 04-24-2020 MCHC (RBC) [Mass/Vol] 33.2 g/dL 32.0-35.0 [facility] Automated erythrocyte mean c orpuscular volumeon 04-24-2020 MCV (RBC) [Entitic vol] 83.3 fL 80-100 [facility] Automated erythrocytes count in urine sediment (number/area)on 04-24-2020 RBC Auto (Urine sed) [#/Area] None seen [HPF] [facility] Automated leukocytes count i n urine sediment (number/area)on 04-24-2020 WBC Auto (Urine sed) [#/Area] 0-1 [HPF] [facility] Automated monocyte %on 04-24 Monocytes/100 WBC (Bld) 6.1 % [facility] Automated neutrophil %on Neutrophils/100 WBC (Bld) 72.8 % [facility] Automated urine color determ inationon 04-24-2020 Color (U) Yellow Yellow [facility] [facility] Blood erythrocytes automated count (number/volume)on 04-24-2020 RBC (Bld) [#/Vol] 4.50 10*6/uL 3.60-5.00 [facility] Blood hemoglobin measurement (mass/volume)on 04-24-2020 Hemoglobin (Bld) [Mass/Vol] 12.5 g/dL 11.8-15.4 [facility] Blood leukocytes automated c ount (number/volume)on 04-24-2020 WBC (Bld) [#/Vol] 5.7 10*3/uL 3.8-11.6 [facility] Blood neutrophil count by au tomated method (number/volume)on 04-24-2020 Neutrophils (Bld) [#/Vol] 4.2 10*3/uL 1.8-7.7 [facility] Estimated glomerular filtrat ion rate (GFR) non- Americanon 04-24-2020 GFR/1.73 sq M predicted among non-blacks MDRD (S/P/Bld) [Vol rate/Area] mL/min/{1.73_m2} [facility] Hematocrit [Volume Fraction] of Blood by Automated counton 04-24-2020 Hematocrit (Bld) [Volume fraction] 37.5 % 34.0-46.4 [facility] Otheron 04-24-2020 GFR/1.73 sq M.predicted MDRD (S/P/Bld) [Vol rate/Area] mL/min/{1.73_m2} [facility] Comment on above: GFR estimated refere nce range: According to KDOQI guidelines, <60 ml/min/1.73m2 is sufficient to diagnose a patient with chronic kidney disease. Nucleated RBC/100 WBC (Bld) [Ratio] 0.1 % 0-0.5 [facility] Creatinine Clearance (Chem N/A [facility] Serum or plasma calcium kelly urement (mass/volume)on 04-24-2020 Calcium [Mass/Vol] 9.3 mg/dL 8.2-10.2 [facility] Serum or plasma chloride vikki surement (moles/volume)on 04-24-2020 Chloride [Moles/Vol] 101 mmol/L 95-[address] [facility] Serum or plasma creatinine m easurement with calculation of estimated glomerular filtron 04-24-2020 Creatinine [Mass/Vol] 0.88 mg/dL 0.44-1.03 [facility] Serum or plasma glucose kelly urement (mass/volume)on 04-24-2020 Glucose [Mass/Vol] 116 mg/dL 70-100 [facility] Comment on above: ADA recommended refe rence rangeRandom Glucose Reference Range is dependent on time and content of last meal. Glucose of more than 200 mg/dL in a nonstressed, ambulatory subject supports the diagnosis of Diabetes Mellitus. Serum or plasma potassium me asurement (moles/volume)on 04-24-2020 Potassium [Moles/Vol] 3.8 mmol/L 3.5-5.1 [facility] Serum or plasma sodium measu rement (moles/volume)on 04-24-2020 Sodium [Moles/Vol] 136 mmol/L 136-146 [facility] Serum or plasma total carbon dioxide measurement (moles/volume)on 04-24-2020 CO2 [Moles/Vol] 23.1 mmol/L 22.0-30.0 [facility] Serum or plasma urea nitroge n measurement (mass/volume)on 04-24-2020 Urea nitrogen [Mass/Vol] 10 mg/dL 9-23 [facility] Specific gravity of Urine by Automated test stripon 04-24-2020 Specific gravity (U) [Rel density] 1.007 1.001-1.030 [facility] Squamous epithelial cells de tection in urine sediment by light microscopyon 04-24-2020 Epithelial cells.squamous LM Ql (Urine sed) None seen [HPF] [facility] Urinalysison 04-24-2020 Hyaline casts LM Ql (Urine sed) None seen [LPF] [facility] Urine bacteria detection by automated methodon 04-24-2020 Bacteria Auto Ql (U) None seen None Seen [facility] Urine clarity by refractomet ry automatedon 04-24-2020 Clarity Refractometry automated (U) Clear Clear [facility] Urine glucose measurement by automated test strip (mass/volume)on 04-24-2020 Glucose Auto test strip (U) [Mass/Vol] Normal mg/dL Normal [facility] Urine hemoglobin detection b y automated test stripon 04-24-2020 Hemoglobin Auto test strip Ql (U) Negative Negative [facility] Urine ketones measurement by automated test strip (mass/volume)on 04-24-2020 Ketones (U) [Mass/Vol] Negative Negative [facility] Urine leukocyte esterase det ection by automated test stripon 04-24-2020 Leukocyte esterase Auto test strip Ql (U) 1+ Negative [facility] Urine nitrite detection by t est stripon 04-24-2020 Nitrite Ql (U) Negative Negative [facility] Urine pH measurement by auto mated test stripon 04-24-2020 pH (U) 5.5 [pH] 5.0-9.0 [facility] Urine protein measurement by automated test strip (mass/volume)on 04-24-2020 Protein (U) [Mass/Vol] Negative Negative [facility] Urine total bilirubin detect ion by test stripon 04-24-2020 Bilirubin Ql (U) Negative Negative [facility] Urine urobilinogen measureme nt by automated test strip (mass/volume)on 04-24-2020 Urobilinogen (U) [Mass/Vol] Normal mg/dL Normal [facility] CT L-SPINE WO CONTRASTon CT L-SPINE WO CONTRAST Patient Name: LEELEE CEDILLO STUDY: CT L-SPINE WO CONTRAST;; 10/13/2018 12:05 pm INDICATION: Low back pain LUMBAGO. COMPARISON: None. ACCESSION NUMBER(S): [id number] ORDERING CLINICIAN: HAMLET GILMAN TECHNIQUE: Axial sections [...] combination with facet joint arthropathy noted causing [id number] left neural foramina narrowing. Transpedicular screws of [...] left lateral recess, left neural foramina and [id number] right neural foramina narrowing. IMPRESSION: Postoperative and [...] Electronically signed by: PATRICIA MURRAY MD Normal [facility] SPINE, ENTIRE THORACIC/LUMBA R, INCLUDE SKULL, [...] pm INDICATION: LUMBAGO. COMPARISON: None ACCESSION NUMBER(S): [id number]; [id number] ORDERING CLINICIAN: HAMLET GILMAN FINDINGS: Long radiograph [...] Electronically signed by: ADELE BA MD Normal [facility] SPINE, LUMBOSACRAL; CMPLT(BE NDING)on 10-13-2018 SPINE, LUMBOSACRAL; CMPLT(BENDING) Patient Name: LEELEE CEDILLO STUDY: SPINE, ENTIRE THORACIC/LUMBAR, INCLUDE SKULL, CERVICAL ANSD SACRAL SPINE WHEN PERFORMED 2 OR 3 VIEW; SPINE, LUMBOSACRAL CMPLT(BENDING); 10/13/2018 12:05 pm INDICATION: LUMBAGO. COMPARISON: None ACCESSION NUMBER(S): [id number]; [id number] ORDERING CLINICIAN: HAMLET GILMAN FINDINGS: Long radiograph [...] acuity. Electronically signed by: ADELE BA MD [facility] Vital Signs Date Time Vital Sign Value Performing Clinician Facility 08-07-2023 11:44-0400 Diastolic blood pressure 86 mm[Hg] MD Sara Vick Work Phone: [facility] 08-07-2023 11:44-0400 Heart rate 67 /min MD Sara Vick Work Phone: [facility] 08-07-2023 11:44-0400 SaO2% (BldA) [Mass fraction] 99 % MD Sara Vick Work Phone: [facility] 08-07-2023 11:44-0400 Systolic blood pressure 132 mm[Hg] MD Sara Vick Work Phone: [facility] 07-01-2023 10:26-0400 Body height 172.72 cm MD Sara Vick Work Phone: [facility] 07-01-2023 10:26-0400 Body mass index (BMI) [Ratio] 29.5 kg/m2 MD Sara Vick Work Phone: [facility] 07-01-2023 [id number] Body temperature 97.2 [degF] MD Sara Vick Work Phone: [facility] 07-01-2023 10:26-040 Body weight 87.99 kg MD Sara Vick Work Phone: [facility] 07-01-2023 10:26-0400 Diastolic blood pressure 78 mm[Hg] MD Sara Vick Work Phone: [facility] 07-01-2023 10:26-0400 Heart rate 78 /min MD Sara Vick Work Phone: [facility] 07-01-2023 10:26-0400 SaO2% (BldA) [Mass fraction] 98 % MD Sara Vick Work Phone: [facility] 07-01-2023 10:26-0400 Systolic blood pressure 120 mm[Hg] MD Sara Vick Work Phone: [facility] 06-30-2023 14:39-0400 Diastolic blood pressure 70 mm[Hg] MD Sara Vick Work Phone: [facility] 06-30-2023 14:39-0400 Heart rate 75 /min MD Sara Vick Work Phone: [facility] 06-30-2023 14:39-0400 SaO2% (BldA) [Mass fraction] 99 % MD Sara Vick Work Phone: [facility] 06-30-2023 14:39-0400 Systolic blood pressure 110 mm[Hg] MD Sara Vick Work Phone: [facility] 06-24-2023 13:13-0500 Body height 172.7 cm Ghanshyam Lombardi MD Work Phone: [facility] 06-24-2023 13:13-0500 Body weight 87.4 kg Ghanshyam Lombardi MD Work Phone: [facility] 06-24-2023 13:13-0500 Diastolic blood pressure 56 mm[Hg] Ghanshyam Lombardi MD Work Phone: [facility] 06-24-2023 13:13-0500 Heart rate 93 /min Ghanshyam Lombardi MD Work Phone: [facility] 06-24-2023 13:13-0500 Respiratory rate 18 /min Ghanshyam Lombardi MD Work Phone: [facility] 06-24-2023 13:13-0500 SaO2% (BldA) [Mass fraction] 97 % Ghanshyam Lombardi MD Work Phone: [facility] 06-24-2023 13:13-0500 Systolic blood pressure 115 mm[Hg] Ghanshyam Lombardi MD Work Phone: [facility] 05-15-2023 09:00-0500 Body weight 90.18 kg Larry Brown Other [facility] [employer] Other 05-15-2023 09:00-0500 Body weight 90.17 kg MD Sara Vick Work Phone: [facility] 05-15-2023 09:00-0500 Diastolic blood pressure 86 mm[Hg] Larry Brown Other [facility] 05-15-2023 09:00-0500 SaO2% (BldA) [Mass fraction] 99 % Larryrandy Brown Other [facility] [employer] Other 05-15-2023 09:00-0500 Systolic blood pressure 148 mm[Hg] Larry Brown Other [facility] 05-13-2023 11:15-0500 Body height 175.26 cm Kiran Kessler Other [facility] 05-13-2023 11:15-0500 Body mass index (BMI) [Ratio] 29.24 kg/m2 Kiran Kessler Other [facility] [employer] Other 05-13-2023 11:15-0500 Body temperature 96.9 [degF] Kiran Kessler Other [facility] [employer] Other 05-13-2023 11:15-0500 Body weight 89.81 kg Kiran Kessler Other [facility] 05-13-2023 11:15-0500 Diastolic blood pressure 80 mm[Hg] Kiran Kessler Other [facility] 05-13-2023 11:15-0500 SaO2% (BldA) [Mass fraction] 99 % Kiran Kessler Other [facility] [employer] Other 05-13-2023 11:15-0500 Systolic blood pressure 140 mm[Hg] Kiran Kessler Other [facility] 04-03-2023 10:15-0500 Body height 175.26 cm Larry Stephanie Other [facility] [employer] Other 04-03-2023 10:15-0500 Diastolic blood pressure 74 mm[Hg] Larryrandy Brown Other [facility] [employer] Other 04-03-2023 10:15-0500 SaO2% (BldA) [Mass fraction] 99 % Larry Stephanie Other [facility] [employer] Other 04-03-2023 10:15-0500 Systolic blood pressure 118 mm[Hg] Larryrandy Brown Other [facility] [employer] Other 03-25-2023 11:05-0500 Diastolic blood pressure 75 mm[Hg] MD Sara Vick Work Phone: [facility] 03-25-2023 11:05-0500 Heart rate 72 /min MD Sara Vick Work Phone: [facility] 03-25-2023 11:05-0500 Respiratory rate 18 /min MD Sara Vick Work Phone: [facility] 03-25-2023 11:05-0500 SaO2% (BldA) [Mass fraction] 97 % MD Sara Vick Work Phone: [facility] 03-25-2023 11:05-0500 Systolic blood pressure 146 mm[Hg] MD Sara Vick Work Phone: [facility] 03-25-2023 10:27-0500 Inhaled oxygen flow rate 3 L/min MD Sara Vick Work Phone: [facility] 03-25-2023 10:14-0500 Body height 173.99 cm MD Sara Vick Work Phone: [facility] 03-25-2023 10:14-0500 Body weight 88.45 kg MD Sara Vick Work Phone: [facility] 01-27-2023 14:30-0400 Body height 175.26 cm Dominique Shane Other [facility] Other 01-27-2023 14:30-0400 Diastolic blood pressure 70 mm[Hg] Dominique Shane Other [facility] Other 01-27-2023 14:30-0400 SaO2% (BldA) [Mass fraction] 98 % Dominique Shane Other [facility] Other 01-27-2023 14:30-0400 Systolic blood pressure 118 mm[Hg] Dominique Shane Other [facility] Other 01-09-2023 10:15-0400 Body height 175.26 cm Larry Brown Other [facility] Other 01-09-2023 10:15-0400 Body mass index (BMI) [Ratio] 29.56 kg/m2 Larry Brown Other [facility] Other 01-09-2023 10:15-0400 Body weight 90.81 kg Larry Brown Other [facility] Other 01-09-2023 10:15-0400 Diastolic blood pressure 78 mm[Hg] Larry Brown Other [facility] Other 01-09-2023 10:15-0400 SaO2% (BldA) [Mass fraction] 98 % Larry Brown Other [facility] Other 01-09-2023 10:15-0400 Systolic blood pressure 130 mm[Hg] Larry Brown Other [facility] Other 12-12-2022 09:30-0400 Body height 175.26 cm Larry Brown Other [facility] Other 12-12-2022 09:30-0400 Body mass index (BMI) [Ratio] 29.77 kg/m2 Larry Brown Other [facility] Other 12-12-2022 09:30-0400 Body weight 91.45 kg Larry Brown Other [facility] Other 12-12-2022 09:30-0400 Diastolic blood pressure 74 mm[Hg] Larry Brown Other [facility] Other 12-12-2022 09:30-0400 SaO2% (BldA) [Mass fraction] 99 % Larry Brown Other [facility] Other 12-12-2022 09:30-0400 Systolic blood pressure 122 mm[Hg] Larry Brown Other [facility] Other 09-19-2022 12:00-0400 Body height 175.26 cm Larry Brown Other [facility] Other 09-19-2022 12:00-0400 Body mass index (BMI) [Ratio] 30.8 kg/m2 Larry Brown Other [facility] Other 09-19-2022 12:00-0400 Body weight 94.62 kg aLrry Brown Other [facility] Other 09-19-2022 12:00-0400 SaO2% (BldA) [Mass fraction] 95 % Larry Brown Other [facility] Other 09-18-2022 10:40-0400 Body height 172.7 cm Perfecto Burch MD Work Phone: [facility] [employer] [facility] 09-18-2022 10:40-0400 Body mass index (BMI) [Ratio] 31.26 kg/m2 Perfecto Burch MD Work Phone: [facility] [employer] [facility] 09-18-2022 10:40-0400 Body temperature 96.4 [degF] Perfecto Burch MD Work Phone: [facility] [employer] [facility] 09-18-2022 10:40-0400 Body weight 93.26 kg Perfecto Burch MD Work Phone: [facility] 07-27-2022 15:38-0400 Hourly Rounding [facility] 07-27-2022 15:38-0400 Promise to Return [facility] 07-27-2022 14:38-0400 Hourly Rounding [facility] 07-27-2022 14:38-0400 Promise to Return [facility] 07-27-2022 13:38-0400 Hourly Rounding [facility] 07-27-2022 13:38-0400 Promise to Return [facility] 07-27-2022 12:08-0400 Heart rate 106 /min [facility] 07-27-2022 12:08-0400 SaO2% (BldA) [Mass fraction] 100 % [facility] 07-27-2022 12:07-0400 Diastolic blood pressure 79 mm[Hg] [facility] 07-27-2022 12:07-0400 Mean blood pressure 103 mm[Hg] [facility] 07-27-2022 12:07-0400 Systolic blood pressure 151 mm[Hg] [facility] 07-27-2022 12:06-0400 Body temperature 97.16 [degF] [facility] 07-27-2022 07:46-0400 Heart rate 82 /min [facility] 07-27-2022 07:46-0400 SaO2% (BldA) [Mass fraction] 97 % [facility] 07-27-2022 07:46-0400 Diastolic blood pressure 81 mm[Hg] [facility] 07-27-2022 07:46-0400 Mean blood pressure 116 mm[Hg] [facility] 07-27-2022 07:46-0400 Systolic blood pressure 186 mm[Hg] [facility] 07-27-2022 07:45-0400 Body temperature 97.52 [degF] [facility] 07-27-2022 01:46-0400 Heart rate 89 /min [facility] 07-27-2022 01:46-0400 SaO2% (BldA) [Mass fraction] 96 % [facility] 07-27-2022 01:45-0400 Diastolic blood pressure 67 mm[Hg] [facility] 07-27-2022 01:45-0400 Mean blood pressure 89 mm[Hg] [facility] 07-27-2022 01:45-0400 Systolic blood pressure 134 mm[Hg] [facility] 07-27-2022 01:45-0400 Body temperature 98.06 [degF] [facility] 07-27-2022 01:45-0400 Blood Pressure Location [facility] 07-27-2022 01:45-0400 Respiratory rate 18 /min [facility] 07-26-2022 20:00-0400 Respiratory rate 16 /min [facility] 07-26-2022 17:20-0400 Blood Pressure Location [facility] 07-26-2022 17:20-0400 Heart rate 78 /min [facility] 07-26-2022 15:30-0400 Respiratory rate 12 /min [facility] 07-26-2022 15:00-0400 Mean blood pressure 122 mm[Hg] [facility] 07-26-2022 15:00-0400 Respiratory rate 8 /min [facility] 07-26-2022 14:30-0400 Mean blood pressure 112 mm[Hg] [facility] 07-26-2022 14:30-0400 Respiratory rate 12 /min [facility] 07-26-2022 13:30-0400 Mean blood pressure 95 mm[Hg] [facility] 07-26-2022 11:35-0400 gluc 105 mg/dL [facility] 07-26-2022 11:35-0400 gluc [facility] 07-26-2022 11:35-0400 Heart rate 72 /min [facility] 07-26-2022 11:35-0400 Respiratory rate 18 /min [facility] 05-02-2022 10:00-0500 Body height 175.26 cm Larry Stephanie Other [employer] [facility] [employer] Other 05-02-2022 10:00-0500 Body mass index (BMI) [Ratio] 31.89 kg/m2 Larry Brown Other [facility] Other 05-02-2022 10:00-0500 Body weight 97.98 kg Larry Brown Other [facility] Other 05-02-2022 10:00-0500 Diastolic blood pressure 80 mm[Hg] Larry Brown Other [facility] [employer] Other 05-02-2022 10:00-0500 Systolic blood pressure 134 mm[Hg] Larry Brown Other [facility] [employer] Other 03-08-2022 17:00-0500 Diastolic blood pressure 117 mm[Hg] [facility] 03-08-2022 17:00-0500 Mean blood pressure 131 mm[Hg] [facility] 03-08-2022 17:00-0500 SaO2% (BldA) [Mass fraction] 95 % [facility] 03-08-2022 17:00-0500 Systolic blood pressure 160 mm[Hg] [facility] 03-08-2022 16:30-0500 Diastolic blood pressure 85 mm[Hg] [facility] 03-08-2022 16:30-0500 Heart rate 75 /min [facility] 03-08-2022 16:30-0500 Mean blood pressure 94 mm[Hg] [facility] 03-08-2022 16:30-0500 Respiratory rate 15 /min [facility] 03-08-2022 16:30-0500 SaO2% (BldA) [Mass fraction] 98 % [facility] 03-08-2022 16:30-0500 Systolic blood pressure 112 mm[Hg] [facility] 03-08-2022 16:10-0500 Diastolic blood pressure 74 mm[Hg] [facility] 03-08-2022 16:10-0500 Heart rate 93 /min [facility] 03-08-2022 16:10-0500 Mean blood pressure 90 mm[Hg] [facility] 03-08-2022 16:10-0500 Respiratory rate 14 /min [facility] 03-08-2022 16:10-0500 SaO2% (BldA) [Mass fraction] 98 % [facility] 03-08-2022 16:10-0500 Systolic blood pressure 122 mm[Hg] [facility] 03-08-2022 15:15-0500 Respiratory rate 18 /min [facility] 03-08-2022 15:00-0500 Hourly Rounding [facility] 03-08-2022 15:00-0500 Promise to Return [facility] 03-08-2022 14:45-0500 Respiratory rate 20 /min [facility] 03-08-2022 14:15-0500 Respiratory rate 20 /min [facility] 03-08-2022 14:14-0500 Hourly Rounding [facility] 03-08-2022 14:14-0500 Promise to Return [facility] 03-08-2022 13:54-0500 Heart rate 99 /min Wm Nag[facility] 03-08-2022 13:37-0500 Body temperature 97.7 [degF] Wm [facility] 03-08-2022 13:37-0500 Heart rate 104 /min Wm Nag[facility] 03-08-2022 13:00-0500 Hourly Rounding Wm Nag[facility] 03-08-2022 13:00-0500 Promise to Return Wm Nag[facility] 03-07-2022 11:00-0500 Body height 175.26 cm Larry Carrilloky Other [facility] Other 03-07-2022 11:00-0500 Body mass index (BMI) [Ratio] 32.54 kg/m2 Larry Stephanie Other [facility] Other 03-07-2022 11:00-0500 Body weight 99.97 kg Larry Carrilloky Other [facility] Other 03-07-2022 11:00-0500 SaO2% (BldA) [Mass fraction] 99 % Larryrandy Brown Other [facility] Other 06-20-2017 09:19-0500 PAIN LEVEL 0 {score} [...] Start: 10-30-2023 End: 10-30-2023 ambulatory SARA VICK Facility:[facility] Start: 08-08-2023 End: 08-08-2023 ambulatory GHANSHYAM LOMBARDI Facility:[facility] Start: 08-08-2023 End: 08-08-2023 Subsequent hospital visit by physician Mri 6 Radio Main Q (I-Stat/1.5t/3t) Work Phone: MRI Q Comment on above: 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, 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] Start: 08-07-2023 End: 08-07-2023 ambulatory MD Sara Vick Work Phone: [facility] Work Phone: Start: 08-07-2023 End: 08-07-2023 Patient encounter procedure MD Sara Vick Work Phone: [facility] Work Phone: Start: 08-05-2023 End: 08-06-2023 ambulatory ANNIE J PRINTY Not Available Start: 07-15-2023 End: 07-15-2023 ambulatory ANNIE PRINTY Not Available Start: 07-13-2023 End: 07-13-2023 ambulatory GHANSHYAMEVELINE LOMBARDI Facility:[facility] Start: 07-13-2023 End: 07-13-2023 Subsequent hospital visit by physician [facility] Work Phone: Radiology Comment on above: [...] procedure Ghanshyam Lombardi MD Work Phone: [facility] Comment on above: 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); Chronic bilateral low back pain with bilateral sciatica Start: 06-24-2023 End: 06-24-2023 ambulatory GHANSHYAM LOMBARDI Facility:[facility] Start: 06-24-2023 End: 06-24-2023 Subsequent hospital visit by physician Xr [facility] Qb1 Radiology Comment on above: 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] Start: 05-22-2023 End: 05-22-2023 ambulatory Sara Vick Facility:[facility] Start: 05-22-2023 End: 05-22-2023 ambulatory MD Sara Vick Work Phone: [facility] Work Phone: Start: 05-22-2023 End: 05-22-2023 Patient encounter procedure MD Sara Vick Work Phone: [facility]Ultras[facility] [place] Work Phone: Start: 05-20-2023 End: 05-20-2023 ambulatory Sara Vick Facility:[facility] Start: 05-20-2023 End: 05-20-2023 Discharged Recurring MD Sara Vick Work Phone: [facility] [address] Start: 05-20-2023 Registered Recurring MD Gideon Vick Work Phone: [facility] [address] Start: 05-18-2023 Patient encounter procedure MD Sara Vick Work Phone: [facility]- Start: 05-15-2023 End: 05-15-2023 ambulatory Larry Brown Other [facility] Other Start: 05-15-2023 Office outpatient vi sit 25 minutes Larry Brown [facility] Start: 05-15-2023 End: 05-15-2023 Patient encounter procedure MD Sara Vick Work Phone: [facility]- Start: 05-13-2023 End: 05-13-2023 ambulatory Kiran Kessler Other [facility] Other Start: 05-13-2023 Office outpatient ne w 60 minutes Kiran Kessler [facility] Start: 05-13-2023 End: 05-13-2023 Patient encounter procedure MD Sara Vick Work Phone: [facility]- Start: 04-16-2023 End: 04-16-2023 ambulatory Dominique Shane Other [facility] Other Start: 04-16-2023 Telephone encounter Dominique Shane [facility] [facility] Start: 04-03-2023 End: 04-03-2023 ambulatory Larry Brown Other [facility] Other Start: 04-03-2023 Office outpatient vi sit 15 minutes Larry Brown [facility] Start: 04-03-2023 End: 04-03-2023 Patient encounter procedure MD Sara Vick Work Phone: [facility] Work Phone: Start: 03-25-2023 (PROC) PROCEDURE Larry Brown [facility] Start: 03-25-2023 End: 03-25-2023 ambulatory Sara Vick Facility:[facility] Start: 03-25-2023 End: 03-25-2023 Admission to same day surgery center MD Sara Vick Work Phone: [facility] Work Phone: Start: 03-25-2023 End: 03-25-2023 ambulatory MD Sara Vick Work Phone: [facility] Work Phone: Start: 03-06-2023 End: 03-06-2023 Patient encounter procedure MD Sara Vick Work Phone: [facility] Work Phone: Start: 02-10-2023 End: 02-10-2023 ambulatory Dominique Shane Other [facility] Other Start: 02-10-2023 Telephone encounter Dominique Shane [facility] Start: 01-27-2023 End: 01-27-2023 ambulatory Dominique Shane Other [facility] Other Start: 01-27-2023 Office outpatient vi sit 25 minutes Dominique Shane [facility] Start: 01-27-2023 Telephone encounter Larry Stephanie [facility] Start: 01-09-2023 End: 01-09-2023 ambulatory Larry Stephanie Other [facility] Other Start: 01-09-2023 Office outpatient vi sit 25 minutes Larry Stephanie [facility] Start: 12-12-2022 End: 12-12-2022 ambulatory Larry Stephanie Other [facility] Other Start: 12-12-2022 Office outpatient vi sit 25 minutes Larry Stephanie [facility] Start: 11-22-2022 End: 11-22-2022 Emergency department [facility] Start: 09-19-2022 End: 09-19-2022 ambulatory Larry Stephanie Other [facility] Other Start: 09-19-2022 Office outpatient vi sit 25 minutes Larry Stephanie [facility] Start: 09-18-2022 ambulatory PERFECTO BURCH [facility] Start: 09-18-2022 End: 09-18-2022 Office outpatient new 30 minutes Perfecto Burch MD Work Phone: [facility] Comment on above: 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, sequela (Primary Dx) Start: 09-18-2022 End: 09-18-2022 Subsequent hospital visit by physician Perfecto Burch MD Work Phone: [facility] Start: 09-17-2022 ambulatory ADELE FLEMING Faci lity:[facility] Start: 09-10-2022 End: 09-10-2022 ambulatory Sara Vick Facility:[facility] Start: 09-09-2022 End: 09-10-2022 ambulatory ADELE FLEMING Facility:[facility] Start: 09-08-2022 End: 09-09-2022 ambulatory Alley Naranjo Facility:[facility] Start: 08-18-2022 End: 08-19-2022 ambulatory ADELE FLEMING Facility:[facility] Start: 08-13-2022 ambulatory PERFECTO BURCH [facility] Start: 08-12-2022 End: 08-13-2022 ambulatory ADELE FLEMING Facility:[facility] Start: 08-08-2022 End: 08-09-[address] ALFRED UMAÑA Facility:[facility] Start: 08-01-2022 End: 08-02-2022 ambulatory ADELE FLEMING Facility:[facility] Start: 07-26-2022 End: 07-27-2022 ambulatory Julio Ferrara Facility:[facility] Start: 07-26-2022 End: 07-27-2022 Observation Franciscoalberto Alcazar [facility] Start: 07-25-2022 Encounter for preprocedural cardiovascular examination ADELE FLEMING [facility] Start: 07-25-2022 Encounter for preprocedural laboratory examination ADELE FLEMING [facility] Start: 07-24-2022 End: 07-25-2022 ambulatory ADELE [...] 06-19-2022 ambulatory MD Sara Vick Work Phone: [facility] Work Phone: Start: 06-19-2022 End: 06-19-2022 Discharged Recurring MD Sara Vick Work Phone: [facility] Work Phone: Start: 06-13-2022 End: 06-14-2022 ambulatory [...] 05-02-2022 End: 05-02-2022 ambulatory Larry Brown Other [facility] Other Start: 05-02-2022 Office outpatient vi sit 25 minutes Larry Brown [facility] Start: 05-01-2022 End: 05-02-2022 ambulatory ADELE FLEMING Facility:[facility] Start: 04-22-2022 End: 04-23-2022 ambulatory ADELE FLEMING Facility:[facility] Start: 04-14-2022 End: 04-15-2022 ambulatory DEEPALI JANSEN Facility:[facility] Start: 04-08-2022 (PROC) PROCEDURE Larry Beck [facility] Start: 04-08-2022 End: 04-08-2022 ambulatory Larry Brown Other [facility] Other Start: 03-31-2022 End: 04-01-[address] ALFRED UMAÑA Facility:[facility] Start: 03-08-2022 End: 03-08-2022 Emergency department patient visit Wm Nagy Facility:[facility] Start: 03-08-2022 End: 03-08-2022 Emergency department patient visit Wm Nagy [facility] Start: 03-07-2022 End: 03-07-2022 ambulatory Larry Brown Other [facility] Other Start: 03-07-2022 Office consultation new/estab patient 60 min Larry Brown [facility] Start: 03-06-2022 End: 03-07-[address] SARA VICK . Facility:[facility] Start: 01-03-2022 End: 01-03-[address] SARA VICK . Facility:[facility] Start: 12-09-2021 End: 12-10-2021 ambulatory SHAWANDA LITTLE Facility:[facility] Start: 11-05-2021 End: 11-06-2021 ambulatory AEDLE Means [facility] Facility:[facility] Start: 10-07-2021 End: 10-07-2021 ambulatory PO SUAREZ . Facility:[facility] Start: 05-04-2020 End: 05-04-2020 Patient encounter procedure Sara Hoy -Pre-Surgical Testing Start: 05-02-2020 Registered Recurring Sara Vick -P hysical Therapy [facility] [place] Start: 04-24-2020 End: 04-24-2020 Patient encounter procedure Sara Hoy -Pre-Surgical Testing Start: 02-01-2020 End: 02-01-2020 Patient encounter procedure Sara Vick -[facility] Start: 06-29-2018 Patient encounter procedure Sara~[id number] UNKNOWN Hoy Facility:[facility] Start: 12-11-2017 End: 12-12-2017 Patient encounter DEFAULT PHYSICIAN Facility:[facility] Procedures Date Procedure Procedure Detail Performing Clinician Start: 08-08-2023 Mri spinal canal tho racic w/o contrast matrl Ghanshyam Lombardi MD Work Phone: Start: 07-13-2023 Ct lumbar spine w/o contrast material Ghanshyam Lombardi MD Work Phone: Start: 06-24-2023 End: 06-24-2023 Radex spine lumbosacral minimum 4 views Ros Cedeño ASSISTANT DIRECTOR.FUEL AGENT Work Phone: Start: 05-22-2023 Pulse volume recorde [...] Mammogram Screening [facility] Start: 06-23-2024 BP Controlled (<130/80) BP Controlled (<130/80) [facility] Start: 12-20-2023 Influenza vaccination Influenza Vaccine (Season Ended) [facility] Start: 05-22-2023 Pulse volume recorder pneumoplethysmography US arterial pvr rest [facility] Start: 05-22-2023 [facility] Start: 05-22-2023 Duplex scan of lower limb veins US venous duplex LE [facility] Start: 05-22-2023 US Lower extremity vein - bilateral [facility] Start: 04-20-2023 Advance Directive Discussion Advance Directive Discussion [facility] Start: 04-20-2023 Behavioral Health Screening Behavioral Health Screening [facility] Start: 04-20-2023 Depression Assessment Depression Assessment [facility] Start: 03-25-2023 [facility] Start: 02-28-2023 Screening for malignant neoplasm of breast Mammogram Screening [facility] Start: 12-19-2022 Covid-19 Vaccine ( season) Covid-19 Vaccine () [facility] Start: 12-19-2022 Influenza vaccination Influenza Vaccine (#1) [facility] Start: 01-28-2022 COVID-19 VACCINE (5 - Booster for Pfizer series) COVID-19 VACCINE (5 - Booster for Pfizer series) [facility] Start: 08-24-2019 Screening for malignant neoplasm of breast MAMMOGRAM SCREENING DISCUSSION [facility] Start: 12-20-2016 Screening for osteoporosis Bone Density Screening [facility] Start: 06-17-2014 Diabetes Screening Diabetes Screening [facility] Start: 2011 RSV Vaccine (1 - 1-dose 60+ series) RSV Vaccine (1 - 1-dose 60+ series) [facility] Start: 12-20-2001 Shingrix Vaccine (1 of 2) Shingrix Vaccine (1 of 2) [facility] Start: 12-20-2001 Zoster vaccine hzv live for subcutaneous use ZOSTER (SHINGLES) VACCINE (1 of 2) [facility] Start: 12-20-1996 Lipid panel Lipid Screening [facility] Start: 12-20-1996 Screening for malignant neoplasm of colon [facility] Start: 1991 Lipid panel LIPID SCREENING [facility] Start: 12-20-1972 Screening for malignant neoplasm of cervix CERVICAL CANCER SCREENING DISCUSSION [facility] Start: 12-20-1970 Third diphtheria, tetanus and acellular pertussis (DTaP) vaccination TDAP (ADULT) [facility] Start: 12-20-1970 Urine microalbumin profile DTaP,Tdap,Td Vaccine (1 - Tdap) [facility] Start: 12-20-1969 Annual PCP Team Chronic Disease Visit Annual PCP Team Chronic Disease Visit [facility] Start: 1950 Hepatitis C screening HEPATITIS C VIRUS SCREENING [facility] Start: 1950 Screening for osteoporosis DEXA SCAN DISCUSSION [facility] Start: 1950 Tetanus vaccination TETANUS [facility] End: 07-23-2024 CT Lumbar spine WO [...] Patient Education Stephanie Non Diagn ostic Block [facility] Work Phone: Patient referral [facility] Work Phone: XR Knee - left 3 Views XR KNEE L EFT 3 VIEWS Imaging Routine Pain in prosthetic joint, sequela Ordered: 09/16/2022 [facility] Comment on above: Ordered: 09/16/2022 XR Pelvis and Hip - left Views X R HIP WITH PELVIS LEFT Imaging Routine Pain in prosthetic joint, sequela 09/18/2022 10:11 AM EDT [facility] Work Phone: [facility] Immunizations Immunization Date Immunization Notes Care Provider Fa cili 02-11-2022 Influenza, injectabl e, Madin Hillary Canine Kidney, preservative free, quadrivalent MD Sara Vick Work Phone: [facility] 02-11-2022 influenza virus vacc ine, unspecified formulation Ghanshyam Lombardi MD Work Phone: [facility] 12-03-2021 COVID-19 Comirnaty (Pfizer) Tri-Sucrose 12+ MD Sara Vick Work Phone: [facility] 03-25-2021 COVID-19 mRNA, Comir nicolle (Pfizer) MD Sara Vick Work Phone: [facility] 07-12-2020 COVID-19, mRNA, LNP- S, PF, 30 mcg/0.3 mL dose Wm Nagy [facility] Comment on above: Reason for Medicatio n: Prophylaxis 06-14-2020 COVID-19, mRNA, LNP- S, PF, 30 mcg/0.3 mL dose Wm Nagy [facility] Comment on above: Reason for Medicatio n: Prophylaxis 02-08-2020 Seasonal trivalent influenza vaccine, adjuvanted, preservative free MD Sara Vick Work Phone: [facility] 02-23-2018 influenza, injectabl e, madin hillary canine kidney, preservative free MD Sara Vick Work Phone: [facility] 02-18-2018 pneumococcal polysaccharide vaccine, 23 valent [facility] 06-18-2017 tuberculin skin test ; unspecified formulation Praveen Bynum 02-24-2017 pneumococcal polysaccharide vaccine, 23 valent MD Sara Vick Work Phone: [facility] 02-05-2017 influenza, high dose seasonal, preservative-free MD Sara Vick Work Phone: [facility] 02-05-2017 pneumococcal conjuga te vaccine, 13 valent [facility] 02-02-2016 influenza, seasonal, injectable, preservative free MD Sara Vick Work Phone: [facility] 10-20-2012 pneumococcal polysaccharide vaccine, 23 valent W[facility] Nagy [facility] Payers Date Payer Category Payer Unknown [id number] 2022 Self-pay [id number] 2022 Unknown [id number] 2022 Private Health Insurance 2018 Medicare [id number] 1959 Private Health Insurance [id number] 1950 Unknown [id number] 2.16.84 0.1.199731.3.579.2.727 1950 Unknown [id number] 2.16.8 40.1.088150.3.579.2.159 1950 Unknown [id number] 2.16.84 0.1.444099.3.579.2.593 1950 Unknown [id number] 2.16.84 0.1.308680.3.579.2.593 1950 Unknown [id number] 2.16.84 0.1.322531.3.579.2.593 1951 Unknown [id number] 2.16.84 0.1.226733.3.579.2.593 1951 Unknown [id number] 2.16.84 0.1.301025.3.579.2.593 1951 Unknown [id number] 2.16.84 0.1.677944.3.579.2.593 1951 Unknown [id number] 2.16.84 0.1.153665.3.579.2.593 1951 Unknown [id number] 2.16.84 0.1.549701.3.579.2.593 1951 Unknown [id number] 2.16.84 0.1.673783.3.579.2.593 1951 Unknown [id number] 2.16.84 0.1.687746.3.579.2.593 1951 Unknown [id number] 2.16.84 0.1.978377.3.579.2.593 1951 Unknown [id number] 2.16.84 0.1.868332.3.579.2.593 1951 Unknown [id number] 2.16.84 0.1.675437.3.579.2.593 1951 Unknown [id number] 2.16.84 0.1.384828.3.579.2.593 1951 Unknown [id number] 2.16.84 0.1.874375.3.579.2.593 1951 Unknown [id number] 2.16.84 0.1.516333.3.579.2.593 1951 Unknown [id number] 2.16.84 0.1.905249.3.579.2.593 1951 Unknown [id number] 2.16.84 0.1.824694.3.579.2.593 1951 Unknown [id number] 2.16.84 0.1.143048.3.579.2.593 1951 Unknown [id number] 2.16.84 0.1.151150.3.579.2.593 1951 Unknown [id number] 2.16.84 0.1.224213.3.579.2.593 1951 Unknown [id number] 2.16.84 0.1.760851.3.579.2.593 1951 Unknown [id number] 2.16.84 0.1.686061.3.579.2.593 1951 Unknown [id number] 2.16.84 0.1.852345.3.579.2.593 1951 Unknown [id number] 2.16.84 0.1.304643.3.579.2.593 1951 Unknown [id number] 2.16.84 0.1.399455.3.579.2.593 1951 Unknown [id number] 2.16.84 0.1.011352.3.579.2.593 1951 Unknown [id number] 2.16.84 0.1.632441.3.579.2.593 1951 Unknown [id number] 2.16.84 0.1.820531.3.579.2.593 1951 Unknown [id number] 2.16.8 40.1.499228.3.579.2.983 1951 Unknown [id number] 2.16.8 40.1.643189.3.579.2.983 1951 Unknown [id number] 2.16.8 40.1.229607.3.579.2.983 1951 Unknown [id number] 2.16.8 40.1.003985.3.579.2.727 1951 Unknown [id number] 2.16.8 40.1.960696.3.579.2.727 1951 Unknown [id number] 2.16.8 40.1.259145.3.579.2.727 1951 Unknown [id number] 2.16.8 40.1.798349.3.579.2.727 1951 Unknown [id number] 2.16.84 0.1.091879.3.579.2.1259 1951 Unknown [id number] 2.16.84 0.1.158670.3.579.2.1259 1951 Unknown [id number] 2.16.84 0.1.806129.3.579.2.1259 Unknown Unknown [id number] Unknown [id number] 2.16.8 40.1.214784.3.579.2.531 Unknown [id number] 2.16.8 40.1.444805.3.579.2.531 Unknown [id number] 2.16.8 40.1.127657.3.579.2.531 Unknown [id number] 2.16.8 40.1.769794.3.579.2.531 Social History Date Type Detail Facility Start: 06-18-2017 Unknown if ever smoked [facility] Start: 04-24-2020 End: 06-24-2023 Tobacco smoking status FLIS Never smoked tobacco (finding) [facility] Start: 1950 Sex Assigned At Female F [facility] Start: 06-24-2023 Sex Assigned At F [facility] Start: 09-18-2022 Tobacco use and exposure Smokeless tobacco non-user [facility] Start: 09-18-2022 End: 06-24-2023 Alcohol intake Current drinker of alcohol (finding) [facility] Start: 09-18-2022 Alcohol Comment occasional [facility] Start: 1950 Sex Assigned At Not on file [facility] Start: 06-24-[address] [facility] National Score (1-100), lower number is lower risk 62 [facility] Medical Equipment Procedure Code Equipment Code Equipment Origin al Text Equipment Identifier Dates Arthroplasty, knee, total, minimally invasive Orthopaedic cement, non-medicated [id number] FDA Start: 05-07-2020 Arthroplasty, knee, total, minimally invasive Uncoated knee femur prosthesis, metallic ()[id number] FDA Start: 05-07-2020 Arthroplasty, knee, total, minimally invasive Tibial insert ()[id number] FDA Start: 05-07-2020 Arthroplasty, knee, total, minimally invasive Uncoated knee tibia prosthesis, metallic ()[id number] FDA Start: 05-07-2020 Arthroplasty, knee, total, minimally invasive Polyethylene patella prosthesis ()[id number] FDA Start: 05-07-2020 Goals Date Patient Goal Desired Activity /State Functional Status Date Assessment Result Facility 07-26-[address] [facility] 07-26-[address] [facility] 03-08-[address] [facility] Clinical Notes 10-07-2021 to 08-08-2023 Flor [...] PATIENT PRESENTS WITH AN IMPLANTABLE OR ATTACHED CARTOONIST SPECIAL EFFECTS: No RADIOLOGY DEPARTMENT: MR; Exam(s) Completed: Spine: Thoracic spine PERIPHERAL IV DATA: Not applicable SIGNED BY: BAY Leo) August 08, 2023 3:59 PM documented in this encounter [facility] 08-08-2023 Note HNO ID: [id number] Author: FLOR ZIEGLER RT (R) Service: Radiology [...] PATIENT PRESENTS WITH AN IMPLANTABLE OR ATTACHED CARTOONIST SPECIAL EFFECTS: No RADIOLOGY DEPARTMENT: MR; Exam(s) Completed: Spine: Thoracic spine PERIPHERAL IV DATA: Not applicable SIGNED BY: RT Felipa(R) August 08, 2023 3:59 PM [facility] 07-13-2023 History of Present illness Narrative [...] PATIENT PRESENTS WITH AN IMPLANTABLE OR ATTACHED CARTOONIST SPECIAL EFFECTS: No RADIOLOGY DEPARTMENT: CT; Exam(s) Completed: Spine PERIPHERAL IV DATA: Not applicable SIGNED BY: RT Se(Bryce) July 13, 2023 10:44 AM documented in this encounter [facility] 07-13-2023 Note HNO ID: [id number] Author: TORRIE ABRAHAM RT(R) Service: Radiology Author [...] PATIENT PRESENTS WITH AN IMPLANTABLE OR ATTACHED CARTOONIST SPECIAL EFFECTS: No RADIOLOGY DEPARTMENT: CT; Exam(s) Completed: Spine PERIPHERAL IV DATA: Not applicable SIGNED BY: TorrieRT Courtney(R) July 13, 2023 10:44 AM [facility] 06-24-2023 Note HNO ID: [id number] Author: GHANSHYAM LOMBARDI MD Service: ? Author [...] discussion. 30 minutes spent Ghanshyam Lombardi MD [facility] 06-24-2023 History of Present illness Narrative [...] this encounter [facility] 05-15-2023 Evaluation note Encounter Date Diagnosis Assessment [...] In the meantime, she can continue taking Garfield as needed all as well as Gabapentin [...] of any breach, fraud, or malicious third alliance party actors and no personal patient information was compromised. [facility] 01-24-2024 Evaluation note* Encounter Date Diagnosis [...] agrees with plan all questions were addressed. [facility] 12-28-2023 Evaluation note* Encounter Date Diagnosis Assessment Notes Treatment Notes Treatment Clinical Notes Mar, Lumbar radiculopathy (ICD-10 - M54.16) 72 year old female evaluated via telephonic call for follow up and medication refill for chronic pain. She voices complaints of low back pain with intermittent radiation down the right lower extremity. She continues taking Garfield with relief and is requesting a refill of this today. I discussed different treatment options in detail with the patient. She feels medication is managing her pain and does not wish to proceed with injections at this time. I encouraged the patient to start physical therapy as previously discussed. She can also continue taking medications as prescribed and I will refill her Garfield as she feels this provides an element [...] pain (ICD-10 - G89.29) Continue medication management. [facility] 12-15-2023 Evaluation note* Encounter Date Diagnosis [...] pain (ICD-10 - G89.29) Continue medication management. [facility] 10-24-2023 Evaluation note* Encounter Date Diagnosis Assessment Notes Treatment Notes Treatment Clinical Notes Jan, Lumbar radiculopathy (ICD-10 - M54.16) [facility] 10-10-2023 Evaluation note* Encounter Date Diagnosis [...] regarding this. Meanwhile, I will refill her Garfield as it does provide an element of [...] educated on the risks and benefits of usp opioid use. Hydrocodone/Acetamin ophen was refilled today, opioid risk assessment was done as well as pill count. Patient is compliant with opioid medication. The patient denies any opioid related side effects. [facility] 09-22-2023 Evaluation note* Encounter Date Diagnosis [...] educated on the risks and benefits of usp opioid use. Hydrocodone/Aceta minophen was refilled today, opioid risk assessment was done as well as pill count. Patient is compliant with opioid medication. The patient denies any opioid related side effects. Patients last urine drug screen was positive for alcohol, she is counselled against consuming alcohol. [facility] 08-25-2023 Evaluation note* Encounter Date Diagnosis [...] M51.36) Stable, follow up in 4 weeks. [facility] 06-02-2023 Evaluation note* Encounter Date Diagnosis [...] nerve blocks in the future if needed. [facility] 06-01-2023 History of Present illness Narrative* [...] 09/18/2022 10:58 AM Patient: Leelee Cedillo MR#: [id number] : 1950 Age: 71 y.o. Referring Physician: Sorin Dickerson DO Insurance: Pay[facility] / Plan: MEDICARE [employer] HMO [...] repair GALL BLADDER SURGERY 1999 BACK SURGERY [id number]- FOOT SURGERY [id number] Family History: Her family history is not [...] [x]cane, []bracing Are you followed by a hydropulper? [] [x] Name: Are you followed by [...] repair GALL BLADDER SURGERY 1999 BACK SURGERY [id number]- FOOT SURGERY [phone] No family history on file. Social History [...] Rash Flagyl [Metronidazole] Dyspepsia [facility]Result Comment: Electronically Signed By: Rachel SALTER\.br\Date and Time Signed: 07/27/22 15:21 EDT\.br\Electronically Co-Signed By: Ottoniel RUFF, Francisco Beck\.br\Date and Time Co- Signed: 07/27/22 17:04 [id number] Hospital Discharge instructions Patient Education 07/27/2022 15:20:26 [...] Follow these instructions at home: Medicines Take ckmg-gha-gfxaazb and prescription medicines only as told by [...] 04/06/2006 Document Revised: 07/29/2019 Document Reviewed: 02/23/2019 [employer] Patient Education 2020 [employer] 07/27/2022 15:20:26 Vasovagal Syncope, Pediatric Vasovagal [...] ?Squatting. ?Moving his or her legs. Give enqz-qyg-hsyobpn and prescription medicines only as told by [...] 01/13/2009 Document Revised: 03/19/2018 Document Reviewed: 05/12/2017 [employer] Patient Education 2020 [employer]. Follow Up Care 07/26/2022 11:32:57 With:Sara Vick Address: [address] [place] [address]- Business (1) When: Unknown Comments:Call for followup appointment 7-10 days With:Julio Ferrara MD, [facility] Address: [address] [place] [address]- When:2 to 4 weeks [facility]04-09-2023 Evaluation + Plan noteExtracted from: [...] With When Contact Information Sara Vick [address] [place] [address]- Business (1) Additional Instructions: Call for followup appointment 7-10 days Josias RUFF, CARLOS Thacker Within 2 to 4 weeks [address] [place] [address]- Additional Instructions: Near-Syncope Vasovagal Syncope, Pediatric Extracted [...] it is acute or subacute. 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 Currently has wound vac intact to this operative site. 6. Osteoarthritis (M19.90: Unspecified osteoarthritis, unspecified site) osteoarthritis status post left hip replacement Has chronic back pain. 7. Morbid obesity (E66.01: Morbid (severe) obesity due to excess calories) -BMI 70.73 -Cardiology Manager on diet, exercise, weight loss and [...] plan. Diagnostic Tests Pending * HgbA1c 07/27/22 [facility]04-08-2023 NoteLima City HospitalComment on above:Result Comment: Electronically Signed By: [...] if her pain increases in the future. [employer] Other [id number] NotePROCEDURE: XR FOOT RT MIN 3 VIEWS, [...] Electronically authenticated by: JULIO LOBATO Date: 2022-04-23 13:00[facility]01-04-2023 NotePROCEDURE: XR FOOT RT MIN [...] Electronically authenticated by: JULIO LOBATO Date: 2022-04-23 13:00[facility]12-12-2022 NotePROCEDURE: XR ANKLE RT MIN [...] Electronically authenticated by: ALFRED UMAÑA Date: 2022-03-31 18:19[facility]11-19-2022 Hospital Discharge instructions Patient Education 03/08/2022 [...] 04/06/2006 Document Revised: 04/15/2017 Document Reviewed: 03/23/2017 [employer] Patient Education 2020 [employer] 03/08/2022 17:44:27 Hip Dislocation Hip Dislocation [...] Follow these instructions at home: Medicines Take rowc-nak-wtosnyy and prescription medicines only as told by your health care provider. Ask your health care provider if the medicine prescribed to you: ?Requires you to avoid driving or using heavy machinery. ?Can cause constipation. You may need to take actions to prevent or treat constipation, such as: ?Drink enough fluid to keep your urine pale yellow. ?Take nvod-zta-bqxdwwp or prescription medicines. ?Eat foods that are [...] in the [place] Do not drive [facility]. Summary Hip dislocation happens when the [...] 12/30/2001 Document Revised: 12/29/2018 Document Reviewed: 12/30/2018 [employer] Patient Education 2020 [employer]. Follow Up Care 03/08/2022 13:37:46 With:Sorin DICKERSON Address: [address] [place] [address] Business (1) When:03/11/2022 17:44:09 Comments:Call to establish follow-up care. Wear brace until follow-up with orthopedic surgery. With:Sara Vick Address: [address] [place] [address] [address] [address] [place] [address]- Business (1) When:03/11/2022 17:43:29 Comments:Call the office [...] you develop any new or worsening symptoms. [facility]11-19-2022 Evaluation + Plan noteExtracted from: [...] XR Hip 2-3 Views Left + Pelvis [facility]11-18-2022 Evaluation note* Encounter Date Diagnosis [...] negative findings were considered in medical decision-making. [employer] Other [id number] NotePROCEDURE: XR FOOT RT MIN 3 VIEWS [...] Electronically authenticated by: JULIO LOBATO Date: 2021-10-07 11:44[facility] noteNo InformationNort [employer] 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) documented in this [facility] [place] [facility]* Diagnosis Chronic bilateral low back pain with bilateral sciatica documented [facility] this [facility] [place] [facility]* Diagnosis Onset Date Resolution Status Chronic pain acute Lumbar degenerative disc disease acute Lumbar radiculopathy acute Lumbosacral spondylosis acut e Sacroiliitis acute 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 acute Chronic pain acute Lumbar degenerative disc disease acute Lumbar radiculopathy acute Lumbosacral spondylosis acut e Sacroiliitis acute [facility] Work Phone: Evaluation note* Diagnosis 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 documented in this encounter [facility] general Narrative - Reported* Type Description Date [...] 2 021 Surgical History back surgeries x5 [facility] [employer] yuandr gilman 2018 [employer] Other [employer] general Narrative - Reported* Type Description Date [...] 2 021 Surgical History back surgeries x5 [facility] [employer] yuandr gilman 2019 Hospitalization History see above [employer] Other Hiscunp general Narrative - Reported* Type Description Date [...] 021 Surgical History back surgeries x5 [facility] carisa-dr gilman 2018 Surgical History lazer surgery on her lt leg veins and she also had sclero tx on b/l legs 2022 Hospitalization History see above [employer] Other Hospital course Narrative No data available for this section [facility] No data available for this section [facility] (n[facility]ative)* Diagnostic Procedure Only (Routine) - Closed Specialty Diagnoses / Procedures Referred By Maximiliano dee Referred To Contact XR IMAGING Diagnoses Fusion of spine of thoracolumbar region Procedures XR SCOLIOSIS PA STAND/LAT 2V RADEX ENTIR THRC LMBR CRV SAC SPI W/SKULL 2/3 VW Ros Cedeño APRN.FUEL AGENT [address] [place] [address] X[facility] [place] [address] Referral ID Status Reason Start Date Expiration Date V isits Requested Visits Authorized [id number] Closed Auto-Generate d Referral 02/25/2023 03/26/2024 1 1 * Diagnostic Procedure Only (Routine) - Closed Specialty Diagnoses / Procedures Referred By Maximiliano dee Referred To Contact XR IMAGING Diagnoses Fusion of spine of thoracolumbar region Procedures XR LUMBAR MOTION 4V AP/LAT/ FLEX/EXT RADEX SPINE LUMBOSACRAL MINIMUM 4 VIEWS Ros Cedeño APRN.FUEL AGENT [address] [place] [id number] Xr [facility] [place] [address] Referral ID Status Reason Start Date Expiration Date V isits Requested Visits Authorized [id number] Closed Auto-Generate d Referral 02/25/2023 03/26/2024 1 1 [facility] for referral (narrative)* Diagnostic Procedure Only (Routine) - Closed Specialty Diagnoses / Procedures Referred By Maximiliano t Referred To Contact MR IMAGING Diagnoses 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 Procedures MRI THORACIC SPINE WO IVCON MRI SPINAL CANAL THORACIC W/O CONTRAST MATRL Ghanshyam Lombardi MD [address] [place] [address] Mr Imaging [place] [address] Referral ID Status Reason Start Date Expiration Date V isits Requested Visits Authorized [id number] Closed Auto-Generate d Referral 08/07/2023 09/07/2023 1 1 [facility] for visit Narrative* Diagnostic Procedure Only (Routine) - Closed Specialty Diagnoses / Procedures Referred By Maximiliano t Referred To Contact XR IMAGING Diagnoses Fusion of spine of thoracolumbar region Procedures XR SCOLIOSIS PA STAND/LAT 2V RADEX ENTIR THRC LMBR CRV SAC SPI W/SKULL 2/3 VW Ros Cedeño, ASSISTANT DIRECTOR.FUEL AGENT [address] [place] [address] Xr Imaging [place] [address] Referral ID Status Reason Start Date Expiration Date V isits Requested Visits Authorized [id number] Closed Auto-Generate d Referral 02/25/2023 03/26/2024 1 1 [facility] Advance Directives No Advanced Directives Records Found [...] FOLLOW UP; PVR'S, FF ULTRASOUND DONE AT [facility] MED REFILL FOR CHRONIC PAIN Reason for [...] W/O CONTRAST MATERIAL Ghanshyam Lombardi MD [address] [place] [address] Ct Imaging [facility]95 Referral ID Status Reason Start Date Expiration Date Visits Requested Visits Authorized [id number] Pending Review Auto-Generat ed Referral 06/24/2023 07/23/2024 1 1 Specialty Diagnoses / Procedures Referred By Contac t Referred To Contact MR IMAGING Diagnoses 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 Procedures MRI THORACIC SPINE WO IVCON MRI SPINAL CANAL THORACIC W/O CONTRAST MATRL Ghanshyam Lombardi MD [address] [place] [id number] Mr Imaging [facility]95 Referral ID Status Reason Start Date Expiration Date Visits Requested Visits Authorized [id number] Pending Review Auto-Generat ed Referral 06/24/2023 07/23/2024 1 1 Specialty Diagnoses / Procedures Referred By Contac t Referred To Contact Diagnoses Pain in prosthetic joint, sequela Procedures XR HIP WITH PELVIS LEFT Perfecto Burch MD [address] [place] [address] Referral ID Status Reason Start Date Expiration Date V isits Requested Visits Authorized [id number] New Request 09/18/2022 10/13/2023 1 1 Specialty Diagnoses / Procedures Referred By Contac t Referred To Contact Diagnoses Pain in prosthetic joint, sequela Procedures XR KNEE LEFT 3 VIEWS Perfecto Burch MD [address] [place] [address] Referral ID Status Reason Start Date Expiration Date V isits Requested Visits Authorized [id number] New Request 09/16/2022 10/11/2023 1 1 Additional Source Comments INFORMATION SOURCE (unrecogn ized section and content) DATE CREATED AUTHOR 12/13/2017 [facility] DATE CREATED AUTHOR AUTHOR'S ORGANIZ ATION 07/10/2018 Leslie Bulloch [facility] DATE CREATED AUTHOR AUTHOR'S ORGANIZ ATION 02/25/2019 [facility] DATE CREATED AUTHOR AUTHOR'S ORGANIZ ATION 03/01/2022 [facility]ical Specialist DATE CREATED AUTHOR AUTHOR'S ORGANIZ ATION 07/26/2022 [facility] DATE CREATED AUTHOR AUTHOR'S ORGANIZ ATION 09/27/2022 [facility] DATE CREATED AUTHOR AUTHOR'S ORGANIZ ATION 09/27/2022 [facility] DATE CREATED AUTHOR AUTHOR'S ORGANIZ ATION 11/26/2022 Leslie Bulloch [facility] DATE CREATED AUTHOR AUTHOR'S ORGANIZ ATION 07/29/2023 [facility] DATE CREATED AUTHOR AUTHOR'S ORGANIZ ATION 08/09/2023 [facility] dical Specialists EPIC DATE CREATED AUTHOR AUTHOR'S ORGANIZ ATION 11/05/2023 [facility] REASON FOR VISIT (unrecogniz ed section and content) Specialty Diagnoses / Procedures Referred By Contac t Referred To Contact Diagnoses Pain in prosthetic joint, sequela Procedures XR HIP WITH PELVIS LEFT Perfecto Burch MD [address] [place] [address] Referral ID Status Reason Start Date Expiration Date V isits Requested Visits Authorized [id number] New Request 09/18/2022 10/13/2023 1 1 Reason Comments Pain New Patient Reason Comments New Patient Specialty Diagnoses / Procedures Referred By Contac t Referred To Contact CT IMAGING Diagnoses Chronic bilateral low back pain with bilateral sciatica Procedures CT LUMBAR SPINE WO IVCON CT LUMBAR SPINE W/O CONTRAST MATERIAL Ghanshyam Lombardi MD [address] [place] [address] Ct Imaging [facility]95 Referral ID Status Reason Start Date Expiration Date V isits Requested Visits Authorized [id number] Closed Auto-Generate d Referral 07/11/2023 08/10/2023 2 [...] A17 300 Ghanshyam Lombardi MD [address] [place] [address] [address] [facility] [address] [place] [id number] Referral ID Status Reason Start Date Expiration Date Visits Re quested Visits Authorized [id number] Closed 08/07/2023 09/07/2023 1 1 Patient Care team informatio n (unrecognized section and content) Team Status: Active Member Role Status Dates Sara Vick MD Primary Care Provider Active Team Status: Inactive Member Role Status Dates Sara Vick MD Primary Care Provider, Attending Pr dusty Active Cupola Tapper Helper Relationship Specialty Start Date End Date Sara Vick MD [address] [place] [address] PCP - General Family Medicine 04/09/22 Cupola Tapper Helper Relationship Specialty Start Date End Date Sara Vick MD [address] [place] [address] PCP - General Family Medicine 04/09/22 Team [...] May 22, 2023 End: May 22, 2023 Cupola Tapper Helper Relationship Specialty Start Date End Date Sara Vick MD PCP - General Family Medicine 06/09/11 Cupola Tapper Helper Relationship Specialty Start Date End Date Sara Vick MD PCP - General Family Medicine 06/09/11 Cupola Tapper Helper Relationship Specialty Start Date End Date Sara [...] drug abuse patient.[facility] the event this information is protected by the Federal Confidentiality of Alcohol and Drug Abuse Patient Records regulations: The Federal rules restrict any use of the information to criminally investigate or prosecute any alcohol or drug abuse patient.[facility] the event this information is protected by the Federal Confidentiality of Alcohol and Drug Abuse Patient Records regulations: The Federal rules restrict any use of the information to criminally investigate or prosecute any alcohol or drug abuse patient.[facility] the event this information is protected by the Federal Confidentiality of Alcohol and Drug Abuse Patient Records regulations: The Federal rules restrict any use of the information to criminally investigate or prosecute any alcohol or drug abuse patient.[facility] FOR RECORDS PERTAINING TO PATIENTS WHO ARE [...] BE BASED ON THE PRIMARY CLINICAL RECORDS. [facility] [employer] [facility]. provides no warranty or guarantee of the accuracy or completeness of information in this document.
[2024-12-09 11:39] LABS: Glucose Urine UA NEGATIVE (NEGATIVE)
[2024-12-09 12:50] LABS: Cast Seen? NONE SEEN #/LPF (NONE SEEN); Crystals Seen? None Seen #/HPF (None Seen)
== END 2024-12-09 11:15 | disposition home or self-care (01) ==
PROVIDERS: PCP Family Medicine; Visit Provider Family Medicine
DX: N39.0 Urinary tract infection, site not specified (principal)
CPT/HCPCS: 81001; 87086; 87088; 87186

== ENCOUNTER 2024-12-20 12:13 | Outpatient (OUT) | payer MEDICARE, SELFPAY ==
--- NOTE | 2024-12-20 12:21 | XR_ITS ---
The [address] [address] Patient Name: KENAN CHASE MRN: [id number] date: 1950 Sex: F Assigned Patient Location: [facility] Current Patient Location: [facility] Accession/Order Number: [id number] Exam Date: 12/20/2024 12:26 Report Date: 12/20/2024 12:56 At the request of: SARA VICK MD Procedure: XR lumbar spine min 4V CLINICAL HISTORY: acute bronchitis. Acute on chronic back and bilateral hip pain. No reported injury. Previous left hip replacement. ADULT PELVIS WITH BILATERAL HIPS - 5 views COMPARISON: 05/21/2022 AP view of the pelvis as well as AP and frog-lateral views of both hips were obtained. A left hip prosthesis is again visualized. The hardware appears intact and unchanged from the prior. No acute fracture or dislocation is noted. The right hip joint space is maintained and minor degenerative change is seen. There is sclerosis at the SI joints. Dextroscoliotic curvature as well as postoperative changes are seen at the lower imaged lumbar spine. The soft tissues are unremarkable. XR/XR chest 2V IMPRESSION: POSTOPERATIVE CHANGES, DESCRIBED. NO ACUTE PLAIN FILM FINDINGS. LUMBAR SPINE - 4 views COMPARISON: 09/23/2021 and MRI 02/03/2023 AP, lateral and both oblique views were obtained. There is osteopenia. Multilevel laminectomy and fusion is present from T11 through L4 with posterior rods and pedicle screws skipping the L2 level. There are lateral rods and screws at L1-2 on the left. As visualized, the hardware appears intact and unchanged from the prior. There is reversal of the normal lumbar lordosis. No developing compression fractures or change in alignment are seen. There is disc space narrowing at L4-5 and the lumbosacral junction where there is endplate sclerosis and subchondral cystic change, also seen on the MRI. The SI joints show mild sclerosis. There is atherosclerotic plaque at the aorta. IMPRESSION: MULTILEVEL POSTOPERATIVE CHANGES, SIMILAR THE PRIOR. LOSS OF NORMAL LUMBAR LORDOSIS AND DEGENERATIVE CHANGES. PA AND LATERAL CHEST: COMPARISON: None There is shallow inspiration. There is no focal parenchymal consolidation, effusion or pneumothorax. The cardiac, hilar and mediastinal silhouettes are within normal limits. There is no vascular congestion. The visualized bony thorax is intact. Thoracolumbar fusion hardware is seen. IMPRESSION: NO ACUTE CARDIOPULMONARY ABNORMALITY. Impression dictated by: Ina Loredo M.D. 12/20/2024 12:56 PM Dictation Location: [facility] Electronically authenticated by: [id number] Y Date: 12/20/2024 12:56
--- NOTE | 2024-12-20 12:21 | XR_ITS ---
The [address] [address] Patient Name: KENAN CHASE MRN: [id number] date: 1950 Sex: F Assigned Patient Location: [facility] Current Patient Location: [facility] Accession/Order Number: [id number] Exam Date: 12/20/2024 12:26 Report Date: 12/20/2024 12:56 At the request of: SARA VICK MD Procedure: XR lumbar spine min 4V CLINICAL HISTORY: acute bronchitis. Acute on chronic back and bilateral hip pain. No reported injury. Previous left hip replacement. ADULT PELVIS WITH BILATERAL HIPS - 5 views COMPARISON: 05/21/2022 AP view of the pelvis as well as AP and frog-lateral views of both hips were obtained. A left hip prosthesis is again visualized. The hardware appears intact and unchanged from the prior. No acute fracture or dislocation is noted. The right hip joint space is maintained and minor degenerative change is seen. There is sclerosis at the SI joints. Dextroscoliotic curvature as well as postoperative changes are seen at the lower imaged lumbar spine. The soft tissues are unremarkable. XR/XR lumbar spine min 4V IMPRESSION: POSTOPERATIVE CHANGES, DESCRIBED. NO ACUTE PLAIN FILM FINDINGS. LUMBAR SPINE - 4 views COMPARISON: 09/23/2021 and MRI 02/03/2023 AP, lateral and both oblique views were obtained. There is osteopenia. Multilevel laminectomy and fusion is present from T11 through L4 with posterior rods and pedicle screws skipping the L2 level. There are lateral rods and screws at L1-2 on the left. As visualized, the hardware appears intact and unchanged from the prior. There is reversal of the normal lumbar lordosis. No developing compression fractures or change in alignment are seen. There is disc space narrowing at L4-5 and the lumbosacral junction where there is endplate sclerosis and subchondral cystic change, also seen on the MRI. The SI joints show mild sclerosis. There is atherosclerotic plaque at the aorta. IMPRESSION: MULTILEVEL POSTOPERATIVE CHANGES, SIMILAR THE PRIOR. LOSS OF NORMAL LUMBAR LORDOSIS AND DEGENERATIVE CHANGES. PA AND LATERAL CHEST: COMPARISON: None There is shallow inspiration. There is no focal parenchymal consolidation, effusion or pneumothorax. The cardiac, hilar and mediastinal silhouettes are within normal limits. There is no vascular congestion. The visualized bony thorax is intact. Thoracolumbar fusion hardware is seen. IMPRESSION: NO ACUTE CARDIOPULMONARY ABNORMALITY. Impression dictated by: Ina Loredo M.D. 12/20/2024 12:56 PM Dictation Location: [facility] Electronically authenticated by: [id number] Y Date: 12/20/2024 12:56
--- NOTE | 2024-12-20 12:21 | XR_ITS ---
The [address] [address] Patient Name: KENAN CHASE MRN: [id number] date: 1950 Sex: F Assigned Patient Location: [facility] Current Patient Location: [facility] Accession/Order Number: [id number] Exam Date: 12/20/2024 12:26 Report Date: 12/20/2024 12:56 At the request of: SARA VICK MD Procedure: XR lumbar spine min 4V CLINICAL HISTORY: acute bronchitis. Acute on chronic back and bilateral hip pain. No reported injury. Previous left hip replacement. ADULT PELVIS WITH BILATERAL HIPS - 5 views COMPARISON: 05/21/2022 AP view of the pelvis as well as AP and frog-lateral views of both hips were obtained. A left hip prosthesis is again visualized. The hardware appears intact and unchanged from the prior. No acute fracture or dislocation is noted. The right hip joint space is maintained and minor degenerative change is seen. There is sclerosis at the SI joints. Dextroscoliotic curvature as well as postoperative changes are seen at the lower imaged lumbar spine. The soft tissues are unremarkable. XR/XR hip BI w PEL 1V IMPRESSION: POSTOPERATIVE CHANGES, DESCRIBED. NO ACUTE PLAIN FILM FINDINGS. LUMBAR SPINE - 4 views COMPARISON: 09/23/2021 and MRI 02/03/2023 AP, lateral and both oblique views were obtained. There is osteopenia. Multilevel laminectomy and fusion is present from T11 through L4 with posterior rods and pedicle screws skipping the L2 level. There are lateral rods and screws at L1-2 on the left. As visualized, the hardware appears intact and unchanged from the prior. There is reversal of the normal lumbar lordosis. No developing compression fractures or change in alignment are seen. There is disc space narrowing at L4-5 and the lumbosacral junction where there is endplate sclerosis and subchondral cystic change, also seen on the MRI. The SI joints show mild sclerosis. There is atherosclerotic plaque at the aorta. IMPRESSION: MULTILEVEL POSTOPERATIVE CHANGES, SIMILAR THE PRIOR. LOSS OF NORMAL LUMBAR LORDOSIS AND DEGENERATIVE CHANGES. PA AND LATERAL CHEST: COMPARISON: None There is shallow inspiration. There is no focal parenchymal consolidation, effusion or pneumothorax. The cardiac, hilar and mediastinal silhouettes are within normal limits. There is no vascular congestion. The visualized bony thorax is intact. Thoracolumbar fusion hardware is seen. IMPRESSION: NO ACUTE CARDIOPULMONARY ABNORMALITY. Impression dictated by: Ina Loredo M.D. 12/20/2024 12:56 PM Dictation Location: [facility] Electronically authenticated by: [id number] Y Date: 12/20/2024 12:56
--- OUTSIDE RECORDS SUMMARY | 2024-12-20 12:22 | XMS_ITS | CCD ---
Author Organization [facility] Care Team Providers Care Attendant Arcade Name Role Phone Praveen Lopez Unavailable Unavailable PHYSICIAN, DEFAULT Unavailable Unavailable PHYSICIAN, DEFAULT Unavailable Unavailable SARA VICK Unavailable Unavailable Sara Vick~[phone] UNKNOWN Admitting Unavailable Sara Vick~[phone] UNKNOWN Attending Unavailable Sara Vick~[phone] UNKNOWN Referring Unavailable Sara Vick Primary Care Provider Trino Yoo Attending Provider [phone] Larry Brown Unavailable Sara Vick Primary Care Physician Lynn Salas Unavailable Unavailable Liam Flor Unavailable [...] Unavailable NICANOR Mohan, DR RUIZ Admitting Unavailable DR SARA OVERTON Attending Unavailable SHAWANDA LITTLE Admitting Unavailable SHAWANDA LITTLE Attending Unavailable SHAWANDA LITTLE Consulting Unavailable NICANOR Mohan, DR RUIZ Primary Care Unavailable SARA LAUREN Consulting Unavailable HIGHLANDER, ADELE Means Admitting Unavailable HIGHLANDER, [...] ALFRED Deal Consulting Unavailable ELZBIETADEEPALI Admitting Unavailable ELZBIETADEEPALI Attending Unavailable HOY ., DR RUIZ Primary Care Unavailable ELZBIETADEEPALI Consulting Unavailable HIGHLANDER, ADELE Means Attending Unavailable HIGHLANDER, ADELE Means Admitting Unavailable HOY ., DR RUIZ Primary Care Unavailable WEST, DR ALFRED Deal Attending Unavailable WEST, DR ALFRED Deal Consulting Unavailable WEST, DR ALFRED Deal Admvictoriano Unavailable HOY ., DR RUIZ Primary Care Unavailable SHAHZADEBER, DR JULIO Wu Consulting Unavailable WEST, DR AFLRED Deal Attending Unavailable WEST, DR ALFRED Deal Consulting Unavailable WEST, DR ALFRED Deal Admitting Unavailable HOY ., DR RUIZ Primary Care Unavailable RACHELLEECK, DR AKIL Salvador Consulting Unavailabl e REINECK, DR AKIL Salvador Admitting Unavailabl e REINECK, DR AKIL Salvador Attending Unavailabl e HOY ., DR RUIZ Primary Care Unavailable MARI LORENZO Consulting Unavailable HOY ., DR URIZ Consulting Unavailable HOY ., DR RUIZ Admitting [...] Unavailable MAGNOLIA ., NIKHIL PARKS Consulting Unavailable SHARP, EARL Consulting Unavailable GENESIS II, DENIS Consulting Unavailable [...] Unavailable Sara Vick MD Primary Care Provider [phone] Dominique Shane Unavailable MD Sara Vick Primary Care Provider [phone] MD Larry Brown Attending Provider Kiran Kessler Unavailable HAILEY Jansen Attending Provider [phone] MD Kiran Kessler Attending Provider Sara Vick MD Primary Care Provider MD Sara Vick Primary Care Provider [phone] HAILEY Jansen Attending Provider [phone] MD Kiran Kessler Attending Provider ANNIE JIMENEZ Attending Unavailable ANNIE JIMENEZ Referring Unavailable DAVIDSON, ROS Referring Unavailable HOY, SARA M Primary Care Unavailable SARA VICK M Primary Care Unavailable PELLE, GHANSHYAM Referring Unavailable HOY, SARA M Primary Care Unavailable PELLE, GHANSHYAM Referring Unavailable HOY, SARA M Primary Care Unavailable PELLE, GHANSHYAM Attending Unavailable SARA VICK M Referring Unavailable SARA VICK Primary Care Unavailable Sara Vick MD Primary Care Provider [phone] Sara Vick MD Attending Provider Sara Vick Attending Unavailable Sara Vick Primary Care Unavailable Sara Vick Admitting Unavailable Judson SAXENA Attending Unavailable Nixon Vicklas Referring Unavailable Unavailable Unavailable Unavailable Allergies Allergy Classification Reported Allergen(s) Allergy Type Date of Onset Reaction(s) Facility (1 source) Sulfa Antibiotics 06-19-19 18 [facility] (3 sources) Sulfonamides (Antibiotic) Drug allergy (disorder) 08-02-19 10 [facility] [place] Repository (4 sources) Sulfamethoxazole; Translations: [sulfamethoxazole ] Drug Allergy Cutaneous eruption (morphologic abnormality) [facility] [place] Repository (2 sources) Sulfur; Translations: [Sulfur] Drug Allergy [facility] [place] Repository (12 sources) Sulfonamides (Antibiotic); Translations: [SULFA (SULFONAMIDE ANTIBIOTICS)] Allergy to substance 07-17-19 07 [facility] (18 sources) Sulfacetamide Drug Allergy 09-19-19 23 [place] Other (2 sources) metroNIDAZOLE Drug Allergy 09-19-19 23 [facility] (1 source) Sulfacetamide Drug Allergy 08-07-19 24 [facility] Repository Medications Current Medications Medication Drug Class(es) Dates Sig (Normalized) Sig (Original) acetaminophen 325 mg oral tablet (3 sources) Start: 09-14-2019 take 2 tablets by mouth every four hours as needed for pain Tylenol 325 mg Tab 650 mg = 2 tab(s), Oral, q4hr, PRN Breakthrough Pain, Refills(s) 0 Start Date: 09/14/19 Status: Ordered Start: 06-18-2017 take 2 tablets by mo [facility] every four hours as needed for pain Tylenol Tablet 325 MG 2 tablet Tablet Oral Give 2 tablet by mouth every 4 hours as needed for take as needed for mild pain or fever 06/18/2017 20:15:00 Albuterol (Eqv-Ventolin HFA) 90 mcg/inh inhalation aerosol (1 source) Start: 07-26-2022 take 2 puff(s) by inhalation every six hours Albuterol (Eqv-Ventolin HFA) 90 mcg/inh inhalation aerosol 2 puff(s), Inhalation, q6hr Shortness of breath or wheezing, Refill(s) 0 Start Date: 07/26/22 Status: Ordered alendronic acid 70 mg oral tablet (19 sources) Bisphosphonate Start: 06-29-2023 take 1 tablet by mouth once daily Start: 07-08-2022 alendronate 70 MG tablet take 1 tablet by [facility] once daily Alendronate Sodium 70 MG 1 tablet 30 minutes before the first food, beverage or medicine of the day with plain water Orally Active aspirin 81 mg delayed release oral tablet (20 sources) Platelet Aggregation Inhibitor, Nonsteroidal Anti-inflammatory Drug Start: 07-27-2022 take 1 tablet by mouth once daily aspirin 81 mg Oral EC Tab 81 mg = 1 tab(s), Oral, Daily, # 30 tab(s), Refills(s) 0, Pharmacy: [facility]/pharmacy #[id number], 172.7, cm, 07/26/22 11:43:00 EDT, Height/Length Dosing, 93.5, kg, 07/27/22 10:37:00 EDT, Weight Dosing Start Date: 07/27/22 Status: Ordered Start: 05-08-2020 End: 09-10-2022 take 1 tablet by mouth twice daily Aspirin 81 mg Tablet,Delayed Release (Dr/Ec) Discontinued 81 MG PO Twice daily 0 [...] take 1 capsule by mouth once daily Start: 06-19-2017 take 1 tablet by donna once daily Vitamin D3 Tablet 2000 UNIT 1 tablet Tablet Oral Give 1 tablet by mouth one time a day for supplement 06/19/2017 9:00:00 take 1 capsule by [facility] every twenty-four hours Vitamin D3 50 MCG (1999 UT) 1 capsule Orally Once a day Active collagenase 0.25 unt/mg topical ointment (2 sources) Collagen-specific Enzyme Start: 06-29-2023 Collagenase 250 UNIT/GM (11 sources) Collagenase 250 [...] 1 tablet by mouth every other week Start: 04-24-2020 End: 03-25-2023 Furosemide Discontinued 20 M G PO As Directed April 24, 2020 12:00am March 25, 2023 10:11am Start: 07-01-2018 End: 03-25-2023 Furosemide 20 mg Tablet Disc ontinued 20 MG PO As Directed April 24, 2020 1:00am March 25, 2023 11:11am lidocaine 0.05 mg/mg medicated patch (12 sources) Antiarrhythmic, Amide Local Anesthetic Start: 06-29-2023 apply 1 dose topically once daily as needed Start: 12-12-2022 Lidoderm 5 % 1 patch remove after 12 hours Externally Once a day for 30 days Nov, Active losartan potassium 100 mg oral tablet (20 sources) Angiotensin 2 Receptor Mike Start: 06-18-2011 take 1 tablet by mouth once daily Losartan Potassi um Active Comment on above: Take 1 tablet by donna th once daily. pantoprazole 40 mg delayed release oral tablet (20 sources) Proton Pump Inhibitor Start: 09-14-2019 take 1 tablet by mouth once daily Start: 06-19-2017 take 1 tablet by donna [...] 1 tablet by mouth once da arnold take 1 tablet by donna th once daily in the morning Levothyroxine Sodium 125 MCG 1 tablet in the morning on an empty stomach Orally Once a day Active Comment on above: Take 1 tablet by donna th once daily. tiZANidine 4 mg oral capsule (20 sources) Central alpha-2 Adrenergic Agonist Start: 06-29-2023 take 0.5-1 tablets by mouth twice daily as needed Start: 07-26-2022 take 2 tablets by mo [facility] every eight hours as needed for muscle spasms tiZANidine 4 mg Tab 8 mg = 2 tab(s), Oral, q8hr, PRN Spasm, Refills(s) 0 Start Date: 07/26/22 Status: Ordered Start: 06-19-2017 take 2 tablets by [facility] twice daily Zanaflex Tablet 4 MG 2 tablet Tablet Oral GIVE 2 TABS (8MG) BY MOUTH TWICE DAILY FOR MUSCLOSKELETAL 06/19/2017 9:00:00 take 1 capsule by [facility] once daily at bedtime tiZANidine HCl 4 mg capsule Take 4 mg by mouth daily at bedtime. 0 Active take 1 capsule by [facility] every eight hours tiZANidine HCl 4 MG 1 capsule as needed Orally Three times a day Active Comment on above: Take 4 mg by mouth d aily at bedtime. traMADol hydrochloride 50 mg oral tablet (1 source) Opioid Agonist Start: take 1 tablet by mouth every twelve hours as needed for pain TraMADol HCl Tablet 50 MG 1 tablet Tablet Oral Give 1 tablet by mouth every 12 hours as needed for as needed for pain 06/18/2017 20:30:00 vitamin b12 1 mg/ml injectable solution (20 sources) Vitamin B12 Start: inject 1000 ug by subcutaneous injection every 30 days Start: 04-24-2020 inject 1000 ug by lopez bcutaneous injection every 30 days Cyanocobalamin (Vitamin B-12) Active 1000 MCG SUBCUT Q30D April 24, 2020 1:00am Start: 09-14-2019 cyanocobalamin 1000 mcg/mL Inj 1,000 microgram, IntraMuscular, qMonth, Refills(s) 0 Start Date: 09/14/19 Status: Ordered Cyanocobalamin 1 000 MCG/ML 1 ml Orally 1 x per month injection Active Completed/Discontinued Medications Medication Drug Class(es) Dates Sig (Normalized) Sig (Original) acetaminophen 325 mg / HYDROcodone bitartrate 5 mg oral tablet (20 sources) Opioid Agonist Start: 06-29-2023 End: 08-07-2023 take 1 tablet by mouth once daily as needed for pain Hydrocodone-Acetami nophen 5-325 mg tablet Discontinued 1 TAB PO Daily as needed for Pain June 30, 2023 August 07, 2023 11:54am [...] Apr, Active Start: 03-25-2023 End: 06-29-2023 Hydrocodone-Acetaminophen 5- 325 mg tablet Discontinued 1 TAB PO As Directed as needed for Pain March 25, 2023 1:00am June 29, 2023 [...] for 30 days Dec, Active Start: 03-08-2022 [place] 325 mg-5 mg oral tablet 1 tab(s), Oral, q4hr for pain, 12 tab(s), Refill(s) 0, [facility]/pharmacy #[id number], 172, cm, 03/08/22 13:49:00 EST, Height/Length Dosing, 103.6, kg, 03/08/22 13:49:00 EST, Weight Dosing Start Date: 03/08/22 Status: Ordered acetaminophen 325 mg / oxyCODONE hydrochloride 5 mg oral tablet (6 sources) Opioid Agonist Start: 05-08-2020 End: 09-10-2022 take 1 tablet by mouth every four to six hours as needed for pain Oxycodone-Acetaminophen (Percocet) 5-325 mg tablet Discontinued 1 - 2 TAB PO EVERY 4-6 HOURS as needed for pain 40 7 May 08, 2020 September 10, [...] 06/18/2017 20:15:00 ciprofloxacin 500 mg oral tablet (5 sources) Quinolone Antimicrobial Start: 05-07-2020 End: 09-10-2022 take 1 tablet by mouth twice daily Ciprofloxacin Hcl 500 mg Tablet Discontinued 500 MG PO Twice daily May 07, 2020 1:00am September 10, 2022 11:47am docusate sodium 100 mg oral capsule (5 sources) Start: 05-08-2020 End: 09-10-2022 take 1 capsule by mouth twice daily Docusate Sodium (Dok) 100 mg Capsule Discontinued 100 MG PO Twice daily May 08, 2020 1:00am September 10, 2022 11:48am gabapentin 600 mg oral tablet (20 sources) Anti-epileptic Agent Start: 04-24-2020 End: 06-29-2023 take 2 tablets by mouth twice daily Gabapentin 600 mg Tablet Discontinued 1200 MG PO Twice daily April 24, 2020 1:00am June 29, 2023 1:13pm Start: 04-24-2020 End: 06-29-2023 take 1200 mg by mouth twice daily Gabapentin Discontinued 1200 MG PO Twice daily April 24, 2020 1:00am June 29, 2023 1:13pm Start: 06-19-2017 take 1 tablet by donna th twice daily Comment on above: Take 600 mg by mouth twice daily. hydrOXYzine pamoate 25 mg oral capsule (5 sources) Antihistamine Start: 05-08-19 End: 06-29-19 take 1 capsule by mouth every six hours as needed for muscle spasms Hydroxyzine Pamoate (Vistaril) 25 mg capsule Discontinued 25 MG PO Q6H as needed for spasms May 08, 2020 1:00am June 29, 2023 1:17pm ibuprofen 800 mg oral tablet (7 sources) Nonsteroidal Anti-inflammatory Drug Start: 04-24-19 End: 09-11-19 23 take 1 tablet by mouth four times daily as needed for pain Ibuprofen 800 mg Tablet Discontinued 800 MG PO Four times daily as needed for Pain April 24, 2020 1:00am September 10, 2022 11:49am meloxicam 15 mg oral tablet (20 sources) Nonsteroidal Anti-inflammatory Drug Start: 07-02-19 End: 06-29-19 24 take 1 tablet by mouth once daily Meloxicam 15 mg Tablet Discontinued 15 MG PO Daily April 24, 2020 1:00am June 29, 2023 1:17pm Vitamin D3 1000 intl units oral tablet (2 sources) Start: 09-20-19 take 1 tablet by mouth once daily [...] Other long-term (current) drug therapy; Translations: [OTH ASSISTED CURRENT [...] knee joint] Chronic Other connective tissue disease (5 sources) History of total knee arthroplasty; Translations: [...] Episodic Other diseases of veins and lymphatics (18 sources) Peripheral venous insufficiency; Translations: [Venous insufficiency [...] closed fracture] Episodic Other nervous system disorders (16 sources) Chronic pain; Translations: [Other chronic pain] [...] AND SUBQ TISSUE UNS] Onset: 3 Episodic Peripheral and visceral atherosclerosis (2 sources) [...] left elbow, initial encounter] Episodic Thyroid disorders (18 sources) Hypothyroidism; Translations: [Hypothyroidism, unspecified] Onset: 2 [...] Test Name Value Interpretation Reference Range Facility Urine Cultureon 12-09-2024 Bacteria identified Cx Nom (U) ORGANISM: Escherichia coli (O:ESCCOL) [place] Count 15,000 ORGANISM: Methicillin Resis Staph Aureus (O:MRSA) [place] Count 75,000 Aerobic BEATRIZ Charge (NMIC56) --- SUSCEPTIBILITY -- ORGANISM: O:ESCCOL ANTIBIOTIC INTERPRETATION BEATRIZ Amikacin S <16 Amoxacillin/K Clavulanate S <8 Ampicillin S <8 Ampicillin/Sulbactam S <4 Aztreonam S <4 Cefazolin S <2 Cefepime S <2 Ceftazidime S <1 Ceftazidime/Avibactam S <4 Ceftolozane/Tazobactam S <2 Ceftriaxone S <1 Cefuroxime I 16 Ciprofloxacin R >2 Ertapenem S <0.5 Gentamicin S <2 Levofloxacin R >4 Meropenem S <1 Meropenem/Vaborbactam S <2 Nitrofurantoin S <32 Piperacillin/Tazobacta m S <8 Tetracycline S <4 Tigecycline S <2 Tobramycin S <2 Trimethoprim/Sulfameth oxazole S <0.5 Aerobic BEATRIZ Charge (PCMIC38) --- SUSCEPTIBILITY -- ORGANISM: O:MRSA ANTIBIOTIC INTERPRETATION BEATRIZ Ceftaroline S <0.5 Daptomycin S <0.5 Linezolid S 2 Nitrofurantoin S <32 Oxacillin R >2 Penicillin R >2 Tetracycline S <4 Trimethoprim/Sulfameth oxazole S <0.5 Vancomycin S 1 S = SUSCEPTIBLE I = INTERMEDIATE R = RESISTANT BLANK = DATA NOT AVAILABLE, OR DRUG NOT ADVISABLE OR TESTED R* = RESISTANCE DUE TO EXTENDED SPECTRUM BETA-LACTAMASES ESBL = EXTENDED SPECTRUM BETA-LACTAMASE TFG = THYMIDINE-DEPENDENT STRAIN JOSÉ ANTONIO = BETA-LACTAMASE POSITIVE IB = INDUCIBLE BETA-LACTAMASE. APPEARS IN PLACE OF 'S' WITH SPECIES KNOWN TO POSSESS INDUCIBLE BETA-LACTAMASES. POTENTIALLY THEY MAY BECOME RESISTANT TO ALL B-LACTAM DRUGS. PERFORMED BY: [place] [address] PATHOLOGIST JUICE STANDARDIZER FRANKLYN MARIE M.D. Normal [facility] Comment on above: Performed By: #### C UU #### [address] MR Thoracic spine WO contras ton 08-08-2023 [facility] MRI THORACIC SPINE WO IVCONo n 08-08-2023 MRI THORACIC SPINE WO IVCON * * *Final Report* * * DATE OF EXAM: Aug 08 2023 4:14PM [facility] 0325 - MRI THORACIC SPINE WO IVCON [...] and assume there are 5 lumbar-type vertebrae. Electrical Maintenance Supervisor: [facility] Transcribe Date/Time: Aug 08 2023 9:09P Dictated by : HARRY JONES MD This examination was interpreted and the report reviewed and electronically signed by: HARRY JONES MD on Aug 08 2023 9:14PM EST [id number] Normal [facility] BI MAMMOGRAM SCREENING TOMOS YNTHESIS BILATERALon 08-05-2023 [...] IS VERY IMPORTANT TO YOUR HEALTH. THE [employer] GUIDELINES RECOMMEND THAT WOMEN 40 YEARS OF AGE AND OLDER SHOULD HAVE A MAMMOGRAM EVERY YEAR. A REMINDER LETTER WILL BE SENT AT THE APPROPRIATE TIME. ELECTRONICALLY SIGNED BY: Claudia Clark, DO Normal Not Available Comment on above: Order Comment: U/S a nd spot compression if indicated CT LUMBAR SPINE WO IVCONon 0 07-13-2023 CT LUMBAR SPINE WO IVCON * * *Final Report* * * DATE OF EXAM: Jul 13 2023 11:11AM [facility] 0508 - CT LUMBAR SPINE [...] are 5 lumbar-type vertebrae. Anatomic variant: None. Rn Procedures (topogram) images: Left femoroacetabular arthroplasty. Alignment: Mild [...] any questions regarding this interpretation, please call [phone]. If you are unable to reach us at the number above, please feel free to contact [facility] eRadiology at [phone]. [id number] Normal [facility] CT Lumbar spine WO contrasto n 07-13-2023 [facility] CNOVon 06-24-2023 CNOV Office Visit (SPNSMN ) LEELEE CEDILLO ([id number]) 1950 F Date Time Provider Department 06/24/23 [...] Ghanshyam Lombardi MD Referring Provider: SARA VICK [[id number]] Allergies As of Date: 06/24/2023 Noted Allergy Reaction SULFA (SULFONAMIDE ANTIBIOTICS) 07/16/2006 Date Reviewed: 06/24/2023 Reviewed by: Kaur Manzano MA - Fully Assessed Reason for Visit: New Patient [172] Primary Visit Diagnosis:Adjacent segment disease of lumbar spine with history of fusion procedure [M51.36, Z98.1] Other Visit Diagnosis:Chronic bilateral low back pain with bilateral sciatica [M54.42, M54.41, G89.29] Order(s):MRI THORACIC SPINE WO IVCON [5452642] Order #: [id number] FUTURE CT LUMBAR SPINE WO IVCON [[id number]] Order #: [id number] FUTURE Prescriptions as of 06/24/2023 - pantoprazole [...] Status:Closed by GHANSHYAM LOMBARDI on 06/24/23 Normal [facility] XR LUMBAR 4V AP/LAT/ FLEX/EX Ton 06-24-2023 [...] Number of different views (projections): 2 (accession [id number]), 4 (accession [id number]) COMPARISON: Radiographs dated 09/23/2021 RESULT: Counting reference: [...] changes with no evidence of hardware complication. Electrical Maintenance Supervisor: ELAINE Transcribe Date/Time: Jun 24 2023 12:52P Dictated by : LATASHA QUEZDAA MD This examination was interpreted and the report reviewed and electronically signed by: LATASHA QUEZADA MD on Jun 24 2023 12:55PM EST [id number] Normal [facility] XR Lumbar spine Views W flex ion and W extensionon 06-24-2023 [facility] XR SCOLIOSIS 2V PA STAND/LAT on [...] Number of different views (projections): 2 (accession [id number]), 4 (accession [id number]) COMPARISON: Radiographs dated 09/23/2021 RESULT: Counting reference: [...] changes with no evidence of hardware complication. Electrical Maintenance Supervisor: ELAINE Transcribe Date/Time: Jun 24 2023 12:52P Dictated by : LATASHA QUEZADA MD This examination was interpreted and the report reviewed and electronically signed by: LATASHA QUEZADA MD on Jun 24 2023 12:55PM EST [id number] [facility] Thor[facility] and lumbar spine Views for scoliosis W standingon 06-24-2023 [facility] VC CONSULT FOLLOWUPon 2022 VC CONSULT FOLLOWUP Patient: ITZEL CEDILLO Exam Date: 08/08/2022 : 1950 Gender:F Ordering : DR ALFRED UMAÑA M.D. Admission #: [id number] Family : Order #: [id number] CLICK HERE TO VIEW EXAM RADIOLOGY REPORT [...] Umaña MD on 08/08/2022 at 10:59 Normal [facility] VC EXT VENOUS LT LIMITEDon 0 08-08-2022 VC EXT VENOUS LT LIMITED Patient: LEELEE CEDILLO Exam Date: 08/08/2022 : 1950 Gender:F Ordering : DR ALFRED UMAÑA M.D. Admission #: [id number] Family : Order #: [id number] CLICK HERE TO VIEW EXAM RADIOLOGY REPORT [...] on 08/08/2022 at 09:42 Approved by: Alfred mUaña MD on 08/08/2022 at 09:43 Normal [facility] CHEMISTRYOrdered By: SYSTEM SYSTEM on 07-27-2022 Anion [...] Low 0.34 - 5.60 mcIU/mL [facility] Remisol HEMATOLOGYOrdered By: Tonya Martin on 07-27-2022 WBC corrected for nucl RBC Auto (Bld) [#/Vol] 7.8 E9/L Normal 4.0 - 11.0 E9/L [facility] HemeAutoSS CHEMISTRYOrdered By: SYSTEM SYSTEM on 07-26-2022 Troponin [...] rate/Area] mL/min/1.73 m2 Normal >=59mL/min/1 .73 m2 [facility] Chem S Glucose [Mass/Vol] 88 mg/dL Normal 55 - 199 mg/dL [facility] Remisol Magnesium [Mass/Vol] 2.0 mg/dL Normal 1.3 - 2 .4 mg/dL [facility] Potassium [Moles/Vol] 3.6 mmol/L Normal 3.5 - 5.3 mmol/L [facility] Sodium [Moles/Vol] 137 mmol/L Normal 135 - 145 mmol/L [facility] Urea nitrogen [Mass/Vol] 11 mg/dL Normal 5 - 21 mg/dL [facility] Remisol Urea nitrogen/Creatinine [Mass ratio] 14 mg/mg Normal 10 - 20 [facility] Remisol CHEMISTRYOrdered By: Lab ROP User on 07-26-2022 Glucose [Mass/Vol] 106 mg/dL High 55 - 99 mg/dL [facility] POC Subsection Comment on above: Result Comment: Parker wills RN/ POC Device SN [id number] Invalid Interpretation Code [facility] POC Subsection POC User ID [id number] Invalid Interpretation Code [facility] POC Subsection POC Username SHANKAR ABARCA Invalid Interpretation Code [facility] POC Subsection HEMATOLOGYOrdered By: SYSTEM SYSTEM on 07-26-2022 Basophils/100 [...] 6.7 fL Normal 6.4 - 10.8 fL [facility] HemeAutoSS Platelets (Bld) [#/Vol] 324.0 E9/L Normal 150.0 - 500.0 E9/L [facility] HemeAutoSS RBC (Bld) [#/Vol] 5.3 E12/L Normal 4.3 - 5.9 E12/L [facility] HemeAutoSS WBC corrected for nucl RBC Auto (Bld) [#/Vol] 14.6 E9/L High 4.0 - 11.0 E9/L [facility] HemeAutoSS URINALYSISOrdered By: Katerina Parker on 07-26-2022 Bacteria [...] PM) Normal Negative [facility] UA Auto SS Steele.plasma/Lithiu m.RBC (Bld) [Mass ratio] 0-3 /HPF Normal [...] [facility] UA Auto SS Urobilinogen Qn (U) 0.4965775 {Malu'U}/dL Normal 0.0 - 1.0 EU/dL [facility] UA Auto SS WBC Auto Ql (U) Trace *ABN* (07/26/22 4:49 PM) Invalid Interpretation Code Negative [facility] UA Auto SS WBC LM.HPF (Urine sed) [#/Area] 0-5 /HPF Normal 0-5/HPF [facility] UA Auto SS SURGICAL PATH REPORTon 07-25 SURGICAL PATH REPORT [facility] Department of Pathology [address] [place] [phone] Name: LEELEE CEDILLO : 1950 [facility] [id number] Number: Gender Female [facility] : n: Admit 71 years Attending ADELE FLEMING Age: Provider: Ordering ADELE FLEMING Provider: Consulti Surgical Pathology Report ng: ACCESSION: COLLECTED DATE/TIME: RECEIVED DATE/TIME: PATHOLOGIST: [id number] 07/24/2022 12:16 EDT 07/24/2022 12:16 EDT MICHELINE STERN MD Final Diagnosis Report for [facility] [place] RIGHT ANKLE, PUNCH BIOPSY: - FRAGMENT [...] MP:alexa 07/24/2022 Tissue pathology report for: [facility], [address] [place] [address]; ____ ____ Print 07/25/2022 15:48 EDT Number: Date/Time: [facility] Department of Pathology [address] [place] [phone] Name: LEELEE CEDILLO : 1950 [facility] [id number] Number: Gender Female Locatio [facility] : n: Admit 71 years Attending ADELE FLEMING Age: Provider: Ordering ADELE FLEMING Provider: Consulti Surgical Pathology Report ng: ACCESSION: COLLECTED DATE/TIME: RECEIVED DATE/TIME: PATHOLOGIST: [id number] 07/24/2022 12:16 EDT 07/24/2022 12:16 EDT MICHELINE STERN MD Gross Description PATHOLOGY SERVICES PROVIDED BY [facility] (CLIA #[id number]) in cooperation with [facility] at [address] [place] [address] ( CLIA #[id number]) Microscopic Diagnosis The final diagnosis is based on a microscopic exam of front office representative sections. Codes CPT CODE: 63368 ____ ____ Print 07/25/2022 15:48 EDT Number: Date/Time: Normal [facility] Comment on above: Performed By: #### [id number] #### [facility] Services [id number] [id number] Customer Project Manager: Jared Oh MD POINT OF CARE GLUCOSEon 04-0 Glucose [Mass/Vol] 114 mg/dL Critically high 74-106 [facility] Comment on above: Performed By: #### P OCGLUC #### [facility] [address] [address] [address] Salvador Yung Glucose [Mass/Vol] 112 mg/dL Critically high 74-106 [facility] Comment on above: Performed By: #### P OCGLUC #### [facility] [address] [address] [address] Salvador [facility]ung [facility] SARS-CoV-2 (COVID-19) RNA VIVIANA+probe Ql (Unsp spec) Not detected Normal NOT DETECTED [facility] Comment on above: Result Comment: This test is not yet approved or cleared by the [place] FDA. When there are no FDA-approved or cleared tests available, and other criteria are met, FDA can make tests available under an emergency access mechanism called an Emergency Use Authorization (EUA). The EUA for this test is supported by the [place] of Health and Human Service's (HHS's) declaration [...] SARS-CoV-2. Performed By: #### C VDTB #### [facility] [address] [place] [address] Dr. Salvador Yung PROF CHEM 8 (BAS METB)on Anion gap [Moles/Vol] 12.0 mmol/L Normal [facility] Comment on above: Performed By: #### B MP #### [facility] [address] [place] [address] Dr. Salvador Yung Calcium [Mass/Vol] 9.4 mg/dL Normal 8.5-10.1 [facility] Comment on above: Performed By: #### B MP #### [facility] [address] [place] [address] Dr. Salvador Yung Chloride [Moles/Vol] 100 mmol/L Normal 98-107 [facility] Comment on above: Performed By: #### B MP #### [facility] [address] [place] [address] Dr. Salvador Yung CO2 [Moles/Vol] 29.8 mmol/L Normal 21.0-32.0 [facility] Comment on above: Performed By: #### B MP #### [facility] [address] [place] [address] Dr. Salvador Yung Creatinine [Mass/Vol] 0.91 mg/dL Normal 0.55-1.02 [facility] Comment on above: Performed By: #### B MP #### [facility] [address] [place] [address] Dr. Salvador Yugn EGFR-AF BULGARIAN >60 Normal >=60 [facility] Comment on above: Performed By: #### B MP #### [facility] [address] [place] [address] Dr. Salvador Yung EGFR-NON AF BULGARIAN >60 Normal >=60 [facility] Comment on above: Performed By: #### B MP #### [facility] [address] [address] [address] Salvador Yung Glucose [Mass/Vol] 82 mg/dL Normal 74-106 [facility] Comment on above: Performed By: #### B MP #### [facility] [address] [address] [address] Salvador Yung Potassium [Moles/Vol] 3.8 mmol/L Normal 3.5-5.1 [facility] Comment on above: Performed By: #### B MP #### [facility] [address] [address] [address] Salvador Yung Sodium [Moles/Vol] 138 mmol/L Normal 136-145 [facility] Comment on above: Performed By: #### B MP #### [facility] [address] [address] [address] Salvador Yung Urea nitrogen [Mass/Vol] 12.0 mg/dL Normal 7.0-18.0 [facility] Comment on above: Performed By: #### B MP #### [facility] [address] [address] [address] Salvador Yung Urea nitrogen/Creatinine [Mass ratio] 13.2 mg/mg Normal [facility] Comment on above: Performed By: #### B MP #### [facility] [address] [address] [address] Salvador Yung VC INJ SCL JESSICA DERRICK HAND VEINSon 0 07-01-2022 VC INJ SCL JESSICA DERRICK HAND VEINS Patient: LEELEE CEDILLO Exam Date: 07/01/2022 : 1950 Gender:F Ordering : DR ALFRED UMAÑA M.D. Admission #: [id number] Family : Order #: [id number] CLICK HERE TO VIEW EXAM RADIOLOGY REPORT [...] on 07/01/2022 at 15:22 Normal [facility] VC CONSULT FOLLOWUPon 2022 VC CONSULT FOLLOWUP Patient: ITZEL CEDILLO Exam Date: 06/19/2022 : 1950 Gender:F Ordering : DR ALFRED UMAÑA M.D. Admission #: [id number] Family : Order #: [id number] CLICK HERE TO VIEW EXAM RADIOLOGY REPORT [...] on 06/19/2022 at 14:17 Normal [facility] VC EXT VENOUS LT LIMITEDon 0 06-19-2022 VC EXT VENOUS LT LIMITED Patient: LEELEE CEDILLO. Exam Date: 06/19/2022 : 1950 Gender:F Ordering : DR ALFRED UMAÑA M.D. Admission #: [id number] Family : Order #: [id number] CLICK HERE TO VIEW EXAM RADIOLOGY REPORT [...] Umaña MD on 06/19/2022 at 14:15 Normal [facility] VC INJ FOAM SCLERO W US MLTI on 06-13-2022 VC INJ FOAM SCLERO W US MLTI Patient: LEELEE CEDILLO Exam Date: 06/13/2022 : 1950 Gender:F Ordering : DR ALFRED UMAÑA M.D. Admission #: [id number] Family : Order #: [id number] CLICK HERE TO VIEW EXAM RADIOLOGY REPORT [...] (more content not included)... Normal [facility] VC CONSULT FOLLOWUPon 2022 VC CONSULT FOLLOWUP Patient: ITZEL CEDILLO Exam Date: 06/10/2022 : 1950 Gender:F Ordering : DR ALFRED UMAÑA M.D. Admission #: [id number] Family : Order #: [id number] CLICK HERE TO VIEW EXAM RADIOLOGY REPORT [...] on 06/10/2022 at 12:36 Normal [facility] VC EXT VENOUS RT LIMITEDon 0 06-10-2022 VC EXT VENOUS RT LIMITED Patient: LEELEE CEDILLO Exam Date: 06/10/2022 : 1950 Gender:F Ordering : DR ALFRED UMAÑA M.D. Admission #: [id number] Family : Order #: [id number] CLICK HERE TO VIEW EXAM RADIOLOGY REPORT [...] on 06/10/2022 at 12:33 Normal [facility] VC INJ FOAM SCLERO W US MLTI on 06-03-2022 VC INJ FOAM SCLERO W US MLTI Patient: LEELEE CEDILLO Exam Date: 06/03/2022 : 1950 Gender:F Ordering : DR ALFRED UMAÑA M.D. Admission #: [id number] Family : Order #: [id number] CLICK HERE TO VIEW EXAM RADIOLOGY REPORT PROCEDURE: VEIN CENTER INJECTION FOAM SCLEROSING SOLUTION WITH ULTRASOUND MULTIPLE VEINS COMPARISON: None. 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 Normal [facility] VC CONSULT FOLLOWUPon 2022 VC CONSULT FOLLOWUP Patient: ITZEL CEDILLOKimberlee Exam Date: 05/28/2022 : 1950 Gender:F Ordering : DR ALFRED UMAÑA M.D. Admission #: [id number] Family : Order #: [id number] CLICK HERE TO VIEW EXAM RADIOLOGY REPORT [...] on 05/28/2022 at 11:44 Normal [facility] VC EXT VENOUS RT LIMITEDon 0 05-28-2022 VC EXT VENOUS RT LIMITED Patient: LEELEE CEDILLO Exam Date: 05/28/2022 : 1950 Gender:F Ordering : DR ALFRED UMAÑA M.D. Admission #: [id number] Family : Order #: [id number] CLICK HERE TO VIEW EXAM RADIOLOGY REPORT [...] extends to distal lower leg. Thrombus in pest control service technician distal medial lower leg 2.8 mm from [...] on 05/28/2022 at 11:30 Normal [facility] CBC AUTO DIFFon 05-21-2022 BASO # 0.1 103/ul Normal 0.0-0.1 [facility] Comment on above: Performed By: #### C BC #### [facility] [address] [place] [address] Dr. Salvador Yung Basophils/100 WBC (Bld) 0.6 % Normal 0.2-2.0 [facility] Comment on above: Performed By: #### C BC #### [facility] [address] [place] [address] Dr. Salvador Yung EO # 0.1 103/ul Normal 0.0-0.7 [facility] Comment on above: Performed By: #### C BC #### [facility] [address] [address] [address] Salvador Yung Eosinophils/100 WBC (Bld) 0.6 % Critically low 0.9-7.0 [facility] Comment on above: Performed By: #### C BC #### [facility] [address] [place] [address] Dr. Salvador Yung Erythrocyte distribution width (RBC) [Ratio] 12.4 % Normal 11.0-15.0 [facility] Comment on above: Performed By: #### C BC #### [facility] [address] [place] [address] Dr. Salvador Yung Hematocrit (Bld) [Volume fraction] 43.1 % Normal 36.0-48.0 [facility] Comment on above: Performed By: #### C BC #### [facility] [address] [place] [address] Dr. Salvador Yung Hemoglobin (Bld) [Mass/Vol] 13.8 g/dL Normal 12.0-16.0 [facility] Comment on above: Performed By: #### C BC #### [facility] [address] [place] [address] Dr. Salvador Yung IG # 0.06 10e3/ul Critically high 0.00-0.03 [facility] Comment on above: Performed By: #### C BC #### [facility] [address] [place] [address] Dr. Salvador Yung IG % 0.7 % Critically high 0.0-0.5 [facility] Comment on above: Performed By: #### C BC #### [facility] [address] [place] [address] Dr. Salvador Yung LYMPH # 1.7 103/ul Normal 1.2-3.8 [facility] Comment on above: Performed By: #### C BC #### [facility] [address] [place] [address] Dr. Salvador Yung Lymphocytes/100 WBC (Bld) 20.2 % Critically low 20.5-60.0 [facility] Comment on above: Performed By: #### C BC #### [facility] [address] [place] [address] Dr. Salvador Yung MANUAL DIFF REQ NO Normal [facility] Comment on above: Performed By: #### C BC #### [facility] [address] [place] [address] Dr. Salvador Yung MCH (RBC) [Entitic mass] 30.1 pg Normal 26.7-34.0 [facility] Comment on above: Performed By: #### C BC #### [facility] [address] [address] [address] Salvador Yung MCHC (RBC) [Mass/Vol] 32.0 g/dL Normal 29.9-35.2 [facility] Comment on above: Performed By: #### C BC #### [facility] [address] [address] [address] Salvador Yung MCV (RBC) [Entitic vol] 93.9 fL Normal 81.0-99.0 [facility] Comment on above: Performed By: #### C BC #### [facility] [address] [address] [address] Salvador Yung MONO # 0.5 103/ul Normal 0.3-0.8 [facility] Comment on above: Performed By: #### C BC #### [facility] [address] [place] [address] Dr. Salvador Yung Monocytes/100 WBC (Bld) 6.1 % Normal 1.7-12.0 [facility] Comment on above: Performed By: #### C BC #### [facility] [address] [place] [address] Dr. Salvador Yung NEUT # 6.1 103/ul Normal 1.4-6.5 [facility] Comment on above: Performed By: #### C BC #### [facility] [address] [place] [address] Dr. Salvador Yung Neutrophils/100 WBC (Bld) 71.8 % Normal 43.0-75.0 [facility] Comment on above: Performed By: #### C BC #### [facility] [address] [place] [address] Dr. Salvador Yung Platelet mean volume (Bld) [Entitic vol] 8.2 fL Critically low 9.5-13.5 [facility] Comment on above: Performed By: #### C BC #### [facility] [address] [place] [address] Dr. Salvador Yung PLT 246 103/ul Normal 150-450 [facility] Comment on above: Performed By: #### C BC #### [facility] [address] [address] [address] Salvador Yung RBC 4.59 106/ul Normal 4.20-5.40 [facility] Comment on above: Performed By: #### C BC #### [facility] [address] [address] [address] Salvador Yung WBC 8.5 103/ul Normal 4.0-11.0 [facility] Comment on above: Performed By: #### C BC #### [facility] [address] [address] [address] Salvador Yung FREE T3on 05-21-2022 FREE T3 2.14 pg/mlL Critically low 2.18-3.98 [facility] Comment on above: Performed By: #### P OCGLUC #### [facility] [address] [place] [address] Dr. Salvador Yung GLYCOHEMOGLOBIN A1Con 2022 ADA RECOMMENDATION SEE BELOW Normal The [facility] Comment on above: Result Comment: ADA RECOMMENDED LIMIT 4.0 - 6.0 ADA THERAPEUTIC TARGET < 7.0 ACTION SUGGESTED > 7.0 Performed By: #### P OCGLUC #### [facility] [address] [address] [address] Salvador Yung Glucose [Mass/Vol] 100 mg/dL Normal [facility] Comment on above: Performed By: #### P OCGLUC #### [facility] [address] [address] [address] Salvador Yung HbA1c (Bld) [Mass fraction] 5.1 % Normal 4.5-6.2 [facility] Comment on above: Performed By: #### P OCGLUC #### [facility] [address] [address] [address] Salvador Yung LIPID PROFILEon 05-21-2022 CHOL-HDL RATIO NORM SEE BELOW Normal [facility] Comment on above: Result Comment: 3.3 - 4.4 LOW RISK 4.4 - 7.1 AVERAGE RISK 7.1 - 11.0 MODERATE RISK >11.0 HIGH RISK Performed By: #### P OCGLUC #### [facility] [address] [place] [address] Dr. Salvador Yung Cholesterol [Mass/Vol] 164 mg/dL Normal <=200 [facility] Comment on above: Performed By: #### P OCGLUC #### [facility] [address] [address] [address] Salvador Yung Cholesterol in HDL [Mass/Vol] 61 mg/dL Critically high 40-60 [facility] Comment on above: Performed By: #### P OCGLUC #### [facility] [address] [address] [address] Salvador Yung Cholesterol in LDL [Mass/Vol] 90.2 mg/dL Normal [facility] Comment on above: Performed By: #### P OCGLUC #### [facility] [address] [address] [address] Salvador Yung Cholesterol.total/Cho lesterol in HDL [Mass ratio] 2.7 {ratio} Normal [facility] Comment on above: Performed By: #### P OCGLUC #### [facility] [address] [address] [address] Salvador Yung HDL NORMAL > or = 60 mg/dl - LO W CARDIOVASCULAR RISK <40 mg/dl - HIGH CARDIOVASCULAR RISK Normal [facility] Comment on above: Performed By: #### P OCGLUC #### [facility] [address] [address] [address] Salvador Yung LDL CALC NORMAL SEE BELOW Normal [facility] Comment on above: Result Comment: <100 mg/dl OPTIMAL 100 - 129 mg/dl NEAR OR ABOVE OPTIMAL 130 - 159 mg/dl BORDERLINE HIGH 160 - 189 mg/dl HIGH >190 mg/dl VERY HIGH Performed By: #### P OCGLUC #### [facility] [address] [address] [address] Salvador Yung Triglyceride [Mass/Vol] 64 mg/dL Normal <=150 [facility] Comment on above: Performed By: #### P OCGLUC #### [facility] [address] [address] [address] Salvador Yung VLDL CALC 12.8 mg/dL Normal [facility] Comment on above: Performed By: #### P OCGLUC #### [facility] [address] [address] [address] Salvador Yung PROF 14(COMP METB)on 023 Albumin [Mass/Vol] 3.2 g/dL Critically low 3.4-5.0 [facility] Comment on above: Performed By: #### P OCGLUC #### [facility] [address] [address] [address] Salvador Yung Albumin/Globulin [Mass ratio] 0.7 {ratio} Normal [facility] Comment on above: Performed By: #### P OCGLUC #### [facility] [address] [place] [address] Dr. Salvador Yung ALP [Catalytic activity/Vol] 68 U/L Normal 46-116 [facility] Comment on above: Performed By: #### P OCGLUC #### [facility] [address] [place] [address] Dr. Salvador Yung ALT [Catalytic activity/Vol] 25 U/L Normal 14-59 [facility] Comment on above: Performed By: #### P OCGLUC #### [facility] [address] [place] [address] Dr. Salvador Yung Anion gap [Moles/Vol] 11.8 mmol/L Normal [facility] Comment on above: Performed By: #### P OCGLUC #### [facility] [address] [place] [address] Dr. Salvador Yung AST [Catalytic activity/Vol] 20 U/L Normal 15-37 [facility] Comment on above: Performed By: #### P OCGLUC #### [facility] [address] [place] [address] Dr. Salvador Yung Bilirubin [Mass/Vol] 0.5 mg/dL Normal 0.2-1.0 [facility] Comment on above: Performed By: #### P OCGLUC #### [facility] [address] [place] [address] Dr. Salvador uYng Calcium [Mass/Vol] 8.9 mg/dL Normal 8.5-10.1 [facility] Comment on above: Performed By: #### P OCGLUC #### [facility] [address] [address] [address] Salvador Yung Chloride [Moles/Vol] 105 mmol/L Normal 98-107 [facility] Comment on above: Performed By: #### P OCGLUC #### [facility] [address] [address] [address] Salvador Yung CO2 [Moles/Vol] 29.9 mmol/L Normal 21.0-32.0 [facility] Comment on above: Performed By: #### P OCGLUC #### [facility] [address] [address] [address] Salvador Yung Creatinine [Mass/Vol] 0.74 mg/dL Normal 0.55-1.02 [facility] Comment on above: Performed By: #### P OCGLUC #### [facility] [address] [address] [address] Salvador Yung EGFR-AF BULGARIAN >60 Normal >=60 [facility] Comment on above: Performed By: #### P OCGLUC #### [facility] [address] [address] [address] Salvador Yung EGFR-NON AF BULGARIAN >60 Normal >=60 [facility] Comment on above: Performed By: #### P OCGLUC #### [facility] [address] [address] [address] Salvador Yung Globulin (S) [Mass/Vol] 4.3 g/dL Normal [facility] Comment on above: Performed By: #### P OCGLUC #### [facility] [address] [address] [address] Salvador Yung Glucose [Mass/Vol] 88 mg/dL Normal 74-106 [facility] Comment on above: Performed By: #### P OCGLUC #### [facility] [address] [address] [address] Salvador Yung Potassium [Moles/Vol] 3.7 mmol/L Normal 3.5-5.1 [facility] Comment on above: Performed By: #### P OCGLUC #### [facility] [address] [address] [address] Salvador Yung Protein [Mass/Vol] 7.5 g/dL Normal 6.4-8.2 [facility] Comment on above: Performed By: #### P OCGLUC #### [facility] [address] [address] [address] Salvador Yung Sodium [Moles/Vol] 143 mmol/L Normal 136-145 [facility] Comment on above: Performed By: #### P OCGLUC #### [facility] [address] [address] [address] Salvador Yung Urea nitrogen [Mass/Vol] 11.0 mg/dL Normal 7.0-18.0 [facility] Comment on above: Performed By: #### P OCGLUC #### [facility] [address] [place] [address] Dr. Salvador Yung Urea nitrogen/Creatinine [Mass ratio] 14.9 mg/mg Normal [facility] Comment on above: Performed By: #### P OCGLUC #### [facility] [address] [address] [address] Salvador Yung T4on 05-21-2022 T4 [Mass/Vol] 11.60 ug/dL Normal 4.80-13.90 [facility] Comment on above: Performed By: #### P OCGLUC #### [facility] [address] [place] [address] Dr. Salvador Yung TSHon 05-21-2022 TSH 0.165 uIU/mL Critically low 0.358-3.740 [facility] Comment on above: Performed By: #### P OCGLUC #### [facility] [address] [place] [address] Dr. Salvador Yung VC ENDOVENOUS ABL 1ST V RTon 05-21-2022 VC ENDOVENOUS ABL 1ST V RT Patient: LEELEE CEDILLO Exam Date: 05/21/2022 : 1950 Gender:F Ordering : DR ALFRED UMAÑA M.D. Admission #: [id number] Family : Order #: [id number] CLICK HERE TO VIEW EXAM RADIOLOGY REPORT [...] Umaña MD on 05/21/2022 at 13:51 Normal [facility] VITAMIN D 25 OHon 05-21-2022 VIT D 25-OH 25.1 ng/mL Normal [facility] Comment on above: Performed By: #### V ITAD #### [facility] [address] [place] [address] Dr. Salvador Yung VIT D RANGES SEE BELOW [facility] Comment on above: Result Comment: <20 ng/mL Vit D deficient 20 - <30 ng/mL Vit D insufficient 30 - 100 ng/mL Vit D sufficient >100 ng/mL Potential Toxicity Performed By: #### V ITAD #### [facility] [address] [place] [address] Dr. Salvador Yung XR HIP LT 2 [...] by: MARI LORENZO Date: 2022-05-21 16:26 Normal [facility] VC COMP CONSULTATIONon 05-01 VC COMP CONSULTATION Patient: REAGAN CEDILLO Exam Date: 05/01/2022 : 1950 Gender:F Ordering : DR. ADELE FLEMING D.P.M. 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 CEAP: C6, EC, AP, NV PLAN: 1. Continued use of compression stockings 2. Elevated legs and increased physical activity symptomatic relief 3. Endovenous laser ablation of right small saphenous vein and pest control service technician vein. 4. Microfoam chemical ablation of dilated, [...] on 05/01/2022 at 15:27 Normal [facility] VC VENOUS REFLUX SAMI LMTon 0 05-01-2022 VC VENOUS REFLUX SAMI LMT Patient: LEELEE CEDILLO Exam Date: 05/01/2022 : 1950 Gender:F Ordering : DR. ADLEE FLEMING D.P.MKimberlee Admission #: [id number] Family : DR ALFRED UMAÑA M.D. 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 Mid/med calf 3.5mm with 0s reflux. Tech Note: GSV has been previously stripped. Patent varicose vein mid/med calf 2.3mm with 0.5s reflux. Patent varicose vein prox/med calf 3.4mm with 1.2s reflux. Patent varicose vein dist/med thigh 5.4mm with 0.8s reflux. CONCLUSION: 1. Dilated, incompetent right small saphenous vein. 2. Dilated, incompetent pest control service technician veins and bilateral lower extremity branch saphenous varicosities. 3. Consultation for endovenous laser ablation is recommended. Dictated by: Julio Lobato M.D. on 05/01/2022 at 14:06 Approved by: Julio Lobato M.D. on 05/01/2022 at 14:28 Normal [facility] BLEEDING TIMEon 11-17-2022 BLEEDING TIME 10.5 min Critically high 1.0-8.0 The [facility] Comment on above: Performed By: #### B LTM #### [facility] Laboratory [address] [place] [address] Dr. Salvador Yung CBC AUTO DIFFon 03-06-2022 BASO # 0.1 103/ul Normal 0.0-0.1 [facility] Comment on above: Performed By: #### C BC #### [facility] [address] [place] [address] Dr. Salvador Yung Basophils/100 WBC (Bld) 0.7 % Normal 0.2-2.0 [facility] Comment on above: Performed By: #### C BC #### [facility] [address] [place] [address] Dr. Salvador Yung EO # 0.1 103/ul Normal 0.0-0.7 [facility] Comment on above: Performed By: #### C BC #### [facility] [address] [place] [address] Dr. Salvador Yung Eosinophils/100 WBC (Bld) 0.7 % Critically low 0.9-7.0 [facility] Comment on above: Performed By: #### C BC #### [facility] [address] [place] [address] Dr. Salvador Yung Erythrocyte distribution width (RBC) [Ratio] 12.9 % Normal 11.0-15.0 [facility] Comment on above: Performed By: #### C BC #### [facility] [address] [place] [address] Dr. Salvador Yung Hematocrit (Bld) [Volume fraction] 41.3 % Normal 36.0-48.0 [facility] Comment on above: Performed By: #### C BC #### [facility] [address] [place] [address] Dr. Salvador Yung Hemoglobin (Bld) [Mass/Vol] 13.7 g/dL Normal 12.0-16.0 [facility] Comment on above: Performed By: #### C BC #### [facility] [address] [address] [address] Salvador Yung IG # 0.05 10e3/ul Critically high 0.00-0.03 [facility] Comment on above: Performed By: #### C BC #### [facility] [address] [place] [address] Dr. Salvador Yung IG % 0.7 % Critically high 0.0-0.5 [facility] Comment on above: Performed By: #### C BC #### [facility] [address] [place] [address] Dr. Salvador Yung LYMPH # 1.4 103/ul Normal 1.2-3.8 [facility] Comment on above: Performed By: #### C BC #### [facility] [address] [place] [address] Dr. Salvador Yung Lymphocytes/100 WBC (Bld) 18.9 % Critically low 20.5-60.0 [facility] Comment on above: Performed By: #### C BC #### [facility] [address] [place] [address] Dr. Salvador Yung MANUAL DIFF REQ NO Normal [facility] Comment on above: Performed By: #### C BC #### [facility] [address] [place] [address] Dr. Salvador Yung MCH (RBC) [Entitic mass] 30.3 pg Normal 26.7-34.0 [facility] Comment on above: Performed By: #### C BC #### [facility] [address] [place] [address] Dr. Salvador Yung MCHC (RBC) [Mass/Vol] 33.2 g/dL Normal 29.9-35.2 [facility] Comment on above: Performed By: #### C BC #### [facility] [address] [place] [address] Dr. Salvador Yung MCV (RBC) [Entitic vol] 91.4 fL Normal 81.0-99.0 [facility] Comment on above: Performed By: #### C BC #### [facility] [address] [place] [address] Dr. Salvador Yung MONO # 0.7 103/ul Normal 0.3-0.8 [facility] Comment on above: Performed By: #### C BC #### [facility] [address] [place] [address] Dr. Salvador Yung Monocytes/100 WBC (Bld) 9.9 % Normal 1.7-12.0 [facility] Comment on above: Performed By: #### C BC #### [facility] [address] [place] [address] Dr. Salvador Yung NEUT # 5.2 103/ul Normal 1.4-6.5 [facility] Comment on above: Performed By: #### C BC #### [facility] [address] [place] [address] Dr. Salvador Yung Neutrophils/100 WBC (Bld) 69.1 % Normal 43.0-75.0 [facility] Comment on above: Performed By: #### C BC #### [facility] [address] [place] [address] Dr. Salvador Yung Platelet mean volume (Bld) [Entitic vol] 7.9 fL Critically low 9.5-13.5 [facility] Comment on above: Performed By: #### C BC #### [facility] [address] [place] [address] Dr. Salvador Yung PLT 223 103/ul Normal 150-450 [facility] Comment on above: Performed By: #### C BC #### [facility] [address] [place] [address] Dr. Salvador Yung RBC 4.52 106/ul Normal 4.20-5.40 [facility] Comment on above: Performed By: #### C BC #### [facility] [address] [place] [address] Dr. Salvador Yung WBC 7.5 103/ul Normal 4.0-11.0 [facility] Comment on above: Performed By: #### C BC #### [facility] [address] [place] [address] Dr. Salvador Yung IRONon 03-06-2022 Iron [Mass/Vol] 83.0 ug/dL Normal 50.0-170.0 [facility] Comment on above: Performed By: #### I ESTEFANY #### [facility] [address] [place] [address] Dr. Salvador Yung PROTIMEon 03-06-2022 INR Coag (PPP) [Relative time] 0.95 {INR} Normal [facility] Comment on above: Performed By: #### P TT, PT #### [facility] [address] [place] [address] Dr. Salvador Yung INR GUIDELINES SEE BELOW Normal [facility] Comment on above: Result Comment: YOJANA RED INR: 2.0 - 3.0 CONDITIONS NOT LISTED BELOW 2.5 - 3.5 FOR PROSTHETIC HEART VALVE REPLACEMENT 2.5 - 3.5 RECURRENT THROMBOSIS Performed By: #### P TT, PT #### [facility] [address] [place] [address] Dr. Salvador Yung PT Coag (PPP) [Time] 10.3 s Normal 9.0-11.6 [facility] Comment on above: Performed By: #### P TT, PT #### [facility] [address] [place] [address] Dr. Salvador Yung PTTon 03-06-2022 aPTT Coag (Bld) [Time] 22.1 s Critically low 22.3-36.2 [facility] Comment on above: Performed By: #### P TT, PT #### [facility] [address] [place] [address] Dr. Salvador Yung SCREENING MAMMOGRAM W/DANIEL, BILATERAL*on [...] IS VERY IMPORTANT TO YOUR HEALTH. CURRENT [employer] GUIDELINES RECOMMENDS ANNUAL MAMMOGRAPHY BEGINNING AT AGE 41. THIS FACILITY USUALLY USES A REMINDER SYSTEM TO ENSURE ALL POSITIONS RECEIVED REMINDER NOTIFICATIONS AT THE TIME BASED ON THE RECOMMENDATIONS OF THIS EXAM. Report reported and signed by Julio Martines on 02/28/2022 1602 Normal [facility] Specialist Covid-19 PCR (CVDTBH)on 12-19 SARS-CoV-2 (COVID-19) RNA VIVIANA+probe Ql (Unsp spec) Not detected Normal NOT DETECTED [facility] Comment on above: Result Comment: This test is not yet approved or cleared by the [place] FDA. When there are no FDA-approved or cleared tests available, and other criteria are met, FDA can make tests available under an emergency access mechanism called an Emergency Use Authorization (EUA). The EUA for this test is supported by the [place] of Health and Human Service's (HHS's) declaration [...] Performed By: #### P OCGLUC #### [facility] [address] [place] [address] Dr. Salvador Yung MRI LSPINE WO CONon 12-11-19 MRI LSCAMDEN WO CON HISTORY: Chronic low back pain [...] LAUREN Date: 2021-12-10 12:11 Normal [facility] COVID-19 Positive/Negativeon 05-04-2020 COVID-19 Positive/Negative Negative Negative [facility] Comment on above: Testing for SARS-CoV -2 by RT-PCRThis test was developed and its performance characteristics determined by [employer] ([employer]) and validated at the [facility]. This test has not been FDA [...] Otheron 05-04-2020 Coronavirus 2019 PCR Interp N/A [facility] Automated basophil %on 04-24 Basophils/100 WBC (Bld) 0.6 % [facility] Automated basophil counton 0 04-24-2020 Basophils (Bld) [#/Vol] 0.0 10*3/uL 0.0-0.2 [facility] Automated blood lymphocyte c ount (number/volume)on 04-24-2020 Lymphocytes (Bld) [#/Vol] 1.0 10*3/uL 1.00-4.8 [facility] Automated blood lymphocyte c ount as percentage of total leukocyteson 04-24-2020 Lymphocytes/100 WBC (Bld) 17.0 % [facility] Automated blood monocyte cou nton 04-24-2020 Monocytes (Bld) [#/Vol] 0.3 10*3/uL 0.0-0.8 [facility] Automated blood platelet cou nt (count/volume)on 04-24-2020 Platelets (Bld) [#/Vol] 224 10*3/uL 150-450 [facility] Automated blood platelet vikki n volume measurementon 04-24-2020 Platelet mean volume (Bld) [Entitic vol] 7.2 fL 6.3-10.7 [facility] Automated eosinophil %on Eosinophils/100 WBC (Bld) 3.5 % [facility] Automated eosinophil counton 04-24-2020 Eosinophils (Bld) [#/Vol] 0.2 10*3/uL 0.0-0.45 [facility] Automated erythrocyte distri bution width ratioon 04-24-2020 Erythrocyte distribution width (RBC) [Ratio] 13.0 % 11.9-15.3 [facility] Automated erythrocyte mean c orpuscular hemoglobin (mass per erythrocyte)on 04-24-2020 MCH (RBC) [Entitic mass] 27.7 pg 24.7-34.3 [facility] Automated erythrocyte mean c orpuscular hemoglobin concentration measurement (mass/volon 04-24-2020 MCHC (RBC) [Mass/Vol] 33.2 g/dL 32.0-35.0 [facility] Automated erythrocyte mean c orpuscular volumeon 04-24-2020 MCV (RBC) [Entitic vol] 83.3 fL 80-100 [facility] Automated erythrocytes count in urine sediment (number/area)on 04-24-2020 RBC Auto (Urine sed) [#/Area] None seen [HPF] [facility] Automated leukocytes count i n urine sediment (number/area)on 04-24-2020 WBC Auto (Urine sed) [#/Area] 0-1 [HPF] [facility] Automated monocyte %on 04-24 Monocytes/100 WBC (Bld) 6.1 % [facility] Automated neutrophil %on Neutrophils/100 WBC (Bld) 72.8 % [facility] Automated urine color determ inationon 04-24-2020 Color (U) Yellow Yellow [facility] Blood erythrocytes automated count (number/volume)on 04-24-2020 RBC (Bld) [#/Vol] 4.50 10*6/uL 3.60-5.00 [facility] Blood hemoglobin measurement (mass/volume)on 04-24-2020 Hemoglobin (Bld) [Mass/Vol] 12.5 g/dL 11.8-15.4 [facility] Blood leukocytes automated c ount (number/volume)on 04-24-2020 WBC (Bld) [#/Vol] 5.7 10*3/uL 3.8-11.6 [facility] Blood neutrophil count by au tomated method (number/volume)on 04-24-2020 Neutrophils (Bld) [#/Vol] 4.2 10*3/uL 1.8-7.7 [facility] Estimated glomerular filtrat ion rate (GFR) non- Americanon 04-24-2020 GFR/1.73 sq M predicted among non-blacks MDRD (S/P/Bld) [Vol rate/Area] mL/min/{1.73_m2} [facility] Hematocrit [Volume Fraction] of Blood by Automated counton 04-24-2020 Hematocrit (Bld) [Volume fraction] 37.5 % 34.0-46.4 [facility] Otheron 04-24-2020 GFR/1.73 sq M.predicted MDRD (S/P/Bld) [Vol rate/Area] mL/min/{1.73_m2} [facility] Comment on above: GFR estimated refere nce range: According to KDOQI guidelines, <60 ml/min/1.73m2 is sufficient to diagnose a patient with chronic kidney disease. Nucleated RBC/100 WBC (Bld) [Ratio] 0.1 % 0-0.5 [facility] Creatinine Clearance (Chem N/A [facility] Serum or plasma calcium kelly urement (mass/volume)on 04-24-2020 Calcium [Mass/Vol] 9.3 mg/dL 8.2-10.2 [facility] Serum or plasma chloride vikki surement (moles/volume)on 04-24-2020 Chloride [Moles/Vol] 101 mmol/L 95-114 [facility] Serum or plasma creatinine m easurement with calculation of estimated glomerular filtron 04-24-2020 Creatinine [Mass/Vol] 0.88 mg/dL 0.44-1.03 [facility] Serum or plasma glucose kelly urement (mass/volume)on 04-24-2020 Glucose [Mass/Vol] 116 mg/dL 70-100 [facility] Comment on above: ADA recommended refe rence rangeRandom Glucose Reference Range is dependent on time and content of last meal. Glucose of more than 200 mg/dL in a nonstressed, ambulatory subject supports the diagnosis of Diabetes Mellitus. Serum or plasma potassium me asurement (moles/volume)on 04-24-2020 Potassium [Moles/Vol] 3.8 mmol/L 3.5-5.1 [facility] Serum or plasma sodium measu rement (moles/volume)on 04-24-2020 Sodium [Moles/Vol] 136 mmol/L 136-146 [facility] Serum or plasma total carbon dioxide measurement (moles/volume)on 04-24-2020 CO2 [Moles/Vol] 23.1 mmol/L 22.0-30.0 [facility] Serum or plasma urea nitroge n measurement (mass/volume)on 04-24-2020 Urea nitrogen [Mass/Vol] 10 mg/dL 9-23 [facility] Specific gravity of Urine by Automated test stripon 04-24-2020 Specific gravity (U) [Rel density] 1.007 1.001-1.030 [facility] Squamous epithelial cells de tection in urine sediment by light microscopyon 04-24-2020 Epithelial cells.squamous LM Ql (Urine sed) None seen [HPF] [facility] Urinalysison 04-24-2020 Hyaline casts LM Ql (Urine sed) None seen [LPF] [facility] Urine bacteria detection by automated methodon 04-24-2020 Bacteria Auto Ql (U) None seen None Seen [facility] Urine clarity by refractomet ry automatedon 04-24-2020 Clarity Refractometry automated (U) Clear Clear [facility] Urine glucose measurement by automated test strip (mass/volume)on 04-24-2020 Glucose Auto test strip (U) [Mass/Vol] Normal mg/dL Normal [facility] Urine hemoglobin detection b y automated test stripon 04-24-2020 Hemoglobin Auto test strip Ql (U) Negative Negative [facility] Urine ketones measurement by automated test strip (mass/volume)on 04-24-2020 Ketones (U) [Mass/Vol] Negative Negative [facility] Urine leukocyte esterase det ection by automated test stripon 04-24-2020 Leukocyte esterase Auto test strip Ql (U) 1+ Negative [facility] Urine nitrite detection by t est stripon 04-24-2020 Nitrite Ql (U) Negative Negative [facility] Urine pH measurement by auto mated test stripon 04-24-2020 pH (U) 5.5 [pH] 5.0-9.0 [facility] Urine protein measurement by automated test strip (mass/volume)on 04-24-2020 Protein (U) [Mass/Vol] Negative Negative [facility] Urine total bilirubin detect ion by test stripon 04-24-2020 Bilirubin Ql (U) Negative Negative [facility] Urine urobilinogen measureme nt by automated test strip (mass/volume)on 04-24-2020 Urobilinogen (U) [Mass/Vol] Normal mg/dL Normal [facility] CT L-SPINE WO CONTRASTon CT L-SPINE WO CONTRAST Patient Name: LEELEE CEDILLO STUDY: CT L-SPINE WO CONTRAST;; 10/13/2018 12:05 pm INDICATION: Low back pain LUMBAGO. COMPARISON: None. ACCESSION NUMBER(S): [id number] ORDERING CLINICIAN: HAMLET GILMAN TECHNIQUE: Axial sections [...] combination with facet joint arthropathy noted causing [id number] left neural foramina narrowing. Transpedicular screws of [...] left lateral recess, left neural foramina and [id number] right neural foramina narrowing. IMPRESSION: Postoperative and [...] Electronically signed by: PATRICIA MURRAY MD Normal [facility] SPINE, ENTIRE THORACIC/LUMBA R, INCLUDE [...] pm INDICATION: LUMBAGO. COMPARISON: None ACCESSION NUMBER(S): [id number]; [id number] ORDERING CLINICIAN: HAMLET GILMAN FINDINGS: Long radiograph [...] Electronically signed by: ADELE BA MD Normal [facility] SPINE, LUMBOSACRAL; CMPLT(BE NDING)on 10-13-2018 SPINE, LUMBOSACRAL; CMPLT(BENDING) Patient Name: LEELEE CEDILLO STUDY: SPINE, ENTIRE THORACIC/LUMBAR, INCLUDE SKULL, CERVICAL ANSD SACRAL SPINE WHEN PERFORMED 2 OR 3 VIEW; SPINE, LUMBOSACRAL CMPLT(BENDING); 10/13/2018 12:05 pm INDICATION: LUMBAGO. COMPARISON: None ACCESSION NUMBER(S): [id number]; [id number] ORDERING CLINICIAN: HAMLET GILMAN FINDINGS: Long radiograph [...] Electronically signed by: ADELE BA MD Normal [facility] Vital Signs Date Time Vital Sign Value Performing Clinician Facility 08-07-2023 11:44-0400 Diastolic blood pressure 86 mm[Hg] MD Sara Vick Work Phone: [facility] 08-07-2023 11:44-0400 Heart rate 67 /min MD Sara Vick Work Phone: [facility] 08-07-2023 11:44-0400 SaO2% (BldA) [Mass fraction] 99 % MD Sara Vick Work Phone: [facility] 08-07-2023 11:44-0400 Systolic blood pressure 132 mm[Hg] MD Sara Vick Work Phone: [facility] 07-01-2023 10:26-0400 Body height 172.72 cm MD Sara Vick Work Phone: [facility] 07-01-2023 10:26-0400 Body mass index (BMI) [Ratio] 29.5 kg/m2 MD Sara Vick Work Phone: [facility] 07-01-2023 10:26-0400 Body temperature 97.2 [degF] MD Sara Vick Work Phone: [facility] 07-01-2023 10:26-0400 Body weight 87.99 kg MD Sara Vick Work Phone: [facility] 07-01-2023 10:26-0400 Diastolic blood pressure 78 mm[Hg] MD Sara Vick Work Phone: [facility] 07-01-2023 10:26-0400 Heart rate 78 /min MD Sara Vick Work Phone: [facility] 07-01-2023 10:26-0400 SaO2% (BldA) [Mass fraction] 98 % MD Sara Vick Work Phone: [facility] 07-01-2023 10:26-0400 Systolic blood pressure 120 mm[Hg] MD Sara Vick Work Phone: [facility] 06-30-2023 14:39-0400 Diastolic blood pressure 70 mm[Hg] MD Sara Vick Work Phone: [facility] 06-30-2023 14:39-0400 Heart rate 75 /min MD Sara Vick Work Phone: [facility] 06-30-2023 14:39-0400 SaO2% (BldA) [Mass fraction] 99 % MD Sara Vick Work Phone: [facility] 06-30-2023 14:39-0400 Systolic blood pressure 110 mm[Hg] MD Sara Vick Work Phone: [facility] 06-24-2023 13:13-0500 Body height 172.7 cm Ghanshyam Lombardi MD Work Phone: [facility] 06-24-2023 13:13-0500 Body weight 87.4 kg Ghanshyam Lombardi MD Work Phone: [facility] 06-24-2023 13:13-0500 Diastolic blood pressure 56 mm[Hg] Ghanshyam Lombardi MD Work Phone: [facility] 06-24-2023 13:13-0500 Heart rate 93 /min Ghanshyam Lombardi MD Work Phone: [facility] 06-24-2023 13:13-0500 Respiratory rate 18 /min Ghanshyam Lombardi MD Work Phone: [facility] 06-24-2023 13:13-0500 SaO2% (BldA) [Mass fraction] 97 % Ghanshyam Lombardi MD Work Phone: [facility] 06-24-2023 13:13-0500 Systolic blood pressure 115 mm[Hg] Ghanshyam Lombardi MD Work Phone: [facility] 05-15-2023 09:00-0500 Body weight 90.18 kg Larry Brown Other [facility] [employer] Other 05-15-2023 09:00-0500 Body weight 90.17 kg MD Sara Vick Work Phone: [facility] 05-15-2023 09:00-0500 Diastolic blood pressure 86 mm[Hg] Larry Brown Other [facility] 05-15-2023 09:00-0500 SaO2% (BldA) [Mass fraction] 99 % Larry Brown Other [facility] [employer] Other 05-15-2023 09:00-0500 Systolic blood pressure 148 mm[Hg] Larry Brown Other [facility] 05-13-2023 11:15-0500 Body height 175.26 cm Kiran Kessler Other [facility] 05-13-2023 11:15-0500 Body mass index (BMI) [Ratio] 29.24 kg/m2 Kiran Kessler Other [employer] Other 05-13-2023 11:15-0500 Body temperature 96.9 [degF] Kiran Mendozajudy Other [employer] Other 05-13-2023 11:15-0500 Body weight 89.81 kg Kiran Mendozajudy Other [facility] 05-13-2023 11:15-0500 Diastolic blood pressure 80 mm[Hg] Kiran Checo Other [facility] 05-13-2023 11:15-0500 SaO2% (BldA) [Mass fraction] 99 % Kiran Checo Other [employer] Other 05-13-2023 11:15-0500 Systolic blood pressure 140 mm[Hg] Kiran Checo Other [facility] 04-03-2023 10:15-0500 Body height 175.26 cm Larry Brown Other [employer] Other 04-03-2023 10:15-0500 Diastolic blood pressure 74 mm[Hg] Larry Brown Other [employer] Other 04-03-2023 10:15-0500 SaO2% (BldA) [Mass fraction] 99 % Larry Brown Other [employer] Other 04-03-2023 10:15-0500 Systolic blood pressure 118 mm[Hg] Larry Brown Other [employer] Other 03-25-2023 11:05-0500 Diastolic blood pressure 75 mm[Hg] MD Sara Vick Work Phone: [facility] 03-25-2023 11:05-0500 Heart rate 72 /min MD Sara Vick Work Phone: [facility] 03-25-2023 11:05-0500 Respiratory rate 18 /min MD Sara Vikc Work Phone: [facility] 03-25-2023 11:05-0500 SaO2% (BldA) [Mass fraction] 97 % MD Sara Vick Work Phone: [facility] 03-25-2023 11:05-0500 Systolic blood pressure 146 mm[Hg] MD Sara Vick Work Phone: [facility] 03-25-2023 10:27-0500 Inhaled oxygen flow rate 3 L/min MD Sara Vick Work Phone: [facility] 03-25-2023 10:14-0500 Body height 173.99 cm MD Sara Vick Work Phone: [facility] 03-25-2023 10:14-0500 Body weight 88.45 kg MD Sara Vick Work Phone: [facility] 01-27-2023 14:30-0400 Body height 175.26 cm Dominique Shane Other [employer] Other 01-27-2023 14:30-0400 Diastolic blood pressure 70 mm[Hg] Dominique Shane Other [employer] Other 01-27-2023 14:30-0400 SaO2% (BldA) [Mass fraction] 98 % Dominique Shane Other [employer] Other 01-27-2023 14:30-0400 Systolic blood pressure 118 mm[Hg] Dominique Shane Other [employer] Other 01-09-2023 10:15-0400 Body height 175.26 cm Larry Brown Other [employer] Other 01-09-2023 10:15-0400 Body mass index (BMI) [Ratio] 29.56 kg/m2 Larryrandy Brown Other [employer] Other 01-09-2023 10:15-0400 Body weight 90.81 kg Larryrandy Brown Other [employer] Other 01-09-2023 10:15-0400 Diastolic blood pressure 78 mm[Hg] Larry Stephanie Other [employer] Other 01-09-2023 10:15-0400 SaO2% (BldA) [Mass fraction] 98 % Larry Stephanie Other [employer] Other 01-09-2023 10:15-0400 Systolic blood pressure 130 mm[Hg] Larry Stephanie Other [employer] Other 12-12-2022 09:30-0400 Body height 175.26 cm Larry Brown Other [employer] Other 12-12-2022 09:30-0400 Body mass index (BMI) [Ratio] 29.77 kg/m2 Larry Brown Other [employer] Other 12-12-2022 09:30-0400 Body weight 91.45 kg Larry Stephanie Other [employer] Other 12-12-2022 09:30-0400 Diastolic blood pressure 74 mm[Hg] Larry Stephanie Other [employer] Other 12-12-2022 09:30-0400 SaO2% (BldA) [Mass fraction] 99 % Larry Stephanie Other [employer] Other 12-12-2022 09:30-0400 Systolic blood pressure 122 mm[Hg] Larry Brown Other [employer] Other 09-19-2022 12:00-0400 Body height 175.26 cm Larry Brown Other [employer] Other 09-19-2022 12:00-0400 Body mass index (BMI) [Ratio] 30.8 kg/m2 Larry Brown Other [employer] Other 09-19-2022 12:00-0400 Body weight 94.62 kg Larry Brown Other [employer] Other 09-19-2022 12:00-0400 SaO2% (BldA) [Mass fraction] 95 % Larry Brown Other [employer] Other 09-18-2022 10:40-0400 Body height 172.7 cm Perfecto Burch MD Work Phone: [employer] 09-18-2022 10:40-0400 Body mass index (BMI) [Ratio] 31.26 kg/m2 Perfecto Burch MD Work Phone: [facility] 09-18-2022 10:40-0400 Body temperature 96.4 [degF] Perfecto uBrch MD Work Phone: [facility] 09-18-2022 10:40-0400 Body weight 93.26 kg Perfecto Burch MD Work Phone: [employer] 07-27-2022 15:38-0400 Hourly Rounding Francisco Alcazar [facility] 07-27-2022 15:38-0400 Promise to Return Francisco Ottoniel [facility] 07-27-2022 14:38-0400 Hourly Rounding Francisco Ottoniel [facility] 07-27-2022 14:38-0400 Promise to Return Francisco Ottoniel [facility] 07-27-2022 13:38-0400 Hourly Rounding Francisco Ottoniel [facility] 07-27-2022 13:38-0400 Promise to Return Francisco Ottoniel [facility] 07-27-2022 12:08-0400 Heart rate 106 /min Francisco Ottoniel [facility] 07-27-2022 12:08-0400 SaO2% (BldA) [Mass fraction] 100 % Francisco Ottoniel [facility] 07-27-2022 12:07-0400 Diastolic blood pressure 79 mm[Hg] Francisco Ottoniel [facility] 07-27-2022 12:07-0400 Mean blood pressure 103 mm[Hg] Francisco Ottoniel [facility] 07-27-2022 12:07-0400 Systolic blood pressure 151 mm[Hg] Francisco Ottoniel [facility] 07-27-2022 12:06-0400 Body temperature 97.16 [degF] Francisco Ottoniel [facility] 07-27-2022 07:46-0400 Heart rate 82 /min Francisco Ottoniel [facility] 07-27-2022 07:46-0400 SaO2% (BldA) [Mass fraction] 97 % Francisco Ottoniel [facility] 07-27-2022 07:46-0400 Diastolic blood pressure 81 mm[Hg] Francisco Ottoniel [facility] 07-27-2022 07:46-0400 Mean blood pressure 116 mm[Hg] Francisco Ottoniel [facility] 07-27-2022 07:46-0400 Systolic blood pressure 186 mm[Hg] Francisco Ottoniel [facility] 07-27-2022 07:45-0400 Body temperature 97.52 [degF] Francisco Ottoniel [facility] 07-27-2022 01:46-0400 Heart rate 89 /min Francisco Ottoniel [facility] 07-27-2022 01:46-0400 SaO2% (BldA) [Mass fraction] 96 % Francisco Ottoniel [facility] 07-27-2022 01:45-0400 Diastolic blood pressure 67 mm[Hg] Francisco Otton[facility] 07-27-2022 01:45-0400 Mean blood pressure 89 mm[Hg] Francisco Otton[facility] 07-27-2022 01:45-0400 Systolic blood pressure 134 mm[Hg] Francisco Ottoniel [facility] 07-27-2022 01:45-0400 Body temperature 98.06 [degF] Francisco Otton[facility] 07-27-2022 01:45-0400 Blood Pressure Location Francisco Ottoniel [facility] 07-27-2022 01:45-0400 Respiratory rate 18 /min Francicso Ottoniel [facility] 07-26-2022 20:00-0400 Respiratory rate 16 /min Francisco Otton[facility] 07-26-2022 17:20-0400 Blood Pressure Location Francisco Ottoniel [facility] 07-26-2022 17:20-0400 Heart rate 78 /min Francisco Otton[facility] 07-26-2022 15:30-0400 Respiratory rate 12 /min Francisco Otton[facility] 07-26-2022 15:00-0400 Mean blood pressure 122 mm[Hg] Francisco Otton[facility] 07-26-2022 15:00-0400 Respiratory rate 8 /min Francisco Ottoniel [facility] 07-26-2022 14:30-0400 Mean blood pressure 112 mm[Hg] Francisco Otton[facility] 07-26-2022 14:30-0400 Respiratory rate 12 /min Francisco Ottoniel [facility] 07-26-2022 13:30-0400 Mean blood pressure 95 mm[Hg] Francisco Otton[facility] 07-26-2022 11:35-0400 gluc 105 mg/dL Francisco Ottoniel [facility] 07-26-2022 11:35-0400 gluc Francisco Ottoniel [facility] 07-26-2022 11:35-0400 Heart rate 72 /min Francisco Otton[facility] 07-26-2022 11:35-0400 Respiratory rate 18 /min Francisco Otton[facility] 05-02-2022 10:00-0500 Body height 175.26 cm Larry Brown Other [employer] Other 05-02-2022 10:00-0500 Body mass index (BMI) [Ratio] 31.89 kg/m2 Larry Brown Other [facility] [employer] Other 05-02-2022 10:00-0500 Body weight 97.98 kg Larry Brown Other [facility] [employer] Other 05-02-2022 10:00-0500 Diastolic blood pressure 80 mm[Hg] Larry Brown Other [facility] [employer] Other 05-02-2022 10:00-0500 Systolic blood pressure 134 mm[Hg] Larry Brown Other [facility] [employer] Other 03-08-2022 17:00-0500 Diastolic blood pressure 117 mm[Hg] Wm Yakov [facility] 03-08-2022 17:00-0500 Mean blood pressure 131 mm[Hg] Wm Yakov [facility] 03-08-2022 17:00-0500 SaO2% (BldA) [Mass fraction] 95 % Wm Yakov [facility] 03-08-2022 17:00-0500 Systolic blood pressure 160 mm[Hg] Wm Yakov [facility] 03-08-2022 16:30-0500 Diastolic blood pressure 85 mm[Hg] Wm Yakov [facility] 03-08-2022 16:30-0500 Heart rate 75 /min Wm Yakov [facility] 03-08-2022 16:30-0500 Mean blood pressure 94 mm[Hg] Wm Yakov [facility] 03-08-2022 16:30-0500 Respiratory rate 15 /min Wm Yakov [facility] 03-08-2022 16:30-0500 SaO2% (BldA) [Mass fraction] 98 % Wm Yakov [facility] 03-08-2022 16:30-0500 Systolic blood pressure 112 mm[Hg] Wm Yakov [facility] 03-08-2022 16:10-0500 Diastolic blood pressure 74 mm[Hg] Wm Yakov [facility] 03-08-2022 16:10-0500 Heart rate 93 /min Wm Yakov [facility] 03-08-2022 16:10-0500 Mean blood pressure 90 mm[Hg] Wm Yakov [facility] 03-08-2022 16:10-0500 Respiratory rate 14 /min Wm Yakov [facility] 03-08-2022 16:10-0500 SaO2% (BldA) [Mass fraction] 98 % Wm Yakov [facility] 03-08-2022 16:10-0500 Systolic blood pressure 122 mm[Hg] Wm Yakov [facility] 03-08-2022 15:15-0500 Respiratory rate 18 /min Wm Yakov [facility] 03-08-2022 15:00-0500 Hourly Rounding Wm Yakov [facility] 03-08-2022 15:00-0500 Promise to Return Wm Yakov [facility] 03-08-2022 14:45-0500 Respiratory rate 20 /min Wm Yakov [facility] 03-08-2022 14:15-0500 Respiratory rate 20 /min Wm Yakov [facility] 03-08-2022 14:14-0500 Hourly Rounding Wm Nagy [facility] 03-08-2022 14:14-0500 Promise to Return Wm Nagy [facility] 03-08-2022 13:54-0500 Heart rate 99 /min Wm Yakov [facility] 03-08-2022 13:37-0500 Body temperature 97.7 [degF] Wm Nagy [facility] 03-08-2022 13:37-0500 Heart rate 104 /min Wm Nagy [facility] 03-08-2022 13:00-0500 Hourly Rounding Wm Nagy [facility] 03-08-2022 13:00-0500 Promise to Return Wm Nagy [facility] 03-07-2022 11:00-0500 Body height 175.26 cm Larry Brown Other [facility] [employer] Other 03-07-2022 11:00-0500 Body mass index (BMI) [Ratio] 32.54 kg/m2 Larry Brown Other [facility] Other 03-07-2022 11:00-0500 Body weight 99.97 kg Larry Brown Other [employer] Other 03-07-2022 11:00-0500 SaO2% (BldA) [Mass fraction] 99 % Larry Brown Other [employer] Other 06-20-2017 09:19-0500 PAIN LEVEL 0 {score} [...] 06-19-2017 18:45-0500 Respiratory Rate 19 /min Praveen Carlsona 06-19-2017 16:04-0500 Height 175.26 cm Praveen Carlsona 06-19-2017 15:43-0500 Body Temperature 98 [degF] Praveen Carlsona 06-19-2017 15:43-0500 BP Diastolic 74 mm[Hg] Praveen [...] Date Encounter Type Care Provider Facility Start: 12-27-2024 ambulatory Judson SAXENA Facility : [place] Start: 12-12-2024 ambulatory Judson SAXENA Facility:[facility] [place] Start: 12-09-2024 End: 12-09-2024 ambulatory Sara Vick MD Work Phone: [facility] Work Phone: Start: 12-09-2024 End: 12-09-2024 Departed Referred Sara Hampton MD -LAB [facility] Start: 10-30-2023 End: 10-30-2023 ambulatory SARA VICK [...] 08-07-2023 ambulatory MD Sara Vick Work Phone: [facility] Work Phone: Start: 08-07-2023 End: 08-07-2023 Patient encounter procedure MD Sara Vick Work Phone: [facility] [place] Work Phone: Start: 08-05-2023 End: 08-06-2023 ambulatory ANNIE Rowell PRINTRichard Not Available Start: 07-15-2023 End: 07-15-2023 ambulatory ANNIE JIMENEZ Not Available Start: 07-13-2023 End: 07-13-2023 ambulatory [facility] Facility:[facility] Start: 07-13-2023 End: 07-13-2023 Subsequent hospital visit by physician Dona [facility] Dasia Work Phone: Radiology Comment on above: Chronic bilateral lo w back pain with bilateral sciatica [M54.42, M54.41, G89.29] Start: 07-01-2023 End: 07-01-2023 Patient encounter procedure MD Sara Vick Work Phone: [facility] Work Phone: Start: 06-30-2023 End: 06-30-2023 Patient encounter procedure MD Sara Vick Work Phone: [facility] Work Phone: Start: 06-29-2023 End: 06-29-2023 ambulatory ANNIE JIMENEZ Not Available Start: 06-24-2023 End: 06-24-2023 Patient encounter procedure Ghanshyam Lombardi MD Work Phone: [facility] [place] Comment on above: 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); Chronic bilateral low back pain with bilateral sciatica Start: 06-24-2023 End: 06-24-2023 ambulatory [facility] Facility:[facility] Start: 06-24-2023 End: 06-24-2023 Subsequent hospital visit by physician [facility] Comment on above: 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] Start: 05-22-2023 End: 05-22-2023 ambulatory MD Sara Vick Work Phone: [facility] Work Phone: Start: 05-22-2023 End: 05-22-2023 Patient encounter procedure MD Sara Vick Work Phone: [facility]Ultrasound [facility] [place] Work Phone: Start: 05-20-2023 End: 05-20-2023 Discharged Recurring MD Sara Vick Work Phone: [facility] [address] Start: 05-20-2023 Registered Recurring MD Gideon Vick Work Phone: [facility] [address] Start: 05-18-2023 Patient encounter procedure MD Sara Solomon Phone: [facility]- Start: 05-15-2023 End: 05-15-2023 ambulatory Larryrandy Brown Other [facility] [employer] Other Start: 05-15-2023 Office outpatient vi sit 25 minutes Larryrandy Brown [facility] [place] Start: 05-15-2023 End: 05-15-2023 Patient encounter procedure MD Sara Vick Work Phone: [facility]- Start: 05-13-2023 End: 05-13-2023 ambulatory Kiran Kessler Other [facility] [employer] Other Start: 05-13-2023 Office outpatient ne w 60 minutes Kiran Kessler [facility] Start: 05-13-2023 End: 05-13-2023 Patient encounter procedure MD Sara Solomon Phone: [facility]- Start: 04-16-2023 End: 04-16-2023 ambulatory Dominique Shane Other [facility] Other Start: 04-16-2023 Telephone encounter Dominique Shane [facility] Start: 04-03-2023 End: 04-03-2023 ambulatory Larry Stephanie Other [employer] Other Start: 04-03-2023 Office outpatient vi sit 15 minutes Larryrandy Brown [facility] [place] Start: 04-03-2023 End: 04-03-2023 Patient encounter procedure MD Sara Vick Work Phone: [facility] [place] Work Phone: Start: 12-06-2023 (PROC) PROCEDURE Larryrandy Brown [facility] Start: 03-25-2023 End: 03-25-2023 Admission to same day surgery center MD Sara Vick Work Phone: [facility]Dig[facility] Work Phone: Start: 03-25-2023 End: 03-25-2023 ambulatory MD Sara Vick Work Phone: [facility] Work Phone: Start: 03-06-2023 End: 03-06-2023 Patient encounter procedure MD Sara Vick Work Phone: [facility] [place] Work Phone: Start: 02-10-2023 End: 02-10-2023 ambulatory Dominique Shane Other [employer] Other Start: 02-10-2023 Telephone encounter Dominique Shane [facility] Start: 01-27-2023 End: 01-27-2023 ambulatory Dominique Shane Other [employer] Other Start: 01-27-2023 Office outpatient vi sit 25 minutes Dominique Shane [facility] [place] Start: 01-27-2023 Telephone encounter Larry Stephanie [facility] Start: 01-09-2023 End: 01-09-2023 ambulatory Larry Stephanie Other [facility] Other Start: 01-09-2023 Office outpatient vi sit 25 minutes Larry Stephanie [facility] [place] Start: 12-12-2022 End: 12-12-2022 ambulatory Larry Stephanie Other [employer] Other Start: 12-12-2022 Office outpatient vi sit 25 minutes Larry Stephanie [facility] [place] Start: 09-19-2022 End: 09-19-2022 ambulatory Larry Stephanie Other [employer] Other Start: 09-19-2022 Office outpatient vi sit 25 minutes Larry [facility] [place] Start: 09-18-[address] [facility] Start: 09-18-2022 End: 09-18-2022 Office outpatient new 30 minutes Perfecto Burch MD Work Phone: [facility] Comment on above: 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, sequela (Primary Dx) Start: 09-18-2022 End: 09-18-2022 Subsequent hospital visit by physician Perfecto Burch MD Work Phone: [facility] Radiology Start: 09-17-2022 ambulatory ADELE FLEMING Faci lity:[facility] Start: 09-09-2022 End: 09-10-2022 ambulatory ADELE FLEMING Facility:[facility] Start: 08-18-2022 End: 08-19-2022 ambulatory ADELE FLEMING Facility:[facility] Start: 08-13-[address] [facility] Start: 08-12-2022 End: 08-13-2022 ambulatory ADELE FLEMING Facility:[facility] Start: 08-08-2022 End: 08-09-[address] ALFRED UMAÑA Facility:[facility] Start: 08-01-2022 End: 08-02-2022 ambulatory ADELE FLEMING Facility:[facility] Start: 07-26-2022 End: 07-27-2022 Observation Franciscoalberto Alcazar [facility] Start: 07-25-2022 Encounter for preprocedural cardiovascular examination ADELE FLEMING [facility] Start: 07-25-2022 Encounter for preprocedural laboratory examination ADELE FLEMING [facility] Start: 07-24-2022 End: 07-25-2022 ambulatory ADELE FLEMING Facility:[facility] Start: 07-24-2022 End: 07-24-2022 ambulatory ADELE FLEMING Facility:[facility] Start: 07-18-2022 End: 07-19-2022 ambulatory ADELE FLEMING Facility:[facility] Start: 07-18-2022 End: 04-01-2023 Encounter for preprocedural cardiovascular examination ADELE FLEMING Facility:[facility] Start: 07-08-2022 End: 07-09-2022 ambulatory ADELE FLEMING Facility:[facility] Start: 07-01-2022 End: 07-02-[address] ALFRED UMAÑA Facility:[facility] Start: 06-24-2022 End: 06-25-2022 ambulatory ADELE FLEMING Facility:[facility] Start: 06-19-2022 End: 06-20-[address] ALFRED UMAÑA Facility:[facility] Start: 06-19-2022 End: 06-19-2022 ambulatory MD Sara Vick Work Phone: [facility] Work Phone: Start: 06-19-2022 End: 06-19-2022 Discharged Recurring MD Sara Vick Work Phone: [facility]-Physical Therapy [place] Work Phone: Start: 06-13-2022 End: 06-14-2022 ambulatory [...] 05-02-2022 End: 05-02-2022 ambulatory Larry Brown Other [employer] Other Start: 05-02-2022 Office outpatient vi sit 25 minutes Larry Brown [facility] [place] Start: 05-01-2022 End: 01-13-2023 ambulatory ADELE FLEMING Facility:[facility] Start: 04-22-2022 End: 04-23-2022 ambulatory ADELE Means [facility] Facility:[facility] Start: 04-14-2022 End: 04-15-2022 ambulatory DEEPALI JANSEN Facility:[facility] Start: 04-08-2022 (PROC) PROCEDURE Larry [facility] Start: 04-08-2022 End: 04-08-2022 ambulatory Larry Brown Other [employer] Other Start: 03-31-2022 End: 04-01-[address] ALFRED UMAÑA Facility:[facility] Start: 03-08-2022 End: 03-08-2022 Emergency department patient visit Wm Nagy [facility] Start: 03-07-2022 End: 03-07-2022 ambulatory Larry Brown Other [employer] Other Start: 03-07-2022 Office consultation new/estab patient 60 min Larry Brown [facility] [place] Start: 03-06-2022 End: 03-07-[address] SARA VICK . Facility:[facility] Start: 01-03-2022 End: 01-03-[address] SARA VICK . Facility:[facility] Start: 12-09-2021 End: 12-10-2021 ambulatory SHAWANDA LITTLE Facility:[facility] Start: 11-05-2021 End: 11-06-2021 ambulatory ADELE Means [facility] Facility:[facility] Start: 10-07-2021 End: 10-07-2021 ambulatory PO SUAREZ . Facility:[facility] Start: 05-04-2020 End: 05-04-2020 Patient encounter procedure Sara Hoy -Pre-Surgical Testing Start: 05-02-2020 Registered Recurring Sara Vick -P hysical Therapy [facility] [place] Start: 04-24-2020 End: 04-24-2020 Patient encounter procedure Sara Tayy -Pre-Surgical Testing Start: 02-01-2020 End: 02-01-2020 Patient encounter procedure Sara Hoy -XRay [facility] Start: 06-29-2018 Patient encounter procedure Sara~[id number] UNKNOWN Hoy Facility[facility] Start: 12-11-2017 End: 12-12-2017 Patient encounter DEFAULT PHYSICIAN Facility:[facility] Procedures Date Procedure Procedure Detail Performing Clinician Start: 08-08-2023 Mri spinal canal tho racic w/o contrast matrl Ghanshyam Lombardi MD Work Phone: Start: 07-13-2023 Ct lumbar spine w/o contrast material Ghanshyam Lombardi MD Work Phone: Start: 06-24-2023 End: 06-24-2023 Radex spine lumbosacral minimum 4 views Ros S Davidson [employer] ADMINISTRATOR[employer] Work Phone: Start: 05-22-2023 Pulse volume recorde [...] o f lumbar spine using fluoroscopic guidance [employer] Comment on above: L4-5 70-80% relief a nd lasted 1.5 weeks Start: 04-28-2013 Epidural injection o f lumbar spine using fluoroscopic guidance [employer] Comment on above: L5-S1 50% relief Start: 02-21-2013 Injection of facet j oint using fluoroscopic guidance [employer] Comment on above: bilateral L3-S1 FJI 50% relief Start: 01-21-2013 Injection of facet j oint using fluoroscopic guidance [employer] Comment on above: bilateral L3-S1 FJI 0% relief that day, next day 40% relief and 50-60% relief Start: 01-03-2013 Epidural injection o f lumbar spine using fluoroscopic guidance [employer] Comment on above: L5-S1 50% relief Start: 09-02-2012 Epidural injection o f lumbar spine using fluoroscopic guidance [employer] Comment on above: L5-S1 left,, no reli [...] surgery right x3 Wm Nagy left GLORIA [place] Nagy Ligation of fallopian tube K josep Nagy Lumbar and lumbosacr al fusion by posterior technique Wm Nagy Comment on above: [address] Gilman, cleaned infection out 2nd surgery, infection spread removal of rib and higher fusion (3rd surgery) right knee scope wit h partial meniscectomy Wm Yakov Plan of Treatment Date Care Activity Detail Author Start: 12-09-2024 Bacteria identified in Urine by Culture Urine Culture [facility] Start: 12-09-2024 Urine culture [facility] Start: 08-04-2024 Screening for malignant neoplasm of breast Mammogram Screening [facility] Start: 06-23-2024 BP Controlled (<130/80) BP Controlled (<130/80) [facility] Start: 12-20-2023 Influenza vaccination Influenza Vaccine (Season Ended) [facility] Start: 05-22-2023 Pulse volume recorder pneumoplethysmography US arterial pvr rest [facility] Start: 05-22-2023 [facility] Start: 05-22-2023 Duplex scan of lower limb veins US venous duplex LE BI [facility] Start: 05-22-2023 US Lower extremity vein - bilateral [facility] Start: 04-20-2023 Advance Directive Discussion Advance Directive Discussion [facility] Start: 04-20-2023 Behavioral Health Screening Behavioral Health Screening [facility] Start: 04-20-2023 Depression Assessment Depression Assessment [facility] Start: 03-25-2023 [facility] Start: 02-28-2023 Screening for malignant neoplasm of breast Mammogram Screening [facility] Start: 12-19-2022 Covid-19 Vaccine ( season) Covid-19 Vaccine ( season) [facility] Start: 12-19-2022 Influenza vaccination Influenza Vaccine (#1) [facility] Start: 01-28-2022 COVID-19 VACCINE (5 - Booster for Pfizer series) COVID-19 VACCINE (5 - Booster for Pfizer series) [facility] Start: 08-24-2019 Screening for malignant neoplasm of breast MAMMOGRAM SCREENING DISCUSSION [facility] Start: 12-20-2016 Screening for osteoporosis Bone Density Screening [facility] Start: 06-17-2014 Diabetes Screening Diabetes Screening [facility] Start: 2011 RSV Vaccine (1 - 1-dose 60+ series) RSV Vaccine (1 - 1-dose 60+ series) [facility] Start: 12-20-2001 Shingrix Vaccine (1 of 2) Shingrix Vaccine (1 of 2) [facility] Start: 12-20-2001 Zoster vaccine hzv live for subcutaneous use ZOSTER (SHINGLES) VACCINE (1 of 2) [facility] Start: 12-20-1996 Lipid panel Lipid Screening [facility] Start: 12-20-1996 Screening for malignant neoplasm of colon [facility] Start: 1991 Lipid panel LIPID SCREENING [facility] Start: 12-20-1972 Screening for malignant neoplasm of cervix CERVICAL CANCER SCREENING DISCUSSION [facility] Start: 12-20-1970 Third diphtheria, tetanus and acellular pertussis (DTaP) vaccination TDAP (ADULT) [facility] Start: 12-20-1970 Urine microalbumin profile DTaP,Tdap,Td Vaccine (1 - Tdap) [facility] Start: 12-20-1969 Annual PCP Team Chronic Disease Visit Annual PCP Team Chronic Disease Visit [facility] Start: 1950 Hepatitis C screening HEPATITIS C VIRUS SCREENING [facility] Start: 1950 Screening for osteoporosis DEXA SCAN DISCUSSION [facility] Start: 1950 Tetanus vaccination TETANUS [facility] End: 07-23-2024 CT Lumbar spine WO contrast CT LUMBAR SPINE WO [facility] Radiology Routine Chronic bilateral low back pain with bilateral sciatica 1 Occurrences starting 06/24/2023 until 07/23/2024 [facility] Work Phone: Comment on above: 1 Occurrences starting 06/24/2023 until 07/23/2024 End: 07-23-2024 MR Thoracic spine WO contrast MRI THORACIC SPINE WO [facility] Radiology Routine 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 1 Occurrences starting 06/24/2023 until 07/23/2024 [facility] [facility] Work Phone: Comment on above: 1 Occurrences starting 06/24/2023 until 07/23/2024 Patient Education Stephanie Non Diagn ostic Block [facility] Work Phone: Patient referral [facility] Work Phone: XR Knee - left 3 Views XR KNEE L EFT 3 VIEWS Imaging Routine Pain in prosthetic joint, sequela Ordered: 09/16/2022 [facility] Comment on above: Ordered: 09/16/2022 XR Pelvis and Hip - left Views X R HIP WITH PELVIS LEFT Imaging Routine Pain in prosthetic joint, sequela 09/18/2022 10:11 AM EDT [facility] Work Phone: [facility] Immunizations Immunization Date Immunization Notes Care Provider Fa [facility] 02-11-2022 Influenza, injectabl e, Madin Sandy Canine Kidney, preservative free, quadrivalent MD Sara Vick Work Phone: [facility] 02-11-2022 influenza virus vacc ine, unspecified formulation Ghanshyam Lombardi MD Work Phone: [facility] 12-03-2021 COVID-19 Comirnaty (Pfizer) Tri-Sucrose 12+ MD Sara Vick Work Phone: [facility] 03-25-2021 COVID-19 mRNA, Comir nicolle (Pfizer) MD Sara Vick Work Phone: [facility] 07-12-2020 COVID-19, mRNA, LNP- S, PF, 30 mcg/0.3 mL dose Wm Nagy [facility] Comment on above: Reason for Medicatio n: Prophylaxis 06-14-2020 COVID-19, mRNA, LNP- S, PF, 30 mcg/0.3 mL dose Wm Nagy [facility] Comment on above: Reason for Medicatio n: Prophylaxis 02-08-2020 Seasonal trivalent influenza vaccine, adjuvanted, preservative free MD Sara Vick Work Phone: [facility] 02-23-2018 influenza, injectabl e, madin josephine canine kidney, preservative free MD Sara Vick Work Phone: [facility] 02-18-2018 pneumococcal polysaccharide vaccine, 23 valent Wm Nagy [facility] [place] 06-18-2017 tuberculin skin test ; unspecified formulation Praveen Bynum 02-24-2017 pneumococcal polysaccharide vaccine, 23 valent MD Sara Vick Work Phone: [facility] 02-05-2017 influenza, high dose seasonal, preservative-free MD Sara Vick Work Phone: [facility] 02-05-2017 pneumococcal conjuga te vaccine, 13 valantony Nagy [facility] [place] 02-02-2016 influenza, seasonal, injectable, preservative free MD Sara Vick Work Phone: [facility] 10-20-2012 pneumococcal polysaccharide vaccine, 23 valantony Nagy [facility] Payers Date Payer Category Payer Unknown [id number] 2024 Self-pay [id number] 2022 Private Health Insurance 2018 Medicare [id number] [id number] 1959 Private Health Insurance [id number] 1950 Unknown [id number] ..840.1.740447.3.579.2.727 1950 Unknown [id number] 2..840.1.588519.3.579.2.159 1950 Unknown [id number] 2.16.840.1.448397.3.579.2.593 1951 Unknown [id number] 2.16.840.1.067322.3.579.2.593 1951 Unknown [id number] 2.16.840.1.926875.3.579.2.593 1951 Unknown [id number] 2.16.840.1.456444.3.579.2.593 1951 Unknown [id number] 2.16.840.1.526125.3.579.2.593 1951 Unknown [id number] 2.16.840.1.534127.3.579.2.593 1951 Unknown [id number] 2.16.840.1.697141.3.579.2.593 1951 Unknown [id number] 2.16.840.1.278888.3.579.2.593 1951 Unknown [id number] 2.16.840.1.184633.3.579.2.593 1951 Unknown [id number] 2.16.840.1.618658.3.579.2.593 1951 Unknown [id number] 2.16.840.1.527357.3.579.2.593 1951 Unknown [id number] 2.16.840.1.886068.3.579.2.593 1951 Unknown [id number] 2.16.840.1.353014.3.579.2.593 1951 Unknown [id number] 2.16.840.1.672965.3.579.2.593 1951 Unknown [id number] 2.16.840.1.911501.3.579.2.593 1951 Unknown [id number] 2.16.840.1.848925.3.579.2.593 1951 Unknown [id number] 2.16.840.1.533113.3.579.2.593 1951 Unknown [id number] 2.16.840.1.162729.3.579.2.593 1951 Unknown [id number] 2.16.840.1.499562.3.579.2.593 1951 Unknown [id number] 2.16.840.1.008795.3.579.2.593 1951 Unknown [id number] 2.16.840.1.283498.3.579.2.593 1951 Unknown [id number] 2.16.840.1.427417.3.579.2.593 1951 Unknown [id number] 2.16.840.1.129218.3.579.2.593 1951 Unknown [id number] 2.16.840.1.405654.3.579.2.593 1951 Unknown [id number] 2.16.840.1.473788.3.579.2.593 1951 Unknown [id number] 2.16.840.1.824020.3.579.2.593 1951 Unknown [id number] 2.16.840.1.945009.3.579.2.593 1951 Unknown [id number] 2.16.840.1.184426.3.579.2.593 1951 Unknown [id number] 2.16.840.1.490829.3.579.2.593 1951 Unknown [id number] 2.16.840.1.585860.3.579.2.983 1951 Unknown [id number] 2.16.840.1.961740.3.579.2.983 1951 Unknown [id number] 2.16.840.1.191121.3.579.2.983 1951 Unknown [id number] 2.16.840.1.557165.3.579.2.125 9 1950 Unknown [id number] 2.16.840.1.018913.3.579.2.125 9 1950 Unknown [id number] 2.16.840.1.154365.3.579.2.125 9 1951 Unknown [id number] 2.16.840.1.726505.3.579.2.727 Unknown Unknown [id number] Unknown [id number] Unknown [id number] Unknown HCAP/HFA/FAP Active [id number] Unknown [id number] 2.16.840.1.906455.3.579.2.531 Social History Date Type Detail Facility Start: 06-18-2017 Unknown if ever smoked [facility] Start: 04-24-2020 End: 07-01-2023 Tobacco smoking status NHIS Never smoked tobacco (finding) [facility] Start: 1950 Sex Assigned At Female F [facility] Start: 06-24-2023 Sex Assigned At F [facility] Start: 09-18-2022 Tobacco use and exposure Smokeless tobacco non-user [facility] Start: 09-18-2022 End: 06-24-2023 Alcohol intake Current drinker of alcohol (finding) [facility] Start: 09-18-2022 Alcohol Comment occasional [facility] Start: 1950 Sex Assigned At Not on file [facility] Start: 06-24-2023 Alcohol intake [facility] National Score (1-100), lower number is lower risk 62 [facility] Sex Female (finding) [facility] Medical Equipment Procedure Code Equipment Code Equipment Origin al Text Equipment Identifier Dates Arthroplasty, knee, total, minimally invasive Orthopaedic cement, non-medicated ([id number] FDA Start: 05-07-2020 Arthroplasty, knee, total, minimally invasive Uncoated knee femur prosthesis, metallic ()[id number] FDA Start: 05-07-2020 Arthroplasty, knee, total, minimally invasive Tibial insert ()[id number] FDA Start: 05-07-2020 Arthroplasty, knee, total, minimally invasive Uncoated knee tibia prosthesis, metallic ()[id number] FDA Start: 05-07-2020 Arthroplasty, knee, total, minimally invasive Polyethylene patella prosthesis ()[id number] FDA Start: 05-07-2020 Goals Date Patient Goal Desired Activity /State Functional Status Date Assessment Result Facility 07-26-2022 Functional Status No [facility] 07-26-2022 Functional Status [facility] 03-08-2022 Functional Status No [facility] Clinical Notes 10-07-2021 to 08-08-2023 Flor Ziegler, [...] PATIENT PRESENTS WITH AN IMPLANTABLE OR ATTACHED ALARM TECHNICIAN: No RADIOLOGY DEPARTMENT: MR; Exam(s) Completed: Spine: Thoracic spine PERIPHERAL IV DATA: Not applicable SIGNED BY: BAY Leo) August 08, 2023 3:59 PM documented in this encounter [facility] 08-08-2023 Note HNO ID: [id number] Author: FLOR ZIEGLER RT (R) Service: Radiology [...] PATIENT PRESENTS WITH AN IMPLANTABLE OR ATTACHED ALARM TECHNICIAN: No RADIOLOGY DEPARTMENT: MR; Exam(s) Completed: Spine: Thoracic spine PERIPHERAL IV DATA: Not applicable SIGNED BY: RT Felipa(Bryce) August 08, 2023 3:59 PM [facility] 07-13-2023 History of Present illness Narrative Radiology [...] PATIENT PRESENTS WITH AN IMPLANTABLE OR ATTACHED ALARM TECHNICIAN: No RADIOLOGY DEPARTMENT: CT; Exam(s) Completed: Spine PERIPHERAL IV DATA: Not applicable SIGNED BY: BAY Saez) July 13, 2023 10:44 AM documented in this encounter [facility] 07-13-2023 Note HNO ID: [id number] Author: TORRIE ABRAHAM RT(R) Service: Radiology Author [...] PATIENT PRESENTS WITH AN IMPLANTABLE OR ATTACHED ALARM TECHNICIAN: No RADIOLOGY DEPARTMENT: CT; Exam(s) Completed: Spine PERIPHERAL IV DATA: Not applicable SIGNED BY: BAY Saez) July 13, 2023 10:44 AM [facility] 06-24-2023 Note HNO ID: [id number] Author: GHANSHYAM LOMBARDI MD Service: ? Author [...] discussion. 30 minutes spent Ghanshyam Lombardi MD [facility] 06-24-2023 History of Present illness Narrative Staff [...] Ghanshyam Lombardi MD documented in this encounter [facility] 05-15-2023 Evaluation note Encounter Date Diagnosis [...] In the meantime, she can continue taking [place] as needed all as well as Gabapentin [...] and no personal patient information was compromised. [facility] 01-24-2024 Evaluation note* Encounter Date Diagnosis [...] agrees with plan all questions were addressed. [facility] Other 12-28-2023 Evaluation note* Encounter Date Diagnosis Assessment Notes Treatment Notes Treatment Clinical Notes Mar, Lumbar radiculopathy (ICD-10 - M54.16) 72 year old female evaluated via telephonic call for follow up and medication refill for chronic pain. She voices complaints of low back pain with intermittent radiation down the right lower extremity. She continues taking [place] with relief and is requesting a refill of this today. I discussed different treatment options in detail with the patient. She feels medication is managing her pain and does not wish to proceed with injections at this time. I encouraged the patient to start physical therapy as previously discussed. She can also continue taking medications as prescribed and I will refill her [place] as she feels this provides an element [...] pain (ICD-10 - G89.29) Continue medication management. [facility] Other 12-15-2023 Evaluation note* Encounter Date Diagnosis [...] pain (ICD-10 - G89.29) Continue medication management. [facility] Other 10-24-2023 Evaluation note* Encounter Date Diagnosis Assessment Notes Treatment Notes Treatment Clinical Notes Jan, Lumbar radiculopathy (ICD-10 - M54.16) [facility] Other 10-10-2023 Evaluation note* Encounter Date Diagnosis [...] regarding this. Meanwhile, I will refill her [place] as it does provide an element of [...] educated on the risks and benefits of termination clerk opioid use. Hydrocodone/Acetamin ophen was refilled today, opioid risk assessment was done as well as pill count. Patient is compliant with opioid medication. The patient denies any opioid related side effects. [facility] Other 09-22-2023 Evaluation note* Encounter Date Diagnosis [...] educated on the risks and benefits of termination clerk opioid use. Hydrocodone/Aceta minophen was refilled today, opioid risk assessment was done as well as pill count. Patient is compliant with opioid medication. The patient denies any opioid related side effects. Patients last urine drug screen was positive for alcohol, she is counselled against consuming alcohol. [facility] Other 08-25-2023 Evaluation note* Encounter Date Diagnosis [...] M51.36) Stable, follow up in 4 weeks. [facility] 06-02-2023 Evaluation note* Encounter Date Diagnosis [...] nerve blocks in the future if needed. [facility] 06-01-2023 History of Present illness Narrative* [...] 09/18/2022 10:58 AM Patient: Leelee Cedillo MR#: [id number] : 1950 Age: 71 y.o. Referring Physician: Sorin Dickerson DO Insurance: Payor: MEDICARE HU[employer]NA DeedO PPO / Plan: MEDICARE [employer] De[employer] PPO / Product Type: *No Product type* [...] repair GALL BLADDER SURGERY 1999 BACK SURGERY [id number] FOOT SURGERY [id number] Family History: Her family history is not [...] [x]cane, []bracing Are you followed by a automation test engineer? [] [x] Name: Are you followed by [...] repair GALL BLADDER SURGERY 1999 BACK SURGERY 0-2396-1-2017- FOOT SURGERY [id number] No family history on file. Social History [...] [Metronidazole] D[facility]peps[facility] Discharge instructions Patient Education 07/27/2022 15:20:26 [...] Follow these instructions at home: Medicines Take hstl-xon-mfaazpt and prescription medicines only as told by [...] 04/06/2006 Document Revised: 07/29/2019 Document Reviewed: 02/23/2019 [employer] Patient Education 2020 [employer]. 07/27/2022 15:20:26 Vasovagal Syncope, Pediatric Vasovagal Syncope, [...] ?Squatting. ?Moving his or her legs. Give cndg-rxl-dhceqjw and prescription medicines only as told by [...] 01/13/2009 Document Revised: 03/19/2018 Document Reviewed: 05/12/2017 [employer] Patient Education 2020 [employer]. Follow Up Care 07/26/2022 11:32:57 With:Sara Vick Address: [address] [place], [place] [id number]- Business (1) When: Unknown Comments:Call for followup appointment 7-10 days With:Julio Ferrara MD, NEU Address: [address] [place] [address]- When:2 to 4 weeks [facility]04-09-2023 Evaluation + Plan noteExtracted from: Title:Discharge Note [...] Daily With When Contact Information Sara Vick [facility] [facility] [place] [address] [place] [address]- Business (1) Additional Instructions: Call for followup appointment 7-10 days Julio Ferrara MD, NEU Within 2 to [address] [place] [address]- Additional Instructions: Near-Syncope Vasovagal Syncope, Pediatric Extracted [...] it is acute or subacute. It might shoe turner to just be some focal white [...] specified devices) recent right foot surgery in [place] w/podiatry secondary to non healing food wound. Currently has wound vac intact to this operative site. 6. Osteoarthritis (M19.90: Unspecified osteoarthritis, unspecified site) osteoarthritis status post left hip replacement Has chronic back pain. 7. 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 Diagnostic Tests Pending * HgbA1c 07/27/22 [facility]01-13-2023 Evaluation note* Encounter Date Diagnosis Assessment Notes [...] if her pain increases in the future. [facility] Other 01-04-2023 NotePROCEDURE: XR FOOT RT MIN [...] by: JULIO LOBATO Date: 2022-04-23 13:00[facility]01-04-2023 NotePROCEDURE: XR FOOT RT MIN 3 VIEWS, [...] by: JULIO LOBATO Date: 2022-04-23 13:00[facility]12-12-2022 NotePROCEDURE: XR ANKLE RT MIN 3 VIEWS [...] by: ALFRED UMAÑA Date: 2022-03-31 18:19[facility]11-19-2022 Hospital Discharge instructions Patient Education 03/08/2022 17:44:27 [...] 04/06/2006 Document Revised: 04/15/2017 Document Reviewed: 03/23/2017 [employer] Patient Education 2020 [employer]. 03/08/2022 17:44:27 Hip Dislocation Hip Dislocation Hip [...] Follow these instructions at home: Medicines Take jamd-eye-yqzzwkz and prescription medicines only as told by your health care provider. Ask your health care provider if the medicine prescribed to you: ?Requires you to avoid driving or using heavy machinery. ?Can cause constipation. You may need to take actions to prevent or treat constipation, such as: ?Drink enough fluid to keep your urine pale yellow. ?Take kwus-zqu-bwjmuib or prescription medicines. ?Eat foods that are [...] in the [place] Do not drive yourself [facility]. Summary Hip dislocation happens when the [...] 12/30/2001 Document Revised: 12/29/2018 Document Reviewed: 12/30/2018 [employer] Patient Education 2020 [employer]. Follow Up Care 03/08/2022 13:37:46 With:Sorin DICKERSON Address: [address] [place] [address] [address] [place] [address] Business (1) When:03/11/2022 17:44:09 Comments:Call to establish follow-up care. Wear brace until follow-up with orthopedic surgery. With:Sara Vick Address: [address] [place] [address] [place] [address] Business (1) When:03/11/2022 17:43:29 Comments:Call the office [...] you develop any new or worsening symptoms. [facility]11-19-2022 Evaluation + Plan noteExtracted from: Title:ED Note [...] XR Hip 2-3 Views Left + Pelvis [facility]11-18-2022 Evaluation note* Encounter Date Diagnosis Assessment Notes [...] negative findings were considered in medical decision-making. [facility] Other 06-20-2022 NotePROCEDURE: XR FOOT RT MIN [...] authenticated by: JULIO LOBATO Date: 2021-10-07 11:44[facility] Center[facility] noteNo InformationNortThe [facility] [employer] Other Evaluation noteNo assessment information available [facility] Work Phone: Evaluation note* Diagnosis Pain in prosthetic joint, sequela- Primary [facility] Diagnosis Adjacent segment disease of lumbar spine with history of fusion procedure- Primary Chronic bilateral low back pain with bilateral sciatica documented in this encounter [facility] note* Diagnosis 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) documented in this encounter [facility] note* Diagnosis Chronic bilateral low back pain with bilateral sciatica documented in this encounter [facility] note* Diagnosis Onset Date Resolution Status Chronic pain acute Lumbar degenerative disc disease acute Lumbar radiculopathy acute Lumbosacral spondylosis acut e Sacroiliitis acute 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 n acute Chronic pain acute Lumbar degenerative disc disease acute Lumbar radiculopathy acute Lumbosacral spondylosis acut e Sacroiliitis acute [facility] Work Phone: Evaluation note* Diagnosis 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 documented in this encounter [facility] general Narrative - Reported* Type Description Date [...] 2 021 Surgical History back surgeries x5 judson bolden-dr gilman 2019 [facility] [employer] Other History general Narrative - Reported* Type [...] 2 021 Surgical History back surgeries x5 [facility] [employer] [facility]and[facility] 2018 Hospitalization History see above [facility] Other History general Narrative - Reported* Type [...] 2 021 Surgical History back surgeries x5 [facility] [employer] yuandr gilman 2018 Surgical History lazer surgery on her lt leg veins and she also had sclero tx on b/l legs 2022 Hospitalization History see above [facility] Other Hospital course Narrative No data available for this section [facility] No data available for this section [facility] (narrative)* Diagnostic Procedure Only (Routine) - Closed Specialty Diagnoses / Procedures Referred By Maximiliano dee Referred To Contact XR IMAGING Diagnoses Fusion of spine of thoracolumbar region Procedures XR SCOLIOSIS PA STAND/LAT 2V RADEX ENTIR THRC LMBR CRV SAC SPI W/SKULL 2/3 VW Ros Cedeño APRN.CNP [address] [place] [address] [place] [address] Referral ID Status Reason Start Date Expiration Date V isits Requested Visits Authorized [id number] Closed Auto-Generate d Referral 02/25/2023 03/26/2024 1 1 * Diagnostic Procedure Only (Routine) - Closed Specialty Diagnoses / Procedures Referred By Contac t Referred To Contact XR IMAGING Diagnoses Fusion of spine of thoracolumbar region Procedures XR LUMBAR MOTION 4V AP/LAT/ FLEX/EXT RADEX SPINE LUMBOSACRAL MINIMUM 4 VIEWS Ros Cedeño, DATA WAREHOUSE ADMINISTRATOR.BREAD RACKER [address] [place] [phone] [facility] [place] [address] Referral ID Status Reason Start Date Expiration Date V isits Requested Visits Authorized [id number] Closed Auto-Generate d Referral 02/25/2023 03/26/2024 1 1 [facility] for referral (narrative)* Diagnostic Procedure Only (Routine) - Closed Specialty Diagnoses / Procedures Referred By Contac t Referred To Contact MR IMAGING Diagnoses 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 Procedures MRI THORACIC SPINE WO IVCON MRI SPINAL CANAL THORACIC W/O CONTRAST MATRL Ghanshyam Lombardi MD [address] [place] [address] Mr Imaging [place] [address] Referral ID Status Reason Start Date Expiration Date V isits Requested Visits Authorized [id number] Closed Auto-Generate d Referral 08/07/2023 09/07/2023 1 1 [facility] for referral (narrative)No reason for referral [facility] Work Phone: Reason for visit Narrative* Diagnostic Procedure Only (Routine) - Closed Specialty Diagnoses / Procedures Referred By Contac t Referred To Contact XR IMAGING Diagnoses Fusion of spine of thoracolumbar region Procedures XR SCOLIOSIS PA STAND/LAT 2V RADEX ENTIR THRC LMBR CRV SAC SPI W/SKULL 2/3 VW Ros Cedeño, DATA WAREHOUSE ADMINISTRATOR.BREAD RACKER [address] [facility] [place] [phone] [facility] [place] [address] Referral ID Status Reason Start Date Expiration Date V isits Requested Visits Authorized [id number] Closed Auto-Generate d Referral 02/25/2023 03/26/2024 1 1 [facility] Advance Directives No Advanced Directives Records [...] condition Unknow n Unknown Malignant neoplasm Unknown Relationship Condition Age at Onset Recorded Date/T jessica father Pulmonary emphysema Unknown mother Malignant neoplasm of breast Unknown brother Diabetes [...] FOLLOW UP; PVR'S, FF ULTRASOUND DONE AT [facility]FILL FOR CHRONIC PAIN Reason for Visit Chronic pain Lumbar degenerative disc disease Lumbar radiculopathy Lumbosacral spondylosis Sacroiliitis Varicose veins of bilateral lower extremities with pain Chronic pain Lumbar degenerative disc disease Lumbar radiculopathy Lumbosacral spondylosis Sacroiliitis Chief Complaint Admit Date Unknown December 09, 2024 11 :22am Assessments No Assessments Information AvailableNo Assessments Information Available Reason for Referral Specialty Diagnoses / Procedures Referred By Maximiliano t Referred To Contact CT IMAGING Diagnoses Chronic bilateral low back pain with bilateral sciatica Procedures CT LUMBAR SPINE WO IVCON CT LUMBAR SPINE W/O CONTRAST MATERIAL Ghanshyam Lombardi MD [address] [place] [address] Ct Imaging [place] [address] Referral ID Status Reason Start Date Expiration Date Visits Requested Visits Authorized [id number] Pending Review Auto-Generat ed Referral 06/24/2023 07/23/2024 1 1 Specialty Diagnoses / Procedures Referred By Contac t Referred To Contact MR IMAGING Diagnoses 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 Procedures MRI THORACIC SPINE WO IVCON MRI SPINAL CANAL THORACIC W/O CONTRAST Ghanshyam Parker MD [address] [place] [address] Mr Imaging [place] [address] Referral ID Status Reason Start Date Expiration Date Visits Requested Visits Authorized [id number] Pending Review Auto-Generat ed Referral 06/24/2023 07/23/2024 1 1 Specialty Diagnoses / Procedures Referred By Contac t Referred To Contact Diagnoses Pain in prosthetic joint, sequela Procedures XR HIP WITH PELVIS LEFT Perfecto Burch MD [address] [place] [address] Referral ID Status Reason Start Date Expiration Date V isits Requested Visits Authorized [id number] New Request 09/18/2022 10/13/2023 1 1 Specialty Diagnoses / Procedures Referred By Contac t Referred To Contact Diagnoses Pain in prosthetic joint, sequela Procedures XR KNEE LEFT 3 VIEWS Perfecto Burch MD [address] [place] [address] Referral ID Status Reason Start Date Expiration Date V isits Requested Visits Authorized [id number] New Request 09/16/2022 10/11/2023 1 1 Additional Source Comments INFORMATION SOURCE (unrecogn ized section and content) DATE CREATED AUTHOR 12/13/2017 [facility] DATE CREATED AUTHOR AUTHOR'S ORGANIZ ATION 07/10/2018 [facility] DATE CREATED AUTHOR AUTHOR'S ORGANIZ ATION 02/25/2019 [facility] DATE CREATED AUTHOR AUTHOR'S ORGANIZ ATION 03/01/2022 [facility] dical Specialist DATE CREATED AUTHOR AUTHOR'S ORGANIZ ATION 07/26/2022 [facility] DATE CREATED AUTHOR AUTHOR'S ORGANIZ ATION 09/27/2022 [facility] DATE CREATED AUTHOR AUTHOR'S ORGANIZ ATION 09/27/2022 [facility] DATE CREATED AUTHOR AUTHOR'S ORGANIZ ATION 08/09/2023 [facility] dical Specialists [facility] DATE CREATED AUTHOR AUTHOR'S ORGANIZ ATION 11/05/2023 [facility] DATE CREATED AUTHOR AUTHOR'S ORGANIZ ATION 12/11/2024 [facility] DATE CREATED AUTHOR AUTHOR'S ORGANIZ ATION 12/13/2024 [facility] REASON FOR VISIT (unrecogniz ed section and content) Specialty Diagnoses / Procedures Referred By Contac t Referred To Contact Diagnoses Pain in prosthetic joint, sequela Procedures XR HIP WITH PELVIS LEFT Perfecto Burch MD [address] [id number] Referral ID Status Reason Start Date Expiration Date V isits Requested Visits Authorized [id number] New Request 09/18/2022 10/13/2023 1 1 Reason Comments Pain New Patient Reason Comments New Patient Specialty Diagnoses / Procedures Referred By Contac t Referred To Contact CT IMAGING Diagnoses Chronic bilateral low back pain with bilateral sciatica Procedures CT LUMBAR SPINE WO IVCON CT LUMBAR SPINE W/O CONTRAST MATERIAL Ghanshyam Lombardi MD [address] [place] [address] Ct Imaging [place] [address] Referral ID Status Reason Start Date Expiration Date V isits Requested Visits Authorized [id number] Closed Auto-Generate d Referral 07/11/2023 08/10/2023 2 [...] CARLOS SEMAC A17 300 Ghanshyam Lombardi MD [address] [place] [address] Radio Mri Main [address] [address] Referral ID Status Reason Start Date Expiration Date Visits Re quested Visits Authorized [id number] Closed 08/07/2023 09/07/2023 1 1 Patient Care team informatio n (unrecognized section and content) Team Status: Active Member Role Status Dates Sara Vick MD Primary Care Provider Active Team Status: Inactive Member Role Status Dates Sara Vick MD Primary Care Provider, Attending Pr ovider Active Attendant Arcade Relationship Specialty Start Date End Date Sara Vick MD [address] [place] [address] PCP - General Family Medicine 04/09/22 Attendant Arcade Relationship Specialty Start Date End Date Sara Vick MD [address] [place] [address] PCP - General Family Medicine 04/09/22 Team [...] May 22, 2023 End: May 22, 2023 Attendant Arcade Relationship Specialty Start Date End Date Sara Vick MD PCP - General Family Medicine 06/09/11 Attendant Arcade Relationship Specialty Start Date End Date Sara Vick MD PCP - General Family Medicine 06/09/11 Attendant Arcade Relationship Specialty Start Date End Date Sara [...] August 07, 2023 End: August 07, 2023 Team Status: Inactive Member Role Status Freeman Vick MD Primary Care Provider Active Start: December 09, 2024 End: December 09, 2024 Sara Vick MD Attending Provider Active Sta rt: December 09, 2024 End: December 09, 2024 Goals (unrecognized section and content) Goals may be documented in a n alternate section Source Comments (unrecognize d section and content) In the event this informatio n is protected by the Federal Confidentiality of Alcohol and Drug Abuse Patient Records regulations: The Federal rules restrict any use of the information to criminally investigate or prosecute any alcohol or drug abuse patient.[facility] the event this information is protected by the Federal Confidentiality of Alcohol and Drug Abuse Patient Records regulations: The Federal rules restrict any use of the information to criminally investigate or prosecute any alcohol or drug abuse patient.[facility] the event this information is protected by the Federal Confidentiality of Alcohol and Drug Abuse Patient Records regulations: The Federal rules restrict any use of the information to criminally investigate or prosecute any alcohol or drug abuse patient.[facility] the event this information is protected by the Federal Confidentiality of Alcohol and Drug Abuse Patient Records regulations: The Federal rules restrict any use of the information to criminally investigate or prosecute any alcohol or drug abuse patient.[facility] FOR RECORDS PERTAINING TO PATIENTS WHO [...] BE BASED ON THE PRIMARY CLINICAL RECORDS. [facility]. provides no warranty or guarantee of the accuracy or completeness of information in this document.
== END 2024-12-20 12:14 | disposition home or self-care (01) ==
LOC: RAD 12:16
PROVIDERS: PCP Family Medicine; Visit Provider Family Medicine
DX: M62.830 Muscle spasm of back (principal); J20.9 Acute bronchitis, unspecified; Z96.642 Presence of left artificial hip joint; M51.369 Other intervertebral disc degeneration, lumbar region without mention of lumbar back pain or lower extremity pain
CPT/HCPCS: 71046; 72110; 73523

== ENCOUNTER 2024-12-22 13:36 | Outpatient (OUT) | payer MEDICARE, SELFPAY ==
--- OUTSIDE RECORDS SUMMARY | 2024-12-09 05:45 | XMS_ITS ---
Author Organization [facility] in [place] Address [address] [place] [address] Care Team Providers Care Solid Waste Truck Driver Name Role Phone Nixon Carrizales Primary Care Provider [phone] Allergies Allergen (clinical drug ingredient) Drug/Non Drug Allergy documented on EMR Reaction Allergy Type Onset Date Status Substance with sulfonamide structure and antibacterial mechanism of action (substance) Sulfa Antibiotics rash Drug Allergy Active Results Component Value Reference Range Notes UA DIP NONAUTO WO MICRO (810 02) - IN OFFICE Reviewed date:12/09/2024 12:39:28 PM Interpretation: Performing Lab: Notes/Report: COLOR yellow CLARITY clear GLUCOSE neg BILIRUBIN neg KETONE trace SPECIFIC GRAVITY 1.015 BLOOD trace PH 5 PROTEIN trace UROBILINOGEN neg NITRITE neg LEUKOCYTE ESTERASE trace Reason For Referral Reason + FH also Diagnosis 1 Blood in stool (K92. 1) Referral Organization [facility] Referring Provider First Name Nixon [...] 1 TABLET EVERY DAY for 90 Active Mccrory & Syringes use for monthly b12 injections [...] No Points 0 Interpretation Negative Vital Signs Temperature 98.2 degrees Fahrenheit 12/10/19 25 Blood pressure systolic 134 mm Hg 12/10/19 25 Blood pressure diastolic 78 mm Hg 025 Height 68 in 12/09/2024 Weight 189.8 lbs 12/09/2024 BMI 28.86 kg/m2 12/09/2024 Encounters Encounter Location Date Provider Diagnosis [facility] [address] [place] [address] 12/09/2024 Nixon Hocarolina UTI (urinary tract infection) N39.0 and Blood in stool K92.1 Assessments Encounter Date Diagnosis (ICD Code) Assessment Notes Treatment Notes Treatment Clinical Notes Section Notes 12/09/2024 UTI (urinary tract infection) (ICD-10 - N39.0) 12/09/2024 Blood in stool (ICD-10 - K92.1) Plan Of Treatment Pending Test Test Name Order Date Urinalysis Microscopic 12/09/2024 CULTURE URINE 12/09/2024 Referrals Referral Date Details 12/09/2024 12/09/2024, + FH als o, Judson Nill Medications Administered Medication Instructions Date of Administration Dosage Notes Triamcinolone 40 mg/ml 12/09/2024 120 mg Progress Notes * Leelee CEDILLO MDOB: 2 (73 yo F)Acc No.[id number]:12/09/2024 Progress Note Patient: Leelee LAM Provider: Clary Carrizales ([facility])MD :1950 A ge:73 Y S ex:Female Date:12/09/2024 Address:[address] [place], [place] [id number] Check In:09:36 AM ESTCheck O ut:10:36 AM EST Subjective: * Chief Complaints: * P resents to office alone to recheck urine. Finished the ATBC/o swelling to right foot for the past couple. No painPain in left groin and left thigh for at least 2 weeksDiscuss results of occult blood * HPI: G eneral: R foot swelign some better today uti symtposm gone - u/a pretty clera checking sample at [facility] left groin and pain intop Left thigh. 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, unspecified whether assisted insulin use Modified On:08/09/2022U Status:confirmed E11.621 Type [...] On:02/20/2023U Status:confirmed L89.892 Decubitus ulcer of c jail, stage 2, unspecified laterality Modified On:03/03/2023U Status:confirmed [...] 02/09/14Excision of Ganglion Cyst 2012Knee Arthroscopy, Rt 2011Cholecystectomy 2008Rotator Cuff Repair, rt [...] 20 MG Tablet 1 tab Orally qhs Benzonatate 200 MG Capsule 1 capsule Orally Three times a day Cyanocobalamin 1000 MCG/ML Solution INJECT 1ML INTO THE MUSCLE EVERY MONTH Gabapentin 600 MG Tablet TAKE 2 TABLETS Orally bid Levothyroxine Sodium 125 MCG Tablet TAKE 1 TABLET EVERY DAY Losartan Potassium 100 MG Tablet 1 tablet Orally Once a day Meloxicam 15 MG Tablet TAKE 1 TABLET EVERY DAY Mccrory & Syringes use for monthly b12 injections 23G x 1 3ml syringePantoprazole Sodium 40 MG Tablet Delayed Release TAKE 1 TABLET EVERY DAY Rollator 1 rollator to safely complete ADLs DX M51.36 Triamcinolone Acetonide 0.1 % Cream 1 application Externally bid Vitamin D3 50 MCG (1999 UT) Capsule 1 capsule Orally Once a day Taking Accu-Chek FastClix Lancets(Lancets) - Miscellaneous TEST BLOOD SUGAR EVERY DAY Taking Alendronate Sodium 70 MG Tablet TAKE 1 TABLET EVERY WEEK Taking ALPRAZolam 0.25 MG Tablet 1 tablet Orally Twice a day F41,9Taking Baclofen 20 MG Tablet 1 tab Orally qhs Taking Benzonatate 200 MG Capsule 1 capsule Orally Three times a day Taking Cyanocobalamin 1000 MCG/ML Solution INJECT 1ML INTO THE MUSCLE EVERY MONTH Taking Gabapentin 600 MG Tablet TAKE 2 TABLETS Orally bid Taking Levothyroxine Sodium 125 MCG Tablet TAKE 1 TABLET EVERY DAY Taking Losartan Potassium 100 MG Tablet 1 tablet Orally Once a day Taking Meloxicam 15 MG Tablet TAKE 1 TABLET EVERY DAY Taking Mccrory & Syringes use for monthly b12 injections 23G x 1 3ml syringeTaking Pantoprazole Sodium 40 MG Tablet Delayed Release TAKE 1 TABLET EVERY DAY Taking Rollator 1 rollator to safely complete ADLs DX M51.36 Taking Triamcinolone Acetonide 0.1 % Cream 1 application Externally bid Taking Vitamin D3 50 MCG (1999) Capsule 1 capsule Orally Once a day DiscontinuedlevoFLOXacin 750 MG Tablet 1 tablet Orally Once a day Medication List reviewed and reconciled with the patientDiscontinued levoFLOXacin 750 MG Tablet 1 tablet Orally Once a day Medication List reviewed and reconciled with the patient * Allergies: S ulfa Antibiotics: jammie[Allergies Verified] Objective: * Vitals: W t:189.8lbs, Ht: 68 [...] L ab: UA DIP NONAUTO WO MICRO (57959) - IN OFFICE (Collection Date & Time [...] 9 6372 THERAP.INJ. OF MED. INTRAMUSCULAR OR [id number] [facility] ACET,PER 10MG.3078F DIAST BP < 80 MM [id number] SYST BP GE 130 - 139MM [id number] URINALYSIS WO MICRO * * Sign off status: Completed Visit Status: C HK (Check Out) true * Provider: Clary Carrizales ([facility])MD Date: 0 12/09/2024 Generated for Printi ng/Faxing/eTransmitting on: 0 12/22/2024 01:39 PM EDT History and Physical Notes * HPI (History of Present Illness) Category Sub-Category Detail Notes Category Not es General R foot swelign some better today uti symtposm gone - u/a pretty clera checking sample at [facility] left groin and pain intop Left thigh Consultation Request Notes Referral Date Referring Provider Referred Provider Not es 12/09/2024 Nixon Carrizales Michael + FH also
--- OUTSIDE RECORDS SUMMARY | 2024-12-12 08:32 | XMS_ITS ---
Author Organization [facility] in [place] Address [address] [place] [address] Care Team Providers Care Freight Brakeman Name Role Phone JasvircarolinaNixon Primary Care Provider REASON FOR VISIT urine cx Medications Medication SIG (Take, Route, Frequency, Duration) Notes Start Date End Date Status Doxycycline Hyclate 100 MG 1 tablet Oral ly Once a day for 10 days 12/12/2024 Active Encounters Encounter Location Date Provider Diagnosis [facility] [address] [place] [address] 12/12/2024 Nixon Carrizales Plan Of Treatment Medication Medication Name Sig Start Date Stop Date Notes Doxycycline Hyclate 100 MG 1 tablet Oral ly Once a day for 10 days 12/12/2024 Progress Notes * Leelee CEDILLO MDOB: (73 yo F)Acc No.[id number]:12/12/2024 Patient: Sandi JAUREGUI Leelee Hampton :1950 A ge:73 Y S ex:Female Address:[address] [place] [address], [phone] * Refills Start Doxycycline Hyclate Tablet, 100 MG, Orally, 10, 1 tablet, Once a day, 10 days, Refills=0 * true * Date: Generated for Eveliai ng/Faswathig/eTransmitting on: 0 12/22/2024 01:40 PM EDT
--- OUTSIDE RECORDS SUMMARY | 2024-12-20 07:00 | XMS_ITS ---
Author Organization [facility] in [place] Address [address] [place] [address] Care Team Providers Care Tool Crib Manager Name Role Phone Nixon Carrizales Primary Care Provider [phone] Allergies Allergen (clinical drug ingredient) Drug/Non Drug Allergy documented on EMR Reaction Allergy Type Onset Date Status Substance with sulfonamide structure and antibacterial mechanism of action (substance) Sulfa Antibiotics rash Drug Allergy Active REASON FOR VISIT back pain- muscle spasms, urinary frequency- finished doxy, cough congestion- green colored Medications Medication SIG (Take, Route, Frequency, Duration) Notes Start Date End Date Status Cyanocobalamin 1000 MCG/ML INJECT 1ML IN TO THE MUSCLE EVERY MONTH for 90 Active Accu-Chek FastClix Lancets - TEST BLOOD SUGAR EVERY DAY for 90 Active ALPRAZolam 0.25 MG 1 tablet Orally Twice a day for 30 days F41,9 10/11/2024 Active Alendronate Sodium 70 MG TAKE 1 TABLET E VERY WEEK for 84 Active Baclofen 20 MG 1 tab Orally qhs 11/21/2024 Active Doxycycline Monohydrate 100 MG 1 tablet Orally bid for 10 days 12/20/2024 Active Amoxicillin-Pot Clavulanate 875-125 MG 1 tablet Orally every 12 hrs for 10 days 12/20/2024 Active Vitamin D3 50 MCG (1999 UT) 1 capsule Or ally Once a day for 30 day(s) Active Rollator 1 rollator to safely complete ADLs DX M51.36 for 365 days 10/11/2024 Active Pantoprazole Sodium 40 MG TAKE 1 TABLET EVERY DAY for 90 Active Mcnary & Syringes use for monthly b12 injections for 365 days 23G x 1 3ml syringe 08/16/2024 Active Meloxicam 15 MG TAKE 1 TABLET EVERY DAY for 90 Active Triamcinolone Acetonide 0.1 % 1 application Externally bid 11/28/2024 Active Losartan Potassium 100 MG 1 tablet Orall y Once a day for 30 days Active Levothyroxine Sodium 125 MCG TAKE 1 TABL ET EVERY DAY for 90 Active Gabapentin 600 MG TAKE 2 TABLETS Orall y bid for 30 days Active Social History Tobacco Use: Social History Observation Description Date Details (start date - stop date) Never Smoker NA - NA Tobacco Use/Smoking Question Answer Notes Patient is a nonsmoker Vital Signs Blood pressure systolic 142 mm Hg 12/21/19 25 Blood pressure diastolic 78 mm Hg 025 Height 68 in 12/20/2024 Weight 189.4 lbs 12/20/2024 BMI 28.8 kg/m2 12/20/2024 Encounters Encounter Location Date Provider Diagnosis [facility] [address] [place] [address] 12/20/2024 Nixon Hoy Muscle spasm of back M62.830 ; Urinary incontinence R32 and Acute bronchitis 466.0 Assessments Encounter Date Diagnosis (ICD Code) Assessment Notes Treatment Notes Treatment Clinical Notes Section Notes 12/20/2024 Muscle spasm of back (ICD-10 - M62.830) cont with meds 12/20/2024 Urinary incontinence (ICD-10 - R32) repate raul in 10 - 14 days 12/20/2024 Acute bronchitis (ICD9-CM - 466.0) adjusting ab Plan Of Treatment Medication Medication Name Sig Start Date Stop Date Notes Doxycycline Monohydrate 100 MG 1 tablet Orally bid for 10 days 12/20/2024 Amoxicillin-Pot Clavulanate 875-125 MG 1 tablet Orally every 12 hrs for 10 days 12/20/2024 Treatment Notes Assessment Notes Muscle spasm of back cont with meds Urinary incontinence repate raul in 10 - 14 days Acute bronchitis adjusting ab Pending Test Test Name Order Date Urinalysis Microscopic 12/20/2024 CULTURE URINE 12/20/2024 XR CHEST 2 V 12/20/2024 XR HIP LT 2 3V W PELVIS 12/20/2024 XR LSPINE MIN 4 VIEWS 12/20/2024 XR HIP RT 2 3V W PELVIS 12/20/2024 US renal bladder 12/20/2024 Medications Administered Medication Instructions Date of Administration Dosage Notes Orphenadrine Citrate 12/20/2024 60 mg Ketorolac Tromethamine 12/20/2024 60 mg Triamcinolone 40 mg/ml 12/20/2024 80 mg Progress Notes * Leelee CEDILLO MDOB: 2 (74 yo F)Acc No.[id number]:12/20/2024 Progress Note Patient: Leelee LAM Provider: Clary Carrizales ([facility])MD :1950 A ge:74 Y S ex:Female Date:12/20/2024 Address:[address] [place], [place] [phone] Check In:10:34 AM ESTCheck O ut:11:47 AM EST Subjective: * Chief Complaints: * B ack pain- muscle spasmsUrinary frequency- finished doxyCough congestion- green colored * HPI: G eneral: Bacpain - muysckle spasm Recurrent UTI - need follow up cs and inc dose aab Acute bronchitis. 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, unspecified whether rodent exterminator insulin use Modified On:08/09/2022U Status:confirmed E11.621 Type [...] On:02/20/2023U Status:confirmed L89.892 Decubitus ulcer of c chcf, stage 2, unspecified laterality Modified On:03/03/2023U Status:confirmed [...] 02/09/14Excision of Ganglion Cyst 2011Knee Arthroscopy, Rt 2012Cholecystectomy 2008Rotator Cuff Repair, rt [...] MG Tablet TAKE 1 TABLET EVERY DAY Mcnary & Syringes use for monthly b12 injections 23G x 1 3ml syringePantoprazole Sodium 40 MG Tablet Delayed Release TAKE 1 TABLET EVERY DAY Rollator 1 rollator to safely complete ADLs DX M51.36 Triamcinolone Acetonide 0.1 % Cream 1 application Externally bid Vitamin D3 50 MCG (2000 UT) Capsule [...] Tablet TAKE 1 TABLET EVERY DAY Taking Mcnary & Syringes use for monthly b12 injections 23G x 1 3ml syringeTaking Pantoprazole Sodium 40 MG Tablet Delayed Release TAKE 1 TABLET EVERY DAY Taking Rollator 1 rollator to safely complete ADLs DX M51.36 Taking Triamcinolone Acetonide 0.1 % Cream 1 application Externally bid Taking Vitamin D3 50 MCG (1999) Capsule 1 capsule Orally Once a day DiscontinuedBenzonatate 200 MG Capsule 1 capsule Orally Three times a day Doxycycline Hyclate 100 MG Tablet 1 tablet Orally Once a day Medication List reviewed and reconciled with the patientDiscontinued Benzonatate 200 MG Capsule 1 capsule Orally Three times a day Discontinued Doxycycline Hyclate 100 MG Tablet 1 tablet Orally Once a day Medication List reviewed and reconciled with the patient * Allergies: S ulfa Antibiotics: marcinno[Allergies Verified] Objective: * Vitals: W t:189.4lbs, Ht: 68 in, BP:142/78mm Hg, BMI:28.8Index, Wt-k.91 kg. * Examination: P hysical Exam: GENERAL: [...] mood and affect. Assessment: * Assessment: 1. M uscle spasm of back - M62.830 (Primary) 2 . U rinary incontinence - R32 3 . A cute bronchitis - 466.0 Plan: * Treatment: Notes: cont with meds??2.?Urinary incontinence?LAB: Urinalysis Microscopic ?LAB: CULTURE URINE Notes: repate raul in 10 - 14 days??3.?Acute bronchitis?Imaging: XR CHEST 2 V ?Imaging: XR HIP LT 2 3V W PELVIS ?Imaging: XR LSPINE MIN 4 VIEWS ?Imaging: XR HIP RT 2 3V W PELVIS ?Imaging: US renal bladder* and bladder with PVR Notes: adjusting ab?? * Therapeutic Injections: Triamcinolone 40 mg/ml : 80 mg (Route: Intramuscular) given by Liat Ambrose SA on right gluteus (Muscle spasm of back) Ketorolac Tromethamine : 60 mg (Route: Intramuscular) given by Liat Ambrose SA on left gluteus (Muscle spasm of back) Orphenadrine Citrate : 60 mg (Route: Intramuscular) given by Liat Ambrose SA on left gluteus (Muscle spasm of back) * Procedure Codes: 9 6372 THERAP.INJ. OF MED. INTRAMUSCULAR OR [id number] TMC ACET,PER 10MG., Units: 8.00 J1885 TORADOL, PER 15 MG, Units: 4.00 , Modifiers: JZ J2360 NORFLEX,UP TO 60MG. * * Sign off status: Completed Visit Status: C HK (Check Out) true * Provider: Clary Carrizales ([facility])MD Date: 0 12/20/2024 Generated for Eveliai margareth/Kristian/eTransmitting on: 0 12/22/2024 01:38 PM EDT History and Physical Notes * HPI (History of Present Illness) Category Sub-Category Detail Notes Category Not es General Bacpain - muysckle spasm Recurrent UTI - need follow up cs and inc dose aab Acute bronchitis Examination Category Sub-Category Detail Notes Category Not [...]
--- OUTSIDE RECORDS SUMMARY | 2024-12-20 18:46 | XMS_ITS ---
Author Organization [facility] [place] Address [address] [place] [address] Care Team Providers Care Histopathology Technician Name Role Phone Nixon Carrizales Primary Care Provider [phone] REASON FOR VISIT Results Encounters Encounter Location Date Provider Diagnosis [facility] [address] [place] [address] 12/20/2024 Nixon Carrizales Plan Of Treatment No Information Progress Notes * Leelee CEDILLO MDOB: 2 (74 yo F)Acc No.[id number]:12/20/2024 Patient: Sandi JAUREGUI Leelee Hampton :1950 A ge:74 Y S ex:Female Address:[address] [place] [address], [address] * true * Date: Generated for Uday zuluaga/Kristian/eTransmitting on: 0 12/22/2024 01:38 PM EDT
--- OUTSIDE RECORDS SUMMARY | 2024-12-21 09:25 | XMS_ITS ---
Author Organization [facility] [place] Address [address] [place] [address] Care Team Providers Care Employee Welfare Manager Name Role Phone Nixon Carrizales Primary Care Provider Encounters Encounter Location Date Provider Diagnosis [facility] [address] [place] [address] 2024 Nixon Carrizales Plan Of Treatment No Information Progress Notes * Leelee CEDILLO MDOB: 2 (74 yo F)Acc No.[id number] Patient: Sandi Leelee JAUREGUI :1950 A ge:74 Y S ex:Female Address:[address] [place] [address], [address] * true * Date: Generated for Uday zuluaga/Kristian/eTransmitting on: 0 12/22/2024 01:39 PM EDT
--- OUTSIDE RECORDS SUMMARY | 2024-12-22 13:39 | XMS_ITS | Clinical Summary ---
Author Organization [employer] Address [id number] [address] [place] [address] Care Team Providers Care Bisque Kiln Drawer Name Role Phone Unavailable Primary Care Provider [...] exists Medical Devices Not on file Insurance [facility] MEDIC[facility]
--- OUTSIDE RECORDS SUMMARY | 2024-12-22 13:39 | XMS_ITS | Encounter Summary ---
Author Organization [employer] Address [id number] [address] [place] [address] Care Team Providers Care Smoke Jumper Supervisor Name Role Phone Unavailable Primary Care Provider Unavailabl e Encounter Details Date Type Department Care Team (Late st Contact Info) Description 12/04/2022 Orders Only [facility] [address] [place] [address] External, Scanning Provider Social History Tobacco Use [...]
--- OUTSIDE RECORDS SUMMARY | 2024-12-22 13:39 | XMS_ITS | Encounter Summary ---
Author Organization [facility] Address [address] [place] [address] Care Team Providers Care Marine Tower Operator Name Role Phone Leander Carrizales MD Primary Care Provider [phone] Source Comments In the event this information is protected by the Federal Confidentiality of Alcohol and Drug AbusePatient Records regulations: The Federal rules restrict any use of the information to criminally investigate or prosecute any alcohol or drug abuse patient.[facility] Encounter Details Date Type Department Care Team (Late st Contact Info) Description 08/06/2023 [place] [address] Provider, Ccf Questionnaire Submission Social History Tobacco Use Types Packs/Day Years Used Date Smoking Tobacco: Never Alcohol Use Standard Drinks/Week Comments Yes 6 (1 standard drink = 0.6 oz pur e alcohol) Area Deprivation Index Answer Date Doron rded National Score (1-100), lower number is lower ri sk 62 06/24/2023 State Score (1-10), lower number is lower risk 4 06/24/2023 Data from: https://www.neighborhoodatlas.medicine.[facility].edu/. Last address used for calculation [address] [facility] 06/24/2023 Comments No Sex and Gender [...] on filedocumented in this encounter Care Teams Marine Tower Operator Relationship Specialty Start Date End Date Leander Carrizales MD PCP - General Family Medicine 06/09/11 documented as of this encounter
--- OUTSIDE RECORDS SUMMARY | 2024-12-22 13:39 | XMS_ITS | Encounter Summary ---
Author Organization [facility] Address [address] [place], [place] [id number] Care Team Providers Care Office Manager Name Role Phone Leander Carrizales MD Primary Care Provider [phone] Source Comments In the event this information is protected by the Federal Confidentiality of Alcohol and Drug AbusePatient Records regulations: The Federal rules restrict any use of the information to criminally investigate or prosecute any alcohol or drug abuse patient.[facility] Reason for Referral * Diagnostic Procedure Only (Routine) - Closed Specialty Diagnoses / Procedures Referred By Contac t Referred To Contact XR IMAGING Diagnoses Fusion of spine of thoracolumbar region Procedures XR SCOLIOSIS PA STAND/LAT 2V RADEX ENTIR THRC LMBR CRV SAC SPI W/SKULL 2/3 VW Antonietta Cedeño APRN.CHANNEL PROCESS PLANT OPERATOR [address] [place] [address] Phone: tel: fax: XR IMAGING [facility]95 Referral ID Status Reason Start Date Expiration Date V isits Requested Visits Authorized [id number] Closed Auto-Generate d Referral 02/25/2023 03/26/2024 1 1 * Diagnostic Procedure Only (Routine) - Closed Specialty Diagnoses / Procedures Referred By Contac t Referred To Contact XR IMAGING Diagnoses Fusion of spine of thoracolumbar region Procedures XR LUMBAR MOTION 4V AP/LAT/ FLEX/EXT RADEX SPINE LUMBOSACRAL MINIMUM 4 VIEWS Antonietta Cedeño APRN.CNP [address] [place] [address] Phone: tel: fax: [place] [id number] Referral ID Status Reason Start Date Expiration Date V isits Requested Visits Authorized [id number] Closed Auto-Generate d Referral 02/25/2023 03/26/2024 1 1 Encounter Details Date Type Department Care Team (Late st Contact Info) Description 02/20/2023 Abstract Neurology [address] [place] [id number] (Hist), Unk Pcp Social History Tobacco Use [...] changes with no evidence of hardware complication. Police Crime Scene Technician: ELAINE Transcribe Date/Time: Jun 24 2023 12:52P [...] Number of different views (projections): 2 (accession [id number]), 4 (accession [id number]) COMPARISON: Radiographs dated 09/23/2021 RESULT: Counting reference: [...] No other significant abnormality. Procedure Note Provider, [facility] [place] - 06/24/2023 * * *Final Report* * [...] Number of different views (projections): 2 (accession [id number]), 4 (accession [id number]) COMPARISON: Radiographs dated 09/23/2021 RESULT: Counting reference: [...] changes with no evidence of hardware complication. Police Crime Scene Technician: ELAINE Transcribe Date/Time: Jun 24 2023 12:52P [...] changes with no evidence of hardware complication. Police Crime Scene Technician: PSCB Transcribe Date/Time: Jun 24 2023 12:52P [...] Number of different views (projections): 2 (accession [id number]), 4 (accession [id number]) COMPARISON: Radiographs dated 09/23/2021 RESULT: Counting reference: [...] No other significant abnormality. Procedure Note Provider, [facility] [place] - 06/24/2023 * * *Final Report* * [...] Number of different views (projections): 2 (accession [id number]), 4 (accession [id number]) COMPARISON: Radiographs dated 09/23/2021 RESULT: Counting reference: [...] changes with no evidence of hardware complication. 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
--- OUTSIDE RECORDS SUMMARY | 2024-12-22 13:39 | XMS_ITS | Patient Health Record ---
Author Organization [facility] [employer] [facility] Address [address] [place] [address] Care Team Providers Care Horticultural Specialty Grower Name Role Phone Dr. Uziel Kenny Primary Care Provider [phone] Reason For Referral No Information Plan Of Treatment No Information Insurance Providers Payer Name Payer Address Payer Phone Subscriber Number Group Number Insured Name Patient Relationship to Insured Coverage Start Date Coverage End Date [employer] MEDICARE PLAN [address] [address] [place] [address] [id number] KENAN CHASE Self - patient is the insured 2 DENTAL [employer] MEDICARE [address] [address] [place] [address] [phone] [id number] KENAN CHASE Self - patient is the insured 2
--- OUTSIDE RECORDS SUMMARY | 2024-12-22 13:39 | XMS_ITS | Encounter Summary ---
Author Organization [facility] Address [address] [place] [address] Care Team Providers Care Help Desk Coordinator Name Role Phone Leander Carrizales MD Primary Care Provider [phone] Source Comments In the event this information is protected by the Federal Confidentiality of Alcohol and Drug AbusePatient Records regulations: The Federal rules restrict any use of the information to criminally investigate or prosecute any alcohol or drug abuse patient.[facility] Encounter Details Date Type Department Care Team (Late st Contact Info) Description 07/29/2023 [place] [address] Provider, Ccf Questionnaire Submission Social History Tobacco Use Types Packs/Day Years Used Date Smoking Tobacco: Never Alcohol Use Standard Drinks/Week Comments Yes 6 (1 standard drink = 0.6 oz pur e alcohol) Area Deprivation Index Answer Date Doron rded National Score (1-100), lower number is lower ri sk 62 06/24/2023 State Score (1-10), lower number is lower risk 4 06/24/2023 Data from: https://www.neighborhoodatlas.medicine.[facility].edu/. Last address used for calculation [address] [facility] 06/24/2023 Comments No Sex and Gender Information [...] on filedocumented in this encounter Care Teams Help Desk Coordinator Relationship Specialty Start Date End Date Leander Carrizales MD PCP - General Family Medicine 06/09/11 documented as of this encounter
--- OUTSIDE RECORDS SUMMARY | 2024-12-22 13:39 | XMS_ITS | Clinical Summary ---
Author Organization [facility] Address [address] [place], [place] [id number] Care Team Providers Care Treating And Pumping Supervisor Name Role Phone Leander Carrizales MD Primary Care Provider [phone] Allergies Active Allergy Reactions Criticality Noted Date [...] risk 4 06/24/2023 Data from: https://www.neighborhoodatlas.medicine.[facility].edu/. Last address used for calculation 60 [place] [...] Hep B Core Ab, Total Negative NEGAT [facility] Hep C Antibody IA Negative NEGAT [facility] HBsAg Negative NEGAT [facility] Hep B Surface Ab, Qual Negative NEGAT [facility] Comment: A negative Hepatitis B [...] Daniele Renae MD LABORATORY Final Resul t [facility] [address] [place] [address] * COMP METABOLIC PANEL (06/18/2011 1:49 PM EST) Protein, Total 7.4 6.0 - 8.4 g/dL [facility] Albumin 4.1 3.5 - 5.0 g/dL [facility] Calcium 9.4 8.5 - 10.5 mg/dL [facility] Bilirubin, Total 0.2 0.0 - 1.5 mg/dL [facility] Alkaline Phosphatase 75 40 - 150 U/L [facility] AST 23 7 - 40 U/L [facility] Glucose 90 65 - 100 mg/dL [facility] BUN 12 8 - 25 mg/dL [facility] Creatinine 0.80 0.70 - 1.40 mg/dL [facility] Sodium 140 132 - 148 mmol/L [facility] Potassium 3.9 3.5 - 5.0 mmol/L [facility] Chloride 106 98 - 110 mmol/L [facility] CO2 25 23 - 32 mmol/L [facility] Anion Gap 9 0 - 15 mmol/L [facility] ALT 16 0 - 45 U/L [facility] eGFR- >60 [facility] eGFR-All Other Races >60 . [facility] Comment: eGFR (Estimated GFR) Units of [...] EST us Rey Mejia LABORATORY Final Result [facility] [address] [place] [address] from Last 3 Months or Most Recently Relevant to Health Maintenance Insurance [facility] MEDICARE Care Teams Treating And Pumping Supervisor Relationship Specialty Start Date End Date Leander Carrizales MD PCP - General Family Medicine 06/09/11
--- OUTSIDE RECORDS SUMMARY | 2024-12-22 13:39 | XMS_ITS | Clinical Summary ---
Author Organization [facility] Address [address] [place] [address] Care Team Providers Care Hosiery Mater Name Role Phone Leander Carrizales MD Primary Care Provider [phone] Allergies Active Allergy Reactions Criticality Noted Date [...] Insurance Medicare [employer] HMO PPO Care Teams Hosiery Mater Relationship Specialty Start Date End Date Leander Carrizales MD PCP - General Family Medicine 04/09/22
--- OUTSIDE RECORDS SUMMARY | 2024-12-22 13:39 | XMS_ITS | Clinical Summary ---
Author Organization [facility] Address [address] [place] [address] Phone Care Team Providers Care Braiding Operator Name Role Phone Leander Carrizales MD Primary Care Provider [phone] Social History Tobacco Use Types Packs/Day Years Used Date Smoking Tobacco: Never Assessed Comments Unknown Sex and Gender Information Value Date Recorded Sex Assigned at Not on file Legal Sex Female 3:27 PM EST Gender Identity Not on file Sexual Orientation Not on file Plan of Treatment Not on file Care Teams Braiding Operator Relationship Specialty Start Date End Date Leander Carrizales MD [address] [place] [address] PCP - General 09/22/18
--- OUTSIDE RECORDS SUMMARY | 2024-12-22 13:39 | XMS_ITS | Encounter Summary ---
Author Organization [employer] Address [id number] [address] [place] [address] Care Team Providers Care Building Code Inspector Name Role Phone Unavailable Primary Care Provider Unavailabl e Encounter Details Date Type Department Care Team (Late st Contact Info) Description 12/03/2022 Orders Only [facility] [address] [place] [address] External, Scanning Provider Social History Tobacco Use [...]
--- OUTSIDE RECORDS SUMMARY | 2024-12-22 13:39 | XMS_ITS | Encounter Summary ---
Author Organization [facility] Address [address] [facility] [place] [address] Care Team Providers Care Director Of Athletics Name Role Phone Leander Carrizales MD Primary [...] Care Team (Late st Contact Info) Description 02/01/2025 10:30 AM EDT Ancillary Procedure [facility] [address] [facility] [address] [place] [address] 07/03/2025 10:30 AM EDT Office Visit [facility] MURRAY [address] [place] D [address] [phone] Brianna Barrios DO [address] [phone] documented as of this encounter Visit Diagnoses Not on filedocumented in this encounter Care Teams Director Of Athletics Relationship Specialty Start Date End Date Leander Carrizales MD [address] [place] [address] PCP - General Family Medicine 06/11/23 documented as of this encounter
--- OUTSIDE RECORDS SUMMARY | 2024-12-22 13:40 | XMS_ITS | Patient Health Record ---
Author Organization [facility] in [place] Address [address] [place] [address] Care Team Providers Care Machine Repair Person Name Role Phone Nixon Carrizales Primary Care Provider Hardy Kingtson Unavailable [phone] InderjitYolandaDeepali Unavailable [phone] Trisha Mcneil Unavailable [phone] Allergies Allergen (clinical drug ingredient) Drug/Non Drug [...] 09:00:49 PM Interpretation: Performing Lab: Notes/Report: [facility] , Partial Thromboplastin Time 25.9 22.3-36.2 sec Performing Lab: see note ML - [facility] LB UA DIP NONAUTO WO MICRO [...] UROBILINOGEN neg NITRITE neg LEUKOCYTE ESTERASE large UA DIP NONAUTO WO MICRO (810 02) - IN OFFICE Reviewed date:12/09/2024 12:39:28 PM Interpretation: Performing Lab: Notes/Report: COLOR yellow CLARITY clear GLUCOSE neg BILIRUBIN neg KETONE trace SPECIFIC GRAVITY 1.015 BLOOD trace PH 5 PROTEIN trace UROBILINOGEN neg NITRITE neg LEUKOCYTE ESTERASE trace FOLATE Reviewed date:02/15/2024 10:02:35 PM Interpretation: Performing Lab: Notes/Report: [facility] , Folate 16.30 8.60-58.90 ng/mL Performing Lab: see note - [facility] LB Vitamin B12 Reviewed date:02/16/2024 08:08:35 PM Interpretation: Performing Lab: Notes/Report: [facility] , Vitamin B12 986 285-5141 pg/mL Performed at: [address] [id number] Form Tamper: Dwayne Marquez PhD, Phone: [phone] Performing Lab: see note [facility] Urine Culture, Routine Reviewed date:02/16/2024 08:18:49 PM Interpretation: Performing Lab: Notes/Report: [facility] , Urine Culture, Routine See Below For Report Urine Culture, Routine Urine Culture, Routine Mixed urogenital camilo Urine Culture, Routine Urine Culture, Routine Less than 10,000 colonies/mL Urine Culture, Routine Urine Culture, Routine Performed at: [facility] Urine Culture, Routine Urine Culture, Routine [address] [place] [phone] Urine Culture, Routine Urine Culture, Routine Form Tamper: Gael Marquez PhD, Phone: [phone] Urine Culture, Routine Performing Lab: see note LC - [facility] LB SEE REPORT - Supervisor Gear Repair Id information not found for OBX-specific associate producer legend CBC AUTO DIFF Reviewed date:10/12/2024 09:00:49 PM Interpretation: Performing Lab: Notes/Report: [facility] , White Blood Count 8.6 4.0-11.0 10 [...] 3/uL Performing Lab: see note ML - [facility] FREE T3 Reviewed date:10/12/2024 09:00:49 PM Interpretation: Performing Lab: Notes/Report: [facility] Free T3 2.10 2.18-3.98 pg/mL Performing Lab: see note ML - [facility] LB GLYCOHEMOGLOBIN A1C Reviewed date:10/12/2024 09:00:49 PM Interpretation: Performing Lab: Notes/Report: [facility] , Glycohemoglobin A1C 5.3 4.5-6.2 % > 7.0 ADA RECOMMENDED LIMIT 4.0 - 6.0 ADA THERAPEUTIC TARGET < 7.0 ACTION SUGGESTED Estimated Average Glucose 105 Performing Lab: see note ML - [facility] IRON Reviewed date:10/12/2024 09:00:49 PM Interpretation: Performing Lab: Notes/Report: [facility] , Iron 99.0 50.0-170.0 ug/dL Performing Lab: see note ML - [facility] LB LIPID PROFILE Reviewed date:10/12/2024 09:00:49 PM Interpretation: Performing Lab: Notes/Report: [facility] , Triglycerides 62 <=150 mg/dL Cholesterol [...] RISK Performing Lab: see note ML - [facility] LB PROF 14(COMP METB) Reviewed date:10/12/2024 09:00:49 PM Interpretation: Performing Lab: Notes/Report: [facility] , Sodium 141 136-145 mmol/L Potassium [...] 0.8 Performing Lab: see note ML - [facility] LB T4 Reviewed date:10/12/2024 09:00:49 PM Interpretation: Performing Lab: Notes/Report: [facility] , T4 Thyroxine 11.10 4.80-13.90 ug/dL Performing Lab: see note - [facility] LB TSH Reviewed date:10/12/2024 09:00:49 PM Interpretation: Performing Lab: Notes/Report: [facility] , Thyroid Stimulating Hormone 0.581 0.358-3.740 uIU/mL Performing Lab: see note - [facility] LB VITAMIN D 25 [place] Reviewed date:10/12/2024 09:00:49 PM Interpretation: Performing Lab: Notes/Report: [facility] , Vitamin D 35.0 >100 ng/mL Potential Toxicity <20 ng/mL Vit D deficient 20-<30 ng/mL Vit D insufficient 30-100 ng/mL Vit D sufficient Performing Lab: see note - [facility] LB Occult Blood* Reviewed date:12/07/2024 12:58:25 PM Interpretation: Performing Lab: Notes/Report: [facility] , Occult Blood Positive Performing Lab: see note - [facility] LB Urine Culture - [facility] Reviewed date:12/12/2024 03:54:27 PM Interpretation: Performing Lab: Notes/Report: [facility] , Urine Culture - [facility] See Below For Report Urine Culture - [facility] Organism Comments Isolated Organism: 1.2 Antibiotic Interpretation BEATRIZ Status Urine Culture - [facility] Organism: 1.1 Testing performed at [facility] Urine Culture - [facility] Organism Comments O:ESCCOL O:MRSA Isolated Antibiotic Interpretation BEATRIZ Status Urine Culture - [facility] [address] [place] [address] Urine Culture - [facility] Organism Comments Isolated Organism: 1.2 Antibiotic Interpretation BEATRIZ Status Urine Culture - [facility] Organism: 1.1 Testing performed at [facility] Urine Culture - [facility] Organism Comments O:ESCCOL O:MRSA Isolated Antibiotic Interpretation BEATRIZ Status Urine Culture - [facility] See Below For Report Urine Culture - [facility] Organism Comments Isolated Organism: 1.2 Antibiotic Interpretation BEATRIZ Status Urine Culture - [facility] Organism: 1.1 Testing performed at [facility] Urine Culture - [facility] Organism Comments O:ESCCOL O:MRSA Isolated Antibiotic Interpretation BEATRIZ Status Urine Culture - [facility] See Below For Report Urine Culture - [facility] Organism Comments Isolated Organism: 1.2 Antibiotic Interpretation BEATRIZ Status Urine Culture - [facility] Organism: 1.1 Testing performed at [facility] Urine Culture - [facility] Organism Comments O:ESCCOL O:MRSA Isolated Antibiotic Interpretation BEATRIZ Status Urine Culture - [facility] 15,000 CFU/ML Urine Culture - [facility] Organism Comments Isolated Organism: 1.2 Antibiotic Interpretation BEATRIZ Status Urine Culture - [facility] Organism: 1.1 Testing performed at [facility] Urine Culture - [facility] Organism Comments O:ESCCOL O:MRSA Isolated Antibiotic Interpretation BEATRIZ Status Urine Culture - [facility] See Below For Report Urine Culture - [facility] Organism Comments Isolated Organism: 1.2 Antibiotic Interpretation BEATRIZ Status Urine Culture - [facility] Organism: 1.1 Testing performed at [facility] Urine Culture - FR Organism Comments O:ESCCOL O:MRSA Isolated Antibiotic Interpretation BEATRIZ Status Urine Culture - [facility] See Below For Report Urine Culture - [facility] Organism Comments Isolated Organism: 1.2 Antibiotic Interpretation BEATRIZ Status Urine Culture - [facility] Organism: 1.1 Testing performed at [facility] Urine Culture - [facility] Organism Comments O:ESCCOL O:MRSA Isolated Antibiotic Interpretation BEATRIZ Status Urine Culture - [facility] 75,000 CFU/ML Urine Culture - [facility] Organism Comments Isolated Organism: 1.2 Antibiotic Interpretation BEATRIZ Status Urine Culture - [facility] Organism: 1.1 Testing performed at [facility] Urine Culture - FR Organism Comments O:ESCCOL O:MRSA Isolated Antibiotic Interpretation BEATRIZ Status Urine Culture - [facility] See Below For Report Urine Culture - [facility] Organism Comments Isolated Organism: 1.2 Antibiotic Interpretation BEATRIZ Status Urine Culture - [facility] Organism: 1.1 Testing performed at [facility] Urine Culture - [facility] Organism Comments O:ESCCOL O:MRSA Isolated Antibiotic Interpretation BEATRIZ Status Urine Culture - [facility] Amikacin S F Urine Culture - [facility] Organism Comments Isolated Organism: 1.2 Antibiotic Interpretation BEATRIZ Status Urine Culture - [facility] Organism: 1.1 Testing performed at [facility] Urine Culture - FR Organism Comments O:ESCCOL O:MRSA Isolated Antibiotic Interpretation BEATRIZ Status Urine Culture - [facility] Amoxicillin/Clavula blanche S F Urine Culture - [facility] Organism Comments Isolated Organism: 1.2 Antibiotic Interpretation BEATRIZ Status Urine Culture - [facility] Organism: 1.1 Testing performed at [facility] Urine Culture - FR Organism Comments O:ESCCOL O:MRSA Isolated Antibiotic Interpretation BEATRIZ Status Urine Culture - [facility] Ampicillin S F Urine Culture - [facility] Organism Comments Isolated Organism: 1.2 Antibiotic Interpretation BEATRIZ Status Urine Culture - [facility] Organism: 1.1 Testing performed at [facility] Urine Culture - FR Organism Comments O:ESCCOL O:MRSA Isolated Antibiotic Interpretation BEATRIZ Status Urine Culture - [facility] Aztreonam S F Urine Culture - [facility] Organism Comments Isolated Organism: 1.2 Antibiotic Interpretation BEATRIZ Status Urine Culture - [facility] Organism: 1.1 Testing performed at [facility] Urine Culture - FR Organism Comments O:ESCCOL O:MRSA Isolated Antibiotic Interpretation BEATRIZ Status Urine Culture - [facility] Ceftazidime S F Urine Culture - [facility] Organism Comments Isolated Organism: 1.2 Antibiotic Interpretation BEATRIZ Status Urine Culture - [facility] Organism: 1.1 Testing performed at [facility] Urine Culture - FR Organism Comments O:ESCCOL O:MRSA Isolated Antibiotic Interpretation BEATRIZ Status Urine Culture - [facility] Ceftazidime/Avibact am S F Urine Culture - [facility] Organism Comments Isolated Organism: 1.2 Antibiotic Interpretation BEATRIZ Status Urine Culture - FR Organism: 1.1 Testing performed at [facility] Urine Culture - FR Organism Comments O:ESCCOL O:MRSA Isolated Antibiotic Interpretation BEATRIZ Status Urine Culture - FR Ceftolozane/Tazobac bansal S F Urine Culture - [facility] Organism Comments Isolated Organism: 1.2 Antibiotic Interpretation BEATRIZ Status Urine Culture - [facility] Organism: 1.1 Testing performed at [facility] Urine Culture - FR Organism Comments O:ESCCOL O:MRSA Isolated Antibiotic Interpretation BEATRIZ Status Urine Culture - FR Ciprofloxacin R F Urine Culture - [facility] Organism Comments Isolated Organism: 1.2 Antibiotic Interpretation BEATRIZ Status Urine Culture - [facility] Organism: 1.1 Testing performed at [facility] Urine Culture - FR Organism Comments O:ESCCOL O:MRSA Isolated Antibiotic Interpretation BEATRIZ Status Urine Culture - FR Ertapenem S F Urine Culture - [facility] Organism Comments Isolated Organism: 1.2 Antibiotic Interpretation BEATRIZ Status Urine Culture - [facility] Organism: 1.1 Testing performed at [facility] Urine Culture - FR Organism Comments O:ESCCOL O:MRSA Isolated Antibiotic Interpretation BEATRIZ Status Urine Culture - [facility] Gentamicin S F Urine Culture - [facility] Organism Comments Isolated Organism: 1.2 Antibiotic Interpretation BEATRIZ Status Urine Culture - FR Organism: 1.1 Testing performed at [facility] Urine Culture - [facility] Organism Comments O:ESCCOL O:MRSA Isolated Antibiotic Interpretation BEATRIZ Status Urine Culture - [facility] Levofloxacin R F Urine Culture - [facility] Organism Comments Isolated Organism: 1.2 Antibiotic Interpretation BEATRIZ Status Urine Culture - [facility] Organism: 1.1 Testing performed at [facility] Urine Culture - [facility] Organism Comments O:ESCCOL O:MRSA Isolated Antibiotic Interpretation BEATRIZ Status Urine Culture - [facility] Meropenem S F Urine Culture - [facility] Organism Comments Isolated Organism: 1.2 Antibiotic Interpretation BEATRIZ Status Urine Culture - [facility] Organism: 1.1 Testing performed at [facility] Urine Culture - [facility] Organism Comments O:ESCCOL O:MRSA Isolated Antibiotic Interpretation BEATRIZ Status Urine Culture - [facility] Meropenem/Vaborbact am S F Urine Culture - [facility] Organism Comments Isolated Organism: 1.2 Antibiotic Interpretation BEATRIZ Status Urine Culture - [facility] Organism: 1.1 Testing performed at [facility] Urine Culture - [facility] Organism Comments O:ESCCOL O:MRSA Isolated Antibiotic Interpretation BEATRIZ Status Urine Culture - [facility] Nitrofurantoin S F Urine Culture - [facility] Organism Comments Isolated Organism: 1.2 Antibiotic Interpretation BEATRIZ Status Urine Culture - [facility] Organism: 1.1 Testing performed at [facility] Urine Culture - [facility] Organism Comments O:ESCCOL O:MRSA Isolated Antibiotic Interpretation BEATRIZ Status Urine Culture - [facility] Tetracycline S F Urine Culture - [facility] Organism Comments Isolated Organism: 1.2 Antibiotic Interpretation BEATRIZ Status Urine Culture - [facility] Organism: 1.1 Testing performed at [facility] Urine Culture - [facility] Organism Comments O:ESCCOL O:MRSA Isolated Antibiotic Interpretation BEATRIZ Status Urine Culture - [facility] Tigecycline S F Urine Culture - [facility] Organism Comments Isolated Organism: 1.2 Antibiotic Interpretation BEATRIZ Status Urine Culture - [facility] Organism: 1.1 Testing performed at [facility] Urine Culture - [facility] Organism Comments O:ESCCOL O:MRSA Isolated Antibiotic Interpretation BEATRIZ Status Urine Culture - [facility] Tobramycin S F Urine Culture - [facility] Organism Comments Isolated Organism: 1.2 Antibiotic Interpretation BEATRIZ Status Urine Culture - [facility] Organism: 1.1 Testing performed at [facility] Urine Culture - [facility] Organism Comments O:ESCCOL O:MRSA Isolated Antibiotic Interpretation BEATRIZ Status Urine Culture - [facility] Ampicillin/Sulbacta m S F Urine Culture - [facility] Organism Comments Isolated Organism: 1.2 Antibiotic Interpretation BEATRIZ Status Urine Culture - [facility] Organism: 1.1 Testing performed at [facility] Urine Culture - [facility] Organism Comments O:ESCCOL O:MRSA Isolated Antibiotic Interpretation BEATRIZ Status Urine Culture - [facility] Cefazolin S F Urine Culture - [facility] Organism Comments Isolated Organism: 1.2 Antibiotic Interpretation BEATRIZ Status Urine Culture - [facility] Organism: 1.1 Testing performed at [facility] Urine Culture - [facility] Organism Comments O:ESCCOL O:MRSA Isolated Antibiotic Interpretation BEATRIZ Status Urine Culture - [facility] Cefepime S F Urine Culture - [facility] Organism Comments Isolated Organism: 1.2 Antibiotic Interpretation BEATRIZ Status Urine Culture - [facility] Organism: 1.1 Testing performed at [facility] Urine Culture - [facility] Organism Comments O:ESCCOL O:MRSA Isolated Antibiotic Interpretation BEATRIZ Status Urine Culture - [facility] Ceftriaxone S F Urine Culture - [facility] Organism Comments Isolated Organism: 1.2 Antibiotic Interpretation BEATRIZ Status Urine Culture - [facility] Organism: 1.1 Testing performed at [facility] Urine Culture - [facility] Organism Comments O:ESCCOL O:MRSA Isolated Antibiotic Interpretation BEATRIZ Status Urine Culture - [facility] Cefuroxime I F Urine Culture - [facility] Organism Comments Isolated Organism: 1.2 Antibiotic Interpretation BEATRIZ Status Urine Culture - [facility] Organism: 1.1 Testing performed at [facility] Urine Culture - [facility] Organism Comments O:ESCCOL O:MRSA Isolated Antibiotic Interpretation BEATRIZ Status Urine Culture - [facility] Piperacillin/Tazoba ctam S F Urine Culture - [facility] Organism Comments Isolated Organism: 1.2 Antibiotic Interpretation BEATRIZ Status Urine Culture - [facility] Organism: 1.1 Testing performed at [facility] Urine Culture - [facility] Organism Comments O:ESCCOL O:MRSA Isolated Antibiotic Interpretation BEATRIZ Status Urine Culture - [facility] Trimethoprim/Sulfa S F Urine Culture - [facility] Organism Comments Isolated Organism: 1.2 Antibiotic Interpretation BEATRIZ Status Urine Culture - [facility] Organism: 1.1 Testing performed at [facility] Urine Culture - [facility] Organism Comments O:ESCCOL O:MRSA Isolated Antibiotic Interpretation BEATRIZ Status Urine Culture - [facility] See Below For Report Urine Culture - [facility] Organism Comments Isolated Organism: 1.2 Antibiotic Interpretation BEATRIZ Status Urine Culture - [facility] Organism: 1.1 Testing performed at [facility] Urine Culture - [facility] Organism Comments O:ESCCOL O:MRSA Isolated Antibiotic Interpretation BEATRIZ Status Urine Culture - [facility] Daptomycin S F Urine Culture - [facility] Organism Comments Isolated Organism: 1.2 Antibiotic Interpretation BEATRIZ Status Urine Culture - [facility] Organism: 1.1 Testing performed at [facility] Urine Culture - FR Organism Comments O:ESCCOL O:MRSA Isolated Antibiotic Interpretation BEATRIZ Status Urine Culture - FR Linezolid S F Urine Culture - [facility] Organism Comments Isolated Organism: 1.2 Antibiotic Interpretation BEATRIZ Status Urine Culture - [facility] Organism: 1.1 Testing performed at [facility] Urine Culture - FR Organism Comments O:ESCCOL O:MRSA Isolated Antibiotic Interpretation BEATRIZ Status Urine Culture - [facility] Nitrofurantoin S F Urine Culture - [facility] Organism Comments Isolated Organism: 1.2 Antibiotic Interpretation BEATRIZ Status Urine Culture - [facility] Organism: 1.1 Testing performed at [facility] Urine Culture - FR Organism Comments O:ESCCOL O:MRSA Isolated Antibiotic Interpretation BEATRIZ Status Urine Culture - FR Oxacillin Beatriz R F Urine Culture - [facility] Organism Comments Isolated Organism: 1.2 Antibiotic Interpretation BEATRIZ Status Urine Culture - [facility] Organism: 1.1 Testing performed at [facility] Urine Culture - FR Organism Comments O:ESCCOL O:MRSA Isolated Antibiotic Interpretation BEATRIZ Status Urine Culture - FR Penicillin R F Urine Culture - [facility] Organism Comments Isolated Organism: 1.2 Antibiotic Interpretation BEATRIZ Status Urine Culture - [facility] Organism: 1.1 Testing performed at [facility] Urine Culture - FR Organism Comments O:ESCCOL O:MRSA Isolated Antibiotic Interpretation BEATRIZ Status Urine Culture - [facility] Tetracycline S F Urine Culture - [facility] Organism Comments Isolated Organism: 1.2 Antibiotic Interpretation BEATRIZ Status Urine Culture - [facility] Organism: 1.1 Testing performed at [facility] Urine Culture - FR Organism Comments O:ESCCOL O:MRSA Isolated Antibiotic Interpretation BEATRIZ Status Urine Culture - [facility] Vancomycin S F Urine Culture - [facility] Organism Comments Isolated Organism: 1.2 Antibiotic Interpretation BEATRIZ Status Urine Culture - [facility] Organism: 1.1 Testing performed at [facility] Urine Culture - FR Organism Comments O:ESCCOL O:MRSA Isolated Antibiotic Interpretation BEATRIZ Status Urine Culture - [facility] Ceftaroline S F Urine Culture - [facility] Organism Comments Isolated Organism: 1.2 Antibiotic Interpretation BEATRIZ Status Urine Culture - [facility] Organism: 1.1 Testing performed at [facility] Urine Culture - FR Organism Comments O:ESCCOL O:MRSA Isolated Antibiotic Interpretation BEATRIZ Status Urine Culture - [facility] Trimethoprim/Sulfa S F Urine Culture - [facility] Organism Comments Isolated Organism: 1.2 Antibiotic Interpretation BEATRIZ Status Urine Culture - [facility] Organism: 1.1 Testing performed at [facility] Urine Culture - [facility] Organism Comments O:ESCCOL O:MRSA Isolated Antibiotic Interpretation BEATRIZ Status Performing Lab: see note ML - The [facility] LB SEE REPORT - Supervisor Gear Repair Id information not found for OBX-specific associate producer legend XR chest 2V Reviewed date:12/20/2024 10:47:37 PM Interpretation: Performing Lab: Notes/Report: Source Facility: [place] [address] XRay Report Signed Patient: LEELEE CEDILLO MR#: [id number] : 1950 Acct:[id number] Age/Sex: 74 / F ADM Date: 12/20/24 Loc: RAD Attending Dr: Sara Carrizales M.D. Ordering Physician: Sara Carrizales M.D. Date of Service: 12/20/24 Procedure(s): XR chest 2V Accession Number(s): [id number] cc: Sara Carrizales M.D. [place] [id number] Patient Name: LEELEE CEDILLO MRN: [id number] date: 1950 Sex: F Assigned Patient Location: [facility] Current Patient Location: [facility] Accession/Order Number: [id number] Exam Date: 12/20/2024 12:26 Report Date: 12/20/2024 12:56 At the request of: SARA CARRIZALES MD Procedure: XR lumbar spine min 4V CLINICAL HISTORY: acute bronchitis. Acute on chronic back and bilateral hip pain. No reported injury. Previous left hip replacement. ADULT PELVIS WITH BILATERAL HIPS - 5 views COMPARISON: 05/21/2022 AP view of the pelvis as well as AP and frog-lateral views of both hips were obtained. A left hip prosthesis is again visualized. The hardware appears intact and unchanged from the prior. No acute fracture or dislocation is noted. The right hip joint space is maintained and minor degenerative change is seen. There is sclerosis at the SI joints. Dextroscoliotic curvature as well as postoperative changes are seen at the lower imaged lumbar spine. The soft tissues are unremarkable. XR/XR chest 2V IMPRESSION: POSTOPERATIVE CHANGES, DESCRIBED. NO ACUTE PLAIN FILM FINDINGS. LUMBAR SPINE - 4 views COMPARISON: 09/23/2021 and MRI 02/03/2023 AP, lateral and both oblique views were obtained. There is osteopenia. Multilevel laminectomy and fusion is present from T11 through L4 with posterior rods and pedicle screws skipping the L2 level. There are lateral rods and screws at L1-2 on the left. As visualized, the hardware appears intact and unchanged from the prior. There is reversal of the normal lumbar lordosis. No developing compression fractures or change in alignment are seen. There is disc space narrowing at L4-5 and the lumbosacral junction where there is endplate sclerosis and subchondral cystic change, also seen on the MRI. The SI joints show mild sclerosis. There is atherosclerotic plaque at the aorta. IMPRESSION: MULTILEVEL POSTOPERATIVE CHANGES, SIMILAR THE PRIOR. LOSS OF NORMAL LUMBAR LORDOSIS AND DEGENERATIVE CHANGES. PA AND LATERAL CHEST: COMPARISON: None There is shallow inspiration. There is no focal parenchymal consolidation, effusion or pneumothorax. The cardiac, hilar and mediastinal silhouettes are within normal limits. There is no vascular congestion. The visualized bony thorax is intact. Thoracolumbar fusion hardware is seen. IMPRESSION: NO ACUTE CARDIOPULMONARY ABNORMALITY. Impression dictated by: Ina Loredo M.D. 12/20/2024 12:56 PM Dictation Location: [place] [address] Electronically authenticated by: [id number] Y Date: 12/20/2024 12:56 Dictated By: Ina Loredo M.D. 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 Ordering Physician: Sara Carrizales M.D. Date of Service: 12/20/24 Procedure(s): XR parisa st 2V Accession Number(s): [id number] cc: Sara Carrizales M.D. [place] [id number] Patient Name: LEELEE CEDILLO MRN: [id number] date: 1950 Sex: F Assigned Patient Location: [facility] Current Patient Location: RAD Accession/Order Numb er: [id number] Exam Date: 12/20/2024 12:26 Report Date: 12/20/2024 12:56 At the request of: SARA CARRIZALES MD Procedure: XR lumbar spine min 4V CLINICAL HISTORY: ac nondalton bronchitis. Acute on chronic back and bilateral hip pain. No reported injury. Previous left hip replacement. ADULT PELVIS WITH BILATERAL HIPS - 5 views COMPARISON: 05/21/2022 AP view of the pelvi s as well as AP and frog-lateral views of both hips were obtained. A left hip prosthesis is again visualized. The hardware appears intact and unchanged from the prior. No acute fracture or dislocation is noted. The right hip joint space is maintained and minor degenerative change is seen. There is sclerosis at the SI joints. Dextroscoliotic curvature as well as postoperativ e changes are seen at the lower imaged lumbar spine. The soft tissues are unremarkable. XR/XR chest 2V IMPRESSION: POSTOPERATIVE CHANGE S, DESCRIBED. NO ACUTE PLAIN FILM FINDINGS. LUMBAR SPINE - 4 views COMPARISON: 09/23/2021 and MRI 02/03/2023 AP, lateral and both oblique views were obtained. There is osteopenia. Multilevel laminecto my and fusion is present from T11 through L4 with posterior rods and pedicle screws skipping the L2 level. There are lateral rods and screws at L 1-2 on the left. As visualized, the hardware appears intact and unchanged from the prior. There is reversal of the normal lumbar lordosis. No develop ing compression fractures or change in alignment are seen. There is disc space narrowing at L4-5 and the lumbosacral junction where there is endpl ate sclerosis and subchondral cystic change, also seen on the MRI. The SI join ts show mild sclerosis. There is atherosclerotic plaque at the aorta. IMPRESSION: MULTILEVEL POSTOPERATIVE CHANGES, SIMILAR THE PRIOR. LOSS OF NORMAL LUMBA R LORDOSIS AND DEGENERATIVE CHANGES. PA AND LATERAL CHEST: COMPARISON: None There is shallow inspiration. There is no focal parenchymal consolidation, effusion or pneumothorax. The cardiac, hilar and mediastinal silhouettes are within normal limits . There is no vascular congestion. The visualized bony thorax is intact. Thoracolumbar fusion hardware is seen. IMPRESSION: NO ACUTE CARDIOPULMONARY ABNORMALITY. Impression dictated by: Ina Loredo M.D. 12/20/2024 12:56 PM Dictation Location: [place] [address] Electronically authenticated by: [id number] Y Date: 12/20/2024 12:56 Dictated By: Ina Loredo M.D. Signed By: 12/20/24 1259 DD/ 1256 TD/TT: Gyroscopic Instrument Mechanic: XR lumbar spine min 4V Reviewed date:12/20/2024 10:47:37 PM Interpretation: Performing Lab: Notes/Report: Source Facility: [place] [address] XRay Report Signed Patient: LEELEE CEDILLO MR#: [id number] : 1950 Acct:[id number] Age/Sex: 74 / F ADM Date: 12/20/24 Loc: [facility] Attending Dr: Sara Carrizales M.D. Ordering Physician: Sara Carrizales M.D. Date of Service: 12/20/24 Procedure(s): XR lumbar spine min 4V Accession Number(s): [id number] cc: Sara Carrizales M.D. [place] [address] Patient Name: LEELEE CEDILLO MRN: [id number] date: 1950 Sex: F Assigned Patient Location: [facility] Current Patient Location: [facility] Accession/Order Number: [id number] Exam Date: 12/20/2024 12:26 Report Date: 12/20/2024 12:56 At the request of: SARA CARRIZALES MD Procedure: XR lumbar spine min 4V CLINICAL HISTORY: acute bronchitis. Acute on chronic back and bilateral hip pain. No reported injury. Previous left hip replacement. ADULT PELVIS WITH BILATERAL HIPS - 5 views COMPARISON: 05/21/2022 AP view of the pelvis as well as AP and frog-lateral views of both hips were obtained. A left hip prosthesis is again visualized. The hardware appears intact and unchanged from the prior. No acute fracture or dislocation is noted. The right hip joint space is maintained and minor degenerative change is seen. There is sclerosis at the SI joints. Dextroscoliotic curvature as well as postoperative changes are seen at the lower imaged lumbar spine. The soft tissues are unremarkable. XR/XR lumbar spine min 4V IMPRESSION: POSTOPERATIVE CHANGES, DESCRIBED. NO ACUTE PLAIN FILM FINDINGS. LUMBAR SPINE - 4 views COMPARISON: 09/23/2021 and MRI 02/03/2023 AP, lateral and both oblique views were obtained. There is osteopenia. Multilevel laminectomy and fusion is present from T11 through L4 with posterior rods and pedicle screws skipping the L2 level. There are lateral rods and screws at L1-2 on the left. As visualized, the hardware appears intact and unchanged from the prior. There is reversal of the normal lumbar lordosis. No developing compression fractures or change in alignment are seen. There is disc space narrowing at L4-5 and the lumbosacral junction where there is endplate sclerosis and subchondral cystic change, also seen on the MRI. The SI joints show mild sclerosis. There is atherosclerotic plaque at the aorta. IMPRESSION: MULTILEVEL POSTOPERATIVE CHANGES, SIMILAR THE PRIOR. LOSS OF NORMAL LUMBAR LORDOSIS AND DEGENERATIVE CHANGES. PA AND LATERAL CHEST: COMPARISON: None There is shallow inspiration. There is no focal parenchymal consolidation, effusion or pneumothorax. The cardiac, hilar and mediastinal silhouettes are within normal limits. There is no vascular congestion. The visualized bony thorax is intact. Thoracolumbar fusion hardware is seen. IMPRESSION: NO ACUTE CARDIOPULMONARY ABNORMALITY. Impression dictated by: Ina Loredo M.D. 12/20/2024 12:56 PM Dictation Location: [facility] Electronically authenticated by: [id number] Y Date: 12/20/2024 12:56 Dictated By: Ina Loredo M.D. Signed By: 12/20/24 1259 DD/ 1256 TD/TT: Gyroscopic Instrument Mechanic: [place] [address] XRay Report Signed Patient: KULWINDER CEDILLO MR#: [id number] : 1950 Acct:[id number] Age/Sex: 74 / F ADM Date: 12/20/24 Loc: [facility] Attending Dr: Gideon Carrizales M.D. Ordering Physician: Sara Carrizales M.D. Date of Service: 12/20/24 Procedure(s): XR lum bar spine min 4V Accession Number(s): [id number] cc: Sara Carrizales M.D. [place] [address] Patient Name: LEELEE CEDILLO MRN: [id number] date: 1950 Sex: F Assigned Patient Location: [facility] Current Patient Location: [facility] Accession/Order Camilo er: [id number] Exam Date: 12/20/2024 12:26 Report Date: 12/20/2024 12:56 At the request of: SARA CARRIZALES MD Procedure: XR lumbar spine min 4V CLINICAL HISTORY: ac nondalton bronchitis. Acute on chronic back and bilateral hip pain. No reported injury. Previous left hip replacement. ADULT PELVIS WITH BILATERAL HIPS - 5 views COMPARISON: 05/21/2022 AP view of the pelvi s as well as AP and frog-lateral views of both hips were obtained. A left hip prosthesis is again visualized. The hardware appears intact and unchanged from the prior. No acute fracture or dislocation is noted. The right hip joint space is maintained and minor degenerative change is seen. There is sclerosis at the SI joints. Dextroscoliotic curvature as well as postoperativ e changes are seen at the lower imaged lumbar spine. The soft tissues are unremarkable. XR/XR lumbar spine min 4V IMPRESSION: POSTOPERATIVE CHANGE S, DESCRIBED. NO ACUTE PLAIN FILM FINDINGS. LUMBAR SPINE - 4 views COMPARISON: 09/23/2021 and MRI 02/03/2023 AP, lateral and both oblique views were obtained. There is osteopenia. Multilevel laminecto my and fusion is present from T11 through L4 with posterior rods and pedicle screws skipping the L2 level. There are lateral rods and screws at L 1-2 on the left. As visualized, the hardware appears intact and unchanged from the prior. There is reversal of the normal lumbar lordosis. No develop ing compression fractures or change in alignment are seen. There is disc space narrowing at L4-5 and the lumbosacral junction where there is endpl ate sclerosis and subchondral cystic change, also seen on the MRI. The SI join ts show mild sclerosis. There is atherosclerotic plaque at the aorta. IMPRESSION: MULTILEVEL POSTOPERATIVE CHANGES, SIMILAR THE PRIOR. LOSS OF NORMAL LUMBA R LORDOSIS AND DEGENERATIVE CHANGES. PA AND LATERAL CHEST: COMPARISON: None There is shallow inspiration. There is no focal parenchymal consolidation, effusion or pneumothorax. The cardiac, hilar and mediastinal silhouettes are within normal limits . There is no vascular congestion. The visualized bony thorax is intact. Thoracolumbar fusion hardware is seen. IMPRESSION: NO ACUTE CARDIOPULMONARY ABNORMALITY. Impression dictated by: Ina Loredo M.D. 12/20/2024 12:56 PM Dictation Location: [place] [address] Electronically authenticated by: [id number] Y Date: 12/20/2024 12:56 Dictated By: Ina Loredo M.D. Signed By: 12/20/24 1259 DD/ 1256 TD/TT: Gyroscopic Instrument Mechanic: XR hip BI w PEL 1V Reviewed date:12/20/2024 10:47:37 PM Interpretation: Performing Lab: Notes/Report: Source Facility: [place] [address] XRay Report Signed Patient: LEELEE CEDILLO MR#: [id number] : 1950 Acct:[id number] Age/Sex: 74 / F ADM Date: 12/20/24 Loc: [facility] Attending Dr: Sara Carrizales M.D. Ordering Physician: Sara Carrizales M.D. Date of Service: 12/20/24 Procedure(s): XR hip BI w PEL 1V Accession Number(s): [id number] cc: Sara Carrizales M.D. [place] [id number] Patient Name: LEELEE CEDILLO MRN: [id number] date: 1950 Sex: F Assigned Patient Location: [facility] Current Patient Location: [facility] Accession/Order Number: [id number] Exam Date: 12/20/2024 12:26 Report Date: 12/20/2024 12:56 At the request of: SARA CARRIZALES MD Procedure: XR lumbar spine min 4V CLINICAL HISTORY: acute bronchitis. Acute on chronic back and bilateral hip pain. No reported injury. Previous left hip replacement. ADULT PELVIS WITH BILATERAL HIPS - 5 views COMPARISON: 05/21/2022 AP view of the pelvis as well as AP and frog-lateral views of both hips were obtained. A left hip prosthesis is again visualized. The hardware appears intact and unchanged from the prior. No acute fracture or dislocation is noted. The right hip joint space is maintained and minor degenerative change is seen. There is sclerosis at the SI joints. Dextroscoliotic curvature as well as postoperative changes are seen at the lower imaged lumbar spine. The soft tissues are unremarkable. XR/XR hip BI w PEL 1V IMPRESSION: POSTOPERATIVE CHANGES, DESCRIBED. NO ACUTE PLAIN FILM FINDINGS. LUMBAR SPINE - 4 views COMPARISON: 09/23/2021 and MRI 02/03/2023 AP, lateral and both oblique views were obtained. There is osteopenia. Multilevel laminectomy and fusion is present from T11 through L4 with posterior rods and pedicle screws skipping the L2 level. There are lateral rods and screws at L1-2 on the left. As visualized, the hardware appears intact and unchanged from the prior. There is reversal of the normal lumbar lordosis. No developing compression fractures or change in alignment are seen. There is disc space narrowing at L4-5 and the lumbosacral junction where there is endplate sclerosis and subchondral cystic change, also seen on the MRI. The SI joints show mild sclerosis. There is atherosclerotic plaque at the aorta. IMPRESSION: MULTILEVEL POSTOPERATIVE CHANGES, SIMILAR THE PRIOR. LOSS OF NORMAL LUMBAR LORDOSIS AND DEGENERATIVE CHANGES. PA AND LATERAL CHEST: COMPARISON: None There is shallow inspiration. There is no focal parenchymal consolidation, effusion or pneumothorax. The cardiac, hilar and mediastinal silhouettes are within normal limits. There is no vascular congestion. The visualized bony thorax is intact. Thoracolumbar fusion hardware is seen. IMPRESSION: NO ACUTE CARDIOPULMONARY ABNORMALITY. Impression dictated by: Ina Loredo M.D. 12/20/2024 12:56 PM Dictation Location: [facility] Electronically authenticated by: [id number] Y Date: 12/20/2024 12:56 Dictated By: Ina Loredo M.D. Signed By: 12/20/24 1259 DD/ 1256 TD/TT: Gyroscopic Instrument Mechanic: The [address] [address] XRay Report Signed Patient: KULWINDER CEDILLO MR#: [id number] : 1950 Acct:[id number] Age/Sex: 74 / F ADM Date: 12/20/24 Loc: [facility] Attending Dr: Gideon Carrizales M.D. Ordering Physician: Sara Carrizales M.D. Date of Service: 12/20/24 Procedure(s): XR hip BI w PEL 1V Accession Number(s): [id number] cc: Sara Carrizales M.D. [address] [address] Patient Name: LEELEE CEDILLO MRN: [id number] date: 1950 Sex: F Assigned Patient Location: [facility] Current Patient Location: [facility] Accession/Order Numb er: [id number] Exam Date: 12/20/2024 12:26 Report Date: 12/20/2024 12:56 At the request of: SARA CARRIZALES MD Procedure: XR lumbar spine min 4V CLINICAL HISTORY: ac nondalton bronchitis. Acute on chronic back and bilateral hip pain. No reported injury. Previous left hip replacement. ADULT PELVIS WITH BILATERAL HIPS - 5 views COMPARISON: 05/21/2022 AP view of the pelvi s as well as AP and frog-lateral views of both hips were obtained. A left hip prosthesis is again visualized. The hardware appears intact and unchanged from the prior. No acute fracture or dislocation is noted. The right hip joint space is maintained and minor degenerative change is seen. There is sclerosis at the SI joints. Dextroscoliotic curvature as well as postoperativ e changes are seen at the lower imaged lumbar spine. The soft tissues are unremarkable. XR/XR hip BI w PEL 1V IMPRESSION: POSTOPERATIVE CHANGE S, DESCRIBED. NO ACUTE PLAIN FILM FINDINGS. LUMBAR SPINE - 4 views COMPARISON: 09/23/2021 and MRI 02/03/2023 AP, lateral and both oblique views were obtained. There is osteopenia. Multilevel laminecto my and fusion is present from T11 through L4 with posterior rods and pedicle screws skipping the L2 level. There are lateral rods and screws at L 1-2 on the left. As visualized, the hardware appears intact and unchanged from the prior. There is reversal of the normal lumbar lordosis. No develop ing compression fractures or change in alignment are seen. There is disc space narrowing at L4-5 and the lumbosacral junction where there is endpl ate sclerosis and subchondral cystic change, also seen on the MRI. The SI join ts show mild sclerosis. There is atherosclerotic plaque at the aorta. IMPRESSION: MULTILEVEL POSTOPERATIVE CHANGES, SIMILAR THE PRIOR. LOSS OF NORMAL LUMBA R LORDOSIS AND DEGENERATIVE CHANGES. PA AND LATERAL CHEST: COMPARISON: None There is shallow inspiration. There is no focal parenchymal consolidation, effusion or pneumothorax. The cardiac, hilar and mediastinal silhouettes are within normal limits . There is no vascular congestion. The visualized bony thorax is intact. Thoracolumbar fusion hardware is seen. IMPRESSION: NO ACUTE CARDIOPULMONARY ABNORMALITY. Impression dictated by: Ina Loredo M.D. 12/20/2024 12:56 PM Dictation Location: [place] [address] Electronically authenticated by: [id number] Y Date: 12/20/2024 12:56 Dictated By: Ina Loredo M.D. Signed By: 12/20/24 1259 DD/ 1256 TD/TT: Gyroscopic Instrument Mechanic: LEONOR SO W or MICROSCOPIC Reviewed date:12/09/2024 12:54:35 PM Interpretation: Performing Lab: Notes/Report: The [facility] , Color Urine LT. YELLOW YELLOW Clarity Urine CLEAR CLEAR Specific [place] Urine 1.015 1.005-1.025 pH Urine 6.0 5.0-9.0 Protein Urine NEGATIVE NEG/TRACE mg/dL Glucose Urine UA NEGATIVE NEGATIVE mg/dL Bilirubin Urine NEGATIVE NEGATIVE Ketones Urine NEGATIVE NEGATIVE mg/dL Blood Urine TRACE-I NEGATIVE Nitrite Urine NEGATIVE NEGATIVE Urobilinogen Urine 0.2 0.2-1.0 EU/dL Leukocyte Esterase Urine MODERATE NEGATIVE WBC Urine 10-20 NONE SEEN #/HPF RBC Urine 0-2 0-2 #/HPF Bacteria Urine SMALL NONE SEEN #/HPF Mucus Urine NONE SEEN NONE SEEN Squamous Epithelial Cell Urine FEW NONE/RARE #/LPF Crystals Seen? None Seen None Seen #/HPF Cast Seen? NONE SEEN NONE SEEN #/LPF Performing Lab: see note - [facility] LB Prothrombin Time INR Reviewed date:10/12/2024 09:00:49 PM Interpretation: Performing Lab: Notes/Report: [facility] , Prothrombin Time 10.3 9.0-11.6 sec INR 0.97 2.5-3.5 FOR PROSTHETIC HEART VALVE REPLACEMENT 2.0-3.0 CONDITIONS NOT LISTED BELOW 2.5-3.5 RECURRENT THROMBOSIS DESIRED INR: Performing Lab: see note [facility] UA RANDOM Reviewed date:02/16/2024 08:18:57 PM Interpretation: Performing Lab: Notes/Report: [facility] , Color Urine LT. YELLOW YELLOW Clarity Urine CLEAR CLEAR Specific [place] Urine 1.010 1.005-1.025 pH Urine 6.0 5.0-9.0 Protein Urine NEGATIVE NEG/TRACE mg/dL Glucose Urine UA NEGATIVE NEGATIVE mg/dL Bilirubin Urine NEGATIVE NEGATIVE Ketones Urine NEGATIVE NEGATIVE mg/dL Blood Urine TRACE-I NEGATIVE Nitrite Urine NEGATIVE NEGATIVE Urobilinogen Urine 0.2 0.2-1.0 EU/dL Leukocyte Esterase Urine MODERATE NEGATIVE Performing Lab: see note [facility] COVID-19, Flu A+B IH Reviewed date:10/12/2024 09:00:49 PM Interpretation: Performing Lab: Notes/Report: COVID - FLU A - FLU B - Control + Reason For Referral Diagnosis 1 Arthritis of lumbosa cral spine (M47.817) Diagnosis 2 Lumbar disc disease (M51.9) Diagnosis 3 Other intervertebral disc displacement, lumbar region (M51.26) Referral Organization [facility] Referring Provider First Name Nixon Referring Provider Last Name All Referring Provider [facility] rosita Referred Provider Genet Morris Referred Provider Specialty Neurological Surgery Referral Priority Routine Reason + FH also Diagnosis 1 Blood in stool (K92. 1) Referral Organization [facility] Referring Provider First Name Nixon Referring Provider Last Name All Referring Provider [facility] Shahzad becker Referred Provider Judson Barrios Referred Provider Specialty General Surg sal Referral Priority Routine Medications Medication SIG (Take, Route, Frequency, Duration) Notes Start Date End Date Status Baclofen 20 MG 1 tab Orally qhs 11/21/2024 Active Amoxicillin-Pot Clavulanate 875-125 MG 1 tablet Orally every 12 hrs for 10 days 12/20/2024 Active Vitamin D3 50 MCG (1999 UT) 1 capsule Or ally Once a day for 30 day(s) Active Losartan Potassium 100 MG 1 tablet [...] DX M51.36 for 365 days 10/11/2024 Active Doxycycline Monohydrate 100 MG 1 tablet Orally bid for 10 days 12/20/2024 Active Pantoprazole Sodium 40 MG TAKE 1 TABLET EVERY DAY for 90 Active [employer] Syringes use for monthly b12 injections for 365 days 23G x 1 3ml syringe 08/16/2024 Active Meloxicam 15 MG TAKE 1 TABLET EVERY DAY for 90 Active ALPRAZolam 0.25 MG 1 tablet Orally Twice a day for 30 days F41,9 10/11/2024 Active Alendronate Sodium 70 MG TAKE 1 TABLET E VERY WEEK for 84 Active Triamcinolone Acetonide 0.1 % 1 application Externally bid 11/28/2024 Active Immunizations Vaccine Route Administration Date Status Comme nts Flu, Fluad (75515) 65 yrs and older, single-dose syringe () IM Intramuscular 03/25/2024 Administered Flu, Fluad (16218) 65 yrs+, single-dose syringe (7849-5907) IM Intramuscular 01/20/2023 Administered Tdap (Adacel) IM [...] Problem Status W/U Status Risk Notes Problem 14863357 Acute bronchitis (466.0) Active confirmed Problem Syncope and collapse (488427810) Syncope and collapse (R55) Active confirmed Problem Peripheral vertigo (48045912) Other peripheral vertigo, unspecified ear (H81.399) Active confirmed Problem 790741663 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) Active confirmed Problem 92052545 Other disorder o f circulatory system (I99.8) Active confirmed Problem Unstageable pressure injury of right ankle (disorder) (40884886849067237) Pressure ulcer of right ankle, unspecified stage (L89.519) Active confirmed Problem 016304295 Other intervertebral disc displacement, lumbar region (M51.26) Active confirmed Problem Spasm of back muscles (311055697) Muscle spasm of back (M62.830) Active confirmed Problem Skin symptom change (611283928) Unspecified skin changes (R23.9) Active confirmed Problem 614747355 Frequency of micturition (R35.0) Active confirmed Problem Exposure to communicable disease (908037179) Contact with and (suspected) exposure to other viral communicable diseases (Z20.828) Active confirmed Problem Recurrent urinary tract infection (695863040) Recurrent UTI (N39.0) Active confirmed Problem Hypertension (58245791) Hypertension (I10) Active confirmed Problem Hypothyroidism (51535478) Hypothyroidism (E03.9) Active confirmed Problem Edema (42905078) Edema (R60.9) Active confirmed Problem Varicose vein (42743264) Varicose vein (I86.8) Active confirmed Problem Dyspnea (771859277) Dyspnea (R06.00) Active con firmed Problem Essential hypertension (14838284) Benign essential HTN (I10) Active confirmed Problem Insomnia (469546384) Insomnia (G47.00) Active confirmed Problem Acid reflux (184965724) Acid reflux (K21.9) Active confirmed Problem Urinary incontinence (182331440) Urinary incontinence (R32) Active confirmed Problem Degenerative joint disease (601989625) DJD (degenerative joint disease) (M19.90) Active confirmed Problem Lumbar post-laminectomy syndrome (240682247) Lumbar post-laminectomy syndrome (M96.1) Active confirmed Problem Sinusitis (14581488) Sinusitis (J32.9) Active confirmed Problem Disorder of lumbar disc (463812945) Lumbar disc disease (M51.9) Active confirmed Problem Pharyngitis (489133399) Pharyngitis (J02.9) Active confirmed Problem Acute bronchitis (52964551) Acute bronchitis (J20.9) Active confirmed Problem Sciatica (49373434) Sciatica (M54.30) Active co nfirmed Problem Cellulitis (235983655) Cellulitis (L03.90) Active confirmed Problem Alopecia (12508790) Hair loss (L65.9) Active co nfirmed Problem Seasonal allergic rhinitis (086209533) Seasonal allergic rhinitis (J30.2) Active confirmed Problem Pain of left hand (232245586084041) Left hand pain (M79.642) Active confirmed Problem Vitamin B12 deficiency (non anemic) (49422915) B12 deficiency (E53.8) Active confirmed Problem Foot ulcer due to type 2 diabetes mellitus (9246753815036) Type 2 diabetes mellitus with foot ulcer (E11.621) Active confirmed Problem Lumbosacral radiculopathy (0524551) Lumbosacral neuritis (M54.17) Active confirmed Problem Osteoarthritis (606268135) Osteoarthritis, unspecified osteoarthritis type, unspecified site (M19.90) Active confirmed Problem Pain in limb (78701637) Pain in left lower leg (M79.662) Active confirmed Problem Acute sinusitis (11747003) Acute sinus infection (J01.90) Active confirmed Problem Overweight (115712733) Over weight (E66.3) Active confirmed Problem Dyshidrotic eczema (134486434) Dyshidrotic eczema (L30.1) Active confirmed Problem Ankylosing spondylitis (0842505) Ankylosing spondylitis (M45.9) Active confirmed Problem Nevus (7213033286) Nevus (D22.9) Active confirm ed Problem Ankle edema (23792247) Ankle edema (R60.0) Active confirmed Problem Acute gastroenteritis (68293478) Acute gastroenteritis (K52.9) Active confirmed Problem Peripheral vascular disease (491373638) Other peripheral vascular disease (I73.89) Active confirmed Problem Lumbosacral spondylosis without myelopathy (20147296) Other osteoarthritis of spine, lumbar region (M47.896) Active confirmed Problem Delayed healing of surgical wound (finding) (403866721) Delayed surgical wound healing (T81.89XA) Active confirmed Problem Easy bruising (263032719) Easy bruising (R23.8) Active confirmed Problem Chronic venous insufficiency (41559781) Chronic venous insufficiency (I87.2) Active confirmed Problem Allergic arthritis (50125392) Allergic arthritis (M13.80) Active confirmed Problem Peripheral vascular disease (875263174) Other peripheral vascular diseases (I73.89) Active confirmed Problem Shoulder impingement syndrome (018299449) Shoulder impingement syndrome (M75.40) Active confirmed Problem At risk for falls (815196349) At risk for falls (Z91.81) Active confirmed Problem Vitamin B deficiency (78848638) Deficiency of vitamin B12 (E53.8) Active confirmed Problem Polyneuropathy due to type 2 diabetes mellitus (186314608) Diabetes mellitus with diabetic polyneuropathy (E11.42) Active confirmed Problem Ankle ulcer (864948483) Non-healing ulcer of ankle, right, with fat layer exposed (L97.312) Active confirmed Problem Avascular necrosis of head of humerus (294388049) Avascular necrosis of head of humerus (M87.029) Active confirmed Problem Pain co-occurrent and due to varicose veins of bilateral legs (39354523199302236) Varicose veins of leg with pain, bilateral (I83.813) Active confirmed Problem Decubitus ulcer of left foot, stage 2 (L89.892) Active confirmed Problem Arthritis of lumbosacral spine (308164553) Arthritis of lumbosacral spine (M47.817) Active confirmed Problem Peripheral venous insufficiency (64165223) Acute stasis dermatitis (I87.2) Active confirmed Problem Mixed anxiety and depressive disorder (601279244) Anxiety and depression (F41.8) Active confirmed Problem Decubitus ulcer of right ankle, stage 2 (L89.512) Active confirmed Problem Allergic arthritis of the pelvic region and thigh (711269236) Allergic arthritis of left hip (M13.852) Active confirmed Problem Decubitus ulcer of calf, stage 2, unspecified laterality (L89.892) Active confirmed Problem Bruising (627060645) Bruising (T14.8XXA) Active confirmed Problem Decubitus ulcer of right foot, stage 2 (L89.892) Active confirmed Problem Pressure ulcer o f toe of left foot, stage 2 (L89.892) Active confirmed Problem Pressure injury of right ankle, stage 1 (L89.511) Active confirmed Problem Ankle ulcer (301390278) Chronic ulcer of right ankle with fat layer exposed (L97.312) Active confirmed Problem Pressure injury of right ankle, stage 2 (L89.512) Active confirmed Problem Chronic ulcer of toe of right foot with fat layer exposed (L97.512) Active confirmed Problem Lumbar spinal stenosis (49333818) Lumbar spinal stenosis (M48.061) Active confirmed Problem Osteoarthritis of knee (767708228) Osteoarthritis of right knee (M17.11) Active confirmed Problem Acute embolism a nd thrombosis of right peroneal vein (I82.451) Active confirmed Problem Clostridial enteric disease (092018161) Clostridioides difficile diarrhea (A04.72) Active confirmed Problem COVID-19 (489981715) COVID-19 (U07.1) Active confirmed Problem Polyneuropathy due to type 2 diabetes mellitus (086883389) Controlled type 2 diabetes mellitus with diabetic polyneuropathy, unspecified whether correction insulin use (E11.42) Active confirmed Problem Herniation of rectum into vagina (330688524) Rectocele without uterine prolapse (N81.6) Active confirmed Problem Chronic ulcer of right foot (disorder) (66192353776794444) Chronic ulcer of right foot with fat layer exposed (L97.512) Active confirmed Problem Cough (finding) (64562898) Other cough (R05.8) Active confirmed Problem Thrombophlebitis of superficial veins of lower extremity (78849451) Thrombophlebitis of superficial vein of lower leg (I80.00) Active confirmed Vital Signs Heart Rate 77 /min 09/06/2024 Temperature 98.2 degrees Fahrenheit 12/09/2024 Oximetry 98 % 09/06/2024 Blood pressure diastolic 78 mm Hg 12/20/2024 Height 68 in 12/20/2024 Blood pressure systolic 142 mm Hg 12/20/2024 Weight 189.4 lbs 12/20/2024 BMI 28.8 kg/m2 12/20/2024 Encounters Encounter Location Date Provider Diagnosis [facility] [address] [place] [address] 05/16/2024 Trisha Mcneil Influenza A J10.1 an d Left foot pain M79.[address] [address] 07/29/2024 Nixon Hoy Type 2 diabetes mellitus with foot ulcer E11.621 ; Muscle spasm of back M62.830 and Lumbar post-laminectomy syndrome M96.[address] [address] 11/28/2024 Nixon Hoy Frequency of micturition R35.0 ; Acute bronchitis 466.0 and Recurrent UTI N39.[address] [address] 08/12/2024 Nixon Hoy Frequent urination R35.0 ; Lumbar disc disease M51.9 and Lumbar post-laminectomy syndrome M96.[address] [address] 09/06/2024 Trisha Mcneil Sinusitis J32.[address] [address] 10/11/2024 Nixon Hoy Easy bruising R23.8 ; Muscle spasm of back M62.830 ; Hypertension I10 ; DJD (degenerative joint disease) M19.90 and Controlled type 2 diabetes mellitus with diabetic polyneuropathy, unspecified whether emt intermediate insulin use E11.[address] [address] 11/16/2024 Nixon Hoy UTI (urinary tract infection) N39.0 and Muscle spasm of back M62.[address] [address] 02/19/2024 Trisha Mcneil Deficiency of vitami n B12 E53.8 ; Bronchitis J40 and Cough R05.[address] [address] 12/09/2024 Nixon Hoy UTI (urinary tract infection) N39.0 and Blood in stool K92.1 [address] [place] [address] 12/20/2024 Nixon Hoy Muscle spasm of back M62.830 ; Urinary incontinence R32 and Acute bronchitis 466.0 [facility] ([facility]) [address] [place] [address] [place] [address] 03/03/2024 Deepali Inderjit Deficiency of vitami n B12 E53.8 ; Pain in right toe(s) M79.674 ; Pain in left toe(s) M79.675 and At risk for falls Z91.[address] [address] 03/25/2024 Nixon Hoy Deficiency of vitami n B12 E53.8 and Encounter for immunization Z23 [address] [address] 04/22/2024 Nixon Hoy Deficiency of vitami n B12 E53.[address] [address] 05/25/2024 Nixon Hoy Deficiency of vitami n B12 E53.[address] [address] 06/20/2024 Nixon Hoy Deficiency of vitami n B12 E53.[address] [address] 07/20/2024 Nixon Hoy Deficiency of vitami n B12 E53.[address] [address] 01/19/2024 Nixon Hoy B12 deficiency E53.8 ; Hypertension I10 ; Hair loss L65.9 and Insomnia G47.00 [address] [place] [address] 02/09/2024 Nixon Hoy Urinary incontinence R32 [address] [place] [address] 02/16/2024 Trsiha Mcneil [facility] [address] [place] [address] 02/29/2024 Nixon Hoy B12 deficiency E53.8 [facility] [address] [place] [facility] [place] [address] 06/23/2024 Nixon All B12 deficiency E53.8 [facility] [address] [place] [facility] [place] [address] 06/28/2024 Nixon Tayy Influenza A J10.1 ; Bronchitis J40 and Frequency of micturition R35.0 [facility] [address] [place] [facility] [place] [address] 07/29/2024 Nixon Tayy Arthritis of lumbosacral spine M47.817 and Other intervertebral disc displacement, lumbar region M51.26 [facility] [address] [place] [address] 08/12/2024 Nixon Carrizales [facility] [address] [facility] [place] [address] 08/16/2024 Nixon Carrizales [facility] [address] [place] [facility] [address] 10/11/2024 Nixon Carrizales [facility] [address] [place] [facility] [address] 10/11/2024 Nixon Carrizales Screening for breast cancer Z12.39 [facility] [address] [place] [facility] [place] [address] 10/12/2024 Nixon Carrizales [facility] [address] [place] [facility] [place] [address] 11/21/2024 Nixon Carrizales [facility] [address] [facility] [place] [address] 12/07/2024 Nixon Carrizales [facility] [address] [place] [facility] [address] 12/12/2024 Nixon Carrizales [facility] [address] [place] [facility] [place] [address] 12/20/2024 Nixon Carrizales [facility] [address] [place] [facility] [address] 2024 Nixon Carrizales Assessments Encounter Date Diagnosis (ICD Code) Assessment Notes Treatment Notes Treatment Clinical Notes Section Notes 01/19/2024 B12 deficiency (ICD-10 - E53.8) 01/19/2024 [...] R35.0) 11/28/2024 Acute bronchitis (ICD9-CM - 466.0) 12/09/2024 UTI (urinary tract infection) (ICD-10 - N39.0) 12/09/2024 Blood in stool (ICD-10 - K92.1) 12/20/2024 Muscle spasm of back (ICD-10 - M62.830) cont with meds 12/20/2024 Urinary incontinence (ICD-10 - R32) repate raul in 10 - 14 days 02/09/2024 Urinary incontinence (ICD-10 - R32) 02/29/2024 B12 deficiency (ICD-10 - E53.8) 06/23/2024 B12 deficiency (ICD-10 - E53.8) 06/28/2024 Influenza A (ICD-10 - J10.1) 07/29/2024 Arthritis of lumbosacral spine (ICD-10 - M47.817) 07/29/2024 Other intervertebral disc displacement, lumbar region (ICD-10 - M51.26) 10/11/2024 Screening for breast cancer (ICD-10 - Z12.39) 06/28/2024 Bronchitis (ICD-10 - J40) 12/20/2024 Acute bronchitis (ICD9-CM - 466.0) adjusting ab 11/28/2024 Recurrent UTI (ICD-10 - N39.0) 10/11/2024 [...] diabetes mellitus with diabetic polyneuropathy, unspecified whether emt intermediate insulin use (ICD-10 - E11.42) 07/29/2024 Other [...] D, 25 LEVEL (TOTAL) 10/11/2024 Urinalysis Microscopic 12/09/2024 Urinalysis Microscopic 05/22/2023 Urinalysis Microscopic 12/20/2024 PT - INR 10/11/2024 STOOL OCCULT BLOOD 10/11/2024 CULTURE URINE 05/22/2023 CULTURE URINE 12/09/2024 CULTURE URINE 12/20/2024 CULTURE URINE 02/09/2024 OCC BLD IMMUNO SCREEN 10/19/2023 VIT B12 AND FOLATE 01/19/2024 MRI LSPINE WO CON 01/07/2023 US KIDNEYS BLADDER 05/22/2023 XR CHEST 2 V 12/20/2024 XR HIP LT 2 3V W PELVIS 12/20/2024 XR LSPINE MIN 4 VIEWS 12/20/2024 XR SHOULDER LT 2V or > 07/20/2023 THYROID PANEL (T4/TSH/FREE T3) THYROID PANEL (T4/TSH/FREE T3) 4 XR HIP RT 2 3V W PELVIS 12/20/2024 US renal bladder 12/20/2024 BI MAMMOGRAM SCREENING TOMOSYNTHESIS SAMI ATERAL 10/11/2024 CMP (COMP MET WALSH) w/eGFR CKD-EPI 2024 CBC WITH DIFF 10/11/2024 Insurance Providers Payer Name Payer Address Payer Phone Subscriber Number Group Number Insured Name Patient Relationship to Insured Coverage Start Date Coverage End Date [employer] [address] [place] [phone] [id number] Leelee Cedillo Self - patient is the [...] 60 mg Ketorolac Tromethamine 11/16/2024 60 mg Ketorolac Tromethamine 12/20/2024 60 mg Orphenadrine Citrate 08/25/2022 60 mg 60 Orphenadrine Citrate 11/12/2022 60 mg 60 Orphenadrine Citrate 12/31/2022 60 mg Orphenadrine Citrate 01/07/2023 60 mg 60 Orphenadrine Citrate 07/20/2023 60 mg 60 Orphenadrine Citrate 07/29/2024 60 mg Orphenadrine Citrate 08/12/2024 60 mg Orphenadrine Citrate 11/16/2024 60 mg Orphenadrine Citrate 12/20/2024 60 mg Triamcinolone 40 mg/ml 07/29/2024 120 mg Triamcinolone 40 mg/ml 08/12/2024 120 mg Triamcinolone 40 mg/ml 11/16/2024 120 mg Triamcinolone 40 mg/ml 12/09/2024 120 mg Triamcinolone 40 mg/ml 12/20/2024 80 mg Medical (General) History Medical History History [...] spine surgery 12/2018 Hospitalization History Reason Date(Month/Year) Multiple times for surgeries Seizure activity- 08/10 Hip dislocation 03/11
--- OUTSIDE RECORDS SUMMARY | 2024-12-22 13:40 | XMS_ITS | Clinical Summary ---
Author Organization [facility] Address [address] [place] [address] Care Team Providers Care Mainspring Former Name Role Phone Leander Carrizales MD Primary Care Provider [phone] Allergies Active Allergy Reactions Criticality Noted Date [...] Guide test strip 3 Active HYDROcodone-jonnie taminophen ([place]) 5-325 MG tablet TAKE 1 TABLET BY [...] [address] [place] [address] 07/03/2025 10:30 AM EDT Office Visit [facility] [address] [facility] [address] [place] [address] Brianna Barrios, [address] [facility] [address] [place] [address] Health Maintenance Due Date Last Done Comments [...] IS VERY IMPORTANT TO YOUR HEALTH. THE [employer] GUIDELINES RECOMMEND THAT WOMEN 40 [...] Maintenance Insurance [employer] Care Teams Mainspring Former Relationship Specialty Start Date End Date Leander Carrizales MD [address] [place] [address] PCP - General Family Medicine 06/11/23
--- OUTSIDE RECORDS SUMMARY | 2024-12-22 13:40 | XMS_ITS ---
Author Organization [facility] Care Team Providers Care Help Desk Supervisor Name Role Phone Hortensia Eugene Unavailable Unavailable Lorenzo Ellis Unavailable Unavailable Leo Soria Unavailable Unavailable Aidan, Lorena Unavailable Unavailable McNall-Vanita, Lucinda L Unavailable Unavailable DeNicola, Harshil Unavailable Unavailable Munjapara, Valdominga Unavailable Unavailable Tressa Polk Unavailable Unavailabl e Allergies and adverse reactions Code CodeSystem Substance Reaction Severity StartDate Concern Status 360633046 SNOMED CT Sulfa Antibiotics Unknown 06/18/2017 active Care Team Name Role Address Phone Organization Dates Praveen Lopez PCP [address], [place], [place], [facility], [place] (Office): : : [facility] 06/19/2017 - 06/20/2017 Hortensia Eugene [facility] [address] [address] [place], [place], [facility], [facility] (Office): : [facility] 06/19/2017 - 06/20/2017 Lorenzo Perse [place] [id number], [address], [place] (Office): : : [facility] 06/19/2017 - 06/20/2017 Leo Pandyarley [address] [place], [address], [place] (Office): [facility] 06/19/2017 - 06/20/2017 Lorena Aidan [facility] [address] [place], [place], [facility], [facility] (Office): : [facility] 06/19/2017 - 06/20/2017 Lucinda Khan [address] [address], [place], [place], [facility], [facility] (Office): : [facility] 06/19/2017 - 06/20/2017 [facility]il [facility] [address] [facility] [address], [facility], [facility] (Office): : [facility] 06/19/2017 - 06/20/2017 Tressa Polk [id number] [address], [place], [place], [facility], [place] (Office): : [facility] 06/19/2017 - 06/20/2017 Immunizations Immunization Status [...] completed tuberculin skin test; unspecified formulation lotNumber: [id number] expiry: 11/18/2018 Given 0.1 ml Left Forearm [...] 1 GASTRO-ESOPHAGEAL REFLUX DISEASE WITHOUT ESOPHAGITIS 06/20/[address] active 2 UNSPECIFIED OSTEOARTHRITIS, UNSPECIFIED SITE 06/20/[address] active 3 ACQUIRED ABSENCE OF OTHER SPECIFIED PARTS OF DIGESTIVE TRACT 06/18/[address] active 4 CONSTIPATION, UNSPECIFIED 06/18/[address] active 5 DORSALGIA, UNSPECIFIED 06/18/[address] active 6 ENCOUNTER FOR OTHER ORTHOPEDIC AFTERCARE 06/18/[address] active 7 ESSENTIAL (PRIMARY) HYPERTENSION 06/18/[address] active 8 HYPERLIPIDEMIA, UNSPECIFIED 06/18/[address] active 9 HYPOTHYROIDISM, UNSPECIFIED 06/18/[address] active 10 MUSCLE WEAKNESS (GENERALIZED) 06/18/[address] active 11 OBESITY, UNSPECIFIED 06/18/[address] active 12 OVERACTIVE BLADDER 06/18/[address] T active 13 PRESENCE OF LEFT ARTIFICIAL HIP JOINT 06/18/[address] active 14 RADICULOPATHY, LUMBAR REGION 06/18/[address] active 15 SPONDYLOSIS WITHOUT MYELOPATHY OR RADICULOPATHY, LUMBAR REGION 06/18/[address] active Reason for Referral No Reasons for Referral Entered Social History Social History Observation Description Start Date End Date Code Code System Current Smoking Status Tobacco smoking consumption unknown 588710346 SNOMED CT Sex Assigned At Female 1950 22937-0 LOINC Gender Identity Vital Signs Code Code System Vitals Name Values and Units Timing Information 85962-3 LOINC Pain Level Value=0.0 06/20/2017 9279-1 [facility] Respiratory Rate Value=20.0 Units=/m in 06/20/2017 8462-4 [facility] Blood Pressure-Diastolic Value=78 Un its=mmHg 06/20/2017 8480-6 [facility] Blood Pressure-Systolic Hkbei=047 Un its=mmHg 06/20/2017 8310-5 [facility] Body Temperature Value=98.1 Units= F 06/20/2017 8867-4 [facility] Heart rate Value=90.0 Units=/min 06/2017 24854-1 [facility] O2 % dC Oximetry Value=99.0 Units= % 06/20/2017 8302-2 [facility] Height Value=69.0 Units=Inches 06/19/2017 71848-8 [facility] Weight Gcevv=151.6 Units=Lbs 05/2017
--- OUTSIDE RECORDS SUMMARY | 2024-12-22 13:47 | XMS_ITS | CCD ---
Author Organization [facility] ion [facility] Care Team Providers Care [employer] Name Role Phone Praveen Lopez Unavailable Unavailable PHYSICIAN, DEFAULT Unavailable Unavailable PHYSICIAN, DEFAULT Unavailable Unavailable SARA VICK Unavailable Unavailable Sara Vick~[phone] UNKNOWN Admitting Unavailable Sara Vick~[phone] UNKNOWN Attending Unavailable Sara Vick~[phone] UNKNOWN Referring Unavailable Sara Vick Primary Care Provider Trino Yoo Attending Provider [phone] Larry Brown Unavailable Sara Vick Primary Care Physician Lynn Salas Unavailable Unavailable Liam Flor Unavailable Unavailable ADELE FLEMING Attending Unavailable SARA VICK Primary Care Unavailable MD Sara Vick Primary Care Provider MD Sara Vick Attending Provider [phone] DEEPALI JANSEN Consulting Unavailable DEEPALI JANSEN Admitting [...] Unavailable Sara Vick MD Primary Care Provider [phone] Dominique Shane Unavailable MD Sara Vick Primary Care Provider [phone] MD Larry Brown Attending Provider [phone] Kiran Kessler Unavailable HAILEY Jansen Attending Provider MD Kiran Kessler Attending Provider Sara Vick MD Primary Care Provider MD Sara Vick Primary Care Provider [phone] HAILEY Jansen Attending Provider [phone] MD Kiran Kessler Attending Provider ANNIE JIMENEZ [...] [phone] Sara Vick MD Attending Provider [phone] Sara Vick Attending Unavailable Sara Vick Primary Care Unavailable Sara Vick Admitting Unavailable Judson SAXENA Attending Unavailable Nixon Vicklas Referring Unavailable Unavailable Unavailable Unavailable Allergies Allergy Classification Reported Allergen(s) Allergy Type Date of Onset Reaction(s) Facility (1 source) Sulfa Antibiotics 06-19-19 18 [facility] (3 sources) Sulfonamides (Antibiotic) Drug allergy (disorder) 08-02-19 10 [facility] Repository (4 sources) Sulfamethoxazole; Translations: [sulfamethoxazole ] Drug Allergy Cutaneous eruption (morphologic abnormality) [facility] Repository (2 sources) Sulfur; Translations: [Sulfur] Drug Allergy [facility] Repository (12 sources) Sulfonamides (Antibiotic); Translations: [SULFA (SULFONAMIDE ANTIBIOTICS)] Allergy to substance 07-17-19 07 [facility] (18 sources) Sulfacetamide Drug Allergy 09-19-19 23 [employer] Other (2 sources) metroNIDAZOLE Drug Allergy 09-19-19 23 [facility] (1 source) Sulfacetamide Drug Allergy 08-07-19 24 [facility] Repository Medications Current Medications Medication Drug Class(es) Dates Sig (Normalized) Sig (Original) acetaminophen 325 mg oral tablet (3 sources) Start: 09-14-2019 take 2 tablets by mouth every four hours as needed for pain Tylenol 325 mg Tab 650 mg = 2 tab(s), Oral, q4hr, PRN Breakthrough Pain, Refills(s) 0 Start Date: 09/14/19 Status: Ordered Start: 06-18-2017 take 2 tablets by [facility] every four hours as needed for pain [...] 70 MG tablet take 1 tablet by [facility] once daily Alendronate Sodium 70 MG 1 [...] supplement 06/19/2017 9:00:00 take 1 capsule by [facility] every twenty-four hours Vitamin [...] Start: 07-26-2022 take 2 tablets by mo [facility] every eight hours as needed for muscle spasms tiZANidine 4 mg Tab 8 mg = 2 tab(s), Oral, q8hr, PRN Spasm, Refills(s) 0 Start Date: 07/26/22 Status: Ordered Start: 06-19-2017 take 2 tablets by [facility] twice daily Zanaflex Tablet 4 MG 2 tablet Tablet Oral GIVE 2 TABS (8MG) BY MOUTH TWICE DAILY FOR MUSCLOSKELETAL 06/19/2017 9:00:00 take 1 capsule by [facility] once daily at bedtime tiZANidine HCl 4 mg capsule Take 4 mg by mouth daily at bedtime. 0 Active take 1 capsule by [facility] every eight hours tiZANidine [...] for 30 days Dec, Active Start: 03-08-2022 Scheller 325 mg-5 mg oral tablet 1 tab(s), [...] 07-01-2013 Chronic Other aftercare (1 source) Other [facility] (current) drug therapy; Translations: [OTH LONG-TERM CURRENT DRUG THERAPY] Onset: 3 Episodic Other [...] Cx Nom (U) ORGANISM: Escherichia coli (O:ESCCOL) [place] Count 15,000 ORGANISM: Methicillin Resis Staph Aureus (O:MRSA) [place] Count 75,000 Aerobic BEATRIZ Charge (NMIC56) --- [...] RESISTANT TO ALL B-LACTAM DRUGS. PERFORMED BY: [place] [address] PATHOLOGIST SENIOR CLINICAL DATA ANALYST FRANKLYN MARIE M.D. Normal [facility] Comment on above: Performed By: #### C UU #### [address] MR Thoracic spine WO contras ton 08-08-2023 [facility] MRI THORACIC SPINE WO IVCONo n 08-08-2023 MRI THORACIC SPINE WO IVCON * * *Final Report* * * DATE OF EXAM: Aug 08 2023 4:14PM [facility] 0325 - MRI THORACIC SPINE WO IVCON [...] and assume there are 5 lumbar-type vertebrae. Security Incident Response Specialist: [facility] Transcribe Date/Time: Aug 08 2023 9:09P Dictated by : HARRY JONES MD This examination was interpreted and the report reviewed and electronically signed by: HARRY JONES MD on Aug 08 2023 9:14PM EST [id number] Normal [facility] BI MAMMOGRAM SCREENING TOMOS YNTHESIS BILATERALon 08-05-2023 [...] IS VERY IMPORTANT TO YOUR HEALTH. THE [place] [employer] GUIDELINES RECOMMEND THAT WOMEN 40 [...] DATE OF EXAM: Jul 13 2023 11:11AM [facility] 0508 - CT LUMBAR SPINE WO [...] are 5 lumbar-type vertebrae. Anatomic variant: None. Instructional Specialist (topogram) images: Left femoroacetabular arthroplasty. Alignment: Mild [...] any questions regarding this interpretation, please call [phone]. If you are unable to reach us at the number above, please feel free to contact [facility]iology at [phone]. [id number] Normal [facility] CT Lumbar spine WO contrasto n 07-13-2023 [facility] CNOVon 06-24-2023 CNOV Office Visit (SPNSMN ) LEELEE CEDILLO ([id number]) 1950 F Date Time Provider Department 06/24/23 [...] Ghanshyam Lombardi MD Referring Provider: SARA VICK [[id number]] Allergies As of Date: 06/24/2023 Noted Allergy Reaction SULFA (SULFONAMIDE ANTIBIOTICS) 07/16/2006 Date Reviewed: 06/24/2023 Reviewed by: Kaur Manzano MA - Fully Assessed Reason for Visit: New Patient [172] Primary Visit Diagnosis:Adjacent segment disease of lumbar spine with history of fusion procedure [M51.36, Z98.1] Other Visit Diagnosis:Chronic bilateral low back pain with bilateral sciatica [M54.42, M54.41, G89.29] Order(s):MRI THORACIC SPINE WO IVCON [[id number]] Order #: [id number] FUTURE CT LUMBAR SPINE WO IVCON [[id number]] Order #: [id number] FUTURE Prescriptions as of 06/24/2023 - pantoprazole [...] by GHANSHYAM LOMBARDI on 06/24/23 Normal [facility] XR LUMBAR 4V AP/LAT/ FLEX/EX Ton 06-24-2023 [...] Number of different views (projections): 2 (accession [id number]), 4 (accession [id number]) COMPARISON: Radiographs dated 09/23/2021 RESULT: Counting reference: [...] changes with no evidence of hardware complication. Security Incident Response Specialist: ELAINE Transcribe Date/Time: Jun 24 2023 12:52P Dictated by : LATASHA QUEZADA MD This examination was interpreted and the report reviewed and electronically signed by: LATASHA QUEZADA MD on Jun 24 2023 12:55PM EST [id number] Normal [facility] XR Lumbar spine Views W flex ion and W extensionon 06-24-2023 [facility] XR SCOLIOSIS 2V PA STAND/LAT on [...] Number of different views (projections): 2 (accession [id number]), 4 (accession [id number]) COMPARISON: Radiographs dated 09/23/2021 RESULT: Counting reference: [...] changes with no evidence of hardware complication. Security Incident Response Specialist: ELAINE Transcribe Date/Time: Jun 24 2023 12:52P Dictated by : LATASHA QUEZADA MD This examination was interpreted and the report reviewed and electronically signed by: LATASHA QUEZADA MD on Jun 24 2023 12:55PM EST [id number] [facility] Thoracic and lumbar spine Views for scoliosis W standingon 06-24-2023 [facility] VC CONSULT FOLLOWUPon 2022 VC CONSULT FOLLOWUP Patient: ITZEL CEDILLO Exam Date: 08/08/2022 : 1950 Gender:F Ordering : DR ALFRED UMAÑA M.D. Admission #: [id number] Family : Order #: [id number] CLICK HERE TO VIEW EXAM RADIOLOGY REPORT [...] Umaña MD on 08/08/2022 at 10:59 Normal [facility] VC EXT VENOUS LT LIMITEDon 0 08-08-2022 VC EXT VENOUS LT LIMITED Patient: LEELEE CEDILLO Exam Date: 08/08/2022 : 1950 Gender:F Ordering : DR ALFRED UMAÑA M.D. Admission #: [id number] Family : Order #: [id number] CLICK HERE TO VIEW EXAM RADIOLOGY REPORT [...] Umaña MD on 08/08/2022 at 09:43 Normal [facility] CHEMISTRYOrdered By: SYSTEM SYSTEM on 07-27-2022 Anion [...] rate/Area] mL/min/1.73 m2 Normal >=59mL/min/1 .73 m2 [facility] Chem S Glucose [Mass/Vol] 88 [...] 106 mg/dL High 55 - 99 mg/dL [facility] POC Subsection Comment on above: Result Comment: Parker wills RN/ POC Device SN [id number] Invalid Interpretation Code [facility] POC Subsection POC User ID [id number] Invalid Interpretation Code [facility] POC Subsection POC Username SHANKAR ABARCA Invalid Interpretation Code [facility] POC Subsection HEMATOLOGYOrdered By: SYSTEM SYSTEM on [...] PM) Normal Negative [facility] UA Auto SS [place].plasma/Lithiu m.RBC (Bld) [Mass ratio] 0-3 /HPF Normal [...] [facility] UA Auto SS Urobilinogen Qn (U) [id number] {Malu'U}/dL Normal 0.0 - 1.0 EU/dL [facility] UA Auto SS WBC Auto Ql (U) Trace *ABN* (07/26/22 4:49 PM) Invalid Interpretation Code Negative [facility] UA Auto SS WBC LM.HPF (Urine sed) [#/Area] 0-5 /HPF Normal 0-5/HPF [facility] UA Auto SS SURGICAL PATH REPORTon 07-25 SURGICAL PATH REPORT [facility] Department of Pathology [address] [place] [id number] Name: LEELEE CEDILLO : 1950 [facility] [id number] Number: Gender Female [facility] : n: Admit 71 years Attending ADELE FLEMING Age: Provider: Ordering ADELE FLEMING Provider: Consulti Surgical Pathology Report ng: ACCESSION: COLLECTED DATE/TIME: RECEIVED DATE/TIME: PATHOLOGIST: [id number] 07/24/2022 12:16 EDT 07/24/2022 12:16 EDT MICHELINE STERN MD Final Diagnosis Report for [facility] [place], [place] RIGHT ANKLE, PUNCH BIOPSY: - FRAGMENT [...] MP:alexa 07/24/2022 Tissue pathology report for: [facility], [address] [place] [address]; ____ ____ Print 07/25/2022 15:48 EDT Number: Date/Time: [facility] Department of Pathology [address] [place] [phone] Name: LEELEE CEDILLO : 1950 [facility] [id number] Number: Gender Female [facility] : n: Admit 71 years Attending ADELE FLEMING Age: Provider: Ordering ADELE FLEMING Provider: Consulti Surgical Pathology Report ng: ACCESSION: COLLECTED DATE/TIME: RECEIVED DATE/TIME: PATHOLOGIST: [id number] 07/24/2022 12:16 EDT 07/24/2022 12:16 EDT MICHELINE STERN MD Gross Description PATHOLOGY SERVICES PROVIDED BY [employer] (CLIA #[id number]) in cooperation with [facility] at [address] [place] [address] ( CLIA #[id number]) Microscopic Diagnosis The final diagnosis is based on a microscopic exam of loss prevention representative sections. Codes CPT CODE: 78405 ____ ____ Print 07/25/2022 15:48 EDT Number: Date/Time: Normal [facility] Comment on above: Performed By: #### 9 [id number] #### [facility] Laboratory Services [address] [id number] Pricing Lead: Jared Oh MD POINT OF CARE GLUCOSEon 04-0 Glucose [Mass/Vol] 114 mg/dL Critically high 74-106 [facility] Comment on above: Performed By: #### P OCGLUC #### [facility] [address] [address] [address] Salvador Yung Glucose [Mass/Vol] 112 mg/dL Critically high 74-106 [facility] Comment on above: Performed By: #### P OCGLUC #### [facility] [address] [address] [address] Salvador Yung [facility] 06-20 SARS-CoV-2 (COVID-19) RNA VIVIANA+probe Ql (Unsp spec) Not detected Normal NOT DETECTED [facility] Comment on above: Result Comment: This test is not yet approved or cleared by the [place] FDA. When there are no FDA-approved or cleared tests available, and other criteria are met, FDA can make tests available under an emergency access mechanism called an Emergency Use Authorization (EUA). The EUA for this test is supported by the Vp & General Counsel of Health and Human Service's (HHS's) declaration [...] SARS-CoV-2. Performed By: #### C VDTB #### [facility] [address] [place] [address] Dr. Salvador Yung PROF CHEM 8 (BAS METB)on Anion gap [Moles/Vol] 12.0 mmol/L Normal [facility] Comment on above: Performed By: #### B MP #### [facility] [address] [place] [address] Dr. Salvador Yung Calcium [Mass/Vol] 9.4 mg/dL Normal 8.5-10.1 [facility] Comment on above: Performed By: #### B MP #### [facility] [address] [place] [address] Dr. Salvador Yung Chloride [Moles/Vol] 100 mmol/L Normal 98-107 [facility] Comment on above: Performed By: #### B MP #### [facility] [address] [place] [address] Dr. Salvador Yung CO2 [Moles/Vol] 29.8 mmol/L Normal 21.0-32.0 [facility] Comment on above: Performed By: #### B MP #### [facility] [address] [place] [address] Dr. Salvador Yung Creatinine [Mass/Vol] 0.91 mg/dL Normal 0.55-1.02 [facility] Comment on above: Performed By: #### B MP #### [facility] [address] [place] [address] Dr. Salvador Yung EGFR-AF GIBRALTARIAN >60 Normal >=60 [facility] Comment on above: Performed By: #### B MP #### [facility] [address] [place] [address] Dr. Salvador Yung EGFR-NON AF GIBRALTARIAN >60 Normal >=60 [facility] Comment on above: Performed By: #### B MP #### [facility] [address] [address] [address] Salvador Yung Glucose [Mass/Vol] 82 mg/dL Normal 74-106 [facility] Comment on above: Performed By: #### B MP #### [facility] [address] [address] [address] Salvador Yung Potassium [Moles/Vol] 3.8 mmol/L Normal 3.5-5.1 [facility] Comment on above: Performed By: #### B MP #### [facility] [address] [address] [address] Salvador Yung Sodium [Moles/Vol] 138 mmol/L Normal 136-145 [facility] Comment on above: Performed By: #### B MP #### [facility] [address] [address] [address] Salvador Yung Urea nitrogen [Mass/Vol] 12.0 mg/dL Normal 7.0-18.0 [facility] Comment on above: Performed By: #### B MP #### [facility] [address] [address] [address] Salvador Yung Urea nitrogen/Creatinine [Mass ratio] 13.2 mg/mg Normal [facility] Comment on above: Performed By: #### B MP #### [facility] [address] [address] [address] Salvador Yung VC INJ SCL JESSICA BOX TRUCK WASHER VEINSon 0 07-01-2022 VC INJ SCL JESSICA BOX TRUCK WASHER VEINS Patient: LEELEE CEDILLO Exam Date: 07/01/2022 : 1950 Gender:F Ordering : DR ALFRED UMAAÑ M.D. Admission #: [id number] Family : Order #: [id number] CLICK HERE TO VIEW EXAM RADIOLOGY REPORT [...] Lobato M.D. on 07/01/2022 at 15:22 Normal [facility] VC CONSULT FOLLOWUPon 2022 VC CONSULT FOLLOWUP Patient: ITZEL CEDILLO Exam Date: 06/19/2022 : 1950 Gender:F Ordering : DR ALFRED UMAÑA M.D. Admission #: [id number] Family : Order #: [id number] CLICK HERE TO VIEW EXAM RADIOLOGY REPORT [...] Umaña MD on 06/19/2022 at 14:17 Normal [facility] VC EXT VENOUS LT LIMITEDon 0 06-19-2022 VC EXT VENOUS LT LIMITED Patient: LEELEE CEDILLO. Exam Date: 06/19/2022 : 1950 Gender:F Ordering : DR ALFRED UMAÑA M.D. Admission #: [id number] Family : Order #: [id number] CLICK HERE TO VIEW EXAM RADIOLOGY REPORT [...] MD on 06/19/2022 at 14:[address] [facility] VC INJ FOAM SCLERO W US MLTI on 06-13-2022 VC INJ FOAM SCLERO W US MLTI Patient: LEELEE CEDILLO Exam Date: 06/13/2022 : 1950 Gender:F Ordering : DR ALFRED UMAÑA M.D. Admission #: [id number] Family : Order #: [id number] CLICK HERE TO VIEW EXAM RADIOLOGY REPORT [...] duple (more content not included)... Normal [facility] VC CONSULT FOLLOWUPon 2022 VC CONSULT FOLLOWUP Patient: ITZEL CEDILLO Exam Date: 06/10/2022 : 1950 Gender:F Ordering : DR ALFRED UMAÑA M.D. Admission #: [id number] Family : Order #: [id number] CLICK HERE TO VIEW EXAM RADIOLOGY REPORT [...] Lobato M.D. on 06/10/2022 at 12:36 Normal [facility] VC EXT VENOUS RT LIMITEDon 0 06-10-2022 VC EXT VENOUS RT LIMITED Patient: LEELEE CEDILLO Exam Date: 06/10/2022 : 1950 Gender:F Ordering : DR ALFRED UMAÑA M.D. Admission #: [id number] Family : Order #: [id number] CLICK HERE TO VIEW EXAM RADIOLOGY REPORT [...] Lobato M.D. on 06/10/2022 at 12:33 Normal [facility] VC INJ FOAM SCLERO W US MLTI on 06-03-2022 VC INJ FOAM SCLERO W US MLTI Patient: LEELEE CEDILLO Exam Date: 06/03/2022 : 1950 Gender:F Ordering : DR ALFRED UMAÑA M.D. Admission #: [id number] Family : Order #: [id number] CLICK HERE TO VIEW EXAM RADIOLOGY REPORT PROCEDURE: VEIN CENTER INJECTION FOAM SCLEROSING SOLUTION WITH ULTRASOUND MULTIPLE VEINS COMPARISON: None. Pre-operative Diagnosis: CEAP class C6 venous insufficiency with pain, tenderness, edema and incompetent right small saphenous vein and site planner vein, incompetent varicose veins, venous insufficiency right leg secondary to venous incompetence Post-operative Diagnosis: CEAP class C6 venous insufficiency with pain, tenderness, edema and incompetent right small saphenous vein and site planner vein, incompetent varicose veins, venous insufficiency right [...] l (more content not included)... Normal [facility] VC CONSULT FOLLOWUPon 2022 VC CONSULT FOLLOWUP Patient: ITZEL CEDILLOKimberlee Exam Date: 05/28/2022 : 1950 Gender:F Ordering : DR ALFRED UMAÑA M.D. Admission #: [id number] Family : Order #: [id number] CLICK HERE TO VIEW EXAM RADIOLOGY REPORT [...] Umaña MD on 05/28/2022 at 11:44 Normal [facility] VC EXT VENOUS RT LIMITEDon 0 05-28-2022 VC EXT VENOUS RT LIMITED Patient: LEELEE CEDILLO Exam Date: 05/28/2022 : 1950 Gender:F Ordering : DR ALFRED UMAÑA M.D. Admission #: [id number] Family : Order #: [id number] CLICK HERE TO VIEW EXAM RADIOLOGY REPORT [...] extends to distal lower leg. Thrombus in site planner distal medial lower leg 2.8 mm from [...] MD on 05/28/2022 at 11:[address] [facility] CBC AUTO DIFFon 05-21-2022 BASO # 0.1 103/ul Normal 0.0-0.1 [facility] Comment on above: Performed By: #### C BC #### [facility] [address] [place] [address] Dr. Salvador Yung Basophils/100 WBC (Bld) 0.6 % Normal 0.2-2.0 [facility] Comment on above: Performed By: #### C BC #### [facility] [address] [place] [address] Dr. Salvador Yung EO # 0.1 103/ul Normal 0.0-0.[address] [facility] Comment on above: Performed By: #### C BC #### [facility] [address] [address] [address] Salvador Yung Eosinophils/100 WBC (Bld) 0.6 % Critically low 0.9-7.0 [facility] Comment on above: Performed By: #### C BC #### [facility] [address] [place] [address] Dr. Salvador Yung Erythrocyte distribution width (RBC) [Ratio] 12.4 % Normal 11.0-15.0 [facility] Comment on above: Performed By: #### C BC #### [facility] [address] [place] [address] Dr. Salvador Yung Hematocrit (Bld) [Volume fraction] 43.1 % Normal 36.0-48.0 [facility] Comment on above: Performed By: #### C BC #### [facility] [address] [place] [address] Dr. Salvador Yung Hemoglobin (Bld) [Mass/Vol] 13.8 g/dL Normal 12.0-16.0 [facility] Comment on above: Performed By: #### C BC #### [facility] [address] [place] [address] Dr. Salvador Yung IG # 0.06 10e3/ul Critically high 0.00-0.03 [facility] Comment on above: Performed By: #### C BC #### [facility] [address] [place] [address] Dr. Salvador Yung IG % 0.7 % Critically high 0.0-0.5 [facility] Comment on above: Performed By: #### C BC #### [facility] [address] [place] [address] Dr. Salvador Yung LYMPH # 1.7 103/ul Normal 1.2-3.8 [facility] Comment on above: Performed By: #### C BC #### [facility] [address] [place] [address] Dr. Salvador Yung Lymphocytes/100 WBC (Bld) 20.2 % Critically low 20.5-60.0 [facility] Comment on above: Performed By: #### C BC #### [facility] [address] [place] [address] Dr. Salvador Yung MANUAL DIFF REQ NO Normal [facility] Comment on above: Performed By: #### C BC #### [facility] [address] [place] [address] Dr. Salvador Yung MCH (RBC) [Entitic mass] 30.1 pg Normal 26.7-34.0 [facility] Comment on above: Performed By: #### C BC #### [facility] [address] [address] [address] Salvador Yung MCHC (RBC) [Mass/Vol] 32.0 g/dL Normal 29.9-35.2 [facility] Comment on above: Performed By: #### C BC #### [facility] [address] [address] [address] Salvador Yung MCV (RBC) [Entitic vol] 93.9 fL Normal 81.0-99.[address] [facility] Comment on above: Performed By: #### C BC #### [facility] [address] [address] [address] Salvador Yung MONO # 0.5 103/ul Normal 0.3-0.8 [facility] Comment on above: Performed By: #### C BC #### [facility] [address] [place] [address] Dr. Salvador Yung Monocytes/100 WBC (Bld) 6.1 % Normal 1.7-12.0 [facility] Comment on above: Performed By: #### C BC #### [facility] [address] [place] [address] Dr. Salvador Yung NEUT # 6.1 103/ul Normal 1.4-6.5 [facility] Comment on above: Performed By: #### C BC #### [facility] [address] [place] [address] Dr. Salvador Yung Neutrophils/100 WBC (Bld) 71.8 % Normal 43.0-75.[address] [facility] Comment on above: Performed By: #### C BC #### [facility] [address] [place] [address] Dr. Salvador Yung Platelet mean volume (Bld) [Entitic vol] 8.2 fL Critically low 9.5-13.[address] [facility] Comment on above: Performed By: #### C BC #### [facility] [address] [place] [address] Dr. Salvador Yung PLT 246 103/ul Normal 150-[address] [facility] Comment on above: Performed By: #### C BC #### [facility] [address] [address] [address] Salvador Yung RBC 4.59 106/ul Normal 4.20-5.40 [facility] Comment on above: Performed By: #### C BC #### [facility] [address] [address] [address] Salvador Yung WBC 8.5 103/ul Normal 4.0-11.0 [facility] Comment on above: Performed By: #### C BC #### [facility] [address] [address] [address] Salvador Yung FREE T3on 05-21-2022 FREE T3 2.14 pg/mlL Critically low 2.18-3.98 [facility] Comment on above: Performed By: #### P OCGLUC #### [facility] [address] [place] [address] Dr. Salvador Yung GLYCOHEMOGLOBIN A1Con 2022 ADA RECOMMENDATION SEE BELOW Normal [facility] Comment on above: Result Comment: ADA RECOMMENDED LIMIT 4.0 - 6.0 ADA THERAPEUTIC TARGET < 7.0 ACTION SUGGESTED > 7.0 Performed By: #### P OCGLUC #### [facility] [address] [address] [address] Salvador Yung Glucose [Mass/Vol] 100 mg/dL Normal [facility] Comment on above: Performed By: #### P OCGLUC #### [facility] [address] [address] [address] Salvador Yung HbA1c (Bld) [Mass fraction] 5.1 % Normal 4.5-6.2 [facility] Comment on above: Performed By: #### P OCGLUC #### [facility] [address] [address] [address] Salvador Yung LIPID PROFILEon 05-21-2022 CHOL-HDL RATIO NORM SEE BELOW Normal [facility] Comment on above: Result Comment: 3.3 - 4.4 LOW RISK 4.4 - 7.1 AVERAGE RISK 7.1 - 11.0 MODERATE RISK >11.0 HIGH RISK Performed By: #### P OCGLUC #### [facility] [address] [place] [address] Dr. Salvador Yung Cholesterol [Mass/Vol] 164 mg/dL Normal <=200 [facility] Comment on above: Performed By: #### P OCGLUC #### [facility] [address] [address] [address] Salvador Yung Cholesterol in HDL [Mass/Vol] 61 mg/dL Critically high 40-60 [facility] Comment on above: Performed By: #### P OCGLUC #### [facility] [address] [address] [address] Salvador Yung Cholesterol in LDL [Mass/Vol] 90.2 mg/dL Normal [facility] Comment on above: Performed By: #### P OCGLUC #### [facility] [address] [address] [address] Salvador Yung Cholesterol.total/Cho lesterol in HDL [Mass ratio] 2.7 {ratio} Normal [facility] Comment on above: Performed By: #### P OCGLUC #### [facility] [address] [address] [address] Salvador Yung HDL NORMAL > or = 60 mg/dl - LO W CARDIOVASCULAR RISK <40 mg/dl - HIGH CARDIOVASCULAR RISK Normal [facility] Comment on above: Performed By: #### P OCGLUC #### [facility] [address] [address] [address] Salvador Yung LDL CALC NORMAL SEE BELOW Normal [facility] Comment on above: Result Comment: <100 mg/dl OPTIMAL 100 - 129 mg/dl NEAR OR ABOVE OPTIMAL 130 - 159 mg/dl BORDERLINE HIGH 160 - 189 mg/dl HIGH >190 mg/dl VERY HIGH Performed By: #### P OCGLUC #### [facility] [address] [address] [address] Salvador Yung Triglyceride [Mass/Vol] 64 mg/dL Normal <=[address] [facility] Comment on above: Performed By: #### P OCGLUC #### [facility] [address] [address] [address] Salvador Yung VLDL CALC 12.8 mg/dL Normal [facility] Comment on above: Performed By: #### P OCGLUC #### [facility] [address] [address] [address] Salvador Yung PROF 14(COMP METB)on 023 Albumin [Mass/Vol] 3.2 g/dL Critically low 3.4-5.0 [facility] Comment on above: Performed By: #### P OCGLUC #### [facility] [address] [address] [address] Salvador Yung Albumin/Globulin [Mass ratio] 0.7 {ratio} Normal [facility] Comment on above: Performed By: #### P OCGLUC #### [facility] [address] [place] [address] Dr. Salvador Yung ALP [Catalytic activity/Vol] 68 U/L Normal 46-116 [facility] Comment on above: Performed By: #### P OCGLUC #### [facility] [address] [place] [address] Dr. Salvador Yung ALT [Catalytic activity/Vol] 25 U/L Normal 14-59 [facility] Comment on above: Performed By: #### P OCGLUC #### [facility] [address] [place] [address] Dr. Salvador Yung Anion gap [Moles/Vol] 11.8 mmol/L Normal [facility] Comment on above: Performed By: #### P OCGLUC #### [facility] [address] [place] [address] Dr. Salvadro Yung AST [Catalytic activity/Vol] 20 U/L Normal 15-37 [facility] Comment on above: Performed By: #### P OCGLUC #### [facility] [address] [place] [address] Dr. Salvador Yung Bilirubin [Mass/Vol] 0.5 mg/dL Normal 0.2-1.0 [facility] Comment on above: Performed By: #### P OCGLUC #### [facility] [address] [place] [address] Dr. Salvador Yung Calcium [Mass/Vol] 8.9 mg/dL Normal 8.5-10.1 [facility] Comment on above: Performed By: #### P OCGLUC #### [facility] [address] [address] [address] Salvador Yung Chloride [Moles/Vol] 105 mmol/L Normal 98-[address] [facility] Comment on above: Performed By: #### P OCGLUC #### [facility] [address] [address] [address] Salvador Yung CO2 [Moles/Vol] 29.9 mmol/L Normal 21.0-32.0 [facility] Comment on above: Performed By: #### P OCGLUC #### [facility] [address] [address] [address] Salvador Yung Creatinine [Mass/Vol] 0.74 mg/dL Normal 0.55-1.02 [facility] Comment on above: Performed By: #### P OCGLUC #### [facility] [address] [address] [address] Salvador Yung EGFR-AF [place]IBR[place]ARIAN >60 Normal >=60 [facility] Comment on above: Performed By: #### P OCGLUC #### [facility] [address] [address] [address] Salvador Yung EGFR-NON AF [place]IAN >60 Normal >=60 [facility] Comment on above: Performed By: #### P OCGLUC #### [facility] [address] [address] [address] Salvador Yung Globulin (S) [Mass/Vol] 4.3 g/dL Normal [facility] Comment on above: Performed By: #### P OCGLUC #### [facility] [address] [address] [address] Salvador Yung Glucose [Mass/Vol] 88 mg/dL Normal 74-106 [facility] Comment on above: Performed By: #### P OCGLUC #### [facility] [address] [address] [address] Salvador Yung Potassium [Moles/Vol] 3.7 mmol/L Normal 3.5-5.1 [facility] Comment on above: Performed By: #### P OCGLUC #### [facility] [address] [address] [address] Salvador Yung Protein [Mass/Vol] 7.5 g/dL Normal 6.4-8.2 [facility] Comment on above: Performed By: #### P OCGLUC #### [facility] [address] [address] [address] Salvador Yung Sodium [Moles/Vol] 143 mmol/L Normal 136-145 [facility] Comment on above: Performed By: #### P OCGLUC #### [facility] [address] [address] [address] Salvador Yung Urea nitrogen [Mass/Vol] 11.0 mg/dL Normal 7.0-18.0 [facility] Comment on above: Performed By: #### P OCGLUC #### [facility] [address] [place] [address] Dr. Salvador Yung Urea nitrogen/Creatinine [Mass ratio] 14.9 mg/mg Normal [facility] Comment on above: Performed By: #### P OCGLUC #### [facility] [address] [address] [address] Salvador Yung T4on 05-21-2022 T4 [Mass/Vol] 11.60 ug/dL Normal 4.80-13.90 [facility] Comment on above: Performed By: #### P OCGLUC #### [facility] [address] [place] [address] Dr. Salvador Yung TSHon 05-21-2022 TSH 0.165 uIU/mL Critically low 0.358-3.740 [facility] Comment on above: Performed By: #### P OCGLUC #### [facility] [address] [place] [address] Dr. Salvador Yung VC ENDOVENOUS ABL 1ST V RTon 05-21-2022 VC ENDOVENOUS ABL 1ST V RT Patient: LEELEE CEDILLO Exam Date: 05/21/2022 : 1950 Gender:F Ordering : DR ALFRED UMAÑA M.D. Admission #: [id number] Family : Order #: [id number] CLICK HERE TO VIEW EXAM RADIOLOGY REPORT [...] Umaña MD on 05/21/2022 at 13:51 Normal [facility] VITAMIN D 25 OHon 05-21-2022 VIT D 25-OH 25.1 ng/mL Normal [facility] Comment on above: Performed By: #### V ITAD #### [facility] [address] [place] [address] Dr. Salvador Yung VIT D RANGES SEE BELOW [facility] Comment on above: Result Comment: <20 ng/mL Vit D deficient 20 - <30 ng/mL Vit D insufficient 30 - 100 ng/mL Vit D sufficient >100 ng/mL Potential Toxicity Performed By: #### V ITAD #### [facility] [address] [place] [address] Dr. Salvador Yung XR HIP LT 2 [...] No acute bony abnormality. Electronically authenticated by: MAIR LORENZO Date: 2022-05-21 16:26 Normal [facility] VC COMP CONSULTATIONon 05-01 VC COMP CONSULTATION Patient: REAGAN CEDILLO Exam Date: 05/01/2022 : 1950 Gender:F Ordering : DR. ADELE FLEMING D.P.M. Admission #: [id number] Family : Order #: [id number] CLICK HERE [...] small saphenous vein, right lower extremity incompetent site planner veins, and bilateral lower extremity incompetent branch [...] arterial disease 5. CEAP: C6, EC, AP, WA PLAN: 1. Continued use of compression stockings 2. Elevated legs and increased physical activity symptomatic relief 3. Endovenous laser ablation of right small saphenous vein and site planner vein. 4. Microfoam chemical ablation of dilated, [...] Lobato M.D. on 05/01/2022 at 15:27 Normal [facility] VC VENOUS REFLUX SAMI LMTon 0 05-01-2022 VC VENOUS REFLUX SAMI LMT Patient: LEELEE CEDILLO Exam Date: 05/01/2022 : 1950 Gender:F Ordering : DR. ADELE FLEMING D.P.MKimberlee Admission #: [id number] Family : DR ALFRED UMAÑA M.D. Order #: [id number] CLICK HERE TO VIEW EXAM RADIOLOGY REPORT [...] chronic thrombus visualized Compressibility: Normal Flow: Normal Technical Support Intern: Dist/med calf 2.6mm with 0s reflux. Mid/med calf 3.5mm with 0s reflux. Tech Note: GSV has been previously stripped. Patent varicose vein mid/med calf 2.3mm with 0.5s reflux. Patent varicose vein prox/med calf 3.4mm with 1.2s reflux. Patent varicose vein dist/med thigh 5.4mm with 0.8s reflux. CONCLUSION: 1. Dilated, incompetent right small saphenous vein. 2. 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 3. Consultation for endovenous laser ablation is recommended. Dictated by: Julio Lobato M.D. on 05/01/2022 at 14:06 Approved by: Julio Lobato M.D. on 05/01/2022 at 14:[address] [facility] BLEEDING TIMEon 11-17-2022 BLEEDING TIME 10.5 min Critically high 1.0-8.0 [facility] Comment on above: Performed By: #### B LTM #### [facility] [address] [place] [address] Dr. Salvador Yung CBC AUTO DIFFon 03-06-2022 BASO # 0.1 103/ul Normal 0.0-0.1 [facility] Comment on above: Performed By: #### C BC #### [facility] [address] [place] [address] Dr. Salvador Yung Basophils/100 WBC (Bld) 0.7 % Normal 0.2-2.0 [facility] Comment on above: Performed By: #### C BC #### [facility] [address] [place] [address] Dr. Salvador Yung EO # 0.1 103/ul Normal 0.0-0.7 [facility] Comment on above: Performed By: #### C BC #### [facility] [address] [place] [address] Dr. Salvador Yung Eosinophils/100 WBC (Bld) 0.7 % Critically low 0.9-7.0 [facility] Comment on above: Performed By: #### C BC #### [facility] [address] [place] [address] Dr. Salvador Yung Erythrocyte distribution width (RBC) [Ratio] 12.9 % Normal 11.0-15.0 [facility] Comment on above: Performed By: #### C BC #### [facility] [address] [place] [address] Dr. Salvador Yung Hematocrit (Bld) [Volume fraction] 41.3 % Normal 36.0-48.0 [facility] Comment on above: Performed By: #### C BC #### [facility] [address] [place] [address] Dr. Salvador Yung Hemoglobin (Bld) [Mass/Vol] 13.7 g/dL Normal 12.0-16.0 [facility] Comment on above: Performed By: #### C BC #### [facility] [address] [address] [address] Salvador Yung IG # 0.05 10e3/ul Critically high 0.00-0.03 [facility] Comment on above: Performed By: #### C BC #### [facility] [address] [place] [address] Dr. Salvador Yung IG % 0.7 % Critically high 0.0-0.5 [facility] Comment on above: Performed By: #### C BC #### [facility] [address] [place] [address] Dr. Salvador Yung LYMPH # 1.4 103/ul Normal 1.2-3.8 [facility] Comment on above: Performed By: #### C BC #### [facility] [address] [place] [address] Dr. Salvador Yung Lymphocytes/100 WBC (Bld) 18.9 % Critically low 20.5-60.0 [facility] Comment on above: Performed By: #### C BC #### [facility] [address] [place] [address] Dr. Salvador Yung MANUAL DIFF REQ NO Normal [facility] Comment on above: Performed By: #### C BC #### [facility] [address] [place] [address] Dr. Salvador Yung MCH (RBC) [Entitic mass] 30.3 pg Normal 26.7-34.0 [facility] Comment on above: Performed By: #### C BC #### [facility] [address] [place] [address] Dr. Salvador Yung MCHC (RBC) [Mass/Vol] 33.2 g/dL Normal 29.9-35.2 [facility] Comment on above: Performed By: #### C BC #### [facility] [address] [place] [address] Dr. Salvador Yung MCV (RBC) [Entitic vol] 91.4 fL Normal 81.0-99.0 [facility] Comment on above: Performed By: #### C BC #### [facility] [address] [place] [address] Dr. Salvador Yung MONO # 0.7 103/ul Normal 0.3-0.8 [facility] Comment on above: Performed By: #### C BC #### [facility] [address] [place] [address] Dr. Salvador Yung Monocytes/100 WBC (Bld) 9.9 % Normal 1.7-12.0 [facility] Comment on above: Performed By: #### C BC #### [facility] [address] [place] [address] Dr. Salvador Yung NEUT # 5.2 103/ul Normal 1.4-6.5 [facility] Comment on above: Performed By: #### C BC #### [facility] [address] [place] [address] Dr. Salvador Yung Neutrophils/100 WBC (Bld) 69.1 % Normal 43.0-75.0 [facility] Comment on above: Performed By: #### C BC #### [facility] [address] [place] [address] Dr. Salvador Yung Platelet mean volume (Bld) [Entitic vol] 7.9 fL Critically low 9.5-13.[address] [facility] Comment on above: Performed By: #### C BC #### [facility] [address] [place] [address] Dr. Salvador Yung PLT 223 103/ul Normal 150-[address] [facility] Comment on above: Performed By: #### C BC #### [facility] [address] [place] [address] Dr. Salvador Yung RBC 4.52 106/ul Normal 4.20-5.[address] [facility] Comment on above: Performed By: #### C BC #### [facility] [address] [place] [address] Dr. Salvador Yung WBC 7.5 103/ul Normal 4.0-11.[address] [facility] Comment on above: Performed By: #### C BC #### [facility] [address] [place] [address] Dr. Salvador Yung IRONon 03-06-2022 Iron [Mass/Vol] 83.0 ug/dL Normal 50.0-170.0 [facility] Comment on above: Performed By: #### I ESTEFANY #### [facility] [address] [place] [address] Dr. Salvador Yung PROTIMEon 03-06-2022 INR Coag (PPP) [Relative time] 0.95 {INR} Normal [facility] Comment on above: Performed By: #### P TT, PT #### [facility] [address] [place] [address] Dr. Salvador Yung INR GUIDELINES SEE BELOW Normal [facility] Comment on above: Result Comment: YOJANA RED INR: 2.0 - 3.0 CONDITIONS NOT LISTED BELOW 2.5 - 3.5 FOR PROSTHETIC HEART VALVE REPLACEMENT 2.5 - 3.5 RECURRENT THROMBOSIS Performed By: #### P TT, PT #### [facility] [address] [place] [address] Dr. Salvador Yung PT Coag (PPP) [Time] 10.3 s Normal 9.0-11.[address] [facility] Comment on above: Performed By: #### P TT, PT #### [facility] [address] [place] [address] Dr. Salvador Yung PTTon 03-06-2022 aPTT Coag (Bld) [Time] 22.1 s Critically low 22.3-36.2 [facility] Comment on above: Performed By: #### P TT, PT #### [facility] [address] [place] [address] Dr. Salvador Yung SCREENING MAMMOGRAM W/DANIEL, BILATERAL*on [...] IS VERY IMPORTANT TO YOUR HEALTH. CURRENT [place] [employer] GUIDELINES RECOMMENDS ANNUAL MAMMOGRAPHY BEGINNING AT AGE 41. THIS FACILITY USUALLY USES A REMINDER SYSTEM TO ENSURE ALL POSITIONS RECEIVED REMINDER NOTIFICATIONS AT THE TIME BASED ON THE RECOMMENDATIONS OF THIS EXAM. Report reported and signed by Julio Martines on 02/28/2022 1602 Normal [facility] Specialist Covid-19 PCR (CVDTBH)on 12-19 SARS-CoV-2 (COVID-19) RNA VIVIANA+probe Ql (Unsp spec) Not detected Normal NOT DETECTED [facility] Comment on above: Result Comment: This test is not yet approved or cleared by the [place] FDA. When there are no FDA-approved or cleared tests available, and other criteria are met, FDA can make tests available under an emergency access mechanism called an Emergency Use Authorization (EUA). The EUA for this test is supported by the [place] of Health and Human Service's (HHS's) declaration [...] SARS-CoV-2. Performed By: #### P OCGLUC #### [facility] [address] [place] [address] Dr. Salvador Yung MRI LSPINE WO CONon 12-11-19 MRI LSATTALLA WO CON HISTORY: Chronic low back pain [...] SARA LAUREN Date: 2021-12-10 12:[address] [facility] COVID-19 Positive/Negativeon 05-04-2020 COVID-19 Positive/Negative Negative Negative [facility] Comment on above: Testing for SARS-CoV -2 by RT-PCRThis test was developed and its performance characteristics determined by [employer] and validated at the [facility]. This test has not been [...] Otheron 05-04-2020 Coronavirus 2019 PCR Interp N/A [facility] Automated basophil %on 04-24 Basophils/100 WBC (Bld) 0.6 % [facility] Automated basophil counton 0 04-24-2020 Basophils (Bld) [#/Vol] 0.0 10*3/uL 0.0-0.2 [facility] Automated blood lymphocyte c ount (number/volume)on 04-24-2020 Lymphocytes (Bld) [#/Vol] 1.0 10*3/uL 1.00-4.8 [facility] Automated blood lymphocyte c ount as percentage of total leukocyteson 04-24-2020 Lymphocytes/100 WBC (Bld) 17.0 % [facility] Automated blood monocyte cou nton 04-24-2020 Monocytes (Bld) [#/Vol] 0.3 10*3/uL 0.0-0.8 [facility] Automated blood platelet cou nt (count/volume)on 04-24-2020 Platelets (Bld) [#/Vol] 224 10*3/uL 150-450 [facility] Automated blood platelet vikki n volume measurementon 04-24-2020 Platelet mean volume (Bld) [Entitic vol] 7.2 fL 6.3-10.7 [facility] Automated eosinophil %on Eosinophils/100 WBC (Bld) 3.5 % [facility] Automated eosinophil counton 04-24-2020 Eosinophils (Bld) [#/Vol] 0.2 10*3/uL 0.0-0.45 [facility] Automated erythrocyte distri bution width ratioon 04-24-2020 Erythrocyte distribution width (RBC) [Ratio] 13.0 % 11.9-15.3 [facility] Automated erythrocyte mean c orpuscular hemoglobin (mass per erythrocyte)on 04-24-2020 MCH (RBC) [Entitic mass] 27.7 pg 24.7-34.3 [facility] Automated erythrocyte mean c orpuscular hemoglobin concentration measurement (mass/volon 04-24-2020 MCHC (RBC) [Mass/Vol] 33.2 g/dL 32.0-35.0 [facility] Automated erythrocyte mean c orpuscular volumeon 04-24-2020 MCV (RBC) [Entitic vol] 83.3 fL 80-100 [facility] Automated erythrocytes count in urine sediment (number/area)on 04-24-2020 RBC Auto (Urine sed) [#/Area] None seen [HPF] [facility] Automated leukocytes count i n urine sediment (number/area)on 04-24-2020 WBC Auto (Urine sed) [#/Area] 0-1 [HPF] [facility] Automated monocyte %on 04-24 Monocytes/100 WBC (Bld) 6.1 % [facility] Automated neutrophil %on Neutrophils/100 WBC (Bld) 72.8 % [facility] Automated urine color determ inationon 04-24-2020 Color (U) Yellow Yellow [facility] Blood erythrocytes automated count (number/volume)on 04-24-2020 RBC (Bld) [#/Vol] 4.50 10*6/uL 3.60-5.00 [facility] Blood hemoglobin measurement (mass/volume)on 04-24-2020 Hemoglobin (Bld) [Mass/Vol] 12.5 g/dL 11.8-15.4 [facility] Blood leukocytes automated c ount (number/volume)on 04-24-2020 WBC (Bld) [#/Vol] 5.7 10*3/uL 3.8-11.6 [facility] Blood neutrophil count by au tomated method (number/volume)on 04-24-2020 Neutrophils (Bld) [#/Vol] 4.2 10*3/uL 1.8-7.7 [facility] Estimated glomerular filtrat ion rate (GFR) non- Americanon 04-24-2020 GFR/1.73 sq M predicted among non-blacks MDRD (S/P/Bld) [Vol rate/Area] mL/min/{1.73_m2} [facility] Hematocrit [Volume Fraction] of Blood by Automated counton 04-24-2020 Hematocrit (Bld) [Volume fraction] 37.5 % 34.0-46.4 [facility] Otheron 04-24-2020 GFR/1.73 sq M.predicted MDRD (S/P/Bld) [Vol rate/Area] mL/min/{1.73_m2} [facility] Comment on above: GFR estimated refere nce range: According to KDOQI guidelines, <60 ml/min/1.73m2 is sufficient to diagnose a patient with chronic kidney disease. Nucleated RBC/100 WBC (Bld) [Ratio] 0.1 % 0-0.5 [facility] Creatinine Clearance (Chem N/A [facility] Serum or plasma calcium kelly urement (mass/volume)on 04-24-2020 Calcium [Mass/Vol] 9.3 mg/dL 8.2-10.2 [facility] Serum or plasma chloride vikki surement (moles/volume)on 04-24-2020 Chloride [Moles/Vol] 101 mmol/L 95-114 [facility] Serum or plasma creatinine m easurement with calculation of estimated glomerular filtron 04-24-2020 Creatinine [Mass/Vol] 0.88 mg/dL 0.44-1.03 [facility] Serum or plasma glucose kelly urement (mass/volume)on 04-24-2020 Glucose [Mass/Vol] 116 mg/dL 70-100 [facility] Comment on above: ADA recommended refe rence rangeRandom Glucose Reference Range is dependent on time and content of last meal. Glucose of more than 200 mg/dL in a nonstressed, ambulatory subject supports the diagnosis of Diabetes Mellitus. Serum or plasma potassium me asurement (moles/volume)on 04-24-2020 Potassium [Moles/Vol] 3.8 mmol/L 3.5-5.1 [facility] Serum or plasma sodium measu rement (moles/volume)on 04-24-2020 Sodium [Moles/Vol] 136 mmol/L 136-146 [facility] Serum or plasma total carbon dioxide measurement (moles/volume)on 04-24-2020 CO2 [Moles/Vol] 23.1 mmol/L 22.0-30.0 [facility] Serum or plasma urea nitroge n measurement (mass/volume)on 04-24-2020 Urea nitrogen [Mass/Vol] 10 mg/dL 9-23 [facility] Specific gravity of Urine by Automated test stripon 04-24-2020 Specific gravity (U) [Rel density] 1.007 1.001-1.030 [facility] Squamous epithelial cells de tection in urine sediment by light microscopyon 04-24-2020 Epithelial cells.squamous LM Ql (Urine sed) None seen [HPF] [facility] Urinalysison 04-24-2020 Hyaline casts LM Ql (Urine sed) None seen [LPF] [facility] Urine bacteria detection by automated methodon 04-24-2020 Bacteria Auto Ql (U) None seen None Seen [facility] Urine clarity by refractomet ry automatedon 04-24-2020 Clarity Refractometry automated (U) Clear Clear [facility] Urine glucose measurement by automated test strip (mass/volume)on 04-24-2020 Glucose Auto test strip (U) [Mass/Vol] Normal mg/dL Normal [facility] Urine hemoglobin detection b y automated test stripon 04-24-2020 Hemoglobin Auto test strip Ql (U) Negative Negative [facility] Urine ketones measurement by automated test strip (mass/volume)on 04-24-2020 Ketones (U) [Mass/Vol] Negative Negative [facility] Urine leukocyte esterase det ection by automated test stripon 04-24-2020 Leukocyte esterase Auto test strip Ql (U) 1+ Negative [facility] Urine nitrite detection by t est stripon 04-24-2020 Nitrite Ql (U) Negative Negative [facility] Urine pH measurement by auto mated test stripon 04-24-2020 pH (U) 5.5 [pH] 5.0-9.0 [facility] Urine protein measurement by automated test strip (mass/volume)on 04-24-2020 Protein (U) [Mass/Vol] Negative Negative [facility] Urine total bilirubin detect ion by test stripon 04-24-2020 Bilirubin Ql (U) Negative Negative [facility] Urine urobilinogen measureme nt by automated test strip (mass/volume)on 04-24-2020 Urobilinogen (U) [Mass/Vol] Normal mg/dL Normal [facility] CT L-SPINE WO CONTRASTon CT L-SPINE WO CONTRAST Patient Name: LEELEE CEDILLO STUDY: CT L-SPINE WO CONTRAST;; 10/13/2018 12:05 pm INDICATION: Low back pain LUMBAGO. COMPARISON: None. ACCESSION NUMBER(S): [id number] ORDERING CLINICIAN: HAMLET GILMAN TECHNIQUE: Axial sections [...] combination with facet joint arthropathy noted causing [id number] left neural foramina narrowing. Transpedicular screws of [...] left lateral recess, left neural foramina and [id number] right neural foramina narrowing. IMPRESSION: Postoperative and [...] signed by: PATRICIA MURRAY MD Normal [facility] SPINE, ENTIRE THORACIC/LUMBA R, INCLUDE SKULL, CERVICAL [...] pm INDICATION: LUMBAGO. COMPARISON: None ACCESSION NUMBER(S): [id number]; [id number] ORDERING CLINICIAN: HAMLET GILMAN FINDINGS: Long radiograph [...] signed by: ADELE BA MD Normal [facility] SPINE, LUMBOSACRAL; CMPLT(BE NDING)on 10-13-2018 SPINE, LUMBOSACRAL; CMPLT(BENDING) Patient Name: LEELEE CEDILLO STUDY: SPINE, ENTIRE THORACIC/LUMBAR, INCLUDE SKULL, CERVICAL ANSD SACRAL SPINE WHEN PERFORMED 2 OR 3 VIEW; SPINE, LUMBOSACRAL CMPLT(BENDING); 10/13/2018 12:05 pm INDICATION: LUMBAGO. COMPARISON: None ACCESSION NUMBER(S): [id number]; [id number] ORDERING CLINICIAN: HAMLET GILMAN FINDINGS: Long radiograph [...] signed by: ADELE BA MD Normal [facility] Vital Signs Date Time Vital Sign Value Performing Clinician Facility 08-07-2023 11:44-0400 Diastolic blood pressure 86 mm[Hg] MD Sara Vick Work Phone: [facility] 08-07-2023 11:44-0400 Heart rate 67 /min MD Sara Vick Work Phone: [facility] 08-07-2023 11:44-0400 SaO2% (BldA) [Mass fraction] 99 % MD Sara Vick Work Phone: [facility] 08-07-2023 11:44-0400 Systolic blood pressure 132 mm[Hg] MD Sara Vick Work Phone: [facility] 07-01-2023 10:26-0400 Body height 172.72 cm MD Sara Vick Work Phone: [facility] 07-01-2023 10:26-0400 Body mass index (BMI) [Ratio] 29.5 kg/m2 MD Sara Vick Work Phone: [facility] 07-01-2023 10:26-0400 Body temperature 97.2 [degF] MD Sara Vick Work Phone: [facility] 07-01-2023 10:26-0400 Body weight 87.99 kg MD Sara Vick Work Phone: [facility] 07-01-2023 10:26-0400 Diastolic blood pressure 78 mm[Hg] MD Sara Vick Work Phone: [facility] 07-01-2023 10:26-0400 Heart rate 78 /min MD Sara Vick Work Phone: [facility] 07-01-2023 10:26-0400 SaO2% (BldA) [Mass fraction] 98 % MD Sara Vick Work Phone: [facility] 07-01-2023 10:26-0400 Systolic blood pressure 120 mm[Hg] MD Sara Vick Work Phone: [facility] 06-30-2023 14:39-0400 Diastolic blood pressure 70 mm[Hg] MD Sara Vick Work Phone: [facility] 06-30-2023 14:39-0400 Heart rate 75 /min MD Sara Vick Work Phone: [facility] 06-30-2023 14:39-0400 SaO2% (BldA) [Mass fraction] 99 % MD Sara Vikc Work Phone: [facility] 06-30-2023 14:39-0400 Systolic blood pressure 110 mm[Hg] MD Sara Vick Work Phone: [facility] 06-24-2023 13:13-0500 Body height 172.7 cm Ghanshyam Lombardi MD Work Phone: [facility] 06-24-2023 13:13-0500 Body weight 87.4 kg Ghanshyam Lombardi MD Work Phone: [facility] 06-24-2023 13:13-0500 Diastolic blood pressure 56 mm[Hg] Ghanshyam Lombardi MD Work Phone: [facility] 06-24-2023 13:13-0500 Heart rate 93 /min Ghanshyam Lombardi MD Work Phone: [facility] 06-24-2023 13:13-0500 Respiratory rate 18 /min Ghanshyam Lombardi MD Work Phone: [facility] 06-24-2023 13:13-0500 SaO2% (BldA) [Mass fraction] 97 % Ghanshyam Lombardi MD Work Phone: [facility] 06-24-2023 13:13-0500 Systolic blood pressure 115 mm[Hg] Ghanshyam Lombardi MD Work Phone: [facility] 05-15-2023 09:00-0500 Body weight 90.18 kg Larry Brown Other [facility] [employer] Other 05-15-2023 09:00-0500 Body weight 90.17 kg MD Sara Vick Work Phone: [facility] 05-15-2023 09:00-0500 Diastolic blood pressure 86 mm[Hg] Larry Brown Other [facility] 05-15-2023 09:00-0500 SaO2% (BldA) [Mass fraction] 99 % Larry Brown Other [facility] [employer] Other 05-15-2023 09:00-0500 Systolic blood pressure 148 mm[Hg] Larry Brown Other [facility] 05-13-2023 11:15-0500 Body height 175.26 cm Kiran Kessler Other [facility] 05-13-2023 11:15-0500 Body mass index (BMI) [Ratio] 29.24 kg/m2 Kiran Kessler Other [facility] Other 05-13-2023 11:15-0500 Body temperature 96.9 [degF] Kiran Mendozajudy Other [facility] Other 05-13-2023 11:15-0500 Body weight 89.81 kg Kiran Mendozajudy Other [facility] 05-13-2023 11:15-0500 Diastolic blood pressure 80 mm[Hg] Kiran Checo Other [facility] 05-13-2023 11:15-0500 SaO2% (BldA) [Mass fraction] 99 % Kiran Checo Other [facility] Other 05-13-2023 11:15-0500 Systolic blood pressure 140 mm[Hg] Kiran Checo Other [facility] 04-03-2023 10:15-0500 Body height 175.26 cm Larry Brown Other [facility] Other 04-03-2023 10:15-0500 Diastolic blood pressure 74 mm[Hg] Larry Brown Other [facility] Other 04-03-2023 10:15-0500 SaO2% (BldA) [Mass fraction] 99 % Larry Brown Other [facility] Other 04-03-2023 10:15-0500 Systolic blood pressure 118 mm[Hg] Larry Brown Other [facility] Other 03-25-2023 11:05-0500 Diastolic blood pressure 75 mm[Hg] MD Sara Vick Work Phone: [facility] 03-25-2023 11:05-0500 Heart rate 72 /min MD Sara Vick Work Phone: [facility] 03-25-2023 11:05-0500 Respiratory rate 18 /min MD Sara Vick Work Phone: [facility] 03-25-2023 11:05-0500 SaO2% (BldA) [Mass fraction] 97 % MD Sara Vick Work Phone: [facility] 03-25-2023 11:05-0500 Systolic blood pressure 146 mm[Hg] MD Sara Vick Work Phone: [facility] 03-25-2023 10:27-0500 Inhaled oxygen flow rate 3 L/min MD Sara Vick Work Phone: [facility] 03-25-2023 10:14-0500 Body height 173.99 cm MD Sara Vick Work Phone: [facility] 03-25-2023 10:14-0500 Body weight 88.45 kg MD Sara Vick Work Phone: [facility] 01-27-2023 14:30-0400 Body height 175.26 cm Dominique Shane Other [facility] Other 01-27-2023 14:30-0400 Diastolic blood pressure 70 mm[Hg] Dominique Shane Other [facility] Other 01-27-2023 14:30-0400 SaO2% (BldA) [Mass fraction] 98 % Dominique Shane Other [facility] Other 01-27-2023 14:30-0400 Systolic blood pressure 118 mm[Hg] Dominique Shane Other [facility] Other 01-09-2023 10:15-0400 Body height 175.26 cm Larry Brown Other [facility] Other 01-09-2023 10:15-0400 Body mass index (BMI) [Ratio] 29.56 kg/m2 Larryrandy Brown Other [facility] Other 01-09-2023 10:15-0400 Body weight 90.81 kg Larryrandy Brown Other [facility] Other 01-09-2023 10:15-0400 Diastolic blood pressure 78 mm[Hg] Larry Stephanie Other [facility] Other 01-09-2023 10:15-0400 SaO2% (BldA) [Mass fraction] 98 % Larry Stephanie Other [facility] Other 01-09-2023 10:15-0400 Systolic blood pressure 130 mm[Hg] Larry Stephanie Other [facility] Other 12-12-2022 09:30-0400 Body height 175.26 cm Larry Brown Other [facility] Other 12-12-2022 09:30-0400 Body mass index (BMI) [Ratio] 29.77 kg/m2 Larry Brown Other [facility] Other 12-12-2022 09:30-0400 Body weight 91.45 kg Larry Stephanie Other [facility] Other 12-12-2022 09:30-0400 Diastolic blood pressure 74 mm[Hg] Larry Stephanie Other [facility] Other 12-12-2022 09:30-0400 SaO2% (BldA) [Mass fraction] 99 % Larry Stephanie Other [facility] Other 12-12-2022 09:30-0400 Systolic blood pressure 122 mm[Hg] Larry Brown Other [facility] Other 09-19-2022 12:00-0400 Body height 175.26 cm Larry Brown Other [facility] Other 09-19-2022 12:00-0400 Body mass index (BMI) [Ratio] 30.8 kg/m2 Larry Brown Other [facility] Other 09-19-2022 12:00-0400 Body weight 94.62 kg Larry Brown Other [facility] Other 09-19-2022 12:00-0400 SaO2% (BldA) [Mass fraction] 95 % Larry Brown Other [facility] Other 09-18-2022 10:40-0400 Body height 172.7 cm Perfecto Burch MD Work Phone: [email or web address] 09-18-2022 10:40-0400 Body mass index (BMI) [Ratio] 31.26 kg/m2 Perfecto Burch MD Work Phone: [email or web address] 09-18-2022 10:40-0400 Body temperature 96.4 [degF] Perfecto Burch MD Work Phone: [email or web address] 09-18-2022 10:40-0400 Body weight 93.26 kg Perfecto Burch MD Work Phone: [email or web address] 07-27-2022 15:38-0400 Hourly Rounding [facility] 07-27-2022 15:38-0400 Promise to Return Francisco [facility] 07-27-2022 14:38-0400 Hourly Rounding [facility] 07-27-2022 14:38-0400 Promise to Return [facility] 07-27-2022 13:38-0400 Hourly Rounding [facility] 07-27-2022 13:38-0400 Promise to Return [facility] 07-27-2022 12:08-0400 Heart rate 106 /min [facility] 07-27-2022 12:08-0400 SaO2% (BldA) [Mass fraction] 100 % [facility] 07-27-2022 12:07-0400 Diastolic blood pressure 79 mm[Hg] [facility] 07-27-2022 12:07-0400 Mean blood pressure 103 mm[Hg] [facility] 07-27-2022 12:07-0400 Systolic blood pressure 151 mm[Hg] [facility] 07-27-2022 12:06-0400 Body temperature 97.16 [degF] [facility] 07-27-2022 07:46-0400 Heart rate 82 /min [facility] 07-27-2022 07:46-0400 SaO2% (BldA) [Mass fraction] 97 % [facility] 07-27-2022 07:46-0400 Diastolic blood pressure 81 mm[Hg] [facility] 07-27-2022 07:46-0400 Mean blood pressure 116 mm[Hg] [facility] 07-27-2022 07:46-0400 Systolic blood pressure 186 mm[Hg] [facility] 07-27-2022 07:45-0400 Body temperature 97.52 [degF] [facility] 07-27-2022 01:46-0400 Heart rate 89 /min [facility] 07-27-2022 01:46-0400 SaO2% (BldA) [Mass fraction] 96 % [facility] 07-27-2022 01:45-0400 Diastolic blood pressure 67 mm[Hg] [facility] 07-27-2022 01:45-0400 Mean blood pressure 89 mm[Hg] [facility] 07-27-2022 01:45-0400 Systolic blood pressure 134 mm[Hg] Farncisco [facility] 07-27-2022 01:45-0400 Body temperature 98.06 [degF] [facility] 07-27-2022 01:45-0400 Blood Pressure Location [facility] 07-27-2022 01:45-0400 Respiratory rate 18 /min [facility] 07-26-2022 20:00-0400 Respiratory rate 16 /min [facility] 07-26-2022 17:20-0400 Blood Pressure Location [facility] 07-26-2022 17:20-0400 Heart rate 78 /min [facility] 07-26-2022 15:30-0400 Respiratory rate 12 /min [facility] 07-26-2022 15:00-0400 Mean blood pressure 122 mm[Hg] [facility] 07-26-2022 15:00-0400 Respiratory rate 8 /min [facility] 07-26-2022 14:30-0400 Mean blood pressure 112 mm[Hg] [facility] 07-26-2022 14:30-0400 Respiratory rate 12 /min [facility] 07-26-2022 13:30-0400 Mean blood pressure 95 mm[Hg] [facility] 07-26-2022 11:35-0400 gluc 105 mg/dL [facility] 07-26-2022 11:35-0400 gluc [facility] 07-26-2022 11:35-0400 Heart rate 72 /min [facility] 07-26-2022 11:35-0400 Respiratory rate 18 /min [facility] 05-02-2022 10:00-0500 Body height 175.26 cm Larry Brown Other [facility] Other 05-02-2022 10:00-0500 Body mass index (BMI) [Ratio] 31.89 kg/m2 Larry Brown Other [facility] [employer] Other 05-02-2022 10:00-0500 Body weight 97.98 kg Larry Brown Other [employer] [facility] [employer] Other 05-02-2022 10:00-0500 Diastolic blood pressure 80 mm[Hg] Larry Brown Other [employer] [facility] [employer] Other 05-02-2022 10:00-0500 Systolic blood pressure 134 mm[Hg] Larry Brown Other [facility] [employer] Other 03-08-2022 17:00-0500 Diastolic blood pressure 117 mm[Hg] [facility] 03-08-2022 17:00-0500 Mean blood pressure 131 mm[Hg] [facility] 03-08-2022 17:00-0500 SaO2% (BldA) [Mass fraction] 95 % [facility] 03-08-2022 17:00-0500 Systolic blood pressure 160 mm[Hg] [facility] 03-08-2022 16:30-0500 Diastolic blood pressure 85 mm[Hg] [facility] 03-08-2022 16:30-0500 Heart rate 75 /min [facility] 03-08-2022 16:30-0500 Mean blood pressure 94 mm[Hg] [facility] 03-08-2022 16:30-0500 Respiratory rate 15 /min [facility] 03-08-2022 16:30-0500 SaO2% (BldA) [Mass fraction] 98 % [facility] 03-08-2022 16:30-0500 Systolic blood pressure 112 mm[Hg] [facility] 03-08-2022 16:10-0500 Diastolic blood pressure 74 mm[Hg] [facility] 03-08-2022 16:10-0500 Heart rate 93 /min [facility] 03-08-2022 16:10-0500 Mean blood pressure 90 mm[Hg] [facility] 03-08-2022 16:10-0500 Respiratory rate 14 /min [facility] 03-08-2022 16:10-0500 SaO2% (BldA) [Mass fraction] 98 % [facility] 03-08-2022 16:10-0500 Systolic blood pressure 122 mm[Hg] [facility] 03-08-2022 15:15-0500 Respiratory rate 18 /min [facility] 03-08-2022 15:00-0500 Hourly Rounding [facility] 03-08-2022 15:00-0500 Promise to Return [facility] 03-08-2022 14:45-0500 Respiratory rate 20 /min [facility] 03-08-2022 14:15-0500 Respiratory rate 20 /min [facility] 03-08-2022 14:14-0500 Hourly Rounding Wm Nag[facility] 03-08-2022 14:14-0500 Promise to Return [facility] 03-08-2022 13:54-0500 Heart rate 99 /min [facility] 03-08-2022 13:37-0500 Body temperature 97.7 [degF] [facility] 03-08-2022 13:37-0500 Heart rate 104 /min [facility] 03-08-2022 13:00-0500 Hourly Rounding [facility] 03-08-2022 13:00-0500 Promise to Return [facility] 03-07-2022 11:00-0500 Body height 175.26 cm Larry Brown Other [facility] [employer] Other 03-07-2022 11:00-0500 Body mass index (BMI) [Ratio] 32.54 kg/m2 Larry Brown Other [facility] Other 03-07-2022 11:00-0500 Body weight 99.97 kg Larry Brown Other [facility] Other 03-07-2022 11:00-0500 SaO2% (BldA) [Mass fraction] 99 % Larry Brown Other [facility] Other 06-20-2017 09:19-0500 PAIN LEVEL 0 {score} [...] Start: 12-27-2024 ambulatory Judson SAXENA Facility : [place] Start: 12-12-2024 ambulatory Judson SAXENA Facility:[facility] [place] Start: 12-09-2024 End: 12-09-2024 ambulatory Sara Vick MD Work Phone: [facility] Work Phone: Start: 12-09-2024 End: 12-09-2024 Departed Referred Sara Hampton MD -LAB [facility] Start: 10-30-2023 End: 10-30-2023 ambulatory SARA VICK Facility:[facility] Start: 08-08-2023 End: 08-08-2023 ambulatory GHANSHYAM LOMBARDI Facility:[facility] Start: 08-08-2023 End: 08-08-2023 Subsequent hospital visit by physician Mri 6 Radio Main Q (I-Stat/1.5t/3t) Work Phone: MRI Q Comment on above: 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, 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] Start: 08-07-2023 End: 08-07-2023 ambulatory MD Sara Vick Work Phone: [facility] Work Phone: Start: 08-07-2023 End: 08-07-2023 Patient encounter procedure MD Sara Vick Work Phone: [facility] Work Phone: Start: 08-05-2023 End: 08-06-2023 ambulatory ANNIE Rowell PRINTRichard Not Available Start: 07-15-2023 End: 07-15-2023 ambulatory ANNIE JIMENEZ Not Available Start: 07-13-2023 End: 07-13-2023 [facility] Start: 07-13-2023 End: 07-13-2023 Subsequent hospital visit by physician Dona [facility] Work Phone: Radiology Comment on above: Chronic bilateral lo w back pain with bilateral sciatica [M54.42, M54.41, G89.29] Start: 07-01-2023 End: 07-01-2023 Patient encounter procedure MD Sara Vick Work Phone: [facility] Work Phone: Start: 06-30-2023 End: 06-30-2023 Patient encounter procedure MD Sara Vick Work Phone: [facility] Work Phone: Start: 06-29-2023 End: 06-29-2023 ambulatory ANNIE JIMENEZ Not Available Start: 06-24-2023 End: 06-24-2023 Patient encounter procedure Ghanshyam Lombardi MD Work Phone: [facility] [place] Comment on above: 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); Chronic bilateral low back pain with bilateral sciatica Start: 06-24-2023 End: 06-24-2023 [facility] Facility:[facility] Start: 06-24-2023 End: 06-24-2023 Subsequent hospital visit by physician Xr Main Qb[facility] Radiology Comment on above: 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] Start: 05-22-2023 End: 05-22-2023 ambulatory MD Sara Vick Work Phone: [facility] Work Phone: Start: 05-22-2023 End: 05-22-2023 Patient encounter procedure MD Sara Vick Work Phone: [facility]Ultrasound [facility] [place] Work Phone: Start: 05-20-2023 End: 05-20-2023 Discharged Recurring MD Sara Vick Work Phone: [facility] [address] Start: 05-20-2023 Registered Recurring MD Gideon Vick Work Phone: [facility] [address] Start: 05-18-2023 Patient encounter procedure MD Sara Solomon Phone: [facility]- Start: 05-15-2023 End: 05-15-2023 ambulatory Larryrandy Brown Other [facility] [employer] Other Start: 05-15-2023 Office outpatient vi sit 25 minutes Larryrandy Brown [facility] [place] Start: 05-15-2023 End: 05-15-2023 Patient encounter procedure MD Sara Vick Work Phone: [facility]- Start: 05-13-2023 End: 05-13-2023 ambulatory Kiran Kessler Other [employer] [facility] [employer] Other Start: 05-13-2023 Office outpatient ne w 60 minutes Kiran Kessler [facility] Start: 05-13-2023 End: 05-13-2023 Patient encounter procedure MD Sara Solomon Phone: [facility]- Start: 04-16-2023 End: 04-16-2023 ambulatory Dominique Shane Other [facility] Other Start: 04-16-2023 Telephone encounter Dominique Shane [facility] Start: 04-03-2023 End: 04-03-2023 ambulatory Larry Stephanie Other [facility] Other Start: 04-03-2023 Office outpatient vi sit 15 minutes Larryrandy Brown [facility] [place] Start: 04-03-2023 End: 04-03-2023 Patient encounter procedure MD Sara Vick Work Phone: [facility] [place] Work Phone: Start: 12-06-2023 (PROC) PROCEDURE [facility]andy [facility] Start: 03-25-2023 End: 03-25-2023 Admission to same day surgery center MD Sara Vick Work Phone: [facility] Work Phone: Start: 03-25-2023 End: 03-25-2023 ambulatory MD Sara Vick Work Phone: [facility] Work Phone: Start: 03-06-2023 End: 03-06-2023 Patient encounter procedure MD Sara Vick Work Phone: [facility] [place] Work Phone: Start: 02-10-2023 End: 02-10-2023 ambulatory Dominique Shane Other [facility] Other Start: 02-10-2023 Telephone encounter Dominique Shane [facility] Start: 01-27-2023 End: 01-27-2023 ambulatory Dominique Shane Other [facility] Other Start: 01-27-2023 Office outpatient vi sit 25 minutes Dominique Shane [facility] [place] Start: 01-27-2023 Telephone encounter Larry Stephanie [facility] Start: 01-09-2023 End: 01-09-2023 ambulatory Larry Stephanie Other [facility] Other Start: 01-09-2023 Office outpatient vi sit 25 minutes Larry Stephanie [facility] [place] Start: 12-12-2022 End: 12-12-2022 ambulatory Larry Stephanie Other [facility] Other Start: 12-12-2022 Office outpatient vi sit 25 minutes Larry Stephanie [facility] [place] Start: 09-19-2022 End: 09-19-2022 ambulatory Lrary Stephanie Other [facility] Other Start: 09-19-2022 Office outpatient vi sit 25 minutes Larry [facility]ER[facility] [place] Start: 09-18-2022 ambulatory [facility] Start: 09-18-2022 End: 09-18-2022 Office outpatient [...] ambulatory ADELE FLEMING Facility:[facility] Start: 08-13-2022 ambulatory [facility] Start: 08-12-2022 End: 08-13-2022 ambulatory ADELE FLEMING Facility:[facility] Start: 08-08-2022 End: 08-09-[address] ALFRED UMAÑA Facility:[facility] Start: 08-01-2022 End: 08-02-2022 ambulatory ADELE FLEMING Facility:[facility] Start: 07-26-2022 End: 07-27-[address] [facility] Start: 07-25-2022 Encounter for preprocedural cardiovascular examination ADELE FLEMING [facility] Start: 07-25-2022 Encounter for preprocedural laboratory examination ADELE FLEMING [facility] Start: 07-24-2022 End: 07-25-2022 ambulatory ADELE FLEMING [...] MD Sara Vick Work Phone: [facility] Work Phone: Start: 06-19-2022 End: 06-19-2022 Discharged Recurring MD Sara Vick Work Phone: [facility] [place] Work Phone: Start: 06-13-2022 End: 06-14-2022 ambulatory [...] 05-02-2022 End: 05-02-2022 ambulatory Larry Brown Other [facility] Other Start: 05-02-2022 Office outpatient vi sit 25 minutes Larry Brown [facility] [facility] [place] Start: 05-01-2022 End: 01-13-2023 ambulatory ADELE FLEMING Facility:H1 Start: 04-22-2022 End: 04-23-2022 ambulatory ADELE Means [facility] Facility:H1 Start: 04-14-2022 End: 04-15-2022 ambulatory DEEPALI JANSEN Facility:H1 Start: 04-08-2022 (PROC) PROCEDURE [facility] Start: 04-08-2022 End: 04-08-2022 ambulatory Larry Brown Other [facility] Other Start: 03-31-2022 End: 04-01-[address] ALFRED UMAÑA Facility:[facility]1 Start: 03-08-2022 End: 03-08-2022 Emergency department patient visit [facility] Start: 03-07-2022 End: 03-07-2022 ambulatory Larry Brown Other [facility] Other Start: 03-07-2022 Office consultation new/estab patient 60 min Larry Brown [facility] [place] Start: 03-06-2022 End: 03-07-[address] SARA VICK . Facility:H1 Start: 01-03-2022 End: 01-03-[address] SARA VICK . Facility:[facility]1 Start: 12-09-2021 End: 12-10-2021 ambulatory SHAWANDA LITTLE Facility:[facility]1 Start: 11-05-2021 End: 11-06-2021 ambulatory ADELE Means [facility] Facility:H1 Start: 10-07-2021 End: 10-07-2021 ambulatory PO SUAREZ . Facility:H1 Start: 05-04-2020 End: 05-04-2020 Patient encounter procedure Sara Hoy -Pre-Surgical Testing Start: 05-02-2020 Registered Recurring Sara Vick -P hysical Therapy [place] Start: 04-24-2020 End: 04-24-2020 Patient encounter procedure Sara Tayy -Pre-Surgical Testing Start: 02-01-2020 End: 02-01-2020 Patient encounter procedure Sara Hoy -XRay [facility] Start: 06-29-2018 Patient encounter procedure Sara~[id number] UNKNOWN Hoy Facility:[facility] Start: 12-11-2017 End: 12-12-2017 Patient encounter DEFAULT PHYSICIAN Facility:[facility] Procedures Date Procedure Procedure Detail Performing Clinician Start: 08-08-2023 Mri spinal canal tho racic w/o contrast matrl Ghanshyam Lombardi MD Work Phone: Start: 07-13-2023 Ct lumbar spine w/o contrast material Ghanshyam Lombardi MD Work Phone: Start: 06-24-2023 End: 06-24-2023 Radex spine lumbosacral minimum 4 views Ros S Davidson [employer]PHOLST[employer] ME[employer]UR[employer]EL[employer] Work Phone: Start: 05-22-2023 Pulse volume recorde [...] o f lumbar spine using fluoroscopic guidance [employer] Comment on above: L4-5 70-80% relief a nd lasted 1.5 weeks Start: 04-28-2013 Epidural injection o f lumbar spine using fluoroscopic guidance [employer] Comment on above: L5-S1 50% relief Start: 02-21-2013 Injection of facet j oint using fluoroscopic guidance [facility] Comment on above: bilateral L3-S1 FJI 50% relief Start: 01-21-2013 Injection of facet j oint using fluoroscopic guidance [employer] Comment on above: bilateral L3-S1 FJI 0% relief that day, next day 40% relief and 50-60% relief Start: 01-03-2013 Epidural injection o f lumbar spine using fluoroscopic guidance [employer] Comment on above: L5-S1 50% relief Start: 09-02-2012 Epidural injection o f lumbar spine using fluoroscopic guidance [employer]t Comment on above: L5-S1 left,, no reli [...] identified in Urine by Culture Urine Culture [facility] Start: 12-09-2024 Urine culture [facility] Start: 08-04-2024 Screening for malignant neoplasm of breast Mammogram Screening [facility] Start: 06-23-2024 BP Controlled (<130/80) BP Controlled (<130/80) [facility] Start: 12-20-2023 Influenza vaccination Influenza Vaccine (Season Ended) [facility] Start: 05-22-2023 Pulse volume recorder pneumoplethysmography US arterial pvr rest [facility] Start: 05-22-2023 [facility] Start: 05-22-2023 Duplex scan of lower limb veins US venous duplex LE BI [facility] Start: 05-22-2023 US Lower extremity vein - bilateral [facility] Start: 04-20-2023 Advance Directive Discussion Advance Directive Discussion [facility] Start: 04-20-2023 Behavioral Health Screening Behavioral Health Screening [facility] Start: 04-20-2023 Depression Assessment Depression Assessment [facility] Start: 03-25-2023 [facility] Start: 02-28-2023 Screening for malignant neoplasm of breast Mammogram Screening [facility] Start: 12-19-2022 Covid-19 Vaccine ( season) Covid-19 Vaccine ( season) [facility] Start: 12-19-2022 Influenza vaccination Influenza Vaccine (#1) [facility] Start: 01-28-2022 COVID-19 VACCINE (5 - Booster for Pfizer series) COVID-19 VACCINE (5 - Booster for Pfizer series) [facility] Start: 08-24-2019 Screening for malignant neoplasm of breast MAMMOGRAM SCREENING DISCUSSION [facility] Start: 12-20-2016 Screening for osteoporosis Bone Density Screening [facility] Start: 06-17-2014 Diabetes Screening Diabetes Screening [facility] Start: 2011 RSV Vaccine (1 - 1-dose 60+ series) RSV Vaccine (1 - 1-dose 60+ series) [facility] Start: 12-20-2001 Shingrix Vaccine (1 of 2) Shingrix Vaccine (1 of 2) [facility] Start: 12-20-2001 Zoster vaccine hzv live for subcutaneous use ZOSTER (SHINGLES) VACCINE (1 of 2) [facility] Start: 12-20-1996 Lipid panel Lipid Screening [facility] Start: 12-20-1996 Screening for malignant neoplasm of colon [facility] Start: 1991 Lipid panel LIPID SCREENING [facility] Start: 12-20-1972 Screening for malignant neoplasm of cervix CERVICAL CANCER SCREENING DISCUSSION [facility] Start: 12-20-1970 Third diphtheria, tetanus and acellular pertussis (DTaP) vaccination TDAP (ADULT) [facility] Start: 12-20-1970 Urine microalbumin profile DTaP,Tdap,Td Vaccine (1 - Tdap) [facility] Start: 12-20-1969 Annual PCP Team Chronic Disease Visit Annual PCP Team Chronic Disease Visit [facility] Start: 1950 Hepatitis C screening HEPATITIS C VIRUS SCREENING [facility] Start: 1950 Screening for osteoporosis DEXA SCAN DISCUSSION [facility] Start: [address] [facility] End: 07-23-2024 CT Lumbar spine WO contrast CT LUMBAR SPINE WO IVCON Radiology Routine Chronic bilateral low back pain with bilateral sciatica 1 Occurrences starting 06/24/2023 until 07/23/2024 [facility] Work Phone: Comment on above: 1 Occurrences starting 06/24/2023 until 07/23/2024 End: 07-23-2024 MR Thoracic spine WO contrast MRI THORACIC SPINE WO IVCON Radiology Routine 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 1 Occurrences starting 06/24/2023 until 07/23/2024 [facility] Work Phone: Comment on above: 1 Occurrences starting 06/24/2023 until 07/23/2024 Patient Education Stephanie Non Diagn ostic Block [facility] Work Phone: Patient referral [facility] Work Phone: XR Knee - left 3 Views XR KNEE L EFT 3 VIEWS Imaging Routine Pain in prosthetic joint, sequela Ordered: 09/16/2022 [email or web address] Comment on above: Ordered: 09/16/2022 XR Pelvis and Hip - left Views X R HIP WITH PELVIS LEFT Imaging Routine Pain in prosthetic joint, sequela 09/18/2022 10:11 AM EDT [email or web address] Work Phone: [facility] Immunizations Immunization Date Immunization Notes Care Provider Fa [facility] 02-11-2022 Influenza, injectabl e, Madin [place] Canine Kidney, preservative free, quadrivalent MD Sara Vick Work Phone: [facility] 02-11-2022 influenza virus vacc ine, unspecified formulation Ghanshyam Lombardi MD Work Phone: [facility] 12-03-2021 COVID-19 Comirnaty (Pfizer) Tri-Sucrose 12+ MD Sara Vick Work Phone: [facility] 03-25-2021 COVID-19 mRNA, Comir nicolle (Pfizer) MD Sara Vick Work Phone: [facility] 07-12-2020 COVID-19, mRNA, LNP- S, PF, 30 mcg/0.3 mL dose [facility] Comment on above: Reason for Medicatio n: Prophylaxis 06-14-2020 COVID-19, mRNA, LNP- S, PF, 30 mcg/0.3 mL dose [facility] Comment on above: Reason for Medicatio n: Prophylaxis 02-08-2020 Seasonal trivalent influenza vaccine, adjuvanted, preservative free MD Sara Vick Work Phone: [facility] 02-23-2018 influenza, injectabl e, madin josephine canine kidney, preservative free MD Sara Vick Work Phone: [facility] 02-18-2018 pneumococcal polysaccharide vaccine, 23 valent [facility] [place] 06-18-2017 tuberculin skin test ; unspecified formulation Praveen Bynum 02-24-2017 pneumococcal polysaccharide vaccine, 23 valent MD Sara Vick Work Phone: [facility] 02-05-2017 influenza, high dose seasonal, preservative-free MD Sara Vick Work Phone: [facility] 02-05-2017 pneumococcal conjuga te vaccine, 13 valantony Nagy [facility] [place] 02-02-2016 influenza, seasonal, injectable, preservative free MD Sara Vick Work Phone: [facility] 10-20-2012 pneumococcal polysaccharide vaccine, 23 valantony Nagy [facility] Payers Date Payer Category Payer Unknown [id number] 2024 Self-pay [id number] 2022 Private Health Insurance 2018 Medicare [id number] [id number] 1959 Private Health Insurance [id number] 1950 Unknown [id number] ..840.1.703568.3.579.2.727 1950 Unknown [id number] 2..840.1.348187.3.579.2.159 1951 Unknown [id number] 2.16.840.1.244674.3.579.2.593 1951 Unknown [id number] 2.16.840.1.593217.3.579.2.593 1951 Unknown [id number] 2.16.840.1.177421.3.579.2.593 1951 Unknown [id number] 2.16.840.1.050447.3.579.2.593 1951 Unknown [id number] 2.16.840.1.172341.3.579.2.593 1951 Unknown [id number] 2.16.840.1.699344.3.579.2.593 1951 Unknown [id number] 2.16.840.1.672641.3.579.2.593 1951 Unknown [id number] 2.16.840.1.853424.3.579.2.593 1951 Unknown [id number] 2.16.840.1.454556.3.579.2.593 1951 Unknown [id number] 2.16.840.1.137431.3.579.2.593 1951 Unknown [id number] 2.16.840.1.412236.3.579.2.593 1951 Unknown [id number] 2.16.840.1.334508.3.579.2.593 1951 Unknown [id number] 2.16.840.1.289025.3.579.2.593 1951 Unknown [id number] 2.16.840.1.106183.3.579.2.593 1951 Unknown [id number] 2.16.840.1.083774.3.579.2.593 1951 Unknown [id number] 2.16.840.1.948824.3.579.2.593 1951 Unknown [id number] 2.16.840.1.416534.3.579.2.593 1951 Unknown [id number] 2.16.840.1.667560.3.579.2.593 1951 Unknown [id number] 2.16.840.1.564974.3.579.2.593 1951 Unknown [id number] 2.16.840.1.747262.3.579.2.593 1951 Unknown [id number] 2.16.840.1.438368.3.579.2.593 1951 Unknown [id number] 2.16.840.1.220406.3.579.2.593 1951 Unknown [id number] 2.16.840.1.137489.3.579.2.593 1951 Unknown [id number] 2.16.840.1.402520.3.579.2.593 1951 Unknown [id number] 2.16.840.1.869228.3.579.2.593 1951 Unknown [id number] 2.16.840.1.772885.3.579.2.593 1951 Unknown [id number] 2.16.840.1.881424.3.579.2.593 1951 Unknown [id number] 2.16.840.1.602672.3.579.2.593 1951 Unknown [id number] 2.16.840.1.781606.3.579.2.593 1951 Unknown [id number] 2.16.840.1.263256.3.579.2.983 1951 Unknown [id number] 2.16.840.1.559852.3.579.2.983 1951 Unknown [id number] 2.16.840.1.335055.3.579.2.983 1951 Unknown [id number] 2.16.840.1.295873.3.579.2.125 9 1951 Unknown [id number] 2.16.840.1.783893.3.579.2.125 9 1951 Unknown [id number] 2.16.840.1.296742.3.579.2.125 9 1951 Unknown [id number] 2.16.840.1.517261.3.579.2.727 Unknown Unknown [id number] Unknown [id number] Unknown [id number] Unknown HCAP/HFA/FAP Active [id number] Unknown [id number] 2.16.840.1.383420.3.579.2.531 Social History Date Type Detail Facility Start: 06-18-2017 Unknown if ever smoked [facility] Start: 04-24-2020 End: 07-01-2023 Tobacco smoking status NHIS Never smoked tobacco (finding) [facility] Start: 1950 Sex Assigned At Female F [facility] Start: 06-24-2023 Sex Assigned At F [facility] Start: 09-18-2022 Tobacco use and exposure Smokeless tobacco non-user [facility] Start: 09-18-2022 End: 06-24-2023 Alcohol intake Current drinker of alcohol (finding) [facility] Start: 09-18-2022 Alcohol Comment occasional [employer] [facility] Start: 1950 Sex Assigned At Not on file [facility] [employer] [facility] Start: 06-24-2023 [facility] National Score (1-100), lower number is lower risk 62 [facility] Sex Female (finding) [facility] Medical Equipment Procedure Code Equipment Code Equipment Origin al Text Equipment Identifier Dates Arthroplasty, knee, total, minimally invasive Orthopaedic cement, non-medicated ([id number] FDA Start: 05-07-2020 Arthroplasty, knee, total, minimally invasive Uncoated knee femur prosthesis, metallic ()[id number] FDA Start: 05-07-2020 Arthroplasty, knee, total, minimally invasive Tibial insert ()[id number] FDA Start: 05-07-2020 Arthroplasty, knee, total, minimally invasive Uncoated knee tibia prosthesis, metallic ()[id number] FDA Start: 05-07-2020 Arthroplasty, knee, total, minimally invasive Polyethylene patella prosthesis ()[id number] FDA Start: 05-07-2020 Goals Date Patient Goal Desired Activity /State Functional Status Date Assessment Result Facility 07-26-2022 Functional Status No [facility] 07-26-2022 Functional Status [facility] 03-08-2022 Functional Status No [facility] Clinical Notes 10-07-2021 to 08-08-2023 Flor [...] PATIENT PRESENTS WITH AN IMPLANTABLE OR ATTACHED FREELANCE DIRECTOR: No RADIOLOGY DEPARTMENT: MR; Exam(s) Completed: Spine: Thoracic spine PERIPHERAL IV DATA: Not applicable SIGNED BY: BAY Leo) August 08, 2023 3:59 PM documented in this encounter [facility] 08-08-2023 Note HNO ID: [id number] Author: FLOR ZIEGLER RT (R) Service: Radiology [...] PATIENT PRESENTS WITH AN IMPLANTABLE OR ATTACHED FREELANCE DIRECTOR: No RADIOLOGY DEPARTMENT: MR; Exam(s) Completed: Spine: Thoracic spine PERIPHERAL IV DATA: Not applicable SIGNED BY: RT Felipa(Bryce) August 08, 2023 3:59 PM [facility] 07-13-2023 History of Present illness Narrative Radiology [...] PATIENT PRESENTS WITH AN IMPLANTABLE OR ATTACHED FREELANCE DIRECTOR: No RADIOLOGY DEPARTMENT: CT; Exam(s) Completed: Spine PERIPHERAL IV DATA: Not applicable SIGNED BY: BAY Saez) July 13, 2023 10:44 AM documented in this encounter [facility] 07-13-2023 Note HNO ID: [id number] Author: TORRIE ABRAHAM RT(R) Service: Radiology Author [...] PATIENT PRESENTS WITH AN IMPLANTABLE OR ATTACHED FREELANCE DIRECTOR: No RADIOLOGY DEPARTMENT: CT; Exam(s) Completed: Spine PERIPHERAL IV DATA: Not applicable SIGNED BY: BAY Saez) July 13, 2023 10:44 AM [facility] 06-24-2023 Note HNO ID: [id number] Author: GHANSHYAM LOMBARDI MD Service: ? Author [...] 30 minutes spent Ghanshyam Lombardi MD [facility] 06-24-2023 History of Present illness Narrative Staff [...] Ghanshyam Lombardi MD documented in this encounter [facility] 05-15-2023 Evaluation note Encounter Date Diagnosis [...] In the meantime, she can continue taking Scheller as needed all as well as Gabapentin [...] and no personal patient information was compromised. [facility] 01-24-2024 Evaluation note* Encounter Date Diagnosis [...] agrees with plan all questions were addressed. [facility] 12-28-2023 Evaluation note* Encounter Date Diagnosis Assessment Notes Treatment Notes Treatment Clinical Notes Mar, Lumbar radiculopathy (ICD-10 - M54.16) 72 year old female evaluated via telephonic call for follow up and medication refill for chronic pain. She voices complaints of low back pain with intermittent radiation down the right lower extremity. She continues taking Scheller with relief and is requesting a refill of this today. I discussed different treatment options in detail with the patient. She feels medication is managing her pain and does not wish to proceed with injections at this time. I encouraged the patient to start physical therapy as previously discussed. She can also continue taking medications as prescribed and I will refill her Scheller as she feels this provides an element [...] pain (ICD-10 - G89.29) Continue medication management. [facility] 12-15-2023 Evaluation note* Encounter Date Diagnosis [...] pain (ICD-10 - G89.29) Continue medication management. [facility] 10-24-2023 Evaluation note* Encounter Date Diagnosis Assessment Notes Treatment Notes Treatment Clinical Notes Jan, Lumbar radiculopathy (ICD-10 - M54.16) [facility] 10-10-2023 Evaluation note* Encounter Date Diagnosis [...] regarding this. 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 Hydrocodone/Acetamin ophen was refilled today, opioid risk assessment was done as well as pill count. Patient is compliant with opioid medication. The patient denies any opioid related side effects. 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 Hydrocodone/Aceta minophen was refilled today, opioid risk assessment was done as well as pill count. Patient is compliant with opioid medication. The patient denies any opioid related side effects. Patients last urine drug screen was positive for alcohol, she is counselled against consuming alcohol. [facility] 08-25-2023 Evaluation note* Encounter Date Diagnosis [...] M51.36) Stable, follow up in 4 weeks. [facility] 06-02-2023 Evaluation note* Encounter Date Diagnosis [...] nerve blocks in the future if needed. [facility] 06-01-2023 History of Present illness Narrative* [...] 09/18/2022 10:58 AM Patient: Leelee Cedillo MR#: [id number] : 1950 Age: 71 y.o. Referring Physician: Sorin Dickerson DO Insurance: Payor: MEDICARE [employer] PPO / Plan: MEDICARE [employer] PPO / Product Type: *No Product type* [...] repair GALL BLADDER SURGERY 1999 BACK SURGERY [id number] FOOT SURGERY [phone] Family History: Her family history is not [...] [x]cane, []bracing Are you followed by a wad printing machine operator? [] [x] Name: Are you followed by [...] repair GALL BLADDER SURGERY 1999 BACK SURGERY [id number]- FOOT SURGERY [phone] No family history on file. Social History [...] Rash Flagyl [Metronidazole] [facility]ps[facility] Discharge instructions Patient Education 07/27/2022 [...] Follow these instructions at home: Medicines Take blwc-qho-udnbzhe and prescription medicines only as told by [...] 04/06/2006 Document Revised: 07/29/2019 Document Reviewed: 02/23/2019 [employer] Patient Education 2020 [employer]. 07/27/2022 15:20:26 Vasovagal Syncope, Pediatric Vasovagal Syncope, [...] ?Squatting. ?Moving his or her legs. Give gqxs-chf-wdpngtk and prescription medicines only as told by [...] 01/13/2009 Document Revised: 03/19/2018 Document Reviewed: 05/12/2017 [employer] Patient Education 2020 [employer]. Follow Up Care 07/26/2022 11:32:57 With:Sara Vick Address: [address] [place], [place] [address]- Business (1) When: Unknown Comments:Call for followup appointment 7-10 days With:Julio Ferrara MD, NEU Address: [address] [place] [address]- When:[address] to [address] [facility]04-09-2023 Evaluation + Plan noteExtracted from: Title:Discharge [...] Daily With When Contact Information Sara Vick [facility] [facility] [place] [address] [place] [address]- Business (1) Additional Instructions: Call for followup appointment 7-10 days Julio Ferrara MD, NEU Within 2 to [address] [place] [address]- Additional Instructions: Near-Syncope Vasovagal Syncope, Pediatric Extracted [...] is acute or subacute. It might turn supervisor to just be some focal white matter [...] specified devices) recent right foot surgery in [place] w/podiatry secondary to non healing food wound. Currently has wound vac intact to this operative site. 6. Osteoarthritis (M19.90: Unspecified osteoarthritis, unspecified site) osteoarthritis status post left hip replacement Has chronic back pain. 7. Morbid obesity (E66.01: Morbid (severe) obesity due to excess calories) -BMI 70.73 -Groutman on diet, exercise, weight loss and lifestyle [...] plan. Diagnostic Tests Pending * HgbA1c 07/27/[address] [facility]01-13-2023 Evaluation note* Encounter Date Diagnosis Assessment Notes [...] if her pain increases in the future. [facility] 01-04-2023 NotePROCEDURE: XR FOOT RT MIN [...] Electronically authenticated by: JULIO LOBATO Date: 2022-04-23 13:00[facility]01-04-2023 NotePROCEDURE: XR FOOT RT MIN 3 VIEWS, [...] Electronically authenticated by: JULIO LOBATO Date: 2022-04-23 13:00[facility]12-12-2022 NotePROCEDURE: XR ANKLE RT MIN 3 VIEWS [...] Electronically authenticated by: ALFRED UMAÑA Date: 2022-03-31 18:19[facility]11-19-2022 Hospital Discharge instructions Patient Education 03/08/2022 17:44:27 [...] 04/06/2006 Document Revised: 04/15/2017 Document Reviewed: 03/23/2017 [employer] Patient Education 2020 [employer]. 03/08/2022 17:44:27 Hip Dislocation Hip Dislocation Hip [...] Follow these instructions at home: Medicines Take uole-lbn-fkgnhud and prescription medicines only as told by your health care provider. Ask your health care provider if the medicine prescribed to you: ?Requires you to avoid driving or using heavy machinery. ?Can cause constipation. You may need to take actions to prevent or treat constipation, such as: ?Drink enough fluid to keep your urine pale yellow. ?Take xqhy-tmo-nbkqcpc or prescription medicines. ?Eat foods that are [...] in the [place] Do not drive yourself hospital for behavioral medicine. Summary Hip dislocation happens when the ball [...] 12/30/2001 Document Revised: 12/29/2018 Document Reviewed: 12/30/2018 [employer] Patient Education 2020 [employer]. Follow Up Care 03/08/2022 13:37:46 With:Sorin DICKERSON Address: [address] [place] [address] [address] [place] [address] Business (1) When:03/11/2022 17:44:09 Comments:Call to establish follow-up care. Wear brace until follow-up with orthopedic surgery. With:Sara Vick Address: [address] [place] [address] [place] [address] Business (1) When:03/11/2022 17:43:29 Comments:Call the office [...] you develop any new or worsening symptoms. [facility]11-19-2022 Evaluation + Plan noteExtracted from: Title:ED [...] XR Hip 2-3 Views Left + Pelvis [facility]11-18-2022 Evaluation note* Encounter Date Diagnosis Assessment [...] negative findings were considered in medical decision-making. [facility] 06-20-2022 NotePROCEDURE: XR FOOT RT MIN [...] authenticated by: JULIO LOBATO Date: 2021-10-07 11:44[facility] noteNo InformationNortTemple [facility] [employer] Other Evaluation noteNo assessment information available [facility] Work Phone: Evaluation note* Diagnosis Pain in prosthetic joint, sequela- [facility] Diagnosis Adjacent segment disease of lumbar spine with history of fusion procedure- Primary Chronic bilateral low back pain with bilateral sciatica documented in this encounter [facility] note* Diagnosis 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) documented in this encounter [facility] note* Diagnosis Chronic bilateral low back pain with bilateral sciatica documented in this encounter [facility] note* Diagnosis Onset Date Resolution Status Chronic pain acute Lumbar degenerative disc disease acute Lumbar radiculopathy acute Lumbosacral spondylosis acut e Sacroiliitis acute 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 acute Chronic pain acute Lumbar degenerative disc disease acute Lumbar radiculopathy acute Lumbosacral spondylosis acut e Sacroiliitis acute [facility] Work Phone: Evaluation note* Diagnosis 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 documented in this encounter [facility] general Narrative - Reported* Type Description [...] bolden-dr gilman 2019 [facility] Other History general Narrative - Reported* Type [...] 2 021 Surgical History back surgeries x5 [facility] yuandr gilman 2018 Hospitalization History see above [facility] Other History general Narrative - Reported* Type [...] 2 021 Surgical History back surgeries x5 [facility] yuandr gilman 2018 Surgical History lazer surgery on her lt leg veins and she also had sclero tx on b/l legs 2022 Hospitalization History see above [facility] Other Hospital course Narrative No data available for this section [facility] No data available for this section [facility] (narrative)* Diagnostic Procedure Only (Routine) - Closed Specialty Diagnoses / Procedures Referred By Maximiliano dee Referred To Contact XR IMAGING Diagnoses Fusion of spine of thoracolumbar region Procedures XR SCOLIOSIS PA STAND/LAT 2V RADEX ENTIR THRC LMBR CRV SAC SPI W/SKULL 2/3 VW Ros Cedeño APRN.CNP [address] [place] [address] [place] [address] Referral ID Status Reason Start Date Expiration Date V isits Requested Visits Authorized [id number] Closed Auto-Generate d Referral 02/25/2023 03/26/2024 1 1 * Diagnostic Procedure Only (Routine) - Closed Specialty Diagnoses / Procedures Referred By Contac t Referred To Contact XR IMAGING Diagnoses Fusion of spine of thoracolumbar region Procedures XR LUMBAR MOTION 4V AP/LAT/ FLEX/EXT RADEX SPINE LUMBOSACRAL MINIMUM 4 VIEWS Ros Cedeño, DRAPERY AND UPHOLSTERY MEASURER.COGNOS TM1 DEVELOPER [address] [facility] [place] [phone] X[facility] [place] [address] Referral ID Status Reason Start Date Expiration Date V isits Requested Visits Authorized [id number] Closed Auto-Generate d Referral 02/25/2023 03/26/2024 1 1 Electronically signed by Ros Cedeño DRAPERY AND UPHOLSTERY MEASURER.COGNOS TM1 DEVELOPER at 06/24/2023 12:11 PM EST [facility] for referral (narrative)* Diagnostic Procedure Only (Routine) - Closed Specialty Diagnoses / Procedures Referred By Contac t Referred To Contact MR IMAGING Diagnoses 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 Procedures MRI THORACIC SPINE WO IVCON MRI SPINAL CANAL THORACIC W/O CONTRAST MATRL Ghanshyam Lombardi MD [address] [place] [address] Mr Imaging [place] [address] Referral ID Status Reason Start Date Expiration Date V isits Requested Visits Authorized [id number] Closed Auto-Generate d Referral 08/07/2023 09/07/2023 1 1 [facility] for referral (narrative)No reason for referral [facility] Work Phone: Reason for visit Narrative* Diagnostic Procedure Only (Routine) - Closed Specialty Diagnoses / Procedures Referred By Contac t Referred To Contact XR IMAGING Diagnoses Fusion of spine of thoracolumbar region Procedures XR SCOLIOSIS PA STAND/LAT 2V RADEX ENTIR THRC LMBR CRV SAC SPI W/SKULL 2/3 VW Ros Cedeño, DRAPERY AND UPHOLSTERY MEASURER.COGNOS TM1 DEVELOPER [address] [facility] [place] [phone] Xr Imaging [place] [address] Referral ID Status Reason Start Date Expiration Date V isits Requested Visits Authorized [id number] Closed Auto-Generate d Referral 02/25/2023 03/26/2024 1 1 [facility] Advance Directives No Advanced Directives Records [...] i70.213 i83.813 Chief Complaint Referred By Dr. Tiffnaie Louie For Venous Med Refill Ankle scar therapy i70.213 i83.813 med refill 4 WK FOLLOW UP; PVR'S, FF [place] [facility] [place] CHRONIC PAIN [...] SPINE W/O CONTRAST MATERIAL Ghanshyam Lombardi MD [address] [place] [address] Ct Imaging [place] [address] Referral ID Status Reason Start Date Expiration Date Visits Requested Visits Authorized [id number] Pending Review Auto-Generat ed Referral 06/24/2023 07/23/2024 1 1 Specialty Diagnoses / Procedures Referred By Contac t Referred To Contact MR IMAGING Diagnoses 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 Procedures MRI THORACIC SPINE WO IVCON MRI SPINAL CANAL THORACIC W/O CONTRAST Ghanshyam Parker MD [address] [place] [address] Mr Imaging [place] [address] Referral ID Status Reason Start Date Expiration Date Visits Requested Visits Authorized [id number] Pending Review Auto-Generat ed Referral 06/24/2023 07/23/2024 1 1 Specialty Diagnoses / Procedures Referred By Contac t Referred To Contact Diagnoses Pain in prosthetic joint, sequela Procedures XR HIP WITH PELVIS LEFT Perfecto Burch MD [address] [place] [address] Referral ID Status Reason Start Date Expiration Date V isits Requested Visits Authorized [id number] New Request 09/18/2022 10/13/2023 1 1 Specialty Diagnoses / Procedures Referred By Contac t Referred To Contact Diagnoses Pain in prosthetic joint, sequela Procedures XR KNEE LEFT 3 VIEWS Perfecto Burch MD [address] [place] [address] Referral ID Status Reason Start Date Expiration Date V isits Requested Visits Authorized [id number] New Request 09/16/2022 10/11/2023 1 1 Additional Source Comments INFORMATION SOURCE (unrecogn ized section and content) DATE CREATED AUTHOR 12/13/2017 [facility] DATE CREATED AUTHOR AUTHOR'S ORGANIZ ATION 07/10/2018 [facility] DATE CREATED AUTHOR AUTHOR'S ORGANIZ ATION 02/25/2019 [facility] DATE CREATED AUTHOR AUTHOR'S ORGANIZ ATION 03/01/2022 [facility] dical Specialist DATE CREATED AUTHOR AUTHOR'S ORGANIZ ATION 07/26/2022 [facility] DATE CREATED AUTHOR AUTHOR'S ORGANIZ ATION 09/27/2022 [facility] DATE CREATED AUTHOR AUTHOR'S ORGANIZ ATION 09/27/2022 [facility] spital DATE CREATED AUTHOR AUTHOR'S ORGANIZ ATION 08/09/2023 [facility] dical Specialists [facility] DATE CREATED AUTHOR AUTHOR'S ORGANIZ ATION 11/05/2023 [facility] DATE CREATED AUTHOR AUTHOR'S ORGANIZ ATION 12/11/2024 [facility] DATE CREATED AUTHOR AUTHOR'S ORGANIZ ATION 2024 [facility] REASON FOR VISIT (unrecogniz ed section and content) Specialty Diagnoses / Procedures Referred By Contac t Referred To Contact Diagnoses Pain in prosthetic joint, sequela Procedures XR HIP WITH PELVIS LEFT Perfecto Burch MD [address] [place] [phone] Referral ID Status Reason Start Date Expiration Date V isits Requested Visits Authorized [id number] New Request 09/18/2022 10/13/2023 1 1 Reason Comments Pain New Patient Reason Comments New Patient Specialty Diagnoses / Procedures Referred By Contac t Referred To Contact CT IMAGING Diagnoses Chronic bilateral low back pain with bilateral sciatica Procedures CT LUMBAR SPINE WO IVCON CT LUMBAR SPINE W/O CONTRAST MATERIAL Ghanshyam Lombardi MD [address] [place] [address] Ct Imaging [place] [address] Referral ID Status Reason Start Date Expiration Date V isits Requested Visits Authorized [id number] Closed Auto-Generate d Referral 07/11/2023 08/10/2023 2 [...] CARLOS SEMAC A17 300 Ghanshyam Lombardi MD [address] [place] [address] [address] [facility] Main [address] [address] Referral ID Status Reason Start Date Expiration Date Visits Re quested Visits Authorized [id number] Closed 08/07/2023 09/07/2023 1 1 Patient Care team informatio n (unrecognized section and content) Team Status: Active Member Role Status Dates Sara Vick MD Primary Care Provider Active Team Status: Inactive Member Role Status Dates Sara Vick MD Primary Care Provider, Attending Pr ovider Active [employer] Relationship Specialty Start Date End Date Sara Vick MD [address] [place] [address] PCP - General Family Medicine 04/09/22 [employer] Relationship Specialty Start Date End Date Sara Vick MD [address] [place] [address] PCP - General Family Medicine 04/09/22 Team [...] May 22, 2023 End: May 22, 2023 [employer] Relationship Specialty Start Date End Date Sara Vick MD PCP - General Family Medicine 06/09/11 [employer] Relationship Specialty Start Date End Date Sara Vick MD PCP - General Family Medicine 06/09/11 [employer] Relationship Specialty Start Date End Date Sara [...] or prosecute any alcohol or drug abuse patient.[facility] the event this information is protected by the Federal Confidentiality of Alcohol and Drug Abuse Patient Records regulations: The Federal rules restrict any use of the information to criminally investigate or prosecute any alcohol or drug abuse patient.[facility] HospitalIn the event this information is protected by the Federal Confidentiality of Alcohol and Drug Abuse Patient Records regulations: The Federal rules restrict any use of the information to criminally investigate or prosecute any alcohol or drug abuse patient.[facility] HospitalIn the event this information is protected by the Federal Confidentiality of Alcohol and Drug Abuse Patient Records regulations: The Federal rules restrict any use of the information to criminally investigate or prosecute any alcohol or drug abuse patient.[facility] FOR RECORDS PERTAINING TO PATIENTS WHO [...] BE BASED ON THE PRIMARY CLINICAL RECORDS. [employer] [facility]. provides no warranty or guarantee of the accuracy or completeness of information in this document.
== END 2024-12-22 13:37 | disposition home or self-care (01) ==
LOC: WC 13:36
PROVIDERS: PCP Family Medicine; Visit Provider Physician Assistant
DX: L84 Corns and callosities (principal); I73.89 Other specified peripheral vascular diseases; L97.412 Non-pressure chronic ulcer of right heel and midfoot with fat layer exposed
CPT/HCPCS: G0463

== ENCOUNTER 2025-01-02 08:09 | Outpatient (OUT) | payer MEDICARE, SELFPAY ==
--- OUTSIDE RECORDS SUMMARY | 2024-12-20 07:00 | XMS_ITS ---
Author Organization [facility] in [place] Address [address] [place] [address] Care Team Providers Care Certified Personal Finance Counselor Name Role Phone Nixon Carrizales Primary Care [...] INJECT 1ML IN TO THE MUSCLE EVERY MONTH; Duration: 90 Active Accu-Chek FastClix Lancets - TEST BLOOD SUGAR EVERY DAY; Duration: 90 Active ALPRAZolam 0.25 MG 1 tablet Orally Twice a day; Duration: 30 days F41,9 10/11/2024 Active Alendronate Sodium 70 MG TAKE 1 TABLET E VERY WEEK; Duration: 84 Active Baclofen 20 MG 1 tab Orally qhs 11/21/2024 Active Doxycycline Monohydrate 100 MG 1 tablet Orally bid; Duration: 10 days 12/20/2024 Active Amoxicillin-Pot Clavulanate 875-125 MG 1 tablet Orally every 12 hrs; Duration: 10 days 12/20/2024 Active Vitamin D3 50 MCG (1999 UT) 1 capsule Or ally Once a day; Duration: 30 day(s) Active Rollator 1 rollator to safely complete ADLs DX M51.36; Duration: 365 days 10/11/2024 Active Pantoprazole Sodium 40 MG TAKE 1 TABLET EVERY DAY; Duration: 90 Active [place] & Syringes use for monthly b12 injections; Duration: 365 days 23G x 1 3ml syringe 08/16/2024 Active Meloxicam 15 MG TAKE 1 TABLET EVERY DAY; Duration: 90 Active Triamcinolone Acetonide 0.1 % 1 application Externally bid 11/28/2024 Active Losartan Potassium 100 MG 1 tablet Orall y Once a day; Duration: 30 days Active Levothyroxine Sodium 125 MCG TAKE 1 TABL ET EVERY DAY; Duration: 90 Active Gabapentin 600 MG TAKE 2 TABLETS Orall y bid; Duration: 30 days Active Social History Tobacco Use: Social History Observation Description Date Details (start date - stop date) Never Smoker NA - NA Tobacco Use/Smoking Question Answer Notes Patient is a nonsmoker Vital Signs Weight 189.4 lbs 12/20/2024 Height 68 in 12/20/2024 Blood pressure systolic 142 mm Hg 12/21/19 25 Blood pressure diastolic 78 mm Hg 025 BMI 28.8 kg/m2 12/20/2024 Encounters Encounter Location Date Provider Diagnosis [address] [address] 12/20/2024 Nixon Hoy Muscle spasm of back [...] Doxycycline Monohydrate 100 MG 1 tablet Orally bid; Duration: 10 days 12/20/2024 Amoxicillin-Pot Clavulanate 875-125 MG 1 tablet Orally every 12 hrs; Duration: 10 days 12/20/2024 Treatment Notes Assessment Notes Muscle spasm of back cont with meds Urinary incontinence repate rual in 10 - 14 days Acute bronchitis [...] mg/ml 12/20/2024 80 mg Progress Notes * Mariusz CEDILLOa MDOB: 2 (74 yo F)Acc No.[id number]:12/20/2024 Progress Note Patient: Leelee LAM Provider: Clary Carrizales ([facility])MD :1950 A ge:74 Y S ex:Female Date:12/20/2024 Address:[address] [place], [place] [id number] Check In:10:34 AM ESTCheck O ut:11:47 AM [...] Modified On:01/07/2023 Status:confirmed M17.11 Osteoarthritis of ri t knee Modified On:08/22/2022 Status:confirmed I82.451 Acute embolism [...] abetes mellitus with diabetic polyneuropathy, unspecified whether termite exterminator helper insulin use Modified On:08/09/2022U Status:confirmed E11.621 Type [...] On:02/20/2023U Status:confirmed L89.892 Decubitus ulcer of c long-term, stage 2, unspecified laterality Modified On:03/03/2023U Status:confirmed M51.26 Other intervertebral disc displacement, lumbar region Modified On:04/16/2023U Status:confirmed L97.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 OF MED. INTRAMUSCULAR OR [id number] TMC ACET,PER 10MG., Units: 8.00 J1885 TORADOL, PER 15 MG, Units: 4.00 , Modifiers: JZ J2360 NORFLEX,UP TO 60MG. * * Sign off status: Completed Visit Status: C HK (Check Out) true * Provider: Clary Carrizales ([facility])MD Date: 0 12/20/2024 Generated for Uday zuluaga/Kristian/eTransmitting on: 0 01/02/2025 08:12 AM EDT History and Physical Notes * [...]
--- OUTSIDE RECORDS SUMMARY | 2024-12-27 06:30 | XMS_ITS ---
Author Organization [facility] [place] Address [address] [place] [address] Care Team Providers Care Childhood Teacher Name Role Phone Nixon Carrizales Primary Care Provider Allergies Allergen (clinical drug ingredient) Drug/Non Drug Allergy documented on EMR Reaction Allergy Type Onset Date Status Substance with sulfonamide structure and antibacterial mechanism of action (substance) Sulfa Antibiotics rash Drug Allergy Active REASON FOR VISIT Presents to office alone for c/o chronic back pain, Left leg has been going numb and giving out Medications Medication SIG (Take, Route, Frequency, Duration) Notes Start Date End Date Status Triamcinolone Acetonide 0.1 % 1 application Externally bid 11/28/2024 Active Vitamin D3 50 MCG (1999 UT) 1 capsule Or ally Once a day; Duration: 30 day(s) Active [place] & Syringes use for monthly b12 injections; Duration: 365 days 23G x 1 3ml syringe 08/16/2024 Active Pantoprazole Sodium 40 MG TAKE 1 TABLET EVERY DAY; Duration: 90 Active Rollator 1 rollator to safely complete ADLs DX M51.36; Duration: 365 days 10/11/2024 Active Doxycycline Monohydrate 100 MG 1 tablet Orally bid; Duration: 10 days 12/20/2024 Active Gabapentin 600 MG TAKE 2 TABLETS Orall y bid; Duration: 30 days Active Levothyroxine Sodium 125 MCG TAKE 1 TABL ET EVERY DAY; Duration: 90 Active Losartan Potassium 100 MG 1 tablet Orall y Once a day; Duration: 30 days Active Meloxicam 15 MG TAKE 1 TABLET EVERY DAY; Duration: 90 Active Baclofen 20 MG 1 tab Orally qhs 11/21/2024 Active Cyanocobalamin 1000 MCG/ML INJECT 1ML IN TO THE MUSCLE EVERY MONTH; Duration: 90 Active Alendronate Sodium 70 MG TAKE 1 TABLET E VERY WEEK; Duration: 84 Active ALPRAZolam 0.25 MG 1 tablet Orally Twice a day; Duration: 30 days F41,9 10/11/2024 Active Amoxicillin-Pot Clavulanate 875-125 MG 1 tablet Orally every 12 hrs; Duration: 10 days 12/20/2024 Active Accu-Chek FastClix Lancets - TEST BLOOD SUGAR EVERY DAY; Duration: 90 Active Social History Tobacco Use: Social [...] Problem Status W/U Status Risk Notes Problem Lumbar radiculopathy (580776519) Lumbar radiculopathy (M54.16) Active confirmed Vital Signs Weight 188.4 lbs 12/27/2024 Height 68 in 12/27/2024 Blood pressure systolic 138 mm Hg 12/28/19 25 Blood pressure diastolic 74 mm Hg 025 BMI 28.64 kg/m2 12/27/2024 Encounters Encounter Location Date Provider Diagnosis [facility] [address] [place] [address] 12/27/2024 Nixon Hoy Lumbar radiculopathy M54.16 Assessments Encounter Date Diagnosis (ICD Code) Assessment Notes Treatment Notes Treatment Clinical Notes Section Notes 12/27/2024 Lumbar radiculopathy (ICD-10 - M54.16) 12/27/2024 Other Recommended to rest and use a heating pad on the area. Take NSAIDs for pain as needed Plan Of Treatment Treatment Notes Assessment Notes Other Recommended to rest and use a heating pad on the area. Take NSAIDs for pain as needed Pending Test Test Name Order Date MRI LSPINE WO CON 12/27/2024 Medications Administered Medication Instructions Date of Administration Dosage Notes Triamcinolone 40 mg/ml 12/27/2024 80 mg Ketorolac Tromethamine 12/27/2024 60 mg Orphenadrine Citrate 12/27/2024 60 mg Progress Notes * Leelee CEDILLO MDOB: 2 (74 yo F)Acc No.[id number]:12/27/2024 Progress Note Patient: Leelee LAM Provider: Clary Carrizales ([facility])MD :1950 A ge:74 Y S ex:Female Date:12/27/2024 Address:[address] [place], [place] [id number] Check In:10:21 AM ESTCheck O ut:11:29 AM EST Subjective: * Chief Complaints: * P resents to office alone for c/o chronic back painLeft leg has been going numb and giving out * HPI: G eneral: Low back pain - getting much worse -now with left leg numbness and weaknes s- dragging leg no new injury R lower leg somewaht numb also. B ack Pain: The patient complains of -. The symptoms have been present for 1-2 days. The patient believes symptoms are injury related No. The symptoms are mild. Symptomatic treatment has included heating pad, stretching. Associated symptoms include None. * ROS: G eneral/Constitutional: Lightheadedness d enies. C hange in appetite d enies. W eight Change d enies. C ardiovascular: Irregular heartbeat d enies. S welling in hands/feet?denies. R espiratory: Shortness of breath d enies. S hortness of breath with exertion d enies. W heezing d enies. M usculoskeletal: Comments S ee HPI for details. N eurologic: Dizziness d enies. F ainting d enies. H eadache?denies. 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, unspecified whether mcc insulin use Modified On:08/09/2022 Status:confirmed E11.621 Type 2 diabetes lisandro itus with foot ulcer Modified On:10/30/2022 Status:confirmed 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 Modified On:08/11/2022 Status:confirmed K21.9 Acid reflux Modified On:08/11/2022 Status:confirmed I10 Benign essential HTN Modified On:08/11/2022U Status:confirmed I87.2 Acute stasis dermati tis Modified On:08/11/2022 Status:confirmed E03.9 Hypothyroidism Modified On:08/11/2022 Status:confirmed L97.312 Chronic ulcer of rig ht ankle with fat layer exposed Modified On:08/29/2022 Status:confirmed R55 Syncope and collapse Modified On:08/25/2022 Status:confirmed I99.8 Other disorder of ci rculatory system Modified On:08/26/2022U Status:confirmed T81.89XA Delayed surgical wou nd healing Modified On:08/29/2022U Status:confirmed L89.512 Decubitus ulcer of r ight ankle, stage 2 Modified On:09/18/2022U Status:confirmed L89.511 Pressure injury of r ight ankle, stage 1 Modified On:09/18/2022 Status:confirmed E11.42 Diabetes mellitus wi th diabetic polyneuropathy Modified On:10/30/2022U Status:confirmed J01.90 Acute sinus infectio n Modified On:11/03/2023W/U Status:confirmed L89.892 Decubitus ulcer of c zion, [...] Frequency of micturi tion Modified On:11/28/2024U Status:confirmed M54.16 Lumbar radiculopathy Modified On:12/27/2024U Status:confirmed * Medical History: * Surgical History: [...] Brown * Hospitalization/Major Diagno stic Procedure: S pranayre activity- 08/10Multiple times for surgeries Hip dislocation [...] Tablet 1 tablet Orally Twice a day F41,9Amoxicillin-Pot Clavulanate 875-125 MG Tablet 1 tablet Orally every 12 hrs Baclofen 20 MG Tablet 1 tab Orally qhs Cyanocobalamin 1000 MCG/ML Solution INJECT 1ML INTO THE MUSCLE EVERY MONTH Doxycycline Monohydrate 100 MG Tablet 1 tablet Orally bid Gabapentin 600 MG Tablet TAKE 2 TABLETS Orally bid Levothyroxine Sodium 125 MCG Tablet TAKE 1 TABLET EVERY DAY Losartan Potassium 100 MG Tablet 1 tablet Orally Once a day Meloxicam 15 MG Tablet TAKE 1 TABLET EVERY DAY [employer] Syringes use for monthly b12 injections 23G x 1 3ml syringePantoprazole Sodium 40 MG Tablet Delayed Release TAKE 1 TABLET EVERY DAY Rollator 1 rollator to safely complete ADLs DX M51.36 Triamcinolone Acetonide 0.1 % Cream 1 application Externally bid Vitamin D3 50 MCG (2000 UT) Capsule 1 capsule Orally Once a day Medication List reviewed and reconciled with the patientTaking Accu-Chek FastClix Lancets(Lancets) - Miscellaneous TEST BLOOD SUGAR EVERY DAY Taking Alendronate Sodium 70 MG Tablet TAKE 1 TABLET EVERY WEEK Taking ALPRAZolam 0.25 MG Tablet 1 tablet Orally Twice a day F41,9Taking Amoxicillin-Pot Clavulanate 875-125 MG Tablet 1 tablet Orally every 12 hrs Taking Baclofen 20 MG Tablet 1 tab Orally qhs Taking Cyanocobalamin 1000 MCG/ML Solution INJECT 1ML INTO THE MUSCLE EVERY MONTH Taking Doxycycline Monohydrate 100 MG Tablet 1 tablet Orally bid Taking Gabapentin 600 MG Tablet TAKE 2 TABLETS Orally bid Taking Levothyroxine Sodium 125 MCG Tablet TAKE 1 TABLET EVERY DAY Taking Losartan Potassium 100 MG Tablet 1 tablet Orally Once a day Taking Meloxicam 15 MG Tablet TAKE 1 TABLET EVERY DAY Taking [place] & Syringes use for monthly b12 injections 23G x 1 3ml syringeTaking Pantoprazole Sodium 40 MG Tablet Delayed Release TAKE 1 TABLET EVERY DAY Taking Rollator 1 rollator to safely complete ADLs DX M51.36 Taking Triamcinolone Acetonide 0.1 % Cream 1 application Externally bid Taking Vitamin D3 50 MCG (2000 UT) Capsule 1 capsule Orally Once a day Medication List reviewed and reconciled with the patient * Allergies: S ulfa Antibiotics: rashno[Allergies Verified] Objective: * Vitals: W t:188.4lbs, Ht: 68 in, BP:138/74mm Hg, BMI:28.64Index, Wt-k.46 kg. * Examination: G eneral Examination: GENERAL APPEARANCE: i n no acute distress, well developed, well nourished. LUNGS: clear to auscultation bilaterally. CARDIO: S1, S2 normal, no murmurs, rubs, gallops. MUSCULOSKELETAL: P oor rom in back due to pain and + SLR with left leg . EXTREMITIES: no clubbing, cyanosis, or edema. NEUROLOGIC: alert, oriented to time, place, & person.? Assessment: * Assessment: 1. L umbar radiculopathy - M54.16 (Primary) Plan: * Treatment: 2. O thers Notes: Recommended to rest and use a heating pad on the area. Take NSAIDs for pain as needed ? * Therapeutic Injections: Triamcinolone 40 mg/ml : 80 mg (Route: Intramuscular) given by Marian Diaz , MR on right gluteus (Lumbar radiculopathy) Ketorolac Tromethamine : 60 mg (Route: Intramuscular) given by Marian Diaz , MR on left gluteus (Lumbar radiculopathy) Orphenadrine Citrate : 60 mg (Route: Intramuscular) given by Marian Diaz , MR on left gluteus (Lumbar radiculopathy) * Procedure Codes: [id number] THERAP.INJ. OF MED. INTRAMUSCULAR OR [id number] TMC ACET,PER 10MG., Units: 8.00 J1885 TORADOL, PER 15 MG, Units: 4.00 , Modifiers: JZ J2360 NORFLEX,UP TO 60MG. * Preventive Medicine: Screenings/Counseling: B MT ACTION PLAN Above Normal BMI Follow-up D ietary management education, guidance, and counseling See treatment section of progress note for complete details of management plan. F ALL RISK SCREENING Fall Risk Assessment: N o falls in the past year * * Sign off status: Completed Visit Status: C HK (Check Out) true * Provider: Clary Carrizales ([facility])MD Date: 12/27/2024 Generated for Printi margareth/Kristian/eTransmitting on: 01/02/2025 08:13 AM EDT History and Physical Notes * HPI (History of Present Illness) Category Sub-Category Detail Notes Category Not es General Low back pain - getting much worse -now with left leg numbness and weaknes s- dragging leg no new injury R lower leg somewaht numb also Examination Category Sub-Category Detail Notes Category Not es General Examination GENERAL APPEARANCE: in no ac tania distress, well developed, well nourished CARDIO: S1, S2 normal, no mu rmurs, rubs, gallops LUNGS: clear to auscultatio n bilaterally NEUROLOGIC: alert, oriented to t jessica, place, & person EXTREMITIES: no clubbing, cyanosi s, or edema MUSCULOSKELETAL: Poor rom in back due to pain and + SLR with left leg
--- OUTSIDE RECORDS SUMMARY | 2024-12-27 07:15 | XMS_ITS ---
Author Organization [facility] [place] Address [address] [place] [address] Care Team Providers Care Draw Press Operator Name Role Phone All Nixon Primary Care Provider [phone] Reason For Referral Diagnosis 1 Lumbar post-laminect reynaldo syndrome (M96.1) Diagnosis 2 DJD (degenerative diana int disease) (M19.90) Referral Organization [facility] Medicine Referring Provider First Name Nixon Referring Provider Last Name All Referring Provider Speciality Family [facility] icine Referred Provider Specialty Orthopedic S urgery Referral Priority Routine REASON FOR VISIT referral Encounters Encounter Location Date Provider Diagnosis [facility] [address] [place] [address] 12/27/2024 Nixon Carrizales Lumbar post-laminectomy syndrome M96.1 and DJD (degenerative joint disease) M19.90 Assessments Encounter Date Diagnosis (ICD Code) Assessment Notes Treatment Notes Treatment Clinical Notes Section Notes 12/27/2024 Lumbar post-laminectom y syndrome (ICD-10 - M96.1) 12/27/2024 DJD (degenerative joint disease) (ICD-10 - M19.90) Plan Of Treatment Referrals Referral Date Details 12/27/2024 12/27/2024 Progress Notes * Leelee CEDILLO MDOB: (74 yo F)Acc No.[id number]:12/27/2024 Patient: Sandi Leelee JAUREGUI :1950 A ge:74 Y S ex:Female Address:[address] [place] [address], [id number] Subjective: * Chief Complaints: * R eferral * Medical History: * Surgical History: * Hospitalization/Major Diagno stic Procedure: * Medications: Objective: * Vitals: * Physical Examination: Assessment: * Assessment: 1. L umbar post-laminectomy syndrome - M96.1 (Primary) 2 . D TONNY (degenerative joint disease) - M19.90 Plan: * Treatment: 2. D TONNY (degenerative joint disease) Referral To:Orthopedic Surgery Reason: * Procedure Codes: * true * Date: Generated for Uday zuluaga/Kristian/eTransmitting on: 0 01/02/2025 08:14 AM EDT Consultation Request Notes Referral Date Referring Provider Referred Provider Not es 12/27/2024 Nixon Carrizales ,
--- OUTSIDE RECORDS SUMMARY | 2025-01-02 08:12 | XMS_ITS | Encounter Summary ---
Author Organization [facility] Address [address] [place], [place] [id number] Care Team Providers Care Engraver Block Name Role Phone Leander Carrizales MD Primary Care Provider [phone] Source Comments In the event this information is protected by the Federal Confidentiality of Alcohol and Drug AbusePatient Records regulations: The Federal rules restrict any use of the information to criminally investigate or prosecute any alcohol or drug abuse patient.[facility] Reason for Referral * Diagnostic Procedure Only (Routine) - Closed Specialty Diagnoses / Procedures Referred By Contac t Referred To Contact XR IMAGING Diagnoses Fusion of spine of thoracolumbar region Procedures XR SCOLIOSIS PA STAND/LAT 2V RADEX ENTIR THRC LMBR CRV SAC SPI W/SKULL 2/3 VW Antonietta Cedeño APRN.AIRPLANE RENTAL CLERK [address] [place] [address] Phone: tel: fax: XR IMAGING [id number] Referral ID Status Reason Start Date Expiration Date V isits Requested Visits Authorized [id number] Closed Auto-Generate d Referral 02/25/2023 03/26/2024 1 1 * Diagnostic Procedure Only (Routine) - Closed Specialty Diagnoses / Procedures Referred By Contac t Referred To Contact XR IMAGING Diagnoses Fusion of spine of thoracolumbar region Procedures XR LUMBAR MOTION 4V AP/LAT/ FLEX/EXT RADEX SPINE LUMBOSACRAL MINIMUM 4 VIEWS Antonietta Cedeño APRN.CNP [address] [place] [address] Phone: tel: fax: [place] [phone] Referral ID Status Reason Start Date Expiration Date V isits Requested Visits Authorized [id number] Closed Auto-Generate d Referral 02/25/2023 03/26/2024 1 1 Encounter Details Date Type Department Care Team (Late st Contact Info) Description 02/20/2023 Abstract Neurology [address] [place] [id number] (Hist), Unk Pcp Social History Tobacco Use [...] changes with no evidence of hardware complication. Wood Strip Block Floor Installer: ELAINE Transcribe Date/Time: Jun 24 2023 12:52P [...] Number of different views (projections): 2 (accession [id number]), 4 (accession [id number]) COMPARISON: Radiographs dated 09/23/2021 RESULT: Counting reference: [...] No other significant abnormality. Procedure Note Provider, [facility] - 06/24/2023 * * *Final Report* * [...] Number of different views (projections): 2 (accession [id number]), 4 (accession [id number]) COMPARISON: Radiographs dated 09/23/2021 RESULT: Counting reference: [...] changes with no evidence of hardware complication. Wood Strip Block Floor Installer: ELAINE Transcribe Date/Time: Jun 24 2023 12:52P [...] changes with no evidence of hardware complication. Wood Strip Block Floor Installer: PSCB Transcribe Date/Time: Jun 24 2023 12:52P [...] Number of different views (projections): 2 (accession [id number]), 4 (accession [id number]) COMPARISON: Radiographs dated 09/23/2021 RESULT: Counting reference: [...] No other significant abnormality. Procedure Note Provider, [facility] - 06/24/2023 * * *Final Report* * [...] Number of different views (projections): 2 (accession [id number]), 4 (accession [id number]) COMPARISON: Radiographs dated 09/23/2021 RESULT: Counting reference: [...] changes with no evidence of hardware complication. 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
--- NOTE | 2025-01-02 08:13 | US_ITS ---
The [address] [address] Patient Name: KENAN CHASE MRN: [id number] date: 1950 Sex: F Assigned Patient Location: MRI Current Patient Location: MRI Accession/Order Number: [id number] Exam Date: 01/02/2025 09:30 Report Date: 01/02/2025 10:06 At the request of: SARA VICK MD Procedure: US renal bladder BILATERAL RENAL AND BLADDER ULTRASOUND CLINICAL HISTORY: Left flank pain and microscopic hematuria COMPARISON: 05/26/2023 Estimation of renal size is approximately 8.5 cm on the right and 8.4 cm on the left. No shadowing calculi or hydronephrosis are identified. No renal mass lesions were imaged. There is no perinephric fluid. The urinary bladder is partially distended with a volume of 195 mL. No contour or intraluminal abnormalities are seen. The post void bladder residual is 5 mL. Patient was observed for 5 minutes and ureteral jets were not identified. US/US renal bladder IMPRESSION: NO OBSTRUCTIVE UROPATHY. Impression dictated by: Ina Loredo M.D. 01/02/2025 10:06 AM Dictation Location: [place] [address] Electronically authenticated by: [id number] Y Date: 01/02/2025 10:06
--- NOTE | 2025-01-02 08:13 | MR_ITS ---
The [address] [address] Patient Name: KENAN CHASE MRN: [id number] date: 1950 Sex: F Assigned Patient Location: MRI Current Patient Location: MRI Accession/Order Number: [id number] Exam Date: 01/02/2025 08:30 Report Date: 01/02/2025 14:25 At the request of: SARA VICK MD Procedure: MR lumbar spine wo con MRI of the lumbar spine COMPARISON: MRI lumbar 02/03/2023 and x-rays lumbar spine 12/20/2024. Indication: Muscle spasm back FINDINGS: Redemonstration of multilevel postsurgical changes changes status post multilevel laminectomy and fusion T11-L4. Evidence of interbody ankylosis L4-5. Partial interbody ankylosis L3-4 and interbody ankylosis L1-L2. Moderate anterior to space narrowing L2-L3. There is a fluid fluid level at the L5-S1 disc space identified. There is widening of the anterior L5-S1 disc space noted sided progressed from the prior. Presacral diminished T1 and T2 signal and minimal areas of T1 signal noted possibly reactive changes or hypertrophic changes. Otherwise endplate sclerosis identified at L5-S1. Evidence of left extreme left lateral fixation L1-L2.. No evidence of abnormal marrow edema to suggest compression fracture. Fatty replacement of much of the posterior paraspinal musculature noted. T12-L1: Disc desiccation.. No focal disc protrusion, central canal or neural from narrowing identified. L1-L2: Interbody ankylosis. Diffuse endplate osteophytosis and spurring causing mild foraminal narrowing. There is mild central canal stenosis. L2-3: Disc desiccation. No focal disc protrusion. Mild right and at least moderate left-sided neural foraminal narrowing due to endplate ossific spurring. L3-4: Interbody ankylosis with impacted osteophytosis and spurring causing mild foraminal narrowing. Canal is decompressed/patent. L4-5: Interbody ankylosis with diffuse and osteophytosis and spurring. This results in moderate bilateral neural foraminal narrowing. Canal is decompressed and patent. L5-S1: Widening of the disc space with abnormal fluid collection noted within the fluid.. Evidence of moderate to severe facet arthropathy with facet spurs and effusions. There is moderate severe neural foraminal narrowing. MR/MR lumbar spine wo con IMPRESSION: Redemonstration of moderate severe foraminal narrowing at L5-S1. Similar appearance of the fluid fluid level at the L5-S1 disc space with widening of the L5 disc space. Question this is related to ligamentous laxity. Consider flexion extension views of the lumbar spine. Impression dictated by: Celio Dukes M.D. 01/02/2025 2:25 PM Dictation Location: [place] [address] Electronically authenticated by: [id number] Y Date: 01/02/2025 14:25
--- OUTSIDE RECORDS SUMMARY | 2025-01-02 08:13 | XMS_ITS | Encounter Summary ---
Author Organization [facility] Address [address] [place] [address] Care Team Providers Care Fire Ranger Name Role Phone Leander Carrizales MD Primary Care Provider [phone] Source Comments In the event this information is protected by the Federal Confidentiality of Alcohol and Drug AbusePatient Records regulations: The Federal rules restrict any use of the information to criminally investigate or prosecute any alcohol or drug abuse patient.[facility] Encounter Details Date Type Department Care Team (Late st Contact Info) Description 08/06/2023 [place] [address] Provider, Ccf Questionnaire Submission Social History Tobacco Use Types Packs/Day Years Used Date Smoking Tobacco: Never Alcohol Use Standard Drinks/Week Comments Yes 6 (1 standard drink = 0.6 oz pur e alcohol) Area Deprivation Index Answer Date Doron rded National Score (1-100), lower number is lower ri sk 62 06/24/2023 State Score (1-10), lower number is lower risk 4 06/24/2023 Data from: https://www.neighborhoodatlas.medicine.[facility].edu/. Last address used for calculation [address] [facility] 06/24/2023 Comments No Sex and Gender Information [...] on filedocumented in this encounter Care Teams Fire Ranger Relationship Specialty Start Date End Date Leander Carrizales MD PCP - General Family Medicine 06/09/11 documented as of this encounter
--- OUTSIDE RECORDS SUMMARY | 2025-01-02 08:13 | XMS_ITS | Encounter Summary ---
Author Organization [facility] Address [address] [place] [address] Care Team Providers Care Junior Net Developer Name Role Phone Leander Carrizales MD Primary Care Provider [phone] Source Comments In the event this information is protected by the Federal Confidentiality of Alcohol and Drug AbusePatient Records regulations: The Federal rules restrict any use of the information to criminally investigate or prosecute any alcohol or drug abuse patient.[facility] Encounter Details Date Type Department Care Team (Late st Contact Info) Description 07/29/2023 [place] [address] Provider, Ccf Questionnaire Submission Social History Tobacco Use Types Packs/Day Years Used Date Smoking Tobacco: Never Alcohol Use Standard Drinks/Week Comments Yes 6 (1 standard drink = 0.6 oz pur e alcohol) Area Deprivation Index Answer Date Doron rded National Score (1-100), lower number is lower ri sk 62 06/24/2023 State Score (1-10), lower number is lower risk 4 06/24/2023 Data from: https://www.neighborhoodatlas.medicine.[facility].edu/. Last address used for calculation [address] [facility] [...] on filedocumented in this encounter Care Teams Junior Net Developer Relationship Specialty Start Date End Date Leander Carrizales MD PCP - General Family Medicine 06/09/11 documented as of this encounter
--- OUTSIDE RECORDS SUMMARY | 2025-01-02 08:13 | XMS_ITS | Clinical Summary ---
Author Organization [facility] Address [address] [place] [address] Phone Care Team Providers Care Brick Stacker Name Role Phone Leander Carrizales MD Primary Care Provider [phone] Social History Tobacco Use Types Packs/Day Years Used Date Smoking Tobacco: Never Assessed Comments Unknown Sex and Gender Information Value Date Recorded Sex Assigned at Not on file Legal Sex Female 3:27 PM EST Gender Identity Not on file Sexual Orientation Not on file Plan of Treatment Not on file Care Teams Brick Stacker Relationship Specialty Start Date End Date Leander Carrizales MD [address] [place] [address] PCP - General 09/22/18
--- OUTSIDE RECORDS SUMMARY | 2025-01-02 08:13 | XMS_ITS | Encounter Summary ---
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 You will be contacted to schedule your appointment within 24 - 48 hours. If you are not contacted within this time frame please call the Spine Center at [phone] to schedule your appointment. Question Answer Reason for Referral: Back Pain [25] Encounter Details Date Type Department Care Team (Late st Contact Info) Description 12/29/2024 Transcribe Orders [facility] Physician Referral Service [address] [place] [address] Leander Carrizales MD [address] [place] [address] Social History Tobacco Use Types Packs/Day Years Used Date Smoking Tobacco: Never Assessed Comments Unknown Sex and Gender Information Value Date Recorded Sex Assigned at Not on file Legal Sex Female 3:05 PM EDT Gender Identity Not on file Sexual Orientation Not on file documented as of this encounter Plan of Treatment Scheduled Referrals Name Type Priority Associated Diagnoses Orde r Schedule SPINE CENTER CONSULT REQUEST Referral Routine 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
--- OUTSIDE RECORDS SUMMARY | 2025-01-02 08:13 | XMS_ITS | Encounter Summary ---
Author Organization [facility] Address [id number] [address] [place] [address] Care Team Providers Care Emergency Department Aide Name Role Phone Unavailable Primary Care Provider Unavailabl e Encounter Details Date Type Department Care Team (Late st Contact Info) Description 12/04/2022 Orders Only [facility] [address] [place] [address] External, Scanning Provider Social History Tobacco Use [...]
--- OUTSIDE RECORDS SUMMARY | 2025-01-02 08:13 | XMS_ITS | Clinical Summary ---
Author Organization [employer] Address [id number] [address] [place] [address] Care Team Providers Care Cooling Tower Technician Name Role Phone Unavailable Primary Care Provider [...] Devices Not on file Insurance [facility] MEDICARE
--- OUTSIDE RECORDS SUMMARY | 2025-01-02 08:13 | XMS_ITS | Encounter Summary ---
Author Organization [facility] [employer] Address [id number] [address] [place] [address] Care Team Providers Care Can Top Setter Name Role Phone Unavailable Primary Care Provider Unavailabl e Encounter Details Date Type Department Care Team (Late st Contact Info) Description 12/03/2022 Orders Only [facility] [address] [place] [address] External, Scanning Provider Social History Tobacco Use [...]
--- OUTSIDE RECORDS SUMMARY | 2025-01-02 08:13 | XMS_ITS | Clinical Summary ---
Author Organization [facility] Address [address] [place] [address] Care Team Providers Care System Auditor Name Role Phone Leander Carrizales MD Primary Care Provider [phone] Allergies Active Allergy Reactions Criticality Noted Date [...] Additional history exists COVID-19 VACCINE ( season) 2024 12/03/2021, 03/25/2021, 07/12/2020, Additional history exists INFLUENZA VACCINE (#1) 2024 , 02/08/2020, 02/23/2018, Additional history exists RSV VACCINE (1 - 1-dose 75+ series) 12/20/2026 PNEUMOCOCCAL VACCINE SERIES Completed 02/24/2017, 1 HEP B VACCINE Aged Out No longer damaso apple based on patient's age to complete this topic Insurance Medicare [employer] HMO PPO Care Teams System Auditor Relationship Specialty Start Date End Date Leander Carrizales MD PCP - General Family Medicine 04/09/22
--- OUTSIDE RECORDS SUMMARY | 2025-01-02 08:14 | XMS_ITS ---
Author Organization [facility] Care Team Providers Care Independent Marketing Consultant Name Role Phone Hortensia Eugene Unavailable Unavailable Lorenzo Ellis Unavailable Unavailable Leo Soria Unavailable Unavailable Aidan, Lorena Unavailable Unavailable McNall-Vanita, Lucinda L Unavailable Unavailable DeNicola, Harshil Unavailable Unavailable Munjapara, Valdominga Unavailable Unavailable Tressa Polk Unavailable Unavailabl e Allergies and adverse reactions Code CodeSystem Substance Reaction Severity StartDate Concern Status 856265647 SNOMED CT Sulfa Antibiotics Unknown 06/18/2017 active Care Team Name Role Address Phone Organization Dates Praveen Lopez PCP [address], [place], [place], [facility], [place] (Office): : : [facility] 06/19/2017 - 06/20/2017 Hortensia Eugene [place] [address] [address] [place], [place], [facility], [facility] (Office): : [facility] 06/19/2017 - 06/20/2017 Lorenzo Perse [place] [address] [address], [address], [place] (Office): : : [facility] 06/19/2017 - 06/20/2017 Leo Pandyarley [address] [place], [address], [place] (Office): [facility] 06/19/2017 - 06/20/2017 Lorena Aidan [place] [facility] [address] [place], [place], [facility], [facility] (Office): : [facility] 06/19/2017 - 06/20/2017 Lucinda Khan [address] [place] [address], [place], [place], [facility], [facility] (Office): : [facility] 06/19/2017 - 06/20/2017 [facility] [address] [facility] [address], [facility], [facility] (Office): : [facility] 06/19/2017 - 06/20/2017 Tressa Polk [address] [address] [place] [address], [place], [place], [facility], [place] (Office): : [facility] 06/19/2017 - 06/20/2017 Immunizations Immunization Status [...] completed tuberculin skin test; unspecified formulation lotNumber: [id number] expiry: 11/18/2018 Given 0.1 ml Left Forearm [...] 1 GASTRO-ESOPHAGEAL REFLUX DISEASE WITHOUT ESOPHAGITIS 06/20/[address] active 2 UNSPECIFIED OSTEOARTHRITIS, UNSPECIFIED SITE 06/20/[address] active 3 ACQUIRED ABSENCE OF OTHER SPECIFIED PARTS OF DIGESTIVE TRACT 06/18/[address] active 4 CONSTIPATION, UNSPECIFIED 06/18/[address] active 5 DORSALGIA, UNSPECIFIED 06/18/[address] active 6 ENCOUNTER FOR OTHER ORTHOPEDIC AFTERCARE 06/18/[address] active 7 ESSENTIAL (PRIMARY) HYPERTENSION 06/18/[address] active 8 HYPERLIPIDEMIA, UNSPECIFIED 06/18/[address] active 9 HYPOTHYROIDISM, UNSPECIFIED 06/18/[address] active 10 MUSCLE WEAKNESS (GENERALIZED) 06/18/[address] active 11 OBESITY, UNSPECIFIED 06/18/[address] active 12 OVERACTIVE BLADDER 06/18/2017 [address]38[address]19 SNOM[address] C T active 13 PRESENCE OF LEFT ARTIFICIAL HIP JOINT 06/18/[address] active 14 RADICULOPATHY, LUMBAR REGION 06/18/[address] active 15 SPONDYLOSIS WITHOUT MYELOPATHY OR RADICULOPATHY, LUMBAR REGION 06/18/[address] active Reason for Referral No Reasons for Referral Entered Social History Social History Observation Description Start Date End Date Code Code System Current Smoking Status Tobacco smoking consumption unknown 229436793 SNOMED CT Sex Assigned At Female 1950 75351-0 LOINC Gender Identity Sexual Orientation Vital Signs Code Code System Vitals Name Values and Units Timing Information 05680-4 LOINC Pain Level Value=0.0 06/20/2017 9279-1 [facility] Respiratory Rate Value=20.0 Units=/m in 06/20/2017 8462-4 [facility] Blood Pressure-Diastolic Value=78 Un its=mmHg 06/20/2017 8480-6 [facility] Blood Pressure-Systolic Lwwxo=069 Un its=mmHg 06/20/2017 8310-5 [facility] Body Temperature Value=98.1 Units= F 06/20/2017 8867-4 [facility] Heart rate Value=90.0 Units=/min 06/2017 96831-5 [facility] O2 % BldC Oximetry Value=99.0 Units= % 06/20/2017 8302-2 [facility] Height Value=69.0 Units=Inches 06/19/2017 81799-4 [facility] Weight Eztyi=526.6 Units=Lbs 05/2017
--- OUTSIDE RECORDS SUMMARY | 2025-01-02 08:14 | XMS_ITS | Clinical Summary ---
Author Organization [facility] Address [address] [place], [place] [address] Care Team Providers Care Childhood Teacher Name Role Phone Leander Carrizales MD Primary Care Provider [phone] Allergies Active Allergy Reactions Criticality Noted Date [...] is lower risk 4 06/24/2023 Data from: https://www.neighborhoodatlas.medicine.[facility].edu/. Last address used for calculation 60 [...] Hep B Core Ab, Total Negative NEGAT [facility] Hep C Antibody IA Negative NEGAT [facility] HBsAg Negative NEGAT [facility] Hep B Surface Ab, Qual Negative NEGAT [facility] Comment: A negative Hepatitis [...] Daniele Renae MD LABORATORY Final Resul t [facility] [address] [place] [address] * COMP METABOLIC PANEL (06/18/2011 1:49 PM EST) Protein, Total 7.4 6.0 - 8.4 g/dL [facility] Albumin 4.1 3.5 - 5.0 g/dL [facility] Calcium 9.4 8.5 - 10.5 mg/dL [facility] Bilirubin, Total 0.2 0.0 - 1.5 mg/dL [facility] Alkaline Phosphatase 75 40 - 150 U/L [facility] AST 23 7 - 40 U/L [facility] Glucose 90 65 - 100 mg/dL [facility] BUN 12 8 - 25 mg/dL [facility] Creatinine 0.80 0.70 - 1.40 mg/dL [facility] Sodium 140 132 - 148 mmol/L [facility] Potassium 3.9 3.5 - 5.0 mmol/L [facility] Chloride 106 98 - 110 mmol/L [facility] CO2 25 23 - 32 mmol/L [facility] Anion Gap 9 0 - 15 mmol/L [facility] ALT 16 0 - 45 U/L [facility] eGFR- >60 [facility] eGFR-All Other Races >60 . [facility] Comment: eGFR (Estimated GFR) Units of [...] EST us Rey Mejia LABORATORY Final Result [facility] [address] [place] [address] from Last 3 Months or Most Recently Relevant to Health Maintenance Insurance [facility] MEDICARE Care Teams Childhood Teacher Relationship Specialty Start Date End Date Leander Carrizales MD PCP - General Family Medicine 06/09/11
--- OUTSIDE RECORDS SUMMARY | 2025-01-02 08:14 | XMS_ITS | Patient Health Record ---
Author Organization [employer] es Address [address] [place] [address] Care Team Providers Care Private Branch Exchange Service Advisor Name Role Phone Dr. Uziel Kenny Primary Care Provider Reason For Referral No Information Plan Of Treatment No Information Insurance Providers Payer Name Payer Address Payer Phone Subscriber Number Group Number Insured Name Patient Relationship to Insured Coverage Start Date Coverage End Date [employer] MED[employer]ARE PLAN [address] [address] [place] [phone] [id number] KENAN CHASE Self - patient is the insured 2 DENTAL [employer] MEDICARE [address] [address] [place] [address] [id number] KENAN CHASE Self - patient is the insured 2
--- OUTSIDE RECORDS SUMMARY | 2025-01-02 08:15 | XMS_ITS | Clinical Summary ---
Author Organization [facility] Address [address] [place] [address] Care Team Providers Care Stove Installer Name Role Phone Leander Carrizales MD Primary Care Provider [phone] Allergies Active Allergy Reactions Criticality Noted Date [...] Guide test strip 3 Active HYDROcodone-jonnie taminophen ([place]) 5-325 MG tablet TAKE 1 TABLET BY [...] [address] [place] [address] 07/03/2025 10:30 AM EDT Office Visit [facility] [address] [facility] [place] [address] [place] [id number] Brianna Barrios, [address] [facility] [address] [place] [id number] Health Maintenance Due Date Last Done Comments [...] IS VERY IMPORTANT TO YOUR HEALTH. THE [employer] GUIDELINES RECOMMEND THAT WOMEN 40 [...] Maintenance Insurance [employer] MEDICARE ADVANTAGE Care Teams Stove Installer Relationship Specialty Start Date End Date Leander Carrizales MD [address] [place] [id number] PCP - General Family Medicine 06/11/23
--- OUTSIDE RECORDS SUMMARY | 2025-01-02 08:15 | XMS_ITS | Patient Health Record ---
Author Organization [facility] [place] Address [address] [place] [address] Care Team Providers Care Life Consultant Name Role Phone Nixon Carrizales Primary Care Provider Kingston Dash Unavailable [phone] Inderjit Deepali Unavailable [phone] Trisha Mcneil Unavailable [phone] Allergies Allergen (clinical drug ingredient) Drug/Non Drug [...] UROBILINOGEN neg NITRITE neg LEUKOCYTE ESTERASE trace Occult Blood* Reviewed date:12/07/2024 12:58:25 PM Interpretation: Performing Lab: Notes/Report: [facility] , Occult Blood Positive Performing Lab: see note ML - [facility] LB XR chest 2V Reviewed date:12/20/2024 10:47:37 PM Interpretation: Performing Lab: Notes/Report: Source Facility: [id number] [place] [address] XRay Report Signed Patient: LEELEE CEDILLO MR#: [id number] : 1950 Acct:[id number] Age/Sex: 74 / F ADM Date: 12/20/24 Loc: RAD Attending Dr: Sara Carrizales M.D. Ordering Physician: Sara Carrizales M.D. Date of Service: 12/20/24 Procedure(s): XR chest 2V Accession Number(s): [id number] cc: Sara Carrizales M.D. [place] [address] Patient Name: LEELEE CEDILLO MRN: [id number] date: 1950 Sex: F Assigned Patient Location: [facility] Current Patient Location: [facility] Accession/Order Number: [id number] Exam Date: 12/20/2024 12:26 Report Date: 12/20/2024 [...] Loredo M.D. 12/20/2024 12:56 PM Dictation Location: [place] [address] Electronically authenticated by: [id number] Y Date: 12/20/2024 12:56 Dictated By: Ina Loredo M.D. Signed By: 12/20/24 1259 DD/ 1256 TD/TT: Informatica: XR lumbar spine min 4V Reviewed date:12/20/2024 10:47:37 PM Interpretation: Performing Lab: Notes/Report: Source Facility: [place] [address] [place] [address] XRay Report Signed Patient: LEELEE CEDILLO MR#: [id number] : 1950 Acct:[id number] Age/Sex: 74 / F ADM Date: 12/20/24 Loc: RAD Attending Dr: Sara Carrizales M.D. Ordering Physician: Sara Carrizales M.D. Date of Service: 12/20/24 Procedure(s): XR lumbar spine min 4V Accession Number(s): [id number] cc: Sara Carrizales M.D. [place] [address] Patient Name: LEELEE CEDILLO MRN: [facility]:[id number] date: 1950 Sex: F Assigned Patient Location: [facility] Current Patient Location: [facility] Accession/Order Number: [id number] Exam Date: 12/20/2024 12:26 Report Date: 12/20/2024 [...] Loredo M.D. 12/20/2024 12:56 PM Dictation Location: [place] [address] Electronically authenticated by: [id number] Y Date: 12/20/2024 12:56 Dictated By: Ina Loredo M.D. Signed By: 12/20/24 1259 DD/ 1256 TD/TT: Informatica: XR hip BI w PEL 1V Reviewed date:12/20/2024 10:47:37 PM Interpretation: Performing Lab: Notes/Report: Source Facility: [place] [address] XRay Report Signed Patient: LEELEE CEDILLO MR#: [id number] : 1950 Acct:[id number] Age/Sex: 74 / F ADM Date: 12/20/24 Loc: RAD Attending Dr: Sara Carrizales M.D. Ordering Physician: Sara Carrizales M.D. Date of Service: 12/20/24 Procedure(s): XR hip BI w PEL 1V Accession Number(s): [id number] cc: Sara Carrizales M.D. [place] [address] Patient Name: LEELEE CEDILLO MRN: [id number] date: 1950 Sex: F Assigned Patient Location: [facility] Current Patient Location: [facility] Accession/Order Number: [id number] Exam Date: 12/20/2024 12:26 Report Date: 12/20/2024 [...] Loredo M.D. 12/20/2024 12:56 PM Dictation Location: [place] [address] Electronically authenticated by: [id number] Y Date: 12/20/2024 12:56 Dictated By: Ina Loredo M.D. Signed By: 12/20/24 1259 DD/ 1256 TD/TT: Informatica: [place] [facility] [place]ed date:12/12/2024 03:54:27 PM Interpretation: Performing Lab: Notes/Report: [facility] [place] [facility] See Below For Report [place] [facility] Organism Comments Isolated Organism: 1.2 Antibiotic Interpretation BEATRIZ Status [place] [facility] Organism: 1.1 Testing performed at [facility] [place] [facility] Organism Comments O:ESCCOL O:MRSA Isolated Antibiotic Interpretation BEATRIZ Status [place]rine Culture [place] [facility] [address] [place] [address] Urine Culture - [facility] Organism Comments Isolated Organism: 1.2 Antibiotic Interpretation BEATRIZ Status Urine Culture - [facility] Organism: 1.1 Testing performed at [facility] Urine Culture - [facility] Organism Comments O:ESCCOL O:MRSA Isolated Antibiotic Interpretation BEATRIZ Status Urine Culture - [facility] See Below For Report Urine Culture - [facility] Organism Comments Isolated Organism: 1.2 Antibiotic Interpretation BEATRIZ Status Urine Culture - [facility] Organism: 1.1 Testing performed at [facility] Urine Culture - [facility] Organism Comments O:ESCCOL O:MRSA Isolated Antibiotic Interpretation BEATRZI Status Urine Culture - [facility] See Below For Report Urine Culture - [facility] Organism Comments Isolated Organism: 1.2 Antibiotic Interpretation BEATRIZ Status Urine Culture - [facility] Organism: 1.1 Testing performed at [facility] Urine Culture - [facility] Organism Comments O:ESCCOL O:MRSA Isolated Antibiotic Interpretation BEATRIZ Status Urine Culture - [facility] 15,000 CFU/ML Urine Culture - [facility] Organism Comments Isolated Organism: 1.2 Antibiotic Interpretation BEATRIZ Status Urine Culture - [facility] Organism: 1.1 Testing performed at [facility] Urine Culture - [facility] Organism Comments O:ESCCOL O:MRSA Isolated Antibiotic Interpretation BEATRIZ Status Urine Culture - [facility] See Below For Report Urine Culture - [facility] Organism Comments Isolated Organism: 1.2 Antibiotic Interpretation BEATRIZ Status Urine Culture - [facility] Organism: 1.1 Testing performed at [facility] Urine Culture - [facility] Organism Comments O:ESCCOL O:MRSA Isolated Antibiotic Interpretation BEATRIZ Status Urine Culture - [facility] See Below For Report Urine Culture - [facility] Organism Comments Isolated Organism: 1.2 Antibiotic Interpretation BEATRIZ Status Urine Culture - [facility] Organism: 1.1 Testing performed at [facility] Urine Culture - [facility] Organism Comments O:ESCCOL O:MRSA Isolated Antibiotic Interpretation BEATRIZ Status Urine Culture - [facility] 75,000 CFU/ML Urine Culture - [facility] Organism Comments Isolated Organism: 1.2 Antibiotic Interpretation BEATRIZ Status Urine Culture - [facility] Organism: 1.1 Testing performed at [facility] Urine Culture - [facility] Organism Comments O:ESCCOL O:MRSA Isolated Antibiotic Interpretation BEATRIZ Status Urine Culture - [facility] See Below For Report Urine Culture - [facility] Organism Comments Isolated Organism: 1.2 Antibiotic Interpretation BEATRIZ Status Urine Culture - [facility] Organism: 1.1 Testing performed at [facility] Urine Culture - [facility] Organism Comments O:ESCCOL O:MRSA Isolated Antibiotic Interpretation BEATRIZ Status Urine Culture - [facility] Amikacin S F Urine Culture - [facility] Organism Comments Isolated Organism: 1.2 Antibiotic Interpretation BEATRIZ Status Urine Culture - [facility] Organism: 1.1 Testing performed at [facility] Urine Culture - [facility] Organism Comments O:ESCCOL O:MRSA Isolated Antibiotic Interpretation BEATRIZ Status Urine Culture - [facility] Amoxicillin/Clavula remedios e S F Urine Culture - [facility] Organism Comments Isolated Organism: 1.2 Antibiotic Interpretation BEATRIZ Status Urine Culture - [facility] Organism: 1.1 Testing performed at [facility] Urine Culture - [facility] Organism Comments O:ESCCOL O:MRSA Isolated Antibiotic Interpretation BEATRIZ Status Urine Culture - [facility] Ampicillin S F Urine Culture - [facility] Organism Comments Isolated Organism: 1.2 Antibiotic Interpretation BEATRIZ Status Urine Culture - [facility] Organism: 1.1 Testing performed at [facility] Urine Culture - [facility] Organism Comments O:ESCCOL O:MRSA Isolated Antibiotic Interpretation BEATRIZ Status Urine Culture - [facility] Aztreonam S F Urine Culture - [facility] Organism Comments Isolated Organism: 1.2 Antibiotic Interpretation BEATRIZ Status Urine Culture - [facility] Organism: 1.1 Testing performed at [facility] Urine Culture - [facility] Organism Comments O:ESCCOL O:MRSA Isolated Antibiotic Interpretation BEATRIZ Status Urine Culture - [facility] Ceftazidime S F Urine Culture - [facility] Organism Comments Isolated Organism: 1.2 Antibiotic Interpretation BEATRIZ Status Urine Culture - [facility] Organism: 1.1 Testing performed at [facility] Urine Culture - [facility] Organism Comments O:ESCCOL O:MRSA Isolated Antibiotic Interpretation BEATRIZ Status Urine Culture - [facility] Ceftazidime/Avibact am S F Urine Culture - [facility] Organism Comments Isolated Organism: 1.2 Antibiotic Interpretation BEATRIZ Status Urine Culture - [facility] Organism: 1.1 Testing performed at [facility] Urine Culture - [facility] Organism Comments O:ESCCOL O:MRSA Isolated Antibiotic Interpretation BEATRIZ Status Urine Culture - [facility] Ceftolozane/Tazobac bansal S F Urine Culture - [facility] Organism Comments Isolated Organism: 1.2 Antibiotic Interpretation BEATRIZ Status Urine Culture - [facility] Organism: 1.1 Testing performed at [facility] Urine Culture - [facility] Organism Comments O:ESCCOL O:MRSA Isolated Antibiotic Interpretation BEATRIZ Status Urine Culture - [facility] Ciprofloxacin R F Urine Culture - [facility] Organism Comments Isolated Organism: 1.2 Antibiotic Interpretation BEATRIZ Status Urine Culture - [facility] Organism: 1.1 Testing performed at [facility] Urine Culture - [facility] Organism Comments O:ESCCOL O:MRSA Isolated Antibiotic Interpretation BEATRIZ Status Urine Culture - [facility] Ertapenem S F Urine Culture - [facility] Organism Comments Isolated Organism: 1.2 Antibiotic Interpretation BEATRIZ Status Urine Culture - [facility] Organism: 1.1 Testing performed at [facility] Urine Culture - [facility] Organism Comments O:ESCCOL O:MRSA Isolated Antibiotic Interpretation BEATRIZ Status Urine Culture - [facility] Gentamicin S F Urine Culture - [facility] Organism Comments Isolated Organism: 1.2 Antibiotic Interpretation BEATRIZ Status Urine Culture - [facility] Organism: 1.1 Testing performed at [facility] Urine Culture - [facility] Organism Comments O:ESCCOL O:MRSA Isolated Antibiotic Interpretation BEATRIZ Status Urine Culture - [facility] Levofloxacin R F Urine Culture - [facility] Organism Comments Isolated Organism: 1.2 Antibiotic Interpretation BEATRIZ Status Urine Culture - [facility] Organism: 1.1 Testing performed at [facility] Urine Culture - [facility] Organism Comments O:ESCCOL O:MRSA Isolated Antibiotic Interpretation BEATRIZ Status Urine Culture - [facility] Meropenem S F Urine Culture - [facility] Organism Comments Isolated Organism: 1.2 Antibiotic Interpretation BEATRIZ Status Urine Culture - [facility] Organism: 1.1 Testing performed at [facility] Urine Culture - [facility] Organism Comments O:ESCCOL O:MRSA Isolated Antibiotic Interpretation BEATRIZ Status Urine Culture - [facility] Meropenem/Vaborbact am S F Urine Culture - [facility] Organism Comments Isolated Organism: 1.2 Antibiotic Interpretation BEATRIZ Status Urine Culture - [facility] Organism: 1.1 Testing performed at [facility] Urine Culture - [facility] Organism Comments O:ESCCOL O:MRSA Isolated Antibiotic Interpretation BEATRIZ Status Urine Culture - [facility] Nitrofurantoin S F Urine Culture - [facility] Organism Comments Isolated Organism: 1.2 Antibiotic Interpretation BEATRIZ Status Urine Culture - [facility] Organism: 1.1 Testing performed at [facility] Urine Culture - [facility] Organism Comments O:ESCCOL O:MRSA Isolated Antibiotic Interpretation BEATRIZ Status Urine Culture - [facility] Tetracycline S F Urine Culture - [facility] Organism Comments Isolated Organism: 1.2 Antibiotic Interpretation BEATRIZ Status Urine Culture - [facility] Organism: 1.1 Testing performed at [facility] Urine Culture - [facility] Organism Comments O:ESCCOL O:MRSA Isolated Antibiotic Interpretation BEATRIZ Status Urine Culture - [facility] Tigecycline S F Urine Culture - [facility] Organism Comments Isolated Organism: 1.2 Antibiotic Interpretation BEATRIZ Status Urine Culture - [facility] Organism: 1.1 Testing performed at [facility] Urine Culture - [facility] Organism Comments O:ESCCOL O:MRSA Isolated Antibiotic Interpretation BEATRIZ Status Urine Culture - [facility] Tobramycin S F Urine Culture - [facility] Organism Comments Isolated Organism: 1.2 Antibiotic Interpretation BEATRIZ Status Urine Culture - [facility] Organism: 1.1 Testing performed at [facility] Urine Culture - [facility] Organism Comments O:ESCCOL O:MRSA Isolated Antibiotic Interpretation BEATRIZ Status Urine Culture - [facility] Ampicillin/Sulbacta m S F Urine Culture - [facility] Organism Comments Isolated Organism: 1.2 Antibiotic Interpretation BEATRIZ Status Urine Culture - [facility] Organism: 1.1 Testing performed at [facility] Urine Culture - [facility] Organism Comments O:ESCCOL O:MRSA Isolated Antibiotic Interpretation BEATRIZ Status Urine Culture - [facility] Cefazolin S F Urine Culture - [facility] Organism Comments Isolated Organism: 1.2 Antibiotic Interpretation BEATRIZ Status Urine Culture - [facility] Organism: 1.1 Testing performed at [facility] Urine Culture - [facility] Organism Comments O:ESCCOL O:MRSA Isolated Antibiotic Interpretation BEATRIZ Status Urine Culture - [facility] Cefepime S F Urine Culture - [facility] Organism Comments Isolated Organism: 1.2 Antibiotic Interpretation BEATRIZ Status Urine Culture - [facility] Organism: 1.1 Testing performed at [facility] Urine Culture - [facility] Organism Comments O:ESCCOL O:MRSA Isolated Antibiotic Interpretation BEATRIZ Status Urine Culture - [facility] Ceftriaxone S F Urine Culture - [facility] Organism Comments Isolated Organism: 1.2 Antibiotic Interpretation BEATRIZ Status Urine Culture - [facility] Organism: 1.1 Testing performed at [facility] Urine Culture - [facility] Organism Comments O:ESCCOL O:MRSA Isolated Antibiotic Interpretation BEATRIZ Status Urine Culture - [facility] Cefuroxime I F Urine Culture - [facility] Organism Comments Isolated Organism: 1.2 Antibiotic Interpretation BEATRIZ Status Urine Culture - [facility] Organism: 1.1 Testing performed at [facility] Urine Culture - [facility] Organism Comments O:ESCCOL O:MRSA Isolated Antibiotic Interpretation BEATRIZ Status Urine Culture - [facility] Piperacillin/Tazoba cta m S F Urine Culture - [facility] Organism Comments Isolated Organism: 1.2 Antibiotic Interpretation BEATRIZ Status Urine Culture - [facility] Organism: 1.1 Testing performed at [facility] Urine Culture - [facility] Organism Comments O:ESCCOL O:MRSA Isolated Antibiotic Interpretation BEATRIZ Status Urine Culture - [facility] Trimethoprim/Sulfa S F Urine Culture - [facility] Organism Comments Isolated Organism: 1.2 Antibiotic Interpretation BEATRIZ Status Urine Culture - [facility] Organism: 1.1 Testing performed at [facility] Urine Culture - [facility] Organism Comments O:ESCCOL O:MRSA Isolated Antibiotic Interpretation BEATRIZ Status Urine Culture - [facility] See Below For Report Urine Culture - [facility] Organism Comments Isolated Organism: 1.2 Antibiotic Interpretation BEATRIZ Status Urine Culture - [facility] Organism: 1.1 Testing performed at [facility] Urine Culture - [facility] Organism Comments O:ESCCOL O:MRSA Isolated Antibiotic Interpretation BEATRIZ Status Urine Culture - [facility] Daptomycin S F Urine Culture - [facility] Organism Comments Isolated Organism: 1.2 Antibiotic Interpretation BEATRIZ Status Urine Culture - [facility] Organism: 1.1 Testing performed at [facility] Urine Culture - [facility] Organism Comments O:ESCCOL O:MRSA Isolated Antibiotic Interpretation BEATRIZ Status Urine Culture - [facility] Linezolid S F Urine Culture - [facility] Organism Comments Isolated Organism: 1.2 Antibiotic Interpretation BEATRIZ Status Urine Culture - [facility] Organism: 1.1 Testing performed at [facility] Urine Culture - [facility] Organism Comments O:ESCCOL O:MRSA Isolated Antibiotic Interpretation BEATRIZ Status Urine Culture - [facility] Nitrofurantoin S F Urine Culture - [facility] Organism Comments Isolated Organism: 1.2 Antibiotic Interpretation BEATRIZ Status Urine Culture - [facility] Organism: 1.1 Testing performed at [facility] Urine Culture - [facility] Organism Comments O:ESCCOL O:MRSA Isolated Antibiotic Interpretation BEATRIZ Status Urine Culture - [facility] Oxacillin Beatriz R F Urine Culture - [facility] Organism Comments Isolated Organism: 1.2 Antibiotic Interpretation BEATRIZ Status Urine Culture - [facility] Organism: 1.1 Testing performed at [facility] Urine Culture - [facility] Organism Comments O:ESCCOL O:MRSA Isolated Antibiotic Interpretation BEATRIZ Status Urine Culture - [facility] Penicillin R F Urine Culture - [facility] Organism Comments Isolated Organism: 1.2 Antibiotic Interpretation BEATRIZ Status Urine Culture - [facility] Organism: 1.1 Testing performed at [facility] Urine Culture - [facility] Organism Comments O:ESCCOL O:MRSA Isolated Antibiotic Interpretation BEATRIZ Status Urine Culture - [facility] Tetracycline S F Urine Culture - [facility] Organism Comments Isolated Organism: 1.2 Antibiotic Interpretation BEATRIZ Status Urine Culture - [facility] Organism: 1.1 Testing performed at [facility] Urine Culture - [facility] Organism Comments O:ESCCOL O:MRSA Isolated Antibiotic Interpretation BEATRIZ Status Urine Culture - [facility] Vancomycin S F Urine Culture - [facility] Organism Comments Isolated Organism: 1.2 Antibiotic Interpretation BEATRIZ Status Urine Culture - [facility] Organism: 1.1 Testing performed at [facility] Urine Culture - [facility] Organism Comments O:ESCCOL O:MRSA Isolated Antibiotic Interpretation BEATRIZ Status Urine Culture - [facility] Ceftaroline S F Urine Culture - [facility] Organism Comments Isolated Organism: 1.2 Antibiotic Interpretation BEATRIZ Status Urine Culture - [facility] Organism: 1.1 Testing performed at [facility] Urine Culture - [facility] Organism Comments O:ESCCOL O:MRSA Isolated Antibiotic Interpretation BEATRIZ Status Urine Culture - [facility] Trimethoprim/Sulfa S F Urine Culture - [facility] Organism Comments Isolated Organism: 1.2 Antibiotic Interpretation BEATRIZ Status Urine Culture - [facility] Organism: 1.1 Testing performed at [facility] Urine Culture - [facility] Organism Comments O:ESCCOL O:MRSA Isolated Antibiotic Interpretation BEATRIZ Status Performing Lab: see note [facility] SEE REPORT - Agriculture Instructor Id information not found for OBX-specific licensed sales producer legend UA RANDOM W or MICROSCOPIC Reviewed date:12/09/2024 12:54:35 PM Interpretation: Performing Lab: Notes/Report: [facility] , Color Urine LT. YELLOW YELLOW Clarity Urine CLEAR CLEAR Specific [place] Urine 1.015 1.005-1.025 pH Urine 6.0 5.0-9.0 [...] SEEN #/LPF Performing Lab: see note - [facility] LB Prothrombin Time INR Reviewed date:10/12/2024 09:00:49 PM Interpretation: Performing Lab: Notes/Report: [facility] , Prothrombin Time 10.3 9.0-11.6 sec INR 0.97 2.5-3.5 FOR PROSTHETIC HEART VALVE REPLACEMENT 2.0-3.0 CONDITIONS NOT LISTED BELOW 2.5-3.5 RECURRENT THROMBOSIS DESIRED INR: Performing Lab: see note ML - [facility] VITAMIN D 25 [place] Reviewed date:10/12/2024 09:00:49 PM Interpretation: Performing Lab: Notes/Report: [facility] , Vitamin D 35.0 >100 ng/mL Potential Toxicity <20 ng/mL Vit D deficient 20-<30 ng/mL Vit D insufficient 30-100 ng/mL Vit D sufficient Performing Lab: see note ML - [facility] LB TSH Reviewed date:10/12/2024 09:00:49 PM Interpretation: Performing Lab: Notes/Report: [facility] , Thyroid Stimulating Hormone 0.581 0.358-3.740 uIU/mL Performing Lab: see note - [facility] LB T4 Reviewed date:10/12/2024 09:00:49 PM Interpretation: Performing Lab: Notes/Report: [facility] , T4 Thyroxine 11.10 4.80-13.90 ug/dL Performing Lab: see note - [facility] LB PROF 14(COMP METB) Reviewed date:10/12/2024 09:00:49 PM Interpretation: Performing Lab: Notes/Report: [facility] , Sodium 141 136-145 mmol/L Potassium [...] 0.8 Performing Lab: see note ML - [facility] LB LIPID PROFILE Reviewed date:10/12/2024 09:00:49 PM Interpretation: Performing Lab: Notes/Report: [facility] , Triglycerides 62 <=150 mg/dL Cholesterol [...] RISK Performing Lab: see note ML - [facility] IRON Reviewed date:10/12/2024 09:00:49 PM Interpretation: Performing Lab: Notes/Report: [facility] , Iron 99.0 50.0-170.0 ug/dL Performing Lab: see note ML - [facility] LB GLYCOHEMOGLOBIN A1C Reviewed date:10/12/2024 09:00:49 PM Interpretation: Performing Lab: Notes/Report: [facility] , Glycohemoglobin A1C 5.3 4.5-6.2 % > 7.0 ADA RECOMMENDED LIMIT 4.0 - 6.0 ADA THERAPEUTIC TARGET < 7.0 ACTION SUGGESTED Estimated Average Glucose 105 Performing Lab: see note ML - [facility] FREE T3 Reviewed date:10/12/2024 09:00:49 PM Interpretation: Performing Lab: Notes/Report: [facility] , Free T3 2.10 2.18-3.98 pg/mL Performing Lab: see note ML - [facility] CBC AUTO DIFF Reviewed date:10/12/2024 09:00:49 PM Interpretation: Performing Lab: Notes/Report: [facility] , White Blood Count 8.6 4.0-11.0 [...] 3/uL Performing Lab: see note ML - [facility] LB Urine Culture, Routine Reviewed date:02/16/2024 08:18:49 PM Interpretation: Performing Lab: Notes/Report: [facility] , Urine Culture, Routine See Below For Report Urine Culture, Routine Urine Culture, Routine Mixed urogenital camilo Urine Culture, Routine Urine Culture, Routine Less than 10,000 colonies/mL Urine Culture, Routine Urine Culture, Routine Performed at: [facility], Routine Urine Culture, Routine [address] [place], [place] [id number] Urine Culture, Routine Urine Culture, Routine Grid Operator: Gael Marquez PhD, Phone: [phone] Urine Culture, Routine Performing Lab: see note LC - [facility] LB SEE REPORT - Agriculture Instructor Id information not found for OBX-specific licensed sales producer legend Vitamin B12 Reviewed date:02/16/2024 08:08:35 PM Interpretation: Performing Lab: Notes/Report: [facility] , Vitamin B12 [phone] pg/mL Performed at: [facility] [address] [id number] Grid Operator: Dwayne Marquez PhD, Phone: [phone] Performing Lab: see note - [facility] LB UA RANDOM Reviewed date:02/16/2024 08:18:57 PM Interpretation: Performing Lab: Notes/Report: [facility] , Color Urine LT. YELLOW YELLOW Clarity Urine CLEAR CLEAR Specific [place] Urine 1.010 1.005-1.025 pH Urine 6.0 5.0-9.0 Protein Urine NEGATIVE NEG/TRACE mg/dL Glucose Urine UA NEGATIVE NEGATIVE mg/dL Bilirubin Urine NEGATIVE NEGATIVE Ketones Urine NEGATIVE NEGATIVE mg/dL Blood Urine TRACE-I NEGATIVE Nitrite Urine NEGATIVE NEGATIVE Urobilinogen Urine 0.2 0.2-1.0 EU/dL Leukocyte Esterase Urine MODERATE NEGATIVE Performing Lab: see note ML - [facility] LB FOLATE Reviewed date:02/15/2024 10:02:35 PM Interpretation: Performing Lab: Notes/Report: [facility] , Folate 16.30 8.60-58.90 ng/mL Performing Lab: see note ML - [facility] LB UA DIP NONAUTO WO MICRO ([phone]) - IN OFFICE Reviewed date:12/09/2024 12:39:28 PM Interpretation: Performing Lab: Notes/Report: COLOR yellow CLARITY clear GLUCOSE n BILIRUBIN n KETONE n SPECIFIC GRAVITY 1.010 BLOOD +++ PH 6 PROTEIN 15 UROBILINOGEN n NITRITE n LEUKOCYTE ESTERASE 500++ PTT Reviewed date:10/12/2024 09:00:49 PM Interpretation: Performing Lab: Notes/Report: [facility] , Partial Thromboplastin Time 25.9 22.3-36.2 sec Performing Lab: see note ML - [facility] UA DIP NONAUTO WO MICRO ([phone]) [...] disc displacement, lumbar region (M51.26) Referral Organization [facility] Referring Provider First Name Nixon Referring Provider Last Name All Referring Provider [facility] Referred Provider Genet Morris Referred Provider Specialty Neurological Surgery Referral Priority Routine Reason + FH also Diagnosis 1 Blood in stool (K92. 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) Diagnosis 2 DJD (degenerative diana int disease) (M19.90) Referral Organization [facility] Referring Provider First Name Nixon Referring Provider Last Name Jasvircarolina Referring Provider [facility] Referred Provider Specialty Orthopedic S urgery Referral Priority Routine Medications Medication SIG (Take, Route, Frequency, Duration) Notes Start Date End Date Status Triamcinolone Acetonide 0.1 % 1 application Externally bid 11/28/2024 Active Baclofen 20 MG 1 tab Orally qhs 11/21/2024 Active Vitamin D3 50 MCG (1999 UT) 1 capsule Or ally Once a day; Duration: 30 day(s) Active Cyanocobalamin 1000 MCG/ML INJECT 1ML IN TO THE MUSCLE EVERY MONTH; Duration: 90 Active Doxycycline Monohydrate 100 MG 1 tablet [...] 1 TABLET EVERY DAY; Duration: 90 Active Accu-Chek FastClix Lancets - TEST BLOOD SUGAR EVERY DAY; Duration: 90 Active [place] & Syringes use for monthly b12 injections; Duration: 365 days 23G x 1 3ml syringe 08/16/2024 Active Alendronate Sodium 70 MG TAKE 1 TABLET E VERY WEEK; Duration: 84 Active Pantoprazole Sodium 40 MG TAKE 1 TABLET EVERY DAY; Duration: 90 Active ALPRAZolam 0.25 MG 1 tablet Orally Twice a day; Duration: 30 days F41,9 10/11/2024 Active Rollator 1 rollator to safely complete ADLs DX M51.36; Duration: 365 days 10/11/2024 Active Amoxicillin-Pot Clavulanate 875-125 MG 1 tablet Orally every 12 hrs; Duration: 10 days 12/20/2024 Active Immunizations Vaccine Route Administration Date Status Comme nts Flu, Fluad (63409) 65 yrs and older, single-dose syringe () IM Intramuscular 03/25/2024 Administered Flu, Fluad (90583) 65 yrs+, single-dose syringe (4183-5716) IM Intramuscular 01/20/2023 Administered Tdap (Adacel) IM [...] Problem Status W/U Status Risk Notes Problem Acute bronchitis (73721644) Acute bronchitis (466.0) Active confirmed Problem Syncope and collapse (747055635) Syncope and collapse (R55) Active confirmed Problem Peripheral vertigo (61448504) Other peripheral vertigo, unspecified ear (H81.399) Active confirmed Problem Cerebral ischemia (010301293) Cerebral ischemia (I67.82) Active confirmed Problem Disorder of circulatory system (89903593) Other disorder of circulatory system (I99.8) Active confirmed Problem Unstageable pressure injury of right ankle (disorder) (73019723588600396) Pressure ulcer of right ankle, unspecified stage (L89.519) Active confirmed Problem Displacement of lumbar intervertebral disc without myelopathy (09501071) Other intervertebral disc displacement, lumbar region (M51.26) Active confirmed Problem Spasm of back muscles (726767946) Muscle spasm of back (M62.830) Active confirmed Problem Skin symptom change (741133833) Unspecified skin changes (R23.9) Active confirmed Problem Frequency of micturition (843103270) Frequency of micturition (R35.0) Active confirmed Problem Exposure to communicable disease (375414730) Contact with and (suspected) exposure to other viral communicable diseases (Z20.828) Active confirmed Problem Recurrent urinary tract infection (288773156) Recurrent UTI (N39.0) Active confirmed Problem Hypertension (98155147) Hypertension (I10) Active confirmed Problem Hypothyroidism (32045623) Hypothyroidism (E03.9) Active confirmed Problem Edema (78688270) Edema (R60.9) Active confirmed Problem Varicose vein (11369540) Varicose vein (I86.8) Active confirmed Problem Dyspnea (642109844) Dyspnea (R06.00) Active con firmed Problem Essential hypertension (27380060) Benign essential HTN (I10) Active confirmed Problem Insomnia (446690385) Insomnia (G47.00) Active confirmed Problem Acid reflux (983504627) Acid reflux (K21.9) Active confirmed Problem Urinary incontinence (887171938) Urinary incontinence (R32) Active confirmed Problem Degenerative joint disease (266775869) DJD (degenerative joint disease) (M19.90) Active confirmed Problem Lumbar radiculopathy (504068264) Lumbar radiculopathy (M54.16) Active confirmed Problem Lumbar post-laminectomy syndrome (694467596) Lumbar post-laminectomy syndrome (M96.1) Active confirmed Problem Sinusitis (76018661) Sinusitis (J32.9) Active confirmed Problem Disorder of lumbar disc (265663865) Lumbar disc disease (M51.9) Active confirmed Problem Pharyngitis (731340991) Pharyngitis (J02.9) Active confirmed Problem Acute bronchitis (64683990) Acute bronchitis (J20.9) Active confirmed Problem Sciatica (68902346) Sciatica (M54.30) Active co nfirmed Problem Cellulitis (908651611) Cellulitis (L03.90) Active confirmed Problem Alopecia (13267512) Hair loss (L65.9) Active co nfirmed Problem Seasonal allergic rhinitis (465049938) Seasonal allergic rhinitis (J30.2) Active confirmed Problem Pain of left hand (366727913905193) Left hand pain (M79.642) Active confirmed Problem Vitamin B12 deficiency (non anemic) (72508475) B12 deficiency (E53.8) Active confirmed Problem Foot ulcer due to type 2 diabetes mellitus (7707177541563) Type 2 diabetes mellitus with foot ulcer (E11.621) Active confirmed Problem Lumbosacral radiculopathy (8407000) Lumbosacral neuritis (M54.17) Active confirmed Problem Osteoarthritis (541508633) Osteoarthritis, unspecified osteoarthritis type, unspecified site (M19.90) Active confirmed Problem Pain in limb (51849960) Pain in left lower leg (M79.662) Active confirmed Problem Acute sinusitis (97504313) Acute sinus infection (J01.90) Active confirmed Problem Overweight (465195294) Over weight (E66.3) Active confirmed Problem Dyshidrotic eczema (828307969) Dyshidrotic eczema (L30.1) Active confirmed Problem Ankylosing spondylitis (3126954) Ankylosing spondylitis (M45.9) Active confirmed Problem Nevus (7108977451) Nevus (D22.9) Active confirm ed Problem Ankle edema (01271481) Ankle edema (R60.0) Active confirmed Problem Acute gastroenteritis (67322302) Acute gastroenteritis (K52.9) Active confirmed Problem Peripheral vascular disease (585258967) Other peripheral vascular disease (I73.89) Active confirmed Problem Lumbosacral spondylosis without myelopathy (42742974) Other osteoarthritis of spine, lumbar region (M47.896) Active confirmed Problem Delayed healing of surgical wound (finding) (493161031) Delayed surgical wound healing (T81.89XA) Active confirmed Problem Easy bruising (636335592) Easy bruising (R23.8) Active confirmed Problem Chronic venous insufficiency (33500746) Chronic venous insufficiency (I87.2) Active confirmed Problem Allergic arthritis (28093734) Allergic arthritis (M13.80) Active confirmed Problem Peripheral vascular disease (391008963) Other peripheral vascular diseases (I73.89) Active confirmed Problem Shoulder impingement syndrome (073169854) Shoulder impingement syndrome (M75.40) Active confirmed Problem At risk for falls (091457754) At risk for falls (Z91.81) Active confirmed Problem Vitamin B deficiency (35526430) Deficiency of vitamin B12 (E53.8) Active confirmed Problem Polyneuropathy due to type 2 diabetes mellitus (151240314) Diabetes mellitus with diabetic polyneuropathy (E11.42) Active confirmed Problem Ankle ulcer (030590294) Non-healing ulcer of ankle, right, with fat layer exposed (L97.312) Active confirmed Problem Avascular necrosis of head of humerus (685671606) Avascular necrosis of head of humerus (M87.029) Active confirmed Problem Pain co-occurrent and due to varicose veins of bilateral legs (14815226861658056) Varicose veins of leg with pain, bilateral (I83.813) Active confirmed Problem Decubitus ulcer of left foot, stage 2 (L89.892) Active confirmed Problem Arthritis of lumbosacral spine (386019121) Arthritis of lumbosacral spine (M47.817) Active confirmed Problem Peripheral venous insufficiency (61037312) Acute stasis dermatitis (I87.2) Active confirmed Problem Mixed anxiety and depressive disorder (074665289) Anxiety and depression (F41.8) Active confirmed Problem Decubitus ulcer of right ankle, stage 2 (L89.512) Active confirmed Problem Allergic arthritis of the pelvic region and thigh (033408435) Allergic arthritis of left hip (M13.852) Active confirmed Problem Decubitus ulcer of calf, stage 2, unspecified laterality (L89.892) Active confirmed Problem Bruising (856866931) Bruising (T14.8XXA) Active confirmed Problem Decubitus ulcer of right foot, stage 2 (L89.892) Active confirmed Problem Pressure ulcer o f toe of left foot, stage 2 (L89.892) Active confirmed Problem Pressure injury of right ankle, stage 1 (L89.511) Active confirmed Problem Ankle ulcer (800236945) Chronic ulcer of right ankle with fat layer exposed (L97.312) Active confirmed Problem Pressure injury of right ankle, stage 2 (L89.512) Active confirmed Problem Chronic ulcer of toe of right foot with fat layer exposed (L97.512) Active confirmed Problem Lumbar spinal stenosis (03595422) Lumbar spinal stenosis (M48.061) Active confirmed Problem Osteoarthritis of knee (845354720) Osteoarthritis of right knee (M17.11) Active confirmed Problem Acute embolism a nd thrombosis of right peroneal vein (I82.451) Active confirmed Problem Clostridial enteric disease (854236636) Clostridioides difficile diarrhea (A04.72) Active confirmed Problem COVID-19 (892954064) COVID-19 (U07.1) Active confirmed Problem Polyneuropathy due to type 2 diabetes mellitus (307664989) Controlled type 2 diabetes mellitus with diabetic polyneuropathy, 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) Active confirmed Problem Herniation of rectum into vagina (701684075) Rectocele without uterine prolapse (N81.6) Active confirmed Problem Chronic ulcer of right foot (disorder) (82390691724879235) Chronic ulcer of right foot with fat layer exposed (L97.512) Active confirmed Problem Cough (finding) (32941720) Other cough (R05.8) Active confirmed Problem Thrombophlebitis of superficial veins of lower extremity (17849725) Thrombophlebitis of superficial vein of lower leg (I80.00) Active confirmed Vital Signs Heart Rate 77 /min 09/06/2024 Temperature 98.2 degrees Fahrenheit 12/09/2024 Oximetry 98 % 09/06/2024 Blood pressure diastolic 74 mm Hg 12/27/2024 Height 68 in 12/27/2024 Blood pressure systolic 138 mm Hg 12/27/2024 Weight 188.4 lbs 12/27/2024 BMI 28.64 kg/m2 12/27/2024 Encounters Encounter Location Date Provider Diagnosis [facility] [address] [place] [address] 12/07/2024 Nixon [facility] [address] [place] [address] 12/12/2024 Nixon [facility] [address] [place] [address] 12/20/2024 Nixon [facility] [address] [place] [address] 2024 Nixon [facility] [address] [place] [address] 12/27/2024 Nixon Carrizales Lumbar post-laminectomy syndrome M96.1 and DJD (degenerative joint disease) M19.90 [facility] [address] [place] [address] 08/12/2024 Nixon Hoy [facility] [address] [place] [address] 08/16/2024 Nixon Hoy [facility] [address] [place] [address] 10/11/2024 Nixon Hoy [facility] [address] [place] [address] 10/11/2024 Nixon Hoy Screening for breast cancer Z12.39 [facility] [address] [place] [address] 10/12/2024 Nixon Hoy [facility] [address] [place] [address] 11/21/2024 Nixon Hoy [facility] [address] [place] [address] 02/09/2024 Nixon Hoy Urinary incontinence R32 [facility] [address] [place] [address] 02/16/2024 Trisha Mcneil [facility] [address] [place] [address] 02/29/2024 Nixon Hoy B12 deficiency E53.8 [facility] [address] [place] [address] 06/23/2024 Nixon Hoy B12 deficiency E53.8 [facility] [address] [place] [address] 06/28/2024 Nixon Hoy Influenza A J10.1 ; Bronchitis J40 and Frequency of micturition R35.0 [facility] [address] [place] [address] 07/29/2024 Nixon Hoy Arthritis of lumbosacral spine M47.817 and Other intervertebral disc displacement, lumbar region M51.26 [facility] [address] [place] [address] 01/19/2024 Nixon Hoy B12 deficiency E53.8 ; Hypertension I10 ; Hair loss L65.9 and Insomnia G47.00 [facility] [place] ([facility]) [address] [place] [address] [place] [address] 03/03/2024 Deepali Jansen Deficiency of vitami n B12 E53.8 ; Pain in right toe(s) M79.674 ; Pain in left toe(s) M79.675 and At risk for falls Z91.[address] [address] 11/16/2024 Nixon Hoy UTI (urinary tract infection) N39.0 and Muscle spasm of back M62.[address] [address] 12/09/2024 Nixon Hoy UTI (urinary tract infection) N39.0 and Blood in stool K92.[address] [address] 12/20/2024 Nixon Hoy Muscle spasm of back M62.830 ; Urinary incontinence R32 and Acute bronchitis 466.[address] [address] 02/19/2024 Trisha Mcneil Deficiency of vitami n B12 E53.8 ; Bronchitis J40 and Cough R05.[address] [address] 08/12/2024 Nixon Hoy Frequent urination R35.0 ; Lumbar disc disease M51.9 and Lumbar post-laminectomy syndrome M96.[address] [address] 09/06/2024 Trisha Mcneil Sinusitis J32.[address] [address] 10/11/2024 Nixon Hoy Easy bruising R23.8 ; Muscle spasm of back M62.830 ; Hypertension I10 ; DJD (degenerative joint disease) M19.90 and Controlled type 2 diabetes mellitus with diabetic polyneuropathy, 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 E11.[address] [address] 05/16/2024 Trishagurmeet Lamasmer Influenza A J10.1 an d Left foot pain M79.[address] [address] 07/29/2024 Nixon Hoy Type 2 diabetes mellitus with foot ulcer E11.621 ; Muscle spasm of back M62.830 and Lumbar post-laminectomy syndrome M96.[address] [address] 11/28/2024 Nixon Hoy Frequency of micturition R35.0 ; Acute bronchitis 466.0 and Recurrent UTI N39.[address] [address] 12/27/2024 Nixon Hoy Lumbar radiculopathy M54.[address] [address] 03/25/2024 Nixon Hoy Deficiency of vitami n B12 E53.8 and Encounter for immunization Z23 [address] [address] 04/22/2024 Nixon Hoy Deficiency of vitami n B12 E53.[address] [address] 05/25/2024 Nixon Hoy Deficiency of vitami n B12 E53.[address] [address] 06/20/2024 Nixon Hoy Deficiency of vitami n B12 E53.[address] [address] 07/20/2024 Nixon Hoy Deficiency of vitami n [...] repate raul in 10 - 14 days 12/27/2024 Lumbar radiculopathy (ICD-10 - M54.16) 02/09/2024 Urinary incontinence (ICD-10 - R32) 02/29/2024 B12 deficiency (ICD-10 - E53.8) 06/23/2024 B12 deficiency (ICD-10 - E53.8) 06/28/2024 Influenza A (ICD-10 - J10.1) 07/29/2024 Arthritis of lumbosacral spine (ICD-10 - M47.817) 07/29/2024 Other intervertebral disc displacement, lumbar region (ICD-10 - M51.26) 10/11/2024 Screening for breast cancer (ICD-10 - Z12.39) 12/27/2024 Lumbar post-laminectomy syndrome (ICD-10 - M96.1) 12/27/2024 DJD (degenerative joint disease) (ICD-10 - M19.90) 06/28/2024 Bronchitis (ICD-10 - J40) 12/20/2024 Acute [...] diabetes mellitus with diabetic polyneuropathy, unspecified whether detention insulin use (ICD-10 - E11.42) 07/29/2024 Other Recommended to rest and use a heating pad on the area. Take NSAIDs for pain as needed 08/12/2024 Other Recommended to rest and use a heating pad on the area. Take NSAIDs for pain as needed 09/06/[address] All carrasquillo LE discoloration 12/27/2024 Other Recommended to rest and use a heating pad on the area. Take NSAIDs for pain as needed Plan Of Treatment Pending Test Test Name [...] FOLATE 01/19/2024 MRI LSPINE WO CON 01/07/2023 MRI LSPINE WO CON 12/27/2024 US KIDNEYS BLADDER 05/22/2023 XR CHEST 2 V 12/20/2024 XR HIP LT 2 3V W PELVIS 12/20/2024 XR LSPINE MIN 4 VIEWS 12/20/2024 XR SHOULDER LT 2V or > 07/20/2023 THYROID PANEL (T4/TSH/FREE T3) 5 THYROID PANEL (T4/TSH/FREE T3) 4 XR HIP [...] End Date [employer] [address] [place] [address] [phone] Leelee Cedillo Self - patient is the [...] 60 mg Ketorolac Tromethamine 12/20/2024 60 mg Ketorolac Tromethamine 12/27/2024 60 mg Orphenadrine Citrate 08/25/2022 60 mg 60 Orphenadrine Citrate 11/12/2022 60 mg 60 Orphenadrine Citrate 12/31/2022 60 mg Orphenadrine Citrate 01/07/2023 60 mg 60 Orphenadrine Citrate 07/20/2023 60 mg 60 Orphenadrine Citrate 07/29/2024 60 mg Orphenadrine Citrate 08/12/2024 60 mg Orphenadrine Citrate 11/16/2024 60 mg Orphenadrine Citrate 12/20/2024 60 mg Orphenadrine Citrate 12/27/2024 60 mg Triamcinolone 40 mg/ml 07/29/2024 120 mg Triamcinolone 40 mg/ml 08/12/2024 120 mg Triamcinolone 40 mg/ml 11/16/2024 120 mg Triamcinolone 40 mg/ml 12/09/2024 120 mg Triamcinolone 40 mg/ml 12/20/2024 80 mg Triamcinolone 40 mg/ml 12/27/2024 80 mg Medical (General) History Medical History [...] M51.26 Ischemia I99.8 Surgical History Surgery Date(Month/Year) spine surgery 12/2018 cataract surgery 05/2021 Skin Substitute with excisional biopsy- right ankle/foot 08/10 Carpal Tunnel Release 07/03/10 D&C 02/09/14 Excision of Ganglion Cyst 2011 Knee Arthroscopy, Rt 2012 Cholecystectomy 2007 Rotator Cuff Repair, rt 2010 Meniscus Repair, Rt 2011 Revision Fusion T11-L4 Total Knee Rt 05/10 Laser Ablation small Saphenous vein, rt 05/21/22 Venous Ablation 06/03/22 Ablation Left Varicose Veins 06/19/22 Lumbar Epidural Steroid injection, Dr. Randall carmona Hospitalization History Reason Date(Month/Year) Hip dislocation 03/11 Multiple times for surgeries Seizure activity- 08/10
--- OUTSIDE RECORDS SUMMARY | 2025-01-02 08:17 | XMS_ITS | CCD ---
Author Organization [facility] CliniSynd Care Team Providers Care Supervisor Braiding Name Role Phone Praveen Lopez Unavailable Unavailable PHYSICIAN, DEFAULT Unavailable Unavailable PHYSICIAN, DEFAULT Unavailable Unavailable SARA VICK Unavailable Unavailable Hoy, Sara~[phone] UNKNOWN Admitting Unavailable Hoy, Sara~[phone] UNKNOWN Attending Unavailable Sara Vick~[phone] UNKNOWN Referring Unavailable Sara Vick Primary Care Provider Trino Yoo Attending Provider [phone] Larry Brown Unavailable Sara Vick Primary Care Physician Lynn Salas Unavailable Unavailable Holleran, Flor Unavailable Unavailable ADELE FLEMING Attending Unavailable SARA VICK Primary Care Unavailable MD Sara Vick Primary Care Provider MD Sara Vick Attending Provider [phone] DEEPALI JANSEN Consulting Unavailable DEEPALI JANSEN Admitting [...] NICANOR ., DR RUIZ Admitting Unavailable NICANOR ., DR RUIZ Attending Unavailable SHAWANDA LITTLE Admitting Unavailable SHAWANDA LITTLE Attending Unavailable SHAWANDA LITTLE Consulting Unavailable HORichard ., DR RUIZ Primary Care Unavailable SARA [...] Unavailable WEST, DR ALFRED Deal Consulting Unavailable DEEPALI JANSEN Admitting Unavailable DEEPALI JANSEN Attending Unavailable HOY ., DR RUIZ Primary Care Unavailable ELZBIETADEEPALI Consulting Unavailable HIGHLANDER, ADELE Means Attending Unavailable HIGHLANDER, ADELE D Admitting Unavailable HOY ., DR RUIZ [...] [place], DR AKIL Salvador Consulting Unavailabl e REINECK, DR AKIL Salvador Admitting Unavailabl e REINECK, DR AKIL Salvador Attending Unavailabl e HOY ., DR RUIZ Primary Care Unavailable AMRI LORENZO Consulting Unavailable HOY ., DR RUIZ Consulting Unavailable HOY ., DR RUIZ Admitting Unavailable HOY ., DR RUIZ Attending Unavailable HOY ., DR RUIZ Primary Care Unavailable HIGHLANDER, PETER D Admitting Unavailable HIGHLANDER, PETER D Attending Unavailable HOY ., DR RUIZ Primary Care Unavailable HIGHLANDER, ADELE D Admitting Unavailable HIGHLANDER, ADELE D Attending Unavailable HOY ., DR RUIZ [...] HIGHLANDER, PETER D Admitting Unavailable ZIEBER, DR UJLIO Wu Consulting Unavailable HOY ., DR RUIZ Primary Care Unavailable HIGHLANDER, PETER D Consulting Unavailable PERFECTO BURCH Referring Unavailable PERFECTO BURCH Attending Unavailable SARA VICK Primary Care Unavailable PERFECTO BURCH Attending Unavailable SARA VICK Primary Care Unavailable Sorin DICKERSON Referring Unavailable PERFECTO BURCH Attending Unavailable SARA VICK Primary Care Unavailable PERFECTO BURCH Referring Unavailable Sara Vick MD Primary Care Provider [phone] Dominique Shane Unavailable MD Sara Vick Primary Care Provider [phone] MD Larry Brown Attending Provider [phone] Kiran Kessler Unavailable HAILEY Jansen Attending Provider MD Kiran Kessler Attending Provider Sara Vick MD Primary Care Provider [phone] Sara Vick Primary Care Provider [phone] HAILEY Jansen Attending Provider MD Kiran Kessler Attending Provider [phone] ANNIE JIMENEZ Attending Unavailable ANNIE JIMENEZ Referring Unavailable АЛЕКСАНДРROS Referring Unavailable HOY, SARA M Primary Care Unavailable NIXON VICKLAS M Primary Care Unavailable PELLE, GHANSHYAM Referring Unavailable HOYNIXONSARA M Primary Care Unavailable PELLE, GHANSHYAM Referring Unavailable HOY, SARA M Primary Care Unavailable PELLE, GHANSHYAM Attending Unavailable NIXON VICKLAS M Referring Unavailable SARA VICK Primary Care Unavailable Sara Vick MD Primary Care Provider [phone] Sara Vick MD Attending Provider Sara Vick Attending Unavailable Nixon Vicklas Berta Primary Care Unavailable Sara Vick Admitting Unavailable Unavailable Primary Care Provider UnavailJudson Butler Attending Unavailable Sara Vick Referring Unavailable Unavailable Unavailable Unavailable Allergies Allergy Classification Reported Allergen(s) Allergy Type Date of Onset Reaction(s) Facility (1 source) Sulfa Antibiotics 06-19-19 18 [facility] (3 sources) Sulfonamides (Antibiotic) Drug allergy (disorder) 08-02-19 10 [facility] Repository (5 sources) Sulfamethoxazole; Translations: [sulfamethoxazole ] Drug Allergy Cutaneous eruption (morphologic abnormality) [facility] Repository (2 sources) Sulfur; Translations: [Sulfur] Drug Allergy [facility] Repository (12 sources) Sulfonamides (Antibiotic); Translations: [SULFA (SULFONAMIDE ANTIBIOTICS)] Allergy to substance 07-17-19 07 [facility] (18 sources) Sulfacetamide Drug Allergy 09-19-19 23 [facility] Other (2 sources) metroNIDAZOLE Drug Allergy 09-19-19 23 Dyspepsia [facility] (1 source) Sulfacetamide Drug Allergy 08-07-19 24 [facility] Repository Medications Current Medications Medication Drug Class(es) Dates Sig (Normalized) Sig (Original) acetaminophen 325 mg oral tablet (3 sources) Start: 09-14-2019 take 2 tablets by mouth every four hours as needed for pain Tylenol 325 mg Tab 650 mg = 2 tab(s), Oral, q4hr, PRN Breakthrough Pain, Refills(s) 0 Start Date: 09/14/19 Status: Ordered Start: 06-18-2017 take 2 tablets by mo [facility] every four hours as needed for pain [...] Ordered alendronic acid 70 mg oral tablet (20 sources) Bisphosphonate Start: 06-29-2023 take 1 tablet by mouth once daily Start: 07-08-2022 take 1 tablet by donna every week alendronate 70 mg Tab 70 mg = 1 tab(s), Oral, qWeek, Refills(s) 0 Start Date: 07/26/22 Status: Ordered Repeat number: 1 take 1 tablet by donna once daily Alendronate Sodium 70 MG 1 tablet 30 minutes before the first food, beverage or medicine of the day with plain water Orally Active ALPRAZolam 0.25 mg oral tablet (1 source) Benzodiazepine Start: 12-15-2024 take 1 tablet by mouth twice daily as needed for anxiety alprazolam 0.25 mg Tab 0.25 mg = 1 tab(s), Oral, BID, PRN as needed for anxiety, Refills(s) 0 Start Date: 12/15/24 Status: Ordered Repeat number: 1 aspirin 81 mg delayed release oral tablet (20 sources) Platelet Aggregation Inhibitor, Nonsteroidal Anti-inflammatory Drug Start: 07-27-2022 take 1 tablet by mouth once daily aspirin 81 mg Oral EC Tab 81 mg = 1 tab(s), Oral, Daily, # 30 tab(s), Refills(s) 0, Pharmacy: [facility]/pharmacy #[id number], 172.7, cm, 07/26/22 11:43:00 EDT, Height/Length Dosing, [...] op TKA for DVT prophylaxis Apr, Not-Taking/PRN baclofen 20 mg oral tablet (1 source) gamma-Aminobutyric Acid-ergic Agonist Start: 12-15-2024 take 1 tablet by mouth at bedtime baclofen 20 mg Tab 20 mg = 1 tab(s), Oral, Bedtime, Refills(s) 0 Start Date: 12/15/24 Status: Ordered Repeat number: 1 Biscolax Suppository (1 source) Start: 06-18-2017 Biscolax [...] daily Start: 06-19-2017 take 1 tablet by [facility] once daily Vitamin D3 Tablet 2000 UNIT 1 tablet Tablet Oral Give 1 tablet by mouth one time a day for supplement 06/19/2017 9:00:00 take 1 capsule by [facility] every twenty-four hours Vitamin D3 50 MCG [...] by mouth once daily losartan 100 mg Tab 100 mg = 1 tab(s), Oral, Daily Start Date: 06/26/17 Status: Ordered Repeat number: 1 Losartan [place] um Active Comment on above: Take 1 tablet by donna th once daily. meloxicam 15 mg oral tablet (20 sources) Nonsteroidal Anti-inflammatory Drug Start: 9 End: 4 take 1 tablet by mouth once daily Mobic 15 mg Tab 15 mg = 1 tab(s), Oral, Daily, Refills(s) 0 Start Date: 07/01/18 Status: Ordered Repeat number: 1 pantoprazole 40 mg delayed release oral tablet (20 sources) Proton Pump Inhibitor Start: 0 take 1 tablet by mouth once daily Pantoprazole [address] Tab 40 mg = 1 tab(s), Oral, Daily, Refills(s) 0 Start Date: 09/14/19 Status: Ordered Repeat number: 1 Start: 06-19-2017 take 1 tablet by donna [...] no reaction. 06/18/2017 21:00:00 06/20/2017 0:07:00 Aborted tiZANidine 4 mg oral capsule (20 sources) Central alpha-2 Adrenergic Agonist Start: 06-29-2023 take 0.5-1 tablets by mouth twice daily as needed Start: 07-26-2022 take 2 tablets by mo uth every eight hours as needed for muscle spasms tiZANidine 4 mg Tab 8 mg = 2 tab(s), Oral, q8hr, PRN Spasm, Refills(s) 0 Start Date: 07/26/22 Status: Ordered Start: 06-19-2017 take 2 tablets by mo uth twice daily Zanaflex Tablet 4 MG 2 tablet Tablet Oral GIVE 2 TABS (8MG) BY MOUTH TWICE DAILY FOR MUSCLOSKELETAL 06/19/2017 9:00:00 take 1 capsule by mo uth once daily at bedtime tiZANidine HCl 4 [...] oral tablet (1 source) Opioid Agonist Start: 8 take 1 tablet by mouth every twelve [...] Refills(s) 0 Start Date: 09/14/19 Status: Ordered Repeat number: 1 Start: 09-14-2019 cyanocobalamin 1000 mcg/mL Inj 1,000 microgram, IntraMuscular, qMonth, Refills(s) 0 Start Date: 09/14/19 Status: Ordered Vitamin D2 2000 intl units oral capsule (1 source) Start: 12-15-2024 take 1 capsule by mouth once daily Vitamin D2 2000 intl units oral capsule 50 mcg = 1 cap(s), Oral, Daily, cap(s), Refills(s) 0 Start Date: 12/15/24 Status: Ordered Repeat number: 1 Completed/Discontinued Medications Medication Drug Class(es) Dates Sig [...] for 30 days Dec, Active Start: 03-08-2022 [place] 325 mg-5 mg oral tablet 1 tab(s), Oral, q4hr for pain, 12 tab(s), Refill(s) 0, [facility]/pharmacy #[id number], 172, cm, 03/08/22 13:49:00 EST, [...] 2020 1:00am June 29, 2023 1:13pm Start: 06-26-2017 End: 06-29-2023 take 2 tablets by mouth [...] Anti-inflammatory Drug Start: 04-24-19 End: 09-11-19 take 1 tablet by mouth four times daily as needed for pain Ibuprofen 800 mg Tablet Discontinued 800 MG PO Four times daily as needed for Pain April 24, 2020 1:00am September 10, 2022 11:49am levothyroxine sodium 0.125 mg oral capsule (20 sources) l-Thyroxine Start: 06-27-19 take 1 capsule by mouth once daily levothyroxine 125 mcg (0.125 mg) oral capsule 125 microgram = 1 cap(s), Oral, Daily Start Date: 06/26/17 Status: Ordered Repeat number: 1 Start: 06-19-2017 take 1 tablet by donna [...] Date Documented Da te Episodic/Chronic Abdominal hernia (3 sources) Hiatal hernia 07-01-2013 Episodic Allergic reactions (2 sources) Vesicular eczema 09-14-2019 Episodic Anxiety disorders (6 sources) Anxiety; Translations: [Mixed anxiety and depressive [...] with other skin ulcer] Onset: 3 Chronic Diabetes mellitus without complication (1 source) Diabetes mellitus 12-15-2024 Chronic Esophageal disorders (4 sources) Gastroesophageal reflux disease; Translations: [Gastro-esophageal reflux disease without esophagitis] Onset: 3 01-13-2017 Chronic Essential hypertension (12 sources) Hypertensive disorder; Translations: [Essential hypertension] Onset: 7 07-01-2013 Chronic Joint disorders and dislocations; trauma-related (2 sources) Dislocation of hip joint; Translations: [Unspecified dislocation of unspecified hip, initial encounter] Onset: 2 Episodic Nutritional deficiencies (7 sources) Cobalamin deficiency; Translations: [Vitamin B deficiency] Onset: 2 09-14-2019 Episodic Open wounds of extremities (2 sources) Puncture wound without foreign body of right lesser toe(s) without damage to nail, initial encounter; Translations: [Unspecified open wound, right lower leg, initial encounter] Onset: 2 Episodic Osteoarthritis (20 sources) Osteoarthritis of right knee joint; Translations: [Unilateral primary osteoarthritis, right knee] Onset: 3 07-01-2013 Chronic Other aftercare (1 source) Other mcc (current) drug therapy; Translations: [OTH TRAFFIC SUPERVISOR CURRENT DRUG THERAPY] Onset: 3 Episodic Other [...] Episodic Other diseases of veins and lymphatics (19 sources) Peripheral venous insufficiency; Translations: [Venous insufficiency [...] initial encounter for closed fracture] Episodic Other gastrointestinal disorders (1 source) Occult blood in stools 12-15-2024 Episodic Other nervous system disorders (16 sources) Chronic pain; Translations: [Other chronic pain] 08-07-2023 Chronic Other nervous system disorders (10 sources) Other chronic pain; Translations: [Other chronic pain] Onset: 4 Chronic Other nervous system disorders (3 sources) Neuropathy 10-05-2017 Chronic Other nervous system disorders (1 source) Other specified polyneuropathies; Translations: [OTHER SPECIFIED POLYNEUROPATHIES] Onset: 3 Chronic Other nervous system disorders (2 sources) Numbness 01-13-2017 Episodic Other non-epithelial cancer of skin (3 sources) Carcinoma in situ of skin of scalp 10-11-2019 Episodic Other non-traumatic joint disorders (1 source) Other specified arthritis, unspecified site; Translations: [OTHER SPECIFIED ARTHRITIS UNS SITE] Onset: 3 Chronic Other nutritional; endocrine; and metabolic disorders (3 sources) Body mass index 30+ - obesity 09-20-2019 Chronic Other nutritional; endocrine; and metabolic disorders (1 source) Morbid obesity; Translations: [Morbid (severe) obesity due to excess calories] Onset: 3 Chronic Other nutritional; endocrine; and metabolic disorders (4 sources) Obesity; Translations: [Obesity, unspecified] Onset: 2 06-18-2011 Chronic Other nutritional; endocrine; and metabolic disorders (1 source) Overweight 12-15-2024 Episodic Other skin disorders (1 source) Disorder of the skin and subcutaneous tissue, unspecified; Translations: [DISORDER SKIN AND SUBQ TISSUE UNS] Onset: 3 Episodic Peripheral and visceral atherosclerosis (3 sources) Peripheral vascular disease 09-14-2019 Chronic Phlebitis; [...] 3 Episodic Rheumatoid arthritis and related disease (3 sources) Ankylosing spondylitis 09-14-2019 Chronic Spondylosis; intervertebral disc disorders; other back problems (20 sources) Solitary sacroiliitis; Translations: [Sacroiliitis, not elsewhere classified] Onset: 2 Chronic Spondylosis; intervertebral disc disorders; other back problems (20 sources) Lumbar radiculopathy; Translations: [Radiculopathy, lumbar region] Onset: 4 Episodic Superficial injury; contusion (14 sources) Contusion of elbow; Translations: [Contusion of left elbow, initial encounter] Episodic Thyroid disorders (19 sources) Hypothyroidism; Translations: [Hypothyroidism, unspecified] Onset: 2 [...] RIGHT LOWER LIMB] Onset: 10-09-2021 Episodic Unclassified (3 sources) herpes 07-03-2010 Unclassified (3 sources) pinched nerve in back L 4-5 07-03-2010 Unclassified (1 source) CONTACT W/AND (SUSP) EXPOS COVID-19; Translations: [CONTACT W/AND (SUSP) EXPOS COVID-19] Onset: 01-03-2022 Results Test Name Value Interpretation Reference Range Facility Urine Cultureon 12-09-2024 Bacteria identified Cx Nom (U) ORGANISM: Escherichia coli (O:ESCCOL) [place] Count 15,000 ORGANISM: Methicillin Resis Staph Aureus (O:MRSA) [place] Count 75,000 Aerobic BEATRIZ Charge (NMIC56) --- [...] RESISTANT TO ALL B-LACTAM DRUGS. PERFORMED BY: [place] [address] PATHOLOGIST WEB PRESSMAN FRANKLYN MARIE M.D. Normal [facility] Comment on above: Performed By: #### C UU #### [address] MR Thoracic spine WO contras ton 08-08-2023 [facility] MRI THORACIC SPINE WO IVCONo n [...] and assume there are 5 lumbar-type vertebrae. Quill Buncher And Sorter: ELAINE Transcribe Date/Time: Aug 08 2023 9:09P Dictated by : HARRY JONES MD This examination was interpreted and the report reviewed and electronically signed by: HARRY JONES MD on Aug 08 2023 9:14PM EST [id number] Normal [facility] BI MAMMOGRAM SCREENING TOMOS YNTHESIS BILATERALon 08-05-2023 BI MAMMOGRAM SCREENING TOMOSYNTHESIS BILATERAL This is a summary report. The complete report is available in the patient's medical record. If you cannot access the medical record, please contact the sending organization for a detailed fax or copy. BI MAMMOGRAM SCREENING TOMOSYNTHESIS BILATERAL:08/05/2023 11:05 AM CLINICAL HISTORY:screen. COMPARISONS: January 23, 2026 2017 through February 28, 2022. TECHNIQUE: Routine full [...] IS VERY IMPORTANT TO YOUR HEALTH. THE [employer] GUIDELINES RECOMMEND THAT WOMEN 40 [...] DATE OF EXAM: Jul 13 2023 11:11AM [facility] 0508 - CT LUMBAR SPINE [...] are 5 lumbar-type vertebrae. Anatomic variant: None. Headend Technician (topogram) images: Left femoroacetabular arthroplasty. Alignment: [...] any questions regarding this interpretation, please call [phone]. If you are unable to reach us at the number above, please feel free to contact [facility] eRadiology at [phone]. [id number] Normal [facility] CT Lumbar spine WO contrasto n 07-13-2023 [facility] CNOVon 06-24-2023 CNOV Office Visit (SPNSMN ) LEELEE CEDILLO ([id number]) 1950 F Date Time Provider Department 06/24/23 [...] Ghanshyam Lombardi MD Referring Provider: SARA VICK [[id number]] Allergies As of Date: 06/24/2023 Noted Allergy Reaction SULFA (SULFONAMIDE ANTIBIOTICS) 07/16/2006 Date Reviewed: 06/24/2023 Reviewed by: Kaur Manzano MA - Fully Assessed Reason for Visit: New Patient [172] Primary Visit Diagnosis:Adjacent segment disease of lumbar spine with history of fusion procedure [M51.36, Z98.1] Other Visit Diagnosis:Chronic bilateral low back pain with bilateral sciatica [M54.42, M54.41, G89.29] Order(s):MRI THORACIC SPINE WO IVCON [[id number]] Order #: [id number] FUTURE CT LUMBAR SPINE WO IVCON [[id number]] Order #: [id number] FUTURE Prescriptions as of 06/24/2023 - pantoprazole [...] Status:Closed by GHANSHYAM LOMBARDI on 06/24/23 Normal [facility] XR LUMBAR 4V AP/LAT/ FLEX/EX Ton [...] Number of different views (projections): 2 (accession [id number]), 4 (accession [id number]) COMPARISON: Radiographs dated 09/23/2021 RESULT: Counting reference: [...] changes with no evidence of hardware complication. Quill Buncher And Sorter: PSCB Transcribe Date/Time: Jun 24 2023 12:52P Dictated by : LATASHA QUEZADA MD This examination was interpreted and the report reviewed and electronically signed by: LATASHA QUEZADA MD on Jun 24 2023 12:55PM EST [id number] Normal [facility] XR Lumbar spine Views W flex ion and W extensionon 06-24-2023 [facility] XR SCOLIOSIS 2V PA STAND/LAT on [...] Number of different views (projections): 2 (accession [id number]), 4 (accession [id number]) COMPARISON: Radiographs dated 09/23/2021 RESULT: Counting reference: [...] changes with no evidence of hardware complication. Quill Buncher And Sorter: PSCB Transcribe Date/Time: Jun 24 2023 12:52P Dictated by : LATASHA QUEZADA MD This examination was interpreted and the report reviewed and electronically signed by: LATASHA QUEZADA MD on Jun 24 2023 12:55PM EST [id number] Normal [facility] XR Thoracic and lumbar spine Views for scoliosis W standingon 06-24-2023 [facility] VC CONSULT FOLLOWUPon 2022 VC CONSULT FOLLOWUP Patient: ITZEL CEDILLO Exam Date: 08/08/2022 : 1950 Gender:F Ordering : DR ALFRED UMAÑA M.D. Admission #: [id number] Family : Order #: [id number] CLICK HERE TO VIEW EXAM RADIOLOGY REPORT [...] MD on 08/08/2022 at 10:03 Approved by: Alferd Umaña MD on 08/08/2022 at 10:59 Normal [facility] VC EXT VENOUS LT LIMITEDon 0 08-08-2022 VC EXT VENOUS LT LIMITED Patient: LEELEE CEDILLO Exam Date: 08/08/2022 : 1950 Gender:F Ordering : DR ALFRED UMAÑA M.D. Admission #: [id number] Family : Order #: [id number] CLICK HERE TO VIEW EXAM RADIOLOGY REPORT [...] Umaña MD on 08/08/2022 at 09:43 Normal [facility] CHEMISTRYOrdered By: SYSTEM SYSTEM on 07-27-2022 Anion [...] 7.8 E9/L Normal 4.0 - 11.0 E9/L [facility] HemeAutoSS CHEMISTRYOrdered By: SYSTEM SYSTEM on 07-26-2022 [...] rate/Area] mL/min/1.73 m2 Normal >=59mL/min/1 .73 m2 [facility] Chem S GFR/1.73 sq M.predicted among non-blacks MDRD (S/P/Bld) [Vol rate/Area] mL/min/1.73 m2 Normal >=59mL/min/1 .73 m2 [facility] Chem S Glucose [Mass/Vol] 88 mg/dL Normal 55 - 199 mg/dL FT Remisol Magnesium [Mass/Vol] 2.0 mg/dL Normal 1.3 - 2 .4 mg/dL FT Remisol Potassium [Moles/Vol] 3.6 mmol/L Normal 3.5 - 5.3 mmol/L FT Remisol Sodium [Moles/Vol] 137 mmol/L Normal 135 - 145 mmol/L FT Remisol Urea nitrogen [Mass/Vol] 11 mg/dL Normal 5 - 21 mg/dL FT Remisol Urea nitrogen/Creatinine [Mass ratio] 14 mg/mg Normal 10 - 20 FT Remisol CHEMISTRYOrdered By: Lab ROP User on 07-26-2022 Glucose [Mass/Vol] 106 mg/dL High 55 - 99 mg/dL [facility] POC Subsection Comment on above: Result Comment: Parker wills RN/MD POC Device SN [id number] Invalid Interpretation Code [facility] POC Subsection POC User ID [id number] Invalid Interpretation Code [facility] POC Subsection POC Username SHANKAR ABARCA Invalid Interpretation Code [facility] POC Subsection HEMATOLOGYOrdered By: SYSTEM SYSTEM on [...] PM) Normal Negative [facility] UA Auto SS [place].plasma/Lithiu m.RBC (Bld) [Mass ratio] 0-3 /HPF Normal [...] FT UA Auto SS Urobilinogen Qn (U) 0.5665988 {Malu'U}/dL Normal 0.0 - 1.0 EU/dL FT UA Auto SS WBC Auto Ql (U) Trace *ABN* (07/26/22 4:49 PM) Invalid Interpretation Code Negative [facility] UA Auto SS WBC LM.HPF (Urine sed) [#/Area] 0-5 /HPF Normal 0-5/HPF FT UA Auto SS SURGICAL PATH REPORTon 07-25 SURGICAL PATH REPORT [facility] Department of Pathology [address] [place] [phone] Name: LEELEE CEDILLO : 1950 [facility] [id number] Number: Gender Female [facility] : n: Admit 71 years Attending ADELE FLEMING Age: Provider: Ordering ADELE FLEMNIG Provider: Consulti Surgical Pathology Report ng: ACCESSION: COLLECTED DATE/TIME: RECEIVED DATE/TIME: PATHOLOGIST: [id number] 07/24/2022 12:16 EDT 07/24/2022 12:16 EDT MICHELINE STERN MD Final Diagnosis Report for [facility] [place] [place] RIGHT ANKLE, PUNCH BIOPSY: - FRAGMENT [...] Tissue pathology report for: [facility], [address] [place] [address], [place] [address]; ____ ____ Print 07/25/2022 15:48 EDT Number: Date/Time: [facility] Department of Pathology [address] [place] [phone] Name: LEELEE CEDILLO : 1950 [facility] [id number] Number: Gender Female [facility] : n: Admit 71 years Attending ADELE FLEMING Age: Provider: Ordering ADELE FLEMING Provider: Consulti Surgical Pathology Report ng: ACCESSION: COLLECTED DATE/TIME: RECEIVED DATE/TIME: PATHOLOGIST: [id number] 07/24/2022 12:16 EDT 07/24/2022 12:16 EDT LEENA RUFF, MICHLEINE Gross Description PATHOLOGY SERVICES PROVIDED BY [employer] (CLIA #[id number]) in cooperation with [facility] at [address] [place] [id number] ( CLIA #[id number]) Microscopic Diagnosis The final diagnosis is based on a microscopic exam of employee's representative sections. Codes CPT CODE: 03143 ____ ____ Print 07/25/2022 15:48 EDT Number: Date/Time: Normal [facility] Comment on above: Performed By: #### [id number] #### [facility] Services [address] [id number] Kinesiologist: Jared Oh MD POINT OF CARE GLUCOSEon 04-0 Glucose [Mass/Vol] 114 mg/dL Critically high 74-106 [facility] Comment on above: Performed By: #### P OCGLUC #### [facility] [address] [address] [address] Salvador Yung Glucose [Mass/Vol] 112 mg/dL Critically high 74-106 [facility] Comment on above: Performed By: #### P OCGLUC #### [facility] [address] [address] [address] Salvador Yung [facility]-20 SARS-CoV-2 (COVID-19) RNA VIVIANA+probe Ql (Unsp spec) Not detected Normal NOT DETECTED [facility] Comment on above: Result Comment: This test is not yet approved or cleared by the [place] FDA. When there are no FDA-approved or cleared tests available, and other criteria are met, FDA can make tests available under an emergency access mechanism called an Emergency Use Authorization (EUA). The EUA for this test is supported by the Plate Printer of Health and Human Service's (HHS's) declaration [...] SARS-CoV-2. Performed By: #### C VDTBH #### [facility] [facility] [address] [address] [address] Salvador Yung PROF CHEM 8 (BAS METB)on Anion gap [Moles/Vol] 12.0 mmol/L Normal Th e [facility] Comment on above: Performed By: #### B MP #### [facility] [address] [place] [address] Dr. Salvador Yung Calcium [Mass/Vol] 9.4 mg/dL Normal 8.5-10.1 [facility] Comment on above: Performed By: #### B MP #### [facility] [address] [place] [address] Dr. Salvador Yung Chloride [Moles/Vol] 100 mmol/L Normal 98-107 [facility] Comment on above: Performed By: #### B MP #### [facility] [address] [place] [address] Dr. Salvador Yung CO2 [Moles/Vol] 29.8 mmol/L Normal 21.0-32.0 [facility] Comment on above: Performed By: #### B MP #### [facility] [address] [place] [address] Dr. Salvador Yung Creatinine [Mass/Vol] 0.91 mg/dL Normal 0.55-1.02 [facility] Comment on above: Performed By: #### B MP #### [facility] [address] [place] [address] Dr. Salvador Yung EGFR-AF BOTSWANAN >60 Normal >=60 [facility] Comment on above: Performed By: #### B MP #### [facility] [address] [place] [address] Dr. Salvador Yung EGFR-NON AF BOTSWANAN >60 Normal >=60 [facility] Comment on above: Performed By: #### B MP #### [facility] [address] [place] [address] Dr. Salvador Yung Glucose [Mass/Vol] 82 mg/dL Normal 74-106 [facility] Comment on above: Performed By: #### B MP #### [facility] [address] [address] [address] Salvador Yung Potassium [Moles/Vol] 3.8 mmol/L Normal 3.5-5.1 [facility] Comment on above: Performed By: #### B MP #### [facility] [address] [place], [place] [address] Dr. Salvador Yung Sodium [Moles/Vol] 138 mmol/L Normal 136-145 [facility] Comment on above: Performed By: #### B MP #### [facility] [address] [address] [address] Salvador Yung Urea nitrogen [Mass/Vol] 12.0 mg/dL Normal 7.0-18.0 [facility] Comment on above: Performed By: #### B MP #### [facility] [address] [address] [address] Salvador Yung Urea nitrogen/Creatinine [Mass ratio] 13.2 mg/mg Normal [facility] Comment on above: Performed By: #### B MP #### [facility] [address] [address] [address] Salvador Yung VC INJ SCL JESSICA INJECTION MACHINE OPERATOR VEINSon 0 07-01-2022 VC INJ SCL JESSICA INJECTION MACHINE OPERATOR VEINS Patient: LEELEE CEDILLO Exam Date: 07/01/2022 : 1950 Gender:F Ordering : DR ALFRED UMAÑA M.D. Admission #: [id number] Family : Order #: [id number] CLICK HERE TO VIEW EXAM RADIOLOGY REPORT [...] Lobato M.D. on 07/01/2022 at 15:22 Normal [facility] VC CONSULT FOLLOWUPon 2022 VC CONSULT FOLLOWUP Patient: ITZEL CEDILLO. Exam Date: 06/19/2022 : 1950 Gender:F Ordering : DR ALFRED UMAÑA M.D. Admission #: [id number] Family : Order #: [id number] CLICK HERE TO VIEW EXAM RADIOLOGY REPORT [...] Umaña MD on 06/19/2022 at 14:17 Normal [facility] VC EXT VENOUS LT LIMITEDon 0 06-19-2022 VC EXT VENOUS LT LIMITED Patient: LEELEE CEDILLO Exam Date: 06/19/2022 : 1950 Gender:F Ordering : DR ALFRED UMAÑA M.D. Admission #: [id number] Family : Order #: [id number] CLICK HERE TO VIEW EXAM RADIOLOGY REPORT [...] Umaña MD on 06/19/2022 at 14:15 Normal [facility] VC INJ FOAM SCLERO W US MLTI on 06-13-2022 VC INJ FOAM SCLERO W US MLTI Patient: LEELEE CEDILLO Exam Date: 06/13/2022 : 1950 Gender:F Ordering : DR ALFRED UMAÑA M.D. Admission #: [id number] Family : Order #: [id number] CLICK HERE TO VIEW EXAM RADIOLOGY REPORT [...] duple (more content not included)... Normal [facility] VC CONSULT FOLLOWUPon 2022 VC CONSULT FOLLOWUP Patient: ITZEL CEDILLO Exam Date: 06/10/2022 : 1950 Gender:F Ordering : DR ALFRED UMAÑA M.D. Admission #: [id number] Family : Order #: [id number] CLICK HERE TO VIEW EXAM RADIOLOGY REPORT [...] Lobato M.D. on 06/10/2022 at 12:36 Normal [facility] VC EXT VENOUS RT LIMITEDon 0 06-10-2022 VC EXT VENOUS RT LIMITED Patient: LEELEE CEDILLO Exam Date: 06/10/2022 : 1950 Gender:F Ordering : DR ALFRED UMAÑA M.D. Admission #: [id number] Family : Order #: [id number] CLICK HERE TO VIEW EXAM RADIOLOGY REPORT [...] Lobato M.D. on 06/10/2022 at 12:33 Normal [facility] VC INJ FOAM SCLERO W US MLTI on 06-03-2022 VC INJ FOAM SCLERO W US MLTI Patient: LEELEE CEDILLO Exam Date: 06/03/2022 : 1950 Gender:F Ordering : DR ALFRED UMAÑA M.D. Admission #: [id number] Family : Order #: [id number] CLICK HERE TO VIEW EXAM RADIOLOGY REPORT PROCEDURE: VEIN CENTER INJECTION FOAM SCLEROSING SOLUTION WITH ULTRASOUND MULTIPLE VEINS COMPARISON: None. Pre-operative Diagnosis: CEAP class C6 venous insufficiency with pain, tenderness, edema and incompetent right small saphenous vein and shop mechanic vein, incompetent varicose veins, venous insufficiency right leg secondary to venous incompetence Post-operative Diagnosis: CEAP class C6 venous insufficiency with pain, tenderness, edema and incompetent right small saphenous vein and shop mechanic vein, incompetent varicose veins, venous insufficiency right [...] l (more content not included)... Normal [facility] VC CONSULT FOLLOWUPon 2022 VC CONSULT FOLLOWUP Patient: ITZEL CEDILLO Exam Date: 05/28/2022 : 1950 Gender:F Ordering : DR ALFRED UMAÑA M.D. Admission #: [id number] Family : Order #: [id number] CLICK HERE TO VIEW EXAM RADIOLOGY REPORT [...] seen by her primary care physician, Dr. Vikc and had injections for the pain. Patient [...] Umaña MD on 05/28/2022 at 11:44 Normal [facility] VC EXT VENOUS RT LIMITEDon 0 05-28-2022 VC EXT VENOUS RT LIMITED Patient: LEELEE CEDILLO Exam Date: 05/28/2022 : 1950 Gender:F Ordering : DR ALFRED UMAÑA M.D. Admission #: [id number] Family : Order #: [id number] CLICK HERE TO VIEW EXAM RADIOLOGY REPORT [...] extends to distal lower leg. Thrombus in shop mechanic distal medial lower leg 2.8 mm from [...] MD on 05/28/2022 at 11:30 Normal [facility] CBC AUTO DIFFon 05-21-2022 BASO # 0.1 103/ul Normal 0.0-0.1 [facility] Comment on above: Performed By: #### C BC #### [facility] [address] [place] [address] Dr. Salvador Yung Basophils/100 WBC (Bld) 0.6 % Normal 0.2-2.0 [facility] Comment on above: Performed By: #### C BC #### [facility] [address] [place] [address] Dr. Salvador Yung EO # 0.1 103/ul Normal 0.0-0.7 [facility] Comment on above: Performed By: #### C BC #### [facility] [address] [place] [address] Dr. Salvador Yung Eosinophils/100 WBC (Bld) 0.6 % Critically low 0.9-7.0 [facility] Comment on above: Performed By: #### C BC #### [facility] [address] [place] [address] Dr. Salvador Yung Erythrocyte distribution width (RBC) [Ratio] 12.4 % Normal 11.0-15.0 [facility] Comment on above: Performed By: #### C BC #### [facility] [address] [place] [address] Dr. Salvador Yung Hematocrit (Bld) [Volume fraction] 43.1 % Normal 36.0-48.0 [facility] Comment on above: Performed By: #### C BC #### [facility] [address] [address] [address] Salvador Yung Hemoglobin (Bld) [Mass/Vol] 13.8 g/dL Normal 12.0-16.0 [facility] Comment on above: Performed By: #### C BC #### [facility] [address] [address] [address] Salvador Yung IG # 0.06 10e3/ul Critically high 0.00-0.03 [facility] Comment on above: Performed By: #### C BC #### [facility] [address] [address] [address] Salvador Yung IG % 0.7 % Critically high 0.0-0.5 [facility] Comment on above: Performed By: #### C BC #### [facility] [address] [place] [address] Dr. Salvador Yung LYMPH # 1.7 103/ul Normal 1.2-3.8 [facility] Comment on above: Performed By: #### C BC #### [facility] [address] [place] [address] Dr. Salvador Yung Lymphocytes/100 WBC (Bld) 20.2 % Critically low 20.5-60.0 [facility] Comment on above: Performed By: #### C BC #### [facility] [address] [place] [address] Dr. Salvador Yung MANUAL DIFF REQ NO Normal [facility] Comment on above: Performed By: #### C BC #### [facility] [address] [address] [address] Salvador Yung MCH (RBC) [Entitic mass] 30.1 pg Normal 26.7-34.0 [facility] Comment on above: Performed By: #### C BC #### [facility] [address] [place] [address] Dr. Salvador Yung MCHC (RBC) [Mass/Vol] 32.0 g/dL Normal 29.9-35.2 [facility] Comment on above: Performed By: #### C BC #### [facility] [address] [place] [address] Dr. Salvador Yung MCV (RBC) [Entitic vol] 93.9 fL Normal 81.0-99.0 [facility] Comment on above: Performed By: #### C BC #### [facility] [address] [place] [address] Dr. Salvador Yung MONO # 0.5 103/ul Normal 0.3-0.8 [facility] Comment on above: Performed By: #### C BC #### [facility] [address] [place] [address] Dr. Salvador Yung Monocytes/100 WBC (Bld) 6.1 % Normal 1.7-12.0 [facility] Comment on above: Performed By: #### C BC #### [facility] [address] [place] [address] Dr. Salvador Yung NEUT # 6.1 103/ul Normal 1.4-6.5 [facility] Comment on above: Performed By: #### C BC #### [facility] [address] [place] [address] Dr. Salvador Yung Neutrophils/100 WBC (Bld) 71.8 % Normal 43.0-75.0 [facility] Comment on above: Performed By: #### C BC #### [facility] [address] [place] [address] Dr. Salvador Yung Platelet mean volume (Bld) [Entitic vol] 8.2 fL Critically low 9.5-13.5 [facility] Comment on above: Performed By: #### C BC #### [facility] [address] [place] [address] Dr. Salvador Yung PLT 246 103/ul Normal 150-450 [facility] Comment on above: Performed By: #### C BC #### [facility] [address] [place] [address] Dr. Salvador Yung RBC 4.59 106/ul Normal 4.20-5.40 [facility] Comment on above: Performed By: #### C BC #### [facility] [address] [place] [address] Dr. Salvador Yung WBC 8.5 103/ul Normal 4.0-11.0 [facility] Comment on above: Performed By: #### C BC #### [facility] [address] [address] [address] Salvador Yung FREE T3on 05-21-2022 FREE T3 2.14 pg/mlL Critically low 2.18-3.98 [facility] Comment on above: Performed By: #### P OCGLUC #### [facility] [address] [address] [address] Salvador Yung GLYCOHEMOGLOBIN A1Con 2022 ADA RECOMMENDATION SEE BELOW Normal [facility] Comment on above: Result Comment: ADA RECOMMENDED LIMIT 4.0 - 6.0 ADA THERAPEUTIC TARGET < 7.0 ACTION SUGGESTED > 7.0 Performed By: #### P OCGLUC #### [facility] [address] [place] [address] Dr. Salvador Yung Glucose [Mass/Vol] 100 mg/dL Normal [facility] Comment on above: Performed By: #### P OCGLUC #### [facility] [address] [address] [address] Salvador Yung HbA1c (Bld) [Mass fraction] 5.1 % Normal 4.5-6.2 [facility] Comment on above: Performed By: #### P OCGLUC #### [facility] [address] [place] [address] Dr. Salvador Yung LIPID PROFILEon 05-21-2022 CHOL-HDL RATIO NORM SEE BELOW Normal [facility] Comment on above: Result Comment: 3.3 - 4.4 LOW RISK 4.4 - 7.1 AVERAGE RISK 7.1 - 11.0 MODERATE RISK >11.0 HIGH RISK Performed By: #### P OCGLUC #### [facility] [address] [place] [address] Dr. Salvador Yung Cholesterol [Mass/Vol] 164 mg/dL Normal <=200 [facility] Comment on above: Performed By: #### P OCGLUC #### [facility] [address] [address] [address] Salvador Yung Cholesterol in HDL [Mass/Vol] 61 mg/dL Critically high 40-60 [facility] Comment on above: Performed By: #### P OCGLUC #### [facility] [address] [address] [address] Salvador Yung Cholesterol in LDL [Mass/Vol] 90.2 mg/dL Normal [facility] Comment on above: Performed By: #### P OCGLUC #### [facility] [address] [address] [address] Salvador Yung Cholesterol.total/Cho lesterol in HDL [Mass ratio] 2.7 {ratio} Normal [facility] Comment on above: Performed By: #### P OCGLUC #### [facility] [address] [address] [address] Salvador Yung HDL NORMAL > or = 60 mg/dl - LO W CARDIOVASCULAR RISK <40 mg/dl - HIGH CARDIOVASCULAR RISK Normal [facility] Comment on above: Performed By: #### P OCGLUC #### [facility] [address] [address] [address] Salvador Yung LDL CALC NORMAL SEE BELOW Normal [facility] Comment on above: Result Comment: <100 mg/dl OPTIMAL 100 - 129 mg/dl NEAR OR ABOVE OPTIMAL 130 - 159 mg/dl BORDERLINE HIGH 160 - 189 mg/dl HIGH >190 mg/dl VERY HIGH Performed By: #### P OCGLUC #### [facility] [address] [address] [address] Salvador Yung Triglyceride [Mass/Vol] 64 mg/dL Normal <=150 [facility] Comment on above: Performed By: #### P OCGLUC #### [facility] [address] [address] [address] Salvador Yung VLDL CALC 12.8 mg/dL Normal [facility] Comment on above: Performed By: #### P OCGLUC #### [facility] [address] [address] [address] Salvador Yung PROF 14(COMP METB)on 023 Albumin [Mass/Vol] 3.2 g/dL Critically low 3.4-5.0 [facility] Comment on above: Performed By: #### P OCGLUC #### [facility] [address] [address] [address] Salvador Yung Albumin/Globulin [Mass ratio] 0.7 {ratio} Normal [facility] Comment on above: Performed By: #### P OCGLUC #### [facility] [address] [address] [address] Salvador Yung ALP [Catalytic activity/Vol] 68 U/L Normal 46-116 [facility] Comment on above: Performed By: #### P OCGLUC #### [facility] [address] [address] [address] Salvador Yung ALT [Catalytic activity/Vol] 25 U/L Normal 14-59 [facility] Comment on above: Performed By: #### P OCGLUC #### [facility] [address] [place] [address] Dr. Salvador Yung Anion gap [Moles/Vol] 11.8 mmol/L Normal [facility] Comment on above: Performed By: #### P OCGLUC #### [facility] [address] [place] [address] Dr. Salvador Yung AST [Catalytic activity/Vol] 20 U/L Normal 15-37 [facility] Comment on above: Performed By: #### P OCGLUC #### [facility] [address] [place] [address] Dr. Salvador Yung Bilirubin [Mass/Vol] 0.5 mg/dL Normal 0.2-1.0 [facility] Comment on above: Performed By: #### P OCGLUC #### [facility] [address] [address] [address] Salvador Yung Calcium [Mass/Vol] 8.9 mg/dL Normal 8.5-10.1 [facility] Comment on above: Performed By: #### P OCGLUC #### [facility] [address] [address] [address] Salvador Yung Chloride [Moles/Vol] 105 mmol/L Normal 98-107 [facility] Comment on above: Performed By: #### P OCGLUC #### [facility] [address] [place] [address] Dr. Salvador Yung CO2 [Moles/Vol] 29.9 mmol/L Normal 21.0-32.0 [facility] Comment on above: Performed By: #### P OCGLUC #### [facility] [address] [address] [address] Salvador Yung Creatinine [Mass/Vol] 0.74 mg/dL Normal 0.55-1.02 [facility] Comment on above: Performed By: #### P OCGLUC #### [facility] [address] [address] [address] Salvador Yung EGFR-AF BOTSWANAN >60 Normal >=60 [facility] Comment on above: Performed By: #### P OCGLUC #### [facility] [address] [address] [address] Salvador Yung EGFR-NON AF BOTSWANAN >60 Normal >=60 [facility] Comment on above: Performed By: #### P OCGLUC #### [facility] [address] [address] [address] Salvador Yung Globulin (S) [Mass/Vol] 4.3 g/dL Normal [facility] Comment on above: Performed By: #### P OCGLUC #### [facility] [address] [address] [address] Salvador Yung Glucose [Mass/Vol] 88 mg/dL Normal 74-106 [facility] Comment on above: Performed By: #### P OCGLUC #### [facility] [address] [address] [address] Salvador Yung Potassium [Moles/Vol] 3.7 mmol/L Normal 3.5-5.1 [facility] Comment on above: Performed By: #### P OCGLUC #### [facility] [address] [address] [address] Salvador Yung Protein [Mass/Vol] 7.5 g/dL Normal 6.4-8.2 [facility] Comment on above: Performed By: #### P OCGLUC #### [facility] [address] [address] [address] Salvador Yung Sodium [Moles/Vol] 143 mmol/L Normal 136-145 [facility] Comment on above: Performed By: #### P OCGLUC #### [facility] [address] [place] [address] Dr. Salvador Yung Urea nitrogen [Mass/Vol] 11.0 mg/dL Normal 7.0-18.0 [facility] Comment on above: Performed By: #### P OCGLUC #### [facility] [address] [place] [address] Dr. Salvador Yung Urea nitrogen/Creatinine [Mass ratio] 14.9 mg/mg Normal [facility] Comment on above: Performed By: #### P OCGLUC #### [facility] [address] [place] [address] Dr. Salvador Yung T4on 05-21-2022 T4 [Mass/Vol] 11.60 ug/dL Normal 4.80-13.90 [facility] Comment on above: Performed By: #### P OCGLUC #### [facility] [address] [place] [address] Dr. Salvador Yung TSHon 05-21-2022 TSH 0.165 uIU/mL Critically low 0.358-3.740 [facility] Comment on above: Performed By: #### P OCGLUC #### [facility] [address] [place] [address] Dr. Salvador Yung VC ENDOVENOUS ABL 1ST V RTon 05-21-2022 VC ENDOVENOUS ABL 1ST V RT Patient: LEELEE CEDILLO Exam Date: 05/21/2022 : 1950 Gender:F Ordering : DR ALFRED UMAÑA M.D. Admission #: [id number] Family : Order #: [id number] CLICK HERE TO VIEW EXAM RADIOLOGY REPORT [...] MD on 05/21/2022 at 13:51 Normal [facility] VITAMIN D 25 OHon 05-21-2022 VIT D 25-OH 25.1 ng/mL Normal [facility] Comment on above: Performed By: #### V ITAD #### [facility] [address] [place] [address] Dr. Salvador Yung VIT D RANGES SEE BELOW Normal [facility] Comment on above: Result Comment: <20 ng/mL Vit D deficient 20 - <30 ng/mL Vit D insufficient 30 - 100 ng/mL Vit D sufficient >100 ng/mL Potential Toxicity Performed By: #### V ITAD #### [facility] [address] [place] [address] Dr. Salvador Yung XR HIP LT 2 [...] MARI LORENZO Date: 2022-05-21 16:26 Normal [facility] VC COMP CONSULTATIONon 05-01 VC COMP CONSULTATION Patient: REAGAN CEDILLO Exam Date: 05/01/2022 : 1950 Gender:F Ordering : DR. ADELE FLEMING D.P.MKimberlee Admission #: [id number] Family : Order #: [id number] CLICK HERE [...] small saphenous vein, right lower extremity incompetent shop mechanic veins, and bilateral lower extremity incompetent branch [...] arterial disease 5. CEAP: C6, EC, AP, CA PLAN: 1. Continued use of compression stockings 2. Elevated legs and increased physical activity symptomatic relief 3. Endovenous laser ablation of right small saphenous vein and shop mechanic vein. 4. Microfoam chemical ablation of dilated, [...] Lobato M.D. on 05/01/2022 at 15:27 Normal [facility] VC VENOUS REFLUX SAMI LMTon 0 05-01-2022 VC VENOUS REFLUX SAMI LMT Patient: LEELEE CEDILLO Exam Date: 05/01/2022 : 1950 Gender:F Ordering : DR. ADELE FLEMING D.P.M. Admission #: [id number] Family : DR ALFRED UMAÑA M.D. Order #: [id number] CLICK HERE TO VIEW EXAM RADIOLOGY REPORT [...] chronic thrombus visualized Compressibility: Normal Flow: Normal Benzene Washer: Dist/med calf 2.6mm with 0s reflux. Mid/med calf 3.5mm with 0s reflux. Tech Note: GSV has been previously stripped. Patent varicose vein mid/med calf 2.3mm with 0.5s reflux. Patent varicose vein prox/med calf 3.4mm with 1.2s reflux. Patent varicose vein dist/med thigh 5.4mm with 0.8s reflux. CONCLUSION: 1. Dilated, incompetent right small saphenous vein. 2. Dilated, incompetent shop mechanic veins and bilateral lower extremity branch saphenous varicosities. 3. Consultation for endovenous laser ablation is recommended. Dictated by: Julio Lobato M.D. on 05/01/2022 at 14:06 Approved by: Julio Lobato M.D. on 05/01/2022 at 14:28 Normal [facility] BLEEDING TIMEon 03-06-2022 BLEEDING TIME 10.5 min Critically high 1.0-8.0 [facility] Comment on above: Performed By: #### B LTM #### [facility] [address] [place] [address] Dr. Salvador Yung CBC AUTO DIFFon 03-06-2022 BASO # 0.1 103/ul Normal 0.0-0.1 [facility] Comment on above: Performed By: #### C BC #### [facility] [address] [place] [address] Dr. Salvador Yung Basophils/100 WBC (Bld) 0.7 % Normal 0.2-2.0 [facility] Comment on above: Performed By: #### C BC #### [facility] 15 [place] [address] Dr. Salvador Yung EO # 0.1 103/ul Normal 0.0-0.7 [facility] Comment on above: Performed By: #### C BC #### [facility] [address] [place] [address] Dr. Salvador Yung Eosinophils/100 WBC (Bld) 0.7 % Critically low 0.9-7.0 [facility] Comment on above: Performed By: #### C BC #### [facility] [address] [place] [address] Dr. Salvador Yung Erythrocyte distribution width (RBC) [Ratio] 12.9 % Normal 11.0-15.0 [facility] Comment on above: Performed By: #### C BC #### [facility] [address] [place] [address] Dr. Salvador Yung Hematocrit (Bld) [Volume fraction] 41.3 % Normal 36.0-48.0 [facility] Comment on above: Performed By: #### C BC #### [facility] [address] [place] [address] Dr. Salvador Yung Hemoglobin (Bld) [Mass/Vol] 13.7 g/dL Normal 12.0-16.0 [facility] Comment on above: Performed By: #### C BC #### [facility] [address] [place] [address] Dr. Salvador Yung IG # 0.05 10e3/ul Critically high 0.00-0.03 [facility] Comment on above: Performed By: #### C BC #### [facility] [address] [place] [address] Dr. Salvador Yung IG % 0.7 % Critically high 0.0-0.5 [facility] Comment on above: Performed By: #### C BC #### [facility] [address] [place] [address] Dr. Salvador Yung LYMPH # 1.4 103/ul Normal 1.2-3.8 [facility] Comment on above: Performed By: #### C BC #### [facility] [address] [place] [address] Dr. Salvador Yung Lymphocytes/100 WBC (Bld) 18.9 % Critically low 20.5-60.0 [facility] Comment on above: Performed By: #### C BC #### [facility] [address] [place] [address] Dr. Salvador Yung MANUAL DIFF REQ NO Normal [facility] Comment on above: Performed By: #### C BC #### [facility] [address] [place] [address] Dr. Salvador Yung MCH (RBC) [Entitic mass] 30.3 pg Normal 26.7-34.0 [facility] Comment on above: Performed By: #### C BC #### [facility] [address] [place] [address] Dr. Salvador Yung MCHC (RBC) [Mass/Vol] 33.2 g/dL Normal 29.9-35.2 [facility] Comment on above: Performed By: #### C BC #### [facility] [address] [place] [address] Dr. Salvador Yung MCV (RBC) [Entitic vol] 91.4 fL Normal 81.0-99.0 [facility] Comment on above: Performed By: #### C BC #### [facility] [address] [place] [address] Dr. Salvador Yung MONO # 0.7 103/ul Normal 0.3-0.8 [facility] Comment on above: Performed By: #### C BC #### [facility] [address] [place] [address] Dr. Salvador Yung Monocytes/100 WBC (Bld) 9.9 % Normal 1.7-12.0 [facility] Comment on above: Performed By: #### C BC #### [facility] [address] [place] [address] Dr. Salvador Yung NEUT # 5.2 103/ul Normal 1.4-6.5 [facility] Comment on above: Performed By: #### C BC #### [facility] [address] [place] [address] Dr. Salvador Yung Neutrophils/100 WBC (Bld) 69.1 % Normal 43.0-75.0 [facility] Comment on above: Performed By: #### C BC #### [facility] [address] [place] [address] Dr. Salvador Yung Platelet mean volume (Bld) [Entitic vol] 7.9 fL Critically low 9.5-13.5 [facility] Comment on above: Performed By: #### C BC #### [facility] [address] [place] [address] Dr. Salvador Yung PLT 223 103/ul Normal 150-450 [facility] Comment on above: Performed By: #### C BC #### [facility] [address] [place] [address] Dr. Salvador Yung RBC 4.52 106/ul Normal 4.20-5.40 [facility] Comment on above: Performed By: #### C BC #### [facility] [address] [place] [address] Dr. Salvador Yung WBC 7.5 103/ul Normal 4.0-11.0 [facility] Comment on above: Performed By: #### C BC #### [facility] [address] [place] [address] Dr. Salvador Yung IRONon 03-06-2022 Iron [Mass/Vol] 83.0 ug/dL Normal 50.0-170.0 [facility] Comment on above: Performed By: #### I ESTEFANY #### [facility] [address] [place] [address] Dr. Salvador Yung PROTIMEon 03-06-2022 INR Coag (PPP) [Relative time] 0.95 {INR} Normal [facility] Comment on above: Performed By: #### P TT, PT #### [facility] [address] [place] [address] Dr. Salvador Yung INR GUIDELINES SEE BELOW Normal [facility] Comment on above: Result Comment: YOJANA RED INR: 2.0 - 3.0 CONDITIONS NOT LISTED BELOW 2.5 - 3.5 FOR PROSTHETIC HEART VALVE REPLACEMENT 2.5 - 3.5 RECURRENT THROMBOSIS Performed By: #### P TT, PT #### [facility] [address] [address] [address] Salvador Yung PT Coag (PPP) [Time] 10.3 s Normal 9.0-11.6 [facility] Comment on above: Performed By: #### P TT, PT #### [facility] [address] [place] [address] Dr. Salvador Yung PTTon 03-06-2022 aPTT Coag (Bld) [Time] 22.1 s Critically low 22.3-36.2 [facility] Comment on above: Performed By: #### P TT, PT #### [facility] [address] [place] [address] Dr. Salvador Yung SCREENING MAMMOGRAM W/DANIEL, BILATERAL*on [...] IS VERY IMPORTANT TO YOUR HEALTH. CURRENT [employer] GUIDELINES RECOMMENDS ANNUAL MAMMOGRAPHY BEGINNING AT AGE 41. THIS FACILITY USUALLY USES A REMINDER SYSTEM TO ENSURE ALL POSITIONS RECEIVED REMINDER NOTIFICATIONS AT THE TIME BASED ON THE RECOMMENDATIONS OF THIS EXAM. Report reported and signed by Julio Martines on 02/28/2022 1602 Normal [facility] Development Manager Covid-19 PCR (CVDTBH)on 12-19 SARS-CoV-2 (COVID-19) RNA VIVIANA+probe Ql (Unsp spec) Not detected Normal NOT DETECTED [facility] Comment on above: Result Comment: This test is not yet approved or cleared by the [place] FDA. When there are no FDA-approved or cleared tests available, and other criteria are met, FDA can make tests available under an emergency access mechanism called an Emergency Use Authorization (EUA). The EUA for this test is supported by the [place] of Health and Human Service's (HHS's) declaration [...] SARS-CoV-2. Performed By: #### P OCGLUC #### [facility] [address] [place] [address] Dr. Salvador Yung [facility] HISTORY: Chronic low back pain with left leg pain. Prior low back surgery. Lumbar disc disease. [facility]: 12/09/2021 10:11 AM EDT COMPARISON: MRI [...] SARA LAUREN Date: 2021-12-10 12:11 Normal [facility] COVID-19 Positive/Negativeon 05-04-2020 COVID-19 Positive/Negative Negative Negative [facility] Comment on above: Testing for SARS-CoV -2 by RT-PCRThis test was developed and its performance characteristics determined by [employer] ([employer]) and validated at the [facility]. This test has not been [...] Otheron 05-04-2020 Coronavirus 2019 PCR Interp N/A [facility] Automated basophil %on 04-24 Basophils/100 WBC (Bld) 0.6 % [facility] Automated basophil counton 0 04-24-2020 Basophils (Bld) [#/Vol] 0.0 10*3/uL 0.0-0.2 [facility] Automated blood lymphocyte c ount (number/volume)on 04-24-2020 Lymphocytes (Bld) [#/Vol] 1.0 10*3/uL 1.00-4.8 [facility] Automated blood lymphocyte c ount as percentage of total leukocyteson 04-24-2020 Lymphocytes/100 WBC (Bld) 17.0 % [facility] Automated blood monocyte cou nton 04-24-2020 Monocytes (Bld) [#/Vol] 0.3 10*3/uL 0.0-0.8 [facility] Automated blood platelet cou nt (count/volume)on 04-24-2020 Platelets (Bld) [#/Vol] 224 10*3/uL 150-450 [facility] Automated blood platelet vikki n volume measurementon 04-24-2020 Platelet mean volume (Bld) [Entitic vol] 7.2 fL 6.3-10.7 [facility] Automated eosinophil %on Eosinophils/100 WBC (Bld) 3.5 % [facility] Automated eosinophil counton 04-24-2020 Eosinophils (Bld) [#/Vol] 0.2 10*3/uL 0.0-0.45 [facility] Automated erythrocyte distri bution width ratioon 04-24-2020 Erythrocyte distribution width (RBC) [Ratio] 13.0 % 11.9-15.3 [facility] Automated erythrocyte mean c orpuscular hemoglobin (mass per erythrocyte)on 04-24-2020 MCH (RBC) [Entitic mass] 27.7 pg 24.7-34.3 [facility] Automated erythrocyte mean c orpuscular hemoglobin concentration measurement (mass/volon 04-24-2020 MCHC (RBC) [Mass/Vol] 33.2 g/dL 32.0-35.0 [facility] Automated erythrocyte mean c orpuscular volumeon 04-24-2020 MCV (RBC) [Entitic vol] 83.3 fL 80-100 [facility] Automated erythrocytes count in urine sediment (number/area)on 04-24-2020 RBC Auto (Urine sed) [#/Area] None seen [HPF] [facility] Automated leukocytes count i n urine sediment (number/area)on 04-24-2020 WBC Auto (Urine sed) [#/Area] 0-1 [HPF] [facility] Automated monocyte %on 04-24 Monocytes/100 WBC (Bld) 6.1 % [facility] Automated neutrophil %on Neutrophils/100 WBC (Bld) 72.8 % [facility] Automated urine color determ inationon 04-24-2020 Color (U) Yellow Yellow [facility] Blood erythrocytes automated count (number/volume)on 04-24-2020 RBC (Bld) [#/Vol] 4.50 10*6/uL 3.60-5.00 [facility] Blood hemoglobin measurement (mass/volume)on 04-24-2020 Hemoglobin (Bld) [Mass/Vol] 12.5 g/dL 11.8-15.4 [facility] Blood leukocytes automated c ount (number/volume)on 04-24-2020 WBC (Bld) [#/Vol] 5.7 10*3/uL 3.8-11.6 [facility] Blood neutrophil count by au tomated method (number/volume)on 04-24-2020 Neutrophils (Bld) [#/Vol] 4.2 10*3/uL 1.8-7.7 [facility] Estimated glomerular filtrat ion rate (GFR) non- Americanon 04-24-2020 GFR/1.73 sq M predicted among non-blacks MDRD (S/P/Bld) [Vol rate/Area] mL/min/{1.73_m2} [facility] Hematocrit [Volume Fraction] of Blood by Automated counton 04-24-2020 Hematocrit (Bld) [Volume fraction] 37.5 % 34.0-46.4 [facility] Otheron 04-24-2020 GFR/1.73 sq M.predicted MDRD (S/P/Bld) [Vol rate/Area] mL/min/{1.73_m2} [facility] Comment on above: GFR estimated refere nce range: According to KDOQI guidelines, <60 ml/min/1.73m2 is sufficient to diagnose a patient with chronic kidney disease. Nucleated RBC/100 WBC (Bld) [Ratio] 0.1 % 0-0.5 [facility] Creatinine Clearance (Chem N/A [facility] Serum or plasma calcium kelly urement (mass/volume)on 04-24-2020 Calcium [Mass/Vol] 9.3 mg/dL 8.2-10.2 [facility] Serum or plasma chloride vikki surement (moles/volume)on 04-24-2020 Chloride [Moles/Vol] 101 mmol/L 95-114 [facility] Serum or plasma creatinine m easurement with calculation of estimated glomerular filtron 04-24-2020 Creatinine [Mass/Vol] 0.88 mg/dL 0.44-1.03 [facility] Serum or plasma glucose kelly urement (mass/volume)on 04-24-2020 Glucose [Mass/Vol] 116 mg/dL 70-100 [facility] Comment on above: ADA recommended refe rence rangeRandom Glucose Reference Range is dependent on time and content of last meal. Glucose of more than 200 mg/dL in a nonstressed, ambulatory subject supports the diagnosis of Diabetes Mellitus. Serum or plasma potassium me asurement (moles/volume)on 04-24-2020 Potassium [Moles/Vol] 3.8 mmol/L 3.5-5.1 [facility] Serum or plasma sodium measu rement (moles/volume)on 04-24-2020 Sodium [Moles/Vol] 136 mmol/L 136-146 [facility] Serum or plasma total carbon dioxide measurement (moles/volume)on 04-24-2020 CO2 [Moles/Vol] 23.1 mmol/L 22.0-30.0 [facility] Serum or plasma urea nitroge n measurement (mass/volume)on 04-24-2020 Urea nitrogen [Mass/Vol] 10 mg/dL 9-23 [facility] Specific gravity of Urine by Automated test stripon 04-24-2020 Specific gravity (U) [Rel density] 1.007 1.001-1.030 [facility] Squamous epithelial cells de tection in urine sediment by light microscopyon 04-24-2020 Epithelial cells.squamous LM Ql (Urine sed) None seen [HPF] [facility] Urinalysison 04-24-2020 Hyaline casts LM Ql (Urine sed) None seen [LPF] [facility] Urine bacteria detection by automated methodon 04-24-2020 Bacteria Auto Ql (U) None seen None Seen [facility] Urine clarity by refractomet ry automatedon 04-24-2020 Clarity Refractometry automated (U) Clear Clear [facility] Urine glucose measurement by automated test strip (mass/volume)on 04-24-2020 Glucose Auto test strip (U) [Mass/Vol] Normal mg/dL Normal [facility] Urine hemoglobin detection b y automated test stripon 04-24-2020 Hemoglobin Auto test strip Ql (U) Negative Negative [facility] Urine ketones measurement by automated test strip (mass/volume)on 04-24-2020 Ketones (U) [Mass/Vol] Negative Negative [facility] Urine leukocyte esterase det ection by automated test stripon 04-24-2020 Leukocyte esterase Auto test strip Ql (U) 1+ Negative [facility] Urine nitrite detection by t est stripon 04-24-2020 Nitrite Ql (U) Negative Negative [facility] Urine pH measurement by auto mated test stripon 04-24-2020 pH (U) 5.5 [pH] 5.0-9.0 [facility] Urine protein measurement by automated test strip (mass/volume)on 04-24-2020 Protein (U) [Mass/Vol] Negative Negative [facility] Urine total bilirubin detect ion by test stripon 04-24-2020 Bilirubin Ql (U) Negative Negative [facility] Urine urobilinogen measureme nt by automated test strip (mass/volume)on 04-24-2020 Urobilinogen (U) [Mass/Vol] Normal mg/dL Normal [facility] CT L-SPINE WO CONTRASTon CT L-SPINE WO CONTRAST Patient Name: LEELEE CEDILLO STUDY: CT L-SPINE WO CONTRAST;; 10/13/2018 12:05 pm INDICATION: Low back pain LUMBAGO. COMPARISON: None. ACCESSION NUMBER(S): [id number] ORDERING CLINICIAN: HAMLET GILMAN TECHNIQUE: Axial sections [...] combination with facet joint arthropathy noted causing bofu-li-[id number] left neural foramina narrowing. Transpedicular screws of [...] left lateral recess, left neural foramina and [id number]-[id number] right neural foramina narrowing. IMPRESSION: Postoperative and [...] Electronically signed by: PATRICIA MURRAY MD Normal [facility] SPINE, ENTIRE THORACIC/LUMBA R, INCLUDE [...] pm INDICATION: LUMBAGO. COMPARISON: None ACCESSION NUMBER(S): [id number]; [id number] ORDERING CLINICIAN: HAMLET GILMAN FINDINGS: Long radiograph [...] Electronically signed by: ADELE BA MD Normal [facility] SPINE, LUMBOSACRAL; CMPLT(BE NDING)on 10-13-2018 SPINE, LUMBOSACRAL; CMPLT(BENDING) Patient Name: LEELEE CEDILLO STUDY: SPINE, ENTIRE THORACIC/LUMBAR, INCLUDE SKULL, CERVICAL ANSD SACRAL SPINE WHEN PERFORMED 2 OR 3 VIEW; SPINE, LUMBOSACRAL CMPLT(BENDING); 10/13/2018 12:05 pm INDICATION: LUMBAGO. COMPARISON: None ACCESSION NUMBER(S): [id number]; [id number] ORDERING CLINICIAN: HAMLET GILMAN FINDINGS: Long radiograph [...] 86 mm[Hg] MD Sara Vick Work Phone: [facility] 08-07-2023 11:44-0400 Heart rate 67 /min MD Sara Vick Work Phone: [facility] 08-07-2023 11:44-0400 SaO2% (BldA) [Mass fraction] 99 % MD Sara Vick Work Phone: [facility] 08-07-2023 11:44-0400 Systolic blood pressure 132 mm[Hg] MD Sara Vick Work Phone: [facility] 07-01-2023 10:26-0400 Body height 172.72 cm MD Sara Vick Work Phone: [facility] 07-01-2023 10:26-0400 Body mass index (BMI) [Ratio] 29.5 kg/m2 MD Sara Vick Work Phone: [facility] 07-01-2023 10:26-0400 Body temperature 97.2 [degF] MD Sara Vick Work Phone: [facility] 07-01-2023 10:26-0400 Body weight 87.99 kg MD Sara Vick Work Phone: [facility] 07-01-2023 10:26-0400 Diastolic blood pressure 78 mm[Hg] MD Sara Vick Work Phone: [facility] 07-01-2023 10:26-0400 Heart rate 78 /min MD Sara Vick Work Phone: [facility] 07-01-2023 10:26-0400 SaO2% (BldA) [Mass fraction] 98 % MD Sara Vick Work Phone: [facility] 07-01-2023 10:26-0400 Systolic blood pressure 120 mm[Hg] MD Sara Vick Work Phone: [facility] 06-30-2023 14:39-0400 Diastolic blood pressure 70 mm[Hg] MD Sara Vick Work Phone: [facility] 06-30-2023 14:39-0400 Heart rate 75 /min MD Sara Vick Work Phone: [facility] 06-30-2023 14:39-0400 SaO2% (BldA) [Mass fraction] 99 % MD Sara Vick Work Phone: [facility] 06-30-2023 14:39-0400 Systolic blood pressure 110 mm[Hg] MD Sara Vick Work Phone: [facility] 06-24-2023 13:13-0500 Body height 172.7 cm Ghanshyam Lombardi MD Work Phone: [facility] 06-24-2023 13:13-0500 Body weight 87.4 kg Ghanshyam Lombardi MD Work Phone: [facility] 06-24-2023 13:13-0500 Diastolic blood pressure 56 mm[Hg] Ghanshyam Lombardi MD Work Phone: [facility] 06-24-2023 13:13-0500 Heart rate 93 /min Ghanshyam Lombardi MD Work Phone: [facility] 06-24-2023 13:13-0500 Respiratory rate 18 /min Ghanshyam Lombardi MD Work Phone: [facility] 06-24-2023 13:13-0500 SaO2% (BldA) [Mass fraction] 97 % Ghanshyam Lombardi MD Work Phone: [facility] 06-24-2023 13:13-0500 Systolic blood pressure 115 mm[Hg] Ghanshyam Lombardi MD Work Phone: [facility] 05-15-2023 09:00-0500 Body weight 90.18 kg Larry Brown Other [facility] [employer] Other 05-15-2023 09:00-0500 Body weight 90.17 kg MD Sara Vick Work Phone: [facility] 05-15-2023 09:00-0500 Diastolic blood pressure 86 mm[Hg] Larry Brown Other [facility] 05-15-2023 09:00-0500 SaO2% (BldA) [Mass fraction] 99 % Larry Brown Other [facility] [employer] Other 05-15-2023 09:00-0500 Systolic blood pressure 148 mm[Hg] Larry Brown Other [facility] 05-13-2023 11:15-0500 Body height 175.26 cm Kiran Kessler Other [facility] 05-13-2023 11:15-0500 Body mass index (BMI) [Ratio] 29.24 kg/m2 Kiran Kessler Other [employer] Other 05-13-2023 11:15-0500 Body temperature 96.9 [degF] Kiran Kessler Other [facility] [employer] Other 05-13-2023 11:15-0500 Body weight 89.81 kg Kiran Kessler Other [facility] 05-13-2023 11:15-0500 Diastolic blood pressure 80 mm[Hg] Kiran Kessler Other [facility] 05-13-2023 11:15-0500 SaO2% (BldA) [Mass fraction] 99 % Kiran Kessler Other [facility] [employer] Other 05-13-2023 11:15-0500 Systolic blood pressure 140 mm[Hg] Kiran Kessler Other [facility] 04-03-2023 10:15-0500 Body height 175.26 cm Larry Brown Other [employer] [facility] [employer] Other 04-03-2023 10:15-0500 Diastolic blood pressure 74 mm[Hg] Larry Brown Other [employer] [facility] [employer] Other 04-03-2023 10:15-0500 SaO2% (BldA) [Mass fraction] 99 % Larry Brown Other [employer] Other 04-03-2023 10:15-0500 Systolic blood pressure 118 mm[Hg] Larry Brown Other [employer] [facility] [employer] Other 03-25-2023 11:05-0500 Diastolic blood pressure 75 mm[Hg] MD Sara Vick Work Phone: [facility] 03-25-2023 11:05-0500 Heart rate 72 /min MD Sara Vick Work Phone: [facility] 03-25-2023 11:05-0500 Respiratory rate 18 /min MD Sara Vick Work Phone: [facility] 03-25-2023 11:05-0500 SaO2% (BldA) [Mass fraction] 97 % MD Sara Vick Work Phone: [facility] 03-25-2023 11:05-0500 Systolic blood pressure 146 mm[Hg] MD Sara Vick Work Phone: [facility] 03-25-2023 10:27-0500 Inhaled oxygen flow rate 3 L/min MD Sara Vick Work Phone: [facility] 03-25-2023 10:14-0500 Body height 173.99 cm MD Sara Vick Work Phone: [facility] 03-25-2023 10:14-0500 Body weight 88.45 kg MD Sara Vick Work Phone: [facility] 01-27-2023 14:30-0400 Body height 175.26 cm Dominique Shane Other [employer] Other 01-27-2023 14:30-0400 Diastolic blood pressure 70 mm[Hg] Dominique Shane Other [employer] Other 01-27-2023 14:30-0400 SaO2% (BldA) [Mass fraction] 98 % Dominique Shane Other [employer] Other 01-27-2023 14:30-0400 Systolic blood pressure 118 mm[Hg] Dominique Shane Other [employer] Other 01-09-2023 10:15-0400 Body height 175.26 cm Larry Brown Other [employer] Other 01-09-2023 10:15-0400 Body mass index (BMI) [Ratio] 29.56 kg/m2 Larry Brown Other [employer] Other 01-09-2023 10:15-0400 Body weight 90.81 kg Larry Brown Other [employer] Other 01-09-2023 10:15-0400 Diastolic blood pressure 78 mm[Hg] Larry Brown Other [employer] Other 01-09-2023 10:15-0400 SaO2% (BldA) [Mass fraction] 98 % Larry Brown Other [employer] Other 01-09-2023 10:15-0400 Systolic blood pressure 130 mm[Hg] Larry Brown Other [employer] Other 12-12-2022 09:30-0400 Body height 175.26 cm Larry Brown Other [employer] Other 12-12-2022 09:30-0400 Body mass index (BMI) [Ratio] 29.77 kg/m2 Larry Brown Other [employer] Other 12-12-2022 09:30-0400 Body weight 91.45 kg Larry Brown Other [employer] Other 12-12-2022 09:30-0400 Diastolic blood pressure 74 mm[Hg] Larry Brown Other [employer] Other 12-12-2022 09:30-0400 SaO2% (BldA) [Mass fraction] 99 % Larry Brown Other [employer] Other 12-12-2022 09:30-0400 Systolic blood pressure 122 mm[Hg] Larry Brown Other [employer] Other 09-19-2022 12:00-0400 Body height 175.26 cm Larry Brown Other [employer] Other 09-19-2022 12:00-0400 Body mass index (BMI) [Ratio] 30.8 kg/m2 Larry Brown Other [employer] Other 09-19-2022 12:00-0400 Body weight 94.62 kg Larry Brown Other [employer] Other 09-19-2022 12:00-0400 SaO2% (BldA) [Mass fraction] 95 % Larry Brown Other [employer] Other 09-18-2022 10:40-0400 Body height 172.7 cm Perfecto Burch MD Work Phone: [facility] 09-18-2022 10:40-0400 Body mass index (BMI) [Ratio] 31.26 kg/m2 Perfecto Burch MD Work Phone: [facility] 09-18-2022 10:40-0400 Body temperature 96.4 [degF] Perfecto Burch MD Work Phone: [facility] 09-18-2022 10:40-0400 Body weight 93.26 kg Perfecto Burch MD Work Phone: [facility] 07-27-2022 15:38-0400 Hourly Rounding Francisco Ottoniel [facility] 07-27-2022 15:38-0400 Promise to Return Francisco Ottoniel [facility] 07-27-2022 14:38-0400 Hour[employer] Rounding Francisco Ottoniel [facility] 07-27-2022 14:38-0400 Promise to Return Francisco Ottoniel [facility] 07-27-2022 13:38-0400 Hour[employer] Rounding Francisco Ottoniel [facility] 07-27-2022 13:38-0400 Promise to Return Francisco Ottoniel [facility] 07-27-2022 12:08-0400 Heart rate 106 /min Francisco Ottoniel [facility] 07-27-2022 12:08-0400 SaO2% (BldA) [Mass fraction] 100 % Francisco Ottoniel [facility] 07-27-2022 12:07-0400 Diastolic blood pressure 79 mm[Hg] Francisco Ottoniel [facility] 07-27-2022 12:07-0400 Mean blood pressure 103 mm[Hg] Francisco Ottoniel [facility] 07-27-2022 12:07-0400 Systolic blood pressure 151 mm[Hg] Francisco Ottoniel [facility] 07-27-2022 12:06-0400 Body temperature 97.16 [degF] Francisco Ottoniel [facility] 07-27-2022 07:46-0400 Heart rate 82 /min Francisco Ottoniel [facility] 07-27-2022 07:46-0400 SaO2% (BldA) [Mass fraction] 97 % Francisco Ottoniel [facility] 07-27-2022 07:46-0400 Diastolic blood pressure 81 mm[Hg] Francisco Ottoniel [facility] 07-27-2022 07:46-0400 Mean blood pressure 116 mm[Hg] Francisco Ottoniel [facility] 07-27-2022 07:46-0400 Systolic blood pressure 186 mm[Hg] Francisco Ottoniel [facility] 07-27-2022 07:45-0400 Body temperature 97.52 [degF] Francisco Ottoniel [facility] 07-27-2022 01:46-0400 Heart rate 89 /min Francisco Ottoniel [facility] 07-27-2022 01:46-0400 SaO2% (BldA) [Mass fraction] 96 % Francisco Ottoniel [facility] 07-27-2022 01:45-0400 Diastolic blood pressure 67 mm[Hg] Francisco Ottoniel [facility] 07-27-2022 01:45-0400 Mean blood pressure 89 mm[Hg] Francisco Ottoniel [facility] 07-27-2022 01:45-0400 Systolic blood pressure 134 mm[Hg] Francisco Ottoniel [facility] 07-27-2022 01:45-0400 Body temperature 98.06 [degF] Francisco Ottoniel [facility] 07-27-2022 01:45-0400 Blood Pressure Location Francisco Ottoniel [facility] 07-27-2022 01:45-0400 Respiratory rate 18 /min Francisco Ottoniel [facility] 07-26-2022 20:00-0400 Respiratory rate 16 /min Francisco Ottoniel [facility] 07-26-2022 17:20-0400 Blood Pressure Location Francisco Ottoniel [facility] 07-26-2022 17:20-0400 Heart rate 78 /min Francisco Ottoniel [facility] 07-26-2022 15:30-0400 Respiratory rate 12 /min Francisco Ottoniel [facility] 07-26-2022 15:00-0400 Mean blood pressure 122 mm[Hg] Francisco Ottoniel [facility] 07-26-2022 15:00-0400 Respiratory rate 8 /min Francisco Ottoniel [facility] 07-26-2022 14:30-0400 Mean blood pressure 112 mm[Hg] Francisco Ottoniel [facility] 07-26-2022 14:30-0400 Respiratory rate 12 /min Francisco Ottoniel [facility] 07-26-2022 13:30-0400 Mean blood pressure 95 mm[Hg] Francisco Ottoniel [facility] 07-26-2022 11:35-0400 gluc 105 mg/dL Francisco Ottoniel [facility] 07-26-2022 11:35-0400 gluc Francisco Ottoniel [facility] 07-26-2022 11:35-0400 Heart rate 72 /min Francisco Ottoniel [facility] 07-26-2022 11:35-0400 Respiratory rate 18 /min Francisco Ottoniel [facility] 05-02-2022 10:00-0500 Body height 175.26 cm Larry Brown Other [employer] [facility] [employer] Other 05-02-2022 10:00-0500 Body mass index (BMI) [Ratio] 31.89 kg/m2 Larry Brown Other [employer] [facility] [employer] Other 05-02-2022 10:00-0500 Body weight 97.98 kg Larry Carrilloky Other [employer] Other 05-02-2022 10:00-0500 Diastolic blood pressure 80 mm[Hg] Larry Brown Other [facility] [employer] Other 05-02-2022 10:00-0500 Systolic blood pressure 134 mm[Hg] Larry Brown Other [facility] [employer] Other 03-08-2022 17:00-0500 Diastolic blood pressure 117 mm[Hg] Wm Yakov [facility] 03-08-2022 17:00-0500 Mean blood pressure 131 mm[Hg] Wm Yakov [facility] 03-08-2022 17:00-0500 SaO2% (BldA) [Mass fraction] 95 % Wm Yakov [facility] 03-08-2022 17:00-0500 Systolic blood pressure 160 mm[Hg] Wm Yakov [facility] 03-08-2022 16:30-0500 Diastolic blood pressure 85 mm[Hg] Wm Yakov [facility] 03-08-2022 16:30-0500 Heart rate 75 /min Wm Yakov [facility] 03-08-2022 16:30-0500 Mean blood pressure 94 mm[Hg] Wm Yakov [facility] 03-08-2022 16:30-0500 Respiratory rate 15 /min Wm Yakov [facility] 03-08-2022 16:30-0500 SaO2% (BldA) [Mass fraction] 98 % Wm Yakov [facility] 03-08-2022 16:30-0500 Systolic blood pressure 112 mm[Hg] Wm Yakov [facility] 03-08-2022 16:10-0500 Diastolic blood pressure 74 mm[Hg] Wm Yakov [facility] 03-08-2022 16:10-0500 Heart rate 93 /min Wm Yakov [facility] 03-08-2022 16:10-0500 Mean blood pressure 90 mm[Hg] Wm Yakov [facility] 03-08-2022 16:10-0500 Respiratory rate 14 /min Wm Yakov [facility] 03-08-2022 16:10-0500 SaO2% (BldA) [Mass fraction] 98 % Wm Yakov [facility] 03-08-2022 16:10-0500 Systolic blood pressure 122 mm[Hg] Wm Yakov [facility] 03-08-2022 15:15-0500 Respiratory rate 18 /min Wm Yakov [facility] 03-08-2022 15:00-0500 Hourly Rounding Wm Yakov [facility] 03-08-2022 15:00-0500 Promise to Return Wm Yakov [facility] 03-08-2022 14:45-0500 Respiratory rate 20 /min Wm Yakov [facility] 03-08-2022 14:15-0500 Respiratory rate 20 /min Wm Yakov [facility] 03-08-2022 14:14-0500 Hourly Rounding Wm Yakov [facility] 03-08-2022 14:14-0500 Promise to Return Wm Yakov [facility] 03-08-2022 13:54-0500 Heart rate 99 /min Wm Nagy [facility] 03-08-2022 13:37-0500 Body temperature 97.7 [degF] Wm Nagy [facility] 03-08-2022 13:37-0500 Heart rate 104 /min Wm Nagy [facility] 03-08-2022 13:00-0500 Hourly Rounding Wm Nagy [facility] 03-08-2022 13:00-0500 Promise to Return Wm Nagy [facility] 03-07-2022 11:00-0500 Body height 175.26 cm Larry Stephanie Other [employer] [facility] [employer] Other 03-07-2022 11:00-0500 Body mass index (BMI) [Ratio] 32.54 kg/m2 Larry Carrilloky Other [employer] Other 03-07-2022 11:00-0500 Body weight 99.97 kg Larry Carrilloky Other [employer] Other 03-07-2022 11:00-0500 SaO2% (BldA) [Mass fraction] 99 % Larry Carrilloky Other [employer] Other 06-20-2017 09:19-0500 PAIN LEVEL 0 {score} Praveen Bynum 06-20-2017 06:29-0500 PAIN LEVEL 0 {score} Praveen Carlsona 06-20-2017 06:25-0500 PAIN LEVEL 6 {score} Praveen [...] Date Encounter Type Care Provider Facility Start: 12-29-2024 End: 12-29-2024 Transcribe Orders Sara Vick MD Work Phone: [facility]ician Referral [facility] Start: 12-27-2024 End: 12-27-2024 ambulatory Judson SAXENA Facility: [place] Start: 12-27-2024 End: 12-27-2024 Patient encounter procedure Judson SAXENA [facility] [place] Start: 12-12-2024 ambulatory Judson SAXENA Facility: [facility] [place] Start: 12-09-2024 End: 12-09-2024 ambulatory Sara Vick MD Work Phone: 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] Start: 08-07-2023 End: 08-07-2023 ambulatory MD Sara Vick Work Phone: [facility] Work Phone: Start: 08-07-2023 End: 08-07-2023 Patient encounter procedure MD Sara Vick Work Phone: [facility] [place] Work Phone: Start: 08-05-2023 End: 08-06-2023 ambulatory ANNIE JIMENEZ Not Available Start: 07-15-2023 End: 07-15-2023 ambulatory ANNIE JIMENEZ Not Available Start: 07-13-2023 End: 07-13-2023 ambulatory [facility] Facility:[facility] Start: 07-13-2023 End: 07-13-2023 Subsequent hospital visit by physician Dona [facility] D[facility] Work Phone: Radiology Comment on above: Chronic bilateral lo w back pain with bilateral sciatica [M54.42, M54.41, G89.29] Start: 07-01-2023 End: 07-01-2023 Patient encounter procedure MD Sara Vick Work Phone: [facility] Work Phone: Start: 06-30-2023 End: 06-30-2023 Patient encounter procedure MD Sara Vick Work Phone: [facility] Work Phone: Start: 06-29-2023 End: 06-29-2023 ambulatory ANNIE JIMENEZ Not Available Start: 06-24-2023 End: 06-24-2023 Patient encounter procedure Ghanshyam Lombardi MD Work Phone: [facility] Comment on above: 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 Work Phone: Start: 05-22-2023 End: 05-22-2023 Patient encounter procedure MD Sara Vick Work Phone: [facility]Ultrasound [facility] [place] Work Phone: Start: 05-20-2023 End: 05-20-2023 Discharged Recurring MD Sara Vick Work Phone: [facility] [address] Start: 05-20-2023 Registered Recurring MD Gideon Vick Work Phone: [facility] [address] Start: 05-18-2023 Patient encounter procedure MD Sara Vick Work Phone: [facility]- Start: 05-15-2023 End: 05-15-2023 ambulatory Larry Stephanie Other [employer] Other Start: 05-15-2023 Office outpatient vi sit 25 minutes Larry Stephanie [facility] [place] Start: 05-15-2023 End: 05-15-2023 Patient encounter procedure MD Sara Vick Work Phone: [facility]- Start: 05-13-2023 End: 05-13-2023 ambulatory Kiran Kessler Other [employer] Other Start: 05-13-2023 Office outpatient ne w 60 minutes Kiran Kessler [facility] Start: 05-13-2023 End: 05-13-2023 Patient encounter procedure MD Sara Vick Work Phone: [facility]- Start: 04-16-2023 End: 04-16-2023 ambulatory Dominique Shane Other [employer] Other Start: 04-16-2023 Telephone encounter Dominique Shane [facility] Start: 04-03-2023 End: 04-03-2023 ambulatory Larry Stephanie Other [employer] Other Start: 04-03-2023 Office outpatient vi sit 15 minutes Larry Stephanie [facility] [place] Start: 04-03-2023 End: 04-03-2023 Patient encounter procedure MD Sara Solomon Phone: [facility] [place] Work Phone: Start: 03-25-2023 (PROC) PROCEDURE Larry Stephanie [facility] Start: 03-25-2023 End: 03-25-2023 Admission to same day surgery center MD Sara Vick Work Phone: [facility]Digestive [facility] Work Phone: Start: 03-25-2023 End: 03-25-2023 ambulatory MD Sara Vick Work Phone: [facility] Work Phone: Start: 03-06-2023 End: 03-06-2023 Patient encounter procedure MD Sara Vick Work Phone: [facility] [place] Work Phone: Start: 02-10-2023 End: 02-10-2023 ambulatory Dominique Shane Other [employer] Other Start: 02-10-2023 Telephone encounter Dominique Shane [facility] Start: 01-27-2023 End: 01-27-2023 ambulatory Dominique Shane Other [employer] Other Start: 01-27-2023 Office outpatient vi sit 25 minutes Dominique Shane [facility] [place] Start: 01-27-2023 Telephone encounter Larry Stephanie [facility] Start: 01-09-2023 End: 01-09-2023 ambulatory Larry Brown Other [employer] Other Start: 01-09-2023 Office outpatient vi sit 25 minutes Larry Stephanie [facility] [place] Start: 12-12-2022 End: 12-12-2022 ambulatory Larry Brown Other [employer] Other Start: 12-12-2022 Office outpatient vi sit 25 minutes Larry Stephanie [facility] [place] Start: 09-19-2022 End: 09-19-2022 ambulatory Larry Brown Other [employer] Other Start: 09-19-2022 Office outpatient vi sit 25 minutes Larry Brown [facility] [place] Start: 09-18-2022 ambulatory [facility] Start: 09-18-2022 End: 09-18-2022 Office outpatient new 30 minutes Perfecto Burch MD Work Phone: [facility] Comment on above: 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, sequela (Primary Dx) Start: 09-18-2022 End: 09-18-2022 Subsequent hospital visit by physician Perfecto Burch MD Work Phone: [facility] [place] Rad[facility] Start: 09-17-2022 ambulatory ADELE FLEMING Faci lity:[facility] Start: 09-09-2022 End: 09-10-2022 ambulatory ADELE FLEMING Facility:[facility] Start: 08-18-2022 End: 08-19-2022 ambulatory ADELE FLEMING Facility:[facility] Start: 08-13-2022 ambulatory [facility] Start: 08-12-2022 End: 08-13-2022 ambulatory ADELE FLEMING Facility:[facility] Start: 08-08-2022 End: 08-09-[address] ALFRED UMAÑA Facility:[facility] Start: 08-01-2022 End: 08-02-2022 ambulatory ADELE FLEMING Facility:[facility] Start: 07-26-2022 End: 07-27-2022 Observation Francisco Alcazar [facility] Start: 07-25-2022 Encounter for preprocedural cardiovascular examination ADELE FLEMING [facility] Start: 07-25-2022 Encounter for preprocedural laboratory examination ADELE FLEMING [facility] Start: 07-24-2022 End: 07-25-2022 ambulatory ADELE [...] 06-19-2022 ambulatory MD Sara Vick Work Phone: [facility] Work Phone: Start: 06-19-2022 End: 06-19-2022 Discharged Recurring MD Sara Vick Work Phone: [facility]Physical Therapy [place] Work Phone: Start: 06-13-2022 End: 06-14-[address] ALFRED UMAÑA Facility:[facility] Start: 06-10-2022 End: 06-11-[address] ALFRED UMAÑA Facility:[facility] Start: 06-09-2022 End: 06-10-2022 ambulatory ADELE Clary BERNADETTE Facility:[facility] Start: 06-03-2022 End: 06-04-[address] ALFRED UMAÑA Facility:[facility] Start: 05-28-2022 End: 05-29-[address] ALFRED UMAÑA Facility:[facility] Start: 05-21-2022 End: 05-21-[address] AKIL ALEJANDRA Facility:[facility] Start: 05-21-2022 End: 05-22-[address] ALFRED UMAÑA Facility:[facility] Start: 05-21-2022 End: 05-22-[address] SARA VICK . Facility:[facility] Start: 05-02-2022 End: 05-02-2022 ambulatory Larry Brown Other [employer] Other Start: 05-02-2022 Office outpatient vi sit 25 minutes Larry Brown [facility] [place] Start: 05-01-2022 End: 05-02-2022 ambulatory ADELE Means [facility] Facility:[facility] Start: 04-22-2022 End: 04-23-2022 ambulatory ADELE Means [facility] Facility:[facility] Start: 04-14-2022 End: 04-15-2022 ambulatory DEEPALI JANSEN Facility:[facility] Start: 04-08-2022 (PROC) PROCEDURE Larry Brown [facility] Start: 04-08-2022 End: 04-08-2022 ambulatory Larry Stephanie Other [employer] Other Start: 03-31-2022 End: 04-01-[address] ALFRED UMAÑA Facility:[facility] Start: 03-08-2022 End: 03-08-2022 Emergency department patient visit Wm Nagy [facility] Start: 03-07-2022 End: 03-07-2022 ambulatory Larry Stephanie Other [employer] Other Start: 03-07-2022 Office consultation new/estab patient 60 min Larry Brown [facility] [place] Start: 03-06-2022 End: 03-07-[address] SARA VICK . Facility:[facility] Start: 01-03-2022 End: 01-03-[address] SARA VICK . Facility:[facility] Start: 12-09-2021 End: 12-10-2021 ambulatory SHAWANDA LITTLE Facility:[facility] Start: 11-05-2021 End: 11-06-2021 ambulatory ADELE Means [facility] Facility:[facility] Start: 10-07-2021 End: 10-07-2021 ambulatory PO SUAREZ . Facility:[facility] Start: 05-04-2020 End: 05-04-2020 Patient encounter procedure Sara Hoy -Pre-Surgical Testing Start: 05-02-2020 Registered Recurring Sara Vick -P hysical Therapy [place] Start: 04-24-2020 End: 04-24-2020 Patient encounter procedure Sara Hoy -Pre-Surgical Testing Start: 02-01-2020 End: 02-01-2020 Patient encounter procedure Sara Vick -XRay [facility] Start: 06-29-2018 Patient encounter procedure Sara~[id number] UNKNOWN [place] [facility] Start: 12-11-2017 End: 12-12-2017 Patient encounter DEFAULT PHYSICIAN Facility:[facility] Procedures Date Procedure Procedure Detail Performing Clinician Start: 08-08-2023 Mri spinal canal thoracic w/o contrast matrl Ghanshyam Lombardi MD Work Phone: Start: 07-13-2023 Ct lumbar spine w/o contrast material Ghanshyam Lombardi MD Work Phone: Start: 06-24-2023 End: 06-24-2023 Radex spine lumbosacral minimum 4 views Ros Cedeño 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 Work Phone: Start: 05-22-2023 Pulse volume recorder pneumoplethysmography MD Sara Vick Work Phone: Start: 05-22-2023 Duplex scan of lower limb veins MD Giuseppe Vick Work Phone: Start: 03-25-2023 Local anesthetic sacral epidural block MD Sara Vick Work Phone: Start: 02-01-2020 Plain X-ray of femur Sara Nicanor Start: 02-01-2020 X-ray of right knee Sara Nicanor Start: 05-11-2017 Injection of sacroiliac joint using fluoroscopic guidance Wm Nagy Comment on above: left ~ 80 % relief day 3 X2 weeks , pain starting to increase Start: 04-20-2017 Colonoscopy Judson SAXENA Start: 04-20-2017 Esophagogastroduodenoscopy Judson SAXENA Start: 03-09-2017 Transforaminal Epidural Steroid Injection 2 Wm Nagy Comment on above: Bilateral L3- 50% relief starting one we ek after procedure Start: 02-02-2017 Transforminal epidural steroid injection 3 Wm Nagy Comment on above: Left L3, L4 40% relief for couple weeks Start: 02-09-2014 Dilation and curettage of uterus Wm lara Start: 07-25-2013 lumbar fusion L4-5 Wm Yakov Start: 06-20-2013 Epidural injection of lumbar spine using fluoroscopic guidance Wm[place]hawn Nagy Comment on above: L4-5 70-80% relief and lasted 1.5 weeks Start: 04-28-2013 Epidural injection of lumbar spine using fluoroscopic guidance Wm[place]hawn Nagy Comment on above: L5-S1 50% relief Start: 02-21-2013 Injection of facet joint using fluoroscopic guidance Wm[place]hawn Nagy Comment on above: bilateral L3-S1 FJI 50% relief Start: 01-21-2013 Injection of facet joint using fluoroscopic guidance Wm[place]hawn Nagy Comment on above: bilateral L3-S1 FJI 0% relief that day, next day 40% relief and 50-60% relief Start: 01-03-2013 Epidural injection of lumbar spine using fluoroscopic guidance Wmkeshawn Nagy Comment on above: L5-S1 50% relief Start: 09-02-2012 Epidural injection of lumbar spine using fluoroscopic guidance Wmkeshawn Nagy Comment on above: L5-S1 left,, no relief, increased pain Start: 07-01-2011 History of repair of musculotendinous cuff of shoulder Status post rotator cuff surgery, right Ghanshyam Lombardi MD Work Phone: Start: 04-20-2011 Excision of ganglion cyst Wm Nagy Start: 07-03-2010 Decompression of median nerve Wm rich Start: 07-03-2010 Repair of musculotendinous cuff of shoulder Wm Nagy Start: 04-20-2007 Cholecystectomy Wm Nagy Excision of ganglion cyst Lu SAXENA Extraction of cataract Samuel SAXENA foot surgery right x3 Wm Nagy left GLORIA Wm Nagy Ligation of fallopian tube K josep Nagy Lumbar and lumbosacr al fusion by posterior technique Wm Nagy Comment on above: [address] Gilman, cleaned infection ou t 2nd surgery, infection spread removal of rib and higher fusion (3rd surgery) Percutaneous translu arielle laser ablation of varicose vein of lower limb Judson SALAZARFrida Repair of joint of left hip Judson SALAZARFrida right knee scope wit h partial meniscectomy Wm Nagy Plan of Treatment Date Care Activity Detail Author Start: 12-20-2026 RSV vaccine (adult) (1 - 1-dose 75+ series) RSV vaccine (adult) (1 - 1-dose 75+ series) [facility] Start: 01-18-2025 Influenza vaccination Influenza Vaccine (#1) [facility] Start: 12-19-2024 COVID-19 Vaccine ( season) COVID-19 Vaccine ( season) [facility] Start: 12-09-2024 Bacteria identified in Urine by Culture Urine Culture [facility] Start: 12-09-2024 Urine culture [facility] Start: 08-04-2024 Screening for malignant neoplasm of breast Mammogram Screening [facility] Start: 06-23-2024 BP Controlled (<130/80) BP Controlled (<130/80) [facility] Start: 12-20-2023 Influenza vaccination Influenza Vaccine (Season Ended) [facility] Start: 05-22-2023 Pulse volume recorder pneumoplethysmography US arterial pvr rest [facility] Start: 05-22-2023 [facility] Start: 05-22-2023 Duplex scan of lower limb veins US venous duplex LE [facility] Start: 05-22-2023 US Lower extremity vein - bilateral [facility] Start: 04-20-2023 Advance Directive Discussion Advance Directive Discussion [facility] Start: 04-20-2023 Behavioral Health Screening Behavioral Health Screening [facility] Start: 04-20-2023 Depression Assessment Depression Assessment [facility] Start: 03-25-2023 [facility] Start: 02-28-2023 Screening for malignant neoplasm of breast Mammogram Screening [facility] Start: 12-19-2022 Covid-19 Vaccine () Covid-19 Vaccine () [facility] Start: 12-19-2022 Influenza vaccination Influenza Vaccine (#1) [facility] Start: 01-28-2022 COVID-19 VACCINE (5 - Booster for Pfizer series) COVID-19 VACCINE (5 - Booster for Pfizer series) [facility] Start: 08-24-2019 Screening for malignant neoplasm of breast MAMMOGRAM SCREENING DISCUSSION [facility] Start: 12-20-2016 Screening for osteoporosis [facility] Start: 06-17-2014 Diabetes Screening Diabetes Screening [facility] Start: 2011 Hepatitis B (HBV) Vaccine (optional start 60+ years) Hepatitis B (HBV) Vaccine (optional start 60+ years) [facility] Start: 2011 RSV Vaccine (1 - 1-dose 60+ series) RSV Vaccine (1 - 1-dose 60+ series) [facility] Start: 12-20-2001 Pneumococcal vaccination Pneumococcal Vaccine(s) (50+ yrs) (1 of 1 - PCV) [facility] Start: 12-20-2001 Shingles (RZV) Vaccine (1 of 2) Shingles (RZV) Vaccine (1 of 2) [facility] Start: 12-20-2001 Shingrix Vaccine (1 of 2) Shingrix Vaccine (1 of 2) [facility] Start: 12-20-2001 Zoster vaccine hzv live for subcutaneous use ZOSTER (SHINGLES) VACCINE (1 of 2) [facility] Start: 12-20-1996 Lipid panel [facility] Start: 12-20-1996 Screening for malignant neoplasm of colon [facility] Start: 1991 Lipid panel LIPID SCREENING [facility] Start: 1991 Screening for malignant neoplasm of breast Mammography [facility] Start: 12-20-1972 Screening for malignant neoplasm of cervix CERVICAL CANCER SCREENING DISCUSSION [facility] Start: 12-20-1970 Hepatitis A (HAV) Vaccine (optional start 19+ years) Hepatitis A (HAV) Vaccine (optional start 19+ years) [facility] Start: 12-20-1970 Tetanus vaccination Tetanus (Td or Tdap) [facility] Start: 12-20-1970 Third diphtheria, tetanus and acellular pertussis (DTaP) vaccination TDAP (ADULT) [facility] Start: 12-20-1970 Urine microalbumin profile DTaP,Tdap,Td Vaccine (1 - Tdap) [facility] Start: 12-20-1969 Annual PCP Team Chronic Disease Visit Annual PCP Team Chronic Disease Visit [facility] Start: 12-20-1969 Hepatitis C screening Hepatitis C Antibody [facility] Start: 12-20-1969 Tdap Booster Tdap Booster [facility] Start: 1950 Hepatitis C screening HEPATITIS C VIRUS SCREENING [facility] Start: 1950 Screening for malignant neoplasm of colon Colonoscopy [facility] Start: 1950 Screening for osteoporosis DEXA SCAN DISCUSSION [facility] Start: 1950 Tetanus vaccination TETANUS [facility] End: 07-23-2024 CT Lumbar spine WO contrast CT LUMBAR SPINE WO IVCON Radiology Routine Chronic bilateral low back pain with bilateral sciatica 1 Occurrences starting 06/24/2023 until 07/23/2024 [facility] Work Phone: Comment on above: 1 Occurrences starting 06/24/2023 until 07/23/2024 End: 07-23-2024 MR Thoracic spine WO contrast MRI THORACIC SPINE WO IVCON Radiology Routine 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 Work Phone: Patient referral [facility] Work Phone: XR Knee - left 3 Views XR KNEE L EFT 3 VIEWS Imaging Routine Pain in prosthetic joint, sequela Ordered: 09/16/2022 [facility] Comment on above: Ordered: 09/16/2022 XR Pelvis and Hip - left Views X R HIP WITH PELVIS LEFT Imaging Routine Pain in prosthetic joint, sequela 09/18/2022 10:11 AM EDT [facility] Work Phone: [facility] Immunizations Immunization Date Immunization Notes Care Provider [facility] 02-11-2022 Influenza, injectabl e, Madin Atherton Canine Kidney, preservative free, quadrivalent MD Sara Vick Work Phone: [facility] 02-11-2022 influenza virus vacc ine, unspecified formulation Ghanshyam Lombardi MD Work Phone: [facility] 12-03-2021 COVID-19 Comirnaty (Pfizer) Tri-Sucrose 12+ MD Sara Vick Work Phone: [facility] 12-03-2021 SARS-CoV-2 mRNA (mrttbifvlkk-barc-rgnbnd e) vaccine Judson SAXENA [facility] [place] 03-25-2021 COVID-19 mRNA, Comir nicolle (Pfizer) MD Sara Vick Work Phone: [facility] 07-12-2020 COVID-19, mRNA, LNP- S, PF, 30 mcg/0.3 mL dose Wm Nagy [facility] Comment on above: Reason for Medicatio n: Prophylaxis 06-14-2020 COVID-19, mRNA, LNP- S, PF, 30 mcg/0.3 mL dose Wm Nagy [facility] Comment on above: Reason for Medicatio n: Prophylaxis 02-08-2020 Seasonal trivalent influenza vaccine, adjuvanted, preservative free MD Sara Vick Work Phone: [facility] 02-23-2018 influenza, injectabl e, madin josephine canine kidney, preservative free MD Sara Vick Work Phone: [facility] 02-18-2018 pneumococcal polysaccharide vaccine, 23 valent Wm Nagy [facility] 06-18-2017 tuberculin skin test ; unspecified formulation Praveen Bynum 02-24-2017 pneumococcal polysaccharide vaccine, 23 valent MD Sara Vick Work Phone: [facility] 02-05-2017 influenza, high dose seasonal, preservative-free MD Sara Vick Work Phone: [facility] 02-05-2017 pneumococcal conjuga te vaccine, 13 valantony Nagy [facility] [place] 02-02-2016 influenza, seasonal, injectable, preservative free MD Sara Vick Work Phone: [facility] 10-20-2012 pneumococcal polysaccharide vaccine, 23 valantony Nagy [facility] Payers Date Payer Category Payer Unknown [id number] 2024 Self-pay [id number] 2022 Private Health Insurance 2018 Medicare [id number] [id number] 1959 Private Health Insurance [id number] 1950 Unknown [id number] 2.16.840.1.651903.3.579.2.727 1951 Unknown [id number] 2.16.840.1.519706.3.579.2.159 1951 Unknown [id number] 2.16.840.1.058194.3.579.2.593 1951 Unknown [id number] 2.16.840.1.463570.3.579.2.593 1951 Unknown [id number] 2.16.840.1.773840.3.579.2.593 1951 Unknown [id number] 2.16.840.1.278520.3.579.2.593 1951 Unknown [id number] 2.16.840.1.761385.3.579.2.593 1951 Unknown [id number] 2.16.840.1.441607.3.579.2.593 1951 Unknown [id number] 2.16.840.1.183280.3.579.2.593 1951 Unknown [id number] 2.16.840.1.749411.3.579.2.593 1951 Unknown [id number] 2.16.840.1.993108.3.579.2.593 1951 Unknown [id number] 2.16.840.1.823651.3.579.2.593 1951 Unknown [id number] 2.16.840.1.171100.3.579.2.593 1951 Unknown [id number] 2.16.840.1.141785.3.579.2.593 1951 Unknown [id number] 2.16.840.1.763451.3.579.2.593 1951 Unknown [id number] 2.16.840.1.606107.3.579.2.593 1951 Unknown [id number] 2.16.840.1.285295.3.579.2.593 1951 Unknown [id number] 2.16.840.1.542072.3.579.2.593 1951 Unknown [id number] 2.16.840.1.489860.3.579.2.593 1951 Unknown [id number] 2.16.840.1.510690.3.579.2.593 1951 Unknown [id number] 2.16.840.1.527592.3.579.2.593 1951 Unknown [id number] 2.16.840.1.147154.3.579.2.593 1951 Unknown [id number] 2.16.840.1.221325.3.579.2.593 1951 Unknown [id number] 2.16.840.1.590554.3.579.2.593 1951 Unknown [id number] 2.16.840.1.599395.3.579.2.593 1951 Unknown [id number] 2.16.840.1.055924.3.579.2.593 1951 Unknown [id number] 2.16.840.1.966852.3.579.2.593 1951 Unknown [id number] 2.16.840.1.915585.3.579.2.593 1951 Unknown [id number] 2.16.840.1.565303.3.579.2.593 1951 Unknown [id number] 2.16.840.1.429701.3.579.2.593 1951 Unknown [id number] 2.16.840.1.406289.3.579.2.593 1951 Unknown [id number] 2.16.840.1.204142.3.579.2.983 1951 Unknown [id number] 2.16.840.1.100590.3.579.2.983 1951 Unknown [id number] 2.16.840.1.384354.3.579.2.983 1951 Unknown [id number] 2.16.840.1.000766.3.579.2.125 9 1951 Unknown [id number] 2.16.840.1.367766.3.579.2.125 9 1951 Unknown [id number] 2.16.840.1.705205.3.579.2.125 9 1951 Unknown [id number] 2.16.840.1.339857.3.579.2.727 Unknown Unknown [id number] Unknown [id number] Unknown [id number] Unknown HCAP/HFA/FAP Active [id number] Unknown [id number] 2.16.840.1.266453.3.579.2.531 Social History Date Type Detail Facility Start: 06-18-2017 Unknown if ever smoked [facility] Start: 04-24-2020 End: 12-22-2024 Tobacco smoking status NHIS Never smoked tobacco (finding) [facility] Start: 1950 Sex Assigned At Female F [facility] Start: 06-24-2023 Sex Assigned At F [facility] Start: 09-18-2022 Tobacco use and exposure Smoke less tobacco non-user [facility] Start: 09-18-2022 End: 06-24-2023 Alcohol intake Current drinker of alcohol (finding) [facility] Start: 09-18-2022 Alcohol Comment occasional [employer] [facility] Start: 1950 Sex Assigned At Not on file A [facility] Start: 06-24-2023 Alcohol intake Andrew means [facility] National Score (1-10 0), lower number is lower risk 62 [facility] Start: 07-08-2018 End: 12-29-2024 Sex Female (finding) [facility] Sexual Orientation [facility] [place] Medical Equipment Procedure Code Equipment Code Equipment Origin al Text Equipment Identifier Dates Arthroplasty, knee, total, minimally invasive Orthopaedic cement, non-medicated ()[id number] FDA Start: 05-07-2020 Arthroplasty, knee, total, minimally invasive Uncoated knee femur prosthesis, metallic ()[id number] FDA Start: 05-07-2020 Arthroplasty, knee, total, minimally invasive Tibial insert ()[id number] FDA Start: 05-07-2020 Arthroplasty, knee, total, minimally invasive Uncoated knee tibia prosthesis, metallic ()[id number] FDA Start: 05-07-2020 Arthroplasty, knee, total, minimally invasive Polyethylene patella prosthesis ()[id number] FDA Start: 05-07-2020 Goals Date Patient Goal Desired Activity /State Functional Status Date Assessment Result Facility 07-26-2022 Functional Status No [facility] 07-26-2022 Functional Status [facility] 03-08-2022 Functional Status No [facility] Clinical Notes 10-07-2021 to 08-08-2023 [...] PATIENT PRESENTS WITH AN IMPLANTABLE OR ATTACHED CLINICAL LABORATORY MEDICAL DIRECTOR: No RADIOLOGY DEPARTMENT: MR; Exam(s) Completed: Spine: Thoracic spine PERIPHERAL IV DATA: Not applicable SIGNED BY: BAY Leo) August 08, 2023 3:59 PM documented in this encounter [facility] 08-08-2023 Note HNO ID: [id number] Author: FLOR ZIEGLER RT (R) Service: Radiology [...] PATIENT PRESENTS WITH AN IMPLANTABLE OR ATTACHED CLINICAL LABORATORY MEDICAL DIRECTOR: No RADIOLOGY DEPARTMENT: MR; Exam(s) Completed: Spine: Thoracic spine PERIPHERAL IV DATA: Not applicable SIGNED BY: BAY Leo) August 08, 2023 3:59 PM [facility] 07-13-2023 History of Present illness Narrative [...] PATIENT PRESENTS WITH AN IMPLANTABLE OR ATTACHED CLINICAL LABORATORY MEDICAL DIRECTOR: No RADIOLOGY DEPARTMENT: CT; Exam(s) Completed: Spine PERIPHERAL IV DATA: Not applicable SIGNED BY: BAY Saez) July 13, 2023 10:44 AM documented in this encounter [facility] 07-13-2023 Note HNO ID: [id number] Author: TORRIE ABRAHAM RT (R) Service: Radiology Author Type: Technologist [...] PATIENT PRESENTS WITH AN IMPLANTABLE OR ATTACHED CLINICAL LABORATORY MEDICAL DIRECTOR: No RADIOLOGY DEPARTMENT: CT; Exam(s) Completed: Spine PERIPHERAL IV DATA: Not applicable SIGNED BY: BAY Saez) July 13, 2023 10:44 AM [facility] 06-24-2023 Note HNO ID: [id number] Author: GHANSHYAM LOMBARDI MD Service: ? Author [...] discussion. 30 minutes spent Ghanshyam Lombardi MD [facility] 06-24-2023 History of Present illness Narrative [...] Ghanshyam Lombardi MD documented in this encounter [facility] 05-15-2023 Evaluation note Encounter Date Diagnosis [...] In the meantime, she can continue taking Camden as needed all as well as Gabapentin [...] and no personal patient information was compromised. [employer] Other 01-24-2024 Evaluation note* Encounter Date Diagnosis [...] agrees with plan all questions were addressed. [employer] Other 12-28-2023 Evaluation note* Encounter Date Diagnosis Assessment Notes Treatment Notes Treatment Clinical Notes Mar, Lumbar radiculopathy (ICD-10 - M54.16) 72 year old female evaluated via telephonic call for follow up and medication refill for chronic pain. She voices complaints of low back pain with intermittent radiation down the right lower extremity. She continues taking Camden with relief and is requesting a refill of this today. I discussed different treatment options in detail with the patient. She feels medication is managing her pain and does not wish to proceed with injections at this time. I encouraged the patient to start physical therapy as previously discussed. She can also continue taking medications as prescribed and I will refill her Camden as she feels this provides an element [...] pain (ICD-10 - G89.29) Continue medication management. [facility] Other 12-15-2023 Evaluation note* Encounter Date Diagnosis [...] pain (ICD-10 - G89.29) Continue medication management. [facility] Other 10-24-2023 Evaluation note* Encounter Date Diagnosis Assessment Notes Treatment Notes Treatment Clinical Notes Jan, Lumbar radiculopathy (ICD-10 - M54.16) [facility] Other 10-10-2023 Evaluation note* Encounter Date Diagnosis [...] regarding this. Meanwhile, I will refill her Camden as it does provide an element of [...] educated on the risks and benefits of mcc opioid use. Hydrocodone/Acetamin ophen was refilled today, opioid risk assessment was done as well as pill count. Patient is compliant with opioid medication. The patient denies any opioid related side effects. [facility] Other 09-22-2023 Evaluation note* Encounter Date Diagnosis [...] educated on the risks and benefits of mcc opioid use. Hydrocodone/Aceta minophen was refilled today, opioid risk assessment was done as well as pill count. Patient is compliant with opioid medication. The patient denies any opioid related side effects. Patients last urine drug screen was positive for alcohol, she is counselled against consuming alcohol. [facility] Other 08-25-2023 Evaluation note* Encounter Date Diagnosis [...] M51.36) Stable, follow up in 4 weeks. [facility] Other 06-02-2023 Evaluation note* Encounter Date Diagnosis [...] nerve blocks in the future if needed. [facility] Other 06-01-2023 History of Present illness Narrative* [...] 09/18/2022 10:58 AM Patient: Leelee Cedillo MR#: [id number] : 1950 Age: 71 y.o. Referring Physician: [...] repair GALL BLADDER SURGERY 1999 BACK SURGERY [id number]- FOOT SURGERY [id number] Family History: Her family history is not [...] [x]cane, []bracing Are you followed by a liquor stores and agencies supervisor? [] [x] Name: Are you followed by pain management? [x] [] Name: Dr. Low---[place] Are you followed by any other specialists? [x] [] Name: Dr. Pond-- [place] [facility] Medications Prior to Visit Medication Sig [...] repair GALL BLADDER SURGERY 1999 BACK SURGERY 4-1700-5-2017- FOOT SURGERY [id number] No family history on file. Social History [...] Rash Flagyl [Metronidazole] Dyspepsia [facility] Discharge instructions Patient Education 07/27/2022 [...] Follow these instructions at home: Medicines Take npac-shc-cwjoujv and prescription medicines only as told by [...] 04/06/2006 Document Revised: 07/29/2019 Document Reviewed: 02/23/2019 [employer] Patient Education 2020 [employer] 07/27/2022 15:20:26 Vasovagal Syncope, Pediatric Vasovagal [...] ?Squatting. ?Moving his or her legs. Give bxpu-paj-dztmaeg and prescription medicines only as told by [...] 01/13/2009 Document Revised: 03/19/2018 Document Reviewed: 05/12/2017 [employer] Patient Education 2020 [employer] Follow Up Care 07/26/2022 11:32:57 With:Sara Vick Address: [address] [place], [place] [id number]- Business (1) When: Unknown Comments:Call for followup appointment 7-10 days With:Julio Ferrara MD, NEU Address: [address] [place] [address] [place] [address]- When:2 to 4 weeks [facility]04-09-2023 Evaluation + Plan noteExtracted from: Title:Discharge [...] With When Contact Information Sara Vick [address] [place] [address]- Business (1) Additional Instructions: Call for followup appointment 7-10 days Julio Ferrara MD, NEU Within 2 to 4 weeks [address] [place] [address]- Additional Instructions: Near-Syncope Vasovagal Syncope, Pediatric Extracted [...] it is acute or subacute. It might test and turn up technician to just be some focal white matter [...] specified devices) recent right foot surgery in [place] w/podiatry secondary to non healing food wound. Currently has wound vac intact to this operative site. 6. Osteoarthritis (M19.90: Unspecified osteoarthritis, unspecified site) osteoarthritis status post left hip replacement Has chronic back pain. 7. 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 Diagnostic Tests Pending * HgbA1c 07/27/22 [facility]01-13-2023 Evaluation note* Encounter Date Diagnosis Assessment [...] if her pain increases in the future. [facility] Other 01-04-2023 NotePROCEDURE: XR FOOT RT MIN [...] Electronically authenticated by: JULIO LOBATO Date: 2022-04-23 13:00[facility]01-04-[facility] NotePROCEDURE: XR FOOT RT MIN 3 [...] Electronically authenticated by: JULIO LOBATO Date: 2022-04-23 13:00[facility]12-12-2022 NotePROCEDURE: XR ANKLE RT MIN 3 [...] authenticated by: ALFRED UMAÑA Date: 2022-03-31 18:19[id number] Discharge instructions Patient Education 03/08/2022 17:44:27 [...] 04/06/2006 Document Revised: 04/15/2017 Document Reviewed: 03/23/2017 [employer] Patient Education 2020 [employer]. 03/08/2022 17:44:27 Hip Dislocation Hip Dislocation Hip [...] Follow these instructions at home: Medicines Take apft-frt-nbvruxi and prescription medicines only as told by your health care provider. Ask your health care provider if the medicine prescribed to you: ?Requires you to avoid driving or using heavy machinery. ?Can cause constipation. You may need to take actions to prevent or treat constipation, such as: ?Drink enough fluid to keep your urine pale yellow. ?Take zxxr-xlz-ewvvfbx or prescription medicines. ?Eat foods that are [...] in the [place] Do not drive yourself [facility]. Summary Hip dislocation happens when the [...] 12/30/2001 Document Revised: 12/29/2018 Document Reviewed: 12/30/2018 [employer] Patient Education 2020 [employer]. Follow Up Care 03/08/2022 13:37:46 With:Sorin DICKERSON Address: [address] [place] [id number] Business (1) When:03/11/2022 17:44:09 Comments:Call to establish follow-up care. Wear brace until follow-up with orthopedic surgery. With:Sara Vick Address: [address] [place] [address] [place] [address] Business (1) When:03/11/2022 17:43:29 Comments:Call the office [...] you develop any new or worsening symptoms. [facility]11-19-2022 Evaluation + Plan noteExtracted from: Title:ED Note Author:Wm Nagy DO Date:05/08/21 Dislocation, hip (S73.006A: Unspecified dislocation of unspecified hip, initial encounter) Ordered: acetaminophen-hydrocodone, 1 tab(s), Oral, q4hr for pain, 12 tab(s), Refill(s) 0, [id number], 172, cm, 03/08/22 13:49:00 EST, Height/Length Dosing, [...] XR Hip 2-3 Views Left + Pelvis [facility]11-18-2022 Evaluation note* Encounter Date Diagnosis Assessment [...] negative findings were considered in medical decision-making. [employer] Other 06-20-2022 NotePROCEDURE: XR FOOT RT MIN [...] Electronically authenticated by: JULIO LOBATO Date: 2021-10-07 11:44[facility] noteNo InformationNort [employer] Other Evaluation noteNo assessment information available 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) documented in this encounter [facility] note* Diagnosis Chronic bilateral low back pain with bilateral sciatica documented in this encounter [facility] note* Diagnosis Onset Date Resolution Status Chronic pain acute Lumbar degenerative disc disease acute Lumbar radiculopathy acute Lumbosacral spondylosis acut e Sacroiliitis acute 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 acute Chronic pain acute Lumbar degenerative disc disease acute Lumbar radiculopathy acute Lumbosacral spondylosis acut e Sacroiliitis acute [facility] Work Phone: Evaluation note* Diagnosis 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 documented in this encounter [facility] note* Diagnosis 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* Type Description Date [...] 2 021 Surgical History back surgeries x5 [facility] gen kori gilman 2019 [employer] Other History general Narrative - Reported* Type [...] 2 021 Surgical History back surgeries x5 [facility] gen kori gilman 2019 Hospitalization History see above [employer] Other Hishfkv general Narrative - Reported* Type Description Date [...] 2 021 Surgical History back surgeries x5 [facility] [employer] kori gilman 2018 Surgical History lazer surgery on her lt leg veins and she also had sclero tx on b/l legs 2022 Hospitalization History see above [employer] Other Hospital course Narrative No data available for this section [facility] No data available for this section [facility] [place] Progress note No data available for this section [facility] Diagnostic Procedure Only (Routine) - Closed Specialty Diagnoses / Procedures Referred By Maximiliano t Referred To Contact XR IMAGING Diagnoses Fusion of spine of thoracolumbar region Procedures XR SCOLIOSIS PA STAND/LAT 2V RADEX ENTIR THRC LMBR CRV SAC SPI W/SKULL 2/3 VW Ros Cedeño APRN.VINYL FLOORING INSTALLER [address] [place] [phone] [facility] [place] [address] Referral ID Status Reason Start Date Expiration Date V isits Requested Visits Authorized [id number] Closed Auto-Generate d Referral 02/25/2023 03/26/2024 1 1 * Diagnostic Procedure Only (Routine) - Closed Specialty Diagnoses / Procedures Referred By Contac t Referred To Contact XR IMAGING Diagnoses Fusion of spine of thoracolumbar region Procedures XR LUMBAR MOTION 4V AP/LAT/ FLEX/EXT RADEX SPINE LUMBOSACRAL MINIMUM 4 VIEWS Ros Cedeño APRN.VINYL FLOORING INSTALLER [address] [place] [phone] Xr [facility] Referral ID Status Reason Start Date Expiration Date V isits Requested Visits Authorized [id number] Closed Auto-Generate d Referral 02/25/2023 03/26/2024 1 1 [facility] for referral (narrative)* Diagnostic Procedure Only (Routine) - Closed Specialty Diagnoses / Procedures Referred By Contac t Referred To Contact MR IMAGING Diagnoses 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 Procedures MRI THORACIC SPINE WO IVCON MRI SPINAL CANAL THORACIC W/O CONTRAST MATRL Ghanshyam Lombardi MD [address] [place] [phone] Mr Imaging [place] [address] Referral ID Status Reason Start Date Expiration Date V isits Requested Visits Authorized [id number] Closed Auto-Generate d Referral 08/07/2023 09/07/2023 1 1 [facility] for referral (narrative)No reason for referral [facility] Work Phone: Reason for visit Narrative* Diagnostic Procedure Only (Routine) - Closed Specialty Diagnoses / Procedures Referred By Contac t Referred To Contact XR IMAGING Diagnoses Fusion of spine of thoracolumbar region Procedures XR SCOLIOSIS PA STAND/LAT 2V RADEX ENTIR THRC LMBR CRV SAC SPI W/SKULL 2/3 VW Ros Cedeño S, 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 [address] [place] [phone] [place] [id number] Referral ID Status Reason Start Date Expiration Date V isits Requested Visits Authorized [id number] Closed Auto-Generate d Referral 02/25/2023 03/26/2024 1 1 [facility] Advance Directives No Advanced Directives Records [...] FOLLOW UP; PVR'S, FF ULTRASOUND DONE AT [facility] FOR CHRONIC PAIN Reason for [...] W/O CONTRAST MATERIAL Ghanshyam Lombardi MD [address] [place] [address] [address] [facility] [place] [address] Referral ID Status Reason Start Date Expiration Date Visits Requested Visits Authorized [id number] Pending Review Auto-Generat ed Referral 06/24/2023 07/23/2024 1 1 Specialty Diagnoses / Procedures Referred By Contac t Referred To Contact MR IMAGING Diagnoses 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 Procedures MRI THORACIC SPINE WO IVCON MRI SPINAL CANAL THORACIC W/O CONTRAST MATRL Ghanshyam Lombardi MD [address] [place] [address] Mr Imaging [facility] Referral ID Status Reason Start Date Expiration Date Visits Requested Visits Authorized [id number] Pending Review Auto-Generat ed Referral 06/24/2023 07/23/2024 1 1 Specialty Diagnoses / Procedures Referred By Contac t Referred To Contact Diagnoses Pain in prosthetic joint, sequela Procedures XR HIP WITH PELVIS LEFT Perfecto Burch MD [address] [place] [address] Referral ID Status Reason Start Date Expiration Date V isits Requested Visits Authorized [id number] New Request 09/18/2022 10/13/2023 1 1 Specialty Diagnoses / Procedures Referred By Contac t Referred To Contact Diagnoses Pain in prosthetic joint, sequela Procedures XR KNEE LEFT 3 VIEWS Perfecto Burch MD [address] [place] [address] Referral ID Status Reason Start Date Expiration Date V isits Requested Visits Authorized [id number] New Request 09/16/2022 10/11/2023 1 1 Additional Source Comments INFORMATION SOURCE (unrecogn ized section and content) DATE CREATED AUTHOR 12/13/2017 [facility] DATE CREATED AUTHOR AUTHOR'S ORGANIZ ATION 07/10/2018 [facility] DATE CREATED AUTHOR AUTHOR'S ORGANIZ ATION 02/25/2019 [facility] DATE CREATED AUTHOR AUTHOR'S ORGANIZ ATION 03/01/2022 [facility] DATE CREATED AUTHOR AUTHOR'S ORGANIZ ATION 07/26/2022 [facility] DATE CREATED AUTHOR AUTHOR'S ORGANIZ ATION 09/27/2022 [facility] DATE CREATED AUTHOR AUTHOR'S ORGANIZ ATION 09/27/2022 [facility] DATE CREATED AUTHOR AUTHOR'S ORGANIZ ATION 08/09/2023 [facility]ists EPIC DATE CREATED AUTHOR AUTHOR'S ORGANIZ ATION 11/05/2023 [facility] DATE CREATED AUTHOR AUTHOR'S ORGANIZ ATION 12/11/2024 [facility] DATE CREATED AUTHOR AUTHOR'S ORGANIZ ATION 12/30/2024 [facility] REASON FOR VISIT (unrecogniz ed section and content) Specialty Diagnoses / Procedures Referred By Contac t Referred To Contact Diagnoses Pain in prosthetic joint, sequela Procedures XR HIP WITH PELVIS LEFT Perfecto Burch MD [address] [place] [address] Referral ID Status Reason Start Date Expiration Date V isits Requested Visits Authorized [id number] New Request 09/18/2022 10/13/2023 1 1 Reason Comments Pain New Patient Reason Comments New Patient Specialty Diagnoses / Procedures Referred By Contac t Referred To Contact CT IMAGING Diagnoses Chronic bilateral low back pain with bilateral sciatica Procedures CT LUMBAR SPINE WO IVCON CT LUMBAR SPINE W/O CONTRAST MATERIAL Ghanshyam Lombardi MD [address] [place] [address] Ct [facility] [place] [address] Referral ID Status Reason Start Date Expiration Date V isits Requested Visits Authorized [id number] Closed Auto-Generate d Referral 07/11/2023 08/10/2023 2 [...] SEMAC A17 300 Ghanshyam Lombardi MD [address] [place] [address] [address] [place] [address] Referral ID Status Reason Start Date Expiration Date Visits Re quested Visits Authorized [id number] Closed 08/07/2023 09/07/2023 1 1 Patient Care team informatio n (unrecognized section and content) Team Status: Active Member Role Status Freeman Vick MD Primary Care Provider Active Team Status: Inactive Member Role Status Freeman Vick MD Primary Care Provider, Attending Pr ovid Active Supervisor Braiding Relationship Specialty Start Date End Date Sara Vick MD [address] [place] [address] PCP - General Family Medicine 04/09/22 Supervisor Braiding Relationship Specialty [place] [address] [place] [address] PCP - General Family Medicine 04/09/22 Team [...] May 22, 2023 End: May 22, 2023 Supervisor Braiding Relationship Specialty Start Date End Date Sara Vick MD PCP - General Family Medicine 06/09/11 Supervisor Braiding Relationship Specialty Start Date End Date Sara Vick MD PCP - General Family Medicine 06/09/11 Supervisor Braiding Relationship Specialty Start Date End Date Sara [...] or prosecute any alcohol or drug abuse patient.[facility] HospitalIn the event this information is protected by the Federal Confidentiality of Alcohol and Drug Abuse Patient Records regulations: The Federal rules restrict any use of the information to criminally investigate or prosecute any alcohol or drug abuse patient.[facility] HospitalIn the event this information is protected by the Federal Confidentiality of Alcohol and Drug Abuse Patient Records regulations: The Federal rules restrict any use of the information to criminally investigate or prosecute any alcohol or drug abuse patient.[facility] HospitalIn the event this information is protected by the Federal Confidentiality of Alcohol and Drug Abuse Patient Records regulations: The Federal rules restrict any use of the information to criminally investigate or prosecute any alcohol or drug abuse patient.[facility] FOR RECORDS PERTAINING TO PATIENTS WHO [...] BE BASED ON THE PRIMARY CLINICAL RECORDS. [facility] [employer] [facility]. provides no warranty or guarantee of the accuracy or completeness of information in this document.
== END 2025-01-02 08:10 | disposition home or self-care (01) ==
LOC: MRI 08:09
PROVIDERS: PCP Family Medicine; Visit Provider Family Medicine
DX: M62.830 Muscle spasm of back (principal); J20.9 Acute bronchitis, unspecified; M54.16 Radiculopathy, lumbar region
CPT/HCPCS: 72148; 76770

== ENCOUNTER 2025-01-16 09:55 | Outpatient (OUT) | payer MEDICARE, SELFPAY ==
--- OUTSIDE RECORDS SUMMARY | 2025-01-03 13:40 | XMS_ITS | Encounter Summary ---
Author Organization [facility] Address [address] [place] [address] [place] [address] Care Team Providers Care Human Resources Benefits Manager Name Role Phone Unavailable Primary Care Provider Unavailabl e Reason for Referral * Diagnostic X-Ray (Routine) - Closed Specialty Diagnoses / Procedures Referred By Contac t Referred To Contact Radiology Diagnoses Back pain, unspecified back location, unspecified back pain laterality, unspecified chronicity Procedures XRAY HEAD/SPINE IMAGE IMPORT(ROSCOE) Jatinder Mercado MD [address] [place] [address] Phone: tel: fax: [facility] DI[facility] RADIOLOGY [address] [place] [address] [place] [address] Phone: tel: Referral ID Status Reason Start Date Expiration Date Visits Re quested Visits Authorized [id number] Closed 01/03/2025 01/03/2026 1 1 * Diagnostic X-Ray (Routine) - Closed Specialty Diagnoses / Procedures Referred By Contac t Referred To Contact Radiology Diagnoses Back pain, unspecified back location, unspecified back pain laterality, unspecified chronicity Procedures XRAY HEAD/SPINE IMAGE IMPORT(ROSCOE) Jatinder Mercado MD [address] [place] [address] Phone: tel: fax: [facility] [address] [place] [address] [place] [address] Phone: tel: Referral ID Status Reason Start Date Expiration Date Visits Re quested Visits Authorized [id number] Closed 01/03/2025 01/03/2026 1 1 * Diagnostic X-Ray (Routine) - Closed Specialty Diagnoses / Procedures Referred By Contac t Referred To Contact Radiology Diagnoses Back pain, unspecified back location, unspecified back pain laterality, unspecified chronicity Procedures MR NEURO IMAGE IMPORT(ROSCOE) Jatinder Mercado MD [address] [place] [address] Phone: tel: fax: [facility] DIAGNOSTIC RADIOLOGY [address] [place] [address] [place] [address] Phone: tel: Referral ID Status Reason Start Date Expiration Date Visits Re quested Visits Authorized [id number] Closed 01/03/2025 01/03/2026 1 1 Reason for Visit * Diagnostic X-Ray (Routine) - Closed Specialty Diagnoses / Procedures Referred By Contac t Referred To Contact Radiology Diagnoses Back pain, unspecified back location, unspecified back pain laterality, unspecified chronicity Procedures CT NEURO IMAGE IMPORT(ROSCOE) DOWNLOAD POWERSHARE IMAGES TO [facility] Jatinder Mercado MD [address] [place] [address] Phone: tel: fax: [facility] DIAGNOSTIC RADIOLOGY [address] [place] [address] Dr [place] [id number] Phone: tel: Referral ID Status Reason Start Date Expiration Date Visits Re quested Visits Authorized [id number] Closed 01/03/2025 01/03/2026 1 1 Encounter Details Date Type Department Care Team (Latest Contact Info) Description 01/03/2025 1:40 PM EDT - 01/03/2025 11:59 PM EDT Hospital Encounter [facility] Radiology [address] [place] [address] Back pain, unspecified back location, unspecified back pain laterality, unspecified chronicity Discharge Disposition: HOV Discharge Social History Tobacco Use Types Packs/Day Years [...] Care Team (Late st Contact Info) Description 01/24/2025 11:30 AM EDT Office Visit [facility] Orthopedic Spine [address] [place] [address] Jatinder Mercado MD [address] [place] [address] documented as of this encounter Procedures Procedure Name Priority Date/Time Associated Diagnosis Comments MR NEURO IMAGE IMPORT Routine 01/03/2025 3:01 PM EDT Back pain, unspecified back location, unspecified back pain laterality, unspecified chronicity CT NEURO IMAGE IMPORT Routine 01/03/2025 3:00 PM EDT Back pain, unspecified back location, unspecified back pain laterality, unspecified chronicity XRAY HEAD/SPINE IMAGE IMPORT Routine 01/03/2025 3:00 PM EDT Back pain, unspecified back location, unspecified back pain laterality, unspecified chronicity XRAY HEAD/SPINE IMAGE IMPORT Routine 01/03/2025 3:00 PM EDT Back pain, unspecified back location, unspecified back pain laterality, unspecified chronicity documented in this encounter Results * MR NEURO IMAGE IMPORT(ROSCOE) (01/03/2025 3:01 PM EDT) Jatinder Mercado MD [facility] DIAGNOSTIC X-RAY Final Re sult * CT NEURO IMAGE IMPORT(ROSCOE) (01/03/2025 3:00 PM EDT) Jatinder Mercado MD EC CT SCAN Final Result * XRAY HEAD/SPINE IMAGE IMPORT(ROSCOE) (01/03/2025 3:00 PM EDT) Jatinder Mercado MD EC DIAGNOSTIC X-RAY Final Re sult * XRAY HEAD/SPINE IMAGE IMPORT(ROSCOE) (01/03/2025 3:00 PM EDT) Jatinder Mercado MD [facility] DIAGNOSTIC X-RAY Final Re sult documented in this encounter Visit Diagnoses Diagnosis Back pain, unspecified back location, unspecified back pain laterality, unspecified chronicity documented in this encounter
--- OUTSIDE RECORDS SUMMARY | 2025-01-03 13:41 | XMS_ITS ---
Author Name Auto Generated Organization [facility] Care Team Providers Care Network Support Manager Name Role Phone Judson SAXENA Attending Unavailable Leander Carrizales Referring Unavailable MARRY MATHEW Referring Unavailable PROVIDER, UNKNOWN Admitting Unavailable PROVIDER, UNKNOWN Attending Unavailable PROVIDER, UNKNOWN Admitting Unavailable MARRY MATHEW Referring Unavailable PROVIDER, UNKNOWN Attending Unavailable PROVIDER, UNKNOWN Admitting Unavailable MARRY MATHEW Referring Unavailable PROVIDER, UNKNOWN Attending Unavailable PROVIDER, UNKNOWN Admitting Unavailable MARRY MATHEW Referring Unavailable PROVIDER, UNKNOWN Attending Unavailable Leander Carrizales Attending Unavailable Leander Carrizales Primary Care Unavailable Leander Carrizales Admitting Unavailable PROBLEMS DATE TYPE CONDITION / CODE ATTENDING STATUS [facility] 01/03/2025 Active Dorsalgia, unspe cified / M54.9(ICD-10) Unknown Active [facility] PROCEDURES No Procedure Records Found RESULTS URINE CULTURE Observed: 12/09/2024 11:22 AM Status: F Source: [facility] ORGANISM: Escherichia coli ( O:ESCCOL) Howe Count 15,000 ORGANISM: Methicillin Resis Staph Aureus (O:MRSA) Howe Count 75,000 Aerobic BEATRIZ Charge (NMIC56) SUSCEPTIBILITY ORGANISM: O:ESCCOL ANTIBIOTIC INTERPRETATION BEATRIZ Amikacin S <16 Amoxacillin/K Clavulanate S <8 Ampicillin S <8 Ampicillin/Sulbactam S <4 Aztreonam S <4 Cefazolin S <2 Cefepime S <2 Ceftazidime S <1 Ceftazidime/Avibactam S <4 Ceftolozane/Tazobactam S <2 Ceftriaxone S <1 Cefuroxime I 16 Ciprofloxacin R >2 Ertapenem S <0.5 Gentamicin S <2 Levofloxacin R >4 Meropenem S <1 Meropenem/Vaborbactam S <2 Nitrofurantoin S <32 Piperacillin/Tazobactam S <8 Tetracycline S <4 Tigecycline S <2 Tobramycin S <2 Trimethoprim/Sulfamethoxazole S <0.5 Aerobic BEATRIZ Charge (PCMIC38) SUSCEPTIBILITY ORGANISM: O:MRSA ANTIBIOTIC INTERPRETATION BEATRIZ Ceftaroline S <0.5 Daptomycin S <0.5 Linezolid S 2 Nitrofurantoin S <32 Oxacillin R >2 Penicillin R >2 Tetracycline S <4 Trimethoprim/Sulfamethoxazole S <0.5 Vancomycin S 1 S = [...] RESISTANT TO ALL B-LACTAM DRUGS. PERFORMED BY: [place] [address] PATHOLOGIST FRONT DESK FRANKLYN MARIE M.D. Performed By: #### CU[place] #### [place] [address] [place] ALLERGIES DATE TYPE / CODE NAME / CODE REACTION SEVERITY SOURCE 08/07/2023 Drug Allergy/416 211343(SN ED CT) Sulfa (Sulfonamide Antibiotics)/[id number] (RXNORM) Rash Unknown [facility] 08/07/2023 Drug Allergy/416 461405(SNOM ED CT) sulfacetamide/[id number] 0(RXNORM) Unknown Reaction Unknown [facility] /[id number] 6(SNOMED CT) sulfamethoxazole [id number] [facility] /[id number] 6(SNOMED CT) [facility] ENCOUNTERS ADMIT/DISCHARGE ACCOUNT NUMBER ADMITTING ENCOUNTER CLASS LOCATION SOURCE 01/03/2025 [id number] [facility] 01/03/2025/01/04/20 [id number] [facility] 01/03/2025 [id number] [facility] 01/03/2025 [id number] [facility] 12/27/2024/12/28/19 [id number] [place] 12/12/2024 [id number] [facility] [place] 12/09/2024/12/10/19 [id number] [facility] PAYERS ENCOUNTER GUARANTOR PAYER SUBSCRIBER SOURCE 01/03/2025 LEELEE [place] EATONDOB: [place], [place] [address]Hbn: () Primary Insurance:[employer] MEDICAREPolicy Number: [id number] Date:2024-12-19 LEELEE [place] EATONDOB: [id number] [place], [place] [address]Yvc: (HP) [facility] 01/03/2025 LEELEE [place] EATONDOB: [place], [place] [address]Der: (HP) Primary Insurance:[employer] ELITE MEDICAREPolicy Number: [id number] Date:2024-12-19 LEELEE [place] EATONDOB: [id number] [facility] [place] [place] [place] [address]Ybz: (HP) [facility] 01/03/2025 LEELEE [place] EATONDOB: [facility], [place] [address]Qzl: (HP) Primary Insurance:[employer] ELITE MEDICAREPolicy Number: [id number] Date:2024-12-19 LEELEE [place] EATONDOB: [id number] [facility] [place] [address]Dtj: (HP) [facility] 01/03/2025 LEELEE SANCHEZONDOB: [address] [place], [place] [address]Cbq: (HP) Primary Insurance:[employer] ELITE MEDICAREPolicy Number: [id number] Date:2024-12-19 LEELEE [place] EATONDOB: [id number] [facility] [place] [place] [address]Exq: (HP) [facility] 12/27/2024 LEELEE SANCHEZONDOB: [address] BTel: ~ ~(4 1 (HP) Primary Insurance:PARAMOUNTPol icy Number: [id number] Date:2024-12-12 LEELEE CAPPS [facility] 12/09/[address] [facility] [address]Mwf: (HP) Primary Insurance:Self PayPolicy Number: Effective Date:2024-12-09 [facility]
--- OUTSIDE RECORDS SUMMARY | 2025-01-16 09:59 | XMS_ITS | Encounter Summary ---
Author Organization [facility] Address [address] [place] [address] Care Team Providers Care Warrant Server Name Role Phone Leander Carrizales MD Primary Care Provider [phone] Source Comments In the event this information is protected by the Federal Confidentiality of Alcohol and Drug AbusePatient Records regulations: The Federal rules restrict any use of the information to criminally investigate or prosecute any alcohol or drug abuse patient.[facility] Encounter Details Date Type Department Care Team (Late st Contact Info) Description 07/29/2023 [place] [address] Provider, Ccf Questionnaire Submission Social History Tobacco Use Types Packs/Day Years Used Date Smoking Tobacco: Never Alcohol Use Standard Drinks/Week Comments Yes 6 (1 standard drink = 0.6 oz pur e alcohol) Area Deprivation Index Answer Date Doron rded National Score (1-100), lower number is lower ri sk 62 06/24/2023 State Score (1-10), lower number is lower risk 4 06/24/2023 Data from: https://www.neighborhoodatlas.medicine.[facility].edu/. Last address used for calculation 60 [...] on filedocumented in this encounter Care Teams Warrant Server Relationship Specialty Start Date End Date Leander Carrizales MD PCP - General Family Medicine 06/09/11 documented as of this encounter
--- OUTSIDE RECORDS SUMMARY | 2025-01-16 09:59 | XMS_ITS | Encounter Summary ---
Author Organization [facility] Address [id number] [address] [place] [address] Care Team Providers Care Welder Plasma Arc Name Role Phone Unavailable Primary Care Provider Unavailabl e Encounter Details Date Type Department Care Team (Late st Contact Info) Description 12/03/2022 Orders Only [facility] [address] [place] [address] External, Scanning Provider Social History Tobacco Use [...]
--- OUTSIDE RECORDS SUMMARY | 2025-01-16 09:59 | XMS_ITS | Encounter Summary ---
Author Organization [facility] Address [id number] [address] [place] [address] Care Team Providers Care Music Manager Name Role Phone Unavailable Primary Care Provider Unavailabl e Encounter Details Date Type Department Care Team (Late st Contact Info) Description 12/04/2022 Orders Only [facility] [address] [place] [address] External, Scanning Provider Social History Tobacco Use [...]
--- OUTSIDE RECORDS SUMMARY | 2025-01-16 09:59 | XMS_ITS | Encounter Summary ---
Author Organization [facility] Address [address] [place] [address] Care Team Providers Care Neurology Manager Name Role Phone Leander Carrizales MD Primary Care Provider [phone] Source Comments In the event this information is protected by the Federal Confidentiality of Alcohol and Drug AbusePatient Records regulations: The Federal rules restrict any use of the information to criminally investigate or prosecute any alcohol or drug abuse patient.[facility] Encounter Details Date Type Department Care Team (Late st Contact Info) Description 08/06/2023 [place] [address] Provider, Ccf Questionnaire Submission Social History Tobacco Use Types Packs/Day Years Used Date Smoking Tobacco: Never Alcohol Use Standard Drinks/Week Comments Yes 6 (1 standard drink = 0.6 oz pur e alcohol) Area Deprivation Index Answer Date Doron rded National Score (1-100), lower number is lower ri sk 62 06/24/2023 State Score (1-10), lower number is lower risk 4 06/24/2023 Data from: https://www.neighborhoodatlas.medicine.[facility].edu/. Last address used for calculation [address] [facility] 06/24/2023 Comments No Sex and [...] on filedocumented in this encounter Care Teams Neurology Manager Relationship Specialty Start Date End Date Leander Carrizales MD PCP - General Family Medicine 06/09/11 documented as of this encounter
--- OUTSIDE RECORDS SUMMARY | 2025-01-16 09:59 | XMS_ITS | Clinical Summary ---
Author Organization [facility] Address [address] [place] [address] Care Team Providers Care Yoga Teacher Name Role Phone Leander Carrizales MD Primary Care Provider [phone] Allergies Active Allergy Reactions Criticality Noted Date [...] Insurance Medicare [employer] HMO PPO Care Teams Yoga Teacher Relationship Specialty Start Date End Date Leander Carrizales MD PCP - General Family Medicine 04/09/22
--- OUTSIDE RECORDS SUMMARY | 2025-01-16 09:59 | XMS_ITS | Clinical Summary ---
Author Organization [facility] Address [address] [place], [place] [address] Care Team Providers Care Lathe Turner Name Role Phone Unavailable Primary Care Provider Unavailabl e Source Comments The following information is NOT included in Care Everywhere downloads:Psychiatric notes, ECG results, Cardiac Rehab notes, Pulmonary Function notes, data from SmartForms (includes but not limited toPregnancy data,audiograms, eye exams, pre-surgical evaluation notes, well-child exam data).[facility] Encounters Date Type Department Care Team Description 01/03/2025 1:40 PM EDT - 01/03/2025 11:59 PM EDT Hospital Encounter [facility] Radiology [address] [place], [place] [id number] Back pain, unspecified back location, unspecified back pain laterality, unspecified chronicity Discharge Disposition: HOV Discharge 01/03/2025 Orders Only [facility] Orthopedic Spine [address] [place], [place] [id number] Jatinder Mercado MD 12/29/2024 Transcribe Orders [facility] Physician Referral Service [address] [place] [address] Leander Carrizales MD from Last 3 Months Immunizations Immunization Administration Dates Next Due Influenza, Injectable, MDCK, Quadrivalent, Preservative Free (ZMS=766) 02/11/2022 Influenza, Injectable, Triva lent, Adjuvanted, Preservative Free (EBM=186) 02/08/2020 Influenza, injectable, high dose seasonal, trivalent, preservative free (SEB=690) 02/05/2017 Influenza, injectable, triva lent, preservative free (RXA=241) 02/02/2016 Pneumococcal conjugate 13 valent (PCV13) (CVX=13 3) 02/05/2017 TST, unspecified formulation (CVX=98) 06/18/2017 Social History Tobacco Use Types Packs/Day Years Used Date Smoking Tobacco: Never Assessed Comments Unknown Sex and Gender Information Value Date Recorded Sex Assigned at Not on file Legal Sex Female 3:05 PM EDT Gender Identity Not on file Sexual Orientation Not on file Plan of Treatment Upcoming Encounters Date Type Department Care Team (Late st Contact Info) Description 01/24/2025 11:30 AM EDT Office Visit [facility] Orthopedic Spine [address] [place] [address] Jatinder Mercado MD [address] [place] [address] Health Maintenance Due Date Last Done Comments Colonoscopy 1950 Hepatitis C Antibody 12/20/1969 Tdap Booster 12/20/1969 Hepatitis A (HAV) Vaccine (optional start 19+ years) 12/20/1970 CRC Screening 12/20/1996 Cologuard (Stool DNA) 12/20/1996 FIT 12/20/1996 Shingles (RZV) Vaccine (1 of 2) 12/20/2001 Hepatitis B (HBV) Vaccine (optional start 60+ years) 2011 Bone Densitometry 12/20/2016 Pneumococcal Vaccine(s) (50+ yrs) (2 of 2 - PPSV23) 02/05/2018 02/05/2017 Mammography 08/04/2024 08/05/2023, 02/18, 02/26/2021, Additional history exists COVID-19 Vaccine (5 - 2024-2 6 season) 2024 12/03/2021, 03/25/2021, 07/12/2020, Additional history exists Influenza Vaccine (#1) 2024 , 02/08/2020, 02/05/2017, Additional history exists Welcome to Medicare Visit (G0402) 12/19/2024 RSV vaccine (adult) (1 - 1-d ose 75+ series) 12/20/2026 Cholesterol 10/12/2029 10/12/2024 Pap Smear Discontinued Procedures Procedure Name Priority Date/Time Associated Diagnosis [...] location, unspecified back pain laterality, unspecified chronicity from Last 3 Months Results * MR NEURO IMAGE IMPORT(ROSCOE) (01/03/2025 3:01 PM EDT) us Jatinder Mercado MD DIAGNOSTIC X-RAY Final Re sult * CT NEURO IMAGE IMPORT(ROSCOE) (01/03/2025 3:00 PM EDT) us Jatinder Mercado MD CT SCAN Final Result * XRAY HEAD/SPINE IMAGE IMPORT(ROSCOE) (01/03/2025 3:00 PM EDT) us Jatinder Mercado MD DIAGNOSTIC X-RAY Final Re sult * XRAY HEAD/SPINE IMAGE IMPORT(ROSCOE) (01/03/2025 3:00 PM EDT) us Jatinder Mercado MD EC DIAGNOSTIC X-RAY Final Re sult from Last 3 Months Insurance [employer] MEDICARE
--- OUTSIDE RECORDS SUMMARY | 2025-01-16 09:59 | XMS_ITS | Clinical Summary ---
Author Organization [facility] Address [id number] [address] [place] [address] Care Team Providers Care Special Projects Coordinator Name Role Phone Unavailable Primary Care Provider [...] Date Last Done Comments Depression Screening 1962 Tobacco Screening 1962 DTaP,Tdap and Td Vaccines (1 - Tdap) 12/20/1970 Zoster (Shingles) Vaccine (1 of 2) 12/20/2001 Fall Risk Screening 12/20/2016 Adult BMI Screening 12/12/2023 12/11/2022 COVID-19 Vaccine (5 2024-2 6 season) 2024 12/03/2021, 03/25/2021, 07/12/2020, Additional history exists Influenza Vaccine 12/19/2024 02/11/2022, , 02/23/2018, Additional history exists Medical Devices Not on file Insurance [facility] MEDICARE
--- OUTSIDE RECORDS SUMMARY | 2025-01-16 09:59 | XMS_ITS | Encounter Summary ---
Author Organization [facility] Address [address] [place], [place] [id number] Care Team Providers Care Salesperson Hearing Aids Name Role Phone Leander Carrizales MD Primary Care Provider [phone] Source Comments In the event this information is protected by the Federal Confidentiality of Alcohol and Drug AbusePatient Records regulations: The Federal rules restrict any use of the information to criminally investigate or prosecute any alcohol or drug abuse patient.[facility] Reason for Referral * Diagnostic Procedure Only (Routine) - Closed Specialty Diagnoses / Procedures Referred By Contac t Referred To Contact XR IMAGING Diagnoses Fusion of spine of thoracolumbar region Procedures XR SCOLIOSIS PA STAND/LAT 2V RADEX ENTIR THRC LMBR CRV SAC SPI W/SKULL 2/3 VW Antonietta Cedeño APRN.OIL CHANGER [address] [place] [address] Phone: tel: fax: XR IMAGING [facility] Referral ID Status Reason Start Date Expiration Date V isits Requested Visits Authorized [id number] Closed Auto-Generate d Referral 02/25/2023 03/26/2024 1 1 * Diagnostic Procedure Only (Routine) - Closed Specialty Diagnoses / Procedures Referred By Contac t Referred To Contact XR IMAGING Diagnoses Fusion of spine of thoracolumbar region Procedures XR LUMBAR MOTION 4V AP/LAT/ FLEX/EXT RADEX SPINE LUMBOSACRAL MINIMUM 4 VIEWS Antonietta Cedeño APRN.CNP [address] [place] [address] Phone: tel: fax: [place] [address] Referral ID Status Reason Start Date Expiration Date V isits Requested Visits Authorized [id number] Closed Auto-Generate d Referral 02/25/2023 03/26/2024 1 1 Encounter Details Date Type Department Care Team (Late st Contact Info) Description 02/20/2023 Abstract Neurology [address] [place] [id number] (Hist), Unk Pcp Social History Tobacco Use [...] changes with no evidence of hardware complication. Manager Application: ELAINE Transcribe Date/Time: Jun 24 2023 12:52P [...] Number of different views (projections): 2 (accession [id number]), 4 (accession [id number]) COMPARISON: Radiographs dated 09/23/2021 RESULT: Counting reference: [...] No other significant abnormality. Procedure Note Provider, [facility] [place] - 06/24/2023 * * *Final Report* * * DATE OF EXAM: Jun 24 2023 12:40PM LESA [id number] - XR LUMBAR 4V AP/LAT/ FLEX/EXT / PROCEDURE REASON: Fusion of spine of thoracolumbar region * * * * Physician Interpretation * * * * HISTORY: Fusion of spine of thoracolumbar region . TECHNIQUE: XR SCOLIOSIS 2V PA STAND/LAT, XR LUMBAR 4V AP/LAT/ FLEX/EXT Laterality: NOT APPLICABLE Number of different views (projections): 2 (accession [id number]), 4 (accession [id number]) COMPARISON: Radiographs dated 09/23/2021 RESULT: Counting reference: [...] changes with no evidence of hardware complication. Manager Application: ELAINE Transcribe Date/Time: Jun 24 2023 12:52P [...] changes with no evidence of hardware complication. Manager Application: PSCB Transcribe Date/Time: Jun 24 2023 12:52P [...] Number of different views (projections): 2 (accession [id number]), 4 (accession [id number]) COMPARISON: Radiographs dated 09/23/2021 RESULT: Counting reference: [...] No other significant abnormality. Procedure Note Provider, [facility] [place] - 06/24/2023 * * *Final Report* * [...] Number of different views (projections): 2 (accession [id number]), 4 (accession [id number]) COMPARISON: Radiographs dated 09/23/2021 RESULT: Counting reference: [...] changes with no evidence of hardware complication. 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
--- OUTSIDE RECORDS SUMMARY | 2025-01-16 09:59 | XMS_ITS | Clinical Summary ---
Author Organization [facility] Address [address] [place] [address] Phone Care Team Providers Care Political Consultant Name Role Phone Leander Carrizales MD Primary Care Provider [phone] Social History Tobacco Use Types Packs/Day Years Used Date Smoking Tobacco: Never Assessed Comments Unknown Sex and Gender Information Value Date Recorded Sex Assigned at Not on file Legal Sex Female 3:27 PM EST Gender Identity Not on file Sexual Orientation Not on file Plan of Treatment Not on file Care Teams Political Consultant Relationship Specialty Start Date End Date Leander Carrizales MD [address] [place] [address] PCP - General 09/22/18
--- OUTSIDE RECORDS SUMMARY | 2025-01-16 10:00 | XMS_ITS | Clinical Summary ---
Author Organization [facility] Address [address] [place] [address] Care Team Providers Care Feed Inspection Supervisor Name Role Phone Leander Carrizales MD Primary Care Provider [phone] Allergies Active Allergy Reactions Criticality Noted Date [...] Guide test strip 3 Active HYDROcodone-jonnie taminophen ([place]) 5-325 MG tablet TAKE 1 TABLET BY [...] [address] [place] [address] 07/03/2025 10:30 AM EDT Office Visit [facility] [address] [facility] [address] [place] [phone] Brianna Barrios, [address] [facility] [place] [phone] Health Maintenance Due Date Last Done Comments [...] IS VERY IMPORTANT TO YOUR HEALTH. THE [employer] GUIDELINES RECOMMEND THAT WOMEN 40 [...] Maintenance Insurance [employer] MEDICARE ADVANTAGE Care Teams Feed Inspection Supervisor Relationship Specialty Start Date End Date Leander Carrizales MD [address] [place] [id number] PCP - General Family Medicine 06/11/23
--- OUTSIDE RECORDS SUMMARY | 2025-01-16 10:00 | XMS_ITS | Encounter Summary ---
Author Organization [facility] Address [address] [place] [address] Care Team Providers Care Legal Associate Name Role Phone Unavailable Primary Care Provider Unavailabl e Encounter Details Date Type Department Care Team (Late st Contact Info) Description 01/03/2025 Orders Only [facility] [address] [place] [address] Jatinder Mercado MD [address] [place] [address] Social History Tobacco Use Types Packs/Day Years [...] Description 01/24/2025 11:30 AM EDT [facility] [address] [place] [address] Jatinder Mercado MD [address] [place] [address] documented as of this encounter Visit Diagnoses Diagnosis Back pain, unspecified back location, unspecified back pain laterality, unspecified chronicity- Primary documented in this encounter
--- OUTSIDE RECORDS SUMMARY | 2025-01-16 10:00 | XMS_ITS | Clinical Summary ---
Author Organization [facility] Address [address] [place], [place] [id number] Care Team Providers Care Sprinkler Helper Name Role Phone Leander Carrizales MD Primary Care Provider [phone] Allergies Active Allergy Reactions Criticality Noted Date [...] is lower risk 4 06/24/2023 Data from: [email or web address] Last address used for calculation 60 [...] Hep B Core Ab, Total Negative NEGAT [facility] Hep C Antibody IA Negative NEGAT [facility] HBsAg Negative NEGAT [facility] Hep B Surface Ab, Qual Negative NEGAT [facility] Comment: A negative [...] Daniele Renae MD LABORATORY Final Resul t [facility] [address] [place] [address] * COMP METABOLIC PANEL (06/18/2011 1:49 PM EST) Protein, Total 7.4 6.0 - 8.4 g/dL [facility] Albumin 4.1 3.5 - 5.0 g/dL [facility] Calcium 9.4 8.5 - 10.5 mg/dL [facility] Bilirubin, Total 0.2 0.0 - 1.5 mg/dL [facility] Alkaline Phosphatase 75 40 - 150 U/L [facility] AST 23 7 - 40 U/L [facility] Glucose 90 65 - 100 mg/dL [facility] BUN 12 8 - 25 mg/dL [facility] Creatinine 0.80 0.70 - 1.40 mg/dL [facility] Sodium 140 132 - 148 mmol/L [facility] Potassium 3.9 3.5 - 5.0 mmol/L [facility] Chloride 106 98 - 110 mmol/L [facility] CO2 25 23 - 32 mmol/L [facility] Anion Gap 9 0 - 15 mmol/L [facility] ALT 16 0 - 45 U/L [facility] eGFR- >60 [facility] eGFR-All Other Races >60 . [facility] Comment: eGFR (Estimated GFR) [...] EST us Rey Mejia LABORATORY Final Result [facility] [address] [address] from Last 3 Months or Most Recently Relevant to Health Maintenance Insurance [facility] MEDICARE Care Teams Sprinkler Helper Relationship Specialty Start Date End Date Leander Carrizales MD PCP - General Family Medicine 06/09/11
== END 2025-01-16 09:56 | disposition home or self-care (01) ==
LOC: RAD 09:57
PROVIDERS: PCP Family Medicine; Visit Provider Family Medicine
DX: R60.0 Localized edema (principal); M79.604 Pain in right leg
CPT/HCPCS: 93971

== ENCOUNTER 2025-02-08 10:39 | Outpatient (OUT) | payer MEDICARE, SELFPAY | END 2025-02-08 10:40 | disposition home or self-care (01) | LOC: WC 10:39 | PROVIDERS: PCP Family Medicine; Visit Provider Physician Assistant | DX: L97.412 Non-pressure chronic ulcer of right heel and midfoot with fat layer exposed (principal); L98.495 Non-pressure chronic ulcer of skin of other sites with muscle involvement without evidence of necrosis; L97.415 Non-pressure chronic ulcer of right heel and midfoot with muscle involvement without evidence of necrosis | CPT/HCPCS: G0463 ==

== ENCOUNTER 2025-02-16 10:19 | Outpatient (OUT) | payer MEDICARE, SELFPAY ==
--- OUTSIDE RECORDS SUMMARY | 2025-02-16 10:21 | XMS_ITS | Clinical Summary ---
Author Organization [facility] Address [address] [place] [address] Care Team Providers Care Geometry Professor Name Role Phone Leander Carrizales MD Primary Care Provider [phone] Allergies Active AllergyReactionsCriticalityNoted DateCommentsMetronidazoleOther,GI ebkjpjjpqemAictfl48/01/2023Sulfa TachzvedfmyLpunEku07/29/2007 Other Reaction(s): Rash SzowoaboqjowgAuoqSwzy07/01/2023 Medications MedicationSigDispense QuantityRefillsLast FilledStart DateEnd DateStatus alendronate (Fosamax) 70 MG tablet Take 70 mg by mouth once a week07/08/2022ctive cholecalciferol (Vitamin D-3) 50 MCG (1999) capsule 2,000 UnitsActive cholecalciferol 5,000 Units tablet Take 5,000 Units by mouth in the morning.Active collagenase 250 UNIT/GM ointment Apply 1 Application topically in the morning.Active gabapentin (Neurontin) 600 MG tablet Take 600 mg by mouth in the morning and 600 mg in the evening.Active furosemide (Lasix) 20 MG tablet Take 20 mg by mouth every 14 (fourteen) daysActive diclofenac (Voltaren) 75 MG EC tablet Take 75 mg by mouth in the morning and 75 mg in the evening.Active cyanocobalamin (Vitamin B-12) 1000 MCG tablet Take 1,000 mcg by mouth in the morning.Active losartan (Cozaar) 100 MG tablet 1 (one) time each day at the same timeActive levothyroxine (Synthroid, Levoxyl) 125 MCG tablet Take 125 mcg by mouth in the morning.Active pantoprazole (ProtoNix) 40 MG EC tablet Take 40 mg by mouth in the morning.Active meloxicam (Mobic) 15 MG tablet every 12 (twelve) hoursActive tiZANidine (Zanaflex) 4 MG capsule Take 4 mg by mouthActive cholecalciferol 25 MCG (1000 UT) capsule Vitamin I3Dqwilc cyanocobalamin (Vitamin B-12) 100 MCG tablet Vitamin O40Racwwj Accu-Chek Guide test strip 07/02/2022ctive HYDROcodone-acetaminophen ([place]) 5-325 MG tablet TAKE 1 TABLET BY MOUTH ONCE DAILY XQNDNG3705/27/2023ctive Accu-Chek FastClix Lancets misc 04/30/2023ctive levoFLOXacin (Levaquin) 750 MG tablet TAKE 1 TABLET BY MOUTH ONCE DAILY FOR 10 DAYS05/22/2023ctive lidocaine (Lidoderm) 5 % patch APPLY ONE PATCH TOPICALLY TO CLEAN, DRY SKIN. LEAVE ON FOR 12 HOURS THEN REMOVE. MUST WAIT AT LEAST12 HOURS BEFORE APPLYING PATCH(ES) AGAIN.03/20/2023ctive senna (Senokot) 8.6 MG tablet Take 1 tablet by mouth 2 (two) times a day as needed for /06/2023 Active B-D 3CC LUER-OMAR SYR 22GX1 22G X 1 3 ML misc USE TO INJECT VITAMIN B-12 LNWZTFT5104/10/2023ctive Encounters DateTypeDepartmentCare CzrhMzvfpjgavum45/15/2025 10:30 AM EDTAncillary Procedure [facility] [address] [place] [address] Encounter for other screening for malignant neoplasm of wtfhry3802/01/2025Travel 01/31/20255838[place]31/21/2025Travelfrom Last 3 Months Family History Medical HistoryRelationNameCommentsEmphysemaFatherCancerMotherRelationNameStatus CommentsFatherMother Social History Tobacco UseTypesPacks/DayYears UsedDateSmoking Tobacco: NeverSmokeless Tobacco: Never Tobacco Cessation:Counseling Given: Not Answered Alcohol UseStandard Drinks/WeekCommentsYes1 (1 standard drink = 0.6 oz pure alcohol)CommentsNoSex and Gender InformationValueDate RecordedSex Assigned at BirthNot on fileLegal VvbMztsuk42/15/2023 6:58 PM EDTGender Identity Not on fileSexual OrientationNot on file Last Filed Vital Signs Vital SignReadingTime TakenCommentsBlood Bxfqsuhv826/80006/29/2023 11:45 AM EDT Pulse--Temperature--Respiratory Rate--Oxygen Saturation--Inhaled Oxygen Concentration--Lrsomt51.2 kg (194 lb 6.4 oz)06/29/2023 11:45 AM YBHEgcfxp016.3 cm (5' 9 )03/18/2022 12:00 PM ESTBody Mass Index28.7103/18/2022 12:00 PM EST Plan of Treatment DateTypeDepartmentCare Team (Latest Contact Info)Ewjowrwryfi47/16/2026 10:30 AM EDTOffice Visit [facility] [address] [address] Brianna Barrios DO [address] [address] Health MaintenanceDue DateLast DoneCommentsCT Mfelffqovlbz26/02/1952Colonoscopy 2Colorectal Cancer Vkcshhrsc61/02/1952FIT-DNA1951FIT1951 FOBT1951 8311Xfiymnndkfinq44/02/1952DTaP/Tdap/Td Vaccines (1 - Tdap)12/20/1958 COVID-19 Vaccine ( season)/, 03/25/2021, 07/12/2020, Additional history existsInfluenza Vaccine (#1)510/, 02/08/2020, 02/23/2018, Additional history qbopjyNlvlxqfrw43/15/202610/, 08/05/2023, 02/28/2022, Additional history existsPneumococcal Vaccine: 65+ Years Qsjofargr15/31/2017, 02/24/2017, 02/05/2017HIB VaccinesAged OutNo longer eligible based on patient's age to complete this topicHPV VaccinesAged OutNo longer eligible based on patient's age to complete this topicHepatitis A VaccinesAged OutNo longer eligible based on patient's age to complete this topic Hepatitis B VaccinesAged OutNo longer eligible based on patient's age to complete this topicIPV VaccinesAged OutNo longer eligible based on patient's age to complete this topicMeningococcal B VaccineAged OutNo longer eligible based on patient's age to complete this topicMeningococcal VaccineAged OutNo longer eligible based on patient's age to complete this topicRotavirus VaccinesAged Out No longer eligible based on patient's age to complete this topic Procedures Procedure NamePriorityDate/TimeAssociated DiagnosisCommentsBI MAMMOGRAM SCREENING TOMOSYNTHESIS LSNEUQHIZZuimqex38/15/2025 10:56 AM EDT Encounter for other screening for malignant neoplasm of breast from Last 3 Months Results * Bilateral screening mammogram with tomosynthesis (02/01/2025 10:56 AM EDT) Anatomical RegionLateralityModalityBreastBilateralMammographySpecimen (Source) Anatomical Location / LateralityCollection Method / VolumeCollection Time Received Time02/01/2025 3:24 PM EDT Impressions 02/01/2025 3:31 PM EDT Impression: No specific evidence of malignancy seen in either breast. BIRADS 2 - Benign Findings DENSITY: There are scattered areas of fibroglandular density. FOLLOW-UP: Routine Screening Mammogram Board Certified Radiologists. ??Accredited by the ACR and FDA. MAMMOGRAPHY IS VERY IMPORTANT TO YOUR HEALTH. ??THE [place] GUIDELINES RECOMMEND THAT WOMEN 40 YEARS OF AGE AND OLDER SHOULD HAVE A MAMMOGRAM EVERY YEAR. A REMINDER LETTER WILL BE SENT AT THE APPROPRIATE TIME. ?? ELECTRONICALLY SIGNED BY: Amilcar Ling M.D. Narrative 02/01/2025 3:31 PM EDT Examination: BI MAMMOGRAM SCREENING TOMOSYNTHESIS BILATERAL Clinical History: screening Technique: Screening digital mammography study of both breasts was performed with 2-D and 3-D tomosynthesis imaging. Study was compared to the prior exam dated 08/05/2023. Findings: There is no evidence of interval dominant spiculated mass, grouped microcalcifications, or skin thickening which would be suggestive of malignancy. ?? Mild scattered benign-appearing calcifications including vascular calcifications are noted bilaterally. Axillary lymph nodes including partially visualized lymph nodes are noted bilaterally and appear grossly unremarkable. Procedure Note Amilcar Ling MD - 02/01/2025 Examination: BI MAMMOGRAM SCREENING TOMOSYNTHESIS BILATERAL Clinical History: screening Technique: Screening digital mammography study of both breasts wasperformed with 2-D and 3-D tomosynthesis imaging. Study was compared tothe prior exam dated 08/05/2023. Findings: There is no evidence of interval dominant spiculated mass,grouped microcalcifications, or skin thickening which would be suggestiveof malignancy. Mild scattered benign-appearing calcifications including vascularcalcifications are noted bilaterally. Axillary lymph nodes includingpartially visualized lymph nodes are noted bilaterally and appear grosslyunremarkable. IMPRESSION: Impression: No specific evidence of malignancy seen in either breast. BIRADS 2 - Benign Findings DENSITY: There are scattered areas of fibroglandular density. FOLLOW-UP: Routine Screening Mammogram Board Certified Radiologists. Accredited by the ACR and FDA. MAMMOGRAPHY IS VERY IMPORTANT TO YOUR HEALTH. THE [place] [employer] GUIDELINES RECOMMEND THAT WOMEN 40 YEARS OF AGE AND OLDER SHOULD HAVE AMAMMOGRAM EVERY YEAR. A REMINDER LETTER WILL BE SENT AT THE APPROPRIATE TIME. ELECTRONICALLY SIGNED BY: Amilcar Ling M.D. Authorizing ProviderResult TypeResult StatusDokaran Carrizales MDIMG BI PROCEDURES Final Result from Last 3 Months Insurance Care Teams Team MemberRelationshipSpecialtyStart DateEnd Leander Crarizales MD [address] [place] [address] [facility] - [facility]/23
--- OUTSIDE RECORDS SUMMARY | 2025-02-16 10:21 | XMS_ITS | Clinical Summary ---
Author Organization [facility] Address [address] [facility] [place] [place] [address] Care Team Providers Care Marine Diesel Technician Name Role Phone Jatinder Mercado MD Unavailable [phone] Source Comments The following information is NOT included in Care Everywhere downloads:Psychiatric notes, ECG results, Cardiac Rehab notes, Pulmonary Function notes, data from [employer] (includes but not limited toPregnancy data,audiograms, eye exams, pre-surgical evaluation notes, well-child exam data).[facility] Allergies Active AllergyReactionsCriticalityNoted YyskNmnycdgmJgpqqrtroswxh01/07/2025Sulfa Nafkxhmaosq63/07/2025 Medications MedicationSigDispense QuantityRefillsLast FilledStart DateEnd DateStatus losartan (COZAAR) 100 MG tablet Take 100 mg by mouth daily.Active levothyroxine (SYNTHROID) 125 MCG tablet Take 125 mcg by mouth daily.Active pantoprazole (PROTONIX) 40 MG PACK oral packet Take 40 mg by mouth daily.Active gabapentin (NEURONTIN) 600 MG tablet Take 600 mg by mouth 3 times daily.Active meloxicam (MOBIC) 15 MG tablet Take 15 mg by mouth daily.Active Cholecalciferol (Vitamin D3) 50 MCG (1999 UT) TABS Take 50 mcg by mouth daily.Active furosemide (LASIX) 20 MG tablet Take 20 mg by mouth daily.Active Cyanocobalamin 100 MCG LOZG Inject 100 mcg.Active collagenase (SANTYL) 250 UNIT/GM ointment Apply 30 g topically daily. Apply thin layer to affected area.Active Alendronate Sodium 70 MG TBEF Take by mouth.Active Encounters DateTypeDepartmentCare VklrJjlpnqbjdek25/07/2025 11:30 AM EDTOffice Visit [facility] Orth[facility]ine [address] [place] [phone] Jatinder Mercado MD Failed back surgical syndrome (Primary Dx)01/03/2025 1:40 PM EDT - 01/03/2025 11:59 PM EDTHospital Encounter [facility] Radiology [address] [place] [address] Back pain, unspecified back location, unspecified back pain laterality, unspecified chronicity Discharge Disposition: HOV Ualirpxbt97/16/2025Orders Only [facility] Orthopedic Spine [address] [place] [phone] Jatinder Mercado MD 12/29/2024Transcribe Orders [facility] Physician Referral Service [address] [place] [phone] Leander Carrizales MD from Last 3 Months Immunizations ImmunizationAdministration DatesNext DueInfluenza, Injectable, MDCK, Quadrivalent, Preservative Free (EVM=593)02/11/2022Influenza, Injectable, Trivalent, Adjuvanted, Preservative Free (OOU=483)02/08/2020Influenza, injectable, high dose seasonal, trivalent, preservative free (GVO=434)02/05/2017 Influenza, injectable, trivalent, preservative free (GZR=462)02/02/2016 Pneumococcal conjugate 13 valent (PCV13) (ODD=907)02/05/2017TST, unspecified formulation (CVX=98)06/18/2017 Social History Tobacco UseTypesPacks/DayYears UsedDateSmoking Tobacco: Never Assessed CommentsUnknownSex and Gender InformationValueDate RecordedSex Assigned at Not on fileLegal CjgQkkkic97/11/2025 3:05 PM EDTGender IdentityNot on fileSexual OrientationNot on file Plan of Treatment Health MaintenanceDue DateLast AqnaGsmprstlSingwuqcfke37/02/1952Hepatitis C Idwskobh06/02/1970Tdap Txbgimg3412/20/1969Hepatitis A (HAV) Vaccine (optional start 19+ years)12/20/1970CRC Ymhuyqoeh83/02/1997Cologuard (Stool DNA)12/20/1996 FIT12/20/1996Shingles (RZV) Vaccine (1 of 2)12/20/2001Hepatitis B (HBV) Vaccine (optional start 60+ years)2011one Unewufbrpcph17/02/2017Pneumococcal Vaccine(s) (50+ yrs) (2 of 2 - PPSV23)Mammography08/04/2024 08/05/2023, 02/28/2022, 02/26/2021, Additional history existsCOVID-19 Vaccine (2024- season)/, 03/25/2021, 07/12/2020, Additional history existsInfluenza Vaccine (#1), 02/08/2020, 02/05/2017, Additional history existsWelcome to Medicare Visit (G0402)12/19/2024 RSV vaccine (adult) (1 - 1-dose 75+ series)12/20/20269295Eytbmsellwt97/25/2030 10/12/2024Pap SmearDiscontinued Procedures Procedure NamePriorityDate/TimeAssociated DiagnosisCommentsMR NEURO IMAGE IMPORT Qsavmyf9601/03/2025 3:01 PM EDT Back pain, unspecified back location, unspecified back pain laterality, unspecified chronicity CT NEURO IMAGE GLOHRALcfudpy93/16/2025 3:00 PM EDT Back pain, unspecified back location, unspecified back pain laterality, unspecified chronicity XRAY HEAD/SPINE IMAGE IRUEEDFrgxhpq65/16/2025 3:00 PM EDT Back pain, unspecified back location, unspecified back pain laterality, unspecified chronicity XRAY HEAD/SPINE IMAGE OBVLALTxpduek01/16/2025 3:00 PM EDT Back pain, unspecified back location, unspecified back pain laterality, unspecified chronicity from Last 3 Months Results * MR NEURO IMAGE IMPORT(ROSCOE) (01/03/2025 3:01 PM EDT)Specimen (Source)Anatomical Location / LateralityCollection Method / VolumeCollection TimeReceived Time Narrative Authorizing ProviderResult TypeResult Sarah Mercado MD DIAGNOSTIC X-RAYFinal Result * CT NEURO IMAGE IMPORT(ROSCOE) (01/03/2025 3:00 PM EDT)Specimen (Source)Anatomical Location / LateralityCollection Method / VolumeCollection TimeReceived Time Narrative Authorizing ProviderResult TypeResult Sarah Mercado MD CT SCANFinal Result * XRAY HEAD/SPINE IMAGE IMPORT(ROSCOE) (01/03/2025 3:00 PM EDT)Specimen (Source) Anatomical Location / LateralityCollection Method / VolumeCollection Time Received Time Narrative Authorizing ProviderResult TypeResult Sarah Mercado MD DIAGNOSTIC X-RAYFinal Result * XRAY HEAD/SPINE IMAGE IMPORT(ROSCOE) (01/03/2025 3:00 PM EDT)Specimen (Source) Anatomical Location / LateralityCollection Method / VolumeCollection Time Received Time Narrative Authorizing ProviderResult TypeResult Sarah Mercado MD DIAGNOSTIC X-RAYFinal Result from Last 3 Months Insurance Care Teams Team MemberRelationshipSpecialtyStart DateEnd Jatinder Mercado MD [address] [place], [place] [id number] PhysicianOrthopaedic Agxxyzt21/4/25
--- OUTSIDE RECORDS SUMMARY | 2025-02-16 10:21 | XMS_ITS | Clinical Summary ---
Author Organization [facility] Address [id number] [place] [address] Care Team Providers Care Senior Data Modeler Name Role Phone Unavailable Primary Care Provider Unavailabl e Allergies Active AllergyReactionsCriticalityNoted DateCommentsMetronidazoleNausea And AbuzupcbRrxgcz04/01/2023Sulfa (Sulfonamide Antibiotics)07/16/2006 Other Reaction(s): Rash RpwomrakipsqyTpcpGpwh44/01/2023 Medications MedicationSigDispense QuantityRefillsLast FilledStart DateEnd DateStatus losartan (COZAAR) 100 mg tablet Take 1 tablet (100 mg total) by mouth in the morning.Active levothyroxine (SYNTHROID, LEVOTHROID) 125 MCG tablet Take 1 tablet (125 mcg total) by mouth in the morning.Active pantoprazole (PROTONIX) 40 mg EC tablet Take 1 tablet (40 mg total) by mouth in the morning.Active gabapentin (NEURONTIN) 600 mg tablet Take 1 tablet (600 mg total) by mouth in the morning and 1 tablet (600 mg total) before bedtime.Active meloxicam (MOBIC) 15 mg tablet Take 1 tablet (15 mg total) by mouth in the morning.Active cholecalciferol, vitamin D3, 5,000 units tablet Take 1 tablet (5,000 Units total) by mouth in the morning.Active furosemide (LASIX) 20 mg tablet Take 1 tablet (20 mg total) by mouth every 14 (fourteen) days.Active cyanocobalamin 1000 MCG tablet Take 1 tablet (1,000 mcg total) by mouth in the morning.Active tiZANidine (ZANAFLEX) 4 mg tablet Take 1 tablet (4 mg total) by mouth in the morning.Active alendronate (FOSAMAX) 70 mg tablet Take 1 tablet (70 mg total) by mouth every 7 days. In a.m. with water on empty stomach, nothing else by mouth and remain upright for 30minActive collagenase (SANTYL) ointment Apply 1 Application topically in the morning. 30g.Active Social History Tobacco UseTypesPacks/DayYears UsedDateSmoking Tobacco: NeverSmokeless Tobacco: Never Tobacco Cessation:Counseling Given: No ChildcareAnswerDate SdxqakvaSwotlglilZmqjecl29/12/2019EmploymentAnswerDate YusrfvrcBhjfdbeusuKrtykfq39/12/2019Hunger ScreeningAnswerDate RecordedWithin the past 12 months we worried whether our food would run out before we got money to buy more.Never True12/11/2022Within the past 12 months the food we bought just didn't last and we didn't have money to get more.Never True12/11/2022 CommentsUnknownSex and Gender InformationValueDate RecordedSex Assigned at Not on fileLegal MyhElldym22/06/2015 12:12 PM EDTGender IdentityNot on file Sexual OrientationNot on file Last Filed Vital Signs Vital SignReadingTime TakenCommentsBlood Kfqnlfdb980/8112/11/2022 11:57 AM EDT Okwsz43378/24/2023 11:57 AM EDTTemperature--Respiratory Rate--Oxygen Saturation- -Inhaled Oxygen Concentration--Vnphxb53.4 kg (201 lb 6.4 oz)12/11/2022 11:55 AM OJQXjhskd407 cm (5' 8.5 )12/11/2022 11:55 AM EDTBody Mass Index30.1808 11:55 AM EDT Plan of Treatment Health MaintenanceDue DateLast DoneCommentsDepression Gxegncqkc85/02/1964Tobacco Bjjpxiboq76/02/1964DTaP,Tdap and Td Vaccines (1 - Tdap)12/20/1970Zoster (Shingles) Vaccine (1 of 2)12/20/2001Fall Risk Hbmczwtvn77/02/2017Adult BMI Bpybogtyr09OVID-19 Vaccine (5 - season)2024 12/03/2021, 03/25/2021, 07/12/2020, Additional history existsInfluenza Vaccine , 02/08/2020, 02/23/2018, Additional history exists [employer] Not on file Insurance
--- OUTSIDE RECORDS SUMMARY | 2025-02-16 10:21 | XMS_ITS | Clinical Summary ---
Author Organization [facility] Address [address] [place] [address] Phone Care Team Providers Care Hoe Runner Name Role Phone Leander Carrizales MD Primary Care Provider [phone] Social History Tobacco UseTypesPacks/DayYears UsedDateSmoking Tobacco: Never Assessed CommentsUnknownSex and Gender InformationValueDate RecordedSex Assigned at Not on fileLegal JglNuevnt22/25/2022 3:27 PM ESTGender IdentityNot on fileSexual OrientationNot on file Plan of Treatment Not on file Care Teams Team MemberRelationshipSpecialtyStart DateEnd Date Leander Carrizales MD [address] [facility] [place] [address] PCP - [facility]09/22/18
--- OUTSIDE RECORDS SUMMARY | 2025-02-16 10:23 | XMS_ITS | CCD ---
Author Organization [facility] ion [facility] Care Team Providers Care Fireworks Maker Name Role Phone Praveen Lopez Unavailable Unavailable PHYSICIAN, DEFAULT Unavailable Unavailable PHYSICIAN, DEFAULT Unavailable Unavailable SARA VICK Unavailable Unavailable Sara Vick~[phone] UNKNOWN Admitting Unavailable Sara Vick~[phone] UNKNOWN Attending Unavailable Sara Vick~[phone] UNKNOWN Referring Unavailable Sara Vick Primary Care Provider Trino Yoo Attending Provider Larry Brown Unavailable Sara Vick Primary Care Physician Lynn Salas Unavailable Unavailable Liam Flor Unavailable Unavailable ADELE FLEMING Attending Unavailable SARA VICK Primary Care Unavailable MD Sara Vick Primary Care Provider [phone] MD Sara Vick Attending Provider [phone] BRICE JANSEN Consulting Unavailable BRICE JANSEN Admitting Unavailable BRICE JANSEN Attending Unavailable DR SARA OVERTON Primary [...] Unavailable WEST, DR ALFRED Deal Consulting Unavailable ELZBIETABRICE Admitting Unavailable ELZBIETABRICE Attending Unavailable HOY ., DR RUIZ Primary Care Unavailable ELZBIETABRICE Consulting Unavailable HIGHLANDER, ADELE Means Attending Unavailable [...] Unavailable Sara Vick MD Primary Care Provider [phone] Dominique Shane Unavailable MD Sara Vick Primary Care Provider [phone] MD Larry Brown Attending Provider Kiran Kessler Unavailable [phone] HAILEY Jansen Attending Provider MD Kiran Kessler Attending Provider Sara Vick MD Primary Care Provider [phone] MD Sara Vick Primary Care Provider HAILEY Jansen Attending Provider MD Kiran Kessler Attending Provider ROS CEDEÑO Referring Unavailable HOY, SARA M Primary Care Unavailable HOY, SARA M Primary Care Unavailable PELLE, GHANSHYAM Referring Unavailable HOY, SARA M Primary Care Unavailable PELLE, GHANSHYAM Referring Unavailable HOY, SARA M Primary Care Unavailable PELLE, GHANSHYAM Attending Unavailable HOY, SRAA M Referring Unavailable HOY, SARA M Primary Care Unavailable Sara Vick MD Primary Care Provider [phone] Sara Vick MD Attending Provider Sara Vick Attending Unavailable Hoy, Sara M Primary Care Unavailable Hoy Sara M Admitting Unavailable Unavailable Primary Care Provider UnavailMarry Loza MD Unavailable [phone] MARRY MATHEW Attending Unavailable SARA VICK. Referring Unavailable PROVIDER, UNKNOWN Admitting Unavailable PROVIDER, UNKNOWN Attending Unavailable PROVIDER, UNKNOWN Admitting Unavailable MARRY MATHEW Referring Unavailable PROVIDER, UNKNOWN Attending Unavailable MARRY MATHEW Referring Unavailable PROVIDER, UNKNOWN Admitting Unavailable PROVIDER, UNKNOWN Admitting Unavailable MARRY MATHEW Referring Unavailable PROVIDER, UNKNOWN Attending Unavailable SARA VICK Referring Unavailable Judson SAXENA Attending Unavailable Sara Vick Referring Unavailable Judson SAXENA Attending Unavailable Unavailable Unavailable Unavailable Allergies Allergy ClassificationReported Allergen(s)Allergy TypeDate of OnsetReaction(s) Facility (4 sources)Sulfa Antibiotics; Translations: [SULFA ANTIBIOTICS]06-18-2017 Celestino Bynum (3 sources)Sulfonamides (Antibiotic)Drug allergy (disorder)07-60[facility]1322[facility] (5 sources)Sulfamethoxazole; Translations: [sulfamethoxazole]Drug Allergy Cutaneous eruption (morphologic abnormality)[facility] Repository (2 sources)Sulfur; Translations: [Sulfur][facility] (12 sources)Sulfonamides (Antibiotic); Translations: [SULFA (SULFONAMIDE ANTIBIOTICS)]Allergy to judyuqygn81-75-1704JrjgPmphlxvwgPrem[facility] (18 sources)SulfacetamideDrug Ibebmjc29-46-0086CpzsBrtukPrezto Other (5 sources)metroNIDAZOLE; Translations: [METRONIDAZOLE]Drug Nfbgwcp55-81-0084 [facility] (1 source)SulfacetamideDrug Vdsowfi71-64-9303[facility] Medications Current Medications MedicationDrug Class(es)DatesSig (Normalized)Sig (Original)acetaminophen 325 mg oral tablet (3 sources)Start: 11-41-8433zwqd 2 tablets by mouth every four hours as needed for painTylenol 325 mg Tab 650 mg = 2 tab(s), Oral, q4hr, PRN Breakthrough Pain, Refills(s) 0 Start Date: 09/14/19 Status: OrderedStart: 68-40-7889fbbo 2 tablets by mouth every four hours as needed for painTylenol Tablet 325 MG 2 tablet Tablet Oral Give 2 tablet by mouth every 4 hours as needed for take as needed for mild pain or fever 06/18/2017 20:15:00Albuterol (Eqv-Ventolin HFA) 90 mcg/inh inhalation aerosol (1 source)Start: 48-68-6114tdta 2 puff(s) by inhalation every six hoursAlbuterol (Eqv-Ventolin HFA) 90 mcg/inh inhalation aerosol 2 puff(s), Inhalation, q6hr Shortness ofbreath or wheezing, Refill(s) 0 Start Date: 07/26/22 Status: Ordered alendronic acid 70 mg oral tablet (20 sources)BisphosphonateStart: 99-76-8088yvgq 1 tablet by mouth once daily Start: 28-64-7201uaeu 1 tablet by mouth every weekalendronate 70 mg Tab 70 mg = 1 tab(s), Oral, qWeek, Refills(s) 0 Start Date: 07/26/22 Status: Ordered Repeat number: 1Alendronate Sodium 70 MG TBEF Take by mouth. Activetake 1 tablet by mouth once dailyAlendronate Sodium 70 MG 1 tablet 30 minutes before the first food, beverage or medicine of the daywith plain water Orally ActiveALPRAZolam 0.25 mg oral tablet (1 source)BenzodiazepineStart: 74-38-0355lppe 1 tablet by mouth twice daily as needed for anxietyalprazolam 0.25 mg Tab 0.25 mg = 1 tab(s), Oral, BID, PRN as needed for anxiety, Refills(s) 0 StartDate: 12/15/24 Status: Ordered Repeat number: 1aspirin 81 mg delayed release oral tablet (20 sources)Platelet Aggregation Inhibitor, Nonsteroidal Anti-inflammatory Drug Start: 18-00-9351zkgx 1 tablet by mouth once dailyaspirin 81 mg Oral EC Tab 81 mg = 1 tab(s), Oral, Daily, # 30 tab(s), Refills(s) 0, Pharmacy: [facility]/pharmacy #[id number], 172.7, cm, 07/26/22 11:43:00 EDT, Height/Length Dosing, 93.5, kg, 07/27/22 10:37:00 EDT, Weight Dosing Start Date: 07/27/22 Status: OrderedStart: 05-08-2020 End: 66-68-1016qsfp 1 tablet by mouth twice dailyAspirin 81 mg Tablet,Delayed Release (Dr/Ec) Discontinued 81 MG PO Twice daily 0 May 0811:00am September 10, 2022 11:47amStart: 60-77-6185Dcteqgd 81 MG 1 tablet daily, starting day after discharge from hospital Orally twice a day for 14 days *DO NOT START PRIOR TO SURGERY. To be used post op TKA for DVT prophylaxis Apr, Not-Taki ng/PRNbaclofen 20 mg oral tablet (1 source)gamma-Aminobutyric Acid-ergic AgonistStart: 80-95-8823bpbn 1 tablet by mouth at bedtimebaclofen 20 mg Tab 20 mg = 1 tab(s), Oral, Bedtime, Refills(s) 0 Start Date: 12/15/24 Status: Ordered Repeat number: 1Biscolax Suppository (1 source)Start: 61-10-6140Dfsjhquz Suppository 1 suppository Suppository Rectal Insert 1 suppository rectally every 24 hours as needed for CONSTIPATION IF MIRALAX NOT EFFECTIVE 06/18/2017 17:15:00cefadroxil 500 mg oral capsule (1 source)Cephalosporin AntibacterialStart: 21-30-2823fxpe 1 capsule by mouth every twelve hourscefadroxil 500 mg Cap 500 mg = 1 cap(s), Oral, q12hr, Refills(s) 0 Start Date: 07/26/22 Status: Orderedcetirizine hydrochloride 10 mg oral tablet (1 source)Histamine-1 Receptor AntagonistStart: 13-57-4518stot 1 tablet by mouth every twenty-four hours as neededZyrTEC Allergy Tablet 10 MG 10 mg Tablet Oral Give 10 mg by mouth every 24 hours as needed for takeas needed for allergy symptoms take as needed at bedtime 06/18/2017 20:15:00cholecalciferol 0.025 mg oral capsule (20 sources)Vitamin DStart: 47-99-1109gozp 1 capsule by mouth once dailyStart: 10-07-1274wpua 1 tablet by mouth once dailyVitamin D3 Tablet 2000 UNIT 1 tablet Tablet Oral Give 1 tablet by mouth one time a day for supplement 06/19/2017 9:00:00take 1 tablet by mouth once dailyCholecalciferol (Vitamin D3) 50 MCG (2000 UT) TABS Take 50 mcg by mouth daily. Activetake 1 capsule by mouth every twenty-four hoursVitamin D3 50 MCG (2000 UT) 1 capsule Orally Once a day Active collagenase 0.25 unt/mg topical ointment (4 sources)Collagen-specific EnzymeStart: 92-41-9542rhnaevrhoby (SANTYL) 250 UNIT/GM ointment Apply 30 g topically daily. Apply thin layer to affected area. ActiveCollagenase 250 UNIT/GM (11 sources)Collagenase 250 UNIT/GM 1 application Externally Once a day Active cyclobenzaprine hydrochloride 10 mg oral tablet (1 source)Muscle RelaxantStart: 34-48-7697bxiw 1 tablet by mouth every eight hours as needed for muscle spasmsCyclobenzaprine HCl Tablet 10 MG 10 mg Tablet Oral GIVE ONE TAB BY MOUTH EVERY 8 HOURS NEEDED FOR MUSCLE SPASMS 06/18/2017 20:30:00diclofenac sodium 75 mg delayed release oral tablet (5 sources)Nonsteroidal Anti-inflammatory DrugStart: 90-57-1549eqxs 1 tablet by mouth twice dailyDiclofenac Sodium Tablet Delayed Release 75 MG 1 tablet Tablet Delayed Release Oral GIVE ONE TAB BYMOUTH TWICE DAILY FOR ANTI INFLAMMATORY 06/19/2017 9:00:00Comment on above:Take 75 mg by mouth twice daily.Diff-Stat Capsule (1 source)Start: 83-91-3251zdqv 1 capsule by mouth once dailyDiff-Stat Capsule 1 capsule Capsule Oral Give 1 capsule orally one time a day for Prophylatic 06/19/2017 9:00:00esomeprazole 40 mg delayed release oral capsule (14 sources)Proton Pump Inhibitortake 1 capsule by mouth every twenty-four hours NexIUM 40 MG 1 capsule Orally Once a day Activefurosemide 20 mg oral tablet (20 sources)Loop DiureticStart: 20-69-4653rxld 1 tablet by mouth every other weekStart: 04-24-2020 End: 53-75-2610Jwhrayophv Discontinued 20 MG PO As Directed April 24, 2020 12:00am March 25, 2023 10:11amStart: 07-01-2018 End: 35-28-0008Vdaiabndbu 20 mg Tablet Discontinued 20 MG PO As Directed April 24, 2020 1:00am March 25, 2023 11:11amlidocaine 0.05 mg/mg medicated patch (12 sources)Antiarrhythmic, Amide Local AnestheticStart: 32-41-6206wrkge 1 dose topically once daily as neededStart: 81-62-3459Leijyutz 5 % 1 patch remove after 12 hours Externally Once a day for 30 days Nov, Activelosartan potassium 100 mg oral tablet (20 sources)Angiotensin 2 Receptor BlockerStart: 75-08-1495rybl 1 tablet by mouth once dailylosartan 100 mg Tab 100 mg = 1 tab(s), Oral, Daily Start Date: 06/26/17 Status: Ordered Repeat number: 1Losartan Potassium ActiveComment on above:Take 1 tablet by mouth once daily.meloxicam 15 mg oral tablet (20 sources)Nonsteroidal Anti-inflammatory DrugStart: 07-01-2018 End: 83-55-1512vphx 1 tablet by mouth once dailyMobic 15 mg Tab 15 mg = 1 tab(s), Oral, Daily, Refills(s) 0 Start Date: 07/01/18 Status: Ordered Repeat number: 1pantoprazole 40 mg delayed release oral tablet (20 sources)Proton Pump InhibitorStart: 14-66-4931fljg 1 tablet by mouth once dailyPantoprazole [address] Tab 40 mg = 1 tab(s), Oral, Daily, Refills(s) 0 Start Date: 09/14/19 Status: Ordered Repeat number: 1Start: 05-03-0520pgal 1 tablet by mouth once dailyPantoprazole Sodium Tablet Delayed Release 40 MG 40 mg Tablet Delayed Release Oral GIVE ONE TAB BY MOUTH EVERY DAY FOR ULCER MEDICATIONS 06/19/2017 9:00:00take 40 mg by mouth once dailypantoprazole (PROTONIX) 40 MG PACK oral packet Take 40 mg by mouth daily. ActiveComment on above:Take 40 mg by mouth once daily.polyethylene glycol 3350 (1 source)Osmotic LaxativeStart: 62-66-3381qejz 17 g by mouth once daily for constipationGlycoLax Powder 17 gram Powder Oral Give 17 gram by mouth one time a day for constipation (in Liquid) 06/19/2017 9:00:00purified protein derivative of tuberculin (2 sources)Tuberculosis Skin Test, Skin Test AntigenStart: 06-18-2017 End: 33-09-8210Drwskoffiy PPD Solution 5 UNIT/0.1ML 0.1 ml Solution Intradermal Inject 0.1 ml intradermally one time a day every 9 day(s) for PPD Test for 2 Weeks Read in 48 hours. Repeat in 9 days if no reaction. 06/18/2017 21:00:00 07/02/2017 20:59:00Start: 06-18-2017 End: 51-72-7232Xudhbcugwe PPD Solution 5 UNIT/0.1ML 0.1 ml Solution Intradermal Inject 0.1 ml intradermally one time a day every 9 day(s) for PPD Test for 2 Weeks Read in 48 hours. Repeat in 9 days if no reaction. 06/18/2017 21:00:00 06/20/2017 0:07:00 AbortedtiZANidine 4 mg oral capsule (20 sources)Central alpha-2 Adrenergic AgonistStart: 45-04-7327vjga 0.5-1 tablets by mouth twice daily as neededStart: 89-69-0456xvxx 2 tablets by mouth every eight hours as needed for muscle spasmstiZANidine 4 mg Tab 8 mg = 2 tab(s), Oral, q8hr, PRN Spasm, Refills(s) 0 Start Date: 07/26/22 Status:Ordered Start: 36-14-3727rhlu 2 tablets by mouth twice dailyZanaflex Tablet 4 MG 2 tablet Tablet Oral GIVE 2 TABS (8MG) BY MOUTH TWICE DAILY FOR MUSCLOSKELETAL 06/19/2017 9:00:00take 1 capsule by mouth once daily at bedtimetiZANidine HCl 4 mg capsule Take 4 mg by mouth daily at bedtime. 0 Activetake 1 capsule by mouth every eight hourstiZANidine HCl 4 MG 1 capsule as needed Orally Three times a day ActiveComment on above:Take 4 mg by mouth daily at bedtime.traMADol hydrochloride 50 mg oral tablet (1 source)Opioid AgonistStart: 18-37-9859howz 1 tablet by mouth every twelve hours as needed for painTraMADol HCl Tablet 50 MG 1 tablet Tablet Oral Give 1 tablet by mouth every 12 hours as needed for as needed for pain 06/18/2017 20:30:00vitamin b12 1 mg/ml injectable solution (20 sources)Vitamin Z43Qhslu: 40-84-6755bbqyaa 1000 ug by subcutaneous injection every 30 daysStart: 68-32-2430hcfnwy 1000 ug by subcutaneous injection every 30 daysCyanocobalamin (Vitamin B-12) Active 1000 MCG SUBCUT Q30D April 24, 2020 1:00amStart: 78-83-6406eldqkgkqeajgda 1000 mcg/mL Inj 1,000 microgram, IntraMuscular, qMonth, Refills(s) 0 Start Date: 09/14/19 Status: Ordered Repeat number: 1Start: 44-29-3833iiorrcewhqzoom 1000 mcg/mL Inj 1,000 microgram, IntraMuscular, qMonth, Refills(s) 0 Start Date: 09/14/19 Status: Ordered Cyanocobalamin 100 MCG LOZG Inject 100 mcg. ActiveVitamin D2 2000 intl units oral capsule (1 source)Start: 43-30-4522jajp 1 capsule by mouth once dailyVitamin D2 2000 intl units oral capsule 50 mcg = 1 cap(s), Oral, Daily, cap(s), Refills(s) 0 Start Date: 12/15/24 Status: Ordered Repeat number: 1 Completed/Discontinued Medications MedicationDrug Class(es)DatesSig (Normalized)Sig (Original)acetaminophen 325 mg / HYDROcodone bitartrate 5 mg oral tablet (20 sources)Opioid AgonistStart: 06-29-2023 End: 51-83-3757htny 1 tablet by mouth once daily as needed for painHydrocodone- Acetaminophen 5-325 mg tablet Discontinued 1 TAB PO Daily as needed for Pain June 30, 2023 August 07, 2023 11:54amStart: 87-74-4140koar 1 tablet by mouth once daily as neededHYDROcodone-Acetaminophen 5-325 MG 1 tablet as needed Orally once daily (*do not fill until 05/24/23) for 30 days G89.29 Chronic pain Apr, ActiveStart: 51-74-8032boox 1 tablet by mouth once daily as needed HYDROcodone-Acetaminophen 5-325 MG 1 tablet as needed Orally once daily (*do not fill until 04/23/22) for 30 days G89.29 Chronic pain Apr, ActiveStart: 03-25-2023 End: 58-77-0700Hdkuevehghu-Acetaminophen 5-325 mg tablet Discontinued 1 TAB PO As Directed as needed for Pain March 25, 2023 1:00am June 29, 2023 1:17pm Start: 27-69-4531pofv 1 tablet by mouth once daily as neededHYDROcodone- Acetaminophen 5-325 MG 1 tablet as needed Orally daily (*do not fill until 03/12/2023) for 30 days Feb, ActiveStart: 16-75-2114gbkd 1 tablet by mouth every twenty-four hoursHYDROcodone-Acetaminophen 5-325 MG 1 tablet as needed Orally daily for 30 days G89.29 Chronic pain Jan, ActiveStart: 20-67-6735lyqt 1 tablet by mouth every twenty-four hoursHYDROcodone- Acetaminophen 5-325 MG 1 tablet as needed Orally daily for 30 days Dec, ActiveStart: 35-71-5386Krqed 325 mg-5 mg oral tablet 1 tab(s), Oral, q4hr for pain, 12 tab(s), Refill(s) 0, [facility]/pharmacy #[id number], 172, cm, 03/08/22 13:49:00 EST, Height/Length Dosing, 103.6, kg, 03/08/22 13:49:00 EST, WeightDosing Start Date: 03/08/22 Status: Orderedacetaminophen 325 mg / oxyCODONE hydrochloride 5 mg oral tablet (6 sources)Opioid AgonistStart: 05-08-2020 End: 26-83-8259ybck 1 tablet by mouth every four to six hours as needed for pain Oxycodone-Acetaminophen (Percocet) 5-325 mg tablet Discontinued 1 - 2 TAB PO EVERY 4-6 HOURS as needed for pain 40 7 May 08, 2020 September 10, 2022 11:49amStart: 30-71-1850ltuu 1 tablet by mouth every six hours as needed for pain and pain, then take 2 tablets by mouth every six hours as needed for pain and painPercocet Tablet 5-325 MG Tablet Oral Give 1 tablet by mouth every 6 hours as needed for as needed for pain do not exceed 12 tablets a day AND Give 2 tablet by mouth every 6 hours as needed for as needed for pain do not exceed 12 tablets a day 06/18/2017 20:15:00ciprofloxacin 500 mg oral tablet (5 sources)Quinolone AntimicrobialStart: 05-07-2020 End: 80-93-9297vbke 1 tablet by mouth twice dailyCiprofloxacin Hcl 500 mg Tablet Discontinued 500 MG PO Twice daily May 07, 2020 1:00am September 10, 2022 11:47amdocusate sodium 100 mg oral capsule (5 sources)Start: 05-08-2020 End: 88-61-4346bnbo 1 capsule by mouth twice dailyDocusate Sodium (Dok) 100 mg Capsule Discontinued 100 MG PO Twice daily 0 May 08, 2020 1:00amMa2022 11:48amgabapentin 600 mg oral tablet (20 sources)Anti-epileptic AgentStart: 04-24-2020 End: 48-79-4844rlbn 1200 mg by mouth twice dailyGabapentin Discontinued 1200 MG PO Twice daily April 24, 2020 1:00am June 29, 2023 1:13pmStart: 06-26-2017 End: 98-92-1071nrnf 2 tablets by mouth twice dailyGabapentin 600 mg Tablet Discontinued 1200 MG PO Twice daily April 24, 2020 1:00am June 29, 2023 1:13pmStart: 28-64-7154avgx 1 tablet by mouth twice dailytake 1 tablet by mouth three times dailygabapentin (NEURONTIN) 600 MG tablet Take 600 mg by mouth 3 times daily. ActiveComment on above:Take 600 mg by mouth twice daily.hydrOXYzine pamoate 25 mg oral capsule (5 sources)AntihistamineStart: 05-08-2020 End: 93-95-4446ulnx 1 capsule by mouth every six hours as needed for muscle spasmsHydroxyzine Pamoate (Vistaril) 25 mg capsule Discontinued 25 MG PO Q6H as needed for spasms May 08, 2020 1:00am June 29, 2023 1:17pmibuprofen 800 mg oral tablet (7 sources)Nonsteroidal Anti-inflammatory DrugStart: 04-24-2020 End: 12-34-1976kwjh 1 tablet by mouth four times daily as needed for pain Ibuprofen 800 mg Tablet Discontinued 800 MG PO Four times daily as needed for Pain April 24, 2020 1:00am September 10, 2022 11:49amlevothyroxine sodium 0.125 mg oral capsule (20 sources)l-ThyroxineStart: 96-50-5447gfat 1 capsule by mouth once daily levothyroxine 125 mcg (0.125 mg) oral capsule 125 microgram = 1 cap(s), Oral, Daily Start Date: 06/26/17 Status: Ordered Repeat number: 1Start: 84-32-4057xggm 1 tablet by mouth once daily for thyroid dysfunctionSynthroid Tablet 125 MCG 125 mcg Tablet Oral GIVE ONE TAB BY MOUTH EVERY DAY FOR THYROID AGENT 06/19/2017 6:00:00Start: 74-96-9861loks 1 tablet by mouth once dailytake 1 tablet by mouth once daily in the morningLevothyroxine Sodium 125 MCG 1 tablet in the morning on an empty stomach Orally Once a day ActiveComment on above:Take 1 tablet by mouth once daily.Vitamin D3 1000 intl units oral tablet (2 sources)Start: 25-39-0896xqfx 1 tablet by mouth once dailyVitamin D3 1000 intl units oral tablet 1,000 International_Unit = 1 tab(s), Oral, Daily Start Date:09/20/19 Status: Ordered Problems Active Problems Problem ClassificationProblemDateDocumented DateEpisodic/ChronicAbdominal hernia (3 sources)Hiatal csizjf55-80-8141DgehguyhDnxfdmua reactions (2 sources)Vesicular zeuemf05-47-4739AbdqhmteAncdmyi disorders (6 sources)Anxiety; Translations: [Mixed anxiety and depressive disorder] 99-74-3200KrphajrEsedpib ulcer of skin (16 sources)Pressure ulcer of right ankle, stage 2; Translations: [Pressure ulcer of right ankle, stage 1]Onset: 64-59-6554SsnweqbPfmcvfrzlhtk of device; implant or graft (5 sources)Mechanical complication of internal joint prosthesis; Translations: [Pain due to internal orthopedic prosthetic devices, implants and grafts, sequela]Onset: 360882-70-3484FpafwxubToduygvdorayl of surgical procedures or medical care (4 sources)Other complications of procedures, not elsewhere classified, initial encounter; Translations: [OTH COMPLICATIONS PROC NEC INITIAL]Onset: 08-18-2022 EpisodicConditions associated with dizziness or vertigo (1 source)Dizziness and giddiness; Translations: [Dizziness and giddiness]Onset: 20-02-8246LsvngxqcKumrynowmq and other anemia (1 source)Iron deficiency anemia; Translations: [Iron deficiency anemia, unspecified]Onset: 57-80-9204IepahparQxbianvt mellitus with complications (5 sources)Type 2 diabetes mellitus with foot ulcer; Translations: [Type 2 diabetes mellitus with other skin ulcer]Onset: 97-52-1432MokeklsWvvqjirj mellitus without complication (1 source)Diabetes yrmgowcs45-57-7408AnwfxxwEmvcussolf disorders (4 sources)Gastroesophageal reflux disease; Translations: [Gastro-esophageal reflux disease without esophagitis]Onset: 276575-94-0295CdquyjmJvoucemoz hypertension (12 sources)Hypertensive disorder; Translations: [Essential hypertension]Onset: 834535-31-6115IbtdcudTfpfa disorders and dislocations; trauma-related (2 sources)Dislocation of hip joint; Translations: [Unspecified dislocation of unspecified hip, initial encounter]Onset: 56-91-1299ErgqcobyWltwlunlopc deficiencies (7 sources)Cobalamin deficiency; Translations: [Vitamin B deficiency]Onset: 188122-71-7476UmfaynumNaty wounds of extremities (2 sources)Puncture wound without foreign body of right lesser toe(s) without damage to nail, initial encounter; Translations: [Unspecified open wound, right lower leg, initial encounter]Onset: 11-11-4005VldrcrjvZxrycxzamsqnyo (20 sources)Osteoarthritis of right knee joint; Translations: [Unilateral primary osteoarthritis, right knee]Onset: 919302-90-4823IwgkxbtHwgfv aftercare (1 source)Other detention (current) drug therapy; Translations: [OTH CUSTODIAL CURRENT DRUG THERAPY]Onset: 20-36-1402UhjcsvabEsfzc bone disease and musculoskeletal deformities (2 sources)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 (1 source)Other specified symptoms and signs involving the circulatory and respiratory systems; Translations:[OTH SPEC SX SIGNS INVLV CIRC RS]Onset: 64-89-8804IrfeynjgRjrwl connective tissue disease (14 sources)History of right total knee replacement; Translations: [Presence of right artificial knee joint]ChronicOther connective tissue disease (5 sources)History of total knee arthroplasty; Translations: [Presence of right artificial knee joint]56-78-8942VhivjtlPrzed connective tissue disease (1 source)Presence of right artificial knee joint; Translations: [PRESENCE RT ARTIFICIAL KNEE JOINT]Onset: 85-98-6979NksusazWdhth connective tissue disease (1 source)Presence of left artificial hip joint; Translations: [PRESENCE LEFT ARTIFICIAL HIP JOINT]Onset: 44-84-4720IsiuycaTzpeo connective tissue disease (2 sources)Impingement syndrome of shoulder xudayh04-65-1456JmdlecxmOkozw connective tissue disease (1 source)Arthrodesis status; Translations: [Adjacent segment disease of lumbar spine with history of fusion procedure]Onset: 97-70-2244BbnchzwuNdxlb diseases of veins and lymphatics (19 sources)Peripheral venous insufficiency; Translations: [Venous insufficiency (chronic) (peripheral)]40-83-6333BpghuevoIngsq diseases of veins and lymphatics (5 sources)Venous insufficiency (chronic) (peripheral); Translations: [VENOUS INSUFF CHRONIC PERIPHERAL]Onset: 10-67-9658BqgmusbjFdbfs diseases of veins and lymphatics (1 source)Other specified disorders of veinsEpisodicOther fractures (14 sources)Closed fracture of one rib; Translations: [Fracture of one rib, left side, initial encounter for closed fracture]EpisodicOther gastrointestinal disorders (1 source)Occult blood in vobnfi18-13-4751SoqlynumFjlwb nervous system disorders (16 sources)Chronic pain; Translations: [Other chronic pain]34-70-8527Rzhzwxm Other nervous system disorders (10 sources)Other chronic pain; Translations: [Other chronic pain]Onset: 26-70-3700GbrjljhKisov nervous system disorders (3 sources)Kxbtuldjmv65-28-6041BexclphYamzx nervous system disorders (1 source)Other specified polyneuropathies; Translations: [OTHER SPECIFIED POLYNEUROPATHIES]Onset: 42-77-3209QcyogcmJexky nervous system disorders (2 sources)Loiedvod72-66-8531FvzduirxBcaml non-epithelial cancer of skin (3 sources)Carcinoma in situ of skin of wvfyo37-65-5499SyjchnftEwbsf non- traumatic joint disorders (1 source)Other specified arthritis, unspecified site; Translations: [OTHER SPECIFIED ARTHRITIS UNS SITE]Onset: 44-02-5268DblkupcTtein nutritional; endocrine; and metabolic disorders (3 sources)Body mass index 30+ - wfounmy46-87-5756LudnmgyRnzbp nutritional; endocrine; and metabolic disorders (1 source)Morbid obesity; Translations: [Morbid (severe) obesity due to excess calories]Onset: 62-68-0021IwbgkwsKzlhx nutritional; endocrine; and metabolic disorders (4 sources)Obesity; Translations: [Obesity, unspecified]Onset: 06-18-2011 07-63-6807OezukrwKasec nutritional; endocrine; and metabolic disorders (1 source)Rgujtzsgsv37-13-8614YhebeljsAkrcc skin disorders (1 source)Disorder of the skin and subcutaneous tissue, unspecified; Translations: [DISORDER SKIN AND SUBQ TISSUE UNS]Onset: 88-80-6870Tqjjwhus Peripheral and visceral atherosclerosis (3 sources)Peripheral vascular bxgxugc86-03-2474FeekplgDggtcnajy; thrombophlebitis and thromboembolism (8 sources)Phlebitis and thrombophlebitis of superficial vessels of left lower extremity; Translations: [Phlebitis and thrombophlebitis of superficial vessels of right lower extremity]Onset: 01-72-4998OtwmtqimXkyzirtpnaxbke care; fitting of prostheses; and adjustment of devices (1 source)Procedure carried out on subject; Translations: [Encounter for fitting and adjustment of other specified devices]Onset: 75-97-0922JwvcvtbSinvrkro codes; unclassified (2 sources)Mjfxkvku95-12-0132UasrarqfIdfugzxv codes; unclassified (1 source)Acquired absence of other specified parts of digestive tract; Translations: [ACQ ABSENCE OTH PART DIGESTV TRACT]Onset: 19-63-8687Jauoaysg Rheumatoid arthritis and related disease (3 sources)Ankylosing intgmbjizfk09-44-9765PybcfrwQnhtyiopmod; intervertebral disc disorders; other back problems (20 sources)Solitary sacroiliitis; Translations: [Sacroiliitis, not elsewhere classified]Onset: 67-48-8078YomuhbuGaohqexabhx; intervertebral disc disorders; other back problems (20 sources)Lumbar radiculopathy; Translations: [Radiculopathy, lumbar region] Onset: 40-24-6157MdicxrwrDtenlkslgel injury; contusion (14 sources)Contusion of elbow; Translations: [Contusion of left elbow, initial encounter]EpisodicThyroid disorders (19 sources)Hypothyroidism; Translations: [Hypothyroidism, unspecified]Onset: 264347-81-3996BkuxgwgZkzsiiiszvpi (3 sources)CONTACT W/AND (SUSP) EXPOS COVID-19; Translations: [CONTACT W/AND (SUSP) EXPOS COVID-19]Onset: 31-45-1644Ijgdnsov veins of lower extremity (20 sources)Pain co-occurrent and due to varicose veins of bilateral legs; Translations: [Varicose veins of bilateral lower extremities with pain]Onset: 832638-15-8093BgmhcmpmAgsptgh on above:right leg Past or Other Problems Problem ClassificationProblemDateDocumented DateEpisodic/ChronicCoagulation and hemorrhagic disorders (1 source)Spontaneous ecchymoses; Translations: [SPONTANEOUS ECCHYMOSES]Onset: 24-73-3964VrvvuiraBkewrtfgaw and other anemia (1 source)Anemia, unspecified; Translations: [ANEMIA UNSPECIFIED]Onset: 61-28-0820QywilwhtDyqeuvrj mellitus without complication (1 source)Other abnormal glucose; Translations: [OTHER ABNORMAL GLUCOSE]Onset: 42-90-6685OrigmxdhN Codes: Struck by; against (1 source)Striking against or struck by other objects, initial encounter; Translations: [STRIKING AGNST/STRUCK OTH OBJ INIT]Onset: 95-22-8798Iapmbmfv Fracture of lower limb (4 sources)Closed fracture of shaft of fibula; Translations: [Unspecified fracture of shaft of unspecified fibula, initial encounter for closed fracture] Onset: 988451-71-4284FpmhoubzArdjkpoycavm; infection of eye (except that caused by tuberculosis or sexually transmitteddisease) (4 sources)Uveitis; 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]Onset: 07-01-2011 00-22-9115DzziwjeeDswjzax and fatigue (1 source)Other fatigue; Translations: [OTHER FATIGUE]Onset: 72-97-7570Uizlbhua Other circulatory disease (4 sources)Hemorrhage, not elsewhere classified; Translations: [HEMORRHAGE NOT ELSEWHERE CLASSIFIED]Onset: 54-17-9359ZgtavxzbFilfl connective tissue disease (4 sources)Pain in right foot; Translations: [PAIN IN RIGHT FOOT]Onset: 13-06-2063NqpwiehyKnplw connective tissue disease (3 sources)Pain in right toe(s); Translations: [PAIN IN RIGHT TOES]Onset: 38-28-5800ShpujnzxCfkjn connective tissue disease (4 sources)Personal history of other diseases of the musculoskeletal system and connective tissue; Translations: [Personal history of other musculoskeletal disorders]Onset: 621091-35-0842YhhzlszxTnwwp injuries and conditions due to external causes (4 sources)H/O: knee problem; Translations: [Personal history of other (healed) physical injury and trauma]Onset: 257916-42-4898WtuhoekxIdjjk nervous system disorders (3 sources)Anesthesia of skin; Translations: [ANESTHESIA OF SKIN]Onset: 26-66-7030ZudsncyuElwiy non-traumatic joint disorders (5 sources)Pain in right ankle and joints of right foot; Translations: [PAIN IN RIGHT ANKLE]Onset: 88-47-6195UcrijichVsfqd screening for suspected conditions (not mental disorders or infectious disease) (1 source)Encounter for screening for malignant neoplasm of colon; Translations: [ENC SCREEN MALIG NEOPLASM COLON]Onset: 39-01-8959WrvtlwamRsuzq skin disorders (4 sources)Loss of hair; Translations: [Nonscarring hair loss, unspecified] Onset: 727186-06-9166GpjzvhjfXchztbzv codes; unclassified (4 sources)History of operative procedure on foot; Translations: [Other specified postprocedural states]Onset: 900517-30-2430MkpwfnktXptfxiak codes; unclassified (4 sources)Human leukocyte antigen B27 test positive; Translations: [Genetic susceptibility to other disease]Onset: 965485-99-5839WvywqwveSsgb and subcutaneous tissue infections (1 source)Cellulitis of right lower limb; Translations: [CELLULITIS OF RIGHT LOWER LIMB]Onset: 36-80-6365InpgkgedGfjssvwewqis (3 sources)oicbrp65-74-1138Vnszwqlnable (3 sources)pinched nerve in back L Unclassified (1 source)CONTACT W/AND (SUSP) EXPOS COVID-19; Translations: [CONTACT W/AND (SUSP) EXPOS COVID-19]Onset: 01-03-2022 Results Test NameValueInterpretationReference RangeFacilityBI MAMMOGRAM SCREENING TOMOSYNTHESIS BILATERALon 06-23-3045AS MAMMOGRAM SCREENING TOMOSYNTHESIS BILATERALThis is a summary report. The complete report is available in the patient's medical record. If you cannot access the medical record, please contact the sending organization for a detailed fax or copy. Examination: BI MAMMOGRAM SCREENING TOMOSYNTHESIS BILATERAL Clinical History: screening Technique: Screening digital mammography study of both breasts was performed with 2-D and 3-D tomosynthesis imaging. Study was compared to the prior exam dated 08/05/2023. Findings: There is no evidence of interval dominant spiculated mass, grouped microcalcifications, or skin thickening which would be suggestive of malignancy. Mild scattered benign-appearing calcifications including vascular calcifications are noted bilaterally. Axillary lymph nodes including partially visualized lymph nodes are noted bilaterally and appear grossly unremarkable. IMPRESSION: Impression: No specific evidence of malignancy seen in either breast. BIRADS 2 - Benign Findings DENSITY: There are scattered areas of fibroglandular density. FOLLOW-UP: Routine Screening Mammogram Board Certified Radiologists. Accredited by the ACR and FDA. MAMMOGRAPHY IS VERY IMPORTANT TO YOUR HEALTH. THE [place] [employer]ET[employer] GUIDELINES RECOMMEND THATWOMEN 40 YEARS OF AGE AND OLDER SHOULD HAVE A MAMMOGRAM EVERY YEAR. A REMINDER LETTER WILL BE SENT AT THE APPROPRIATE TIME. ELECTRONICALLY SIGNED BY: Amilcar Ling M.D.NormalNot AvailableProgress Noteson 13-89-2304Ilcryraasuymn Authentication Interface Message TextPatient was identified by name and date of . David IgnacioMercy Health Lorain Hospital SystemProgress Noteson [id number] Authentication Interface Message TextCONSULTED BY: Bladimir Vick MD CC: Can not stand up straight HPI: 74yo Lhd female who does not work. She is status post 5 low back surgery done elsewhere. She has had a Pseudomonas aeruginosa infection in her low back. She states it is becoming more difficult to look at the horizon. She has noticed that her walking stamina has decreased significantly. She is fairly healthy. She denies symptoms of myelopathy -- no clumsiness in her hands no clumsiness in her gait she does have some bowel bladder urgency but everything feels normal when she hygiene. She can lie flat with her head resting on a pillow but she tends to lie with her head somewhat upright.. She has had a R total hip replacement and has been told she needs her L 1 done also. She has not had multiple abdominal nor pelvic surgeries. For PMHx, PSHx, medications, allergies, SOCHx, ROS and FAMHx, please refer to the scanned New patient Questionnaire PHYSICAL EXAM: General: AXOX3, no acute distress. Lower extremities: She rises cautiously from a seated position by pulling herself up by the counter. She walks with an obvious positive sagittal deformity. She walks with a wheeled walker. Heel walking, toe walking and tandem walking can not be tested. She gets on and off the exam table cautiously. She can not lie flat on the exam table she does have pain when she does this. 5/5 all muscle groups bilateral lower extremities and sensation is globally intact to light touch L2-S1 dermatomes. DTRs are normoactive and equal in her knee jerk and ankle jerk and she has no clonus. Full nontender range of motion bilateral ankles and knees. Decreased range of motion of her L hip compared to her R. Upper extremities: Spine: Lumbar spine and inspection shows a well-healed incision no evidence of ongoing infection. She has difficulty standing upright even when forced. Cervical spine range of motion is fairly full nontender, negative Lhermitte's. INVESTIGATIONS: Standing scoliosis xrays performed CT scan lumbar performed Hounsfield units are 160 above her last instrumented level MRI thoracic performed IMPRESSION: 74yo female status post multiple surgeries, failed back, post laminectomy syndrome. PLAN: I told her I would be happy to help her. I am very concerned about the history of the PA infection. We would have to make sure all of her inflammatory markers are normal. If they are elevated the 1st step and reconstructing her would be to remove the posterior instrumentation. She has an anterior cage and side plate at L1-2 but I do not think we need to take that out. And just looking at her studies initially the plan would be an ALIF at L5-S1 and probable PSOs above and below her anterior fusion at L1-2. I told her I need to discuss with Dr. Vick of further workup including labs and evaluation of her bone density.NormalThe [facility] Lang[facility] Hospital — Long IslandLandmark Games And Toys SystemUrine Cultureon 74-79-5836Aajofzba identified Cx Nom (U)ORGANISM: Escherichia coli (O:ESCCOL) [place] Count 15,000 ORGANISM: Methicillin Resis Staph Aureus (O:MRSA) [place] Count 75,000 Aerobic BEATRIZ Charge (NMIC56) SUSCEPTIBILITY [...] RESISTANT TO ALL B-LACTAM DRUGS. PERFORMED BY: [place] [address] PATHOLOGIST PERSONAL INJURY PARALEGAL FRANKLYN MARIE M.D.[facility] Physician GroupComment on above: Performed By: #### CUU #### [place] [address] USAMR Thoracic spine WO contraston 22-73-0463Gyxiksfff Clinic MRI THORACIC SPINE WO IVCONon 83-68-7057ZDA THORACIC SPINE WO IVCON* * *Final Report* * * DATE OF EXAM: Aug 08 2023 4:14PM Q 0325 - MRI THORACIC SPINE WO IVCON [...] and assume there are 5 lumbar-type vertebrae. Supervisor Heat Treating[facility] Transcribe Date/Time: Aug 08 2023 9:09P Dictated by : HARRY JONES MD This examination was interpreted and the report reviewed and electronically signed by: HARRY JONES MD on Aug 08 2023 9:14PM EST [id number] Hospital LUMBAR SPINE WO IVCONon 49-49-2793GQ LUMBAR SPINE WO IVCON* * *Final Report* * * DATE OF EXAM: Jul 13 2023 11:11AM [facility] 0508 - CT LUMBAR SPINE WO IVCON [...] are 5 lumbar-type vertebrae. Anatomic variant: None. Data Center Engineer (topogram) images: Left femoroacetabular arthroplasty. Alignment: Mild [...] any questions regarding this interpretation, please call [phone]. If you are unable to reach us at the number above, please feel free to contact [facility] eRadiology at [phone]. [id number]_IDCSIACNNormalMedina Hospital Lumbar spine WO contraston 99-35-6120Huknbkcin ClinicCNOVon 10-28-1279WPHCYkpfsg Visit (SPNSMN) LEELEE CEDILLO ([id number]) 1950 F Date Time Provider Department 06/24/23 1:40 PM GHANSHYAM LOMBARDI SPKENYA During your visit today, we recorded the [...] Ghanshyam Lombardi MD Referring Provider: SARA VICK [[id number]] Allergies As of Date: 06/24/2023 Noted Allergy Reaction SULFA (SULFONAMIDE ANTIBIOTICS) 07/16/2006 Date Reviewed: 06/24/2023 Reviewed by: Kaur Manzano MA - Fully Assessed Reason for Visit: New Patient [172] Primary Visit Diagnosis:Adjacent segment disease of lumbar spine with history of fusion procedure [M51.36, Z98.1] Other Visit Diagnosis:Chronic bilateral low back pain with bilateral sciatica [M54.42, M54.41, G89.29] Order(s):MRI THORACIC SPINE WO IVCON [[id number]] Order #: [id number] FUTURE CT LUMBAR SPINE WO IVCON [[id number]] Order #: [id number] FUTURE Prescriptions as of 06/24/2023 - pantoprazole [...] 01/07/2017 Encounter Status:Closed by GHANSHYAM LOMBARDI on 06/24/23[facility]XR [facility]BAR [facility]V AP/LAT/ FLEX/EXTon 83-47-7234TA LUMBAR 4V AP/LAT/ FLEX/EXT * * *Final [...] Number of different views (projections): 2 (accession [id number]), 4 (accession [id number]) COMPARISON: Radiographs dated 09/23/2021 RESULT: Counting reference: [...] and pubic symphysis. No other significant abnormality. IMPRESSION: Postoperative changes with no evidence of hardware complication. Supervisor Heat Treating: ELAINE Transcribe Date/Time: Jun 24 2023 12:52P Dictated by : LATASHA QUEZADA MD This examination was interpreted and the report reviewed and electronically signed by: LATASHA QUEZADA MD on Jun 24 2023 12:55PM EST [id number] Shelby HospitalXR Lumbar spine Views W flexion and W extensionon 86-84-6670Vqkpsqiyk ClinicXR SCOLIOSIS 2V PA STAND/LAT on 39-21-9642NB SCOLIOSIS 2V PA STAND/LAT* * *Final Report* * * DATE OF [...] Number of different views (projections): 2 (accession [id number]), 4 (accession [id number]) COMPARISON: Radiographs dated 09/23/2021 RESULT: Counting reference: [...] and pubic symphysis. No other significant abnormality. IMPRESSION: Postoperative changes with no evidence of hardware complication. Supervisor Heat Treating: PSCFranklyn Transcribe Date/Time: Jun 24 2023 12:52P Dictated by : LATASHA QUEZADA MD This examination was interpreted and the report reviewed and electronically signed by: LATASHA QUEZADA MD on Jun 24 2023 12:55PM EST [id number]_IDCSIACNNormalCleveland Clinic [facility] Thoracic and lumbar spine Views for scoliosis W standingon 06-23-7799Nlcnopkko ClinicVC CONSULT FOLLOWUPon 66-74-4787MY CONSULT FOLLOWUPPatient: RENA LEELEE M. Exam Date: 08/08/2022 : 1950 Gender:F Ordering : DR ALFRED UMAÑA M.D. Admission #: [id number] Family : Order #: [id number] CLICK HERE TO VIEW EXAM RADIOLOGY REPORT [...] by: Alfred Umaña MD on 08/08/2022 at 10:59[facility] HospitalVC EXT VENOUS LT LIMITEDon 08-12-5458OY EXT VENOUS LT LIMITEDPatient: LEELEE CEDILLO Exam Date: 08/08/2022 : 1950 Gender:F Ordering : DR ALFRED UMAÑA M.D. Admission #: [id number] Family : Order #: [id number] CLICK HERE TO VIEW EXAM RADIOLOGY REPORT [...] by: Alfred Umaña MD on 08/08/2022 at 09:43[facility] CHEMISTRYOrdered By: SYSTEM SYSTEM on 83-49-0137Xojre gap [Moles/Vol]9 mmol/L Normal6 - 16 mEq/LFTMC RemisolChloride [Moles/Vol]106 mmol/MMcslbl956 - 111 mmol/LFTMC RemisolCholesterol [Mass/Vol]160 mg/cKMadnum832 - 200 mg/dLFT RemisolCholesterol in HDL [Mass/Vol]52 mg/dLInvalid Interpretation CodeFTMC RemisolCholesterol in LDL [Mass/Vol]91 mg/dLNormal<=129mg/dLFTMC Remisol Cholesterol in VLDL [Mass/Vol]17 mg/dLNormal7 - 40 mg/dLFTMC RemisolCO2 [Moles/Vol]26 mmol/AVseloh44 - 31 mmol/LFTMC RemisolFree T4 [Mass/Vol]1.91 ng/dL High0.58 - 1.64 ng/dLFTMC RemisolPotassium [Moles/Vol]4.0 mmol/LNormal3.5 - 5.3 mmol/LFTMC RemisolSodium [Moles/Vol]137 mmol/QHwqbqb896 - 145 mmol/LFTMC Remisol Triglyceride [Mass/Vol]83 mg/dLNormal<=149mg/dLFTMC RemisolTSH Qn0.16 m[IU]/LLow 0.34 - 5.60 mcIU/mLFTMC RemisolHEMATOLOGYOrdered By: Tonya Martin on 97-07-4334STJ corrected for nucl RBC Auto (Bld) [#/Vol]7.8 E9/LNormal4.0 - 11.0 E9/LFTMC HemeAutoSSCHEMISTRYOrdered By: SYSTEM SYSTEM on 27-80-8254Nmwjxpoq I.cardiac [Mass/Vol]6.70 pg/mLLow10.10 - 27.10 pg/mLFTMC RemisolTroponin I.cardiac [Mass/Vol]5.40 pg/mLLow10.10 - 27.10 pg/mLFTMC RemisolTroponin I.cardiac [Mass/Vol]6.00 pg/mLLow10.10 - 27.10 pg/mLFTMC RemisolAnion gap [Moles/Vol]13 mmol/LNormal6 - 16 mEq/LFTMC RemisolCalcium [Mass/Vol]9.3 mg/dL Normal8.9 - 11.1 mg/dLFTMC RemisolChloride [Moles/Vol]101 mmol/BWnvgzw344 - 111 mmol/LFTMC RemisolCO2 [Moles/Vol]27 mmol/SEmevro35 - 31 mmol/LFTMC Remisol Creatinine [Mass/Vol]0.8 mg/dLNormal0.5 - 1.3 mg/dLFTMC RemisolGFR/1.73 sq M.predicted among blacks MDRD (S/P/Bld) [Vol rate/Area]mL/min/1.73 x0Lakufw >=59mL/min/1.73 m2FT Chem SGFR/1.73 sq M.predicted among non-blacks MDRD (S/P/Bld) [Vol rate/Area]mL/min/1.73 l4Bmnaqa>=59mL/min/1.73 m2[facility] Chem S Glucose [Mass/Vol]88 mg/bXLnvtck90 - 199 mg/dLFTMC RemisolMagnesium [Mass/Vol] 2.0 mg/dLNormal1.3 - 2.4 mg/dLFTMC RemisolPotassium [Moles/Vol]3.6 mmol/LNormal 3.5 - 5.3 mmol/LFTMC RemisolSodium [Moles/Vol]137 mmol/VJrrzcg586 - 145 mmol/L FT[facility] RemisolUrea nitrogen [Mass/Vol]11 mg/dLNormal5 - 21 mg/dLFTMC RemisolUrea nitrogen/Creatinine [Mass ratio]14 mg/nkRihdif53 - 20FTMC RemisolCHEMISTRY Ordered By: Lab ROPUser on 11-98-6053Vtgcqxm [Mass/Vol]106 mg/pSIqkv24 - 99 mg/dLFTMC POC SubsectionComment on above:Result Comment: Notified RN/MDPOC Device [id number] Interpretation CodeFTMC POC SubsectionPOC User ID [id number] Interpretation CodeFTMC POC SubsectionPOC UsernameYOUREkta PELLETIER Interpretation CodeFTMC POC SubsectionHEMATOLOGYOrdered By: SYSTEM SYSTEM on 80-44-9949Bbwrybqtx/100 WBC (Bld)0.5 %Normal0.0 - 2.0 %FT[facility] HemeAutoSS Basophils/Leukocytes Auto (Bld) [Pure # fraction]0.1 E9/LNormal0.0 - 0.2 E9/L [facility] HemeAutoSSEosinophils/100 WBC (Bld)0.5 %Normal0.0 - 8.0 %[facility] HemeAutoSS Eosinophils/Leukocytes Auto (Bld) [Pure # fraction]0.1 E9/LNormal0.0 - 0.5 E9/L [facility] HemeAutoSSLymphocytes/100 WBC (Bld)14.5 %Wlexey89.0 - 50.0 %[facility] HemeAutoSS Lymphocytes/Leukocytes Auto (Bld) [Pure # fraction]2.1 E9/LNormal1.0 - 4.0 E9/L [facility] HemeAutoSSMonocytes/100 WBC (Bld)6.5 %Normal4.0 - 14.0 %[facility] HemeAutoSS Monocytes/Leukocytes Auto (Bld) [Pure # fraction]0.9 E9/LNormal0.2 - 1.0 E9/L [facility] HemeAutoSSNeutrophils/100 WBC (Bld)78.0 %High36.0 - 75.0 %[facility] HemeAutoSS Neutrophils/Leukocytes Auto (Bld) [Pure # fraction]11.4 E9/LHigh2.0 - 7.5 E9/L [facility] HemeAutoSSHEMATOLOGYOrdered By: Davida Suh on 65-22-1810Qkwrxbvueya distribution width (RBC) [Ratio]13.9 %Rsbpua88.9 - 14.2 %[facility] HemeAutoSS Hematocrit (Bld) [Volume fraction]47.0 %High34.0 - 46.0 %[facility] HemeAutoSS Hemoglobin (Bld) [Mass/Vol]15.3 g/iHRhwtwf34.0 - 16.0 gm/dLFTMC HemeAutoSSMCH (RBC) [Entitic mass]29.2 otUxyxov21.0 - 34.0 pgFTMC HemeAutoSSMCHC (RBC) [Mass/Vol]32.7 g/aRMxaebl63.4 - 36.0 gm/dLFTMC HemeAutoSSMCV (RBC) [Entitic vol] 89.3 iBSmyunw58.0 - 100.0 fLFTMC HemeAutoSSPlatelet mean volume (Bld) [Entitic vol]6.7 fLNormal6.4 - 10.8 fLFTMC HemeAutoSSPlatelets (Bld) [#/Vol]324.0 E9/L Rzaxzm352.0 - 500.0 E9/LFTMC HemeAutoSSRBC (Bld) [#/Vol]5.3 E12/LNormal4.3 - 5.9 E12/LFTMC HemeAutoSSWBC corrected for nucl RBC Auto (Bld) [#/Vol]14.6 E9/LHigh 4.0 - 11.0 E9/LFTMC HemeAutoSSURINALYSISOrdered By: Katerina Parker on 07-26-2022 Bacteria LM Ql (Urine sed)Trace /HPFNormalTrace/HPFFTMC UA Auto SSBilirubin Ql (U)Negative (07/26/22 4:49 PM)NormalNegativeIN[facility] UA Auto SSClarity (U)Clear (07/26/22 4:49 PM)NormalClearFMEMORIAL [facility] UA Auto SSColor (U)Yellow (07/26/22 4:49 PM)NormalYellowFT UA Auto SSEpithelial cells.squamous LM.HPF (Urine sed) [#/Area]3-4 /HPFNormal0-2/HPFFTMC UA Auto SSGlucose Test strip (U) [Mass/Vol]Negative (07/26/22 4:49 PM)NormalNegativeINTE[facility] UA Auto SSHemoglobin Ql (U)Negative (07/26/22 4:49 PM)NormalNegativeINTEGR[facility] UA Auto SSKetones (U) [Mass/Vol]Negative (07/26/22 4:49 PM)NormalNegativeINTEGR[facility] UA Auto SSLithium.plasma/[place].RBC (Bld) [Mass ratio]0-3 /HPFNormal0-3/HPFFTMC UA Auto SSNitrite Ql (U)Negative (07/26/22 4:49 PM)NormalNegativeINTEGR[facility] UA Auto SSpH (U)6.5 *NA* (07/26/22 4:49 PM)Invalid Interpretation Code5.0 - 9.0[facility] UA Auto SSProtein (U) [Mass/Vol]Negative (07/26/22 4:49 PM)NormalNegativeINTEGRIS [facility] UA Auto SSSpecific gravity (U) [Rel density] <=1.005 *NA* (07/26/22 4:49 PM)Invalid Interpretation Code1.005 - 1.030[facility] UA Auto SSUA Spec DescClean Catch (07/26/22 4:49 PM)NormalINTEGRIS [facility]NADIAN [facility] UA Auto SSUrobilinogen Qn (U)0.8443608 {Malu'U}/dL Normal0.0 - 1.0 EU/dLINTEGRIS [facility]DIAN [facility] UA Auto SSWBC Auto Ql (U)Trace *ABN* (07/26/22 4:49 PM)Invalid Interpretation CodeNegativeINTEGRIS [facility] UA Auto SSWBC LM.HPF (Urine sed) [#/Area]0-5 /HPFNormal0-5/HPFINTEGRIS [facility] UA Auto SSSURGICAL PATH REPORTon 87-76-1295PSKFZPGH PATH REPORTSFulton County Health Center Department of Pathology [address] [place] [phone] Name: LEELEE CEDILLO : 1950 [facility] [id number] Number: Gender Female Nimesh MARTINEZ HAGERMAN : n: Admit 71 years Attending ADELE FLEMING Age: Provider: Ordering ADELE FLEMING Provider: Consulti Surgical Pathology Report ng: ACCESSION: COLLECTED DATE/TIME: RECEIVED DATE/TIME: PATHOLOGIST: [id number] 07/24/2022 12:16 EDT 07/24/2022 12:16 EDT MICHELINE STERN MD Final Diagnosis Report for [facility], [place] RIGHT ANKLE, PUNCH BIOPSY: - FRAGMENT [...] MP:b 07/24/2022 Tissue pathology report for: [facility], [address] [place] [id number]; ____ Print 07/25/2022 15:48 EDT Number: Date/Time: [facility] Department of Pathology [address] [place] [phone] Name: LEELEE CEDILLO : 1950 [employer] [id number] Number: Gender Female Locatio BASILIOFrida OSWALDO : n: Admit 71 years Attending ADELE FLEMING Age: Provider: Ordering ADELE FLEMING Provider: Consulti Surgical Pathology Report ng: ACCESSION: COLLECTED DATE/TIME: RECEIVED DATE/TIME: PATHOLOGIST: [id number] 07/24/2022 12:16 EDT 07/24/2022 12:16 EDT LEENA RUFF, MICHELINE Gross Description PATHOLOGY SERVICES PROVIDED BY [employer] (CLIA #[id number]) in cooperation with [facility] at [address] [place] [address] ( CLIA #[id number]) Microscopic Diagnosis The final diagnosis is based on a microscopic exam of open claims representative sections. Codes CPT CODE: 37077 ____ Print 07/25/2022 15:48 EDT Number: Date/Time: [facility] HospitalComment on above:Performed By: #### [id number] #### [facility] [address] [place], [place] [id number] Hardening Machine Operator: Jared Oh, [facility] GLUCOSEon 80-90-9996Sjjjsdb [Mass/Vol]114 mg/dLCritically phme26-757FbzCorey HospitalComment on above: Performed By: #### POCGLUC #### [facility] [address] [place] [address] Dr. Salvador YungGlucose [Mass/Vol]112 mg/dLCritically kcmz34-058Ayj [facility] HospitalComment on above:Performed By: #### POCGLUC #### [facility] [address] [place] [address] Dr. Salvador YungCovid-19 PCR (CVDTB)on 86-24-9074VWFP-CoV-2 (COVID-19) RNA VIVIANA+probe Ql (Unsp spec)Not detectedNormalNOT DETECTEDCorey Hospital Comment on above:Result Comment: This test is not yet approved or cleared by the [place] FDA. When there are no FDA-approved or cleared tests available, and other criteria are met, FDA can make tests available under an emergency access mechanism called an Emergency Use Authorization (EUA). The EUA for this test is supported by the Hand Cutter of Health and Human Service's (HHS's) declaration that circumstances exist to justify the emergency use of in vitro diagnostics for the detection and/or diagnosis of the virus that causes COVID- 19. This EUA will remain in effect (meaning [...] of clinical signs and symptoms consistent with SARS-CoV-2.Performed By: #### CVDTBH #### [facility] [address] [place] [address] Dr. Salvador YungPROF CHEM 8 (BAS METB)on 43-52-9702Lrrjk gap [Moles/Vol]12.0 mmol/LNormalCorey HospitalComment on above:Performed By: #### BMP #### [facility] [address] [place] [address] Dr. Salvador YungCalcium [Mass/Vol]9.4 mg/dLNormal8.5-10.1The [facility] Comment on above:Performed By: #### BMP #### [facility] [address] [address] [address] Salvador YungChloride [Moles/Vol]100 mmol/VHsayma52-147YdgCorey Hospital Comment on above:Performed By: #### BMP #### [facility] [address] [address] [address] Salvador YungCO2 [Moles/Vol]29.8 mmol/ATopnbh85.0-32.0The [facility] Comment on above:Performed By: #### BMP #### [facility] [address] [place] [address] Dr. Salvador YungCreatinine [Mass/Vol]0.91 mg/dLNormal0.55-1.02The [facility] HospitalComment on above:Performed By: #### BMP #### [facility] [address] [place] [address] Dr. Franco ChangEGFR-AF MARSHALLESE>60Normal>=60The [facility] HospitalComment on above:Performed By: #### BMP #### [facility] [address] [place] [address] Dr. Franco ChangEGFR-NON AF MARSHALLESE>60Normal>=60The [facility] HospitalComment on above:Performed By: #### BMP #### [facility] [address] [address] [address] Salvador YungGlucose [Mass/Vol]82 mg/sVXkqhao11-548Tsw [facility] Comment on above:Performed By: #### BMP #### [facility] [address] [address] [address] Salvador YungPotassium [Moles/Vol]3.8 mmol/LNormal3.5-5.1The [facility] Comment on above:Performed By: #### BMP #### [facility] [address] [place] [address] Dr. Salvador YungSodium [Moles/Vol]138 mmol/BAqtmbb995-905Tsz [facility] Comment on above:Performed By: #### BMP #### [facility] [address] [address] [address] Salvador Chavez nitrogen [Mass/Vol]12.0 mg/dLNormal7.0-18.0The [facility] HospitalComment on above:Performed By: #### BMP #### [facility] [address] [address] [address] Salvador Chavez nitrogen/Creatinine [Mass ratio]13.2 mg/mgNormSelect Medical Specialty Hospital - Southeast OhioComment on above:Performed By: #### BMP #### [facility] [address] [address] [address] Salvador YungVC INJ SCL JESSICA METAL ALLOY SCIENTIST VEINSon 64-11-2087AW INJ SCL JESSICA METAL ALLOY SCIENTIST VEINS Patient: LEELEE CEDILLO Exam Date: 07/01/2022 : 1950 Gender:F Ordering : DR ALFRED UMAÑA M.D. Admission #: [id number] Family : Order #: [id number] CLICK HERE TO VIEW EXAM RADIOLOGY REPORT [...] by: Julio Lobato M.D. on 07/01/2022 at 15:22[facility] HospitalVC CONSULT FOLLOWUPon 52-96-4881IH CONSULT FOLLOWUPPatient: LEELEE CEDILLO. Exam Date: 06/19/2022 : 1950 Gender:F Ordering : DR ALFRED UMAÑA M.D. Admission #: [id number] Family : Order #: [id number] CLICK HERE TO VIEW EXAM RADIOLOGY REPORT [...] by: Alfred Umaña MD on 06/19/2022 at 14:17[facility] HospitalVC EXT VENOUS LT LIMITEDon 15-69-3062ES EXT VENOUS LT LIMITEDPatient: LEELEE CEDILLO Exam Date: 06/19/2022 : 1950 Gender:F Ordering : DR ALFRED UMAÑA M.D. Admission #: [id number] Family : Order #: [id number] CLICK HERE TO VIEW EXAM RADIOLOGY REPORT [...] by: Alfred Umaña MD on 06/19/2022 at 14:15NProvidence HospitalVC INJ FOAM SCLERO W US MLTIon 62-28-4447BT INJ FOAM SCLERO W US MLTIPatient: REAGAN CEDILLOSANTI Fuentes Exam Date: 06/13/2022 : 1950 Gender:F Ordering : DR ALFRED UMAÑA M.D. Admission #: [id number] Family : Order #: [id number] CLICK HERE TO VIEW EXAM RADIOLOGY REPORT [...] up for color duple (more content not included)...NormalThe [facility] HospitalVC CONSULT FOLLOWUPon 22-86-0667FQ CONSULT FOLLOWUPPatient: LEELEE CEDILLO Exam Date: 06/10/2022 : 1950 Gender:F Ordering : DR ALFRED UMAÑA M.D. Admission #: [id number] Family : Order #: [id number] CLICK HERE TO VIEW EXAM RADIOLOGY REPORT [...] by: Julio Lobato M.D. on 06/10/2022 at 12:36[facility] EXT VENOUS RT LIMITEDon 55-28-2512HZ EXT VENOUS RT LIMITEDPatient: LEELEE CEDILLO Exam Date: 06/10/2022 : 1950 Gender:F Ordering : DR ALFRED UMAÑA M.D. Admission #: [id number] Family : Order #: [id number] CLICK HERE TO VIEW EXAM RADIOLOGY REPORT [...] by: Julio Lobato M.D. on 06/10/2022 at 12:33[facility] HospitalVC INJ FOAM SCLERO W US MLTIon 44-84-0062EL INJ FOAM SCLERO W US MLTI Patient: LEELEE CEDILLO Exam Date: 06/03/2022 : 1950 Gender:F Ordering : DR ALFRED UMAÑA M.D. Admission #: [id number] Family : Order #: [id number] CLICK HERE TO VIEW EXAM RADIOLOGY REPORT PROCEDURE: VEIN CENTER INJECTION FOAM SCLEROSING SOLUTION WITH ULTRASOUND MULTIPLE VEINS COMPARISON: None. Pre-operative Diagnosis: CEAP class C6 venous insufficiency with pain, tenderness, edema and incompetent right small saphenous vein and whale trainer vein, incompetent varicose veins, venous insufficiency right leg secondary to venous incompetence Post-operative Diagnosis: CEAP class C6 venous insufficiency with pain, tenderness, edema and incompetent right small saphenous vein and whale trainer vein, incompetent varicose veins, venous insufficiency right [...] on the treated l (more content not included)...[facility]VC CONSULT FOLLOWUPon [id number] CONSULT FOLLOWUPPatient: LEELEE CEDILLO Exam Date: 05/28/2022 : 1950 Gender:F Ordering : DR ALFRED UMAÑA M.D. Admission #: [id number] Family : Order #: [id number] CLICK HERE TO VIEW EXAM RADIOLOGY REPORT [...] by: Alfred Umaña MD on 05/28/2022 at 11:44[facility] HospitalVC EXT VENOUS RT LIMITEDon 70-63-7373WY EXT VENOUS RT LIMITEDPatient: LEELEE CEDILLO Exam Date: 05/28/2022 : 1950 Gender:F Ordering : DR ALFRED UMAÑA M.D. Admission #: [id number] Family : Order #: [id number] CLICK HERE TO VIEW EXAM RADIOLOGY REPORT [...] extends to distal lower leg. Thrombus in whale trainer distal medial lower leg 2.8 mm from [...] by: Alfred Umaña MD on 05/28/2022 at 11:30NormDel[facility] AUTO DIFFon 08-28-5156ZZOR #0.1 103/ulNormal0.0-0.1The [facility] HospitalComment on above:Performed By: #### CBC #### [facility] [address] [address] [address] Salvador YungBasophils/100 WBC (Bld)0.6 %Normal0.2-2.0The [facility] Comment on above:Performed By: #### CBC #### [facility] [address] [place] [address] Dr. Salvador Sosa #0.1 103/ulNormal0.0-0.7The [facility] HospitalComment on above: Performed By: #### CBC #### [facility] [address] [place] [address] Dr. Salvador Murilloosinophils/100 WBC (Bld)0.6 %Critically low0.9-7.0The [facility] HospitalComment on above:Performed By: #### CBC #### [facility] [address] [place] [address] Dr. Salvador Murillorythrocyte distribution width (RBC) [Ratio]12.4 %Hcpbez59.0-15.0 The [facility] HospitalComment on above:Performed By: #### CBC #### [facility] [address] [place] [address] Dr. Salvador YungHematocrit (Bld) [Volume fraction]43.1 %Qswryd95.0-48.0The [facility] HospitalComment on above:Performed By: #### CBC #### [facility] [address] [place] [address] Dr. Salvador YungHemoglobin (Bld) [Mass/Vol]13.8 g/fZUuoqow35.0-16.0The [facility] HospitalComment on above:Performed By: #### CBC #### [facility] [address] [address] [address] Salvador Lyle #0.06 10e3/ulCritically high0.00-0.03The [facility] Comment on above:Performed By: #### CBC #### [facility] [address] [address] [address] Salvador Lyle %0.7 %Critically high0.0-0.5The [facility] HospitalComment on above:Performed By: #### CBC #### [facility] [address] [place] [address] Dr. Salvador Colby #1.7 103/ulNormal1.2-3.8The [facility] HospitalComment on above:Performed By: #### CBC #### [facility] [address] [place] [address] Dr. Salvador Salazarhocytes/100 WBC (Bld)20.2 %Critically low20.5-60.0The [facility] HospitalComment on above:Performed By: #### CBC #### [facility] [address] [place] [address] Dr. Salvador SnyderUAL DIFF REQNONormalThe [facility] HospitalComment on above: Performed By: #### CBC #### [facility] [address] [place] [address] Dr. Salvador Schwartz (RBC) [Entitic mass]30.1 rjVtjksh12.7-34.0The [facility] HospitalComment on above:Performed By: #### CBC #### [facility] [address] [place] [address] Dr. Salvador Schwartz (RBC) [Mass/Vol]32.0 g/dZEahfka43.9-35.2The [facility] HospitalComment on above:Performed By: #### CBC #### [facility] [address] [place] [address] Dr. Salvador Schwartz (RBC) [Entitic vol]93.9 tLMntfge59.0-99.0The [facility] HospitalComment on above:Performed By: #### CBC #### [facility] [address] [address] [address] Salvador Espinoza #0.5 103/ulNormal0.3-0.8The [facility] HospitalComment on above:Performed By: #### CBC #### [facility] [address] [address] [address] Salvador Romeroocytes/100 WBC (Bld)6.1 %Normal1.7-12.0The [facility] Comment on above:Performed By: #### CBC #### [facility] [address] [place] [address] Dr. Salvador Purdy #6.1 103/ulNormal1.4-6.5The [facility] HospitalComment on above:Performed By: #### CBC #### [facility] [address] [place] [address] Dr. Salvador YungNeutrophils/100 WBC (Bld)71.8 %Fzoqvu47.0-75.0The [facility] HospitalComment on above:Performed By: #### CBC #### [facility] [address] [place] [address] Dr. Salvador Miller mean volume (Bld) [Entitic vol]8.2 fLCritically low 9.5-13.5The [facility] HospitalComment on above:Performed By: #### CBC #### [facility] [address] [place] [address] Dr. Salvador YungPLT246 103/sbFcarxn334-819Owe [facility] HospitalComment on above: Performed By: #### CBC #### [facility] [address] [place] [address] Dr. Salvador YungRBC4.59 106/ulNormal4.20-5.40The [facility] HospitalComment on above:Performed By: #### CBC #### [facility] [address] [place] [address] Dr. Salvador YungWBC8.5 103/ulNormal4.0-11.0The [facility] HospitalComment on above: Performed By: #### CBC #### [facility] [address] [address] [address] Salvador YungFREE T3on 68-95-2306AVRX T32.14 pg/mlLCritically low2.18-3.98The [facility] HospitalComsouthwest regional rehabilitation center on above:Performed By: #### POCGLUC #### [facility] [address] [address] [address] Salvador YungGLYCOHEMOGLOBIN A1Con 29-64-8815UEE RECOMMENDATIONSEE BELOWNormmo The [facility] HospitalComment on above:Result Comment: ADA RECOMMENDED LIMIT 4.0 - 6.0 ADA THERAPEUTIC TARGET < 7.0 ACTION SUGGESTED > 7.0Performed By: #### POCGLUC #### [facility] [address] [place] [address] Dr. Salvador YungGlucose [Mass/Vol]100 mg/dLNoAdena Regional Medical CenterComment on above:Performed By: #### POCGLUC #### [facility] [address] [place] [address] Dr. Salvador YungHbA1c (Bld) [Mass fraction]5.1 %Normal4.5-6.2Corey HospitalComment on above:Performed By: #### POCGLUC #### [facility] [address] [place] [address] Dr. Salvador YungLIPID PROFILEon 64-86-6428GSXX-HDL RATIO NORMSEE [facility] Mercy HospitalComment on above:Result Comment: 3.3 - 4.4 LOW RISK 4.4 - 7.1 AVERAGE RISK 7.1 - 11.0 MODERATE RISK >11.0 HIGH RISKPerformed By: #### POCGLUC #### [facility] [address] [place] [address] Dr. Salvador YungCholesterol [Mass/Vol]164 mg/dLNormal<=200The [facility] Comment on above:Performed By: #### POCGLUC #### [facility] [address] [place] [address] Dr. Salvador YungCholesterol in HDL [Mass/Vol]61 mg/dLCritically vsbc01-69Puo [facility] HospitalComment on above:Performed By: #### POCGLUC #### [facility] [address] [address] [address] Salvador YungCholesterol in LDL [Mass/Vol]90.2 mg/dLProMedica Defiance Regional HospitalComment on above:Performed By: #### POCGLUC #### [facility] [address] [place] [address] Dr. Salvador Keyesesterol.total/Cholesterol in HDL [Mass ratio]2.7 {ratio} NormalThe [facility] HospitalComment on above:Performed By: #### POCGLUC #### [facility] [address] [place] [address] Dr. Salvador Ragland NORMAL> or = 60 mg/dl - LOW CARDIOVASCULAR RISK <40 mg/dl - HIGH CARDIOVASCULAR RISKProMedica Defiance Regional HospitalComsouthwest regional rehabilitation center on above:Performed By: #### POCGLUC #### [facility] [address] [place] [address] Dr. Salvador Garrison CALC NORMALSEE BELOWProMedica Defiance Regional HospitalComment on above:Result Comment: <100 mg/dl OPTIMAL 100 - 129 mg/dl NEAR OR ABOVE OPTIMAL 130 - 159 mg/dl BORDERLINE HIGH 160 - 189 mg/dl HIGH >190 mg/dl VERY HIGH Performed By: #### POCGLUC #### [facility] [address] [place] [address] Dr. Salvador YungTriglyceride [Mass/Vol]64 mg/dLNormal<=150[facility] Comment on above:Performed By: #### POCGLUC #### [facility] [address] [place] [address] Dr. Salvador BermudezLDL CALC12.8 mg/dLNoAdena Regional Medical CenterComment on above: Performed By: #### POCGLUC #### [facility] [address] [place] [address] Dr. Salvador YungPROSantino 14(COMP METB)on 12-96-8392Jwfpgoh [Mass/Vol]3.2 g/dL Critically low3.4-5.0Corey HospitalComment on above:Performed By: #### POCGLUC #### [facility] [address] [address] [address] Salvador YungAlbumin/Globulin [Mass ratio]0.7 {ratio}NormalThe [facility] HospitalComment on above:Performed By: #### POCGLUC #### [facility] [address] [address] [address] Salvador GarridoP [Catalytic activity/Vol]68 U/LIeaprs37-469Ayx [facility] HospitalComment on above:Performed By: #### POCGLUC #### [facility] [address] [address] [address] Salvador GarridoT [Catalytic activity/Vol]25 U/HMfceph61-68Nyj [facility] HospitalComment on above:Performed By: #### POCGLUC #### [facility] [address] [place] [address] Dr. Salvador Medinaon gap [Moles/Vol]11.8 mmol/LNormalThe [facility] Comment on above:Performed By: #### POCGLUC #### [facility] [address] [place] [address] Dr. Salvador YungAST [Catalytic activity/Vol]20 U/SLhsmyv54-99Ipm [facility] HospitalComment on above:Performed By: #### POCGLUC #### [facility] [address] [place] [address] Dr. Salvador YungBilirubin [Mass/Vol]0.5 mg/dLNormal0.2-1.0The [facility] Comment on above:Performed By: #### POCGLUC #### [facility] [address] [place] [address] Dr. Salvador YungCalcium [Mass/Vol]8.9 mg/dLNormal8.5-10.1The [facility] Comment on above:Performed By: #### POCGLUC #### [facility] [address] [place] [address] Dr. Salvador YungChloride [Moles/Vol]105 mmol/HSybvne85-611Dse [facility] Comment on above:Performed By: #### POCGLUC #### [facility] [address] [address] [address] Salvador YungCO2 [Moles/Vol]29.9 mmol/MVnagwc12.0-32.0The [facility] Comment on above:Performed By: #### POCGLUC #### [facility] [address] [place] [address] Dr. Salvador YungCreatinine [Mass/Vol]0.74 mg/dLNormal0.55-1.02The [facility] HospitalComment on above:Performed By: #### POCGLUC #### [facility] [address] [address] [address] Salvador MurilloGFR-AF MARSHALLESE>60Normal>=60The [facility] HospitalComment on above:Performed By: #### POCGLUC #### [facility] [address] [place] [address] Dr. Salvador MurilloGFR-NON AF MARSHALLESE>60Normal>=60The [facility] HospitalComment on above:Performed By: #### POCGLUC #### [facility] [address] [place] [address] Dr. Salvador YungGlobulin (S) [Mass/Vol]4.3 g/dLNormalThe [facility] HospitalComment on above:Performed By: #### POCGLUC #### [facility] [address] [place] [address] Dr. Salvador YungGlucose [Mass/Vol]88 mg/lGUuxsrd38-074Ehf [facility] Comment on above:Performed By: #### POCGLUC #### [facility] [address] [place] [address] Dr. Salvador YungPotassium [Moles/Vol]3.7 mmol/LNormal3.5-5.1The [facility] Comment on above:Performed By: #### POCGLUC #### [facility] [address] [place] [address] Dr. Salvador YungProtein [Mass/Vol]7.5 g/dLNormal6.4-8.2The [facility] Comment on above:Performed By: #### POCGLUC #### [facility] [address] [place] [address] Dr. Salvador YungSodium [Moles/Vol]143 mmol/LIfajnc030-328Cqc [facility] Comment on above:Performed By: #### POCGLUC #### [facility] [address] [address] [address] Salvador YungUrea nitrogen [Mass/Vol]11.0 mg/dLNormal7.0-18.0The [facility] HospitalComment on above:Performed By: #### POCGLUC #### [facility] [address] [address] [address] Salvador YungUrea nitrogen/Creatinine [Mass ratio]14.9 mg/mgNormalThe [facility] HospitalComment on above:Performed By: #### POCGLUC #### [facility] [address] [place] [address] Dr. Salvador YungT4on 65-97-7140S3 [Mass/Vol]11.60 ug/dLNormal4.80-13.90The [facility] HospitalComment on above:Performed By: #### POCGLUC #### [facility] [address] [address] [address] Salvador YungTSHoazucena 37-02-0596WWA9.165 uIU/mLCritically low0.358-3.740The [facility] HospitalComment on above:Performed By: #### POCGLUC #### [facility] [address] [place] [address] Dr. Salvador YungVC ENDOVENOUS ABL 1ST V RTon 47-93-0691HS ENDOVENOUS ABL 1ST V RT Patient: LEELEE CEDILLO Exam Date: 05/21/2022 : 1950 Gender:F Ordering : DR ALFRED UMAÑA M.D. Admission #: [id number] Family : Order #: [id number] CLICK HERE TO VIEW EXAM RADIOLOGY REPORT [...] by: Alfred Umaña MD on 05/21/2022 at 13:51[facility] VITAMIN D 25 OHon 59-59-5218TAD D 25-OH25.1 ng/mLNProvidence Hospital Comment on above:Performed By: #### VITAD #### [facility] [address] [place] [address] Dr. Salvador Means [facility] HospitalComment on above: Result Comment: <20 ng/mL Vit D deficient 20 - <30 ng/mL Vit D insufficient 30 - 100 ng/mL Vit D sufficient >100 ng/mL Potential ToxicityPerformed By: #### VITAD #### [facility] [address] [place] [address] Dr. Salvador YungXR HIP LT 2 3V W PELVISon 99-74-9383BU HIP LT 2 3V W PELVISEXAM: XR HIP LT 2 3V W PELVIS [...] Electronically authenticated by: MARI LORENZO Date: 2022-05-21 16:26[facility] HospitalVC COMP CONSULTATIONon 45-71-7206MZ COMP CONSULTATIONPatient: LEELEE CEDILLO Exam Date: 05/01/2022 : 1950 Gender:F Ordering : DR. ADELE FLEMING D.P.M. Admission #: [id number] Family : Order #: [id number] CLICK HERE [...] small saphenous vein, right lower extremity incompetent whale trainer veins, and bilateral lower extremity incompetent branch [...] arterial disease 5. CEAP: C6, EC, AP, NE PLAN: 1. Continued use of compression stockings 2. Elevated legs and increased physical activity symptomatic relief 3. Endovenous laser ablation of right small saphenous vein and whale trainer vein. 4. Microfoam chemical ablation of dilated, [...] by: Julio Lobato M.D. on 05/01/2022 at 15:27[facility] HospitalVC VENOUS REFLUX SAMI LMTon 86-44-6177RK VENOUS REFLUX SAMI LMTPatient: LEELEE CEDILLO Exam Date: 05/01/2022 : 1950 Gender:F Ordering : DR. ADELE JimPMaribel Admission #: [id number] Family : DR ALFRED UMAÑA M.D. Order #: [id number] CLICK HERE TO VIEW EXAM RADIOLOGY REPORT [...] chronic thrombus visualized Compressibility: Normal Flow: Normal Drum Stock Clerk: Dist/med calf 2.6mm with 0s reflux. Mid/med calf 3.5mm with 0s reflux. Tech Note: GSV has been previously stripped. Patent varicose vein mid/med calf 2.3mm with 0.5s reflux. Patent varicose vein prox/med calf 3.4mm with 1.2s reflux. Patent varicose vein dist/med thigh 5.4mm with 0.8s reflux. CONCLUSION: 1. Dilated, incompetent right small saphenous vein. 2. Dilated, incompetent whale trainer veins and bilateral lower extremity branch saphenous varicosities. 3. Consultation for endovenous laser ablation is recommended. Dictated by: Julio Lobato M.D. on 05/01/2022 at 14:06 Approved by: Julio Lobato M.D. on 05/01/2022 at 14:28[facility] HospitalBLEEDING TIMEon 11-51-3981ZEDDWCNX TIME10.5 minCritically high1.0-8.0[facility]y HospitalComment on above:Performed By: #### BLTM #### [facility] [address] [place] [address] Dr. Salvador Faye AUTO DIFFon 65-20-5804AKOE #0.1 103/ulNormal0.0-0.1The [facility] HospitalComment on above:Performed By: #### CBC #### [facility] [address] [place] [address] Dr. Salvador YungBasophils/100 WBC (Bld)0.7 %Normal0.2-2.0The [facility] Comment on above:Performed By: #### CBC #### [facility] [address] [place] [address] Dr. Salvador Sosa #0.1 103/ulNormal0.0-0.7The [facility] HospitalComment on above: Performed By: #### CBC #### [facility] [address] [place] [address] Dr. Salvador Murilloosinophils/100 WBC (Bld)0.7 %Critically low0.9-7.0The [facility] HospitalComment on above:Performed By: #### CBC #### [facility] [address] [place] [address] Dr. Salvador Murillorythrocyte distribution width (RBC) [Ratio]12.9 %Jcsueg44.0-15.0 The [facility] HospitalComment on above:Performed By: #### CBC #### [facility] [address] [place] [address] Dr. Salvador YungHematocrit (Bld) [Volume fraction]41.3 %Opffzz64.0-48.0The [facility] HospitalComment on above:Performed By: #### CBC #### [facility] [address] [place] [address] Dr. Salvador YungHemoglobin (Bld) [Mass/Vol]13.7 g/qYNbcrog54.0-16.0The [facility] HospitalComment on above:Performed By: #### CBC #### [facility] [address] [place] [address] Dr. Salvador Lyle #0.05 10e3/ulCritically high0.00-0.03The [facility] Comment on above:Performed By: #### CBC #### [facility] [address] [place] [address] Dr. Salvador Lyle %0.7 %Critically high0.0-0.5The [facility] HospitalComment on above:Performed By: #### CBC #### [facility] [address] [place] [address] Dr. Salvador Colby #1.4 103/ulNormal1.2-3.8The [facility] HospitalComment on above:Performed By: #### CBC #### [facility] [address] [place] [address] Dr. Salvador Salazarhocytes/100 WBC (Bld)18.9 %Critically low20.5-60.0The [facility] HospitalComment on above:Performed By: #### CBC #### [facility] [address] [place] [address] Dr. Salvador Hardy DIFF REQNONormalThe [facility] HospitalComment on above: Performed By: #### CBC #### [facility] [address] [place] [address] Dr. Salvador Mccloud (RBC) [Entitic mass]30.3 tyFmuirp90.7-34.0The [facility] HospitalComment on above:Performed By: #### CBC #### [facility] [address] [place] [address] Dr. Salvador Schwartz (RBC) [Mass/Vol]33.2 g/rFVowbhl23.9-35.2The [facility] HospitalComment on above:Performed By: #### CBC #### [facility] [address] [place] [address] Dr. Salvador Schwartz (RBC) [Entitic vol]91.4 pVSgovqz77.0-99.0The [facility] HospitalComment on above:Performed By: #### CBC #### [facility] [address] [place] [address] Dr. Salvador Espinoza #0.7 103/ulNormal0.3-0.8The [facility] HospitalComment on above:Performed By: #### CBC #### [facility] [address] [place] [address] Dr. Salvador Romeroocytes/100 WBC (Bld)9.9 %Normal1.7-12.0[facility] Comment on above:Performed By: #### CBC #### [facility] [address] [place] [address] Dr. Salvador Purdy #5.2 103/ulNormal1.4-6.5The [facility] HospitalComment on above:Performed By: #### CBC #### [facility] [address] [place] [address] Dr. Salvador Salgadoutrophils/100 WBC (Bld)69.1 %Yfswdl09.0-75.0The [facility] HospitalComment on above:Performed By: #### CBC #### [facility] [address] [place] [address] Dr. Salvador Miller mean volume (Bld) [Entitic vol]7.9 fLCritically low 9.5-13.5The [facility] HospitalComment on above:Performed By: #### CBC #### [facility] [address] [place] [address] Dr. Salvador YungPLT223 103/kaJfbcbw834-955Kao [facility] HospitalComment on above: Performed By: #### CBC #### [facility] [address] [place] [address] Dr. Salvador PennC4.52 106/ulNormal4.20-5.40The [facility] HospitalComment on above:Performed By: #### CBC #### [facility] [address] [place] [address] Dr. Salvador YungWBC7.5 103/ulNormal4.0-11.0The [facility] HospitalComment on above: Performed By: #### CBC #### [facility] [address] [place] [address] Dr. Salvador Tabares 71-26-6692Mwnu [Mass/Vol]83.0 ug/xZLzasqx46.0-170.0The [facility] HospitalComment on above:Performed By: #### IRON #### [facility] [address] [place] [address] Dr. Salvador GuzmánIMEmahi 07-82-7933FNB Coag (PPP) [Relative time]0.95 {INR} NormalThe [facility] Memorial HospitalComment on above:Performed By: #### PTT, PT #### [facility] [address] [place] [address] Dr. Salvador Bustamante GUIDELINESSEE BELOWProMedica Defiance Regional HospitalComment on above:Result Comment: DESIRED INR: 2.0 - 3.0 CONDITIONS NOT LISTED BELOW 2.5 - 3.5 FOR PROSTHETIC HEART VALVE REPLACEMENT 2.5 - 3.5 RECURRENT THROMBOSIS Performed By: #### PTT, PT #### [facility] [address] [place] [address] Dr. Salvador YungPT Coag (PPP) [Time]10.3 sNormal9.0-11.6[facility] Comment on above:Performed By: #### PTT, PT #### [facility] [address] [place] [address] Dr. Salvador Montero 23-55-4117zRAK Coag (Bld) [Time]22.1 sCritically low 22.3-36.2Corey HospitalComment on above:Performed By: #### PTT, PT #### [facility] [address] [place] [address] Dr. Salvador YungSCREENING MAMMOGRAM W/DANIEL, BILATERAL*on 02-67-6849GMTQXLXME MAMMOGRAM W/DANIEL, BILATERAL*CLINICAL HISTORY: Screening Mammogram COMPARISON: 02/26/2021, 11/24/2019, and [...] IS VERY IMPORTANT TO YOUR HEALTH. CURRENT [employer] GUIDELINES RECOMMENDS ANNUAL MAMMOGRAPHY BEGINNING AT AGE 41. THIS FACILITY USUALLY USES A REMINDER SYSTEM TO ENSURE ALL POSITIONS RECEIVED REMINDER NOTIFICATIONS AT THE TIME BASED ON THE RECOMMENDATIONS OF THIS EXAM. Report reported and signed by Julio Martines on 02/28/[address] Vincent'S Medical CenterCovid-19 PCR (CVDTBH)on 72-26-2560GWRG-CoV-2 (COVID-19) RNA VIVIANA+probe Ql (Unsp spec)Not detectedNormalNOT DETECTEDThe [facility] Comment on above:Result Comment: This test is not yet approved or cleared by the [place] FDA. When there are no FDA-approved or cleared tests available, and other criteria are met, FDA can make tests available under an emergency access mechanism called an Emergency Use Authorization (EUA). The EUA for this test is supported by the [place] of Health and Human Service's (HHS's) declaration that circumstances exist to justify the emergency use of in vitro diagnostics for the detection and/or diagnosis of the virus that causes COVID- 19. This EUA will remain in effect (meaning [...] of clinical signs and symptoms consistent with SARS-CoV-2.Performed By: #### POCGLUC #### [facility] [address] [place] [address] Dr. Salvador YungDayana [facility] CONon 25-23-8768VXU LSPINE WO CONHISTORY: Chronic low back pain with left leg pain. Prior low back surgery. Lumbar disc disease. MRI [facility] CON: 12/09/2021 10:11 AM EDT COMPARISON: MRI [...] Electronically authenticated by: SARA LAUREN Date: 2021-12-10 12:11[facility] HospitalCOVID-19 Positive/Negativeon 67-13-4024LVSVN-19 Positive/NegativeNegativeNegativeMary Rutan Hospital CtrComment on above: Testing for SARS-CoV-2 by RT-PCRThis test was developed and its performance characteristics determined by [employer] ([employer]) and validated at the [facility]. This test has not been FDA [...] unless the authorization is terminated or revoked sooner.Otheron 05-04-2020 Coronavirus 2019 PCR InterpN/AFDayton Children's Hospital CtrAutomated basophil % on 15-72-9609Pigljgyod/100 WBC (Bld)0.6 %[facility] CtrAutomated basophil counton 07-33-8053Bdnktaalj (Bld) [#/Vol]0.0 10*3/uL0.0-0.2FDayton Children's Hospital CtrAutomated blood lymphocyte count (number/volume)on 73-63-5570Xjksdgzyhks (Bld) [#/Vol]1.0 10*3/uL1.00-4.8[facility] CtrAutomated blood lymphocyte count as percentage of total leukocyteson 74-95-9477Igvolzkcmhs/100 WBC (Bld)17.0 %[facility] CtrAutomated blood monocyte counton 00-78-7816Katvkmkoo (Bld) [#/Vol]0.3 10*3/uL0.0-0.8 [facility] CtrAutomated blood platelet count (count/volume)on 46-27-5253Vhtbruthk (Bld) [#/Vol]224 10*3/eA639-485UvpzojrvyMary Rutan Hospital CtrAutomated blood platelet mean volume measurementon 28-34-6404Ihhjgpmh mean volume (Bld) [Entitic vol]7.2 fL6.3-10.7FDayton Children's Hospital CtrAutomated eosinophil %on 86-11-7057Xmlhhfbbegc/100 WBC (Bld)3.5 %[facility] CtrAutomated eosinophil counton 41-40-8707Kbyfmonpvkn (Bld) [#/Vol]0.2 10*3/uL0.0-0.45[facility] CtrAutomated erythrocyte distribution width ratioon 69-31-6837Cpxpqgwrmbw distribution width (RBC) [Ratio]13.0 % 11.9-15.3FDayton Children's Hospital CtrAutomated erythrocyte mean corpuscular hemoglobin (mass per erythrocyte)on 19-23-1378PEI (RBC) [Entitic mass]27.7 pg 24.7-34.3FDayton Children's Hospital CtrAutomated erythrocyte mean corpuscular hemoglobin concentration measurement (mass/volon 43-41-3188GILW (RBC) [Mass/Vol] 33.2 g/dL32.0-35.0[facility] CtrAutomated erythrocyte mean corpuscular volumeon 79-75-0642MKC (RBC) [Entitic vol]83.3 qA60-706HwaaflptcMary Rutan Hospital CtrAutomated erythrocytes count in urine sediment (number/area) on 68-42-5335MJH Auto (Urine sed) [#/Area]None seen [HPF][facility] CtrAutomated leukocytes count in urine sediment (number/area)on 44-69-2589VYM Auto (Urine sed) [#/Area]0-1 [HPF][facility] Automated monocyte %on 83-53-2502Dyrwoilma/100 WBC (Bld)6.1 %Parkwood HospitalAutomated neutrophil %on 05-76-7568Uloaiqdqxms/100 WBC (Bld)72.8 % [facility] CtrAutomated urine color determinationon 04-24-2020 Color (U)YellowYellowMary Rutan Hospital CtrBlood erythrocytes automated count (number/volume)on 60-22-3022ZKC (Bld) [#/Vol]4.50 10*6/uL3.60-5.00 [facility] HospitalBlood hemoglobin measurement (mass/volume)on 85-68-9574Onnmwelraj (Bld) [Mass/Vol]12.5 g/dL11.8-15.4FMercy HospitalBlood leukocytes automated count (number/volume)on 94-08-4704PRN (Bld) [#/Vol]5.7 10*3/uL3.8-11.6FMercy HospitalBlood neutrophil count by automated method (number/volume)on 80-28-9741Wpdabsllsbe (Bld) [#/Vol] 4.2 10*3/uL1.8-7.7FDayton Children's Hospital CtrEstimated glomerular filtration rate (GFR) non- Americanon 28-18-6551RXN/1.73 sq M predicted among non- blacks MDRD (S/P/Bld) [Vol rate/Area]mL/min/{1.73_m2}[facility] Hospital CtrHematocrit [Volume Fraction] of Blood by Automated counton 04-24-2020 Hematocrit (Bld) [Volume fraction]37.5 %34.0-46.4FDayton Children's Hospital Ctr Otheron 38-25-1198AKW/1.73 sq M.predicted MDRD (S/P/Bld) [Vol rate/Area] mL/min/{1.73_m2}[facility] CtrComment on above:GFR estimated reference range: According to KDOQI guidelines, <60 ml/min/1.73m2 is sufficient todiagnose a patient with chronic kidney disease.Nucleated RBC/100 WBC (Bld) [Ratio]0.1 %0-0.5FDayton Children's Hospital CtrPharmacy Creatinine Clearance (ChemN/AFDayton Children's Hospital CtrSerum or plasma calcium measurement (mass/volume)on 88-71-8646Rilnosl [Mass/Vol]9.3 mg/dL8.2-10.2FDayton Children's Hospital CtrSerum or plasma chloride measurement (moles/volume)on 04-24-2020 Chloride [Moles/Vol]101 mmol/W63-645ApqweuhmgMary Rutan Hospital CtrSerum or plasma creatinine measurement with calculation of estimated glomerular filtron 46-12-4611Cyhsrfufdl [Mass/Vol]0.88 mg/dL0.44-1.03[facility] Serum or plasma glucose measurement (mass/volume)on 26-97-6492Jeittou [Mass/Vol] 116 mg/qJ97-101LxsehhhiiMary Rutan Hospital CtrComment on above:ADA recommended reference rangeRandom Glucose Reference Range is dependent on time and content of last meal. Glucose of more than 200 mg/dL in a nonstressed, ambulatory subject supports the diagnosisof Diabetes Mellitus.Serum or plasma potassium measurement (moles/volume)on 47-82-1104Ksusdhbjc [Moles/Vol]3.8 mmol/L3.5-5.1 [facility] CtrSerum or plasma sodium measurement (moles/volume) on 55-76-6156Edrklm [Moles/Vol]136 mmol/C402-176BrcwaktweParkwood Hospital Serum or plasma total carbon dioxide measurement (moles/volume)on 14-90-6572UF9 [Moles/Vol]23.1 mmol/L22.0-30.0[facility] CtrSerum or plasma urea nitrogen measurement (mass/volume)on 47-75-5479Gzed nitrogen [Mass/Vol]10 mg/dL9-23Parkwood HospitalSpecific gravity of Urine by Automated test stripon 19-75-5154Eiklnebu gravity (U) [Rel density]1.0071.001-1.030 [facility] CtrSquamous epithelial cells detection in urine sediment by light microscopyon 19-61-4087Ssmhzpobal cells.squamous LM Ql (Urine sed)None seen [HPF][facility] Hospital CtrUrinalysison 84-04-8482Tgznxmf casts LM Ql (Urine sed)None seen [LPF][facility] CtrUrine bacteria detection by automated methodon 32-24-4638Cayiyhkt Auto Ql (U)None seen None SeenMary Rutan Hospital CtrUrine clarity by refractometry automated on 69-54-9685Wmrzuqe Refractometry automated (U)ClearCleMercy Health St. [facility] CtrUrine glucose measurement by automated test strip (mass/volume)on 30-34-5745Jalzdda Auto test strip (U) [Mass/Vol]Normal mg/dLNormAultman Hospital CtrUrine hemoglobin detection by automated test stripon 53-95-3031Hwdtwtcafh Auto test strip Ql (U)NegativeNegTriHealth McCullough-Hyde Memorial Hospital CtrUrine ketones measurement by automated test strip (mass/volume)on 95-30-1565Aeksgqx (U) [Mass/Vol]NegativeNegativeMary Rutan Hospital Ctr Urine leukocyte esterase detection by automated test stripon 37-69-1852Jrbchcrfk esterase Auto test strip Ql (U)1+NegativeMary Rutan Hospital CtrUrine nitrite detection by test stripon 92-37-4682Fzejgbx Ql (U)NegativeNegative [facility] CtrUrine pH measurement by automated test stripon 81-20-2281fE (U)5.5 [pH]5.0-9.0[facility] CtrUrine protein measurement by automated test strip (mass/volume)on 04-80-8104Iosmubd (U) [Mass/Vol]NegativeNegativeMary Rutan Hospital CtrUrine total bilirubin detection by test stripon 20-49-6636Mqqmulcwz Ql (U)NegativeNegativeMary Rutan Hospital CtrUrine urobilinogen measurement by automated test strip (mass/volume)on 99-04-2894Gtxirfhrdltt (U) [Mass/Vol]Normal mg/dLNormAultman Hospital CtrCT L-SPINE WO CONTRASTon 26-55-7246HB L-SPINE WO CONTRAST Patient Name: LEELEE CEDILLO STUDY: CT L-SPINE WO CONTRAST;; 10/13/2018 12:05 pm INDICATION: Low back pain LUMBAGO. COMPARISON: None. ACCESSION NUMBER(S): [id number] ORDERING CLINICIAN: HAMLET GILMAN TECHNIQUE: Axial sections [...] combination with facet joint arthropathy noted causing wwmu-tt-guxfoldv left neural foramina narrowing. Transpedicular screws of [...] left lateral recess, left neural foramina and ilot-lw-tsboaucs right neural foramina narrowing. IMPRESSION: Postoperative and [...] lucencies, related to loosening. Electronically signed by: Vidhi POSTPenrose HospitalPINE, ENTIRE THORACIC/LUMBAR, INCLUDE SKULL, CERVICAL ANSD SACRAL SPINE WHEN PERFORMED 2 OR 3 VIEWon 09-32-1834QZOIN, ENTIRE THORACIC/LUMBAR, INCLUDE SKULL, CERVICAL ANSD SACRAL SPINE WHEN PERFORMED 2 OR 3 VIEWMRN: [id number] Patient Name: LEELEE CEDILLO STUDY: SPINE, ENTIRE THORACIC/LUMBAR, INCLUDE SKULL, CERVICAL ANSD SACRAL SPINE WHEN PERFORMED 2 OR 3 VIEW; SPINE, LUMBOSACRAL CMPLT(BENDING); 10/13/2018 12:05 pm INDICATION: LUMBAGO. COMPARISON: None ACCESSION NUMBER(S): [id number]; [id number] ORDERING CLINICIAN: HAMLET GILMAN FINDINGS: Long radiograph [...] uncertain acuity. Electronically signed by: ADELE BA MDSt. Cloud HospitalPINE, LUMBOSACRAL; CMPLT(BENDING)on 64-77-6237ULAHA, LUMBOSACRAL; CMPLT(BENDING) Patient Name: LEELEE CEDILLO STUDY: SPINE, ENTIRE THORACIC/LUMBAR, INCLUDE SKULL, CERVICAL ANSD SACRAL SPINE WHEN PERFORMED 2 OR 3 VIEW; SPINE, LUMBOSACRAL CMPLT(BENDING); 10/13/2018 12:05 pm INDICATION: LUMBAGO. COMPARISON: None ACCESSION NUMBER(S): [id number]; [id number] ORDERING CLINICIAN: HAMLET GILMAN FINDINGS: Long radiograph [...] is of uncertain acuity. Electronically signed by: Vidhi MINCentennial Peaks Hospital Vital Signs Date TimeVital SignValuePerforming LtmnsefqcHthncdda57-43-4727 11:44-0400 Diastolic blood ahzcsyjy42 mm[Hg]MD Sara Vick Work Phone: [facility]04-19-2024 11:44-0400 Heart rate67 /minMD Sara Vick Work Phone: [facility]04-19-2024 11:44-0400 SaO2% (BldA) [Mass fraction]99 %MD Sara Vick Work Phone: [phone] [place], [place] 7738004-19-2024 11:44-0400 Systolic blood nqjfawyi270 mm[Hg]MD Sara Vick Work Phone: [phone])[address] [place], [place] 5666003-13-2024 10:26-0400 Body .72 cmMD Sara Hoy Work Phone: [phone])[address] [place], [place] 5666003-13-2024 10:26-0400 Body mass index (BMI) [Ratio]29.5 kg/m2MD Sara Taycarolina Work Phone: [phone])[address] [place], [place] 5666003-13-2024 10:26-0400 Body cdvbramsvbo65.2 [degF]MD Sara Vick Work Phone: [phone])[address] [place], [place] 5666003-13-2024 10:26-0400 Body uhvytp52.99 kgMD Sara Vick Work Phone: 1(810)[address] [place], [place] 5666003-13-2024 10:26-0400 Diastolic blood gubdpcka58 mm[Hg]MD Sara Vick Work Phone: 1(419)[address] [place], [place] 5666003-13-2024 10:26-0400 Heart rate78 /minMD Sara Vick Work Phone: [phone] [place], [place] 5666003-13-2024 10:26-0400 SaO2% (BldA) [Mass fraction]98 %MD Sara Vick Work Phone: 1(400)[address] [place], [place] 5666003-13-2024 10:26-0400 Systolic blood sydlxmkl675 mm[Hg]MD Sara Vick Work Phone: 1(511)[address] [place], [place] 5666003-12-2024 14:39-0400 Diastolic blood jocqmuei63 mm[Hg]MD Sara Vick Work Phone: 1419)[facility]-[address] [place], [place] 7738003-12-2024 14:39-0400 Heart rate75 /minMD Sara Vick Work Phone: 1(561)[address] [place], [place] 5666003-12-2024 14:39-0400 SaO2% (BldA) [Mass fraction]99 %MD Sara Vick Work Phone: [facility]03-12-2024 14:39-0400 Systolic blood hhpvkxic835 mm[Hg]MD Sara Vick Work Phone: [facility]03-06-2024 13:13-0500 Body zajkon960.7 cmGhanshyam Lombardi MD Work Phone: [facility]03-06-2024 13:13-0500Body .4 kgGhanshyam Lombardi MD Work Phone: [facility]03-06-2024 13:13-0500Diastolic blood mm[Hg]Ghanshyam Lombardi MD Work Phone: [facility]03-06-2024 13:13-0500Heart rate93 /min Ghanshyam Lombardi MD Work Phone: [facility]03-06-2024 13:13-0500Respiratory rate 18 /minDmalka Lombardi MD Work Phone: [facility]03-06-2024 13:13-9077QiO6% (BldA) [Mass fraction]97 %Ghanshyam Lombardi MD Work Phone: [facility]03-06-2024 13:13-0500Systolic blood xtzspybz023 mm[Hg]Ghanshyam Lombardi MD Work Phone: [facility]01-26-2024 09:00-0500Body zzkfon21.18 kgLarry Brown Other [place] [employer] Other [id number] 09:00-0500Body qiuhcw75.17 kgMD Sara Vick Work Phone: [facility]01-26-2024 09:00-0500 Diastolic blood pinyngeg76 mm[Hg]Larry Brown Other [facility]01-26-2024 09:00-0500 SaO2% (BldA) [Mass fraction]99 %Larry Brown Other [place] [employer] Other 01-26-2024 09:00-0500Systolic blood urtixkgd019 mm[Hg] Larry Brown Other [facility]01-24-2024 11:15-0500 Body jesojq497.26 cmMajustin Kessler Other [facility]01-24-2024 11:15-0500 Body mass index (BMI) [Ratio]29.24 kg/x5RdjhrqbKiran Kessler Other [place] [employer] Other 01-24-2024 11:15-0500Body ozveuoaoqoq64.9 [degF] Kiran Kessler Other [place] [employer] Other 01-24-2024 11:15-0500Body azavve65.81 kgMattanderson Kessler Other [facility]01-24-2024 11:15-0500 Diastolic blood cogoeuog31 mm[Hg]Kiran Kessler Other [facility]01-24-2024 11:15-0500 SaO2% (BldA) [Mass fraction]99 %Kiran Kessler Other [place] [employer] Other 01-24-2024 11:15-0500Systolic blood kuxyckkw093 mm[Hg] Kiran Kessler Other [facility]12-15-2023 10:15-0500 Body .26 cmSaramis Brown Other [place] [employer] Other 12-15-2023 10:15-0500Diastolic blood tsweqpyw39 mm[Hg] Larry Brown Other [place] [employer] Other 12-15-2023 10:15-8071EzL5% (BldA) [Mass fraction]99 % Larry Brown Other [place] [employer] Other 12-15-2023 10:15-0500Systolic blood hhhrowxj636 mm[Hg] Larry Brown Other [place] [employer] Other 12-06-2023 11:05-0500Diastolic blood gpuxszkb97 mm[Hg] MD Sara Vick Work Phone: 1([phone] [place], [place] 7738012-06-2023 11:05-0500 Heart rate72 /minMD Sara Hoy Work Phone: 1(877)395-[address] [place], [place] 7738012-06-2023 11:05-0500 Respiratory rate18 /minMD Sara Jasvircarolina Work Phone: 1([phone] [place], [place] 7738012-06-2023 11:05-0500 SaO2% (BldA) [Mass fraction]97 %MD Sara Vick Work Phone: 1(656)563-[address] [place], [place] 7738012-06-2023 11:05-0500 Systolic blood oupuyowh663 mm[Hg]MD Sara Vick Work Phone: 1(982)672-[address] [place], [place] 7738012-06-2023 10:27-0500 Inhaled oxygen flow rate3 L/minMD Sara Vick Work Phone: 1(126)529-[address] [place], [place] 7738012-06-2023 10:14-0500 Body tcircj547.99 cmMD Sara Hoy Work Phone: 2(322)917-[address] [place], [place] 7738012-06-2023 10:14-0500 Body mwjefx63.45 kgMD Sara Jasviry Work Phone: [phone] [place], [place] 7738010-10-2023 14:30-0400 Body wijoaw452.26 Thalia Shane Other [facility] [employer] Other 10-10-2023 14:30-0400Diastolic blood pynnzbwo35 mm[Hg] Dominique Shane Other [facility] [employer] Other 10-10-2023 14:30-7246CzS5% (BldA) [Mass fraction]98 % Dominique Shane Other [employer] Other 10-10-2023 14:30-0400Systolic blood nwuijfal380 mm[Hg] Dominique Shane [facility] Other 09-22-2023 10:15-0400Body .26 Musa Brown Other [place] [employer] Other 09-22-2023 10:15-0400Body mass index (BMI) [Ratio] 29.56 kg/p0ZbivzrLarry Brown Other [place] [employer] Other 09-22-2023 10:15-0400Body zutvgx29.81 kgShdeepalisantino Stephanie Other [place] [employer] Other 09-22-2023 10:15-0400Diastolic blood dwuzgiym94 mm[Hg] Larry Brown Other [employer] Other 09-22-2023 10:15-3949OtI3% (BldA) [Mass fraction]98 % Larry Brown Other [employer] Other 09-22-2023 10:15-0400Systolic blood kcogvznc615 mm[Hg] Larry Brown Other [employer] Other 08-25-2023 09:30-0400Body mqfnex158.26 Musa Carrilloky Other [employer] Other 08-25-2023 09:30-0400Body mass index (BMI) [Ratio] 29.77 kg/f9Jtnqdo Zaky Other [employer] Other 08-25-2023 09:30-0400Body nijgig62.45 kgShangeli Brown Other [employer] Other 08-25-2023 09:30-0400Diastolic blood hnvqmeea31 mm[Hg] Larryrandy Brown Other [employer] Other 08-25-2023 09:30-5830OgF0% (BldA) [Mass fraction]99 % Larry Stephanie Other [employer] Other 08-25-2023 09:30-0400Systolic blood kqnuhkbx077 mm[Hg] Larry Stephanie Other [employer] Other 06-02-2023 12:00-0400Body rcacur242.26 Musa Brown Other [employer] Other 06-02-2023 12:00-0400Body mass index (BMI) [Ratio]30.8 kg/b6Kgpbbwangeli Brown Other [employer] Other 06-02-2023 12:00-0400Body .62 kgShangeli Brown Other [employer] Other 06-02-2023 12:00-4106VrU3% (BldA) [Mass fraction]95 % aLrry Brown Other [place] [employer] Other [id number] 10:40-0400Body weikil352.7 Jeanine Burch MD Work Phone: [facility]06-01-2023 10:40-0400Body mass index (BMI) [Ratio]31.26 kg/e0LgdxgPerfecto Burch MD Work Phone: [facility]06-01-2023 10:40-0400Body dywepcsutpb98.4 [degF]Perfecto Burch MD Work Phone: [facility]06-01-2023 10:40-0400Body weight 93.26 kgPerfecto Burch MD Work Phone: [facility]04-09-2023 15:38-0400Hourly RoundingManinder Ottoniel [facility]04-09-2023 15:38-0400 Promise to ReturnManinder Ottoniel [address] [place], [place] 7214004-09-2023 14:38-0400 Hourly RoundingManinder Ottoniel [address] [place], [place] 7214004-09-2023 14:38-0400 Promise to ReturnManinder Ottoniel [facility]04-09-2023 13:38-0400 Hourly RoundingManinder Ottoniel [address] [place], [place] 7214004-09-2023 13:38-0400 Promise to ReturnManinder Ottoniel [address] [place], [place] 7214004-09-2023 12:08-0400Heart ebxy487 /minManinder Ottoniel [address] [place], [place] 7214004-09-2023 12:08-7544AaX3% (BldA) [Mass fraction]100 %Francisco Ottoniel [address] [place], [place] 7214004-09-2023 12:07-0400 Diastolic blood wxfkaxnc42 mm[Hg]Francisco Ottoniel [address] [place], [place] 7214004-09-2023 12:07-0400Mean blood bkfxhwby843 mm[Hg]Francisco Ottoniel [address] [place], [place] 7214004-09-2023 12:07-0400 Systolic blood qspfipsw641 mm[Hg]Francisco Ottoniel [address]04-09-2023 12:06-0400Body tddqxfrbosw28.16 [degF]Francisco Ottoniel [address] [place], [place] 7758604-09-2023 07:46-0400Heart rate82 /minFrancisco Floreser [address] [place], [place] 7758604-09-2023 07:46-8101DwW0% (BldA) [Mass fraction]97 %Francisco Ottoniel [address]04-09-2023 07:46-0400 Diastolic blood dttuucdi11 mm[Hg]Francisco Ottoniel [address]04-09-2023 07:46-0400Mean blood vswykxcj938 mm[Hg]Francisco Ottoniel [address] [place], [place] 7758604-09-2023 07:46-0400 Systolic blood jcooyvih983 mm[Hg]Francisco Ottoniel [address] [place], [place] 7758604-09-2023 07:45-0400Body oqehhgeciej57.52 [degF]Francisco Ottoneil [address] [place], [place] 7758604-09-2023 01:46-0400Heart rate89 /minFrancisco Floreser [address] [place], [place] 7758604-09-2023 01:46-5562VfL5% (BldA) [Mass fraction]96 %Francisco Ottoniel [address] [place], [place] 7758604-09-2023 01:45-0400 Diastolic blood mm[Hg]Francisco Ottoniel [address] [place], [place] 7214004-09-2023 01:45-0400Mean blood admisxlu33 mm[Hg]Francisco Ottoniel [address]04-09-2023 01:45-0400 Systolic blood qigkgggh760 mm[Hg]Francisco Ottoniel [address] [place], [place] 7758604-09-2023 01:45-0400Body twqbgfpandq60.06 [degF]Francisco Ottoniel [address] [place], [place] [id number] 01:45-0400Blood Pressure LocationFrancisco Ottoniel [address]04-09-2023 01:45-0400 Respiratory rate18 /minManinder Ottoniel [address] [place], [place] [id number] 20:00-0400 Respiratory rate16 /minManinder Ottoniel [address]04-08-2023 17:20-0400Blood Pressure LocationFrancisco Ottoniel [address] [place], [place] 7214004-08-2023 17:20-0400Heart rate78 /minManinder Ottoniel [address] [place], [place] 7214004-08-2023 15:30-0400 Respiratory rate12 /minManinder Ottoniel [address] [place], [place] 7214004-08-2023 15:00-0400Mean blood xiduwwcl329 mm[Hg]Francisco Ottoniel [address] [place], [place] 7214004-08-2023 15:00-0400 Respiratory rate8 /minManinder Ottoniel [address] [place], [place] 7214004-08-2023 14:30-0400Mean blood efnnoyqa094 mm[Hg]Francisco Ottoniel [facility]04-08-2023 14:30-0400 Respiratory rate12 /minFrancisco Ottoniel [facility]04-08-2023 13:30-0400Mean blood nwdexstz15 mm[Hg]Francisco Ottoniel [facility]04-08-2023 11:35-0400gluc 105 mg/dLFrancisco Ottoniel [facility]04-08-2023 11:35-0400gluc Franciscoalberto Alcazar [facility]04-08-2023 11:35-0400Heart rate72 /minFrancisco Ottoniel [facility]04-08-2023 11:35-0400 Respiratory rate18 /minFrancisco Ottoniel [facility]01-13-2023 10:00-0500Body iumqkb052.26 cmSaramis Brown [facility] Other 01-13-2023 10:00-0500Body mass index (BMI) [Ratio] 31.89 kg/v6TixiouLarry Brown [facility] Other 01-13-2023 10:00-0500Body .98 kgLarry Brown Other [facility] [employer] Other 01-13-2023 10:00-0500Diastolic blood cnmaxnrk45 mm[Hg] Larry Brown Other [facility] [employer] Other 01-13-2023 10:00-0500Systolic blood dobqcghi719 mm[Hg] Larry Brown Other [place] [employer] Other [id number] 17:00-0500Diastolic blood oluyqtxr486 mm[Hg]Wm Nagy [address] [place], [place] 5905211-19-2022 17:00-0500Mean blood syxfqkds214 mm[Hg]Wm Nagy [address]11-19-2022 17:00-9402WoR8% (BldA) [Mass fraction]95 %Wm Nagy [address]11-19-2022 17:00-0500 Systolic blood iaydpdxh178 mm[Hg]Wm Nagy [address]11-19-2022 16:30-0500 Diastolic blood mpzpydor91 mm[Hg]Wm Nagy [address] [place], [place] 9370311-19-2022 16:30-0500Heart rate75 /minWm Nagy [address] [place], [place] 5905211-19-2022 16:30-0500Mean blood orkpdcwp06 mm[Hg]Wm Nagy [address] [place], [place] 5905211-19-2022 16:30-0500 Respiratory rate15 /minWm Nagy [address] [place], [place] 9370311-19-2022 16:30-5735RaU1% (BldA) [Mass fraction]98 %Wm Nagy [address] [place], [place] 5905211-19-2022 16:30-0500 Systolic blood mm[Hg]Wm Ngay [address] [place], [place] 5905211-19-2022 16:10-0500 Diastolic blood sikomtbz87 mm[Hg]Wm Nagy [address] [place], [place] 5905211-19-2022 16:10-0500Heart rate93 /minWm Nagy [address] [place], [place] 9370311-19-2022 16:10-0500Mean blood mm[Hg]Wm Nagy [address]11-19-2022 16:10-0500 Respiratory rate14 /minWm Nagy [address] [place], [place] 5905211-19-2022 16:10-8269HiC5% (BldA) [Mass fraction]98 %Wm Nagy [address] [place], [place] 5905211-19-2022 16:10-0500 Systolic blood wovpvbst111 mm[Hg]Wm Nagy [address]11-19-2022 15:15-0500 Respiratory rate18 /minWm Nagy [address]11-19-2022 15:00-0500 Hourly RoundingJosémariluz Nagy [address] [place], [place] 5905211-19-2022 15:00-0500 Promise to ReturnWm Yakov [address] [place], [place] 5905211-19-2022 14:45-0500 Respiratory rate20 /minWm Nagy [address] [place], [place] 5905211-19-2022 14:15-0500 Respiratory rate20 /minWm Nagy [address] [place], [place] 5905211-19-2022 14:14-0500 Hourly RoundingJosévin Yakov [address] [place], [place] 5905211-19-2022 14:14-0500 Promise to ReturnWm Nagy [address] [place], [place] 5905211-19-2022 13:54-0500Heart rate99 /minWm Nagy [address] [place], [place] 5905211-19-2022 13:37-0500Body cfxwtlgtyqq10.7 [degF]Wm Yakov [facility]11-19-2022 13:37-0500Heart xlcs011 /minWm Nagy [facility]11-19-2022 13:00-0500 Hourly RoundingWm Nagy [facility]11-19-2022 13:00-0500 Promise to ReturnKemariluz Nagy [facility]11-18-2022 11:00-0500Body ieioeh551.26 cmSaramis Brown Other [facility] [employer] Other 11-18-2022 11:00-0500Body mass index (BMI) [Ratio] 32.54 kg/c7VnukpxLarry Brown Other [place] [employer] Other 11-18-2022 11:00-0500Body uxbbit60.97 kgShdeepalisantino Brown Other [facility] [employer] Other 11-18-2022 11:00-1694QcG1% (BldA) [Mass fraction]99 % Larry Brown Other [facility] [employer] Other 03-03-2018 09:19-0500PAIN LEVEL0 {score}Praveen Bynum 03-03-2018 06:29-0500PAIN LEVEL0 {score}Praveen Bynum 03-03-2018 06:25-0500PAIN LEVEL6 {score}Praveen Bynum 03-03-2018 06:21-0500Body Qgkaemxwmds30.1 [degF]Praveen Bynum 03-03-2018 06:21-0500BP Amchunyjw64 mm[Hg]Praveen Bynum 03-03-2018 06:21-0500BP Vqthltdr400 mm[Hg]Praveen Bynum 03-03-2018 06:21-0500Pulse (Heart Rate)90 /minPraveen Bynum 03-03-2018 06:21-0500Pulse Ggtndfkk00 %Praveen Bynum 03-03-2018 06:21-0500Respiratory Rate20 /Nika Bynum 03-03-2018 00:38-0500PAIN LEVEL0 {score}Praveen Bynum 03-02-2018 20:44-0500PAIN LEVEL9 {score}Praveen Bynum 03-02-2018 20:43-0500PAIN LEVEL8 {score}Praveen Bynum 03-02-2018 18:47-0500Body Hplnkkqznoq23.9 [degF]Praveen Bynum 03-02-2018 18:46-0500Body Auuixaifjxx01.9 [degF]Praveen Bynum 03-02-2018 18:46-0500BP Ggodhlnhc40 mm[Hg]Praveen Bynum 03-02-2018 18:46-0500BP Ljxiafle377 mm[Hg]Praveen Bynum 03-02-2018 18:46-0500Pulse (Heart Rate)91 /Nika Bynum 03-02-2018 18:46-0500Pulse Prqbvefa86 %Praveen Bynum 03-02-2018 18:46-0500Respiratory Rate19 /Nika Bynum 03-02-2018 18:45-0500Body Xevrdazntji00.9 [degF]Praveen Bynum 03-02-2018 18:45-0500BP Pnaskltsx67 mm[Hg]Praveen Bynum 03-02-2018 18:45-0500BP Bcotodxc620 mm[Hg]Praveen Bynum 03-02-2018 18:45-0500Pulse (Heart Rate)91 /Nika Bynum 03-02-2018 18:45-0500Pulse Xxgvjkai55 %Praveen Bynum 03-02-2018 18:45-0500Respiratory Rate19 /Nika Bynum 03-02-2018 16:04-8173Lyaoth176.26 cmVcarlos Bynum 03-02-2018 15:43-0500Body Vlkttrqfijj45 [degF]Praveen Bynum 03-02-2018 15:43-0500BP Ajtbhtkoq73 mm[Hg]Praveen Bynum 03-02-2018 15:43-0500BP Wvbykjcr881 mm[Hg]Praveen Bynum 03-02-2018 15:43-0500Pulse (Heart Rate)88 /Nika Bynum 03-02-2018 15:43-0500Pulse Adazvcgc35 %Praveen Bynum 03-02-2018 15:43-0500Respiratory Rate18 /Nika Bynum 03-02-2018 09:24-0500PAIN LEVEL0 {score}Praveen Bynum 03-02-2018 09:24-0500Body Okhablrljxc89 [degF]Praveen Bynum 03-02-2018 09:24-0500Body Ywuikmxmded43 [degF]Praveen Bynum 03-02-2018 08:09-4312Klnyly008.69 kgPraveen Bynum 03-02-2018 08:06-0500PAIN LEVEL0 {score}Praveen Bynum 03-02-2018 08:05-0500Body Knibtyacayu80 [degF]Praveen Bynum 03-02-2018 08:05-0500BP Maubyoypy54 mm[Hg]Praveen Bynum 03-02-2018 08:05-0500BP Pvhzcdfx351 mm[Hg]Praveen Bynum 03-02-2018 08:05-0500Pulse (Heart Rate)98 /Nika Bynum 03-02-2018 08:05-0500Pulse Godotarc42 %Praveen Bynum 03-02-2018 08:05-0500Respiratory Rate20 /Nika Bynum 03-02-2018 06:40-0500PAIN LEVEL5 {score}Praveen Bynum 03-02-2018 00:34-0500PAIN LEVEL0 {score}Praveen Bynum 03-02-2018 00:34-0500PAIN LEVEL0 {score}Praveen Bynum 03-02-2018 00:26-0500Body Mmvkhdyhjfb823 [degF]Praveen Bynum 03-02-2018 00:26-0500BP Cxhsyxzmp91 mm[Hg]Praveen Bynum 03-02-2018 00:26-0500BP Pndifxtk858 mm[Hg]Praveen Bynum 03-02-2018 00:26-8231Tgtdxj390.56 cmValdominga Bynum 03-02-2018 00:26-0500Pulse (Heart Rate)98 /Nika Bynum 03-02-2018 00:26-0500Pulse Iiitwofy32 %Praveen Bynum 03-02-2018 00:26-0500Respiratory Rate18 /minPraveen Bynum 03-02-2018 00:26-6962Cjmspp902.68 kgPraveen Bynum 03-02-2018 00:22-0500Body Tmgjtrelsld659 [degF]Praveen Bynum 03-01-2018 23:11-0500PAIN LEVEL3 {score}Praveen Bynum Encounters Encounter DateEncounter TypeCare ProviderFacilityStart: 39-90-1998jfqlppysnu Judson Bryce SALAZARLFacility: Rgtart: 02-01-2025 End: 22-95-9005sdoasggcvoTDGMJBH M HOYNot AvailableStart: 01-24-2025 End: 92-23-7645Lbofbh outpatient new 45 minutesMarry Mathew MD Work Phone: [facility] Orthopedic SpineComment on above:Failed back surgical syndrome (Primary Dx)Start: 01-24-2025 End: 55-84-7379clzjboozcbMDGHWYQ A. MOOREFacility:METROHealthStart: 01-03-2025 End: 49-86-4306owxtwyqokeUFEITZK PROVIDERFacility:METROHealthStart: 01-03-2025 End: 63-64-5488Qoxfoagsmo hospital visit by physicianLifeMer[facility] RadiologyComment on above:Back pain, unspecified back location, unspecified back pain laterality, unspecified chronicityStart: 44-94-5740diamtmtrzxJTSTVDG PROVIDERFacility:METROHealthStart: 12-29-2024 End: 01-58-0645Pfryilvzqb Heath Vick MD Work Phone: [facility] Physician Referral ServiceStart: 12-27-2024 End: 77-56-6750smoyslljehBzxqpxd HoyFacility: OpalkStart: 12-27-2024 End: 77-12-5403Ppwylzz encounter procedureMichael R NILL [phone]-WjhikBl[facility] [place] Start: 88-04-8718qbigesonzzZtqbxtr NILLFacility: Rgtart: 12-09-2024 End: 87-09-9777qwagmkgumxDsnbjbb M Hoy MD Work Phone: [facility] Work Phone: Start: 12-09-2024 End: 66-48-1821Sdroshaa ReferredDouglas Hoy M MD-LAB Path [facility] Start: 10-30-2023 End: 68-03-2640ndipnouuouJBSNUSK M HOYFacility:[facility] Hospitaltart: 08-08-2023 End: 12-13-2762ymgzgmkwceSIZNRTD PELLEFacility:[facility] Hospitaltart: 08-08-2023 End: 15-24-9097Revjgtszww hospital visit by physiciani [address] Q (I-Stat/1.5t/3t) Work Phone: MRI QComment on above:Adjacent segment disease of lumbar spine with history of fusion procedure [M51.36, Z98.1]Start: 08-07-2023 End: 88-34-6524gfuvaeffuhVO Douglas Berta Nicanor Work Phone: [facility] Work Phone: Start: 08-07-2023 End: 60-95-8874Ymthysv encounter procedureMD Sara Vick Work Phone: [facility] [place] Work Phone: Start: 07-13-2023 End: 10-74-5881mmxnknfsrvTKCEPUA PELLEFacility:[facility] Hospitaltart: 07-13-2023 End: 44-88-7090Prenhdxphs hospital [facility] Dasia Work Phone: RadiologyComment on above:Chronic bilateral low back pain with bilateral sciatica [M54.42, M54.41, G89.29]Start: 07-01-2023 End: 93-54-9086Qdhfhjc encounter procedureMD Sara Hoy Work Phone: [facility] V[facility] Work Phone: Start: 06-30-2023 End: 50-38-0889Mvwpopb encounter procedureMD Sara Hoy Work Phone: [facility] Work Phone: Start: 06-24-2023 End: 38-06-4302Qiliyqj encounter procedureGhanshyam Lombardi MD Work Phone: Spine InstituteComment on above:Adjacent segment disease of lumbar spine with history of fusion procedure (Primary Dx); Chronic bilateral low back pain with bilateral sciaticaStart: 06-24-2023 End: 23-67-4983bqeytdixukVCRLVJC PELLEFacility:[facility] Hospitaltart: 06-24-2023 End: 58-05-8239Yqxjgseffm hospital visit by physicianXr Main Xu6RvgqequlrMkjrgot on above:Fusion of spine of thoracolumbar region [M43.25]Start: 05-22-2023 End: 20-58-6122tgxmcvrjwwFP Sara M Hoy Work Phone: [facility] Work Phone: Start: 05-22-2023 End: 43-99-3524Igdqtko encounter procedureMD Sara Hoy Work Phone: [facility]-Ultrasound Main [place] Work Phone: Start: 05-20-2023 End: 33-11-8021Ufzxrkseew RecurringMD Sara Hoy Work Phone: [facility]-Metaphysician [address] RdStart: 00-04-6572Dxukvwdpxw RecurringMD Sara Hoy Work Phone: [facility]-Metaphysician [address] RdStart: 72-53-1259Zcewvmb encounter procedureMD Sara Hoy Work Phone: [facility]-Start: 05-15-2023 End: 09-19-4467acotdskjmhJxivzn Zaky Other [place] [employer] Other Start: 45-79-5433Pfevid outpatient visit 25 minutes Larry Nix Pain Management [place]Start: 05-15-2023 End: 72-57-8822Bhgatoa encounter procedureMD Sara Hoy Work Phone: [facility]-Start: 05-13-2023 End: 82-48-6151oasmtkzllrIeuydqf Langenberg Other [facility] Other Start: 68-89-7538Cpehkh outpatient new 60 minutes Kiran ChecoFPG Vascular SurgeryStart: 05-13-2023 End: 55-80-5166Idrnkaf encounter procedureMD Sara Hoy Work Phone: [facility]-Start: 04-16-2023 End: 81-30-3916rbpirjbyouRkdfv Shane Other [facility] [employer] Other Start: 92-80-5527Qsnfmvgrx encounterPeggcarolina PadgettG Pain ManagementStart: 04-03-2023 End: 62-34-7878goqpqvkndvOyjucw Zaky Other [facility] [employer] Other Start: 91-74-9791Ipzxet outpatient visit 15 minutes Larry BrownFPG Pain Management [place]walkStart: 04-03-2023 End: 87-46-9063Mcmkycg encounter procedureMD Sara Hoy Work Phone: [facility] [place] Work Phone: Start: 03-25-2023(PROC) PROCEDURESherif [facility] OutPtStart: 03-25-2023 End: 36-35-7702Cuxywjeza to same day surgery centerMD Sara Hoy Work Phone: [facility]-Digestive Health Work Phone: Start: 03-25-2023 End: 36-06-2974klgmiqgxhmQZ Sara M Hoy Work Phone: [facility] Work Phone: Start: 03-06-2023 End: 01-57-4626Cmzsccb encounter procedureMD Sara Hoy Work Phone: [facility] [place] Work Phone: Start: 02-10-2023 End: 63-88-4769cbwbeyjgfrSrssg Shane Other [facility] [employer] Other Start: 10-79-9365Eqlkswuel encounterPeggy HartFPG Pain ManagementStart: 01-27-2023 End: 89-48-4285eaivvxlssqZaete Shane Other [place] [employer] Other Start: 90-77-2853Jbgcfn outpatient visit 25 minutes Dominique HartFPG Pain Management [facility] Centertart: 76-42-0454Ecacqxjxo encounterSherif ZakyFPG Pain ManagementStart: 01-09-2023 End: 43-37-2595wtoiwofosfNztevb Stephanie Other [facility] [employer] Other Start: 09-28-2388Vakstm outpatient visit 25 minutes Larry ZakyFPG Pain Management [facility]buff[facility] medical centerkStart: 12-12-2022 End: 77-83-4783bxjznycvocBzcjpk Stephanie Other [facility] [employer] Other Start: 12-56-1759Ivmvme outpatient visit 25 minutes Larry ZakyFPG Pain Management [facility] Centertart: 09-19-2022 End: 78-17-6120zekgwmyxpfXmjcof Stephanie Other [employer] Other Start: 82-01-8292Nodtat outpatient visit 25 minutes Larry ZakyFPG Pain Management [facility] Centertart: 63-89-6105wmgswefippOMLHMNilson Castaneda [facility] Foundationtart: 09-18-2022 End: 41-02-5174Njhulc outpatient new 30 minutesPerfecto Burch MD Work Phone: [facility] OrthopedicsComment on above:Pain in prosthetic joint, sequela (Primary Dx)Start: 09-18-2022 End: 99-39-6302Rgrrodtyvt hospital visit by Lyn Burch MD Work Phone: [facility] RadiologyStart: 62-05-0459iqlwdidzteRJPEW D HIGHLANDERFacility:X0Dqyar: 09-09-2022 End: 94-71-7235moaabryfouVHPNB D HIGHLANDERFacility:Z3Crixx: 08-18-2022 End: 78-32-5522jmmhejeqzpUTFCD D HIGHLANDERFacility:H8Oegsk: 08-13-2022 ambulatoryInd[facility] HospitalStart: 08-12-2022 End: 01-28-9344joseyljrglWIFXJ D HIGHLANDERFacility:K5Jlrml: 08-08-2022 End: 78-63-5706idvclehrnePM ALFRED V WESTFacility:I2Ytouu: 08-01-2022 End: 32-36-0123pjftizwlnbDKCAG D HIGHLANDERFacility:T7Ccgdh: 07-26-2022 End: 96-51-4295HvrqljoteyrJsvjsmlv S Kaler [facility] Start: 85-04-8155Htlewolfq for preprocedural cardiovascular examinationPETER D [facility] HospitalStart: 35-79-6371Ofsyuvxym for preprocedural laboratory examinationPETER D [facility] HospitalStart: 07-24-2022 End: 62-35-4153zrquzeqvnyVHAPR D HIGHLANDERFacility:BAYLStart: 07-24-2022 End: 18-29-2954zhzhfvweatBECJL D HIGHLANDERFacility:S1Jyphp: 07-18-2022 End: 44-01-9962gxidlfvuglUYCCU D HIGHLANDERFacility:P0Avbzt: 07-18-2022 End: 30-57-8512Ieubbgwjp for preprocedural cardiovascular examinationPETER D HIGHLANDERFacility:X6Aclqp: 07-08-2022 End: 42-61-1218hmukxikskxVPSOX D HIGHLANDERFacility:Z9Scmza: 07-01-2022 End: 96-00-0736pstwauotbsXV ALFRED V WESTFacility:D8Ptphh: 06-24-2022 End: 34-73-7737bsyfqguwjeGQYWU D HIGHLANDERFacility:T8Odcvb: 06-19-2022 End: 33-91-4607rwnpebrnfbNO ALFRED V WESTFacility:D2Dncbb: 06-19-2022 End: 09-67-2576hchgehaybmQP Sara Hampton Hocarolina Work Phone: [facility] Work Phone: Start: 06-19-2022 End: 78-64-7838Rofvpwavct RecurringMD Sara Vick Work Phone: [facility]-Physical Therapy [place] Work Phone: Start: 06-13-2022 End: 04-91-8123ldsuocgqtmKR ALFRED Deal WESTFacility:N6Enzlb: 06-10-2022 End: 80-73-8040kkvshhrsgmVM ALFRED V WESTFacility:D0Evrus: 06-09-2022 End: 46-21-9631hjyinnfizvFSVBC D HIGHLANDERFacility:O6Dpdhc: 06-03-2022 End: 28-50-4404gdqwqvmcfnCG ALFRED V WESTFacility:C8Ippdu: 05-28-2022 End: 22-45-5158mmbuyasmabBU ALFRED V WESTFacility:T4Cqsrx: 05-21-2022 End: 48-56-0441xuotacsivvLM AKIL ALEJANDRAFacility:E8Bvron: 05-21-2022 End: 73-66-2965upeqmwgrejUB ALFRED Deal WESTFacility:E4Ruifm: 05-21-2022 End: 32-39-8450oggcnbvnpyPO SARA HOY .Facility:P6Lrvgd: 05-02-2022 End: 76-51-0524jgkzprrpnwTmkoze Zaky Other [place] [employer] Other Start: 70-46-0488Rrzfgz outpatient visit 25 minutes Larry Nix Pain [facility] PradipThe Hospital of Central Connecticuttart: 05-01-2022 End: 57-63-5612gqqodkpgokJIGRC D HIGHLANDERFacility:F8Faksr: 04-22-2022 End: 48-26-2471vivvqindhoYRNCR D HIGHLANDERFacility:O6Azwgf: 04-14-2022 End: 18-13-8874rsttjqnoxgTWVEYQUK CULLENFacility:N8Gjkga: 04-08-2022(PROC) PROCEDURESherif StephanieDeepalie [facility] Surgery CenterStart: 04-08-2022 End: 70-23-5360sugahxyhjsNhdtno Zaky Other [facility] Other Start: 03-31-2022 End: 67-67-1536zggcbvhsahNM ALFRED UMAÑAFacility:O0Igsxn: 03-08-2022 End: 93-92-5765Lsuzygywk department patient Hamilton BertaKimberlee Nagy [facility] Start: 03-07-2022 End: 80-20-9800tgcuiiqmbvWfbspe Zaky Other [facility] Other Start: 95-66-2743Aohkru consultation new/estab patient 60 minSaramis CarrillokyFPG Pain Management [place]walkStart: 03-06-2022 End: 72-64-6155ogokttuvxsNU SARA VICK .Facility:Y4Qlhoz: 01-03-2022 End: 25-63-1047xiecbrisnyQQ SARA JASVIRY .Facility:K4Jwxdb: 12-09-2021 End: 47-94-3355rjoonfnylvXWHZTP CRAMERFacility:Q3Aimnv: 11-05-2021 End: 68-33-5492pfrflagmvySDBQI D PREETANDERFacility:I5Pboiw: 10-07-2021 End: 09-15-1579nhrkcvczyrSZMLDX RODRIGUEZ .Facility:E4Yqmei: 05-04-2020 End: 16-11-9941Xxxqdpx encounter procedureDougjuan antonio VickPvw-Tyd-Uuwcxwtb TestingStart: 46-07-0046Sbgkntcinr RecurringDouglas Hoy-Physical Therapy Bone CreekStart: 04-24-2020 End: 79-71-3476Qwhpyke encounter procedureDougjuan antonio Fvy-Zqg-Laroegmt TestingStart: 02-01-2020 End: 91-30-9951Ovqunkh encounter procedureDouglas Hoy-XRay Viktoria OrthoStart: 08-96-1141Tbvekph encounter procedureDougjuan antonio~[phone] UNKNOWN HoyFacility:[facility] Start: 12-11-2017 End: 12-39-0933Lutreds encounterDEFAULT PHYSICIANFacility:[facility] Procedures DateProcedureProcedure DetailPerforming ClinicianStart: 01-03-2025 End: 64-75-8374Jneslrqej Comparison study - date and timeMarry Mathew MD Work Phone: Start: 05-11-7421Ati spinal canal thoracic w/o contrast matrlDmalka Lombardi MD Work Phone: Start: 70-81-7021Ay lumbar spine w/o contrast material Ghanshyam Lombardi MD Work Phone: Start: 06-24-2023 End: 10-34-4380Drxpe spine lumbosacral minimum 4 viewsRachel S Davidson VP SCIENTIFIC [employer].MANNEQUIN DECORATOR Work Phone: Start: 04-94-5319Okthc volume recorder pneumoplethysmographyMD Sara Hoy Work Phone: Start: 16-22-3688Dpfajq scan of lower limb veinsMD Sara Hoy Work Phone: Start: 51-66-1623Tlbrm anesthetic sacral epidural blockMD Sara Hoy Work Phone: [phone]: 32-53-6814Eudww X-ray of femurDouglas HoyStart: 70-94-9065O-ray of right kneeDouglas HoyStart: 29-06-6326Vrgexxvcz of sacroiliac joint using fluoroscopic guidanceWm Nagy Comment on above:left ~ 80 % relief day 3 X2 weeks , pain starting to increaseStart: 96-32-1673RqzefackvsxXcmevnp NILL Start: 90-33-3206NvqxmrvfqzuqvkpnorlkntdvnwLzgevzz NILL Start: 22-76-8525Oidpwyjxrleenn Epidural Steroid Injection 2Kjosep Nagy Comment on above:Bilateral L3- 50% relief starting one week after procedureStart: 19-43-5245Rgbhpoceasjni epidural steroid injection 3 Wm Nagy Comment on above:Left L3, L4 40% relief for couple weeksStart: 12-31-5717Tdbpfcid and curettage of uterusKemariluz Nagy [employer] Start: 65-90-5548rduyag fusion L4-5Wm [email or web address] Start: 70-28-3574Qvqbrsqd injection of lumbar spine using fluoroscopic guidanceJosémariluz [email or web address] Comment on above:L4-5 70-80% relief and lasted 1.5 weeksStart: 96-08-4183Juprofie injection of lumbar spine using fluoroscopic guidanceWm [email or web address] Comment on above:L5-S1 50% reliefStart: 02-21-2013 Injection of facet joint using fluoroscopic guidanceWm [email or web address] Comment on above:bilateral L3-S1 FJI 50% reliefStart: 32-68-3098Ycekywrai of facet joint using fluoroscopic [email or web address] [email or web address] Comment on above:bilateral L3-S1 FJI 0% relief that day, next day 40% relief and 50-60% reliefStart: 19-27-7798Aknishqr injection of lumbar spine using fluoroscopic guidanceWm [email or web address] Comment on above:L5-S1 50% reliefStart: 09-02-2012 Epidural injection of lumbar spine using fluoroscopic guidanceWm [email or web address] Comment on above:L5-S1 left,, no relief, increased pain Start: 57-52-3610Zlxjesp of repair of musculotendinous cuff of shoulderStatus post rotator cuff surgery, rightGhanshyam Lombardi MD Work Phone: Start: 13-55-7077Irzbbacp of ganglion cystWm Nagy Start: 52-58-4749Nekedfetuytwn of median nerveWm Nagy Start: 03-36-6544Onrrsu of musculotendinous cuff of shoulderWm Nagy Start: 77-65-6527MnlouljsbahtiftGbcjk Lewis Excision of ganglion cystMichael NILL Extraction of cataractMichael NILL foot surgery right m8Mdcwr Yakov left THAWm Yakov Ligation of fallopian tubeWm Nagy Lumbar and lumbosacral fusion by posterior technique Wm Nagy Comment on above:[address] Gilman, cleaned infection out 2nd surgery, infection spread removal of rib and higher fusion (3rd surgery) Percutaneous transluminal laser ablation of varicose vein of lower limbMichael NILL Repair of joint of left hipMichael NILL right knee scope with partial meniscectomyWm Nagy Plan of Treatment DateCare ActivityDetailAuthorStart: 27-79-7111Pifbh panelCholesterolMetroHealth Start: 34-67-3958YUB vaccine (adult) (1 - 1-dose 75+ series)RSV vaccine (adult) (1 - 1-dose 75+ series)[facility]HealthStart: 01-24-2025 End: 74-00-8075Scdqnhw encounter tygjgjwnn58/07/2025 11:30 AM EDT Office Visit [facility] [address] [place] [id number] Marry Mathew MD [address] [place] [address] [facility] SpineStart: 98-98-0700Sctocvmfn vaccinationInfluenza Vaccine (#1)[facility]HealthStart: 43-66-1161UCOQT-19 Vaccine ( season)COVID-19 Vaccine ( season)[facility]HealthStart: 80-21-4904NORHJ-19 Vaccine ( season)COVID-19 Vaccine ( season)[facility]Start: 45-56-1484Gwqyuazma vaccination Influenza Vaccine (#1)[facility]: 33-58-2018Fssrbrr to Medicare Visit (G0402)Welcome to Medicare Visit (G0402)[facility]: 35-62-8594Egmdtvyu identified in Urine by CultureUrine CultureUc [facility] Start: 47-67-7515Zyvaj cultureUniversity Hospitals Health Systemtart: 08-04-2024 Screening for malignant neoplasm of breastSouthern [facility] Centertart: 90-63-5443OX Controlled (<130/80)BP Controlled (<130/80)[facility]: 12-20-2023 Influenza vaccinationInfluenza Vaccine (Season Ended)[facility]: 37-49-4770Szulu volume recorder pneumoplethysmographyUS arterial pvr rest [facility] Hospitaltart: 39-09-0430UfsgpyfxjUniversity Hospitals Health Systemtart: 70-88-7583Rugqqb scan of lower limb veinsUS venous duplex LE [facility]: 54-23-8324FC Lower extremity vein - bilateralUniversity Hospitals Health Systemtart: 57-75-8066Czijgej Directive DiscussionAdvance Directive DiscussionSouthern [place] Medical Centertart: 04-20-2023 Behavioral Health ScreeningBehavioral Health ScreeningSouthern [place] Medical Centertart: 86-30-3054Uipudbwynr AssessmentDepression AssessmentSouthern [place] Medical Centertart: 93-39-5679TtpedlvulUniversity Hospitals Health Systemtart: 62-21-1982Kihmdhiwj for malignant neoplasm of breastMammogram ScreeningSouthern [place] Medical Centertart: 12-19-2022 Covid-19 Vaccine ( season)Covid-19 Vaccine ( season) [facility] [place] [facility]: 59-12-7803Tdgeyuogf vaccinationInfluenza Vaccine (#1) [facility] [place] [facility]: 80-51-9424JUKLS-19 VACCINE (5 - Booster for Pfizer series)COVID-19 VACCINE (5 - Booster for Pfizer series)[facility]: 20-48-2764Wkhjqydeh for malignant neoplasm of breastMAMMOGRAM SCREENING [facility]: 49-63-3902Scisypujfqgv vaccination Pneumococcal Vaccine(s) (50+ yrs) (2 of 2 - PPSV23)[facility]: 12-20-2016 Screening for osteoporosisSouthern [place] Medical Centertart: 32-59-7000Waioqgzj Screening Diabetes ScreeningSouthern [place] Medical Centertart: 05-52-5946Cgamptsqg B (HBV) Vaccine (optional start 60+ years)Hepatitis B (HBV) Vaccine (optional start 60+ years) [facility]: 61-50-5372GOB Vaccine (1 - 1-dose 60+ series)RSV Vaccine (1 - 1-dose 60+ series)[facility] [place] [facility]: 36-91-5451Jgnvzgwoqraw vaccination Pneumococcal Vaccine(s) (50+ yrs) (1 of 1 - PCV)[facility]: 12-20-2001 Shingles (RZV) Vaccine (1 of 2)Shingles (RZV) Vaccine (1 of 2)[facility]: 43-95-4735Hfnunmbj Vaccine (1 of 2)Shingrix Vaccine (1 of 2)[facility] Start: 82-72-4491Wiwcjj vaccine hzv live for subcutaneous useZOSTER (SHINGLES) VACCINE (1 of 2)[facility]: 41-90-3521Kpimm panelTrinity Health System East Campus Start: 26-81-3360Fkkszpoun for malignant neoplasm of colonWooster Community Hospital Start: 02-21-3918Lbhgs panelLIPID SCREENINGWood County Hospitaltart: 1991 Screening for malignant neoplasm of breastMammographyMetroHealthStart: 09-31-1678Klfyfcepa for malignant neoplasm of cervixCERVICAL CANCER SCREENING DISCUSSIONWood County Hospitaltart: 54-72-3799Vskiuyqis A (HAV) Vaccine (optional start 19+ years)Hepatitis A (HAV) Vaccine (optional start 19+ years) [facility]: 20-34-0668Omeghwc vaccinationTetanus (Td or Tdap) Booster [facility]: 39-02-3521Xhvxe diphtheria, tetanus and acellular pertussis (DTaP) vaccinationTDAP (ADULT)[facility] SystemStart: 50-85-9815Feorw microalbumin profileDTaP,Tdap,Td Vaccine (1 - Tdap)[facility] [place] [facility]: 65-43-8095Zijsfe PCP Team Chronic Disease VisitAnnual PCP Team Chronic Disease VisitSouthern [place] Medical Centertart: 51-55-0487Csrdjikra C screeningHepatitis C Antibody [facility]: 94-14-6887Varl BoosterTdap BoosterMetroHealthStart: 1950 Hepatitis C screeningHEPATITIS C VIRUS SCREENINGWood County Hospitaltart: 22-88-1578Lqvjfthpt for malignant neoplasm of colonColonoscopyMetroHealthStart: 77-88-9013Oomtoxtcg for osteoporosisDEXA SCAN [facility] Start: 65-99-5478Uzvaare vaccinationTEGalion Community Hospital End: 92-89-3016KL Lumbar spine WO contrastCT LUMBAR SPINE WO IVCON Radiology Routine Chronic bilateral low back pain with bilateral sciatica 1 Occurrences starting 06/24/2023 until 07/23/2024[facility] Work Phone: Comment on above:1 Occurrences starting 06/24/2023 until 07/23/2024 End: 33-10-0551SU Thoracic spine WO contrastMRI THORACIC SPINE WO IVCON Radiology Routine Adjacent segment disease of lumbar spine with historyof fusion procedure Chronic bilateral low back pain with bilateral sciatica 1 Occurrences starting 06/24/2023 until 07/23/2024[facility] Work Phone: Comment on above:1 Occurrences starting 06/24/2023 until 07/23/2024Patient EducationZaky Non Diagnostic BlockParkwood Hospital Work Phone: [facility] Work Phone: XR Knee - left 3 ViewsXR KNEE LEFT 3 VIEWS Imaging Routine Pain in prosthetic joint, sequela Ordered: 09/16/2022[facility] [employer] [facility] Comment on above:Ordered: 09/16/2022XR Pelvis and Hip - left ViewsXR HIP WITH PELVIS LEFT Imaging Routine Pain in prosthetic joint, sequela 09/18/2022 10:11 AM [facility] Work Phone: [facility] Immunizations Immunization DateImmunizationNotesCare IuerfdpbFmvpornf67-38-8391Lvfcizyzq, injectable, Madin Hillary Canine Kidney, preservative free, quadrivalentMD Sara Vick Work Phone: [facility]10-25-2022influenza virus vaccine, unspecified formulationGhanshyam Lombardi MD Work Phone: [facility] System [facility] CampusIgpuqp66-33-2481YKHUH-99 Comirnaty (Pfizer) Tri-Sucrose 12+MD Sara Vick Work Phone: [facility]08-16-2022SARS-CoV-2 mRNA (batuxrxfhsv-ksbh-apgrkmm) vaccineMichael NILL [phone]-MbvnfBluffton Hospital [facility] [place] 97-90-7819OLROB mRNA, Comirnatcarolina (Pfizer)MD Sara Vick Work Phone: [facility]03-25-2021COVID-19, mRNA, LNP-S, PF, 30 mcg/0.3 mL doseKevin Yakov [facility] HospitalComment on above:Reason for Medication: Rwfxaqvmmoi82-84-2551MUFTQ-29, mRNA, LNP-S, PF, 30 mcg/0.3 mL doseKevin Yakov [facility] HospitalComment on above:Reason for Medication: Cnrutgdznjp38-90-4885Oekictmk trivalent influenza vaccine, adjuvanted, preservative freeMD Sara Vick Work Phone: [phone] [place], [place] 7738011-06-2018influenza, injectable, madin hillary canine kidney, preservative freeMD Sara Hoy Work Phone: [phone] [place], [place] 7738011-01-2018 pneumococcal polysaccharide vaccine, 23 valentKemariluz Yakov [facility] HospitalQjuftzdx37-39-9441fjqhdpyihm skin test; unspecified formulationPraveen Bynum 11788546-05-7259iwpjefkjiprm polysaccharide vaccine, 23 valentMD Sara Hoy Work Phone: [phone] [place], [place] 7738010-19-2017influenza, high dose seasonal, preservative-freeMD Sara Hoy Work Phone: [phone] [place], [place] 7738010-19-2017 pneumococcal conjugate vaccine, 13 valentKevin Yakov [facility] HospitalJiyyokli24-90-5802nfklymkzw, seasonal, injectable, preservative freeMD Sara Hoy Work Phone: [phone] [place], [place] 7738007-03-2013 pneumococcal polysaccharide vaccine, 23 valentKevin Yakov [facility] Payers DatePayer CategoryPayerPolicy ID2025Medicare (Managed Care)[facility] [id number]-pqz [id number] [id number] 2023 Private Health Insurance2019Medicare [id number] Health Insurance [id number] 2.16.840.1.013864.3.579.2.34295-18-4088Oospwsd [id number] 2.16.840.1.503185.3.57[id number] 2.16.840.1.758031.3.57[id number] 2.16.840.1.817495.3.57[id number] 2.16.840.1.808386.3.57[id number] 2.16.840.1.176886.3.579.[id number] 2.16.840.1.793063.3.57[id number] 2.16.840.1.984753.3.579.2.[id number] 2.16.840.1.615403.3.579.2.99650-05-0752Rmglpje4612393 2.16.840.1.177232.3.579.2.62286-53-7502Cckytoj7096301 2.16.840.1.859349.3.579.2.40916-48-3679Ujjeblz0698734 2.16.840.1.249618.3.579.2.44370-75-4014Hbnkqvg2132625 2.16.840.1.844285.3.579.2.81089-23-0632Vtdgskq8616983 2.16.840.1.065573.3.579.2.15462-63-2368Ygzsrve1696433 2.16.840.1.738161.3.579.2.74416-05-3168Scwsfkn2760235 2.16.840.1.799120.3.579.2.58431-65-7763Dikffza9114062 2.16.840.1.795630.3.579.2.68417-94-7306Nmxrsyv6638009 2.16.840.1.442807.3.579.2.02702-33-0478Jxxgaqz1910695 2.16.840.1.725933.3.579.2.48479-27-0024Uexxxeu7833768 2.16.840.1.579813.3.579.2.08472-46-5173Oyhoiui4236864 2.16.840.1.078840.3.579.2.11810-48-2856Pgwnvlf1604629 2.16.840.1.627339.3.579.2.62727-23-1225Qnhbgjt2409845 2.16.840.1.418912.3.579.2.11872-18-3186Emdqzqb4921552 2.16.840.1.527416.3.579.2.28881-48-1266Calmdzx7083360 2.16.840.1.080616.3.579.2.59637-82-6456Kbzusws1638282 2.16.840.1.672327.3.579.2.49351-34-5117Cxlocll8626702 2.16.840.1.316978.3.579.2.32092-46-2380Hpvfrtd5637223 2.16.840.1.114264.3.579.2.35610-40-5580Huzhzbs0782468 2.16.840.1.287405.3.579.2.44391-34-5172Declqvp9139228 2.16.840.1.745079.3.579.2.50074-83-2484Opuhfvx2232205 2.16.840.1.635637.3.579.2.59359-13-8187Qodgfvo00778366 2.16.840.1.942294.3.579.2.32266-16-0672Nfmledx99156447 2.16840.1.568549.3.579.2.80560-17-8799Zhkzzkg72208031 2.16840.1.546273.3.579.2.38445-99-6970Spkvuyn398834026 2.16840.1.398723.3.579.2.07827-06-3912Pmofsnh096268426 2.16840.1.357818.3.579.2.61802-57-5247Gusqnjj366894323 2.16840.1.051725.3.579.2.36329-62-5438Prakqrr432984982 2.16840.1.684615.3.579.2.65130-68-3426Hyitooh713969119 2.16.840.1.910316.3.579.2.29943-75-2741Zammwzf73879150 2.16.840.1.790758.3.579.2.595427-65-1862Avhrvbq56263711 2.16.840.1.849631.3.579.2.50534-64-9520Pfustdz48968658 2.16840.1.829481.3.579.2.227YrbktwkFttssvaHQL023T71957 4m086300-539g-71rq-11q8-5p36dx946311IrioartVZN865D55600 7513bpy7-2u36-5gc1-m5z4-q83909696s5mFamimkd618618616 e6w0120g-p08h-5060-iple-87u5u8nn4879SincsybHGPH/HFA/FAP AbmcagS08336 fef2224l-0943-23b7-47k2-5x4wlwl7w60iQxdryvu96454616 2.16.840.1.872187.3.579.2.531 Social History DateTypeDetailFacilityStart: 07-97-3505Dwsqebv if ever smokedParlarry Bynum Start: 04-24-2020 End: 02-91-6913Ykkqbgd smoking status NHISNever smoked tobacco (finding)[facility]: 22-81-0916Qgo Assigned At [facility]tart: 61-57-2628Xkk Assigned At [facility] [place] [facility]art: 22-89-5022Kvckern use and exposureSmokeless tobacco non-userChildren'S Hospital For Rehabilitation SystemStart: 09-18-2022 End: 16-65-2302Kbiqame intakeCurrent drinker of alcohol (finding)[facility] SystemStart: 46-24-7924Qzlrxgf CommentoccasionalAWexner Medical Center SystemStart: 54-68-0651Tbp Assigned At BirthNot on fileChildren'S Hospital For Rehabilitation SystemStart: 06-24-2023 Alcohol intakeCleveland ClinicNational Score (1-100), lower number is lower risk 62L[facility] ClinicStart: 07-08-2018 End: 77-36-8898AjqOcdbhl (finding)[facility] [place] Medical Equipment Procedure CodeEquipment CodeEquipment Original TextEquipment IdentifierDates Arthroplasty, knee, total, minimally invasiveOrthopaedic cement, non-medicated ()[id number] FDAStart: 05-65-0072Cpkvgcsyvooi, knee, total, minimally invasiveUncoated knee femur prosthesis, metallic ()[id number] FDAStart: 67-84-6526Qlcifgnldrzd, knee, total, minimally invasiveTibial insert()[id number] FDAStart: 19-43-6586Dgdipqtqpmsb, knee, total, minimally invasiveUncoated knee tibia prosthesis, metallic()[id number] FDAStart: 79-17-2339Kpowzsymcdse, knee, total, minimally invasivePolyethylene patella prosthesis()[id number] FDAStart: 05-07-2020 Goals DatePatient GoalDesired Activity/State Functional Status DwnaYisaysjwzjUxsnczOrvibbjl49-11-2120Xsmzmytngs StatusNoMartin Memorial Hospital04-08-2023Functional StatusMartin Memorial Hospital11-19-2022 Functional StatusOhio[facility] Clinical Notes 10-07-2021 to 01-24-2025 Note Date & UviqEmznIjorpojj02-26-6002 History of Present illness Narrative* Mary Samuel MA - 01/24/2025 11:12 AM EDT Patient was identified by name and date of . Mary Samuel MA * Marry Mathew MD - 01/21/2025 5:37 AM EDT Images from the original note were not included. CONSULTED BY: Bladimir Vick MD CC: Can not stand up straight HPI: 74yo Lhd female who does not work. She is status post 5 low back surgery done elsewhere. She has had a Pseudomonas aeruginosa infection in her low back. She states it is becoming more difficult to look at the horizon. She has noticed that her walking stamina has decreased significantly. She isfairly healthy. She denies symptoms of myelopathy -- no clumsiness in her hands no clumsiness in her gait she does have some bowel bladder urgency but everything feels normal when she hygiene. She can lie flat with her head resting on a pillow but she tends to lie with her head somewhat upright.. She has had a R total hip replacement and has been told she needs her L 1 done also. She has not had m ultiple abdominal nor pelvic surgeries. For PMHx, PSHx, medications, allergies, SOCHx, ROS and FAMHx, please refer to the scanned New patient Questionnaire PHYSICAL EXAM: General: AXOX3, no acute distress. Lower extremities: She rises cautiously from a seated position by pulling herself up by the counter. She walks with an obvious positive sagittal deformity. She walks with a wheeled walker. Heel walking, toe walking and tandem walking can not be tested. She gets on and off the exam table cautiously.She can not lie flat on the exam table she does have pain when she does this. 5/5 all muscle groupsbilateral lower extremities and sensation is globally intact to light touch L2-S1 dermatomes. DTRs are normoactive and equal in her knee jerk and ankle jerk and she has no clonus. Full nontender range of motion bilateral ankles and knees. Decreased range of motion of her L hip compared to her R. Upper extremities: Spine: Lumbar spine and inspection shows a well-healed incision no evidence of ongoing infection. She has difficulty standing upright even when forced. Cervical spine range of motion is fairly full nontender, negative Lhermitte's. INVESTIGATIONS: Standing scoliosis xrays performed CT scan lumbar performed Hounsfield units are 160 above her last instrumented level MRI thoracic performed IMPRESSION: 74yo female status post multiple surgeries, failed back, post laminectomy syndrome. PLAN: I told her I would be happy to help her. I am very concerned about the history of the PA infection. We would have to make sure all of her inflammatory markers are normal. If they are elevated the 1st step and reconstructing her would be to remove the posterior instrumentation. She has an anterior cage and side plate at L1-2 but I do not think we need to take that out. And just looking at her studies initially the plan would be an ALIF at L5-S1 and probable PSOs above and below her anterior fusion at L1-2. I told her I need to discuss with Dr. Vick of further workup including labs and evaluation of her bone density. documented in this yhdqiqhufIzzgbFrkgzk27-67-9801 History of Present illness Narrative* Flor Ziegler RT(Bryce) - 08/08/2023 3:40 PM EDT Radiology Service Progress Note PATIENT NAME: Leelee Cedillo DATE OF SERVICE: August 08, 2023 TIME: 3:59 PM PATIENT IDENTITY VERIFICATION COMPLETED USING TWO (2) IDENTIFIERS: Name and Date of confirmedby patient verbally and Name and Date of confirmed by identification band. FALL SCREENING: Has the patient had 2 falls in the last year or 1 fall with injury or currently using an Ambulatory Assistive Device (Walker, Cane, Wheelchair, Crutches, etc.)? Yes, Patient High Riskfor Falls What interventions were put in place to prevent falls during this visit? Non- Skid Socks Used, Yellow Falls Risk Wristband Applied, Instructed Patient to Call for Help if Needed, Offered Assistance with Transfers/Clothing, Instructed Patient to Remain Seated (Not on Exam Table) Until Exam, and Increased Observations by Caregivers PATIENT GENDER DATA: Female. status: : No status: NO. PATIENT RELEVANT IMPLANT DATA REVIEWED: Yes PATIENT PRESENTS WITH AN IMPLANTABLE OR ATTACHED SUBWAY OPERATOR: No RADIOLOGY DEPARTMENT: MR; Exam(s) Completed: Spine: Thoracic spine PERIPHERAL IV DATA: Not applicable SIGNED BY: RT Felipa(Bryce) August 08, 2023 3:59 PM documented in this encounterTrinity Health System [facility]04-20-2024 NoteHNO ID: [id number] Author: FLOR ZIEGLER RT(R) Service: Radiology Author [...] PATIENT PRESENTS WITH AN IMPLANTABLE OR ATTACHED SUBWAY OPERATOR: No RADIOLOGY DEPARTMENT: MR; Exam(s) Completed: Spine: Thoracic spine PERIPHERAL IV DATA: Not applicable SIGNED BY: RT Felipa(R) August 08, 2023 3:59 [facility]03-25-2024 History of Present illness Narrative* Torrie Abraham, RT(R) - 07/13/2023 10:40 AM EDT Radiology Service Progress Note PATIENT NAME: Leelee Cedillo DATE OF SERVICE: July 13, 2023 TIME: 10:44 AM PATIENT IDENTITY VERIFICATION COMPLETED USING TWO (2) IDENTIFIERS: Name and Date of confirmedby patient verbally and Name and Date of [...] PATIENT PRESENTS WITH AN IMPLANTABLE OR ATTACHED SUBWAY OPERATOR: No RADIOLOGY DEPARTMENT: CT; Exam(s) Completed: Spine PERIPHERAL IV DATA: Not applicable SIGNED BY: RT Se(Bryce) July 13, 2023 10:44 AM documented in this encounterTrinity Health System [facility] Campus03-25-2024 NoteHNO ID: [id number] Author: TORRIE ABRAHAM RT(R) Service: Radiology Author [...] PATIENT PRESENTS WITH AN IMPLANTABLE OR ATTACHED SUBWAY OPERATOR: No RADIOLOGY DEPARTMENT: CT; Exam(s) Completed: Spine PERIPHERAL IV DATA: Not applicable SIGNED BY: RT Se(Bryce) July 13, 2023 10:44 [facility]03-06-2024 NoteHNO ID: [id number] Author: GHANSHYAM LOMBARDI MD Service: ? Author [...] our discussion. 30 minutes spent Ghanshyam Lombardi [facility]03-06-2024 History of Present illness Narrative* Ghanshyam Lombardi MD - 06/24/2023 1:40 PM EST Staff note: Patient seen and examined Patient [...] With this in mind it is reasonable toproceed with: As above CT lumbar spine MRI thoracic spine due to severe gait instability I had a long discussion with the patient in the office today, they had many appropriate questions, all were answered to their satisfaction, no guarantees were offer nor implied in our discussion. 30 minutes spent Ghanshyam Lombardi MD documented in this encounterTrinity Health System [facility] Campus01-26-2024 Evaluation note* Encounter Date Diagnosis Assessment Notes Treatment Notes Treatment Clinical Notes Apr, Lumbar radiculopathy (ICD-10 - M 54.16) 77 year old female here for follow [...] In the meantime, she can continue taking Mingo as needed all as well as Gabapentin as prescribed. Apr,Sacroiliitis (ICD-10 - M46.1) Stable, continue medication management for the time being. Apr,Lumbosacral spondylosis (ICD-10 - M47.817) Consider proceeding with a bilateral lumbar facet medial branch nerve blocks in the future if needed. Apr,Lumbar degenerative disc disease (ICD-10 - M51.36) Stable, follow up in 4 weeks for medication refill Apr,hronic pain (ICD-10 - G89.29) Continue medication management. Apr,OtherThis documentation is being amended on 05/18/23 due to an internal data corruption event that occurred on 05/14/23. This data corruption event was NOT the result of any breach, fraud, or malicious third constitution party actors and no personal patient information was compromised. [employer] Other 01-24-2024 Evaluation note* Encounter Date Diagnosis Assessment Notes Treatment Notes Treatment Clinical Notes Apr, Venous stasis (ICD-10 - I87.8) Apr,Wound of right lower extremity, initial encounter (ICD-10 - S81.801A)This patient has suggested we start with arterial [...] agrees with plan all questions were addressed. [employer] Other 12-28-2023 Evaluation note* Encounter Date Diagnosis Assessment Notes Treatment Notes Treatment Clinical Notes Mar, Lumbar radiculopathy (ICD-10 - M 54.16) 72 year old female evaluated via telephonic call for follow up and medication refill for chronic pain. She voices complaints of low back pain with intermittent radiation down the right lower extremity. She continues taking Mingo with relief and is requesting a refill of this today. I discussed geovani abernathy treatment options in detail with the patient. She feels medication is managing her pain and does not wish to proceed with injections at this time. I encouraged the patient to start physical therapy as previously discussed. She can also continue taking medications as prescribed and I will refill her Mingo as she feels this provides an element of relief. Mar,Sacroiliitis (ICD-10 - M46.1) Stable, continue medication management for the time being. Consider SI joint injections in the future if needed Mar,Lumbosacral spondylosis (ICD-10 - M47.817) Consider proceeding with a bilateral lumbar facet medial branch nerve blocks in the future if needed. Mar,Lumbar degenerative disc disease (ICD-10 - M51.36) Stable, follow up in 2 weeks for medication refill Mar,hronic pain (ICD-10 - G89.29) Continue medication management. [employer] Other 12-15-2023 Evaluation note* Encounter Date Diagnosis Assessment Notes Treatment Notes Treatment Clinical Notes Mar, Lumbar radiculopathy (ICD-10 - M 54.16) 72 year old female here for follow [...] for the time being. She can continue Hydrocodone/Acetaminophen as needed. In the meantime I will refer her to physical therapy for core muscle strengthening. Mar,Sacroiliitis (ICD-10 - M46.1) Stable, continue medication management for the time being. Consider SI joint injections in the future if needed Mar,Lumbosacral spondylosis (ICD-10 - M47.817) Consider proceeding with a bilateral lumbar facet medial branch nerve blocks in the future if needed. Mar,Lumbar degenerative disc disease (ICD-10 - M51.36) Stable, follow up in 2 weeks for medication refill Mar,hronic pain (ICD-10 - G89.29) Continue medication management. [employer] Other 10-24-2023 Evaluation note* Encounter Date Diagnosis Assessment Notes Treatment Notes Treatment Clinical Notes Jan, Lumbar radiculopathy (ICD-10 - M 54.16) [employer] Other 10-10-2023 Evaluation note* Encounter Date Diagnosis Assessment Notes Treatment Notes Treatment Clinical Notes Jan, Lumbar radiculopathy (ICD-10 - M 54.16) 72 y/o female here for follow up. [...] regarding this. Meanwhile, I will refill her Mingo as it does provide an element of relief. Jan,Sacroiliitis (ICD-10 - M46.1) Stable, continue medication management Jan,Lumbosacral spondylosis (ICD-10 - M47.817) Consider proceeding with a bilateral lumbar facet medial branch nerve blocks in the future if needed. Jan,Lumbar degenerative disc disease (ICD-10 - M51.36) Stable, follow up in 4 weeks. Jan,hronic pain (ICD-10 - G89.29) Patient has continued need for Hydrocodone/Acetaminophen. [place] report processed and reviewed and shows no violations. Patient was educated on the risks and benefits of rodent exterminator opioid use. Hydrocodone/Acetaminophen was refilled today, opioid risk assessment was done as well as pill count. Patientis compliant with opioid medication. The patient denies any opioid related side effects. [employer] Other 09-22-2023 Evaluation note* Encounter Date Diagnosis Assessment Notes Treatment Notes Treatment Clinical Notes Dec, Lumbar radiculopathy (ICD-10 - M 54.16) 72 year old female here for follow up and medication refill for chronic pain. She voices complaintsof low back pain with radiation down bilateral lower extremities, worse on the right. She also notes significant burning pain in bilateral feet. She notes 2 steroid injections with her PCP in the last week, she also has a healing wound to the right ankle therefore we will not proceed with any steroid injections at this time. In the meantime she can continue Hydrocodone/Acetaminophen as needed. Dec,Sacroiliitis (ICD-10 - M46.1) Stable, continue medication management Dec,Lumbosacral spondylosis (ICD-10 - M47.817) Consider proceeding with a bilateral lumbar facet medial branch nerve blocks in the future if needed. Dec,Lumbar degenerative disc disease (ICD-10 - M51.36) Stable, follow up in 4 weeks. Dec,hronic pain (ICD-10 - G89.29) Patient has continued need for Hydrocodone/Acetaminophen. [place]ARRS report processed and reviewed and shows no violations. Patient was educated on the risks and benefits of rodent exterminator opioid use. Hydrocodone/Acetaminophen was refilled today, opioid risk assessment was done as well as pill count. Patientis compliant with opioid medication. The patient denies any opioid related side effects. Patients last urine drug screen was positive for alcohol, she is counselled against consuming alcohol. [employer] Other 08-25-2023 Evaluation note* Encounter Date Diagnosis Assessment Notes Treatment Notes Treatment Clinical Notes Nov, Lumbar radiculopathy (ICD-10 - M 54.16) 71 year old female here for follow [...] middle of next month. In the future wecan consider repeating the epidural steroid injections to help relieve her lower extremity pain. She can continue Lidocaine patches as needed. I will add a low dose of Hydrocodone/Acetaminophen as needed. Nov,Sacroiliitis (ICD-10 - M46.1) Stable, start Hydrocodone/Acetaminophen as needed Nov,Lumbosacral spondylosis (ICD-10 - M47.817) Consider proceeding with a bilateral lumbar facet medial branch nerve blocks in the future if needed. Nov,Lumbar degenerative disc disease (ICD-10 - M51.36) Stable, follow up in 4 weeks. [employer] Other 06-02-2023 Evaluation note* Encounter Date Diagnosis Assessment Notes Treatment Notes Treatment Clinical Notes Sep, Lumbar radiculopathy (ICD-10 - M 54.16) 71 year old female here for follow [...] we can consider an SI joint injection vsa caudal epidural steroid injection. She can follow up in 1 month. Sep,Sacroiliitis (ICD-10 - M46.1) Patient currently has open areas to the bilateral lower extremties. once these are healed we can consider an SI joint injection if needed Sep,Lumbosacral spondylosis (ICD-10 - M47.817) Consider proceeding with a bilateral lumbar facet medial branch nerve blocks in the future if needed. [employer] Other 06-01-2023 History of Present illness Narrative* [...] 09/18/2022 10:58 AM Patient: Leelee Cedillo MR#: [id number] : 1950 Age: 71 y.o. Referring Physician: Sorin Dickerson DO Insurance: Payor: MEDICARE [employer] PPO / Plan: MEDICARE [employer] PPO / Product Type: *No Product type* [...] repair GALL BLADDER SURGERY 1999 BACK SURGERY [id number]- FOOT SURGERY [id number] Family History: Her family history is not [...] [x]cane, []bracing Are you followed by a consultant in ergonomics and safety? [] [x] Name: Are you followed by [...] 2011 rotator cuff repair GALL BLADDER SURGERY 1999 BACK SURGERY [id number]- FOOT SURGERY [id number] No family history on file. Social History [...] Rash Flagyl [Metronidazole] Dyspepsia documented in this [facility]04-09[facility]2023 Hospital Discharge instructions Patient Education 07/27/2022 15:20:26 [...] Follow these instructions at home: Medicines Take orkb-wtq-nvulxzm and prescription medicines only as told by [...] 04/06/2006 Document Revised: 07/29/2019 Document Reviewed: 02/23/2019 [employer] Patient Education 2020 [employer]. 07/27/2022 15:20:26 Vasovagal Syncope, Pediatric Vasovagal Syncope, [...] ?Squatting. ?Moving his or her legs. Give ihvx-kqw-jhautea and prescription medicines only as told by [...] 01/13/2009 Document Revised: 03/19/2018 Document Reviewed: 05/12/2017 [employer] Patient Education 2020 [employer]. Follow Up Care 07/26/2022 11:32:57 With:Sara Vick Address: [address] [place] [id number]- [facility] (1) When: Unknown Comments:Call for followup appointment 7-10 days With:Julio Ferrara MD, NEU Address: [address] [place] [phone]- When:2 to 4 weeks [facility]04-09-2023 Evaluation + Plan noteExtracted from: Title:Discharge NoteAuthor:Mil SALTEReDate:07/27/22 Discharge To, Anticipated II - Home with [...] With When Contact Information Sara Vick [address] [place] [address]- Business (1) Additional Instructions: Call for followup appointment 7-10 days Josias RUFF, CARLOS Thacker Within 2 to [address] [place] [phone]- Additional Instructions: Near-Syncope Vasovagal Syncope, Pediatric Extracted from:Title:Consult Note- NeurologyAuthor:Smita Ramos RN ADate: 07/27/22 ASSESSMENT: 1. Near syncope (not full syncope), seemingly vasovagal, with associated tremulousness (and nausea)or convulsive component. Triggered by act of bowel movement (Valsalva). Do not suspect cerebrovascular cause or seizure related cause. 2. CT head reveals a mall focal hypodensity of the left frontal white matter adjacent to the head of the caudate. This could represent a chronic ischemic infarction. Low suspicion that it is acute orsubacute. It might sheet turner to just be [...] dislocation of unspecified hip, initial encounter) Extracted from:Title:Admission H & PAuthor:LÁZARO TIAN, CharleneDate:07/26/22 PLAN: 1. Postural dizziness with presyncope (R42: [...] specified devices) recent right foot surgery in [place] w/podiatry secondary to non healing food wound. Currently haswound vac intact to this operative site. 6. Osteoarthritis (M19.90: Unspecified osteoarthritis, unspecified site) osteoarthritis status post left hip replacement Has chronic back pain. 7. Morbid obesity (E66.01: Morbid (severe) obesity due to excess calories) -BMI 70.73 -Laser Specialist on diet, exercise, weight loss and lifestyle [...] With Cult Reflex Vital Signs Weight Extracted from:Title:ED NoteAuthor:Davidson HAILEYYaritza NDate:07/26/22 1. Near syncope (R55: Syncop e and [...] of near syncopal event, Valium for concern forconvulsions and possible seizure-like activity, second episode. In [...] plan. Diagnostic Tests Pending * HgbA1c 07/27/22 [facility]01-13-2023 Evaluation note* Encounter Date Diagnosis Assessment Notes Treatment Notes Treatment Clinical Notes Apr, Lumbar radiculopathy (ICD-10 - M 54.16) 71 year old female here for follow [...] call the office if their pain returns. Apr,Sacroiliitis (ICD-10 - M46.1) Consider SI joint injection in the future if needed Apr,Lumbosacral spondylosis (ICD-10 - M47.817) Consider lumbar facet medial branch nerve blocks in the future if needed Apr,hronic pain (ICD-10 - G89.29) Follow up as needed. Apr,Lumbar degenerative disc disease (ICD-10 - M51.36) Continue with current treatment plan. Apr,OtherPatinet has an open sore on right ankle which she states she is [facility] up [facility]. I do not recommend futher injections until this is healed to prevent further infection or complication. Her pain appears to be stable at this time. She is encouraged to call the office if her pain increases in the future. [employer] Other 01-04-2023 NotePROCEDURE: XR FOOT RT MIN [...] Electronically authenticated by: JULIO LOBATO Date: 2022-04-23 13:00[facility]01-04-2023 NotePROCEDURE: XR FOOT RT MIN 3 [...] Electronically authenticated by: JULIO LOBATO Date: 2022-04-23 13:00[facility]12-12-2022 NotePROCEDURE: XR ANKLE RT MIN 3 [...] Electronically authenticated by: ALFRED UMAÑA Date: 2022-03-31 18:19[facility]11-19-2022 Hospital Discharge instructions Patient Education 03/08/2022 [...] 04/06/2006 Document Revised: 04/15/2017 Document Reviewed: 03/23/2017 [employer] Patient Education 2020 [employer]. 03/08/2022 17:44:27 Hip Dislocation Hip Dislocation Hip [...] Follow these instructions at home: Medicines Take qaov-zyy-aelkoag and prescription medicines only as told by your health care provider. Ask your health care provider if the medicine prescribed to you: ?Requires you to avoid driving or using heavy machinery. ?Can cause constipation. You may need to take actions to prevent or treat constipation, such as: ?Drink enough fluid to keep your urine pale yellow. ?Take rtvi-kgg-nsldele or prescription medicines. ?Eat foods that are [...] in the [place] Do not drive yourself [facility]. Summary Hip dislocation happens when the ball [...] 12/30/2001 Document Revised: 12/29/2018 Document Reviewed: 12/30/2018 [employer] Patient Education 2020 [employer]. Follow Up Care 03/08/2022 13:37:46 With:Sorin DICKERSON Address: [address] [place] [address] [address] [place] [address]- Business (1) When:03/11/2022 17:44:09 Comments:Call to establish follow-up care. Wear brace until follow-up with orthopedic surgery. With:Sara Vick Address: [address] [place] [address] [place] [address]- Business (1) When:03/11/2022 17:43:29 Comments:Call the office [...] you develop any new or worsening symptoms. [facility]11-19-2022 Evaluation + Plan noteExtracted from: Title:ED NoteAuthor:Wm Nagy DODate:03/08/22 Dislocation, hip (S73.006A: Unspecified dislocation of unspecified hip, initial encounter) Ordered: acetaminophen-hydrocodone, 1 tab(s), Oral, q4hr for pain, 12 tab(s), Refill(s) 0, [facility]/pharmacy #[id number], 172, cm, 03/08/22 [...] XR Hip 2-3 Views Left + Pelvis [facility]11-18-2022 Evaluation note* Encounter Date Diagnosis Assessment Notes Treatment Notes Treatment Clinical Notes Feb, Chronic pain (ICD-10 - G89.29) Follow up after procedure. Feb,Lumbar radiculopathy (ICD-10 - M54.16) 71 year old [...] procedure explained to patient; patient verbalizes understanding. Feb,Lumbar degenerative disc disease (ICD-10 - M51.36) Stable, proceed with treatment plan. Feb,Lumbosacral spondylosis (ICD-10 - M47.817) Consider lumbar facet medial branch nerve blocks in the future if needed Feb,acroiliitis (ICD-10 - M46.1) Consider SI joint injection in the future if needed Feb,therMedical decision making shows a new problem to me with further workup planned or suggested with thepotential for extensive treatment options that were considered with the most applicable given this patient's situation as noted above. Treatment options considered include a combination of physical th erapy approaches, pharmacologic management, and interventional procedures. Those most applicable tothe patient were discussed at this time. Risk [...] prolonged functional impairment requiring constant patient reassessment andhigh-level medical decision making. The amount and complexity of data reviewed is high given that patient labs, radiology reports, and other test were obtained, reviewed and summarized as applicable from the physician portal and/or outside medical records. Pertinent positive and negative findings were considered in medical decision-making. [employer] Other 06-20-2022 NotePROCEDURE: XR FOOT RT MIN [...] authenticated by: JULIO LOBATO Date: 2021-10-07 11:44[facility]Evaluation noteNo InformationNort Diffbot Other Evaluation noteNo assessment information available [facility] Work Phone: Evalumhwak note* Diagnosis Pain in prosthetic joint, sequela- [facility] Diagnosis Adjacent segment disease of lumbar spine with history of fusion procedure- Primary Chronic bilateral low back pain with bilateral sciatica [facility] Diagnosis 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) [facility] Diagnosis Chronic bilateral low back pain with bilateral sciatica [facility]* Diagnosis Onset Date Resolution Status Chronic pain acuteLumbar degenerative disc diseaseacuteLumbar radiculopathyacuteLumbosacral spondylosisacuteSacroiliitisacuteVaricose veins of bilateral lower extremities with painacuteChronic painacuteLumbar degenerative disc diseaseacuteLumbar radiculopathyacuteLumbosacral spondylosisacuteSacroiliitisacute [facility] Work Phone: Evaluation note* Diagnosis 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 [facility]* Diagnosis 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 Diagnosis Back pain, unspecified back location, unspecified back pain laterality, unspecified chronicity [facility]* Diagnosis Failed back surgical syndrome- Primary Other unspecified back disorder [facility] N[facility]ative - Reported* Type Description Date Medical History DJD-spine Medical HistoryHTNMedical HistoryHypothyroidismMedical HistoryRight leg neuropathy-unclear the etiologyMedical HistoryObesityMedical HistoryHerpes Medical HistoryHerniated disc w/ DJD of spineMedical HistoryCVIMedical History pseudomonas aeruginosaMedical Historyc diffSurgical Historycholecystectomy Surgical HistoryLeft hip etqrlvbgcms22/2013Surgical Historymulitple venous interventionsSurgical Historymulitple podiatric procedures on right footSurgical HistoryRotator cuff surgerySurgical HistorySclerotherapy right LE02/2013 Surgical HistorySclerotherapy right Surgical Historyright total knee camclvjzkvse1368Jkkkaoxo Historyback surgeries x5 [facility] [employer] Other History general Narrative - Reported* Type Description Date Medical History DJD-spine Medical HistoryHTNMedical HistoryHypothyroidismMedical HistoryRight leg neuropathy-unclear the etiologyMedical HistoryObesityMedical HistoryHerpes Medical HistoryHerniated disc w/ DJD of spineMedical HistoryCVIMedical History pseudomonas aeruginosaMedical Historyc diffSurgical Historycholecystectomy Surgical HistoryLeft hip tayhiukawcn47/2013Surgical Historymulitple venous interventionsSurgical Historymulitple podiatric procedures on right footSurgical HistoryRotator cuff surgerySurgical HistorySclerotherapy right LE02/2013 Surgical HistorySclerotherapy right LE02/2014Surgical Historyright total knee egckjoslhcrm9690Ttfsxvwg Historyback surgeries x5 [facility] 2019Hospitalization Historysee above [employer] Other History general Narrative - Reported* Type Description Date Medical History DJD-spine Medical HistoryHTNMedical HistoryHypothyroidismMedical HistoryRight leg neuropathy-unclear the etiologyMedical HistoryObesityMedical HistoryHerpes Medical HistoryHerniated disc w/ DJD of spineMedical HistoryCVIMedical History pseudomonas aeruginosaMedical Historyc diffSurgical Historycholecystectomy Surgical HistoryLeft hip fiwzrmlzijk66/2013Surgical Historymulitple venous interventionsSurgical Historymulitple podiatric procedures on right footSurgical HistoryRotator cuff surgerySurgical HistorySclerotherapy right LE02/2013 Surgical HistorySclerotherapy right LE02/2014Surgical Historyright total knee cgzjweedknzb0225Fgmiwuiw Historyback surgeries x5 [facility] 2019Surgical Historylazer surgery on her lt leg veins and she also had sclero tx on b/l [id number] Historysee above [employer] Other Hospital course Narrative No data available for this section [facility] No data available for this section [facility] General Surgery Ant[facility] Progress note No data available for this section [facility] for referral (narrative)* Diagnostic Procedure Only (Routine) - ClosedSpecialtyDiagnoses / ProceduresReferred By ContactReferred To ContactXR IMAGING Diagnoses Fusion of spine of thoracolumbar region Procedures XR SCOLIOSIS PA STAND/LAT 2V RADEX ENTIR THRC LMBR CRV SAC SPI W/SKULL 2/3 VW Ros Cedeño APRN.MANNEQUIN DECORATOR [address] [place] [address] Xr Imaging [place] [address] Referral IDStatusReasonStart DateExpiration DateVisits RequestedVisits [id number] Auto-Generated Referral * Diagnostic Procedure Only (Routine) - ClosedSpecialtyDiagnoses / Procedures Referred By ContactReferred To ContactXR IMAGING Diagnoses Fusion of spine of thoracolumbar region Procedures XR LUMBAR MOTION 4V AP/LAT/ FLEX/EXT RADEX SPINE LUMBOSACRAL MINIMUM 4 VIEWS Ros Cedeño APRN.MANNEQUIN DECORATOR [address] [place] [address] Xr Imaging [place] [address] Referral IDStatusReasonStart DateExpiration DateVisits RequestedVisits [id number] Auto-Generated Referral [facility] for referral (narrative)* Diagnostic Procedure Only (Routine) - ClosedSpecialtyDiagnoses / ProceduresReferred By ContactReferred To ContactMR IMAGING Diagnoses 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 Procedures MRI THORACIC SPINE WO IVCON MRI SPINAL CANAL THORACIC W/O CONTRAST Ghanshyam Parker MD [address] [place] [address] Mr Imaging [place] [address] Referral IDStatusReasonStart DateExpiration DateVisits RequestedVisits [id number] Auto-Generated Referral / [facility] for referral (narrative)No reason for referral information availableMary [facility] Work Phone: [facility] for visit Narrative* Diagnostic Procedure Only (Routine) - ClosedSpecialtyDiagnoses / ProceduresReferred By ContactReferred To ContactXR IMAGING Diagnoses Fusion of spine of thoracolumbar region Procedures XR SCOLIOSIS PA STAND/LAT 2V RADEX ENTIR THRC LMBR CRV SAC SPI W/SKULL 2/3 VW Ros Cedeño, VP SCIENTIFIC AFFAIRS.MANNEQUIN DECORATOR [address] [place] [address] Xr Imaging [place] [address] Referral IDStatusReasonHalsey DateExpiration DateVisits RequestedVisits [id number] Auto-Generated Referral / [facility] for visit Narrative* Diagnostic X-Ray (Routine) - Closed SpecialtyDiagnoses / ProceduresReferred By ContactReferred To ContactRadiology Diagnoses Back pain, unspecified back location, unspecified back pain laterality, unspecified chronicity Procedures CT NEURO IMAGE IMPORT(ROSCOE) DOWNLOAD POWERSHARE IMAGES TO Marry Alegria MD [facility] [place] [address] Phone: tel: fax: [facility] DIAGNOSTIC RADIOLOGY [address] [place] [address] Phone: tel: Referral IDStatusReasonStsturtevant DateExpiration DateVisits RequestedVisits [id number]/16/20259/16/202611 [facility] Advance Directives No Advanced Directives [...] Date/T jessica father Pulmonary emphysema Unknown Not SpecifiedMalignant neoplasm of breastUnknownbrotherDiabetes mellitusUnknown Relationship Condition Age at Onset Recorded Date/T jessica father Pulmonary emphysema Unknown Not SpecifiedMalignant neoplasm of breastUnknownbrotherDiabetes mellitusUnknown fatherDeceasedUnknownfamily memberFamily history of other conditionUnknown DeceasedUnknownMalignant neoplasmUnknown Relationship Condition Age at Onset Recorded Date/T jessica father Pulmonary emphysema Unknown motherMalignant neoplasm of breastUnknownbrotherDiabetes mellitusUnknownfather DeceasedUnknownfamily memberFamily history of other conditionUnknownDeceased UnknownMalignant neoplasmUnknown Chief Complaint and Reason for Visit Chief [...] P[place]'S, [place] [facility] [place] [facility] [place] CHRONIC PAINReason for VisitChronic pain Lumbar degenerative disc disease Lumbar radiculopathy Lumbosacral spondylosis Sacroiliitis Varicose veins of bilateral lower extremities with pain Chronic pain Lumbar degenerative disc disease Lumbar radiculopathy Lumbosacral spondylosis Sacroiliitis Chief Complaint Admit Date Unknown December 09, 2024 11 :22am Assessments No Assessments Information AvailableNo Assessments Information Available Reason for Referral SpecialtyDiagnoses / ProceduresReferred By ContactReferred To ContactCT IMAGING Diagnoses Chronic bilateral low back pain with bilateral sciatica Procedures CT LUMBAR SPINE WO IVCON CT LUMBAR SPINE W/O CONTRAST MATERIAL Ghanshyam Lombardi MD [address] [place] [address] [place] [address] Referral IDStatusReasonStart DateExpiration DateVisits RequestedVisits [id number] Review Auto-Generated Referral /[id number] / ProceduresReferred By ContactReferred To ContactMR IMAGING Diagnoses 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 Procedures MRI THORACIC SPINE WO IVCON MRI SPINAL CANAL THORACIC W/O CONTRAST Ghanshyam Parker MD [address] [place] [address] Mr Imaging [place] [address] Referral IDStatusReasonStsturtevant DateExpiration DateVisits RequestedVisits [id number] Review Auto-Generated Referral /[id number] / ProceduresReferred By ContactReferred To Contact Diagnoses Pain in prosthetic joint, sequela Procedures XR HIP WITH PELVIS LEFT Perfecto Burch MD [address] [place] [phone] Referral IDStatusReasonStart DateExpiration DateVisits RequestedVisits [id number] Request/[id number] / Procedures Referred By ContactReferred To Contact Diagnoses Pain in prosthetic joint, sequela Procedures XR KNEE LEFT 3 VIEWS Perfecto Burch MD [address] [place] [address] Referral IDStatusReasonStart DateExpiration DateVisits RequestedVisits [id number] Request Additional Source Comments INFORMATION SOURCE (unrecogn ized section and content) DATE CREATED AUTHOR 12/13/2017 [facility] DATE CREATED AUTHOR AUTHOR'S ORGANIZ ATION 07/10/2018 [facility] DATE CREATED AUTHOR AUTHOR'S ORGANIZ ATION 02/25/2019 [facility] DATE CREATED AUTHOR AUTHOR'S ORGANIZ ATION 03/01/2022 [facility] [employer] DATE CREATED AUTHOR AUTHOR'S ORGANIZ ATION 07/26/2022 [facility] DATE CREATED AUTHOR AUTHOR'S ORGANIZ ATION 09/27/2022 [facility] DATE CREATED AUTHOR AUTHOR'S ORGANIZ ATION 09/27/2022 [facility] DATE CREATED AUTHOR AUTHOR'S ORGANIZ ATION 11/05/2023 [facility] DATE CREATED AUTHOR AUTHOR'S ORGANIZ ATION 12/11/2024 [facility] DATE CREATED AUTHOR AUTHOR'S ORGANIZ ATION 01/29/2025 [facility] [employer] [facility] DATE CREATED AUTHOR AUTHOR'S ORGANIZ ATION 02/06/2025 [facility] DATE CREATED AUTHOR AUTHOR'S ORGANIZ ATION 02/15/2025 [facility] REASON FOR VISIT (unrecogniz ed section and content) SpecialtyDiagnoses / ProceduresReferred By ContactReferred To Contact Diagnoses Pain in prosthetic joint, sequela Procedures XR HIP WITH PELVIS LEFT Perfecto Burch MD [address] [place] [phone] Referral IDStatusReasonHalsey DateExpiration DateVisits RequestedVisits [id number] Request/[id number] Patient ReasonCommentsNew PatientSpecialtyDiagnoses / ProceduresReferred By Contact Referred To ContactCT IMAGING Diagnoses Chronic bilateral low back pain with bilateral sciatica Procedures CT LUMBAR SPINE WO IVCON CT LUMBAR SPINE W/O CONTRAST MATERIAL Ghanshyam oLmbardi MD [address] [place] [address] [place] [address] Referral IDStatusReasonStsturtevant DateExpiration DateVisits RequestedVisits [id number] Auto-Generated Referral /[id number] / ProceduresReferred By ContactReferred To ContactRadiology / RADIO MRI MAIN Q Diagnoses Other intervertebral disc degeneration, lumbar region Arthrodesis status Lumbago with sciatica, left side Lumbago with sciatica, right side Other chronic pain MRI Thoracic WO IVCON MRI THORACIC SPINE WO IVCON Procedures MRI SPINAL CANAL THORACIC W/O CONTRAST MATRL MRI WO CARLOS SEMAC A17 300 Ghanshyam Lombardi MD [address] [place] [address] [address] [facility] [address] [place] [phone] Referral IDStatusReasonStart DateExpiration DateVisits RequestedVisits [id number]/[id number]/[id number] Pain Numbness/tinglingSpecialtyDiagnoses / ProceduresReferred By ContactReferred To Contact Diagnoses 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, unspecified laterality Lumbar postlaminectomy syndrome Procedures LVL 4 NEW PT, MODERATE MDM, MINIMUM OF 45 MINUTES LVL 4 EST PT, MODERATE MDM, MINIMUM OF 30 MINUTES Sara Vick MD [address] [place] [address] Phone: tel: fax: Referral IDStatusReasonStart DateExpiration DateVisits RequestedVisits [id number] Review Consultation-[facility] Patient Care team informatio n (unrecognized section and content) Team Status: Active Member Role Status Freeman Vick MD Primary Care Provider Active Team Status: Inactive Member Role Status Freeman Vick MD Primary Care Provider, Attending Pr ovider Active Team MemberRelationshipSpecialtyStart DateEnd Date Sara Vick MD [address] [place] [address] PCP - GeneralFamily Vtupdrhy90/21/22Team MemberRelationshipSpecialtyStart Date End Date Sara Vick MD [address] [place] [address] PCP - GeneralFamily Ysyoehla98/21/22 Team Status: Inactive Member Role Status Freeman Vick MD Primary Care Provider Active Larry Brown MDAttcommunity health ProviderActive Team Status: Inactive Member Role Status Freeman Brown MD Attending Provider Active Sta rt: March 06, 2023 End: March 06, 2023 Team Status: Inactive Member Role Status Freeman Vick MD Primary Care Provider Active Start: March 25, 2023 End: March 25, 2023Edgar Shoemaker ProviderActiveStart: March 25, 2023 End: March 25, 2023 Team Status: Inactive Member Role Status Dates Larry Brown MD Attending Provider Active Sta rt: April 03, 2023 End: April 03, 2023 Team Status: Active Member Role Status Dates Sara Vick MD Primary Care Provider Active Start: May 20, 2023 TRINI Voss-Bob ProviderActiveStart: May 20, 2023 Team Status: Inactive Member Role Status Dates Sara Vick MD Primary Care Provider Active Start: May 22, 2023 End: May 22, 2023MaEdgar Larkin ProviderActiveStart: May 22, 2023 End: May 22, 2023Team MemberRelationshipSpecialtyStart DateEnd Date Sara Vick MD PCP - [facility] Medicine06/09/11Team MemberRelationshipSpecialtyStart DateEnd Date Sara Vick MD PCP - [facility] Medicine06/09/11Team MemberRelationshipSpecialtyStart DateEnd Date Sara Vick MD PCP - [facility] Medicine06/09/11 Team Status: Inactive Member Role Status Dates [...] Start: May 20, 2023 End: May 20, 2023Whit Voss ProviderActiveStart: May 20, 2023 End: May 20, 2023 Team Status: Inactive Member Role Status Dates Sara Vick MD Primary Care Provider Active Start: June 30, 2023 End: June 29Massiel Garza ProviderActiveStart: June 30, 2023 End: June 30, 2023 Team Status: Inactive Member Role Status Freeman Vick MD Primary Care Provider Active Start: July 01, 2023 End: July 01, 2023Edgar James ProviderActiveStart: July 01, 2023 End: July 01, 2023 Team Status: Inactive Member Role Status Freeman Vick MD Primary Care Provider Active Start: August 07, 2023 End: August 07, 2023Edgar Shoemaker ProviderActiveStart: August 07, 2023 End: August 07, 2023 Team Status: Inactive Member Role Status Freeman Vick MD Primary Care Provider Active Start: December 09, 2024 End: December 09, 2024DoEdgar Tapia ProviderActiveStart: December 09, 2024 End: December 09, 2024Team MemberRelationshipSpecialtyStart DateEnd Date Marry Mathew MD [address] [place] [address] PhysicianOrthopaedic Urktxng00/4/25 Goals (unrecognized section and content) Goals may be documented in a n alternate section Source Comments (unrecognize d section and content) In the event this informatio n is protected by the Federal Confidentiality of Alcohol and Drug Abuse Patient Records regulations: The Federal rules restrict any use of the information to criminally investigate or prosecute any alcohol or drug abuse patient.[facility] CampusIn the event this information is protected by the Federal Confidentiality of Alcohol and Drug Abuse Patient Records regulations: The Federal rules restrict any use of the information to criminally investigate or prosecute any alcohol or drug abuse patient.[facility] CampusIn the event this information is protected by the Federal Confidentiality of Alcohol and Drug Abuse Patient Records regulations: The Federal rules restrict any use of the information to criminally investigate or prosecute any alcohol or drug abuse patient.[facility] CampusIn the event this information is protected by the Federal Confidentiality of Alcohol and Drug Abuse Patient Records regulations: The Federal rules restrict any use of the information to criminally investigate or prosecute any alcohol or drug abuse patient.[facility] FOR RECORDS PERTAINING TO PATIENTS WHO [...] THE PRIMARY CLINICAL RECORDS. [facility]. provides no warranty or guarantee of the accuracy or completeness of information in this document.
== END 2025-02-16 10:20 | disposition home or self-care (01) ==
LOC: RAD 10:19
PROVIDERS: PCP Family Medicine; Visit Provider Family Medicine
DX: E28.39 Other primary ovarian failure (principal); M81.0 Age-related osteoporosis without current pathological fracture; M85.88 Other specified disorders of bone density and structure, other site
CPT/HCPCS: 77080

== ENCOUNTER 2025-02-28 09:44 | Outpatient (OUT) | payer MEDICARE, SELFPAY ==
--- OUTSIDE RECORDS SUMMARY | 2025-02-28 09:47 | XMS_ITS | Clinical Summary ---
Author Organization [employer] s tem Address [id number] [place] [address] Care Team Providers Care Flume Worker Name Role Phone Unavailable Primary Care Provider Unavailabl e Allergies Active AllergyReactionsCriticalityNoted DateCommentsMetronidazoleNausea And PbgibwvuXokzrs98/01/2023Sulfa (Sulfonamide Antibiotics)07/16/2006 Other Reaction(s): Rash IlcqftyozwbdyMfyaFmai64/01/2023 Medications MedicationSigDispense QuantityRefillsLast FilledStart DateEnd DateStatus losartan [...] Tobacco: Never Tobacco Cessation:Counseling Given: No ChildcareAnswerDate DekqbwszTixjmivytKtbhbcw25/12/2019EmploymentAnswerDate JlxficzkHaymwckdvdMtlcmgt93/12/2019Hunger ScreeningAnswerDate RecordedWithin the past 12 months we worried whether our food would run out before we got money to buy more.Never True12/11/2022Within the past 12 months the food we bought just didn't last and we didn't have money to get more.Never True12/11/2022 CommentsUnknownSex and Gender InformationValueDate RecordedSex Assigned at Not on fileLegal PxxRtyeyv37/06/2015 12:12 PM EDTGender IdentityNot on file Sexual OrientationNot on file Last Filed Vital Signs Vital SignReadingTime TakenCommentsBlood Wdnbkbej165/8112/11/2022 11:57 AM EDT Vbvvo69896/24/2023 11:57 AM EDTTemperature--Respiratory Rate--Oxygen Saturation- -Inhaled Oxygen Concentration--Jjhdqk40.4 kg (201 lb 6.4 oz)12/11/2022 11:55 AM MHYZcceep320 cm (5' 8.5 )12/11/2022 11:55 AM EDTBody Mass Index30.1808 11:55 AM EDT Plan of Treatment Health MaintenanceDue DateLast DoneCommentsDepression Cagxxihnf53/02/1964Tobacco Idjbtvddg50/02/1964DTaP,Tdap and Td Vaccines (1 - Tdap)12/20/1970Zoster (Shingles) Vaccine (1 of 2)12/20/2001Fall Risk Hhaphsbgf70/02/2017Adult BMI Xumlybgmf15OVID-19 Vaccine (5 - season)2024 12/03/2021, 03/25/2021, 07/12/2020, Additional history existsInfluenza Vaccine , 02/08/2020, 02/23/2018, Additional history existsRSV ( or age 60+ yrs) (1 - 1-dose 75+ series)12/20/2026 Medical Devices Not on file Insurance
--- OUTSIDE RECORDS SUMMARY | 2025-02-28 09:47 | XMS_ITS | Clinical Summary ---
Author Organization [facility] Address [address] [place] [address] Care Team Providers Care Artillery Meteorological Man Name Role Phone Leander Carrizales MD Primary Care Provider [phone] Allergies Active AllergyReactionsCriticalityNoted DateCommentsMetronidazoleDyspepsiaMedium 09/18/20227594PlkfgmqvgtqvzPdysUfjr84/01/2023 Medications MedicationSigDispense QuantityRefillsLast FilledStart DateEnd DateStatus alendronate 70 MG tablet 07/08/2022ctive Cholecalciferol 50 MCG (1999) capsule 1 capsule.Active furOSEmide 20 MG tablet 1 tablet Orally Once a day as needed for 30 daysActive Levothyroxine 125 MCG tablet 1 tablet in the morning on an empty stomach Orally Once a day for 30 day(s) Active losartan 100 MG tablet 1 tablet Orally Once a day for 30 day(s)Active Meloxicam 15 MG tablet 1 tablet Orally Once a day for 30 day(s)Active Pantoprazole [address] tablet DR 1 tablet Orally Once a day for 30 day(s)Active tizanidine 4 MG capsule Take 1 capsule by mouth.Active gabapentin 600 MG tablet Take 1 tablet by mouth 2 times daily.Active Social History Tobacco UseTypesPacks/DayYears UsedDateSmoking Tobacco: NeverSmokeless Tobacco: Never Tobacco Cessation:Counseling Given: Not Answered Alcohol UseStandard Drinks/WeekCommentsYes0 (1 standard drink = 0.6 oz pure alcohol)occasionalCommentsUnknownSex and Gender InformationValueDate RecordedSex Assigned at BirthNot on fileLegal VpmOrwjrq35/01/2022 1:36 PM EST Gender PdkbqebwFhdowx08/10/2023 11:40 AM EDTSexual OrientationChoose not to kpyqxvxf48/10/2023 11:40 AM EDT Last Filed Vital Signs Vital SignReadingTime TakenCommentsBlood Pressure--Pulse--Rdzfduvvzea93.8 ??C (96.4 ??F)09/18/2022 10:40 AM EDTRespiratory Rate--Oxygen Saturation--Inhaled Oxygen Concentration--Ipgsdb22.3 kg (205 lb 9.6 oz)09/18/2022 10:40 AM EDTHeight 172.7 cm (5' 8 )09/18/2022 10:40 AM EDTBody Mass Index31.26009/18/2022 10:40 AM EDT Plan of Treatment Health MaintenanceDue DateLast DoneCommentsDEXA SCAN ELTURODZEO24/02/1951 HEPATITIS C VIRUS ZTQXOREFP59/02/3125BWZMUUKHX66/02/7854HVWUFNF42/02/1952TSH 1951TDAP (ADULT)12/20/1970CERVICAL CANCER SCREENING JKUNABFAAB88/02/1973 LIPID KHFCSUPPW79/02/1992COLORECTAL CANCER SCREENING QQFNXXZWKS13/02/1997ZOSTER (SHINGLES) VACCINE (1 of 2)12/20/2001MAMMOGRAM SCREENING KFHDQUDXGY40/10/2023 02/27/2022, 01/29/2021, 11/24/2019, Additional history existsCOVID-19 VACCINE ( season)508/, 03/25/2021, 07/12/2020, Additional history existsINFLUENZA VACCINE (#1)0/, 02/08/2020, 02/23/2018, Additional history existsRSV VACCINE (1 - 1-dose 75+ series) 12/20/2026PNEUMOCOCCAL VACCINE GIAAAPOdarzzdiv56/07/2017, 02/05/2017HEP B VACCINEAged OutNo longer eligible based on patient's age to complete this topic Insurance Care Teams Team MemberRelationshipSpecialtyStart DateEnd Leander Carrizales MD PCP - GeneralFamily Bnjuxozo00/21/22
--- OUTSIDE RECORDS SUMMARY | 2025-02-28 09:47 | XMS_ITS | Clinical Summary ---
Author Organization [facility] Address [address] [place], [place] [address] Care Team Providers Care Truck Sales Manager Name Role Phone Leander Carrizales MD Primary Care Provider [phone] Allergies Active AllergyReactionsCriticalityNoted DateCommentsSulfa (Sulfonamide Antibiotics)07/16/2006 Medications MedicationSigDispense QuantityRefillsLast FilledStart DateEnd DateStatus losartan 100 mg ORAL tablet Take 1 tablet by mouth once daily.ctive levothyroxine (SYNTHROID) 125 mcg tablet Take 1 tablet by mouth once daily. [address] (PROTONIX) 40 mg tablet Take 40 mg by mouth once daily.Active gabapentin (NEURONTIN) 600 mg tablet Take 600 mg by mouth twice daily.Active diclofenac, EC, (VOLTAREN) 75 mg EC tablet Take 75 mg by mouth twice daily.Active tiZANidine HCl 4 mg capsule Take 4 mg by mouth daily at bedtime.Active Active Problems ProblemNoted DateDiagnosed DateUnspecified essential cfgiolzukjol83/20/2017 Overview (01/07/2017): Essential hypertension Fracture closed, fibula, shaft01/07/2017 Overview (01/07/2017): and ankle. 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 Other specified acquired nwlnatzzqskkpg22/29/3833Qrfetgh79/29/2012Hair loss 06/18/2011 Family History Medical HistoryRelationCommentsDiabetesBrother 1HypertensionBrother 1Diabetes Brother 2NoneBrother 3Brain aneurysmDaughter 1died age 27NoneDaughter 2COPD Fatherdied age 75Breast CancerMotherdied age 52RelationStatusCommentsBrother 1 Brother 2Brother 3Daughter 1Daughter 2FatherMother Social History Tobacco UseTypesPacks/DayYears UsedDateSmoking Tobacco: Never Tobacco Cessation:Counseling Given: Not Answered Alcohol UseStandard Drinks/WeekCommentsYes6 (1 standard drink = 0.6 oz pure alcohol)Area Deprivation IndexAnswerDate RecordedNational Score (1-100), lower number is lower rhbd561906/24/2023State Score (1-10), lower number is lower risk4 06/24/2023ata from: https://www.neighborhoodatlas.medicine.[facility].edu/. Last address used for [address]4CommentsNoSex and Gender InformationValueDate RecordedSex Assigned at BirthNot on fileLegal Sex Caizov3503/21/2012 9:39 AM ESTGender IdentityNot on fileSexual OrientationNot on fileOccupationIndustryJob Start DateJob End DateLABOR/retiredNot on fileNot on fileNot on filegoodwill PT presentlyNot on fileNot on fileNot on file Last Filed Vital Signs Vital SignReadingTime TakenCommentsBlood Abgbtdzi238/5603 1:13 PM EST Jhatx513706/24/2023 1:13 PM ESTTemperature--Respiratory Dwpk368906/24/2023 1:13 PM ESTOxygen Axanapxoxq00%06/24/2023 1:13 PM ESTInhaled Oxygen Concentration-- Xnrmkh02.4 kg (192 lb 10.9 oz)06/24/2023 1:13 PM EWXTmkcez306.7 cm (5' 8 ) 06/24/2023 1:13 PM ESTBody Mass Index29.303 1:13 PM EST Plan of Treatment Health MaintenanceDue DateLast DoneCommentsAnnual PCP Team Chronic Disease Visit 12/20/1969Anxiety Xbtsyncze45/02/1970Depression Oclhaqalv57/02/1970DTaP,Tdap,Td Vaccine (1 - Tdap)12/20/1970CT Aqgbztcffxzd21/02/1997Cologuard (FIT-DNA) 12/20/19962049Hwkltxitevp11/02/1997Colorectal Cancer Etydoypai50/02/1997Fecal Occult Blood12/20/1996Lipid Tmhzvxsbv04/02/2102Dmpxlytnfebvk14/02/1997Shingrix Vaccine (1 of 2)12/20/2001Diabetes Xzcfgkxhg29/28/one Density Screening 12/20/2016Advance Directive Qqktskwmet55/01/2025Medicare Advantage Annual Wellness Visit04/20/2024Mammogram Tnyzcpkda96/17/901983/, 08/05/2023, 02/28/2022, Additional history existsCovid-19 Vaccine (2024- season) 508/, 03/25/2021, 07/12/2020, Additional history existsInfluenza Vaccine (#1)0/, 02/08/2020, 02/23/2018, Additional history existsRSV Vaccine (1 - 1-dose 75+ series)12/20/2026Hepatitis C Screening Xxetdieks32/13/2012Pneumococcal Vaccine: 50+Dgswllkjo56/01/2018, 04/19/2017, 02/24/2017, Additional history exists Procedures Procedure NamePriorityDate/TimeAssociated DiagnosisCommentsHEP REMOTE PANEL BL Dugdwyz5007/01/2011 12:59 PM EDT Uveitis, history COMPREHENSIVE METABOLIC GPYPQGvakbsm59/29/2012 1:49 PM EST Memory changes from Last 3 Months or Most Recently Relevant to Health Maintenance Results * HEP REMOTE PANEL BL (07/01/2011 12:59 PM EDT)ComponentValueRef RangeTest MethodAnalysis TimePerformed AtPathologist SignatureHep B Core Ab, Total NegativeNEGATCSUMMA HEALTH MAIN LABORATORYHep C Antibody IANegativeNEGAT [facility] LABORATORYHBsAgNegativeNEGATCGREEN [facility]OSS [facility]ITAL LABORATORYHep B Surface Ab, QualNegativeNEGATCSUMMA HEALTH MAIN LABORATORY Comment: ? A negative Hepatitis B Surface Antibody is indicative of: 1)no prior exposure to HBV, 2)lack of antibody response to an acute or chronic HBV infection, 3)lack of antibody response to HBV vaccination, or, 4)loss of immunity that followed either vaccination or infection. Specimen (Source)Anatomical Location / LateralityCollection Method / Volume Collection TimeReceived TimeBlood specimen (specimen)BLOOD SPECIMEN / Unknown 07/01/2011 12:59 PM EDT07/01/2011 1:22 PM EDT Narrative Authorizing ProviderResult TypeResult StatusFemercedes Renae MDLABORATORYFinal ResultPerforming OrganizationAddressCity/State/ZIP CodePhone Number [facility] [address] [facility] [place] [address] * COMP METABOLIC PANEL (06/18/2011 1:49 PM EST)ComponentValueRef RangeTest MethodAnalysis TimePerformed AtPathologist SignatureProtein, Total7.46.0 - 8.4 g/dLMERCY HOSPITAL LABORATORYAlbumin4.13.5 - 5.0 g/dLMERCY HOSPITAL LABORATORYCalcium9.48.5 - 10.5 mg/dLMERCY HOSPITAL LAB[facility]AT[facility] Bilirubin, Total0.20.0 - 1.5 mg/dLMERCY HOSPITAL LABORATORYAlkaline Ekqnmqwnzzs4399 - 150 U/LCGREEN CROSS [facility]PITAL WKACBIUZYCICR998 - 40 U/L [facility] NVPPCSYSWKFfslhbd1140 - 100 mg/dLMER[facility] MNOUYOCDNDCTQ094 - 25 mg/dLMER[facility]OS[facility]ITAL LABORATORYCreatinine0.800.70 - 1.40 mg/dLMER[facility] EURXMGISGMEmmrgg367567 - 148 mmol/LCGREEN CROSS HOSPITAL LABORATORYPotassium3.93.5 - 5.0 mmol/LCGREEN CROSS [facility] UEXQENOSKKFluhnadd20995 - 110 mmol/LCSUMMA HEALTH MAIN LDBEDHZIKNSU84980 - 32 mmol/LCSUMMA HEALTH MAIN LABORATORYAnion Gap90 - 15 mmol/LCSUMMA HEALTH MAIN RBMQGXBTPUOEO411 - 45 U/LCSUMMA HEALTH MAIN LABORATORYeGFR- >60CLE[facility] LABORATORYeGFR-All Other Races>60. [facility] LABORATORYComment: eGFR (Estimated GFR) Units of measure: mL/min/1.73 meters squared eGFR is derived from the reexpressed MDRD Study equation using the following parameters: serum creatinine, age, gender and race. The creatinine assay has been calibrated to be traceable to IDMS. An eGFR <60 mL/min/1.73m2 for >3 months is consistent with chronic kidney disease. Refer to KDOQI guidelines for clinical interpretation. Specimen (Source)Anatomical Location / LateralityCollection Method / Volume Collection TimeReceived TimeBlood specimen (specimen)BLOOD SPECIMEN / Unknown 06/18/2011 1:49 PM EST06/18/2011 2:03 PM EST Narrative Authorizing ProviderResult TypeResult StatusPatricio R AycinenaLABORATORYFinal ResultPerforming OrganizationAddressCity/State/ZIP CodePhone Number [facility] [address] [place] [address] from Last 3 Months or Most Recently Relevant to Health Maintenance Insurance Care Teams Team MemberRelationshipSpecialtyStart DateEnd Leander Carrizales MD PCP - GeneralFamily Medicine06/09/11
--- OUTSIDE RECORDS SUMMARY | 2025-02-28 09:47 | XMS_ITS | Clinical Summary ---
Author Organization [facility] Address [address] [place] [address] Phone Care Team Providers Care Field Hockey Coach Name Role Phone Leander Carrizales MD Primary Care Provider [phone] Social History Tobacco UseTypesPacks/DayYears UsedDateSmoking Tobacco: Never Assessed CommentsUnknownSex and Gender InformationValueDate RecordedSex Assigned at Not on fileLegal WdgWgpxwi93/25/2022 3:27 PM ESTGender IdentityNot on fileSexual OrientationNot on file Plan of Treatment Not on file Care Teams Team MemberRelationshipSpecialtyStart DateEnd Date Leander Carrizales MD [address] [facility] [place] [address] PCP - [facility]09/22/18
--- OUTSIDE RECORDS SUMMARY | 2025-02-28 09:47 | XMS_ITS | Clinical Summary ---
Author Organization [facility] Address [address] [facility] [place] [address] Care Team Providers Care Diabetologist Name Role Phone Jatinder Mercado MD Unavailable [phone] Source Comments The following information is NOT included in Care Everywhere downloads:Psychiatric notes, ECG results, Cardiac Rehab notes, Pulmonary Function notes, data from [employer] (includes but not limited toPregnancy data,audiograms, eye exams, pre-surgical evaluation notes, well-child exam data).[facility] Allergies Active AllergyReactionsCriticalityNoted PiwrIizpdgevLaggrkknyzbaa38/07/2025Sulfa Xeazdmlicey31/07/2025 Medications MedicationSigDispense QuantityRefillsLast FilledStart DateEnd DateStatus losartan [...] MG TBEF Take by mouth.Active Encounters DateTypeDepartmentCare FuvtPleomlgzloc31/07/2025 11:30 AM EDTOffice Visit [facility] Orth[facility] Spine [address] [place] [id number] Jatinder Mercado MD Failed back surgical syndrome (Primary Dx)01/03/2025 1:40 PM EDT - 01/03/2025 11:59 PM EDTHospital Encounter [facility] Radiology [address] [place] [address] Back pain, unspecified back location, unspecified back pain laterality, unspecified chronicity Discharge Disposition: HOV Ydmdmfgrj64/16/2025Orders Only [facility] Orthopedic Spine [address] [place] [phone] Jatinder Mercado MD 12/29/2024Transcribe Orders [facility] Physician Referral Service [address] [place] [phone] Leander Carrizales MD from Last 3 Months Immunizations ImmunizationAdministration DatesNext DueInfluenza, Injectable, MDCK, Quadrivalent, Preservative Free (EEQ=456)02/11/2022Influenza, Injectable, Trivalent, Adjuvanted, Preservative Free (LBM=436)02/08/2020Influenza, injectable, high dose seasonal, trivalent, preservative free (ZYE=587)02/05/2017 Influenza, injectable, trivalent, preservative free (LFI=450)02/02/2016 Pneumococcal conjugate 13 valent (PCV13) (CMD=989)02/05/2017TST, unspecified formulation (CVX=98)06/18/2017 Social History Tobacco UseTypesPacks/DayYears UsedDateSmoking Tobacco: Never Assessed CommentsUnknownSex and Gender InformationValueDate RecordedSex Assigned at Not on fileLegal UqwLxqpzf51/11/2025 3:05 PM EDTGender IdentityNot on fileSexual OrientationNot on file Plan of Treatment Health MaintenanceDue DateLast YgsvTksobyqsUsubiuvsuxh60/02/1951Hepatitis C Islnkaej66/02/1970Tdap Hgzsbws6112/20/1969Hepatitis A (HAV) Vaccine (optional start 19+ years)12/20/1970CRC Iyjkulhyr49/02/1997Cologuard (Stool DNA)12/20/1996 FIT12/20/1996Shingles (RZV) Vaccine (1 of 2)12/20/2001Hepatitis B (HBV) Vaccine (optional start 60+ years)2011one Zrzeunoxlwwb78/02/2017Pneumococcal Vaccine(s) (50+ yrs) (2 of 2 - PPSV23)Mammography08/04/2024 08/05/2023, 02/28/2022, 02/26/2021, Additional history existsCOVID-19 Vaccine (2024- season)/, 03/25/2021, 07/12/2020, Additional history existsInfluenza Vaccine (#1), 02/08/2020, 02/05/2017, Additional history existsWelcome to Medicare Visit (G0402)12/19/2024 RSV vaccine (adult) (1 - 1-dose 75+ series)12/20/20269538Snahfdowmia00/25/2030 10/12/2024Pap SmearDiscontinued Procedures Procedure NamePriorityDate/TimeAssociated DiagnosisCommentsMR NEURO IMAGE IMPORT Ujkiaks7701/03/2025 3:01 PM EDT Back pain, unspecified back location, unspecified back pain laterality, unspecified chronicity CT NEURO IMAGE YVGRTJYmqajze00/16/2025 3:00 PM EDT Back pain, unspecified back location, unspecified back pain laterality, unspecified chronicity XRAY HEAD/SPINE IMAGE FAGFFGOlvbgyu92/16/2025 3:00 PM EDT Back pain, unspecified back location, unspecified back pain laterality, unspecified chronicity XRAY HEAD/SPINE IMAGE ZPDCMBValmbww29/16/2025 3:00 PM EDT Back pain, unspecified back [...] X-RAYFinal Result from Last 3 Months [place] [facility] Address: [address] [phone] Care Teams Team MemberRelationshipSpecialtyStart DateEnd Jatinder Mercado MD [address] [place], [place] [id number] PhysicianOrthopaedic Abrrwdc40/4/25
--- OUTSIDE RECORDS SUMMARY | 2025-02-28 09:47 | XMS_ITS | Clinical Summary ---
Author Organization [facility] Address [address] [place] [address] Care Team Providers Care Field Hauler Name Role Phone Leander Carrizales MD Primary Care Provider [phone] Allergies Active AllergyReactionsCriticalityNoted DateCommentsMetronidazoleOther,GI sidpogwqodeUynwzc76/01/2023Sulfa UoteyigxznbMfhnPgy49/29/2007 Other Reaction(s): Rash CxmkcvavwgsifBzqiQrrp21/01/2023 Medications MedicationSigDispense QuantityRefillsLast FilledStart DateEnd DateStatus alendronate [...] cholecalciferol 25 MCG (1000 UT) capsule Vitamin P8Nrkrov cyanocobalamin (Vitamin B-12) 100 MCG tablet Vitamin O37Avdzno Accu-Chek Guide test strip 07/02/2022ctive HYDROcodone-acetaminophen ([place]) 5-325 MG tablet TAKE 1 TABLET BY MOUTH ONCE DAILY MUPKIH0405/27/2023ctive Accu-Chek FastClix Lancets misc 04/30/2023ctive levoFLOXacin (Levaquin) [...] (two) times a day as needed for qnjsyqfpdqux45/06/2023 Active B-D 3CC LUER-OMAR SYR 22GX1 22G X 1 3 ML misc USE TO INJECT VITAMIN B-12 SRHKGPJ4504/10/2023ctive Encounters DateTypeDepartmentCare TybnUtjppeyoifu40/15/2025 10:30 AM EDTAncillary Procedure [facility] [address] [place] [address] Encounter for other screening for malignant neoplasm of rtwnld4402/01/2025Travel 01/31/20253604Iyrgvm44/21/2025Travelfrom Last 3 Months Family History Medical HistoryRelationNameCommentsEmphysemaFatherCancerMotherRelationNameStatus CommentsFatherMother Social History Tobacco UseTypesPacks/DayYears UsedDateSmoking Tobacco: NeverSmokeless Tobacco: Never Tobacco Cessation:Counseling Given: Not Answered Alcohol UseStandard Drinks/WeekCommentsYes1 (1 standard drink = 0.6 oz pure alcohol)CommentsNoSex and Gender InformationValueDate RecordedSex Assigned at BirthNot on fileLegal ZsiShgpts15/15/2023 6:58 PM EDTGender Identity Not on fileSexual OrientationNot on file Last Filed Vital Signs Vital SignReadingTime TakenCommentsBlood Tkntugfg755/80006/29/2023 11:45 AM EDT Pulse--Temperature--Respiratory Rate--Oxygen Saturation--Inhaled Oxygen Concentration--Bsgbzj12.2 kg (194 lb 6.4 oz)06/29/2023 11:45 AM YEXWojuok665.3 cm (5' 9 )03/18/2022 12:00 PM ESTBody Mass Index28.7103/18/2022 12:00 PM EST Plan of Treatment DateTypeDepartmentCare Team (Latest Contact Info)Zfvbelbqllw44/16/2026 10:30 AM EDTOffice Visit [facility] [address] [place] [address] [address] Brianna Barrios DO [address] [address] Health MaintenanceDue DateLast DoneCommentsCT Bxwwgxwkdwkz65/02/1952Colonoscopy 2Colorectal Cancer Aizheuobm79/02/1952FIT-DNA1951FIT1951 FOBT1951 0054Jszorztbwypig35/02/1952OVID-19 Vaccine ( season) /, 03/25/2021, 07/12/2020, Additional history existsInfluenza Vaccine (#1), 02/08/2020, 02/23/2018, Additional history nyeeeyVomfspgrr32, 08/05/2023, 02/28/2022, Additional history existsPneumococcal Vaccine: 65+ DplviSzstxteav31/31/2017, 02/24/2017, 02/05/2017 Procedures Procedure NamePriorityDate/TimeAssociated DiagnosisCommentsBI MAMMOGRAM SCREENING TOMOSYNTHESIS RCOXFGLZVUvhyuat13/15/2025 10:56 AM EDT Encounter for other screening [...] IS VERY IMPORTANT TO YOUR HEALTH. ??THE [employer] GUIDELINES RECOMMEND THAT WOMEN 40 [...] IS VERY IMPORTANT TO YOUR HEALTH. THE [employer] GUIDELINES RECOMMEND THAT WOMEN 40 YEARS OF AGE AND OLDER SHOULD HAVE AMAMMOGRAM EVERY YEAR. A REMINDER LETTER WILL BE SENT AT THE APPROPRIATE TIME. ELECTRONICALLY SIGNED BY: Amilcar Ling M.D. Authorizing ProviderResult TypeResult StatusDokaran MORALES BI PROCEDURES Final Result from Last 3 Months Insurance Care Teams Team MemberRelationshipSpecialtyStart DateEnd Leander Carrizlaes MD [address] [place] [address] PCP - GeneralFamily Medicine06/11/23
== END 2025-02-28 09:45 | disposition home or self-care (01) ==
LOC: WC 09:44
PROVIDERS: PCP Family Medicine; Visit Provider Physician Assistant
DX: L97.412 Non-pressure chronic ulcer of right heel and midfoot with fat layer exposed (principal); L98.495 Non-pressure chronic ulcer of skin of other sites with muscle involvement without evidence of necrosis; L97.415 Non-pressure chronic ulcer of right heel and midfoot with muscle involvement without evidence of necrosis
CPT/HCPCS: 11042